=== PATIENT | female | born 1970 | race Caucasian/White ===

== ENCOUNTER 2018-03-14 12:11 | Outpatient (REF) | payer MEDICAID, SELFPAY ==
[2018-03-14 18:14] LABS: HCT 42.4 % (36.0-46.0); HGB 14.5 g/dL (12.0-15.5); Mean Corp. HGB Concentration 34.2 g/dL (32.0-36.0); Mean Corpuscular Hemoglobin 29.2 pg (27.0-33.0); Mean Corpuscular Volume 85.5 fL (80-95); Platelet Count 269 x1000/uL (130-400); RBC 4.96 m/cumm (4.00-5.20); RBC Distribution Width 13.4 % (11.7-14.6)
[2018-03-14 18:46] LABS: ALT 20 U/L (12-78); AST 15 U/L (15-37); Albumin 3.6 g/dL (3.4-5.0); Alkaline Phosphatase 96 U/L (46-116); Anion Gap 11.3 mmol/L (3-11); BUN 13 mg/dL (7-18); Bilirubin, Total 0.4 mg/dL (0.2-1.0); CO2 26.7 mmol/L (21.0-32.0); CREATININE 0.72 mg/dL (0.55-1.02); Calcium 9.7 mg/dL (8.5-10.1); Chloride 98 mmol/L (98-107); Glucose 268 mg/dL (70-100); Potassium 4.6 mmol/L (3.5-5.1); Sodium 136 mmol/L (136-145); Total Protein 7.2 g/dL (6.4-8.2); Vitamin B12 621 pg/mL (193-986)
== END 2018-03-14 12:31 ==
LOC: NCHCN 12:11
PROVIDERS: PCP Nurse Practitioner Family; Visit Provider Nurse Practitioner Family
DX: I10 Essential (primary) hypertension (principal); E11.65 Type 2 diabetes mellitus with hyperglycemia; F10.10 Alcohol abuse, uncomplicated
CPT/HCPCS: 80053; 85027; 82607

== ENCOUNTER 2018-04-07 18:16 | Outpatient (REF) | payer MEDICAID, SELFPAY | END 2018-04-07 18:36 | LOC: NCHCN 18:16 | PROVIDERS: PCP Nurse Practitioner Family; Visit Provider Nurse Practitioner Family | DX: H60.313 Diffuse otitis externa, bilateral (principal) | CPT/HCPCS: 87077; 87070; 87186 ==

== ENCOUNTER 2023-06-12 11:15 | Inpatient (IN) | payer MEDICAID, SELFPAY ==
[2023-06-12] VITALS (19 sets, daily range): BP systolic 111–168; BP diastolic 45–105; PULSE 76–101; RESP 15–24; TEMP 36–37; O2SAT 92–100; BMI 31.8
--- NOTE | 2023-06-12 11:30 | DI.CT_ITS ---
Exam(s) CT PELVIC W EXAM: CT PELVIC W CLINICAL HISTORY: R buttock abscess. TECHNIQUE: Imaging Protocol: Axial computed tomography images with coronal and sagittal reformatted images were created and reviewed. CONTRAST MATERIAL: Intravenous: Omnipaque 350 Contrast volume:structured data in ml Contrast route:I V - Oral: / no COMPARISON: No exams were available for comparison FINDINGS: Exam mildly limited by motion. Bladder:Romo catheter partially decompressing the bladder. No gross wall thickening. No stones.No e vidence of mass. Aorta: Yjwm-km-vwthrtmi atherosclerotic changes. Bowel: No obstruction or bowel wall thickening. Peritoneal cavity: No ascites, collection or mesenteric inflammatory response. Reproductive: Unremarkable. Bones: Degenerative changes at L5-S1. No bony destruction. Soft tissues: Extensive soft tissue air seen in the right buttock. There is marked skin thickening a nd edema in the subcutaneous fat. The findings extend over a roughly 20 centimeter area. There is n o involvement of the posteromedial buttock extending to the right perianal region. No abnormal gas c ollection within the pelvis. IMPRESSION: Extensive infection with large quantity of gas and edema within the inferomedial right buttock. Findings called to Dr. Noble of the emergency department. RADIATION DOSE DELIVERED: 544.43mGy.cm Total DLP DATA REPOSITORY: All CT scans at this facility are submitted to the National Radiology Data Registry (NRDR) Dose Index Registry (DIR) with the [employer] (A[employer]). RADIATION OPTIMIZATION: All CT scans at this facility use at least one of these dose optimization te chniques: automated exposure control; mA and/or kV adjustment per patient size (includes targeted exa ms where dose is matched to clinical indication); or iterative reconstruction.
--- NOTE | 2023-06-12 11:44 | W.ED.GENAD ---
Discharge Plan Disposition Patient Disposition: Admit to [facility] Condition: Serious Discharge Details Clinical Impression: Necrotizing fasciitis Attending Provider: Blaze Dooley Primary Care Provider: Unknown,Unknown ED Provider: Lily Huerta [facility] General Date/Time Provider Initiated Documentation: 06/12/23 11:19. HPI Narrative: Jennifer is a 52-year-old female with history of COPD and T2DM (currently not on any medication) who presents to the emergency department for evaluation of weakness and right buttock pain. She reports 5 days ago she noticed a spider bite on her right buttock, says it felt hot and warm. She did not look at it at that time, not quite sure how big it was when it first started but says it was painful to touch. It has been increasing in size since onset. Starting 3 days ago she has developed generalized weakness to the point where she is no longer able to get out of bed to get to the commode. She has been laying in bed for the last 3 days. She reports she has had limited p.o. intake due to lack of appetite, says she has been drinking some water and ivette daniela. She reports she has had chills/sweats, no recorded fevers. Denies URI symptoms, cough, shortness of breath, chest pain, nausea/vomiting, abdominal pain, change in bowel or bladder function. Related Data Home Medications Medication Instructions Recorded Confirmed Unknown [No Known Home Meds] 09/26/21 06/12/23 Allergies Allergy/AdvReac Type Severity Reaction Status Date / Time aspirin Allergy Intermediate lip Unverified 06/12/23 12:54 swelling Penicillins Allergy Intermediate lip Unverified 06/12/23 12:54 swelling duloxetine HCl AdvReac Severe suicidal Unverified 06/12/23 12:54 [From Cymbalta] ideations pregabalin [From Lyrica] AdvReac Severe suidial Unverified 06/12/23 12:54 ideations codeine AdvReac Mild Nausea Unverified 06/12/23 12:54 General Stated Complaint: GenMedical JESUS: 3 Review of Systems Narrative: see HPI Exam Const General: cooperative, disheveled and other (uncomfortable) Nutritional Appearance: obese Orientation: alert HENMT Mouth: other (tacky MM) Resp Effort & Inspection: normal respiratory effort and able to speak in complete sentences Auscultation: rhonchi (course lung sounds in all nicole) Cardio Rate: regular rate Rhythm: regular rhythm GI Inspection: normal to inspection and obesity Palpation: soft, not firm, no guarding, not rigid and nontender Back/Spine/Pelvis Pelvis: buttock swelling (large area of induration with warmth to R buttock along gluteal cleft) on the right Course Vital Signs Vital signs: Vital Signs Temperature 36.8 C 06/12/23 11:17 Pulse 101 H 06/12/23 11:17 Respiratory Rate 20 06/12/23 11:17 Blood Pressure 168/105 H 06/12/23 11:17 Pulse Oximetry 100 06/12/23 11:17 Temperature 36.8 C 06/12/23 11:17 Temperature Source Tympanic 06/12/23 11:17 Pulse 101 H 06/12/23 11:17 Respiratory Rate 18 06/12/23 11:35 Respiratory Effort Normal 06/12/23 11:35 Respiratory Depth Normal 06/12/23 11:35 Respiratory Pattern Normal 06/12/23 11:35 Blood Pressure 168/105 H 06/12/23 11:17 Blood Pressure Position Sitting 06/12/23 11:17 Pulse Oximetry 100 06/12/23 11:17 Oxygen Delivery Method Room Air 06/12/23 11:17 Oxygen Flow Rate 0 06/12/23 11:17 Pain Level 10 06/12/23 11:17 Lab/Test Results Lab/Test Results: 06/12/23 11:39 Blood Blood Culture - Pending 06/12/23 11:39 Blood Blood Culture - Pending Medical Decision Making Jennifer is a 52-year-old female with history of COPD and T2DM (currently not on any medication) who presents to the emergency department for evaluation of weakness and right buttock pain. She reports 5 days ago she noticed a spider bite on her right buttock, says it felt hot and warm. She did not look at it at that time, not quite sure how big it was when it first started but says it was painful to touch. It has been increasing in size since onset. Starting 3 days ago she has developed generalized weakness to the point where she is no longer able to get out of bed to get to the commode. She has been laying in bed for the last 3 days. She reports she has had limited p.o. intake due to lack of appetite, says she has been drinking some water and ivette daniela. She reports she has had chills/sweats, no recorded fevers. Denies URI symptoms, cough, shortness of breath, chest pain, nausea/vomiting, abdominal pain, change in bowel or bladder function. Physical exam remarkable for large erythematous tense area on right buttock comprising most of the buttock. No drainage. Area is warm to touch, very tender to palpation. 5 out of 5 muscle strength to lower extremities, sensation intact. Abdomen soft, nondistended, nontender to palpation. Easy work of breathing, coarse wheezes throughout. Normal heart sounds. Tacky mucus membranes. She was noted to be laying in her own stool and urine upon arrival to the ED. DDx includes but is not limited to abscess, necrotizing fasciitis, sepsis due to infection, viral illness I independently interpreted the following tests: CBC notable for leukocytosis with WBC 40.57. CMP notable for hyponatremia, NA 120. AG 15.4. Elevated BUN: creat ratio (31:1). Alk phosp elevated at 231. Lactate 2.1. UA notable for 20-50 WBCs with many bacteria, concerning for UTI. CT notable for gas and edema within the inferomedial R buttock. While in the emergency department Jennifer received IV fluids for rehydration and acetaminophen/morphine for discomfort. Vancomycin, aztreonam, and clindamycin given for empiric treatment of necrotizing fasciitis. Dr Noble also to bedside for pt evaluation. Dr Dooley, general surgeon consulted pt at bedside- pt to be taken to OR for treatment of necrotizing fasciitis with admission to ICU. Imaging Data Radiologic Study: Radiologist's impression: Exam(s) CT PELVIC W EXAM: CT PELVIC W CLINICAL HISTORY: R buttock abscess. TECHNIQUE: Imaging Protocol: Axial computed tomography images with coronal and sagittal reformatted images were created and reviewed. CONTRAST MATERIAL: Intravenous: Omnipaque 350 Contrast volume:structured data in ml Contrast route:IV - Oral: / no COMPARISON: No exams were available for comparison FINDINGS: Exam mildly limited by motion. Bladder:Romo catheter partially decompressing the bladder. No gross wall thickening. No stones.No evidence of mass. Aorta: [id number] atherosclerotic changes. Bowel: No obstruction or bowel wall thickening. Peritoneal cavity: No ascites, collection or mesenteric inflammatory response. Reproductive: Unremarkable. Bones: Degenerative changes at L5-S1. No bony destruction. Soft tissues: Extensive soft tissue air seen in the right buttock. There is marked skin thickening and edema in the subcutaneous fat. The findings extend over a roughly 20 centimeter area. There is no involvement of the posteromedial buttock extending to the right perianal region. No abnormal gas collection within the pelvis. IMPRESSION: Extensive infection with large quantity of gas and edema within the inferomedial right buttock. Findings called to Dr. Noble of the emergency department. 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 (Acute) Other noninfective acute otitis externa, bilateral (Acute) Tobacco use (Acute) Mixed hearing loss, bilateral (Acute) Medical History Chronic abscess of jaw COPD (chronic obstructive pulmonary disease) Depression Diabetes Hypertension Neuropathy Obesity Surgical History Incision & Drainage, Abscess or Hematoma left jaw-10/07 Social History Smoking/Tobacco Use Status: Current every day Tobacco Type: cigarettes Smoking risk assessment performed?: Yes Alcohol Intake: current Alcohol Intake frequency: 0-2 drinks per day Alcohol type: beer Drug use: Daily Substance use type: marijuana Housing: apartment Do you feel safe in your relationship?: Yes
[2023-06-12] MEDS: Acetaminophen 325 MG TAB 650 MG PO (11:48)
[2023-06-12 11:53] LABS: BE (Venous) -1 mmol/L (-2-3); HCO3 (Venous) 23 mmol/L (23-28); HCT 33.6 % (36.0-46.0); MCH 31.2 pg (27.0-33.0); MCHC 35.7 % (32.0-36.0); MCV 87 fL (80-95); MPV 9.8 fL (8.0-11.0); O2 Sat (Venous) 63 %; Platelet Count 449 10^3/uL (130-400); RBC 3.85 10^6/uL (3.93-5.22); RDW 13.9 % (11.7-14.6); RDW-SD 43.9 fL; TCO2 (Venous) 21 mmol/L (24-29); pCO2 (Venous) 36 mmHg (41-51); pH (Venous) 7.42 (7.31-7.41); pO2 (Venous) 33 mmHg
[2023-06-12 11:58] LABS: Lactate 2.1 mmol/L (0.6-1.4)
[2023-06-12 12:06] LABS: Absolute Monocyte Count 0.81 10^3/uL (0.1-0.8)
[2023-06-12 12:09] LABS: HCG Qual (Serum) Negative; WBC 40.57 10^3/uL (4.4-10.8)
[2023-06-12 12:12] LABS: ALT 17 U/L (14-59); AST 21 U/L (15-37); Albumin 1.9 g/dL (3.4-5.0); Alkaline Phosphatase 231 U/L (46-116); Anion Gap 15.4 mmol/L (3-11); BUN 31 mg/dL (7-18); Bilirubin, Total 0.7 mg/dL (0.2-1.0); CO2 22.6 mmol/L (21.0-32.0); Calcium 8.7 mg/dL (8.5-10.1); Chloride 82 mmol/L (98-107); Estimated GFR 67.78 (mL/min/1.73m2); Glucose 171 mg/dL (74-106); Potassium 3.9 mmol/L (3.5-5.1); Total Protein 6.9 g/dL (6.4-8.2)
[2023-06-12 12:13] LABS: Sodium 120 mmol/L (136-145)
[2023-06-12 12:15] LABS: Bilirubin Negative (Negative); Blood Trace-intact (Negative); Clarity Sl Cloudy (Clear); Glucose Negative (Negative); Ketones 15 mg/dL (Negative); Leukocyte Esterase Negative (Negative); Nitrite Negative (Negative)
[2023-06-12] MEDS: MORPHine 10 MG/ML VIAL 2 MG IVP (12:24)
--- NOTE | 2023-06-12 12:31 | W.PM.HP.N ---
Date of service: 06/12/23 Time of Service: 12:31 Assessment and Plan Assessment and plan (1) Necrotizing fasciitis: Status: Acute Assessment and plan: Clinically, the appears consistent with necrotizing fasciitis of the skin overlying the buttock. Leukocytosis and hyponatremia would also support that diagnosis in addition to severe sepsis. I explained the urgency of the situation, and the importance of incision and drainage of the wound. I also explained my concerns about how this tracks up towards the rectum. Broad-spectrum antibiotics have already been initiated, and emergent surgical debridement is the neck step. I explained to the patient this is a very severe problem, and may require multiple operations, including creation of a colostomy if the pelvic floor is involved. I think she has an understanding of what is happening, and I think she is capable of providing informed consent. Will make arrangements to move to the operating room soon as possible, and anticipate admission to the intensive care unit thereafter. History of Present Illness History of Present Illness Chief Complaint: Buttock wound Narrative: Jennifer is 52 years old. She comes to the emergency department with increasing right-sided buttock pain. She thinks it started about 4 days ago. She thinks there was a wound associated, which she describes as a spider bite. At first, was just a little bit swollen and painful, however over the past 48 to 72 hours, she has been nearly bedbound with difficulty walking, and general feeling of malaise. She has no appetite. She denies nausea or vomiting. She denies subjective fevers. She has type 2 diabetes, and she denies any medications for this. She also reports hypertension. She smokes tobacco. She is never had any abdominal surgery. Review of Systems Constitutional Constitutional: Reports difficulty sleeping, Reports fatigue, Denies fever(s), Reports poor appetite and Reports weakness Eyes Eyes: Reports system reviewed and no additional complaints, except as documented ENT Ears, Nose, Mouth, and Throat: Reports system reviewed and no additional complaints, except as documented Cardiovascular Cardiovascular: Denies chest pain and Denies dyspnea Respiratory Respiratory: Denies chest congestion, Denies cough and Denies dyspnea Gastrointestinal Gastrointestinal: Denies abdominal pain, Denies change in stool character, Denies constipation, Denies nausea and Denies vomiting Musculoskeletal Musculoskeletal: Reports abnormal gait and Reports myalgias Neurologic Neurologic: Reports abnormal gait and Reports weakness Psychiatric Psychiatric: Reports change in appetite Endocrine Endocrine: Reports fatigue Hematologic/Lymphatic Hematologic/Lymphatic: Denies easy bleeding and Denies easy bruising 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 (Acute) Other noninfective acute otitis externa, bilateral (Acute) Tobacco use (Acute) Mixed hearing loss, bilateral (Acute) Medical History Chronic abscess of jaw COPD (chronic obstructive pulmonary disease) Depression Diabetes Hypertension Neuropathy Obesity Surgical History Incision & Drainage, Abscess or Hematoma left jaw-10/07 Social History Smoking/Tobacco Use Status: Current every day Tobacco Type: cigarettes Smoking risk assessment performed?: Yes Alcohol Intake: current Alcohol Intake frequency: 0-2 drinks per day Alcohol type: beer Drug use: Daily Substance use type: marijuana Housing: apartment Do you feel safe in your relationship?: Yes Meds Allergies and Home Medications Allergies Allergy/AdvReac Type Severity Reaction Status Date / Time aspirin Allergy Intermediate lip Unverified 06/12/23 12:54 swelling Penicillins Allergy Intermediate lip Unverified 06/12/23 12:54 swelling duloxetine HCl AdvReac Severe suicidal Unverified 06/12/23 12:54 [From Cymbalta] ideations pregabalin [From Lyrica] AdvReac Severe suidial Unverified 06/12/23 12:54 ideations codeine AdvReac Mild Nausea Unverified 06/12/23 12:54 Home Medications Medication Instructions Recorded Confirmed Type Unknown [No Known Home Meds] 09/26/21 06/12/23 History Exam Const General: cooperative, ill appearing and lethargic Nutritional Appearance: overweight Orientation: alert and awake [facility] Head: normal to inspection Ears: external ears normal and hearing grossly impaired Eyes General: appearance normal, both eyes and all related structures Neck Neck: normal visual inspection, full ROM and no lymphadenopathy Resp Effort & Inspection: decreased respiratory effort Auscultation: clear to auscultation bilaterally Cardio Rate: regular rate Rhythm: regular rhythm Skin Other: The right buttock is erythematous and fluctuant. There is subcutaneous crepitus. There is 1 dark hemorrhagic appearing bullae. There is no obvious discharge. Perineum is soft and normal-appearing. Labia are normal-appearing. Results Labs 06/12/23 11:40 06/12/23 11:40 Labs: Laboratory Results - last 24 hr 06/12/23 06/12/23 11:40 12:00 VBG pH 7.42 H VBG pCO2 36 L VBG pO2 33 VBG HCO3 23 VBG Total CO2 21 L VBG O2 Saturation 63 VBG Base Excess -1 VBG Lactate 2.1 H Sodium 120 L* Potassium 3.9 Chloride 82 L Carbon Dioxide 22.6 Anion Gap 15.4 H BUN 31 H Creatinine 1.0 Est GFR (CKD-EPI 2020) 67.78 Glucose 171 H Calcium 8.7 Total Bilirubin 0.7 AST 21 ALT 17 Alkaline Phosphatase 231 H Total Protein 6.9 Albumin 1.9 L Serum HCG, Qual Negative Urine Color Yellow Urine Clarity Sl Cloudy Urine pH 5.0 Ur [address] [place] 1.010 Urine Protein 100 H Urine Ketones 15 H Urine Blood Trace-intact H Urine Nitrite Negative Urine Bilirubin Negative Urine Urobilinogen 1.0 H Ur Leukocyte Esterase Negative Urine Glucose Negative Last Vital Signs Temp 98.3 F 06/12/23 11:17 Pulse 101 H 06/12/23 11:17 Resp 18 06/12/23 11:35 BP 168/105 H 06/12/23 11:17 Pulse Ox 100 06/12/23 11:17 Time Spent Time spent with Patient: 55-74 minutes Time was spent: preparing to see the patient(eg.review tests), obtaining and/or reviewing separately otained hiistory, referring, communicating with other health care companion, indepentently interpreting results, counseling the patient and care coordination
[2023-06-12] MEDS: Omnipaque 350 MG/ML 500 ML BTL-Imaging package IJ (12:34)
[2023-06-12 12:40] LABS: WBC 20-50 HPF (0-5)
[2023-06-12 12:41] LABS: Bacteria Many HPF (Negative); Epithelial Cells Rare HPF (Negative); Other Cells Negative (Negative)
[2023-06-12 12:42] LABS: C & S Indicated? Yes; Casts Negative LPF (Negative); Crystals Negative HPF (Negative); Mucus Negative (Negative)
[2023-06-12] MEDS: Normal Saline - Diluent 50 ML VIAL IJ (12:42)
[2023-06-12 12:43] LABS: Absolute Lymphocyte Count 3.65 10^3/uL (1.2-3.4); Absolute Neutrophil Count 36.11 10^3/uL (1.2-6.7); Atypical Lymphocytes % 1; Bands % 4
[2023-06-12] MEDS: Normal Saline Flush 10 ML SYR IJ (12:43)
[2023-06-12 12:44] LABS: Procalcitonin 1.6 ng/mL
[2023-06-12 12:44] LABS: Diff Comment Manual Differential; RBC Morphology Normal
[2023-06-12] MEDS: VANCOMYCIN/WATER (PEG) 1.25 GM/250 ML BAG IVPB (12:47)
[2023-06-12] MEDS: Normal Saline 1,000 ML 500 ML IV (12:48)
[2023-06-12] MEDS: CLINDAMYCIN 900 MG/50 ML BAG 50 MG IVPB (12:48)
--- NOTE | 2023-06-12 12:50 | ED.PROG_ITS ---
Date of service: 06/12/23 Time of Service: 12:50 Medical Decision Making I was asked to evaluate the patient by advanced practitioner Lily, please refer to her HPI, physical exam, assessment and plan. Patient presents with gluteal cleft lesion on the right, concern for potential necrotizing fasciitis. She is a diabetic. Patient's vital signs are notably stable, exam demonstrates evidence of a large fluctuant area on her right gluteal cleft, no subcutaneous crepitus I can palpate, however the nature of the fluctuance is highly concerning. There is also bruising on the distal aspect. Differential is high for necrotizing fasciitis in this scenario. Isolated abscess is a less likely scenario. Will recommend starting broad-spectrum antibiotics, patient does have a notable penicillin allergy, will start with vancomycin, aztreonam, and clindamycin for antitoxin limitation. CT scan will be ordered. Laboratory workup is returned, patient has a white count of 40, and is hyponatremic, lactate is only 2.1, however with a combination of the elevated white count, notable left shift, 4 bands, and the hyponatremia differential is very concerning for active necrotizing fasciitis. Will reach out to Dr. Dooley for emergent surgical options and debridement. 12:[address] scan shows evidence of notable gas, confirming diagnosis. Dr. Dooley has evaluated the patient will bring her emergently to the OR for further drainage. I agree with the current plan of management at the time of signing. Quality:SDOH Health Related Social Needs: No Data to Display Critical Care Time Critical Care Time Critical Care Time: Yes Total Critical Care Time: 90 Attestation: Upon my evaluation, this patient had a high probability of imminent or life- threatening deterioration, which required my direct attention, intervention, and personal management. I have personally provided 90 minutes of critical care time exclusive of time spent on separately billable procedures. Time includes review of laboratory data, radiology results, discussion with consultants, and monitoring for potential decompensation. Interventions were performed as documented. Discharge Plan Disposition Patient Disposition: Admit to [facility] Condition: Serious Discharge Details Chief Complaint: GenMedical Clinical Impression: Necrotizing fasciitis Primary Care Provider: Unknown,Unknown ED Provider: Lily Huerta Home Meds and New Rx's Prescriptions: No Action No Known Home Meds
--- NOTE | 2023-06-12 13:02 | ANES.PREOP_ITS ---
General Info Date of Service Date Performed: 06/12/23 Height: 5 ft 3 in Weight: 81.647 kg Body Mass Index (BMI): 31.8 Surgical Procedure: Operation Date: 06/12/23 13:40 Proposed Procedure Side Surgeon p I&D Buttock Right Blaze Dooley MD Meds Allergies and Home Medications Allergies Allergy/AdvReac Type Severity Reaction Status Date / Time aspirin Allergy Intermediate lip Unverified 06/12/23 12:54 swelling Penicillins Allergy Intermediate lip Unverified 06/12/23 12:54 swelling duloxetine HCl AdvReac Severe suicidal Unverified 06/12/23 12:54 [From Cymbalta] ideations pregabalin [From Lyrica] AdvReac Severe suidial Unverified 06/12/23 12:54 ideations codeine AdvReac Mild Nausea Unverified 06/12/23 12:54 Home Medication Medication Instructions Recorded Unknown [No Known Home Meds] 09/26/21 Current Visit Medications: Current Medications Generic Name Dose Route Start Last Admin Trade Name Freq PRN Reason Stop Dose Admin Sodium Chloride 1,000 mls @ 500 mls/hr 06/12/23 11:39 06/12/23 12:48 Saline 1000ml Bag IV 06/12/23 13:38 500 mls/hr BOLUS ONE Administration Vancomycin/PEG/NADA/Lysine/Water 1.25 gm in 250 mls @ 166.667 mls/hr 06/12/23 12:30 06/12/23 12:47 Vancocin Injection IVPB 06/12/23 13:59 166.667 mls/hr NOW ONE Administration Iohexol 500 ml 06/12/23 12:45 06/12/23 12:34 Omnipaque 350 Mg/Ml 500 Ml Btl-Imaging Package IJ 07/12/23 23:59 100 ml DIRECTED JANNA Administration Sodium Chloride 50 ml 06/12/23 12:45 06/12/23 12:42 Normal Saline - Diluent 50 Ml Vial IJ 50 ml .FOR DI USE JANNA Administration Sodium Chloride 0 ml 06/12/23 12:43 06/12/23 12:43 Normal Saline Flush 10 Ml Syr IJ 10 ml PRN PRN Administration PFSH Active Problems Active Problems: Problem Status Onset Code Necrotizing fasciitis M72.6 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 Impacted cerumen, left ear H61.22 Chronic otitis externa of right ear H60.61 Chronic serous otitis media H65.20 Chronic dysfunction of both eustachian tubes H69.83 Chronic otitis externa of left ear H60.62 Impacted cerumen, bilateral H61.23 Chronic diffuse otitis externa of both ears H60.313 Otorrhea, right ear H92.11 Mass of left ear canal H93.8X2 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 H66.13 Other noninfective acute otitis externa, bilateral H60.593 Tobacco use Z72.0 Mixed hearing loss, bilateral H90.6 Medical History Medical History Chronic abscess of jaw COPD (chronic obstructive pulmonary disease) Depression Diabetes Hypertension Neuropathy Obesity Surgical History Surgical History Incision & Drainage, Abscess or Hematoma left jaw-10/07 Tobacco Smoking/Tobacco Use Status: Current every day Tobacco Type: cigarettes Alcohol Alcohol Intake: current Alcohol intake frequency: 0-2 drinks per day Alcohol type: beer Substance Use Substance use: Daily Substance use type: marijuana Vital Signs and Lab Results Vital Signs Most Recent Vital Signs in EMR: Most Recent Vital Signs Temp Pulse Resp BP Pulse Ox 36.8 C 95 H 20 156/45 H 99 06/12/23 12:58 06/12/23 12:58 06/12/23 12:58 06/12/23 12:57 06/12/23 12:58 Point of Care Results Point of Care Results: POC- Test(urine) Negative 06/12/23 12:24 Lab Results 06/12/23 11:40 06/12/23 11:40 Blood Type / Crossmatch: 2 No Data to Display Complete Blood Count: 2 White Blood Count 40.57 10^3/uL (4.4-10.8) H* 06/12/23 11:40 Red Blood Count 3.85 10^6/uL (3.93-5.22) L 06/12/23 11:40 Hemoglobin 12.0 g/dL (11.2-15.7) 06/12/23 11:40 Hematocrit 33.6 % (36.0-46.0) L 06/12/23 11:40 Platelet Count 449 10^3/uL (130-400) H 06/12/23 11:40 Venous Blood Lactate 2.1 mmol/L (0.6-1.4) H 06/12/23 11:40 Complete Metabolic Panel: 2 Sodium 120 mmol/L (136-145) L* 06/12/23 11:40 Potassium 3.9 mmol/L (3.5-5.1) 06/12/23 11:40 Chloride 82 mmol/L (98-107) L 06/12/23 11:40 Carbon Dioxide 22.6 mmol/L (21.0-32.0) 06/12/23 11:40 BUN 31 mg/dL (7-18) H 06/12/23 11:40 Creatinine 1.0 mg/dL (0.55-1.02) 06/12/23 11:40 Est GFR (CKD-EPI 2020) 67.78 (mL/min/1.73m2) 06/12/23 11:40 Calcium 8.7 mg/dL (8.5-10.1) 06/12/23 11:40 Albumin 1.9 g/dL (3.4-5.0) L 06/12/23 11:40 Glucose 171 mg/dL (74-106) H 06/12/23 11:40 Liver Function Panel: 2 Alanine Aminotransferase (ALT/SGPT) 17 U/L (14-59) 06/12/23 11: 40 Aspartate Amino Transf (AST/SGOT) 21 U/L (15-37) 06/12/23 11:40 Coagulation Panel: 2 No Data to Display Cardiac Panel: 2 No Data to Display Arterial Blood Gas: 2 No Data to Display Venous Blood Gas: 2 Venous Blood pH 7.42 (7.31-7.41) H 06/12/23 11:40 Venous Blood Partial Pressure O2 33 mmHg 06/12/23 11:40 Venous Blood Partial Pressure CO2 36 mmHg (41-51) L 06/12/23 11 :40 Venous Blood Oxygen Saturation 63 % 06/12/23 11:40 Venous Blood HCO3 23 mmol/L (23-28) 06/12/23 11:40 Venous Blood Base Excess -1 mmol/L (-2-3) 06/12/23 11:40 Venous Blood Total Carbon Dioxide 21 mmol/L (24-29) L 06/12/23 11:40 Pancreas Panel: 2 No Data to Display Thyroid Panel: 2 No Data to Display Infectious Disease: 2 No Data to Display Blood Cultures: 2 No Data to Display Toxicology Panel: 2 No Data to Display Panel: 2 Serum HCG, Qualitative Negative 06/12/23 11:40 Anesthesia Assessment and Plan Anesthesia History Personal History: No History of Anesthesia Complications Family History: No Family History of Anesthesia Complications Exercise Tolerance Exercise Tolerance: Metabolic Equivalents>4 Pertinent Negatives Pertinent Negatives: No Symptoms of GERD, No Major Cardiovascular Symptoms or Complaints and No History of CVA/TIA Cardiac & Pulmonary Exam Cardiac Exam: Normal S1/S2 Heart Sounds Pulmonary Exam: Clear Bilateral Breath Sounds Implantable Cardiac Device Does patient have a Pacemaker or an ICD?: No Airway Exam Known Difficult Airway: No Mallampati Class: 2 Mouth Opening: Normal (> 3cm) Thyromental Distance: Greater than 3 cm Neck Range of Motion: Full ROM Neck Circumference: Normal Teeth Condition: Removable Dentures/Plates Upper and Removable Dentures/Plates Lower ASA Classification ASA Score: ASA 3 Emergency Case?: Yes NPO Status NPO Status: NPO Clears >2 hours, Solids >8 hours Status Status: Negative HCG Anesthesia Plan Resuscitation Status: Full Code Anesthesia Technique: General Anesthesia Airway Planned: Endotracheal Tube Monitors Used: Standard Monitors, Arterial Line and Central Line
[2023-06-12] MEDS: Normal Saline 1,000 ML 30 ML IV (13:51)
[2023-06-12] MEDS: Normal Saline Flush 10 ML SYR IVP ×2 (15:57→23:55)
[2023-06-12] MEDS: HYDROmorphone 2 MG/ML SYR 1 MG IVP ×2 (15:58→19:38)
[2023-06-12] MEDS: Ketorolac 15 MG/ML VIAL IVP (15:59)
[2023-06-12] MEDS: Lactated Ringers 1,000 ML 100 ML IV (16:00)
[2023-06-12] MEDS: Enoxaparin 40 MG/0.4 ML SYR SC (16:00)
[2023-06-12 16:17] LABS: Anion Gap 14.1 mmol/L (3-11); BUN 29 mg/dL (7-18); CO2 20.9 mmol/L (21.0-32.0); CREATININE 0.8 mg/dL (0.55-1.02); Calcium 7.9 mg/dL (8.5-10.1); Chloride 88 mmol/L (98-107); Glucose 177 mg/dL (74-106); Potassium 3.8 mmol/L (3.5-5.1)
[2023-06-12 16:21] LABS: Sodium 123 mmol/L (136-145)
--- NOTE | 2023-06-12 16:34 | W.PM.OP ---
Date of service: 06/12/23 Time of Service: 15:36 Operative Note Operative Note DATE OF PROCEDURE: 06/12/23 PRE-OP DIAGNOSIS: Necrotizing fasciitis POST-OP DIAGNOSIS: same PROCEDURE: Incision, drainage, and debridement of right buttock necrotizing fasciitis SURGEON: Blaze Dooley ANESTHESIA TYPE: Local By Surgeon and General LMA/ETT Refer to Anesthesia Record ESTIMATED BLOOD LOSS: 25 PATHOLOGY: other (Gram stain and culture of right buttock necrotizing fasciitis) COMPLICATIONS: None Patient was transported to: ICU Patient's condition: critical Indications: Miah is a 52-year-old woman who comes to the hospital 4 days of increasing buttock pain. Physical exam raise a concern for necrotizing fasciitis. She had a white blood cell count of 40,000, and hyponatremia. She underwent a CT scan that demonstrated infiltration of the soft tissues of the right buttock extending towards the rectum with a significant amount of subcutaneous emphysema and inflammation. She is brought to the operating room urgently for incision and drainage of the wound. Findings: Loculated necrotizing soft tissue infection of the right buttock Procedure Description: After the induction of general endotracheal anesthesia, the patient was moved onto the operating room table, and placed in the left lateral decubitus position. Great care was taken to pad and support her appropriately. Next, the the right buttock was prepped from the right hip down to the left buttock. The prep was continued down onto the posterior portion of the thigh and the perineum. Patient was then draped. Started with a anorectal examination. There are some perianal skin tags, and 1 small portion of the soft tissue that raises some concern for condyloma. Digital rectal exam was performed. No masses were appreciated. I then changed my gloves, and turned my attention to the right buttock abscess. I tried to establish as much of field block as I could using local anesthetic with epinephrine. Next, I sharply incised the central point of fluctuance which coincided with a small hemorrhagic bullae. There was a large volume drainage of foul-smelling dishwater type purulent fluid. Specimens were obtained for Gram stain and culture. Next, using my finger, I gently palpated the wound. There were loculations extending throughout the soft tissue that were easily lysed. The skin of the buttock was undermined laterally for several centimeters. Next, using electrocautery, I excised a portion of the devitalized skin and subcutaneous soft tissues. There was thick purulent fibrinous exudate on the underlying fat and subcutaneous tissues. Using a combination of blunt dissection, as well as electrocautery, I debrided back to bleeding viable tissue. The wound tracks towards the rectum, but I do not see any obvious signs of rectal wall involvement. Once the tissue was grossly debrided, I used a combination of hydrogen peroxide and saline solution to irrigate the bed of the wound is clean as I could. Dimensions of the wound are approximately 10 cm top to bottom by 10 cm left to right by approximately 8 cm at its greatest depth, although the bottom of the wound is quite difficult to measure given irregular contour of it. Once this was complete, I packed the wound with Betadine soaked Curlex. Next, I used a Flexi-Seal rectal management device to help promote drainage of the rectal vault and to help manage stool. This was placed according to the onboarding specialist's instructions without any difficulty. The rectum was irrigated with approximately 100 mL of sterile water. ABD pads were then placed on top of the Curlex, and secured in place with tape. The patient was then rolled back to the supine position on a hospital bed for extubation. She was then transferred up to the surgical intensive care unit for ongoing treatment of severe sepsis.
[2023-06-12] MEDS: Insulin Aspart 300 UNITS/3 ML PEN SC ×2 (17:46→21:31)
--- NOTE | 2023-06-12 18:18 | NUR.NOTE ---
Nursing Note: Patient reports having left arm and left leg weakness and tingling on March 282023. She states she did not come to the hospital for evaluation when this happened. She reports her left extremities have been weak and intermittently tingly since March 282023.
[2023-06-12] MEDS: CLINDAMYCIN 600 MG/50 ML BAG 100 MG IVPB (19:37)
--- NOTE | 2023-06-12 19:37 | W.ANESPOSTOP ---
Postoperative Evaluation Date, Time and Location Date Performed: 06/12/23 Time Performed: 15:10 Patient Location: Intensive Care Unit Vital Signs Most Recent Imported Vital Signs: Most Recent Vital Signs Temp Pulse Resp BP Pulse Ox 37.0 C 86 15 111/67 98 06/12/23 15:30 06/12/23 19:02 06/12/23 19:02 06/12/23 19:02 06/12/23 19:02 Pain Score Most Recent Pain Score: Most Recent Pain Score Pain Level 4 06/12/23 16:59 Assessment Mental Status: Awake (Alert & Oriented to Patient Baseline) Airway and Respiratory Function: Patent airway with normal (patient baseline) respiratory exam Cardiovascular Function: Hemodynamically Stable Hydration Status: Adequately Hydrated Nausea & Vomiting: No Nausea or Vomiting Pain: Pain is tolerable per patient Peripheral Nerve Block: Patient did not receive a nerve block
[2023-06-12] MEDS: Polyethylene Glycol 3350 17 GM PACKET PO (19:38)
[2023-06-12] MEDS: Acetaminophen 500 MG TAB 1000 MG PO (19:38)
[2023-06-12 19:53] LABS: Anion Gap 11.1 mmol/L (3-11); BUN 34 mg/dL (7-18); CO2 20.9 mmol/L (21.0-32.0); CREATININE 1.1 mg/dL (0.55-1.02); Calcium 7.8 mg/dL (8.5-10.1); Chloride 86 mmol/L (98-107); Estimated GFR 60.46 (mL/min/1.73m2); Glucose 311 mg/dL (74-106); Potassium 4.7 mmol/L (3.5-5.1)
[2023-06-12 19:55] LABS: Sodium 118 mmol/L (136-145)
[2023-06-12] MEDS: Normal Saline 1,000 ML 100 ML IV (20:47)
[2023-06-12] MEDS: Normal Saline 500 ML IV (20:51)
[2023-06-12] MEDS: VANCOMYCIN/WATER (PEG) 1 GM/200 ML BAG IV (23:29)
[2023-06-12 23:45] LABS: Anion Gap 11.1 mmol/L (3-11); BUN 35 mg/dL (7-18); CO2 22.9 mmol/L (21.0-32.0); Calcium 7.7 mg/dL (8.5-10.1); Chloride 85 mmol/L (98-107); Estimated GFR 67.78 (mL/min/1.73m2); Glucose 280 mg/dL (74-106)
[2023-06-12 23:47] LABS: Sodium 119 mmol/L (136-145)
[2023-06-13] VITALS (60 sets, daily range): BP systolic 85–146; BP diastolic 37–92; PULSE 68–90; RESP 12–30; TEMP 36–36.7; O2SAT 90–100; BMI 34.2
[2023-06-13] MEDS: HYDROmorphone 2 MG/ML SYR 1 MG IVP ×3 (00:49→19:53)
[2023-06-13] MEDS: Ketorolac 15 MG/ML VIAL IVP ×2 (04:17→16:17)
[2023-06-13] MEDS: Acetaminophen 500 MG TAB 1000 MG PO ×2 (04:17→20:31)
[2023-06-13] MEDS: CLINDAMYCIN 600 MG/50 ML BAG 100 MG IVPB ×3 (04:19→20:34)
[2023-06-13 06:03] LABS: Abs Immature Grans 1.12 10^3/uL (0.0-0.06); HCT 27.1 % (36.0-46.0); HGB 9.6 g/dL (11.2-15.7); MCH 31.5 pg (27.0-33.0); MCHC 35.4 % (32.0-36.0); MCV 89 fL (80-95); MPV 9.7 fL (8.0-11.0); Platelet Count 339 10^3/uL (130-400); RBC 3.05 10^6/uL (3.93-5.22); RDW 14.2 % (11.7-14.6); RDW-SD 46.1 fL
[2023-06-13 06:24] LABS: Anion Gap 10.2 mmol/L (3-11); BUN 34 mg/dL (7-18); CO2 21.8 mmol/L (21.0-32.0); CREATININE 0.9 mg/dL (0.55-1.02); Calcium 7.6 mg/dL (8.5-10.1); Chloride 88 mmol/L (98-107); Estimated GFR 76.92 (mL/min/1.73m2); Glucose 223 mg/dL (74-106)
[2023-06-13 06:26] LABS: Sodium 120 mmol/L (136-145)
[2023-06-13 06:29] LABS: WBC 34.52 10^3/uL (4.4-10.8)
[2023-06-13 06:30] LABS: Absolute Lymphocyte Count 0.69 10^3/uL (1.2-3.4); Absolute Monocyte Count 1.04 10^3/uL (0.1-0.8); Absolute Neutrophil Count 32.45 10^3/uL (1.2-6.7); Myelocytes % 1
[2023-06-13 06:31] LABS: Diff Comment Manual Differential; RBC Morphology Normal
[2023-06-13] MEDS: Normal Saline 1,000 ML 100 ML IV ×2 (06:58→20:31)
--- NOTE | 2023-06-13 08:25 | INITIAL_ITS ---
Date of service: 06/13/23 Time of Service: 08:25 Care Management Initial Assmt Initial Assessment REASON FOR HOSPITALIZATION:: necrotizing fasciitis PREVIOUS FUNCTIONAL STATUS/SOCIAL/FAMILY SUPPORTS:: Jennifer lives in an apartment in [place] with her Teja. She has 3 adult children but is not in regular contact with them. 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 She uses a walker for ambulation and is independent with ADLs and self care. CURRENT FUNCTIONAL STATUS:: Earle was lying in bed when CM met with her. She was polite but initially was not overly talkative. Earle does not have a primary care physician and has not been to the doctors in many years. She informed CM that she used to see someone at [facility] but is not sure if she is still active with their practice. Earle described an episode that occurred in March that has not been evaluated. She stated that one morning she sat on the side of her bed and realized that her left arm and leg were weak. She has had difficulty with ambulation since and now uses a walker. CM asked if she had sought medical care at the time but she stated that she did not. Earle went to the OR again this afternoon for further debridement of her wound. Per her nurse in the ICU, she will be transferred to [facility] [place] [place] when a bed becomes available. ADVANCE DIRECTIVES:: none Has patient been provided with info about the portal/API?: Yes Did the patient sign up for the portal?: No CODE STATUS:: Full Code INSURANCE COVERAGE / FINANCIAL ISSUES:: Medicaid CURRENT HOME/COMMUNITY SERVICES/EQUIPMENT:: uses a walker and has hearing aides PRIMARY CARE PHYSICIAN:: none currently past patient at [facility] POTENTIAL DISCHARGE NEEDS:: follow up with PCP and plan of care PATIENT/FAMILY EDUCATION NEEDS:: Review of discharge instructions, wound care, medications, limitations, follow up plan, discuss Ask me Three. TRANSPORTATION:: to be determined by disposition PLAN:: Anticipate Jennifer will be transferred to [facility] [place] [place] for further treatment of her necrotizing fasciitis. She will transport via EMS coordinated by nursing sanding supervisor. CM will follow and continue to support discharge planning. 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 (Acute) Other noninfective acute otitis externa, bilateral (Acute) Tobacco use (Acute) Mixed hearing loss, bilateral (Acute) Medical History Chronic abscess of jaw COPD (chronic obstructive pulmonary disease) Depression Diabetes Hypertension Neuropathy Obesity Surgical History Incision & Drainage, Abscess or Hematoma left jaw-10/07 Social History Smoking/Tobacco Use Status: Current every day Tobacco Type: cigarettes Smoking risk assessment performed?: Yes Alcohol Intake: current Alcohol Intake frequency: 0-2 drinks per day Alcohol type: beer Drug use: Daily Substance use type: marijuana Housing: apartment Do you feel safe in your relationship?: Yes SDOH(Care Management) Screening Will the Patient Participate in the Screening?: Yes Do you worry about having a steady place to live?: no Problems where you live: pests such as bugs, ants or mice, mold, lead paints of pipes and lack of heat In the past 12 months, have you had to go without electric, gas, oil or water in your home?: no Have you or anyone in your house had to go without enough food to eat?: no Has lack of transportation kept you from medical appointments or from doing things needed for daily living?: yes Has anyone in your support network made you feel unsafe for any reason?: no Health Related Social Needs Health related social needs: inadequate housing(Z59.1) and transportation insecurity(Z59.82)
[2023-06-13] MEDS: VANCOMYCIN/WATER (PEG) 1 GM/200 ML BAG IV (12:50)
--- NOTE | 2023-06-13 13:09 | ANES.PREOP_ITS ---
General Info Date of Service Date Performed: 06/13/23 Height: 5 ft 3 in Weight: 87.8 kg Body Mass Index (BMI): 34.2 Surgical Procedure: Operation Date: 06/12/23 13:40 Proposed Procedure Side Surgeon p I&D Buttock Right Blaze Dooley MD Actual Procedure Side Surgeon p I&D Buttock Right Blaze Dooley MD Pre-Op Diagnosis Post-Op Diagnosis Debridement Necrotizing Fasciitis Debridement Necrotizing Fasciitis Operation Date: 06/13/23 14:10 Proposed Procedure Side Surgeon p I&D Buttock Right Blaze Dooley MD Meds Allergies and Home Medications Allergies Allergy/AdvReac Type Severity Reaction Status Date / Time aspirin Allergy Intermediate lip Unverified 06/12/23 12:54 swelling Penicillins Allergy Intermediate lip Unverified 06/12/23 12:54 swelling duloxetine HCl AdvReac Severe suicidal Unverified 06/12/23 12:54 [From Cymbalta] ideations pregabalin [From Lyrica] AdvReac Severe suidial Unverified 06/12/23 12:54 ideations codeine AdvReac Mild Nausea Unverified 06/12/23 12:54 Home Medication Medication Instructions Recorded Unknown [No Known Home Meds] 09/26/21 Current Visit Medications: Current Medications Generic Name Dose Route Start Last Admin Trade Name Freq PRN Reason Stop Dose Admin Acetaminophen 1,000 mg 06/12/23 20:00 06/13/23 12:04 Acetaminophen 500 Mg Tab PO Not Given Q8H JANNA Albuterol Sulfate 2.5 mg 06/12/23 15:36 Albuterol 2.5 Mg/3 Ml Inh Soln Vial UPD Q4H PRN PRN Dextrose 0 gm 06/12/23 15:36 Glucose Oral Gel 15 Gm/37.5 Gm Tube PO DIRECTED PRN Dextrose/Water 0 gm 06/12/23 15:36 Dextrose 50%-Water 25 Gm/50 Ml Syr IVP DIRECTED PRN Enoxaparin Sodium 40 mg 06/12/23 16:00 06/12/23 16:00 Enoxaparin 40 Mg/0.4 Ml Syr SC 40 mg Q24H JANNA Administration Hydromorphone HCl 1 mg 06/12/23 15:36 06/13/23 00:49 Hydromorphone 2 Mg/Ml Syr IVP 1 mg Q4H PRN PRN Administration Vancomycin/PEG/NADA/Lysine/Water 1 gm in 200 mls @ 200 mls/hr 06/13/23 00:00 06/13/23 00:29 Vancocin Injection IV Infused Q12H [facility] Infusion Clindamycin Phosphate/Dextrose 600 mg in 50 mls @ 100 mls/hr 06/12/23 20:00 06/13/23 12:07 Cleocin In D5w IVPB 100 mls/hr Q8H [facility] Administration Aztreonam 1,000 mg/ Sodium 100 mls @ 200 mls/hr 06/12/23 22:00 06/13/23 06:37 Chloride IVPB Infused Q8H [facility] Infusion Sodium Chloride 1,000 mls @ 100 mls/hr 06/12/23 20:30 06/13/23 06:58 Saline 1000ml Bag IV 100 mls/hr INFUSION [facility] Administration Sodium Chloride 500 mls @ 0 mls/hr 06/12/23 20:46 06/12/23 20:51 Saline 500ml Bag IV 1 mls/hr PRN PRN Administration As Directed IV Miscellaneous Supplies 1 each 06/12/23 15:36 Iv Access IV DIRECTED [facility] Insulin Aspart 0 units 06/12/23 22:00 06/13/23 09:41 Insulin Aspart 300 Units/3 Ml Pen SC Not Given Q6H [facility] Protocol Ketorolac Tromethamine 15 mg 06/12/23 15:36 06/13/23 04:17 Ketorolac 15 Mg/Ml Vial IVP 06/17/23 15:35 15 mg Q6H PRN PRN Administration Nicotine 14 mg 06/13/23 08:30 06/13/23 09:42 Nicotine 14 Mg/24 Hr Patch TD Not Given DAILY [facility] Ondansetron HCl 4 mg 06/12/23 15:36 Ondansetron 4 Mg/2 Ml Vial IVP Q4H PRN PRN Polyethylene Glycol 17 gm 06/12/23 20:00 06/13/23 09:41 Polyethylene Glycol 3350 17 Gm Packet PO Not Given BID [facility] Simethicone 80 mg 06/12/23 15:36 Simethicone 80 Mg Chew PO Q4H PRN PRN Sodium Chloride 0 ml 06/12/23 15:36 06/12/23 23:55 Normal Saline Flush 10 Ml Syr IVP 40 ml PRN PRN Administration Sodium Chloride 0 ml 06/12/23 20:00 06/13/23 09:40 Normal Saline Flush 10 Ml Syr IVP Not Given BID JANNA Sodium Chloride 0 ml 06/12/23 15:36 Normal Saline 10 Ml Vial IJ DIRECTED PRN PFSH Active Problems Active Problems: Problem Status Onset Code Necrotizing fasciitis M72.6 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 Impacted cerumen, left ear H61.22 Chronic otitis externa of right ear H60.61 Chronic serous otitis media H65.20 Chronic dysfunction of both eustachian tubes H69.83 Chronic otitis externa of left ear H60.62 Impacted cerumen, bilateral H61.23 Chronic diffuse otitis externa of both ears H60.313 Otorrhea, right ear H92.11 Mass of left ear canal H93.8X2 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 H66.13 Other noninfective acute otitis externa, bilateral H60.593 Tobacco use Z72.0 Mixed hearing loss, bilateral H90.6 Medical History Medical History Chronic abscess of jaw COPD (chronic obstructive pulmonary disease) Depression Diabetes Hypertension Neuropathy Obesity Surgical History Surgical History Incision & Drainage, Abscess or Hematoma left jaw-10/07 Tobacco Smoking/Tobacco Use Status: Current every day Tobacco Type: cigarettes Alcohol Alcohol Intake: current Alcohol intake frequency: 0-2 drinks per day Alcohol type: beer Substance Use Substance use: Daily Substance use type: marijuana Vital Signs and Lab Results Vital Signs Most Recent Vital Signs in EMR: Most Recent Vital Signs Temp Pulse Resp BP Pulse Ox 36.7 C 79 15 129/68 99 06/13/23 08:50 06/13/23 10:01 06/13/23 10:30 06/13/23 10:01 06/13/23 10:30 Point of Care Results Point of Care Results: POC- Test(urine) Negative 06/12/23 12:24 Finger Stick Blood Glucose 174 06/13/23 11:24 Lab Results 06/13/23 05:55 06/13/23 05:55 Blood Type / Crossmatch: 2 No Data to Display Complete Blood Count: 2 White Blood Count 34.52 10^3/uL (4.4-10.8) H* 06/13/23 05:55 Red Blood Count 3.05 10^6/uL (3.93-5.22) L 06/13/23 05:55 Hemoglobin 9.6 g/dL (11.2-15.7) L 06/13/23 05:55 Hematocrit 27.1 % (36.0-46.0) L 06/13/23 05:55 Platelet Count 339 10^3/uL (130-400) 06/13/23 05:55 Venous Blood Lactate 2.1 mmol/L (0.6-1.4) H 06/12/23 11:40 Complete Metabolic Panel: 2 Sodium 120 mmol/L (136-145) L* 06/13/23 05:55 Potassium 4.0 mmol/L (3.5-5.1) 06/13/23 05:55 Chloride 88 mmol/L (98-107) L 06/13/23 05:55 Carbon Dioxide 21.8 mmol/L (21.0-32.0) 06/13/23 05:55 BUN 34 mg/dL (7-18) H 06/13/23 05:55 Creatinine 0.9 mg/dL (0.55-1.02) 06/13/23 05:55 Est GFR (CKD-EPI 2020) 76.92 (mL/min/1.73m2) 06/13/23 05:55 Calcium 7.6 mg/dL (8.5-10.1) L 06/13/23 05:55 Albumin 1.9 g/dL (3.4-5.0) L 06/12/23 11:40 Glucose 223 mg/dL (74-106) H 06/13/23 05:55 Liver Function Panel: 2 Alanine Aminotransferase (ALT/SGPT) 17 U/L (14-59) 06/12/23 11: 40 Aspartate Amino Transf (AST/SGOT) 21 U/L (15-37) 06/12/23 11:40 Coagulation Panel: 2 No Data to Display Cardiac Panel: 2 No Data to Display Arterial Blood Gas: 2 No Data to Display Venous Blood Gas: 2 Venous Blood pH 7.42 (7.31-7.41) H 06/12/23 11:40 Venous Blood Partial Pressure O2 33 mmHg 04/17/24 11:40 Venous Blood Partial Pressure CO2 36 mmHg (41-51) L 06/12/23 11 :40 Venous Blood Oxygen Saturation 63 % 06/12/23 11:40 Venous Blood HCO3 23 mmol/L (23-28) 06/12/23 11:40 Venous Blood Base Excess -1 mmol/L (-2-3) 06/12/23 11:40 Venous Blood Total Carbon Dioxide 21 mmol/L (24-29) L 06/12/23 11:40 Pancreas Panel: 2 No Data to Display Thyroid Panel: 2 No Data to Display Infectious Disease: 2 No Data to Display Blood Cultures: 2 No Data to Display Toxicology Panel: 2 No Data to Display Panel: 2 Serum HCG, Qualitative Negative 06/12/23 11:40 Anesthesia Assessment and Plan Anesthesia History Personal History: No History of Anesthesia Complications Family History: No Family History of Anesthesia Complications Exercise Tolerance Exercise Tolerance: Metabolic Equivalents>4 Pertinent Negatives Pertinent Negatives: No Symptoms of GERD Cardiac & Pulmonary Exam Cardiac Exam: Normal S1/S2 Heart Sounds Pulmonary Exam: Rhonchi Present Implantable Cardiac Device Does patient have a Pacemaker or an ICD?: No Airway Exam Known Difficult Airway: No Mallampati Class: 2 Mouth Opening: Normal (> 3cm) Thyromental Distance: Greater than 3 cm Neck Range of Motion: Full ROM Neck Circumference: Normal Teeth Condition: Removable Dentures/Plates Upper and Removable Dentures/Plates Lower ASA Classification ASA Score: ASA 3 Emergency Case?: No NPO Status NPO Status: NPO Clears >2 hours, Solids >8 hours Status Status: Not Relevant due to Medical History Anesthesia Plan Resuscitation Status: Full Code Anesthesia Technique: General Anesthesia Airway Planned: Endotracheal Tube Monitors Used: Standard Monitors
--- NOTE | 2023-06-13 14:35 | W.ANESPOSTOP ---
Postoperative Evaluation Date, Time and Location Date Performed: 06/13/23 Time Performed: 14:35 Patient Location: Intensive Care Unit Vital Signs Most Recent Imported Vital Signs: Most Recent Vital Signs Temp Pulse Resp BP Pulse Ox 36.7 C 80 24 108/72 100 06/13/23 13:57 06/13/23 14:22 06/13/23 14:22 06/13/23 14:22 06/13/23 14:22 Most Recent Vital Signs Temp Pulse Resp BP Pulse Ox 37.0 C 86 15 111/67 98 06/12/23 15:30 06/12/23 19:02 06/12/23 19:02 06/12/23 19:02 06/12/23 19:02 Pain Score Most Recent Pain Score: Most Recent Pain Score Pain Level 0 06/13/23 13:57 Assessment Mental Status: Awake (Alert & Oriented to Patient Baseline) Airway and Respiratory Function: Patent airway with normal (patient baseline) respiratory exam Cardiovascular Function: Hemodynamically Stable Hydration Status: Adequately Hydrated Nausea & Vomiting: No Nausea or Vomiting Pain: Pain is tolerable per patient Peripheral Nerve Block: Patient did not receive a nerve block
[2023-06-13] MEDS: Normal Saline Flush 10 ML SYR IVP ×2 (16:16→19:55)
[2023-06-13] MEDS: Enoxaparin 40 MG/0.4 ML SYR SC (16:16)
--- NOTE | 2023-06-13 16:30 | PHA.REVIEW2 ---
Pharmacy Admission Review Admission Clinical Review Admission Pharmacy Review: Necrotizing fasciitis (Acute) aspirin Allergy (Intermediate, Unverified 06/12/23 12:54) lip swelling Penicillins Allergy (Intermediate, Unverified 06/12/23 12:54) lip swelling duloxetine HCl [From Cymbalta] Adverse Reaction (Severe, Unverified 06/12/23 12:54) suicidal ideations pregabalin [From Lyrica] Adverse Reaction (Severe, Unverified 06/12/23 12:54) suidial ideations codeine Adverse Reaction (Mild, Unverified 06/12/23 12:54) Nausea Resuscitation Status Full Code Height 5 ft 3 in Weight 87.8 kg Comments Comments/Follow Ups: Patient went to the OR today and last evening for debridement of buttocks, WBC 34.52, lytes low, H/H low 9.6/27.1 Follow Micro of wound/buttock tissue, trend WBC, Anbx de-escalation if possible, currently on triple coverage Pharmacy Admission Review Renal Dosing Renal Dosing: CrCl~76ml/min BUN 34 mg/dL (7-18) H 06/13/23 05:55 Creatinine 0.9 mg/dL (0.55-1.02) 06/13/23 05:55 Anticoagulation Anticoagulation: Hgb 9.6 g/dL (11.2-15.7) L D 06/13/23 05:55 Hct 27.1 % (36.0-46.0) L 06/13/23 05:55 Plt Count 339 10^3/uL (130-400) 06/13/23 05:55 Creatinine 0.9 mg/dL (0.55-1.02) 06/13/23 05:55 DVT Prophylaxis: Reviewed Medications: Enoxaparin Opiate Usage Evaluate Pain Scale/Pains Meds: Reviewed (Pain post-op 12/04 (Dilaudid IVP)) Scheduled Bowel Reg ordered if on Opiates?: No (Will message surgeon) Relevant Labs Relevant Labs: Sodium 120 mmol/L (136-145) L* 06/13/23 05:55 Potassium 4.0 mmol/L (3.5-5.1) 06/13/23 05:55 Chloride 88 mmol/L (98-107) L 06/13/23 05:55 IV to PO Switch IV Medications: Reviewed (Anbx, IV Dilaudid, IV Ketorolac, IV Zofran) Home Meds Home Med List reviewed: N/A (no home meds listed) Pharmacy Antibiotic Review Relevant Labs: Procal 1.6, Urine culture >100K gram negative shonna, BC pending, wound sample obtained in OR with cultures pending Pharmacy Antibiotic Activity: Reviewed, no change (negative serum HCG test: on Vanco-PEG, Aztreonam, Clinda) Comments Comments/Follow Ups: Patient went to the OR today and last evening for debridement of buttocks, WBC 34.52, lytes low, H/H low 9.6/27.1 Follow Micro of wound/buttock tissue, trend WBC, Anbx de-escalation if possible, currently on triple coverage
[2023-06-13] MEDS: Insulin Aspart 300 UNITS/3 ML PEN SC (16:58)
--- NOTE | 2023-06-13 17:09 | ROE_ITS ---
Date of service: 06/13/23 Time of Service: 15:15 Operative Note Operative Note DATE OF PROCEDURE: 06/12/23 PRE-OP DIAGNOSIS: Necrotizing soft tissue infection of the right buttock POST-OP DIAGNOSIS: same PROCEDURE: Debridement irrigation and repacking of right buttock wound SURGEON: Blaze Dooley ANESTHESIA TYPE: Local By Surgeon and General LMA/ETT Refer to Anesthesia Record ESTIMATED BLOOD LOSS: 50 PATHOLOGY: none sent COMPLICATIONS: None Patient was transported to: ICU Patient's condition: critical Implants: 1 complete role of half-strength Dakin's soaked Kerlix gauze Indications: Jennifer is a 52-year-old woman who comes to the emergency department yesterday with buttock pain. Clinical features were consistent with a necrotizing soft tissue infection. She was brought to the operating room emergently and underwent incision, drainage, and debridement of the wound. The wound was packe d with Betadine soaked gauze overnight, and she returns to the OR today for more debridement and dressing changes Findings: Extension of necrotizing soft tissue infection extending a bit laterally, and slightly inferiorly Procedure Description: Patient was brought down from the intensive care unit, moved onto the operating room table. General endotracheal anesthesia was induced. She was then rolled into the left lateral decubitus position. Previous dressings were all removed. Discharge was foul-smelling, there was obvious necrotic debris in the wound. Next, the lower back, buttocks, right hip, perineum, and posterior right thigh were all prepped. A Flexi-Seal stool management device was already in situ, as well as Romo catheter. These were prepped into, then mostly draped out of the operative field. Starting measurements of the wound were 10 cm long by 9 cm wide by 6 cm deep. The lateral edge of the skin was quite undermined, and this extended slightly inferiorly towards the back of the right thigh. There was some mild ecchymosis of the skin. Using electrocautery, I debrided the inferior lateral aspect of the skin flap back to healthy bleeding tissue. There was a significant amount of necrotic soft tissue underlying this portion of the wound similar to yesterday. Using combination of sharp dissection, as well as Bovie electrocautery, I debrided this towards the surrounding fat. There were several loculations, which I broke up with my fingers. Once the heaviest burden of debris was excised from the wound, I used a Versajet with #9 setting to debride the entirety of the wound bed. Some subcutaneous fat was debrided away from the midline portion of the wound as it extended up towards the posterior wall of the rectum. There is no exposed bone in the wound bed. Once the Versajet debridement was completed, I irrigated it with 3 L of sterile saline. A few f ocal points of bleeding were controlled with electrocautery. No specimens were obtained today. After debridement, the new wound measurements were 15 cm long by 12 cm wide by 6 cm deep. Next, I packed the wound with 1 complete Curlex gauze length. The gauze was soaked in half-strength Dakin solution in an effort to help sterilize the wound. ABDs and tape were applied. Drapes were removed, the patient was rolled back into the supine position prior to extubation and transferred back up to the intensive care unit.
--- NOTE | 2023-06-13 17:26 | DSE_ITS ---
Date of service: 06/13/23 Time of Service: 20:09 DS: Diagnosis Discharge Diagnosis (1) Necrotizing fasciitis: Status: Acute Asessment and Plan: Transfer to [facility] Discharge Plan Disposition Patient Disposition: Transfer-Acute Inpatient Care Specific Acute Inpt Facility: [facility] Condition: Critical Discharge Details Reason For Visit: Necrotizing Fasciitis Admit Date/Time: 06/12/23 15:25 Admit Provider: Blaze Dooley Attending Provider: Blaze Dooley Primary Care Provider: Unknown,Unknown Hospital Course Hospital Course: Jennifer is 52 years old. She comes to the emergency department with pain in the right buttock, and symptoms concerning for sepsis. She had a white blood cell count of 40,000, and an ecchymotic hemorrhagic wound on her right buttock concerning for necrotizing soft tissue infection. She underwent a CT scan that demonstrated extensive inflammation of the soft tissues about adjacent to the rectum. She was started on aztreonam, clindamycin and vancomycin. She was br ought emergently to the operating room for incisional debridement of the buttock wound. She underwent initial debridement of 10 x 9 x 6 cm of soft tissue of the right buttock. Gram stain demonstrated gram-positive cocci, gram-negative rods, gram-positive rods. She was admitted to the intensive care unit, and intravenous fluids were started to manage her hyponatremia. She was resuscitated over the course the night, brought back to the operating room the next day for more debridement. At the completion of the second operation, the wound measured 15 x 12 x 6 cm. In light of the complexity of this wound, and the need for multiple repeat operations, she was transferred to the [facility] for definitive treatment Home Meds and New Rx's Prescriptions: No Action No Known Home Meds Discharge Instructions Activity:: Addressed Equipment/Supplies:: No Equipment Needed Diet:: As Tolerated DS: Summary Time Spent with Patient providing and/or coordinating discharge services: Greater than 30 minutes Status at Discharge Functional status at discharge: bed bound Overall status at discharge: patient is not back to baseline Mental Status: mental status grossly normal Speech and Movement: speech and movement normal Mood: congruent mood Affect: normal affect Quality:SDOH Health Related Social Needs: Health related social needs inadequate housing, transp o insecurity Exam Const General: cooperative and comfortable Orientation: alert, awake and oriented x3 Skin Other: 15 x 12 x 6 cm wound to the right buttock status postsurgical debridement Psych Mental Status: mental status grossly normal Speech and Movement: speech and movement normal Mood: congruent mood Affect: normal affect DS: Data Vitals/I&O Vitals and I&O: Vital Signs Temperature 98.1 F 06/13/23 13:57 Temperature Source Temporal Artery Scan 06/13/23 13:57 Pulse 82 06/13/23 17:01 Pulse 83 06/13/23 17:01 Respiratory Rate 16 06/13/23 17:01 Respiratory Effort Normal 06/13/23 13:57 Respiratory Depth Normal 06/13/23 13:57 Respiratory Pattern Normal 06/13/23 13:57 Blood Pressure 99/85 L 06/13/23 17:01 Blood Pressure Mean 91 06/13/23 17:01 Blood Pressure Position Supine 06/13/23 13:57 Pulse Oximetry 96 06/13/23 17:01 Oxygen Delivery Method Venti Mask 06/13/23 13:57 Oxygen Flow Rate 6 06/13/23 13:57 Pain Level 10 06/13/23 16:18 Intake & Output 06/12/23 06/13/23 06/13/23 23:59 11:59 23:59 Intake Total 3738.333 / 3738.333 1550 / 2440 890 / 2440 Output Total 2300 / 2300 1075 / 1450 375 / 1450 Balance 1438.333 / 1438.333 475 / 990 515 / 990 Weight 190 lb 11.198 oz 193 lb 9.054 oz 193 lb 9.054 oz Intake: IV 1728.333 / 0546.834 9017 / 2100 650 / 2100 Oral 1960 / 1960 240 / 240 Injectate 50 / 50 Rectum 50 / 50 Other 100 / 100 Output: Urine 2300 / 2300 1075 / 1450 375 / 1450 Other: Urine Color Light Aysha Yellow Yellow Urine Appearance Clear Cloudy Clear Urine Odor None Comment Romo intact and draining clear yellow urine. Romo catheter. Stool Characteristics Liquid Liquid Voiding Methods Indwelling Catheter Data Completed and Pending Labs on day of discharge: Labs from last 24 hours 06/13/23 06/13/23 06/12/23 16:54 05:55 23:28 WBC 34.52 H* RBC 3.05 L Hgb 9.6 L D Hct 27.1 L MCV 89 MCH 31.5 MCHC 35.4 RDW 14.2 Plt Count 339 MPV 9.7 Immature Gran % 0.0 Neutrophils % 94.0 Lymphocytes % 2.0 Monocytes % 3.0 Eosinophils % 0.0 Basophils % 0.0 Myelocytes % 1 Nucleated RBC % 0.0 Absolute Neutrophils 32.45 H Absolute Lymphocytes 0.69 L Absolute Monocytes 1.04 H Absolute Eosinophils 0.00 Absolute Basophils 0.00 RBC Morphology Normal Sodium 120 L* 119 L* Potassium 4.0 4.0 Chloride 88 L 85 L Carbon Dioxide 21.8 22.9 Anion Gap 10.2 11.1 H BUN 34 H 35 H Creatinine 0.9 1.0 Est GFR (CKD-EPI 2020) 76.92 67.78 Glucose 223 H 280 H Calcium 7.6 L 7.7 L Patient ABO/Rh Pending Antibody Screen Pending 06/12/23 19:30 WBC RBC Hgb Hct MCV MCH MCHC RDW Plt Count MPV Immature Gran % Neutrophils % Lymphocytes % Monocytes % Eosinophils % Basophils % Myelocytes % Nucleated RBC % Absolute Neutrophils Absolute Lymphocytes Absolute Monocytes Absolute Eosinophils Absolute Basophils RBC Morphology Sodium 118 L* Potassium 4.7 Chloride 86 L Carbon Dioxide 20.9 L Anion Gap 11.1 H BUN 34 H Creatinine 1.1 H Est GFR (CKD-EPI 2020) 60.46 Glucose 311 H Calcium 7.8 L Patient ABO/Rh Antibody Screen 06/12/23 14:28 Buttock - Right Anaerobic Culture - Pending Preliminary micro results at discharge 06/12/23 12:00 Urine Culture - Preliminary Urine - Reflex from Ua Gram Negative Rodri 06/12/23 12:00 Blood Culture - Preliminary Blood NO GROWTH 24 HOURS 06/12/23 11:40 Blood Culture - Preliminary Blood NO GROWTH 24 HOURS 06/12/23 14:28 Surgical Culture - Preliminary Buttock - Right 06/12/23 14:28 Anaerobic Culture - Pending Buttock - Right [facility] All Active Problems Necrotizing fasciitis (Acute) Cholesteatoma of right ear (Acute) Impacted cerumen, left ear (Acute) Chronic otitis externa of right ear (Acute) Chronic serous otitis media (Acute) Chronic dysfunction of both eustachian tubes (Acute) Chronic otitis externa of left ear (Acute) Impacted cerumen, bilateral (Acute) Chronic diffuse otitis externa of both ears (Acute) Otorrhea, right ear (Acute) Mass of left ear canal (Acute) 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 (Acute) Other noninfective acute otitis externa, bilateral (Acute) Tobacco use (Acute) Mixed hearing loss, bilateral (Acute) Medical History Obesity Hypertension Chronic abscess of jaw COPD (chronic obstructive pulmonary disease) Neuropathy Depression Diabetes Surgical History Incision & Drainage, Abscess or Hematoma left jaw-10/07 Social History Smoking/Tobacco Use Status: Current every day Tobacco Type: cigarettes Smoking risk assessment performed?: Yes Alcohol Intake: current Alcohol Intake frequency: 0-2 drinks per day Alcohol type: beer Drug use: Daily Substance use type: marijuana Housing: apartment Do you feel safe in your relationship?: Yes Time Spent with Patient Time Spent with Patient: >85 minutes Time was spent: referring, communicating with other health wound care coordinator, indepentently interpreting results, counseling the patient and care coordination
[2023-06-13] MEDS: Normal Saline 1,000 ML 1000 ML IV (19:30)
[2023-06-13] MEDS: Ketorolac 30 MG/ML VIAL IVP (20:30)
[2023-06-13] MEDS: Protein Nutritional Supplement 16 GM 1 OUNCE PACKET PO (20:45)
[2023-06-13] MEDS: Polyethylene Glycol 3350 17 GM PACKET PO (20:45)
== END 2023-06-13 21:45 | disposition short-term general hospital (02) | DRG 464 ==
LOC: ER 13:10 → DSU 13:30 → ICU 15:27
PROVIDERS: Admitting Provider Surgery; Emergency Provider Nurse Practitioner Family; Visit Provider Surgery
PROC: 0J990ZZ Drainage of Buttock Subcutaneous Tissue and Fascia, Open Approach (ICD-10-PCS; CPT 11006; principal; 2023-06-12 13:30)
PROC: 0JB90ZZ Excision of Buttock Subcutaneous Tissue and Fascia, Open Approach (ICD-10-PCS; CPT 11006; principal; 2023-06-13 14:00)
DX: M72.6 Necrotizing fasciitis (principal); E87.1 Hypo-osmolality and hyponatremia; B96.89 Other specified bacterial agents as the cause of diseases classified elsewhere; J44.9 Chronic obstructive pulmonary disease, unspecified; E66.9 Obesity, unspecified; E11.40 Type 2 diabetes mellitus with diabetic neuropathy, unspecified; I10 Essential (primary) hypertension; F32.A Depression, unspecified; F17.210 Nicotine dependence, cigarettes, uncomplicated; H90.6 Mixed conductive and sensorineural hearing loss, bilateral; Z68.34 Body mass index [BMI] 34.0-34.9, adult; R53.1 Weakness; D72.829 Elevated white blood cell count, unspecified
CPT/HCPCS: 11006 ×2; 00123; 36415; 51702; 80048; 80053; 81025; 82805; 84145; 86850; 86900; 86901; 87040; 87077; 96365; 96368; 99291; 99292; J1650; 72193; 81003; 81015; 83605; 84703; 85025; 87070; 87075; 87086; 87186; 87205; J0457; J0737; J1100; J1170; J1815; J1885; J2001; J2270; J2371; J2405; J2704; J3010; J3372

== ENCOUNTER 2023-08-30 11:13 | Outpatient (REF) | payer MEDICAID, SELFPAY ==
[2023-08-30 14:50] LABS: HCT 32.2 % (36.0-46.0); HGB 10.3 g/dL (11.2-15.7); MCH 27.6 pg (27.0-33.0); MCV 86 fL (80-95); MPV 10.9 fL (8.0-11.0); Platelet Count 451 10^3/uL (130-400); RBC 3.73 10^6/uL (3.93-5.22); RDW 14.3 % (11.7-14.6); RDW-SD 45.3 fL
[2023-08-30 15:18] LABS: Hemoglobin A1C 6.2 % (<5.7)
[2023-08-30 15:21] LABS: ALT 18 U/L (14-59); AST 12 U/L (15-37); Albumin 3.9 g/dL (3.4-5.0); Alkaline Phosphatase 90 U/L (46-116); Anion Gap 10.7 mmol/L (3-11); BUN 21 mg/dL (7-18); Bilirubin, Total 0.21 mg/dL (0.2-1.0); CO2 25.3 mmol/L (21.0-32.0); CREATININE 0.8 mg/dL (0.55-1.02); Calcium 10.3 mg/dL (8.5-10.1); Chloride 103 mmol/L (98-107); Cholesterol 189 mg/dL (<200); Estimated GFR 88.05 (mL/min/1.73m2); Glucose 151 mg/dL (74-106); HDL Cholesterol 40 mg/dL (40-60); Potassium 4.8 mmol/L (3.5-5.1); Sodium 139 mmol/L (136-145); Total Protein 7.8 g/dL (6.4-8.2); Triglyceride 418 mg/dL (<150)
[2023-08-30 15:32] LABS: Microalb ug/mg Crea 1832.5 ug/mg Cr
[2023-08-30 15:44] LABS: LDL CHOLESTEROL 77 mg/dL (<100)
[2023-09-02 09:32] LABS: HIV-1/2 Ag & Ab Screen Negative (Negative)
[2023-09-02 09:33] LABS: Hepatitis C Ab w Rflx HCV PCR Negative (Negative)
== END 2023-08-30 11:14 | disposition home or self-care (01) ==
LOC: NCHCN 11:13
PROVIDERS: PCP Family Medicine; Visit Provider Family Medicine
DX: E11.9 Type 2 diabetes mellitus without complications (principal); I10 Essential (primary) hypertension; M72.6 Necrotizing fasciitis; Z11.4 Encounter for screening for human immunodeficiency virus [HIV]; Z11.59 Encounter for screening for other viral diseases; R79.89 Other specified abnormal findings of blood chemistry
CPT/HCPCS: 80053; 80061; 83721; 85027; 86803; 87389; 82043; 82570; 83036

== ENCOUNTER 2023-09-11 15:28 | Outpatient (REF) | payer MEDICAID, SELFPAY ==
--- OUTSIDE RECORDS SUMMARY | 2023-09-11 15:31 | XMS_ITS | Clinical Summary ---
Author Organization [facility] Address [address] [place] [address] Care Team Providers Care Injection Mold Tooling Technician Name Role Phone Unknown, Provider Primary Care Provider [phone] Allergies Active Allergy Reactions Criticality Noted Date Comments Apple Juice Hives 07/31/2023 Hives with juice only, able to eat apples Aspirin Hives 06/14/2023 Duloxetine Other (See Comments) 06/14/2023 Depression, suicidal ideation Pregabalin Nausea And Vomiting 06/14/2023 Penicillins Hives 06/14/2023 Medications Medication Sig Dispensed Refills Start Date End Date Status oxyCODONE (ROXICODONE) 10 mg immediate release tablet Take 1 Tablet by mouth every 4 hours as needed for Pain. Daily Max: 60 mg 10 Tablet 08/22/2023 Active melatonin 3 mg tablet Take 2 Tablets by mouth at bedtime. 08/22/2023 Active LORazepam (ATIVAN) 0.5 mg tablet Take 1 Tablet by mouth daily as needed for Anxiety. Daily Max: 0.5 mg 10 Tablet 08/22/2023 Active Blood-Glucose Meter,Continuous (DEXCOM G7 SIEBEL SOLUTION ARCHITECT) miscIndications: Type 2 diabetes mellitus with hyperglycemia, with long-term current use of insulin ([facility]) 1 Device by misc (non-drug; combo route) route Once for 1 dose. 1 Each 1 08/22/2023 Active Blood-Glucose Sensor (DEXCOM G7 SENSOR) deviceIndication s:Type 2 diabetes mellitus with other skin ulcer, with long-term current use of insulin (HCC-CMS) 1 Device by misc (non-drug; combo route) route every 10 days. 3 Each 1 08/22/2023 Active acetaminophen (TYLENOL) 500 mg tablet Take 2 Tablets by mouth every 6 hours as needed for Pain. 08/22/2023 Active amLODIPine (NORVASC) 10 mg tablet Take 1 Tablet by mouth daily for 30 days. . 30 Tablet 08/23/2023 Active docusate sodium (COLACE) 100 mg capsule Take 1 Capsule by mouth 2 times daily as needed for Constipation. 08/22/2023 Active furosemide (LASIX) 40 mg tablet Take 1 Tablet by mouth daily for 30 days. . 30 Tablet 08/23/2023 Active insulin glargine 100 unit/mL (3 mL) injection pen Inject 48 Units into the skin once daily. . 15 mL 08/23/2023 Active metFORMIN (GLUCOPHAGE-XR) 500 mg ER tablet Take 2 Tablets by mouth 2 times daily with breakfast and dinner. . 120 Tablet 08/22/2023 Active insulin pen needles 31G x 3/16 Brand: Meetyl Ultra Fine Mini 4 pen needles to be used per day 100 Each 08/22/2023 Active insulin aspart U-100 (NOVOLOG FLEXPEN) 100 unit/mL (3 mL) injectable pen Inject 6 units into the skin with meals, hold if NPO. Add additional units per sliding scale: insulin dosing regimen weight between 76-100 kg BG Units 66-140 0 units, 141-180 2 units, 181-210 3 units, 211-250 5 units, 251-299 7units, > 299 11units. Inject 5 units into the skin at bed if BG >250 and recheck BG at midnight. 18 mL 08/22/2023 Active sodium chloride 1,000 mg soluble tablet Take 1 Tablet by mouth 3 times daily for 30 days. 90 Tablet 08/22/2023 4 Active nlknajcq-usd-mvm n fum-folic ac 7.5 mg iron-400 mcg tablet Take 1 Tablet by mouth daily for 30 days. 30 Tablet 08/23/2023 4 Active cloNIDine (CATAPRES) 0.2 mg/[address] 1 Patch onto the skin once a week. 3 Patch 08/27/2023 Active Blood-Glucose Sensor (DEXCOM G7 SENSOR) deviceIndication s:Type 2 diabetes mellitus with other skin ulcer, with long-term current use of insulin ([facility]) 1 Device by misc (non-drug; combo route) route every 10 days. 3 Each 08/12/2023 4 Discontinued Blood-Glucose Meter,Continuous ([employer] G7 SIEBEL SOLUTION ARCHITECT) miscIndications: Type 2 diabetes mellitus with hyperglycemia, with long-term current use of insulin ([facility]) 1 Device by misc (non-drug; combo route) route Once for 1 dose. 1 Each 08/19/2023 4 Discontinued metFORMIN (GLUCOPHAGE-XR) 500 mg ER tablet Take 2 Tablets by mouth 2 times daily with breakfast and dinner. 120 Tablet 08/22/2023 4 Discontinued methocarbamoL (ROBAXIN) 500 mg tablet Take 2 Tablets by mouth 4 times daily for 7 days. 56 Tablet 08/22/2023 4 Discontinued furosemide (LASIX) 40 mg tablet Take 1 Tablet by mouth daily for 30 days. 30 Tablet 08/23/2023 4 Discontinued docusate sodium (COLACE) 100 mg capsule Take 1 Capsule by mouth 2 times daily as needed for Constipation. 30 Capsule 08/22/2023 4 Discontinued amLODIPine (NORVASC) 10 mg tablet Take 1 Tablet by mouth daily for 30 days. 30 Tablet 08/23/2023 4 Discontinued acetaminophen (TYLENOL) 500 mg tablet Take 2 Tablets by mouth every 6 hours as needed for Pain. 56 Tablet 08/22/2023 4 Discontinued sodium chloride 1,000 mg soluble tablet Take 1 Tablet by mouth 3 times daily for 30 days. 90 Tablet 08/22/2023 4 Discontinued cubymjqv-xgd-ruf n fum-folic ac 7.5 mg iron-400 mcg tablet Take 1 Tablet by mouth daily for 30 days. 30 Tablet 08/23/2023 4 Discontinued insulin glargine 100 unit/mL (3 mL) injection pen Inject 48 Units into the skin once daily. 15 mL 08/23/2023 4 Discontinued insulin aspart U-100 (NOVOLOG FLEXPEN) 100 unit/mL (3 mL) injectable pen Inject 6 Units into the skin 3 times daily with meals. 5 mL 08/22/2023 4 Discontinued insulin aspart U-100 (NOVOLOG FLEXPEN) 100 unit/mL (3 mL) injectable penIndications:S UPPLEMENTAL INSULIN Aspart SSI: Dosing regimen weight between 76-100 kg BG Units 66-140 0 141-180 2 181-210 3 211-250 5 251-299 7 > 299 11 10 mL 08/22/2023 4 Discontinued insulin aspart U-100 (NOVOLOG FLEXPEN) 100 unit/mL (3 mL) injectable pen Inject 5 Units into the skin at bedtime. if BG > 250 and recheck BG at midnight 5 mL 08/22/2023 4 Discontinued cloNIDine (CATAPRES) 0.2 mg/[address] 1 Patch onto the skin once a week. 3 Patch 08/27/2023 4 Discontinued insulin pen needles 31G x 3/16 Brand: BD Ultra Fine Mini 100 Each 08/22/2023 4 Discontinued methocarbamoL (ROBAXIN) 500 mg tablet Take 2 Tablets by mouth 4 times daily for 7 days. 56 Tablet 08/22/2023 4 Active Problems Problem Noted Date Diagnosed Date Type 2 diabetes with complication ([facility]) 06/25 Type 2 diabetes mellitus wit h peripheral neuropathy ([facility]) 07/12/2023 Respiratory insufficiency 07/04/2023 Insufficiency, respiratory, acute 06/26/2023 Electrolyte and fluid disorder 06/26/2023 Acute respiratory failure with hypoxia ([facility]) 06/26/2023 Palliative care by specialist 06/20/2023 Complete heart block ([facility]) 06/17/2023 Cardiopulmonary arrest with successful resuscitation ([facility]) 06/15/2023 Type 2 diabetes mellitus 06/15/2023 Necrotizing soft tissue infection 06/14/2023 Necrotizing fasciitis ([facility]) 06/13/2023 Encounters Date Type Department Care Team Description 08/30/2023 Lab Requisition [facility] Pathology & Laboratory Medicine [address] [address] Outr Resulting Lab, Provider 08/30/2023 Lab Requisition [facility] Pathology & Laboratory Medicine [address] [address] Outr Resulting Lab, Provider 08/26/2023 Telephone [facility] [place] [address] Bekah Christensen RN Hospital Discharge Follow Up 08/19/2023 Orders Only [facility] [address] [place] [id number] Carmen Vernon, PLASTICS FITTER Type 2 diabetes mellitus with hyperglycemia, with long-term current use of insulin ([facility]) (Primary Dx) 08/12/2023 Orders Only [facility] [address] [place] [address] Carmen Vernon, PLASTICS FITTER Type 2 diabetes mellitus with other skin ulcer, with long-term current use of insulin ([facility]) (Primary Dx) 07/31/2023 16:46 EDT - 07/31/2023 18:11 EDT Surgery [facility] OR [address] [place] [address] Violeta Bach MD Split thickness skin graft to perineum [[id number] (CPT??)] 07/31/2023 15:09 EDT Anesthesia Event [facility] OR [address] [place] [address] Rocky Jacobs MD Ng, Erina, MD 07/10/2023 10:39 EDT Anesthesia Event [facility] OR [address] [place] [address] Gigi Rodriguez MD 07/10/2023 10:36 EDT - 07/10/2023 12:31 EDT Surgery [facility] OR [address] [place] [address] Efraín Ruead MD WOUND VAC I&D PERINEUM [[id number] (CPT??)] 07/04/2023 5:56 EDT Anesthesia Event [facility] ANESTHESIA [address] [place] [address] Tulio Garrison MD 06/26/2023 21:16 EDT Anesthesia Event [facility] OR [address] [place] [address] Luisa Humphries DO Millar, Michael J, JUDGE CLERK 06/26/2023 20:30 EDT - 06/26/2023 22:25 EDT Surgery [facility] OR [address] [place], [place] [phone] Efraín Rueda MD debridement of perianal wound, wound vac placement [[id number] (CPT??)] 06/19/2023 13:09 EDT Anesthesia Event [facility] OR [address] [place], [place] [phone] Tigre Olmos MD PhD Mary Conti, DENZEL 06/19/2023 11:35 EDT - 06/19/2023 12:30 EDT Surgery [facility] OR [address] [place], [place] [phone] Ramón Youngblood MD Incision & drainage gluteal wound [[id number] (CPT??)] 06/17/2023 13:54 EDT Anesthesia Event [facility] OR [address] [place], [place] [phone] Edgar Alvarez MD Quill, Cathryn M, JUDGE CLERK 06/17/2023 13:06 EDT - 06/17/2023 14:16 EDT Surgery [facility] OR [address] [place], [place] [phone] Kyle Mars MD INCISION AND DRAINAGE, ABSCESS, ISCHIORECTAL OR PERIRECTAL [[id number] (CPT??)] 06/16/2023 8:04 EDT Anesthesia Event [facility] ANESTHESIA [address] [place] [address] Chato Serrano MD Clark, Sarah G 06/14/2023 21:21 EDT Anesthesia Event [facility] OR [address] [place], [place] [phone] Terrence Branham MD Millar, Michael J, JUDGE CLERK 06/14/2023 19:33 EDT - 06/14/2023 21:43 EDT Surgery [facility] OR [address] [place], [place] [phone] Violeta Bach MD NEGATIVE PRESSURE WOUND THERAPY WITH DISPOSIBLE EQUIPMENT [[id number] (CPT??)] 06/13/2023 23:23 EDT - 08/22/2023 11:14 EDT Hospital Encounter [facility] General Surgery Unit [address] [place] [address] Chris More MD Ciesla, David J, MD Tandoh, Margaret A, MD Necrotizing soft tissue infection (Primary Dx); Cardiopulmonary arrest with successful resuscitation ([facility]-CMS); Complete heart block (HCC-CMS); Palliative care by specialist [Z51.5]; Type 2 diabetes mellitus without complication, without long-term current use of insulin (HCC-CMS); Insufficiency, respiratory, acute [R06.89]; Electrolyte and fluid disorder [E87.8]; Acute respiratory failure with hypoxia (HCC-CMS); Respiratory insufficiency; Type 2 diabetes mellitus with hyperglycemia, unspecified whether care home insulin use ([facility]) [E11.65]; Type 2 diabetes mellitus with peripheral neuropathy ([facility]) [E11.42]; Type 2 diabetes with complication ([facility]) [E11.8]; Necrotizing fasciitis ([facility]) [M72.6]; Type 2 diabetes mellitus with hyperglycemia, with long-term current use of insulin ([facility]); Type 2 diabetes mellitus with other skin ulcer, with long-term current use of insulin ([facility]) Discharge Disposition: Home-Health Care [facility] 06/13/2023 Travel 06/12/2023 - 06/12/2023 23:59 EDT Hospital Encounter [facility] Secondary Read[place] Discharge Disposition: Home or Self Care from Last 3 Months Social History Tobacco Use Types Packs/Day Years Used Date Smoking Tobacco: Former Cigarettes 1.5 38.3 1 986 - 06/12/2023 Smokeless Tobacco: Never Tobacco Cessation:Counseling Given: Not Answered [facility] Utilities Answer Date Recorded In the past 12 months has e [employer], gas, oil, or water [employer] threatened to shut off services in your home? Yes 07/10/2023 Hunger Vital Sign Answer Date Recorded Within the past 12 months, y ou worried that your food would run out before you got the money to buy more. Sometimes true Within the past 12 months, t he food you bought just didn't last and you didn't have money to get more. Sometimes true [facility] - Transportation Answer Date Re corded In the past 12 months, has l ack of transportation kept you from medical appointments or from getting medications? No 06/25 In the past 12 months, has l ack of transportation kept you from meetings, work, or from getting things needed for daily living? No 07/10/2023 Housing Stability Vital Sign Answer Osvaldo e Recorded In the last 12 months, was t here a time when you were not able to pay the mortgage or rent on time? No 06/19/2023 In the last 12 months, how many places have you lived? 1 06/19/2023 In the last 12 months, was t here a time when you did not have a steady place to sleep or slept in a mcfp (including now)? No 06/19/2023 Housing Stability Vital Sign Answer Osvaldo e Recorded In the last 12 months, was t here a time when you were not able to pay the mortgage or rent on time? Yes 07/10/2023 In the past 12 months, how m any times have you moved where you were living? 0 07/10/2023 At any time in the past 12 [facility], were you homeless or living in a mcfp (including now)? No 07/10/2023 Interpersonal Safety Answer Date Record ed How often does anyone, komal correa family, hit, punch or physically hurt you? 07/10/2023 How often does anyone, komal correa family, insult, scream, curse or threaten to hurt you? 07/10/2023 Sex and Gender Information Value Date Recorded Sex Assigned at Not on file Gender Identity Female 06/15/2023 0:35 EDT Sexual Orientation Not on file Obstetrics History Last Filed Vital Signs Vital Sign Reading Time Taken Comments Blood Pressure 126/55 08/22/2023 0417 EDT Pulse 84 08/15/2023 1349 EDT Temperature 36.5 ??C (97.7 ??F) 08/22/2023 0417 EDT Respiratory Rate 18 08/22/2023 0417 EDT Oxygen Saturation 97% 08/22/2023 0417 EDT Inhaled Oxygen Concentration - - Weight 80.7 kg (178 lb) 08/12/2023 0737 EDT Height 160 cm (5' 2.99) 07/31/2023 1029 EDT Body Mass Index 31.54 07/31/2023 1029 EDT Plan of Treatment Health Maintenance Due Date Last Done Comments Eye Exam 1970 Foot Exam 1970 Microalbumin/Creatinine Ratio 1970 Lipid Profile Screening (Cholesterol) 1973 Hepatitis B Vaccine (1 of 3 - 19+ 3-dose series) 1989 COVID-19 Vaccine (2022- season) 2022 Hemoglobin A1C (Ha1C) 12/14/2023 06/14/2023 Lung Cancer Screening 07/02/2024 07/03/2023, 024 Hepatitis C Screen Completed 08/30/2023 Medical Devices Implanted Type Area Touring Production Manager Device Identifier Shelf Expiration Date Model / Serial / Lot Sealant 4ml Artiss Forzen Diluted Tisseel - [id number] Implanted:Qty : 1 on 07/31/2023 by Violeta Bach MD at [facility] Right: Buttocks WHITAKER/DIALYSIS DIV SARAH. 04/24/2024 [id number] / [id number] / [id number] Procedures Procedure Name Priority Date/Time Associated Diagnosis Comments HEPATITIS C AB W REFLEX TO HCV RNA BY PCR Routine 08/30/2023 10:00 EDT HIV 1/2 ANTIGEN AND ANTIBODY, 4TH GENERATION Routine 08/30/2023 10:00 EDT ECG REPORT - SCANNED 08/27/2023 9:57 EDT ECG REPORT - SCANNED 08/26/2023 11:11 EDT POCT GLUCOSE, INTERFACED Routine 08/22/2023 7:34 EDT COMPLETE BLOOD COUNT AND DIFFERENTIAL Routine 08/22/2023 5:43 EDT BASIC METABOLIC PANEL (BMP) Routine 08/22/2023 5:43 EDT POCT GLUCOSE, INTERFACED Routine 08/21/2023 20:38 EDT POCT GLUCOSE, INTERFACED Routine 08/21/2023 17:29 EDT POCT GLUCOSE, INTERFACED Routine 08/21/2023 12:01 EDT POCT GLUCOSE, INTERFACED Routine 08/21/2023 7:33 EDT POCT GLUCOSE, INTERFACED Routine 08/20/2023 20:55 EDT POCT GLUCOSE, INTERFACED Routine 08/20/2023 18:19 EDT POCT GLUCOSE, INTERFACED Routine 08/20/2023 12:06 EDT POCT GLUCOSE, INTERFACED Routine 08/20/2023 7:45 EDT POCT GLUCOSE, INTERFACED Routine 08/19/2023 21:41 EDT POCT GLUCOSE, INTERFACED Routine 08/19/2023 11:26 EDT POCT GLUCOSE, INTERFACED Routine 08/19/2023 7:35 EDT COMPLETE BLOOD COUNT AND DIFFERENTIAL Routine 08/19/2023 7:34 EDT BASIC METABOLIC PANEL (BMP) Routine 08/19/2023 7:34 EDT POCT GLUCOSE, INTERFACED Routine 08/18/2023 20:51 EDT POCT GLUCOSE, INTERFACED Routine 08/18/2023 17:35 EDT POCT GLUCOSE, INTERFACED Routine 08/18/2023 7:28 EDT POCT GLUCOSE, INTERFACED Routine 08/17/2023 21:28 EDT POCT GLUCOSE, INTERFACED Routine 08/17/2023 17:32 EDT POCT GLUCOSE, INTERFACED Routine 08/17/2023 11:35 EDT POCT GLUCOSE, INTERFACED Routine 08/17/2023 7:02 EDT POCT GLUCOSE, INTERFACED Routine 08/16/2023 21:59 EDT POCT GLUCOSE, INTERFACED Routine 08/16/2023 17:48 EDT POCT GLUCOSE, INTERFACED Routine 08/16/2023 17:08 EDT POCT GLUCOSE, INTERFACED Routine 08/16/2023 11:59 EDT POCT GLUCOSE, INTERFACED Routine 08/16/2023 8:18 EDT POCT GLUCOSE, INTERFACED Routine 08/15/2023 21:20 EDT POCT GLUCOSE, INTERFACED Routine 08/15/2023 18:06 EDT POCT GLUCOSE, INTERFACED Routine 08/15/2023 11:38 EDT POCT GLUCOSE, INTERFACED Routine 08/15/2023 8:05 EDT COMPLETE BLOOD COUNT AND DIFFERENTIAL Routine 08/15/2023 7:50 EDT BASIC METABOLIC PANEL (BMP) Routine 08/15/2023 7:50 EDT POCT GLUCOSE, INTERFACED Routine 08/14/2023 20:43 EDT POCT GLUCOSE, INTERFACED Routine 08/14/2023 17:44 EDT POCT GLUCOSE, INTERFACED Routine 08/14/2023 11:38 EDT POCT GLUCOSE, INTERFACED Routine 08/14/2023 7:43 EDT POCT GLUCOSE, INTERFACED Routine 08/13/2023 22:09 EDT POCT GLUCOSE, INTERFACED Routine 08/13/2023 17:44 EDT POCT GLUCOSE, INTERFACED Routine 08/13/2023 11:36 EDT POCT GLUCOSE, INTERFACED Routine 08/13/2023 7:17 EDT POCT GLUCOSE, INTERFACED Routine 08/12/2023 21:35 EDT POCT GLUCOSE, INTERFACED Routine 08/12/2023 17:37 EDT POCT GLUCOSE, INTERFACED Routine 08/12/2023 11:19 EDT POCT GLUCOSE, INTERFACED Routine 08/12/2023 6:51 EDT COMPLETE BLOOD COUNT AND DIFFERENTIAL Routine 08/12/2023 6:21 EDT BASIC METABOLIC PANEL (BMP) Routine 08/12/2023 6:21 EDT POCT GLUCOSE, INTERFACED Routine 08/11/2023 20:24 EDT POCT GLUCOSE, INTERFACED Routine 08/11/2023 17:15 EDT POCT GLUCOSE, INTERFACED Routine 08/11/2023 11:34 EDT POCT GLUCOSE, INTERFACED Routine 08/11/2023 8:29 EDT POCT GLUCOSE, INTERFACED Routine 08/10/2023 21:40 EDT POCT GLUCOSE, INTERFACED Routine 08/10/2023 18:22 EDT POCT GLUCOSE, INTERFACED Routine 08/10/2023 11:27 EDT POCT GLUCOSE, INTERFACED Routine 08/10/2023 8:07 EDT POCT GLUCOSE, INTERFACED Routine 08/09/2023 20:27 EDT POCT GLUCOSE, INTERFACED Routine 08/09/2023 18:00 EDT POCT GLUCOSE, INTERFACED Routine 08/09/2023 11:44 EDT POCT GLUCOSE, INTERFACED Routine 08/09/2023 8:52 EDT POCT GLUCOSE, INTERFACED Routine 08/08/2023 19:45 EDT POCT GLUCOSE, INTERFACED Routine 08/08/2023 16:48 EDT POCT GLUCOSE, INTERFACED Routine 08/08/2023 12:37 EDT ECG REPORT - SCANNED 08/08/2023 11:03 EDT POCT GLUCOSE, INTERFACED Routine 08/08/2023 7:23 EDT COMPLETE BLOOD COUNT AND DIFFERENTIAL Routine 08/08/2023 6:54 EDT BASIC METABOLIC PANEL (BMP) Routine 08/08/2023 6:54 EDT POCT GLUCOSE, INTERFACED Routine 08/07/2023 21:03 EDT POCT GLUCOSE, INTERFACED Routine 08/07/2023 18:35 EDT POCT GLUCOSE, INTERFACED Routine 08/07/2023 16:53 EDT POCT GLUCOSE, INTERFACED Routine 08/07/2023 12:55 EDT POCT GLUCOSE, INTERFACED Routine 08/07/2023 10:19 EDT POCT GLUCOSE, INTERFACED Routine 08/07/2023 9:15 EDT POCT GLUCOSE, INTERFACED Routine 08/06/2023 21:37 EDT POCT GLUCOSE, INTERFACED Routine 08/06/2023 18:13 EDT POCT GLUCOSE, INTERFACED Routine 08/06/2023 12:46 EDT POCT GLUCOSE, INTERFACED Routine 08/06/2023 7:32 EDT POCT GLUCOSE, INTERFACED Routine 08/05/2023 21:13 EDT POCT GLUCOSE, INTERFACED Routine 08/05/2023 16:52 EDT POCT GLUCOSE, INTERFACED Routine 08/05/2023 11:25 EDT POCT GLUCOSE, INTERFACED Routine 08/05/2023 7:32 EDT COMPLETE BLOOD COUNT AND DIFFERENTIAL Routine 08/05/2023 6:48 EDT BASIC METABOLIC PANEL (BMP) Routine 08/05/2023 6:48 EDT POCT GLUCOSE, INTERFACED Routine 08/04/2023 21:24 EDT POCT GLUCOSE, INTERFACED Routine 08/04/2023 18:38 EDT POCT GLUCOSE, INTERFACED Routine 08/04/2023 12:58 EDT POCT GLUCOSE, INTERFACED Routine 08/04/2023 7:51 EDT POCT GLUCOSE, INTERFACED Routine 08/03/2023 19:51 EDT POCT GLUCOSE, INTERFACED Routine 08/03/2023 18:04 EDT POCT GLUCOSE, INTERFACED Routine 08/03/2023 11:29 EDT POCT GLUCOSE, INTERFACED Routine 08/03/2023 7:39 EDT POCT GLUCOSE, INTERFACED Routine 2023 21:13 EDT POCT GLUCOSE, INTERFACED Routine 2023 18:04 EDT EKG 12-LEAD Routine 2023 16:05 EDT POCT GLUCOSE, INTERFACED Routine 2023 11:42 EDT POCT GLUCOSE, INTERFACED Routine 2023 7:52 EDT POCT GLUCOSE, INTERFACED Routine 08/01/2023 22:07 EDT POCT GLUCOSE, INTERFACED Routine 08/01/2023 17:33 EDT VAGINAL CTGC AND VAGINITIS/VAGINOSIS MOLECULAR DETECTION Routine 08/01/2023 16:31 EDT POCT GLUCOSE, INTERFACED Routine 08/01/2023 11:24 EDT POCT GLUCOSE, INTERFACED Routine 08/01/2023 7:03 EDT COMPLETE BLOOD COUNT AND DIFFERENTIAL Routine 08/01/2023 6:15 EDT BASIC METABOLIC PANEL (BMP) Routine 08/01/2023 6:15 EDT POCT GLUCOSE, INTERFACED Routine 08/01/2023 4:07 EDT POCT GLUCOSE, INTERFACED Routine 07/31/2023 21:31 EDT POCT GLUCOSE, INTERFACED Routine 07/31/2023 18:06 EDT ANESTHESIA PERIPHERAL IV PLACEMENT Routine 07/31/2023 15:42 EDT ANESTHESIA INTUBATION Routine 07/31/2023 15:12 EDT APPLICATION, GRAFT, SKIN, SPLIT-THICKNESS, 100 SQ CM OR LESS 07/31/2023 14:51 EDT Necrotizing soft tissue infection Special Needs Vers[employer]et; POCT GLUCOSE, INTERFACED Routine 07/31/2023 14:33 EDT POCT GLUCOSE, INTERFACED Routine 07/31/2023 12:30 EDT POCT GLUCOSE, INTERFACED Routine 07/31/2023 9:57 EDT POCT GLUCOSE, INTERFACED Routine 07/31/2023 8:48 EDT POCT GLUCOSE, INTERFACED Routine 07/30/2023 21:20 EDT POCT GLUCOSE, INTERFACED Routine 07/30/2023 17:01 EDT POCT GLUCOSE, INTERFACED Routine 07/30/2023 12:40 EDT POCT GLUCOSE, INTERFACED Routine 07/30/2023 8:22 EDT POCT GLUCOSE, INTERFACED Routine 07/29/2023 20:14 EDT POCT GLUCOSE, INTERFACED Routine 07/29/2023 18:13 EDT POC US VAT LINE PLACEMENT Routine 07/29/2023 15:04 EDT POCT GLUCOSE, INTERFACED Routine 07/29/2023 11:20 EDT COMPLETE BLOOD COUNT AND DIFFERENTIAL Routine 07/29/2023 7:50 EDT BASIC METABOLIC PANEL (BMP) Routine 07/29/2023 7:50 EDT POCT GLUCOSE, INTERFACED Routine 07/29/2023 7:11 EDT POCT GLUCOSE, INTERFACED Routine 07/28/2023 21:47 EDT POCT GLUCOSE, INTERFACED Routine 07/28/2023 18:03 EDT POCT GLUCOSE, INTERFACED Routine 07/28/2023 11:49 EDT POCT GLUCOSE, INTERFACED Routine 07/28/2023 7:31 EDT POCT GLUCOSE, INTERFACED Routine 07/27/2023 21:56 EDT POCT GLUCOSE, INTERFACED Routine 07/27/2023 17:51 EDT POCT GLUCOSE, INTERFACED Routine 07/27/2023 11:48 EDT POCT GLUCOSE, INTERFACED Routine 07/27/2023 8:13 EDT POCT GLUCOSE, INTERFACED Routine 07/26/2023 21:41 EDT POCT GLUCOSE, INTERFACED Routine 07/26/2023 18:08 EDT POCT GLUCOSE, INTERFACED Routine 07/26/2023 11:26 EDT POCT GLUCOSE, INTERFACED Routine 07/26/2023 7:40 EDT POCT GLUCOSE, INTERFACED Routine 07/25/2023 20:42 EDT POCT GLUCOSE, INTERFACED Routine 07/25/2023 18:15 EDT ECG REPORT - SCANNED 07/25/2023 13:55 EDT POCT GLUCOSE, INTERFACED Routine 07/25/2023 11:22 EDT COMPLETE BLOOD COUNT AND DIFFERENTIAL Routine 07/25/2023 8:59 EDT VITAMIN D (25,[place]) Routine 07/25/2023 8:5 8 EDT BASIC METABOLIC PANEL (BMP) Routine 07/25/2023 8:58 EDT POCT GLUCOSE, INTERFACED Routine 07/25/2023 6:48 EDT POCT GLUCOSE, INTERFACED Routine 07/24/2023 20:46 EDT POCT GLUCOSE, INTERFACED Routine 07/24/2023 18:09 EDT POCT GLUCOSE, INTERFACED Routine 07/24/2023 11:37 EDT POCT GLUCOSE, INTERFACED Routine 07/24/2023 7:53 EDT POCT GLUCOSE, INTERFACED Routine 07/23/2023 20:35 EDT POCT GLUCOSE, INTERFACED Routine 07/23/2023 17:01 EDT POCT GLUCOSE, INTERFACED Routine 07/23/2023 12:56 EDT POCT GLUCOSE, INTERFACED Routine 07/23/2023 9:23 EDT POCT GLUCOSE, INTERFACED Routine 07/22/2023 22:41 EDT POCT GLUCOSE, INTERFACED Routine 07/22/2023 18:09 EDT TROPONIN I Routine 07/22/2023 16:21 EDT EKG 12-LEAD STAT 07/22/2023 16:16 EDT POCT GLUCOSE, INTERFACED Routine 07/22/2023 11:26 EDT POCT GLUCOSE, INTERFACED Routine 07/22/2023 7:25 EDT PHOSPHORUS Add-On 07/22/2023 6:51 EDT MAGNESIUM Add-On 07/22/2023 6:51 EDT COMPLETE BLOOD COUNT AND DIFFERENTIAL Routine 07/22/2023 6:51 EDT BASIC METABOLIC PANEL (BMP) Routine 07/22/2023 6:51 EDT POCT GLUCOSE, INTERFACED Routine 07/21/2023 21:23 EDT POCT GLUCOSE, INTERFACED Routine 07/21/2023 17:42 EDT POCT GLUCOSE, INTERFACED Routine 07/21/2023 12:30 EDT POCT GLUCOSE, INTERFACED Routine 07/21/2023 7:52 EDT POCT GLUCOSE, INTERFACED Routine 07/20/2023 19:59 EDT POCT GLUCOSE, INTERFACED Routine 07/20/2023 18:12 EDT POCT GLUCOSE, INTERFACED Routine 07/20/2023 12:05 EDT POCT GLUCOSE, INTERFACED Routine 07/20/2023 7:13 EDT POCT GLUCOSE, INTERFACED Routine 07/19/2023 20:49 EDT POCT GLUCOSE, INTERFACED Routine 07/19/2023 17:09 EDT POCT GLUCOSE, INTERFACED Routine 07/19/2023 11:36 EDT POCT GLUCOSE, INTERFACED Routine 07/19/2023 7:30 EDT POCT GLUCOSE, INTERFACED Routine 07/18/2023 20:33 EDT POCT GLUCOSE, INTERFACED Routine 07/18/2023 18:20 EDT POCT GLUCOSE, INTERFACED Routine 07/18/2023 11:42 EDT POCT GLUCOSE, INTERFACED Routine 07/18/2023 8:36 EDT COMPLETE BLOOD COUNT AND DIFFERENTIAL Routine 07/18/2023 8:20 EDT BASIC METABOLIC PANEL (BMP) Routine 07/18/2023 8:20 EDT POCT GLUCOSE, INTERFACED Routine 07/18/2023 7:17 EDT POCT GLUCOSE, INTERFACED Routine 07/17/2023 20:24 EDT POCT GLUCOSE, INTERFACED Routine 07/17/2023 17:49 EDT POCT GLUCOSE, INTERFACED Routine 07/17/2023 11:47 EDT POCT GLUCOSE, INTERFACED Routine 07/17/2023 7:59 EDT POCT GLUCOSE, INTERFACED Routine 07/16/2023 21:31 EDT POCT GLUCOSE, INTERFACED Routine 07/16/2023 16:52 EDT POCT GLUCOSE, INTERFACED Routine 07/16/2023 11:35 EDT POCT GLUCOSE, INTERFACED Routine 07/16/2023 7:43 EDT POCT GLUCOSE, INTERFACED Routine 07/15/2023 20:31 EDT POCT GLUCOSE, INTERFACED Routine 07/15/2023 17:04 EDT POCT GLUCOSE, INTERFACED Routine 07/15/2023 11:20 EDT COMPLETE BLOOD COUNT AND DIFFERENTIAL Routine 07/15/2023 9:26 EDT BASIC METABOLIC PANEL (BMP) Routine 07/15/2023 9:26 EDT POCT GLUCOSE, INTERFACED Routine 07/15/2023 7:16 EDT POCT GLUCOSE, INTERFACED Routine 07/14/2023 20:42 EDT POCT GLUCOSE, INTERFACED Routine 07/14/2023 16:48 EDT POCT GLUCOSE, INTERFACED Routine 07/14/2023 11:59 EDT POCT GLUCOSE, INTERFACED Routine 07/14/2023 6:53 EDT POCT GLUCOSE, INTERFACED Routine 07/13/2023 20:26 EDT POCT GLUCOSE, INTERFACED Routine 07/13/2023 17:07 EDT POCT GLUCOSE, INTERFACED Routine 07/13/2023 11:23 EDT POCT GLUCOSE, INTERFACED Routine 07/13/2023 7:06 EDT POCT GLUCOSE, INTERFACED Routine 07/12/2023 21:13 EDT POCT GLUCOSE, INTERFACED Routine 07/12/2023 16:52 EDT POCT GLUCOSE, INTERFACED Routine 07/12/2023 11:18 EDT POCT GLUCOSE, INTERFACED Routine 07/12/2023 7:32 EDT POCT GLUCOSE, INTERFACED Routine 07/11/2023 21:54 EDT POCT GLUCOSE, INTERFACED Routine 07/11/2023 20:43 EDT POCT GLUCOSE, INTERFACED Routine 07/11/2023 17:54 EDT POCT GLUCOSE, INTERFACED Routine 07/11/2023 13:06 EDT POCT GLUCOSE, INTERFACED Routine 07/11/2023 7:48 EDT DIFFERENTIAL, AUTOMATED MANUAL Today 07/11/2023 6:36 EDT OSMOLALITY Routine 07/11/2023 6:36 EDT COMPLETE BLOOD COUNT AND DIFFERENTIAL Routine 07/11/2023 6:36 EDT BASIC METABOLIC PANEL (BMP) Routine 07/11/2023 6:36 EDT CREATININE, URINE RANDOM Routine 07/11/2023 4:58 EDT UREA NITROGEN, URINE RANDOM Routine 07/11/2023 4:58 EDT OSMOLALITY, URINE Routine 07/11/2023 4:5 8 EDT POCT GLUCOSE, INTERFACED Routine 07/10/2023 21:29 EDT POCT GLUCOSE, INTERFACED Routine 07/10/2023 19:30 EDT POCT GLUCOSE, INTERFACED Routine 07/10/2023 18:20 EDT POCT GLUCOSE, INTERFACED Routine 07/10/2023 14:36 EDT POCT GLUCOSE, INTERFACED Routine 07/10/2023 11:59 EDT ANESTHESIA INTUBATION Routine 07/10/2023 10:51 EDT WOUND VAC I&D PERINEUM 07/10/2023 10:30 EDT Necrotizing soft tissue infection POCT GLUCOSE, INTERFACED Routine 07/10/2023 8:32 EDT POCT GLUCOSE, INTERFACED Routine 07/09/2023 20:38 EDT POCT GLUCOSE, INTERFACED Routine 07/09/2023 17:06 EDT POCT GLUCOSE, INTERFACED Routine 07/09/2023 11:59 EDT POCT GLUCOSE, INTERFACED Routine 07/09/2023 7:44 EDT DIFFERENTIAL, AUTOMATED MANUAL Today 07/09/2023 6:37 EDT BASIC METABOLIC PANEL (BMP) Routine 07/09/2023 6:37 EDT MAGNESIUM Routine 07/09/2023 6:37 EDT PHOSPHORUS Routine 07/09/2023 6:37 EDT COMPLETE BLOOD COUNT AND DIFFERENTIAL Routine 07/09/2023 6:37 EDT SODIUM Routine 07/08/2023 23:31 EDT POCT GLUCOSE, INTERFACED Routine 07/08/2023 21:52 EDT SODIUM Routine 07/08/2023 18:49 EDT POCT GLUCOSE, INTERFACED Routine 07/08/2023 17:41 EDT POCT GLUCOSE, INTERFACED Routine 07/08/2023 13:03 EDT SODIUM Routine 07/08/2023 12:03 EDT POCT GLUCOSE, INTERFACED Routine 07/08/2023 7:32 EDT DIFFERENTIAL, AUTOMATED MANUAL Today 07/08/2023 6:20 EDT BASIC METABOLIC PANEL (BMP) Routine 07/08/2023 6:20 EDT MAGNESIUM Routine 07/08/2023 6:20 EDT PHOSPHORUS Routine 07/08/2023 6:20 EDT COMPLETE BLOOD COUNT AND DIFFERENTIAL Routine 07/08/2023 6:20 EDT SODIUM Routine 07/07/2023 23:48 EDT POCT GLUCOSE, INTERFACED Routine 07/07/2023 21:15 EDT SODIUM Routine 07/07/2023 18:01 EDT POCT GLUCOSE, INTERFACED Routine 07/07/2023 17:31 EDT SODIUM Routine 07/07/2023 12:45 EDT POCT GLUCOSE, INTERFACED Routine 07/07/2023 11:49 EDT POCT GLUCOSE, INTERFACED Routine 07/07/2023 6:54 EDT DIFFERENTIAL, AUTOMATED MANUAL Today 07/07/2023 6:45 EDT BASIC METABOLIC PANEL (BMP) Routine 07/07/2023 6:45 EDT MAGNESIUM Routine 07/07/2023 6:45 EDT PHOSPHORUS Routine 07/07/2023 6:45 EDT COMPLETE BLOOD COUNT AND DIFFERENTIAL Routine 07/07/2023 6:45 EDT SODIUM Routine 07/07/2023 0:23 EDT POCT GLUCOSE, INTERFACED Routine 07/06/2023 20:31 EDT POCT GLUCOSE, INTERFACED Routine 07/06/2023 17:48 EDT SODIUM Routine 07/06/2023 17:48 EDT SODIUM Routine 07/06/2023 12:36 EDT POCT GLUCOSE, INTERFACED Routine 07/06/2023 11:35 EDT DIFFERENTIAL, AUTOMATED MANUAL Today 07/06/2023 7:25 EDT BASIC METABOLIC PANEL (BMP) Routine 07/06/2023 7:25 EDT MAGNESIUM Routine 07/06/2023 7:25 EDT PHOSPHORUS Routine 07/06/2023 7:25 EDT COMPLETE BLOOD COUNT AND DIFFERENTIAL Routine 07/06/2023 7:25 EDT POCT GLUCOSE, INTERFACED Routine 07/06/2023 6:22 EDT SODIUM Routine 07/05/2023 23:46 EDT POCT GLUCOSE, INTERFACED Routine 07/05/2023 20:38 EDT SODIUM Routine 07/05/2023 17:53 EDT POCT GLUCOSE, INTERFACED Routine 07/05/2023 17:10 EDT POCT GLUCOSE, INTERFACED Routine 07/05/2023 13:46 EDT SODIUM Routine 07/05/2023 11:48 EDT ECG REPORT - SCANNED 07/05/2023 11:36 EDT TRANSFUSE RED BLOOD CELLS Routine 07/05/2023 10:46 EDT POCT GLUCOSE, INTERFACED Routine 07/05/2023 10:36 EDT TYPE AND SCREEN STAT 07/05/2023 9:17 EDT POCT GLUCOSE, INTERFACED Routine 07/05/2023 8:43 EDT PREPARE RED BLOOD CELLS Routine 07/05/2023 8:17 EDT COMPLETE BLOOD COUNT STAT 07/05/2023 7:44 EDT DIFFERENTIAL, AUTOMATED MANUAL Today 07/05/2023 6:25 EDT COMPLETE BLOOD COUNT AND DIFFERENTIAL Routine 07/05/2023 6:25 EDT ALBUMIN Add-On 07/05/2023 6:24 EDT BASIC METABOLIC PANEL (BMP) Routine 07/05/2023 6:24 EDT MAGNESIUM Routine 07/05/2023 6:24 EDT PHOSPHORUS Routine 07/05/2023 6:24 EDT SODIUM Routine 07/05/2023 0:29 EDT POCT GLUCOSE, INTERFACED Routine 07/04/2023 22:46 EDT POCT GLUCOSE, INTERFACED Routine 07/04/2023 21:46 EDT SODIUM Routine 07/04/2023 17:41 EDT POCT GLUCOSE, INTERFACED Routine 07/04/2023 16:58 EDT SODIUM Routine 07/04/2023 14:01 EDT ECG REPORT - SCANNED 07/04/2023 13:42 EDT POCT GLUCOSE, INTERFACED Routine 07/04/2023 12:22 EDT BACTERIAL CULTURE/SMEAR, RESPIRATORY Routine 07/04/2023 8:03 EDT POCT GLUCOSE, INTERFACED Routine 07/04/2023 7:11 EDT XR CHEST PORTABLE 1 VIEW STAT 07/04/2023 7:03 EDT BASIC METABOLIC PANEL (BMP) Routine 07/04/2023 6:30 EDT MAGNESIUM Routine 07/04/2023 6:30 EDT PHOSPHORUS Routine 07/04/2023 6:30 EDT COMPLETE BLOOD COUNT AND DIFFERENTIAL Routine 07/04/2023 6:30 EDT ANESTHESIA INTUBATION Routine 07/04/2023 5:20 EDT ANESTHESIA INTUBATION Routine 07/04/2023 5:20 EDT XR CHEST PORTABLE 1 VIEW STAT 07/04/2023 4:14 EDT XR CHEST PORTABLE 1 VIEW STAT 07/04/2023 2:25 EDT SODIUM Routine 07/03/2023 23:56 EDT POCT GLUCOSE, INTERFACED Routine 07/03/2023 21:14 EDT RESPIRATORY CARE EVALUATION ONLY Routine 07/03/2023 20:55 EDT SODIUM Routine 07/03/2023 17:44 EDT POCT GLUCOSE, INTERFACED Routine 07/03/2023 17:[address] CHEST W CONTRAST STAT 07/03/2023 1 6:47 EDT SODIUM Routine 07/03/2023 15:35 EDT AIRWAY CLEARANCE THERAPY Routine 07/03/2023 11:57 EDT AIRWAY CLEARANCE THERAPY Routine 07/03/2023 11:57 EDT POCT GLUCOSE, INTERFACED Routine 07/03/2023 11:47 EDT XR CHEST PORTABLE 1 VIEW STAT 07/03/2023 8:44 EDT POCT GLUCOSE, INTERFACED Routine 07/03/2023 8:19 EDT POCT GLUCOSE, INTERFACED Routine 07/03/2023 6:59 EDT DIFFERENTIAL, AUTOMATED MANUAL Today 07/03/2023 6:29 EDT HN LAB CBC SMEAR REVIEW Today 07/03/2023 6:29 EDT TROPONIN I STAT 07/03/2023 6:29 EDT BASIC METABOLIC PANEL (BMP) Routine 07/03/2023 6:29 EDT MAGNESIUM Routine 07/03/2023 6:29 EDT PHOSPHORUS Routine 07/03/2023 6:29 EDT COMPLETE BLOOD COUNT AND DIFFERENTIAL Routine 07/03/2023 6:29 EDT EKG 12-LEAD STAT 07/03/2023 3:57 EDT POCT GLUCOSE, INTERFACED Routine 07/03/2023 2:44 EDT NEBULIZER TX INTERMITTENT Routine 07/03/2023 0:05 EDT NEBULIZER TX INTERMITTENT Routine 07/03/2023 0:05 EDT AIRWAY CLEARANCE THERAPY Routine 07/03/2023 0:05 EDT SODIUM Routine 07/02/2023 23:40 EDT POCT GLUCOSE, INTERFACED Routine 07/02/2023 20:24 EDT SODIUM Routine 07/02/2023 17:47 EDT POCT GLUCOSE, INTERFACED Routine 07/02/2023 17:41 EDT POCT GLUCOSE, INTERFACED Routine 07/02/2023 13:12 EDT SODIUM Routine 07/02/2023 12:54 EDT ECG REPORT - SCANNED 07/02/2023 10:05 EDT POCT GLUCOSE, INTERFACED Routine 07/02/2023 7:54 EDT DIFFERENTIAL, AUTOMATED MANUAL Today 07/02/2023 7:42 EDT BASIC METABOLIC PANEL (BMP) Routine 07/02/2023 7:42 EDT MAGNESIUM Routine 07/02/2023 7:42 EDT PHOSPHORUS Routine 07/02/2023 7:42 EDT COMPLETE BLOOD COUNT AND DIFFERENTIAL Routine 07/02/2023 7:42 EDT NEBULIZER TX INTERMITTENT Routine 07/02/2023 7:32 EDT NEBULIZER TX INTERMITTENT Routine 07/02/2023 7:32 EDT NEBULIZER TX INTERMITTENT Routine 07/02/2023 7:32 EDT NEBULIZER TX INTERMITTENT Routine 07/02/2023 7:32 EDT AIRWAY CLEARANCE THERAPY Routine 07/02/2023 7:32 EDT AIRWAY CLEARANCE THERAPY Routine 07/02/2023 7:32 EDT AIRWAY CLEARANCE THERAPY Routine 07/02/2023 7:32 EDT AIRWAY CLEARANCE THERAPY Routine 07/02/2023 7:32 EDT SODIUM Routine 07/01/2023 23:44 EDT POCT GLUCOSE, INTERFACED Routine 07/01/2023 20:01 EDT SODIUM Routine 07/01/2023 18:10 EDT POCT GLUCOSE, INTERFACED Routine 07/01/2023 17:33 EDT SODIUM Routine 07/01/2023 15:10 EDT ECG REPORT - SCANNED 07/01/2023 13:46 EDT POCT GLUCOSE, INTERFACED Routine 07/01/2023 12:56 EDT XR CHEST 2 VIEWS Routine 07/01/2023 10:2 2 EDT POCT GLUCOSE, INTERFACED Routine 07/01/2023 8:33 EDT ECG REPORT - SCANNED 07/01/2023 6:53 EDT DIFFERENTIAL, AUTOMATED MANUAL Today 07/01/2023 2:29 EDT BASIC METABOLIC PANEL (BMP) Routine 07/01/2023 2:29 EDT MAGNESIUM Routine 07/01/2023 2:29 EDT PHOSPHORUS Routine 07/01/2023 2:29 EDT COMPLETE BLOOD COUNT AND DIFFERENTIAL Routine 07/01/2023 2:29 EDT SODIUM Routine 06/30/2023 23:47 EDT POCT GLUCOSE, INTERFACED Routine 06/30/2023 20:59 EDT SODIUM Routine 06/30/2023 17:51 EDT POCT GLUCOSE, INTERFACED Routine 06/30/2023 16:57 EDT XR CHEST PORTABLE 1 VIEW Routine 06/30/2023 13:33 EDT POCT GLUCOSE, INTERFACED Routine 06/30/2023 12:55 EDT SODIUM Routine 06/30/2023 12:12 EDT POCT GLUCOSE, INTERFACED Routine 06/30/2023 11:48 EDT BASIC METABOLIC PANEL (BMP) Routine 06/30/2023 8:04 EDT MAGNESIUM Routine 06/30/2023 8:04 EDT PHOSPHORUS Routine 06/30/2023 8:04 EDT COMPLETE BLOOD COUNT AND DIFFERENTIAL Routine 06/30/2023 8:04 EDT POCT GLUCOSE, INTERFACED Routine 06/30/2023 7:17 EDT SODIUM Routine 06/29/2023 23:37 EDT POCT GLUCOSE, INTERFACED Routine 06/29/2023 20:45 EDT DRY POWDERED OR METERED DOSE INHALER Routine 06/29/2023 19:36 EDT SODIUM Routine 06/29/2023 17:45 EDT POCT GLUCOSE, INTERFACED Routine 06/29/2023 17:03 EDT SODIUM Routine 06/29/2023 14:33 EDT COMPLETE BLOOD COUNT AND DIFFERENTIAL Routine 06/29/2023 14:33 EDT POCT GLUCOSE, INTERFACED Routine 06/29/2023 11:58 EDT BASIC METABOLIC PANEL (BMP) Routine 06/29/2023 9:15 EDT MAGNESIUM Routine 06/29/2023 9:15 EDT PHOSPHORUS Routine 06/29/2023 9:15 EDT POCT GLUCOSE, INTERFACED Routine 06/29/2023 8:35 EDT SODIUM Routine 06/29/2023 0:04 EDT POCT GLUCOSE, INTERFACED Routine 06/28/2023 20:46 EDT POCT GLUCOSE, INTERFACED Routine 06/28/2023 18:38 EDT SODIUM Routine 06/28/2023 18:10 EDT SODIUM Routine 06/28/2023 14:43 EDT POCT GLUCOSE, INTERFACED Routine 06/28/2023 14:13 EDT BASIC METABOLIC PANEL (BMP) Routine 06/28/2023 9:36 EDT MAGNESIUM Routine 06/28/2023 9:36 EDT PHOSPHORUS Routine 06/28/2023 9:36 EDT COMPLETE BLOOD COUNT AND DIFFERENTIAL Routine 06/28/2023 9:36 EDT POCT GLUCOSE, INTERFACED Routine 06/28/2023 7:33 EDT POCT GLUCOSE, INTERFACED Routine 06/28/2023 6:13 EDT EKG 12-LEAD STAT 06/28/2023 2:12 EDT POCT GLUCOSE, INTERFACED Routine 06/27/2023 23:46 EDT POCT GLUCOSE, INTERFACED Routine 06/27/2023 17:55 EDT ECG REPORT - SCANNED 06/27/2023 16:14 EDT POCT GLUCOSE, INTERFACED Routine 06/27/2023 12:47 EDT BASIC METABOLIC PANEL (BMP) Routine 06/27/2023 9:06 EDT MAGNESIUM Routine 06/27/2023 9:06 EDT PHOSPHORUS Routine 06/27/2023 9:06 EDT COMPLETE BLOOD COUNT AND DIFFERENTIAL Routine 06/27/2023 9:06 EDT POCT GLUCOSE, INTERFACED Routine 06/27/2023 8:16 EDT POCT GLUCOSE, INTERFACED Routine 06/27/2023 5:13 EDT POCT GLUCOSE, INTERFACED Routine 06/26/2023 23:29 EDT ANESTHESIA INTUBATION Routine 06/26/2023 21:30 EDT DEBRIDEMENT, OPEN WOUND, ADDITIONAL 20 SQ CM FOLLOWING INITIAL 20 SQ CM DEBRIDEMENT OF OPEN WOUND 06/26/2023 21:05 EDT Necrotizing soft tissue infection POCT GLUCOSE, INTERFACED Routine 06/26/2023 20:00 EDT POCT GLUCOSE, INTERFACED Routine 06/26/2023 17:31 EDT POCT GLUCOSE, INTERFACED Routine 06/26/2023 13:18 EDT TYPE AND SCREEN Routine 06/26/2023 11:46 EDT POCT GLUCOSE, INTERFACED Routine 06/26/2023 10:49 EDT MRSA PCR Routine 06/26/2023 8:08 EDT COMPLETE BLOOD COUNT AND DIFFERENTIAL Routine 06/26/2023 8:04 EDT AIRWAY CLEARANCE THERAPY Routine 06/26/2023 7:34 EDT AIRWAY CLEARANCE THERAPY Routine 06/26/2023 7:34 EDT AIRWAY CLEARANCE THERAPY Routine 06/26/2023 7:34 EDT POCT GLUCOSE, INTERFACED Routine 06/26/2023 7:29 EDT XR CHEST PORTABLE 1 VIEW STAT 06/26/2023 6:46 EDT BASIC METABOLIC PANEL (BMP) Routine 06/26/2023 6:08 EDT MAGNESIUM Routine 06/26/2023 6:08 EDT PHOSPHORUS Routine 06/26/2023 6:08 EDT COMPLETE BLOOD COUNT AND DIFFERENTIAL Routine 06/26/2023 6:08 EDT POCT BLOOD GAS, EG6 I-STAT STAT 06/26/2023 0:37 EDT EKG 12-LEAD STAT 06/25/2023 23:32 EDT EKG 12-LEAD STAT 06/25/2023 23:20 EDT POCT GLUCOSE, INTERFACED Routine 06/25/2023 23:14 EDT POCT BLOOD GAS, EG6 I-STAT Routine 06/25/2023 23:11 EDT XR CHEST PORTABLE 1 VIEW Routine 06/25/2023 22:40 EDT SLIDE REQUEST STAT 06/25/2023 22:38 EDT TROPONIN I STAT 06/25/2023 22:38 EDT BASIC METABOLIC PANEL (BMP) STAT 06/25/2023 22:38 EDT COMPLETE BLOOD COUNT STAT 06/25/2023 22:38 EDT POCT GLUCOSE, INTERFACED Routine 06/25/2023 17:07 EDT POCT GLUCOSE, INTERFACED Routine 06/25/2023 12:05 EDT BASIC METABOLIC PANEL (BMP) Routine 06/25/2023 8:33 EDT MAGNESIUM Routine 06/25/2023 8:33 EDT PHOSPHORUS Routine 06/25/2023 8:33 EDT COMPLETE BLOOD COUNT AND DIFFERENTIAL Routine 06/25/2023 8:33 EDT POCT GLUCOSE, INTERFACED Routine 06/25/2023 5:15 EDT POCT GLUCOSE, INTERFACED Routine 06/24/2023 23:25 EDT POCT GLUCOSE, INTERFACED Routine 06/24/2023 17:57 EDT POCT GLUCOSE, INTERFACED Routine 06/24/2023 12:45 EDT EKG 12-LEAD STAT 06/24/2023 5:20 EDT POCT GLUCOSE, INTERFACED Routine 06/24/2023 5:07 EDT TROPONIN I STAT 06/24/2023 5:07 EDT BASIC METABOLIC PANEL (BMP) Routine 06/24/2023 5:07 EDT MAGNESIUM Routine 06/24/2023 5:07 EDT PHOSPHORUS Routine 06/24/2023 5:07 EDT COMPLETE BLOOD COUNT AND DIFFERENTIAL Routine 06/24/2023 5:07 EDT ECG REPORT - SCANNED 06/24/2023 3:47 EDT ECG REPORT - SCANNED 06/24/2023 3:47 EDT POCT GLUCOSE, INTERFACED Routine 06/24/2023 0:15 EDT POCT GLUCOSE, INTERFACED Routine 06/23/2023 17:44 EDT POCT GLUCOSE, INTERFACED Routine 06/23/2023 11:56 EDT POCT GLUCOSE, INTERFACED Routine 06/23/2023 5:52 EDT BASIC METABOLIC PANEL (BMP) Routine 06/23/2023 5:44 EDT MAGNESIUM Routine 06/23/2023 5:44 EDT PHOSPHORUS Routine 06/23/2023 5:44 EDT COMPLETE BLOOD COUNT AND DIFFERENTIAL Routine 06/23/2023 5:44 EDT POCT GLUCOSE, INTERFACED Routine 06/22/2023 23:48 EDT POCT GLUCOSE, INTERFACED Routine 06/22/2023 17:05 EDT POCT GLUCOSE, INTERFACED Routine 06/22/2023 11:50 EDT POCT GLUCOSE, INTERFACED Routine 06/22/2023 9:12 EDT TROPONIN I Routine 06/22/2023 8:04 EDT POCT GLUCOSE, INTERFACED Routine 06/22/2023 8:03 EDT EKG 12-LEAD Routine 06/22/2023 7:49 EDT POCT GLUCOSE, INTERFACED Routine 06/22/2023 7:30 EDT BASIC METABOLIC PANEL (BMP) Routine 06/22/2023 6:04 EDT MAGNESIUM Routine 06/22/2023 6:04 EDT PHOSPHORUS Routine 06/22/2023 6:04 EDT COMPLETE BLOOD COUNT AND DIFFERENTIAL Routine 06/22/2023 6:04 EDT POCT GLUCOSE, INTERFACED Routine 06/22/2023 5:36 EDT POCT GLUCOSE, INTERFACED Routine 06/22/2023 0:20 EDT POCT GLUCOSE, INTERFACED Routine 06/21/2023 16:42 EDT POCT GLUCOSE, INTERFACED Routine 06/21/2023 11:30 EDT POCT GLUCOSE, INTERFACED Routine 06/21/2023 9:41 EDT POCT GLUCOSE, INTERFACED Routine 06/21/2023 5:09 EDT DIFFERENTIAL, AUTOMATED MANUAL Today 06/21/2023 5:07 EDT BASIC METABOLIC PANEL (BMP) Routine 06/21/2023 5:07 EDT MAGNESIUM Routine 06/21/2023 5:07 EDT PHOSPHORUS Routine 06/21/2023 5:07 EDT COMPLETE BLOOD COUNT AND DIFFERENTIAL Routine 06/21/2023 5:07 EDT POCT GLUCOSE, INTERFACED Routine 06/20/2023 23:55 EDT POCT GLUCOSE, INTERFACED Routine 06/20/2023 18:51 EDT XR CHEST PORTABLE 1 VIEW Routine 06/20/2023 15:03 EDT XR FEEDING TUBE PLACEMENT Routine 06/20/2023 14:28 EDT POCT GLUCOSE, INTERFACED Routine 06/20/2023 12:23 EDT ECG REPORT - SCANNED 06/20/2023 9:33 EDT DIFFERENTIAL, AUTOMATED MANUAL Today 06/20/2023 5:01 EDT BASIC METABOLIC PANEL (BMP) Routine 06/20/2023 5:01 EDT MAGNESIUM Routine 06/20/2023 5:01 EDT PHOSPHORUS Routine 06/20/2023 5:01 EDT COMPLETE BLOOD COUNT AND DIFFERENTIAL Routine 06/20/2023 5:01 EDT POCT GLUCOSE, INTERFACED Routine 06/20/2023 5:00 EDT POCT GLUCOSE, INTERFACED Routine 06/20/2023 2:03 EDT POCT GLUCOSE, INTERFACED Routine 06/19/2023 18:06 EDT ANESTHESIA INTUBATION Routine 06/19/2023 13:30 EDT INCISION AND DRAINAGE, ABSCESS, ISCHIORECTAL OR PERIRECTAL 06/19/2023 12:59 EDT Necrotizing soft tissue infection Special Needs Versajet will be needed; BASIC METABOLIC PANEL (BMP) Routine 06/19/2023 12:28 EDT POCT GLUCOSE, INTERFACED Routine 06/19/2023 11:51 EDT TRANSFUSION RECORD - SCANNED 06/19/2023 11:42 EDT POCT GLUCOSE, INTERFACED Routine 06/19/2023 10:12 EDT TRANSTHORACIC ECHO (TTE) COMPLETE STAT 06/19/2023 9:46 EDT EKG 12-LEAD STAT 06/19/2023 9:07 EDT POCT GLUCOSE, INTERFACED Routine 06/19/2023 8:06 EDT DIFFERENTIAL, AUTOMATED MANUAL Today 06/19/2023 5:04 EDT COMPLETE BLOOD COUNT AND DIFFERENTIAL Routine 06/19/2023 5:04 EDT BASIC METABOLIC PANEL (BMP) Routine 06/19/2023 5:03 EDT MAGNESIUM Routine 06/19/2023 5:03 EDT PHOSPHORUS Routine 06/19/2023 5:03 EDT POCT BLOOD GAS, EG6 I-STAT Routine 06/19/2023 2:58 EDT EKG 12-LEAD Routine 06/19/2023 2:03 EDT POCT GLUCOSE, INTERFACED Routine 06/19/2023 1:20 EDT POCT GLUCOSE, INTERFACED Routine 06/18/2023 17:20 EDT XR FEEDING TUBE PLACEMENT Routine 06/18/2023 15:42 EDT XR CHEST PORTABLE LINE PLACEMENT Routine 06/18/2023 15:41 EDT INSERT CENTRAL LINE Routine 06/18/2023 1 3:30 EDT Complete heart block (HCC-CMS) INSERT CENTRAL LINE Routine 06/18/2023 1 3:30 EDT Complete heart block (HCC-CMS) POCT GLUCOSE, INTERFACED Routine 06/18/2023 11:53 EDT POCT BLOOD GAS, EG6 I-STAT Routine 06/18/2023 9:[address] CHEST WO CONTRAST Routine 06/18/2023 9:07 EDT TROPONIN I Routine 06/18/2023 8:16 EDT POCT BLOOD GAS, EG6 I-STAT Routine 06/18/2023 4:39 EDT DIFFERENTIAL, AUTOMATED MANUAL Today 06/18/2023 4:32 EDT TRIGLYCERIDE Routine 06/18/2023 4:32 EDT MAGNESIUM Routine 06/18/2023 4:32 EDT PHOSPHORUS Routine 06/18/2023 4:32 EDT COMPLETE BLOOD COUNT AND DIFFERENTIAL Routine 06/18/2023 4:32 EDT BASIC METABOLIC PANEL (BMP) Routine 06/18/2023 4:32 EDT XR CHEST PORTABLE 1 VIEW Routine 06/18/2023 1:23 EDT POCT BLOOD GAS, EG6 I-STAT Routine 06/18/2023 0:39 EDT TROPONIN I Routine 06/18/2023 0:13 EDT EKG 12-LEAD STAT 06/18/2023 0:08 EDT POCT GLUCOSE, INTERFACED Routine 06/17/2023 23:46 EDT CALCIUM, IONIZED Routine 06/17/2023 23:4 3 EDT BASIC METABOLIC PANEL (BMP) Routine 06/17/2023 23:43 EDT EXTUBATION Routine 06/17/2023 20:41 EDT COMPLETE BLOOD COUNT Routine 06/17/2023 17:34 EDT BASIC METABOLIC PANEL (BMP) Routine 06/17/2023 17:34 EDT POCT GLUCOSE, INTERFACED Routine 06/17/2023 17:33 EDT INCISION AND DRAINAGE, ABSCESS, ISCHIORECTAL OR PERIRECTAL 06/17/2023 13:49 EDT Necrotizing soft tissue infection ECG REPORT - SCANNED 06/17/2023 12:52 EDT POCT GLUCOSE, INTERFACED Routine 06/17/2023 11:31 EDT BASIC METABOLIC PANEL (BMP) Routine 06/17/2023 11:31 EDT TRANSFUSE RED BLOOD CELLS Routine 06/17/2023 8:34 EDT CALCIUM, IONIZED Routine 06/17/2023 8:06 EDT PREPARE RED BLOOD CELLS Routine 06/17/2023 7:40 EDT POCT GLUCOSE, INTERFACED Routine 06/17/2023 6:09 EDT POCT BLOOD GAS, EG6 I-STAT Routine 06/17/2023 4:06 EDT TRIGLYCERIDE Add-On 06/17/2023 4:06 EDT DIFFERENTIAL, AUTOMATED MANUAL Today 06/17/2023 4:06 EDT MAGNESIUM Routine 06/17/2023 4:06 EDT PHOSPHORUS Routine 06/17/2023 4:06 EDT COMPLETE BLOOD COUNT AND DIFFERENTIAL Routine 06/17/2023 4:06 EDT BASIC METABOLIC PANEL (BMP) Routine 06/17/2023 4:06 EDT BASIC METABOLIC PANEL (BMP) Routine 06/16/2023 23:51 EDT POCT GLUCOSE, INTERFACED Routine 06/16/2023 23:50 EDT CALCIUM, IONIZED Routine 06/16/2023 21:2 6 EDT XR CHEST PORTABLE LINE PLACEMENT Routine 06/16/2023 19:30 EDT POCT GLUCOSE, INTERFACED Routine 06/16/2023 18:08 EDT PHOSPHORUS Routine 06/16/2023 18:06 EDT BASIC METABOLIC PANEL (BMP) Routine 06/16/2023 18:06 EDT BACTERIAL CULTURE, BLOOD Routine 06/16/2023 12:56 EDT BACTERIAL CULTURE, BLOOD Routine 06/16/2023 12:46 EDT POCT GLUCOSE, INTERFACED Routine 06/16/2023 11:36 EDT TROPONIN I Routine 06/16/2023 11:33 EDT BASIC METABOLIC PANEL (BMP) Routine 06/16/2023 11:33 EDT POCT BLOOD GAS, EG6 I-STAT Routine 06/16/2023 10:58 EDT POCT GLUCOSE, INTERFACED Routine 06/16/2023 10:57 EDT XR CHEST PORTABLE LINE PLACEMENT Routine 06/16/2023 10:55 EDT XR CHEST PORTABLE LINE PLACEMENT Routine 06/16/2023 8:57 EDT ANESTHESIA INTUBATION Routine 06/16/2023 8:30 EDT ANESTHESIA INTUBATION Routine 06/16/2023 8:30 EDT HOLD SST Routine 06/16/2023 8:20 EDT HOLD BLUE TOP Routine 06/16/2023 8:20 EDT LYME AB Add-On 06/16/2023 8:20 EDT POCT BLOOD GAS, EG6 I-STAT Routine 06/16/2023 8:16 EDT SLIDE REQUEST STAT 06/16/2023 8:05 EDT COMPLETE BLOOD COUNT STAT 06/16/2023 8:05 EDT PHOSPHORUS STAT 06/16/2023 8:05 EDT CALCIUM, IONIZED STAT 06/16/2023 8:05 EDT LACTIC ACID STAT 06/16/2023 8:05 EDT BASIC METABOLIC PANEL (BMP) STAT 06/16/2023 8:05 EDT TROPONIN I Routine 06/16/2023 5:51 EDT EKG 12-LEAD Routine 06/16/2023 5:50 EDT DIFFERENTIAL, AUTOMATED MANUAL Today 06/16/2023 4:57 EDT COMPLETE BLOOD COUNT AND DIFFERENTIAL Routine 06/16/2023 4:57 EDT BASIC METABOLIC PANEL (BMP) Routine 06/16/2023 4:57 EDT POCT GLUCOSE, INTERFACED Routine 06/16/2023 4:56 EDT BASIC METABOLIC PANEL (BMP) Routine 06/16/2023 0:15 EDT POCT GLUCOSE, INTERFACED Routine 06/16/2023 0:14 EDT POCT GLUCOSE, INTERFACED Routine 06/15/2023 20:23 EDT POCT BLOOD GAS, EG6 I-STAT Routine 06/15/2023 20:07 EDT POCT GLUCOSE, INTERFACED Routine 06/15/2023 18:42 EDT POCT BLOOD GAS, EG6 I-STAT Routine 06/15/2023 17:41 EDT DIFFERENTIAL, AUTOMATED MANUAL Today 06/15/2023 17:40 EDT LACTIC ACID Routine 06/15/2023 17:40 EDT COMPLETE BLOOD COUNT AND DIFFERENTIAL Routine 06/15/2023 17:40 EDT BASIC METABOLIC PANEL (BMP) Routine 06/15/2023 17:40 EDT POCT GLUCOSE, INTERFACED Routine 06/15/2023 17:39 EDT POCT GLUCOSE, INTERFACED Routine 06/15/2023 16:18 EDT POCT GLUCOSE, INTERFACED Routine 06/15/2023 14:59 EDT POCT GLUCOSE, INTERFACED Routine 06/15/2023 13:53 EDT POCT GLUCOSE, INTERFACED Routine 06/15/2023 12:58 EDT POCT GLUCOSE, INTERFACED Routine 06/15/2023 11:58 EDT CALCIUM, IONIZED STAT 06/15/2023 11:5 2 EDT BASIC METABOLIC PANEL (BMP) Routine 06/15/2023 11:49 EDT POCT GLUCOSE, INTERFACED Routine 06/15/2023 10:58 EDT XR FEEDING TUBE PLACEMENT Routine 06/15/2023 10:41 EDT POCT GLUCOSE, INTERFACED Routine 06/15/2023 9:56 EDT EXTUBATION Routine 06/15/2023 9:37 EDT EXTUBATION Routine 06/15/2023 9:17 EDT POCT GLUCOSE, INTERFACED Routine 06/15/2023 8:43 EDT POCT GLUCOSE, INTERFACED Routine 06/15/2023 7:41 EDT CALCIUM, IONIZED Routine 06/15/2023 7:21 EDT POCT GLUCOSE, INTERFACED Routine 06/15/2023 6:52 EDT POCT GLUCOSE, INTERFACED Routine 06/15/2023 5:55 EDT POCT BLOOD GAS, EG6 I-STAT Routine 06/15/2023 5:25 EDT POCT GLUCOSE, INTERFACED Routine 06/15/2023 5:10 EDT DIFFERENTIAL, AUTOMATED MANUAL Today 06/15/2023 5:10 EDT COMPLETE BLOOD COUNT AND DIFFERENTIAL STAT 06/15/2023 5:10 EDT PHOSPHORUS STAT 06/15/2023 5:10 EDT MAGNESIUM STAT 06/15/2023 5:10 EDT LACTIC ACID STAT 06/15/2023 5:10 EDT VANCOMYCIN, RANDOM Routine 06/15/2023 5: 10 EDT BASIC METABOLIC PANEL (BMP) STAT 06/15/2023 5:10 EDT POCT GLUCOSE, INTERFACED Routine 06/15/2023 4:04 EDT POCT GLUCOSE, INTERFACED Routine 06/15/2023 3:35 EDT EKG 12-LEAD Routine 06/15/2023 1:38 EDT XR CHEST PORTABLE LINE PLACEMENT STAT 06/15/2023 1:15 EDT PROTIME Routine 06/15/2023 1:10 EDT PTT Routine 06/15/2023 1:10 EDT POCT GLUCOSE, INTERFACED Routine 06/15/2023 1:07 EDT POCT BLOOD GAS, CG8 I-STAT Routine 06/15/2023 1:01 EDT DIFFERENTIAL, AUTOMATED MANUAL Today 06/15/2023 1:01 EDT LACTIC ACID Routine 06/15/2023 1:01 EDT COMPLETE BLOOD COUNT AND DIFFERENTIAL Routine 06/15/2023 1:01 EDT BASIC METABOLIC PANEL (BMP) STAT 06/15/2023 1:01 EDT TRANSFUSE RED BLOOD CELLS Routine 06/14/2023 22:57 EDT ANAEROBE CULTURE/SMEAR(INC. AEROBES), OTHER Routine 06/14/2023 22:51 EDT FUNGUS CULTURE/SMEAR Routine 06/14/2023 22:51 EDT TRANSFUSE RED BLOOD CELLS Routine 06/14/2023 22:25 EDT ANESTHESIA INTUBATION Routine 06/14/2023 22:03 EDT POCT GLUCOSE, INTERFACED Routine 06/14/2023 22:00 EDT DEBRIDEMENT, SUBCUTANEOUS TISSUE 06/14/2023 21:05 EDT Necrotizing soft tissue infection NEGATIVE PRESSURE WOUND THERAPY WITH DISPOSIBLE EQUIPMENT 06/14/2023 21:05 EDT Necrotizing soft tissue infection TRANSFUSE RED BLOOD CELLS Routine 06/14/2023 20:19 EDT TRANSFUSE RED BLOOD CELLS Routine 06/14/2023 20:13 EDT PREPARE RED BLOOD CELLS Routine 06/14/2023 19:55 EDT PREPARE RED BLOOD CELLS Routine 06/14/2023 19:55 EDT PREPARE RED BLOOD CELLS Routine 06/14/2023 19:55 EDT PREPARE RED BLOOD CELLS Routine 06/14/2023 19:55 EDT PREPARE RED BLOOD CELLS Routine 06/14/2023 18:47 EDT PREPARE RED BLOOD CELLS Routine 06/14/2023 18:47 EDT DIFFERENTIAL, AUTOMATED MANUAL Today 06/14/2023 18:42 EDT COMPLETE BLOOD COUNT AND DIFFERENTIAL Routine 06/14/2023 18:42 EDT BASIC METABOLIC PANEL (BMP) Routine 06/14/2023 17:27 EDT POCT GLUCOSE, INTERFACED Routine 06/14/2023 17:25 EDT TRANSFUSE RED BLOOD CELLS Routine 06/14/2023 16:08 EDT PREPARE RED BLOOD CELLS Routine 06/14/2023 15:17 EDT VANCOMYCIN, RANDOM Timed 06/14/2023 14 :49 EDT DIFFERENTIAL, AUTOMATED MANUAL Today 06/14/2023 13:49 EDT COMPLETE BLOOD COUNT AND DIFFERENTIAL Routine 06/14/2023 13:49 EDT BASIC METABOLIC PANEL (BMP) Routine 06/14/2023 12:52 EDT POCT GLUCOSE, INTERFACED Routine 06/14/2023 12:50 EDT TRANSFUSE RED BLOOD CELLS Routine 06/14/2023 10:47 EDT PREPARE RED BLOOD CELLS Routine 06/14/2023 10:15 EDT SLIDE REQUEST STAT 06/14/2023 9:36 EDT COMPLETE BLOOD COUNT STAT 06/14/2023 9:36 EDT POCT BLOOD GAS, CG8 I-STAT Routine 06/14/2023 6:58 EDT PATIENT RE-TYPE Routine 06/14/2023 6:35 EDT TRANSFUSE RED BLOOD CELLS STAT 06/14/2023 6:24 EDT PREPARE RED BLOOD CELLS Routine 06/14/2023 6:14 EDT TYPE AND SCREEN STAT 06/14/2023 5:51 EDT POCT GLUCOSE, INTERFACED Routine 06/14/2023 5:41 EDT PREPARE RED BLOOD CELLS Routine 06/14/2023 5:20 EDT PREPARE RED BLOOD CELLS STAT 06/14/2023 5:20 EDT DIFFERENTIAL, AUTOMATED MANUAL Today 06/14/2023 4:55 EDT BASIC METABOLIC PANEL (BMP) Routine 06/14/2023 4:55 EDT COMPLETE BLOOD COUNT AND DIFFERENTIAL STAT 06/14/2023 4:55 EDT HEMOGLOBIN A1C Routine 06/14/2023 4:55 EDT MRSA PCR Routine 06/14/2023 1:23 EDT VANCOMYCIN, RANDOM Add-On 06/14/2023 1: 22 EDT BASIC METABOLIC PANEL (BMP) STAT 06/14/2023 1:22 EDT POCT GLUCOSE, INTERFACED Routine 06/14/2023 0:[address] OUTSIDE IMAGES PELVIS Routine 06/12/2023 16:49 EDT from Last 3 Months Results * HEPATITIS C AB W REFLEX TO HCV RNA BY PCR (08/30/2023 10:00 EDT) Hep C Antibody Negative Negative 09/02/2023 9:29 EDT [facility] Blood VENOUS BLOOD / Unknown 08/30/2023 10:00 EDT 08/30/2023 21:41 EDT Provider Outr Resulting Lab CHEMISTRY & BLOOD GAS ORDERABLES [facility] [address] [place] [address] * HIV 1/2 ANTIGEN AND ANTIBODY, 4TH GENERATION (08/30/2023 10:00 EDT) HIV 1 and 2 Antibody/p24 Antigen, 4th Generation Negative Negative 09/02/2023 9:27 EDT [facility] Comment:If acute HIV-1 infec tion is suspected in a high risk patient, submit plasma specimen for HIV-1 RNA quantitation test. Blood VENOUS BLOOD / Unknown 08/30/2023 10:00 EDT 08/30/2023 21:44 EDT Narrative [facility] - 09/02/2023 9:27 EDT Fourth Generation assay performed on the Siemens Centaur XPT. Provider Outr Resulting Lab IMMUNOLOGY A ND SEROLOGY ORDERABLES Performing Organization Address City/[facility]/ZIP Co de Phone Number [facility] [address] [place] [address] * ECG REPORT - SCANNED (08/27/2023 9:57 EDT) 08/27/2023 9:57 EDT Scan 2 Counseling Psychologist PROCEDURE/MINOR VI GICAL ORDERABLES * ECG REPORT - SCANNED (08/26/2023 11:11 EDT) 08/26/2023 11:1 1 EDT Scan 2 Counseling Psychologist PROCEDURE/MINOR VI GICAL ORDERABLES * (ABNORMAL) POCT GLUCOSE, INTERFACED (08/22/2023 7:34 EDT) Only the most recent of315 resultswithin the time period is included. Glucose, POC 148(H) 70 - 100 mg/dL 08/22/2023 7:35 EDT [facility] HN LAB POC COMMENT (GLUCOSE) Test Performed by Nursing Services 08/22/2023 7:35 EDT [facility] Blood CAPILLARY BLOOD / Unknown 08/22/2023 7:34 EDT 08/22/2023 7:35 EDT Aura Howell NP POINT OF CARE TEST O RDERABLES [facility] [address] [place] [id number] * (ABNORMAL) COMPLETE BLOOD COUNT AND DIFFERENTIAL (08/22/2023 5:43 EDT) Only the most recent of44 resultswithin the time period is included. WBC 9.52 4.00 - 12.40 K/cmm 08/22/2023 6:37 EDT [facility] RBC 3.19(L) 3.86 - 5.04 M/cmm 08/22/2023 6:37 EDT [facility] Hemoglobin 8.8(L) 11.6 - 15.2 g/dL 08/22/2023 6:37 [facility] HCT 26.2(L) 34.9 - 44.4 % 08/22/2023 6:37 [facility] MCV 82 81 - 98 fL 08/22/2023 6:37 [facility] MCH 27.6 26.7 - 33.3 pg 08/22/2023 6:37 [facility] MCHC 33.6 32.1 - 35.9 g/dL 08/22/2023 6:37 [facility] RDW-CV 14.0 <14.7 % 08/22/2023 6:37 [facility] RDW-SD 41.9 <50.4 fl 08/22/2023 6:37 [facility] PLT 317 141 - 377 K/cmm 08/22/2023 6:37 [facility] MPV 10.7 9.5 - 12.7 fL 08/22/2023 6:37 [facility] % Neutrophils 68.8 % 08/22/2023 6:37 [facility] % Lymphocytes 19.1 % 08/22/2023 6:37 [facility] % Monocytes 8.2 % 08/22/2023 6:37 [facility] % Eosinophils 2.3 % 08/22/2023 6:37 [facility] % Basophils 0.4 % 08/22/2023 6:37 [facility] % Immature Grans 1.2 % 08/22/19 6:37 [facility] Absolute Neutrophils 6.55 2.20 - 8.85 K/cmm 08/22/2023 6:37 [facility] Absolute Lymphocytes 1.82 1.09 - 3.30 K/cmm 08/22/2023 6:37 [facility] Absolute Monocytes 0.78 0.10 - 0.80 K/cmm 08/22/2023 6:37 [facility] Absolute Eosinophils 0.22 0.03 - 0.61 K/cmm 08/22/2023 6:37 EDT [facility] ABS Basophils 0.04 0.01 - 0.11 K/[facility] 08/22/2023 6:37 T [facility] Absolute Immature Grans 0.11(H) 0.00 - 0.06 /[facility] 08/22/2023 6:37 EDT [facility] Type of Differential: Auto 08/22/2023 6:37 T [facility] Blood VENOUS BLOOD / Unknown Venipuncture / Unknown 08/22/2023 5:43 EDT 08/22/2023 6:29 EDT Joan Menon MD PACKAGES & DNA PROBE ORDERABLES [facility] [address] [place] [address] * (ABNORMAL) BASIC METABOLIC PANEL (BMP) (08/22/2023 5:43 EDT) Only the most recent of55 resultswithin the time period is included. Sodium 134(L) 136 - 145 mmol/L 08/22/2023 7:02 [facility] Potassium 4.4 3.5 - 5.0 mmol/L 08/22/2023 7:02 [facility] Chloride 99 96 - 110 mmol/L 08/22/2023 7:02 [facility] CO2 Total 22 22 - 32 mmol/L 08/22/2023 7:02 [facility] Anion Gap 13 5 - 14 mmol/L 08/22/2023 7:02 [facility] Glucose 164(H) 70 - 99 mg/dl 08/22/2023 7:02 [facility] Calcium 9.9 8.5 - 10.5 mg/dL 08/22/2023 7:02 [facility] BUN 30(H) 10 - 26 mg/dL 08/22/2023 7:02 [facility] Creatinine 0.74 0.52 - 1.04 mg/dL 08/22/2023 7:02 EDT [facility] eGFR 97 >60 mL/min/1.73 m2 08/22/2023 7:02 EDT [facility] Blood VENOUS BLOOD / Unknown Venipuncture / Unknown 08/22/2023 5:43 EDT 08/22/2023 6:30 EDT Joan Menon MD CHEMISTRY & BLOOD GA S ORDERABLES [facility] [address] [place] [address] * ECG REPORT - SCANNED (08/08/2023 11:03 EDT) 08/08/2023 11:0 3 EDT Scan 2 Counseling Psychologist PROCEDURE/MINOR VI GICAL ORDERABLES * EKG 12-LEAD (2023 16:05 EDT) 2023 16:0 5 EDT Narrative [facility] - 08/08/2023 10:55 EDT ? [facility] ? Test Date: ?2023 Pat Name: ? JENNIFER JAMES ? Department: ?? [facility] ? Room: ? B694 Gender: ? Female ? 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 [id number] : ?1970 ? Requested By: LYNETTE MANDEL Order Number: [id number] ? Reading : ?? ENMANUEL APPIAH MD ? Measurements Intervals ?Slovan ? Rate: ? 85 ? P: ?48 IN: ? 167 ?QRS: ?32 QRSD: ? 83 ? T: ?71 QT: ? 363 ? QTc: ?433 ? Interpretive Statements SINUS RHYTHM POSSIBLE RIGHT VENTRICULAR CONDUCTION DELAY NONSPECIFIC T-WAVE ABNORMALITY BASELINE ARTIFACT LIMITS SENSITIVITY OF INTERPRETATION Compared to ECG 07/22/2023 16:16:49 Artifact now present I reviewed the tracing and have either agreed or edited the findings in this report. Electronically Signed On 08-08-2023 10:55:55 EDT by ENMANUEL APPIAH MD. Procedure Note Enmanuel Appiah MD - 08/08/2023 [facility] Test Date: 2023 Pat Name: JENNIFER JAMES Department: Derek Rivera Room: B694 Gender: Female Multi Needle Machine Operator: [id number] : 1970 Requested By: LYNETTE MANDEL Order Number: [id number] Reading MD: ENMANUEL APPIAH MD Measurements Intervals Slovan Rate: 85 P: 48 IN: 167 QRS: 32 QRSD: 83 T: 71 QT: 363 QTc: 433 Interpretive Statements SINUS RHYTHM POSSIBLE RIGHT VENTRICULAR CONDUCTION DELAY NONSPECIFIC T-WAVE ABNORMALITY BASELINE ARTIFACT LIMITS SENSITIVITY OF INTERPRETATION Compared to ECG 07/22/2023 16:16:49 Artifact now present I reviewed the tracing and have either agreed or edited the findings inthis report. Electronically Signed On 08-08-2023 10:55:55 EDT by LEONARD MCCLENDON. Logan Doyle DO CARDIAC ECG ORDERABL ES Performing Organization Address City/State/[facility] Co de Phone Number [facility] EKG * (ABNORMAL) VAGINAL CTGC AND VAGINITIS/VAGINOSIS MOLECULAR DETECTION (08/01/2023 16:31 EDT) Ana M glabrata Negative Negative 2023 13:31 EDT [facility] Trichomonas Vaginalis Negative Negative 2023 13:31 EDT [facility] BV (Bacterial vaginosis) Negative Negative 2023 13:31 EDT [facility] Neisseria gonorrhoeae Result Negative Negative 2023 13:31 EDT [facility] Chlamydia trachomatis Result Negative Negative 2023 13:31 EDT [facility] Ana M Species Positive(A) Negative 08/02/19 13:31 EDT [facility] Swab VAGINAL STRUCTURE / Unknown Swab / Unknown 08/01/2023 16:31 EDT 08/01/2023 16:38 EDT Citlalli Norwood PA-C MICROBIOLOGY - GE NERAL ORDERABLES [facility] [address] [place] [address] * ANESTHESIA PERIPHERAL IV PLACEMENT (07/31/2023 15:42 EDT) Narrative Krystin Tan CRNA - 07/31/2023 15:42 EDT Krystin Tan CRNA ? 07/31/2023 15:43 Peripheral IV Placement Date/Time: 07/31/2023 15:42 Inserted by: Krystin Tan CRNA Placement Needle size: 18 G Laterality: left Location: wrist Local anesthetic: none Site prep: alcohol Technique: anatomical landmarks Attempts: 1 Koby Lora MD ANESTHESIA ORDERA BLES * IN AN ELECTIVE ENDOTRACHEAL AIRWAY (07/31/2023 15:12 EDT) Narrative Krystin Tan CRNA - 07/31/2023 15:12 EDT Krystin Tan CRNA ? 07/31/2023 15:34 Airway Date/Time: 07/31/2023 15:12 Urgency: elective Airway not difficult General Information and Staff Patient location during procedure: OR Resident/JUDGE CLERK: Krystin Tan CRNA Performed: resident/JUDGE CLERK/AA Performed by: Krystin Tan CRNA Authorized by: Koby Lora MD ?? Indications and Patient Condition Indications for airway management: anesthesia Sedation level: GA Preoxygenated: yes Patient position: sniffing Ventilation assessment: 1 - Easy Final Airway Details Final airway type: endotracheal airway Successful airway: ETT Cuffed: yes Successful intubation technique: video laryngoscopy Nunn Facilitating devices/methods: intubating stylet Endotracheal tube insertion site: oral Blade: Abdi Blade size: #3 ETT size (mm): 7.0 Cormack-Lehane Classification: grade IIa - partial view of glottis Placement verified by: chest auscultation and capnometry Measured from: teeth Number of attempts at approach: 1 Ventilation between attempts: none Number of other approaches attempted: 0 Koby Lora MD ANESTHESIA ORDERA BLES * POC US VAT LINE PLACEMENT (07/29/2023 15:04 EDT) Narrative 07/29/2023 15:04 EDT This is a non-reportable exam. Violeta Bach MD IMG US POC ORDERABL ES * ECG REPORT - SCANNED (07/25/2023 13:55 EDT) 07/25/2023 13:5 5 EDT Scan 2 Counseling Psychologist PROCEDURE/MINOR VI GICAL ORDERABLES * (ABNORMAL) VITAMIN D (25,OH) (07/25/2023 8:58 EDT) 25OH Vitamin D Tot 22(L) 30 - 100 ng/mL 07/25/2023 11:37 EDT [facility] Comment: Vitamin D 25,OH Interpretive Ranges: Deficiency: ??<10.0 ng/mL Insufficiency: ??10.0 - 30.0 ng/mL Sufficiency: ??30.0 - 100.0 ng/mL Toxicity: ??>100.0 ng/mL Blood VENOUS BLOOD / Unknown Venipuncture / Unknown 07/25/2023 8:58 EDT 07/25/2023 9:36 EDT Darlin Aviles MD CHEMISTRY & BLOOD GA S ORDERABLES [facility] [address] [place] [address] * TROPONIN I (07/22/2023 16:21 EDT) Only the most recent of9 resultswithin the time period is included. Troponin I (ng/mL) <0.034 <0.034 ng/mL 07/22/2023 17:12 EDT [facility] Comment:Turbid sample identi fied, interpret with caution as turbidity may affect result. Blood VENOUS BLOOD / Unknown Venipuncture / Unknown 07/22/2023 16:21 EDT 07/22/2023 16:24 EDT Narrative [facility] - 07/22/2023 17:12 EDT The results of this assay can be falsely lowered due to the consumption of Biotin. Mahendra Veras MD CHEMISTRY & BLOOD G ORDERABLES [facility] [address] [place] [address] * EKG 12-LEAD (07/22/2023 16:16 EDT) 07/22/2023 16:1 6 EDT Narrative [facility] EKG - 07/25/2023 13:47 EDT ? [facility] ? Test Date: ?2023-07-22 Pat Name: ? JENNIFER JAMES ? Department: ?? Derek 6 ? Room: ? B694 Gender: ? Female ? 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 [id number] : ?1970 ? Requested By: UNIQUE RODRIGES Order Number: [id number] ? Alicia MCCLENDON: ?? TRACE BETTY MCCLENDON ? Measurements Intervals ?Slovan ? Rate: ? 86 ? P: ?46 IN: ? 180 ?QRS: ?34 QRSD: ? 77 ? T: ?91 QT: ? 366 ? QTc: ?439 ? Interpretive Statements SINUS RHYTHM Nonspecific T wave abnormality Compared to ECG 07/03/2023 03:57:59 Ectopic beats no longer present I reviewed the tracing and have either agreed or edited the findings in this report. Electronically Signed On 07-25-2023 13:47:41 EDT by KOURTNEY FATIMA MD. Procedure Note Kourtney Fatima MD - 07/25/2023 [facility] Test Date: 2023-07-22 Pat Name: JENNIFER JAMES Department: Derek Rivera Room: [facility] Gender: Female Multi Needle Machine Operator: [id number] : 1970 Requested By: UNIQUE RODRIGES Order Number: [id number] Reading MD: KOURTNEY FATIMA MD Measurements Intervals Slovan Rate: 86 P: 46 IN: 180 QRS: 34 QRSD: 77 T: 91 QT: 366 QTc: 439 Interpretive Statements SINUS RHYTHM Nonspecific T wave abnormality Compared to ECG 07/03/2023 03:57:59 Ectopic beats no longer present I reviewed the tracing and have either agreed or edited the findings inthis report. Electronically Signed On 07-25-2023 13:47:41 EDT by KOURTNEY AL. Mahendra Veras MD CARDIAC ECG ORDERAB LES Performing Organization Address City/[facility] Co de Phone Number [facility] EKG * (ABNORMAL) PHOSPHORUS (07/22/2023 6:51 EDT) Only the most recent of27 resultswithin the time period is included. Phosphorus 6.5(H) 2.5 - 4.5 mg/dL 07/22/2023 16:32 EDT [facility] Blood VENOUS BLOOD / Unknown Venipuncture / Unknown 07/22/2023 6:51 EDT 07/22/2023 7:06 EDT Mahendra Veras MD CHEMISTRY & BLOOD G ORDERABLES Performing Organization Address [facility] Phone Number [facility] [address] [place] [phone] * MAGNESIUM (07/22/2023 6:51 EDT) Only the most recent of25 resultswithin the time period is included. Magnesium 1.7 1.7 - 2.8 mg/dL 07/22/2023 16:32 EDT [facility] Blood VENOUS BLOOD / Unknown Venipuncture / Unknown 07/22/2023 6:51 EDT 07/22/2023 7:06 EDT Mahendra Veras MD CHEMISTRY & BLOOD G ORDERABLES Performing Organization Address [facility] Co de Phone Number [facility] [address] [place] [phone] * (ABNORMAL) DIFFERENTIAL, AUTOMATED MANUAL (07/11/2023 6:36 EDT) Only the most recent of21 resultswithin the time period is included. % Neutrophils 56.5 Not Indicated % 07/11/2023 8:03 [facility] % Lymphocytes 20.0 Not Indicated % 07/11/2023 8:03 [facility] % Monocytes 15.6 Not Indicated % 07/11/2023 8:03 [facility] % Eosinophils 0.9 Not Indicated % 07/11/2023 8:03 [facility] % Basophils 0.9 Not Indicated % 07/11/2023 8:03 [facility] % Metamyelocytes 5.2 Not Indicated % 07/11/2023 8:03 [facility] % Myelocytes 0.9 Not Indicated % 07/11/2023 8:03 [facility] Basophilic Stippling Present in <2% of RBCs 07/11/2023 8:03 [facility] Absolute Neutrophils 3.93 2.20 - 8.85 K/cmm 07/11/2023 8:03 [facility] Absolute Lymphocytes 1.39 1.09 - 3.30 K/cmm 07/11/2023 8:03 [facility] Absolute Monocytes 1.09(H) 0.10 - 0.80 K/cmm 07/11/2023 8:03 [facility] Absolute Eosinophils 0.06 0.03 - 0.61 K/cmm 07/11/2023 8:03 [facility] ABS Basophils 0.06 0.01 - 0.11 K/cmm 07/11/2023 8:03 [facility] Absolute Metamyelocytes 0.36(H) <=0.00 K/cmm 07/11/2023 8:03 [facility] Absolute Myelocytes 0.06(H) <=0.00 K/cmm 07/11/2023 8:03 [facility] Type of Differential: Manual 07/11/2023 8:03 EDT [facility] Blood VENOUS BLOOD / Unknown Venipuncture / Unknown 07/11/2023 6:36 EDT 07/11/2023 7:10 EDT Joan Menon MD HEMATOLOGY & PF4 ORD ERABLES Performing Organization Address [facility] Co de Phone Number [facility] [address] [place] [address] * OSMOLALITY (07/11/2023 6:36 EDT) Osmolality, Serum 276 275 - 295 mOsm/kg 07/11/2023 8:16 EDT [facility] Blood VENOUS BLOOD / Unknown Venipuncture / Unknown 07/11/2023 6:36 EDT 07/11/2023 7:11 EDT Citlalli Buenrostro MD CHEMISTRY & BLOOD GA S ORDERABLES Performing Organization Address [facility] Co de Phone Number [facility] [address] [place] [address] * UREA NITROGEN, URINE RANDOM (07/11/2023 4:58 EDT) Urea Nitrogen, Urine 576 See Note mg/dL 07/11/2023 5:34 EDT [facility] Comment: NOTE: Reference range has not been established for urea nitrogen concentration in random urine specimens. Urine URINE / Unknown Urine Collect / Unknown 07/11/2023 4:58 EDT 07/11/2023 5:09 EDT Citlalli Buenrostro MD URINALYSIS ORDERABLE S Performing Organization Address [facility] Co de Phone Number [facility] [address] [place] [address] * CREATININE, URINE RANDOM (07/11/2023 4:58 EDT) Creatinine, Urine 58.3 See Note mg/dL 07/11/2023 5:34 EDT [facility] Comment: NOTE: Reference range has not been established for creatinine concentration in random urine specimens. Urine URINE / Unknown Urine Collect / Unknown 07/11/2023 4:58 EDT 07/11/2023 5:09 EDT Citlalli Buenrostro MD URINALYSIS ORDERABLE S Performing Organization Address [facility] Co de Phone Number [facility] [address], [place] [address] * OSMOLALITY, URINE (07/11/2023 4:58 EDT) Osmolality, Urine 336 150 - 1,150 mOsm/kg 07/11/2023 5:36 EDT [facility] Urine URINE / Unknown Urine Collect / Unknown 07/11/2023 4:58 EDT 07/11/2023 5:09 EDT Citlalli Buenrostro MD URINALYSIS ORDERABLE S Performing Organization Address [facility] Co de Phone Number [facility] [address], [place] [id number] * IN AN ELECTIVE ENDOTRACHEAL AIRWAY (07/10/2023 10:51 EDT) Narrative Jeovanny Gómez MD - 07/10/2023 10:51 EDT Jeovanny Gómez MD ? 07/10/2023 11:19 Airway Date/Time: 07/10/2023 10:51 Urgency: elective General Information and Staff Patient location during procedure: OR Anesthesiologist: Gigi Rodriguez MD Resident/JUDGE CLERK: Jeovanny Gómez MD Performed: resident/JUDGE CLERK/AA Performed by: Jeovanny Gómez MD Authorized by: Gigi Rodriguez MD ?? Indications and Patient Condition Indications for airway management: anesthesia Sedation level: GA Preoxygenated: yes Patient position: sniffing Ventilation assessment: 1 - Easy Final Airway Details Final airway type: endotracheal airway Successful airway: ETT Cuffed: yes Successful intubation technique: direct laryngoscopy Facilitating devices/methods: intubating stylet Endotracheal tube insertion site: oral Blade: Abdi Blade size: #3 ETT size (mm): 7.0 Cormack-Lehane Classification: grade IIb - view of arytenoids or posterior of glottis only Placement verified by: chest auscultation and capnometry Measured from: teeth Number of attempts at approach: 1 Additional Comments Poor extension of neck. Poor visualization of posterior glottic structures. Tube passed anteriorly without difficulty Gigi Rodriguez MD ANESTHESIA ORDERABLE S * (ABNORMAL) SODIUM (07/08/2023 23:31 EDT) Only the most recent of33 resultswithin the time period is included. Sodium 125(L) 136 - 145 mmol/L 07/09/2023 0:30 EDT [facility] Blood VENOUS BLOOD / Unknown Venipuncture / Unknown 07/08/2023 23:31 EDT 07/09/2023 0:03 EDT Tai Azar MD CHEMISTRY & BLOOD G ORDERABLES [facility] [address] [place] [address] * ECG REPORT - SCANNED (07/05/2023 11:36 EDT) 07/05/2023 11:3 6 EDT Scan 2 Counseling Psychologist PROCEDURE/MINOR VI GICAL ORDERABLES * TYPE AND SCREEN (07/05/2023 9:17 EDT) Only the most recent of3 resultswithin the time period is included. ABO O 07/05/2023 10:31 EDT [facility] Rh Factor Positive 07/05/2023 10:31 EDT [facility] Antibody Screen Negative 07/05/2023 10:31 EDT [facility] Specimen Expires: 07/08/2023 @ 23:59 07/05/2023 10:31 EDT [facility] Blood VENOUS BLOOD / Unknown Venipuncture / Unknown 07/05/2023 9:17 EDT 07/05/2023 9:32 EDT Citlalli Buenrostro MD BLOOD BANK TESTS Performing Organization Address [facility]/ZIP Co de Phone Number [facility] [address] [facility] [place] [address] * PREPARE RED BLOOD CELLS (07/05/2023 8:17 EDT) Only the most recent of13 resultswithin the time period is included. Product Code N1340M91 [facility] Donor Number [id number] U [facility] Unit ABO O [facility] Unit Rh POS [facility] Unit Status TR^Transfuse [facility] BLOOD [facility] Product Expiration Date [id number] [facility] Unit Blood Type Code 5100 [facility] Volume 330 [facility] Coding System [id number] [facility] B[facility]OD [facility] Blood 07/05/2023 8:17 EDT Citlalli Buenrostro MD BLOOD BANK ORDERABLE S Performing Organization Address [facility] Co de Phone Number [facility] [address] [facility] [place] [address] * (ABNORMAL) COMPLETE BLOOD COUNT (07/05/2023 7:44 EDT) Only the most recent of5 resultswithin the time period is included. WBC 8.56 4.00 - 12.40 K/cmm 07/05/2023 8:05 EDT [facility] RBC 2.29(L) 3.86 - 5.04 M/cmm 07/05/2023 8:05 EDT [facility] Hemoglobin 6.7(LL) 11.6 - 15.2 g/dL 07/05/2023 8:05 EDT [facility] HCT 20.1(LL) 34.9 - 44.4 % 07/05/2023 8:05 EDT [facility] MCV 88 81 - 98 fL 07/05/2023 8:05 EDT [facility] MCH 29.3 26.7 - 33.3 pg 07/05/2023 8:05 EDT [facility] MCHC 33.3 32.1 - 35.9 g/dL 07/05/2023 8:05 EDT [facility] RDW-CV 14.8(H) <14.7 % 07/05/2023 8:05 EDT [facility] RDW-SD 48.2 <50.4 fl 07/05/2023 8:05 EDT [facility] PLT 538(H) 141 - 377 K/cmm 07/05/2023 8:05 EDT [facility] MPV 9.2(L) 9.5 - 12.7 fL 07/05/2023 8:05 EDT [facility] Blood VENOUS BLOOD / Unknown Venipuncture / Unknown 07/05/2023 7:44 EDT 07/05/2023 7:49 EDT Citlalli Buenrostro MD HEMATOLOGY & PF4 ORD ERABLES [facility] [address] [place] [address] * (ABNORMAL) ALBUMIN (07/05/2023 6:24 EDT) Albumin 2.5(L) 3.4 - 4.9 g/dL 07/05/2023 10:39 EDT [facility] Blood VENOUS BLOOD / Unknown Venipuncture / Unknown 07/05/2023 6:24 EDT 07/05/2023 6:50 EDT Darlin Aviles MD CHEMISTRY & BLOOD GA S ORDERABLES Performing Organization Address City/[facility]/ZIP Co de Phone Number [facility] [address] [place] [address] * ECG REPORT - SCANNED (07/04/2023 13:42 EDT) 07/04/2023 13:4 2 EDT Scan 2 Counseling Psychologist PROCEDURE/MINOR VI GICAL ORDERABLES * (ABNORMAL) BACTERIAL CULTURE/SMEAR, RESPIRATORY (07/04/2023 8:03 EDT) Organism ID Few mixed gram positive and gram negative organisms. No Staphylococcus aureus or Pseudomonas species isolated.(A) 07/06/2023 8:16 EDT [facility] Smear Few Neutrophils Present(A) 07/06/2023 8:16 EDT [facility] Smear No bacteria seen(A) 07/06/2023 8:16 EDT [facility] Sputum LEFT LUNG STRUCTURE / Unknown 07/04/2023 8:03 EDT 07/04/2023 8:41 EDT Tulio Garrison MD MICROBIOLOGY - GENER AL ORDERABLES [facility] [address] [place] [address] * XR CHEST PORTABLE 1 VIEW (07/04/2023 7:03 EDT) Anatomical Region Laterality Modality Computed Radiogr aphy 07/04/2023 9:31 EDT Impressions 07/04/2023 9:31 EDT 1. ??Improved expansion of the left upper lobe status post intubation and bronchoscopy as per the EMR. 2. ??Slight increase in right basilar opacity presumably atelectasis and/or layering pleural fluid, both of which were seen on the CT of the chest from 07/03/2023. I have personally reviewed the images and the above interpretation and agree with the findings. [id number] Narrative 07/04/2023 9:31 EDT XR CHEST PORTABLE 1 VIEW ??07/04/2023 6:40 AM Clinical History/comments: acute respiratory failure; Comparison: Chest x-ray 07/04/2023, CT chest 07/03/2023. Technique: Single portable AP view of the chest. Findings: Lines/tubes/devices: Endotracheal tube tip terminating in the mid trachea. Lungs/pleura: Interval decrease in left hemithorax opacification with concomitant expansion of lung. Interval increase in right lower lung opacity. Cardiac and mediastinal contours: Unremarkable although portions of the left heart are silhouetted by adjacent opacity. Soft tissues and extrathoracic findings: ??Normal. Bones: Known rib fractures better seen on comparison cross-sectional imaging. Resulting Agency Comment [id number] Procedure Note Luis Nagel MD - 07/04/2023 XR CHEST PORTABLE 1 VIEW 07/04/2023 6:40 AM Clinical History/comments: acute respiratory failure; Comparison: Chest x-ray 07/04/2023, CT chest 07/03/2023. Technique: Single portable AP view of the chest. Findings: Lines/tubes/devices: Endotracheal tube tip terminating in the midtrachea. Lungs/pleura: Interval decrease in left hemithorax opacification withconcomitant expansion of lung. Interval increase in right lower lungopacity. Cardiac and mediastinal contours: Unremarkable although portions of theleft heart are silhouetted by adjacent opacity. Soft tissues and extrathoracic findings: Normal. Bones: Known rib fractures better seen on comparison cross-sectionalimaging. IMPRESSION 1. Improved expansion of the left upper lobe status post intubation andbronchoscopy as per the EMR. 2. Slight increase in right basilar opacity presumably atelectasis and/orlayering pleural fluid, both of which were seen on the CT of the chestfrom 07/03/2023. I have personally reviewed the images and the above interpretation andagree with the findings. [id number] Tulio Garrison MD IMG DIAGNOSTIC IMAGI NG ORDERABLES * IN AN EMERGENT ENDOTRACHEAL AIRWAY, IN ANESTHESIA NON-TIMED PLACEHOLDER (07/04/2023 5:20 EDT) Narrative Tulio Garrison MD - 07/04/2023 5:20 EDT Tulio Garrison MD ? 07/04/2023 ??5:59 Airway Date/Time: 07/04/2023 5:20 Urgency: emergent Airway not difficult General Information and Staff Anesthesiologist: Rocky Jacobs MD Resident/JUDGE CLERK: Tulio Garrison MD Performed: resident/JUDGE CLERK/AA Performed by: Tulio Garrison MD Authorized by: Tulio Garrison MD ?? Consent for Airway (if performed for an anesthetic, see related documentation for consents) Patient identity confirmed: verbally with patient Consent: Verbal consent obtained. Consent given by: patient Indications and Patient Condition Preoxygenated: yes Final Airway Details Final airway type: endotracheal airway Successful airway: ETT Cuffed: yes Successful intubation technique: video laryngoscopy [place] Facilitating devices/methods: intubating stylet and cricoid pressure Endotracheal tube insertion site: oral Blade: [employer] CMAC D-Blade Blade size: #3 ETT size (mm): 8.0 Cormack-Lehane Classification: view obtained with video laryngoscopy Placement verified by: chest auscultation, capnometry and palpation of cuff Measured from: lips ETT to lips (cm): 21 Number of attempts at approach: 1 Tulio Garrison MD ANESTHESIA ORDERABLE S * XR CHEST PORTABLE 1 VIEW (07/04/2023 4:14 EDT) Anatomical Region Laterality Modality Computed Radiogr aphy 07/04/2023 9:11 EDT Impressions 07/04/2023 9:11 EDT Interval increased opacification of the left lung reflecting a combination of left lower lobe pneumonia, left upper lobe atelectasis and large pleural effusion. I have personally reviewed the images and the above interpretation and agree with the findings. [id number] Narrative 07/04/2023 9:11 EDT XR CHEST PORTABLE 1 VIEW ??07/04/2023 4:10 AM Clinical History/comments: hypoxemia, shortness of breath; Comparison: Multiple chest radiographs 07/01/2023 - 07/04/2023; CT chest 07/03/2023. Technique: Single portable AP view of the chest. Findings: Lines/tubes/devices: ??None Lungs/pleura: Interval increased opacification of the left lung with suspected increase in size of moderate to large left pleural effusion. Persistent findings suspicious for interstitial disease in the right lung unchanged as compared to multiple priors. No visible pneumothorax or right pleural effusion. Cardiac and mediastinal contours: The cardiomediastinal silhouette is indistinct. Soft tissues and extrathoracic findings: Unremarkable Bones: Unremarkable aside from degenerative changes Resulting Agency Comment [id number] Procedure Note Luis Nagel MD - 07/04/2023 XR CHEST PORTABLE 1 VIEW 07/04/2023 4:10 AM Clinical History/comments: hypoxemia, shortness of breath; Comparison: Multiple chest radiographs 07/01/2023 - 07/04/2023; CT chest07/03/2023. Technique: Single portable AP view of the chest. Findings: Lines/tubes/devices: None Lungs/pleura: Interval increased opacification of the left lung withsuspected increase in size of moderate to large left pleural effusion.Persistent findings suspicious for interstitial disease in the right lungunchanged as compared to multiple priors. No visible pneumothorax or rightpleural effusion. Cardiac and mediastinal contours: The cardiomediastinal silhouette isindistinct. Soft tissues and extrathoracic findings: Unremarkable Bones: Unremarkable aside from degenerative changes IMPRESSION Interval increased opacification of the left lung reflecting a combinationof left lower lobe pneumonia, left upper lobe atelectasis and largepleural effusion. I have personally reviewed the images and the above interpretation andagree with the findings. [id number] Tulio Garrison MD IMG DIAGNOSTIC IMAGI NG ORDERABLES * XR CHEST PORTABLE 1 VIEW (07/04/2023 2:25 EDT) Anatomical Region Laterality Modality Computed Radiogr aphy 07/04/2023 9:10 EDT Impressions 07/04/2023 9:10 EDT 1. ??Suspected persistent moderate to large left pleural effusion with slight interval increased opacification of the left lung likely at least in part representing atelectasis; patient with known left lower lobe pneumonia on recent CT of the chest. 2. ??Persistent but likely improving interstitial edema within the right lung. I have personally reviewed the images and the above interpretation and agree with the findings. [id number] Narrative 07/04/2023 9:10 EDT XR CHEST PORTABLE 1 VIEW ??07/04/2023 2:20 AM Clinical History/comments: Desatting, increasing o2 requirements; Comparison: CT chest 07/03/2023; chest radiograph 07/03/2023. Technique: Single portable AP view of the chest. Findings: Lines/tubes/devices: ??None Lungs/pleura: Interval increased opacification of the left upper lung and unchanged opacification of the left lower lung. Suspected persistent left moderate to large pleural effusion. Persistent findings suspicious for interstitial disease in the right lung unchanged as compared to priors. No visible pneumothorax or right pleural effusion. Cardiac and mediastinal contours: The left cardiac silhouette is indistinct secondary to adjacent opacities. Soft tissues and extrathoracic findings: Unremarkable Bones: Calcific tendinosis in the right shoulder. Resulting Agency Comment [id number] Procedure Note Luis Nagel MD - 07/04/2023 XR CHEST PORTABLE 1 VIEW 07/04/2023 2:20 AM Clinical History/comments: Desatting, increasing o2 requirements; Comparison: CT chest 07/03/2023; chest radiograph 07/03/2023. Technique: Single portable AP view of the chest. Findings: Lines/tubes/devices: None Lungs/pleura: Interval increased opacification of the left upper lung andunchanged opacification of the left lower lung. Suspected persistent leftmoderate to large pleural effusion. Persistent findings suspicious forinterstitial disease in the right lung unchanged as compared to priors. Novisible pneumothorax or right pleural effusion. Cardiac and mediastinal contours: The left cardiac silhouette isindistinct secondary to adjacent opacities. Soft tissues and extrathoracic findings: Unremarkable Bones: Calcific tendinosis in the right shoulder. IMPRESSION 1. Suspected persistent moderate to large left pleural effusion withslight interval increased opacification of the left lung likely at leastin part representing atelectasis; patient with known left lower lobepneumonia on recent CT of the chest. 2. Persistent but likely improving interstitial edema within the rightlung. I have personally reviewed the images and the above interpretation andagree with the findings. [id number] Tiara Keller MD IMG DIAGNOSTIC IM AGING ORDERABLES * CT CHEST W CONTRAST (07/03/2023 16:47 EDT) Anatomical Region Laterality Modality Chest Computed Tomogra phy 07/03/2023 16:5 9 EDT Impressions 07/03/2023 16:59 EDT Extensive mucous plugging within the left-sided airways with a left upper lobe that is atelectatic and enhancing, with the left lower lobe consolidated and showing generalized low attenuation that is concerning for pneumonia. Mucus in dependent portions of the trachea. Mild interstitial pulmonary edema and small right pleural effusion. Circumferential left pleural effusion which could be parapneumonic Multiple bilateral rib fractures and lower sternal fracture. Mild coronary artery atherosclerotic calcification. [id number] Narrative 07/03/2023 16:[address] CHEST W CONTRAST ??07/03/2023 4:38 PM Clinical History/Comments: known R pleural effusion asses for extent of fluid; Technique: CT scan of the chest with intravenous contrast material was performed. This CT used either dose modulation and/or iterative reconstruction techniques to lower radiation dose. Comparison: Chest CT June 18, 2023; chest radiograph July 03, 2023. Findings: Lower neck: Normal. Mediastinum and imelda (non-vascular): No enlarged mediastinal or hilar lymph nodes. ??The esophagus appears normal. Cardiovascular: There is mild coronary artery atherosclerotic calcification. There is mild atherosclerotic calcification of the aortic arch and arch vessels. Lungs and airways: There is significant mucus in the dependent portions of the trachea extending into the left main bronchus and both left upper and lower lobe bronchi where the central areas are almost completely occluded due to mucous. There are some patent segmental bronchi within portions of the left upper and lower lobes of lung. The left upper lobe is completely atelectatic and enhances normally. The left lower lobe is consolidated and shows generalized low attenuation. There is some dependent atelectasis within the right lower lobe posteriorly. There is some mild interlobular septal thickening within the right lung which would suggest the presence of interstitial edema. Pleura: There is a relatively small left pleural effusion that extends superiorly into the interlobar fissure and surrounds the atelectatic left upper lobe of lung. There is a trace right pleural effusion in the right posterior costophrenic sulcus. Upper abdomen (limited to upper abdomen, not optimized for abdominal imaging): Normal. Chest wall soft tissues: There is some edema in the left lower lateral chest wall. Bones: There are multiple bilateral healing rib fractures. There is a buckle type fracture of the lower body of the sternum. Resulting Agency Comment [id number] Procedure Note Redd Washington MD - 07/03/2023 CT CHEST W CONTRAST 07/03/2023 4:38 PM Clinical History/Comments: known R pleural effusion asses for extent of fluid; Technique: CT scan of the chest with intravenous contrast material was performed. This CT used either dose modulation and/or iterative reconstructiontechniques to lower radiation dose. Comparison: Chest CT June 18, 2023; chest radiograph July 03, 2023. Findings: Lower neck: Normal. Mediastinum and imelda (non-vascular): No enlarged mediastinal or hilarlymph nodes. The esophagus appears normal. Cardiovascular: There is mild coronary artery atheroscleroticcalcification. There is mild atherosclerotic calcification of the aorticarch and arch vessels. Lungs and airways: There is significant mucus in the dependent portions ofthe trachea extending into the left main bronchus and both left upper andlower lobe bronchi where the central areas are almost completely occludeddue to mucous. There are some patent segmental bronchi within portions ofthe left upper and lower lobes of lung. The left upper lobe is completelyatelectatic and enhances normally. The left lower lobe is consolidated andshows generalized low attenuation. There is some dependent atelectasiswithin the right lower lobe posteriorly. There is some mild interlobular septal thickening within the right lungwhich would suggest the presence of interstitial edema. Pleura: There is a relatively small left pleural effusion that extendssuperiorly into the interlobar fissure and surrounds the atelectatic leftupper lobe of lung. There is a trace right pleural effusion in the rightposterior costophrenic sulcus. Upper abdomen (limited to upper abdomen, not optimized for abdominalimaging): Normal. Chest wall soft tissues: There is some edema in the left lower lateralchest wall. Bones: There are multiple bilateral healing rib fractures. There is abuckle type fracture of the lower body of the sternum. IMPRESSION Extensive mucous plugging within the left-sided airways with a left upperlobe that is atelectatic and enhancing, with the left lower lobeconsolidated and showing generalized low attenuation that is concerningfor pneumonia. Mucus in dependent portions of the trachea. Mild interstitial pulmonary edema and small right pleural effusion.Circumferential left pleural effusion which could be parapneumonic Multiple bilateral rib fractures and lower sternal fracture. Mild coronary artery atherosclerotic calcification. [id number] ORDERABLES * XR CHEST PORTABLE 1 VIEW (07/03/2023 8:44 EDT) Anatomical Region Laterality Modality Computed Radiogr aphy 07/03/2023 10:0 0 EDT Impressions 07/03/2023 10:00 EDT Increased left-sided pleural effusion. Progressive atelectasis of the left lung. No change in diffuse interstitial abnormalities in the right lung likely reflecting edema. I have personally reviewed the images and the above interpretation and agree with the findings. [id number] Narrative 07/03/2023 10:00 EDT XR CHEST PORTABLE 1 VIEW ??07/03/2023 8:37 AM Clinical History/comments: Sob; Comparison: Chest x-ray 07/01/2023, 06/30/2023, 06/26/2023, CT chest/04/2023. Technique: Single portable AP view of the chest. Findings: Lines/tubes/devices: ??None Lungs: There is progressive opacification of the left hemithorax with a probable enlarging left pleural effusion and progressive atelectasis of the lingula. The right lung shows diffuse increase in density likely reflecting interstitial disease unchanged from the prior examination. Pleura: Medium to large sized left pleural effusion. Cardiac and mediastinal contours: Unremarkable although portions are silhouetted by adjacent opacity. Soft tissues and extrathoracic findings: ??Normal. Bones: Right shoulder calcific tendinosis. Resulting Agency Comment [id number] Procedure Note Redd Washington MD - 07/03/2023 XR CHEST PORTABLE 1 VIEW 07/03/2023 8:37 AM Clinical History/comments: Sob; Comparison: Chest x-ray 07/01/2023, 06/30/2023, 06/26/2023, CT chest/. Technique: Single portable AP view of the chest. Findings: Lines/tubes/devices: None Lungs: There is progressive opacification of the left hemithorax with aprobable enlarging left pleural effusion and progressive atelectasis ofthe lingula. The right lung shows diffuse increase in density likelyreflecting interstitial disease unchanged from the prior examination. Pleura: Medium to large sized left pleural effusion. Cardiac and mediastinal contours: Unremarkable although portions aresilhouetted by adjacent opacity. Soft tissues and extrathoracic findings: Normal. Bones: Right shoulder calcific tendinosis. IMPRESSION Increased left-sided pleural effusion. Progressive atelectasis of the leftlung. No change in diffuse interstitial abnormalities in the right lunglikely reflecting edema. I have personally reviewed the images and the above interpretation andagree with the findings. [id number] Citlalli Porter MCCLENDON IMG DIAGNOSTIC IMAGI NG ORDERABLES * HN LAB CBC SMEAR REVIEW (07/03/2023 6:29 EDT) Differential Comment Slide was examined by a technologist to verify the WBC and/or platelet count. 07/03/2023 7:39 EDT [facility] Blood VENOUS BLOOD / Unknown Venipuncture / Unknown 07/03/2023 6:29 EDT 07/03/2023 6:40 EDT Tonia Hardy HEMATOLOGY & PF4 ORD ERABLES [facility] [address] [place] [address] * EKG 12-LEAD (07/03/2023 3:57 EDT) 07/03/2023 3:57 EDT Narrative [facility] EKG - 07/04/2023 13:31 EDT ? [facility] ? Test Date: ?2023-07-03 Pat Name: ? JENNIFER JAMES ? Department: ?? Derek Rivera ? Room: ? B683 Gender: ? Female ? 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 [id number] : ?1970 ? Requested By: UNIQUE RODRIGES Order Number: [id number] ? Alicia MD: ?? LAST STAHL MD ? Measurements Intervals ?[place]ovan ? Rate: ? 89 ? P: ?35 IN: ? 157 ?QRS: ?54 QRSD: ? 83 ? T: ?101 QT: ? 374 ? QTc: ?456 ? Interpretive Statements SINUS RHYTHM WITH OCCASIONAL ECTOPIC PREMATURE COMPLEXES POSSIBLE LEFT ATRIAL ENLARGEMENT Automated Interpretation. ??Provider Interpretation to follow. Compared to ECG 06/28/2023 02:12:29 No significant changes I reviewed the tracing and have either agreed or edited the findings in this report. Electronically Signed On 07-04-2023 13:31:10 EDT by LAST STAHL MD. Procedure Note Last Stahl MD PhD - 07/04/2023 [facility] Test Date: 2023-07-03 Pat Name: JENNIFER JAMES Department: [place] [address] Room: [facility] Gender: Female Multi Needle Machine Operator: [id number] : 1970 Requested By: UNIQUE RODRIGES Order Number: [id number] Reading MD: LAST IGLESIAS Measurements Intervals Slovan Rate: 89 P: 35 IN: 157 QRS: 54 QRSD: 83 T: 101 QT: 374 QTc: 456 Interpretive Statements SINUS RHYTHM WITH OCCASIONAL ECTOPIC PREMATURE COMPLEXES POSSIBLE LEFT ATRIAL ENLARGEMENT Automated Interpretation. Provider Interpretation to follow. Compared to ECG 06/28/2023 02:12:29 No significant changes I reviewed the tracing and have either agreed or edited the findings inthis report. Electronically Signed On 07-04-2023 13:31:10 EDT by NELSON MCCLENDON. Mahendra Veras MD CARDIAC ECG ORDERAB LES [facility] EKG * ECG REPORT - SCANNED (07/02/2023 10:05 EDT) 07/02/2023 10:0 5 EDT Scan 2 Counseling Psychologist PROCEDURE/MINOR VI GICAL ORDERABLES * ECG REPORT - SCANNED (07/01/2023 13:46 EDT) 07/01/2023 13:4 6 EDT Scan 2 Counseling Psychologist PROCEDURE/MINOR VI GICAL ORDERABLES * XR CHEST 2 VIEWS (07/01/2023 10:22 EDT) Anatomical Region Laterality Modality Computed Radiogr aphy 07/01/2023 11:3 1 EDT Impressions 07/01/2023 11:31 EDT Nonspecific, faint opacities throughout both lungs which could represent pulmonary edema. Nonspecific retrocardiac opacity that likely represents atelectasis and/or infectious pneumonia. Clinical correlation is required. Small left pleural effusion. I have personally reviewed the images and the above interpretation and agree with the findings. [id number] Narrative 07/01/2023 11:31 EDT XR CHEST 2 VIEWS ??07/01/2023 10:17 AM Clinical History/comments: effusion, pna; Comparison: Chest x-ray 06/30/2023, 06/26/2023, CT chest/20 04/2023. Technique: Frontal and lateral views of the chest. Findings: Lungs: Hazy opacity throughout both lungs with questionable underlying very mild interstitial thickening, as well as retrocardiac opacity obscuring the left hemidiaphragm. Very mild linear atelectasis in the left midlung. Pleura/diaphragms: Grossly unchanged left-sided pleural effusion. Cardiac and mediastinal contours: Normal. Soft tissues and extrathoracic findings: ??Normal. Bones: Normal. Resulting Agency Comment [id number] Procedure Note Tabatha Menendez MD - 07/01/2023 XR CHEST 2 VIEWS 07/01/2023 10:17 AM Clinical History/comments: effusion, pna; Comparison: Chest x-ray 06/30/2023, 06/26/2023, CT chest/20 04/2023. Technique: Frontal and lateral views of the chest. Findings: Lungs: Hazy opacity throughout both lungs with questionable underlyingvery mild interstitial thickening, as well as retrocardiac opacityobscuring the left hemidiaphragm. Very mild linear atelectasis in the leftmidlung. Pleura/diaphragms: Grossly unchanged left-sided pleural effusion. Cardiac and mediastinal contours: Normal. Soft tissues and extrathoracic findings: Normal. Bones: Normal. IMPRESSION Nonspecific, faint opacities throughout both lungs which could representpulmonary edema. Nonspecific retrocardiac opacity that likely represents atelectasis and/orinfectious pneumonia. Clinical correlation is required. Small left pleural effusion. I have personally reviewed the images and the above interpretation andagree with the findings. [id number] Tai Azar MD IMG DIAGNOSTIC IMAG ING ORDERABLES * ECG REPORT - SCANNED (07/01/2023 6:53 EDT) 07/01/2023 6:53 EDT Scan 2 Counseling Psychologist PROCEDURE/MINOR VI GICAL ORDERABLES * XR CHEST PORTABLE 1 VIEW (06/30/2023 13:33 EDT) Anatomical Region Laterality Modality Computed Radiogr aphy 06/30/2023 13:4 1 EDT Impressions 06/30/2023 13:41 EDT Left lower lobe opacification with left pleural effusion. The findings could reflect either effusion with passive atelectasis or left lower lobe pneumonia. [id number] Narrative 06/30/2023 13:41 EDT XR CHEST PORTABLE 1 VIEW ??06/30/2023 1:00 PM Clinical History/comments: increased rhonchi; Comparison: Chest radiographs June 24June 26, 2023.. Technique: Single portable AP view of the chest. Findings: Lines/tubes/devices: The NG tube seen on the prior examination has been removed. Lungs: The lungs show dense opacification of the left lower lobe of lung as seen previously. Pleura: There is a left pleural effusion present. Cardiac and mediastinal contours: Normal. Soft tissues and extrathoracic findings: ??Normal. Bones: Normal. Resulting Agency Comment [id number] Procedure Note Redd Washington MD - 06/30/2023 XR CHEST PORTABLE 1 VIEW 06/30/2023 1:00 PM Clinical History/comments: increased rhonchi; Comparison: Chest radiographs June 24June 26, 2023.. Technique: Single portable AP view of the chest. Findings: Lines/tubes/devices: The NG tube seen on the prior examination has beenremoved. Lungs: The lungs show dense opacification of the left lower lobe of lungas seen previously. Pleura: There is a left pleural effusion present. Cardiac and mediastinal contours: Normal. Soft tissues and extrathoracic findings: Normal. Bones: Normal. IMPRESSION Left lower lobe opacification with left pleural effusion. The findingscould reflect either effusion with passive atelectasis or left lower lobepneumonia. [id number] Violeta Bach MD IMG DIAGNOSTIC IMAG ING ORDERABLES * EKG 12-LEAD (06/28/2023 2:12 EDT) 06/28/2023 2:12 EDT Narrative [facility] EKG - 07/01/2023 13:38 EDT ? [facility] ? Test Date: ?2023-06-28 Pat Name: ? JENNIFER JAMES ? Department: ?? [facility] ? Room: ? B620 Gender: ? Female ? 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 [id number] : ?1970 ? Requested By: MARAH WHYTE Order Number: [id number] ? Alicia MCCLENDON: ?? CHIDI BRASHER MD ? Measurements Intervals ?Slovan ? Rate: ? 76 ? P: ?34 IN: ? 156 ?QRS: ?40 QRSD: ? 85 ? T: ?90 QT: ? 392 ? QTc: ?442 ? Interpretive Statements SINUS RHYTHM POSSIBLE RIGHT VENTRICULAR CONDUCTION DELAY I reviewed the tracing and have either agreed or edited the findings in this report. Electronically Signed On 07-01-2023 13:38:31 EDT by CHIDI BRASHER MD. Procedure Note Chidi Brasher MD - 07/01/2023 [facility] Test Date: 2023-06-28 Pat Name: JENNIFER JAMES Department: [place] [address] Room: [facility] Gender: Female Multi Needle Machine Operator: [id number] : 1970 Requested By: MARAH WHYTE Order Number: [id number] Reading MD: CHIDI BRASHER MD Measurements Intervals Slovan Rate: 76 P: 34 IN: 156 QRS: 40 QRSD: 85 T: 90 QT: 392 QTc: 442 Interpretive Statements SINUS RHYTHM POSSIBLE RIGHT VENTRICULAR CONDUCTION DELAY I reviewed the tracing and have either agreed or edited the findings inthis report. Electronically Signed On 07-01-2023 13:38:31 EDT by CHIDI JURADO MD. Nata Nolasco MD CARDIAC ECG ORDERABL ES [facility] EKG * ECG REPORT - SCANNED (06/27/2023 16:14 EDT) 06/27/2023 16:1 4 EDT Scan 2 Counseling Psychologist PROCEDURE/MINOR VI GICAL ORDERABLES * IN AN ELECTIVE ENDOTRACHEAL AIRWAY (06/26/2023 21:30 EDT) Narrative Mahendra Manning - 06/26/2023 21:30 EDT Mahendra Manning ? 06/26/2023 21:44 Airway Date/Time: 06/26/2023 21:30 Urgency: elective Airway not difficult General Information and Staff Patient location during procedure: OR Anesthesiologist: Luisa Humphries DO Resident/JUDGE CLERK: Mahendra Manning Performed: resident/JUDGE CLERK/AA Performed by: Mahendra Manning Authorized by: Luisa Humphries DO ?? Indications and Patient Condition Indications for airway management: anesthesia Sedation level: GA Preoxygenated: yes Patient position: sniffing Ventilation assessment: 2 - Oral airway inserted (2 providers 2/2 pt intubated on hospital bed) Final Airway Details Final airway type: endotracheal airway Successful airway: ETT Cuffed: yes Successful intubation technique: video laryngoscopy Nunn Facilitating devices/methods: intubating stylet Endotracheal tube insertion site: oral Blade: Abdi Blade size: #3 ETT size (mm): 7.0 Cormack-Lehane Classification: grade I - full view of glottis Placement verified by: capnometry and palpation of cuff Measured from: lips ETT to lips (cm): 19 Number of attempts at approach: 1 Luisa Humphries DO ANESTHESIA ORDERABL ES * MRSA PCR (06/26/2023 8:08 EDT) Only the most recent of2 resultswithin the time period is included. MRSA/Staph aureus Result No Staphylococcus aureus detected by PCR 06/26/2023 13:54 EDT [facility] Swab BOTH ANTERIOR NARES / Unknown Swab / Unknown 06/26/2023 8:08 EDT 06/26/2023 8:37 EDT Hira Franklin MD MICROBIOLOGY - GENER AL ORDERABLES [facility] [address] [place] [address] * XR CHEST PORTABLE 1 VIEW (06/26/2023 6:46 EDT) Anatomical Region Laterality Modality Computed Radiogr aphy 06/26/2023 8:28 EDT Impressions 06/26/2023 8:28 EDT 1. ??Persistent findings of pulmonary edema with progressive left basilar opacity felt to reflect enlarging pleural fluid and adjacent lower lobe consolidation. 2. ??Increasing hazy opacity in the right lung base may reflect additional layering pleural fluid. I have personally reviewed the images and the above interpretation and agree with the findings. [id number] Narrative 06/26/2023 8:28 EDT XR CHEST PORTABLE 1 VIEW ??06/26/2023 6:15 AM Clinical History/comments: need for BiPAP , eval for interval change; Comparison: Portable chest radiograph 06/25/2023. Technique: Single portable AP view of the chest. 40 degrees upright. Findings: Lines/tubes/devices: Transesophageal tube terminates beyond the GE junction. Lungs: The pulmonary vasculature and perihilar regions remain indistinct. There is progressive hazy opacities in the right lung base and no dense opacities within the left lower lung obscuring the diaphragm. Pleura: Left-sided pleural effusion. No visible pneumothorax. Cardiac and mediastinal contours: Unchanged with curvilinear aortic plaque. Soft tissues and extrathoracic findings: No significant finding. Bones: Calcific tendinosis of the right shoulder. Resulting Agency Comment [id number] Procedure Note Luis Nagel MD - 06/26/2023 XR CHEST PORTABLE 1 VIEW 06/26/2023 6:15 AM Clinical History/comments: need for BiPAP , eval for interval change; Comparison: Portable chest radiograph 06/25/2023. Technique: Single portable AP view of the chest. 40 degrees upright. Findings: Lines/tubes/devices: Transesophageal tube terminates beyond the GEjunction. Lungs: The pulmonary vasculature and perihilar regions remain indistinct.There is progressive hazy opacities in the right lung base and no denseopacities within the left lower lung obscuring the diaphragm. Pleura: Left-sided pleural effusion. No visible pneumothorax. Cardiac and mediastinal contours: Unchanged with curvilinear aorticplaque. Soft tissues and extrathoracic findings: No significant finding. Bones: Calcific tendinosis of the right shoulder. IMPRESSION 1. Persistent findings of pulmonary edema with progressive left basilaropacity felt to reflect enlarging pleural fluid and adjacent lower lobeconsolidation. 2. Increasing hazy opacity in the right lung base may reflect additionallayering pleural fluid. I have personally reviewed the images and the above interpretation andagree with the findings. [id number] Tonia Hardy [facility] DIAGNOSTIC IMAGI NG ORDERABLES * POCT BLOOD GAS, EG6 I-STAT (06/26/2023 0:37 EDT) Only the most recent of12 resultswithin the time period is included. pH, Arterial, i-STAT 7.43 7.35 - 7.45 06/26/2023 0:43 [facility] PCO2, Arterial, i-STAT 38 35 - 45 mmHg 06/26/2023 0:43 [facility] pO2, Arterial, i-STAT 89 80 - 105 mmHg 06/26/2023 0:43 [facility] TCO2, Arterial, i-STAT 26 22 - 26 mmol/L 06/26/2023 0:43 [facility] O2 Saturation, Arterial, i-STAT 97 95 - 98 % 06/26/2023 0:43 [facility] Base Excess(+) / Deficit(-), Arterial, i-STAT 1 -2 - 3 mmol/L 06/26/2023 0:43 [facility] Blood ARTERIAL BLOOD / Unknown 06/26/2023 0:37 EDT 06/26/2023 0:43 EDT [facility] - 06/26/2023 0:43 EDT Test Performed by Respiratory For arterial collection, the Laboratory recommends that the Modified Ashutosh test be performed to determine that collateral circulation is present from the ulnar artery in the event that thrombosis of the radial artery should occur. Performance of the Modified Ashutosh test should be documented in the patients' chart Loni Valentine MD PhD POINT OF CARE TEST ORDERABLES [facility] [address] [place] [address] * EKG 12-LEAD (06/25/2023 23:32 EDT) 06/25/2023 23:3 2 EDT Narrative [facility] EKG - 06/28/2023 17:45 EDT ? [facility] ? Test Date: ?2023-06-25 Pat Name: ? JENNIFER JAMES ? Department: ?? [facility] [address] ? Room: ? B690 Gender: ? Female ? 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 Requested By: BARBY MONTANEZ Order Number: [id number] ? Alicia MCCLENDON: ?? LAST STAHL MD ? Measurements Intervals ?Slovan ? Rate: ? 117 ?P: ?0 IN: ? 0 ?QRS: ?72 QRSD: ? 89 ? T: ?73 QT: ? 301 ? QTc: ?420 ? Interpretive Statements SUPRAVENTRICULAR TACHYCARDIA POSSIBLE RIGHT VENTRICULAR CONDUCTION DELAY ABNORMAL RHYTHM ECG Automated Interpretation. ??Provider Interpretation to follow. Compared to ECG 06/24/2023 05:20:46 Sinus rhythm no longer present Myocardial infarct finding no longer present I reviewed the tracing and have either agreed or edited the findings in this report. Electronically Signed On 06-28-2023 17:45:05 EDT by LAST STAHL MD. Procedure Note Last Stahl MD PhD - 06/28/2023 [facility] Test Date: 2023-06-25 Pat Name: JENNIFER JAMES Department: [place] [address] Room: 90 Gender: Female Multi Needle Machine Operator: : 1970 Requested By: BARBY MONTANEZ Order Number: [id number] Reading MD: LAST IGLESIAS Measurements Intervals Slovan Rate: 117 P: 0 IN: 0 QRS: 72 QRSD: 89 T: 73 QT: 301 QTc: 420 Interpretive Statements SUPRAVENTRICULAR TACHYCARDIA POSSIBLE RIGHT VENTRICULAR CONDUCTION DELAY ABNORMAL RHYTHM ECG Automated Interpretation. Provider Interpretation to follow. Compared to ECG 06/24/2023 05:20:46 Sinus rhythm no longer present Myocardial infarct finding no longer present I reviewed the tracing and have either agreed or edited the findings inthis report. Electronically Signed On 06-28-2023 17:45:05 EDT by NELSON MCCLENDON. Chrissie Rea MD CARDIAC ECG ORDERABL ES [facility] EKG * XR CHEST PORTABLE 1 VIEW (06/25/2023 22:40 EDT) Anatomical Region Laterality Modality Computed Radiogr aphy 06/26/2023 8:42 EDT Impressions 06/26/2023 8:42 EDT 1. ??Hydrostatic edema and likely bilateral effusions, definitive on the left. 2. ??Left lower lobe consolidation, presumably atelectasis. [id number] Narrative 06/26/2023 8:42 EDT XR CHEST PORTABLE 1 VIEW ??06/25/2023 10:30 PM Clinical History/comments: hypoxia; Comparison: 06/20/2023. Technique: Single portable AP view of the chest. Findings: Lines/tubes/devices: There is a feeding tube which descends within the abdomen. Lungs: The pulmonary vasculature is indistinct and there are Steffen B lines throughout the lungs. Dense consolidation within the left retrocardiac region. Pleura: Left-sided pleural effusion. Additional small lamellar effusion may be present on the right. Cardiac and mediastinal contours: Normal. Soft tissues and extrathoracic findings: ??Normal. Bones: Normal. Resulting Agency Comment [id number] Procedure Note Luis Nagel MD - 06/26/2023 XR CHEST PORTABLE 1 VIEW 06/25/2023 10:30 PM Clinical History/comments: hypoxia; Comparison: 06/20/2023. Technique: Single portable AP view of the chest. Findings: Lines/tubes/devices: There is a feeding tube which descends within theabdomen. Lungs: The pulmonary vasculature is indistinct and there are Steffen Blines throughout the lungs. Dense consolidation within the leftretrocardiac region. Pleura: Left-sided pleural effusion. Additional small lamellar effusionmay be present on the right. Cardiac and mediastinal contours: Normal. Soft tissues and extrathoracic findings: Normal. Bones: Normal. IMPRESSION 1. Hydrostatic edema and likely bilateral effusions, definitive on theleft. 2. Left lower lobe consolidation, presumably atelectasis. [id number] Chrissie Rea MD IMG DIAGNOSTIC IMAGI NG ORDERABLES * SLIDE REQUEST (06/25/2023 22:38 EDT) Only the most recent of3 resultswithin the time period is included. Note A smear is filed in the Hematology lab. 06/26/2023 0:03 EDT [facility] Blood VENOUS BLOOD / Unknown Venipuncture / Unknown 06/25/2023 22:38 EDT 06/25/2023 22:42 EDT Chrissie Rea MD HEMATOLOGY & PF4 ORD ERABLES [facility] [address] [place] [address] * EKG 12-LEAD (06/24/2023 5:20 EDT) 06/24/2023 5:20 EDT Narrative [facility] EKG - 07/02/2023 9:54 EDT ? [facility] ? Test Date: ?2023-06-24 Pat Name: ? JENNIFER JAMES ? Department: ?? [facility] 6 ? Room: ? B690 Gender: ? Female ? 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 [id number] : ?1970 ? Requested By: MARAH WHYTE Order Number: [id number] ? Reading MD: ?? LILLIAM FAN MD ? Measurements Intervals ?Slovan ? Rate: ? 94 ? P: ?38 IN: ? 161 ?QRS: ?51 QRSD: ? 84 ? T: ?78 QT: ? 347 ? QTc: ?436 ? Interpretive Statements SINUS RHYTHM POOR R WAVE PROGRESSION ABNORMAL EKG I reviewed the tracing and have either agreed or edited the findings in this report. Electronically Signed On 07-02-2023 09:54:12 EDT by LILLIAM FAN MD. Procedure Note Lilliam Fan MD - 07/02/2023 [facility] Test Date: 2023-06-24 Pat Name: JENNIFER JAMES Department: Reed Room: [facility] Gender: Female Multi Needle Machine Operator: [id number] : 1970 Requested By: MARAH WHYTE Order Number: [id number] Reading MD: LILLIAM FAN MD Measurements Intervals Slovan Rate: 94 P: 38 IN: 161 QRS: 51 QRSD: 84 T: 78 QT: 347 QTc: 436 Interpretive Statements SINUS RHYTHM POOR R WAVE PROGRESSION ABNORMAL EKG I reviewed the tracing and have either agreed or edited the findings inthis report. Electronically Signed On 07-02-2023 09:54:12 EDT by GAYATRI MCCLENDON. Nata Nolasco MD CARDIAC ECG ORDERABL ES [facility] EKG * ECG REPORT - SCANNED (06/24/2023 3:47 EDT) 06/24/2023 3:47 EDT Scan 2 Counseling Psychologist PROCEDURE/MINOR VI GICAL ORDERABLES * ECG REPORT - SCANNED (06/24/2023 3:47 EDT) 06/24/2023 3:47 EDT Scan 2 Counseling Psychologist PROCEDURE/MINOR VI GICAL ORDERABLES * EKG 12-LEAD (06/22/2023 7:49 EDT) 06/22/2023 7:49 EDT Narrative [facility] EKG - 07/05/2023 11:23 EDT ? [facility] ? Test Date: ?2023-06-22 Pat Name: ? JENNIFER JAMES ? Department: ?? [facility] 3 ? Room: ? M316 Gender: ? Female ? 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 [id number] : ?1970 ? Requested By: LORENANASILVIA TAI Order Number: [id number] ? Reading MD: ?? TRUNG OMKAR MD ? Measurements Intervals ?Slovan ? Rate: ? 91 ? P: ?46 IN: ? 161 ?QRS: ?58 QRSD: ? 84 ? T: ?92 QT: ? 364 ? QTc: ?448 ? Interpretive Statements SINUS RHYTHM POSSIBLE RIGHT VENTRICULAR CONDUCTION DELAY SEPTAL MYOCARDIAL INFARCTION , OF INDETERMINATE AGE Compared to ECG 06/19/2023 09:07:08 Sinus tachycardia no longer present Myocardial infarct finding still present I reviewed the tracing and have either agreed or edited the findings in this report. Electronically Signed On 07-05-2023 11:23:17 EDT by TRUNG CEDILLO MD. Procedure Note Trung Cedillo MD - 07/05/2023 [facility] Test Date: 2023-06-22 Pat Name: JENNIFER JAMES Department: [place] [address] [place] [facility] [place]: [place] Multi Needle Machine Operator: [id number] : 1970 Requested By: LUCIUS LUJAN Order Number: [id number] Reading MD: TRUNG CEDILLO MD Measurements Intervals Slovan Rate: 91 P: 46 IN: 161 QRS: 58 QRSD: 84 T: 92 QT: 364 QTc: 448 Interpretive Statements SINUS RHYTHM POSSIBLE RIGHT VENTRICULAR CONDUCTION DELAY SEPTAL MYOCARDIAL INFARCTION , OF INDETERMINATE AGE Compared to ECG 06/19/2023 09:07:08 Sinus tachycardia no longer present Myocardial infarct finding still present I reviewed the tracing and have either agreed or edited the findings inthis report. Electronically Signed On 07-05-2023 11:23:17 EDT by TRUNG DIMAS. Tai Azar MD CARDIAC ECG ORDERAB LES [facility] EKG * XR CHEST PORTABLE 1 VIEW (06/20/2023 15:03 EDT) Anatomical Region Laterality Modality Computed Radiogr aphy 06/20/2023 15:0 9 EDT Impressions 06/20/2023 15:09 EDT Findings of improving left lower lobe atelectasis and persistent interstitial pulmonary edema. [id number] Narrative 06/20/2023 15:09 EDT XR CHEST PORTABLE 1 VIEW ??06/20/2023 2:04 PM Clinical History/comments: persistent SOB on HFNC; Comparison: Chest radiograph 06/18/2023.. Technique: Single portable AP view of the chest. Findings: Lines/tubes/devices: NG tube is seen coursing into the second duodenum its tip not visualized. There is a right internal jugular temporary pacemaker wire its tip projecting just within the right ventricle. Lungs: There has been partial reexpansion of the atelectatic left lower lobe. There is some indistinctness of the pulmonary vasculature and diffuse increase in lung density likely reflects edema. Pleura: No visible pleural abnormalities. Cardiac and mediastinal contours: There is atherosclerotic calcification of the aortic arch. Soft tissues and extrathoracic findings: ??Normal. Bones: Normal. Procedure Note Redd Washington MD - 06/20/2023 XR CHEST PORTABLE 1 VIEW 06/20/2023 2:04 PM Clinical History/comments: persistent SOB on HFNC; Comparison: Chest radiograph 06/18/2023.. Technique: Single portable AP view of the chest. Findings: Lines/tubes/devices: NG tube is seen coursing into the second duodenum itstip not visualized. There is a right internal jugular temporary pacemakerwire its tip projecting just within the right ventricle. Lungs: There has been partial reexpansion of the atelectatic left lowerlobe. There is some indistinctness of the pulmonary vasculature anddiffuse increase in lung density likely reflects edema. Pleura: No visible pleural abnormalities. Cardiac and mediastinal contours: There is atherosclerotic calcificationof the aortic arch. Soft tissues and extrathoracic findings: Normal. Bones: Normal. IMPRESSION Findings of improving left lower lobe atelectasis and persistentinterstitial pulmonary edema. [id number] Reese Blanco MD IMG DIAGNOSTIC IMAGI NG ORDERABLES * XR FEEDING TUBE PLACEMENT (06/20/2023 14:28 EDT) Anatomical Region Laterality Modality Abdomen Computed Radiogr aphy 06/20/2023 14:3 5 EDT Impressions 06/20/2023 14:35 EDT Findings/Impression: Portable AP view centered over the lower chest upper abdomen demonstrates that the feeding tube tip projects over the 2nd-3rd portion of the duodenum. This is neither a complete view of the chest nor of the abdomen. ??If either view is needed, formal films are recommended. [id number] Narrative 06/20/2023 14:35 EDT XR FEEDING TUBE PLACEMENT ??06/20/2023 2:05 PM Signs and Symptoms/Comments: NGT placement verification; Comparison: None. Procedure Note Tulio Morales MD - 06/20/2023 XR FEEDING TUBE PLACEMENT 06/20/2023 2:05 PM Signs and Symptoms/Comments: NGT placement verification; Comparison: None. IMPRESSION Findings/Impression: Portable AP view centered over the lower chest upper abdomen demonstratesthat the feeding tube tip projects over the 2nd-3rd portion of theduodenum. This is neither a complete view of the chest nor of the abdomen. Ifeither view is needed, formal films are recommended. [id number] Reese Blanco MD IMG DIAGNOSTIC IMAGI NG ORDERABLES * ECG REPORT - SCANNED (06/20/2023 9:33 EDT) 06/20/2023 9:33 EDT Scan 2 Counseling Psychologist PROCEDURE/MINOR VI GICAL ORDERABLES * IN AN ELECTIVE ENDOTRACHEAL AIRWAY (06/19/2023 13:30 EDT) Narrative Tadeo Selas AA - 06/19/2023 13:30 EDT Tadeo Seals AA ? 06/19/2023 13:49 Airway Date/Time: 06/19/2023 13:30 Urgency: elective Airway not difficult General Information and Staff Patient location during procedure: OR Anesthesiologist: Tigre Olmos MD PhD Resident/JUDGE CLERK: Tadeo Seals AA Performed: resident/JUDGE CLERK/AA Performed by: Tadeo Seals AA Authorized by: Tigre Olmos MD PhD ?? Indications and Patient Condition Indications for airway management: anesthesia Sedation level: GA Preoxygenated: yes Patient position: sniffing Ventilation assessment: 2 - Oral airway inserted Final Airway Details Final airway type: endotracheal airway Successful airway: ETT Cuffed: yes Successful intubation technique: video laryngoscopy Nunn Facilitating devices/methods: intubating stylet and cricoid pressure Endotracheal tube insertion site: oral Blade: Abdi Blade size: #3 ETT size (mm): 7.0 Cormack-Lehane Classification: view obtained with video laryngoscopy Placement verified by: chest auscultation, capnometry and palpation of cuff Measured from: teeth ETT to teeth (cm): 21 Number of attempts at approach: 1 Tigre Olmos MD PhD ANESTHE HOLLAND ORDERABLES * TRANSFUSION RECORD - SCANNED (06/19/2023 11:42 EDT) 06/19/2023 11:4 2 EDT Scan 2 Counseling Psychologist LAB INFO SERVICE AN D SUPPORT & PHONE RESULT * TRANSTHORACIC ECHO (TTE) COMPLETE W/DOPPLER W/CF NO CONTRAST (06/19/2023 9:46 EDT) Mitral deceleration time 141 ms [facility] [place] 1.4 cm2/m2 [facility] PO INT OF CARE AV DOI 0.89 [facility] POIN T OF CARE LV Diastolic Volume 79 mL [facility] LV Systolic Volume 35 mL [facility] Mitral A-wave peak velocity 1.0 m/s [facility] Mitral E-wave peak velocity 1.0 m/s [facility] Mitral peak gradient, D 4 mmHg [facility] Aortic peak gradient, S 9 mmHg [facility] Stroke volume (SV), LVOT DP 65 ml [facility] Aortic valve VTI, S 23.8 cm [facility] Aortic valve peak velocity, S 1.5 m/s [facility] C[facility] LVOT VTI, S 20.8 cm [facility] PO INT OF CARE LVOT peak velocity, S 1.3 m/s [facility] POINT OF CARE LVOT area 3.1 cm2 [facility] POIN T OF CARE LVOT ID, S 2.0 cm [facility] POI NT OF CARE LV IVRT, DP 60 msec [facility] PO INT OF CARE AV LVOT peak gradient 7 mmHg [facility] Velocity ratio, mean, LVOT/AV 0.82 [facility] Aortic mean gradient, S 5 mmHg [facility] Aortic valve area, peak velocity 2.7 cm2 [facility] Aortic valve area VTI 2.7 cm2 [facility] LVOT mean gradient, S 4 mmHg [facility] LV ejection fraction, 1-p A4C 50 % [facility] LV ejection fraction, 1-p A2C 63 % [facility] AV dimensionless index (DI) 1.4 [facility] Aortic valve mean velocity, S 1.0 m/s [facility] Aortic valve area 2.6 cm2 [facility] Aortic root ID 2.7 cm [facility] Ascending aorta ID, a-p 2.9 cm [facility] EF 56 % [facility] LV ID, ES, PLAX 2.5 2.1 - 4.0 cm [facility] LV PW thickness, ED, PLAX 1.0 0.6 - 1.1 cm [facility] LV ID, ED, PLAX 4.4 3.5 - 6.0 cm [facility] LVIDD BY MMODE 4.4 cm [facility] LA volume/bsa, ES, BP 17.0 ml/m2 [facility] LA volume, ES, BP 32.0 ml [facility] LA volume/bsa, ES, A4C 15.0 ml/m2 [facility] LA Atrial Area A2C 11.6 cm2 [facility] LA Atrial Length A2C 4.6 cm [facility] LA volumes, ES, A4C 28.0 ml [facility] LA Atrial Area A4C 11.6 cm2 [facility] LA Atrial Length A4C 3.9 cm [facility] Pulmonic valve mean velocity, S 1 cm/s [facility] LA ID, A-P, ES 2.8 cm [facility] LV end-diastolic volume, 1-p A4C 70 ml [facility] LV end diastolic volume 1-p A2C 69 ml [facility] Stroke index (SV/bsa) LVOT DP 34.0 ml/m2 [facility] LA/aortic root ratio 1.04 [facility] LV E/e', medial 10.0 [facility] LV e', lateral 0.13 m/s [facility] LV e', medial 0.10 m/s [facility] LVOT mean velocity, S 0.8 m/s [facility] Interventricular Septum to Posterior Wall Thickness Ratio 1 [facility] IVS thickness, ED, PLAX 0.9 cm [facility] LV E/e', lateral 7.1 [facility] LV E/e', average 9 [facility] GLS 19.0 % [facility] Anatomical Region Laterality Modality Ultrasound Narrative 06/19/2023 10:42 EDT ?Left??Ventricle: The left ventricular cavity was normal in size. Left ventricular systolic function was normal with an ejection fraction of 60-65%. Left ventricular diastolic parameters were normal. ?Right??Ventricle: The right ventricular cavity was normal in size. Right ventricular systolic function was normal. Normal RV S' >9.5cm/s. ?IVC/SVC: The inferior vena cava was normal in size. Left Ventricle The left ventricular cavity was normal in size. Left ventricular systolic function was normal with an ejection fraction of 60-65%. Left ventricular diastolic parameters were normal. There was mild hypertrophy of the left ventricle. Left ventricular wall motion was normal; there were no regional wall motion abnormalities. Global longitudinal strain was normal. Global longitudinal strain was -19.0%. Right Ventricle The right ventricular cavity was normal in size. Right ventricular systolic function was normal. Normal RV S' >9.5cm/s. Right ventricular wall thickness was normal. Left Atrium The left atrium was normal in size. Right Atrium The right atrium was normal in size. IVC/SVC The inferior vena cava was normal in size. The inferior vena cava demonstrated a diameter of <=21 mm and collapses >50%; therefore, the right atrial pressure is estimated at 0-5 mmHg. Mitral Valve Mitral valve structure was normal. There was no significant mitral valve stenosis or regurgitation. Tricuspid Valve Tricuspid valve structure was normal. There was no significant tricuspid valve regurgitation. There was no tricuspid valve stenosis. Aortic Valve The aortic valve structure was trileaflet. The aortic leaflets were mildly thickened. There was no aortic valve stenosis. There was no aortic valve regurgitation. AV Peak Velocity: 1.5 m/s. AV Mean Gradient: 5 mmHg. AV Area VTI: 2.7 cm2. Pulmonic Valve The pulmonic valve was not well visualized. There was no significant pulmonic valve regurgitation. There was no pulmonic valve stenosis. Ascending Aorta The aorta was normal in size. Pericardium There was no pericardial effusion. Pulmonic Artery Unable to assess PA pressure. Study Details Study status: Routine. Transthoracic echocardiography. M-Mode, complete 2D, complete spectral Doppler, and color Doppler.The study was interpreted by [facility]. Pertinent images and digital data are archived for permanent storage and are available for subsequent review. Scanning was performed from the apical, parasternal, subcostal and suprasternal acoustic windows. Overall the study quality was adequate. The study was difficult due to patient clinical status and body habitus. Images were obtained using cardiac ultrasound machine EPIQ #21. Reese Blanco MD CARDIAC ECHO ORDERAB LES * EKG 12-LEAD (06/19/2023 9:07 EDT) 06/19/2023 9:07 EDT [facility] EKG - 06/23/2023 15:27 EDT ? [facility] ? Test Date: ?2023-06-19 Pat Name: ? JENNIFER JAMES ? Department: ?? [facility] ? Room: ? M316 Gender: ? Female ? 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 FRONT END DRUPAL DEVELOPER : ?1970 ? Requested By: ATNONY HENSLEY G Order Number: [id number] ? Reading MD: ?? ROBB BARBOSA MD ? Measurements Intervals ?Slovan ? Rate: ? 100 ?P: ?39 IN: ? 178 ?QRS: ?19 QRSD: ? 72 ? T: ?54 QT: ? 325 ? QTc: ?419 ? Interpretive Statements SINUS TACHYCARDIA LOW QRS VOLTAGE IN PRECORDIAL LEADS ANTEROSEPTAL MYOCARDIAL INFARCTION , OF INDETERMINATE AGE Compared to ECG 06/19/2023 02:03:28 Myocardial infarct finding still present I reviewed the tracing and have either agreed or edited the findings in this report. Electronically Signed On 06-23-2023 15:27:18 EDT by ROBB BARBOSA MD. Procedure Note Robb Barbosa MD - 06/23/2023 [facility] Test Date: 2023-06-19 Pat Name: JENNIFER JAMES Department: [place] [address] [place] [facility] [place] Multi Needle Machine Operator: ANAND : 1970 Requested By: ANTONY Lara Order Number: [id number] Reading MD: ROBB BARBOSA MD Measurements Intervals Slovan Rate: 100 P: 39 IN: 178 QRS: 19 QRSD: 72 T: 54 QT: 325 QTc: 419 Interpretive Statements SINUS TACHYCARDIA LOW QRS VOLTAGE IN PRECORDIAL LEADS ANTEROSEPTAL MYOCARDIAL INFARCTION , OF INDETERMINATE AGE Compared to ECG 06/19/2023 02:03:28 Myocardial infarct finding still present I reviewed the tracing and have either agreed or edited the findings inthis report. Electronically Signed On 06-23-2023 15:27:18 EDT by ROBB FIGUEREDO. Tonia Hardy CARDIAC ECG ORDERABL ES [facility] EKG * EKG 12-LEAD (06/19/2023 2:03 EDT) 06/19/2023 2:03 EDT Narrative [facility] EKG - 06/23/2023 15:24 EDT ? [facility] ? Test Date: ?2023-06-19 Pat Name: ? JENNIFER JAMES ? Department: ?? [facility] [address] ? Room: ? M316 Gender: ? Female ? 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 [id number] : ?1970 ? Requested By: DIANNA CRAFT Order Number: [id number] ? Reading MD: ?? ROBB BARBOSA MD ? Measurements Intervals ?Slovan ? Rate: ? 116 ?P: ?44 IN: ? 180 ?QRS: ?-6 QRSD: ? 69 ? T: ?22 QT: ? 292 ? QTc: ?406 ? Interpretive Statements SINUS TACHYCARDIA LOW QRS VOLTAGE IN PRECORDIAL LEADS ANTEROSEPTAL MYOCARDIAL INFARCTION , OF INDETERMINATE AGE ST DEPRESSION, CONSIDER SUBENDOCARDIAL INJURY Motional artifact limits the interpretation of the study. Compared to ECG 06/18/2023 00:08:09 ST (T wave) deviation now present Sinus rhythm no longer present Myocardial infarct finding still present I reviewed the tracing and have either agreed or edited the findings in this report. Electronically Signed On 06-23-2023 15:24:34 EDT by ROBB BARBOSA MD. Procedure Note Robb Barbosa MD - 06/23/2023 [facility] Test Date: 2023-06-19 Pat Name: JENNIFER JAMES Department: [place] [address] Room: M316 Gender: Female Multi Needle Machine Operator: [id number] : 1970 Requested By: DIANNA Noonan Number: [id number] Reading MD: ROBB BARBOSA MD Measurements Intervals Slovan Rate: 116 P: 44 IN: 180 QRS: -6 QRSD: 69 T: 22 QT: 292 QTc: 406 Interpretive Statements SINUS TACHYCARDIA LOW QRS VOLTAGE IN PRECORDIAL LEADS ANTEROSEPTAL MYOCARDIAL INFARCTION , OF INDETERMINATE AGE ST DEPRESSION, CONSIDER SUBENDOCARDIAL INJURY Motional artifact limits the interpretation of the study. Compared to ECG 06/18/2023 00:08:09 ST (T wave) deviation now present Sinus rhythm no longer present Myocardial infarct finding still present I reviewed the tracing and have either agreed or edited the findings inthis report. Electronically Signed On 06-23-2023 15:24:34 EDT by ROBB FIGUEREDO. Ángel Rosen MD CARDIAC ECG ORDERABL ES [facility] EKG * XR FEEDING TUBE PLACEMENT (06/18/2023 15:42 EDT) Anatomical Region Laterality Modality Abdomen Computed Radiogr aphy 06/18/2023 16:0 8 EDT Impressions 06/18/2023 16:08 EDT Findings/Impression: Portable AP view centered over the lower chest upper abdomen demonstrates that the feeding tube tip projects over the gastric antrum. Nonobstructive bowel gas pattern. Suspected left pleural effusion with adjacent atelectasis, as evaluated on same-day chest radiograph. This is neither a complete view of the chest nor of the abdomen. ??If either view is needed, formal films are recommended. I have personally reviewed the images and the above interpretation and agree with the findings. [id number] Narrative 06/18/2023 16:08 EDT XR FEEDING TUBE PLACEMENT ??06/18/2023 3:36 PM Signs and Symptoms/Comments: KO placed; Comparison: Feeding tube radiograph 06/15/2023, same day chest radiograph Procedure Note Tulio Morales MD - 06/18/2023 XR FEEDING TUBE PLACEMENT 06/18/2023 3:36 PM Signs and Symptoms/Comments: KO placed; Comparison: Feeding tube radiograph 06/15/2023, same day chest radiograph IMPRESSION Findings/Impression: Portable AP view centered over the lower chest upper abdomen demonstratesthat the feeding tube tip projects over the gastric antrum. Nonobstructive bowel gas pattern. Suspected left pleural effusion withadjacent atelectasis, as evaluated on same-day chest radiograph. This is neither a complete view of the chest nor of the abdomen. Ifeither view is needed, formal films are recommended. I have personally reviewed the images and the above interpretation andagree with the findings. [id number] Rui Gomez MD IMG DIAGNOSTIC IM AGING ORDERABLES * XR CHEST PORTABLE LINE PLACEMENT (06/18/2023 15:41 EDT) Anatomical Region Laterality Modality Chest Computed Radiogr aphy 06/18/2023 15:4 8 EDT Impressions 06/18/2023 15:48 EDT Right internal jugular temporary pacemaker wire lead in right ventricle. Dense left lower lobe atelectasis. Probable bilateral pleural effusions. [id number] Narrative 06/18/2023 15:48 EDT XR CHEST PORTABLE LINE PLACEMENT ??06/18/2023 3:30 PM Clinical History/comments: Right subclavian cordis replacement and Jeremi placement; Comparison: Chest radiograph June 18, 2023.. Technique: Single portable AP view of the chest. Findings: Lines/tubes: The right-sided pacemaker wire placed via the right internal jugular vein is seen with its lead in the right ventricle. A feeding tube enters the stomach its tip not visualized. Lungs: There is dense left lower lobe atelectasis. Pleura: Hazy increased density over the right hemithorax may reflect a posteriorly situated right pleural effusion in the semierect patient. A small left effusion cannot be excluded. Cardiac and mediastinal contours: Normal. Soft tissues and extrathoracic findings: No significant abnormalities. Bones: Normal. Procedure Note Redd Washington MD - 06/18/2023 XR CHEST PORTABLE LINE PLACEMENT 06/18/2023 3:30 PM Clinical History/comments: Right subclavian cordis replacement and Jeremi placement; Comparison: Chest radiograph June 18, 2023.. Technique: Single portable AP view of the chest. Findings: Lines/tubes: The right-sided pacemaker wire placed via the right internaljugular vein is seen with its lead in the right ventricle. A feeding tubeenters the stomach its tip not visualized. Lungs: There is dense left lower lobe atelectasis. Pleura: Hazy increased density over the right hemithorax may reflect aposteriorly situated right pleural effusion in the semierect patient. Asmall left effusion cannot be excluded. Cardiac and mediastinal contours: Normal. Soft tissues and extrathoracic findings: No significant abnormalities. Bones: Normal. IMPRESSION Right internal jugular temporary pacemaker wire lead in right ventricle.Dense left lower lobe atelectasis. Probable bilateral pleural effusions. [id number] Ángel Rosen MD IMG DIAGNOSTIC IMAGI NG ORDERABLES * IN [facility] NON-TUNNELED CENTRAL VENOUS CATH AGE 5 YR/>, HC - [facility] NON-TUNNELED CENTRAL VENOUS CATH AGE 5 YR/> (06/18/2023 13:30 EDT) Narrative [facility] - 06/18/2023 13:30 EDT Ángel Rosen MD ? 06/19/2023 ??3:22 Insert Central Line (Non-Tunneled) Date/Time: 06/18/2023 13:30 Performed by: Ángel Rosen MD Authorized by: Violeta Bach MD ??Consent: The procedure was performed in an emergent situation. Verbal consent not obtained. Written consent not obtained. Patient identity confirmed: arm band Time out: Immediately prior to procedure a time out was called to verify the correct patient, procedure, equipment, senior technical support analyst and site/side marked as required. Indications: Pacer wire placement. Sedation: Patient sedated: no Preparation: skin prepped with 2% chlorhexidine Skin prep agent dried: skin prep agent completely dried prior to procedure Hand hygiene: hand hygiene performed prior to central venous catheter insertion Location details: right subclavian Site selection rationale: Replacement of an existing line Patient position: flat Catheter type: Cordis Catheter size: 6 Fr Pre-procedure: landmarks identified Ultrasound guidance: no Number of attempts: 1 Successful placement: yes Post-procedure: line sutured and dressing applied Assessment: blood return through all ports, free fluid flow, placement verified by x-ray and no pneumothorax on x-ray Comments: After exchange of the cordis, a pacer wire was floated until electrical and mechanical capture was achieved. Balloon was deflated and the wire secured in place. The rate of the pacer was turned to 60, lower than the patient's intrinsic rate of 80. Violeta Bach MD PROCEDURE/MINOR VI GICAL ORDERABLES [facility] POINT OF CARE * CT CHEST WO CONTRAST (06/18/2023 9:07 EDT) Anatomical Region Laterality Modality Chest Computed Tomogra phy 06/18/2023 10:0 3 EDT Impressions 06/18/2023 10:03 EDT 1. ??Appropriate positioning of the right internal jugular approach central venous sheath containing transvenous pacing wire. 2. ??Bibasilar consolidations, left greater than right. This most likely reflects atelectasis given volume loss. Evaluation for concurrent pneumonia is limited due to lack of contrast. 3. ??Small bilateral pleural effusions, left greater than right. 4. ??Scattered groundglass opacities, predominantly along the mediastinum, may represent small contusions due to resuscitation efforts. 5. ??Acute nondisplaced sternal body fracture and multiple bilateral acute nondisplaced to minimally displaced rib fractures, also related to resuscitation efforts. 6. ??Asymmetric skin thickening and left breast edema. Correlate with physical exam. Follow-up with [facility] imaging center is recommended if these findings are not felt to be acute. I have personally reviewed the images and the above interpretation and agree with the findings. [id number] Narrative 06/18/2023 10:[address] CHEST WO CONTRAST ??06/18/2023 8:56 AM Clinical History/Comments: Hypoxia, rule out right IJ catheter migration Technique: CT scan of the chest was performed without contrast material. Thin section reconstructions were performed. This CT used either dose modulation and/or iterative reconstruction techniques to lower radiation dose. Comparison: Multiple prior chest radiographs, most recently 06/18/2023. Findings: Lower neck: No significant abnormalities. Mediastinum and imelda (non-vascular): No enlarged mediastinal or hilar lymph nodes. ??The esophagus appears normal. Cardiovascular: Appropriate positioning of the right internal jugular approach central venous sheath containing transvenous pacing wire. No visible discontinuity, terminating along the wall of the right lateral ventricle, near the apex. No pericardial disease. Normal sized cardiac chambers. Mild calcification of the coronary arteries. Calcification of the thoracic aorta and its major branches. Lungs and airways: Patent trachea and mainstem bronchi. Bibasilar consolidations with apparent volume loss, left greater than right. Bandlike scarring within the lingula and right middle lobe. Scattered groundglass opacities, predominantly along the border of the upper mediastinum within the bilateral upper lobes. Pleura: Small bilateral pleural effusions, left greater than right. Upper abdomen (limited to upper abdomen, not optimized for abdominal imaging): Atherosclerosis. Accessory spleen. Chest wall soft tissues: Asymmetric skin thickening and with ill-defined fluid density within the left breast. No focal nodules or masses. Bones: Multiple bilateral acute nondisplaced to minimally displaced rib fractures, presumably related to resuscitation efforts. Acute nondisplaced sternal body fracture. Procedure Note Luis Nagel MD - 06/18/2023 CT CHEST WO CONTRAST 06/18/2023 8:56 AM Clinical History/Comments: Hypoxia, rule out right IJ catheter migration Technique: CT scan of the chest was performed without contrast material. Thin sectionreconstructions were performed. This CT used either dose modulation and/or iterative reconstructiontechniques to lower radiation dose. Comparison: Multiple prior chest radiographs, most recently 06/18/2023. Findings: Lower neck: No significant abnormalities. Mediastinum and imelda (non-vascular): No enlarged mediastinal or hilarlymph nodes. The esophagus appears normal. Cardiovascular: Appropriate positioning of the right internal jugularapproach central venous sheath containing transvenous pacing wire. Novisible discontinuity, terminating along the wall of the right lateralventricle, near the apex. No pericardial disease. Normal sized cardiac chambers. Mild calcificationof the coronary arteries. Calcification of the thoracic aorta and itsmajor branches. Lungs and airways: Patent trachea and mainstem bronchi. Bibasilarconsolidations with apparent volume loss, left greater than right.Bandlike scarring within the lingula and right middle lobe. Scatteredgroundglass opacities, predominantly along the border of the uppermediastinum within the bilateral upper lobes. Pleura: Small bilateral pleural effusions, left greater than right. Upper abdomen (limited to upper abdomen, not optimized for abdominalimaging): Atherosclerosis. Accessory spleen. Chest wall soft tissues: Asymmetric skin thickening and with ill-definedfluid density within the left breast. No focal nodules or masses. Bones: Multiple bilateral acute nondisplaced to minimally displaced ribfractures, presumably related to resuscitation efforts. Acute nondisplacedsternal body fracture. IMPRESSION 1. Appropriate positioning of the right internal jugular approach centralvenous sheath containing transvenous pacing wire. 2. Bibasilar consolidations, left greater than right. This most likelyreflects atelectasis given volume loss. Evaluation for concurrentpneumonia is limited due to lack of contrast. 3. Small bilateral pleural effusions, left greater than right. 4. Scattered groundglass opacities, predominantly along the mediastinum,may represent small contusions due to resuscitation efforts. 5. Acute nondisplaced sternal body fracture and multiple bilateral acutenondisplaced to minimally displaced rib fractures, also related toresuscitation efforts. 6. Asymmetric skin thickening and left breast edema. Correlate withphysical exam. Follow-up with breast care imaging center is recommended ifthese findings are not felt to be acute. I have personally reviewed the images and the above interpretation andagree with the findings. [id number] Rui Gomez MD IMG CT ORDERABLES * (ABNORMAL) TRIGLYCERIDE (06/18/2023 4:32 EDT) Only the most recent of2 resultswithin the time period is included. Triglyceride 335(H) <=150 mg/dL 06/18/2023 5:08 EDT [facility] Comment:Note that therapeuti c goals will differ between patients based on cardiac risk factors and current medical therapy. Blood VENOUS BLOOD / Unknown Venipuncture / Unknown 06/18/2023 4:32 EDT 06/18/2023 4:36 EDT Chris More MD CHEMISTRY & BLO OD GAS ORDERABLES [facility] [address] [place] [address] * XR CHEST PORTABLE 1 VIEW (06/18/2023 1:23 EDT) Anatomical Region Laterality Modality Computed Radiogr aphy 06/18/2023 9:16 EDT Impressions 06/18/2023 9:16 EDT Interval extubation and removal of NG tube. Transvenous pacemaker wire tip in right ventricular apex. Interval development of left lower lobe atelectasis. Probable developing right lower lobe atelectasis. [id number] Narrative 06/18/2023 9:16 EDT XR CHEST PORTABLE 1 VIEW ??06/18/2023 1:01 AM Clinical History/comments: increased O2 req. Clear lung auscultation; Comparison: Chest radiograph June 16, 2023.. Technique: Single portable AP view of the chest. Findings: Lines/tubes/devices: The right transvenous pacemaker wire tip is in the right ventricular apex. The endotracheal tube and nasogastric tube seen previously have been removed. Lungs: There is dense left lower lobe opacification and obscuring the left diaphragm reflecting left lower lobe atelectasis. There is ill-defined opacity at the right lung base likely reflecting developing right lower lobe atelectasis. Pleura: There is no obvious pleural fluid collection identified. Cardiac and mediastinal contours: There is atherosclerotic calcification of the aortic arch. Soft tissues and extrathoracic findings: ??Normal. Bones: Normal. Procedure Note Redd Washington MD - 06/18/2023 XR CHEST PORTABLE 1 VIEW 06/18/2023 1:01 AM Clinical History/comments: increased O2 req. Clear lung auscultation; Comparison: Chest radiograph June 16, 2023.. Technique: Single portable AP view of the chest. Findings: Lines/tubes/devices: The right transvenous pacemaker wire tip is in theright ventricular apex. The endotracheal tube and nasogastric tube seenpreviously have been removed. Lungs: There is dense left lower lobe opacification and obscuring the leftdiaphragm reflecting left lower lobe atelectasis. There is ill-definedopacity at the right lung base likely reflecting developing right lowerlobe atelectasis. Pleura: There is no obvious pleural fluid collection identified. Cardiac and mediastinal contours: There is atherosclerotic calcificationof the aortic arch. Soft tissues and extrathoracic findings: Normal. Bones: Normal. IMPRESSION Interval extubation and removal of NG tube. Transvenous pacemaker wire tipin right ventricular apex. Interval development of left lower lobeatelectasis. Probable developing right lower lobe atelectasis. [id number] Loni Valentine MD PhD IMG DIAGNOSTIC IMAG ING ORDERABLES * EKG 12-LEAD (06/18/2023 0:08 EDT) 06/18/2023 0:08 EDT Narrative [facility] EKG - 06/27/2023 16:04 EDT ? [facility] ? Test Date: ?2023-06-18 Pat Name: ? JENNIFER JAMES ? Department: ?? [facility] [address] ? Room: ? M316 Gender: ? Female ? 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 [id number] : ?1970 ? Requested By: AKILA DAILEY Order Number: [id number] ? Reading MD: ?? FRIEDERIKE TY MD ? Measurements Intervals ?Slovan ? Rate: ? 86 ? P: ?45 IN: ? 185 ?QRS: ?28 QRSD: ? 83 ? T: ?31 QT: ? 352 ? QTc: ?423 ? Interpretive Statements SINUS RHYTHM LOW QRS VOLTAGE IN PRECORDIAL LEADS POSSIBLE RIGHT VENTRICULAR CONDUCTION DELAY SEPTAL MYOCARDIAL INFARCTION , PROBABLY OLD Compared to ECG 06/16/2023 05:50:59 No significant changes I reviewed the tracing and have either agreed or edited the findings in this report. Electronically Signed On 06-27-2023 16:04:42 EDT by BETO CRAWFORD MD. Procedure Note Beto Crawford MD - 06/27/2023 [facility] Test Date: 2023-06-18 Pat Name: JENNIFER JAMES Department: [place] [address] [place] [facility] [place]: [place] Multi Needle Machine Operator: [id number] : 1970 Requested By: AKILA DAILEY Order Number: [id number] Reading MD: BETO CORONA Measurements Intervals Slovan Rate: 86 P: 45 IN: 185 QRS: 28 QRSD: 83 T: 31 QT: 352 QTc: 423 Interpretive Statements SINUS RHYTHM LOW QRS VOLTAGE IN PRECORDIAL LEADS POSSIBLE RIGHT VENTRICULAR CONDUCTION DELAY SEPTAL MYOCARDIAL INFARCTION , PROBABLY OLD Compared to ECG 06/16/2023 05:50:59 No significant changes I reviewed the tracing and have either agreed or edited the findings inthis report. Electronically Signed On 06-27-2023 16:04:42 EDT by BETO CRAWFORD MD. Loni Valentine MD PhD CARDIAC ECG ORDERAB LES [facility] EKG * CALCIUM, IONIZED (06/17/2023 23:43 EDT) Only the most recent of6 resultswithin the time period is included. Calcium, Ionized 1.18 1.14 - 1.35 mmol/L 06/18/2023 0:00 EDT [facility] Blood VENOUS BLOOD / Unknown Venipuncture / Unknown 06/17/2023 23:43 EDT 06/17/2023 23:46 EDT Loni Valentine MD PhD CHEMISTRY & BLOOD G ORDERABLES [facility] [address] [place] [address] * ECG REPORT - SCANNED (06/17/2023 12:52 EDT) 06/17/2023 12:5 2 EDT Scan 2 Counseling Psychologist PROCEDURE/MINOR VI GICAL ORDERABLES * TRANSFUSE RED BLOOD CELLS (06/17/2023 10:53 EDT) Blood Loni Valentine MD PhD NURSING TREATMENT - BLOOD ADMINISTRATION * XR CHEST PORTABLE LINE PLACEMENT (06/16/2023 19:30 EDT) Anatomical Region Laterality Modality Chest Computed Radiogr aphy 06/17/2023 9:39 EDT Impressions 06/17/2023 9:39 EDT Slight retraction of pacemaker lead tip, now projecting just beyond tricuspid valve within the right ventricle. ET tube and NG tube as seen previously. Dense left lower lobe atelectasis and probable subsegmental atelectasis at the right lung base. [id number] Narrative 06/17/2023 9:39 EDT XR CHEST PORTABLE LINE PLACEMENT ??06/16/2023 7:23 PM Clinical History/comments: Pacer wire monitoring, line moved; Comparison: Chest radiographs June 16, 2023.. Technique: Single portable AP view of the chest. Findings: Lines/tubes: Endotracheal tube nasogastric tube and right internal jugular temporary pacemaker wire are seen, the pacemaker wire projecting just within the right ventricle having retracted from its prior position in the right ventricle on the prior examination. Lungs: There has been the development of dense left lower lobe airspace opacification likely reflecting atelectasis. There are likely some additional areas of subsegmental atelectasis within the medial right lower lobe. Pleura: I cannot exclude a small left pleural effusion. Cardiac and mediastinal contours: Normal. Soft tissues and extrathoracic findings: No significant abnormalities. Bones: Normal. Procedure Note Redd Washington MD - 06/17/2023 XR CHEST PORTABLE LINE PLACEMENT 06/16/2023 7:23 PM Clinical History/comments: Pacer wire monitoring, line moved; Comparison: Chest radiographs June 16, 2023.. Technique: Single portable AP view of the chest. Findings: Lines/tubes: Endotracheal tube nasogastric tube and right internal jugulartemporary pacemaker wire are seen, the pacemaker wire projecting justwithin the right ventricle having retracted from its prior position in theright ventricle on the prior examination. Lungs: There has been the development of dense left lower lobe airspaceopacification likely reflecting atelectasis. There are likely someadditional areas of subsegmental atelectasis within the medial right lowerlobe. Pleura: I cannot exclude a small left pleural effusion. Cardiac and mediastinal contours: Normal. Soft tissues and extrathoracic findings: No significant abnormalities. Bones: Normal. IMPRESSION Slight retraction of pacemaker lead tip, now projecting just beyondtricuspid valve within the right ventricle. ET tube and NG tube as seen previously. Dense left lower lobe atelectasis and probable subsegmental atelectasis atthe right lung base. [id number] Reese Blanco MD IMG DIAGNOSTIC IMAGI NG ORDERABLES * BACTERIAL CULTURE, BLOOD (06/16/2023 12:56 EDT) Only the most recent of2 resultswithin the time period is included. Organism ID No Growth at 5 days 06/21/2023 13:15 EDT [facility] Blood VENOUS BLOOD / Unknown Venipuncture / Unknown 06/16/2023 12:56 EDT 06/16/2023 13:13 EDT Reese Blanco MD MICROBIOLOGY - GENER AL ORDERABLES [facility] [address], [place] [id number] * XR CHEST PORTABLE LINE PLACEMENT (06/16/2023 10:55 EDT) Anatomical Region Laterality Modality Chest Computed Radiogr aphy 06/16/2023 11:0 0 EDT Impressions 06/16/2023 11:00 EDT Lines and tubes as described. Improving left lower lobe atelectasis. [id number] Narrative 06/16/2023 11:00 EDT XR CHEST PORTABLE LINE PLACEMENT ??06/16/2023 10:44 AM Clinical History/comments: Transvenous pacer placement; Comparison: 55 minutes prior Technique: Single portable AP view of the chest. Findings: Lines/tubes: Endotracheal tube in the midthoracic trachea. Gastroesophageal tube in the stomach. Right subclavian transvenous pacer in the right ventricle. Lungs: Interim improvement of left lower lobe atelectasis. Pleura: No visibile pleural abnormalities. Cardiac and mediastinal contours: Normal cardiac silhouette. Atherosclerotic aorta. Soft tissues and extrathoracic findings: No significant abnormalities. Bones: Osteoarthrosis. No acute findings. Procedure Note Juwan Leyva MD - 06/16/2023 XR CHEST PORTABLE LINE PLACEMENT 06/16/2023 10:44 AM Clinical History/comments: Transvenous pacer placement; Comparison: 55 minutes prior Technique: Single portable AP view of the chest. Findings: Lines/tubes: Endotracheal tube in the midthoracic trachea.Gastroesophageal tube in the stomach. Right subclavian transvenous pacerin the right ventricle. Lungs: Interim improvement of left lower lobe atelectasis. Pleura: No visibile pleural abnormalities. Cardiac and mediastinal contours: Normal cardiac silhouette.Atherosclerotic aorta. Soft tissues and extrathoracic findings: No significant abnormalities. Bones: Osteoarthrosis. No acute findings. IMPRESSION Lines and tubes as described. Improving left lower lobe atelectasis. [id number] Reese Blanco MD IMG DIAGNOSTIC IMAGI NG ORDERABLES * XR CHEST PORTABLE LINE PLACEMENT (06/16/2023 8:57 EDT) Anatomical Region Laterality Modality Chest Computed Radiogr aphy 06/16/2023 10:2 1 EDT Impressions 06/16/2023 10:21 EDT Improving left lower lobe atelectasis. Endotracheal tube in the midthoracic trachea. Apparent kink of the proximal portion of the subclavian catheter which is likely projectional. [id number] Narrative 06/16/2023 10:21 EDT XR CHEST PORTABLE LINE PLACEMENT ??06/16/2023 8:42 AM Clinical History/comments: ETT placement check; Comparison: June 15, 2023. Technique: Single portable AP view of the chest. Supine Findings: Lines/tubes: Endotracheal tube terminates in the midthoracic trachea. Gastroesophageal catheter extends below the left hemidiaphragm into the stomach. Right subclavian catheter terminates in the lower portion the superior vena cava. Apparent kink of the proximal portion of the catheter at the level of the clavicle is likely projectional. Lungs: Improved left lower lobe density, most likely improving atelectasis.. Pleura: No visibile pleural abnormalities. Cardiac and mediastinal contours: Normal. Soft tissues and extrathoracic findings: No significant abnormalities. Bones: Degenerative changes. No acute abnormality. Procedure Note Juwan Leyva MD - 06/16/2023 XR CHEST PORTABLE LINE PLACEMENT 06/16/2023 8:42 AM Clinical History/comments: ETT placement check; Comparison: June 15, 2023. Technique: Single portable AP view of the chest. Supine Findings: Lines/tubes: Endotracheal tube terminates in the midthoracic trachea.Gastroesophageal catheter extends below the left hemidiaphragm into thestomach. Right subclavian catheter terminates in the lower portion thesuperior vena cava. Apparent kink of the proximal portion of the catheterat the level of the clavicle is likely projectional. Lungs: Improved left lower lobe density, most likely improvingatelectasis.. Pleura: No visibile pleural abnormalities. Cardiac and mediastinal contours: Normal. Soft tissues and extrathoracic findings: No significant abnormalities. Bones: Degenerative changes. No acute abnormality. IMPRESSION Improving left lower lobe atelectasis. Endotracheal tube in the midthoracic trachea. Apparent kink of the proximal portion of the subclavian catheter which islikely projectional. [id number] Reese Blanco MD IMG DIAGNOSTIC IMAGI NG ORDERABLES * IN AN EMERGENT ENDOTRACHEAL AIRWAY, IN ANESTHESIA NON-TIMED PLACEHOLDER (06/16/2023 8:30 EDT) Tonia Centeno - 06/16/2023 8:30 EDT Tonia Hardy ? 06/16/2023 ??8:43 Airway Date/Time: 06/16/2023 8:30 Urgency: emergent Airway not difficult General Information and Staff Anesthesiologist: Chato Serrano MD Resident/JUDGE CLERK: Tonia Hardy Performed: resident/JUDGE CLERK/AA and anesthesiologist Performed by: Tonia Hardy Authorized by: Chato Serrano MD ?? Consent for Airway (if performed for an anesthetic, see related documentation for consents) Consent: The procedure was performed in an emergent situation. Verbal consent not obtained. Written consent not obtained. Risks and benefits: risks, benefits and alternatives were not discussed Indications and Patient Condition Indications for airway management: cardiovascular instability Sedation level: GA Preoxygenated: yes Patient position: sniffing MILS Maintained: No Ventilation assessment: 2 - Oral airway inserted Final Airway Details Final airway type: endotracheal airway Successful airway: ETT Cuffed: yes Successful intubation technique: video laryngoscopy [place] Facilitating devices/methods: intubating stylet and anterior pressure/BURP Endotracheal tube insertion site: oral Blade size: #4 ETT size (mm): 7.5 Placement verified by: chest auscultation, capnometry and palpation of cuff Number of attempts at approach: 1 Additional Comments Atraumatic [place] 4 intubation by Troy MCCLENDON (orthopedics). Size 3 blade preferable if available. Chato Serrano MD ANESTHESIA ORDERABLE S * HOLD SST (06/16/2023 8:20 EDT) Hold Hold 06/16/2023 9:31 EDT [facility] Blood VENOUS BLOOD / Unknown 06/16/2023 8:20 EDT 06/16/2023 8:20 EDT Chris More MD LAB INFO SERVIC E AND SUPPORT & PHONE RESULT [facility] [address] [place] [phone] * HOLD BLUE TOP (06/16/2023 8:20 EDT) Hold Hold 06/16/2023 9:31 EDT [facility] Blood VENOUS BLOOD / Unknown 06/16/2023 8:20 EDT 06/16/2023 8:20 EDT Chris More MD LAB INFO SERVIC E AND SUPPORT & PHONE RESULT Performing Organization Address City/[facility]/ZIP Co de Phone Number [facility] [address] [place] [phone] * LYME AB (06/16/2023 8:20 EDT) Pathologist [facility] [place] Ab Negative Negative 06/17/2023 11:26 EDT [facility] Blood VENOUS BLOOD / Unknown 06/16/2023 8:20 EDT 06/16/2023 8:20 EDT Reese Blanco MD IMMUNOLOGY AND SEROL OGY ORDERABLES Performing Organization Address [facility] Co de Phone Number [facility] [address] [place] [phone] * LACTIC ACID (06/16/2023 8:05 EDT) Only the most recent of4 resultswithin the time period is included. [facility] Lactic Acid 1.9 <=2.0 mmol/L 06/16/2023 8:39 EDT [facility] Blood VENOUS BLOOD / Unknown Venipuncture / Unknown 06/16/2023 8:05 EDT 06/16/2023 8:19 EDT Reese Blanco MD CHEMISTRY & BLOOD GA S ORDERABLES Performing Organization Address [facility]/ZIP Co de Phone Number [facility] [address] [place] [phone] * EKG 12-LEAD (06/16/2023 5:50 EDT) 06/16/2023 5:50 EDT Narrative [facility] - 06/17/2023 12:45 EDT ? [facility] ? Test Date: ?2023-06-16 Pat Name: ? JENNIFER JAMES ? Department: ?? [facility] ? Room: ? M316 Gender: ? Female ? 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 Requested By: ANTONY HENSLEY G Order Number: [id number] ? Reading MD: ?? VILMA OLIVEIRA MD ? Measurements Intervals ?Slovan ? Rate: ? 69 ? P: ?33 IN: ? 200 ?QRS: ?17 QRSD: ? 84 ? T: ?34 QT: ? 401 ? QTc: ?432 ? Interpretive Statements SINUS RHYTHM WITH OCCASIONAL SUPRAVENTRICULAR PREMATURE COMPLEXES LOW QRS VOLTAGE IN PRECORDIAL LEADS POSSIBLE RIGHT VENTRICULAR CONDUCTION DELAY SEPTAL MYOCARDIAL INFARCTION , PROBABLY OLD Compared to ECG 06/15/2023 01:38:55 Low QRS voltage now present Myocardial infarct finding still present I reviewed the tracing and have either agreed or edited the findings in this report. Electronically Signed On 06-17-2023 12:45:07 EDT by VILMA OLIVEIRA MD. Procedure Note Vilma Oliveira MD - 06/17/2023 [facility] Test Date: 2023-06-16 Pat Name: JENNIFER JAMES Department: [place] [address] [place] [facility] [place]: [place] Multi Needle Machine Operator: : 1970 Requested By: ANTOYN Lara Order Number: [id number] Reading MD: VILMA OLIVEIRA MD Measurements Intervals Slovan Rate: 69 P: 33 IN: 200 QRS: 17 QRSD: 84 T: 34 QT: 401 QTc: 432 Interpretive Statements SINUS RHYTHM WITH OCCASIONAL SUPRAVENTRICULAR PREMATURE COMPLEXES LOW QRS VOLTAGE IN PRECORDIAL LEADS POSSIBLE RIGHT VENTRICULAR CONDUCTION DELAY SEPTAL MYOCARDIAL INFARCTION , PROBABLY OLD Compared to ECG 06/15/2023 01:38:55 Low QRS voltage now present Myocardial infarct finding still present I reviewed the tracing and have either agreed or edited the findings inthis report. Electronically Signed On 06-17-2023 12:45:07 EDT by VILMA BRIONES. Tonia Hardy CARDIAC ECG ORDERABL ES [facility] EKG * XR FEEDING TUBE PLACEMENT (06/15/2023 10:41 EDT) Anatomical Region Laterality Modality Abdomen Computed Radiogr aphy 06/15/2023 10:5 1 EDT Impressions 06/15/2023 10:51 EDT Findings/Impression: Portable AP view centered over the lower chest upper abdomen demonstrates that the gastroesophageal catheter tip projects over the body of the. The visualized bowel gas pattern is normal. There is left lower lobe lung opacity concerning for pneumonia. This is neither a complete view of the chest nor of the abdomen. ??If either view is needed, formal films are recommended. [id number] Narrative 06/15/2023 10:51 EDT XR FEEDING TUBE PLACEMENT ??06/15/2023 10:36 AM Signs and Symptoms/Comments: NGT placement verification; Comparison: None. Procedure Note Juwan Leyva MD - 06/15/2023 XR FEEDING TUBE PLACEMENT 06/15/2023 10:36 AM Signs and Symptoms/Comments: NGT placement verification; Comparison: None. IMPRESSION Findings/Impression: Portable AP view centered over the lower chest upper abdomen demonstratesthat the gastroesophageal catheter tip projects over the body of the. The visualized bowel gas pattern is normal. There is left lower lobe lungopacity concerning for pneumonia. This is neither a complete view of the chest nor of the abdomen. Ifeither view is needed, formal films are recommended. [id number] Tonia Hardy [facility] DIAGNOSTIC IMAGI NG ORDERABLES * VANCOMYCIN, RANDOM (06/15/2023 5:10 EDT) Only the most recent of3 resultswithin the time period is included. Vancomycin Random 14.3 See Note ??g/mL 06/15/2023 5:43 EDT [facility] Comment: NOTE: Reference Ranges: Trough: ??10.0 - 20.0 ug/mL Peak: ??25.0 - 50.0 ug/mL Blood VENOUS BLOOD / Unknown Venipuncture / Unknown 06/15/2023 5:10 EDT 06/15/2023 5:17 EDT Chris More MD CHEMISTRY & BLO OD GAS ORDERABLES [facility] [address] [place] [phone] * EKG 12-LEAD (06/15/2023 1:38 EDT) 06/15/2023 1:38 EDT Narrative [facility] E[facility] - 06/20/2023 9:25 EDT ? [facility] ? Test Date: ?2023-06-15 Pat Name: ? JENNIFER JAMES ? Department: ?? [facility] ? Room: ? M316 Gender: ? Female ? 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 Requested By: ANTONY GONZALEZ Order Number: [id number] ? [place] MCCLENDON: ?? KYLE FAIR MD ? Measurements Intervals ?Slovan ? Rate: ? 88 ? P: ?49 IN: ? 195 ?QRS: ?30 QRSD: ? 85 ? T: ?32 QT: ? 361 ? QTc: ?437 ? Interpretive Statements SINUS RHYTHM POSSIBLE RIGHT VENTRICULAR CONDUCTION DELAY SEPTAL MYOCARDIAL INFARCTION , PROBABLY OLD No previous ECG available for comparison This is a preliminary report. ??Edited by CARA GOODE MD on 06-18-2023 19:48:59 EDT. I have reviewed the tracing and have either agreed or edited the findings in this report. I reviewed the tracing and have either agreed or edited the findings in this report. Electronically Signed On 06-20-2023 09:25:55 EDT by KYLE FAIR MD. Procedure Note Kyle Fair MD - 06/20/2023 [facility] Test Date: 2023-06-15 Pat Name: JENNIFER JAMES Department: [facility] Room: 16 Gender: Female Multi Needle Machine Operator: : 1970 Requested By: ANTONY GONZALEZ Order Number: [id number] Reading MD: KYLE FAIR MD Measurements Intervals [place]ovan Rate: 88 P: 49 IN: 195 QRS: 30 QRSD: 85 T: 32 QT: 361 QTc: 437 Interpretive Statements SINUS RHYTHM POSSIBLE RIGHT VENTRICULAR CONDUCTION DELAY SEPTAL MYOCARDIAL INFARCTION , PROBABLY OLD No previous ECG available for comparison This is a preliminary report. Edited by CARA GOODE MD on 06-18-2023 19:48:59 EDT. I have reviewed the tracing and have either agreed or edited the findingsin this report. I reviewed the tracing and have either agreed or edited the findings inthis report. Electronically Signed On 06-20-2023 09:25:55 EDT by KYLE BRISENO. Link Antony DO CARDIAC ECG ORDERABL ES [facility] EKG * XR CHEST PORTABLE LINE PLACEMENT (06/15/2023 1:15 EDT) Anatomical Region Laterality Modality Chest Computed Radiogr aphy Impressions 06/15/2023 13:05 EDT 1. Endotracheal tube tip terminates at the origin of the proximal right mainstem bronchus, recommend retracting a 3-4 centimeters. There appears to be consolidation or atelectasis of the left lower lobe. 2. Right-sided CVC appropriately positioned, tip at the superior cavoatrial junction. ?? I have personally reviewed the images and the above interpretation and agree with the findings. [id number] Narrative 06/15/2023 13:05 EDT XR CHEST PORTABLE 1 VIEW ??06/15/2023 12:59 AM Clinical History/comments: Code, Central line placed; Comparison: None. Technique: Single portable AP view of the chest. The lung apices are not fully included on the radiograph. Findings: Lines/tubes/devices: Endotracheal tube tip in the proximal right mainstem bronchus, recommend retracting a few centimeters. Partially visualized right CVC with tip terminating by the superior cavoatrial junction. Transesophageal tube traverses the diaphragm and loops with tip terminating in the fundus of the stomach. Lungs: There appears to be consolidation of the left lower lobe, likely sequela of atelectasis. Apices not completely included in [id number]. The pulmonary vasculature is unremarkable. Pleura: Suboptimally evaluated on nonupright radiograph, but no visible abnormality. Cardiac and mediastinal contours: Within normal limits for technique. Soft tissues and extrathoracic findings: No significant abnormalities. Bones: No obvious displaced rib fractures. Hira Franklin MD IMG DIAGNOSTIC IMAGI NG ORDERABLES * PTT (06/15/2023 1:10 EDT) [facility] PTT 27 26 - 37 secs 06/15/2023 1:57 EDT [facility] Blood VENOUS BLOOD / Unknown Venipuncture / Unknown 06/15/2023 1:10 EDT 06/15/2023 1:35 EDT Link Hardy DO HEMATOLOGY & PF4 ORD ERABLES Performing Organization Address City/[facility]/ZIP Co de Phone Number [facility] [address] [place] [address] * PROTIME (06/15/2023 1:10 EDT) [facility] I.N.R. 1.0 0.9 - 1.1 Ratio 06/15/2023 1:57 EDT [facility] Pro Time 11.4 9.7 - 12.8 secs 06/15/2023 1:57 EDT [facility] Blood VENOUS BLOOD / Unknown Venipuncture / Unknown 06/15/2023 1:10 EDT 06/15/2023 1:35 EDT Narrative [facility] - 06/15/2023 1:57 EDT Moderate Intensity Coumadin INR = 2.0-3.0 Adjustments in anticoagulant therapy dose should be based on the INR and NOT on the Protime. Link Hardy DO HEMATOLOGY & PF4 ORD ERABLES Performing Organization Address [facility]/ZIP Co de Phone Number [facility] [address] [place] [phone] * (ABNORMAL) POCT BLOOD GAS, CG8 I-STAT (06/15/2023 1:01 EDT) Only the most recent of2 resultswithin the time period is included. [facility] pH, Arterial, i-STAT 7.27(L) 7.35 - 7.45 06/15/2023 1:06 [facility] PCO2, Arterial, i-STAT 43 35 - 45 mmHg 06/15/2023 1:06 [facility] pO2, Arterial, i-STAT 35(L) 80 - 105 mmHg 06/15/2023 1:06 [facility] TCO2, Arterial, i-STAT 21(L) 22 - 26 mmol/L 06/15/2023 1:06 [facility] O2 Saturation, Arterial, i-STAT 58(L) 95 - 98 % 06/15/2023 1:06 [facility] Sodium, Arterial, i-STAT 128(L) 136 - 145 mmol/L 06/15/2023 1:06 [facility] Potassium, Arterial, i-STAT 4.5 3.5 - 5 mmol/L 06/15/2023 1:06 [facility] Glucose, Arterial, i-STAT 254(H) 70 - 100 mg/dL 06/15/2023 1:06 [facility] Hematocrit, Arterial, i-STAT 34(L) 35 - 44 %PCV 06/15/2023 1:06 [facility] Ionized Calcium, Arterial, i-STAT 1.24 1.12 - 1.32 mmol/L 06/15/2023 1:06 [facility] Base Excess(+) / Deficit(-), Arterial, i-STAT -7(L) -2 - 3 mmol/L 06/15/2023 1:06 [facility] Blood ARTERIAL BLOOD / Unknown 06/15/2023 1:01 EDT 06/15/2023 1:06 [facility] - 06/15/2023 1:06 EDT Test Performed by Respiratory For arterial collection, the Laboratory recommends that the Modified Ashutosh test be performed to determine that collateral circulation is present from the ulnar artery in the event that thrombosis of the radial artery should occur. Performance of the Modified Ashutosh test should be documented in the patients' chart Chris More MD POINT OF CARE T EST ORDERABLES Performing Organization Address City/[facility]/ZIP Co de Phone Number [facility] [address] [place] [address] * TRANSFUSE RED BLOOD CELLS (06/14/2023 22:57 EDT) Blood Terrence Branham MD NURSING TREATMENT - BLOOD ADMINISTRATION * (ABNORMAL) ANAEROBE CULTURE/SMEAR(INC. AEROBES), OTHER (06/14/2023 22:51 EDT) Organism ID Moderate mixed gram positive growth including anaerobes. Bacteroides fragilis group is not present. 06/19/2023 8:08 EDT [facility] Smear Moderate Neutrophils Present(A) 06/19/2023 8:08 EDT [facility] Smear Moderate Mixed gram positive and gram negative organisms(A) 06/19/2023 8:08 EDT [facility] Comment:Results reviewed by supervisory staff. Tissue SOFT TISSUE / Unknown 06/14/2023 22:51 EDT 06/14/2023 23:34 EDT Violeta Bach MD MICROBIOLOGY - GENE RAL ORDERABLES Performing Organization Address [facility] Co de Phone Number [facility] [address] [place] [address] * FUNGUS CULTURE/SMEAR (06/14/2023 22:51 EDT) Organism ID No fungi isolated 07/12/2023 11:15 EDT [facility] Fungal Smear No Fungi Seen 07/12/2023 11:15 EDT [facility] Tissue SOFT TISSUE / Unknown 06/14/2023 22:51 EDT 06/14/2023 23:34 EDT Violeta Bach MD MICROBIOLOGY - GENE RAL ORDERABLES Performing Organization Address City/[facility]/ZIP Co de Phone Number [facility] [address] [place] [address] * TRANSFUSE RED BLOOD CELLS (06/14/2023 22:35 EDT) Blood Titus Singleton MD NURSING TREATMENT - BLOOD ADMINISTRATION * IN AN ELECTIVE ENDOTRACHEAL AIRWAY (06/14/2023 22:03 EDT) Narrative Reese Franco CRNA - 06/14/2023 22:03 EDT Reese Franco CRNA ? 06/14/2023 22:03 Airway Date/Time: 06/14/2023 22:03 Urgency: elective Airway not difficult General Information and Staff Patient location during procedure: OR Performed: anesthesiologist Performed by: Reese Franco CRNA Authorized by: Terrence Branham MD ?? Indications and Patient Condition Indications for airway management: anesthesia Sedation level: GA Preoxygenated: yes Ventilation assessment: 2 - Oral airway inserted Final Airway Details Final airway type: endotracheal airway Successful airway: ETT Successful intubation technique: video laryngoscopy [place] Blade size: #4 ETT size (mm): 7.0 Cormack-Lehane Classification: grade IIa - partial view of glottis Placement verified by: palpation of cuff Measured from: gums ETT to gums (cm): 21 Number of attempts at approach: 1 Terrence Branham MD ANESTHESIA ORDERABLE S * TRANSFUSE RED BLOOD CELLS (06/14/2023 12:38 EDT) Blood Reese Norwood PA-C NURSING TREATMENT - BLOOD ADMINISTRATION * TRANSFUSE RED BLOOD CELLS (06/14/2023 8:03 EDT) Blood Titus Singleton MD NURSING TREATMENT - BLOOD ADMINISTRATION * PATIENT RE-TYPE (06/14/2023 6:35 EDT) ABO O 06/14/2023 7:18 EDT [facility] Rh Factor Positive 06/14/2023 7:18 EDT [facility] Blood VENOUS BLOOD / Unknown Venipuncture / Unknown 06/14/2023 6:35 EDT 06/14/2023 7:00 EDT Chato Boswell MD BLOOD BANK TESTS Performing Organization Address [facility] Co de Phone Number [facility] [address] [place] [address] * (ABNORMAL) HEMOGLOBIN A1C (06/14/2023 4:55 EDT) Hemoglobin A1c 8.2(H) <5.7 % 06/14/2023 11:46 EDT [facility] Comment: Glycemic Status References: Normal: ??<5.7% Pre-Diabetes: ??5.7% - 6.4% Diagnostic of Diabetes: ??> or = 6.5% (if confirmed) Est Avg Glucose 189 mg/dL 11:46 EDT [facility] Comment:The eAG represents t he A1c result expressed as average glucose in mg/dL. Blood VENOUS BLOOD / Unknown Venipuncture / Unknown 06/14/2023 4:55 EDT 06/14/2023 4:59 EDT Ángel Godinez MD CHEMISTRY & BLOOD G ORDERABLES Performing Organization Address [facility] Co de Phone Number [facility] [address], [place] [id number] * CT OUTSIDE IMAGES PELVIS (06/12/2023 16:49 EDT) Narrative 06/13/2023 16:49 EDT This is a non-reportable exam. Provider Unknown IMG OTHER IMAGING OR DERABLES from Last 3 Months Advance Directives For more information, please contact: [phone] * Full Code (Latest Code Status on File) Date Activated Date Inactivated Comments 06/22/2023 14:57 08/22/2023 13:15 Earle was able to demonstrate capacity on 06/22/2023 and verbalized that, given that her overall clinical condition is improving, at this time she would like her code status to be changed to full code. In the event that her overall clinical condition significant deteriorates, she would like her partner Teja and her niece Maricruz to be her decision makers. Question Answer Comments When the patient has NO PULSE: Full Code / CPR Who Made the Decision? Patient * Limitation of Treatment Date Activated Date Inactivated Comments 06/20/2023 14:57 06/22/2023 14:57 Per patient's ni kade Maricruz and boyfriend Teja, she would not want compressions in the event that her heart were to stop beating and she would not want to be ventilated long-term, but is ok for intubation during trips to the OR for debridement and other procedures. Question Answer Comments When the patient has NO PULSE: DNR When the patient HAS A PULSE and is in respiratory distress/failure: Trial Period Trial period of (choose one or both): intubation Who Made the Decision? Surrogate Basis for the Decision: Substituted Judgement Surrogate is: Surrogate is a n interested individual (e.g.; spouse, parent, adult relative, clergy; or other adult personally familiar with patient's goals & values who has exhibited care & concern). NOTE: [place] Statute has no priority of assignment. I confirm Surrogate is NOT: Surrogate is NOT the patient's healthcare provider; or the weekend caregiver, tumbler dyeing machine operator, employee of a residential care facility, or correctional facility where the patient resides-unless related to the patient. I confirm * Full Code Date Activated Date Inactivated Comments 06/13/2023 23:47 06/20/2023 14:57 Question Answer Comments When the patient has NO PULSE: Full Code / CPR Who Made the Decision? 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
--- OUTSIDE RECORDS SUMMARY | 2023-09-11 15:32 | XMS_ITS | Referral Summary ---
Author Organization [facility] Address [address] [place] [address] Care Team Providers Care Biodiesel Division Manager Name Role Phone Unknown, Provider Primary Care Provider Encounters Date Type Department Care Team Description 08/30/2023 Lab Requisition [facility] Pathology & Laboratory Medicine [address] [address] Outr Resulting Lab, Provider 08/30/2023 Lab Requisition [facility] Pathology & Laboratory [facility] [address] [place] [address] Outr Resulting Lab, Provider 08/26/2023 Telephone [facility] Acute Care Surgery [facility] [address] [place] [address] Bekah Christensen, [facility] Hospital Discharge Follow Up 06/13/2023 23:23 EDT - 08/22/2023 11:14 EDT Hospital Encounter [facility] General Surgery Unit [address] [place] [address] Chris More MD Ciesla, David J, MD Tandoh, Margaret A, MD Necrotizing soft tissue infection (Primary Dx); Cardiopulmonary arrest with successful resuscitation (HCC-CMS); Complete heart block (HCC-CMS); Palliative care by specialist [Z51.5]; Type 2 diabetes mellitus without complication, without long-term current use of insulin ([facility]); Insufficiency, respiratory, acute [R06.89]; Electrolyte and fluid disorder [E87.8]; Acute respiratory failure with hypoxia ([facility]); Respiratory insufficiency; Type 2 diabetes mellitus with hyperglycemia, unspecified whether shelter insulin use ([facility]) [E11.65]; Type 2 diabetes mellitus with peripheral neuropathy ([facility]) [E11.42]; Type 2 diabetes with complication ([facility]) [E11.8]; Necrotizing fasciitis ([facility]) [M72.6]; Type 2 diabetes mellitus with hyperglycemia, with long-term current use of insulin ([facility]); Type 2 diabetes mellitus with other skin ulcer, with long-term current use of insulin ([facility]) Discharge Disposition: Home-Health Care [facility] 08/19/2023 Orders Only [facility] ENDOCR[facility] [address] [place] [id number] Carmen Vernon NP Type 2 diabetes mellitus with hyperglycemia, with long-term current use of insulin ([facility]) (Primary Dx) 08/12/2023 Orders Only [facility] [address] [place] [phone] Carmen Vernon NP Type 2 diabetes mellitus with other skin ulcer, with long-term current use of insulin ([facility]) (Primary Dx) 07/31/2023 16:46 EDT - 07/31/2023 18:11 EDT Surgery [facility] OR [address] [place] [address] Violeta Bach MD Split thickness skin graft to perineum [89455 (CPT??)] 07/31/2023 15:09 EDT Anesthesia Event [facility] OR [address] [place] [phone] Rocky Jacobs MD Ng, Erina, MD 07/10/2023 10:39 EDT Anesthesia Event [facility] OR [address] [place] [address] [phone] Gigi Rodriguez MD 07/10/2023 10:36 EDT - 07/10/2023 12:31 EDT Surgery [facility] OR [address] [place] [address] [phone] Efraín Rueda MD WOUND VAC I&D PERINEUM [59718 (CPT??)] 07/04/2023 5:56 EDT Anesthesia Event [facility] ANESTHESIA [address] [place] [phone] Tulio Garrison MD 06/26/2023 20:30 EDT - 06/26/2023 22:25 EDT Surgery [facility] OR [address] [place] [address] Efraín Rueda MD debridement of perianal wound, wound vac placement [79767 (CPT??)] 06/26/2023 21:16 EDT Anesthesia Event [facility] OR [address] [place] [phone] Luisa Humphries DO Millar, Michael J, CRNA 06/19/2023 13:09 EDT Anesthesia Event [facility] OR [address] [place] [address] Tigre Olmos MD PhD Mary Conti AA 06/19/2023 11:35 EDT - 06/19/2023 12:30 EDT Surgery [facility] OR [address] [place] [address] Ramón Youngblood MD Incision & drainage gluteal wound [00556 (CPT??)] 06/17/2023 13:06 EDT - 06/17/2023 14:16 EDT Surgery [facility] OR [address] [place] [address] 18[address] Kyle Mars MD INCISION AND DRAINAGE, ABSCESS, ISCHIORECTAL OR PERIRECTAL [19109 (CPT??)] 06/17/2023 13:54 EDT Anesthesia Event [facility] OR [address] [place] [address] 287[address] Edgar Alvarez MD Quill, Cathryn M, CRNA 06/16/2023 8:04 EDT Anesthesia Event [facility] ANESTHESIA [address] [place] [address] Chato Serrano MD Clark, Sarah G 06/14/2023 21:21 EDT Anesthesia Event [facility] OR [address] [place] [address] Terrence Branham MD Millar, Michael J, CRNA 06/14/2023 19:33 EDT - 06/14/2023 21:43 EDT Surgery [facility] [place] OR [address] [place] [address] Violeta Bach MD NEGATIVE PRESSURE WOUND THERAPY WITH DISPOSIBLE EQUIPMENT [04532 (CPT??)] 06/13/2023 Travel 06/12/2023 - 06/12/2023 23:59 EDT Hospital Encounter [facility] Secondary Reads [place] Discharge Disposition: Home or Self Care from Last 3 Months Allergies Active Allergy Reactions Criticality Noted Date [...] Tablet 08/22/2023 Active Blood-Glucose Meter,Continuous (DEXCOM G7 CITY RECORDER) miscIndications: Type 2 diabetes mellitus with hyperglycemia, with long-term current use of insulin ([facility]) 1 Device by misc (non-drug; combo route) route Once for 1 dose. 1 Each 1 08/22/2023 Active Blood-Glucose Sensor (DEXCOM G7 SENSOR) deviceIndication s:Type 2 diabetes mellitus with other skin ulcer, with long-term current use of insulin ([facility]) 1 Device by misc (non-drug; combo route) route every 10 days. 3 Each 1 08/22/2023 Active acetaminophen (TYLENOL) 500 mg tablet Take 2 Tablets by mouth every 6 hours as needed for Pain. 08/22/2023 Active amLODIPine (NORVASC) 10 mg tablet Take 1 Tablet by mouth daily for 30 days. . 30 Tablet 08/23/2023 4 Active docusate sodium (COLACE) 100 mg capsule [...] insulin pen needles 31G x 3/16 Brand: Lingohub Ultra Fine Mini 4 pen needles to [...] 30 days. 90 Tablet 08/22/2023 4 Active goibfdko-chp-vma n fum-folic ac 7.5 mg iron-400 mcg tablet Take 1 Tablet by mouth daily for 30 days. 30 Tablet 08/23/2023 4 Active cloNIDine (CATAPRES) 0.2 mg/[address] 1 Patch onto the skin once a week. 3 Patch 08/27/2023 Active Blood-Glucose Sensor (DEXCOM G7 SENSOR) deviceIndication s:Type 2 diabetes mellitus with other skin ulcer, with long-term current use of insulin ([facility]) 1 Device by misc (non-drug; combo route) route every 10 days. 3 Each 08/12/2023 4 Discontinued Blood-Glucose Meter,Continuous (DEXCOM G7 CITY RECORDER) miscIndications: Type 2 diabetes mellitus with hyperglycemia, with long-term current use of insulin ([facility]) 1 Device by [facility] (non-drug; combo route) route Once for 1 [...] 30 days. 90 Tablet 08/22/2023 4 Discontinued skokgymi-mnr-xbh n fum-folic ac 7.5 mg iron-400 mcg [...] Diagnosed Date Type 2 diabetes with complication ([facility]) 06/25 Type 2 diabetes mellitus wit h peripheral neuropathy ([facility]) 07/12/2023 Respiratory insufficiency 07/04/2023 Insufficiency, respiratory, acute 06/26/2023 Electrolyte and fluid disorder 06/26/2023 Acute respiratory failure with hypoxia ([facility]) 06/26/2023 Palliative care by specialist 06/20/2023 Complete heart block ([facility]) 06/17/2023 Cardiopulmonary arrest with successful resuscitation ([facility]) 06/15/2023 Type 2 diabetes mellitus 06/15/2023 Necrotizing soft tissue infection 06/14/2023 Necrotizing fasciitis ([facility]) 06/13/2023 Social History Tobacco Use Types Packs/Day Years Used Date Smoking Tobacco: Former Cigarettes 1.5 38.3 1 986 - 06/12/2023 Smokeless Tobacco: Never Tobacco Cessation:Counseling Given: Not Answered [facility] Utilities Answer Date Recorded In the past 12 months has th e [employer], gas, oil, or water [employer] threatened to shut off services in your [...] place to sleep or slept in a mcc (including now)? No 06/19/2023 Housing Stability Vital Sign Answer Osvaldo e Recorded In the last 12 months, was t here a time when you were not able to pay the mortgage or rent on time? Yes 07/10/2023 In the past 12 months, how m any times have you moved where you were living? 0 07/10/2023 At any time in the past 12 m [facility], were you homeless or living in a mcc (including now)? No 07/10/2023 Interpersonal Safety Answer Date Record ed How often does anyone, komal correa family, hit, punch or physically hurt you? 07/10/2023 How often does anyone, yasirkiera madeline family, insult, scream, curse or threaten to hurt you? 07/10/2023 Sex and Gender Information Value Date Recorded Sex Assigned at Not on file Gender Identity Female 06/15/2023 0:35 EDT Sexual Orientation Not on file Last Filed Vital Signs Vital Sign Reading [...] Body Mass Index 31.54 07/31/2023 1029 EDT Functional Status Functional Status Response Date of Assess ment Are you deaf or do you have serious difficulty hearing? No-wears hearing aids 06/30/2023 Are you blind or do you have serious difficulty seeing, even when wearing glasses? No-wears glasses 06/30/2023 Do you have serious difficul ty walking or climbing stairs? (5 years old or older) No 06/30/2023 Do you have difficulty dress ing or bathing? (5 years old or older) No 06/30/2023 Because of a physical, menta l, or emotional condition, do you have difficulty doing errands alone such as visiting a doctor's office or shopping? (15 years old or older) No 06/30/2023 Cognitive Status Response Date of Assessm ent Because of a physical, menta l, or emotional condition, do you have serious difficulty concentrating, remembering, or making decisions? (5 years old or older) varying orientation while hospitalized 06/30/2023 Plan of Treatment Not on file Medical Devices Implanted Type Area Truck Despatcher Device Identifier Shelf Expiration Date Model / Serial / Lot Sealant 4ml Artiss Forzen Diluted Tisseel - [id number] Implanted:Qty : 1 on 07/31/2023 by Violeta Bach MD at [facility] Right: Buttocks WHITAKER/DIALYSIS DIV SARAH. 04/24/2024 [id number] / [id number] / [id number] Procedures Procedure Name Priority Date/Time Associated Diagnosis [...] C Antibody Negative Negative 09/02/2023 9:29 EDT [facility] Blood VENOUS BLOOD / Unknown 08/30/2023 10:00 EDT 08/30/2023 21:41 EDT Provider Outr Resulting Lab CHEMISTRY & BLOOD GAS ORDERABLES [facility] [address] [place] [address] * HIV 1/2 ANTIGEN AND ANTIBODY, 4TH GENERATION (08/30/2023 10:00 EDT) HIV 1 and 2 Antibody/p24 Antigen, 4th Generation Negative Negative 09/02/2023 9:27 EDT [facility] Comment:If acute HIV-1 infec tion is suspected in a high risk patient, submit plasma specimen for HIV-1 RNA quantitation test. Blood VENOUS BLOOD / Unknown 08/30/2023 10:00 EDT 08/30/2023 21:44 EDT Narrative [facility] - 09/02/2023 9:27 EDT Fourth Generation assay performed on the Siemens Centaur XPT. Provider Outr Resulting Lab IMMUNOLOGY A ND SEROLOGY ORDERABLES Performing Organization Address City/[facility] Co de Phone Number [facility] [address] [place] [address] * ECG REPORT - SCANNED (08/27/2023 9:57 EDT) 08/27/2023 9:57 EDT Scan 2 Orthopedic Rn PROCEDURE/MINOR VI GICAL ORDERABLES * ECG REPORT - SCANNED (08/26/2023 11:11 EDT) 08/26/2023 11:1 1 EDT Scan 2 Orthopedic Rn PROCEDURE/MINOR VI GICAL ORDERABLES * (ABNORMAL) POCT GLUCOSE, INTERFACED (08/22/2023 7:34 EDT) Only the most recent of315 resultswithin the time period is included. Glucose, POC 148(H) 70 - 100 mg/dL 08/22/2023 7:35 EDT [facility] HN LAB POC COMMENT (GLUCOSE) Test Performed by Nursing Services 08/22/2023 7:35 EDT [facility] Blood CAPILLARY BLOOD / Unknown 08/22/2023 7:34 EDT 08/22/2023 7:35 EDT Aura Howell NP POINT OF CARE TEST O RDERABLES Performing Organization Address City/[facility]/ZIP Co de Phone Number [facility] [address], [place] [id number] * (ABNORMAL) COMPLETE BLOOD COUNT AND DIFFERENTIAL (08/22/2023 5:43 EDT) Only the most recent of44 resultswithin the time period is included. WBC 9.52 4.00 - 12.40 K/cmm 08/22/2023 6:37 [facility] RBC 3.19(L) 3.86 - 5.04 M/cmm 08/22/2023 6:37 [facility] Hemoglobin 8.8(L) 11.6 - 15.2 g/dL 08/22/2023 6:37 [facility] HCT 26.2(L) 34.9 - 44.4 % 08/22/2023 6:37 [facility] MCV 82 81 - 98 fL 08/22/2023 6:37 [facility] MCH 27.6 26.7 - 33.3 pg 08/22/2023 6:37 [facility] MCHC 33.6 32.1 - 35.9 g/dL 08/22/2023 6:37 [facility] RDW-CV 14.0 <14.7 % 08/22/2023 6:37 [facility] RDW-SD 41.9 <50.4 fl 08/22/2023 6:37 [facility] PLT 317 141 - 377 K/cmm 08/22/2023 6:37 [facility] MPV 10.7 9.5 - 12.7 fL 08/22/2023 6:37 [facility] % Neutrophils 68.8 % 08/22/2023 6:37 [facility] % Lymphocytes 19.1 % 08/22/2023 6:37 [facility] % Monocytes 8.2 % 08/22/2023 6:37 [facility] % Eosinophils 2.3 % 08/22/2023 6:37 [facility] % Basophils 0.4 % 08/22/2023 6:37 [facility] % Immature Grans 1.2 % 08/22/19 6:37 [facility] Absolute Neutrophils 6.55 2.20 - 8.85 K/cmm 08/22/2023 6:37 [facility] Absolute Lymphocytes 1.82 1.09 - 3.30 K/cmm 08/22/2023 6:37 [facility] Absolute Monocytes 0.78 0.10 - 0.80 K/cmm 08/22/2023 6:37 [facility] Absolute Eosinophils 0.22 0.03 - 0.61 K/cmm 08/22/2023 6:37 [facility] ABS Basophils 0.04 0.01 - 0.11 K/cmm 08/22/2023 6:37 [facility] Absolute Immature Grans 0.11(H) 0.00 - 0.06 K/cmm 08/22/2023 6:37 [facility] Type of Differential: Auto 08/22/2023 6:37 [facility] Blood VENOUS BLOOD / Unknown Venipuncture / Unknown 08/22/2023 5:43 EDT 08/22/2023 6:29 EDT Joan Menon MD PACKAGES & DNA PROBE ORDERABLES [facility] [address] [place] [address] * (ABNORMAL) BASIC METABOLIC PANEL (BMP) (08/22/2023 5:43 EDT) Only the most recent of55 resultswithin the time period is included. Sodium 134(L) 136 - 145 mmol/L 08/22/2023 7:02 [facility] Potassium 4.4 3.5 - 5.0 mmol/L 08/22/2023 7:02 [facility] Chloride 99 96 - 110 mmol/L 08/22/2023 7:02 [facility] CO2 Total 22 22 - 32 mmol/L 08/22/2023 7:02 [facility] Anion Gap 13 5 - 14 mmol/L 08/22/2023 7:02 [facility] Glucose 164(H) 70 - 99 mg/dl 08/22/2023 7:02 [facility] Calcium 9.9 8.5 - 10.5 mg/dL 08/22/2023 7:02 EDT [facility] BUN 30(H) 10 - 26 mg/dL 08/22/2023 7:02 EDT [facility] Creatinine 0.74 0.52 - 1.04 mg/dL 08/22/2023 7:02 EDT [facility] eGFR 97 >60 mL/min/1.73 m2 08/22/2023 7:02 EDT [facility] Blood VENOUS BLOOD / Unknown Venipuncture / Unknown 08/22/2023 5:43 EDT 08/22/2023 6:30 EDT Joan Menon MD CHEMISTRY & BLOOD GA S ORDERABLES [facility] [address], [place] [id number] * ECG REPORT - SCANNED (08/08/2023 11:03 EDT) 08/08/2023 11:0 3 EDT Scan 2 Orthopedic Rn PROCEDURE/MINOR VI GICAL ORDERABLES * EKG 12-LEAD (2023 16:05 EDT) 2023 16:0 5 EDT Narrative [facility] - 08/08/2023 10:55 EDT ? [facility] ? Test Date: ?2023 Pat Name: ? JENNIFERSINA JAMES ? Department: ?? Reed 6 ? Room: ? B694 Gender: ? Female ? Sales And Leasing Agent: ?? [id number] : ?1970 ? Requested By: LYNETTE MANDEL Order Number: [id number] ? Reading MD: ?? ENMANUEL APPIAH MD ? Measurements Intervals ?Abell ? Rate: ? 85 ? P: ?48 OH: ? 167 ?QRS: ?32 QRSD: ? 83 [...] Note Enmanuel Appiah MD - 08/08/2023 [facility] Test Date: 2023 Pat Name: JENNIFER JAMES Department: Derek Room: [facility] Gender: Female Sales And Leasing Agent: [id number] : 1970 Requested By: LYNETTE MANDEL Order Number: [id number] Reading MD: ENMANUEL APPIAH MD Measurements Intervals Abell Rate: 85 P: 48 OH: 167 QRS: 32 QRSD: 83 T: 71 [...] Logan Doyle DO CARDIAC ECG ORDERABL ES [facility] * (ABNORMAL) VAGINAL CTGC AND VAGINITIS/VAGINOSIS MOLECULAR DETECTION (08/01/2023 16:31 EDT) Ana M glabrata Negative Negative 2023 13:31 EDT [facility] Trichomonas Vaginalis Negative Negative 2023 13:31 EDT [facility] BV (Bacterial vaginosis) Negative Negative 2023 13:31 EDT [facility] Neisseria gonorrhoeae Result Negative Negative 2023 13:31 EDT [facility] Chlamydia trachomatis Result Negative Negative 2023 13:31 EDT [facility] Ana M Species Positive(A) Negative 08/02/19 13:31 EDT [facility] Swab VAGINAL STRUCTURE / Unknown Swab / Unknown 08/01/2023 16:31 EDT 08/01/2023 16:38 EDT Citlalli Norwood PA-C MICROBIOLOGY - GE NERAL ORDERABLES [facility] [address], [place] [id number] * ANESTHESIA PERIPHERAL IV PLACEMENT (07/31/2023 15:42 EDT) Narrative Krystin Tan CRNA - 07/31/2023 15:42 EDT Krystin Tan CRNA ? 07/31/2023 15:43 Peripheral IV Placement Date/Time: 07/31/2023 15:42 Inserted by: Krystin Tan CRNA Placement Needle size: 18 G Laterality: left Location: wrist Local anesthetic: none Site prep: alcohol Technique: anatomical landmarks Attempts: 1 Koby Lora MD ANESTHESIA ORDERA BLES * OH AN ELECTIVE ENDOTRACHEAL AIRWAY (07/31/2023 15:12 EDT) Narrative Krystin Tan CRNA - 07/31/2023 15:12 EDT Krystin Tan CRNA ? 07/31/2023 15:34 Airway Date/Time: 07/31/2023 15:12 Urgency: elective Airway not difficult General Information and Staff Patient location during procedure: OR Resident/SENIOR LEAD JAVA DEVELOPER: Krystin Tan CRNA Performed: resident/SENIOR LEAD JAVA DEVELOPER/AA Performed by: Krystin Tan CRNA Authorized by: [...] EDT) 07/25/2023 13:5 5 EDT Scan 2 Orthopedic Rn PROCEDURE/MINOR VI GICAL ORDERABLES * (ABNORMAL) VITAMIN D (25,OH) (07/25/2023 8:58 EDT) 25OH Vitamin D Tot 22(L) 30 - 100 ng/mL 07/25/2023 11:37 EDT [facility] Comment: Vitamin D 25,OH Interpretive Ranges: Deficiency: ??<10.0 ng/mL Insufficiency: ??10.0 - 30.0 ng/mL Sufficiency: ??30.0 - 100.0 ng/mL Toxicity: ??>100.0 ng/mL Blood VENOUS BLOOD / Unknown Venipuncture / Unknown 07/25/2023 8:58 EDT 07/25/2023 9:36 EDT Darlin Aviles MD CHEMISTRY & BLOOD GA S ORDERABLES [facility] [address] [place] [address] * TROPONIN I (07/22/2023 16:21 EDT) Only the most recent of9 resultswithin the time period is included. Troponin I (ng/mL) <0.034 <0.034 ng/mL 07/22/2023 17:12 EDT [facility] Comment:Turbid sample identi fied, interpret with caution as turbidity may affect result. Blood VENOUS BLOOD / Unknown Venipuncture / Unknown 07/22/2023 16:21 EDT 07/22/2023 16:24 EDT Narrative [facility] - 07/22/2023 17:12 EDT The results of this assay can be falsely lowered due to the consumption of Biotin. Mahendra Veras MD CHEMISTRY & BLOOD G ORDERABLES Performing Organization Address City/State/[facility] Co de Phone Number [facility] [address] [place] [address] * EKG 12-LEAD (07/22/2023 16:16 EDT) 07/22/2023 16:1 6 EDT Narrative [facility] - 07/25/2023 13:47 EDT ? [facility] ? Test Date: ?2023-07-22 Pat Name: ? JENNIFER NALLELY ? Department: ?? Derek Rivera ? Room: ? B694 Gender: ? Female ? Sales And Leasing Agent: ?? [id number] : ?1970 ? Requested By: UNIQUE RODRIGES Order Number: [id number] ? Alicia MCCLENDON: ?? KOURTNEY FATIMA MD ? Measurements Intervals ?Abell ? Rate: ? 86 ? P: ?46 OH: ? 180 ?QRS: ?34 QRSD: ? 77 [...] Note Kourtney Fatima MD - 07/25/2023 [facility] Test Date: 2023-07-22 Pat Name: JENNIFER JAMES Department: Derek 6 Room: B694 Gender: Female Sales And Leasing Agent: [id number] : 1970 Requested By: UNIQUE RODRIGES Order Number: [id number] Reading MD: KOURTNEY FATIMA MD Measurements Intervals Abell Rate: 86 P: 46 OH: 180 QRS: 34 QRSD: 77 T: 91 QT: 366 QTc: 439 Interpretive Statements SINUS RHYTHM Nonspecific T wave abnormality Compared to ECG 07/03/2023 03:57:59 Ectopic beats no longer present I reviewed the tracing and have either agreed or edited the findings inthis report. Electronically Signed On 07-25-2023 13:47:41 EDT by KOURTNEY AL. Mahendra Veras MD CARDIAC ECG ORDERAB LES Performing Organization Address City/[facility]/ZIP Co de Phone Number [facility] * (ABNORMAL) PHOSPHORUS (07/22/2023 6:51 EDT) Only the most recent of resultswithin the time period is included. Phosphorus 6.5(H) 2.5 - 4.5 mg/dL 07/22/2023 16:32 EDT [facility] Blood VENOUS BLOOD / Unknown Venipuncture / Unknown 07/22/2023 6:51 EDT 07/22/2023 7:06 EDT Mahendra Veras MD CHEMISTRY & BLOOD G ORDERABLES Performing Organization Address City/[facility]/ZIP Co de Phone Number [facility] [address] [place] [address] * MAGNESIUM (07/22/2023 6:51 EDT) Only the most recent of25 resultswithin the time period is included. Magnesium 1.7 1.7 - 2.8 mg/dL 07/22/2023 16:32 EDT [facility] Blood VENOUS BLOOD / Unknown Venipuncture / Unknown 07/22/2023 6:51 EDT 07/22/2023 7:06 EDT Mahendra Veras MD CHEMISTRY & BLOOD G ORDERABLES [facility] [address] [place] [address] * (ABNORMAL) DIFFERENTIAL, AUTOMATED MANUAL (07/11/2023 6:36 EDT) Only the most recent of21 resultswithin the time period is included. % Neutrophils 56.5 Not Indicated % 07/11/2023 8:03 [facility] % Lymphocytes 20.0 Not Indicated % 07/11/2023 8:03 [facility] % Monocytes 15.6 Not Indicated % 07/11/2023 8:03 [facility] % Eosinophils 0.9 Not Indicated % 07/11/2023 8:03 [facility] % Basophils 0.9 Not Indicated % 07/11/2023 8:03 [facility] % Metamyelocytes 5.2 Not Indicated % 07/11/2023 8:03 [facility] % Myelocytes 0.9 Not Indicated % 07/11/2023 8:03 [facility] Basophilic Stippling Present in <2% of RBCs 07/11/2023 8:03 [facility] Absolute Neutrophils 3.93 2.20 - 8.85 K/cmm 07/11/2023 8:03 [facility] Absolute Lymphocytes 1.39 1.09 - 3.30 K/cmm 07/11/2023 8:03 [facility] Absolute Monocytes 1.09(H) 0.10 - 0.80 K/cmm 07/11/2023 8:03 [facility] Absolute Eosinophils 0.06 0.03 - 0.61 K/cmm 07/11/2023 8:03 [facility] ABS Basophils 0.06 0.01 - 0.11 K/cmm 07/11/2023 8:03 [facility] Absolute Metamyelocytes 0.36(H) <=0.00 K/cmm 07/11/2023 8:03 EDT [facility] Absolute Myelocytes 0.06(H) <=0.00 K/cmm 07/11/2023 8:03 EDT [facility] Type of Differential: Manual 07/11/2023 8:03 EDT [facility] Blood VENOUS BLOOD / Unknown Venipuncture / Unknown 07/11/2023 6:36 EDT 07/11/2023 7:10 EDT Joan Menon MD HEMATOLOGY & PF4 ORD ERABLES Performing Organization Address [facility] de Phone Number [facility] [address] [place] [address] * OSMOLALITY (07/11/2023 6:36 EDT) Osmolality, Serum 276 275 - 295 mOsm/kg 07/11/2023 8:16 EDT [facility] Blood VENOUS BLOOD / Unknown Venipuncture / Unknown 07/11/2023 6:36 EDT 07/11/2023 7:11 EDT Citlalli Buenrostro MD CHEMISTRY & BLOOD GA S ORDERABLES Performing Organization Address [facility] Phone Number [facility] [address] [place] [address] * UREA NITROGEN, URINE RANDOM (07/11/2023 4:58 EDT) Urea Nitrogen, Urine 576 See Note mg/dL 07/11/2023 5:34 EDT [facility] Comment: NOTE: Reference range has not been established for urea nitrogen concentration in random urine specimens. Urine URINE / Unknown Urine Collect / Unknown 07/11/2023 4:58 EDT 07/11/2023 5:09 EDT Citlalli Buenrostro MD URINALYSIS ORDERABLE S [facility] [address], [place] [address] * CREATININE, URINE RANDOM (07/11/2023 4:58 EDT) Creatinine, Urine 58.3 See Note mg/dL 07/11/2023 5:34 EDT [facility] Comment: NOTE: Reference range has not been established for creatinine concentration in random urine specimens. Urine URINE / Unknown Urine Collect / Unknown 07/11/2023 4:58 EDT 07/11/2023 5:09 EDT Citlalli Buenrostro MD URINALYSIS ORDERABLE S Performing Organization Address [facility] Co de Phone Number [facility] [address] [place] [address] * OSMOLALITY, URINE (07/11/2023 4:58 EDT) Osmolality, Urine 336 150 - 1,150 mOsm/kg 07/11/2023 5:36 EDT [facility] Urine URINE / Unknown Urine Collect / Unknown 07/11/2023 4:58 EDT 07/11/2023 5:09 EDT Citlalli Buenrostro MD URINALYSIS ORDERABLE S Performing Organization Address [facility] Co de Phone Number [facility] [address] [place] [id number] * OH AN ELECTIVE ENDOTRACHEAL AIRWAY (07/10/2023 10:51 EDT) Narrative Jeovanny Gómez MD - 07/10/2023 10:51 EDT Jeovanny Gómez MD ? 07/10/2023 11:19 Airway Date/Time: 07/10/2023 10:51 Urgency: elective General Information and Staff Patient location during procedure: [place] Anesthesiologist: Gigi Rodriguez MD Resident/SENIOR LEAD JAVA DEVELOPER: Jeovanny Gómez MD Performed: resident/SENIOR LEAD JAVA DEVELOPER/AA Performed by: Jeovanny Gómez MD Authorized by: [...] 136 - 145 mmol/L 07/09/2023 0:30 EDT [facility] Blood VENOUS BLOOD / Unknown Venipuncture / Unknown 07/08/2023 23:31 EDT 07/09/2023 0:03 EDT Anastasiya Azar MD CHEMISTRY & BLOOD G ORDERABLES [facility] [address] [place] [address] * ECG REPORT - SCANNED (07/05/2023 11:36 EDT) 07/05/2023 11:3 6 EDT Scan 2 Orthopedic Rn PROCEDURE/MINOR VI GICAL ORDERABLES * TYPE AND SCREEN (07/05/2023 9:17 EDT) Only the most recent of3 resultswithin the time period is included. ABO O 07/05/2023 10:31 EDT [facility] Rh Factor Positive 07/05/2023 10:31 EDT [facility] Antibody Screen Negative 07/05/2023 10:31 EDT [facility] Specimen Expires: 07/08/2023 @ 23:59 07/05/2023 10:31 EDT [facility] Blood VENOUS BLOOD / Unknown Venipuncture / Unknown 07/05/2023 9:17 EDT 07/05/2023 9:32 EDT Citlalli Buenrostro MD BLOOD BANK TESTS Performing Organization Address City/[facility]/ZIP Co de Phone Number [facility] [address] [facility] [place] [address] * PREPARE RED BLOOD CELLS (07/05/2023 8:17 EDT) Only the most recent of13 resultswithin the time period is included. Product Code F7353M81 [facility] Donor Number [id number] U [facility] Unit ABO O [facility] Unit Rh POS [facility] Unit Status TR^Transfuse [facility] Product Expiration Date [id number] [facility] Unit Blood Type Code 5100 [facility] Volume 330 [facility] Coding System [id number] [facility] Blood 07/05/2023 8:17 EDT Citlalli Buenrostro MD BLOOD BANK ORDERABLE S [facility] [address] [facility] [place] [address] * (ABNORMAL) COMPLETE BLOOD COUNT (07/05/2023 7:44 EDT) Only the most recent of5 resultswithin the time period is included. WBC 8.56 4.00 - 12.40 K/cmm 07/05/2023 8:05 EDT [facility] RBC 2.29(L) 3.86 - 5.04 M/cmm 07/05/2023 8:05 [facility] Hemoglobin 6.7(LL) 11.6 - 15.2 g/dL 07/05/2023 8:05 [facility] HCT 20.1(LL) 34.9 - 44.4 % 07/05/2023 8:05 [facility] MCV 88 81 - 98 fL 07/05/2023 8:05 [facility] MCH 29.3 26.7 - 33.3 pg 07/05/2023 8:05 [facility] MCHC 33.3 32.1 - 35.9 g/dL 07/05/2023 8:05 [facility] RDW-CV 14.8(H) <14.7 % 07/05/2023 8:05 [facility] RDW-SD 48.2 <50.4 fl 07/05/2023 8:05 [facility] PLT 538(H) 141 - 377 K/cmm 07/05/2023 8:05 [facility] MPV 9.2(L) 9.5 - 12.7 fL 07/05/2023 8:05 [facility] Blood VENOUS BLOOD / Unknown Venipuncture / Unknown 07/05/2023 7:44 EDT 07/05/2023 7:49 EDT Citlalli Buenrostro MD HEMATOLOGY & PF4 ORD ERABLES [facility] [address] [place] [address] * (ABNORMAL) ALBUMIN (07/05/2023 6:24 EDT) Albumin 2.5(L) 3.4 - 4.9 g/dL 07/05/2023 10:39 EDT [facility] Blood VENOUS BLOOD / Unknown Venipuncture / Unknown 07/05/2023 6:24 EDT 07/05/2023 6:50 EDT Darlin Aviles MD CHEMISTRY & BLOOD GA S ORDERABLES Performing Organization Address City/[facility]/ZIP Co de Phone Number [facility] [address] [place] [address] * ECG REPORT - SCANNED (07/04/2023 13:42 EDT) 07/04/2023 13:4 2 EDT Scan 2 Orthopedic Rn PROCEDURE/MINOR VI GICAL ORDERABLES * (ABNORMAL) BACTERIAL CULTURE/SMEAR, RESPIRATORY (07/04/2023 8:03 EDT) Organism ID Few mixed gram positive and gram negative organisms. No Staphylococcus aureus or Pseudomonas species isolated.(A) 07/06/2023 8:16 EDT [facility] Smear Few Neutrophils Present(A) 07/06/2023 8:16 EDT [facility] Smear No bacteria seen(A) 07/06/2023 8:16 EDT [facility] Sputum LEFT LUNG STRUCTURE / Unknown 07/04/2023 8:03 EDT 07/04/2023 8:41 EDT Tulio Garrison MD MICROBIOLOGY - GENER AL ORDERABLES Performing Organization Address [facility]/ZIP Co de Phone Number [facility] [address], [place] [id number] * XR CHEST PORTABLE 1 VIEW (07/04/2023 [...] above interpretation and agree with the findings. [id number] Narrative 07/04/2023 9:31 EDT XR CHEST PORTABLE [...] on comparison cross-sectional imaging. Resulting Agency Comment [id number] Procedure Note Luis Nagel MD - 07/04/2023 [...] the above interpretation andagree with the findings. [id number] Tulio Garrison MD IMG DIAGNOSTIC IMAGI NG ORDERABLES * OH AN EMERGENT ENDOTRACHEAL AIRWAY, OH ANESTHESIA NON-TIMED PLACEHOLDER (07/04/2023 5:20 EDT) Narrative Tulio Garrison MD - 07/04/2023 5:20 EDT Tulio Garrison MD ? 07/04/2023 ??5:59 Airway Date/Time: 07/04/2023 5:20 Urgency: emergent Airway not difficult General Information and Staff Anesthesiologist: Rocky Jacobs MD Resident/SENIOR LEAD JAVA DEVELOPER: Tulio Garrison MD Performed: resident/SENIOR LEAD JAVA DEVELOPER/AA Performed by: Tulio Garrison MD Authorized by: Tulio Garrison MD ?? Consent for Airway (if performed for an anesthetic, see related documentation for consents) Patient identity confirmed: verbally with patient Consent: Verbal consent obtained. Consent given by: patient Indications and Patient Condition Preoxygenated: yes Final Airway Details Final airway type: endotracheal airway Successful airway: ETT Cuffed: yes Successful intubation technique: video laryngoscopy Prosper Facilitating devices/methods: intubating stylet and cricoid pressure Endotracheal tube insertion site: oral Blade: Storz CMAC D-Blade Blade size: #3 ETT size [...] above interpretation and agree with the findings. [id number] Narrative 07/04/2023 9:11 EDT XR CHEST PORTABLE [...] aside from degenerative changes Resulting Agency Comment [id number] Procedure Note Luis Nagel MD - 07/04/2023 [...] the above interpretation andagree with the findings. [id number] Tulio Garrison MD IM DIAGNOSTIC IMAGI NG ORDERABLES * XR CHEST [...] above interpretation and agree with the findings. [id number] Narrative 07/04/2023 9:10 EDT XR CHEST PORTABLE [...] in the right shoulder. Resulting Agency Comment [id number] Procedure Note Luis Nagel MD - 07/04/2023 [...] the above interpretation andagree with the findings. [id number] Tiara Keller MD IMG DIAGNOSTIC IM AGING [...] sternal fracture. Mild coronary artery atherosclerotic calcification. [id number] Narrative 07/03/2023 16:[address] CHEST W [...] body of the sternum. Resulting Agency Comment [id number] Procedure Note Redd Washington MD - 07/03/2023 [...] sternal fracture. Mild coronary artery atherosclerotic calcification. [id number] Citlalli Porter MCCLENDON IMG CT ORDERABLES * XR CHEST PORTABLE 1 [...] above interpretation and agree with the findings. [id number] Narrative 07/03/2023 10:00 EDT XR CHEST PORTABLE [...] Right shoulder calcific tendinosis. Resulting Agency Comment [id number] Procedure Note Redd Washington MD - 07/03/2023 [...] the above interpretation andagree with the findings. [id number] Citlalli Buenrostro MD IMG DIAGNOSTIC IMAGI NG ORDERABLES * HN LAB CBC SMEAR REVIEW (07/03/2023 6:29 EDT) Differential Comment Slide was examined by a technologist to verify the WBC and/or platelet count. 07/03/2023 7:39 EDT [facility] Blood VENOUS BLOOD / Unknown Venipuncture / Unknown 07/03/2023 6:29 EDT 07/03/2023 6:40 EDT Tonia Hardy HEMATOLOGY & PF4 ORD ERABLES [facility] [address] [place] [address] * EKG 12-LEAD (07/03/2023 3:57 EDT) 07/03/2023 3:57 EDT Narrative [facility] - 07/04/2023 13:31 EDT ? [facility] ? Test Date: ?2023-07-03 Pat Name: ? JENNIFER JAMES ? Department: ?? Reed [address] ? Room: ? B683 Gender: ? Female ? Sales And Leasing Agent: ?? [id number] : ?1970 ? Requested By: ALISHAFRANCISCO JAVIER TALBERTTANIA Order Number: [id number] ? Reading MD: ?? LAST STAHL MD ? Measurements Intervals ?Abell ? Rate: ? 89 ? P: ?35 OH: ? 157 ?QRS: ?54 QRSD: ? 83 [...] Last Stahl MD PhD - 07/04/2023 [facility] Test Date: 2023-07-03 Pat Name: JENNIFER JAMES Department: [place] [address] Room: [facility] Gender: Female Sales And Leasing Agent: [id number] : 1970 Requested By: UNIQUE RODRIGES Order Number: [id number] Reading MD: LAST IGLESIAS Measurements Intervals Abell Rate: 89 P: 35 OH: 157 QRS: 54 QRSD: 83 T: 101 [...] Mahendra Veras MD CARDIAC ECG ORDERAB LES [facility] * ECG REPORT - SCANNED (07/02/2023 10:05 EDT) 07/02/2023 10:0 5 EDT Scan 2 Orthopedic Rn PROCEDURE/MINOR VI GICAL ORDERABLES * ECG REPORT - SCANNED (07/01/2023 13:46 EDT) 07/01/2023 13:4 6 EDT Scan 2 Orthopedic Rn PROCEDURE/MINOR VI GICAL ORDERABLES * XR CHEST [...] pna; Comparison: Chest x-ray 06/30/2023, 06/26/2023, CT chest/04/2023. Technique: Frontal and lateral views of the [...] above interpretation andagree with the findings. [id number] Anastasiya Azar MD IMG DIAGNOSTIC IMAG ING ORDERABLES * ECG REPORT - SCANNED (07/01/2023 6:53 EDT) 07/01/2023 6:53 EDT Scan 2 Orthopedic Rn PROCEDURE/MINOR VI GICAL ORDERABLES * XR CHEST PORTABLE 1 VIEW (06/30/2023 13:33 EDT) Anatomical Region Laterality Modality Computed Radiogr aphy 06/30/2023 13:4 1 EDT Impressions 06/30/2023 13:41 EDT Left lower lobe opacification with left pleural effusion. The findings could reflect either effusion with passive atelectasis or left lower lobe pneumonia. [id number] Narrative 06/30/2023 13:41 EDT XR CHEST PORTABLE [...] findings: ??Normal. Bones: Normal. Resulting Agency Comment [id number] Procedure Note Redd Washington MD - 06/30/2023 [...] with passive atelectasis or left lower lobepneumonia. [id number] Violeta Bach MD IMG DIAGNOSTIC IMAG ING ORDERABLES * EKG 12-LEAD (06/28/2023 2:12 EDT) 06/28/2023 2:12 EDT Narrative [facility] - 07/01/2023 13:38 EDT ? [facility] ? Test Date: ?2023-06-28 Pat Name: ? JENNIFER JAMES ? Department: ?? Derek Rivera ? Room: ? B620 Gender: ? Female ? Sales And Leasing Agent: ?? [id number] : ?1970 ? Requested By: MARAH WHYTE Order Number: [id number] ? Reading : ?? CHIDI BRASHER MD ? Measurements Intervals ?Abell ? Rate: ? 76 ? P: ?34 OH: ? 156 ?QRS: ?40 QRSD: ? 85 ? T: ?90 QT: ? 392 ? QTc: ?442 ? Interpretive Statements SINUS RHYTHM POSSIBLE RIGHT VENTRICULAR CONDUCTION DELAY I reviewed the tracing and have either agreed or edited the findings in this report. Electronically Signed On 07-01-2023 13:38:31 EDT by CHIDI BRASHER MD. Procedure Note Chidi Brasher MD - 07/01/2023 [facility] Test Date: 2023-06-28 Pat Name: JENNIFER JAMES Department: Derek Rivera Room: B620 Gender: Female Sales And Leasing Agent: [id number] : 1970 Requested By: MARAH WHYTE Order Number: [id number] Reading MD: CHIDI BRASHER MD Measurements Intervals Abell Rate: 76 P: 34 OH: 156 QRS: 40 QRSD: 85 T: 90 QT: 392 QTc: 442 Interpretive Statements SINUS RHYTHM POSSIBLE RIGHT VENTRICULAR CONDUCTION DELAY I reviewed the tracing and have either agreed or edited the findings inthis report. Electronically Signed On 07-01-2023 13:38:31 EDT by CHIDI JURADO MD. Nata Nolasco MD CARDIAC ECG ORDERABL ES [facility] * ECG REPORT - SCANNED (06/27/2023 16:14 EDT) 06/27/2023 16:1 4 EDT Scan 2 Orthopedic Rn PROCEDURE/MINOR VI GICAL ORDERABLES * OH AN ELECTIVE ENDOTRACHEAL AIRWAY (06/26/2023 21:30 EDT) Narrative Mahendra Manning - 06/26/2023 21:30 EDT Mahendra Manning ? 06/26/2023 21:44 Airway Date/Time: 06/26/2023 21:30 Urgency: elective Airway not difficult General Information and Staff Patient location during procedure: OR Anesthesiologist: Luisa Humphries DO Resident/SENIOR LEAD JAVA DEVELOPER: Mahendra Manning Performed: resident/SENIOR LEAD JAVA DEVELOPER/AA Performed by: Mahendra Manning Authorized by: Luisa [...] aureus detected by PCR 06/26/2023 13:54 EDT [facility] Swab BOTH ANTERIOR NARES / Unknown Swab / Unknown 06/26/2023 8:08 EDT 06/26/2023 8:37 EDT Hira Franklin MD MICROBIOLOGY - GENER AL ORDERABLES [facility] [address] [place] [address] * XR CHEST PORTABLE 1 VIEW (06/26/2023 [...] above interpretation and agree with the findings. [id number] Narrative 06/26/2023 8:28 EDT XR CHEST PORTABLE [...] of the right shoulder. Resulting Agency Comment [id number] Procedure Note Luis Nagel MD - 06/26/2023 [...] the above interpretation andagree with the findings. [id number] Tonia Hardy [facility] IMAGI NG ORDERABLES * POCT BLOOD GAS, EG6 I-STAT (06/26/2023 0:37 EDT) Only the most recent of12 resultswithin the time period is included. pH, Arterial, i-STAT 7.43 7.35 - 7.45 06/26/2023 0:43 EDT [facility] PCO2, Arterial, i-STAT 38 35 - 45 mmHg 06/26/2023 0:43 EDT [facility] pO2, Arterial, i-STAT 89 80 - 105 mmHg 06/26/2023 0:43 EDT [facility] TCO2, Arterial, i-STAT 26 22 - 26 mmol/L 06/26/2023 0:43 EDT [facility] O2 Saturation, Arterial, i-STAT 97 95 - 98 % 06/26/2023 0:43 EDT [facility] Base Excess(+) / Deficit(-), Arterial, i-STAT 1 -2 - 3 mmol/L 06/26/2023 0:43 EDT [facility] Blood ARTERIAL BLOOD / Unknown 06/26/2023 0:37 EDT 06/26/2023 0:43 EDT Narrative [facility] - 06/26/2023 0:43 EDT Test [...] MD PhD POINT OF CARE TEST ORDERABLES Performing Organization Address City/State/[facility] Co de Phone Number [facility] [address] [place] [address] * EKG 12-LEAD (06/25/2023 23:32 EDT) 06/25/2023 23:3 2 EDT Narrative [facility] - 06/28/2023 17:45 EDT ? [facility] ? Test Date: ?2023-06-25 Pat Name: ? JENNIFER JAMES ? Department: ?? Vanessa 3 ? Room: ? B690 Gender: ? Female ? Sales And Leasing Agent: ?? : ?1970 ? Requested By: BARBY MONTANEZ Order Number: [id number] ? Reading : ?? LAST STAHL MD ? Measurements Intervals ?Abell ? Rate: ? 117 ?P: ?0 OH: ? 0 ?QRS: ?72 QRSD: ? 89 [...] Last Stahl MD PhD - 06/28/2023 [facility] Test Date: 2023-06-25 Pat Name: JENNIFER JAMES Department: Vanessa Mark Room: [facility] Gender: Female Sales And Leasing Agent: : 1970 Requested By: BARBY MONTANEZ Order Number: [id number] Reading MD: LAST IGLESIAS Measurements Intervals Abell Rate: 117 P: 0 OH: 0 QRS: 72 QRSD: 89 T: 73 [...] Chrissie Rea MD CARDIAC ECG ORDERABL ES [facility] * XR CHEST PORTABLE 1 VIEW (06/25/2023 22:40 EDT) Anatomical Region Laterality Modality Computed Radiogr aphy 06/26/2023 8:42 EDT Impressions 06/26/2023 8:42 EDT 1. ??Hydrostatic edema and likely bilateral effusions, definitive on the left. 2. ??Left lower lobe consolidation, presumably atelectasis. [id number] Narrative 06/26/2023 8:42 EDT XR CHEST PORTABLE [...] findings: ??Normal. Bones: Normal. Resulting Agency Comment [id number] Procedure Note Luis Nagel MD - 06/26/2023 [...] 2. Left lower lobe consolidation, presumably atelectasis. [id number] Chrissie Rea MD IMG DIAGNOSTIC IMAGI NG ORDERABLES * SLIDE REQUEST (06/25/2023 22:38 EDT) Only the most recent of3 resultswithin the time period is included. Note A smear is filed in the Hematology lab. 06/26/2023 0:03 EDT [facility] Blood VENOUS BLOOD / Unknown Venipuncture / Unknown 06/25/2023 22:38 EDT 06/25/2023 22:42 EDT Chrissie Rea MD HEMATOLOGY & PF4 ORD ERABLES [facility] [address] [place] [address] * EKG 12-LEAD (06/24/2023 5:20 EDT) 06/24/2023 5:20 EDT Narrative [facility] - 07/02/2023 9:54 EDT ? [facility] ? Test Date: ?2023-06-24 Pat Name: ? JENNIFER JAMES ? Department: ?? Reed 6 ? Room: ? B690 Gender: ? Female ? Sales And Leasing Agent: ?? [id number] : ?1970 ? Requested By: MARAH WHYTE Order Number: [id number] ? Reading MD: ?? LILLIAM MENG MD ? Measurements Intervals ?Abell ? Rate: ? 94 ? P: ?38 OH: ? 161 ?QRS: ?51 QRSD: ? 84 ? T: ?78 QT: ? 347 ? QTc: ?436 ? Interpretive Statements SINUS RHYTHM POOR R WAVE PROGRESSION ABNORMAL EKG I reviewed the tracing and have either agreed or edited the findings in this report. Electronically Signed On 07-02-2023 09:54:12 EDT by LILLIAM FAN MD. Procedure Note Lilliam Fan MD - 07/02/2023 [facility] Test Date: 2023-06-24 Pat Name: JENNIFER JAMES Department: [place] [address] Room: [facility] Gender: Female Sales And Leasing Agent: [id number] : 1970 Requested By: MARAH WHYTE Order Number: [id number] Reading MD: LILLIAM FAN MD Measurements Intervals Abell Rate: 94 P: 38 OH: 161 QRS: 51 QRSD: 84 T: 78 QT: 347 QTc: 436 Interpretive Statements SINUS RHYTHM POOR R WAVE PROGRESSION ABNORMAL EKG I reviewed the tracing and have either agreed or edited the findings inthis report. Electronically Signed On 07-02-2023 09:54:12 EDT by GAYATRI MCCLENDON. Nata Nolasco MD CARDIAC ECG ORDERABL ES [facility] * ECG REPORT - SCANNED (06/24/2023 3:47 EDT) 06/24/2023 3:47 EDT Scan 2 Orthopedic Rn PROCEDURE/MINOR VI GICAL ORDERABLES * ECG REPORT - SCANNED (06/24/2023 3:47 EDT) 06/24/2023 3:47 EDT Scan 2 Orthopedic Rn PROCEDURE/MINOR VI GICAL ORDERABLES * EKG 12-LEAD (06/22/2023 7:49 EDT) 06/22/2023 7:49 EDT Narrative [facility] - 07/05/2023 11:23 EDT ? [facility] ? Test Date: ?2023-06-22 Pat Name: ? JENNIFER JAMES ? Department: ?? Vanessa Mark ? Room: ? M316 Gender: ? Female ? Sales And Leasing Agent: ?? [id number] : ?1970 ? Requested By: LUCIUS LUJAN Order Number: [id number] ? Reading MD: ?? TRUNG OMKAR MD ? Measurements Intervals ?Abell ? Rate: ? 91 ? P: ?46 OH: ? 161 ?QRS: ?58 QRSD: ? 84 [...] Note Trung Cedillo MD - 07/05/2023 [facility] Test Date: 2023-06-22 Pat Name: JENNIFER JAMES Department: [place] [address] Room: 16 Gender: Female Sales And Leasing Agent: [id number] : 1970 Requested By: LUCIUS LUJAN Order Number: [id number] Reading MD: TRUNG CEDILLO MD Measurements Intervals Abell Rate: 91 P: 46 OH: 161 QRS: 58 QRSD: 84 T: 92 [...] On 07-05-2023 11:23:17 EDT by TRUNG DIMAS. Anastasiya Azar MD CARDIAC ECG ORDERAB LES [facility] EKG * XR CHEST PORTABLE 1 VIEW (06/20/2023 15:03 EDT) Anatomical Region Laterality Modality Computed Radiogr aphy 06/20/2023 15:0 9 EDT Impressions 06/20/2023 15:09 EDT Findings of improving left lower lobe atelectasis and persistent interstitial pulmonary edema. [id number] Narrative 06/20/2023 15:09 EDT XR CHEST PORTABLE [...] lower lobe atelectasis and persistentinterstitial pulmonary edema. [id number] Reese RODRIGUEZ DIAGNOSTIC IMAGI NG ORDERABLES * XR FEEDING [...] view is needed, formal films are recommended. [id number] Narrative 06/20/2023 14:35 EDT XR FEEDING TUBE [...] view is needed, formal films are recommended. [id number] Reese RODRIGUEZ DIAGNOSTIC IMAGI NG ORDERABLES * ECG REPORT - SCANNED (06/20/2023 9:33 EDT) 06/20/2023 9:33 EDT Scan 2 Orthopedic Rn PROCEDURE/MINOR VI GICAL ORDERABLES * OH AN ELECTIVE ENDOTRACHEAL AIRWAY (06/19/2023 13:30 EDT) Narrative Tadeo Seals AA - 06/19/2023 13:30 EDT Tadeo Seals AA ? 06/19/2023 13:49 Airway Date/Time: 06/19/2023 13:30 Urgency: elective Airway not difficult General Information and Staff Patient location during procedure: OR Anesthesiologist: Tigre Olmos MD PhD Resident/SENIOR LEAD JAVA DEVELOPER: Tadeo Seals AA Performed: resident/SENIOR LEAD JAVA DEVELOPER/AA Performed by: Tadeo Seals AA Authorized by: [...] EDT) 06/19/2023 11:4 2 EDT Scan 2 Orthopedic Rn LAB INFO SERVICE AN D SUPPORT & [...] color Doppler.The study was interpreted by [facility]. Pertinent images and digital [...] 12-LEAD (06/19/2023 9:07 EDT) 06/19/2023 9:07 EDT Narrative [facility] EKG - 06/23/2023 15:27 EDT ? [facility] ? Test Date: ?2023-06-19 Pat Name: ? JENNIFER JAMES ? Department: ?? Mendez 3 ? Room: ? M316 Gender: ? Female ? Sales And Leasing Agent: ?? MOTOR VEHICLE ASSEMBLER : ?1970 ? Requested By: MICHAELA Lara Order Number: [id number] ? Reading MD: ?? ROBB BARBOSA MD ? Measurements Intervals ?Abell ? Rate: ? 100 ?P: ?39 OH: ? 178 ?QRS: ?19 QRSD: ? 72 [...] Note Robb Barbosa MD - 06/23/2023 [facility] Test Date: 2023-06-19 Pat Name: JENNIFER JAMES Department: [place] [address] Room: [facility] Gender: Female Sales And Leasing Agent: ANAND : 1970 Requested By: MICHAELA Lara Order Number: [id number] Reading MD: ROBB BARBOSA MD Measurements Intervals Abell Rate: 100 P: 39 OH: 178 QRS: 19 QRSD: 72 T: 54 [...] FIGUEREDO. Tonia Hardy CARDIAC ECG ORDERABL ES [facility] EKG * EKG 12-LEAD (06/19/2023 2:03 EDT) 06/19/2023 2:03 EDT Narrative [facility] EKG - 06/23/2023 15:24 EDT ? [facility] ? Test Date: ?2023-06-19 Pat Name: ? JENNIFER JAMES ? Department: ?? Mendez 3 ? Room: ? M316 Gender: ? Female ? Sales And Leasing Agent: ?? [id number] : ?1970 ? Requested By: DIANNA CRAFT Order Number: [id number] ? Reading MD: ?? ROBB BARBOSA MD ? Measurements Intervals ?Abell ? Rate: ? 116 ?P: ?44 OH: ? 180 ?QRS: ?-6 QRSD: ? 69 [...] Note Robb Barbosa MD - 06/23/2023 [facility] Test Date: 2023-06-19 Pat Name: JENNIFER JAMES Department: [place] [address] Room: [facility] Gender: Female Sales And Leasing Agent: [id number] : 1970 Requested By: DIANNA CRAFT Order Number: [id number] Reading MD: ROBB BARBOSA MD Measurements Intervals Abell Rate: 116 P: 44 OH: 180 QRS: -6 QRSD: 69 T: 22 [...] Ángel Rosen MD CARDIAC ECG ORDERABL ES [facility] EKG * XR FEEDING TUBE PLACEMENT (06/18/2023 [...] above interpretation and agree with the findings. [id number] Narrative 06/18/2023 16:08 EDT XR FEEDING TUBE [...] the above interpretation andagree with the findings. [id number] Rui Gomez MD IMG DIAGNOSTIC IM AGING ORDERABLES * XR CHEST PORTABLE LINE PLACEMENT (06/18/2023 15:41 EDT) Anatomical Region Laterality Modality Chest Computed Radiogr aphy 06/18/2023 15:4 8 EDT Impressions 06/18/2023 15:48 EDT Right internal jugular temporary pacemaker wire lead in right ventricle. Dense left lower lobe atelectasis. Probable bilateral pleural effusions. [id number] Narrative 06/18/2023 15:48 EDT XR CHEST PORTABLE [...] lower lobe atelectasis. Probable bilateral pleural effusions. [id number] Ángel Rosen MD IMG DIAGNOSTIC IMAGI NG ORDERABLES * OH INSJ NON-TUNNELED CENTRAL VENOUS CATH AGE 5 YR/>, HC - INSJ NON-TUNNELED CENTRAL VENOUS CATH AGE 5 YR/> (06/18/2023 13:30 EDT) Narrative [facility] - 06/18/2023 13:30 EDT [...] to verify the correct patient, procedure, equipment, network support technician and site/side marked as required. Indications: Pacer [...] Violeta Bach MD PROCEDURE/MINOR VI GICAL ORDERABLES [facility] * CT CHEST WO [...] edema. Correlate with physical exam. Follow-up with breast care imaging center is recommended if these findings are not felt to be acute. I have personally reviewed the images and the above interpretation and agree with the findings. [id number] Narrative 06/18/2023 10:[address] CHEST WO [...] the above interpretation andagree with the findings. [id number] Rui Gomez MD IMG CT ORDERABLES * (ABNORMAL) TRIGLYCERIDE (06/18/2023 4:32 EDT) Only the most recent of2 resultswithin the time period is included. Triglyceride 335(H) <=150 mg/dL 06/18/2023 5:08 EDT [facility] Comment:Note that therapeuti c goals will differ between patients based on cardiac risk factors and current medical therapy. Blood VENOUS BLOOD / Unknown Venipuncture / Unknown 06/18/2023 4:32 EDT 06/18/2023 4:36 EDT Chris More MD CHEMISTRY & BLO OD GAS ORDERABLES [facility] [address], [place] [id number] * XR CHEST PORTABLE 1 VIEW (06/18/2023 1:23 EDT) Anatomical Region Laterality Modality Computed Radiogr aphy 06/18/2023 9:16 EDT Impressions 06/18/2023 9:16 EDT Interval extubation and removal of NG tube. Transvenous pacemaker wire tip in right ventricular apex. Interval development of left lower lobe atelectasis. Probable developing right lower lobe atelectasis. [id number] Narrative 06/18/2023 9:16 EDT XR CHEST PORTABLE [...] lobeatelectasis. Probable developing right lower lobe atelectasis. [id number] Loni Valentine MD PhD IMG DIAGNOSTIC IMAG ING ORDERABLES * EKG 12-LEAD (06/18/2023 0:08 EDT) 06/18/2023 0:08 EDT Narrative [facility] EKG - 06/27/2023 16:04 EDT ? [facility] ? Test Date: ?2023-06-18 Pat Name: ? JENNIFER JAMES ? Department: ?? [address] ? Room: ? M316 Gender: ? Female ? Sales And Leasing Agent: ?? [id number] : ?1970 ? Requested By: AKILA ARNAR Order Number: [id number] ? Reading MD: ?? FRIEDMIKEKE TY MD ? Measurements Intervals ?Abell ? Rate: ? 86 ? P: ?45 OH: ? 185 ?QRS: ?28 QRSD: ? 83 [...] Note Beto Crawford MD - 06/27/2023 [facility] Test Date: 2023-06-18 Pat Name: JENNIFER JAMES Department: [place] [address] Room: M316 Gender: Female Sales And Leasing Agent: [id number] : 1970 Requested By: AKILA DAILEY Order Number: [id number] Reading MD: BETO CORONA Measurements Intervals Abell Rate: 86 P: 45 OH: 185 QRS: 28 QRSD: 83 T: 31 [...] Valentine MD PhD CARDIAC ECG ORDERAB LES [facility] EKG * CALCIUM, IONIZED (06/17/2023 23:43 EDT) Only the most recent of6 resultswithin the time period is included. Calcium, Ionized 1.18 1.14 - 1.35 mmol/L 06/18/2023 0:00 EDT [facility] Blood VENOUS BLOOD / Unknown Venipuncture / Unknown 06/17/2023 23:43 EDT 06/17/2023 23:46 EDT Loni Valentine MD PhD CHEMISTRY & BLOOD G ORDERABLES [facility] [address], [place] [id number] * ECG REPORT - SCANNED (06/17/2023 12:52 EDT) 06/17/2023 12:5 2 EDT Scan 2 Orthopedic Rn PROCEDURE/MINOR VI GICAL ORDERABLES * TRANSFUSE RED [...] subsegmental atelectasis at the right lung base. [id number] Narrative 06/17/2023 9:39 EDT XR CHEST PORTABLE [...] probable subsegmental atelectasis atthe right lung base. [id number] Reese Blanco MD IMG DIAGNOSTIC IMAGI NG ORDERABLES * BACTERIAL CULTURE, BLOOD (06/16/2023 12:56 EDT) Only the most recent of2 resultswithin the time period is included. Organism ID No Growth at 5 days 06/21/2023 13:15 EDT [facility] Blood VENOUS BLOOD / Unknown Venipuncture / Unknown 06/16/2023 12:56 EDT 06/16/2023 13:13 EDT Reese Blanco MD MICROBIOLOGY - [facility] ORDERABLES [facility] [address] [place] [address] * XR CHEST PORTABLE LINE PLACEMENT (06/16/2023 10:55 EDT) Anatomical Region Laterality Modality Chest Computed Radiogr aphy 06/16/2023 11:0 0 EDT Impressions 06/16/2023 11:00 EDT Lines and tubes as described. Improving left lower lobe atelectasis. [id number] Narrative 06/16/2023 11:00 EDT XR CHEST PORTABLE [...] as described. Improving left lower lobe atelectasis. [id number] Reese Blanco MD IMG DIAGNOSTIC IMAGI NG ORDERABLES * XR CHEST PORTABLE LINE PLACEMENT (06/16/2023 8:57 EDT) Anatomical Region Laterality Modality Chest Computed Radiogr aphy 06/16/2023 10:2 1 EDT Impressions 06/16/2023 10:21 EDT Improving left lower lobe atelectasis. Endotracheal tube in the midthoracic trachea. Apparent kink of the proximal portion of the subclavian catheter which is likely projectional. [id number] Narrative 06/16/2023 10:21 EDT XR CHEST PORTABLE [...] of the subclavian catheter which islikely projectional. [id number] Reese Blanco MD IMG DIAGNOSTIC IMAGI NG ORDERABLES * OH AN EMERGENT ENDOTRACHEAL AIRWAY, OH ANESTHESIA NON-TIMED PLACEHOLDER (06/16/2023 8:30 EDT) Narrative Tonia Hardy - 06/16/2023 8:30 EDT Tonia Hardy ? 06/16/2023 ??8:43 Airway Date/Time: 06/16/2023 8:30 Urgency: emergent Airway not difficult General Information and Staff Anesthesiologist: Chato Serrano MD Resident/SENIOR LEAD JAVA DEVELOPER: Tonia Hardy Performed: resident/SENIOR LEAD JAVA DEVELOPER/AA and anesthesiologist Performed by: Tonia Hardy Authorized [...] Cuffed: yes Successful intubation technique: video laryngoscopy Prosper Facilitating devices/methods: intubating stylet and anterior pressure/BURP Endotracheal tube insertion site: oral Blade size: #4 ETT size (mm): 7.5 Placement verified by: chest auscultation, capnometry and palpation of cuff Number of attempts at approach: 1 Additional Comments Atraumatic Prosper 4 intubation by Troy MCCLENDON (orthopedics). Size 3 blade preferable if available. Chato Serrano MD ANESTHESIA ORDERABLE S * HOLD SST (06/16/2023 8:20 EDT) Hold Hold 06/16/2023 9:31 EDT [facility] Blood VENOUS BLOOD / Unknown 06/16/2023 8:20 EDT 06/16/2023 8:20 EDT Chris More MD LAB INFO SERVIC E AND SUPPORT & PHONE RESULT Performing Organization Address City/[facility]/ZIP Co de Phone Number [facility] [address] [place] [address] * HOLD BLUE TOP (06/16/2023 8:20 EDT) Hold Hold 06/16/2023 9:31 EDT [facility] Blood VENOUS BLOOD / Unknown 06/16/2023 8:20 EDT 06/16/2023 8:20 EDT Chris More MD LAB INFO SERVIC E AND SUPPORT & PHONE RESULT Performing Organization Address [facility] Co de Phone Number [facility] [address] [place] [address] * LYME AB (06/16/2023 8:20 EDT) Lyme Ab Negative Negative 06/17/2023 11:26 EDT [facility] Blood VENOUS BLOOD / Unknown 06/16/2023 8:20 EDT 06/16/2023 8:20 EDT Reese Blanco MD IMMUNOLOGY AND SEROL OGY ORDERABLES Performing Organization Address [facility] Co de Phone Number [facility] [address] [place] [address] * LACTIC ACID (06/16/2023 8:05 EDT) Only the most recent of4 resultswithin the time period is included. Lactic Acid 1.9 <=2.0 mmol/L 06/16/2023 8:39 EDT [facility] Blood VENOUS BLOOD / Unknown Venipuncture / Unknown 06/16/2023 8:05 EDT 06/16/2023 8:19 EDT Reese Blanco MD CHEMISTRY & BLOOD GA S ORDERABLES [facility] [address] [place] [address] * EKG 12-LEAD (06/16/2023 5:50 EDT) 06/16/2023 5:50 EDT Narrative [facility] EKG - 06/17/2023 12:45 EDT ? [facility] ? Test Date: ?2023-06-16 Pat Name: ? JENNIFER JAMES ? Department: ?? Mendez 3 ? Room: ? M316 Gender: ? Female ? Sales And Leasing Agent: ?? : ?1970 ? Requested By: MICHAELA Lara Order Number: [id number] ? Reading MD: ?? VILMA OLIVEIRA MD ? Measurements Intervals ?Abell ? Rate: ? 69 ? P: ?33 OH: ? 200 ?QRS: ?17 QRSD: ? 84 [...] Note Vilma Oliveira MD - 06/17/2023 [facility] Test Date: 2023-06-16 Pat Name: JENNIFER JAMES Department: [place] [address] Room: 16 Gender: Female Sales And Leasing Agent: : 1970 Requested By: MICHAELA Lara Order Number: [id number] Reading MD: VILMA OLIVEIRA MD Measurements Intervals Abell Rate: 69 P: 33 OH: 200 QRS: 17 QRSD: 84 T: 34 [...] BRIONES. Tonia Hardy CARDIAC ECG ORDERABL ES [facility] EKG * XR FEEDING TUBE PLACEMENT (06/15/2023 [...] view is needed, formal films are recommended. [id number] Narrative 06/15/2023 10:51 EDT XR FEEDING TUBE [...] view is needed, formal films are recommended. [id number] Tonia Hardy IMG DIAGNOSTIC IMAGI NG ORDERABLES * VANCOMYCIN, RANDOM (06/15/2023 5:10 EDT) Only the most recent of3 resultswithin the time period is included. Vancomycin Random 14.3 See Note ??g/mL 06/15/2023 5:43 EDT [facility] Comment: NOTE: Reference Ranges: Trough: ??10.0 - 20.0 ug/mL Peak: ??25.0 - 50.0 ug/mL Blood VENOUS BLOOD / Unknown Venipuncture / Unknown 06/15/2023 5:10 EDT 06/15/2023 5:17 EDT Chris More MD CHEMISTRY & BLO OD GAS ORDERABLES [facility] [address] [place] [address] * EKG 12-LEAD (06/15/2023 1:38 EDT) 06/15/2023 1:38 EDT Narrative [facility] EKG - 06/20/2023 9:25 EDT ? [facility] ? Test Date: ?2023-06-15 Pat Name: ? JENNIFER JAMES ? Department: ?? [address] 3 ? Room: ? M316 Gender: ? Female ? Sales And Leasing Agent: ?? : ?1970 ? Requested By: MICHAELA GONZALEZ Order Number: [id number] ? Alicia MCCLENDON: ?? KYLE FAIR MD ? Measurements Intervals ?Abell ? Rate: ? 88 ? P: ?49 OH: ? 195 ?QRS: ?30 QRSD: ? 85 [...] Note Kyle Fair MD - 06/20/2023 [facility] Test Date: 2023-06-15 Pat Name: JENNIFER JAMES Department: [place] [address] Room: M316 Gender: Female Sales And Leasing Agent: : 1970 Requested By: MICHAELA GONZALEZ Order Number: [id number] Reading MD: KYLE FAIR MD Measurements Intervals Abell Rate: 88 P: 49 OH: 195 QRS: 30 QRSD: 85 T: 32 [...] 06-20-2023 09:25:55 EDT by KYLE BRISENO. Link Hardy DO CARDIAC ECG ORDERABL ES [facility] EKG * XR CHEST PORTABLE LINE PLACEMENT [...] above interpretation and agree with the findings. [id number] Narrative 06/15/2023 13:05 EDT XR CHEST PORTABLE [...] of atelectasis. Apices not completely included in [id number]. The pulmonary vasculature is unremarkable. Pleura: Suboptimally evaluated on nonupright radiograph, but no visible abnormality. Cardiac and mediastinal contours: Within normal limits for technique. Soft tissues and extrathoracic findings: No significant abnormalities. Bones: No obvious displaced rib fractures. Hira Franklin MD IMG DIAGNOSTIC IMAGI NG ORDERABLES * PTT (06/15/2023 1:10 EDT) PTT 27 26 - 37 secs 06/15/2023 1:57 EDT [facility] Blood VENOUS BLOOD / Unknown Venipuncture / Unknown 06/15/2023 1:10 EDT 06/15/2023 1:35 EDT Link Hardy DO HEMATOLOGY & PF4 ORD ERABLES Performing Organization Address [facility] de Phone Number [facility] [address] [place] [address] * PROTIME (06/15/2023 1:10 EDT) I.N.R. 1.0 0.9 - 1.1 Ratio 06/15/2023 1:57 EDT [facility] Pro Time 11.4 9.7 - 12.8 secs 06/15/2023 1:57 EDT [facility] Blood VENOUS BLOOD / Unknown Venipuncture / Unknown 06/15/2023 1:10 EDT 06/15/2023 1:35 EDT Narrative [facility] - 06/15/2023 1:57 EDT Moderate Intensity Coumadin INR = 2.0-3.0 Adjustments in anticoagulant therapy dose should be based on the INR and NOT on the Protime. Link Hardy DO HEMATOLOGY & PF4 ORD ERABLES Performing Organization Address [facility] Co de Phone Number [facility] [address] [place] [address] * (ABNORMAL) POCT BLOOD GAS, CG8 I-STAT (06/15/2023 1:01 EDT) Only the most recent of2 resultswithin the time period is included. pH, Arterial, i-STAT 7.27(L) 7.35 - 7.45 06/15/2023 1:06 [facility] PCO2, Arterial, i-STAT 43 35 - 45 mmHg 06/15/2023 1:06 [facility] pO2, Arterial, i-STAT 35(L) 80 - 105 mmHg 06/15/2023 1:06 [facility] TCO2, Arterial, i-STAT 21(L) 22 - 26 mmol/L 06/15/2023 1:06 [facility] O2 Saturation, Arterial, i-STAT 58(L) 95 - 98 % 06/15/2023 1:06 [facility] Sodium, Arterial, i-STAT 128(L) 136 - 145 mmol/L 06/15/2023 1:06 [facility] Potassium, Arterial, i-STAT 4.5 3.5 - 5 mmol/L 06/15/2023 1:06 [facility] Glucose, Arterial, i-STAT 254(H) 70 - 100 mg/dL 06/15/2023 1:06 [facility] Hematocrit, Arterial, i-STAT 34(L) 35 - 44 %PCV 06/15/2023 1:06 [facility] Ionized Calcium, Arterial, i-STAT 1.24 1.12 - 1.32 mmol/L 06/15/2023 1:06 [facility] Base Excess(+) / Deficit(-), Arterial, i-STAT -7(L) -2 - 3 mmol/L 06/15/2023 1:06 [facility] Blood ARTERIAL BLOOD / Unknown 06/15/2023 1:01 EDT 06/15/2023 1:06 [facility] - 06/15/2023 1:06 EDT [...] CARE T EST ORDERABLES Performing Organization Address City/[facility]/ZIP Co de Phone Number [facility] [address] [place] [address] * TRANSFUSE RED BLOOD CELLS (06/14/2023 22:57 EDT) Blood Terrence Branham MD NURSING TREATMENT - BLOOD ADMINISTRATION * (ABNORMAL) ANAEROBE CULTURE/SMEAR(INC. AEROBES), OTHER (06/14/2023 22:51 EDT) Organism ID Moderate mixed gram positive growth including anaerobes. Bacteroides fragilis group is not present. 06/19/2023 8:08 EDT [facility] Smear Moderate Neutrophils Present(A) 06/19/2023 8:08 EDT [facility] Smear Moderate Mixed gram positive and gram negative organisms(A) 06/19/2023 8:08 EDT [facility] Comment:Results reviewed by supervisory staff. Tissue SOFT TISSUE / Unknown 06/14/2023 22:51 EDT 06/14/2023 23:34 EDT Violeta Bach MD MICROBIOLOGY - GENE [facility] ORDERABLES Performing Organization Address City/[facility]/ZIP Co de Phone Number [facility] [address] [place] [address] * FUNGUS CULTURE/SMEAR (06/14/2023 22:51 EDT) Organism ID No fungi isolated 07/12/2023 11:15 EDT [facility] Fungal Smear No Fungi Seen 07/12/2023 11:15 EDT [facility] Tissue SOFT TISSUE / Unknown 06/14/2023 22:51 EDT 06/14/2023 23:34 EDT Violeta Bach MD MICROBIOLOGY - GENE RAL ORDERABLES [facility] [address] [place] [address] * TRANSFUSE RED BLOOD CELLS (06/14/2023 22:35 EDT) Blood Titus Singleton MD NURSING TREATMENT - BLOOD ADMINISTRATION * OH AN ELECTIVE ENDOTRACHEAL AIRWAY (06/14/2023 22:03 EDT) [...] 6:35 EDT) ABO O 06/14/2023 7:18 EDT [facility] Rh Factor Positive 06/14/2023 7:18 EDT [facility] Blood VENOUS BLOOD / Unknown Venipuncture / Unknown 06/14/2023 6:35 EDT 06/14/2023 7:00 EDT Chato Boswell MD BLOOD BANK TESTS Performing Organization Address City/[facility] Co de Phone Number [facility] [address] [place] [address] * (ABNORMAL) HEMOGLOBIN A1C (06/14/2023 4:55 EDT) Hemoglobin A1c 8.2(H) <5.7 % 06/14/2023 11:46 EDT [facility] Comment: Glycemic Status References: Normal: ??<5.7% Pre-Diabetes: ??5.7% - 6.4% Diagnostic of Diabetes: ??> or = 6.5% (if confirmed) Est Avg Glucose 189 mg/dL 11:46 EDT [facility] Comment:The eAG represents t he A1c result expressed as average glucose in mg/dL. Blood VENOUS BLOOD / Unknown Venipuncture / Unknown 06/14/2023 4:55 EDT 06/14/2023 4:59 EDT Ángel Godinez MD CHEMISTRY & BLOOD G ORDERABLES Performing Organization Address [facility] Co de Phone Number [facility] [address] [place] [address] * CT OUTSIDE IMAGES PELVIS (06/12/2023 16:49 EDT) Narrative 06/13/2023 16:49 EDT This is a non-reportable exam. Provider Unknown MD IMG OTHER IMAGING OR DERABLES from Last 3 Months Advance Directives For more information, please contact: [phone] * Full Code (Latest Code Status on [...] NOT the patient's healthcare provider; or the general assistant, general labor forklift operator, employee of a residential care facility, or correctional facility where the patient resides-unless related to the patient. I confirm * Full Code Date Activated Date Inactivated Comments 06/13/2023 23:47 06/20/2023 14:57 Question Answer Comments When the patient has NO PULSE: Full Code / CPR Who Made the Decision? Default/Not Discussed Care Teams Biodiesel Division Manager Relationship Specialty Start Date End Date Unknown, Provider, PCP - General 06/13/23
--- OUTSIDE RECORDS SUMMARY | 2023-09-11 15:32 | XMS_ITS | Encounter Summary ---
Author Organization [facility] Address [address] [place] [address] Care Team Providers Care Anime Designer Name Role Phone Unknown, Provider Primary Care Provider Encounter Details Date Type Department Care Team (Late st Contact Info) Description 08/19/2023 Orders Only [facility] [address] [place] [address] Carmen Vernon, [employer] P[employer] CARTRIDGE TESTER [address] [place] [address] Type 2 diabetes mellitus with hyperglycemia, with long-term current use of insulin ([facility]) (Primary Dx) Social History Tobacco Use Types Packs/Day Years Used Date Smoking Tobacco: Former Cigarettes 1.5 38.3 1 986 - 06/12/2023 Smokeless Tobacco: Never [facility] Utilities Answer Date Recorded In the past 12 months has [facility], gas, oil, or water [facility] threatened to shut off services in your [...] place to sleep or slept in a long-term (including now)? No 06/19/2023 Housing Stability Vital Sign Answer Osvaldo e Recorded In the last 12 months, was t here a time when you were not able to pay the mortgage or rent on time? Yes 07/10/2023 In the past 12 months, how m any times have you moved where you were living? 0 07/10/2023 At any time in the past 12 m [facility], were you homeless or living in a long-term (including now)? No 07/10/2023 Interpersonal Safety Answer [...] 0:35 EDT Sexual Orientation Not on file documented as of this encounter Functional Status Functional Status Response Date of [...] or older) varying orientation while hospitalized 06/30/2023 documented as of this encounter Ordered Prescriptions Prescription Sig Dispensed Refills Start Date End Da te Blood-Glucose Meter,Continuous (DEXCOM G7 MOTOR AND GENERATOR BRUSH MAKER) miscIndications:Type 2 diabetes mellitus with hyperglycemia, with long-term current use of insulin ([facility]) 1 Device by misc (non-drug; combo route) route Once for 1 dose. 1 Each 08/19/2023 08/22/2023 documented in this encounter Plan of Treatment Not on file documented as of this encounter Visit Diagnoses Diagnosis Type 2 diabetes mellitus with hyperglycemia, with long-term current use of insulin ([facility])- Primary documented in this encounter Care Teams Anime Designer Relationship Specialty Start Date End Date Unknown, Provider, PCP - General 06/13/23 documented as of this encounter
--- OUTSIDE RECORDS SUMMARY | 2023-09-11 15:32 | XMS_ITS | Encounter Summary ---
Author Organization [facility] Address [address] [place] [address] Care Team Providers Care Fermentologist Name Role Phone Unknown, Provider Primary Care Provider Encounter Details Date Type Department Care Team (Late st Contact Info) Description 08/12/2023 Orders Only [facility] [address] [place] [address] Carmen Vernon, ENGINEER CONDUCTOR [address] [facility] [address] [place] [address] Type 2 diabetes mellitus with other skin ulcer, with long-term current use of insulin ([facility]) (Primary Dx) Social History Tobacco Use Types Packs/Day Years Used Date Smoking Tobacco: Former Cigarettes 1.5 38.3 1 986 - 06/12/2023 Smokeless Tobacco: Never [facility] Utilities Answer Date Recorded In the past 12 months has [facility] [employer], gas, oil, or water eFans threatened to shut off services in your [...] any time in the past 12 m [facility], were you homeless or living [...] Refills Start Date End Da te Blood-Glucose Sensor (DEXCOM G7 SENSOR) deviceIndications:Type 2 diabetes mellitus with other skin ulcer, with long-term current use of insulin (HCC-CMS) 1 Device by misc (non-drug; combo route) route every 10 days. 3 Each 08/12/2023 08/22/2023 documented in this encounter Plan of Treatment Not on file documented as of this encounter Visit Diagnoses Diagnosis Type 2 diabetes mellitus with other skin ulcer, with long-term current use of insulin (HCC-CMS)- Primary documented in this encounter Care Teams Fermentologist Relationship Specialty Start Date End Date Unknown, Provider, PCP - General 06/13/23 documented as of this encounter
--- OUTSIDE RECORDS SUMMARY | 2023-09-11 15:32 | XMS_ITS | Encounter Summary ---
Author Organization [facility] Address [address] [place] [address] Care Team Providers Care Diffuser Operator Name Role Phone Unknown, Provider Primary Care Provider [phone] Reason for Visit * Reason Onset Date Comments Hospital Discharge Follow Up 08/26/2023 Encounter Details Date Type Department Care Team (Late st Contact Info) Description 08/26/2023 Telephone [facility] Acute Care Surgery - [facility] [address], [place] [address] Bekah Christensen, KIESHA Hospital Discharge Follow Up Social History Tobacco Use Types Packs/Day Years Used Date Smoking Tobacco: Former Cigarettes 1.5 38.3 1 986 - 06/12/2023 Smokeless Tobacco: Never [facility] Utilities Answer Date Recorded In the past 12 months has th e electric, gas, oil, or water company threatened to shut off services in your [...] place to sleep or slept in a fdc (including now)? No 06/19/2023 Housing Stability Vital Sign Answer Osvaldo e Recorded In the last 12 months, was t here a time when you were not able to pay the mortgage or rent on time? Yes 07/10/2023 In the past 12 months, how m any times have you moved where you were living? 0 07/10/2023 At any time in the past 12 m [facility], were you homeless or living in a fdc (including now)? No 07/10/2023 Interpersonal Safety Answer [...] hospitalized 06/30/2023 documented as of this encounter Miscellaneous Notes * Telephone Encounter - Bekah Christensen RN - 08/26/2023 1301 EDT ACS/Trauma/Burn Hospital Discharge Call Patient Name: Jennifer James , : 1970 Admission Date: 06/13/23 Date of Discharge: 08/22/23 Admission Diagnosis: Necrotizing Fasciitis Surgeon/Attending: Dr. Bach / Dr. Rueda / Dr. Youngblood / Dr. Mars Principal Procedure: debridement of right buttock necrotizing fasciitis and primary repair of rectal injury Date: 06/14/2023 Secondary Procedures: Nec fasc debridement x2 (OSH) Serial debridement, repair rectal injury (06/14) Additional debridement, washout (06/16) Additional debridement, washout, partial closure (06/18) Washout, wound vac change (06/25) Wound vac change with ACELL in OR (07/09) Split thickness skin graft (07/30) Wound and/or Incisions: Yes covered Comments: Home Health?:Yes Agency: States the nurse having a hard time keeping dressing on Restrictions: No Driving while on Narcotics It is ok to shower, wash gently and pat area dry Please no pools, lakes, tubs or hot tubs for 2 weeks Other: Recovery at Home: Fevers since home greater than 101.5?:No Pain: Yes 9, after nurse and PT relaxation and pain medication Pain Management: Yes Taking: tylenol Medication Reconciliation: Reviewed with Patient Yes Any Discrepancies?No Comments/Concerns: BM's & Voiding Issues:No Normal to loose Comments: Bowel Meds: No Comments: Issues with ADL's: No Assistive Device: No Eating & Drinking ok?: Yes Comments: drinking diet ivette daniela and boost 3 times a day Eating well, but no junk food Sleeping ok?:No didn't sleep well last night her anxiety is uziel high Her blood sugar is still high Any Other Questions or Concerns: patient states she has a follow up appointment closer to home withDr. Montes at [facility]. It's [address] house to here Hospital Discharge Follow Up Appointment: 09/02/23 @ 1030 am / pt cx via [facility] 08/26/23 Directions to Clinic given:Yes via letter documented in this encounter Plan of Treatment Not on file documented as of this encounter Visit Diagnoses Not on filedocumented in this encounter Care Teams Diffuser Operator Relationship Specialty Start Date End Date Unknown, Provider, PCP - General 06/13/23 documented as of this encounter
--- OUTSIDE RECORDS SUMMARY | 2023-09-11 15:32 | XMS_ITS | Encounter Summary ---
Author Organization [facility] Address [address] [place] [address] Care Team Providers Care Edge Cutting Machine Operator Name Role Phone Unknown, Provider Primary Care Provider [phone] Reason for Visit * Auth/Cert (Routine) Specialty Diagnoses / Procedures Referred By Jaja auguste Referred To Contact Diagnoses Necrotizing fasciitis ([facility]) necrotizing fasciitis Referral ID Status Reason Start Date Expiration Date Visits Re quested Visits Authorized [id number] 1 1 Encounter Details Date Type Department Care Team ([facility] st Contact Info) Description 07/10/2023 10:39 EDT Anesthesia Event [facility] OR [address] [place], [place] [address] Gigi Rodriguez MD [address] [facility] [place] [address] Anesthesia Record Procedure Summary Procedure Name Responsible Anesthesiologist Anesthesia Start Time Anesthesia Stop Time WOUND VAC I&D PERINEUM (Right) Gigi Rodriguez MD 07/10/23 1039 07/10/23 1155 Events Date Time Event Comment 07/10/2023 1039 An Start The patient was re-evaluated immediately before moderate or deep sedation use, before anesthesia induction, or before the anesthesia procedure. 1039 An Start Data 1048 An Induction The patient was reevaluated immediately before moderate or deep sedation use and before anesthesia induction. 1051 An Intubation 1106 Anesthesia Ready 1110 Incision 1148 An Extubation 1152 an stop data 1155 Handoff to RN I completed my handoff to the receiving nurse during which we: 1. Identified the patient 2. Identified the responsible provider 3. Reviewed the pertinent medical history 4. Discussed the surgical course 5. Reviewed intra-op anesthesia management and issues during anesthesia 6. Set expectations for post-procedure period 7. Allowed opportunity for questions and acknowledgement of understanding. 1155 An Stop Meds Name Total ePHEDrine pre-filled syringe 10 mg fentanyl citrate (PF) injection 100 mcg HYDROmorphone vial 2 mg/mL 0.4 mg ketAMINE 5 mL prefilled syringe 50 mg midazolam (versed) 1 mg/mL 2 mL vial 1 m g ondansetron (PF) (ZOFRAN) injection 4 mg phenylephrine 1 mg/10 mL pre -filled SYRINGE (Bolus or short duration infusion) 850 mcg propOFol (DIPRIVAN) injection 100 mg rocuronium 10 mg/mL vial 10 mg succinylcholine 20 mg/mL vial 140 mg lactated ringers (LR) infusion 550 mL * Agents Name Insp Sevoflurane Exp Sevoflurane O2 N2O Air * Blood No blood administrations on file. Lines, Drains, and Airways Type Details Placement Removal Wound 06/14/23 (came w/ on admission); 1000 (came w/ on admission); Buttock, Rectum 06/14/23 1000 by Danya Vang, KIESHA Urethral Catheter 06/13/23; Patient ar rived with LDA; Critically ill and the need for every 1-2 hour output measurements, Assist in healing open sacral or perineal wound healing in incontinent patient; 07/15/23; Per protocol 06/13/23 0000 by Harper Hutchinson RN 07/15/23 0000 by Paz Barth RN Wound Vac 06/26/23; 2222; In O R by MD; Right, Medial; buttock; 07/10/23; 1127 06/26/23 2222 by Chastity Rivera RN 07/10/23 1127 by Liat Denise, KIESHA Peripheral IV 07/04/23; 0501; 06/25 08/18; 20; 1.75; B Khoury Introcan; Right, Anterior, Medial, Distal; Upper Arm; basilic, 0.3cm wide, 1.1cm deep approximately; Inserted by RN, Ultrasound Guided; 1; None; 2% Chlorhexidine with IPA; 07/19/23; 1002; Painful, Patient request; No complications 07/04/23 0501 by Gardenia Quezada RN 07/19/23 1002 by Hoa Vásquez RN Rectal Tube 07/07/23; 2100; Inse rted by RN; With balloon; 08/09/23; 1744 07/07/23 2100 by Chrissie Marroquin RN 08/09/23 1744 by Tonia Draper RN Non-Surgical Airway 07/10/23; 1119 (gia oleary via procedure documentation); 07/10/23; 1148 07/10/23 1119 by Jeovanny Gómez MD 07/10/23 1148 by Jeovanny Gómez MD documented in this encounter Social History Tobacco Use Types Packs/Day Years Used Date Smoking Tobacco: Former Cigarettes 1.5 38.3 1 986 - 06/12/2023 Smokeless Tobacco: Never [facility] Utilities Answer Date Recorded In the [...] place to sleep or slept in a chcf (including now)? No 06/19/2023 Housing Stability Vital Sign Answer Osvaldo e Recorded In the last 12 months, was t here a time when you were not able to pay the mortgage or rent on time? Yes 07/10/2023 In the past 12 months, how m any times have you moved where you were living? 0 07/10/2023 At any time in the past 12 m [facility], were you homeless or living in a chcf (including now)? No 07/10/2023 Interpersonal Safety Answer [...] hospitalized 06/30/2023 documented as of this encounter OR Notes * Anesthesia Postprocedure Evaluation - Jeovanny Gómez MD - 07/10/2023 1202 EDT Patient: Jennifer James Vital signs were reviewed with the recovery nurse. Complete vitals history is available in the Epicflowsheets. Vitals Value Taken Time BP 119/69 07/10/23 1200 Temp 36.4 07/10/23 1202 Resp 23 07/10/23 1201 Pulse From Oximetry 82 BPM 07/10/23 1201 SpO2 100 % 07/10/23 1201 Heart Rate 82 BPM 07/10/23 1201 Vitals shown include unfiled device data. Last Pain Score - Numeric Pain Level (Scale 1-10): 8 Type of Anesthesia - general Anesthesia Post Evaluation Post-procedure vitals reviewed and are stable. Level of consciousness: awake Temperature status: normothermia and patient returned to pre-procedure baseline Respiratory status: airway patent and stable Cardiovascular status: stable Hydration status: adequate Nausea/Vomiting: none Pain management: adequate Post-Op Assessment: patient tolerated procedure well with no complications Patient participation: able to participate Disposition: inpatient Anesthesia Complications: No apparent anesthesia complications * Anesthesia Procedure Notes - Jeovanny Gómez MD - 07/10/2023 1116 EDT Associated Order(s): Airway Airway Date/Time: 07/10/2023 10:51 Urgency: elective General Information and Staff Patient location during procedure: OR Anesthesiologist: Gigi Rodriguez MD Resident/BLIND INSTALLER: Jeovanny Gómez MD Performed: resident/BLIND INSTALLER/AA Performed by: Jeovanny Gómez MD Authorized by: Gigi Rodriguez MD Indications and Patient Condition Indications for airway [...] glottic structures. Tube passed anteriorly without difficulty * Anesthesia Preprocedure Evaluation - Gigi Rodriguez MD - 07/10/2023 1020 EDT Anesthesia Preprocedure Evaluation 52 yo female for revision/I&D wound vac of perineum PMHx sig for HTN, T2DM, Hx respiratory failure/CP arrest, Necrotizing Faciitis; patient has Hx of Tobacco Abuse, Cannabis, EtoH Patient Medical History, including Anesthesia History reviewed. Chart and Nursing Notes reviewed, including NPO status and Medication History. Additional ROS/History Findings: Allergies Allergen Reactions Aspirin Hives Cymbalta [Duloxetine] Other (See Comments) Depression, suicidal ideation Lyrica [Pregabalin] Nausea And Vomiting Penicillins Hives Review of Systems History reviewed. No pertinent past medical history. Relevant Problems No relevant active problems Physical Exam Airway Mallampati: II TM distance: >3 FB Neck ROM: full Cardiovascular Rhythm: regular Rate: normal Dental (+) upper dentures, lower dentures Pulmonary - normal exam Breath sounds clear to auscultation Abdominal Comments: Deferred Anesthesia Plan ASA 3 Anesthesia Type - general, to include intravenous induction. Anesthesia plan and risks discussed. Informed consent obtained from patient. Specific risks discussed were myocardial infarction, nausea, vomiting and stroke. Code status discussed? No The preoperative history and physical which was performed within 30 days of this procedure, has been reviewed and the clinically appropriate elements of the physical examination have been repeated. There are no changes to the documented history and physical or, if so, such changes are documented inthis note PAT Note Notes from 06/10/23 through 07/10/23 No notes of this type exist for this encounter. documented in this encounter Plan of Treatment Not on file documented as of this encounter Procedures Procedure Name Priority Date/Time Associated Diagnosis Comments ANESTHESIA INTUBATION Routine 07/10/2023 10:51 EDT documented in this encounter Results * TX AN ELECTIVE ENDOTRACHEAL AIRWAY (07/10/2023 10:51 EDT) Narrative Jeovanny Gómez MD - 07/10/2023 10:51 EDT Jeovanny Gómez MD ? 07/10/2023 11:19 Airway Date/Time: 07/10/2023 10:51 Urgency: elective General Information and Staff Patient location during procedure: OR Anesthesiologist: Gigi Rodriguez MD Resident/BLIND INSTALLER: Jeovanny Gómez MD Performed: resident/BLIND INSTALLER/AA Performed by: Jeovanny Gómez MD Authorized by: [...] difficulty Gigi Rodriguez MD ANESTHESIA ORDERABLE S documented in this encounter Visit Diagnoses Not on filedocumented in this encounter Administered Medications Inactive Administered Medications - up to 3 most recent administrations Medication Order MAR Action Action Date Dose Rate Site ePHEDrine injection 25 mg/5 mL syringe intravenous, PRN, Starting on Sat07/10/23 at 1129, Until Sat07/10/23 at 1155, Routine, Anesthesia Intraprocedure Given 07/10/2023 11:35 EDT 5 mg Given 07/10/2023 11:29 EDT 5 mg fentaNYL citrate (PF) injection intravenous, PRN, Starting on Sat07/10/23 at 1108, Until Sat07/10/23 at 1155, Routine, Anesthesia Intraprocedure Given 07/10/2023 11:08 EDT 100 mcg HYDROmorphone (DILAUDUD) 2 mg/mL injection intravenous, PRN, Starting on Sat07/10/23 at 1125, Until Sat07/10/23 at 1155, Routine, Anesthesia Intraprocedure Given 07/10/2023 11:25 EDT 0.4 mg ketAMINE in NaCl, iso-osmotic (KETALAR) 50 mg/5 mL (10 mg/mL) IV injection intravenous, PRN, Starting on Sat07/10/23 at 1047, Until Sat07/10/23 at 1155, Routine, Anesthesia Intraprocedure Given 07/10/2023 10:47 EDT 50 mg lactated ringers (LR) infusion intravenous, FA IP EQF CONTINUOUS PRN FOR ONE STEP MEDS, Starting on Sat07/10/23 at 1048, Until Sat07/10/23 at 1159, Routine, Anesthesia Intraprocedure New Bag 07/10/2023 10:48 EDT midazolam (PF) (VERSED) injection intravenous, PRN, Starting on Sat07/10/23 at 1044, Until Sat07/10/23 at 1155, Routine, Anesthesia Intraprocedure Given 07/10/2023 10:44 EDT 1 mg ondansetron (PF) (ZOFRAN) injection intravenous, PRN, Starting on Sat07/10/23 at 1139, Until Sat07/10/23 at 1155, Routine, Anesthesia Intraprocedure Given 07/10/2023 11:39 EDT 4 mg phenylephrine HCl in 0.9% NaCl injection intravenous, PRN, Starting on Sat07/10/23 at 1102, Until Sat07/10/23 at 1155, Routine, Anesthesia Intraprocedure Given 07/10/2023 11:39 EDT 100 mcg Given 07/10/2023 11:32 EDT 100 mcg Given 07/10/2023 11:27 EDT 150 mcg propOFol (DIPRIVAN) injection intravenous, PRN, Starting on Sat07/10/23 at 1048, Until Sat07/10/23 at 1155, Routine, Anesthesia Intraprocedure Given 07/10/2023 10:48 EDT 100 mg rocuronium (ZEMURON) injection intravenous, PRN, Starting on Sat07/10/23 at 1049, Until Sat07/10/23 at 1155, Routine, Anesthesia Intraprocedure Given 07/10/2023 10:49 EDT 10 mg succinylcholine (ANECTINE) injection intravenous, PRN, Starting on Sat07/10/23 at 1049, Until Sat07/10/23 at 1155, Routine, Anesthesia Intraprocedure Given 07/10/2023 10:49 EDT 140 mg documented in this encounter Care Teams Edge Cutting Machine Operator Relationship Specialty Start Date End Date Unknown, Provider, PCP - General 06/13/23 documented as of this encounter
--- OUTSIDE RECORDS SUMMARY | 2023-09-11 15:32 | XMS_ITS | Encounter Summary ---
Author Organization [facility] Address [address] [place] [address] Care Team Providers Care Dental Chair Assembler Name Role Phone Unknown, Provider Primary Care Provider [phone] Encounter Details Date Type Department Care Team (Late st Contact Info) Description 08/30/2023 Lab Requisition [facility] Pathology & Laboratory Medicine - [facility] [address] [place] [address] Outr Resulting Lab, Provider Social History Tobacco Use Types Packs/Day Years Used Date Smoking Tobacco: Former Cigarettes 1.5 38.3 1 986 - 06/12/2023 Smokeless Tobacco: Never [facility] Utilities Answer Date Recorded In [...] place to sleep or slept in a detention (including now)? No 06/19/2023 Housing Stability Vital Sign Answer Osvaldo e Recorded In the last 12 months, was t here a time when you were not able to pay the mortgage or rent on time? Yes 07/10/2023 In the past 12 months, how m any times have you moved where you were living? 0 07/10/2023 At any time in the past [address] [facility], were you homeless or living in a detention (including now)? No 07/10/2023 Interpersonal Safety Answer [...] hospitalized 06/30/2023 documented as of this encounter Plan of Treatment Not on file documented as of this encounter Procedures Procedure Name Priority Date/Time Associated Diagnosis Comments HEPATITIS C AB W REFLEX TO HCV RNA BY PCR Routine 08/30/2023 10:00 EDT documented in this encounter Results * HEPATITIS C AB W REFLEX TO HCV RNA BY PCR (08/30/2023 10:00 EDT) Hep C Antibody Negative Negative 09/02/2023 9:29 EDT [facility] Blood VENOUS BLOOD / Unknown 08/30/2023 10:00 EDT 08/30/2023 21:41 EDT Provider Outr Resulting Lab CHEMISTRY & BLOOD GAS ORDERABLES [facility] [address] [place] [id number] documented in this encounter Visit Diagnoses Not on filedocumented in this encounter Care Teams Dental Chair Assembler Relationship Specialty Start Date End Date Unknown, Provider, PCP - General 06/13/23 documented as of this encounter
--- OUTSIDE RECORDS SUMMARY | 2023-09-11 15:32 | XMS_ITS | Encounter Summary ---
Author Organization [facility] Address [address] [place] [address] Care Team Providers Care Tool Design Draftsperson Name Role Phone Unknown, Provider Primary Care Provider [phone] Encounter Details Date Type Department Care Team (Late st Contact Info) Description 08/30/2023 Lab Requisition [facility] Pathology & Laboratory Medicine - [facility] [address] [place] [address] Outr Resulting Lab, Provider Social History Tobacco Use Types Packs/Day Years Used Date Smoking Tobacco: Former Cigarettes 1.5 38.3 1 986 - 06/12/2023 Smokeless Tobacco: Never [facility] Utilities Answer Date Recorded In the past [...] place to sleep or slept in a residential (including now)? No 06/19/2023 Housing Stability Vital Sign Answer Osvaldo e Recorded In the last 12 months, was t here a time when you were not able to pay the mortgage or rent on time? Yes 07/10/2023 In the past 12 months, how m any times have you moved where you were living? 0 07/10/2023 At any time in the past 12 m [facility], were you homeless or living in a residential (including now)? No 07/10/2023 Interpersonal Safety Answer [...] Procedure Name Priority Date/Time Associated Diagnosis Comments HIV 1/2 ANTIGEN AND ANTIBODY, 4TH GENERATION Routine 08/30/2023 10:00 EDT documented in this encounter Results * HIV 1/2 ANTIGEN AND ANTIBODY, 4TH GENERATION (08/30/2023 10:00 EDT) HIV 1 and 2 Antibody/p24 Antigen, 4th Generation Negative Negative 09/02/2023 9:27 EDT [facility] Comment:If acute HIV-1 infec tion is suspected in a high risk patient, submit plasma specimen for HIV-1 RNA quantitation test. Blood VENOUS BLOOD / Unknown 08/30/2023 10:00 EDT 08/30/2023 21:44 EDT Narrative [facility] - 09/02/2023 9:27 EDT Fourth Generation assay performed on the Siemens BinOpticsaur XPT. Provider Outr Resulting Lab IMMUNOLOGY A ND SEROLOGY ORDERABLES [facility] [address] [place] [address] documented in this encounter Visit Diagnoses Not on filedocumented in this encounter Care Teams Tool Design Draftsperson Relationship Specialty Start Date End Date Unknown, Provider, PCP - General 06/13/23 documented as of this encounter
--- OUTSIDE RECORDS SUMMARY | 2023-09-11 15:32 | XMS_ITS | Encounter Summary ---
Author Organization [facility] Address [address] [place] [address] Care Team Providers Care Pharmacy Technology Instructor Name Role Phone Unknown, Provider Primary Care Provider [phone] Reason for Visit * Auth/Cert (Routine) Specialty Diagnoses / Procedures Referred By Jaja auguste Referred To Contact Diagnoses Necrotizing fasciitis ([facility]) necrotizing fasciitis Referral ID Status Reason Start Date Expiration Date Visits Re quested Visits Authorized [id number] 1 1 Encounter Details Date Type Department Care Team ([facility] st Contact Info) Description 07/31/2023 15:09 EDT Anesthesia Event [facility] OR [address], [place] [id number] Rocky Jacobs MD [address] [phone] Ginger Costa MD [address] [phone] Anesthesia Record Procedure Summary Procedure Name Responsible Anesthesiologist Anesthesia Start Time Anesthesia Stop Time Split thickness skin graft to perineum Rocky Jacobs MD 07/31/23 1509 07/31/23 1729 Events Date Time Event Comment 07/31/2023 1509 An Start The patient was re-evaluated immediately before moderate or deep sedation use, before anesthesia induction, or before the anesthesia procedure. 1509 An Start Data 1509 An Induction The patient was reevaluated immediately before moderate or deep sedation use and before anesthesia induction. 1512 An Intubation 1517 Anesthesia Ready 1551 Incision Who 2 1616 Break I, Krystin dewey CRNA, have reviewed the pertinent information of this case with another qualified anesthesia provider assuming care of this patient for the purpose of a brief (15 or 30 minutes) break. Handoff including a summary of cooper events, allergies, intraoperative medications, and fluid status. I will be readily available by mobile/pager for any additional information needed. 1721 An Extubation 1724 an stop data 1728 Handoff to RN I completed my handoff to the receiving nurse during which we: 1. Identified the patient 2. Identified the responsible provider 3. Reviewed the pertinent medical history 4. Discussed the surgical course 5. Reviewed intra-op anesthesia management and issues during anesthesia 6. Set expectations for post-procedure period 7. Allowed opportunity for questions and acknowledgement of understanding. 1729 An Stop Meds Name Total fentanyl citrate (PF) injection 250 mcg HYDROmorphone vial 2 mg/mL 1 mg midazolam (versed) 1 mg/mL 2 mL vial 1 m g lidocaine 2% (PF) injection glass vial 1 00 mg phenylephrine 1 mg/10 mL pre -filled SYRINGE (Bolus or short duration infusion) 100 mcg propOFol (DIPRIVAN) injection 250 mg rocuronium 10 mg/mL vial 90 mg sugammadex 100 mg/mL 2 mL vial 400 mg ceFAZolin (ANCEF) syringe 2 g 2 g lactated ringers (LR) infusion 0 mL * Agents Name Insp Sevoflurane Exp Sevoflurane O2 N2O Air * Blood No blood administrations on file. Lines, Drains, and Airways Type Details Placement Removal Wound 06/14/23 (came w/ on admission); 1000 (came w/ on admission); Buttock, Rectum 06/14/23 1000 by Danya Vang RN Wound 07/31/23; 1642; Dono r Site; Posterior, Right; Leg; Skin graft donor site.; N; Full thickness 07/31/23 1642 by Ellyn Echevarria RN Wound 07/31/23; 1655; [place] t; Right, Medial; Buttock; Split thickness skin graft to perineum s/p pressure sore wound site.; Y; Full thickness 07/31/23 1655 by Ellyn Echevarria RN Rectal Tube 07/07/23; 2100; Inse rted by RN; With balloon; 08/09/23; 1744 07/07/23 2100 by Chrissie Marroquin RN 08/09/23 1744 by Tonia Draper, KIESHA Urethral Catheter 07/15/23; Inserted b y RN; 14 fr; 10 ml; Yes; 08/01/23; 1400 07/15/23 0000 by Paz Barth RN 08/01/23 1400 by Juliet Alvarez, community relations assistant Vac 07/25/23; 1115; At bedside by Provider; Right; buttock; 07/31/23; 1550 07/25/23 1115 by Tonia Draper, KIESHA 07/31/23 1550 by Ellyn Echevarria, KIESHA Peripheral IV 07/29/23; 1504; 07/26 ; 24; 0.75; B Khoury Introcan; Anterior, Right; Forearm; Inserted by RN, Ultrasound Guided; 1; None; 2% Chlorhexidine with IPA; 08/01/23; 2117; Painful; No complications, Dressing applied 07/29/23 1504 by Katelyn Aparicio RN 08/01/23 2118 by Ronnie Rodriguez, KIESHA Non-Surgical Airway 07/31/23; 1534 (crea mamta via procedure documentation); 07/31/23; 1721 07/31/23 1534 by Krystin Tan, PHYSICIAN INDUSTRIAL 07/31/23 1721 by Bertram Hodge AA Peripheral IV 07/31/23; 1542 (crea mamta via procedure documentation); 18; Left; Wrist; wrist; In OR by MD; 07/31/23; 1845; Alternate access, Leaking; No complications, Dressing applied, Catheter intact 07/31/23 1542 by Krystin Tan, PHYSICIAN INDUSTRIAL 07/31/23 1845 by Elo Vang, KIESHA documented in this encounter Social History Tobacco Use Types Packs/Day Years Used Date Smoking Tobacco: Former Cigarettes 1.5 38.3 1 986 - 06/12/2023 Smokeless Tobacco: Never [facility] Utilities Answer Date Recorded In the past 12 months has [employer], gas, oil, or water [employer] threatened to shut off services in your [...] any time in the past 12 m [facility], were you homeless or living in a [...] OR Notes * Anesthesia Postprocedure Evaluation - Bertram Hodge AA - 07/31/2023 1729 EDT Patient: Della James Vital signs were reviewed with the recovery nurse. Complete vitals history is available in the Epicflowsheets. Vitals Value Taken Time BP 135/69 07/31/23 1729 Temp 36.1 07/31/23 1729 Resp 8 07/31/23 1729 Pulse From Oximetry 89 BPM 07/31/23 1729 SpO2 98 % 07/31/23 1729 Heart Rate 90 BPM 07/31/23 1729 Vitals shown include unfiled device data. Last Pain Score - Numeric Pain Level (Scale 1-10): 8 Type of Anesthesia - general Anesthesia Post Evaluation Post-procedure vitals reviewed and are stable. Level of consciousness: alert and oriented and awake Temperature status: normothermia Respiratory status: airway patent and face mask Cardiovascular status: acceptable Hydration status: adequate Nausea/Vomiting: none Pain management: adequate Post-Op Assessment: patient tolerated procedure well with no complications Patient participation: able to participate Disposition: inpatient Anesthesia Complications: No apparent anesthesia complications * Anesthesia Procedure Notes - Krystin Tan CRNA - 07/31/2023 1542 EDT Associated Order(s): Peripheral IV Placement Peripheral IV Placement Date/Time: 07/31/2023 15:42 Inserted by: Krystin Tan CRNA Placement Needle size: 18 G Laterality: left Location: wrist Local anesthetic: none Site prep: alcohol Technique: anatomical landmarks Attempts: 1 * Anesthesia Procedure Notes - Krystin Tan CRNA - 07/31/2023 1534 EDT Associated Order(s): Airway Airway Date/Time: 07/31/2023 15:12 Urgency: elective Airway not difficult General Information and Staff Patient location during procedure: OR Resident/PHYSICIAN INDUSTRIAL: Krystin Tan CRNA Performed: resident/PHYSICIAN INDUSTRIAL/AA Performed by: Krystin Tan CRNA Authorized by: Koby Lora MD Indications and Patient Condition Indications for [...] none Number of other approaches attempted: 0 * Anesthesia Preprocedure Evaluation - Sandy Bright MD - 07/29/20232051 EDT Anesthesia Preprocedure Evaluation Procedure: Split thickness skin graft to perineum Anesthesia type: General Diagnosis: Necrotizing soft tissue infection [M79.89] Patient Medical History, including Anesthesia History reviewed. Chart and Nursing Notes reviewed, including NPO status and Medication History. Additional ROS/History Findings: 52 year old female admitted on 06/13/23 with a history of tobacco use (quit 3 months ago), type 2 diabetes mellitus (HgA1C 8), necrotizing fasciitis, cardiac arrest secondary to respiratory failure on06/15/23, and hypertension who presents for split thickness skin graft to the perineum. Relevant Problems CARDIOVASCULAR (+) Cardiopulmonary arrest with successful resuscitation ([facility]) (+) Complete heart block (H[facility]) ENDO/GI (+) Type 2 diabetes mellitus (+) Type 2 diabetes mellitus with peripheral neuropathy (HCC-CMS) (+) Type 2 diabetes with complication ([facility]) History reviewed. No pertinent surgical history. Past Anesthetics [facility] 07-10-2023 Airway Final Airway Type: endotracheal airway Mask Difficulty Assessment: 1 - Easy Final Endotracheal Airway: ETT Cuffed: Yes Cormack-Lehane Classification: grade IIb - view of arytenoids or posterior of glottis only Technique Used For Successful Placement: direct laryngoscopy Devices/Methods Used in Placement: intubating stylet Insertion Site: oral Blade Type: Abdi Blade Size: 3 ETT Size (mm): 7.0 Number of Attempts at Approach: 1 Additional Comments: Poor extension of neck. Poor visualization of posterior glottic structures. Tube passed anteriorly without difficulty [facility] 06-26-2023 Airway Difficult Airway: No Final Airway Type: endotracheal airway Mask Difficulty Assessment: 2 - Oral airway inserted (2 providers 2/2 pt intubated on hospital bed) Final Endotracheal Airway: ETT Cuffed: Yes Cormack-Lehane Classification: grade I - full view of glottis Technique Used For Successful Placement: video laryngoscopy Nunn Devices/Methods Used in Placement: intubating stylet Insertion Site: oral Blade Type: Abdi Blade Size: 3 ETT Size (mm): 7.0 Number of Attempts at Approach: 1 Review of Systems Constitutional: Negative for chills and fever. HENT: Negative for sore throat. Respiratory: Negative for cough, shortness of breath and wheezing. Cardiovascular: Negative for chest pain and palpitations. Gastrointestinal: Negative for heartburn. SOCIAL HISTORY: [] None [] Current smoking [] Vaping [] Marijuana [x] Alcohol Social History Tobacco Use Smoking Status Former Current packs/day: 0.00 Average packs/day: 1.5 packs/day for 38.3 years (57.4 ttl pk-yrs) Types: Cigarettes Start date: 1985 Quit date: 06/12/2023 Years since quittin.1 Smokeless Tobacco Never Social History Substance and Sexual Activity Drug Use Not on file Social History Substance and Sexual Activity Alcohol Use None FAMILY HISTORY: []No family history of allergic reactions to anesthesia No current facility-administered medications on file prior to encounter. No current outpatient medications on file prior to encounter. Current Facility-Administered Medications Medication Route Frequency acetaminophen (TYLENOL) tablet 1,000 mg oral Q6H albuterol inhaler 180 mcg inhalation Q4H PRN alteplase (CATHFLO ACTIVASE) injection 2 mg intercatheter PRN amLODIPine (NORVASC) tablet 10 mg oral DAILY cloNIDine (CATAPRES) 0.2 mg/24 hr patch 1 Patch transdermal WEEKLY dextrose 50 % solution 12.5 g intravenous PRN docusate sodium (COLACE) capsule 200 mg oral BID enoxaparin (LOVENOX) injection 40 mg subcutaneous DAILY furosemide (LASIX) tablet 40 mg oral DAILY glucagon injection 1 mg intramuscular PRN HYDROmorphone (PF) (DILAUDID) 0.5 mg/0.5 mL syringe insulin aspart U-100 (NOVOLOG FLEXPEN) injection 4-7 Units subcutaneous TID WC insulin aspart U-100 (NOVOLOG FLEXPEN) injection subcutaneous TID WC insulin aspart U-100 (NOVOLOG FLEXPEN) injection subcutaneous QHS insulin glargine injection pen 46 Units subcutaneous DAILY L.A. INSULIN ipratropium-albuteroL (DUONEB) 0.5 mg-3 mg(2.5 mg base)/3 mL nebulizer solution 3 mL nebulization Q4H PRN lactulose (CHRONULAC) 20 gram/30 mL solution 30 mL oral Q4H lidocaine 5 % (LIDODERM) patch 2 Patch transdermal DAILY lidocaine 5 % (LIDODERM) patch 2 Patch transdermal QHS LORazepam (ATIVAN) tablet 0.5 mg oral BID melatonin tablet 6 mg oral QHS methocarbamoL (ROBAXIN) tablet 1,000 mg oral QID pqtgrqpw-coy-bmtd fum-folic ac 7.5 mg iron-400 mcg tablet 1 Tablet oral DAILY naloxone (NARCAN) injection 0.1 mg intravenous PRN nicotine (NICODERM CQ) 21 mg/24 hr patch 1 Patch transdermal DAILY oxyCODONE (ROXICODONE) immediate release tablet 5 mg oral Q4H PRN Or oxyCODONE (ROXICODONE) immediate release tablet 10 mg oral Q4H PRN QUEtiapine (SEROQUEL) tablet 25 mg oral QHS senna (SENOKOT) tablet 2 Tablet oral QHS sodium chloride soluble tablet 1,000 mg oral TID thiamine (VITAMIN B1) tablet 100 mg oral DAILY Allergies Allergen Reactions Aspirin Hives Cymbalta [Duloxetine] Other (See Comments) Depression, suicidal ideation Lyrica [Pregabalin] Nausea And Vomiting Penicillins Hives Lab Results Component Value Date WBC 6.95 07/29/2023 HGB 8.5 (L) 07/29/2023 HCT 25.0 (L) 07/29/2023 MCV 83 07/29/2023 PLT 337 07/29/2023 Lab Results Component Value Date NA 130 (L) 07/29/2023 K 4.3 07/29/2023 CL 100 07/29/2023 CO2 17 (L) 07/29/2023 Lab Results Component Value Date BUN 20 07/29/2023 Lab Results Component Value Date CREATININE 0.45 (L) 07/29/2023 Lab Results Component Value Date INR 1.0 06/15/2023 PROTIME 11.4 06/15/2023 Lab Results Component Value Date PTT 27 06/15/2023 COVID: [x] None on file No results found for: COVIDUV Blood Type: ABO Date/Time Value Ref Range Status 07/05/2023 09:17 O Final Rh Factor Date/Time Value Ref Range Status 07/05/2023 09:17 Positive Final Antibody Screen Date/Time Value Ref Range Status 07/05/2023 09:17 Negative Final Specimen Expires: Date/Time Value Ref Range Status 07/05/2023 09:17 07/08/2023 @ 23:59 Final EKG: Test Date: 2023-07-22 Pat Name: DELLA JAMES Department: [place] [address] Room: [facility] Gender: Female 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 Electronically Signed On 07-25-2023 13:47:41 EDT by KOURTNEY HERNÁNDEZ MD. ECHO: Summary Show Result Comparison Left Ventricle: The left ventricular cavity was normal in size. Left ventricular systolic function was normal with an ejection fraction of 60-65%. Left ventricular diastolic parameters were normal. Right Ventricle: The right ventricular cavity was normal in size. Right ventricular systolic function was normal. Normal RV S' >9.5cm/s. IVC/SVC: The inferior vena cava was normal in size. Cardiac Stress: [x] None on file Left Heart Cath: [x] None on file CT CHEST W CONTRAST 07/03/2023 4:38 PM [...] No enlarged mediastinal or hilar lymph nodes. The esophagus appears normal. Cardiovascular: There [...] consolidated and showing generalized low attenuation that isconcerning for pneumonia. Mucus in dependent portions of the trachea. Mild interstitial pulmonary edema and small right pleural effusion. Circumferential left pleural effusion which could be parapneumonic Multiple bilateral rib fractures and lower sternal fracture. Mild coronary artery atherosclerotic calcification. BP (!) 155/71 Pulse 72 Temp 36.7 ??C (98 ??F) (Oral) Resp 20 Ht 160 cm (63) Wt 82.8 kg (182 lb 8.7 oz) SpO2 99% BMI 32.34 kg/m?? NPO Status: Liquids: [x] Prior to midnight Solids: [x] Prior to midnight Home Acetaminophen: Yes [] No []. If, yes: Time: Physical Exam Airway Mallampati: III TM distance: <3 FB Neck ROM: full Cardiovascular - normal exam Rhythm: regular Rate: normal Dental (+) upper dentures, lower dentures Pulmonary - normal exam Breath sounds clear to auscultation Abdominal (-) obese Anesthesia Plan ASA 3 Anesthesia Type - general, to include intravenous induction. Block for post-op pain? No Anesthesia plan and risks discussed. Informed consent obtained from patient. Specific risks discussed were nausea and vomiting. Code status discussed? No The preoperative history and physical which was performed within 30 days of this procedure, has been reviewed and the clinically appropriate elements of the physical examination have been repeated. There are no changes to the documented history and physical or, if so, such changes are documented inthis note PAT Note Notes from 06/29/23 through 07/29/23 No notes of this type exist for this encounter. documented in this encounter Plan of Treatment Not on file documented as of this encounter Procedures Procedure Name Priority Date/Time Associated Diagnosis Comments ANESTHESIA PERIPHERAL IV PLACEMENT Routine 07/31/2023 15:42 EDT ANESTHESIA INTUBATION Routine 07/31/2023 15:12 EDT documented in this encounter Results * ANESTHESIA PERIPHERAL IV PLACEMENT (07/31/2023 15:42 EDT) Narrative Krystin Tan CRNA - 07/31/2023 15:42 EDT Krystin Tan CRNA ? 07/31/2023 15:43 Peripheral IV Placement Date/Time: 07/31/2023 15:42 Inserted by: Krystin Tan CRNA Placement Needle size: 18 G Laterality: left Location: wrist Local anesthetic: none Site prep: alcohol Technique: anatomical landmarks Attempts: 1 Koby Lora MD ANESTHESIA ORDERA BLES * AR AN ELECTIVE ENDOTRACHEAL AIRWAY (07/31/2023 15:12 EDT) Narrative Krystin Tan CRNA - 07/31/2023 15:12 EDT Krystin Tan CRNA ? 07/31/2023 15:34 Airway Date/Time: 07/31/2023 15:12 Urgency: elective Airway not difficult General Information and Staff Patient location during procedure: OR Resident/PHYSICIAN INDUSTRIAL: Krystin Tan CRNA Performed: resident/PHYSICIAN INDUSTRIAL/AA Performed by: Krystin Tan CRNA Authorized by: [...] 0 Koby Lora MD ANESTHESIA ORDERA BLES documented in this encounter Visit Diagnoses Not on filedocumented in this encounter Administered Medications Inactive Administered Medications - up to 3 most recent administrations Medication Order MAR Action Action Date Dose Rate Site ceFAZolin (ANCEF) syringe 2 g 2 g, intravenous, Administer over 5 Minutes, PRE-OP ONCE, 1 dose, On Sat07/31/23 at 0715, Routine, Preprocedure Given 07/31/2023 15:13 EDT 2 g fentaNYL citrate (PF) injection intravenous, PRN, Starting on Sat07/31/23 at 1509, Until Sat07/31/23 at 1729, Routine, Anesthesia Intraprocedure Given 07/31/2023 17:13 EDT 50 mcg Given 07/31/2023 16:59 EDT 50 mcg Given 07/31/2023 16:30 EDT 50 mcg HYDROmorphone (DILAUDUD) 2 mg/mL injection intravenous, PRN, Starting on Sat07/31/23 at 1714, Until Sat07/31/23 at 1729, Routine, Anesthesia Intraprocedure Given 07/31/2023 17:22 EDT 0.6 mg Given 07/31/2023 17:14 EDT 0.4 mg lactated ringers (LR) infusion intravenous, FA IP EQF CONTINUOUS PRN FOR ONE STEP MEDS, Starting on Sat07/31/23 at 1506, Until Sat07/31/23 at 1729, Routine, Anesthesia Intraprocedure Rate Change 07/31/2023 17:26 EDT 800 mL/hr New Bag 07/31/2023 15:06 EDT 50 mL/hr lidocaine (PF) 20 mg/mL (2 %) injection intravenous, PRN, Starting on Sat07/31/23 at 1509, Until Sat07/31/23 at 1729, Routine, Anesthesia Intraprocedure Given 07/31/2023 15:09 EDT 100 mg midazolam (PF) (VERSED) injection intravenous, PRN, Starting on Sat07/31/23 at 1509, Until Sat07/31/23 at 1729, Routine, Anesthesia Intraprocedure Given 07/31/2023 15:09 EDT 1 mg phenylephrine HCl in 0.9% NaCl injection intravenous, PRN, Starting on Sat07/31/23 at 1557, Until Sat07/31/23 at 1729, Routine, Anesthesia Intraprocedure Given 07/31/2023 15:57 EDT 100 mcg propOFol (DIPRIVAN) injection intravenous, PRN, Starting on Sat07/31/23 at 1509, Until Sat07/31/23 at 1729, Routine, Anesthesia Intraprocedure Given 07/31/2023 17:12 EDT 50 mg Given 07/31/2023 17:05 EDT 50 mg Given 07/31/2023 15:09 EDT 150 mg rocuronium (ZEMURON) injection intravenous, PRN, Starting on Sat07/31/23 at 1509, Until Sat07/31/23 at 1729, Routine, Anesthesia Intraprocedure Given 07/31/2023 16:27 EDT 20 mg Given 07/31/2023 15:09 EDT 70 mg sugammadex (BRIDION) injection intravenous, PRN, Starting on Sat07/31/23 at 1722, Until Sat07/31/23 at 1729, Routine, Anesthesia Intraprocedure Given 07/31/2023 17:22 EDT 400 mg documented in this encounter Care Teams Pharmacy Technology Instructor Relationship Specialty Start Date End Date Unknown, Provider, PCP - General 06/13/23 documented as of this encounter
--- OUTSIDE RECORDS SUMMARY | 2023-09-11 15:33 | XMS_ITS | Encounter Summary ---
Author Organization [facility] Address [address] [place] [address] Care Team Providers Care Technical Operations Manager Name Role Phone Unknown, Provider Primary Care Provider [phone] Reason for Visit * Auth/Cert (Routine) Specialty Diagnoses / Procedures Referred By Jaja auguste Referred To Contact Diagnoses Necrotizing fasciitis ([facility]) necrotizing fasciitis Referral ID Status Reason Start Date Expiration Date Visits Re quested Visits Authorized [id number] 1 1 Encounter Details Date Type Department Care Team ([facility] Contact Info) Description 07/04/2023 5:56 EDT Anesthesia Event [facility] ANESTHESIA [address] [place] [address] Tulio Garrison MD [address] [place] [phone] Anesthesia Record Procedure Summary Procedure Name Responsible Anesthesiologist Anesthesia Start Time Anesthesia Stop Time INTUBATION Events No events on file. Meds * Agents No agents on file. * Blood No blood administrations on file. Lines, Drains, and Airways Type Details Placement Removal Wound 06/14/23 (came w/ on admission); 1000 (came w/ on admission); Buttock, Rectum 06/14/23 1000 by Danya Vang, elevator constructor helper 07/31/23; 1642; Dono r Site; Posterior, Right; Leg; Skin graft donor site.; N; Full thickness 07/31/23 1642 by Ellyn Echevarria RN Wound 07/31/23; 1655; Mac t; Right, Medial; Buttock; Split thickness skin graft to perineum s/p pressure sore wound site.; Y; Full thickness 07/31/23 1655 by Ellyn Echevarria RN documented in this encounter Social History Tobacco Use Types Packs/Day Years Used Date Smoking Tobacco: Former Cigarettes 1.5 38.3 1 986 - 06/12/2023 Smokeless Tobacco: Never [facility] Utilities Answer Date Recorded In the [...] place to sleep or slept in a penitentiary (including now)? No 06/19/2023 Housing Stability Vital Sign Answer Osvaldo e Recorded In the last 12 months, was t here a time when you were not able to pay the mortgage or rent on time? Yes 07/10/2023 In the past 12 months, how m any times have you moved where you were living? 0 07/10/2023 At any time in the past 12 m [facility], were you homeless or living in a penitentiary (including now)? No 07/10/2023 Interpersonal Safety Answer [...] of this encounter OR Notes * Anesthesia Procedure Notes - Tulio Garrison MD - 07/04/2023 0557 EDT Associated Order(s): Airway Airway Date/Time: 07/04/2023 5:20 Urgency: emergent Airway not difficult General Information and Staff Anesthesiologist: Rocky Jacobs MD Resident/POWER HOUSE CONTROL ROOM OPERATOR: Tulio Garrison MD Performed: resident/POWER HOUSE CONTROL ROOM OPERATOR/AA Performed by: Tulio Garrison MD Authorized by: Tulio Garrison MD Consent for Airway (if performed for an anesthetic, see related documentation for consents) Patient identity confirmed: verbally with patient Consent: Verbal consent obtained. Consent given by: patient Indications and Patient Condition Preoxygenated: yes Final Airway Details Final airway type: endotracheal airway Successful airway: ETT Cuffed: yes Successful intubation technique: video laryngoscopy [place] Facilitating devices/methods: intubating stylet and cricoid pressure Endotracheal tube insertion site: oral Blade: Storz CMAC D-Blade Blade size: #3 ETT size (mm): 8.0 Cormack-Lehane Classification: view obtained with video laryngoscopy Placement verified by: chest auscultation, capnometry and palpation of cuff Measured from: lips ETT to lips (cm): 21 Number of attempts at approach: 1 documented in this encounter Plan of Treatment Not on file documented as of this encounter Procedures Procedure Name Priority Date/Time Associated Diagnosis Comments ANESTHESIA INTUBATION Routine 07/04/2023 5:20 EDT ANESTHESIA INTUBATION Routine 07/04/2023 5:20 EDT documented in this encounter Results * MT AN EMERGENT ENDOTRACHEAL AIRWAY, MT ANESTHESIA NON-TIMED PLACEHOLDER (07/04/2023 5:20 EDT) Narrative Tulio Garrison MD - 07/04/2023 5:20 EDT Tulio Garrison MD ? 07/04/2023 ??5:59 Airway Date/Time: 07/04/2023 5:20 Urgency: emergent Airway not difficult General Information and Staff Anesthesiologist: Rocky Jacobs MD Resident/POWER HOUSE CONTROL ROOM OPERATOR: Tulio Garrison MD Performed: resident/POWER HOUSE CONTROL ROOM OPERATOR/AA Performed by: Tulio Garrison MD Authorized by: Tulio Garrison MD ?? Consent for Airway (if performed for an anesthetic, see related documentation for consents) Patient identity confirmed: verbally with patient Consent: Verbal consent obtained. Consent given by: patient Indications and Patient Condition Preoxygenated: yes Final Airway Details Final airway type: endotracheal airway Successful airway: ETT Cuffed: yes Successful intubation technique: video laryngoscopy [place] Facilitating devices/methods: intubating stylet and cricoid pressure Endotracheal tube insertion site: oral Blade: Storz CMAC D-Blade Blade size: #3 ETT size (mm): 8.0 Cormack-Lehane Classification: view obtained with video laryngoscopy Placement verified by: chest auscultation, capnometry and palpation of cuff Measured from: lips ETT to lips (cm): 21 Number of attempts at approach: 1 Tulio Garrison MD ANESTHESIA ORDERABLE S documented in this encounter Visit Diagnoses Not on filedocumented in this encounter Care Teams Technical Operations Manager Relationship Specialty Start Date End Date Unknown, ProviderMD PCP - General 06/13/23 documented as of this encounter
--- OUTSIDE RECORDS SUMMARY | 2023-09-11 15:38 | XMS_ITS | Encounter Summary ---
Author Organization [facility] Address [address] [place] [address] Care Team Providers Care Data Processing Mechanic Name Role Phone Unknown, Provider Primary Care Provider Reason for Visit * Auth/Cert (Routine) Specialty Diagnoses / Procedures Referred By Jaja auguste Referred To Contact Diagnoses Necrotizing fasciitis ([facility]) necrotizing fasciitis Referral ID Status Reason Start Date Expiration Date Visits Re quested Visits Authorized [id number] 1 1 Encounter Details Date Type Department Care Team ([facility] st Contact Info) Description 06/26/2023 21:16 EDT Anesthesia Event [facility] OR [address] [place], [place] [address] Luisa Humphries DO [address] [phone] Reese Franco, EXHIBITIONS CURATOR [address] [phone] Anesthesia Record Procedure Summary Procedure Name Responsible Anesthesiologist Anesthesia Start Time Anesthesia Stop Time debridement of perianal wound, wound vac placement Luisa Humphries DO 06/26/23211506/26/23 2306 Events Date Time Event Comment 06/26/20232115 An Start The patient was re-evaluated immediately before moderate or deep sedation use, before anesthesia induction, or before the anesthesia procedure. 2115 An Start Data 2115 An Induction The patient was reevaluated immediately before moderate or deep sedation use and before anesthesia induction. 2129 An Intubation 2142 Anesthesia Ready 2254 An Extubation 2258 an stop data 2305 Handoff to RN I completed my handoff to the receiving nurse during which we: 1. Identified the patient 2. Identified the responsible provider 3. Reviewed the pertinent medical history 4. Discussed the surgical course 5. Reviewed intra-op anesthesia management and issues during anesthesia 6. Set expectations for post-procedure period 7. Allowed opportunity for questions and acknowledgement of understanding. 2305 An Stop Meds Name Total ePHEDrine pre-filled syringe 10 mg fentanyl citrate (PF) injection 100 mcg lidocaine 2% (PF) injection glass vial 5 0 mg phenylephrine 1 mg/10 mL pre -filled SYRINGE (Bolus or short duration infusion) 400 mcg propOFol (DIPRIVAN) injection 240 mg rocuronium 10 mg/mL vial 50 mg sugammadex 100 mg/mL 2 mL vial 200 mg phenylephrine pre-made bag 20 mg/250 mL 2,140 mcg lactated ringers (LR) infusion 700 mL * Agents Name Insp Sevoflurane Exp Sevoflurane O2 N2O Air * Blood No blood administrations on file. Lines, Drains, and Airways Type Details Placement Removal Wound 06/14/23 (came w/ on admission); 1000 (came w/ on admission); Buttock, Rectum 06/14/23 1000 by Danay Vang, KIESHA Urethral Catheter 06/13/23; Patient arrived with LDA; Critically ill and the need for every 1-2 hour output measurements, Assist in healing open sacral or perineal wound healing in incontinent patient; 07/15/23; Per protocol 06/13/23 0000 by Harper Hutchinson, KIESHA 07/15/23 0000 by Paz Barth, KIESHA Rectal Tube 06/13/23; Patient arrived with LDA; With balloon; 07/04/23; (1999 Rectal tube fully inflated and out upon assessment) 06/13/23 0000 by Harper Hutchinson RN 07/04/23 0000 by Karley Patton, KIESHA NG/OG Tube 06/20/23; 1330; Inserted by RN; Nasogastric; 14 fr; Left nostril; 75 cm; Yes; 06/29/23; 1415 06/20/23 1330 by Ximena Rodriguez RN 06/29/23 1415 by Maria L Diane, scullion chief Vac 06/24/23; 0800; At bedside by Provider; Right; buttock; 06/29/23 06/24/23 0800 by Tami Hampton RN 06/29/23 0000 by Sandy Garza RN Peripheral IV 06/25/23; 2336; 07/02/23; 20; 1.25; B Khoury Introcan; Anterior, Left, Distal; Forearm; Inserted by RN, Ultrasound Guided; 1; None; 2% Chlorhexidine with IPA; 06/29/23; 0040; Removed unobserved 06/25/23 2336 by Ashia Diehl RN 06/29/23 0040 by Juliet Gomez RN Peripheral IV 06/25/23; 2336; 07/02/23; 20; 1.25; B Khoury Introcan; Anterior, Left, Proximal; Forearm; Inserted by RN, Ultrasound Guided; 1; None; 2% Chlorhexidine with IPA; 06/29/23; 0040; Removed unobserved 06/25/23 233 by Ashia Diehl RN 06/29/23 0040 by Juliet Gomez, KIESHA Non-Surgical Airway 06/26/23; 2143 (gia oleary via procedure documentation); 06/26/23; 22506/26/23 214 by Mahendra Manning 06/26/23 225 by Maehndra Manning Wound Vac 06/26/23; 222; In O R by ; Right, Medial; buttock; 07/10/23; 1127 06/26/23 222 by Chastity Rivera RN 07/10/23 112 by Liat Denise, KIESHA documented in this encounter Social History Tobacco Use Types Packs/Day Years Used Date Smoking Tobacco: Never Assessed PRAPARE - Transportation Answer Date Re corded In the past 12 months, has l ack of transportation kept you from medical appointments or from getting medications? Yes 05/27 In the past 12 months, has l ack of transportation kept you from meetings, work, or from getting things needed for daily living? Yes 06/19/2023 Housing Stability Vital Sign Answer Osvaldo [...] place to sleep or slept in a senior care (including now)? No 06/19/2023 Sex and Gender Information Value Date Recorded Sex Assigned at Not on file Gender Identity Female 06/15/2023 0:35 EDT Sexual Orientation Not on file documented as of this encounter OR Notes * Anesthesia Postprocedure Evaluation - Mahendra Manning - 06/26/2023 2306 EDT Patient: Jennifer James Vital signs were reviewed with the recovery nurse. Complete vitals history is available in the Epicflowsheets. Vitals Value Taken Time BP 139/114 06/26/23 2306 Temp 36.6 06/26/23 2306 Resp 24 06/26/23 2306 Pulse From Oximetry 87 06/26/23 2306 SpO2 96 06/26/23 2306 Heart Rate 87 06/26/23 2306 Last Pain Score - Numeric Pain Level (Scale 1-10): 7 Type of Anesthesia - general Anesthesia Post Evaluation Post-procedure vitals reviewed and are stable. Level of consciousness: awake Temperature status: normothermia and patient returned to pre-procedure baseline Respiratory status: airway patent and stable Cardiovascular status: stable Hydration status: adequate Nausea/Vomiting: none Pain management: adequate Post-Op Assessment: patient tolerated procedure well with no complications Patient participation: able to participate Disposition: outpatient/home Anesthesia Complications: No apparent anesthesia complications * Anesthesia Procedure Notes - Mahendra Manning - 06/26/2023 2144 EDT Associated Order(s): Airway Airway Date/Time: 06/26/2023 21:30 Urgency: elective Airway not difficult General Information and Staff Patient location during procedure: OR Anesthesiologist: Luisa Humphries DO Resident/EXHIBITIONS CURATOR: Mahendra Manning Performed: resident/EXHIBITIONS CURATOR/AA Performed by: Mahendra Manning Authorized by: Luisa Humphries DO Indications and Patient Condition Indications for airway [...] 19 Number of attempts at approach: 1 * Anesthesia Preprocedure Evaluation - Mahendra Manning - 06/26/20231928 EDT Images from the original note were not included. Anesthesia Preprocedure Evaluation Patient Medical History, including Anesthesia History reviewed. Chart and Nursing Notes reviewed, including NPO status and Medication History. Additional ROS/History Findings: 52 yo F w/PMHx of HTN and T2DM who presented with necrotizing fasciitis, S/p multiple debridements.Post-operative bradycardic arrest with ROSC after 2 rounds CPP (cardiology suspect 2/2 third degreeHB from manipulation of ETT). Coded a second time following extubation while she was on dexmedetomidine. Recovered normal cardiac function, EP cards signed off. Hemodynamically stable in SICU, on NC, normotensive. Previous airway: Mask ventilation w/oral airway, VL [place]ath #3, cricoid pressure - IIa view TTE 06/19/23 Left Ventricle: The left ventricular cavity was normal in size. Left ventricular systolic function was normal with an ejection fraction of 60-65%. Left ventricular diastolic parameters were normal. Right Ventricle: The right ventricular cavity was normal in size. Right ventricular systolic function was normal. Normal RV S' >9.5cm/s. IVC/SVC: The inferior vena cava was normal in size. Allergies Allergen Reactions Aspirin Hives Cymbalta [Duloxetine] Other (See Comments) Depression, suicidal ideation Lyrica [Pregabalin] Nausea And Vomiting Penicillins Hives Review of Systems Constitutional: Negative for chills. HENT: Negative for congestion, sinus pain and sore throat. Respiratory: Positive for cough. Negative for shortness of breath and wheezing. Cardiovascular: Negative for chest pain and palpitations. Gastrointestinal: Negative for heartburn, nausea and vomiting. Musculoskeletal: Negative for neck pain. Neurological: Negative for seizures. Endo/Heme/Allergies: Does not bruise/bleed easily. No past medical history on file. Relevant Problems CARDIOVASCULAR (+) Cardiopulmonary arrest with successful resuscitation (HCC-CMS) (+) Complete heart block (HCC-CMS) ENDO/GI (+) Type 2 diabetes mellitus Physical Exam Airway Mallampati: III TM distance: >3 FB Neck ROM: full Cardiovascular - normal exam Rhythm: regular Rate: normal Dental - normal exam Pulmonary (+) rhonchi, decreased breath sounds Abdominal (+) obese Anesthesia Plan ASA 4 Anesthesia Type - general, to include intravenous induction. - via epidural Anesthesia plan and risks discussed. Informed consent obtained from patient. Use of blood products discussed with patient who consented to blood products. Specific risks discussed were nausea, dental injury, vomiting, , myocardial infarction, bleeding, headache, ICU placement, post-op intubation and stroke. Code status discussed? No The preoperative history and physical which was performed within 30 days of this procedure, has been reviewed and the clinically appropriate elements of the physical examination have been repeated. There are no changes to the documented history and physical or, if so, such changes are documented inthis note PAT Note Notes from 05/27/23 through 06/26/23 No notes of this type exist for this encounter. documented in this encounter Plan of Treatment Not on file documented as of this encounter Procedures Procedure Name Priority Date/Time Associated Diagnosis Comments ANESTHESIA INTUBATION Routine 06/26/2023 21:30 EDT documented in this encounter Results * ME AN ELECTIVE ENDOTRACHEAL AIRWAY (06/26/2023 21:30 EDT) Narrative Mahendra Manning - 06/26/2023 21:30 EDT Mahendra Manning ? 06/26/2023 21:44 Airway Date/Time: 06/26/2023 21:30 Urgency: elective Airway not difficult General Information and Staff Patient location during procedure: OR Anesthesiologist: Luisa Humphries DO Resident/EXHIBITIONS CURATOR: Mahendra Manning Performed: resident/EXHIBITIONS CURATOR/AA Performed by: Mahendra Manning Authorized by: Luisa [...] 1 Luisa Humphries DO ANESTHESIA ORDERABL ES documented in this encounter Visit Diagnoses Not on filedocumented in this encounter Administered Medications Inactive Administered Medications - up to 3 most recent administrations Medication Order MAR Action Action Date Dose Rate Site ePHEDrine injection 25 mg/5 mL syringe intravenous, PRN, Starting on Sat06/26/23 at 2205, Until Sat06/26/23 at 2306, Routine, Anesthesia Intraprocedure Given 06/26/2023 22:05 EDT 10 mg fentaNYL citrate (PF) injection intravenous, PRN, Starting on Sat06/26/23 at 2126, Until Sat06/26/23 at 2306, Routine, Anesthesia Intraprocedure Given 06/26/2023 22:12 EDT 50 mcg Given 06/26/2023 21:26 EDT 50 mcg lactated ringers (LR) infusion intravenous, FA IP EQF CONTINUOUS PRN FOR ONE STEP MEDS, Starting on Sat06/26/23 at 2127, Until Sat06/26/23 at 2306, Routine, Anesthesia Intraprocedure New Bag 06/26/2023 21:27 EDT lidocaine (PF) 20 mg/mL (2 %) injection intravenous, PRN, Starting on Sat06/26/23 at 2126, Until Sat06/26/23 at 2306, Routine, Anesthesia Intraprocedure Given 06/26/2023 21:26 EDT 50 mg phenylephrine HCl in 0.9% NaCl (NEO_SYNEPHRINE) 20 mg/250 mL (80 mcg/mL) infusion solution intravenous, FA IP EQF CONTINUOUS PRN FOR ONE STEP MEDS, Starting on Sat06/26/23 at 2132, Until Sat06/26/23 at 2306, Routine, Anesthesia Intraprocedure Restarted 06/26/2023 22:42 EDT 40 mcg/min 30 mL/hr Rate Change 06/26/2023 22:23 EDT 40 mcg/min 30 mL/hr Restarted 06/26/2023 22:19 EDT 20 mcg/min 15 mL/hr phenylephrine HCl in 0.9% NaCl injection intravenous, PRN, Starting on Sat06/26/23 at 2205, Until Sat06/26/23 at 2306, Routine, Anesthesia Intraprocedure Given 06/26/2023 22:56 EDT 100 mcg Given 06/26/2023 22:42 EDT 100 mcg Given 06/26/2023 22:28 EDT 100 mcg propOFol (DIPRIVAN) injection intravenous, PRN, Starting on Sat06/26/23 at 2127, Until Sat06/26/23 at 2306, Routine, Anesthesia Intraprocedure Given 06/26/2023 22:44 EDT 20 mg Given 06/26/2023 22:36 EDT 20 mg Given 06/26/2023 22:30 EDT 60 mg rocuronium (ZEMURON) injection intravenous, PRN, Starting on Sat06/26/23 at 2127, Until Sat06/26/23 at 2306, Routine, Anesthesia Intraprocedure Given 06/26/2023 21:27 EDT 50 mg sugammadex (BRIDION) injection intravenous, PRN, Starting on Sat06/26/23 at 2233, Until Sat06/26/23 at 2306, Routine, Anesthesia Intraprocedure Given 06/26/2023 22:33 EDT 200 mg documented in this encounter Care Teams Data Processing Mechanic Relationship Specialty Start Date End Date Unknown, Provider, PCP - General 06/13/23 documented as of this encounter
--- OUTSIDE RECORDS SUMMARY | 2023-09-11 15:38 | XMS_ITS | Encounter Summary ---
Author Organization [facility] Address [address] [place] [id number] Care Team Providers Care Manager Motor Name Role Phone Unknown, Provider Primary Care Provider Reason for Visit * Auth/Cert (Routine) Specialty Diagnoses / Procedures Referred By Jaja auguste Referred To Contact Diagnoses Necrotizing fasciitis ([facility]) necrotizing fasciitis Referral ID Status Reason Start Date Expiration Date Visits Re quested Visits Authorized [id number] 1 1 Encounter Details Date Type Department Care Team (Late st Contact Info) Description 06/26/2023 20:30 EDT - 06/26/2023 22:25 EDT Surgery [facility] OR [address] [place] [id number] Efraín Rueda MD [address] [place] [address], [facility], [address] [place] [phone] debridement of perianal wound, wound vac placement [14754 (CPT??)] Surgery Details Date/Time Status Location OR Service Patient Class Case Cl ass Case Type Trauma Case? 06/26/232029 Posted [facility] [place] [facility] [place] Trauma Inpatient G - Less than 48 hours Panel 1 Procedure LRB Anes Op Region Wound Class Comments debridement of perianal wound, wound vac placement N/A General Class IV/ Dirty or Infected Surgeon Surgeon Role Service Panel Zahira Veras MD Resident - Assisting General 1 Efraín Rueda MD Primary Trauma 1 documented in this encounter Social History Tobacco Use Types Packs/Day Years Used Date Smoking Tobacco: Former Cigarettes 1.5 38.3 1 986 - 06/12/2023 Smokeless Tobacco: Never Tobacco Cessation:Counseling Given: Not Answered PRAPARE - Transportation Answer Date Re corded [...] in a residential (including now)? No 06/19/2023 Sex and Gender Information Value Date Recorded Sex Assigned at Not on file Gender Identity Female 06/15/2023 0:35 EDT Sexual Orientation Not on file documented as of this encounter Last Filed Vital Signs Vital Sign Reading Time Taken Comments Blood Pressure 139/114 06/26/20232104 EDT Pulse 82 06/14/20232012 EDT Temperature 36.6 ??C (97.9 ??F) 06/26/20232104 EDT Respiratory Rate 20 06/26/20232104 EDT Oxygen Saturation 96% 06/26/20232104 EDT Inhaled Oxygen Concentration - - Weight 86.2 kg (190 lb) 06/19/2023 0900 EDT Height 160 cm (5' 3) 06/19/2023 0900 EDT Body Mass Index 31.54 07/31/2023 1029 EDT documented in this encounter Functional Status Functional Status Response [...] hospitalized 06/30/2023 documented as of this encounter Discharge Summaries * Meaghan Ramírez PA-C - 08/22/2023 0750 EDT Surgery Discharge Summary Primary Care Provider: UNKNOWN,PROVIDER Attending Physician: Moo Monique MD Admit Date: 06/13/2023 Discharge Date: 08/22/23 Disposition: Home with home health Problems and Procedures Admitting Diagnosis: necrotizing fasciitis Principal/Final Diagnosis: same Additional Problems Managed in the Hospital Active Hospital Problems Diagnosis Date Noted *Necrotizing fasciitis ([facility]) 06/13/2023 Type 2 diabetes with complication ([facility]) 07/12/2023 Type 2 diabetes mellitus with peripheral neuropathy ([facility]) 07/12/2023 Respiratory insufficiency 07/04/2023 Insufficiency, respiratory, acute 06/26/2023 Electrolyte and fluid disorder 06/26/2023 Acute respiratory failure with hypoxia ([facility]) 06/26/2023 Palliative care by specialist 06/20/2023 Complete heart block ([facility]) 06/17/2023 Cardiopulmonary arrest with successful resuscitation ([facility]) 06/15/2023 Type 2 diabetes mellitus 06/15/2023 Necrotizing soft tissue infection 06/14/2023 Resolved Hospital Problems No resolved problems to display. Principal Procedure: debridement of right buttock necrotizing fasciitis and primary repair of rectal injury Date: 06/14/2023 Secondary Procedures: Nec fasc debridement x2 (OSH) Serial debridement, repair rectal injury (06/14) Additional debridement, washout (06/16) Additional debridement, washout, partial closure (06/18) Washout, wound vac change (06/25) Wound vac change with ACELL in OR (07/09) Split thickness skin graft (07/30) Gen: NAD, AAO Head: NCAT ENT: Moist mucous membranes Neck: Ranging cervical spine spontaneously Pulm: CTAB, no w/r/r CV: RRR Abd: NABS, NT, ND, soft Extremities: WWP, No LE Edema, No deformities; moving all extremities spontaneously Skin: No overt rashes on exposed skin Wounds/incision: C/D/I, mepilex Ag to donor graft site, 4x4 in place with tape and mesh briefs to buttock graft site Neuro: Mentating appropriately; speech is fluent; facial musculature is symmetrical Psych: Appropriate mood and affect Hospital Course Della Browning is a 53 y.o. female with a history of HTN and T2DM [facility] with right gluteal necrotizing fasciitis. On 06/13 she taken to the operating room for debridement of the NSTI and was found to have a rectal injury that was primarily repaired. She remained intubated and on pressors and was transferred to the SICU to recover. She was started on clindamycin. Her immediate postoperative course was also complicated by bradycardic arrest and complete heart block for which ROSC was achieved following two rounds of CPR. Cardiology was consulted on 06/14. They recommended weaning Precedex and transvenous pacing wires. On 06/14, she was extubated. She had a second episode of bradycardic arrest on the morning of 06/15 and ROSC wasachieved following two rounds of CPR. She was subsequently reintubated, sedated, and started on a ketamine drip. On 06/15, her clindamycin was stopped and tube feeds were started. On 06/16 and 06/18, she went back to the operating room for repeat debridements. Palliative care was consulted on 06/19. On 06/20, a wound vac was placed over the NSTI. She was successfully extubated. On 06/23, she was transferred to the floor. On 06/24, she unfortunately had an acute desaturation event and was urgently transferred to the SICUand placed on BIPAP, after which she significantly improved. She had a repeat debridement on 06/25 with wound vac placement, after which she recovered in PACU before being sent to the floor. On 06/28/23 she tolerated a bedside wound vac change. On 06/30/23 Holden was taking in enough PO that her DAVID tube was removed. On 07/01/23 she required diuresis for coarse breath sounds and desaturation with good improvement she also underwent a bedside wound vac change for which she had ACELL placement to the wound bed with a commercial sales representative from their company. On 07/02 she was readmitted to the SICU with worsening shortness of breath and hypoxemia in the context of poor airway clearance and large radiologic evidence of a likely left mainstem mucous plugging and underwent Mucous clearance with respiratory therapy guided vest treatment, followed by bronchoscopy with evacuation of left mainstem mucous plug. She ultimately was intubated for increased oxygen requirement and subsequently extubated on 07/04. Since returning to the floor Holden has undergone serial wound vac changes at the bed side, she is oxygenating well on room air. She was brought back to the OR on 07/10/2023 for further I&D of her perineum with replacement of the wound VAC and ACell treatment. Postoperatively she tolerated bedside wound VAC changes. On 07/30 she returned to the OR for a split thickness graft to her perineum. She has done well with since this time with excellent take in her graft and healthy healing of her donor site. On the day of her discharge PT felt she was well enough to return home with home health, she was afebrile, tolerating a diet, maintaining good hygiene and felt ready to DC. We will need to see her back in clinic in the next few weeks. She was given instructions and materials for wound care at home.She left prior to having her wound dressings changed at bedside. While grabbing supplies for wound care changes at bedside she left. She reported to nursing prior to leaving that her ride was in a nobles and could not wait for additional wound changes, or waiting for her medications from the pharmacy. Re-routed prescriptions to [facility] in [facility]. Allergies and Immunizations Allergies Allergen Reactions Apple Juice Hives Hives with juice only, able to eat apples Aspirin Hives Cymbalta [Duloxetine] Other (See Comments) Depression, suicidal ideation Lyrica [Pregabalin] Nausea And Vomiting Penicillins Hives There is no immunization history on file for this patient. Transition of Care Plans Condition at Discharge Good Assessment at Discharge Vital signs: Patient Vitals for the past 12 hrs: BP Resp Temp SpO2 O2 Flow Rate (L/min) O2 Device 08/22/23 0700 -- -- -- -- 0 l/min None 08/22/23 0417 126/55 18 36.5 ??C (97.7 ??F) 97 % -- -- 08/21/232039 127/75 20 36.8 ??C (98.3 ??F) -- -- None Results Pending at Discharge Test results still pending from this admission None I/O: Intake/Output Summary (Last 24 hours) at 08/22/2023 0750 Last data filed at 08/21/2023 2148 Gross per 24 hour Intake 1920 ml Output -- Net 1920 ml I&O By Type - 3 Shifts Including Current In: 960 [P.O.:960] Out: - Labs: Recent Labs 08/22/23 0543 WBC 9.52 RBC 3.19* HGB 8.8* HCT 26.2* MCV 82 MCH 27.6 MCHC 33.6 PLT 317 NEUTROABS 6.55 Recent Labs 08/22/23 0543 NA 134* K 4.4 CL 99 CO2 22 BUN 30* CREATININE 0.74 CALCIUM 9.9 No results for input(s): PROTIME, INR, PTT in the last 72 hours. No results for input(s): TBIL, ALKPHOS, AST, ALT, LIPASE, AMYLASE in the last 72 hours. No results for input(s): PHISTAT, PCOISTAT, POISTAT, POCTCO2, X8GRMMHE, POCFIO2 in the last 72 hours. No results for input(s): CK, MB, CKMBINDEX, TROPONINI in the last 72 hours. Discharge Follow Up Home with Home Health for Physical Therapy, longterm ACS follow up in clinic PCP follow up for DMT2, hypertension, and chronic medical conditions. Follow-up appointments and procedures Appointment Discharge Instructions Please follow up with your PCP as soon as you can schedule an appointment. You are being dischargedon new medications for glucose control, blood pressure, as well as pain control and they will assist you with refills. Authorizing Provider: Meaghan Ramírez PA-C Please notify your doctor for the following symptoms: Dizziness or fainting Fever greater than 100.5 or chills Increased or new pain Nausea or vomiting Pain unrelieved by medication Recurrence of symptoms that brought you to the hospital Authorizing Provider: Meaghan Ramírez PA-C Quality Discharge Instructions We are currently collecting quality data on patients having surgery. You may receive a phone call, email, and/or letter about your surgery asking you a series of follow up questions to evaluate specifics aspects of your care. Thank you for your participation. Authorizing Provider: Meaghan Raímrez PA-C Amb Consult/Follow Up Acute Care Surgery/Trauma/Burn Reason for Request: p/o STSG 07/30. Authorizing Provider: Meaghan Ramírez PA-C Amb Consult/Follow Up Primary Care Physician Outside of Network Reason for Request: hospital discharge, new insulin, metformin, hypertension medications and pain medications Authorizing Provider: Meaghan Ramírez PA-C [facility] I certify that this patient is under my care and that I, or another Medicare allowed practitioner (DO DANELLE, MADELINE) working with me, had a lwom-op-zumc encounter with this patient on this date: 08/22/2023 The discharge summary or progress note will provide further details that support the need for the home health services and the plan of care.: Yes Enter the allowed practitioner (DO DANELLE, MADELINE) who will provide oversight of this patient's home heatlh care needs and plan of care: PCP, Community health clinic Some payers require a patient to be homebound to qualify for home health services. Homebound definition: Absences from home are infrequent or for relatively short duration (such as for medical appointments). Is patient HOMEBOUND?: No This referral may be ineligible for admission to home health services as some payers/insurances require a patient to be homebound in order to qualify for home health services. I would like to continue with placing the order: Yes Skilled care requested: Nursing (includes assessment, treatment, disease management/education, wound care) Acute therapies (includes PT, PROCESS MANAGER) Nursing skilled care requested: Nursing assessment Wound care [facility] assessment needed related to this encounter: Skin Integrity Wound, Ostomy or Incontinence Assessment [facility] Referral - Wound Care: (Please include care and frequency.): Post-surgical Frequency of wound care: Weekly Number of Wound/Dressing Sites: 2 Wound/Dressing Location Site 1 (Please ensure to send the client home with 1 weeks' worth of supplies): Buttocks Cleanse Wound Site 1: Not Applicable Associated Medications Site 1 (Please make sure you also place prescription order): Not Applicable Primary Wound Dressing Site 1: Other Please Specify: Mepilex Ag Cover Wound Site 1: Gauze Adhesive Site 1: Other Please Specify: Mesh briefs Wound/Dressing Location Site 2 (Please ensure to send the client home with 1 weeks' worth of supplies): Leg Cleanse Wound Site 2: Not Applicable Associated Medications Site 2 (Please make sure you also place prescription order): Not Applicable Primary Wound Dressing Site 2: Other Cover Wound Site 2: Not Applicable Adhesive Site 2: Other Additional services available with longterm: Occupational therapy Social work Occupational Therapy ([facility]/PT referral req'd): Yes Occupational Therapy for: ADL Training Social work ([facility]/PT referral req'd): Yes Social Work Referral: Assess Neck Pinner Planning Needs Therapies skilled care requested: Physical Therapy Physical therapy is needed for: Evaluation Safety Gait/Mobility Assessment and Training Post Surgical Additional services available with PT/PROCESS MANAGER: Occupational therapy Social work Authorizing Provider: Meaghan Ramírez PA-C Dominique Erly, PA-C 12:11 08/22/23 documented in this encounter Medications at Time of Discharge Medication Sig Dispensed Refills Start Date End Date acetaminophen (TYLENOL) 500 mg tablet Take 2 Tablets by mouth every 6 hours as needed for Pain. 08/22/2023 amLODIPine (NORVASC) 10 mg tablet Take 1 Tablet by mouth daily for 30 days. . 30 Tablet 08/23/2023 09/22/2023 Blood-Glucose Meter,Continuous (DEXCOM G7 PLANT PROPAGATOR) miscIndications:Type 2 diabetes mellitus with hyperglycemia, with long-term current use of insulin ([facility]) 1 Device by misc (non-drug; combo route) route Once for 1 dose. 1 Each 1 08/22/2023 Blood-Glucose Sensor (DEXCOM G7 SENSOR) deviceIndications:Typ e 2 diabetes mellitus with other skin ulcer, with long-term current use of insulin ([facility]) 1 Device by misc (non-drug; combo route) route every 10 days. 3 Each 1 08/22/2023 cloNIDine (CATAPRES) 0.2 mg/[address] 1 Patch onto the skin once a week. 3 Patch 08/27/2023 docusate sodium (COLACE) 100 mg capsule Take 1 Capsule by mouth 2 times daily as needed for Constipation. 08/22/2023 furosemide (LASIX) 40 mg tablet Take 1 Tablet by mouth daily for 30 days. . 30 Tablet 08/23/2023 09/22/2023 insulin aspart U-100 (NOVOLOG FLEXPEN) 100 unit/mL [...] recheck BG at midnight. 18 mL 08/22/2023 insulin glargine 100 unit/mL (3 mL) injection pen Inject 48 Units into the skin once daily. . 15 mL 08/23/2023 insulin pen needles 31G x 3/16 Brand: [employer] Ultra Fine Mini 4 pen needles to be used per day 100 Each 08/22/2023 LORazepam (ATIVAN) 0.5 mg tablet Take 1 Tablet by mouth daily as needed for Anxiety. Daily Max: 0.5 mg 10 Tablet 08/22/2023 melatonin 3 mg tablet Take 2 Tablets by mouth at bedtime. 08/22/2023 metFORMIN (GLUCOPHAGE-XR) 500 mg ER tablet Take 2 Tablets by mouth 2 times daily with breakfast and dinner. . 120 Tablet 08/22/2023 vcyyeawc-nyt-bwes fum-folic ac 7.5 mg iron-400 mcg tablet Take 1 Tablet by mouth daily for 30 days. 30 Tablet 08/23/2023 09/22/2023 oxyCODONE (ROXICODONE) 10 mg immediate release tablet Take 1 Tablet by mouth every 4 hours as needed for Pain. Daily Max: 60 mg 10 Tablet 08/22/2023 sodium chloride 1,000 mg soluble tablet Take 1 Tablet by mouth 3 times daily for 30 days. 90 Tablet 08/22/2023 09/21/2023 methocarbamoL (ROBAXIN) 500 mg tablet Take 2 Tablets by mouth 4 times daily for 7 days. 56 Tablet 08/22/2023 08/29/2023 documented as of this encounter Ordered Prescriptions Prescription Sig Dispensed Refills Start Date End Da te cloNIDine (CATAPRES) 0.2 mg/[address] 1 Patch onto the skin once a week. 3 Patch 08/27/2023 aibinahr-kix-oeqo fum-folic ac 7.5 mg iron-400 mcg tablet Take 1 Tablet by mouth daily for 30 days. 30 Tablet 08/23/2023 09/22/2023 sodium chloride 1,000 mg soluble tablet Take 1 Tablet by mouth 3 times daily for 30 days. 90 Tablet 08/22/2023 09/21/2023 insulin aspart U-100 (NOVOLOG FLEXPEN) 100 unit/mL [...] recheck BG at midnight. 18 mL 08/22/2023 insulin pen needles 31G x 3/16 Brand: [employer] Ultra Fine Mini 4 pen needles to be used per day 100 Each 08/22/2023 metFORMIN (GLUCOPHAGE-XR) 500 mg ER tablet Take 2 Tablets by mouth 2 times daily with breakfast and dinner. . 120 Tablet 08/22/2023 insulin glargine 100 unit/mL (3 mL) injection pen Inject 48 Units into the skin once daily. . 15 mL 08/23/2023 furosemide (LASIX) 40 mg tablet Take 1 Tablet by mouth daily for 30 days. . 30 Tablet 08/23/2023 09/22/2023 docusate sodium (COLACE) 100 mg capsule Take 1 Capsule by mouth 2 times daily as needed for Constipation. 08/22/2023 amLODIPine (NORVASC) 10 mg tablet Take 1 Tablet by mouth daily for 30 days. . 30 Tablet 08/23/2023 09/22/2023 acetaminophen (TYLENOL) 500 mg tablet Take 2 Tablets by mouth every 6 hours as needed for Pain. 08/22/2023 Blood-Glucose Sensor (DEXCOM G7 SENSOR) deviceIndications:Type 2 diabetes mellitus with other skin ulcer, with long-term current use of insulin ([facility]) 1 Device by misc (non-drug; combo route) route every 10 days. 3 Each 1 08/22/2023 Blood-Glucose Meter,Continuous (DEXCOM G7 PLANT PROPAGATOR) miscIndications:Type 2 diabetes mellitus with hyperglycemia, with long-term current use of insulin ([facility]) 1 Device by [facility] (non-drug; combo route) route Once for 1 dose. 1 Each 1 08/22/2023 LORazepam (ATIVAN) 0.5 mg tablet Take 1 Tablet by mouth daily as needed for Anxiety. Daily Max: 0.5 mg 10 Tablet 08/22/2023 melatonin 3 mg tablet Take 2 Tablets by mouth at bedtime. 08/22/2023 oxyCODONE (ROXICODONE) 10 mg immediate release tablet Take 1 Tablet by mouth every 4 hours as needed for Pain. Daily Max: 60 mg 10 Tablet 08/22/2023 methocarbamoL (ROBAXIN) 500 mg tablet Take 2 Tablets by mouth 4 times daily for 7 days. 56 Tablet 08/22/2023 08/29/2023 insulin pen needles 31G x 3/16 Brand: BD Ultra Fine Mini 100 Each 08/22/2023 08/22/2023 cloNIDine (CATAPRES) 0.2 mg/[address] 1 Patch onto the skin once a week. 3 Patch 08/27/2023 08/22/2023 insulin aspart U-100 (NOVOLOG FLEXPEN) 100 unit/mL (3 mL) injectable pen Inject 5 Units into the skin at bedtime. if BG > 250 and recheck BG at midnight 5 mL 08/22/2023 08/22/2023 insulin aspart U-100 (NOVOLOG FLEXPEN) 100 unit/mL (3 mL) injectable penIndications:SUPPLEM ENTAL INSULIN Aspart SSI: Dosing regimen weight between 76-100 kg BG Units 66-140 0 141-180 2 181-210 3 211-250 5 251-299 7 > 299 11 10 mL 08/22/2023 08/22/2023 insulin aspart U-100 (NOVOLOG FLEXPEN) 100 unit/mL (3 mL) injectable pen Inject 6 Units into the skin 3 times daily with meals. 5 mL 08/22/2023 08/22/2023 insulin glargine 100 unit/mL (3 mL) injection pen Inject 48 Units into the skin once daily. 15 mL 08/23/2023 08/22/2023 nfsefmkq-ero-gqjk fum-folic ac 7.5 mg iron-400 mcg tablet Take 1 Tablet by mouth daily for 30 days. 30 Tablet 08/23/2023 08/22/2023 sodium chloride 1,000 mg soluble tablet Take 1 Tablet by mouth 3 times daily for 30 days. 90 Tablet 08/22/2023 08/22/2023 acetaminophen (TYLENOL) 500 mg tablet Take 2 Tablets by mouth every 6 hours as needed for Pain. 56 Tablet 08/22/2023 08/22/2023 amLODIPine (NORVASC) 10 mg tablet Take 1 Tablet by mouth daily for 30 days. 30 Tablet 08/23/2023 08/22/2023 docusate sodium (COLACE) 100 mg capsule Take 1 Capsule by mouth 2 times daily as needed for Constipation. 30 Capsule 08/22/2023 08/22/2023 furosemide (LASIX) 40 mg tablet Take 1 Tablet by mouth daily for 30 days. 30 Tablet 08/23/2023 08/22/2023 methocarbamoL (ROBAXIN) 500 mg tablet Take 2 Tablets by mouth 4 times daily for 7 days. 56 Tablet 08/22/2023 08/22/2023 metFORMIN (GLUCOPHAGE-XR) 500 mg ER tablet Take 2 Tablets by mouth 2 times daily with breakfast and dinner. 120 Tablet 08/22/2023 08/22/2023 documented in this encounter Discharge Disposition Disposition Code Departure Means Destination Comment s Home-Health Care [facility] [place] [place] Home documented in this encounter Progress Notes * Sam Seay OT - 08/22/2023 1114 EDT [facility] Acute Therapy [facility] Occupational Therapy Discontinue/Discharge Note Date: 08/23/2023 SUBJECTIVE: None OBJECTIVE: The patient has been discharged from the hospital. Please refer to the Occupational Therapy Initial Evaluation Note for details. ASSESSMENT: Unable to assess her current status as the patient was not seen for any additional therapy sessions. GOALS: All goals discontinued. PLAN: Discontinue occupational therapy. Alejo (Annette) WAYLON Seay 08/23/2023 12:46 * Nabila English NP - 08/22/2023 0921 EDT Endocrine/Diabetes Follow Up/Progress Note Admit Date: 06/13/2023 Hospital day LOS: 70 days Date of Service: 08/22/2023 Reason for Following: T2DM Inpatient glycemic management, Necrotizing Fasciitis HPI: 52 y/o F with PMH of T2 DM, HTN, Anxiety/Depression, admitted via ER with R Gluteal Necrotizing Fasciitis 06/12, complicated by Post-operative bradycardic arrest x2 early in hospital course, suspected heart block vs vagal event. Recovered normal cardiac function, EP cards signed off and has hadpersistent respiratory complications. She has undergone serial washouts/debridements and wound vac placements, had skin graft on 07/30 Subjective: Looking forward to discharge today. She has taken insulin as well as metformin in the past. After review of discharge recommendations, she feels confident she can manage her diabetes at home. Diabetes History: Onset: ~ 10-15 yr ago Control: A1C 8.2 on 06/13 Complications: Peripheral Neuropathy, infected wound Home Regimen: On no meds at home Says previously she had taken insulin Tries to watch diet SBGM and Self Care: Stopped taking FS Current Diet: Regular (added Consistent Carb) Social Information: Single, Lives in [facility], has male partner. 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 Unsure of family history maybe grandparents w DM Regular Diabetes Provider: PCP ROS: Donor site sore - right thigh No N/V No CP/SOB No fevers/chills Objective/Physical Exam: VS: BP: 126/55 Pulse: 84 Heart Rate: 79 BPM Resp: 18 Temp: 36.5 ??C (97.7 ??F) SpO2: 97 % O2 Flow Rate (L/min): 0 l/min O2 Device: None FIO2 %: 21 % Weight: Weight : 80.7 kg (178 lb) Body mass index is 31.54 kg/m??. Food Intake: DIET REGULAR Activity:bedrest Exam: Pt sitting at bedside Talkative A&O Right thigh donor site covered and Pt has EDY wrap on R Lower leg Dexcom in place Right upper arm. Explained to Pt that she is still requiring mealtime insulin. Will increase metformin to Max dose. This may lessen Aspart requirements. Once discharged, recommend addition of GLP-1 agonist, this may replace the use of mealtime insulin. It will also decrease appetite, assist w weight loss efforts, and has cardio-renal protective effects. Would not consider use of SGLT-2 Inhibitor until buttock andR thigh areas are fully healed. Data Review: Labs: Recent Labs 08/19/23 1126 08/19/23 2141 08/20/23 0745 08/20/23 1206 08/20/23 1819 08/20/23 2055 08/21/23 0733 08/21/23 1201 08/21/23 1729 08/21/23 2038 08/22/23 0734 GLUCOSEPOC 130* 85 139* 114* 145* 147* 140* 179* 80 124* 148* Lab Results Component Value Date HGBA1C 8.2 (H) 06/14/2023 Lab Results Component Value Date SERGLU 164 (H) 08/22/2023 NA 134 (L) 08/22/2023 K 4.4 08/22/2023 CL 99 08/22/2023 CO2 22 08/22/2023 BUN 30 (H) 08/22/2023 CREATININE 0.74 08/22/2023 CALCIUM 9.9 08/22/2023 Assessment 52 y/o F with 10-15 yr H/O T2 DM, manages with dietary measures, A1C is uncontrolled. Has PMH of HTN, Anxiety/Depression, admitted via ER with R Gluteal Necrotizing Fasciitis 06/12, complicated by Post-operative bradycardic arrest x2 early in hospital course, suspected heart block vs vagal event. Recovered normal cardiac function, EP cards signed off and has had persistent respiratory complications. She has undergone serial washouts/debridements and wound vac placements. Renal function WNL. Had split thickness skin graft to buttock wound on 07/30. Pt ready for discharge today. Blood sugars stable. Aspart dose lowered to 6 units this AM with meals after Metformin increased to full dose yesterday. Pt feels confident with discharge Plan after review. Plan: 1. Lantus: Lantus 48 units once daily 2. Aspart: Inject 6 units with meals Hold if NPO 3. Aspart SSI: Dosing regimen weight between 76-100 kg BG Units 66-140 0 141-180 2 181-210 3 211-250 5 251-299 7 > 299 11 4. Aspart HS: 5 units at HS if BG > 250 and recheck BG at midnight 5. FS: AC/HS/PRN, 6. Has met with outsole molder and is using a Dexcom 7 CGM. 7. Metformin ER: 1000mg BID, 8. Will continue to follow with you. Discharge Plan: Lantus 48 units subcutaneous once daily in AM. Aspart dose 6 units with each meal. She will require aspart Supplemental scale noted above. Metformin ER 500mg take (2) tabs BID. Continue Dexcom 7 CGM. Consider addition of GLP-1 Agonist once settled in at home (may lessen insulin requirements, given in lieu of mealtime aspart). Reviewed discharge reqs w Pt including adjusting insulin doses for low trending blood sugars. She will need prescriptions for Lantus, aspart pens, pen needles, Metformin ER and refills on Dexcom 7 CGM. She will go home w HH services. F/U w PCP I spent a total of 50 minutes on the date of this encounter meeting with the patient and reviewing documentation/coordinating care as described in the above note. Nabila English NP 08/22/2023 9:23 * Nedra Armendariz RN - 08/22/2023 0820 EDT CASE MANAGEMENT UPDATE RE: DISCHARGE Goal for discharge to home today following dressing change by Primary team and wound care educationwith supports at bedside. Friend Sarah and partner Lezama to provide transportation and arrive today by 1100. Referred to [facility] for [facility]/ PT/ OT/ SW services. Team to please include specific dressing orders to ASSEMBLY LOADER. Nursing to please call report to [phone]. Patient has recommended DME at home. Will provide scripts for any additional equipment needs. Nursing to please provide all recommended dressing supplies for home. Prescription medications to be sent to [facility]. Patient referred to 'Meds to Beds' program; Pharmacy to deliver/ review any prescription medications with patient at bedside prior to discharge. Nursing to please notify Pharmacy once discharge orders received in order to schedule delivery ([facility]eds to Beds [id number]). Nedra Armendariz RN CM CMSW Department (Available via MideoMe) * Nabila English NP - 08/21/2023 7508 EDT Endocrine/Diabetes Follow Up/Progress Note Admit Date: 06/13/2023 Hospital day LOS: 69 days Date of Service: 08/21/2023 Reason for Following: T2DM Inpatient glycemic management, Necrotizing Fasciitis HPI: 52 y/o F with PMH of T2 DM, HTN, Anxiety/Depression, admitted via ER with R Gluteal Necrotizing Fasciitis 06/12, complicated by Post-operative bradycardic arrest x2 early in hospital course, suspected heart block vs vagal event. Recovered normal cardiac function, EP cards signed off and has hadpersistent respiratory complications. She has undergone serial washouts/debridements and wound vac placements, had skin graft on 07/30 Subjective: Hoping for discharge to home tomorrow. Her appetite is good and is tolerating mid-dose metformin w/o problem. She was hoping to be discharged w/o mealtime insulin. Diabetes History: Onset: ~ 10-15 yr ago Control: A1C 8.2 on 06/13 Complications: Peripheral Neuropathy, infected wound Home Regimen: On no meds at home Says previously she had taken insulin Tries to watch diet SBGM and Self Care: Stopped taking FS Current Diet: Regular (added Consistent Carb) Social Information: Single, Lives in [facility], has male partner. 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 Unsure of family history maybe grandparents w DM Regular Diabetes Provider: PCP ROS: Donor site sore - right thigh No N/V No CP/SOB No fevers/chills Objective/Physical Exam: VS: BP: 118/56 Pulse: 84 Heart Rate: 79 BPM Resp: 18 Temp: 36.7 ??C (98.1 ??F) SpO2: 97 % O2 Flow Rate (L/min): 0 l/min O2 Device: None FIO2 %: 21 % Weight: Weight : 80.7 kg (178 lb) Body mass index is 31.54 kg/m??. Food Intake: DIET REGULAR Activity:bedrest Exam: Pt sitting at bedside Talkative A&O Right thigh donor site covered and Pt has EDY wrap on R Lower leg Dexcom on place Right upper arm. Explained to Pt that she is still requiring mealtime insulin. Will increase metformin to Max dose. This may lessen Aspart requirements. Once discharged, recommend addition of GLP-1 agonist, this may replace the use of mealtime insulin. It will also decrease appetite, assist w weight loss efforts, and has cardio-renal protective effects. Would not consider use of SGLT-2 Inhibitor until buttock andR thigh areas are fully healed. Data Review: Labs: Recent Labs 08/18/23 1735 08/18/23 20508/19/23 0735 08/19/23 1126 08/19/23 2141 08/20/23 0745 08/20/23 1206 08/20/23 1819 08/20/235 08/21/23 0733 08/21/23 1201 GLUCOSEPOC 97 142* 139* 130* 85 139* 114* 145* 147* 140* 179* Lab Results Component Value Date HGBA1C 8.2 (H) 06/14/2023 Lab Results Component Value Date SERGLU 141 (H) 08/19/2023 NA 136 08/19/2023 K 4.5 08/19/2023 CL 101 08/19/2023 CO2 22 08/19/2023 BUN 26 08/19/2023 CREATININE 0.56 08/19/2023 CALCIUM 9.9 08/19/2023 Assessment 52 y/o F with 10-15 yr H/O T2 DM, manages with dietary measures, A1C is uncontrolled. Has PMH of HTN, Anxiety/Depression, admitted via ER with R Gluteal Necrotizing Fasciitis 06/12, complicated by Post-operative bradycardic arrest x2 early in hospital course, suspected heart block vs vagal event. Recovered normal cardiac function, EP cards signed off and has had persistent respiratory complications. She has undergone serial washouts/debridements and wound vac placements. Renal function WNL. Had split thickness skin graft to buttock wound on 07/30. Pt doing well and possible discharge tomorrow. She is eating well and tolerating current DM regimen. She is hoping at some pint to stop using aspart. Will increase metformin, follow glycemic response, doubt will be able to D/C aspart w discharge but may be able to lessen doses. See discharge Plan below. Plan: 1. Lantus: Lantus 48 units once daily 2. Aspart: Inject 12 units if patient eats entire meal, inject 6 units if patient eats 50% of meal,Hold if NPO 3. Aspart SSI: Dosing regimen weight between 76-100 kg BG Units 66-140 0 141-180 2 181-210 3 211-250 5 251-299 7 > 299 11 4. Aspart HS: 5 units at HS if BG > 250 and recheck BG at midnight 5. FS: AC/HS/PRN 6. Has met with outsole molder and is using a Dexcom 7 CGM. 7. Metformin ER: increased today from 500mg BID to 1000mg BID, follow blood sugar response and adjust insulin as needed. 8. Will continue to follow with you. Discharge Plan: Lantus 48 units subcutaneous once daily in AM. Aspart dose TBD with each meal. She will require aspart Supplemental scale noted above. Metformin ER 500mg take (2) tabs BID. Continue Dexcom 7 CGM. Consider addition of GLP-1 Agonist once settled in at home (may lessen insulin requirements, possibly given in lieu of mealtime aspart). Nabila English NP 08/21/2023 16:35 * Grupo Hawley OT - 08/21/2023 1140 EDT The Rehabilitation Therapy Acute Therapy [facility] Occupational Therapy Encounter Note Date of Service: 08/21/2023 Session #: 6 Precautions: Avoid shearing on bottom, AAT, up for no more than 1 hour, regular diet SUBJECTIVE: Subjective Statements Patient/caregiver states: I guess I could just walk down the hill OBJECTIVE: Interventions Completed Today: OT Treatment 1 Start Time: 1030 Individual Therapy (minutes): 62 Minutes Total Minutes Treatment 1: 62 Present for the Therapy Session Comments: Nurse, PALS SPECIALIST, CM Interventions Included Procedures: Therapeutic activities Skilled Discussion: Purpose: to review d/c recommendations, DME, and to address pt's concerns about navigating entranceto her home Cooper points: DME patient has: RW (borrowed-- needs her own) Commode Shower chair Equipment patient needs: RW (needs her own) Wheelchair -- recommend follow up with home health or PCP for wheelchair to manage community-level mobility, does not require w/c for household mobility Hospital Manager Walker yaima Discussion with patient and CM re: accessibility of home As of yet, has not demonstrated ability to navigate a grassy hill (required for entry/exit to home)via w/c and/or RW and her partner Carey has not been able to come in for family training This therapist will address navigation of entry/exit to home this afternoon Patient states Carey is unable to operate cell phone to take pictures of home entrance and send to patient Patient also states she does not have a wheelchair at her disposal, but is interested in loaning one OT Treatment 2 Start Time: 1400 Individual Therapy (minutes): 61 Minutes Total Minutes Treatment 2: 61 Wheelchair Mobility: Set up: standard 20 wheelchair Assist: supervision for navigation on/off unit including management of elevator, thresholds to the outdoors, sidewalks, and cross walks -- uneven surfaces Cues: cues and education for the following: Cues to use caution when taking brakes off when on a hill due to potential to roll down the hill Education that if her partner needs to push her up/down this hill in w/c she should go backwards down the hill to avoid risk of falling forward out of the w/c (however unless she finds a loaner she currently will not have a wheelchair to do this) Recommendations: Pt benefits from wheelchair for energy conservation with community level mobility follow up with PCP or home health therapy to discuss needs for community mobility Functional Mobility: Reason for training: to assess and provide training on navigating grassy sloped hill as she will have to do to enter/exit her home Equipment: standard RW Environment: grassy sloped surface Task: Assist: Up the hill: SBA x2 Down the hill: SBA x2 Cues: min cues for safety with RW, pacing, and lifting L foot to avoid shuffling Distance: approx 20 ft (pt reports similar to her home's entrance) Recommendation: to enter exit the home have two people provide stand by assistance and utilize the RW to navigate up/down the hill. If a wheelchair becomes available and patient opts to use it, go forward up the hill and backward down the hill, again two people may be helpful to ensure safety. 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 Focus of session on assessment and training with RW technique and safety recommendations for going up/down hill as well as safety recommendations for navigating hills in w/c. Pt demonstrates good ability to navigate hill with RWand SBA x2 for safety. Pt feels this will be feasible way to manage entering her home upon d/c tomorrow. Pt states her partner and Sarah will be there to assist her with going down the hill from the car to the home. Patient demonstrates excellent progress toward goals as evidenced by performanceof functional mobility for ADL/IADL participation with MOD I. It is recommended she have delivery medications in the form of bubble packs. Her partner will manage all other IADLs in the home. Patientremains appropriate for skilled OT services via the Transitions Rehab Program (TRP) at increased shanita quency and duration to promote optimal return of function and establish safe d/c plan. D/c recommendation is home with family support, home health OT/PT/SW. Continue per POC. PLAN: Frequency: Times per week Times Per Week: 2-5 Frequency Comments: through the Transitional Rehab Team Intensity: 15-45 minutes, 30-60 minutes Duration Comments: Duration of TRP Recommended Discharge Destination: Home with caregiver support/supervision Recommended Discharge Services Therapy Specific Services: Occupational therapy, Physical therapy Specialty Medical Providers: Social work Equipment Recommended: Mobility Equipment, Dressing/Grooming/Feeding Equipment (Patient owns: shower chair with walk in shower, BSC) Dressing/Grooming/Feeding Equipment: Hospital Manager Mobility Equipment: Walker, Wheelchair (walker tray) Walker Specifics: Rolling walker - 2 wheels Wheelchair Specifics: Manual wheelchair Other Recommended Services: Physical therapy consult (PT to address entry/exit of home and need forw/c) Recommendations: Requires: bubble pack medications delivered to home, transportation services, consider meals on wheels Next Session to Include: medication mgmt, mobility related ADL, hill management GRUPO HAWLEY OT, 08/21/2023, 15:02 * Nedra Armendariz RN - 08/20/2023 2819 EDT The Department of Case Management and Social Work Case Management Progress Note Patient Name Level of Care and Accommodation Code: Patient Class: Medically Ready: Y/N Della Browning Acute Chcf Level 1 Inpatient N Primary Dx: Decisional Capacity: Y/N Primary Support/ CareGiver: Advance Directive Necrotizing fasciitis ([facility]) Y N/a Advance Directives (For Healthcare) Healthcare Directive: No, patient does not have advance directive for healthcare treatment Information Provided on Healthcare Directives: Yes Information on Healthcare Directives Requested: No Disposition Information Appropriate to transfer back: Y/N Length of Stay (in days): Estimated Date of D/C: LTC Medicaid Status: N/a 68 08/22 N Primary Care Provider: [facility]/ANDRES/SNF referred: Y/N Bed Offers: Y/N Escalated to Leadership: Y/N UNKNOWN,PROVIDER N N/a N Mobility Level: Recommended D/C Location Payor: Bedside Mobility Assessment Tool (BMAT) Bedrest or non-weight bearing orders?: No Assessment Level 1-Sit & Shake: Pass Assessment Level 2-Stretch & Point: Pass Assessment Level 3-Stand: Pass Assessment Level 4-Step: Pass Mobility level determined: Mobility Level 4 use gait belt, walker, crutches, cane, prosthetic(s) Number of caregivers reccommended: 1 Number of caregivers used: 1 Recommended Discharge Destination PT Recommended Discharge Destination: Home with caregiver support/supervision Pay[place]: [place] / Plan: [place] / Product Type: [place] GL / Barriers to Discharge N/a; per team in morning rounds 08/19 - plan to assess Skin graft site on 08/21 to determinereadiness for transition from Acute care setting with goal for home with home services. /tlvRN CM Plan Chart reviewed and updates received from Primary team this morning in rounds. Met with patient at bedside to provide check-in and to discuss pending discharge plan for home by end of week. Discussed having friend/ partner present at bedside on Tuesday 08/22 for wound care education prior to discharge. Will also require Home Health for Chcf/ PT/ OT services for home. Goal for HH Nursing x3/ week for wound care assessment and dressing changes. This CM will continue to follow. Please reach out with any additional questions/ concerns regardingeventual dispo plan for home. /tlvRN CM E-Signature Nedra Armendariz RN CM CMSW Department (Available via MideoMe) 08/20/23 16:49 * Grupo Hawley OT - 08/20/2023 1211 EDT The Rehabilitation Therapy Acute Therapy [facility] Occupational Therapy Encounter Note Date of Service: 08/20/2023 Session #: 5 Precautions: Avoid shearing on bottom, AAT, up for no more than 1 hour, regular diet SUBJECTIVE: Subjective Statements Patient/caregiver states: I can't walk into the kitchen! OBJECTIVE: Interventions Completed Today: Occupational Therapy Today At: Time: 1100 Total Treatment Time (minutes): 46 Timed Code Treatment Minutes: 46 Interventions Included Procedures: Self-care/home management, Therapeutic activities Toileting: Set up: ambulates from EOB to toilet Transfer Assist: supervised Cues: min cues for safety with rW Hygiene: max A and cues to manage posterior hygiene (unaware of incontinence of BM) Clothing management: dons brief from seated on toilet and pulls over hips with significant effort and supervision Equipment: RW Functional Mobility: Reason for training: to progress endurance and functional activity tolerance Equipment: RW Environment: from room to kitchen on unit Task: Assist: supervision to SBA for ambulation in unit to kitchen Cues: encouragement only Meal Prep/Kitchen mobility Task: retrieve drink Assist: A only to transport drink when utilizing RW (education on recommendation for walker tray) Cues: encouragement Patient Status at the End of the Therapy Session The patient was left in the: wheelchair Patient Status at the End of the Therapy Session Comments: nurse updated Patient/Family Education: Education Topics Topics: d/c planning, skin integrity, increasing OOB activity, encouraged ambulation with nursing staff Activity/Work/Community: Balanced schedule, Importance of out of bed activity Braces and Equipment: Assistive device/technique Mobility, Transfers, and Gait: Functional transfers Safety: Fall prevention Learner Learner: Patient Method: Demonstration, Verbal Team Communication Communicated with: Nurse When: Prior to therapy session, After therapy session By: [id number] communication, Other (secure chat) About: Nurse: plan for session, results of session, recommendations to faciltiate increased OOB activity ASSESSMENT: Della Browning was received for OT treatment session sitting at EOB and finishing up with nursingeducation on glucose monitor in prep for management of glucose/insulin at home. Focus of session oncontinuing to progress pt's activity tolerance and OOB activity. Pt performs toileting with supervision, gets drink from fridge with supervision. Discussed IADL management in the home. Partner can manage meals, laundry, basic house keeping. However, pt does not have good way to enter/exit the home given grassy hill to get from front door to sidewalk where transportation picks her up. This will need to be addressed prior to d/c. Patient remains appropriate for skilled OT services via the Transitions Rehab Program (TRP) at increased frequency and duration to promote optimal return of functionand establish safe d/c plan. D/c recommendation is home with home health and 24/7 assist from significant other once plan is established for safe method for patient to get out of house to utilize transportation services. Continue per POC. PLAN: Frequency: Times per week Times Per Week: 2-5 Frequency Comments: through the Transitional Rehab Team Intensity: 15-45 minutes, 30-60 minutes Duration Comments: Duration of TRP Recommended Discharge Destination: Home with caregiver support/supervision Recommended Discharge Services Therapy Specific Services: Occupational therapy, Physical therapy Specialty Medical Providers: Social work Equipment Recommended: Mobility Equipment (Patient owns: shower chair with walk in shower, BSC) Mobility Equipment: Walker Walker Specifics: Rolling walker - 2 wheels Equipment Recommended Comments: May require: wheelchair, rails from sidewalk to home entrance ramp Other Recommended Services: Physical therapy consult (PT to address entry/exit of home and need forw/c) Recommendations: Requires: bubble pack medications delivered to home, transportation services, consider meals on wheels Next Session to Include: medication mgmt, mobility related ADL GRUPO HAWLEY OT, 08/20/2023, 15:11 * Carmen Vernon NP - 08/20/2023 1146 EDT Endocrine/Diabetes Follow Up/Progress Note Admit Date: 06/13/2023 Hospital day LOS: 68 days Date of Service: 08/20/2023 Reason for Following: T2DM Inpatient glycemic management, Necrotizing Fasciitis HPI: 52 y/o F with PMH of T2 DM, HTN, Anxiety/Depression, admitted via ER with R Gluteal Necrotizing Fasciitis 06/12, complicated by Post-operative bradycardic arrest x2 early in hospital course, suspected heart block vs vagal event. Recovered normal cardiac function, EP cards signed off and has hadpersistent respiratory complications. She has undergone serial washouts/debridements and wound vac placements, had skin graft on 07/30 Subjective: Resting in bed, , moving her bowels and eating well, bumped her thigh on bedside commode when getting back from bathroom this AM and she states, 'that hurt Diabetes History: Onset: ~ 10-15 yr ago Control: A1C 8.2 on 06/13 Complications: Peripheral Neuropathy, infected wound Home Regimen: On no meds at home Says previously she had taken insulin Tries to watch diet SBGM and Self Care: Stopped taking FS Current Diet: Regular (added Consistent Carb) Social Information: Single, Lives in [facility], has male partner. 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 Unsure of family history maybe grandparents w DM Regular Diabetes Provider: PCP ROS: Donor site sore - right thigh No N/V No CP/SOB No fevers/chills Objective/Physical Exam: VS: BP: 128/64 Pulse: 84 Heart Rate: 80 BPM Resp: 18 Temp: 36.7 ??C (98 ??F) SpO2: 96 % O2 Flow Rate (L/min): 0 l/min O2 Device: None FIO2 %: 21 % Weight: Weight : 80.7 kg (178 lb) Body mass index is 31.54 kg/m??. Food Intake: DIET REGULAR Activity:bedrest Exam: Resting in bed on left side Talkative A&O dressing to right buttock, right thigh donor site Data Review: Labs: Recent Labs 08/17/23 1732 08/17/23 2128 08/18/23 0728 08/18/23 1735 08/18/23 2051 08/19/23 0735 08/19/23 1126 08/19/23 2141 08/20/23 0745 GLUCOSEPOC 115* 134* 151* 97 142* 139* 130* 85 139* Lab Results Component Value Date HGBA1C 8.2 (H) 06/14/2023 Lab Results Component Value Date SERGLU 141 (H) 08/19/2023 NA 136 08/19/2023 K 4.5 08/19/2023 CL 101 08/19/2023 CO2 22 08/19/2023 BUN 26 08/19/2023 CREATININE 0.56 08/19/2023 CALCIUM 9.9 08/19/2023 Assessment 52 y/o F with 10-15 yr H/O T2 DM, manages with dietary measures, A1C is uncontrolled. Has PMH of HTN, Anxiety/Depression, admitted via ER with R Gluteal Necrotizing Fasciitis 06/12, complicated by Post-operative bradycardic arrest x2 early in hospital course, suspected heart block vs vagal event. Recovered normal cardiac function, EP cards signed off and has had persistent respiratory complications. She has undergone serial washouts/debridements and wound vac placements. Renal function WNL. Had split thickness skin graft to buttock wound on 07/30. Blood sugar trends are stable, will continue current Lantus and aspart today. Pt looking forward tostarting CGM with CDCES later this afternoon. Will continue to monitor and make adjustments as needed. Plan: 1. Lantus: Lantus 48 units once daily 2. Aspart: Inject 12 units if patient eats entire meal, inject 6 units if patient eats 50% of meal,Hold if NPO 3. Aspart SSI: Dosing regimen weight between 76-100 kg BG Units 66-140 0 141-180 2 181-210 3 211-250 5 251-299 7 > 299 11 4. Aspart HS: 5 units at HS if BG > 250 and recheck BG at midnight 5. FS: AC/HS/PRN 6. Ordered Dexcom gate operator 08/19/2023, had sensors in room already, as I was not able to get Dexcom G7 madeline on phone for pt (perhaps because phone is a prepaid phone?) PABLITO Snyder is due in today to help pt get started with CGM 7. Consider introduction of non-insulin agents (GLP1/SGLT2) as adjunct therapy to insulin, once closer to discharge, perhaps CGM 8. Will continue to follow with you. Discharge Plan: TBD Carmen Vernon NP 08/20/2023 11:46 * Teresita Mcneal, PT - 08/20/2023 1032 EDT Rehabilitation Therapy Acute Therapies [facility] Physical Therapy Encounter Note Date of Service: 08/20/2023 Subjective/Objective Subjective Pt reports ambulating in the room without issue Objective Intervention completed today: Time: 1010 Total care time: 18 minutes. Timed code treatment minutes: n/a Vital signs have been stable with interventions and were not monitored. Therapeutic activity Supine upon arrival. Some gluteal pain but not rated Supine<>sit to L indep with rail Sit<>stand supervised from EOB Pt ambulated supervised 25'x1, 60'x1 rw steady gait; ongoing L foot drop Instructed pt up/down step x3 with BUE support to facilitate home setup mincontact ax1; cues for LEsequencing and safety Pt left EOB; no needs Patient/Family Education: Topic: Safety Stairs Transfers Learner: patient Method: verbal Barriers to Learning: none noted Outcome: verbalized understanding and returned demonstration Team Communication: NA Assessment/Plan Assessment Pt is doing well with mobility. She has a ramp entry for home and one step inside to get to the bathroom. Instructed pt with stairs today; mincontact ax1 needed. Functionally pt is ready for dc when cleared by team Will f/u next week if pt remains here PT NO LONGER NEEDS TRP Plan Continue per plan of care Recommended Discharge Destination: Home with family Recommended Discharge Services: Home health physical therapy Recommended Equipment Needs: Patient has all necessary equipment Other recommendations: No other consults recommended at this time Pager: [phone] TERESITA MCNEAL PT 08/20/2023 10:32 * Carmen Vernon PALS SPECIALIST - 08/19/2023 5743 EDT Endocrine/Diabetes Follow Up/Progress Note Admit Date: 06/13/2023 Hospital day LOS: 67 days Date of Service: 08/19/2023 Reason for Following: T2DM Inpatient glycemic management, Necrotizing Fasciitis HPI: 52 y/o F with PMH of T2 DM, HTN, Anxiety/Depression, admitted via ER with R Gluteal Necrotizing Fasciitis 06/12, complicated by Post-operative bradycardic arrest x2 early in hospital course, suspected heart block vs vagal event. Recovered normal cardiac function, EP cards signed off and has hadpersistent respiratory complications. She has undergone serial washouts/debridements and wound vac placements, had skin graft on 07/30 Subjective: Resting in bed, she had been outside in her wheelchair and has been using her walker toget to and from BR, moving her bowels and eating well Diabetes History: Onset: ~ 10-15 yr ago Control: A1C 8.2 on 06/13 Complications: Peripheral Neuropathy, infected wound Home Regimen: On no meds at home Says previously she had taken insulin Tries to watch diet SBGM and Self Care: Stopped taking FS Current Diet: Regular (added Consistent Carb) Social Information: Single, Lives in [facility], has male partner. 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 Unsure of family history maybe grandparents w DM Regular Diabetes Provider: PCP ROS: Donor site sore - right thigh No N/V No CP/SOB No fevers/chills Objective/Physical Exam: VS: BP: (!) 145/87 Pulse: 84 Heart Rate: 80 BPM Resp: 18 Temp: 36.8 ??C (98.3 ??F) SpO2: 100 % O2 Flow Rate (L/min): 0 l/min O2 Device: None FIO2 %: 21 % Weight: Weight : 80.7 kg (178 lb) Body mass index is 31.54 kg/m??. Food Intake: DIET REGULAR Activity:bedrest Exam: Resting in bed on left side Talkative A&O dressing to right buttock, right thigh donor site Data Review: Labs: Recent Labs 08/16/23 1708 08/16/23 1748 08/16/23 2159 08/17/23 0702 08/17/23 1135 08/17/23 1732 08/17/23 2128 08/18/23 0728 08/18/23 1735 08/18/23 2051 08/19/23 0735 08/19/23 1126 GLUCOSEPOC 104* 143* 177* 150* 156* 115* 134* 151* 97 142* 139* 130* Lab Results Component Value Date HGBA1C 8.2 (H) 06/14/2023 Lab Results Component Value Date SERGLU 141 (H) 08/19/2023 NA 136 08/19/2023 K 4.5 08/19/2023 CL 101 08/19/2023 CO2 22 08/19/2023 BUN 26 08/19/2023 CREATININE 0.56 08/19/2023 CALCIUM 9.9 08/19/2023 Assessment 52 y/o F with 10-15 yr H/O T2 DM, manages with dietary measures, A1C is uncontrolled. Has PMH of HTN, Anxiety/Depression, admitted via ER with R Gluteal Necrotizing Fasciitis 06/12, complicated by Post-operative bradycardic arrest x2 early in hospital course, suspected heart block vs vagal event. Recovered normal cardiac function, EP cards signed off and has had persistent respiratory complications. She has undergone serial washouts/debridements and wound vac placements. Renal function WNL. Had split thickness skin graft to buttock wound on 07/30. Blood sugar trends are stable, will continue current Lantus and aspart today. Will continue to monitor and make adjustments as needed. Plan: 1. Lantus: Lantus 48 units once daily 2. Aspart: Inject 12 units if patient eats entire meal, inject 6 units if patient eats 50% of meal,Hold if NPO 3. Aspart SSI: Dosing regimen weight between 76-100 kg BG Units 66-140 0 141-180 2 181-210 3 211-250 5 251-299 7 > 299 11 4. Aspart HS: 5 units at HS if BG > 250 and recheck BG at midnight 5. FS: AC/HS/PRN 6. Has met with diabetes education and had dexcom G7 delivered to room today, plan is to start withCDE tomorrow 7. Consider introduction of non-insulin agents (GLP1/SGLT2) as adjunct therapy to insulin, once closer to discharge, perhaps CGM 8. Will continue to follow with you. Discharge Plan: TBD Carmen Vernon NP 08/19/2023 15:47 * Grupo Hawley OT - 08/19/2023 1043 EDT The Rehabilitation Therapy Acute Therapy [facility] Occupational Therapy Encounter Note Date of Service: 08/19/2023 Session #: 4 Precautions: Avoid shearing on bottom, AAT, up for no more than 1 hour, regular diet SUBJECTIVE: Subjective Statements Patient/caregiver states: I don't like those things, theyre so bulky (pads/pull ups) OBJECTIVE: Interventions Completed Today: Occupational Therapy Today At: Time: 0830 Total Treatment Time (minutes): 56 Timed Code Treatment Minutes: 56 Interventions Included Procedures: Self-care/home management, Therapeutic activities Sanjeev Cognitive Assessment (MoCA) The Sanjeev Cognitive Assessment (MoCA)^ is a rapid screening tool for detection of mild cognitiveimpairment (MCI). It assesses 7 domains and the score range is 0-30. Version 8.1 was performed today. Domain Score Visuospatial/Executive 4/5 Naming 3/3 Memory No score Attention 3/6 Language 1/3 Abstraction 2/2 Delayed Recall 3/5 Orientation 6/6 Total Score 23 Comments:hearing impairment may have impacted memory score. A total score of <26 is considered indicative of MCI (Nassreddine, 2005). Memory Index Score (MIS) of <7 is considered abnormal (Dylon, 2005). Normative sample: (Ally et al, 2011) MoCA Score by Age and Education Level Years of Education <12 12 >12 Total by age Age group, y No. Mean(SD)Median No Mean(SD)Median No Mean(SD)Median No Mean(SD) <35 20 22.8(3.38)23 65 24.46(3.49)25 122 25.93(2.48)26 207 25.16(3.08) 30-40 37 22.84(3.18)23 106 23.99(2.93)24 264 25.81(2.64)26 408 25.07(2.95) 35-45 55 22.11(3.33)23 177 23.02(3.67)24 355 25.38(3.05)26 588 24.37(3.51) 40-50 77 21.36(3.73)22 227 22.26(3.94)23 418 25.09(3.16)26 723 23.80(3.80) 45-55 77 20.75(3.80)21 216 21.87(3.95)22 461 24.70(3.24)25 755 23.48(3.84) 50-60 62 19.94(4.34)20 172 22.25(3.46)22 424 24.34(3.38)25 659 23.37(3.78) 55-65 60 19.60(4.14)20 143 21.58(3.93)22 369 24.43(3.31)25 573 23.20(3.96) 60-70 57 19.30(3.79)19 113 20.89(4.50)21 246 24.32(3.04)25 418 22.69(4.12) 65-75 38 18.37(3.87)19 67 20.57(4.79)21 122 24.00(3.35)24 228 22.05(4.48) 70-80 14 16.07(3.17)17 23 20.35(4.91)20 42 23.60(3.47)24 79 21.32(4.78) Total by education 230 20.55(4.04)21 608 22.34(3.97)23 1306 24.81(3.20)25 2148 23.65(3 Skilled Discussion: Purpose: review MOCA and score with patient Cooper points: pt demonstrates challenges in the following areas however per above norms score WNL forage and education Attention/recall Memory Language fluency Recommendations: reviewed compensatory strategies including using lists, notebooks, calendars. Alsoreviewed med management strategies to promote accuracy including bubble packs for meds and using schedule to keep track of insulin and glucose for T2DM management. Dressing: Purpose of activity: to promote success with donning/doff of socks and shoes Gathering clothing: total A provided this date LB dressing: doffing compression stockings, donning phone counselor socks, donning darco shoes Set up: from seated EOB Assist: [place] Compression stockings: figure 4 position EOB with supervision Donning Digital Strategist socks: same as above Donning Darco shoes: min to mod cues for management of velcro to conserve energy and promote success Recommended to patient to leave velcro strap secured across toes to reduce difficulty of task, pt required one verbal cue to follow through with this instruction Equipment/tools: none Toileting: Purpose of activity: to assess performance with toileting in bathroom with standard toilet Set up: standard toilet (approx. 16) Transfer Assist: CGA with RW Cues: mod cues for safety management with RW for transfer to/from toilet and within bathroom navigating transfer to standing at sink for hand hygiene Hygiene: requires cues to attend to posterior hygiene due to patient not able to sense whether she has had BM Clothing management: n/e Equipment: RW, wall mounted grab bar on R wall Recommendations: perform during day time with nursing staff Oral Hygiene: Set up: in standing at sink Assist: supervised Cues: one verbal cues to rinse tooth brush after brushing teeth; additional cueing for positioning of RW at sink during hand hygiene/oral hygiene Equipment: RW Recommendations: reinforced recommendation to perform these tasks at sink daily with nursing staff standing by for safety. Pt agrees. Patient Status at the End of the Therapy Session The patient was left in the: bed with the: Call marroquin in reach Patient Status at the End of the Therapy Session Comments: nurse updated Patient/Family Education: Education Topics Topics: pressure relief when sitting upright (chair, recliner, w/c, etc.), d/c planning, skin integrity, increasing OOB activity with toileting in bathroom during daytime, performing oral hygiene in standing at sink for same reason Activity/Work/Community: Balanced schedule, Importance of out of bed activity Braces and Equipment: Assistive device/technique Mobility, Transfers, and Gait: Functional transfers Safety: Fall prevention Learner Learner: Patient Method: Demonstration, Verbal Team Communication Communicated with: Nurse When: Prior to therapy session, After therapy session By: [id number] communication, Other (secure chat) About: Nurse: plan for session, results of session, recommendations to faciltiate increased OOB activity ASSESSMENT: Della Browning was received for OT treatment session supine in bed and reluctantly agreeable to OT. Focus of session on performance of MOCA to review cognitive challenges as well as promoting participation in mobility-related ADL. Patient demonstrates fair progress toward goals as evidenced by improved pain control this date and gradual buy in to increasing OOB mobility-related activity during the day. Pt remains limited by pain and does demonstrate some self- limiting behaviors as well. Patient remains appropriate for skilled OT services via the Transitions Rehab Program (TRP) at increased frequency and duration to promote optimal return of function and establish safe d/c plan. D/c recomme ndation is [facility]RES at this time, however will continue to pursue home discharge given lack of bed offers. Continue per POC. PLAN: Frequency: Times per week Times Per Week: 2-5 Frequency Comments: through the Transitional Rehab Team Intensity: 15-45 minutes, 30-60 minutes Duration Comments: Duration of TRP Recommended Discharge Destination: Subacute rehabilitation Recommended Discharge Destination Comments: Given barriers to ANDRES, will pursue home d/c Recommended Discharge Services Therapy Specific Services: Occupational therapy, Physical therapy Equipment Recommended: To be determined Equipment Recommended Comments: May require: wheelchair, 2nd commode, rails from sidewalk to home entrance ramp Next Session to Include: medication mgmt, mobility-related ADL GRUPO HAWLEY OT, 08/19/2023, 14:57 * Eduardo Duval PA-C - 08/19/2023 0849 EDT Acute Care Surgery Progress Note Service Date: 08/19/2023 Admit Date: 06/13/2023 23:23 Procedure: Nec fasc debridement x2 (OSH) Serial debridement, repair rectal injury (06/14) Additional debridement, washout (06/16) Additional debridement, washout, partial closure (06/18) Washout, wound vac change (06/25) Wound vac change (07/09) Split thickness skin graft (07/30) Chief Complaint: NSTI 24 Hour Events: - None Subjective Doing well, planning to get outside today. Worked with OT today. Objective Vital Signs: Temp: [36.7 ??C (98 ??F)-37.1 ??C (98.8 ??F)] , Heart Rate: --, Pulse: --, Pulse From Oximetry: [77 BPM-100 BPM] , Resp: [18] , BP: (123-144)/(58-65) , SpO2: [95 %-98 %] Physical Exam: General Appearance: alert, cooperative, no distress Lung: clear to auscultation bilaterally, non labored breathing Heart: regular rate and rhythm Abdomen: soft, nontender, nondistended Extremities: warm and well perfused, no edema Incision(s)/Wound(s): Dressings were already changed for both graft and donor site for the day. Labs: I/O: Intake/Output Summary (Last 24 hours) at 08/19/2023 0850 Last data filed at 08/19/2023 0700 Gross per 24 hour Intake 1200 ml Output -- Net 1200 ml I&O By Type - 3 Shifts Including Current In: 720 [P.O.:720] Out: - Labs: Recent Labs 08/19/23 0734 WBC 7.82 RBC 3.45* HGB 9.6* HCT 28.6* MCV 83 MCH 27.8 MCHC 33.6 PLT 325 NEUTROABS 4.65 Recent Labs 08/19/23 0734 NA 136 K 4.5 CL 101 CO2 22 BUN 26 CREATININE 0.56 CALCIUM 9.9 No results for input(s): PROTIME, INR, PTT in the last 72 hours. No results for input(s): TBIL, ALKPHOS, AST, ALT, LIPASE, AMYLASE in the last 72 hours. No results for input(s): PHISTAT, PCOISTAT, POISTAT, POCTCO2, E6DDNOVL, POCFIO2 in the last 72 hours. No results for input(s): CK, MB, CKMBINDEX, TROPONINI in the last 72 hours. Assessment 52 y.o. female with a history of HTN and T2DM who presented as a transfer from [facility] on 06/12 with necrotizing fasciitis. S/p debridement x2 at OSH and s/p debridement at [facility] on 06/14.Post-operative bradycardic arrest x2 early in hospital course, suspected heart block vs vagal event. Recovered normal cardiac function, EP cards signed off. Had transferred to floor however on 07/02 required transfer to SICU for hypoxic respiratory failure secondary to atelectasis/mucous plugging. Intubated for bronchoscopy, now extubated and stable on nasal cannula. Doing well with respiratory therapy. Was undergoing local wound care and serial debridements, as well as pulmonary toilet. Wound site now grafted with split thickness skin graft on 07/30. Continues to recover well from skin graft. Will continue to monitor and do dressing changes MWF. Now with rectal tube and vuong removed, voiding and stooling spontaneously. Continue to work with PT in order to be conditioned enough to go home rather than [facility]RES. Whoever changes bandages tomorrow please take pictures of the graft site and the donor site otherwise would recommend dressings come down regardless to get updated pictures. Plan Multimodal pain control RLE graft dressing changes every other day and prn when soiled Wash w/ vashe. Xeroform, 12x12 gauze (fluffed) x 2 over xerform, top with 12x12 gauze and kerlix orband-net Donor site w/ BID dressing changes w/ nursing Wet-to-dry 4x4 gauze w/ sterile saline, cover w/ ABD, wrap w/ Kerlix RT for airway clearance Q4H, Greta Consistent carbohydrate diet, Endocrine following, appreciate their assistance with DM management 1. Lantus: Continue 48 units once daily 2. Aspart: 12 units if patient eats entire meal, and 6 units if patient eats 50% of meal, starting w lunch. Hold if NPO 3. Aspart SSI: Dosing regimen weight between 76-100 kg BG Units 66-140 0 141-180 2 181-210 3 211-250 5 251-299 7 > 299 11 4. Aspart HS: 5 units at HS if BG > 250 and recheck BG at midnight 5. Continue Metformin 500mg PO BID w Breakfast and Dinner consider increasing to 1000 mg BID as tolerated 6. FS: AC/HS/PRN Rectal tube removed Nystatin powder BID ordered to perianal/gluteal cleft skin Lasix 40mg PO daily Continue bedtime seroquel 25 mg at bedtime Encourage aggressive IS Labs every Saturday, Activity as tolerated, encourage physical therapy to work with her. Only precautions include no sliding/shearing forces on RLE wound and no sitting for prolonged periods of time. Okay to sit up for meals and while working with physical therapy, but minimize direct sitting pressure on graft for more than an hour at a time VTE prophylaxis: Pharmacologic Prophylaxis: Enoxaparin (Lovenox) 40 mg SQ daily Dispo: pending clinical course Eduardo Duval PA-C 08/19/2023 8:50 Pager #[phone] * Melinda Lassiter, PT - 08/19/2023 0849 EDT The Rehabilitation Therapy Acute Therapy [facility] Physical Therapy Contact Note Date of Service: 08/19/2023 Ms Browning was working with OT when PT attempted to see her at 0825. She reports her right leg remains painful but she has been out of bed to the wheelchair each day. PT will follow up in the next couple of days Melinda Lassiter PT 08/19/2023 8:49 * Adali Jackson DO - 08/17/2023 0913 EDT Endocrine/Diabetes Follow Up/Progress Note Admit Date: 06/13/2023 Hospital day LOS: 65 days Date of Service: 08/17/2023 Reason for Following: T2DM Inpatient glycemic management, Necrotizing Fasciitis HPI: 52 y/o F with PMH of T2 DM, HTN, Anxiety/Depression, admitted via ER with R Gluteal Necrotizing Fasciitis 06/12, complicated by Post-operative bradycardic arrest x2 early in hospital course, suspected heart block vs vagal event. Recovered normal cardiac function, EP cards signed off and has hadpersistent respiratory complications. She has undergone serial washouts/debridements and wound vac placements, had skin graft on 07/30 Subjective: Patient reports feeling well, and offers no new complaints. Pt reports she is comparing One Touch Verio FS test readings w POC glucose reading. Intially was reading her glucometer upside down, thinking numbers were off. Reoriented glucometer for Pt, All readings within ~ 10 points w POC glucose. Diabetes History: Onset: ~ 10-15 yr ago Control: A1C 8.2 on 06/13 Complications: Peripheral Neuropathy, infected wound Home Regimen: On no meds at home Says previously she had taken insulin and metformin. Tries to watch diet SBGM and Self Care: Stopped taking FS Current Diet: Regular (added Consistent Carb) Social Information: Single, Lives in [facility], has male partner. 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 Unsure of family history maybe grandparents w DM Regular Diabetes Provider: PCP ROS: No N/V No CP/SOB No fevers/chills Objective/Physical Exam: VS: BP: 130/68 Pulse: 84 Heart Rate: 79 BPM Resp: 20 Temp: 36.9 ??C (98.4 ??F) SpO2: 97 % O2 Flow Rate (L/min): 0 l/min O2 Device: None FIO2 %: 21 % Weight: Weight : 80.7 kg (178 lb) Body mass index is 31.54 kg/m??. Food Intake: DIET REGULAR Activity:bedrest Exam: Sitting up in bed, On RA breathing comfortable. A&O x4 Bulky dressing is now covering donor site on lateral R upper thigh. Data Review: Labs: Recent Labs 08/14/23 1744 08/14/23 2043 08/15/23 0805 08/15/23 1138 08/15/23 1806 08/15/23 2120 08/16/23 0818 08/16/23 1159 08/16/23 1708 08/16/23 1748 08/16/23 2159 08/17/23 0702 GLUCOSEPOC 143* 225* 166* 107* 153* 130* 140* 215* 104* 143* 177* 150* Lab Results Component Value Date HGBA1C 8.2 (H) 06/14/2023 Lab Results Component Value Date SERGLU 166 (H) 08/15/2023 NA 137 08/15/2023 K 4.3 08/15/2023 CL 103 08/15/2023 CO2 23 08/15/2023 BUN 24 08/15/2023 CREATININE 0.54 08/15/2023 CALCIUM 9.6 08/15/2023 Assessment 52 y/o F with 10-15 yr H/O T2 DM, manages with dietary measures, A1C is uncontrolled. Has PMH of HTN, Anxiety/Depression, admitted via ER with R Gluteal Necrotizing Fasciitis 06/12, complicated by Post-operative bradycardic arrest x2 early in hospital course, suspected heart block vs vagal event. Recovered normal cardiac function, EP cards signed off and has had persistent respiratory complications. She has undergone serial washouts/debridements and wound vac placements. Renal function WNL. Had split thickness skin graft to buttock wound on 07/30. Mid dose metformin began yesterday, tolerating w/o problem. Tried tapering aspart dosing at breakfast resulting in pre-lunch hyperglycemia. Will return to previous asprt dose. Follow blood sugar response. Blood sugar within target range in AM. No change in Lantus dose today New drainage from donor site. Unsure if this represents infection? This may affect her blood sugars. Will monitor. Pt shows interest in her DM self management and is motivated to continue working on blood sugars once discharged. Dexcom sensors have been ordered and ready in pharmacy. Maite Hua RN CDE will assist Pt with its application and use week of 08/18. Plan: 1. Lantus: Continue 48 units once daily 2. Aspart: 8 units given this AM w breakfast Return to 12 units if patient eats entire meal, and 6 units if patient eats 50% of meal, starting w lunch. Hold if NPO 3. Aspart SSI: Dosing regimen weight between 76-100 kg BG Units 66-140 0 141-180 2 181-210 3 211-250 5 251-299 7 > 299 11 4. Aspart HS: 5 units at HS if BG > 250 and recheck BG at midnight 5. Continue Metformin 500mg PO BID w Breakfast and Dinner consider increasing to 1000 mg BID as tolerated 6. FS: AC/HS/PRN 7. Will begin use of Dexcom CGM week of 08/18, education per Maite Hua RN CDE. 8. Consider introduction of the newer non-insulin agents (GLP1/SGLT2) as adjunct therapy to insulin, once closer to discharge, perhaps CGM 9. Will continue to follow with you. Discharge Plan: TBD Adali Jackson DO 08/17/2023 9:58 Please note this attending does not write any orders, rather, only provides the above recommendations. * Grupo Hawley OT - 08/16/2023 1220 EDT The Rehabilitation Therapy Acute Therapy [facility] Occupational Therapy Encounter Note Date of Service: 08/16/2023 Session #: 3 Precautions: Avoid shearing on bottom, AAT, up for no more than 1 hour, regular diet SUBJECTIVE: Subjective Statements Patient/caregiver states: so we're taking a shower? OBJECTIVE: Interventions Completed Today: Occupational Therapy Today At: Time: 1037 Total Treatment Time (minutes): 49 Timed Code Treatment Minutes: 49 Present for the Therapy Session Comments: Nurse and MD in to assess wound during and after shower Interventions Included Procedures: Self-care/home management Bathing/Showering: Gather supplies: not the focus of session Set up: from shower bench with hand held shower head and wall mounted grab bars Transfer: ambulates with RW to/from shower room with CGA, min cues for safety with RW UB bathing/drying: performs in seated with dis. Supervision for safety Assist: supervision only Cues: none LB bathing/drying: Assist: Supervision for seated LB bathing with exception of Ibis VEGA, which she required max A due to pain at skin donor site Close supervision in standing to bathe backside with one hand supporting balance on grab bar Cues: min cues for encouragement and technique with standing related bathing Equipment/tools: shower bench, grab bars, hand held shower head Functional Mobility Equipment: RW Environment: from room to bathroom (approx. 35-45 ft) Task: Assist: CGA/SBA Cues: min cues for safety with footwear (straps coming undone) as well as for technique with step up into shower room Patient Status at the End of the Therapy Session The patient was left in the: bed with the: Call marroquin in reach Patient Status at the End of the Therapy Session Comments: nurse and MD present, MD to re-dress wound Patient/Family Education: Education Topics Topics: pressure relief in w/c, d/c planning, skin integrity Activity/Work/Community: Balanced schedule, Importance of out of bed activity Braces and Equipment: Assistive device/technique Mobility, Transfers, and Gait: Functional transfers Safety: Fall prevention Learner Learner: Patient Method: Demonstration, Verbal Team Communication Communicated with: Nurse, Physician When: Prior to therapy session, After therapy session By: [id number] communication, Other (secure chat) About: Nurse: plan for session, results of session MD: plan for session, wound care management ASSESSMENT: Della Browning was received for OT treatment session in bed and agreeable to OT session. Focus ofsession on assessing performance with showering routine. Patient demonstrates good progress toward goals as evidenced by tolerance for shower, good ability to bathe self with only assist required to reach R distal lower extremity due to pain at skin donor site. Pt utilized RW for transfer to/from shower, grab bars for stabilization in standing during shower, and shower bench for majority of shower to conserve energy. Supervision provided to maintain safety. Patient remains appropriate for skilled OT services via the Transitions Rehab Program (TRP) at increased frequency and duration to promote optimal return of function and establish safe d/c plan. D/c recommendation is ANDRES due to patient being below PLOF, however given barriers to ANDRES will continue to progress in this setting with goal of d/c home with SO support. Continue per POC. PLAN: Frequency: Times per week Times Per Week: 2-5 Frequency Comments: through the Transitional Rehab Team Intensity: 15-45 minutes, 30-60 minutes Duration Comments: Duration of TRP Recommended Discharge Destination: Subacute rehabilitation Recommended Discharge Destination Comments: Given barriers to ANDRES, will pursue home d/c Recommended Discharge Services Therapy Specific Services: Occupational therapy, Physical therapy Equipment Recommended: To be determined Equipment Recommended Comments: May require: wheelchair, 2nd commode, rails from sidewalk to home entrance ramp Next Session to Include: cognitive screen, medication mgmt [facility]UPO [facility] OT, 08/16/2023, 12:22 * Nabila English NP - 08/16/2023 1215 EDT Endocrine/Diabetes Follow Up/Progress Note Admit Date: 06/13/2023 Hospital day LOS: 64 days Date of Service: 08/16/2023 Reason for Following: T2DM Inpatient glycemic management, Necrotizing Fasciitis HPI: 52 y/o F with PMH of T2 DM, HTN, Anxiety/Depression, admitted via ER with R Gluteal Necrotizing Fasciitis 06/12, complicated by Post-operative bradycardic arrest x2 early in hospital course, suspected heart block vs vagal event. Recovered normal cardiac function, EP cards signed off and has hadpersistent respiratory complications. She has undergone serial washouts/debridements and wound vac placements, had skin graft on 07/30 Subjective: Pt reports team found drainage from her donor site. She is somewhat discouraged by thisfinding. Pt reports she is comparing One Touch Verio FS test readings w POC glucose reading. Intially was reading her glucometer upside down, thinking numbers were off. Reoriented glucometer for Pt, All readings within ~ 10 points w POC glucoses. Diabetes History: Onset: ~ 10-15 yr ago Control: A1C 8.2 on 06/13 Complications: Peripheral Neuropathy, infected wound Home Regimen: On no meds at home Says previously she had taken insulin and metformin. Tries to watch diet SBGM and Self Care: Stopped taking FS Current Diet: Regular (added Consistent Carb) Social Information: Single, Lives in [facility], has male partner. 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 Unsure of family history maybe grandparents w DM Regular Diabetes Provider: PCP ROS: No N/V No CP/SOB No fevers/chills Objective/Physical Exam: VS: BP: 140/67 Pulse: 84 Heart Rate: 84 BPM Resp: 18 Temp: 36.7 ??C (98 ??F) SpO2: 98 % O2 Flow Rate (L/min): 0 l/min O2 Device: None FIO2 %: 21 % Weight: Weight : 80.7 kg (178 lb) Body mass index is 31.54 kg/m??. Food Intake: DIET REGULAR Activity:bedrest Exam: Sitting up in bed, On RA breathing comfortable. A&O x4 Bulky dressing is now covering donor site on lateral R upper thigh. Data Review: Labs: Recent Labs 08/13/23 1744 08/13/23 2209 08/14/23 0743 08/14/23 1138 08/14/23 1744 08/14/23 2043 08/15/23 0805 08/15/23 1138 08/15/23 1806 08/15/23 2120 08/16/23 0818 08/16/23 1159 GLUCOSEPOC 144* 206* 166* 155* 143* 225* 166* 107* 153* 130* 140* 215* Lab Results Component Value Date HGBA1C 8.2 (H) 06/14/2023 Lab Results Component Value Date SERGLU 166 (H) 08/15/2023 NA 137 08/15/2023 K 4.3 08/15/2023 CL 103 08/15/2023 CO2 23 08/15/2023 BUN 24 08/15/2023 CREATININE 0.54 08/15/2023 CALCIUM 9.6 08/15/2023 Assessment 52 y/o F with 10-15 yr H/O T2 DM, manages with dietary measures, A1C is uncontrolled. Has PMH of HTN, Anxiety/Depression, admitted via ER with R Gluteal Necrotizing Fasciitis 06/12, complicated by Post-operative bradycardic arrest x2 early in hospital course, suspected heart block vs vagal event. Recovered normal cardiac function, EP cards signed off and has had persistent respiratory complications. She has undergone serial washouts/debridements and wound vac placements. Renal function WNL. Had split thickness skin graft to buttock wound on 07/30. Mid dose metformin began yesterday, tolerating w/o problem. Tried tapering aspart dosing at breakfast resulting in pre-lunch hyperglycemia. Will return to previous asprt dose. Follow blood sugar response. Blood sugar within target range in AM. No change in Lantus dose today New drainage from donor site. Unsure if this represents infection? This may affect her blood sugars. Will monitor. Pt shows interest in her DM self management and is motivated to continue working on blood sugars once discharged. Dexcom sensors have been ordered and ready in pharmacy. Maite Hua, RN CDE will assist Pt with its application and use week of 08/18. Plan: 1. Lantus: Continue 48 units once daily 2. Aspart: 8 units given this AM w breakfast Return to 12 units if patient eats entire meal, and 6 units if patient eats 50% of meal, starting w lunch. Hold if NPO 3. Aspart SSI: Dosing regimen weight between 76-100 kg BG Units 66-140 0 141-180 2 181-210 3 211-250 5 251-299 7 > 299 11 4. Aspart HS: 5 units at HS if BG > 250 and recheck BG at midnight 5. Continue Metformin 500mg PO BID w Breakfast and Dinner consider increasing to 1000 mg BID as tolerated 6. FS: AC/HS/PRN 7. Will begin use of Dexcom CGM week of 08/18, education per Maite Hua, RN CDE. 8. Consider introduction of the newer non-insulin agents (GLP1/SGLT2) as adjunct therapy to insulin, once closer to discharge, perhaps CGM 9. Will continue to follow with you. Discharge Plan: TBD Nabila English NP 08/16/2023 12:16 * Logan Ojeda DO - 08/16/2023 1114 EDT Acute Care Surgery Progress Note Service Date: 08/16/2023 Admit Date: 06/13/2023 23:23 Procedure(s): Nec fasc debridement x2 (OSH) Serial debridement, repair rectal injury (06/14) Additional debridement, washout (06/16) Additional debridement, washout, partial closure (06/18) Washout, wound vac change (06/25) Wound vac change (07/09) Split thickness skin graft (07/30) Chief Complaint: NSTI 24 Hour Events: - NAEO - Shower w/ OT this morning Subjective Doing well overall. Fluctuating, often severe burning pain at donor site. No other concerns or complaints this morning. Objective Vital Signs: Temp: [36.6 ??C (97.8 ??F)-36.7 ??C (98 ??F)] Heart Rate: [84 BPM] Pulse: [84] Pulse From Oximetry: [81 BPM-85 BPM] Resp: [18] BP: (131-140)/(59-73) SpO2: [98 %] I/O: Intake/Output Summary (Last 24 hours) at 08/16/2023 1114 Last data filed at 08/15/2023 1331 Gross per 24 hour Intake 480 ml Output 200 ml Net 280 ml No intake/output data recorded. Physical Exam: Gen: awake, no acute distress Resp: unlabored on room air Abd: soft, non-distended, non-tender Wounds/Incisions: graft site w/ well-healing epithelium, superomedial aspect still open without drainage or surrounding erythema. Donor site on R thigh w/ fresh epithelium, no exudate, appropriately tender. Psych: appropriate mood and affect Labs: CBC: Recent Labs 08/15/23 0750 WBC 7.27 RBC 3.14* HGB 8.8* HCT 26.1* MCV 83 MCH 28.0 MCHC 33.7 PLT 281 NEUTROABS 4.29 BMP: Recent Labs 08/15/23 0750 NA 137 K 4.3 CL 103 CO2 23 BUN 24 CREATININE 0.54 CALCIUM 9.6 Glucose: Glucose, POC Date/Time Value Ref Range Status 08/16/2023 08:18 140 (H) 70 - 100 mg/dL Final Assessment 52 y.o. female with a history of HTN and T2DM who presented as a transfer from [facility] on 06/12 with necrotizing fasciitis. S/p debridement x2 at OSH and s/p debridement at [facility] on 06/14.Post-operative bradycardic arrest x2 early in hospital course, suspected heart block vs vagal event. Recovered normal cardiac function, EP cards signed off. Had transferred to floor however on 07/02 required transfer to SICU for hypoxic respiratory failure secondary to atelectasis/mucous plugging. Intubated for bronchoscopy, now extubated and stable on nasal cannula. Doing well with respiratory therapy. Was undergoing local wound care and serial debridements, as well as pulmonary toilet. Wound site now grafted with split thickness skin graft on 07/30. Continues to recover well from skin graft. Will continue to monitor and do dressing changes MWF. Now with rectal tube and vuong removed, voiding and stooling spontaneously. Plan Multimodal pain control RLE graft dressing changes every other day and prn when soiled Wash w/ vashe. Xeroform, 12x12 gauze (fluffed) x 2 over xerform, top with 12x12 gauze and kerlix orband-net Donor site w/ BID dressing changes w/ nursing Wet-to-dry 4x4 gauze w/ sterile saline, cover w/ ABD, wrap w/ Kerlix RT for airway clearance Q4H, Greta Consistent carbohydrate diet, Endocrine following, appreciate their assistance with DM management Rectal tube removed Nystatin powder BID ordered to perianal/gluteal cleft skin Ensure to cycle balloon daily as per nursing/floor protocol Lasix 40mg PO daily Continue bedtime seroquel 25 mg at bedtime Encourage aggressive IS Labs every Saturday, Activity as tolerated, encourage physical therapy to work with her. Only precautions include no sliding/shearing forces on RLE wound and no sitting for prolonged periods of time. Okay to sit up for meals and while working with physical therapy, but minimize direct sitting pressure on graft for more than an hour at a time VTE prophylaxis: Pharmacologic Prophylaxis: Enoxaparin (Lovenox) 40 mg SQ daily Dispo: pending clinical course LOGAN OJEDA DO 08/16/2023 11:14 ACS; Pager: [phone] * Melinda Lassiter, PT - 08/15/2023 1501 EDT Rehabilitation Therapy Acute Therapies [facility] Physical Therapy Encounter Note Date of Service: 08/15/2023 Subjective/Objective Subjective I can't feel when I have to have a bowel movement or if anything is happening back there, so I have a brief on. Pain pt reports right thigh donor site is more painful and feeling tight Objective Intervention completed today: Time: 1120 Total care time: 17 minutes. Vital signs have been stable with interventions and were not monitored. Vuong and rectal tube have been removed; Therapeutic activity Supine<->sit with head of bed flat; indpendent Sit to stand from edge of bed to RW; minimal assist; required multiple attempts Ambulation; ambulated 200 feet with 2 standing rest breaks. Left foot drop during swing phase, pt keeping both feet within walker; No signs of LE buckling; loss of balance or shortness of breath noted. Pt requested to remain up in w/c to eat lunch; stand to sit; supervision; Patient/Family Education: Topic: Activity pacing/Energy conservation Assistive device/technique Balance Bed mobility Discharge planning Gait Home program Positioning Role of therapy Safety Transfers Learner: patient Method: verbal and demonstration Barriers to Learning: none noted Outcome: verbalized understanding and returned demonstration Team Communication: Pt status discussed with Nursing Assessment/Plan Assessment Ms Browning demonstrates steady progress with improved activity tolerance. Given her rate of progress from a functional mobility perspective, anticipate she will be able to return to home setting with family assist. She will require follow up for LE bracing for left foot drop. She needs to be able to negotiate steps for home entry Plan Continue per plan of care Recommended Discharge Destination: Home with family Recommended Discharge Services: Home health physical therapy Recommended Equipment Needs: Patient has all necessary equipment Other recommendations: No other consults recommended at this time Primary Therapist: Pager: [phone] Melinda Lassiter PT 08/15/2023 15:01 * Isabell Nolasco MD - 08/15/2023 1231 EDT Acute Care Surgery Progress Note Service Date: 08/15/2023 Admit Date: 06/13/2023 23:23 Procedure(s): Nec fasc debridement x2 (OSH) Serial debridement, repair rectal injury (06/14) Additional debridement, washout (06/16) Additional debridement, washout, partial closure (06/18) Washout, wound vac change (06/25) Wound vac change (07/09) Split thickness skin graft (07/30) Chief Complaint: NSTI 24 Hour Events: - NAEO Subjective Sleeping, did not wake. No acute events per nursing. Doing well. Objective Vital Signs: Temp: [36.6 ??C (97.8 ??F)-36.9 ??C (98.4 ??F)] Heart Rate: [88 BPM-94 BPM] Pulse: [78] Pulse From Oximetry: [8 BPM-88 BPM] Resp: [18] BP: (126-155)/(61-71) SpO2: [98 %-99 %] I/O: Intake/Output Summary (Last 24 hours) at 08/15/2023 1231 Last data filed at 08/15/2023 0815 Gross per 24 hour Intake 1940 ml Output 4250 ml Net -2310 ml I&O By Type - 3 Shifts Including Current In: 1460 [P.O.:1460] Out: 3025 [Urine:3025] Physical Exam: Gen: asleep, laying in bed Resp: unlabored on room air Abd: soft, non-distended, non-tender : dressing over donor site and Tegaderm over graft site, no strikethrough Psych: appropriate mood and affect Labs: CBC: Recent Labs 08/15/23 0750 WBC 7.27 RBC 3.14* HGB 8.8* HCT 26.1* MCV 83 MCH 28.0 MCHC 33.7 PLT 281 NEUTROABS 4.29 BMP: Recent Labs 08/15/23 0750 NA 137 K 4.3 CL 103 CO2 23 BUN 24 CREATININE 0.54 CALCIUM 9.6 Glucose: Glucose, POC Date/Time Value Ref Range Status 08/15/2023 11:38 107 (H) 70 - 100 mg/dL Final Assessment 52 y.o. female with a history of HTN and T2DM who presented as a transfer from [facility] on 06/12 with necrotizing fasciitis. S/p debridement x2 at OSH and s/p debridement at [facility] on 06/14.Post-operative bradycardic arrest x2 early in hospital course, suspected heart block vs vagal event. Recovered normal cardiac function, EP cards signed off. Had transferred to floor however on 07/02 required transfer to SICU for hypoxic respiratory failure secondary to atelectasis/mucous plugging. Intubated for bronchoscopy, now extubated and stable on nasal cannula. Doing well with respiratory therapy. Was undergoing local wound care and serial debridements, as well as pulmonary toilet. Wound site now grafted with split thickness skin graft on 07/30. Continues to recover well from skin graft. Will continue to monitor and do dressing changes MWF. Now with rectal tube and vuong removed, voiding and stooling spontaneously. Plan Multimodal pain control RLE graft dressing with Xeroform and 12x12 gauze, change MWF Maintain donor site dressing RT for airway clearance Q4H, DuoNebs Consistent carbohydrate diet, Endocrine following, appreciate their assistance with DM management Rectal tube removed Nystatin powder BID ordered to perianal/gluteal cleft skin Ensure to cycle balloon daily as per nursing/floor protocol Lasix 40mg PO daily Continue bedtime seroquel 25 mg at bedtime Encourage aggressive IS Labs every Saturday, Activity as tolerated, encourage physical therapy to work with her. Only precautions include no sliding/shearing forces on RLE wound and no sitting for prolonged periods of time. Okay to sit up for meals and while working with physical therapy, but minimize direct sitting pressure on graft for more than an hour at a time VTE prophylaxis: Pharmacologic Prophylaxis: Enoxaparin (Lovenox) 40 mg SQ daily Dispo: pending clinical course ISABELL NOLASCO MD 08/15/2023 12:31 Pager: [phone] * Nabila English NP - 08/15/2023 7259 EDT Endocrine/Diabetes Follow Up/Progress Note Admit Date: 06/13/2023 Hospital day LOS: 63 days Date of Service: 08/15/2023 Reason for Following: T2DM Inpatient glycemic management, Necrotizing Fasciitis HPI: 52 y/o F with PMH of T2 DM, HTN, Anxiety/Depression, admitted via ER with R Gluteal Necrotizing Fasciitis 06/12, complicated by Post-operative bradycardic arrest x2 early in hospital course, suspected heart block vs vagal event. Recovered normal cardiac function, EP cards signed off and has hadpersistent respiratory complications. She has undergone serial washouts/debridements and wound vac placements, had skin graft on 07/30 Subjective: Donor and graft sites still uncomfortable. Is glad she is now able to walk in the [place]ueroa.Appetite is good. Says she took Metformin in the past w/o side effects. Pt reports she is comparing One Touch Verio FS test readings w POC glucose reading. Intially was reading her glucometer upside down, thinking numbers were off. Reoriented glucometer for Pt, All readings within ~ 10 points w POC glucoses. Diabetes History: Onset: ~ 10-15 yr ago Control: A1C 8.2 on 06/13 Complications: Peripheral Neuropathy, infected wound Home Regimen: On no meds at home Says previously she had taken insulin and metformin. Tries to watch diet SBGM and Self Care: Stopped taking FS Current Diet: Regular (added Consistent Carb) Social Information: Single, Lives in [facility], has male partner. 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 Unsure of family history maybe grandparents w DM Regular Diabetes Provider: PCP ROS: No N/V No CP/SOB No fevers/chills Objective/Physical Exam: VS: BP: 126/61 Pulse: 78 Heart Rate: 88 BPM Resp: 18 Temp: 36.6 ??C (97.8 ??F) SpO2: 99 % O2 Flow Rate (L/min): 0 l/min O2 Device: None FIO2 %: 21 % Weight: Weight : 80.7 kg (178 lb) Body mass index is 31.54 kg/m??. Food Intake: DIET REGULAR Activity:bedrest Exam: Sitting up in bed, On RA breathing comfortable. A&O x4 Graft and donor sites are clean, intact, w/o induration. Spoke w Pt about restarting Metformin as adjunct therapy w Insulin. She agreed w plan. Data Review: Labs: Recent Labs 08/12/23 1119 08/12/23 1737 08/12/23 2135 08/13/23 0717 08/13/23 1136 08/13/23 1744 08/13/23 2209 08/14/23 0743 08/14/23 1138 08/14/23 1744 08/14/23 2043 08/15/23 0805 GLUCOSEPOC 141* 149* 153* 191* 132* 144* 206* 166* 155* 143* 225* 166* Lab Results Component Value Date HGBA1C 8.2 (H) 06/14/2023 Lab Results Component Value Date SERGLU 166 (H) 08/15/2023 NA 137 08/15/2023 K 4.3 08/15/2023 CL 103 08/15/2023 CO2 23 08/15/2023 BUN 24 08/15/2023 CREATININE 0.54 08/15/2023 CALCIUM 9.6 08/15/2023 Assessment 52 y/o F with 10-15 yr H/O T2 DM, manages with dietary measures, A1C is uncontrolled. Has PMH of HTN, Anxiety/Depression, admitted via ER with R Gluteal Necrotizing Fasciitis 06/12, complicated by Post-operative bradycardic arrest x2 early in hospital course, suspected heart block vs vagal event. Recovered normal cardiac function, EP cards signed off and has had persistent respiratory complications. She has undergone serial washouts/debridements and wound vac placements. Renal function WNL. Had split thickness skin graft to buttock wound on 07/30. Blood sugars remain mildly elevated, will increase Lantus slightly, keep aspart at current doses and start mid-dose Metformin. Follow blood sugar response. Pt shows interest in her DM self managementand is motivated to continue working on blood sugars once discharged. Dexcom sensors have been ordered and ready in pharmacy. Maite Hua RN CDE will assist Pt with its application and use week of 08/18. Plan: 1. Lantus: Slight Increase from 46 to 48 units once daily 2. Aspart: Continue 12 units if patient eats entire meal, and 6 units if patient eats 50% of meal, Hold if NPO 3. Aspart SSI: Dosing regimen weight between 76-100 kg BG Units 66-140 0 141-180 2 181-210 3 211-250 5 251-299 7 > 299 11 4. Aspart HS: 5 units at HS if BG > 250 and recheck BG at midnight 5. Begin Metformin 500mg PO BID w Breakfast and Dinner first dose this AM 6. FS: AC/HS/PRN 7. Will begin use of Dexcom CGM week of 08/18, education per Maite Hua RN CDE. 8. Consider introduction of the newer non-insulin agents (GLP1/SGLT2) as adjunct therapy to insulin, once closer to discharge, perhaps CGM 9. Will continue to follow with you. Discharge Plan: TBD Nabila English NP 08/15/2023 11:07 * Nabila English NP - 08/14/2023 1601 EDT Endocrine/Diabetes Follow Up/Progress Note Admit Date: 06/13/2023 Hospital day LOS: 62 days Date of Service: 08/14/2023 Reason for Following: T2DM Inpatient glycemic management, Necrotizing Fasciitis HPI: 52 y/o F with PMH of T2 DM, HTN, Anxiety/Depression, admitted via ER with R Gluteal Necrotizing Fasciitis 06/12, complicated by Post-operative bradycardic arrest x2 early in hospital course, suspected heart block vs vagal event. Recovered normal cardiac function, EP cards signed off and has hadpersistent respiratory complications. She has undergone serial washouts/debridements and wound vac placements, had skin graft on 07/30 Subjective: Feeling better as able to sit up in chair, walk w PT. Appetite is good. Says Graft donor site is uncomfortable. Diabetes History: Onset: ~ 10-15 yr ago Control: A1C 8.2 on 06/13 Complications: Peripheral Neuropathy, infected wound Home Regimen: On no meds at home Says previously she had taken insulin Tries to watch diet SBGM and Self Care: Stopped taking FS Current Diet: Regular (added Consistent Carb) Social Information: Single, Lives in [facility], has male partner. 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 Unsure of family history maybe grandparents w DM Regular Diabetes Provider: PCP ROS: No N/V No CP/SOB No fevers/chills Objective/Physical Exam: VS: BP: (!) 155/71 Pulse: 83 Heart Rate: 94 BPM Resp: 18 Temp: 36.8 ??C (98.3 ??F) SpO2: 98 % O2 Flow Rate (L/min): 0 l/min O2 Device: None FIO2 %: 21 % Weight: Weight : 80.7 kg (178 lb) Body mass index is 31.54 kg/m??. Food Intake: DIET REGULAR Activity:bedrest Exam: Sitting up in chair, eating an early lunch. On RA breathing comfortable. A&O Data Review: Labs: Recent Labs 08/11/23 1715 08/11/23202308/12/23 0651 08/12/23 1119 08/12/23 1737 08/12/23 2135 08/13/23 0717 08/13/23 1136 08/13/23 1744 08/13/23 2209 08/14/23 0743 08/14/23 1138 GLUCOSEPOC 119* 189* 168* 141* 149* 153* 191* 132* 144* 206* 166* 155* Lab Results Component Value Date HGBA1C 8.2 (H) 06/14/2023 Lab Results Component Value Date SERGLU 164 (H) 08/12/2023 NA 137 08/12/2023 K 3.8 08/12/2023 CL 105 08/12/2023 CO2 21 (L) 08/12/2023 BUN 17 08/12/2023 CREATININE 0.40 (L) 08/12/2023 CALCIUM 9.5 08/12/2023 Assessment 52 y/o F with 10-15 yr H/O T2 DM, manages with dietary measures, A1C is uncontrolled. Has PMH of HTN, Anxiety/Depression, admitted via ER with R Gluteal Necrotizing Fasciitis 06/12, complicated by Post-operative bradycardic arrest x2 early in hospital course, suspected heart block vs vagal event. Recovered normal cardiac function, EP cards signed off and has had persistent respiratory complications. She has undergone serial washouts/debridements and wound vac placements. Renal function WNL. Had split thickness skin graft to buttock wound on 07/30. Blood sugar 166 fasting this AM. Has episodic rise in blood sugar after eating. Will make slight increases Lantus and aspart today. Will continue to monitor and make adjustments as needed. Dexcom G-7 order has been placed. Plan: 1. Lantus: Increase Lantus from 44 to 46 units once daily 2. Aspart: Slight increase from 11 to 12 units if patient eats entire meal, inject 6 units if patient eats 50% of meal, Hold if NPO 3. Aspart SSI: Dosing regimen weight between 76-100 kg BG Units 66-140 0 141-180 2 181-210 3 211-250 5 251-299 7 > 299 11 4. Aspart HS: 5 units at HS if BG > 250 and recheck BG at midnight 5. FS: AC/HS/PRN 6. Pt will benefit from Diabetes education as likely will need to discharge on insulin will send for Dexcom G7 to help with ease of FS and help with glycemic management 7. Consider introduction of non-insulin agents (GLP1/SGLT2) as adjunct therapy to insulin, once closer to discharge, perhaps CGM 8. Will continue to follow with you. Discharge Plan: TBD Nabila English NP 08/14/2023 16:01 * Grupo Hawley OT - 08/14/2023 1142 EDT [facility] Acute Therapy [facility] Occupational Therapy Encounter Note Date of Service: 08/14/2023 Session #: 2 Precautions: Avoid shearing on bottom, AAT, up for no more than 1 hour, regular diet SUBJECTIVE: Subjective Statements Patient/caregiver states: I wanna be able to walk up the hill OBJECTIVE: Interventions Completed Today: Occupational Therapy Today At: Time: 0945 Total Treatment Time (minutes): 50 Timed Code Treatment Minutes: 50 Present for the Therapy Session Comments: Nurse in to provide education on insulin injection Vital Signs Position/Activity: sitting EOB Blood Pressure (mmHg): 150/67 Heart Rate (bpm): 88 Oxygen Saturation (SpO2): 100% on RA Interventions Included Procedures: Self-care/home management, Therapeutic activities Skilled Discussion: Purpose: review TRP, goals of therapy with this program to facilitate d/c planning, progressing functional independence Cooper points: Review of home set up Review of DME Review of PLOF Review of available level of assist at home Review of medical history Education on skin integrity/pressure relief Recommendations: Relieve pressure every 30-60 if up in wheelchair Recommended pt stand or go for walk with nursing staff Dressing: Purpose of activity: to assess LB dressing LB dressing: don socks and darco shoes Set up: from seated EOB Assist: Picks up shoes/socks from floor with use of commode to stabilize for reach to floor-- discussed reachers Dons shoes/socks with figure four position MOD I Cues: none Equipment/tools: none Toileting: Purpose of activity: to assess toileting Set up: from EOB stand pivot to bSC Transfer Assist: Supervised Cues: cues for thoroughness with ching anal hygiene, pt states unable to feel rectum Hygiene: see cueing above Clothing management: pt not wearing pants/underwear Equipment: BSC Recommendations: discussed hygiene challenges and recommendation for thoroughness Functional Mobility: Equipment: RW Environment: from commode around bed to wheelchair (approx. 10-12 feet) Task: Assist: CGA/supervision Cues: none required, checks that w/c is locked-- good safety awareness Wheelchair Mobility: Set up: standard 20 wheelchaIR Assist: MoD I With brakes, leg rests swing in and manage height, appropriate sit<>stand to/from w/c Cues: none Patient Status at the End of the Therapy Session The patient was left in the: wheelchair with the: Call marroquin in reach Patient/Family Education: Education Topics Topics: pressure relief in w/c, d/c planning, IADL management, skin integrity Activity/Work/Community: Balanced schedule, Importance of out of bed activity Braces and Equipment: Assistive device/technique Mobility, Transfers, and Gait: Functional transfers Safety: Fall prevention Learner Learner: Patient Method: Demonstration, Verbal Team Communication Communicated with: Nurse, Primary physical therapist When: Prior to therapy session, After therapy session By: Nacc-de-zqca communication, Other (secure chat) About: Nurse: results of session, POC PT: timing of session ASSESSMENT: Della Browning was received for OT treatment session semi fowlers in bed and agreeable to OT. Focus of session on review of recent medical events, home set up, and d/c plan. Moved on to assess basic toilet tranfer from bed<>bsc and functional mobility with RW in room from bed> wheelchair. Education with patient on role of Transitional Rehab Program to progress her function in this setting with goal of d/c home if feasible. Pt agreeable and motivated. Pt has assist from [facility] for IADL management including groceries via public transportation. However, pt will likely require transportation to/from appointments, delivery medications and may require additional DME/equipment including wheelchair, 2nd commode, and likely need for accommodations for entrance to home (states there is an incline when leaving the house from the bottom of the ramp up to the sidewalk that she is concerned about managing with a wheelchair). Patient is appropriate for skilled OT services via the Transitions Rehab Program (TRP) at increased frequency and duration to promote optimal return of function and est ablish safe d/c plan. D/c recommendation is [facility]RES, however given barriers thus far anticipate patientwill be able to d/c home with home health and assist from [facility], however further rehabilitation in this setting is required. Continue per POC. PLAN: Frequency: Times per week Times Per Week: 2-5 Frequency Comments: through the Transitional Rehab Team Intensity: 15-45 minutes, 30-60 minutes Duration Comments: Duration of TRP Recommended Discharge Destination: Subacute rehabilitation Recommended Discharge Destination Comments: Given barriers to ANDRES, will pursue home d/c (see assessment) Recommended Discharge Services Therapy Specific Services: Occupational therapy, Physical therapy Equipment Recommended: To be determined Equipment Recommended Comments: May require: wheelchair, 2nd commode, rails from sidewalk to home entrance ramp Next Session to Include: shower assessment?, cognitive screen, medication mgmt GRUPO HAWLEY OT, 08/14/2023, 14:40 * Alix Blakely RN - 08/13/2023 1604 EDT Case Management progress note Chart reviewed: PT note 08/12 Given her level of progress and 17/09 home support, discussed potentialdc directly home when able. Await OT input The Department of Case Management and Social Work Case Management Progress Note Patient Name Level of Care and Accommodation Code: Patient Class: Medically Ready: Y/N Della Browning Acute Chcf Level 1 Inpatient n Primary Dx: Decisional Capacity: Y/N Primary Support/ CareGiver: Advance Directive Necrotizing fasciitis ([facility]) y N Advance Directives (For Healthcare) Healthcare Directive: No, patient does not have advance directive for healthcare treatment Information Provided on Healthcare Directives: Yes Information on Healthcare Directives Requested: No Disposition Information Appropriate to transfer back: Y/N Length of Stay (in days): Estimated Date of D/C: LTC Medicaid Status: N 61 08/27 N Primary Care Provider: AR/ANDRES/SNF referred: Y/N Bed Offers: Y/N Escalated to Leadership: Y/N UNKNOWN,PROVIDER N N N Mobility Level: Recommended D/C Location Payor: Bedside Mobility Assessment Tool (BMAT) Bedrest or non-weight bearing orders?: No Assessment Level 1-Sit & Shake: Pass Assessment Level 2-Stretch & Point: Pass Assessment Level 3-Stand: Fail Assessment Level 4-Step: Fail Mobility level determined: Mobility Level 3 use non-powered or powered standing and raising aid Number of caregivers reccommended: 1 Recommended Discharge Destination PT Recommended Discharge Destination: Subacute rehabilitation Pay[place] / Plan[place] /Product Type[place] / Barriers to Discharge N/a; remains medically acute for continued IP admission at [facility] Admit Date: 06/13/2023 23:23 Procedure(s): ?? Nec fasc debridement x2 (OSH) ?? Serial debridement, repair rectal injury (06/14) ?? Additional debridement, washout (06/16) ?? Additional debridement, washout, partial closure (06/18) ?? Washout, wound vac change (06/25) ?? Wound vac change (07/09) ?? Split thickness skin graft (07/30) Plan Level of Care: Acute/ IP Admission Point of Origin: [facility] Appropriate for Transfer Return vs Alternative Facility: N/a (reviewed with team 07/07, 07/10, week of 07/14, week of 07/22, week of 08/04). Discharge plan/ Estimated date: TBD Insurance/ LTC Medicaid Status: Medicaid Support Network: anya Lezama ([phone]); Henrietta Hensley ([phone]) (CM note 08/12) PT note 08/12 Given her level of progress and 17/09 home support, discussed potential dc directly home when able. Await OT input (CM Note 08/08:) Chart reviewed and updates received from Primary team in morning rounds. STSG site intact. Plan for removal of rectal tube/ address bowel meds. Team agrees that patient may be ready to list for Rehab setting early next week and will assess overall status for d/c readiness on Saturday. (CM Note 08/06:) One week out today from STSG (07/30) Continues with every other day dressing orders with xeroform/ gauze. (Orders for donor site dressing to remain intact x7days) Rectal tube remains in place and will be assessed for removal as appropriate by Attending. Current status and plan of care discussed with Primary team this morning in rounds. Do not anticipate readiness to list for [facility] facilities per therapy recommendations until next week (week of 08/11). (CM Note 08/04:) Provided check-in with patient today following dressing change by Provider. Brought patient hearing aid batteries to bedside. Remains medically acute for continued hospitalization due to recent STSG and current wound care regimen. Plan to list for Sub Acute Rehab setting once appropriate to transition to alternative level of care. Daily updates received from team. PER ATTENDING today: Xeroform and 12x12 gauze placed to graft, held in place with a #8 band net pant. Plan for dressing change every other day and when soiled. Will leave donor site dressing in place for 7 days. Once STSG is more sturdy, will remove rectal tube and vuong. 1 mg total of IV dilaudid given for dressing change and she tolerated it well. (Moo Monique MD) (CM Note 07/29:) Chart reviewed and current status discussed with Primary team this morning in rounds. Next wound vac change scheduled for 07/31. Acell has been applied weekly to wound bed with vac changes; goal for skin graft - date pending. Current LDA's: Indwelling catheter, Rectal Tube, Wound Vac Current Infusions: N/a Recommended for eventual transfer to a Sub Acute Rehab setting. This CM will list for facilities once closer to medical readiness for transfer/ week+ following skin graft. (Patient's residence is in [facility] with partner [place]). (CM Note 07/25:) Remains medically acute for continued inpatient care at [facility]. Last wound vac change with Acell application to wound bed yesterday 07/24. Next wound vac change scheduled for 07/31 Plan to list for Sub Acute Rehab once closer to medical readiness for transfer. (CM Note 07/22:) Chart reviewed and updates received from Primary team in morning rounds. Patient with necrotizing fasciitis with Wound vac application. Last change 07/16 with next change planned for tomorrow 07/23. Receiving Acell application to wound bed. Remains medically acute for ongoing wound management at [facility]. (CM Note 07/16:) Patient with Wound Vac change this morning (please refer to KATY Duval progress note). Replaced WV; using acellular matrix overlying wound bed with vendor following on site. May require another week of WV prior to further determination of treatment care plan. Per ongoing discussions with Primary team, patient is Not a candidate for transfer return to [facility] due to acuity of wound care requiring current services of ACS. Otherwise, CM is continuing to follow and will provide additional updates regarding any status changes as appropriate. (CM Note 07/14:) Chart reviewed and updates received this morning from Primary team in rounds. Plan for Wound Vac change this Sunday 07/16 with possible STSG dependent on assessment of wound bed. Patient asleep at time of CM visit. Discussed care with Nursing. Acute therapies following and currently recommending for short-term Sub Acute Rehab stay. Will listonce closer to medical readiness with more clear plan of care in place. Not currently getting up out of bed. WV, rectal tube, indwelling vuong cath intact. This CM will continue to follow and assist with coordination of disposition plan dependent on clinical course/ care team recommendations. Please reach out with any additional questions/ concerns, or acute changes in care plan in order toprovide patient with adequate supports. (CM Note 07/10:) Plan continues for WV reassessment on Friday 07/14 with possible skin graft pending following vac removal. Worked with PT today at bedside with eventual recommendations for a short-term Sub Acute Rehab stay. This CM will list for rehab facilities once closer to medical readiness for a transition to the next appropriate level of care. Will reassess clinical status Saturday following Wound Vac change. Please reach out with any additional questions/ concerns, or acute changes in care plan in order toprovide patient with adequate supports. E-Signature 08/13/23 16:06 * Carmen Vernon NP - 08/13/2023 1116 EDT Endocrine/Diabetes Follow Up/Progress Note Admit Date: 06/13/2023 Hospital day LOS: 61 days Date of Service: 08/13/2023 Reason for Following: T2DM Inpatient glycemic management, Necrotizing Fasciitis HPI: 52 y/o F with PMH of T2 DM, HTN, Anxiety/Depression, admitted via ER with R Gluteal Necrotizing Fasciitis 06/12, complicated by Post-operative bradycardic arrest x2 early in hospital course, suspected heart block vs vagal event. Recovered normal cardiac function, EP cards signed off and has hadpersistent respiratory complications. She has undergone serial washouts/debridements and wound vac placements, had skin graft on 07/30 Subjective: Sitting on edge of bed, has finished breakfast, states she is still struggling to move her bowels, states donor site is the most uncomfortable part at this point. Using rolling walking and ambulating on unit hoping to go outside in her wheelchair today. Has been doing some FS with nursing assistance, we discussed also starting to do some of the injections as well, she states this makes here nervous as she broke a needle off once. Diabetes History: Onset: ~ 10-15 yr ago Control: A1C 8.2 on 06/13 Complications: Peripheral Neuropathy, infected wound Home Regimen: On no meds at home Says previously she had taken insulin Tries to watch diet SBGM and Self Care: Stopped taking FS Current Diet: Regular (added Consistent Carb) Social Information: Single, Lives in [facility], has male partner. 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 Unsure of family history maybe grandparents w DM Regular Diabetes Provider: PCP ROS: Donor site sore - right thigh No N/V No CP/SOB No fevers/chills Objective/Physical Exam: VS: BP: 113/60 Pulse: 74 Heart Rate: 76 BPM Resp: 20 Temp: 36.7 ??C (98.1 ??F) SpO2: 98 % O2 Flow Rate (L/min): 0 l/min O2 Device: None FIO2 %: 21 % Weight: Weight : 80.7 kg (178 lb) Body mass index is 31.54 kg/m??. Food Intake: DIET REGULAR Activity:bedrest Exam: Resting in bed on left side Talkative A&O dressing to right buttock, right thigh donor site Data Review: Labs: Recent Labs 08/10/23 1127 08/10/23 1822 08/10/23 2140 08/11/23 0829 08/11/23 1134 08/11/23 1715 08/11/23 2024 08/12/23 0651 08/12/23 1119 08/12/23 1737 08/12/23 2135 08/13/23 0717 GLUCOSEPOC 123* 157* 141* 174* 194* 119* 189* 168* 141* 149* 153* 191* Lab Results Component Value Date HGBA1C 8.2 (H) 06/14/2023 Lab Results Component Value Date SERGLU 164 (H) 08/12/2023 NA 137 08/12/2023 K 3.8 08/12/2023 CL 105 08/12/2023 CO2 21 (L) 08/12/2023 BUN 17 08/12/2023 CREATININE 0.40 (L) 08/12/2023 CALCIUM 9.5 08/12/2023 Assessment 52 y/o F with 10-15 yr H/O T2 DM, manages with dietary measures, A1C is uncontrolled. Has PMH of HTN, Anxiety/Depression, admitted via ER with R Gluteal Necrotizing Fasciitis 06/12, complicated by Post-operative bradycardic arrest x2 early in hospital course, suspected heart block vs vagal event. Recovered normal cardiac function, EP cards signed off and has had persistent respiratory complications. She has undergone serial washouts/debridements and wound vac placements. Renal function WNL. Had split thickness skin graft to buttock wound on 07/30. Blood sugar 191 fasting this AM, BG trends stable yesterday but a bit elevated fasting today, target 140-180. Will make slight increase to Lantus today and continue current aspart today. Will continue to monitor and make adjustments as needed. Plan: 1. Lantus: increase to Lantus 44 units once daily 2. Aspart: Inject 11 units if patient eats entire meal, inject 6 units if patient eats 50% of meal,Hold if NPO 3. Aspart SSI: Dosing regimen weight between 76-100 kg BG Units 66-140 0 141-180 2 181-210 3 211-250 5 251-299 7 > 299 11 4. Aspart HS: 5 units at HS if BG > 250 and recheck BG at midnight 5. FS: AC/HS/PRN 6. Has met with diabetes education and ordered Dexcom G7 through [facility] pharmacy, if covered, can start inpatient so CDE can help with getting started, spoke with nursing to encourage pt to administer her insulin injections 7. Consider introduction of non-insulin agents (GLP1/SGLT2) as adjunct therapy to insulin, once closer to discharge, perhaps CGM 8. Will continue to follow with you. Discharge Plan: TBD Carmen Vernon NP 08/13/2023 11:17 * Teresita Mcneal, PT - 08/13/2023 0909 EDT Rehabilitation Therapy Acute Therapies [facility] Physical Therapy Encounter Note Date of Service: 08/13/2023 Subjective/Objective Subjective Pt reports she has been ambulating on unit Objective Intervention completed today: Time: 0920 Total care time: 32 minutes. Timed code treatment minutes: n/a Vital signs have been stable with interventions and were not monitored. Therapeutic activity Supine>sit to L with rail mod indep Pt indep with donning B shoes for ambulation Sit<>stand EOB mincontact ax1 to close supervision Pt ambulated 90'x2 rw mincontact ax1 to close supervision. Cues for foot placement in walker and todecrease LLE step length due to complaints of weakness and risk for buckling. Pt demonstrated no LOB. Pt was able to maintain balance with rw with obstacle negotiation and turning Stand<>sit wc close supervision Stand>sit EOB close supervision Spent time discussing mobility and dc plans Pt left EOB; call marroquin in reach. Spoke with RN after session Patient/Family Education: Topic: Assistive device/technique Discharge planning Equipment use Role of therapy Safety Transfers Learner: patient Method: verbal Barriers to Learning: none noted Outcome: needs practice and verbalized understanding Team Communication: RN pre/post PT. Secure chat with MYRNA Chavarria re; pt status . Secure chat with JOZEF re; dc Assessment/Plan Assessment Pt is doing better with mobility; able to ambulate on unit with rw and minimal support. Discussed focusing on shorter distance, more frequent ambulatory activities. Given her level of progress and 17/09 home support, discussed potential dc directly home when able. Pt became very tearful/happy about the possibility of dc home instead of rehab. Await OT input Plan Continue per plan of care Recommended Discharge Destination: See assessment above Recommended Discharge Services: Home health physical therapy Recommended Equipment Needs: Patient has all necessary equipment Other recommendations: OT f/u Pager: [phone] TERESITA MCNEAL PT 08/13/2023 9:58 * Carmen Vernon NP - 08/12/2023 1532 EDT Endocrine/Diabetes Follow Up/Progress Note Admit Date: 06/13/2023 Hospital day LOS: 60 days Date of Service: 08/12/2023 Reason for Following: T2DM Inpatient glycemic management, Necrotizing Fasciitis HPI: 52 y/o F with PMH of T2 DM, HTN, Anxiety/Depression, admitted via ER with R Gluteal Necrotizing Fasciitis 06/12, complicated by Post-operative bradycardic arrest x2 early in hospital course, suspected heart block vs vagal event. Recovered normal cardiac function, EP cards signed off and has hadpersistent respiratory complications. She has undergone serial washouts/debridements and wound vac placements, had skin graft on 07/30 Subjective: pt states she feels well this AM. Has been working with PT, feels she is making progress, states he has not had BM since rectal tube removed, thi makes her nervous. She reports good appetite Diabetes History: Onset: ~ 10-15 yr ago Control: A1C 8.2 on 06/13 Complications: Peripheral Neuropathy, infected wound Home Regimen: On no meds at home Says previously she had taken insulin Tries to watch diet SBGM and Self Care: Stopped taking FS Current Diet: Regular (added Consistent Carb) Social Information: Single, Lives in [facility], has male partner. 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 Unsure of family history maybe grandparents w DM Regular Diabetes Provider: PCP ROS: No N/V No CP/SOB No fevers/chills Objective/Physical Exam: VS: BP: (!) 144/68 Pulse: 89 Heart Rate: 78 BPM Resp: 18 Temp: 36.6 ??C (97.9 ??F) SpO2: 100 % O2 Flow Rate (L/min): 0 l/min O2 Device: None FIO2 %: 21 % Weight: Weight : 80.7 kg (178 lb) Body mass index is 31.54 kg/m??. Food Intake: DIET REGULAR Activity:bedrest Exam: Resting in bed on left side Talkative A&O dressing to right buttock, right thigh donor site Data Review: Labs: Recent Labs 08/09/23 1800 08/09/23 2027 08/10/23 0807 08/10/23 1127 08/10/23 1822 08/10/23 2140 08/11/23 0829 08/11/23 1134 08/11/23 1715 08/11/23 2024 08/12/23 0651 08/12/23 1119 GLUCOSEPOC 115* 135* 152* 123* 157* 141* 174* 194* 119* 189* 168* 141* Lab Results Component Value Date HGBA1C 8.2 (H) 06/14/2023 Lab Results Component Value Date SERGLU 164 (H) 08/12/2023 NA 137 08/12/2023 K 3.8 08/12/2023 CL 105 08/12/2023 CO2 21 (L) 08/12/2023 BUN 17 08/12/2023 CREATININE 0.40 (L) 08/12/2023 CALCIUM 9.5 08/12/2023 Assessment 52 y/o F with 10-15 yr H/O T2 DM, manages with dietary measures, A1C is uncontrolled. Has PMH of HTN, Anxiety/Depression, admitted via ER with R Gluteal Necrotizing Fasciitis 06/12, complicated by Post-operative bradycardic arrest x2 early in hospital course, suspected heart block vs vagal event. Recovered normal cardiac function, EP cards signed off and has had persistent respiratory complications. She has undergone serial washouts/debridements and wound vac placements. Renal function WNL. Had split thickness skin graft to buttock wound on 07/30, dressing change today Blood sugar 168 fasting this AM, BG trends stable, target 140-180. Will make slight increase to Lantus today and continue current aspart today. Will continue to monitor and make adjustments as needed. Plan: 1. Lantus: continue Lantus 40 units once daily 2. Aspart: Inject 11 units if patient eats entire meal, inject 6 units if patient eats 50% of meal,Hold if NPO 3. Aspart SSI: Dosing regimen weight between 76-100 kg BG Units 66-140 0 141-180 2 181-210 3 211-250 5 251-299 7 > 299 11 4. Aspart HS: 5 units at HS if BG > 250 and recheck BG at midnight 5. FS: AC/HS/PRN 6. Pt will benefit from Diabetes education as likely will need to discharge on insulin will send for Dexcom G7 to help with ease of FS and help with glycemic management 7. Consider introduction of non-insulin agents (GLP1/SGLT2) as adjunct therapy to insulin, once closer to discharge, perhaps CGM 8. Will continue to follow with you. Discharge Plan: TBD Carmen Vernon NP 08/12/2023 13:26 * Isabell Nolasco MD - 08/12/2023 1200 EDT Images from the original note were not included. Acute Care Surgery Progress Note Service Date: 08/12/2023 Admit Date: 06/13/2023 23:23 Procedure(s): Nec fasc debridement x2 (OSH) Serial debridement, repair rectal injury (06/14) Additional debridement, washout (06/16) Additional debridement, washout, partial closure (06/18) Washout, wound vac change (06/25) Wound vac change (07/09) Split thickness skin graft (07/30) Chief Complaint: NSTI 24 Hour Events: - NAEO Subjective Denies any new changes or complaints overnight, pain well controlled, and is doing well. Objective Vital Signs: Temp: [36.2 ??C (97.1 ??F)-36.9 ??C (98.4 ??F)] Heart Rate: [78 BPM-88 BPM] Pulse: -- Pulse From Oximetry: [78 BPM-88 BPM] Resp: [18] BP: (133-170)/(61-81) SpO2: [97 %-100 %] I/O: Intake/Output Summary (Last 24 hours) at 08/12/2023 1200 Last data filed at 08/12/2023 1000 Gross per 24 hour Intake 2140 ml Output 2200 ml Net -60 ml I&O By Type - 3 Shifts Including Current In: 1200 [P.O.:1200] Out: 1800 [Urine:1800] Physical Exam: Gen: awake, alert, cooperative Resp: unlabored on room air Abd: soft, non-distended, non-tender : dressings taken down over donor site and graft site, images below, redressed Psych: appropriate mood and affect Labs: CBC: Recent Labs 08/12/23 0621 WBC 7.96 RBC 3.16* HGB 8.7* HCT 26.0* MCV 82 MCH 27.5 MCHC 33.5 PLT 289 NEUTROABS 4.75 BMP: Recent Labs 08/12/23 0621 NA 137 K 3.8 CL 105 CO2 21* BUN 17 CREATININE 0.40* CALCIUM 9.5 Glucose: Glucose, POC Date/Time Value Ref Range Status 08/12/2023 11:19 141 (H) 70 - 100 mg/dL Final Assessment 52 y.o. female with a history of HTN and T2DM who presented as a transfer from [facility] on 06/12 with necrotizing fasciitis. S/p debridement x2 at OSH and s/p debridement at [facility] on 06/14.Post-operative bradycardic arrest x2 early in hospital course, suspected heart block vs vagal event. Recovered normal cardiac function, EP cards signed off. Had transferred to floor however on 07/02 required transfer to SICU for hypoxic respiratory failure secondary to atelectasis/mucous plugging. Intubated for bronchoscopy, now extubated and stable on nasal cannula. Doing well with respiratory therapy. Was undergoing local wound care and serial debridements, as well as pulmonary toilet. Wound site now grafted with split thickness skin graft on 07/30. Continues to recover well from skin graft. Will continue to monitor and do dressing changes MWF. Plan Multimodal pain control RLE graft dressing with Xeroform and 12x12 gauze, change MWF Donor site dressing replaced RT for airway clearance Q4H, GarrisonoNebs Consistent carbohydrate diet, Endocrine following, appreciate their assistance with DM management Rectal tube removed Nystatin powder BID ordered to perianal/gluteal cleft skin Ensure to cycle balloon daily as per nursing/floor protocol Lasix 40mg PO daily Continue bedtime seroquel 25 mg at bedtime Encourage aggressive IS Labs every Saturday, Activity as tolerated, encourage physical therapy to work with her. Only precautions include no sliding/shearing forces on RLE wound and no sitting for prolonged periods of time. Okay to sit up for meals and while working with physical therapy, but minimize direct sitting pressure on graft for more than an hour at a time VTE prophylaxis: Pharmacologic Prophylaxis: Enoxaparin (Lovenox) 40 mg SQ daily Dispo: pending clinical course ISABELL NOLASCO MD 08/12/2023 12:00 Pager: [phone] Associated attestation - Efraín Rueda MD - 08/12/2023 9146 EDT Attending attestation statement: I saw and examined the patient and agree with the findings and plans as documented. Doing well today, continue PT. Awaiting rehab. Take down donor site dressings today, possibly redress with either xeroform or tegaderm absorb pending wound appearnce. Darien Rueda MD Acute Care Surgery Pager #[phone] * Melinda Lassiter, PT - 08/09/2023 3358 EDT Rehabilitation Therapy Acute Therapies [facility] Physical Therapy Encounter Note Date of Service: 08/09/2023 Subjective/Objective Subjective I can walk with the Nurses? I think I need to go to the bathroom (vuong catheter removed earlier) Objective Intervention completed today: Time: 1445 Total care time: 30 minutes. Vital signs have been stable with interventions and were not monitored. Therapeutic Activity Bed Mobility Supine to sit towards patient's left side with supervision assist with reliance on bed rails and head Sit to stand/Stand to sit from edge of bed to RW with minimal contact assist and verbal cues for hand placement and sequencing Transfer bed to commode With minimal contact assist using RW and cues for sequencing Able to perform hygiene post urination Ambulation With rolling walker assistive device and minimal contact assist for 15 feet Pt demonstrates left foot drop during swing with excessive knee extension during stance. Step to gait pattern. No shortness of breath, loss of balance or dizziness noted Wheelchair mobility; dependent for legrest management Pt self propelled with bilateral UE 200 feet around Nursing unit with supervision to occasional minimal assist. Pt requested to remain up in w/c for 30 minutes; instructed on pressure relieving techniques. Call marroquin and tray table in reach Patient/Family Education: Topic: Activity pacing/Energy conservation Assistive device/technique Balance Bed mobility Breathing exercises Discharge planning Gait Positioning Role of therapy Safety Transfers Learner: patient Method: verbal and demonstration Barriers to Learning: none noted Outcome: needs practice and verbalized understanding Team Communication: notified Nursing of successful void, pt status and goals for weekend. Assessment/Plan Assessment Ms Browning has demonstrated remarkable progress with increased functional mobility this week, progressing to short distance ambulation with RW. She is motivated to continue to increase activity. She remains below her baseline level of function and still requires subacute rehab. Anticipate she needs LE bracing Plan Continue per plan of care Recommended Discharge Destination: Sub-acute rehabilitation Recommended Discharge Services: Physical therapy at rehabilitation facility Recommended Equipment Needs: To be determined by next care provider Other recommendations: No other consults recommended at this time Primary Therapist: Pager: [phone] Melinda Lassiter PT 08/09/2023 16:12 * Nedra Armendariz, RN - 08/09/2023 9910 EDT The Department of Case Management and Social Work Case Management Progress Note Patient Name Level of Care and Accommodation Code: Patient Class: Medically Ready: Y/N Della Browning Acute General Inpatient N Primary Dx: Decisional Capacity: Y/N Primary Support/ CareGiver: Advance Directive Necrotizing fasciitis ([facility]) Y N Advance Directives (For Healthcare) Healthcare Directive: No, patient does not have advance directive for healthcare treatment Information Provided on Healthcare Directives: Yes Information on Healthcare Directives Requested: No Disposition Information Appropriate to transfer back: Y/N Length of Stay (in days): Estimated Date of D/C: LTC Medicaid Status: N 57 08/13 N Primary Care Provider: AR/ANDRES/SNF referred: Y/N Bed Offers: Y/N Escalated to Leadership: Y/N UNKNOWN,PROVIDER N N N Mobility Level: Recommended D/C Location Payor: Bedside Mobility Assessment Tool (BMAT) Bedrest or non-weight bearing orders?: No Assessment Level 1-Sit & Shake: Pass Assessment Level 2-Stretch & Point: Pass Assessment Level 3-Stand: Fail Assessment Level 4-Step: Fail Mobility level determined: Mobility Level 2 use lift (ceiling or portable), sliding aid/sheet, air-assisted sliding aid Number of caregivers reccommended: 2 Recommended Discharge Destination PT Recommended Discharge Destination: Subacute rehabilitation Pay[place] / Plan[place] /Product Type[place] GL / Barriers to Discharge N/a; remains medically acute for continued IP admission at [facility] Nec fasc debridement x2 (OSH) Serial debridement, repair rectal injury (06/14) Additional debridement, washout (06/16) Additional debridement, washout, partial closure (06/18) Wound vac application (06/21) Wound debridement with WV replacement in OR (07/09) STSG (07/30) Plan Level of Care: Acute/ IP Admission Point of Origin: [facility] Appropriate for Transfer Return vs Alternative Facility: N/a (reviewed with team 07/07, 07/10, week of 07/14, week of 07/22, week of 08/04). Discharge plan/ Estimated date: TBD Insurance/ LTC Medicaid Status: Medicaid Support Network: sig other Carey ([phone]); Henrietta Hensley ([phone]) (CM Note 08/08:) Chart reviewed and updates received from Primary team in morning rounds. STSG site intact. Plan for removal of rectal tube/ address bowel meds. Team agrees that patient may be ready to list for Rehab setting early next week and will assess overall status for d/c readiness on Saturday. (CM Note 08/06:) One week out today from STS (07/30) Continues with every other day dressing orders with xeroform/ gauze. (Orders for donor site dressing to remain intact x7days) Rectal tube remains in place and will be assessed for removal as appropriate by Attending. Current status and plan of care discussed with Primary team this morning in rounds. Do not anticipate readiness to list for [facility] facilities per therapy recommendations until next week (week of 08/11). (CM Note 08/04:) Provided check-in with patient today following dressing change by Provider. Brought patient hearing aid batteries to bedside. Remains medically acute for continued hospitalization due to recent STSG and current wound care regimen. Plan to list for Sub Acute Rehab setting once appropriate to transition to alternative level of care. Daily updates received from team. PER ATTENDING today: Xeroform and 12x12 gauze placed to graft, held in place with a #8 band net pant. Plan for dressing change every other day and when soiled. Will leave donor site dressing in place for 7 days. Once STSG is more sturdy, will remove rectal tube and vuong. 1 mg total of IV dilaudid given for dressing change and she tolerated it well. (Moo Monique MD) (CM Note 07/29:) Chart reviewed and current status discussed with Primary team this morning in rounds. Next wound vac change scheduled for 07/31. Acell has been applied weekly to wound bed with vac changes; goal for skin graft - date pending. Current LDA's: Indwelling catheter, Rectal Tube, Wound Vac Current Infusions: N/a Recommended for eventual transfer to a Sub Acute Rehab setting. This CM will list for facilities once closer to medical readiness for transfer/ week+ following skin graft. (Patient's residence is in [facility] with partner [place]). (CM Note 07/25:) Remains medically acute for continued inpatient care at [facility]. Last wound vac change with Acell application to wound bed yesterday 07/24. Next wound vac change scheduled for 07/31 Plan to list for Sub Acute Rehab once closer to medical readiness for transfer. (CM Note 07/22:) Chart reviewed and updates received from Primary team in morning rounds. Patient with necrotizing fasciitis with Wound vac application. Last change 07/16 with next change planned for tomorrow 07/23. Receiving Acell application to wound bed. Remains medically acute for ongoing wound management at [facility]. (CM Note 07/16:) Patient with Wound Vac change this morning (please refer to KATY Duval progress note). Replaced WV; using acellular matrix overlying wound bed with vendor following on site. May require another week of WV prior to further determination of treatment care plan. Per ongoing discussions with Primary team, patient is Not a candidate for transfer return to sending hospital due to acuity of wound care requiring current services of ACS. Otherwise, CM is continuing to follow and will provide additional updates regarding any status changes as appropriate. (CM Note 07/14:) Chart reviewed and updates received this morning from Primary team in rounds. Plan for Wound Vac change this Sunday 07/16 with possible STSG dependent on assessment of wound bed. Patient asleep at time of CM visit. Discussed care with Nursing. Acute therapies following and currently recommending for short-term Sub Acute Rehab stay. Will listonce closer to medical readiness with more clear plan of care in place. Not currently getting up out of bed. WV, rectal tube, indwelling vuong cath intact. This CM will continue to follow and assist with coordination of disposition plan dependent on clinical course/ care team recommendations. Please reach out with any additional questions/ concerns, or acute changes in care plan in order toprovide patient with adequate supports. (CM Note 07/10:) Plan continues for WV reassessment on Friday 07/14 with possible skin graft pending following vac removal. Worked with PT today at bedside with eventual recommendations for a short-term Sub Acute Rehab stay. This CM will list for rehab facilities once closer to medical readiness for a transition to the next appropriate level of care. Will reassess clinical status Saturday following Wound Vac change. Please reach out with any additional questions/ concerns, or acute changes in care plan in order toprovide patient with adequate supports. E-Signature Nedra Armendariz RN CM [facility] Department (Available via MideoMe) * Nabila English NP - 08/09/2023 1219 EDT Endocrine/Diabetes Follow Up/Progress Note Admit Date: 06/13/2023 Hospital day LOS: 57 days Date of Service: 08/09/2023 Reason for Following: T2DM Inpatient glycemic management, Necrotizing Fasciitis HPI: 52 y/o F with PMH of T2 DM, HTN, Anxiety/Depression, admitted via ER with R Gluteal Necrotizing Fasciitis 06/12, complicated by Post-operative bradycardic arrest x2 early in hospital course, suspected heart block vs vagal event. Recovered normal cardiac function, EP cards signed off and has hadpersistent respiratory complications. She has undergone serial washouts/debridements and wound vac placements. Now S/P split thickness wound graft 07/30. Subjective: Appetite is good. Says she is waiting for placement in [facility]. Diabetes History: Onset: ~ 10-15 yr ago Control: A1C 8.2 on 06/13 Complications: Peripheral Neuropathy, infected wound Home Regimen: On no meds at home Says previously she had taken insulin Tries to watch diet SBGM and Self Care: Stopped taking FS Current Diet: Regular (added Consistent Carb) Social Information: Single, Lives in [facility], has male partner. 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 Unsure of family history maybe grandparents w DM Regular Diabetes Provider: PCP ROS: No N/V No CP/SOB No fevers/chills Objective/Physical Exam: VS: BP: (!) 167/93 Pulse: 88 Heart Rate: 78 BPM Resp: 17 Temp: 36.7 ??C (98 ??F) SpO2: 99 % O2 Flow Rate (L/min): 0 l/min O2 Device: None FIO2 %: 21 % Weight: Weight : 76.6 kg (168 lb 14.4 oz) Body mass index is 29.93 kg/m??. Food Intake: DIET REGULAR Activity:bedrest Exam: Pt lying on L side, awake, watching TV Rectal tube and vuong in place (clear yellow urine) dressing to right buttock, right thigh donor site (Changed M,W,F) Data Review: Labs: Recent Labs 08/07/23 0915 08/07/23 1019 08/07/23 1255 08/07/23 1653 08/07/23 1835 08/07/23 2103 08/08/23 0723 08/08/23 1237 08/08/23 1648 08/08/23 1945 08/09/23 0852 08/09/23 1144 GLUCOSEPOC 167* 189* 136* 168* 171* 164* 158* 167* 182* 180* 193* 152* Lab Results Component Value Date HGBA1C 8.2 (H) 06/14/2023 Lab Results Component Value Date SERGLU 168 (H) 08/08/2023 NA 140 08/08/2023 K 3.8 08/08/2023 CL 108 08/08/2023 CO2 20 (L) 08/08/2023 BUN 12 08/08/2023 CREATININE 0.38 (L) 08/08/2023 CALCIUM 10.1 08/08/2023 Assessment 52 y/o F with 10-15 yr H/O T2 DM, manages with dietary measures, A1C is uncontrolled. Has PMH of HTN, Anxiety/Depression, admitted via ER with R Gluteal Necrotizing Fasciitis 06/12, complicated by Post-operative bradycardic arrest x2 early in hospital course, suspected heart block vs vagal event. Recovered normal cardiac function, EP cards signed off and has had persistent respiratory complications. She has undergone serial washouts/debridements and wound vac placements. Renal function WNL. Had split thickness skin graft to buttock wound on 07/30, dressing change today Appetite good. Blood sugar is trending up some, will adjust both Lantus and aspart. She is now on list for discharge to [facility]. Pt was not on DM medications and did not own a glucometer [employer]INE INST[employer]ER. Unsure if seen by RN, CDE will ordera consult for assessment and review of Pt's discharge DM needs. Plan: 1. Lantus: Increase to 38 units once daily 2. Aspart: Increase to 11 units if patient eats entire meal, and 6 units if patient eats 50% of meal, Hold if NPO 3. Aspart SSI: Dosing regimen weight between 76-100 kg BG Units 66-140 0 141-180 2 181-210 3 211-250 5 251-299 7 > 299 11 4. Aspart HS: 5 units at HS if BG > 250 and recheck BG at midnight 5. FS: AC/HS/PRN 6. Pt will benefit from Diabetes education as likely will need to discharge on insulin (Have ordered) 7. Consider introduction of non-insulin agents (GLP1) as adjunct therapy to insulin, post discharge, perhaps CGM. Would avoid SGLT-2 with open groin wound unless she will have buttermaker continuous churn vuong catheter w discharge 8. Will continue to follow with you. Discharge Plan: TBD Nabila English NP 08/09/2023 12:19 * Paulette Hoover - 08/09/2023 1038 EDT Images from the original note were not included. Acute Care Surgery Progress Note Service Date: 08/09/2023 Admit Date: 06/13/2023 23:23 Procedure(s): Nec fasc debridement x2 (OSH) Serial debridement, repair rectal injury (06/14) Additional debridement, washout (06/16) Additional debridement, washout, partial closure (06/18) Washout, wound vac change (06/25) Wound vac change (07/09) Split thickness skin graft (07/30) Chief Complaint: NSTI 24 Hour Events: -no acute changes overnight -PT recommend [facility] Subjective Holden denies significnat changes overnight, pain controlled, and is doing well. Objective Vital Signs: Temp: [36.7 ??C (98 ??F)-37.2 ??C (98.9 ??F)] Heart Rate: [78 BPM-94 BPM] Pulse: -- Pulse From Oximetry: [78 BPM-97 BPM] Resp: [16-20] BP: (135-167)/(60-93) SpO2: [98 %-99 %] I/O: Intake/Output Summary (Last 24 hours) at 08/09/2023 1038 Last data filed at 08/09/2023 0600 Gross per 24 hour Intake 2100 ml Output 3650 ml Net -1550 ml I&O By Type - 3 Shifts Including Current In: 855 [P.O.:720; Other:135] Out: 2650 [Urine:2250; Drains:400] Physical Exam: Gen: awake, alert, cooperative Resp: unlabored on room air Abd: soft, non-distended, non-tender : dressings over right buttock and right thigh with a little stool on the dressing near the rectal tube, vuong in place, rectal tube in place Psych: appropriate mood and affect Labs: CBC: Recent Labs 08/08/23 0654 WBC 8.24 RBC 3.37* HGB 9.4* HCT 27.7* MCV 82 MCH 27.9 MCHC 33.9 PLT 314 NEUTROABS 4.95 BMP: Recent Labs 08/08/23 0654 NA 140 K 3.8 CL 108 CO2 20* BUN 12 CREATININE 0.38* CALCIUM 10.1 Glucose: Glucose, POC Date/Time Value Ref Range Status 08/09/2023 08:52 193 (H) 70 - 100 mg/dL Final Assessment 52 y.o. female with a history of HTN and T2DM who presented as a transfer from [facility] on 06/12 with necrotizing fasciitis. S/p debridement x2 at OSH and s/p debridement at [facility] on 06/14.Post-operative bradycardic arrest x2 early in hospital course, suspected heart block vs vagal event. Recovered normal cardiac function, EP cards signed off. Had transferred to floor however on 07/02 required transfer to SICU for hypoxic respiratory failure secondary to atelectasis/mucous plugging. Intubated for bronchoscopy, now extubated and stable on nasal cannula. Doing well with respiratory therapy. Was undergoing local wound care and serial debridements, as well as pulmonary toilet. Wound site now grafted with split thickness skin graft on 07/30. Continues to recover well from skin graft. Will continue to monitor and do dressing changes MWF. Plan Multimodal pain control RLE graft dressing with Xeroform and 12x12 gauze, change MWF Leave donor site dressing for 7 days until 08/11 RT for airway clearance Q4H, DuoNebs Consistent carbohydrate diet, Endocrine following, appreciate their assistance with DM management Rectal tube for wound hygiene Nystatin powder BID ordered to perianal/gluteal cleft skin Ensure to cycle balloon daily as per nursing/floor protocol Lasix 40mg PO daily Continue bedtime seroquel 25 mg at bedtime Encourage aggressive IS Labs every Saturday, Activity as tolerated, encourage physical therapy to work with her. Only precautions include no sliding/shearing forces on RLE wound and no sitting for prolonged periods of time. Okay to sit up for meals and while working with physical therapy, but minimize direct sitting pressure on graft for more than an hour at a time VTE prophylaxis: Pharmacologic Prophylaxis: Enoxaparin (Lovenox) 40 mg SQ daily Dispo: pending clinical course ROSA ISELA CAMPBELL MD 08/09/2023 10:38 Pager: [phone] Attestation: I performed or was present during the cooper or critical portions of the visit and participated in the management of the patient on 08/09/2023. I agree with the findings and plan of care documented in the resident's/fellow's note. Discussion with team on when apporpriate to remove rectal tube and vuong - stools very watery and frequent now, may need to back down on bowel meds prior to removal of rectal tube. Paulette Hoover MD 08/09/2023 15:24 * Melinda Lassiter PT - 08/08/2023 1531 EDT Rehabilitation Therapy Acute Therapies [facility] Physical Therapy Encounter Note Date of Service: 08/08/2023 Subjective/Objective Subjective I worry my left knee will buckle! Objective Intervention completed today: Time: 1345 Total care time: 38 minutes. Vital signs have been stable with interventions and were not monitored. Therapeutic activity Pt able to ashley bilateral socks and surgical shoes while supine in bed; required minimal assist to tighten straps. PT provided loaner rw and adjusted to pt height. Supine<->sit with supervision towards left side of bed. Sitting balance; independendent at edge of bed with no need for foot stool support; Sitting therapeutic exercise Performed x 10 knee extension each leg; Sit to stand from bed to RW; minimal contact assist. Side step towards left 4 feet at edge of bed; minimal contact assist; able to fully clear right foot from floor; left foot with foot drop; some toe drag. Forward walk 2 feet and backward 2 feet x 3. Seated rest break in between each walk. Pt expressing anxiety about attempt of walking longer distance. PT discussed goal for using rolling walker for transfers and not using leander steady; pt amenable. Discussed role for subacute rehab; left LE brace to help with ankle stability and walking. Patient/Family Education: Topic: Activity pacing/Energy conservation Assistive device/technique Balance Bed mobility Breathing exercises Discharge planning Exercise Gait Positioning Role of therapy Safety Transfers Learner: patient Method: verbal and demonstration Barriers to Learning: none noted Outcome: needs practice and verbalized understanding Team Communication: PT discussed pt status with Nursing earlier in day. Epic chat to Nurse regarding using Rw for transfers Assessment/Plan Assessment Ms Browning demonstrates good progress with use of Rolling walker for steps/transfer and multiple standing trials and was able to take some steps. Anticipate she is ready to progress ambulation if have w/c follow. She is motivated to increase activity. She remains below her baseline level of function and still needs subacute rehab. She will require LE bracing for left foot drop Plan Continue per plan of care; progress ambulation distance Recommended Discharge Destination: Sub-acute rehabilitation Recommended Discharge Services: Physical therapy at rehabilitation facility Recommended Equipment Needs: To be determined by next care provider Other recommendations: No other consults recommended at this time Primary Therapist: Pager: [phone] Melinda Lassiter PT 08/08/2023 15:31 * Ayden Ackerman RD - 08/08/2023 1133 EDT Images from the original note were not included. Nutrition Assessment Note: Reassessment BACKGROUND DATA Della Browning is a 53 y.o. female admitted for Necrotizing fasciitis ([facility]) S/p debridement x2 at OSH and s/p debridement at [facility] on 06/14. Post- operative bradycardic arrest x2 early in hospital course, suspected heart block vs vagal event. Recovered normal cardiac function. 07/02 required transfer to SICU for hypoxic respiratory failure secondary to atelectasis/mucous plugging. Intubated for bronchoscopy, now extubated and stable on nasal cannula. Doing well with respiratory therapy. Undergoing local wound care and serial debridements, as well as pulmonary toilet. PMH: HTN, T2DM. -Tiff Aviles MD 07/23/23 Recent Clinical Events: S/p skin graft 07/30 with ongoing dressing changes MWF Subjective: Pt reports eating continues to go well and is drinking the Boost glucose control w/ every meal. Shehad no follow up nutrition questions or concerns today. Averaging 75-100% meals TID. Current Nutrition Orders: Regular - consistent carbohydrate Menu assist Boost Glucose Control TID Objective Nutrition Focused Physical Exam Subcutaneous Fat Assessment Orbital Region: Well-nourished (06/14/23 1520) Cheek Region: Well-nourished (06/14/23 1520) Upper Arm Region: Well-nourished (06/14/23 1520) Midaxillary Line: Not assessed (06/14/23 1520) Muscle Mass Assessment Congregation Region: Well-nourished (06/14/23 1520) Clavicle Region: Well-nourished (06/14/23 1520) Shoulder/Acromion/Clavicle Region: Well-nourished (06/14/23 1520) Scapula Region: Not assessed (06/14/23 1520) Hand Region: Not assessed (06/14/23 1520) Thigh/Patellar Region: Not assessed (06/14/23 1520) Calf Region: Not assessed (06/14/23 1520) NFPE Assessment Summary of Fat Wasting: No significant evidence of wasting (06/14/23 1520) Summary of Muscle Wasting: No significant evidence of wasting (06/14/23 1520) Physical Findings: Net IO Since Admission: -77,672.28 mL [08/08/23 1133] Digestive Systems: Last BM 07/22 Dentition: Teeth: Missing teeth per flowsheets Edema: trace RLE/LLE Skin: dry, edematous Allergies on file: Apple juice, Aspirin, Cymbalta [duloxetine], Lyrica [pregabalin], and Penicillins Anthropometrics: Height: 160 cm (62.99) BMI: Body mass index is 29.93 kg/m??. Weight Change: wt down about 10 kg since admission (11%) x2 months which is clinically significant.Pt is net negative I/Os. Weights Filed This Admission 06/14/23 0000 06/19/23 0900 06/30/23 0605 07/11/23 1728 Weight: 86.2 kg (190 lb) 86.2 kg (190 lb) 92.2 kg (203 lb 4.2 oz) 82.6 kg (182 lb 1.6 oz) 07/15/23 1240 07/17/23 0600 07/31/23 1029 Weight: 86.2 kg (190 lb 0.6 oz) 82.8 kg (182 lb 8.7 oz) 76.6 kg (168 lb 14.4 oz) Wt Readings from Last 6 Encounters: 07/31/23 76.6 kg (168 lb 14.4 oz) Pertinent Medications: Current Facility-Administered Medications Medication Route Frequency acetaminophen (TYLENOL) tablet 1,000 mg oral Q6H albuterol inhaler 180 mcg inhalation Q4H PRN alteplase (CATHFLO ACTIVASE) injection 2 mg intercatheter PRN amLODIPine (NORVASC) tablet 10 mg oral DAILY cholecalciferol (Vitamin D3) tablet 2,000 Units oral DAILY cloNIDine (CATAPRES) 0.2 mg/24 hr patch 1 Patch transdermal WEEKLY dextrose 50 % solution 12.5 g intravenous PRN docusate sodium (COLACE) capsule 200 mg oral BID enoxaparin (LOVENOX) injection 40 mg subcutaneous DAILY furosemide (LASIX) tablet 40 mg oral DAILY glucagon injection 1 mg intramuscular PRN insulin aspart U-100 (NOVOLOG FLEXPEN) injection 5-9 Units subcutaneous TID WC insulin aspart U-100 (NOVOLOG FLEXPEN) injection subcutaneous TID WC insulin aspart U-100 (NOVOLOG FLEXPEN) injection subcutaneous QHS insulin glargine injection pen 32 Units subcutaneous DAILY L.A. INSULIN ipratropium-albuteroL (DUONEB) 0.5 mg-3 mg(2.5 mg base)/3 mL nebulizer solution 3 mL nebulization Q4H PRN lactulose (CHRONULAC) 20 gram/30 mL solution 45 mL oral Q4H lidocaine 5 % (LIDODERM) patch 2 Patch transdermal DAILY LORazepam (ATIVAN) tablet 0.5 mg oral DAILY And LORazepam (ATIVAN) tablet 0.5 mg oral Daily PRN magnesium hydroxide (MILK OF MAGNESIA) 400 mg/5 mL suspension 30 mL oral DAILY melatonin tablet 6 mg oral QHS methocarbamoL (ROBAXIN) tablet 1,000 mg oral QID qqaufdyp-fqy-cbdu fum-folic ac 7.5 mg iron-400 mcg tablet [...] senna (SENOKOT) tablet 2 Tablet oral QHS Sodium chloride - hypochlorus acid 0.033% solution (aka Vashe) (VASHE) 0.033 % external solution topical DAILY sodium chloride soluble tablet 1,000 mg oral TID Pertinent Labs: Lab Results Component Value Date WBC 8.24 08/08/2023 RBC 3.37 (L) 08/08/2023 HGB 9.4 (L) 08/08/2023 HCT 27.7 (L) 08/08/2023 MCV 82 08/08/2023 MCH 27.9 08/08/2023 PLT 314 08/08/2023 NA 140 08/08/2023 K 3.8 08/08/2023 CL 108 08/08/2023 CO2 20 (L) 08/08/2023 BUN 12 08/08/2023 CREATININE 0.38 (L) 08/08/2023 CALCIUM 10.1 08/08/2023 MG 1.7 07/22/2023 PHOS 6.5 (H) 07/22/2023 VITD 22 (L) 07/25/2023 Lab Results Component Value Date/Time HGBA1C 8.2 (H) 06/14/2023 04:55 GLUCOSEPOC 158 (H) 08/08/2023 07:23 GLUCOSEPOC 164 (H) 08/07/2023 21:03 GLUCOSEPOC 171 (H) 08/07/2023 18:35 GLUCOSEPOC 168 (H) 08/07/2023 16:53 GLUCOSEPOC 136 (H) 08/07/2023 12:55 Lab Results Component Value Date/Time TRIG 335 (H) 06/18/2023 04:32 Estimated Nutrition Needs: MSJ x1.3 for wound healing (using 82.6 kg) = 1830 kcals/day 2.0 g/kg protein (using 52.4 kg IBW) = 99-105 g protein/day Estimated Nutrition Intake: 100% meals TID + Boost GC TID ASSESSMENT: Pt continues to eat well from 3 meals and 3 boost glucose control supplements daily. Her weight trend is showing a -10 kg wt loss x2 months since admission. Weight loss attributed to acute illness and frequent NPO OR. Also some loss of muscle mass d/t immobility. Of note, she is alsonet negative for I/Os. Continue to trend wt w/ goal of wt stability. Receiving appropriate Vitamin D3 2000 IU daily recent low levels. BGs remain in 150-170s, similar to last RD visit. Nutrition Risk Level: Moderate (2) MEDICAL NUTRITION THERAPY - UPDATED PLAN Continue consistent carb diet order w/ glucose control supplements Weekly weight checks Monitor wt trends, BMs, labs, I/Os, and skin AYDEN ACKERMAN RD, CD, CNSC (Call PAS or use [employer] ([employer]) to page RD covering this unit) * Nabila English NP - 08/08/2023 1032 EDT Endocrine/Diabetes Follow Up/Progress Note Admit Date: 06/13/2023 Hospital day LOS: 56 days Date of Service: 08/08/2023 Reason for Following: T2DM Inpatient glycemic management, Necrotizing Fasciitis HPI: 52 y/o F with PMH of T2 DM, HTN, Anxiety/Depression, admitted via ER with R Gluteal Necrotizing Fasciitis 06/12, complicated by Post-operative bradycardic arrest x2 early in hospital course, suspected heart block vs vagal event. Recovered normal cardiac function, EP cards signed off and has hadpersistent respiratory complications. She has undergone serial washouts/debridements and wound vac placements, nearing evaluation for skin graft viability per surgical note. Subjective: Pt asleep, did not disturb Diabetes History: Onset: ~ 10-15 yr ago Control: A1C 8.2 on 06/13 Complications: Peripheral Neuropathy, infected wound Home Regimen: On no meds at home Says previously she had taken insulin Tries to watch diet SBGM and Self Care: Stopped taking FS Current Diet: Regular (added Consistent Carb) Social Information: Single, Lives in [facility], has male partner. 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 Unsure of family history maybe grandparents w DM Regular Diabetes Provider: PCP ROS: No N/V No CP/SOB No fevers/chills Objective/Physical Exam: VS: BP: 133/59 Pulse: 88 Heart Rate: 75 BPM Resp: 18 Temp: 36.6 ??C (97.8 ??F) SpO2: 100 % O2 Flow Rate (L/min): 0 l/min O2 Device: None FIO2 %: 21 % Weight: Weight : 76.6 kg (168 lb 14.4 oz) Body mass index is 29.93 kg/m??. Food Intake: DIET REGULAR Activity:bedrest Exam: Pt lying on L side, asleep Rectal tube and vuong in place dressing to right buttock, right thigh donor site (Changed M,W,F) Data Review: Labs: Recent Labs 08/05/23 2113 08/06/23 0732 08/06/23 1246 08/06/23 1813 08/06/23 2137 08/07/23 0915 08/07/23 1019 08/07/23 1255 08/07/23 1653 08/07/23 1835 08/07/23 2103 08/08/23 0723 GLUCOSEPOC 190* 186* 162* 159* 154* 167* 189* 136* 168* 171* 164* 158* Lab Results Component Value Date HGBA1C 8.2 (H) 06/14/2023 Lab Results Component Value Date SERGLU 168 (H) 08/08/2023 NA 140 08/08/2023 K 3.8 08/08/2023 CL 108 08/08/2023 CO2 20 (L) 08/08/2023 BUN 12 08/08/2023 CREATININE 0.38 (L) 08/08/2023 CALCIUM 10.1 08/08/2023 Assessment 52 y/o F with 10-15 yr H/O T2 DM, manages with dietary measures, A1C is uncontrolled. Has PMH of HTN, Anxiety/Depression, admitted via ER with R Gluteal Necrotizing Fasciitis 06/12, complicated by Post-operative bradycardic arrest x2 early in hospital course, suspected heart block vs vagal event. Recovered normal cardiac function, EP cards signed off and has had persistent respiratory complications. She has undergone serial washouts/debridements and wound vac placements. Renal function WNL. Had split thickness skin graft to buttock wound on 07/30, dressing change today Blood sugar mildly elevated overnight. No significant post meal hyperglycemia. Will increase Lantusby a small amount continue aspart at present doses. Plan: 1. Lantus: Slight increase to 32 units once daily 2. Aspart: Inject 9 units if patient eats entire meal, inject 5 units if patient eats 50% of meal, Hold if NPO 3. Aspart SSI: Dosing regimen weight between 76-100 kg BG Units 66-140 0 141-180 2 181-210 3 211-250 5 251-299 7 > 299 11 4. Aspart HS: 5 units at HS if BG > 250 and recheck BG at midnight 5. FS: AC/HS/PRN 6. Pt will benefit from Diabetes education as likely will need to discharge on insulin 7. Consider introduction of non-insulin agents (GLP1) as adjunct therapy to insulin, once closer todischarge, perhaps CGM. Would avoid SGLT-2 with open groin wound unless she will have buttermaker continuous churn vuong catheter w discharge 8. Will continue to follow with you. Discharge Plan: TBD Nabila English NP 08/08/2023 10:33 * Esla Beckford OT - 08/08/2023 1023 EDT The Rehabilitation Therapy Acute [facility] - Occupational Therapy Encounter Note Date of Service: 08/08/[address] Monique's note dated 2023: Activity as tolerated, encourage physical therapy to work with her. Only precautions include no sliding/shearing forces on RLE wound and no sitting for prolonged periods of time. Okay to sit up for meals and while working with physical therapy, but minimize direct sitting pressure on graft for more than an hour at a time Subjective/Objective Subjective I can't get my shoes on Objective Time: 946 Total care time: 35 minutes. Timed code treatment minutes:n/a Date: 07/31/2023 Location: [facility] OR Name: Della Browning, : 1970, Diagnosis Pre-Op Diagnosis Codes: * Necrotizing soft tissue infection [M79.89] Post-op Diagnosis * Necrotizing soft tissue infection [M79.89] Procedures * Split thickness skin graft to perineum Surgeons * Moo Monique MD - Primary * Isabell Nolasco MD - Resident - Assisting Interventions included: Self-Care/Home Management: LB dressing: -Pt donned b/l phone counselor socks with mod I using figure 4 technique from bed level. Pt donned darco shoesfrom figure 4 sitting at EOB and managed fastening of all straps independently Functional Mobility: Rolling: mod I with use of bed rail to roll R <> L for nursing placement of band-net and tiesto secure STSG dressing in prep for OOB -Supine>sit: mod I to sit R EOB, cues for leaning to un weight at graft site to limit shearing friction -Sit>stand: Min contact A x 2 to stand with handhold at EOB. Min contact A for weight shifting to L and R, but some difficulty with marching feet in place. Min contact A x 1 to stand from leander mayers. Marching place form leander mayers with Min contact A -Stand>sit: Min contact A to sit in wheelchair. Waffle cushion provide for added padding for STSG and pt/RN education re: minimizing time OOB for integrity of graft site. -Encouraged OOB > w/c for all meals -Discussed with pt the benefit of trying to maintain a more routine schedule during admission in effort to promote increased consistency with daily activities in prep for d/c. Pt was left in w/c with RN wheeling pt around unit at conclusion of session Vital signs: Vital signs were monitored and were stable throughout occupational therapy session. Patient/Family Education: See above Team Communication: RN throughout session Assessment/Plan Assessment Patient was agreeable to therapy services and tolerated session well. Pt continues to demonstrate progress with activity tolerance and participation in ADLs and functional mobility. Pt remains well below her baseline and will requiring ongoing therapy. Continue to recommend ANDRES to address functional deficits in order to maximize strength, safety and participation with self-care and functional mobility. Plan Continue per plan of care Recommended Discharge Destination: Sub-acute Rehabilitation Recommended Discharge Services: Occupational therapy at rehabilitation facility Recommended Discharge Equipment: To be determined by next care provider Pager: [phone] Elsa Beckford OT, 08/08/2023, 10:23 * Rosa Isela Campbell MD - 08/08/2023 0647 EDT Acute Care Surgery Progress Note Service Date: 08/08/2023 Admit Date: 06/13/2023 23:23 Procedure(s): Nec fasc debridement x2 (OSH) Serial debridement, repair rectal injury (06/14) Additional debridement, washout (06/16) Additional debridement, washout, partial closure (06/18) Washout, wound vac change (06/25) Wound vac change (07/09) Split thickness skin graft (07/30) Chief Complaint: NSTI 24 Hour Events: -no acute changes overnight Subjective Holden states that her vaginal itchiness has improved since the medication. States some soaking on thedressing and was changed by nursing overnight. States some weakness in the left upper and lower extremity wishes to work with therapy. Objective Vital Signs: Temp: [36.6 ??C (97.8 ??F)-36.9 ??C (98.5 ??F)] Heart Rate: [75 BPM] Pulse: -- Pulse From Oximetry: [77 BPM-94 BPM] Resp: [16-18] BP: (144-158)/(63-68) SpO2: [95 %-100 %] I/O: Intake/Output Summary (Last 24 hours) at 08/08/2023 0647 Last data filed at 08/08/2023 0600 Gross per 24 hour Intake 2910 ml Output 3125 ml Net -215 ml I&O By Type - 3 Shifts Including Current In: 2910 [P.O.:2640; Other:270] Out: 3125 [Urine:2125; Drains:1000] Physical Exam: Gen: awake, alert, cooperative Resp: unlabored on room air Abd: soft, non-distended, non-tender : dressings over right buttock and right thigh with a little stool on the dressing near the rectal tube, vuong in place, rectal tube in place Psych: appropriate mood and affect Labs: CBC: Recent Labs 08/05/23 0648 WBC 8.42 RBC 3.38* HGB 9.4* HCT 28.4* MCV 84 MCH 27.8 MCHC 33.1 PLT 327 NEUTROABS 5.17 BMP: Recent Labs 08/05/23 0648 NA 137 K 3.9 CL 105 CO2 21* BUN 13 CREATININE 0.43* CALCIUM 10.1 Glucose: Glucose, POC Date/Time Value Ref Range Status 08/07/2023 21:03 164 (H) 70 - 100 mg/dL Final Assessment 52 y.o. female with a history of HTN and T2DM who presented as a transfer from [facility] on 06/12 with necrotizing fasciitis. S/p debridement x2 at OSH and s/p debridement at [facility] on 06/14.Post-operative bradycardic arrest x2 early in hospital course, suspected heart block vs vagal event. Recovered normal cardiac function, EP cards signed off. Had transferred to floor however on 07/02 required transfer to SICU for hypoxic respiratory failure secondary to atelectasis/mucous plugging. Intubated for bronchoscopy, now extubated and stable on nasal cannula. Doing well with respiratory therapy. Was undergoing local wound care and serial debridements, as well as pulmonary toilet. Wound site now grafted with split thickness skin graft on 07/30. Continues to recover well from skin graft. Will continue to monitor and do dressing changes MWF. Plan Multimodal pain control RLE graft dressing with Xeroform and 12x12 gauze, change MWF Leave donor site dressing for 7 days until 08/11 RT for airway clearance Q4H, DuoNebs Consistent carbohydrate diet, Endocrine following, appreciate their assistance with DM management Rectal tube for wound hygiene Nystatin powder BID ordered to perianal/gluteal cleft skin Ensure to cycle balloon daily as per nursing/floor protocol Lasix 40mg PO daily Continue bedtime seroquel 25 mg at bedtime Encourage aggressive IS Labs every Saturday, Activity as tolerated, encourage physical therapy to work with her. Only precautions include no sliding/shearing forces on RLE wound and no sitting for prolonged periods of time. Okay to sit up for meals and while working with physical therapy, but minimize direct sitting pressure on graft for more than an hour at a time VTE prophylaxis: Pharmacologic Prophylaxis: Enoxaparin (Lovenox) 40 mg SQ daily Dispo: pending clinical course ROSA ISELA CAMPBELL MD 08/08/2023 6:47 Pager: [phone] * Nabila English NP - 08/07/2023 1420 EDT Endocrine/Diabetes Follow Up/Progress Note Admit Date: 06/13/2023 Hospital day LOS: 55 days Date of Service: 08/07/2023 Reason for Following: T2DM Inpatient glycemic management, Necrotizing Fasciitis HPI: 52 y/o F with PMH of T2 DM, HTN, Anxiety/Depression, admitted via ER with R Gluteal Necrotizing Fasciitis 06/12, complicated by Post-operative bradycardic arrest x2 early in hospital course, suspected heart block vs vagal event. Recovered normal cardiac function, EP cards signed off and has hadpersistent respiratory complications. She has undergone serial washouts/debridements and wound vac placements, nearing evaluation for skin graft viability per surgical note. Subjective: Says feels pretty good today. Appetite good, plans to eat all her breakfast. Diabetes History: Onset: ~ 10-15 yr ago Control: A1C 8.2 on 06/13 Complications: Peripheral Neuropathy, infected wound Home Regimen: On no meds at home Says previously she had taken insulin Tries to watch diet SBGM and Self Care: Stopped taking FS Current Diet: Regular (added Consistent Carb) Social Information: Single, Lives in [facility], has male partner. 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 Unsure of family history maybe grandparents w DM Regular Diabetes Provider: PCP ROS: No N/V No CP/SOB No fevers/chills Objective/Physical Exam: VS: BP: (!) 145/67 Pulse: 88 Heart Rate: 75 BPM Resp: 18 Temp: 36.7 ??C (98.1 ??F) SpO2: 95 % O2 Flow Rate (L/min): 0 l/min O2 Device: None FIO2 %: 21 % Weight: Weight : 76.6 kg (168 lb 14.4 oz) Body mass index is 29.93 kg/m??. Food Intake: DIET REGULAR Activity:bedrest Exam: Sitting up in bed. Eating breakfast A&O x4 Rectal tube and vuong in place dressing to right buttock, right thigh donor site (Shawanda changed by surgical team this AM) Data Review: Labs: Recent Labs 08/04/234 08/05/23 0732 08/05/23 1125 08/05/23 1652 08/05/23 2113 08/06/23 0732 08/06/23 1246 08/06/23 1813 08/06/23 2137 08/07/23 0915 08/07/23 1019 08/07/23 1255 GLUCOSEPOC 180* 169* 140* 192* 190* 186* 162* 159* 154* 167* 189* 136* Lab Results Component Value Date HGBA1C 8.2 (H) 06/14/2023 Lab Results Component Value Date SERGLU 157 (H) 08/05/2023 NA 137 08/05/2023 K 3.9 08/05/2023 CL 105 08/05/2023 CO2 21 (L) 08/05/2023 BUN 13 08/05/2023 CREATININE 0.43 (L) 08/05/2023 CALCIUM 10.1 08/05/2023 Assessment 52 y/o F with 10-15 yr H/O T2 DM, manages with dietary measures, A1C is uncontrolled. Has PMH of HTN, Anxiety/Depression, admitted via ER with R Gluteal Necrotizing Fasciitis 06/12, complicated by Post-operative bradycardic arrest x2 early in hospital course, suspected heart block vs vagal event. Recovered normal cardiac function, EP cards signed off and has had persistent respiratory complications. She has undergone serial washouts/debridements and wound vac placements. Renal function WNL. Had split thickness skin graft to buttock wound on 6/5, dressing change today Blood sugar mildly elevated overnight. No significant post meal hyperglycemia. Will increase Lantusby ~ 10% continue aspart at present doses. Plan: 1. Lantus: Slight increase to 33 units once daily 2. Aspart: Inject 9 units if patient eats entire meal, inject 5 units if patient eats 50% of meal, Hold if NPO 3. Aspart SSI: Dosing regimen weight between 76-100 kg BG Units 66-140 0 141-180 2 181-210 3 211-250 5 251-299 7 > 299 11 4. Aspart HS: 5 units at HS if BG > 250 and recheck BG at midnight 5. FS: AC/HS/PRN 6. Pt will benefit from Diabetes education as likely will need to discharge on insulin 7. Consider introduction of non-insulin agents (GLP1) as adjunct therapy to insulin, once closer todischarge, perhaps CGM. Would avoid SGLT-2 with open groin wound unless she will have mcc vuong catheter w discharge 8. Will continue to follow with you. Discharge Plan: TBD Nabila English NP 08/07/2023 14:20 * Nedra Armendariz RN - 08/07/2023 1319 EDT The Department of Case Management and Social Work Case Management Progress Note Patient Name Level of Care and Accommodation Code: Patient Class: Medically Ready: Y/N Della Browning Acute General Inpatient N Primary Dx: Decisional Capacity: Y/N Primary Support/ CareGiver: Advance Directive Necrotizing fasciitis ([facility]) Y N Advance Directives (For Healthcare) Healthcare Directive: No, patient does not have advance directive for healthcare treatment Information Provided on Healthcare Directives: Yes Information on Healthcare Directives Requested: No Disposition Information Appropriate to transfer back: Y/N Length of Stay (in days): Estimated Date of D/C: LTC Medicaid Status: N 55 08/13 N Primary Care Provider: AR/ANDRES/SNF referred: Y/N Bed Offers: Y/N Escalated to Leadership: Y/N UNKNOWN,PROVIDER N N N Mobility Level: Recommended D/C Location Payor: Bedside Mobility Assessment Tool (BMAT) Bedrest or non-weight bearing orders?: No Assessment Level 1-Sit & Shake: Pass Assessment Level 2-Stretch & Point: Pass Assessment Level 3-Stand: Fail Assessment Level 4-Step: Fail Mobility level determined: Mobility Level 2 use lift (ceiling or portable), sliding aid/sheet, air-assisted sliding aid Number of caregivers reccommended: 2 Recommended Discharge Destination PT Recommended Discharge Destination: Subacute rehabilitation Pay[place] / Plan[place] /Product Type[place] GL / Barriers to Discharge N/a; remains medically acute for continued IP admission at [facility] Nec fasc debridement x2 (OSH) Serial debridement, repair rectal injury (06/14) Additional debridement, washout (06/16) Additional debridement, washout, partial closure (06/18) Wound vac application (06/21) Wound debridement with [place] replacement in OR (07/09) STSG (07/30) Plan Level of Care: Acute/ IP Admission Point of Origin: [facility] Appropriate for Transfer Return vs Alternative Facility: N/a (reviewed with team 07/07, 07/10, week of 07/14, week of 07/22, week of 08/04). Discharge plan/ Estimated date: TBD Insurance/ LTC Medicaid Status: Medicaid Support Network: anya Lezama ([phone]); Henrietta Hensley ([phone]) (CM Note 08/06:) One week out today from STSG (07/30) Continues with every other day dressing orders with xeroform/ gauze. (Orders for donor site dressing to remain intact x7days) Rectal tube remains in place and will be assessed for removal as appropriate by Attending. Current status and plan of care discussed with Primary team this morning in rounds. Do not anticipate readiness to list for [facility] facilities per therapy recommendations until next week (week of 08/11). (CM Note 08/04:) Provided check-in with patient today following dressing change by Provider. Brought patient hearing aid batteries to bedside. Remains medically acute for continued hospitalization due to recent STSG and current wound care regimen. Plan to list for Sub Acute Rehab setting once appropriate to transition to alternative level of care. Daily updates received from team. PER ATTENDING today: Xeroform and 12x12 gauze placed to graft, held in place with a #8 band net pant. Plan for dressing change every other day and when soiled. Will leave donor site dressing in place for 7 days. Once STSG is more sturdy, will remove rectal tube and vuong. 1 mg total of IV dilaudid given for dressing change and she tolerated it well. (Moo Monique MD) (CM Note 07/29:) Chart reviewed and current status discussed with Primary team this morning in rounds. Next wound vac change scheduled for 07/31. Acell has been applied weekly to wound bed with vac changes; goal for skin graft - date pending. Current LDA's: Indwelling catheter, Rectal Tube, Wound Vac Current Infusions: N/a Recommended for eventual transfer to a Sub Acute Rehab setting. This CM will list for facilities once closer to medical readiness for transfer/ week+ following skin graft. (Patient's residence is in [facility] with partner [place]). (CM Note 07/25:) Remains medically acute for continued inpatient care at [facility]. Last wound vac change with Acell application to wound bed yesterday 07/24. Next wound vac change scheduled for 07/31 Plan to list for Sub Acute Rehab once closer to medical readiness for transfer. (CM Note 07/22:) Chart reviewed and updates received from Primary team in morning rounds. Patient with necrotizing fasciitis with Wound vac application. Last change 07/16 with next change planned for tomorrow 07/23. Receiving Acell application to wound bed. Remains medically acute for ongoing wound management at [facility]. (CM Note 07/16:) Patient with Wound Vac change this morning (please refer to KATY Duval progress note). Replaced WV; using acellular matrix overlying wound bed with vendor following on site. May require another week of WV prior to further determination of treatment care plan. Per ongoing discussions with Primary team, patient is Not a candidate for transfer return to [facility] due to acuity of wound care requiring current services of ACS. Otherwise, CM is continuing to follow and will provide additional updates regarding any status changes as appropriate. (CM Note 07/14:) Chart reviewed and updates received this morning from Primary team in rounds. Plan for Wound Vac change this Sunday 07/16 with possible STSG dependent on assessment of wound bed. Patient asleep at time of CM visit. Discussed care with Nursing. Acute therapies following and currently recommending for short-term Sub Acute Rehab stay. Will listonce closer to medical readiness with more clear plan of care in place. Not currently getting up out of bed. WV, rectal tube, indwelling vuong cath intact. This CM will continue to follow and assist with coordination of disposition plan dependent on clinical course/ care team recommendations. Please reach out with any additional questions/ concerns, or acute changes in care plan in order toprovide patient with adequate supports. (CM Note 07/10:) Plan continues for WV reassessment on Friday 07/14 with possible skin graft pending following vac removal. Worked with PT today at bedside with eventual recommendations for a short-term Sub Acute Rehab stay. This CM will list for rehab facilities once closer to medical readiness for a transition to the next appropriate level of care. Will reassess clinical status Saturday following Wound Vac change. Please reach out with any additional questions/ concerns, or acute changes in care plan in order toprovide patient with adequate supports. E-Signature Nedra Armendariz RN CM CMSW Department (Available via Mideo[employer]) * Rosa Isela Campbell MD - 08/07/2023 0822 EDT Acute Care Surgery Progress Note Service Date: 08/07/2023 Admit Date: 06/13/2023 23:23 Procedure(s): Nec fasc debridement x2 (OSH) Serial debridement, repair rectal injury (06/14) Additional debridement, washout (06/16) Additional debridement, washout, partial closure (06/18) Washout, wound vac change (06/25) Wound vac change (07/09) Split thickness skin graft (07/30) Chief Complaint: NSTI 24 Hour Events: -Dressings taken down this morning, with no new concerns -1x fluconazole for vaginal itching with known cx positive for franny -no acute changes overnight Subjective Holden states that her vaginal itchiness has improved, otherwise, no new changes, no cp, sob. Pain controlled Objective Vital Signs: Temp: [36.7 ??C (98 ??F)-37.1 ??C (98.8 ??F)] Heart Rate: [73 BPM-88 BPM] Pulse: [88] Pulse From Oximetry: [73 BPM-86 BPM] Resp: [18] BP: (122-145)/(56-67) SpO2: [97 %-100 %] I/O: Intake/Output Summary (Last 24 hours) at 08/07/2023 0822 Last data filed at 08/07/2023 0628 Gross per 24 hour Intake 2085 ml Output 4375 ml Net -2290 ml I&O By Type - 3 Shifts Including Current In: 1260 [P.O.:1080; Other:180] Out: 2875 [Urine:1200; Drains:1675] Physical Exam: Gen: awake, alert, cooperative Resp: unlabored on room air Abd: soft, non-distended, non-tender : dressings over right buttock and right thigh with a little stool on the dressing near the rectal tube, vuong in place, rectal tube in place Psych: appropriate mood and affect Labs: CBC: Recent Labs 08/05/23 0648 WBC 8.42 RBC 3.38* HGB 9.4* HCT 28.4* MCV 84 MCH 27.8 MCHC 33.1 PLT 327 NEUTROABS 5.17 BMP: Recent Labs 08/05/23 0648 NA 137 K 3.9 CL 105 CO2 21* BUN 13 CREATININE 0.43* CALCIUM 10.1 Glucose: Glucose, POC Date/Time Value Ref Range Status 08/06/2023 21:37 154 (H) 70 - 100 mg/dL Final Assessment 52 y.o. female with a history of HTN and T2DM who presented as a transfer from [facility] on 06/12 with necrotizing fasciitis. S/p debridement x2 at OSH and s/p debridement at [facility] on 06/14.Post-operative bradycardic arrest x2 early in hospital course, suspected heart block vs vagal event. Recovered normal cardiac function, EP cards signed off. Had transferred to floor however on 07/02 required transfer to SICU for hypoxic respiratory failure secondary to atelectasis/mucous plugging. Intubated for bronchoscopy, now extubated and stable on nasal cannula. Doing well with respiratory therapy. Was undergoing local wound care and serial debridements, as well as pulmonary toilet. Wound site now grafted with split thickness skin graft on 07/30. Continues to recover well from skin graft. Will continue to monitor and do dressing changes MWF. Plan Multimodal pain control RLE graft dressing with Xeroform and 12x12 gauze, change MWF Leave donor site dressing for 7 days until 08/11 RT for airway clearance Q4H, Greta Consistent carbohydrate diet, Endocrine following, appreciate their assistance with DM management Rectal tube for wound hygiene Nystatin powder BID ordered to perianal/gluteal cleft skin Ensure to cycle balloon daily as per nursing/floor protocol Lasix 40mg PO daily Continue bedtime seroquel 25 mg at bedtime Will consider continuing fluconazole depending on patient response to medication and presentation of symptoms. Encourage aggressive IS Labs every Saturday, Activity as tolerated, encourage physical therapy to work with her. Only precautions include no sliding/shearing forces on RLE wound and no sitting for prolonged periods of time. Okay to sit up for meals and while working with physical therapy, but minimize direct sitting pressure on graft for more than an hour at a time VTE prophylaxis: Pharmacologic Prophylaxis: Enoxaparin (Lovenox) 40 mg SQ daily Dispo: pending clinical course ROSA ISELA CAMPBELL MD 08/07/2023 8:22 Pager: [phone] * Carmen Vernon NP - 08/06/2023 1987 EDT Endocrine/Diabetes Follow Up/Progress Note Admit Date: 06/13/2023 Hospital day LOS: 54 days Date of Service: 08/06/2023 Reason for Following: T2DM Inpatient glycemic management, Necrotizing Fasciitis HPI: 52 y/o F with PMH of T2 DM, HTN, Anxiety/Depression, admitted via ER with R Gluteal Necrotizing Fasciitis 06/12, complicated by Post-operative bradycardic arrest x2 early in hospital course, suspected heart block vs vagal event. Recovered normal cardiac function, EP cards signed off and has hadpersistent respiratory complications. She has undergone serial washouts/debridements and wound vac placements, nearing evaluation for skin graft viability per surgical note. Subjective: pt states she feels well this AM. Just worked with PT, stood up at edge of bed, she states she does not like sitting in chair but would rather recline in bed. Diabetes History: Onset: ~ 10-15 yr ago Control: A1C 8.2 on 06/13 Complications: Peripheral Neuropathy, infected wound Home Regimen: On no meds at home Says previously she had taken insulin Tries to watch diet SBGM and Self Care: Stopped taking FS Current Diet: Regular (added Consistent Carb) Social Information: Single, Lives in [facility], has male partner. 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 Unsure of family history maybe grandparents w DM Regular Diabetes Provider: PCP ROS: No N/V No CP/SOB No fevers/chills Objective/Physical Exam: VS: BP: 122/60 Pulse: 82 Heart Rate: 78 BPM Resp: 18 Temp: 36.8 ??C (98.2 ??F) SpO2: 98 % O2 Flow Rate (L/min): 0 l/min O2 Device: None FIO2 %: 21 % Weight: Weight : 76.6 kg (168 lb 14.4 oz) Body mass index is 29.93 kg/m??. Food Intake: DIET REGULAR Activity:bedrest Exam: Resting in bed on left side Talkative A&O Rectal tube and vuong, dressing to right buttock, right thigh donor site Data Review: Labs: Recent Labs 08/03/23 1804 08/03/23 1951 08/04/23 0751 08/04/23 1258 08/04/23 1838 08/04/23 2124 08/05/23 0732 08/05/23 1125 08/05/23 1652 08/05/23 2113 08/06/23 0732 08/06/23 1246 GLUCOSEPOC 173* 159* 194* 121* 165* 180* 169* 140* 192* 190* 186* 162* Lab Results Component Value Date HGBA1C 8.2 (H) 06/14/2023 Lab Results Component Value Date SERGLU 157 (H) 08/05/2023 NA 137 08/05/2023 K 3.9 08/05/2023 CL 105 08/05/2023 CO2 21 (L) 08/05/2023 BUN 13 08/05/2023 CREATININE 0.43 (L) 08/05/2023 CALCIUM 10.1 08/05/2023 Assessment 52 y/o F with 10-15 yr H/O T2 DM, manages with dietary measures, A1C is uncontrolled. Has PMH of HTN, Anxiety/Depression, admitted via ER with R Gluteal Necrotizing Fasciitis 06/12, complicated by Post-operative bradycardic arrest x2 early in hospital course, suspected heart block vs vagal event. Recovered normal cardiac function, EP cards signed off and has had persistent respiratory complications. She has undergone serial washouts/debridements and wound vac placements. Renal function WNL. Had split thickness skin graft to buttock wound on 07/30, dressing change today Blood sugar 186 fasting this AM, BG trends stable, target 140-180. Will continue current Lantus andaspart today. Will continue to monitor and make adjustments as needed. Plan: 1. Lantus: continue Lantus 30 units once daily 2. Aspart: Inject 9 units if patient eats entire meal, inject 5 units if patient eats 50% of meal, Hold if NPO 3. Aspart SSI: Dosing regimen weight between 76-100 kg BG Units 66-140 0 141-180 2 181-210 3 211-250 5 251-299 7 > 299 11 4. Aspart HS: 5 units at HS if BG > 250 and recheck BG at midnight 5. FS: AC/HS/PRN 6. Pt will benefit from Diabetes education as likely will need to discharge on insulin 7. Consider introduction of non-insulin agents (GLP1/SGLT2) as adjunct therapy to insulin, once closer to discharge, perhaps CGM 8. Will continue to follow with you. Discharge Plan: TBD Carmen Vernon NP 08/06/2023 13:43 * Teresita Mcneal, PT - 08/06/2023 1238 EDT Rehabilitation Therapy Acute Therapies [facility] Physical Therapy Progress Note Date of Service: 08/06/2023 Precautions: activity as tolerated, no sliding, No sitting on graft for more than 4 hours at a timeand avoid shearing Subjective/Objective Subjective Pt reports improved pain today. Motivated to mobilize Objective Intervention Completed Today: Time: 1025 Total treatment time: 25 minutes. Timed code treatment minutes: 25 Vital signs have been stable with interventions and were not monitored. Therapeutic activity Supine upon arrival. Pt reports improved pain today; not rated. Worse with mobility, better at rest PT donned socks/shoes Supine>sit to L with rail and mincontact ax1. Pt aware of avoiding shearing motions with mobility Pt can maintain seated balance indep with UE support Discussed use of Leander Steady to promote BLE WB and mobility Sit<>stand from EOB mincontact ax2 with leander steady. Performed 3x. Pt able to maintain staticstance with BUE use on Leander Steady 30-60 seconds. Mild buckling of L knee. Pt reports baseline L side weakness. Sit>supine from L with supervision. Pt able to scoot up in bed in slight L side lying position with BUE use. L l'nard applied Call marroquin in reach Pt left with member of the team who arrived Patient/Family Education: Topic: Discharge planning Equipment use Positioning Precautions/protocol Role of therapy Safety Transfers Learner: patient Method: verbal Barriers to Learning: none noted Outcome: requires assist, needs practice, and verbalized understanding Team Communication: RN pre/post PT In this reporting period 06/27 to 08/05 the patient has been seen by a physical therapist. Please refer to the physical therapy encounter notes for specifics on the patient's functional status and treatment sessions. Relevant objective findings: AROUSAL, ATTENTION, AND COGNITION: A+0x3 INTEGUMENTARY/ANTHROPOMETRIC CHARACTERISTICS: Rectal tube, vuong intact. R anterior thigh STSG donor site and R gluteal graft site not formally assessed. Refer to RN/MD notes for specific details MUSCLE PERFORMANCE: BLE 3/5 or greater except L ankle 2-/5 SENSATION, REFLEXES, AND NERVE INTEGRITY: Wnl BLE except baseline diminished distal LLE BALANCE, MOBILITY, AND GAIT: Please refer above to Interventions Completed Today SELF-CARE, HOME MANAGEMENT, WORK, AND LEISURE: Please refer above to Interventions Completed Today Assessment/Plan Assessment Physical Therapy Diagnosis:Physical Therapy Diagnosis: This patient presents with a Physical Therapy diagnosis of :Impaired aerobic capacity, Impaired gait, Impaired mobility, Impaired self care, Pain, Lower extremity dysfunction, and Upper extremity dysfunction impacted by impairments of: activity tolerance, balance, endurance, fear/anxiety, integumentary, pain, sensation, sitting tolerance, and standing tolerance Physical Therapy Prognosis: Physical therapy is medically necessary to: address these body structure/function impairments, activity limitations, and participation restrictions, establish and progress mobility/exercise and provide recommendations for staff and safe discharge planning, facilitate return to prior level of function, improve safety and independence, provide education in a home exercise program to address impairments in body function and structures and promote increased activity and participation, and provide family/caregiver education to assist the patient Pt has been followed by PT services during prolonged hospitalization. Pain has limited some of her ability to participate with therapy in addition to multiple surgeries/procedures including STSG 07/30.Today pt was able to stand with 2 assist and use of Leander Steady. She appears motivated and eager toregain her strength and overall indep. Given her functional deficits she will require ANDRES when stabl e to address deficits and maximize her functional performance. Recommend progressive OOB mobility via leander steady use with staff daily as pt tolerates while maintaining seated restriction duration Short-Term Goals: 1-2 weeks Rolling minimal assist of one MET Supine to sit moderate assist of one MET Tolerate standing with bilateral UE support with moderate assist of one MET Bed to chair transfer;via leander steady;dc Tolerate sitting out of bed for 30 minutes;dc Long-Term Goals: 3-4 weeks; dc unless noted below Ms Browning will be able to; perform bed mobility independently demonstrating appropriate sequencing/motor planning. perform bed to chair transfers with modified independence while demonstrating appropriate hand placement with assistive device use. ambulate with modified independence feet with the least restrictive assistive device with step through gait and heel contact, with most upright posture. recall and demonstrate precautions without cues. perform stairs with supervision assist with appropriate home set up and proper sequencing. DC goal as it's not appropriate; pt has ramp entry be aware of the recommendations provided and demonstrate an appropriate technique/understanding of the recommendations. MET perform therapeutic exercises 10 times active with good technique with written copy of exercises.MET NEW GOALS OF 08/05 TO BE MET X 6 WEEKS Pt will perform bed mobility mod indep with features Pt will transfer mincontact ax1 all surfaces with appropriate DME Pt will ambulate >20' rw mincontact ax1 Pt will be consistent in verbalizing/demonstrating precautions with mobility Pt will be indep with BLE exercise program Plan Physical therapy to be provided by physical therapist and/or physical therapist executive marketing assistant when medically appropriate Frequency: daily for 1-3x/week Intensity: 15-30 minutes per session Duration: During hospitalization Interventions: Therapeutic exercises and Therapeutic activities Patient/Family Education: Discharge planning, Equipment, Family training, Recommendations, Role of physical therapy/rehabilitation, Safety Further Data: NA Recommended Discharge Destination: Sub-acute rehabilitation Recommended Discharge Services: Physical therapy at rehabilitation facility Recommended Equipment Needs: To be determined by next care provider Other recommendations: No other consults recommended at this time Pager: [phone] TERESITA MCNEAL PT 08/06/2023 12:38 * Isabell Nolasco MD - 08/06/2023 1150 EDT Acute Care Surgery Progress Note Service Date: 08/06/2023 Admit Date: 06/13/2023 23:23 Procedure(s): Nec fasc debridement x2 (OSH) Serial debridement, repair rectal injury (06/14) Additional debridement, washout (06/16) Additional debridement, washout, partial closure (06/18) Washout, wound vac change (06/25) Wound vac change (07/09) Split thickness skin graft (07/30) Chief Complaint: NSTI 24 Hour Events: Dressings taken down yesterday NAEO Subjective Doing so so this morning. Pain well controlled. No complaints. Eating well. Objective Vital Signs: Temp: [36.6 ??C (97.8 ??F)-37.2 ??C (99 ??F)] Heart Rate: [73 BPM-82 BPM] Pulse: [82] Pulse From Oximetry: [73 BPM-78 BPM] Resp: [16-18] BP: (122-140)/(56-63) SpO2: [98 %-99 %] I/O: Intake/Output Summary (Last 24 hours) at 08/06/2023 1150 Last data filed at 08/06/2023 1100 Gross per 24 hour Intake 2285 ml Output 4400 ml Net -2115 ml I&O By Type - 3 Shifts Including Current In: 1140 [P.O.:960; Other:180] Out: 3125 [Urine:1525; Drains:1600] Physical Exam: Gen: awake, alert, cooperative Resp: unlabored on room air Abd: soft, non-distended, non-tender : dressings over right buttock and right thigh with a little stool on the dressing near the rectal tube, vuong in place, rectal tube in place Psych: appropriate mood and affect Labs: CBC: Recent Labs 08/05/23 0648 WBC 8.42 RBC 3.38* HGB 9.4* HCT 28.4* MCV 84 MCH 27.8 MCHC 33.1 PLT 327 NEUTROABS 5.17 BMP: Recent Labs 08/05/23 0648 NA 137 K 3.9 CL 105 CO2 21* BUN 13 CREATININE 0.43* CALCIUM 10.1 Glucose: Glucose, POC Date/Time Value Ref Range Status 08/06/2023 07:32 186 (H) 70 - 100 mg/dL Final Assessment 52 y.o. female with a history of HTN and T2DM who presented as a transfer from [facility] on 06/12 with necrotizing fasciitis. S/p debridement x2 at OSH and s/p debridement at [facility] on 06/14.Post-operative bradycardic arrest x2 early in hospital course, suspected heart block vs vagal event. Recovered normal cardiac function, EP cards signed off. Had transferred to floor however on 07/02 required transfer to SICU for hypoxic respiratory failure secondary to atelectasis/mucous plugging. Intubated for bronchoscopy, now extubated and stable on nasal cannula. Doing well with respiratory therapy. Was undergoing local wound care and serial debridements, as well as pulmonary toilet. Wound site now grafted with split thickness skin graft on 07/30. Continues to recover well from skin graft. Plan for dressing change tomorrow. Plan Multimodal pain control RLE graft dressing with Xeroform and 12x12 gauze, change MWF Leave donor site dressing for 7 days until 08/11 RT for airway clearance Q4H, Greta Consistent carbohydrate diet, Endocrine following, appreciate their assistance with DM management Rectal tube for wound hygiene Nystatin powder BID ordered to perianal/gluteal cleft skin Ensure to cycle balloon daily as per nursing/floor protocol Lasix 40mg PO daily Continue bedtime seroquel 25 mg qhs Encourage aggressive IS Labs every Saturday, Activity as tolerated, encourage physical therapy to work with her. Only precautions include no sliding/shearing forces on RLE wound and no sitting for prolonged periods of time. Okay to sit up for meals and while working with physical therapy, but minimize direct sitting pressure on graft for more than an hour at a time VTE prophylaxis: Pharmacologic Prophylaxis: Enoxaparin (Lovenox) 40 mg SQ daily Dispo: pending clinical course ISABELL NOLASCO MD 08/06/2023 11:50 Pager: [phone] Associated attestation - Ramón Peraza MD - 08/06/2023 1611 EDT I saw and examined this patient with the residents and agree with the above note as it relates to the observations that were made and the treatment plan that was proposed. My specific comments follow: NSTI. Multiple D&I. Now S/P STSG Decent take of skin but with some maceration secondary to proximity to urinary and anal openings. Continue current wound care * Nedra Armendariz RN - 08/05/2023 1634 EDT The Department of Case Management and Social Work Case Management Progress Note Patient Name Level of Care and Accommodation Code: Patient Class: Medically Ready: Y/N Della Browning Acute General Inpatient N Primary Dx: Decisional Capacity: Y/N Primary Support/ CareGiver: Advance Directive Necrotizing fasciitis ([facility]) Y N Advance Directives (For Healthcare) Healthcare Directive: No, patient does not have advance directive for healthcare treatment Information Provided on Healthcare Directives: Yes Information on Healthcare Directives Requested: No Disposition Information Appropriate to transfer back: Y/N Length of Stay (in days): Estimated Date of D/C: LTC Medicaid Status: N 53 08/08 N Primary Care Provider: AR/ANDRES/SNF referred: Y/N Bed Offers: Y/N Escalated to Leadership: Y/N UNKNOWN,PROVIDER N N N Mobility Level: Recommended D/C Location Payor: Bedside Mobility Assessment Tool (BMAT) Bedrest or non-weight bearing orders?: No Assessment Level 1-Sit & Shake: Pass Assessment Level 2-Stretch & Point: Pass Assessment Level 3-Stand: Fail Assessment Level 4-Step: Fail Mobility level determined: Mobility Level 2 use lift (ceiling or portable), sliding aid/sheet, air-assisted sliding aid Number of caregivers reccommended: 2 Recommended Discharge Destination PT Recommended Discharge Destination: Subacute rehabilitation Pay[place] / Plan[place] /Product Type[place] GL / Barriers to Discharge N/a; remains medically acute for continued IP admission at [facility] Nec fasc debridement x2 (OSH) Serial debridement, repair rectal injury (06/14) Additional debridement, washout (06/16) Additional debridement, washout, partial closure (06/18) Wound vac application (06/21) Wound debridement with WV replacement in OR (07/09) STSG (07/30) Plan Level of Care: Acute/ IP Admission Point of Origin: [facility] Appropriate for Transfer Return vs Alternative Facility: N/a (reviewed with team 07/07, 07/10, week of 07/14, week of 07/22, week of 08/04). Discharge plan/ Estimated date: TBD Insurance/ LTC Medicaid Status: Medicaid Support Network: sig germain Lezama ([phone]); Henrietta Hensley ([phone]) (CM Note 08/04:) Provided check-in with patient today following dressing change by Provider. Brought patient hearing aid batteries to bedside. Remains medically acute for continued hospitalization due to recent STSG and current wound care regimen. Plan to list for Sub Acute Rehab setting once appropriate to transition to alternative level of care. Daily updates received from team. PER ATTENDING today: Xeroform and 12x12 gauze placed to graft, held in place with a #8 band net pant. Plan for dressing change every other day and when soiled. Will leave donor site dressing in place for 7 days. Once STSG is more sturdy, will remove rectal tube and vuong. 1 mg total of IV dilaudid given for dressing change and she tolerated it well. (Moo Monique MD) (CM Note 07/29:) Chart reviewed and current status discussed with Primary team this morning in rounds. Next wound vac change scheduled for 07/31. Acell has been applied weekly to wound bed with vac changes; goal for skin graft - date pending. Current LDA's: Indwelling catheter, Rectal Tube, Wound Vac Current Infusions: N/a Recommended for eventual transfer to a Sub Acute Rehab setting. This CM will list for facilities once closer to medical readiness for transfer/ week+ following skin graft. (Patient's residence is in [facility] with partner [place]). (CM Note 07/25:) Remains medically acute for continued inpatient care at [facility]. Last wound vac change with Acell application to wound bed yesterday 07/24. Next wound vac change scheduled for 07/31 Plan to list for Sub Acute Rehab once closer to medical readiness for transfer. (CM Note 07/22:) Chart reviewed and updates received from Primary team in morning rounds. Patient with necrotizing fasciitis with Wound vac application. Last change 07/16 with next change planned for tomorrow 07/23. Receiving Acell application to wound bed. Remains medically acute for ongoing wound management at [facility]. (CM Note 07/16:) Patient with Wound Vac change this morning (please refer to KATY Duval progress note). Replaced WV; using acellular matrix overlying wound bed with vendor following on site. May require another week of WV prior to further determination of treatment care plan. Per ongoing discussions with Primary team, patient is Not a candidate for transfer return to [facility] due to acuity of wound care requiring current services of ACS. Otherwise, CM is continuing to follow and will provide additional updates regarding any status changes as appropriate. (CM Note 07/14:) Chart reviewed and updates received this morning from Primary team in rounds. Plan for Wound Vac change this Sunday 07/16 with possible STSG dependent on assessment of wound bed. Patient asleep at time of CM visit. Discussed care with Nursing. Acute therapies following and currently recommending for short-term Sub Acute Rehab stay. Will listonce closer to medical readiness with more clear plan of care in place. Not currently getting up out of bed. WV, rectal tube, indwelling vuong cath intact. This CM will continue to follow and assist with coordination of disposition plan dependent on clinical course/ care team recommendations. Please reach out with any additional questions/ concerns, or acute changes in care plan in order toprovide patient with adequate supports. (CM Note 07/10:) Plan continues for WV reassessment on Friday 07/14 with possible skin graft pending following vac removal. Worked with PT today at bedside with eventual recommendations for a short-term Sub Acute Rehab stay. This CM will list for rehab facilities once closer to medical readiness for a transition to the next appropriate level of care. Will reassess clinical status Saturday following Wound Vac change. Please reach out with any additional questions/ concerns, or acute changes in care plan in order toprovide patient with adequate supports. E-Signature Nedra Armendariz RN CM [facility] Department (Available via [employer]ideo[employer]) * Isabell Nolasco MD - 08/05/2023 1423 EDT Images from the original note were not included. Acute Care Surgery Progress Note Service Date: 08/05/2023 Admit Date: 06/13/2023 23:23 Procedure(s): Nec fasc debridement x2 (OSH) Serial debridement, repair rectal injury (06/14) Additional debridement, washout (06/16) Additional debridement, washout, partial closure (06/18) Washout, wound vac change (06/25) Wound vac change (07/09) Split thickness skin graft (07/30) Chief Complaint: NSTI 24 Hour Events: No acute events overnight Subjective Doing well this morning. Pain well controlled on current regimen. No complaints. Eating well. Objective Vital Signs: Temp: [36.6 ??C (97.9 ??F)-37.2 ??C (99 ??F)] Heart Rate: [73 BPM-87 BPM] Pulse: [82-84] Pulse From Oximetry: [73 BPM-87 BPM] Resp: [16-18] BP: (111-156)/(56-71) SpO2: [92 %-100 %] I/O: Intake/Output Summary (Last 24 hours) at 08/05/2023 1423 Last data filed at 08/05/2023 1406 Gross per 24 hour Intake 1755 ml Output 4575 ml Net -2820 ml I&O By Type - 3 Shifts Including Current In: 1755 [P.O.:1440; Other:315] Out: 4575 [Urine:1875; Drains:2700] Physical Exam: Gen: awake, alert, cooperative Resp: unlabored on room air Abd: soft, non-distended, non-tender : dressings over right buttock and right thigh taken down with picture below, vuong in place, rectal tube in place Psych: appropriate mood and affect Labs: CBC: Recent Labs 08/05/23 0648 WBC 8.42 RBC 3.38* HGB 9.4* HCT 28.4* MCV 84 MCH 27.8 MCHC 33.1 PLT 327 NEUTROABS 5.17 BMP: Recent Labs 08/05/23 0648 NA 137 K 3.9 CL 105 CO2 21* BUN 13 CREATININE 0.43* CALCIUM 10.1 Glucose: Glucose, POC Date/Time Value Ref Range Status 08/05/2023 11:25 140 (H) 70 - 100 mg/dL Final Assessment 52 y.o. female with a history of HTN and T2DM who presented as a transfer from [facility] on 06/12 with necrotizing fasciitis. S/p debridement x2 at OSH and s/p debridement at [facility] on 06/14.Post-operative bradycardic arrest x2 early in hospital course, suspected heart block vs vagal event. Recovered normal cardiac function, EP cards signed off. Had transferred to floor however on 07/02 required transfer to SICU for hypoxic respiratory failure secondary to atelectasis/mucous plugging. Intubated for bronchoscopy, now extubated and stable on nasal cannula. Doing well with respiratory therapy. Was undergoing local wound care and serial debridements, as well as pulmonary toilet. Wound site now grafted with split thickness skin graft on 07/30. Overall, continues to recover well from skin graft. Dressings taken down today and replaced with new Xeroform and gauze. Plan Multimodal pain control RLE graft dressing with Xeroform and 12x12 gauze, change MWF Leave donor site dressing for 7 days until 08/11 RT for airway clearance Q4H, Greta Consistent carbohydrate diet, Endocrine following, appreciate their assistance with DM management Rectal tube for wound hygiene Nystatin powder BID ordered to perianal/gluteal cleft skin Ensure to cycle balloon daily as per nursing/floor protocol Lasix 40mg PO daily Continue bedtime seroquel 25 mg qhs Encourage aggressive IS Labs every Saturday, Activity as tolerated, encourage physical therapy to work with her. Only precautions include no sliding/shearing forces on RLE wound and no sitting for prolonged periods of time. Okay to sit up for meals and while working with physical therapy, but minimize direct sitting pressure on graft for more than an hour at a time VTE prophylaxis: Pharmacologic Prophylaxis: Enoxaparin (Lovenox) 40 mg SQ daily Dispo: pending clinical course ISABELL NOLASCO MD 08/05/2023 14:23 Pager: [phone] * Carmen Vernon PALS SPECIALIST - 08/05/2023 9100 EDT Endocrine/Diabetes Follow Up/Progress Note Admit Date: 06/13/2023 Hospital day LOS: 53 days Date of Service: 08/05/2023 Reason for Following: T2DM Inpatient glycemic management, Necrotizing Fasciitis HPI: 52 y/o F with PMH of T2 DM, HTN, Anxiety/Depression, admitted via ER with R Gluteal Necrotizing Fasciitis 06/12, complicated by Post-operative bradycardic arrest x2 early in hospital course, suspected heart block vs vagal event. Recovered normal cardiac function, EP cards signed off and has hadpersistent respiratory complications. She has undergone serial washouts/debridements and wound vac placements, nearing evaluation for skin graft viability per surgical note. Subjective: pt states she feels well this AM, has just had dressing change, no pain presently, eating well, no new complaints Diabetes History: Onset: ~ 10-15 yr ago Control: A1C 8.2 on 06/13 Complications: Peripheral Neuropathy, infected wound Home Regimen: On no meds at home Says previously she had taken insulin Tries to watch diet SBGM and Self Care: Stopped taking FS Current Diet: Regular (added Consistent Carb) Social Information: Single, Lives in [facility], has male partner. 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 Unsure of family history maybe grandparents w DM Regular Diabetes Provider: PCP ROS: No N/V No CP/SOB No fevers/chills Objective/Physical Exam: VS: BP: 120/56 Pulse: 84 Heart Rate: 84 BPM Resp: 18 Temp: 36.6 ??C (97.9 ??F) SpO2: 92 % O2 Flow Rate (L/min): 0 l/min O2 Device: None FIO2 %: 21 % Weight: Weight : 76.6 kg (168 lb 14.4 oz) Body mass index is 29.93 kg/m??. Food Intake: DIET REGULAR Activity:bedrest Exam: Resting in bed on left side Talkative A&O Rectal tube and vuong, dressing to right buttock Data Review: Labs: Recent Labs 08/02/23 1804 08/02/23 2113 08/03/23 0739 08/03/23 1129 08/03/23 1804 08/03/23 1951 08/04/23 0751 08/04/23 1258 08/04/23 1838 08/04/23 2124 08/05/23 0732 08/05/23 1125 GLUCOSEPOC 187* 168* 157* 126* 173* 159* 194* 121* 165* 180* 169* 140* Lab Results Component Value Date HGBA1C 8.2 (H) 06/14/2023 Lab Results Component Value Date SERGLU 157 (H) 08/05/2023 NA 137 08/05/2023 K 3.9 08/05/2023 CL 105 08/05/2023 CO2 21 (L) 08/05/2023 BUN 13 08/05/2023 CREATININE 0.43 (L) 08/05/2023 CALCIUM 10.1 08/05/2023 Assessment 52 y/o F with 10-15 yr H/O T2 DM, manages with dietary measures, A1C is uncontrolled. Has PMH of HTN, Anxiety/Depression, admitted via ER with R Gluteal Necrotizing Fasciitis 06/12, complicated by Post-operative bradycardic arrest x2 early in hospital course, suspected heart block vs vagal event. Recovered normal cardiac function, EP cards signed off and has had persistent respiratory complications. She has undergone serial washouts/debridements and wound vac placements. Renal function WNL. Had split thickness skin graft to buttock wound on 07/30, dressing change today Blood sugar 169 fasting this AM, BG trends stable, target 140-180. Will continue current Lantus andaspart today. Will continue to monitor and make adjustments as needed. Plan: 1. Lantus: continue Lantus 30 units once daily 2. Aspart: Inject 9 units if patient eats entire meal, inject 5 units if patient eats 50% of meal, Hold if NPO 3. Aspart SSI: Dosing regimen weight between 76-100 kg BG Units 66-140 0 141-180 2 181-210 3 211-250 5 251-299 7 > 299 11 4. Aspart HS: 5 units at HS if BG > 250 and recheck BG at midnight 5. FS: AC/HS/PRN 6. Pt will benefit from Diabetes education as likely will need to discharge on insulin 7. Consider introduction of non-insulin agents (GLP1/SGLT2) as adjunct therapy to insulin, once closer to discharge, perhaps CGM 8. Will continue to follow with you. Discharge Plan: TBD Carmen Vernon NP 08/05/2023 12:40 * Elsa Beckford OT - 08/05/2023 1051 EDT [facility] Acute Therapy [facility] Occupational Therapy Contact Note Date of Service: 08/05/2023 Attempted to see patient for OT treatment at ~1000, patient was busy with team for dressing change.Will follow-up as able. Elsa Beckford OT, 08/05/2023, 10:51 * Moo Monique MD - 08/05/2023 1035 EDT Images from the original note were not included. ACS ATTENDING NOTE Chief complaint: NSTI of right buttock Full dressing change done at bedside: absorbent tegaderm to right thigh donor site changed. No ongoing bleeding. 18x18 gauze placed over tegaderm and wrapped with edy wrap. Bolster removed from gluteal wound: saturated with urine and stool. Graft is macerated, looks okay. Xeroform and 12x12 gauze placed to graft, held in place with a #8 band net pant. Plan for dressing change every other day and when soiled. Will leave donor site dressing in place for 7 days. Once STSG is more sturdy, will remove rectal tube and vuong. 1 mg total of IV dilaudid given for dressing change and she tolerated it well. Moo Monique MD * Moo Monique MD - 08/04/2023 1206 EDT Acute Care Surgery Progress Note Service Date: 08/04/2023 Admit Date: 06/13/2023 23:23 Procedure(s): Nec fasc debridement x2 (OSH) Serial debridement, repair rectal injury (06/14) Additional debridement, washout (06/16) Additional debridement, washout, partial closure (06/18) Washout, wound vac change (06/25) Wound vac change (07/09) Split thickness skin graft (07/30) Chief Complaint: NSTI 24 Hour Events: No acute events overnight Subjective Doing well this morning. Sleeping, did not wake. Per nursing, no concerns overnight. Rectal tube with minimal stool staining onto dressing. Objective Vital Signs: Temp: [36.7 ??C (98.1 ??F)-37.2 ??C (98.9 ??F)] Heart Rate: [80 BPM-85 BPM] Pulse: -- Pulse From Oximetry: [74 BPM-85 BPM] Resp: [16-18] BP: (118-145)/(55-64) SpO2: [97 %-99 %] I/O: Intake/Output Summary (Last 24 hours) at 08/04/2023 1206 Last data filed at 08/04/2023 1032 Gross per 24 hour Intake 2920 ml Output 3350 ml Net -430 ml I&O By Type - 3 Shifts Including Current In: 2310 [P.O.:2220; Other:90] Out: 2500 [Urine:1700; Drains:800] Physical Exam: Gen: asleep during exam Resp: unlabored on room air Abd: soft, non-distended, non-tender : dressings over right buttock and right thigh with no strikethrough, rectal tube in place, Foleyin place Psych: appropriate mood and affect Labs: CBC: No results for input(s): WBC, RBC, HGB, HCT, MCV, MCH, MCHC, PLT, NEUTROABS, SEDRATE in the last 72 hours. BMP: No results for input(s): NA, K, CL, CO2, BUN, CREATININE, CALCIUM, CALCCA, CAION,MG, PHOS, LABALBU in the last 72 hours. Glucose: Glucose, POC Date/Time Value Ref Range Status 08/04/2023 07:51 194 (H) 70 - 100 mg/dL Final Assessment 52 y.o. female with a history of HTN and T2DM who presented as a transfer from [facility] on 06/12 with necrotizing fasciitis. S/p debridement x2 at OSH and s/p debridement at [facility] on 06/14.Post-operative bradycardic arrest x2 early in hospital course, suspected heart block vs vagal event. Recovered normal cardiac function, EP cards signed off. Had transferred to floor however on 07/02 required transfer to SICU for hypoxic respiratory failure secondary to atelectasis/mucous plugging. Intubated for bronchoscopy, now extubated and stable on nasal cannula. Doing well with respiratory therapy. Was undergoing local wound care and serial debridements, as well as pulmonary toilet. Wound site now grafted with split thickness skin graft on 07/30. Overall, continues to recover well from skin graft. Plan Multimodal pain control Maintain RLE dressings until 08/04 RT for airway clearance Q4H, Greta Consistent carbohydrate diet, Endocrine following, appreciate their assistance with DM management Rectal tube for wound hygiene Nystatin powder BID ordered to perianal/gluteal cleft skin Ensure to cycle balloon daily as per nursing/floor protocol Lasix 40mg PO daily Continue bedtime seroquel 25 mg qhs Encourage aggressive IS Labs every Saturday, Activity as tolerated, encourage physical therapy to work with her. Only precautions include no sliding/shearing forces on RLE wound and no sitting for prolonged periods of time. Okay to sit up for meals and while working with physical therapy, but minimize direct sitting pressure on graft for more than an hour at a time VTE prophylaxis: Pharmacologic Prophylaxis: Enoxaparin (Lovenox) 40 mg SQ daily Dispo: pending clinical course ISABELL NOLASCO MD 08/04/2023 12:06 Pager: [phone] Attestation: I performed or was present during the cooper or critical portions of the visit and participated in the management of the patient on 08/04/2023. I agree with the findings and plan of care documented in the resident's/fellow's note.No new complaints, states she's sore. Plan for dressing change tomorrow or Saturday. Moo Monique MD 08/04/2023 23:00 * Paulette Hoover - 08/03/2023 1216 EDT Acute Care Surgery Progress Note Service Date: 08/03/2023 Admit Date: 06/13/2023 23:23 Procedure(s): Nec fasc debridement x2 (OSH) Serial debridement, repair rectal injury (06/14) Additional debridement, washout (06/16) Additional debridement, washout, partial closure (06/18) Washout, wound vac change (06/25) Wound vac change (07/09) Split thickness skin graft (07/30) Chief Complaint: NSTI 24 Hour Events: No acute events Chest pain overnight, no ischemic changes on EKG Adjust the timing of medications including lidocaine patches, lorazepam Subjective States she is feeling well this morning. Pain is under okay control. Persistent pain in the left side of her chest, but relieved to hear that she is not having an acute heart event. Vuong and rectal tube working appropriately. No new or worsening concerns at this time. Objective Vital Signs: Temp: [36.6 ??C (97.8 ??F)-37 ??C (98.6 ??F)] Heart Rate: [79 BPM-83 BPM] Pulse: -- Pulse From Oximetry: [68 BPM-84 BPM] Resp: [16-22] BP: (102-151)/(50-83) SpO2: [97 %-100 %] I/O: Intake/Output Summary (Last 24 hours) at 08/03/2023 1216 Last data filed at 08/03/2023 1129 Gross per 24 hour Intake 2630 ml Output 3550 ml Net -920 ml I&O By Type - 3 Shifts Including Current In: 2150 [P.O.:1970; Other:180] Out: 3175 [Urine:1525; Drains:1650] Physical Exam: Gen: alert, awake, cooperative Resp: unlabored on room air Abd: soft, non-distended, non-tender : dressings over right buttock and right thigh with no strikethrough, rectal tube in place, Foleyin place Psych: appropriate mood and affect Labs: CBC: Recent Labs 08/01/23 0615 WBC 9.42 RBC 3.04* HGB 8.6* HCT 26.1* MCV 86 MCH 28.3 MCHC 33.0 PLT 355 NEUTROABS 6.23 BMP: Recent Labs 08/01/23 0615 NA 136 K 4.6 CL 101 CO2 21* BUN 18 CREATININE 0.54 CALCIUM 9.7 Glucose: Glucose, POC Date/Time Value Ref Range Status 08/03/2023 11:29 126 (H) 70 - 100 mg/dL Final Assessment 52 y.o. female with a history of HTN and T2DM who presented as a transfer from [facility] on 06/12 with necrotizing fasciitis. S/p debridement x2 at OSH and s/p debridement at [facility] on 06/14.Post-operative bradycardic arrest x2 early in hospital course, suspected heart block vs vagal event. Recovered normal cardiac function, EP cards signed off. Had transferred to floor however on 07/02 required transfer to SICU for hypoxic respiratory failure secondary to atelectasis/mucous plugging. Intubated for bronchoscopy, now extubated and stable on nasal cannula. Doing well with respiratory therapy. Was undergoing local wound care and serial debridements, as well as pulmonary toilet. Wound site now grafted with split thickness skin graft on 07/30. Overall, recovering well from skin graft. Plan Multimodal pain control Maintain RLE dressings until 08/04 RT for airway clearance Q4H, DuoNebs Consistent carbohydrate diet, Endocrine following, appreciate their assistance with DM management Rectal tube for wound hygiene Nystatin powder BID ordered to perianal/gluteal cleft skin Ensure to cycle balloon daily as per nursing/floor protocol Lasix 40mg PO daily Continue bedtime seroquel 25 mg qhs Encourage aggressive IS Labs every Saturday, Activity as tolerated, encourage physical therapy to work with her. Only precautions include no sliding/shearing forces on RLE wound and no sitting for prolonged periods of time. Okay to sit up for meals and while working with physical therapy, but minimize direct sitting pressure on graft for more than an hour at a time VTE prophylaxis: Pharmacologic Prophylaxis: Enoxaparin (Lovenox) 40 mg SQ daily Dispo: pending clinical course LOGAN OJEDA DO 08/03/2023 12:16 Pager: [phone] Attestation: I performed or was present during the cooper or critical portions of the visit and participated in the management of the patient on 08/03/2023. I agree with the findings and plan of care documented in the resident's/fellow's note. Paulette Hoover MD 08/03/2023 14:52 * Moo Monique MD - 2023 1519 EDT Acute Care Surgery Progress Note Service Date: 2023 Admit Date: 06/13/2023 23:23 Procedure(s): Nec fasc debridement x2 (OSH) Serial debridement, repair rectal injury (06/14) Additional debridement, washout (06/16) Additional debridement, washout, partial closure (06/18) Washout, wound vac change (06/25) Wound vac change (07/09) Split thickness skin graft (07/30) Chief Complaint: NSTI 24 Hour Events: Dressing saturated with urine Vaginal swab obtained for urethral discharge Vuong replaced Subjective Feeling okay this morning. Overnight, her rectal tube was compressed and leaking but now functioning appropriately. Tolerating diet. Pain under okay control. States she is being mindful of her skin graft site and working with physical therapy. Objective Vital Signs: Temp: [36.4 ??C (97.5 ??F)-37.1 ??C (98.8 ??F)] Heart Rate: [85 BPM] Pulse: [69] Pulse From Oximetry: [66 BPM-85 BPM] Resp: [17-18] BP: (110-142)/(53-65) SpO2: [97 %-99 %] I/O: Intake/Output Summary (Last 24 hours) at 2023 151 Last data filed at 2023 1345 Gross per 24 hour Intake 3030 ml Output 4625 ml Net -1595 ml I&O By Type - 3 Shifts Including Current In: 1830 [P.O.:1800; Other:30] Out: 3775 [Urine:1775; Drains:1999] Physical Exam: Gen: alert, awake, cooperative Resp: unlabored on room air Abd: soft, non-distended, non-tender : dressings over right buttock and right thigh with no strikethrough, rectal tube in place Psych: appropriate mood and affect Labs: CBC: Recent Labs 08/01/23 0615 WBC 9.42 RBC 3.04* HGB 8.6* HCT 26.1* MCV 86 MCH 28.3 MCHC 33.0 PLT 355 NEUTROABS 6.23 BMP: Recent Labs 08/01/23 0615 NA 136 K 4.6 CL 101 CO2 21* BUN 18 CREATININE 0.54 CALCIUM 9.7 Glucose: Glucose, POC Date/Time Value Ref Range Status 2023 11:42 171 (H) 70 - 100 mg/dL Final Assessment 52 y.o. female with a history of HTN and T2DM who presented as a transfer from [facility] on 06/12 with necrotizing fasciitis. S/p debridement x2 at OSH and s/p debridement at [facility] on 06/14.Post-operative bradycardic arrest x2 early in hospital course, suspected heart block vs vagal event. Recovered normal cardiac function, EP cards signed off. Had transferred to floor however on 07/02 required transfer to SICU for hypoxic respiratory failure secondary to atelectasis/mucous plugging. Intubated for bronchoscopy, now extubated and stable on nasal cannula. Doing well with respiratory therapy. Was undergoing local wound care and serial debridements, as well as pulmonary toilet. Wound site now grafted with split thickness skin graft on 07/30. Overall, recovering well from skin graft. Plan Multimodal pain control Maintain RLE dressings until 08/04 RT for airway clearance Q4H, Greta Consistent carbohydrate diet, Endocrine following, appreciate their assistance with DM management Rectal tube for wound hygiene Nystatin powder BID ordered to perianal/gluteal cleft skin Ensure to cycle balloon daily as per nursing/floor protocol Lasix 40mg PO daily Continue bedtime seroquel 25 mg qhs Encourage aggressive IS Labs every Saturday, Activity as tolerated, encourage physical therapy to work with her. Only precautions include no sliding/shearing forces on RLE wound and no sitting for prolonged periods of time. Okay to sit up for meals and while working with physical therapy, but minimize direct sitting pressure on graft for more than an hour at a time VTE prophylaxis: Pharmacologic Prophylaxis: Enoxaparin (Lovenox) 40 mg SQ daily Dispo: pending clinical course LOGAN OJEDA DO 2023 15:19 Pager: [phone] Attestation: I performed or was present during the cooper or critical portions of the visit and participated in the management of the patient on 2023. I agree with the findings and plan of care documented in the resident's/fellow's note. Moo Monique MD 2023 17:11 * Melinda Lassiter, PT - 2023 1421 EDT [facility] Acute Therapy [facility] Physical Therapy Contact Note Date of Service: 2023 Ms Browning was sleeping soundly at 0930 when PT attempted to see her. Per discussion with Nursing, ptrectal tube not functioning. Clarification from Dr Logan Ojeda post STSG activity as tolerated, no sliding, No sitting on graft for more than 4 hours at a time and avoid shearing Anticipate pt is ready from a strength and mobility perspective to try Leander Karthikdy for bed to chair transfer. PT will follow up next week. Encourage pt to sit edge of bed for meals with feet supported on foot stool Melinda Lassiter PT 2023 14:21 * Nabila English NP - 2023 1357 EDT Endocrine/Diabetes Follow Up/Progress Note Admit Date: 06/13/2023 Hospital day LOS: 50 days Date of Service: 2023 Reason for Following: T2DM Inpatient glycemic management, Necrotizing Fasciitis HPI: 52 y/o F with PMH of T2 DM, HTN, Anxiety/Depression, admitted via ER with R Gluteal Necrotizing Fasciitis 06/12, complicated by Post-operative bradycardic arrest x2 early in hospital course, suspected heart block vs vagal event. Recovered normal cardiac function, EP cards signed off and has hadpersistent respiratory complications. She has undergone serial washouts/debridements and wound vac placements. Now S/P split thickness wound graft on 07/30. Subjective: Still sore but more comfortable today (post op day #2). Ate all her breakfast. Diabetes History: Onset: ~ 10-15 yr ago Control: A1C 8.2 on 06/13 Complications: Peripheral Neuropathy, infected wound Home Regimen: On no meds at home Says previously she had taken insulin Tries to watch diet SBGM and Self Care: Stopped taking FS Current Diet: Regular (added Consistent Carb) NPO 07/30 Social Information: Single, Lives in [facility], has male partner. 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 Unsure of family history maybe grandparents w DM Regular Diabetes Provider: PCP ROS: No N/V No CP/SOB No fevers/chills Objective/Physical Exam: VS: BP: 139/62 Pulse: 69 Heart Rate: 85 BPM Resp: 18 Temp: 36.9 ??C (98.4 ??F) SpO2: 98 % O2 Flow Rate (L/min): 0 l/min O2 Device: None FIO2 %: 30 % Weight: Weight : 76.6 kg (168 lb 14.4 oz) Body mass index is 29.93 kg/m??. Food Intake: DIET REGULAR (added Consistent Carbohydrate) Activity:bedrest Exam: Resting in bed on Left side A&O Has Vuong cath w miquel urine, Rectal tube. Netting over R buttock and R thigh, keeping dressing in place, is clean, dry Has padded splint on L leg. Data Review: Labs: Recent Labs 07/31/23 0957 07/31/23 1230 07/31/23 1433 07/31/23 1806 07/31/23 2131 08/01/23 0407 08/01/23 0703 08/01/23 1124 08/01/23 1733 08/01/23 2207 08/02/23 0752 08/02/23 1142 GLUCOSEPOC 176* 178* 125* 144* 178* 153* 137* 169* 194* 178* 176* 171* Lab Results Component Value Date HGBA1C 8.2 (H) 06/14/2023 Lab Results Component Value Date SERGLU 132 (H) 08/01/2023 NA 136 08/01/2023 K 4.6 08/01/2023 CL 101 08/01/2023 CO2 21 (L) 08/01/2023 BUN 18 08/01/2023 CREATININE 0.54 08/01/2023 CALCIUM 9.7 08/01/2023 Assessment 52 y/o F with 10-15 yr H/O T2 DM, manages with dietary measures, A1C is uncontrolled. Has PMH of HTN, Anxiety/Depression, admitted via ER with R Gluteal Necrotizing Fasciitis 06/12, complicated by Post-operative bradycardic arrest x2 early in hospital course, suspected heart block vs vagal event. Recovered normal cardiac function, EP cards signed off and has had persistent respiratory complications. She has undergone serial washouts/debridements and wound vac placements. S/P Split Thickness Skin Graft to Perineum 07/30. Renal function WNL. Now S/P skin grafting of R perineal area on 07/30. Feeling better today, appetite is picking up. Blood sugars mildly elevated. Will adjust insulin a bit. Plan: 1. Lantus: Increase from 25 to 28 units subcutaneous daily in AM (First dose this AM) 2. Aspart: Increase from 7 to 9 units if patient eats entire meal, and 4 to 5 units if patient eats50% of meal, Hold if NPO 3. Aspart SSI: for weight 76-100 kg w meals 4. Aspart: 5 units at HS if BG > 250 and recheck BG at midnight 5. FS: AC/HS/PRN 6. Pt will benefit from Diabetes education as likely will need to discharge on insulin (Seen by Maite Hua RN, CDE 07/14 amd 07/21). Also being followed regularly by RD 7. Will continue to follow with you. Discharge Plan: TBD. Consider introduction of non-insulin agents (GLP-1) as adjunct therapy to insulin, once closer to discharge. Less inclined to begin SGLT-2 unless Gluteal wound completely healed.Consider CGM Nabila English NP 2023 13:58 * Isabell Nolasco MD - 08/01/2023 2468 EDT Acute Care Surgery Progress Note Service Date: 08/01/2023 Admit Date: 06/13/2023 23:23 Procedure(s): Nec fasc debridement x2 (OSH) Serial debridement, repair rectal injury (06/14) Additional debridement, washout (06/16) Additional debridement, washout, partial closure (06/18) Washout, wound vac change (06/25) Wound vac change (07/09) Split thickness skin graft (07/30) Chief Complaint: NSTI 24 Hour Events: OR for split thickness skin graft Subjective Feeling alright this morning. Endorsing pain over her right buttock and thigh that wears off because of how spaced out her opiate dosing is. No drainage from her rectal tube onto her dressing. Objective Vital Signs: Temp: [36.1 ??C (97 ??F)-37.1 ??C (98.8 ??F)] Heart Rate: [73 BPM-96 BPM] Pulse: [79-89] Pulse From Oximetry: [73 BPM-95 BPM] Resp: [12-22] BP: (105-188)/(53-81) SpO2: [97 %-100 %] I/O: Intake/Output Summary (Last 24 hours) at 08/01/2023 1648 Last data filed at 08/01/2023 1600 Gross per 24 hour Intake 1418 ml Output 2125 ml Net -707 ml I&O By Type - 3 Shifts Including Current In: 1178 [P.O.:1078; Other:100] Out: 1375 [Urine:625; Drains:750] Physical Exam: Gen: alert, awake, cooperative Resp: unlabored on room air Abd: soft, non-distended, non-tender : dressings over right buttock and right thigh with no strikethrough, rectal tube in place Psych: appropriate mood and affect Labs: CBC: Recent Labs 08/01/23 0615 WBC 9.42 RBC 3.04* HGB 8.6* HCT 26.1* MCV 86 MCH 28.3 MCHC 33.0 PLT 355 NEUTROABS 6.23 BMP: Recent Labs 08/01/23 0615 NA 136 K 4.6 CL 101 CO2 21* BUN 18 CREATININE 0.54 CALCIUM 9.7 Glucose: Glucose, POC Date/Time Value Ref Range Status 08/01/2023 11:24 169 (H) 70 - 100 mg/dL Final Assessment 52 y.o. female with a history of HTN and T2DM who presented as a transfer from [facility] on 06/12 with necrotizing fasciitis. S/p debridement x2 at OSH and s/p debridement at [facility] on 06/14.Post-operative bradycardic arrest x2 early in hospital course, suspected heart block vs vagal event. Recovered normal cardiac function, EP cards signed off. Had transferred to floor however on 07/02 required transfer to SICU for hypoxic respiratory failure secondary to atelectasis/mucous plugging. Intubated for bronchoscopy, now extubated and stable on nasal cannula. Doing well with respiratory therapy. Was undergoing local wound care and serial debridements, as well as pulmonary toilet. Wound site now grafted with split thickness skin graft on 07/30. Progressing appropriately. Plan to keep dressing until 08/04. Plan Multimodal pain control - increased frequency of oxycodone to q3h Maintain RLE dressings until 08/04 RT for airway clearance Q4H, Greta Consistent carbohydrate diet, Endocrine following, appreciate their assistance with DM management Rectal tube for wound hygiene Nystatin powder BID ordered to perianal/gluteal cleft skin Ensure to cycle balloon daily as per nursing/floor protocol Lasix 40mg PO daily Continue bedtime seroquel 25 mg qhs Encourage aggressive IS Labs every Saturday, VTE prophylaxis: Pharmacologic Prophylaxis: Enoxaparin (Lovenox) 40 mg SQ daily Dispo: pending clinical course ISABELL NOLASCO MD 08/01/2023 16:48 Pager: [phone] * Ashleigh Stout, RD - 08/01/2023 1177 EDT Images from the original note were not included. Nutrition Assessment Note: Reassessment Admission date: 06/13/2023 23:23 BACKGROUND DATA Della Browning is a 52 y.o. female admitted for Necrotizing fasciitis ([facility]) S/p debridement x2 at OSH and s/p debridement at [facility] on 06/14. Post- operative bradycardic arrest x2 early in hospital course, suspected heart block vs vagal event. Recovered normal cardiac function. 07/02 required transfer to SICU for hypoxic respiratory failure secondary to atelectasis/mucous plugging. Intubated for bronchoscopy, now extubated and stable on nasal cannula. Doing well with respiratory therapy. Undergoing local wound care and serial debridements, as well as pulmonary toilet. PMH: HTN, T2DM. -Tiff Aviles MD 07/23/23 Subjective: Pt reports eating is going well and is ordering protein foods for healing. States she has meat loafordered for lunch and is drinking the Boost glucose control w/ every meal. She had no follow up nutrition questions or concerns today. Averaging 75-100% meals TID. Current Nutrition Orders: Regular - consistent carbohydrate Menu assist Boost Glucose Control TID Objective Nutrition Focused Physical Exam Subcutaneous Fat Assessment Orbital Region: Well-nourished (06/14/23 1520) Cheek Region: Well-nourished (06/14/23 1520) Upper Arm Region: Well-nourished (06/14/23 1520) Midaxillary Line: Not assessed (06/14/23 1520) Muscle Mass Assessment Congregation Region: Well-nourished (06/14/23 1520) Clavicle Region: Well-nourished (06/14/23 1520) Shoulder/Acromion/Clavicle Region: Well-nourished (06/14/23 1520) Scapula Region: Not assessed (06/14/23 1520) Hand Region: Not assessed (06/14/23 1520) Thigh/Patellar Region: Not assessed (06/14/23 1520) Calf Region: Not assessed (06/14/23 1520) NFPE Assessment Summary of Fat Wasting: No significant evidence of wasting (06/14/23 1520) Summary of Muscle Wasting: No significant evidence of wasting (06/14/23 1520) Physical Findings: Net IO Since Admission: -68,387.28 mL [08/01/23 1250] Digestive Systems: Last BM: 07/30 Dentition: Teeth: Missing teeth per flowsheets Edema: trace RLE/LLE Skin: dry, edematous Allergies on file: Apple juice, Aspirin, Cymbalta [duloxetine], Lyrica [pregabalin], and Penicillins Anthropometrics: Height: 160 cm (62.99) BMI: Body mass index is 29.93 kg/m??. Weight Change: wt down about 4 kg since admission (4.6%) over 1x month, not clinically significant Weights Filed This Admission 06/14/23 0000 06/19/23 0900 06/30/23 0605 07/11/23 1728 Weight: 86.2 kg (190 lb) 86.2 kg (190 lb) 92.2 kg (203 lb 4.2 oz) 82.6 kg (182 lb 1.6 oz) 07/15/23 1240 07/17/23 0600 07/31/23 1029 Weight: 86.2 kg (190 lb 0.6 oz) 82.8 kg (182 lb 8.7 oz) 76.6 kg (168 lb 14.4 oz) Wt Readings from Last 6 Encounters: 07/31/23 76.6 kg (168 lb 14.4 oz) 22 lbs weight loss this admission, this is 11.5% loss over past 49 days, Pertinent Medications: Current Facility-Administered Medications Medication Route Frequency acetaminophen (TYLENOL) solution unit dose cup 995 mg oral Q6H albuterol inhaler 180 mcg inhalation Q4H PRN alteplase (CATHFLO ACTIVASE) injection 2 mg intercatheter PRN amLODIPine (NORVASC) tablet 10 mg oral DAILY cloNIDine (CATAPRES) 0.2 mg/24 hr patch 1 Patch transdermal WEEKLY dextrose 5 %-0.45 % sodium chloride infusion intravenous CONTINUOUS dextrose 50 % solution 12.5 g intravenous PRN docusate sodium (COLACE) capsule 200 mg oral BID enoxaparin (LOVENOX) injection 40 mg subcutaneous DAILY furosemide (LASIX) tablet 40 mg oral DAILY glucagon injection 1 mg intramuscular PRN insulin aspart U-100 (NOVOLOG FLEXPEN) injection 4-7 Units subcutaneous TID WC insulin aspart U-100 (NOVOLOG FLEXPEN) injection subcutaneous TID WC insulin aspart U-100 (NOVOLOG FLEXPEN) injection subcutaneous QHS insulin glargine injection pen 25 Units subcutaneous DAILY L.A. INSULIN ipratropium-albuteroL (DUONEB) 0.5 mg-3 mg(2.5 mg base)/3 mL nebulizer solution 3 mL nebulization Q4H PRN lactulose (CHRONULAC) 20 gram/30 mL solution 45 mL oral Q4H lidocaine 5 % (LIDODERM) patch 2 Patch transdermal QHS LORazepam (ATIVAN) tablet 0.5 mg oral BID magnesium hydroxide (MILK OF MAGNESIA) 400 mg/5 mL suspension 30 mL oral DAILY melatonin tablet 6 mg oral QHS methocarbamoL (ROBAXIN) tablet 1,000 mg oral QID gopvfuvy-vlq-rprp fum-folic ac 7.5 mg iron-400 mcg tablet 1 Tablet oral DAILY naloxone (NARCAN) injection 0.1 mg intravenous PRN nicotine (NICODERM CQ) 21 mg/24 hr patch 1 Patch transdermal DAILY oxyCODONE (ROXICODONE) immediate release tablet 5 mg oral Q3H PRN Or oxyCODONE (ROXICODONE) immediate release tablet 10 mg oral Q3H PRN QUEtiapine (SEROQUEL) tablet 25 mg oral QHS senna (SENOKOT) tablet 2 Tablet oral QHS sodium chloride soluble tablet 1,000 mg oral TID thiamine (VITAMIN B1) tablet 100 mg oral DAILY Pertinent Labs: Lab Results Component Value Date WBC 9.42 08/01/2023 RBC 3.04 (L) 08/01/2023 HGB 8.6 (L) 08/01/2023 HCT 26.1 (L) 08/01/2023 MCV 86 08/01/2023 MCH 28.3 08/01/2023 PLT 355 08/01/2023 NA 136 08/01/2023 K 4.6 08/01/2023 CL 101 08/01/2023 CO2 21 (L) 08/01/2023 BUN 18 08/01/2023 CREATININE 0.54 08/01/2023 CALCIUM 9.7 08/01/2023 MG 1.7 07/22/2023 PHOS 6.5 (H) 07/22/2023 VITD 22 (L) 07/25/2023 Lab Results Component Value Date/Time HGBA1C 8.2 (H) 06/14/2023 04:55 GLUCOSEPOC 169 (H) 08/01/2023 11:24 GLUCOSEPOC 137 (H) 08/01/2023 07:03 GLUCOSEPOC 153 (H) 08/01/2023 04:07 GLUCOSEPOC 178 (H) 07/31/2023 21:31 GLUCOSEPOC 144 (H) 07/31/2023 18:06 Lab Results Component Value Date/Time TRIG 335 (H) 06/18/2023 04:32 Estimated Nutrition Needs: MSJ x1.3 for wound healing (using 76.6 kg) = 1752 kcals/day 1.3-1.5 g/kg protein (using 76.6 kg IBW) =100-114 g protein/day Estimated Nutrition Intake: 100% meals TID + Boost GC TID ASSESSMENT: Pt is eating well from 3 meals and 3 boost glucose control supplements daily. She did not have any follow up questions today regarding consistent carb diet. Knows to have good protein intake for wound healing. Pt. with clinically significant weight loss of 11% this admission, weight loss attributed to acute illness and frequent NPO OR. Also some loss of muscle mass d/t immobility. Continue to trend weight with goal of stable weight. at this time. Continue MVM to assure vitamin needs are met consistently. Suggest supplemental vitamin D to address low vitamin D level. OK to d/c B1, likely now replete following > 30 days supplementation. Blood glucose mostly trends in 150-170s, similar to last RD visit. Nutrition Risk Level: Moderate (2) MEDICAL NUTRITION THERAPY - UPDATED PLAN Discontinue thiamin supplement Order p.o. supplement: 2000 International Units vitamin D daily Weekly weight Continue consistent carb diet order w/ glucose control supplements Monitor wt trends, BMs, labs, I/Os, and skin Ashleigh Stout RD, CD, CNSC (Call PAS or use [employer] 1 Web [email or web address]) to page RD covering this unit) * Nabila English NP - 08/01/2023 1048 EDT Endocrine/Diabetes Follow Up/Progress Note Admit Date: 06/13/2023 Hospital day LOS: 49 days Date of Service: 08/01/2023 Reason for Following: T2DM Inpatient glycemic management, Necrotizing Fasciitis HPI: 52 y/o F with PMH of T2 DM, HTN, Anxiety/Depression, admitted via ER with R Gluteal Necrotizing Fasciitis 06/12, complicated by Post-operative bradycardic arrest x2 early in hospital course, suspected heart block vs vagal event. Recovered normal cardiac function, EP cards signed off and has hadpersistent respiratory complications. She has undergone serial washouts/debridements and wound vac placements. Now S/P split thickness wound graft on 07/30. Subjective: Uncomfortable post op day #1, getting repositioned. Ate all her breakfast. Diabetes History: Onset: ~ 10-15 yr ago Control: A1C 8.2 on 06/13 Complications: Peripheral Neuropathy, infected wound Home Regimen: On no meds at home Says previously she had taken insulin Tries to watch diet SBGM and Self Care: Stopped taking FS Current Diet: Regular (added Consistent Carb) NPO 07/30 Social Information: Single, Lives in [facility], has male partner. 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 Unsure of family history maybe grandparents w DM Regular Diabetes Provider: PCP ROS: No N/V No CP/SOB No fevers/chills Objective/Physical Exam: VS: BP: 117/60 Pulse: 79 Heart Rate: 76 BPM Resp: 16 Temp: 36.9 ??C (98.4 ??F) SpO2: 99 % O2 Flow Rate (L/min): 1 l/min O2 Device: Nasal cannula FIO2 %: 30 % Weight: Weight : 76.6 kg (168 lb 14.4 oz) Body mass index is 29.93 kg/m??. Food Intake: DIET REGULAR (added Consistent Carbohydrate) Activity:bedrest Exam: Resting in bed on Left side A&O Has Vuong cath w miquel urine, Rectal tube, and Wound vac to right buttock Netting over R buttock and R thigh, keeping dressing in place. Dressing, clean, dry Data Review: Labs: Recent Labs 07/30/23 0822 07/30/23 1240 07/30/23 1701 07/30/23 2120 07/31/23 0848 07/31/23 0957 07/31/23 1230 07/31/23 1433 07/31/23 1806 07/31/23 2131 08/01/23 0407 08/01/23 0703 GLUCOSEPOC 177* 183* 176* 187* 151* 176* 178* 125* 144* 178* 153* 137* Lab Results Component Value Date HGBA1C 8.2 (H) 06/14/2023 Lab Results Component Value Date SERGLU 132 (H) 08/01/2023 NA 136 08/01/2023 K 4.6 08/01/2023 CL 101 08/01/2023 CO2 21 (L) 08/01/2023 BUN 18 08/01/2023 CREATININE 0.54 08/01/2023 CALCIUM 9.7 08/01/2023 Assessment 52 y/o F with 10-15 yr H/O T2 DM, manages with dietary measures, A1C is uncontrolled. Has PMH of HTN, Anxiety/Depression, admitted via ER with R Gluteal Necrotizing Fasciitis 06/12, complicated by Post-operative bradycardic arrest x2 early in hospital course, suspected heart block vs vagal event. Recovered normal cardiac function, EP cards signed off and has had persistent respiratory complications. She has undergone serial washouts/debridements and wound vac placements. S/P Split Thickness Skin Graft to Perineum 07/30. Renal function WNL. Now S/P skin grafting of R perineal area on 07/30. She had little to eat last evening. Mealtime Aspart orders are in place. Ate a good breakfast today. Lantus is currently at 25 units daily (half of typical 50 units daily). Blood sugars stable this AM, will continue 25 units of Lantus today titrate back up as indicated by blood sugars. Plan: 1. Lantus: 25 units subcutaneous daily in AM 2. Aspart: 7 units if patient eats entire meal, and 4 units if patient eats 50% of meal, Hold if NPO 3. Aspart SSI: for weight 76-100 kg w meals 4. Aspart: 5 units at HS if BG > 250 and recheck BG at midnight 5. FS: AC/HS/PRN 6. Pt will benefit from Diabetes education as likely will need to discharge on insulin 7. Will continue to follow with you. Discharge Plan: TBD. Consider introduction of non-insulin agents (GLP-1) as adjunct therapy to insulin, once closer to discharge. Less inclined to begin SGLT-2 unless Gluteal wound completely healed.Consider CGM Nabila English NP 08/01/2023 10:48 * Savanah Skinner MD - 07/31/[id number] EDT POST-OP CHECK PROCEDURE: Split thickness skin graft to perineum SUBJECTIVE: Doing well post-op. Feeling sore over operative sites but well controlled with medications. Had some coffee/juice and tolerated w/o n/v though PO intake otherwise minimal. Denies chest pain/SOB. In good spirits otherwise. All questions answered. OBJECTIVE: VS: Blood pressure (!) 150/68, pulse 89, temperature 36.6 ??C (97.9 ??F), temperature source Oral, resp. rate 16, height 160 cm (62.99), weight 76.6 kg (168 lb 14.4 oz), SpO2 99%. Gen: NAD, AOx3 Pulm: CTAB CV: RRR Abd: Soft, non-tender, non-distended Ext: WWP Incision/Dressing: graft site dressing c/d/I and wrapped in band-netting. Donor site wrapped in acebandage c/d/I. ASSESSMENT/PLAN: 52 y.o. female POD#0 s/p above procedure. Recovering appropriately. - dressings to remain in place until 08/04 - multimodal pain control as ordered - Regular diet - continue mIVF until taking adequate PO intake - DVT ppx: lovenox 40mg daily SAVANAH SKINNER MD 07/31/23 22:03 [facility] Service Pager #[phone] * Quique Berger RN - [id number] EDT FOUR EYES SKIN ASSESSMENT Four Eyes skin assessment was performed on admission to the unit by Quique Berger RN and Elaine Turner RN. . Patient has the following devices at the time of this assessment: Peripheral IV, Vuong, and Rectal tube. Device related pressure injury present? No Areas of concern: Fill in detail for areas of concern [] Occiput [] Nose [] Ear [] Lip [] Scapula [] Spinous process [] Shoulder [] Elbow [] Iliac crest [] Sacrum/coccyx [] Ischial tuberosity [] Trochanter [] Knee [] Malleolus [] Heel [] Toe [x] Other: Donor bandage right thigh, skin graft on right buttock Last Jerson Score: 17 Instructions: Add LDA for any identified wounds Add [place] image for any suspected PI or non surgical wounds Order wound consult if suspected PI identified If Jerson is < or = to 16, initiate Pressure Injury Prevention Bundle ([id number]). 07/31/2023 20:19 * Elsa Beckford OT - 07/31/2023 1450 EDT [facility] Acute [facility] Occupational Therapy Contact Note Date of Service: 07/31/2023 Patient is in the OR for STSG. OT will follow-up as appropriate. Elsa Beckford OT, 07/31/2023, 14:50 * Nabila English NP - 07/31/2023 1255 EDT Endocrine/Diabetes Follow Up/Progress Note Admit Date: 06/13/2023 Hospital day LOS: 48 days Date of Service: 07/31/2023 Reason for Following: T2DM Inpatient glycemic management, Necrotizing Fasciitis HPI: 52 y/o F with PMH of T2 DM, HTN, Anxiety/Depression, admitted via ER with R Gluteal Necrotizing Fasciitis 06/12, complicated by Post-operative bradycardic arrest x2 early in hospital course, suspected heart block vs vagal event. Recovered normal cardiac function, EP cards signed off and has hadpersistent respiratory complications. She has undergone serial washouts/debridements and wound vac placements, Subjective: Her nurse reports Pt is scheduled for surgery in early afternoon. Pt sleeping and awakes when spoken to Diabetes History: Onset: ~ 10-15 yr ago Control: A1C 8.2 on 06/13 Complications: Peripheral Neuropathy, infected wound Home Regimen: On no meds at home Says previously she had taken insulin Tries to watch diet SBGM and Self Care: Stopped taking FS Current Diet: Regular (added Consistent Carb) NPO 07/30 Social Information: Single, Lives in [facility], has male partner. 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 Unsure of family history maybe grandparents w DM Regular Diabetes Provider: PCP ROS: No N/V No CP/SOB No fevers/chills Objective/Physical Exam: VS: BP: (!) 149/75 (RN Notifed) Pulse: 80 Heart Rate: 79 BPM Resp: 18 Temp: 36.7 ??C (98 ??F) SpO2: 100 % O2 Flow Rate (L/min): 0 l/min O2 Device: None FIO2 %: 30 % Weight: Weight : 76.6 kg (168 lb 14.4 oz) Body mass index is 29.93 kg/m??. Food Intake: DIET NPO AFTER MIDNIGHT Activity:bedrest Exam: Resting in bed on left side A&O Has Vuong cath w miquel urine, Rectal tube, and Wound vac to right buttock Data Review: Labs: Recent Labs 07/28/23 2147 07/29/23 0711 07/29/23 1120 07/29/23 1813 07/29/23 2014 07/30/23 0822 07/30/23 1240 07/30/23 1701 07/30/23 2120 07/31/23 0848 07/31/23 0957 07/31/23 1230 GLUCOSEPOC 159* 184* 173* 188* 166* 177* 183* 176* 187* 151* 176* 178* Lab Results Component Value Date HGBA1C 8.2 (H) 06/14/2023 Lab Results Component Value Date SERGLU 218 (H) 07/29/2023 NA 130 (L) 07/29/2023 K 4.3 07/29/2023 CL 100 07/29/2023 CO2 17 (L) 07/29/2023 BUN 20 07/29/2023 CREATININE 0.45 (L) 07/29/2023 CALCIUM 9.5 07/29/2023 Assessment 52 y/o F with 10-15 yr H/O T2 DM, manages with dietary measures, A1C is uncontrolled. Has PMH of HTN, Anxiety/Depression, admitted via ER with R Gluteal Necrotizing Fasciitis 06/12, complicated by Post-operative bradycardic arrest x2 early in hospital course, suspected heart block vs vagal event. Recovered normal cardiac function, EP cards signed off and has had persistent respiratory complications. She has undergone serial washouts/debridements and wound vac placements. Renal function WNL. Pt NPO today, Plan is to go for Gluteal skin graft this afternoon. Will lower Lantus by 50% anticipating being NPO for large majority of the day. Aspart SSI changed to Q 6hr while NPO Plan: 1. Lantus: Today, lowered to 25 units (NPO) and return to 50 units subcutaneous tomorrow. 2. Aspart: Once eating, restart 7 units if patient eats entire meal, and 4 units if patient eats 50% of meal, Hold if NPO 3. Aspart SSI: Dosing regimen weight between 76-100 kg Every 6 hr while NPO BG Units 66-140 0 141-180 2 181-210 3 211-250 5 251-299 7 > 299 11 4. Once eating, restart Aspart: 5 units at HS if BG > 250 and recheck BG at midnight 5. FS: Q 6hr return to AC/HS/PRN once eating 6. Pt will benefit from Diabetes education as likely will need to discharge on insulin 7. Will continue to follow with you. Discharge Plan: TBD. Consider introduction of non-insulin agents (GLP-1) as adjunct therapy to insulin, once closer to discharge. Less inclined to begin SGLT-2 unless Gluteal wound completely healed.Consider CGM Nabila English NP 07/31/2023 12:55 * Melinda Lassiter, PT - 07/31/2023 0810 EDT [facility] Acute Therapy [facility] Physical Therapy Contact Note Date of Service: 07/31/2023 PT has been following pt; Per chart, she is scheduled for STSG surgery today. PT will follow up post op. Anticipate she will need subacute rehab when medically ready for discharge Melinda Lassiter PT 07/31/2023 8:10 * Moo Mnoique MD - 07/31/2023 0651 EDT Acute Care Surgery Progress Note Service Date: 07/31/2023 Admit Date: 06/13/2023 23:23 Procedure(s): Nec fasc debridement x2 (OSH) Serial debridement, repair rectal injury (06/14) Additional debridement, washout (06/16) Additional debridement, washout, partial closure (06/18) Washout, wound vac change (06/25) Wound vac change (07/09) Chief Complaint: NSTI 24 Hour Events: -No acute events Subjective Feeling okay today. No issues with wound VAC overnight. Pain under good control. Feels like she has to poop and is getting backed up. Objective Vital Signs: Temp: [36.6 ??C (97.9 ??F)-36.8 ??C (98.2 ??F)] Heart Rate: [75 BPM-86 BPM] Pulse: [80] Pulse From Oximetry: [72 BPM-86 BPM] Resp: [16-20] BP: (120-148)/(60-70) SpO2: [98 %-100 %] I/O: Intake/Output Summary (Last 24 hours) at 07/31/2023 0651 Last data filed at 07/31/2023 0616 Gross per 24 hour Intake 1200 ml Output 3650 ml Net -2450 ml I&O By Type - 3 Shifts Including Current In: 1200 [P.O.:1160; Other:40] Out: 3650 [Urine:3300; Drains:350] Physical Exam: Gen: resting, NAD Resp: unlabored on room air Abd: soft, non-distended, non-tender : Wound vac in position holding suction, serosanguinous output, rectal tube in place Psych: appropriate mood and affect Labs: CBC: Recent Labs 07/29/23 0750 WBC 6.95 RBC 3.02* HGB 8.5* HCT 25.0* MCV 83 MCH 28.1 MCHC 34.0 PLT 337 NEUTROABS 3.76 BMP: Recent Labs 07/29/23 0750 NA 130* K 4.3 CL 100 CO2 17* BUN 20 CREATININE 0.45* CALCIUM 9.5 Glucose: Glucose, POC Date/Time Value Ref Range Status 07/30/2023 21:20 187 (H) 70 - 100 mg/dL Final Assessment 52 y.o. female with a history of HTN and T2DM who presented as a transfer from [facility] on 06/12 with necrotizing fasciitis. S/p debridement x2 at OSH and s/p debridement at [facility] on 06/14.Post-operative bradycardic arrest x2 early in hospital course, suspected heart block vs vagal event. Recovered normal cardiac function, EP cards signed off. Had transferred to floor however on 07/02 required transfer to SICU for hypoxic respiratory failure secondary to atelectasis/mucous plugging. Intubated for bronchoscopy, now extubated and stable on nasal cannula. Doing well with respiratory therapy. Undergoing local wound care and serial debridements, as well as pulmonary toilet. Wound site now appropriate for grafting. Plan for OR today Plan OR today for skin graft Booked and consented N.p.o. Multimodal pain control - Scheduled Tylenol and ativan RT for airway clearance Q4H, DuoNebs Consistent carbohydrate diet, Endocrine following, appreciate their assistance with DM management No abx for skin infection due to adequate source control Rectal tube for wound hygiene Nystatin powder BID ordered to perianal/gluteal cleft skin Ensure to cycle balloon daily as per nursing/floor protocol Lasix 40mg PO daily Continue bedtime seroquel 25 mg qhs Encourage aggressive I-S Labs every Saturday, VTE prophylaxis: Pharmacologic Prophylaxis: Enoxaparin (Lovenox) 40 mg SQ daily Dispo: pending clinical course DANA MINER MD 07/31/2023 6:51 Pager: [phone] Attestation: I performed or was present during the cooper or critical portions of the visit and participated in the management of the patient on 07/31/2023. I agree with the findings and plan of care documented in the resident's/fellow's note.Plan for OR today for STSG when OR available. Moo Monique MD 07/31/2023 22:02 * Moo Monique MD - 07/30/2023 3608 EDT Acute Care Surgery Progress Note Service Date: 07/30/2023 Admit Date: 06/13/2023 23:23 Procedure(s): Nec fasc debridement x2 (OSH) Serial debridement, repair rectal injury (06/14) Additional debridement, washout (06/16) Additional debridement, washout, partial closure (06/18) Washout, wound vac change (06/25) Wound vac change (07/09) Chief Complaint: NSTI 24 Hour Events: -No acute events Subjective States he is feeling fine this morning. Has been n.p.o. since midnight in anticipation of potentialgraft surgery today. No issues with wound VAC overnight. Pain under good control. No new or worsening concerns overall. Objective Vital Signs: Temp: [36.6 ??C (97.9 ??F)-36.9 ??C (98.4 ??F)] Heart Rate: [78 BPM-82 BPM] Pulse: [80] Pulse From Oximetry: [74 BPM-83 BPM] Resp: [18-20] BP: (120-155)/(57-120) SpO2: [96 %-99 %] I/O: Intake/Output Summary (Last 24 hours) at 07/30/2023 1228 Last data filed at 07/30/2023 1100 Gross per 24 hour Intake 1480 ml Output 3700 ml Net -2220 ml I&O By Type - 3 Shifts Including Current In: 1480 [P.O.:1440; Other:40] Out: 3700 [Urine:3300; Drains:400] Physical Exam: Gen: resting, NAD Resp: unlabored on room air : Wound vac in position holding suction, serosanguinous output, rectal tube in place Psych: appropriate mood and affect Labs: CBC: Recent Labs 07/29/23 0750 WBC 6.95 RBC 3.02* HGB 8.5* HCT 25.0* MCV 83 MCH 28.1 MCHC 34.0 PLT 337 NEUTROABS 3.76 BMP: Recent Labs 07/29/23 0750 NA 130* K 4.3 CL 100 CO2 17* BUN 20 CREATININE 0.45* CALCIUM 9.5 Glucose: Glucose, POC Date/Time Value Ref Range Status 07/30/2023 08:22 177 (H) 70 - 100 mg/dL Final Assessment 52 y.o. female with a history of HTN and T2DM who presented as a transfer from [facility] on 06/12 with necrotizing fasciitis. S/p debridement x2 at OSH and s/p debridement at [facility] on 06/14.Post-operative bradycardic arrest x2 early in hospital course, suspected heart block vs vagal event. Recovered normal cardiac function, EP cards signed off. Had transferred to floor however on 07/02 required transfer to SICU for hypoxic respiratory failure secondary to atelectasis/mucous plugging. Intubated for bronchoscopy, now extubated and stable on nasal cannula. Doing well with respiratory therapy. Undergoing local wound care and serial debridements, as well as pulmonary toilet. Wound site now appropriate for grafting. Was initially scheduled for today, but bumped due to OR availability. Plan Add-on the OR tomorrow for skin graft Booked and consented N.p.o. midnight Multimodal pain control - Scheduled Tylenol and ativan RT for airway clearance Q4H, DuoNebs Consistent carbohydrate diet, Endocrine following, appreciate their assistance with DM management No abx for skin infection due to adequate source control Rectal tube for wound hygiene Nystatin powder BID ordered to perianal/gluteal cleft skin Ensure to cycle balloon daily as per nursing/floor protocol Lasix 40mg PO daily Continue bedtime seroquel 25 mg qhs Encourage aggressive I-S Labs every Saturday, VTE prophylaxis: Pharmacologic Prophylaxis: Enoxaparin (Lovenox) 40 mg SQ daily Dispo: pending clinical course LOGAN OJEDA DO, PGY1 07/30/2023 12:28 Attestation: I performed or was present during the cooper or critical portions of the visit and participated in the management of the patient on 07/30/2023. I agree with the findings and plan of care documented in the resident's/fellow's note. Moo Monique MD 07/30/2023 16:23 * Carmen Vernon NP - 07/30/2023 1101 EDT Endocrine/Diabetes Follow Up/Progress Note Admit Date: 06/13/2023 Hospital day LOS: 47 days Date of Service: 07/30/2023 Reason for Following: T2DM Inpatient glycemic management, Necrotizing Fasciitis HPI: 52 y/o F with PMH of T2 DM, HTN, Anxiety/Depression, admitted via ER with R Gluteal Necrotizing Fasciitis 06/12, complicated by Post-operative bradycardic arrest x2 early in hospital course, suspected heart block vs vagal event. Recovered normal cardiac function, EP cards signed off and has hadpersistent respiratory complications. She has undergone serial washouts/debridements and wound vac placements, nearing evaluation for skin graft viability per surgical note. Subjective: originally was NPO for surgery today but got bumped no plan in place yet for when skin graft surgery will happen. Laying in bed, has eaten breakfast. Diabetes History: Onset: ~ 10-15 yr ago Control: A1C 8.2 on 06/13 Complications: Peripheral Neuropathy, infected wound Home Regimen: On no meds at home Says previously she had taken insulin Tries to watch diet SBGM and Self Care: Stopped taking FS Current Diet: Regular (added Consistent Carb) Social Information: Single, Lives in [facility], has male partner. 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 Unsure of family history maybe grandparents w DM Regular Diabetes Provider: PCP ROS: No N/V No CP/SOB No fevers/chills Objective/Physical Exam: VS: BP: 128/66 Pulse: 80 Heart Rate: 82 BPM Resp: 20 Temp: 36.6 ??C (97.9 ??F) SpO2: 99 % O2 Flow Rate (L/min): 0 l/min O2 Device: None FIO2 %: 30 % Weight: Weight : 82.8 kg (182 lb 8.7 oz) Body mass index is 32.34 kg/m??. Food Intake: DIET REGULAR Activity:bedrest Exam: Resting in bed on left side Talkative A&O Rectal tube and wound vac to right buttock in place Data Review: Labs: Recent Labs 07/27/23 1148 07/27/23 1751 07/27/23 2156 07/28/23 0731 07/28/23 1149 07/28/23 1803 07/28/23 2147 07/29/23 0711 07/29/23 1120 07/29/23 1813 07/29/23201307/30/23 0822 GLUCOSEPOC 118* 165* 149* 127* 129* 139* 159* 184* 173* 188* 166* 177* Lab Results Component Value Date HGBA1C 8.2 (H) 06/14/2023 Lab Results Component Value Date SERGLU 218 (H) 07/29/2023 NA 130 (L) 07/29/2023 K 4.3 07/29/2023 CL 100 07/29/2023 CO2 17 (L) 07/29/2023 BUN 20 07/29/2023 CREATININE 0.45 (L) 07/29/2023 CALCIUM 9.5 07/29/2023 Assessment 52 y/o F with 10-15 yr H/O T2 DM, manages with dietary measures, A1C is uncontrolled. Has PMH of HTN, Anxiety/Depression, admitted via ER with R Gluteal Necrotizing Fasciitis 06/12, complicated by Post-operative bradycardic arrest x2 early in hospital course, suspected heart block vs vagal event. Recovered normal cardiac function, EP cards signed off and has had persistent respiratory complications. She has undergone serial washouts/debridements and wound vac placements. Renal function WNL. Anticipating skin graft surgery in near future, not yet scheduled (bumped today) Blood sugar 177 fasting this AM. BG trending a bit on high side (170s-180s) will increase her Lantus just a bit, and continue aspart today. Will continue to monitor and make adjustments as needed. Plan: 1. Lantus: increase Lantus 50 units once daily 2. Aspart: Inject 7 units if patient eats entire meal, inject 4 units if patient eats 50% of meal, Hold if NPO 3. Aspart SSI: Dosing regimen weight between 76-100 kg BG Units 66-140 0 141-180 2 181-210 3 211-250 5 251-299 7 > 299 11 4. Aspart HS: 5 units at HS if BG > 250 and recheck BG at midnight 5. FS: AC/HS/PRN 6. Pt will benefit from Diabetes education as likely will need to discharge on insulin 7. Consider introduction of non-insulin agents (GLP1/SGLT2) as adjunct therapy to insulin, once closer to discharge, perhaps CGM 8. Will continue to follow with you. Discharge Plan: TBD Carmen Vernon NP 07/30/2023 11:03 * Nedra Armendariz RN - 07/30/2023 1057 EDT The Department of Case Management and Social Work Case Management Progress Note Patient Name Level of Care and Accommodation Code: Patient Class: Medically Ready: Y/N Della Browning Acute General Inpatient N Primary Dx: Decisional Capacity: Y/N Primary Support/ CareGiver: Advance Directive Necrotizing fasciitis ([facility]) Y N Advance Directives (For Healthcare) Healthcare Directive: No, patient does not have advance directive for healthcare treatment Information Provided on Healthcare Directives: Yes Information on Healthcare Directives Requested: No Disposition Information Appropriate to transfer back: Y/N Length of Stay (in days): Estimated Date of D/C: LTC Medicaid Status: N 47 08/08 N Primary Care Provider: AR/ANDRES/SNF referred: Y/N Bed Offers: Y/N Escalated to Leadership: Y/N UNKNOWN,PROVIDER N N N Mobility Level: Recommended D/C Location Payor: Bedside Mobility Assessment Tool (BMAT) Bedrest or non-weight bearing orders?: No Assessment Level 1-Sit & Shake: Pass Assessment Level 2-Stretch & Point: Pass Assessment Level 3-Stand: Fail Assessment Level 4-Step: Fail Mobility level determined: Mobility Level 2 use lift (ceiling or portable), sliding aid/sheet, air-assisted sliding aid Number of caregivers reccommended: 2 Recommended Discharge Destination PT Recommended Discharge Destination: Subacute rehabilitation Pay[place] / Plan[place] /Product Type: [place] GL / Barriers to Discharge N/a; remains medically acute for continued IP admission at [facility] Nec fasc debridement x2 (OSH) Serial debridement, repair rectal injury (06/14) Additional debridement, washout (06/16) Additional debridement, washout, partial closure (06/18) Wound vac application (06/21) Wound debridement with WV replacement in OR (07/09) Plan Level of Care: Acute/ IP Admission Point of Origin: [facility] Appropriate for Transfer Return vs Alternative Facility: N/a (reviewed with team 07/07, 07/10, week of 07/14, week of 07/22). Discharge plan/ Estimated date: TBD Insurance/ LTC Medicaid Status: Medicaid Support Network: sig other [facility] ([phone]); Henrietta Hensley ([phone]) (CM Note 07/29:) Chart reviewed and current status discussed with Primary team this morning in rounds. Next wound vac change scheduled for 07/31. Acell has been applied weekly to wound bed with vac changes; goal for skin graft - date pending. Current LDA's: Indwelling catheter, Rectal Tube, Wound Vac Current Infusions: N/a Recommended for eventual transfer to a Sub Acute Rehab setting. This CM will list for facilities once closer to medical readiness for transfer/ week+ following skin graft. (Patient's residence is in [facility] with partner [place]). (CM Note 07/25:) Remains medically acute for continued inpatient care at [facility]. Last wound vac change with Acell application to wound bed yesterday 07/24. Next wound vac change scheduled for 07/31 Plan to list for Sub Acute Rehab once closer to medical readiness for transfer. (CM Note 07/22:) Chart reviewed and updates received from Primary team in morning rounds. Patient with necrotizing fasciitis with Wound vac application. Last change 07/16 with next change planned for tomorrow 07/23. Receiving Acell application to wound bed. Remains medically acute for ongoing wound management at [facility]. (CM Note 07/16:) Patient with Wound Vac change this morning (please refer to KATY Duval progress note). Replaced WV; using acellular matrix overlying wound bed with vendor following on site. May require another week of WV prior to further determination of treatment care plan. Per ongoing discussions with Primary team, patient is Not a candidate for transfer return to [facility] due to acuity of wound care requiring current services of ACS. Otherwise, CM is continuing to follow and will provide additional updates regarding any status changes as appropriate. (CM Note 07/14:) Chart reviewed and updates received this morning from Primary team in rounds. Plan for Wound Vac change this Sunday 07/16 with possible STSG dependent on assessment of wound bed. Patient asleep at time of CM visit. Discussed care with Nursing. Acute therapies following and currently recommending for short-term Sub Acute Rehab stay. Will listonce closer to medical readiness with more clear plan of care in place. Not currently getting up out of bed. WV, rectal tube, indwelling vuong cath intact. This CM will continue to follow and assist with coordination of disposition plan dependent on clinical course/ care team recommendations. Please reach out with any additional questions/ concerns, or acute changes in care plan in order toprovide patient with adequate supports. (CM Note 07/10:) Plan continues for WV reassessment on Friday 07/14 with possible skin graft pending following vac removal. Worked with PT today at bedside with eventual recommendations for a short-term Sub Acute Rehab stay. This CM will list for rehab facilities once closer to medical readiness for a transition to the next appropriate level of care. Will reassess clinical status Saturday following Wound Vac change. Please reach out with any additional questions/ concerns, or acute changes in care plan in order toprovide patient with adequate supports. E-Signature Nedra Armendariz RN CM CMSW Department (Available via [employer]) * Carmen Vernon NP - 07/29/2023 1121 EDT Endocrine/Diabetes Follow Up/Progress Note Admit Date: 06/13/2023 Hospital day LOS: 46 days Date of Service: 07/29/2023 Reason for Following: T2DM Inpatient glycemic management, Necrotizing Fasciitis HPI: 52 y/o F with PMH of T2 DM, HTN, Anxiety/Depression, admitted via ER with R Gluteal Necrotizing Fasciitis 06/12, complicated by Post-operative bradycardic arrest x2 early in hospital course, suspected heart block vs vagal event. Recovered normal cardiac function, EP cards signed off and has hadpersistent respiratory complications. She has undergone serial washouts/debridements and wound vac placements, nearing evaluation for skin graft viability per surgical note. Subjective: laying in bed, has eaten breakfast, states pain in all over, nothing acute, comfortable enough Diabetes History: Onset: ~ 10-15 yr ago Control: A1C 8.2 on 06/13 Complications: Peripheral Neuropathy, infected wound Home Regimen: On no meds at home Says previously she had taken insulin Tries to watch diet SBGM and Self Care: Stopped taking FS Current Diet: Regular (added Consistent Carb) Social Information: Single, Lives in [facility], has male partner. 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 Unsure of family history maybe grandparents w DM Regular Diabetes Provider: PCP ROS: No N/V No CP/SOB No fevers/chills Objective/Physical Exam: VS: BP: 126/63 Pulse: 72 Heart Rate: 75 BPM Resp: 20 Temp: 36.7 ??C (98 ??F) SpO2: 100 % O2 Flow Rate (L/min): 0 l/min O2 Device: None FIO2 %: 30 % Weight: Weight : 82.8 kg (182 lb 8.7 oz) Body mass index is 32.34 kg/m??. Food Intake: DIET REGULAR Activity:bedrest Exam: Resting in bed on left side Talkative A&O Rectal tube and wound vac to right buttock in place Data Review: Labs: Recent Labs 07/26/23 1126 07/26/23 1808 07/26/23 2141 07/27/23 0813 07/27/23 1148 07/27/23 1751 07/27/23 2156 07/28/23 0731 07/28/23 1149 07/28/23 1803 07/28/23 2147 07/29/23 0711 GLUCOSEPOC 131* 177* 173* 133* 118* 165* 149* 127* 129* 139* 159* 184* Lab Results Component Value Date HGBA1C 8.2 (H) 06/14/2023 Lab Results Component Value Date SERGLU 218 (H) 07/29/2023 NA 130 (L) 07/29/2023 K 4.3 07/29/2023 CL 100 07/29/2023 CO2 17 (L) 07/29/2023 BUN 20 07/29/2023 CREATININE 0.45 (L) 07/29/2023 CALCIUM 9.5 07/29/2023 Assessment 52 y/o F with 10-15 yr H/O T2 DM, manages with dietary measures, A1C is uncontrolled. Has PMH of HTN, Anxiety/Depression, admitted via ER with R Gluteal Necrotizing Fasciitis 06/12, complicated by Post-operative bradycardic arrest x2 early in hospital course, suspected heart block vs vagal event. Recovered normal cardiac function, EP cards signed off and has had persistent respiratory complications. She has undergone serial washouts/debridements and wound vac placements. Renal function WNL Blood sugar 184 fasting this AM. Will continue her Lantus, and aspart today, BG trends fairly stable, Will continue to monitor and make adjustments as needed. Plan: 1. Lantus: Lantus 46 units once daily 2. Aspart: Inject 7 units if patient eats entire meal, inject 4 units if patient eats 50% of meal, Hold if NPO 3. Aspart SSI: Dosing regimen weight between 76-100 kg BG Units 66-140 0 141-180 2 181-210 3 211-250 5 251-299 7 > 299 11 4. Aspart HS: 5 units at HS if BG > 250 and recheck BG at midnight 5. FS: AC/HS/PRN 6. Pt will benefit from Diabetes education as likely will need to discharge on insulin 7. Consider introduction of non-insulin agents (GLP1/SGLT2) as adjunct therapy to insulin, once closer to discharge, perhaps CGM 8. Will continue to follow with you. Discharge Plan: TBD Carmen Vernon NP 07/29/2023 11:21 * Moo Monique MD - 07/29/2023 0911 EDT Acute Care Surgery Progress Note Service Date: 07/29/2023 Admit Date: 06/13/2023 23:23 Procedure(s): Nec fasc debridement x2 (OSH) Serial debridement, repair rectal injury (06/14) Additional debridement, washout (06/16) Additional debridement, washout, partial closure (06/18) Washout, wound vac change (06/25) Wound vac change (07/09) Chief Complaint: NSTI 24 Hour Events: -No acute events -Wound vac leak around midnight, resolved with adhesive sheet reinforcement Subjective Feeling fine this morning. States she slept well. Pain under okay control, but states that she hurts everywhere. Tolerating p.o. fine. Overall no new or worsening concerns. Specifically, no nausea/vomiting/fever/chills/chest pain/shortness of breath. Objective Vital Signs: Temp: [36.6 ??C (97.8 ??F)-36.9 ??C (98.4 ??F)] Heart Rate: [79 BPM-85 BPM] Pulse: [72-85] Pulse From Oximetry: [76 BPM-85 BPM] Resp: [18-20] BP: (103-145)/(50-73) SpO2: [95 %-100 %] I/O: Intake/Output Summary (Last 24 hours) at 07/29/2023 0911 Last data filed at 07/29/2023 0906 Gross per 24 hour Intake 2170 ml Output 4185 ml Net -2015 ml I&O By Type - 3 Shifts Including Current In: 1690 [P.O.:1690] Out: 2835 [Urine:2225; Drains:610] Physical Exam: Gen: resting, NAD Resp: unlabored on room air : Wound vac in position holding suction, serosanguinous output Psych: appropriate mood and affect Labs: CBC: Recent Labs 07/29/23 0750 WBC 6.95 RBC 3.02* HGB 8.5* HCT 25.0* MCV 83 MCH 28.1 MCHC 34.0 PLT 337 NEUTROABS 3.76 BMP: Recent Labs 07/29/23 0750 NA 130* K 4.3 CL 100 CO2 17* BUN 20 CREATININE 0.45* CALCIUM 9.5 Glucose: Glucose, POC Date/Time Value Ref Range Status 07/29/2023 07:11 184 (H) 70 - 100 mg/dL Final Assessment 52 y.o. female with a history of HTN and T2DM who presented as a transfer from [facility] on 06/12 with necrotizing fasciitis. S/p debridement x2 at OSH and s/p debridement at [facility] on 06/14.Post-operative bradycardic arrest x2 early in hospital course, suspected heart block vs vagal event. Recovered normal cardiac function, EP cards signed off. Had transferred to floor however on 07/02 required transfer to SICU for hypoxic respiratory failure secondary to atelectasis/mucous plugging. Intubated for bronchoscopy, now extubated and stable on nasal cannula. Doing well with respiratory therapy. Undergoing local wound care and serial debridements, as well as pulmonary toilet. Continue serial wound vac changes, next on 07/31. Will evaluate wound at that time for skin graft viability. Plan Nest wound vac change 07/31 Evaluate for graft suitability Multimodal pain control - Scheduled Tylenol and ativan RT for airway clearance Q4H, Greta Consistent carbohydrate diet, Endocrine following, appreciate their assistance with DM management No abx for skin infection due to adequate source control Rectal tube for wound hygiene Nystatin powder BID ordered to perianal/gluteal cleft skin Ensure to cycle balloon daily as per nursing/floor protocol Lasix 40mg PO daily Continue bedtime seroquel 25 mg qhs Encourage aggressive I-S Labs every Saturday, VTE prophylaxis: Pharmacologic Prophylaxis: Enoxaparin (Lovenox) 40 mg SQ daily Dispo: pending clinical course LGOAN OJEDA DO, PGY1 07/29/2023 9:11 [facility] Pager #[phone] Attestation: I performed or was present during the cooper or critical portions of the visit and participated in the management of the patient on 07/29/2023. I agree with the findings and plan of care documented in the resident's/fellow's note.Stool in vac drainage. Plan to change vac today. STSG this week. Moo Monique MD 07/29/2023 16:46 * Carmen Vernon NP - 07/28/2023 1041 EDT Endocrine/Diabetes Follow Up/Progress Note Admit Date: 06/13/2023 Hospital day LOS: 45 days Date of Service: 07/28/2023 Reason for Following: T2DM Inpatient glycemic management, Necrotizing Fasciitis HPI: 52 y/o F with PMH of T2 DM, HTN, Anxiety/Depression, admitted via ER with R Gluteal Necrotizing Fasciitis 06/12, complicated by Post-operative bradycardic arrest x2 early in hospital course, suspected heart block vs vagal event. Recovered normal cardiac function, EP cards signed off and has hadpersistent respiratory complications. She has undergone serial washouts/debridements and wound vac placements, nearing evaluation for skin graft viability per surgical note. Subjective: pt sleeping soundly, did not awaken Diabetes History: Onset: ~ 10-15 yr ago Control: A1C 8.2 on 06/13 Complications: Peripheral Neuropathy, infected wound Home Regimen: On no meds at home Says previously she had taken insulin Tries to watch diet SBGM and Self Care: Stopped taking FS Current Regimen: Lantus 30 units subcutaneous daily. Aspart SSI for weight 76- 100 Kg Current Diet: Regular (added Consistent Carb) Social Information: Single, Lives in [facility], has male partner. 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 Unsure of family history maybe grandparents w DM Regular Diabetes Provider: PCP ROS: N/A Objective/Physical Exam: VS: BP: 113/57 Pulse: 78 Heart Rate: 78 BPM Resp: 18 Temp: 36.4 ??C (97.6 ??F) SpO2: 90 % O2 Flow Rate (L/min): 0 l/min O2 Device: None FIO2 %: 30 % Weight: Weight : 82.8 kg (182 lb 8.7 oz) Body mass index is 32.34 kg/m??. Food Intake: DIET REGULAR Activity:bedrest Exam: Sleeping soundly Data Review: Labs: Recent Labs 07/25/23 1122 07/25/23 1815 07/25/23 2042 07/26/23 0740 07/26/23 1126 07/26/23 1808 07/26/23 2141 07/27/23 0813 07/27/23 1148 07/27/23 1751 07/27/23 2156 07/28/23 0731 GLUCOSEPOC 144* 142* 159* 146* 131* 177* 173* 133* 118* 165* 149* 127* Lab Results Component Value Date HGBA1C 8.2 (H) 06/14/2023 Lab Results Component Value Date SERGLU 119 (H) 07/25/2023 NA 135 (L) 07/25/2023 K 3.9 07/25/2023 CL 102 07/25/2023 CO2 21 (L) 07/25/2023 BUN 18 07/25/2023 CREATININE 0.49 (L) 07/25/2023 CALCIUM 9.3 07/25/2023 Assessment 52 y/o F with 10-15 yr H/O T2 DM, manages with dietary measures, A1C is uncontrolled. Has PMH of HTN, Anxiety/Depression, admitted via ER with R Gluteal Necrotizing Fasciitis 06/12, complicated by Post-operative bradycardic arrest x2 early in hospital course, suspected heart block vs vagal event. Recovered normal cardiac function, EP cards signed off and has had persistent respiratory complications. She has undergone serial washouts/debridements and wound vac placements. Renal function WNL Blood sugar 127 fasting this AM. Will continue her Lantus, and aspart today, BG trends stable Will continue to monitor and make adjustments as needed. Plan: 1. Lantus: Lantus 46 units once daily 2. Aspart: Inject 7 units if patient eats entire meal, inject 4 units if patient eats 50% of meal, Hold if NPO 3. Aspart SSI: Dosing regimen weight between 76-100 kg BG Units 66-140 0 141-180 2 181-210 3 211-250 5 251-299 7 > 299 11 4. Aspart HS: 5 units at HS if BG > 250 and recheck BG at midnight 5. FS: AC/HS/PRN 6. Pt will benefit from Diabetes education as likely will need to discharge on insulin 7. Consider introduction of non-insulin agents (GLP1/SGLT2) as adjunct therapy to insulin, once closer to discharge, perhaps CGM 8. Will continue to follow with you. Discharge Plan: TBD Carmen Vernon NP 07/28/2023 10:41 * Marques Kenny MD - 07/28/2023 0704 EDT Acute Care Surgery Progress Note Service Date: 07/28/2023 Admit Date: 06/13/2023 23:23 Procedure(s): Nec fasc debridement x2 (OSH) Serial debridement, repair rectal injury (06/14) Additional debridement, washout (06/16) Additional debridement, washout, partial closure (06/18) Washout, wound vac change (06/25) Wound vac change (07/09) Chief Complaint: NSTI 24 Hour Events: -GAEL Subjective Reports feeling better this morning, she appreciates her pain medications and daily Ativan being scheduled. She reports that she has been tolerating regular diet, and engaging well with her I-S. She reports no nausea/vomiting/fever/chills/chest pain/shortness of breath. Objective Vital Signs: Temp: [36.3 ??C (97.4 ??F)-36.8 ??C (98.3 ??F)] Heart Rate: [74 BPM-79 BPM] Pulse: [75-79] Pulse From Oximetry: [73 BPM-79 BPM] Resp: [18-19] BP: (115-135)/(59-72) SpO2: [97 %-100 %] I/O: Intake/Output Summary (Last 24 hours) at 07/28/2023 0704 Last data filed at 07/28/2023 0508 Gross per 24 hour Intake 2100 ml Output 4175 ml Net -2075 ml I&O By Type - 3 Shifts Including Current In: 1800 [P.O.:1800] Out: 3525 [Urine:3175; Drains:350] Physical Exam: Gen: resting, NAD Resp: unlabored on room air : Wound vac in position holding suction, serosanguinous output Psych: appropriate mood and affect Labs: CBC: Recent Labs 07/25/23 0859 WBC 6.96 RBC 3.10* HGB 8.9* HCT 26.5* MCV 86 MCH 28.7 MCHC 33.6 PLT 374 NEUTROABS 3.80 BMP: Recent Labs 07/25/23 0858 NA 135* K 3.9 CL 102 CO2 21* BUN 18 CREATININE 0.49* CALCIUM 9.3 Glucose: Glucose, POC Date/Time Value Ref Range Status 07/27/2023 21:56 149 (H) 70 - 100 mg/dL Final Assessment 52 y.o. female with a history of HTN and T2DM who presented as a transfer from [facility] on 06/12 with necrotizing fasciitis. S/p debridement x2 at OSH and s/p debridement at [facility] on 06/14.Post-operative bradycardic arrest x2 early in hospital course, suspected heart block vs vagal event. Recovered normal cardiac function, EP cards signed off. Had transferred to floor however on 07/02 required transfer to SICU for hypoxic respiratory failure secondary to atelectasis/mucous plugging. Intubated for bronchoscopy, now extubated and stable on nasal cannula. Doing well with respiratory therapy. Undergoing local wound care and serial debridements, as well as pulmonary toilet. Continue serial wound vac changes, next one next week. Nearing evaluation for skin graft viability. Plan Nest wound vac change 07/31 Multimodal pain control - Scheduled Tylenol and ativan RT for airway clearance Q4H, DuoNebs Consistent carbohydrate diet, appreciate Endocrine recs No abx for skin infection due to adequate source control Rectal tube for wound hygiene Nystatin powder BID ordered to perianal/gluteal cleft skin Ensure to cycle balloon daily as per nursing/floor protocol Lasix 40mg PO daily Continue bedtime seroquel 25 mg qhs Encourage aggressive I-S Labs every Saturday, VTE prophylaxis: Pharmacologic Prophylaxis: Enoxaparin (Lovenox) 40 mg SQ daily Dispo: pending clinical course MARQUES KENNY MD, PGY1 07/28/2023 7:04 [facility] Pager #[phone] Associated attestation - Hira Franklin MD - 07/28/2023 1642 EDT I examined the patient with the resident/MADELINE I agree with the above findings and plan. Additional comments: Recovering appropriately. Continued wound care pending closure * Moo Monique MD - 07/27/2023 0737 EDT Acute Care Surgery Progress Note Service Date: 07/27/2023 Admit Date: 06/13/2023 23:23 Procedure(s): Nec fasc debridement x2 (OSH) Serial debridement, repair rectal injury (06/14) Additional debridement, washout (06/16) Additional debridement, washout, partial closure (06/18) Washout, wound vac change (06/25) Wound vac change (07/09) Chief Complaint: NSTI 24 Hour Events: -NAEON Subjective Wishes for some of her pain meds to be scheduled so she doesn't forget to take them/fall behind. Otherwise no acute complaints no concerns. Objective Vital Signs: Temp: [36.2 ??C (97.1 ??F)-36.9 ??C (98.4 ??F)] Heart Rate: [80 BPM-85 BPM] Pulse: [80-86] Pulse From Oximetry: [73 BPM-87 BPM] Resp: [16-18] BP: (126-144)/(62-82) SpO2: [94 %-100 %] I/O: Intake/Output Summary (Last 24 hours) at 07/27/2023 0737 Last data filed at 07/27/2023 0603 Gross per 24 hour Intake 3040 ml Output 3350 ml Net -310 ml I&O By Type - 3 Shifts Including Current In: 1600 [P.O.:1600] Out: 2775 [Urine:2625; Drains:150] Physical Exam: Gen: resting, NAD Resp: unlabored on room air : Wound vac in position holding suction, serosanguinous output Psych: appropriate mood and affect Labs: CBC: Recent Labs 07/25/23 0859 WBC 6.96 RBC 3.10* HGB 8.9* HCT 26.5* MCV 86 MCH 28.7 MCHC 33.6 PLT 374 NEUTROABS 3.80 BMP: Recent Labs 07/25/23 0858 NA 135* K 3.9 CL 102 CO2 21* BUN 18 CREATININE 0.49* CALCIUM 9.3 Glucose: Glucose, POC Date/Time Value Ref Range Status 07/26/2023 21:41 173 (H) 70 - 100 mg/dL Final Assessment 52 y.o. female with a history of HTN and T2DM who presented as a transfer from [facility] on 06/12 with necrotizing fasciitis. S/p debridement x2 at OSH and s/p debridement at [facility] on 06/14.Post-operative bradycardic arrest x2 early in hospital course, suspected heart block vs vagal event. Recovered normal cardiac function, EP cards signed off. Had transferred to floor however on 07/02 required transfer to SICU for hypoxic respiratory failure secondary to atelectasis/mucous plugging. Intubated for bronchoscopy, now extubated and stable on nasal cannula. Doing well with respiratory therapy. Undergoing local wound care and serial debridements, as well as pulmonary toilet. Continue serial wound vac changes, next one next week. Plan Nest wound vac change 07/31 Multimodal pain control - Scheduled Tylenol and ativan RT for airway clearance Q4H, DuoNebs Consistent carbohydrate diet, appreciate Endocrine recs No abx for skin infection due to adequate source control Rectal tube for wound hygiene Nystatin powder BID ordered to perianal/gluteal cleft skin Ensure to cycle balloon daily as per nursing/floor protocol Lasix 40mg PO daily Continue bedtime seroquel 25 mg qhs Encourage aggressive I-S Labs every Saturday, VTE prophylaxis: Pharmacologic Prophylaxis: Enoxaparin (Lovenox) 40 mg SQ daily Dispo: pending clinical course MARQUES KENNY MD, PGY1 07/27/2023 7:37 ACS Pager #[phone] Attestation: I performed or was present during the cooper or critical portions of the visit and participated in the management of the patient on 07/27/2023. I agree with the findings and plan of care documented in the resident's/fellow's note. Moo Monique MD 07/27/2023 22:36 * Nedra Armendariz RN - 07/26/2023 1223 EDT The Department of Case Management and Social Work Case Management Progress Note Patient Name Level of Care and Accommodation Code: Patient Class: Medically Ready: Y/N Della Browning Acute General Inpatient N Primary Dx: Decisional Capacity: Y/N Primary Support/ CareGiver: Advance Directive Necrotizing fasciitis ([facility]) Y N Advance Directives (For Healthcare) Healthcare Directive: No, patient does not have advance directive for healthcare treatment Information Provided on Healthcare Directives: Yes Information on Healthcare Directives Requested: No Disposition Information Appropriate to transfer back: Y/N Length of Stay (in days): Estimated Date of D/C: LTC Medicaid Status: N 43 End of next week (wk of 07/21) N Primary Care Provider: AR/ANDRES/SNF referred: Y/N Bed Offers: Y/N Escalated to Leadership: Y/N UNKNOWN,PROVIDER N N N Mobility Level: Recommended D/C Location Payor: Bedside Mobility Assessment Tool (BMAT) Bedrest or non-weight bearing orders?: No Assessment Level 1-Sit & Shake: Pass Assessment Level 2-Stretch & Point: Pass Assessment Level 3-Stand: Fail Assessment Level 4-Step: Fail Mobility level determined: Mobility Level 2 use lift (ceiling or portable), sliding aid/sheet, air-assisted sliding aid Number of caregivers reccommended: 2 Recommended Discharge Destination PT Recommended Discharge Destination: Subacute rehabilitation Pay[place] / Plan[place] /Product Type: [place] GL / Barriers to Discharge N/a; remains medically acute for continued IP admission at [facility] Nec fasc debridement x2 (OSH) Serial debridement, repair rectal injury (06/14) Additional debridement, washout (06/16) Additional debridement, washout, partial closure (06/18) Wound vac application (06/21) Wound debridement with WV replacement in [place] (07/09) Plan Level of Care: Acute/ IP Admission Point of Origin: [facility] Appropriate for Transfer Return vs Alternative Facility: N/a (reviewed with team 07/07, 07/10, week of 07/14, week of 07/22). Discharge plan/ Estimated date: TBD Insurance/ LTC Medicaid Status: Medicaid Support Network: anya Lezama ([phone]); Henrietta Hensley ([phone]) (CM Note 07/25:) Remains medically acute for continued inpatient care at [facility]. Last wound vac change with Acell application to wound bed yesterday 07/24. Next wound vac change scheduled for 07/31 Plan to list for Sub Acute Rehab once closer to medical readiness for transfer. (CM Note 07/22:) Chart reviewed and updates received from Primary team in morning rounds. Patient with necrotizing fasciitis with Wound vac application. Last change 07/16 with next change planned for tomorrow 07/23. Receiving Acell application to wound bed. Remains medically acute for ongoing wound management at [facility]. (CM Note 07/16:) Patient with Wound Vac change this morning (please refer to KATY Duval progress note). Replaced WV; using acellular matrix overlying wound bed with vendor following on site. May require another week of WV prior to further determination of treatment care plan. Per ongoing discussions with Primary team, patient is Not a candidate for transfer return to sending hospital due to acuity of wound care requiring current services of ACS. Otherwise, CM is continuing to follow and will provide additional updates regarding any status changes as appropriate. (CM Note 07/14:) Chart reviewed and updates received this morning from Primary team in rounds. Plan for Wound Vac change this Sunday 07/16 with possible STSG dependent on assessment of wound bed. Patient asleep at time of CM visit. Discussed care with Nursing. Acute therapies following and currently recommending for short-term Sub Acute Rehab stay. Will listonce closer to medical readiness with more clear plan of care in place. Not currently getting up out of bed. WV, rectal tube, indwelling vuong cath intact. This CM will continue to follow and assist with coordination of disposition plan dependent on clinical course/ care team recommendations. Please reach out with any additional questions/ concerns, or acute changes in care plan in order toprovide patient with adequate supports. (CM Note 07/10:) Plan continues for WV reassessment on Friday 07/14 with possible skin graft pending following vac removal. Worked with PT today at bedside with eventual recommendations for a short-term Sub Acute Rehab stay. This CM will list for rehab facilities once closer to medical readiness for a transition to the next appropriate level of care. Will reassess clinical status Saturday following Wound Vac change. Please reach out with any additional questions/ concerns, or acute changes in care plan in order toprovide patient with adequate supports. E-Signature Nedra Armendariz RN CM CMSW Department (Available via MideoMe) * Brittani Rinaldi, - 07/26/2023 1203 EDT Endocrine/Diabetes Follow Up/Progress Note Admit Date: 06/13/2023 Hospital day LOS: 43 days Date of Service: 07/26/2023 Reason for Following: T2DM Inpatient glycemic management, Necrotizing Fasciitis HPI: 52 y/o F with PMH of T2 DM, HTN, Anxiety/Depression, admitted via ER with R Gluteal Necrotizing Fasciitis 06/12, complicated by Post-operative bradycardic arrest x2 early in hospital course, suspected heart block vs vagal event. Recovered normal cardiac function, EP cards signed off and has hadpersistent respiratory complications. She has undergone serial washouts/debridements and wound vac placements. Subjective: Reports her appetite is consistently good. No new complaints. Diabetes History: Onset: ~ 10-15 yr ago Control: A1C 8.2 on 06/13 Complications: Peripheral Neuropathy, infected wound Home Regimen: On no meds at home Says previously she had taken insulin Tries to watch diet SBGM and Self Care: Stopped taking FS Current Diet: Regular (added Consistent Carb) Social Information: Single, Lives in [facility], has male partner. 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 Unsure of family history maybe grandparents w DM Regular Diabetes Provider: PCP ROS: She has some pain, remainder of ROS is unremarkable. Objective/Physical Exam: VS: BP: 128/82 Pulse: 86 Heart Rate: 85 BPM Resp: 16 Temp: 36.2 ??C (97.1 ??F) SpO2: 94 % O2 Flow Rate (L/min): 0 l/min O2 Device: None FIO2 %: 30 % Weight: Weight : 82.8 kg (182 lb 8.7 oz) Body mass index is 32.34 kg/m??. Food Intake: DIET REGULAR Consistent Carb added Activity:bedrest Exam: Alert, NAD. On RA, breathing unlabored. Data Review: Labs: Recent Labs 07/23/23 1701 07/23/23 2035 07/24/23 0753 07/24/23 1137 07/24/23 1809 07/24/23 2046 07/25/23 0648 07/25/23 1122 07/25/23 1815 07/25/23 2042 07/26/23 0740 07/26/23 1126 GLUCOSEPOC 211* 164* 173* 150* 133* 142* 131* 144* 142* 159* 146* 131* Lab Results Component Value Date HGBA1C 8.2 (H) 06/14/2023 Lab Results Component Value Date SERGLU 119 (H) 07/25/2023 NA 135 (L) 07/25/2023 K 3.9 07/25/2023 CL 102 07/25/2023 CO2 21 (L) 07/25/2023 BUN 18 07/25/2023 CREATININE 0.49 (L) 07/25/2023 CALCIUM 9.3 07/25/2023 Assessment 52 y/o F with 10-15 yr H/O T2 DM, manages with dietary measures, A1C is uncontrolled. Has PMH of HTN, Anxiety/Depression, admitted via ER with R Gluteal Necrotizing Fasciitis 06/12, complicated by Post-operative bradycardic arrest x2 early in hospital course, suspected heart block vs vagal event. Recovered normal cardiac function, EP cards signed off and has had persistent respiratory complications. She has undergone serial washouts/debridements and wound vac placements. Renal function WNL Appetite is good. Blood sugars stable. Will continue insulin at current dosing. Plan: 1. Lantus: Continue 46 units once daily 2. Aspart: 7 units if patient eats entire meal, and 4 units if patient eats 50% of meal, Hold if NPO 3. Aspart SSI: Dosing regimen weight between 76-100 kg 4. Aspart HS: 5 units at HS if BG > 250 and recheck BG at midnight 5. FS: AC/HS/PRN 6. Pt will benefit from Diabetes education as likely will need to discharge on insulin 7. Consider introduction of non-insulin agents (GLP1/SGLT2) as adjunct therapy to insulin, once closer to discharge. Also consider use of CGM Will continue to follow with you. Discharge Plan: TBD Brittani Rinaldi DO 07/26/2023 12:03 * Elsa Beckford OT - 07/26/2023 1032 EDT [facility] Acute Therapies [facility] Occupational Therapy Initial Evaluation Note Date of Service: 07/26/2023 Reason for Referral: Evaluate and Treat Precautions: Activity as tolerated Up ad bharath SUBJECTIVE: It feels good to sit here. Maybe I can sit here again when I get my lunch Pain: Pt endorsed pain in buttocks, not numerically rated OBJECTIVE: Patient Profile: Della Browning is a Right hand dominant 52 y.o. female admitted on 06/13/2023 secondary to Necrotizing fasciitis ([facility]) [M72.6] The patient lives at [address] [place] [id number] History of Present Illness/Injury: Summary assessment on 06/28/[address] Chato Beckwith 52 y.o. female with a history of HTN and T2DM who presented as a transfer from [facility] on 06/12 with necrotizing fasciitis. S/p debridement x2 at OSH and s/p debridement at [facility] on 06/14. Post-operative bradycardic arrest x2, suspected heart block vs vagal event. Recovered normal cardiac function, EP cards signed off. Has been undergoing local wound care and serial debridements, as well as pulmonary toilet. Plan for PT eval for dispo planning while continuing local wound care. Vac change today, continued nasal cannula requirements, will consider diuresis as well. Living Environment/Home Set-up: Patient lives with SO in a single level Apartment. Bedroom is On main level. Bathroom is On main level with a Tub/shower combo. Caregiver Support: 24-hour assist Equipment Available: Commode, Grab bars in shower/tub, Shower chair, and Rolling walker Prior Level of Function: Activities of daily living: primarily housebound. 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 Work/Leisure: Disabled Medical/Surgical History: CURRENT: The patient has Necrotizing fasciitis (HCC-CMS); Necrotizing soft tissue infection; Cardiopulmonary arrest with successful resuscitation ([facility]); Type 2 diabetes mellitus; Complete heart block ([facility]); Palliative care by specialist; Insufficiency, respiratory, acute; Electrolyte and fluid disorder; Acute respiratory failure with hypoxia ([facility]); Respiratory insufficiency; Type 2 diabetes with complication ([facility]); and Type 2 diabetes mellitus with peripheral neuropathy ([facility]) on their problem list. PAST: The patient has no past medical history on file. SURGICAL: The patient has no past surgical history on file. Medications: Medications reviewed. Body Functions and Performance Skills: Cardiovascular/Respiratory Systems Function: Vital Signs: Patient vital signs stable and not symptomatic during assessment/treatment Mental Functions: Arousal:Alert Orientation:Oriented x 4 Memory:No problems noted Judgement/insight:No problems noted Processing Speed:No problems noted Attention:No problems noted Following instructions: No problems noted Able to follow multi step instructions Behavioral characteristics: Pleasant and cooperative Sensory Functions: Hearing:Intact to conversational tones Touch:pt endorsed tingling in digits (4/5th greatest) of L hand since stroke earlier this year Vision:Current complaints:No problems noted No problems reported Neuro musculoskeletal and Movement Related Functions: Range of Motion: Within normal limits Strength Within normal limits Control of Voluntary Movement: some clumsiness noted in L hand. States she often drops items d/t difficulty with sensation Skin and Related Structure Functions: Drain Duration Rectal Tube With balloon 21 days Urethral Catheter 14 fr 14 days Wound Vac Right buttock 4 days Wound Duration Wound 06/14/23 Buttock;Rectum 45 days Wound 07/10/23 Pressure Injury Right;Medial Buttock 19 days Areas of Occupation and Performance Skills: Basic Activities of Daily Living: Feeding: Pt reported she has been feeding herself meals independently using dominant R UE, drops items on L but states it is getting better. Grooming: Anticipate independent after set-up A provided to retrieve necessary items and performingtasks in seated position. Upper Body Dressing: independent after set-up A provided to retrieve necessary items and performingtasks in seated position. Lower Body Dressing:mod assist to don darco shoes Functional Mobility: Supine<>sit: supervision, assist only to manage drains to/from sitting at L E#OB Sitting balance: Independent Instrumental Activities of Daily Living: Not evaluated Informed Consent: The patient consented to occupational therapy evaluation. The patient agrees to and understands theoccupational therapy treatment plan and goals Interventions completed today: Occupational therapy today at 0955. Total treatment time: 30 minutes. Timed code treatment minutes: 0 Intervention included: No interventions today Patient/Family Education: Topic: Benefits of activity Compensatory strategies Role of OT D/C planning Learner: patient Method: verbal Barriers to Learning: none noted Outcome: verbalized understanding Team Communication: Notified:Nurse By:Face to face communication When:Prior to therapy About:Readiness for therapy Patient status at end of therapy session: The patient was left in:Bed With the: Call marroquin in reach ASSESSMENT: Patient was appropriate for skilled Occupational Therapy evaluation due to admission for necrotizing fasciitis. Occupational Therapy impairments: Strength, Activity tolerance, Balance, and Pain These impairments impact the following areas of occupation: Self care, Functional mobility, and Home management tasks. Occupational Therapy is medically necessary to: address functional impairments, activity limitations, and participation restrictions and improve safety and independence. Current status compared to baseline level of function: Below prior level of function. Anticipated rate of progress: Slow and steady. Progress may be affected by the following: strengths: capacity for carryover of new learning, family/social support, home environment, motivation, and previous level of function barriers: acute medical issues, co-morbidities, endurance, and fall risk. Discharge recommendations: Sub acute rehab. See plan below for applicable equipment and follow up service recommendations. GOALS: Short Term Goals: N/A Neck Pinner Goals: 2-4 weeks Pt will be modified independent with functional transfers across varying surfaces in prep for ADLs Pt will be independent with bed mobility in preparation for ADLs Pt will complete toileting tasks with modified independence Pt will perform LB self-care/dressing tasks with modified independence Pt will be independent with grooming task in stance at sink PLAN: Intervention: Occupational therapy will be provided by occupational therapist when medically appropriate. Frequency: daily for 1-3 times per week as determined by patient's medical stability, tolerance to activityand progression of functional activities. Intensity: 15-60 minutes per session, Duration: During hos pitalization, Interventions may include:Self care/home management, Therapeutic exercises, and Therapeutic activities Further Data: Continued evaluation Patient/Family Education: Adaptive ADL's, Adaptive equipment, Discharge planning, Precautions, Roleof OT, and Safety Recommended Discharge Destination: Sub-acute Rehabilitation Recommended Discharge Services: Occupational therapy at rehabilitation facility Recommended Discharge Equipment: To be determined by next care provider Pager: [phone] Elsa Beckford OT, 07/26/2023, 10:32 * Leesa Buenrostro MD - 07/26/2023 0904 EDT Acute Care Surgery Progress Note Service Date: 07/26/2023 Admit Date: 06/13/2023 23:23 Procedure(s): Nec fasc debridement x2 (OSH) Serial debridement, repair rectal injury (06/14) Additional debridement, washout (06/16) Additional debridement, washout, partial closure (06/18) Washout, wound vac change (06/25) Wound vac change (07/09) Chief Complaint: NSTI 24 Hour Events: -NAEON Subjective No acute concerns this morning, wound vac change went well yesterday. Holden tolerated it well. Objective Vital Signs: Temp: [36.2 ??C (97.1 ??F)-37.4 ??C (99.3 ??F)] Heart Rate: [74 BPM-88 BPM] Pulse: [75-86] Pulse From Oximetry: [76 BPM-87 BPM] Resp: [12-18] BP: (109-144)/(54-82) SpO2: [94 %-100 %] I/O: Intake/Output Summary (Last 24 hours) at 07/26/2023 0904 Last data filed at 07/26/2023 0900 Gross per 24 hour Intake 3760 ml Output 3405 ml Net 355 ml I&O By Type - 3 Shifts Including Current In: 3120 [P.O.:3120] Out: 2275 [Urine:2225; Drains:50] Physical Exam: Gen: resting, NAD Resp: unlabored on room air : Wound vac in position holding suction, serosanguinous output Psych: appropriate mood and affect Labs: CBC: Recent Labs 07/25/23 0859 WBC 6.96 RBC 3.10* HGB 8.9* HCT 26.5* MCV 86 MCH 28.7 MCHC 33.6 PLT 374 NEUTROABS 3.80 BMP: Recent Labs 07/25/23 0858 NA 135* K 3.9 CL 102 CO2 21* BUN 18 CREATININE 0.49* CALCIUM 9.3 Glucose: Glucose, POC Date/Time Value Ref Range Status 07/26/2023 07:40 146 (H) 70 - 100 mg/dL Final Assessment 52 y.o. female with a history of HTN and T2DM who presented as a transfer from [facility] on 06/12 with necrotizing fasciitis. S/p debridement x2 at OSH and s/p debridement at [facility] on 06/14.Post-operative bradycardic arrest x2 early in hospital course, suspected heart block vs vagal event. Recovered normal cardiac function, EP cards signed off. Had transferred to floor however on 07/02 required transfer to SICU for hypoxic respiratory failure secondary to atelectasis/mucous plugging. Intubated for bronchoscopy, now extubated and stable on nasal cannula. Doing well with respiratory therapy. Undergoing local wound care and serial debridements, as well as pulmonary toilet. Plan Nest wound vac change 07/31 Multimodal pain control RT for airway clearance Q4H, DuoNebs Consistent carbohydrate diet, appreciate Endocrine recs No abx for skin infection due to adequate source control Rectal tube for wound hygiene Nystatin powder BID ordered to perianal/gluteal cleft skin Ensure to cycle balloon daily as per nursing/floor protocol Lasix 40mg PO daily Continue bedtime seroquel 25 mg qhs Encourage aggressive I-S Labs every Saturday, VTE prophylaxis: Pharmacologic Prophylaxis: Enoxaparin (Lovenox) 40 mg SQ daily Dispo: pending clinical course LEESA BUENROSTRO MD, PGY1 07/26/2023 9:04 ACS Pager #[phone] Associated attestation - Kyle Mars MD - 07/28/2023 1057 EDT Attending Note I examined/discussed this pt with the residents on 07/26/23 and agree with the above note Wound vacc and a cell placed yesterday , wound looking good, plan change next Sat/ Kyle Mars MD [id number] * Tiff Aviles MD - 07/25/2023 1633 EDT Acute Care Surgery Progress Note Service Date: 07/25/2023 Admit Date: 06/13/2023 23:23 Procedure(s): Nec fasc debridement x2 (OSH) Serial debridement, repair rectal injury (06/14) Additional debridement, washout (06/16) Additional debridement, washout, partial closure (06/18) Washout, wound vac change (06/25) Wound vac change (07/09) Chief Complaint: NSTI 24 Hour Events: -NAEON Subjective No acute concerns this AM, denies uncontrolled pain, wound vac holding suction Objective Vital Signs: Temp: [36.4 ??C (97.6 ??F)-36.8 ??C (98.3 ??F)] Heart Rate: [74 BPM-87 BPM] Pulse: -- Pulse From Oximetry: [82 BPM-87 BPM] Resp: [16-18] BP: (109-143)/(54-71) SpO2: [99 %-100 %] I/O: Intake/Output Summary (Last 24 hours) at 07/25/2023 1633 Last data filed at 07/25/2023 1512 Gross per 24 hour Intake 1880 ml Output 4525 ml Net -2645 ml I&O By Type - 3 Shifts Including Current In: 1880 [P.O.:1800; Other:80] Out: 2925 [Urine:2000; Drains:925] Physical Exam: Gen: resting, NAD Resp: unlabored on room air : Wound vac in position holding suction, serosanguinous output Psych: appropriate mood and affect Labs: CBC: Recent Labs 07/25/23 0859 WBC 6.96 RBC 3.10* HGB 8.9* HCT 26.5* MCV 86 MCH 28.7 MCHC 33.6 PLT 374 NEUTROABS 3.80 BMP: Recent Labs 07/25/23 0858 NA 135* K 3.9 CL 102 CO2 21* BUN 18 CREATININE 0.49* CALCIUM 9.3 Glucose: Glucose, POC Date/Time Value Ref Range Status 07/25/2023 11:22 144 (H) 70 - 100 mg/dL Final Assessment 52 y.o. female with a history of HTN and T2DM who presented as a transfer from [facility] on 06/12 with necrotizing fasciitis. S/p debridement x2 at OSH and s/p debridement at [facility] on 06/14.Post-operative bradycardic arrest x2 early in hospital course, suspected heart block vs vagal event. Recovered normal cardiac function, EP cards signed off. Had transferred to floor however on 07/02 required transfer to SICU for hypoxic respiratory failure secondary to atelectasis/mucous plugging. Intubated for bronchoscopy, now extubated and stable on nasal cannula. Doing well with respiratory therapy. Undergoing local wound care and serial debridements, as well as pulmonary toilet. Plan Principal Problem: Necrotizing fasciitis (HCC-CMS) Wound vac change today Multimodal pain control RT for airway clearance Q4H, DuoNebs Consistent carbohydrate diet, appreciate Endocrine recs No abx for skin infection due to adequate source control Rectal tube for wound hygiene Nystatin powder BID ordered to perianal/gluteal cleft skin Ensure to cycle balloon daily as per nursing/floor protocol Lasix 40mg PO daily Continue bedtime seroquel 25 mg qhs Encourage aggressive I-S Labs every Saturday, Completed course of Flagyl for BV VTE prophylaxis: Pharmacologic Prophylaxis: Enoxaparin (Lovenox) 40 mg SQ daily Dispo: pending clinical course TIFF AVILES MD, PGY1 07/25/2023 16:33 ACS Pager #[phone] Associated attestation - Kyle Mars MD - 07/25/2023 8632 EDT Attending note I examined/discussed this pt with the residents on 07/25/23 and agree with the above note Wound vacc and acell admin today, wound looks improved Kyle Mars MD [id number] * Good Gloria, RN - 07/25/2023 3499 EDT GAVIN Note Name:Della Browning SHIFT UPDATE Data: Arrived to unit to assess patient for IV access. Patient was noted by previous staff to be a difficult stick. Action: Patient assessed, found to have various accessible veins on their right forearm. Veins assessed through US were compressible and appropriate for PIV placement. Response: No PIV was placed at this time, as patient has no scheduled IV medication orders. PrimaryRN notified and was agreeable to not accessing at this time. * Melinda Lassiter, PT - 07/25/2023 1419 EDT [facility] Therapy [facility] Physical Therapy Contact Note Date of Service: 07/25/2023 PT attempted x 2 to see Ms Browning today; she was sleeping soundly both times. Per chart she had wound vac changed this afternoon, so PT did not attempt to wake her. Anticipate she is ready to attempt leander talib transfer bed to chair with 2 assist. PT will follow up early next week. Melinda Lassiter PT 07/25/2023 14:19 * Elsa Beckford, OT - 07/25/2023 1401 EDT [facility] Occupational Therapy Contact Note Date of Service: 07/25/2023 OT referral received and chart reviewed. Pt was unavailable d/t having bedside wound vac change. Will follow-up as able for OT initial evaluation. Elsa Beckford OT, 07/25/2023, 14:01 * Nabila English NP - 07/25/2023 1100 EDT Endocrine/Diabetes Follow Up/Progress Note Admit Date: 06/13/2023 Hospital day LOS: 42 days Date of Service: 07/25/2023 Reason for Following: T2DM Inpatient glycemic management, Necrotizing Fasciitis HPI: 52 y/o F with PMH of T2 DM, HTN, Anxiety/Depression, admitted via ER with R Gluteal Necrotizing Fasciitis 06/12, complicated by Post-operative bradycardic arrest x2 early in hospital course, suspected heart block vs vagal event. Recovered normal cardiac function, EP cards signed off and has hadpersistent respiratory complications. She has undergone serial washouts/debridements and wound vac placements. Subjective: Reports her appetite is consistently good. Eats majority or all the food served on her tray. Says they plan to perform bedside debridement later this AM. Diabetes History: Onset: ~ 10-15 yr ago Control: A1C 8.2 on 06/13 Complications: Peripheral Neuropathy, infected wound Home Regimen: On no meds at home Says previously she had taken insulin Tries to watch diet SBGM and Self Care: Stopped taking FS Current Diet: Regular (added Consistent Carb) Social Information: Single, Lives in [facility], has male partner. 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 Unsure of family history maybe grandparents w DM Regular Diabetes Provider: PCP ROS: Pain from wound right buttock Objective/Physical Exam: VS: BP: 109/54 Pulse: 100 Heart Rate: 82 BPM Resp: 16 Temp: 36.8 ??C (98.3 ??F) SpO2: 100 % O2 Flow Rate (L/min): 0 l/min O2 Device: None FIO2 %: 30 % Weight: Weight : 82.8 kg (182 lb 8.7 oz) Body mass index is 32.34 kg/m??. Food Intake: DIET REGULAR Consistent Carb added Activity:bedrest Exam: A/O x4 On RA Breathing unlabored. There is no pedal edema Wound vac, Vuong (Miquel Urine), and Rectal tube in place Data Review: Labs: Recent Labs 07/22/23 1126 07/22/23 1809 07/22/23 2241 07/23/23 0923 07/23/23 1256 07/23/23 1701 07/23/23 2035 07/24/23 0753 07/24/23 1137 07/24/23 1809 07/24/23 2046 07/25/23 0648 GLUCOSEPOC 128* 139* 179* 134* 150* 211* 164* 173* 150* 133* 142* 131* Lab Results Component Value Date HGBA1C 8.2 (H) 06/14/2023 Lab Results Component Value Date SERGLU 119 (H) 07/25/2023 NA 135 (L) 07/25/2023 K 3.9 07/25/2023 CL 102 07/25/2023 CO2 21 (L) 07/25/2023 BUN 18 07/25/2023 CREATININE 0.49 (L) 07/25/2023 CALCIUM 9.3 07/25/2023 Assessment 52 y/o F with 10-15 yr H/O T2 DM, manages with dietary measures, A1C is uncontrolled. Has PMH of HTN, Anxiety/Depression, admitted via ER with R Gluteal Necrotizing Fasciitis 06/12, complicated by Post-operative bradycardic arrest x2 early in hospital course, suspected heart block vs vagal event. Recovered normal cardiac function, EP cards signed off and has had persistent respiratory complications. She has undergone serial washouts/debridements and wound vac placements. Renal function WNL Appetite is good. Wound debridement/wound vac change now done at bedside. Blood sugar stable overnight, quite flat post meal. Will continue basal insulin at current dosing, lower aspart slightly. Plan: 1. Lantus: Continue 46 units once daily 2. Aspart: Lower slightly, Give 7 units if patient eats entire meal, and 4 units if patient eats 50% of meal, Hold if NPO 3. Aspart SSI: Dosing regimen weight between 76-100 kg 4. Aspart HS: 5 units at HS if BG > 250 and recheck BG at midnight 5. FS: AC/HS/PRN 6. Pt will benefit from Diabetes education as likely will need to discharge on insulin 7. Consider introduction of non-insulin agents (GLP1/SGLT2) as adjunct therapy to insulin, once closer to discharge. Also consider use of CGM 8. Will continue to follow with you. Discharge Plan: TBD Nabila English NP 07/25/2023 11:00 * Ayden Ackerman RD - 07/24/2023 1304 EDT Images from the original note were not included. Nutrition Assessment Note: Reassessment BACKGROUND DATA Della Browning is a 52 y.o. female admitted for Necrotizing fasciitis ([facility]) S/p debridement x2 at OSH and s/p debridement at [facility] on 06/14. Post- operative bradycardic arrest x2 early in hospital course, suspected heart block vs vagal event. Recovered normal cardiac function. 07/02 required transfer to SICU for hypoxic respiratory failure secondary to atelectasis/mucous plugging. Intubated for bronchoscopy, now extubated and stable on nasal cannula. Doing well with respiratory therapy. Undergoing local wound care and serial debridements, as well as pulmonary toilet. PMH: HTN, T2DM. -Tiff Aviles MD 07/23/23 Recent Clinical Events: Wound vac change 07/23 Subjective: Pt reports eating is going well and is ordering protein foods for healing. States she has meat loafordered for lunch and is drinking the Boost glucose control w/ every meal. She had no follow up nutrition questions or concerns today. Averaging 75-100% meals TID. Current Nutrition Orders: Regular - consistent carbohydrate Menu assist Boost Glucose Control TID Objective Nutrition Focused Physical Exam Subcutaneous Fat Assessment Orbital Region: Well-nourished (06/14/23 1520) Cheek Region: Well-nourished (06/14/23 1520) Upper Arm Region: Well-nourished (06/14/23 1520) Midaxillary Line: Not assessed (06/14/23 1520) Muscle Mass Assessment Congregation Region: Well-nourished (06/14/23 1520) Clavicle Region: Well-nourished (06/14/23 1520) Shoulder/Acromion/Clavicle Region: Well-nourished (06/14/23 1520) Scapula Region: Not assessed (06/14/23 1520) Hand Region: Not assessed (06/14/23 1520) Thigh/Patellar Region: Not assessed (06/14/23 1520) Calf Region: Not assessed (06/14/23 1520) NFPE Assessment Summary of Fat Wasting: No significant evidence of wasting (06/14/23 1520) Summary of Muscle Wasting: No significant evidence of wasting (06/14/23 152) Physical Findings: Net IO Since Admission: -53,705.28 mL [07/24/23 1304] Digestive Systems: Last BM 07/22 Dentition: Teeth: Missing teeth per flowsheets Edema: trace RLE/LLE Skin: dry, edematous Allergies on file: Aspirin, Cymbalta [duloxetine], Lyrica [pregabalin], and Penicillins Anthropometrics: Height: 160 cm (63) BMI: Body mass index is 32.34 kg/m??. Weight Change: wt down about 4 kg since admission (4.6%) over 1x month, not clinically significant Weights Filed This Admission 06/14/23 0000 06/19/23 0900 06/30/23 0605 07/11/23 1728 Weight: 86.2 kg (190 lb) 86.2 kg (190 lb) 92.2 kg (203 lb 4.2 oz) 82.6 kg (182 lb 1.6 oz) 07/15/23 1240 07/17/23 0600 Weight: 86.2 kg (190 lb 0.6 oz) 82.8 kg (182 lb 8.7 oz) Wt Readings from Last 6 Encounters: 07/17/23 82.8 kg (182 lb 8.7 oz) Pertinent Medications: Current Facility-Administered Medications Medication Route Frequency acetaminophen (TYLENOL) tablet 1,000 mg oral Q6H PRN albuterol inhaler 180 mcg inhalation Q4H PRN alteplase (CATHFLO ACTIVASE) injection 2 mg intercatheter PRN amLODIPine (NORVASC) tablet 10 mg oral DAILY ascorbic acid (vitamin C) (VITAMIN C) tablet 250 mg oral DAILY cloNIDine (CATAPRES) 0.2 mg/24 hr patch 1 Patch transdermal WEEKLY dextrose 50 % solution 12.5 g intravenous PRN docusate sodium (COLACE) capsule 200 mg oral BID enoxaparin (LOVENOX) injection 40 mg subcutaneous DAILY furosemide (LASIX) tablet 40 mg oral DAILY glucagon injection 1 mg intramuscular PRN insulin aspart U-100 (NOVOLOG FLEXPEN) injection 4-8 Units subcutaneous TID WC insulin aspart U-100 [...] LORazepam (ATIVAN) tablet 0.5 mg oral BID PRN melatonin tablet 6 mg oral QHS methocarbamoL (ROBAXIN) tablet 1,000 mg oral QID lzkkaeua-seq-mfjv fum-folic ac 7.5 mg iron-400 mcg tablet 1 Tablet oral DAILY naloxone (NARCAN) injection 0.1 mg intravenous PRN nicotine (NICODERM CQ) 21 mg/24 hr patch 1 Patch transdermal DAILY oxyCODONE (ROXICODONE) immediate release tablet 5 mg oral Q4H PRN Or oxyCODONE (ROXICODONE) immediate release tablet 10 mg oral Q4H PRN papain-alpha amylase-cellulase (CLOG ZAPPER) 2-5 mL feeding tube PRN QUEtiapine (SEROQUEL) tablet 25 mg oral QHS senna (SENOKOT) tablet 2 Tablet oral QHS sodium chloride soluble tablet 1,000 mg oral TID thiamine (VITAMIN B1) tablet 100 mg oral DAILY Pertinent Labs: Lab Results Component Value Date WBC 7.68 07/22/2023 RBC 3.11 (L) 07/22/2023 HGB 8.9 (L) 07/22/2023 HCT 26.7 (L) 07/22/2023 MCV 86 07/22/2023 MCH 28.6 07/22/2023 PLT 390 (H) 07/22/2023 NA 135 (L) 07/22/2023 K 4.6 07/22/2023 CL 102 07/22/2023 CO2 23 07/22/2023 BUN 15 07/22/2023 CREATININE 0.42 (L) 07/22/2023 CALCIUM 9.4 07/22/2023 MG 1.7 07/22/2023 PHOS 6.5 (H) 07/22/2023 Lab Results Component Value Date/Time HGBA1C 8.2 (H) 06/14/2023 04:55 GLUCOSEPOC 150 (H) 07/24/2023 11:37 GLUCOSEPOC 173 (H) 07/24/2023 07:53 GLUCOSEPOC 164 (H) 07/23/2023 20:35 GLUCOSEPOC 211 (H) 07/23/2023 17:01 GLUCOSEPOC 150 (H) 07/23/2023 12:56 Lab Results Component Value Date/Time TRIG 335 (H) 06/18/2023 04:32 Estimated Nutrition Needs: MSJ x1.3 for wound healing (using 82.6 kg) = 1830 kcals/day 2.0 g/kg protein (using 52.4 kg IBW) = 99-105 g protein/day Estimated Nutrition Intake: 100% meals TID + Boost GC TID ASSESSMENT: Pt is eating well from 3 meals and 3 boost glucose control supplements daily. She did not have any follow up questions today regarding consistent carb diet. Knows to have good protein intake for wound healing. Wt is holding out closer to 82.8 kg though will need updated wts to trend. Currently not clinicallysignificant at this time. Receiving Vitamin C 250 mg (start 07/05) and oral thiamine 100 mg (start 06/26). No longer needing Vitamin C as pt received for at least 10 days and eating adequately. Vitamin D lab is ordered for next set of lab draws. Blood glucose mostly trends in 150-170s, similar to last RD visit. Nutrition Risk Level: Moderate (2) MEDICAL NUTRITION THERAPY - UPDATED PLAN Discontinue Vitamin C supplement Awaiting Vitamin D lab results to assess supplementation need Continue consistent carb diet order w/ glucose control supplements Monitor wt trends, BMs, labs, I/Os, and skin AYDEN ACKERMAN RD, CD, CNSC (Call PAS or use [employer] ([email or web address]) to page RD covering this unit) * Nabila English NP - 07/24/2023 1240 EDT Endocrine/Diabetes Follow Up/Progress Note Admit Date: 06/13/2023 Hospital day LOS: 41 days Date of Service: 07/24/2023 Reason for Following: T2DM Inpatient glycemic management, Necrotizing Fasciitis HPI: 52 y/o F with PMH of T2 DM, HTN, Anxiety/Depression, admitted via ER with R Gluteal Necrotizing Fasciitis 06/12, complicated by Post-operative bradycardic arrest x2 early in hospital course, suspected heart block vs vagal event. Recovered normal cardiac function, EP cards signed off and has hadpersistent respiratory complications. She has undergone serial washouts/debridements and wound vac placements. Subjective: Pt sitting up in Bed, ordering breakfast Diabetes History: Onset: ~ 10-15 yr ago Control: A1C 8.2 on 06/13 Complications: Peripheral Neuropathy, infected wound Home Regimen: On no meds at home Says previously she had taken insulin Tries to watch diet SBGM and Self Care: Stopped taking FS Current Diet: Regular (added Consistent Carb) Social Information: Single, Lives in [facility], has male partner. 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 Unsure of family history maybe grandparents w DM Regular Diabetes Provider: PCP ROS: Pain from wound right buttock Objective/Physical Exam: VS: BP: (!) 143/70 Pulse: 100 Heart Rate: 102 BPM Resp: 18 Temp: 36.7 ??C (98 ??F) SpO2: 100 % O2 Flow Rate (L/min): 0 l/min O2 Device: None FIO2 %: 30 % Weight: Weight : 82.8 kg (182 lb 8.7 oz) Body mass index is 32.34 kg/m??. Food Intake: DIET REGULAR Activity:bedrest Exam: A/O x4 On RA Breathing unlabored. There is no pedal edema Wound vac, Vuong, and Rectal tube in place Data Review: Labs: Recent Labs 07/21/23 1742 07/21/23 2123 07/22/23 0725 07/22/23 1126 07/22/23 1809 07/22/23 2241 07/23/23 0923 07/23/23 1256 07/23/23 1701 07/23/23 203407/24/23 0753 07/24/23 1137 GLUCOSEPOC 102* 125* 147* 128* 139* 179* 134* 150* 211* 164* 173* 150* Lab Results Component Value Date HGBA1C 8.2 (H) 06/14/2023 Lab Results Component Value Date SERGLU 140 (H) 07/22/2023 NA 135 (L) 07/22/2023 K 4.6 07/22/2023 CL 102 07/22/2023 CO2 23 07/22/2023 BUN 15 07/22/2023 CREATININE 0.42 (L) 07/22/2023 CALCIUM 9.4 07/22/2023 Assessment 52 y/o F with 10-15 yr H/O T2 DM, manages with dietary measures, A1C is uncontrolled. Has PMH of HTN, Anxiety/Depression, admitted via ER with R Gluteal Necrotizing Fasciitis 06/12, complicated by Post-operative bradycardic arrest x2 early in hospital course, suspected heart block vs vagal event. Recovered normal cardiac function, EP cards signed off and has had persistent respiratory complications. She has undergone serial washouts/debridements and wound vac placements. Renal function WNL AM FS mildly elevated. Will increase Lantus slightly, continue current doses of aspart, and follow blood sugars. Plan: 1. Lantus: Increase to 46 units once daily 2. Aspart: Give 8 units if patient eats entire meal, and 4 units if patient eats 50% of meal, Hold if NPO 3. Aspart SSI: Dosing regimen weight between 76-100 kg BG Units 66-140 0 141-180 2 181-210 3 211-250 5 251-299 7 > 299 11 4. Aspart HS: 5 units at HS if BG > 250 and recheck BG at midnight 5. FS: AC/HS/PRN 6. Pt will benefit from Diabetes education as likely will need to discharge on insulin 7. Consider introduction of non-insulin agents (GLP1/SGLT2) as adjunct therapy to insulin, once closer to discharge, perhaps CGM 8. Will continue to follow with you. Discharge Plan: TBD Nabila English NP 07/24/2023 12:40 * Tiff Aviles MD - 07/24/2023 1101 EDT Acute Care Surgery Progress Note Service Date: 07/24/2023 Admit Date: 06/13/2023 23:23 Procedure(s): Nec fasc debridement x2 (OSH) Serial debridement, repair rectal injury (06/14) Additional debridement, washout (06/16) Additional debridement, washout, partial closure (06/18) Washout, wound vac change (06/25) Wound vac change (07/09) Chief Complaint: NSTI 24 Hour Events: -NAEON Subjective No acute concerns this AM, denies uncontrolled pain, wound vac holding suction Objective Vital Signs: Temp: [36.3 ??C (97.3 ??F)-36.8 ??C (98.3 ??F)] Heart Rate: [89 BPM-102 BPM] Pulse: [80-100] Pulse From Oximetry: [75 BPM-93 BPM] Resp: [16-18] BP: (135-166)/(65-80) SpO2: [95 %-100 %] I/O: Intake/Output Summary (Last 24 hours) at 07/24/2023 1101 Last data filed at 07/24/2023 1030 Gross per 24 hour Intake 2650 ml Output 3670 ml Net -1020 ml I&O By Type - 3 Shifts Including Current In: 1690 [P.O.:1690] Out: 3170 [Urine:2555; Drains:615] Physical Exam: Gen: resting, NAD Resp: unlabored on room air : Wound vac in position holding suction, serosanguinous output Psych: appropriate mood and affect Labs: CBC: Recent Labs 07/22/23 0651 WBC 7.68 RBC 3.11* HGB 8.9* HCT 26.7* MCV 86 MCH 28.6 MCHC 33.3 PLT 390* NEUTROABS 4.47 BMP: Recent Labs 07/22/23 0651 NA 135* K 4.6 CL 102 CO2 23 BUN 15 CREATININE 0.42* CALCIUM 9.4 MG 1.7 PHOS 6.5* Glucose: Glucose, POC Date/Time Value Ref Range Status 07/24/2023 07:53 173 (H) 70 - 100 mg/dL Final Assessment 52 y.o. female with a history of HTN and T2DM who presented as a transfer from [facility] on 06/12 with necrotizing fasciitis. S/p debridement x2 at OSH and s/p debridement at [facility] on 06/14.Post-operative bradycardic arrest x2 early in hospital course, suspected heart block vs vagal event. Recovered normal cardiac function, EP cards signed off. Had transferred to floor however on 07/02 required transfer to SICU for hypoxic respiratory failure secondary to atelectasis/mucous plugging. Intubated for bronchoscopy, now extubated and stable on nasal cannula. Doing well with respiratory therapy. Undergoing local wound care and serial debridements, as well as pulmonary toilet. Plan Principal Problem: Necrotizing fasciitis (HCC-CMS) Wound vac change today vs tomorrow pending acell availability Multimodal pain control RT for airway clearance Q4H, DuoNebs Consistent carbohydrate diet, appreciate Endocrine recs No abx for skin infection due to adequate source control Rectal tube for wound hygiene Nystatin powder BID ordered to perianal/gluteal cleft skin Ensure to cycle balloon daily as per nursing/floor protocol Lasix 40mg PO daily Continue bedtime seroquel 25 mg qhs Encourage aggressive I-S Labs every Saturday, Completed course of Flagyl for BV VTE prophylaxis: Pharmacologic Prophylaxis: Enoxaparin (Lovenox) 40 mg SQ daily Dispo: pending clinical course TIFF AVILES MD, PGY1 07/24/2023 11:01 ACS Pager #[phone] Associated attestation - Kyle Mars MD - 07/24/2023 1335 EDT Attending Note I examined/discussed this pt with the residents on 07/24/23 and agree with the above note Wound vacc change when acell arrives Kyle Mars MD [id number] * Nedra Armendariz RN - 07/23/2023 8849 EDT The Department of Case Management and Social Work Case Management Progress Note Patient Name Level of Care and Accommodation Code: Patient Class: Medically Ready: Y/N Della Browning Acute General Inpatient N Primary Dx: Decisional Capacity: Y/N Primary Support/ CareGiver: Advance Directive Necrotizing fasciitis ([facility]) Y N Advance Directives (For Healthcare) Healthcare Directive: No, patient does not have advance directive for healthcare treatment Information Provided on Healthcare Directives: Yes Information on Healthcare Directives Requested: No Disposition Information Appropriate to transfer back: Y/N Length of Stay (in days): Estimated Date of D/C: LTC Medicaid Status: N 40 End of next week (wk of 07/21) N Primary Care Provider: AR/ANDRES/SNF referred: Y/N Bed Offers: Y/N Escalated to Leadership: Y/N UNKNOWN,PROVIDER N N N Mobility Level: Recommended D/C Location Payor: Bedside Mobility Assessment Tool (BMAT) Bedrest or non-weight bearing orders?: No Assessment Level 1-Sit & Shake: Pass Assessment Level 2-Stretch & Point: Pass Assessment Level 3-Stand: Fail Assessment Level 4-Step: Fail Mobility level determined: Mobility Level 2 use lift (ceiling or portable), sliding aid/sheet, air-assisted sliding aid Number of caregivers reccommended: 2 Recommended Discharge Destination PT Recommended Discharge Destination: Subacute rehabilitation Pay[place] / Plan[place] /Product Type[place] GL / Barriers to Discharge N/a; remains medically acute for continued IP admission at [facility] Nec fasc debridement x2 (OSH) Serial debridement, repair rectal injury (06/14) Additional debridement, washout (06/16) Additional debridement, washout, partial closure (06/18) Wound vac application (06/21) Wound debridement with WV replacement in OR (07/09) Plan Level of Care: Acute/ IP Admission Point of Origin: [facility] Appropriate for Transfer Return vs Alternative Facility: N/a (reviewed with team 07/07, 07/10, week of 07/14, week of 07/22). Discharge plan/ Estimated date: TBD Insurance/ LTC Medicaid Status: Medicaid Support Network: anya Lezama ([phone]); Henrietta Hensley ([phone]) (CM Note 07/22:) Chart reviewed and updates received from Primary team in morning rounds. Patient with necrotizing fasciitis with Wound vac application. Last change 07/16 with next change planned for tomorrow 07/23. Receiving Acell application to wound bed. Remains medically acute for ongoing wound management at [facility]. (CM Note 07/16:) Patient with Wound Vac change this morning (please refer to KATY Duval progress note). Replaced WV; using acellular matrix overlying wound bed with vendor following on site. May require another week of WV prior to further determination of treatment care plan. Per ongoing discussions with Primary team, patient is Not a candidate for transfer return to sending hospital due to acuity of wound care requiring current services of ACS. Otherwise, CM is continuing to follow and will provide additional updates regarding any status changes as appropriate. (CM Note 07/14:) Chart reviewed and updates received this morning from Primary team in rounds. Plan for Wound Vac change this Sunday 07/16 with possible STSG dependent on assessment of wound bed. Patient asleep at time of CM visit. Discussed care with Nursing. Acute therapies following and currently recommending for short-term Sub Acute Rehab stay. Will listonce closer to medical readiness with more clear plan of care in place. Not currently getting up out of bed. WV, rectal tube, indwelling vuong cath intact. This CM will continue to follow and assist with coordination of disposition plan dependent on clinical course/ care team recommendations. Please reach out with any additional questions/ concerns, or acute changes in care plan in order toprovide patient with adequate supports. (CM Note 07/10:) Plan continues for WV reassessment on Friday 07/14 with possible skin graft pending following vac removal. Worked with PT today at bedside with eventual recommendations for a short-term Sub Acute Rehab stay. This CM will list for rehab facilities once closer to medical readiness for a transition to the next appropriate level of care. Will reassess clinical status Saturday following Wound Vac change. Please reach out with any additional questions/ concerns, or acute changes in care plan in order toprovide patient with adequate supports. E-Signature Nedra Armendariz RN CM [facility] Department (Available via MideoMe) * Melinda Lassiter, PT - 07/23/2023 1207 EDT Rehabilitation Therapy Acute Therapies [facility] Physical Therapy Encounter Note Date of Service: 07/23/2023 Subjective/Objective Subjective Let's try to sit up and I will finish my breakfast then Objective Intervention completed today: Time: 0930 Total treatment time: 1000 minutes. Timed code treatment minutes: 30 Vital signs were monitored and were stable throughout physical therapy session. Therapeutic exercises: bilateral lower extremity therapeutic exercises seated at edge of bed with feet support on stool The patient was instructed in and performed exercises below. Cued for paced breathing Sitting 10 active on right; active assist on left repititions Hip flexion Knee extension Patient was provided with verbal cues throughout session to reinforce proper sequencing, positioning and techniques to minimize compensatory movement patterns and maximize outcome performance. Therapeutic activity PT assisted pt to ashley socks and bilateral darco surgical shoes. Air bed placed on firm setting prior to mobilization. Supine ->sit towards left side; Close supervision to minimal assist; PT assisted with tube and line management; pt did not require physical assist. Head of bed elevated for supine to sit; . Sitting balance; feet placed on footstool for support (not able to reach floor with feet with shortstature) Supervision; with no need for reliance on UE propping support on bed rail/mattress SCOOTING Cued for positioning; feet pulled back underneath with good support on stool; forward trunk lean, cued for UE positioning -scoot side to side; pt able to scoot pelvis towards right side and left with minimal to assist to close supervision -scoot pelvis back on bed; minimal assist Pt amenable to remain seated at edge of bed; tray table placed in front with breakfast meal. Pt instructed to call for Nursing assist when finished breakfast for assist to lay back in bed; Call marroquin in reach Discussed progress with mobility; trial of leander mayers for sit to stand later this week Patient/Family Education: Topic: Activity pacing/Energy conservation Balance Bed mobility Breathing exercises Discharge planning Equipment use Exercise Positioning Precautions/protocol Role of therapy Safety Transfers Learner: patient Method: verbal and demonstration Barriers to Learning: none noted Outcome: needs practice and verbalized understanding Team Communication: Pt status discussed with Nursing prior to and at conclusion of session. Pt goals to sit at edge of bed with feet on stool for eating meals. Assessment/Plan Assessment Jacob Wilcox demonstrates improved activity tolerance and sitting balance. She was able to remain seated at edge of bed to eat breakfast at conclusion of PT session. She will require ongoing interdisciplinary therapies and is on the waiting list for Transition Rehab program in this setting.Anticipate will still need subacute rehab when medically ready for discharge from Acute setting. She would benefit from Occupational Therapy Consult at this time for self care and to help with left UE weakness/decreased motor control from likely stroke in March 2023 (pt did not seek medical support) Plan Continue per plan of care Recommended Discharge Destination: Sub-acute rehabilitation Recommended Discharge Services: Physical therapy at rehabilitation facility Recommended Equipment Needs: To be determined by next care provider Other recommendations: Occupational Therapy Primary Therapist: Pager: [phone] Melinda Lassiter PT 07/23/2023 12:07 * Carmen Vernon PALS SPECIALIST - 07/23/2023 1100 EDT Endocrine/Diabetes Follow Up/Progress Note Admit Date: 06/13/2023 Hospital day LOS: 40 days Date of Service: 07/23/2023 Reason for Following: T2DM Inpatient glycemic management, Necrotizing Fasciitis HPI: 52 y/o F with PMH of T2 DM, HTN, Anxiety/Depression, admitted via ER with R Gluteal Necrotizing Fasciitis 06/12, complicated by Post-operative bradycardic arrest x2 early in hospital course, suspected heart block vs vagal event. Recovered normal cardiac function, EP cards signed off and has hadpersistent respiratory complications. She has undergone serial washouts/debridements and wound vac placements. Subjective: pt sitting up on edge of bed, PT has just helped pt to this position, progress she says. She is eating breakfast, feels good this AM, Much better than yesterday Diabetes History: Onset: ~ 10-15 yr ago Control: A1C 8.2 on 06/13 Complications: Peripheral Neuropathy, infected wound Home Regimen: On no meds at home Says previously she had taken insulin Tries to watch diet SBGM and Self Care: Stopped taking FS Current Regimen: Lantus 30 units subcutaneous daily. Aspart SSI for weight 76- 100 Kg Current Diet: Regular (added Consistent Carb) Social Information: Single, Lives in [facility], has male partner. 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 Unsure of family history maybe grandparents w DM Regular Diabetes Provider: PCP ROS: Pain from wound right buttock Objective/Physical Exam: VS: BP: (!) 146/67 Pulse: 79 Heart Rate: 85 BPM Resp: 16 Temp: 36.6 ??C (97.9 ??F) SpO2: 97 % O2 Flow Rate (L/min): 0 l/min O2 Device: None FIO2 %: 30 % Weight: Weight : 82.8 kg (182 lb 8.7 oz) Body mass index is 32.34 kg/m??. Food Intake: DIET REGULAR Activity:bedrest Exam: Sleeping soundly Data Review: Labs: Recent Labs 07/20/23 1205 07/20/23 1812 07/20/23 1959 07/21/23 0752 07/21/23 1230 07/21/23 1742 07/21/23 2123 07/22/23 0725 07/22/23 1126 07/22/23 1809 07/22/23 2241 07/23/23 0923 GLUCOSEPOC 152* 171* 214* 248* 119* 102* 125* 147* 128* 139* 179* 134* Lab Results Component Value Date HGBA1C 8.2 (H) 06/14/2023 Lab Results Component Value Date SERGLU 140 (H) 07/22/2023 NA 135 (L) 07/22/2023 K 4.6 07/22/2023 CL 102 07/22/2023 CO2 23 07/22/2023 BUN 15 07/22/2023 CREATININE 0.42 (L) 07/22/2023 CALCIUM 9.4 07/22/2023 Assessment 52 y/o F with 10-15 yr H/O T2 DM, manages with dietary measures, A1C is uncontrolled. Has PMH of HTN, Anxiety/Depression, admitted via ER with R Gluteal Necrotizing Fasciitis 06/12, complicated by Post-operative bradycardic arrest x2 early in hospital course, suspected heart block vs vagal event. Recovered normal cardiac function, EP cards signed off and has had persistent respiratory complications. She has undergone serial washouts/debridements and wound vac placements. Renal function WNL Blood sugar 120 fasting this AM. Will continue her Lantus, and aspart today, BG trends stable Will continue to monitor and make adjustments as needed. Plan: 1. Lantus: Lantus 44 units once daily 2. Aspart: Inject 8 units if patient eats entire meal, inject 4 units if patient eats 50% of meal, Hold if NPO 3. Aspart SSI: Dosing regimen weight between 76-100 kg BG Units 66-140 0 141-180 2 181-210 3 211-250 5 251-299 7 > 299 11 4. Aspart HS: 5 units at HS if BG > 250 and recheck BG at midnight 5. FS: AC/HS/PRN 6. Pt will benefit from Diabetes education as likely will need to discharge on insulin 7. Consider introduction of non-insulin agents (GLP1/SGLT2) as adjunct therapy to insulin, once closer to discharge, perhaps CGM 8. Will continue to follow with you. Discharge Plan: TBD Carmen Vernon NP 07/23/2023 11:00 * Tiff Aviles MD - 07/23/2023 1013 EDT Acute Care Surgery Progress Note Service Date: 07/23/2023 Admit Date: 06/13/2023 23:23 Procedure(s): Nec fasc debridement x2 (OSH) Serial debridement, repair rectal injury (06/14) Additional debridement, washout (06/16) Additional debridement, washout, partial closure (06/18) Washout, wound vac change (06/25) Wound vac change (07/09) Chief Complaint: NSTI 24 Hour Events: -NAEON Subjective No acute concerns this AM, denies uncontrolled pain, wound vac holding suction Objective Vital Signs: Temp: [36.6 ??C (97.9 ??F)-37.2 ??C (99 ??F)] Heart Rate: [85 BPM] Pulse: [79-86] Pulse From Oximetry: [78 BPM-87 BPM] Resp: [16-18] BP: (102-148)/(57-75) SpO2: [97 %-100 %] I/O: Intake/Output Summary (Last 24 hours) at 07/23/2023 1013 Last data filed at 07/23/2023 0917 Gross per 24 hour Intake 1750 ml Output 4135 ml Net -2385 ml I&O By Type - 3 Shifts Including Current In: 820 [P.O.:720; Other:100] Out: 3385 [Urine:2575; Drains:810] Physical Exam: Gen: resting, NAD Resp: unlabored on room air : Wound vac in position holding suction, serosanguinous output Psych: appropriate mood and affect Labs: CBC: Recent Labs 07/22/23 0651 WBC 7.68 RBC 3.11* HGB 8.9* HCT 26.7* MCV 86 MCH 28.6 MCHC 33.3 PLT 390* NEUTROABS 4.47 BMP: Recent Labs 07/22/23 0651 NA 135* K 4.6 CL 102 CO2 23 BUN 15 CREATININE 0.42* CALCIUM 9.4 MG 1.7 PHOS 6.5* Glucose: Glucose, POC Date/Time Value Ref Range Status 07/23/2023 09:23 134 (H) 70 - 100 mg/dL Final Assessment 52 y.o. female with a history of HTN and T2DM who presented as a transfer from [facility] on 06/12 with necrotizing fasciitis. S/p debridement x2 at OSH and s/p debridement at [facility] on 06/14.Post-operative bradycardic arrest x2 early in hospital course, suspected heart block vs vagal event. Recovered normal cardiac function, EP cards signed off. Had transferred to floor however on 07/02 required transfer to SICU for hypoxic respiratory failure secondary to atelectasis/mucous plugging. Intubated for bronchoscopy, now extubated and stable on nasal cannula. Doing well with respiratory therapy. Undergoing local wound care and serial debridements, as well as pulmonary toilet. Plan Principal Problem: Necrotizing fasciitis (HCC-CMS) Wound vac change Saturday07/24/23 Multimodal pain control RT for airway clearance Q4H, DuoNebs Consistent carbohydrate diet, appreciate Endocrine recs No abx for skin infection due to adequate source control Rectal tube for wound hygiene Nystatin powder BID ordered to perianal/gluteal cleft skin Ensure to cycle balloon daily as per nursing/floor protocol Lasix 40mg PO daily Continue bedtime seroquel 25 mg qhs Encourage aggressive I-S Labs every Saturday, Completed course of Flagyl for BV VTE prophylaxis: Pharmacologic Prophylaxis: Enoxaparin (Lovenox) 40 mg SQ daily Dispo: pending clinical course TIFF AVILES MD, PGY1 07/23/2023 10:13 ACS Pager #[phone] Associated attestation - Kyle Mars MD - 07/23/2023 8931 EDT Attending Note I examined/discussed this pt with the residents on 07/23/23 and agree with the above note Wound vacc in place, change tomorrow with more acell application Kyle Mars MD [id number] * Brittani Rinaldi, DO - 07/22/2023 1148 EDT Endocrine/Diabetes Follow Up/Progress Note Admit Date: 06/13/2023 Hospital day LOS: 39 days Date of Service: 07/22/2023 Reason for Following: T2DM Inpatient glycemic management, Necrotizing Fasciitis HPI: 52 y/o F with PMH of T2 DM, HTN, Anxiety/Depression, admitted via ER with R Gluteal Necrotizing Fasciitis 06/12, complicated by Post-operative bradycardic arrest x2 early in hospital course, suspected heart block vs vagal event. Recovered normal cardiac function, EP cards signed off and has hadpersistent respiratory complications. She has undergone serial washouts/debridements and wound vac placements. Subjective: Patient just woke up, no new complaints. Taking sips of liquids this morning. Diabetes History: Onset: ~ 10-15 yr ago Control: A1C 8.2 on 06/13 Complications: Peripheral Neuropathy, infected wound Home Regimen: On no meds at home Says previously she had taken insulin Tries to watch diet SBGM and Self Care: Stopped taking FS Current Regimen: Lantus 30 units subcutaneous daily. Aspart SSI for weight 76- 100 Kg Current Diet: Regular (added Consistent Carb) Social Information: Single, Lives in [facility], has male partner. 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 Unsure of family history maybe grandparents w DM Regular Diabetes Provider: PCP ROS: Feels tired, remainder of ROS is unremarkable. Objective/Physical Exam: VS: BP: (!) 154/60 Pulse: 86 Heart Rate: 80 BPM Resp: 16 Temp: 36.8 ??C (98.2 ??F) SpO2: 100 % O2 Flow Rate (L/min): 0 l/min O2 Device: None FIO2 %: 30 % Weight: Weight : 82.8 kg (182 lb 8.7 oz) Body mass index is 32.34 kg/m??. Food Intake: DIET REGULAR Activity:bedrest Exam: Lying in bed, NAD, breathing comfortably. Data Review: Labs: Recent Labs 07/19/23 1709 07/19/23 2049 07/20/23 0713 07/20/23 1205 07/20/23 1812 07/20/23 1959 07/21/23 0752 07/21/23 1230 07/21/23 1742 07/21/23 2123 07/22/23 0725 07/22/23 1126 GLUCOSEPOC 145* 183* 141* 152* 171* 214* 248* 119* 102* 125* 147* 128* Lab Results Component Value Date HGBA1C 8.2 (H) 06/14/2023 Lab Results Component Value Date SERGLU 140 (H) 07/22/2023 NA 135 (L) 07/22/2023 K 4.6 07/22/2023 CL 102 07/22/2023 CO2 23 07/22/2023 BUN 15 07/22/2023 CREATININE 0.42 (L) 07/22/2023 CALCIUM 9.4 07/22/2023 Assessment 52 y/o F with 10-15 yr H/O T2 DM, manages with dietary measures, A1C is uncontrolled. Has PMH of HTN, Anxiety/Depression, admitted via ER with R Gluteal Necrotizing Fasciitis 06/12, complicated by Post-operative bradycardic arrest x2 early in hospital course, suspected heart block vs vagal event. Recovered normal cardiac function, EP cards signed off and has had persistent respiratory complications. She has undergone serial washouts/debridements and wound vac placements. Renal function WNL Blood sugar\s overall running well. Lantus dose was increased yesterday. Plan: 1. Lantus: 44 units once daily 2. Aspart: Inject 8 units if patient eats entire meal, inject 4 units if patient eats 50% of meal, Hold if NPO 3. Aspart SSI: Dosing regimen weight between 76-100 kg BG Units 66-140 0 141-180 2 181-210 3 211-250 5 251-299 7 > 299 11 4. Aspart HS: 5 units at HS if BG > 250 and recheck BG at midnight 5. FS: AC/HS/PRN 6. Pt will benefit from Diabetes education as likely will need to discharge on insulin 7. Consider introduction of non-insulin agents (GLP1/SGLT2) as adjunct therapy to insulin, once closer to discharge 8. Will continue to follow with you. Discharge Plan: TBD Brittani Rinaldi DO 07/22/2023 11:46 * Zahira Veras MD - 07/22/2023 1000 EDT Acute Care Surgery Progress Note Service Date: 07/22/2023 Admit Date: 06/13/2023 23:23 Procedure(s): Nec fasc debridement x2 (OSH) Serial debridement, repair rectal injury (06/14) Additional debridement, washout (06/16) Additional debridement, washout, partial closure (06/18) Washout, wound vac change (06/25) Wound vac change (07/09) Chief Complaint: NSTI 24 Hour Events: -NAEON Subjective No acute concerns this AM, denies uncontrolled pain, denies issues with wound vac overnight, overwhelmed by hospital stay Objective Vital Signs: Temp: [36.6 ??C (97.8 ??F)-36.8 ??C (98.3 ??F)] Heart Rate: [80 BPM] Pulse: [85] Pulse From Oximetry: [75 BPM-80 BPM] Resp: [16-20] BP: (102-160)/(57-76) SpO2: [94 %-100 %] I/O: Intake/Output Summary (Last 24 hours) at 07/22/2023 1504 Last data filed at 07/22/2023 1236 Gross per 24 hour Intake 2040 ml Output 5180 ml Net -3140 ml I&O By Type - 3 Shifts Including Current In: 2039 [P.O.:2039] Out: 3515 [Urine:3425; Drains:90] Physical Exam: Gen: resting, NAD Resp: unlabored on room air : Wound vac in position holding suction, serosanguinous output Psych: appropriate mood and affect Labs: CBC: Recent Labs 07/22/23 0651 WBC 7.68 RBC 3.11* HGB 8.9* HCT 26.7* MCV 86 MCH 28.6 MCHC 33.3 PLT 390* NEUTROABS 4.47 BMP: Recent Labs 07/22/23 0651 NA 135* K 4.6 CL 102 CO2 23 BUN 15 CREATININE 0.42* CALCIUM 9.4 Glucose: Glucose, POC Date/Time Value Ref Range Status 07/22/2023 11:26 128 (H) 70 - 100 mg/dL Final Assessment 52 y.o. female with a history of HTN and T2DM who presented as a transfer from [facility] on 06/12 with necrotizing fasciitis. S/p debridement x2 at OSH and s/p debridement at [facility] on 06/14.Post-operative bradycardic arrest x2 early in hospital course, suspected heart block vs vagal event. Recovered normal cardiac function, EP cards signed off. Had transferred to floor however on 07/02 required transfer to SICU for hypoxic respiratory failure secondary to atelectasis/mucous plugging. Intubated for bronchoscopy, now extubated and stable on nasal cannula. Doing well with respiratory therapy. Undergoing local wound care and serial debridements, as well as pulmonary toilet. Plan Principal Problem: Necrotizing fasciitis (HCC-CMS) Wound vac change Saturday07/23/23 Multimodal pain control RT for airway clearance Q4H, DuoNebs Consistent carbohydrate diet, appreciate Endocrine recs No abx for skin infection due to adequate source control Rectal tube for wound hygiene Nystatin powder BID ordered to perianal/gluteal cleft skin Ensure to cycle balloon daily as per nursing/floor protocol Lasix 40mg PO daily Continue bedtime seroquel 25 mg qhs Encourage aggressive I-S Labs every Saturday, Completed course of Flagyl for BV VTE prophylaxis: Pharmacologic Prophylaxis: Enoxaparin (Lovenox) 40 mg SQ daily Dispo: pending clinical course ZAHIRA VERAS MD, PGY1 07/22/2023 15:04 [facility] Pager #[phone] * Carmen Vernon, PALS SPECIALIST - 07/21/2023 1332 EDT Endocrine/Diabetes Follow Up/Progress Note Admit Date: 06/13/2023 Hospital day LOS: 38 days Date of Service: 07/21/2023 Reason for Following: T2DM Inpatient glycemic management, Necrotizing Fasciitis HPI: 52 y/o F with PMH of T2 DM, HTN, Anxiety/Depression, admitted via ER with R Gluteal Necrotizing Fasciitis 06/12, complicated by Post-operative bradycardic arrest x2 early in hospital course, suspected heart block vs vagal event. Recovered normal cardiac function, EP cards signed off and has hadpersistent respiratory complications. She has undergone serial washouts/debridements and wound vac placements. Subjective: pt is sleeping soundly Diabetes History: Onset: ~ 10-15 yr ago Control: A1C 8.2 on 06/13 Complications: Peripheral Neuropathy, infected wound Home Regimen: On no meds at home Says previously she had taken insulin Tries to watch diet SBGM and Self Care: Stopped taking FS Current Regimen: Lantus 30 units subcutaneous daily. Aspart SSI for weight 76- 100 Kg Current Diet: Regular (added Consistent Carb) Social Information: Single, Lives in [facility], has male partner. 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 Unsure of family history maybe grandparents w DM Regular Diabetes Provider: PCP ROS: Pain from wound right buttock Objective/Physical Exam: VS: BP: 129/61 Pulse: 86 Heart Rate: 76 BPM Resp: 18 Temp: 36.6 ??C (97.9 ??F) SpO2: 95 % O2 Flow Rate (L/min): 0 l/min O2 Device: None FIO2 %: 30 % Weight: Weight : 82.8 kg (182 lb 8.7 oz) Body mass index is 32.34 kg/m??. Food Intake: DIET REGULAR Activity:bedrest Exam: Sleeping soundly Data Review: Labs: Recent Labs 07/18/23 1820 07/18/23 2033 07/19/23 0730 07/19/23 1136 07/19/23 1709 07/19/23 2049 07/20/23 0713 07/20/23 1205 07/20/23 1812 07/20/23 1959 07/21/23 0752 07/21/23 1230 GLUCOSEPOC 161* 217* 171* 145* 145* 183* 141* 152* 171* 214* 248* 119* Lab Results Component Value Date HGBA1C 8.2 (H) 06/14/2023 Lab Results Component Value Date SERGLU 180 (H) 07/18/2023 NA 132 (L) 07/18/2023 K 4.2 07/18/2023 CL 99 07/18/2023 CO2 22 07/18/2023 BUN 14 07/18/2023 CREATININE 0.41 (L) 07/18/2023 CALCIUM 8.8 07/18/2023 Assessment 52 y/o F with 10-15 yr H/O T2 DM, manages with dietary measures, A1C is uncontrolled. Has PMH of HTN, Anxiety/Depression, admitted via ER with R Gluteal Necrotizing Fasciitis 06/12, complicated by Post-operative bradycardic arrest x2 early in hospital course, suspected heart block vs vagal event. Recovered normal cardiac function, EP cards signed off and has had persistent respiratory complications. She has undergone serial washouts/debridements and wound vac placements. Renal function WNL Blood sugar was elevated this AM to 248, will increase her Lantus, and upward trend through day yesterday, originally increased her aspart, but will resume lower aspart dosing for supper given lower prelunch trend today. Will continue to monitor and make adjustments as needed. Plan: 1. Lantus: Increase Lantus 44 units once daily 2. Aspart: Inject 8 units if patient eats entire meal, inject 4 units if patient eats 50% of meal, Hold if NPO 3. Aspart SSI: Dosing regimen weight between 76-100 kg BG Units 66-140 0 141-180 2 181-210 3 211-250 5 251-299 7 > 299 11 4. Aspart HS: 5 units at HS if BG > 250 and recheck BG at midnight 5. FS: AC/HS/PRN 6. Pt will benefit from Diabetes education as likely will need to discharge on insulin 7. Consider introduction of non-insulin agents (GLP1/SGLT2) as adjunct therapy to insulin, once closer to discharge 8. Will continue to follow with you. Discharge Plan: TBD Carmen Vernon NP 07/21/2023 13:32 * Tiff Aviles MD - 07/21/2023 0743 EDT Acute Care Surgery Progress Note Service Date: 07/21/2023 Admit Date: 06/13/2023 23:23 Procedure(s): Nec fasc debridement x2 (OSH) Serial debridement, repair rectal injury (06/14) Additional debridement, washout (06/16) Additional debridement, washout, partial closure (06/18) Washout, wound vac change (06/25) Wound vac change (07/09) Chief Complaint: NSTI 24 Hour Events: -NAEON -Endocrine adjusted regimen Subjective No acute concerns this AM, eating breakfast, no shortness of breath Objective Vital Signs: Temp: [36.3 ??C (97.4 ??F)-37.1 ??C (98.7 ??F)] Heart Rate: [75 BPM-80 BPM] Pulse: -- Pulse From Oximetry: [80 BPM-84 BPM] Resp: [16-18] BP: (112-145)/(58-76) SpO2: [94 %-98 %] I/O: Intake/Output Summary (Last 24 hours) at 07/21/2023 0743 Last data filed at 07/21/2023 0710 Gross per 24 hour Intake 2080 ml Output 3600 ml Net -1520 ml I&O By Type - 3 Shifts Including Current In: 920 [P.O.:920] Out: 1940 [Urine:1200; Drains:440; Stool:300] Physical Exam: Gen: resting, NAD Resp: unlabored on room air : Wound vac in position holding suction, serosanguinous output Psych: appropriate mood and affect Labs: CBC: Recent Labs 07/18/23 0820 WBC 7.06 RBC 3.01* HGB 8.6* HCT 25.8* MCV 86 MCH 28.6 MCHC 33.3 PLT 342 NEUTROABS 4.24 BMP: Recent Labs 07/18/23 0820 NA 132* K 4.2 CL 99 CO2 22 BUN 14 CREATININE 0.41* CALCIUM 8.8 Glucose: Glucose, POC Date/Time Value Ref Range Status 07/20/2023 19:59 214 (H) 70 - 100 mg/dL Final Assessment 52 y.o. female with a history of HTN and T2DM who presented as a transfer from [facility] on 06/12 with necrotizing fasciitis. S/p debridement x2 at OSH and s/p debridement at [facility] on 06/14.Post-operative bradycardic arrest x2 early in hospital course, suspected heart block vs vagal event. Recovered normal cardiac function, EP cards signed off. Had transferred to floor however on 07/02 required transfer to SICU for hypoxic respiratory failure secondary to atelectasis/mucous plugging. Intubated for bronchoscopy, now extubated and stable on nasal cannula. Doing well with respiratory therapy. Undergoing local wound care and serial debridements, as well as pulmonary toilet. Plan Principal Problem: Necrotizing fasciitis (HCC-CMS) Wound vac change Saturday07/23/23 Multimodal pain control RT for airway clearance Q4H, DuoNebs Consistent carbohydrate diet, appreciate Endocrine recs No abx for skin infection due to adequate source control Rectal tube for wound hygiene Nystatin powder BID ordered to perianal/gluteal cleft skin Ensure to cycle balloon daily as per nursing/floor protocol Lasix 40mg PO daily Continue bedtime seroquel 25 mg qhs Encourage aggressive I-S Labs every Saturday, Completed course of Flagyl for BV VTE prophylaxis: Pharmacologic Prophylaxis: Enoxaparin (Lovenox) 40 mg SQ daily Dispo: pending clinical course TIFF AVILES MD, PGY1 07/21/2023 7:43 [facility] Pager #[phone] Associated attestation - Kyle Mars MD - 07/21/20232027 EDT Attending note I examined/discussed this pt with the residents on 07/21/23 and agree with the above note Wound vacc in place, plan for change later this week Kyle Mars MD [id number] * Joan Menon MD - 07/20/2023 0968 EDT Acute Care Surgery Progress Note Service Date: 07/20/2023 Admit Date: 06/13/2023 23:23 Procedure(s): Nec fasc debridement x2 (OSH) Serial debridement, repair rectal injury (06/14) Additional debridement, washout (06/16) Additional debridement, washout, partial closure (06/18) Washout, wound vac change (06/25) Wound vac change (07/09) Chief Complaint: NSTI 24 Hour Events: -NAEON -Endocrine adjusted regimen Subjective Patient reports feeling well today, no issues breathing Objective Vital Signs: Temp: [36 ??C (96.8 ??F)-36.9 ??C (98.5 ??F)] Heart Rate: [84 BPM] Pulse: -- Pulse From Oximetry: [72 BPM-80 BPM] Resp: [18-20] BP: (112-138)/(58-71) SpO2: [97 %-100 %] I/O: Intake/Output Summary (Last 24 hours) at 07/20/2023 0958 Last data filed at 07/20/2023 0808 Gross per 24 hour Intake 1920 ml Output 2225 ml Net -305 ml I&O By Type - 3 Shifts Including Current In: 1440 [P.O.:1440] Out: 2225 [Urine:2125; Drains:100] Physical Exam: Gen: resting, NAD Resp: unlabored on room air : Wound vac in position holding suction, serosanguinous output Psych: appropriate mood and affect Labs: CBC: Recent Labs 07/18/23 0820 WBC 7.06 RBC 3.01* HGB 8.6* HCT 25.8* MCV 86 MCH 28.6 MCHC 33.3 PLT 342 NEUTROABS 4.24 BMP: Recent Labs 07/18/23 0820 NA 132* K 4.2 CL 99 CO2 22 BUN 14 CREATININE 0.41* CALCIUM 8.8 Glucose: Glucose, POC Date/Time Value Ref Range Status 07/20/2023 07:13 141 (H) 70 - 100 mg/dL Final Assessment 52 y.o. female with a history of HTN and T2DM who presented as a transfer from [facility] on 06/12 with necrotizing fasciitis. S/p debridement x2 at OSH and s/p debridement at [facility] on 06/14.Post-operative bradycardic arrest x2 early in hospital course, suspected heart block vs vagal event. Recovered normal cardiac function, EP cards signed off. Had transferred to floor however on 07/02 required transfer to SICU for hypoxic respiratory failure secondary to atelectasis/mucous plugging. Intubated for bronchoscopy, now extubated and stable on nasal cannula. Doing well with respiratory therapy. Undergoing local wound care and serial debridements, as well as pulmonary toilet. Plan Principal Problem: Necrotizing fasciitis (HCC-CMS) Wound vac change Saturday07/23/23 Multimodal pain control RT for airway clearance Q4H, DuoNebs Consistent carbohydrate diet, appreciate Endocrine recs No abx for skin infection due to adequate source control Rectal tube for wound hygiene Nystatin powder BID ordered to perianal/gluteal cleft skin Ensure to cycle balloon daily as per nursing/floor protocol Lasix 40mg PO daily Continue bedtime seroquel 25 mg qhs Encourage aggressive I-S Labs every Saturday, Completed course of Flagyl for BV VTE prophylaxis: Pharmacologic Prophylaxis: Enoxaparin (Lovenox) 40 mg SQ daily Dispo: pending clinical course ZAHIRA VERAS MD, PGY1 07/20/2023 9:58 ACS Pager #[phone] Attestation statement: I performed or was present during the cooper or critical portions of the visit and participated in the management of the patient. I agree with the findings and plan of care documented in the resident's/fellow's note. Joan Menon MD Acute Care Surgery Pager #[phone] 07/20/23 * Nabila English NP - 07/19/2023 1304 EDT Endocrine/Diabetes Follow Up/Progress Note Admit Date: 06/13/2023 Hospital day LOS: 36 days Date of Service: 07/19/2023 Reason for Following: T2DM Inpatient glycemic management, Necrotizing Fasciitis Recent Events: 52 y/o F with PMH of T2 DM, HTN, Anxiety/Depression, admitted via ER with R Gluteal Necrotizing Fasciitis 06/12, complicated by Post-operative bradycardic arrest x2 early in hospital course, suspected heart block vs vagal event. Recovered normal cardiac function, EP cards signed off and has had persistent respiratory complications. She has undergone serial washouts/debridements and wound vac placements. Subjective: Sitting up in bed. Awake, says she ate all her breakfast this AM Diabetes History: Onset: ~ 10-15 yr ago Control: A1C 8.2 on 06/13 Complications: Peripheral Neuropathy, infected wound Home Regimen: On no meds at home Says previously she had taken insulin Tries to watch diet SBGM and Self Care: Stopped taking FS Current Diet: Regular (added Consistent Carb) Social Information: Single, Lives in [facility], has male partner. 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 Unsure of family history maybe grandparents w DM Regular Diabetes Provider: PCP ROS: Pain from wound right buttock Objective/Physical Exam: VS: BP: 115/61 Pulse: 86 Heart Rate: 82 BPM Resp: 18 Temp: 36.8 ??C (98.3 ??F) SpO2: 100 % O2 Flow Rate (L/min): 0 l/min O2 Device: None FIO2 %: 30 % Weight: Weight : 82.8 kg (182 lb 8.7 oz) Body mass index is 32.34 kg/m??. Food Intake: DIET REGULAR Activity:bedrest Exam: Awake and more alert today. On RA breathing unlabored Has Vuong cath w good urine output, rectal tube, and wound vac in place Has had problems w leakage from wound vac. Data Review: Labs: Recent Labs 07/16/23 2131 07/17/23 0759 07/17/23 1147 07/17/23 1749 07/17/23 2024 07/18/23 0717 07/18/23 0836 07/18/23 1142 07/18/23 1820 07/18/23 2033 07/19/23 0730 07/19/23 1136 GLUCOSEPOC 201* 163* 207* 114* 244* 153* 195* 166* 161* 217* 171* 145* Lab Results Component Value Date HGBA1C 8.2 (H) 06/14/2023 Lab Results Component Value Date SERGLU 180 (H) 07/18/2023 NA 132 (L) 07/18/2023 K 4.2 07/18/2023 CL 99 07/18/2023 CO2 22 07/18/2023 BUN 14 07/18/2023 CREATININE 0.41 (L) 07/18/2023 CALCIUM 8.8 07/18/2023 Assessment 52 y/o F with 10-15 yr H/O T2 DM, manages with dietary measures, A1C is uncontrolled. Has PMH of HTN, Anxiety/Depression, admitted via ER with R Gluteal Necrotizing Fasciitis 06/12, complicated by Post-operative bradycardic arrest x2 early in hospital course, suspected heart block vs vagal event. Recovered normal cardiac function, EP cards signed off and has had persistent respiratory complications. She has undergone serial washouts/debridements and wound vac placements. Renal function WNL Pt more alert today. Answering questions. Blood sugar elevated, will increase lantus. Plan will be to go to rehab when medically ready. Plan: 1. Lantus: Increase to 40 once daily today 2. Aspart: 8 units if patient eats entire meal, and 4 units if patient eats 50% of meal, Hold if NPO 3. Aspart SSI: for 76-100 Kg 4. Give 5 units at HS if BG > 250 and recheck BG at midnight 5. FS: AC/HS/PRN 6. Pt will benefit from Diabetes education as likely will need to discharge on insulin (Has had both RN CDE and RD for DM Education) 7. Consider introduction of non-insulin agents (GLP1/SGLT2) as adjunct therapy to insulin, once closer to discharge 8. Will continue to follow with you. Discharge Plan: TBD Nabila English NP 07/19/2023 13:04 * Melinda Lassiter, PT - 07/19/2023 1227 EDT Rehabilitation Therapy Acute Therapies [facility] Physical Therapy Encounter Note Date of Service: 07/19/2023 Subjective/Objective Subjective I don't know what happened to my left foot and hand, but I haven't been able to move them well since last March. I was walking with a walker before I came to the hospital. Objective Intervention completed today: Time: 1008 Total treatment time: 52 minutes. Timed code treatment minutes: 52 Vital signs were monitored and were stable throughout physical therapy session. Therapeutic activity PT assisted pt to ashley socks and bilateral darco surgical shoes. Air bed placed on firm setting prior to mobilization. Supine <->sit towards left side; Close supervision to minimal assist; PT assisted with tube and line management; pt did not require physical assist. Head of bed elevated for supine to sit; bed flat for sit to supine. Sitting balance; feet placed on footstool for support (not able to reach floor with feet with shortstature) Supervision; initial heavy reliance on UE propping support on bed rail/mattress Pt progressed to static sitting with hands resting in lap Dynamic reach; pt reached outside base of support with additional forward and side trunk lean x 5 reps each UE; no loss of balance noted SCOOTING Cued for positioning; feet pulled back underneath with good support on stool; forward trunk lean, cued for UE positioning -scoot side to side; pt able to scoot pelvis towards right side and left with minimal to moderate assist; PT providing some lift to minimize any shear impact -scoot pelvis back on bed; minimal assist LE therapeutic exercise Right LE x 5 reps knee extension, hip flexion, ankle pumps; STRENGTH; ~3/5 not able to tolerate resistance Left LE x 5 reps knee extension, hip flexion, ankle pumps; STRENGTH; knee extension 2+/5, ankle df 1/5, pf at least 3/5, hip flexion less than 2/5 PT assisted pt to ashley left Lnard splint and reviewed rationale for use. PT notified pt that she has been placed on the waiting list for [facility] for increased frequency of therapy; notified of long waiting list. Pt laying on left side at conclusion of session; call marroquin and tray table in reach; Discussed goal for sitting at edge of bed with feet on stool for some meals. Patient/Family Education: Topic: Activity pacing/Energy conservation Balance Bed mobility Breathing exercises Exercise Positioning Role of therapy Safety Transfers Learner: patient Method: verbal and demonstration Barriers to Learning: none noted Outcome: needs practice and verbalized understanding Team Communication: Pt status discussed with Nursing at conclusion of session; Discussed pt not yet strong enough for standing; concern with sling placement and impact on rectal tube and wound vac placement with mechanical lift devices. Assessment/Plan Assessment Ms Browning demonstrates improved sitting balance and bed mobility. She continues to demonstrate weakness in left UE and LE and reports this has been since March but denies knowing why. Clinical presentation appears she may have experienced a stroke impacting motor control on left extremities. She is not strong enough to attempt standing; need clarification from team if able to use slings for mechanical lift given placement of wound vac, but she would benefit from being out of bed to chair. She will require ongoing interdisciplinary therapies and is on the waiting list for Transition Rehab program in this setting.Anticipate will still need subacute rehab when medically ready for discharge from Acute setting. Plan Continue per plan of care Recommended Discharge Destination: Sub-acute rehabilitation Recommended Discharge Services: Physical therapy at rehabilitation facility Recommended Equipment Needs: To be determined by next care provider Other recommendations: No other consults recommended at this time Primary Therapist: Pager: [phone] Melinda Lassiter, PT 07/19/2023 12:27 * Zahira Veras MD - 07/19/2023 1129 EDT Acute Care Surgery Progress Note Service Date: 07/19/2023 Admit Date: 06/13/2023 23:23 Procedure(s): Nec fasc debridement x2 (OSH) Serial debridement, repair rectal injury (06/14) Additional debridement, washout (06/16) Additional debridement, washout, partial closure (06/18) Washout, wound vac change (06/25) Wound vac change (07/09) Chief Complaint: NSTI 24 Hour Events: -NAEON -Wound vac reinforced 07/17 Subjective Patient reports feeling well today, no issues breathing Objective Vital Signs: Temp: [36 ??C (96.8 ??F)-36.8 ??C (98.3 ??F)] Heart Rate: [82 BPM-86 BPM] Pulse: -- Pulse From Oximetry: [74 BPM-84 BPM] Resp: [18-22] BP: (115-150)/(54-75) SpO2: [99 %-100 %] I/O: Intake/Output Summary (Last 24 hours) at 07/19/2023 1129 Last data filed at 07/19/2023 0955 Gross per 24 hour Intake 1560 ml Output 4425 ml Net -2865 ml I&O By Type - 3 Shifts Including Current In: 1560 [P.O.:1560] Out: 3550 [Urine:2975; Drains:575] Physical Exam: Gen: resting, NAD Resp: unlabored on room air : Wound vac in position holding suction, serosanguinous output Psych: appropriate mood and affect Labs: CBC: Recent Labs 07/18/23 0820 WBC 7.06 RBC 3.01* HGB 8.6* HCT 25.8* MCV 86 MCH 28.6 MCHC 33.3 PLT 342 NEUTROABS 4.24 BMP: Recent Labs 07/18/23 0820 NA 132* K 4.2 CL 99 CO2 22 BUN 14 CREATININE 0.41* CALCIUM 8.8 Glucose: Glucose, POC Date/Time Value Ref Range Status 07/19/2023 07:30 171 (H) 70 - 100 mg/dL Final Assessment 52 y.o. female with a history of HTN and T2DM who presented as a transfer from [facility] on 06/12 with necrotizing fasciitis. S/p debridement x2 at OSH and s/p debridement at [facility] on 06/14.Post-operative bradycardic arrest x2 early in hospital course, suspected heart block vs vagal event. Recovered normal cardiac function, EP cards signed off. Had transferred to floor however on 07/02 required transfer to SICU for hypoxic respiratory failure secondary to atelectasis/mucous plugging. Intubated for bronchoscopy, now extubated and stable on nasal cannula. Doing well with respiratory therapy. Undergoing local wound care and serial debridements, as well as pulmonary toilet. Plan Principal Problem: Necrotizing fasciitis (HCC-CMS) Wound vac change Saturday07/23/23 Multimodal pain control RT for airway clearance Q4H, DuoNebs Consistent carbohydrate diet, appreciate Endocrine recs No abx for skin infection due to adequate source control Rectal tube for wound hygiene Nystatin powder BID ordered to perianal/gluteal cleft skin Ensure to cycle balloon daily as per nursing/floor protocol Lasix 40mg PO daily Continue bedtime seroquel 25 mg qhs Encourage aggressive I-S Labs every Saturday, Completed course of Flagyl for BV VTE prophylaxis: Pharmacologic Prophylaxis: Enoxaparin (Lovenox) 40 mg SQ daily Dispo: pending clinical course ZAHIRA VERAS MD, PGY1 07/19/2023 11:29 ACS Pager #[phone] Associated attestation - Ramón Peraza MD - 07/22/2023 1608 EDT I saw and examined this patient with the residents and agree with the above note as it relates to the observations that were made and the treatment plan that was proposed. My specific comments follow: Satisfactory wound progress with VAC. Continue current care * Zahira Veras MD - 07/18/2023 1357 EDT Acute Care Surgery Progress Note Service Date: 07/18/2023 Admit Date: 06/13/2023 23:23 Procedure(s): Nec fasc debridement x2 (OSH) Serial debridement, repair rectal injury (06/14) Additional debridement, washout (06/16) Additional debridement, washout, partial closure (06/18) Washout, wound vac change (06/25) Wound vac change (07/09) Chief Complaint: NSTI 24 Hour Events: -NAEON -Wound vac change yesterday 07/16 -Issues overnight and during morning with leaking Subjective Feeling demoralized about how vac keeps leaking, denies fevers chills Objective Vital Signs: Temp: [36 ??C (96.8 ??F)-37 ??C (98.6 ??F)] Heart Rate: [85 BPM-89 BPM] Pulse: -- Pulse From Oximetry: [77 BPM-89 BPM] Resp: [16-18] BP: (116-139)/(56-70) SpO2: [98 %-100 %] I/O: Intake/Output Summary (Last 24 hours) at 07/18/2023 1357 Last data filed at 07/18/2023 1046 Gross per 24 hour Intake 2160 ml Output 2500 ml Net -340 ml I&O By Type - 3 Shifts Including Current In: 2160 [P.O.:216] Out: 2500 [Urine:2024; Drains:475] Physical Exam: Gen: resting, NAD Resp: unlabored on room air : Wound vac in position but not holding suction, sero sanguinous drainage at inferior lateral aspect lifting drape partially, reinforcement draping encircling rectal tube tenting up posing avenue for further leak Psych: appropriate mood and affect Incision/Dressing: to be changed today Labs: CBC: Recent Labs 07/18/23 0820 WBC 7.06 RBC 3.01* HGB 8.6* HCT 25.8* MCV 86 MCH 28.6 MCHC 33.3 PLT 342 NEUTROABS 4.24 BMP: Recent Labs 07/18/23 0820 NA 132* K 4.2 CL 99 CO2 22 BUN 14 CREATININE 0.41* CALCIUM 8.8 Glucose: Glucose, POC Date/Time Value Ref Range Status 07/18/2023 11:42 166 (H) 70 - 100 mg/dL Final Assessment 52 y.o. female with a history of HTN and T2DM who presented as a transfer from [facility] on 06/12 with necrotizing fasciitis. S/p debridement x2 at OSH and s/p debridement at [facility] on 06/14.Post-operative bradycardic arrest x2 early in hospital course, suspected heart block vs vagal event. Recovered normal cardiac function, EP cards signed off. Had transferred to floor however on 07/02 required transfer to SICU for hypoxic respiratory failure secondary to atelectasis/mucous plugging. Intubated for bronchoscopy, now extubated and stable on nasal cannula. Doing well with respiratory therapy. Undergoing local wound care and serial debridements, as well as pulmonary toilet. Reinforced vac with grayson's ring at rectum, and added additional lilypad at lateral aspect of black sponge creating aY system for improved suction. Plan Principal Problem: Necrotizing fasciitis (HCC-CMS) Wound vac change Sunday 07/16 Multimodal pain control RT for airway clearance Q4H, DuoNebs Consistent carbohydrate diet, appreciate Endocrine recs No abx for skin infection due to adequate source control Rectal tube for wound hygiene Nystatin powder BID ordered to perianal/gluteal cleft skin Ensure to cycle balloon daily as per nursing/floor protocol Lasix 40mg PO daily Continue bedtime seroquel 25 mg qhs Encourage aggressive I-S Labs every Saturday, Completed course of Flagyl for BV VTE prophylaxis: Pharmacologic Prophylaxis: Enoxaparin (Lovenox) 40 mg SQ daily Dispo: pending clinical course ZAHIRA VERAS MD, PGY1 07/18/2023 13:57 [facility] Pager #[phone] Associated attestation - Ramón Peraza MD - 07/19/2023 1154 EDT I saw and examined this patient with the residents and agree with the above note as it relates to the observations that were made and the treatment plan that was proposed. My specific comments follow: Satisfactory progress of wound with VAC therapy - continue * Nabila English NP - 07/18/2023 1245 EDT Endocrine/Diabetes Follow Up/Progress Note Admit Date: 06/13/2023 Hospital day LOS: 35 days Date of Service: 07/18/2023 Reason for Following: T2DM Inpatient glycemic management, Necrotizing Fasciitis Recent Events: 52 y/o F with PMH of T2 DM, HTN, Anxiety/Depression, admitted via ER with R Gluteal Necrotizing Fasciitis 06/12, complicated by Post-operative bradycardic arrest x2 early in hospital course, suspected heart block vs vagal event. Recovered normal cardiac function, EP cards signed off and has had persistent respiratory complications. She has undergone serial washouts/debridements and wound vac placements. Subjective: Pt asleep did not wake when Provider in room. Diabetes History: Onset: ~ 10-15 yr ago Control: A1C 8.2 on 06/13 Complications: Peripheral Neuropathy, infected wound Home Regimen: On no meds at home Says previously she had taken insulin Tries to watch diet SBGM and Self Care: Stopped taking FS Current Diet: Regular (added Consistent Carb) Social Information: Single, Lives in [facility], has male partner. 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 Unsure of family history maybe grandparents w DM Regular Diabetes Provider: PCP ROS: Pain from wound right buttock Objective/Physical Exam: VS: BP: 116/56 Pulse: 86 Heart Rate: 85 BPM Resp: 18 Temp: 36.3 ??C (97.3 ??F) SpO2: 100 % O2 Flow Rate (L/min): 0 l/min O2 Device: None FIO2 %: 30 % Weight: Weight : 82.8 kg (182 lb 8.7 oz) Body mass index is 32.34 kg/m??. Food Intake: DIET REGULAR Activity:bedrest Exam: Asleep and lying on Left side. On RA breathing unlabored Has Vuong cath w good urine output, rectal tube, and wound vac in place Data Review: Labs: Recent Labs 07/15/23 2031 07/16/23 0743 07/16/23 1135 07/16/23 1652 07/16/23 2131 07/17/23 0759 07/17/23 1147 07/17/23 1749 07/17/23 2024 07/18/23 0717 07/18/23 0836 07/18/23 1142 GLUCOSEPOC 194* 145* 158* 174* 201* 163* 207* 114* 244* 153* 195* 166* Lab Results Component Value Date HGBA1C 8.2 (H) 06/14/2023 Lab Results Component Value Date SERGLU 180 (H) 07/18/2023 NA 132 (L) 07/18/2023 K 4.2 07/18/2023 CL 99 07/18/2023 CO2 22 07/18/2023 BUN 14 07/18/2023 CREATININE 0.41 (L) 07/18/2023 CALCIUM 8.8 07/18/2023 Assessment 52 y/o F with 10-15 yr H/O T2 DM, manages with dietary measures, A1C is uncontrolled. Has PMH of HTN, Anxiety/Depression, admitted via ER with R Gluteal Necrotizing Fasciitis 06/12, complicated by Post-operative bradycardic arrest x2 early in hospital course, suspected heart block vs vagal event. Recovered normal cardiac function, EP cards signed off and has had persistent respiratory complications. She has undergone serial washouts/debridements and wound vac placements. Renal function WNL HS FS 244, Possibly related to Pt eating pattern. Fasting blood sugar continues to be mildly elevated. Will adjust insulin doses and follow glycemic response Plan: 1. Lantus: Increase to 38 once daily today 2. Aspart: 8 units if patient eats entire meal, and 4 units if patient eats 50% of meal, Hold if NPO 3. Aspart SSI: for 76-100 Kg 4. Give 5 units at HS if BG > 250 and recheck BG at midnight 5. FS: AC/HS/PRN 6. Pt will benefit from Diabetes education as likely will need to discharge on insulin (Has had both RN CDE and RD for DM Education) 7. Consider introduction of non-insulin agents (GLP1/SGLT2) as adjunct therapy to insulin, once closer to discharge 8. Will continue to follow with you. Discharge Plan: TBD Nabila English NP 07/18/2023 12:45 * Nabila English NP - 07/17/2023 1424 EDT Endocrine/Diabetes Follow Up/Progress Note Admit Date: 06/13/2023 Hospital day LOS: 34 days Date of Service: 07/17/2023 Reason for Following: T2DM Inpatient glycemic management, Necrotizing Fasciitis HPI: 52 y/o F with PMH of T2 DM, HTN, Anxiety/Depression, admitted via ER with R Gluteal Necrotizing Fasciitis 06/12, complicated by Post-operative bradycardic arrest x2 early in hospital course, suspected heart block vs vagal event. Recovered normal cardiac function, EP cards signed off and has hadpersistent respiratory complications. She has undergone serial washouts/debridements and wound vac placements. Subjective: Says they gave her pain medication this AM to change the wound vac. Says she ate all ofher breakfast Diabetes History: Onset: ~ 10-15 yr ago Control: A1C 8.2 on 06/13 Complications: Peripheral Neuropathy, infected wound Home Regimen: On no meds at home Says previously she had taken insulin Tries to watch diet SBGM and Self Care: Stopped taking FS Current Regimen: Lantus 30 units subcutaneous daily. Aspart SSI for weight 76- 100 Kg Current Diet: Regular (added Consistent Carb) Social Information: Single, Lives in [facility], has male partner. 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 Unsure of family history maybe grandparents w DM Regular Diabetes Provider: PCP ROS: Pain from wound right buttock Objective/Physical Exam: VS: BP: 139/67 Pulse: 86 Heart Rate: 89 BPM Resp: 16 Temp: 36.9 ??C (98.5 ??F) SpO2: 100 % O2 Flow Rate (L/min): 0 l/min O2 Device: None FIO2 %: 30 % Weight: Weight : 82.8 kg (182 lb 8.7 oz) Body mass index is 32.34 kg/m??. Food Intake: DIET REGULAR Activity:bedrest Exam: Lying on Left side Drowsy but A/O On RA breathing unlabored Has Vuong cath w good urine output, rectal tube, and wound vac in place Data Review: Labs: Recent Labs 07/14/23 1648 07/14/23 2042 07/15/23 0716 07/15/23 1120 07/15/23 1704 07/15/23 2031 07/16/23 0743 07/16/23 1135 07/16/23 1652 07/16/23 2131 07/17/23 0759 07/17/23 1147 GLUCOSEPOC 172* 164* 150* 174* 188* 194* 145* 158* 174* 201* 163* 207* Lab Results Component Value Date HGBA1C 8.2 (H) 06/14/2023 Lab Results Component Value Date SERGLU 240 (H) 07/15/2023 NA 131 (L) 07/15/2023 K 4.1 07/15/2023 CL 96 07/15/2023 CO2 23 07/15/2023 BUN 14 07/15/2023 CREATININE 0.40 (L) 07/15/2023 CALCIUM 8.5 07/15/2023 Assessment 52 y/o F with 10-15 yr H/O T2 DM, manages with dietary measures, A1C is uncontrolled. Has PMH of HTN, Anxiety/Depression, admitted via ER with R Gluteal Necrotizing Fasciitis 06/12, complicated by Post-operative bradycardic arrest x2 early in hospital course, suspected heart block vs vagal event. Recovered normal cardiac function, EP cards signed off and has had persistent respiratory complications. She has undergone serial washouts/debridements and wound vac placements. Renal function WNL Fasting blood sugar mildly elevated and blood sugar went up prior to lunch. Will increase mealtime aspart starting at lunch and Lantus to be increased tomorrow. Plan: 1. Lantus: Lantus 35 units given today. Increase to 38 once daily tomorrow 2. Aspart: Increase from 6 to 8 units if patient eats entire meal, and from 3 to 4 units if patienteats 50% of meal, Hold if NPO 3. Aspart SSI: for 76-100 Kg 4. 5 units at HS if BG > 250 and recheck BG at midnight 5. FS: AC/HS/PRN 6. Pt will benefit from Diabetes education as likely will need to discharge on insulin (Has had both RN CDE and RD for DM Education) 7. Consider introduction of non-insulin agents (GLP1/SGLT2) as adjunct therapy to insulin, once closer to discharge 8. Will continue to follow with you. Discharge Plan: TBD Nabila English NP 07/17/2023 14:24 * Nedra Armendariz RN - 07/17/2023 1234 EDT The Department of Case Management and Social Work Case Management Progress Note Patient Name Level of Care and Accommodation Code: Patient Class: Medically Ready: Y/N Della Browning Acute General Inpatient N Primary Dx: Decisional Capacity: Y/N Primary Support/ CareGiver: Advance Directive Necrotizing fasciitis ([facility]-CMS) Y N Advance Directives (For Healthcare) Healthcare Directive: No, patient does not have advance directive for healthcare treatment Information Provided on Healthcare Directives: Yes Information on Healthcare Directives Requested: No Disposition Information Appropriate to transfer back: Y/N Length of Stay (in days): Estimated Date of D/C: LTC Medicaid Status: N 34 End of next week (wk of 07/21) N Primary Care Provider: AR/ANDRES/SNF referred: Y/N Bed Offers: Y/N Escalated to Leadership: Y/N UNKNOWN,PROVIDER N N N Mobility Level: Recommended D/C Location Payor: Bedside Mobility Assessment Tool (BMAT) Bedrest or non-weight bearing orders?: No Assessment Level 1-Sit & Shake: Pass Assessment Level 2-Stretch & Point: Pass Assessment Level 3-Stand: Fail Assessment Level 4-Step: Fail Mobility level determined: Mobility Level 2 use lift (ceiling or portable), sliding aid/sheet, air-assisted sliding aid Number of caregivers reccommended: 2 Recommended Discharge Destination PT Recommended Discharge Destination: Subacute rehabilitation Payor: [place] / Plan[place] /Product Type: [place] / Barriers to Discharge N/a; remains medically acute for continued IP admission at [facility] Nec fasc debridement x2 (OSH) Serial debridement, repair rectal injury (06/14) Additional debridement, washout (06/16) Additional debridement, washout, partial closure (06/18) Wound vac application (06/21) Wound debridement with WV replacement in OR (07/09) Plan Level of Care: Acute/ IP Admission Point of Origin: [facility] Appropriate for Transfer Return vs Alternative Facility: N/a (reviewed with team 07/07, 07/10, week of 07/14) Discharge plan/ Estimated date: TBD Insurance/ LTC Medicaid Status: Medicaid Support Network: anya Lezama ([phone]); Henrietta Hensley ([phone]) (CM Note 07/16:) Patient with Wound Vac change this morning (please refer to KATY Duval progress note). Replaced WV; using acellular matrix overlying wound bed with vendor following on site. May require another week of WV prior to further determination of treatment care plan. Per ongoing discussions with Primary team, patient is Not a candidate for transfer return to sending hospital due to acuity of wound care requiring current services of ACS. Otherwise, CM is continuing to follow and will provide additional updates regarding any status changes as appropriate. (CM Note 07/14:) Chart reviewed and updates received this morning from Primary team in rounds. Plan for Wound Vac change this Sunday 07/16 with possible STSG dependent on assessment of wound bed. Patient asleep at time of CM visit. Discussed care with Nursing. Acute therapies following and currently recommending for short-term Sub Acute Rehab stay. Will listonce closer to medical readiness with more clear plan of care in place. Not currently getting up out of bed. WV, rectal tube, indwelling vuong cath intact. This CM will continue to follow and assist with coordination of disposition plan dependent on clinical course/ care team recommendations. Please reach out with any additional questions/ concerns, or acute changes in care plan in order toprovide patient with adequate supports. (CM Note 07/10:) Plan continues for WV reassessment on Friday 07/14 with possible skin graft pending following vac removal. Worked with PT today at bedside with eventual recommendations for a short-term Sub Acute Rehab stay. This CM will list for rehab facilities once closer to medical readiness for a transition to the next appropriate level of care. Will reassess clinical status Saturday following Wound Vac change. Please reach out with any additional questions/ concerns, or acute changes in care plan in order toprovide patient with adequate supports. E-Signature Nedra Armendariz RN CM [facility] (Available via MideoMe) * Melinda Lassiter, PT - 07/17/2023 1151 EDT The Rehabilitation Therapy Acute Therapy [facility] Physical Therapy Contact Note Date of Service: 07/17/2023 PT met with Ms Browning at 11:30. She reports having wound dressing change this morning and requests PT return later this week as she is in too much pain to mobilize at this time. PT will follow up in the next 1-2 days Melinda Lassiter PT 07/17/2023 11:51 * Zahira Veras MD - 07/17/2023 1117 EDT Acute Care Surgery Progress Note Service Date: 07/17/2023 Admit Date: 06/13/2023 23:23 Procedure(s): Nec fasc debridement x2 (OSH) Serial debridement, repair rectal injury (06/14) Additional debridement, washout (06/16) Additional debridement, washout, partial closure (06/18) Washout, wound vac change (06/25) Wound vac change (07/09) Chief Complaint: NSTI 24 Hour Events: NAEON Issues overnight and during morning with leaking/stool soiling wound vac, unclear how long off suction Subjective Resting comfortably Objective Vital Signs: Temp: [36.6 ??C (97.9 ??F)-37.1 ??C (98.8 ??F)] Heart Rate: [78 BPM-91 BPM] Pulse: -- Pulse From Oximetry: [78 BPM-91 BPM] Resp: [17-18] BP: (126-146)/(70-78) SpO2: [98 %-100 %] I/O: Intake/Output Summary (Last 24 hours) at 07/17/2023 1117 Last data filed at 07/17/2023 1038 Gross per 24 hour Intake 920 ml Output 4225 ml Net -3305 ml I&O By Type - 3 Shifts Including Current In: 920 [P.O.:920] Out: 4225 [Urine:3200; Drains:1025] Physical Exam: Gen: resting, NAD Resp: unlabored on room air Psych: appropriate mood and affect Incision/Dressing: to be changed today Labs: CBC: Recent Labs 07/15/23 0926 WBC 8.00 RBC 2.91* HGB 8.3* HCT 25.1* MCV 86 MCH 28.5 MCHC 33.1 PLT 387* NEUTROABS 5.42 BMP: Recent Labs 07/15/23 0926 NA 131* K 4.1 CL 96 CO2 23 BUN 14 CREATININE 0.40* CALCIUM 8.5 Glucose: Glucose, POC Date/Time Value Ref Range Status 07/17/2023 07:59 163 (H) 70 - 100 mg/dL Final Assessment 52 y.o. female with a history of HTN and T2DM who presented as a transfer from [facility] on 06/12 with necrotizing fasciitis. S/p debridement x2 at OSH and s/p debridement at [facility] on 06/14.Post-operative bradycardic arrest x2 early in hospital course, suspected heart block vs vagal event. Recovered normal cardiac function, EP cards signed off. Had transferred to floor however on 07/02 required transfer to SICU for hypoxic respiratory failure secondary to atelectasis/mucous plugging. Intubated for bronchoscopy, now extubated and stable on nasal cannula. Doing well with respiratory therapy. Undergoing local wound care and serial debridements, as well as pulmonary toilet. Wound vac change today Plan Principal Problem: Necrotizing fasciitis ([facility]) Wound vac change Sunday 07/16 Multimodal pain control RT for airway clearance Q4H, DuoNebs Consistent carbohydrate diet, appreciate Endocrine recs No abx for skin infection due to adequate source control Rectal tube for wound hygiene Nystatin powder BID ordered to perianal/gluteal cleft skin Ensure to cycle balloon daily as per nursing/floor protocol Lasix 40mg PO daily Continue bedtime seroquel 25 mg qhs Encourage aggressive I-S Labs every Saturday, Completed course of Flagyl for BV VTE prophylaxis: Pharmacologic Prophylaxis: Enoxaparin (Lovenox) 40 mg SQ daily Dispo: pending clinical course ZAHIRA VERAS MD, PGY1 07/17/2023 11:17 [facility] Pager #[phone] Associated attestation - Ramón Peraza MD - 07/19/2023 1152 EDT I saw and examined this patient with the residents and agree with the above note as it relates to the observations that were made and the treatment plan that was proposed. My specific comments follow: Satisfactory progress of wound with VAC therapy - continue * Carmen Vernon NP - 07/16/2023 1045 EDT Endocrine/Diabetes Follow Up/Progress Note Admit Date: 06/13/2023 Hospital day LOS: 33 days Date of Service: 07/16/2023 Reason for Following: T2DM Inpatient glycemic management, Necrotizing Fasciitis HPI: 52 y/o F with PMH of T2 DM, HTN, Anxiety/Depression, admitted via ER with R Gluteal Necrotizing Fasciitis 06/12, complicated by Post-operative bradycardic arrest x2 early in hospital course, suspected heart block vs vagal event. Recovered normal cardiac function, EP cards signed off and has hadpersistent respiratory complications. She has undergone serial washouts/debridements and wound vac placements. Subjective: pt awake, talkative laying on left side in bed, states her pain is better now than it was overnight. She has eaten breakfast, appetite is good. Diabetes History: Onset: ~ 10-15 yr ago Control: A1C 8.2 on 06/13 Complications: Peripheral Neuropathy, infected wound Home Regimen: On no meds at home Says previously she had taken insulin Tries to watch diet SBGM and Self Care: Stopped taking FS Current Regimen: Lantus 30 units subcutaneous daily. Aspart SSI for weight 76- 100 Kg Current Diet: Regular (added Consistent Carb) Social Information: Single, Lives in [facility], has male partner. 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 Unsure of family history maybe grandparents w DM Regular Diabetes Provider: PCP ROS: Pain from wound right buttock Objective/Physical Exam: VS: BP: 136/62 Pulse: 86 Heart Rate: 75 BPM Resp: 20 Temp: 36.8 ??C (98.3 ??F) SpO2: 99 % O2 Flow Rate (L/min): 0 l/min O2 Device: None FIO2 %: 30 % Weight: Weight : 86.2 kg (190 lb 0.6 oz) Body mass index is 33.66 kg/m??. Food Intake: DIET REGULAR Activity:bedrest Exam: A&O, talkative Breathing comfortably on RA Data Review: Labs: Recent Labs 07/13/23 1123 07/13/23 1707 07/13/23202507/14/23 0653 07/14/23 1159 07/14/23 1648 07/14/23204107/15/23 0716 07/15/23 1120 07/15/23 1704 07/15/23203007/16/23 0743 GLUCOSEPOC 184* 257* 251* 179* 187* 172* 164* 150* 174* 188* 194* 145* Lab Results Component Value Date HGBA1C 8.2 (H) 06/14/2023 Lab Results Component Value Date SERGLU 240 (H) 07/15/2023 NA 131 (L) 07/15/2023 K 4.1 07/15/2023 CL 96 07/15/2023 CO2 23 07/15/2023 BUN 14 07/15/2023 CREATININE 0.40 (L) 07/15/2023 CALCIUM 8.5 07/15/2023 Assessment 52 y/o F with 10-15 yr H/O T2 DM, manages with dietary measures, A1C is uncontrolled. Has PMH of HTN, Anxiety/Depression, admitted via ER with R Gluteal Necrotizing Fasciitis 06/12, complicated by Post-operative bradycardic arrest x2 early in hospital course, suspected heart block vs vagal event. Recovered normal cardiac function, EP cards signed off and has had persistent respiratory complications. She has undergone serial washouts/debridements and wound vac placements. Renal function WNL Fasting BG was 145, nicely at target. Blood sugars quite stable on current regimen of Lantus and Aspart scale. Will continue to monitor and make adjustments as needed. Plan: 1. Lantus: Continue Lantus 35 units once daily 2. Aspart: Inject 6 units if patient eats entire meal, inject 3 units if patient eats 50% of meal, Hold if NPO 3. Aspart SSI: Dosing regimen weight between 50-75 kg OR sensitive to insulin BG Units 66-140 0 141-180 1 181-210 2 211-250 4 251-299 6 > 299 9 4. 5 units at HS if BG > 250 and recheck BG at midnight 5. FS: AC/HS/PRN 6. Pt will benefit from Diabetes education as likely will need to discharge on insulin 7. Consider introduction of non-insulin agents (GLP1/SGLT2) as adjunct therapy to insulin, once closer to discharge 8. Will continue to follow with you. Discharge Plan: TBD Carmen Vernon NP 07/16/2023 10:45 * Zahira Veras MD - 07/16/2023 0556 EDT Acute Care Surgery Progress Note Service Date: 07/16/2023 Admit Date: 06/13/2023 23:23 Procedure(s): Nec fasc debridement x2 (OSH) Serial debridement, repair rectal injury (06/14) Additional debridement, washout (06/16) Additional debridement, washout, partial closure (06/18) Washout, wound vac change (06/25) Wound vac change (07/09) Chief Complaint: NSTI 24 Hour Events: GAEL HustonV cleaned, reinforced Subjective Pain well controlled, wasn't aware of any vac leak issues though she is hard of hearing, no acute complaints. Denies nausea/vomiting Objective Vital Signs: Temp: [36.2 ??C (97.2 ??F)-37.1 ??C (98.8 ??F)] Heart Rate: [72 BPM-83 BPM] Pulse: [81-86] Pulse From Oximetry: [72 BPM-86 BPM] Resp: [18-20] BP: (132-161)/(60-84) SpO2: [99 %-100 %] I/O: Intake/Output Summary (Last 24 hours) at 07/16/2023 0581 Last data filed at 07/16/2023 0516 Gross per 24 hour Intake 2130 ml Output 3800 ml Net -1670 ml I&O By Type - 3 Shifts Including Current In: 0 [P.O.:2130] Out: 3800 [Urine:2700; Drains:1100] Physical Exam: Gen: resting, NAD Resp: unlabored on room air Psych: appropriate mood and affect Incision/Dressing: to be changed today Labs: CBC: Recent Labs 07/15/23 0926 WBC 8.00 RBC 2.91* HGB 8.3* HCT 25.1* MCV 86 MCH 28.5 MCHC 33.1 PLT 387* NEUTROABS 5.42 BMP: Recent Labs 07/15/23 0926 NA 131* K 4.1 CL 96 CO2 23 BUN 14 CREATININE 0.40* CALCIUM 8.5 Glucose: Glucose, POC Date/Time Value Ref Range Status 07/15/2023 20:31 194 (H) 70 - 100 mg/dL Final Assessment 52 y.o. female with a history of HTN and T2DM who presented as a transfer from [facility] on 06/12 with necrotizing fasciitis. S/p debridement x2 at OSH and s/p debridement at [facility] on 06/14.Post-operative bradycardic arrest x2 early in hospital course, suspected heart block vs vagal event. Recovered normal cardiac function, EP cards signed off. Had transferred to floor however on 07/02 required transfer to SICU for hypoxic respiratory failure secondary to atelectasis/mucous plugging. Intubated for bronchoscopy, now extubated and stable on nasal cannula. Doing well with respiratory therapy. Undergoing local wound care and serial debridements, as well as pulmonary toilet. Wound vac leaking, regimen to cleanse and reinforce as needed today with planned vac change tomorrow 07/16. Plan Principal Problem: Necrotizing fasciitis (HCC-CMS) Wound vac change Sunday 07/16 Multimodal pain control RT for airway clearance Q4H, DuoNebs Consistent carbohydrate diet, appreciate Endocrine recs No abx for skin infection due to adequate source control Rectal tube for wound hygiene Nystatin powder BID ordered to perianal/gluteal cleft skin Lasix 40mg PO daily Continue bedtime seroquel 25 mg qhs Encourage aggressive I-S Labs every Saturday, Completed course of Flagyl for BV VTE prophylaxis: Pharmacologic Prophylaxis: Enoxaparin (Lovenox) 40 mg SQ daily Dispo: pending clinical course ZAHIRA VERAS MD, PGY1 07/16/2023 5:56 [facility] Pager #[phone] * Nedra Armendariz, RN - 07/15/2023 1503 EDT The Department of Case Management and Social Work Case Management Progress Note Patient Name Level of Care and Accommodation Code: Patient Class: Medically Ready: Y/N Della Kalyn Browning Acute General Inpatient N Primary Dx: Decisional Capacity: Y/N Primary Support/ CareGiver: Advance Directive Necrotizing fasciitis (HCC-CMS) Y N Advance Directives (For Healthcare) Healthcare Directive: No, patient does not have advance directive for healthcare treatment Information Provided on Healthcare Directives: Yes Information on Healthcare Directives Requested: No Disposition Information Appropriate to transfer back: Y/N Length of Stay (in days): Estimated Date of D/C: LTC Medicaid Status: N 32 End of next week (wk of 07/21) N Primary Care Provider: AR/ANDRES/SNF referred: Y/N Bed Offers: Y/N Escalated to Leadership: Y/N UNKNOWN,PROVIDER N N N Mobility Level: Recommended D/C Location Payor: Bedside Mobility Assessment Tool (BMAT) Bedrest or non-weight bearing orders?: No Assessment Level 1-Sit & Shake: Pass Assessment Level 2-Stretch & Point: Pass Assessment Level 3-Stand: Fail Assessment Level 4-Step: Fail Mobility level determined: Mobility Level 2 use lift (ceiling or portable), sliding aid/sheet, air-assisted sliding aid Number of caregivers reccommended: 2 Recommended Discharge Destination PT Recommended Discharge Destination: Subacute rehabilitation Pay[place] / Plan[place] /Product Type: [place] / Barriers to Discharge N/a; remains medically acute for continued IP admission at [facility] Nec fasc debridement x2 (OSH) Serial debridement, repair rectal injury (06/14) Additional debridement, washout (06/16) Additional debridement, washout, partial closure (06/18) Wound vac application (06/21) Wound debridement with WV replacement in OR (07/09) Plan Level of Care: Acute/ IP Admission Point of Origin: [facility] [place] Appropriate for Transfer Return vs Alternative Facility: N/a (reviewed with team 07/07, 07/10) Discharge plan/ Estimated date: TBD Insurance/ LTC Medicaid Status: Medicaid Support Network: anya Lezama ([phone]); Henrietta Hensley ([phone]) (CM Note 07/14:) Chart reviewed and updates received this morning from Primary team in rounds. Plan for Wound Vac change this Sunday 07/16 with possible STSG dependent on assessment of wound bed. Patient asleep at time of CM visit. Discussed care with Nursing. Acute therapies following and currently recommending for short-term Sub Acute Rehab stay. Will listonce closer to medical readiness with more clear plan of care in place. Not currently getting up out of bed. WV, rectal tube, indwelling vuong cath intact. This CM will continue to follow and assist with coordination of disposition plan dependent on clinical course/ care team recommendations. Please reach out with any additional questions/ concerns, or acute changes in care plan in order toprovide patient with adequate supports. (CM Note 07/10:) Plan continues for WV reassessment on Friday 07/14 with possible skin graft pending following vac removal. Worked with PT today at bedside with eventual recommendations for a short-term Sub Acute Rehab stay. This CM will list for rehab facilities once closer to medical readiness for a transition to the next appropriate level of care. Will reassess clinical status Saturday following Wound Vac change. Please reach out with any additional questions/ concerns, or acute changes in care plan in order toprovide patient with adequate supports. E-Signature Nedra Armendariz RN CM [facility] Department (Available via MideoMe) 07/15/23 14:20 * Carmen Vernon NP - 07/15/2023 1415 EDT Endocrine/Diabetes Follow Up/Progress Note Admit Date: 06/13/2023 Hospital day LOS: 32 days Date of Service: 07/15/2023 Reason for Following: T2DM Inpatient glycemic management, Necrotizing Fasciitis HPI: 52 y/o F with PMH of T2 DM, HTN, Anxiety/Depression, admitted via ER with R Gluteal Necrotizing Fasciitis 4/18, complicated by Post-operative bradycardic arrest x2 early in hospital course, suspected heart block vs vagal event. Recovered normal cardiac function, EP cards signed off and has hadpersistent respiratory complications. She has undergone serial washouts/debridements and wound vac placements. Subjective: pt is sleeping soundly, did not awaken Diabetes History: Onset: ~ 10-15 yr ago Control: A1C 8.2 on 06/13 Complications: Peripheral Neuropathy, infected wound Home Regimen: On no meds at home Says previously she had taken insulin Tries to watch diet SBGM and Self Care: Stopped taking FS Current Regimen: Lantus 30 units subcutaneous daily. Aspart SSI for weight 76- 100 Kg Current Diet: Regular (added Consistent Carb) Social Information: Single, Lives in [facility], has male partner. 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 Unsure of family history maybe grandparents w DM Regular Diabetes Provider: PCP ROS: N/A pt sleeping Objective/Physical Exam: VS: BP: 135/60 Pulse: 86 Heart Rate: 81 BPM Resp: 18 Temp: 36.2 ??C (97.2 ??F) SpO2: 99 % O2 Flow Rate (L/min): 0 l/min O2 Device: None FIO2 %: 30 % Weight: Weight : 86.2 kg (190 lb 0.6 oz) Body mass index is 33.66 kg/m??. Food Intake: DIET REGULAR Activity:bedrest Exam: sleeping soundly Breathing comfortably on RA Data Review: Labs: Recent Labs 07/12/23 1652 07/12/23 2113 07/13/23 0706 07/13/23 1123 07/13/23 1707 07/13/23 2026 07/14/23 0653 07/14/23 1159 07/14/23 1648 07/14/23 2042 07/15/23 0716 07/15/23 1120 GLUCOSEPOC 221* 209* 151* 184* 257* 251* 179* 187* 172* 164* 150* 174* Lab Results Component Value Date HGBA1C 8.2 (H) 06/14/2023 Lab Results Component Value Date SERGLU 240 (H) 07/15/2023 NA 131 (L) 07/15/2023 K 4.1 07/15/2023 CL 96 07/15/2023 CO2 23 07/15/2023 BUN 14 07/15/2023 CREATININE 0.40 (L) 07/15/2023 CALCIUM 8.5 07/15/2023 Assessment 52 y/o F with 10-15 yr H/O T2 DM, manages with dietary measures, A1C is uncontrolled. Has PMH of HTN, Anxiety/Depression, admitted via ER with R Gluteal Necrotizing Fasciitis 06/12, complicated by Post-operative bradycardic arrest x2 early in hospital course, suspected heart block vs vagal event. Recovered normal cardiac function, EP cards signed off and has had persistent respiratory complications. She has undergone serial washouts/debridements and wound vac placements. Renal function WNL Blood sugars quite stable on current regimen of Lantus and Aspart scale. Will continue to monitor and make adjustments as needed. Plan: 1. Lantus: Continue Lantus 35 units once daily 2. Aspart: Inject 6 units if patient eats entire meal, inject 3 units if patient eats 50% of meal, Hold if NPO 3. Aspart SSI: Dosing regimen weight between 50-75 kg OR sensitive to insulin BG Units 66-140 0 141-180 1 181-210 2 211-250 4 251-299 6 > 299 9 4. 5 units at HS if BG > 250 and recheck BG at midnight 5. FS: AC/HS/PRN 6. Pt will benefit from Diabetes education as likely will need to discharge on insulin 7. Consider introduction of non-insulin agents (GLP1/SGLT2) as adjunct therapy to insulin, once closer to discharge 8. Will continue to follow with you. Discharge Plan: TBD Carmen Vernon NP 07/15/2023 14:15 * Zahira Veras MD - 07/15/2023 0645 EDT Acute Care Surgery Progress Note Service Date: 07/15/2023 Admit Date: 06/13/2023 23:23 Procedure(s): Nec fasc debridement x2 (OSH) Serial debridement, repair rectal injury (06/14) Additional debridement, washout (06/16) Additional debridement, washout, partial closure (06/18) Washout, wound vac change (06/25) Wound vac change (07/09) Chief Complaint: NSTI 24 Hour Events: NAEON Subjective Patient was resting comfortably, no acute complaints, pain well controlled. Objective Vital Signs: Temp: [36.8 ??C (98.2 ??F)-37.2 ??C (99 ??F)] Heart Rate: -- Pulse: [81] Pulse From Oximetry: [74 BPM-93 BPM] Resp: [16-20] BP: (129-160)/(61-74) SpO2: [97 %-100 %] I/O: Intake/Output Summary (Last 24 hours) at 07/15/2023 1056 Last data filed at 07/15/2023 1045 Gross per 24 hour Intake 2280 ml Output 4650 ml Net -2370 ml I&O By Type - 3 Shifts Including Current In: 1800 [P.O.:1800] Out: 4100 [Urine:4000; Drains:100] Physical Exam: Gen: resting, NAD Resp: unlabored on room air Psych: appropriate mood and affect Incision/Dressing: to be changed today Labs: CBC: Recent Labs 07/15/23 0926 WBC 8.00 RBC 2.91* HGB 8.3* HCT 25.1* MCV 86 MCH 28.5 MCHC 33.1 PLT 387* NEUTROABS 5.42 BMP: Recent Labs 07/15/23 0926 NA 131* K 4.1 CL 96 CO2 23 BUN 14 CREATININE 0.40* CALCIUM 8.5 Glucose: Glucose, POC Date/Time Value Ref Range Status 07/15/2023 07:16 150 (H) 70 - 100 mg/dL Final Assessment 52 y.o. female with a history of HTN and T2DM who presented as a transfer from [facility] on 06/12 with necrotizing fasciitis. S/p debridement x2 at OSH and s/p debridement at [facility] on 06/14.Post-operative bradycardic arrest x2 early in hospital course, suspected heart block vs vagal event. Recovered normal cardiac function, EP cards signed off. Had transferred to floor however on 07/02 required transfer to SICU for hypoxic respiratory failure secondary to atelectasis/mucous plugging. Intubated for bronchoscopy, now extubated and stable on nasal cannula. Doing well with respiratory therapy. Undergoing local wound care and serial debridements, as well as pulmonary toilet. Wound vac holdingwall suction. Plan Principal Problem: Necrotizing fasciitis (HCC-CMS) Wound vac change Sunday 07/16 Multimodal pain control RT for airway clearance Q4H, DuoNebs Consistent carbohydrate diet No abx for skin infection due to adequate source control Rectal tube for wound hygiene Nystatin powder BID ordered to perianal/gluteal cleft skin Lasix 40mg PO daily Continue bedtime seroquel 25 mg qhs Encourage aggressive I-S Labs every Saturday, Completed course of Flagyl for BV VTE prophylaxis: Pharmacologic Prophylaxis: Enoxaparin (Lovenox) 40 mg SQ daily Dispo: pending clinical course Elsa Ann, MS4 07/15/2023 10:56 [facility] Pager #[phone] Attestation statement: I was present with the medical student for the history, exam, and medical decision making documented. I have personally performed my own physical exam and medical decision making. I have verified and agree with (or, as indicated, have edited) the medical student's documentation. ZAHIRA VERAS MD 07/15/2023 13:09 Associated attestation - Ramón Peraza MD - 07/15/2023 1336 EDT I saw and examined this patient with the residents and agree with the above note as it relates to the observations that were made and the treatment plan that was proposed. My specific comments follow: Satisfactory progress. Next VAC change on 07/16 * Brewster, May, RT - 07/14/2023 1554 EDT Respiratory Consult/Progress Note Indications for Respiratory therapy: COPD Data Vitals: Heart Rate: 81 BPM, Resp: 16, SpO2: 98 % FIO2/O2 Device: O2 Flow Rate (L/min): 0 l/min, , O2 Device: None, FIO2 %: 30 % RT Orders: PRN VPEP and duo Protocol Scoring: Bronchodilator/Inhalation Therapy Frequency Bronchodilator - Clinical Indications: No clinical indications Breath Sounds: Clear Response: No change / no treatment Pulse: <100 Resp Rate: 18-25 SOB: With exertion Total Score: 2 Comment:: PT request QID Frequency Based On Total Score: 0-4 = PRN 5-7 = QID 8-10 = Q4H 11-12 = Q2H Airway Clearance Therapy Frequency Airway Clearance - Clinical Indications: Productive cough Breath Sounds: Rhonchi / crackles Sputum: Small (tsp) / None Consistency: Thin / thick Cough Effort: Strong/ productive Color: Clear / white Total Score: 3 Comment: Independent wit vpep Frequency Based On Total Score: 0-3 = PRN 4-6 = QID and PRN 7-9 = Q4H and PRN 10-11 = Q2H and PRN Hyperinflation Therapy Frequency Hyperinflation - Clinical Indications: No clinical indications Breath Sounds: Other Surgery: Yes X-Ray / Atelectasis: No O2 Requirements: 0-2 L above baseline Mobility Status: Mobile / at baseline Total: 4 Comment: IS at bedside Frequency Based On Total Score: 0-3 = PRN 4-6 = QID and PRN 7-9 = Q4H and PRN 10-12 = Q2H and PRN Action/Events Respiratory events; PT changed to PRN per protocol Response/Results Weaning and Toleration of treatments; PRN RT KRYSTIN 07/14/23 * Tiff Aviles MD - 07/14/2023 0740 EDT Surgery Progress Note Service Date: 07/14/2023 Admit Date: 06/13/2023 23:23 Procedure: Nec fasc debridement x2 (OSH) Serial debridement, repair rectal injury (06/14) Additional debridement, washout (06/16) Additional debridement, washout, partial closure (06/18) Washout, wound vac change (06/25) Wound vac change 07/09 Chief Complaint: NSTI 24 Hour Events: - NAEO Subjective Feeling well this morning, pain well controlled overnight Objective Vital Signs Temp: [36.6 ??C (97.8 ??F)-37.2 ??C (99 ??F)] , Heart Rate: [79 BPM-82 BPM] , Pulse: [75] , Pulse From Oximetry: [73 BPM-86 BPM] , Resp: [16-22] , BP: (129-150)/(59-72) , SpO2: [100 %] Physical Exam General Appearance: awake, NAD Neuro: alert, following commands, no focal motor deficits Lung: bilateral breath sounds, coarse, on 0.5L NC breathing comfortably Heart: regular rate and rhythm Abdomen: soft, nontender, nondistended Extremities: Warm and well perfused Wound: R gluteal wound wound vac holding suction; rectal tube in place; wound vac output cloudy zhu/brown Labs: CBC: No results for input(s): WBC, RBC, HGB, HCT, MCV, MCH, MCHC, PLT, NEUTROABS, SEDRATE in the last 72 hours. BMP: No results for input(s): NA, K, CL, CO2, BUN, CREATININE, CALCIUM, CALCCA, CAION,MG, PHOS, LABALBU in the last 72 hours. Micro: 06/13 OR cultures: mixed GP and GN organisms, no speciation available 06/15 blood cx: NGTD Imaging: No new imaging Assessment 52 y.o. female with a history of HTN and T2DM who presented as a transfer from [facility] on 06/12 with necrotizing fasciitis. S/p debridement x2 at OSH and s/p debridement at [facility] on 06/14.Post-operative bradycardic arrest x2 early in hospital course, suspected heart block vs vagal event. Recovered normal cardiac function, EP cards signed off. Had transferred to floor however on 07/02 required transfer to SICU for hypoxic respiratory failure secondary to atelectasis/mucous plugging. Intubated for bronchoscopy, now extubated and stable on nasal cannula. Doing well with respiratory therapy. Undergoing local wound care and serial debridements, as well as pulmonary toilet. Wound vac holdingwall suction. Plan Multimodal pain control Continue Flagyl for a total 7 day course for BV RT for airway clearance Q4H, DuoNebs Consistent carbohydrate diet No abx for skin infection due to adequate source control Rectal tube for wound hygiene Nystatin powder BID ordered to perianal/gluteal cleft skin Lasix 40mg PO daily Continue bedtime seroquel 25 mg qhs Next wound vac change 07/14 Encourage aggressive I-S DVT ppx: lovenox 40 mg qhs Dispo: PT eval, pending wound evolution TIFF FAUVER, MD PGY1 [facility] #[id number] Associated attestation - Kyle Mars MD - 07/14/2023 2301 EDT Attending Note I examined and discussed this pt with the residents on 07/14/23 and agree with the above note Wound vacc in place, plan for change early next week Kyle Mars MD [id number] * Justin Tovar, RT - 07/13/2023 1648 EDT Respiratory Consult/Progress Note Indications for Respiratory therapy: COPD, Airway Clearance Data Vitals: Heart Rate: 81 BPM, Resp: 20, SpO2: 100 % FIO2/O2 Device: O2 Flow Rate (L/min): 1 l/min, , O2 Device: Nasal cannula, FIO2 %: 30 % RT Orders: QID Duoneb QID Airway Clearnace Protocol Scoring: Bronchodilator/Inhalation Therapy Frequency Bronchodilator - Clinical Indications: No clinical indications Breath Sounds: Any abnormal BS decreased Response: Mild response, increase subjective per CODE MACHINE OPERATOR Pulse: <100 Resp Rate: 18-25 SOB: With exertion Total Score: 4 Comment:: PRN Frequency Based On Total Score: 0-4 = PRN 5-7 = QID 8-10 = Q4H 11-12 = Q2H Airway Clearance Therapy Frequency Airway Clearance - Clinical Indications: Productive cough Breath Sounds: Rhonchi / crackles Sputum: Small (tsp) / None Consistency: Thin / thick Cough Effort: Strong/ productive Color: Clear / white Total Score: 3 Comment: QID VPEP Frequency Based On Total Score: 0-3 = PRN 4-6 = QID and PRN 7-9 = Q4H and PRN 10-11 = Q2H and PRN Hyperinflation Therapy Frequency Hyperinflation - Clinical Indications: No clinical indications Breath Sounds: Other Surgery: Yes X-Ray / Atelectasis: No O2 Requirements: 0-2 L above baseline Mobility Status: Mobile / at baseline Total: 4 Comment: IS at bedside Frequency Based On Total Score: 0-3 = PRN 4-6 = QID and PRN 7-9 = Q4H and PRN 10-12 = Q2H and PRN Action/Events Respiratory events; Changed bronchodilator from PRN to QID. Pt has asked for PRN neb often in recent past. She states they make her breathing feel better. Coughed up small amount of creamy pale secretions. Response/Results Weaning and Toleration of treatments; RT AMEYA 07/13/23 * Leesa Buenrostro MD - 07/13/2023 1236 EDT Surgery Progress Note Service Date: 07/13/2023 Admit Date: 06/13/2023 23:23 Procedure: Nec fasc debridement x2 (OSH) Serial debridement, repair rectal injury (06/14) Additional debridement, washout (06/16) Additional debridement, washout, partial closure (06/18) Washout, wound vac change (06/25) Wound vac change 07/09 Chief Complaint: NSTI 24 Hour Events: - NAEO Subjective Feeling okay this morning, although she feels her pain regimen is not enough. Otherwise comfortableand just finished a breathing treatment. Objective Vital Signs Temp: [36.6 ??C (97.8 ??F)-37.4 ??C (99.4 ??F)] , Heart Rate: [79 BPM-92 BPM] , Pulse: [82-89] , Pulse From Oximetry: [73 BPM-92 BPM] , Resp: [16-22] , BP: (129-162)/(59-80) , SpO2: [98 %-100 %] Physical Exam General Appearance: awake, NAD Neuro: alert, following commands, no focal motor deficits Lung: bilateral breath sounds, coarse, on 0.5L NC breathing comfortably Heart: regular rate and rhythm Abdomen: soft, nontender, nondistended Extremities: Warm and well perfused Wound: R gluteal wound wound vac holding suction; rectal tube in place; wound vac output cloudy zhu/brown Labs: CBC: Recent Labs 07/11/23 0636 WBC 6.96 RBC 2.61* HGB 7.4* HCT 22.6* MCV 87 MCH 28.4 MCHC 32.7 PLT 364 NEUTROABS 3.93 BMP: Recent Labs 07/11/23 0636 NA 130* K 4.5 CL 98 CO2 23 BUN 17 CREATININE 0.49* CALCIUM 8.2* Micro: 06/13 OR cultures: mixed GP and GN organisms, no speciation available 06/15 blood cx: NGTD Imaging: No new imaging Assessment 52 y.o. female with a history of HTN and T2DM who presented as a transfer from [facility] on 06/12 with necrotizing fasciitis. S/p debridement x2 at OSH and s/p debridement at [facility] on 06/14.Post-operative bradycardic arrest x2 early in hospital course, suspected heart block vs vagal event. Recovered normal cardiac function, EP cards signed off. Had transferred to floor however on 07/02 required transfer to SICU for hypoxic respiratory failure secondary to atelectasis/mucous plugging. Intubated for bronchoscopy, now extubated and stable on nasal cannula. Doing well with respiratory therapy. Undergoing local wound care and serial debridements, as well as pulmonary toilet. Wound vac holdingwall suction. Plan Multimodal pain control Continue Flagyl for a total 7 day course for BV RT for airway clearance Q4H, DuoNebs Consistent carbohydrate diet No abx for skin infection due to adequate source control Rectal tube for wound hygiene Nystatin powder BID ordered to perianal/gluteal cleft skin Lasix 40mg PO daily Continue bedtime seroquel 25 mg qhs Next wound vac change 07/14 Encourage aggressive I-S DVT ppx: lovenox 40 mg qhs Dispo: PT eval, pending wound evolution LEESA MD PORTER PGY1 [facility] #[id number] Associated attestation - Ramón Peraza MD - 07/13/2023 1301 EDT I saw and examined this patient with the residents and agree with the above note as it relates to the observations that were made and the treatment plan that was proposed. My specific comments follow: Satisfactory progress. Continue VAC therapy * Almita Hayes, RT - 07/12/2023 9731 EDT Respiratory Consult/Progress Note Indications for Respiratory therapy: PRN neb/airway clearance Data Vitals: Heart Rate: 78 BPM, Resp: 18, SpO2: 98 % FIO2/O2 Device: O2 Flow Rate (L/min): 1 l/min, O2 Device: Nasal cannula, RT Orders: Qid airway clearance PRN duoneb PRN albuterol MDI Protocol Scoring: Bronchodilator/Inhalation Therapy Frequency Bronchodilator - Clinical Indications: No clinical indications Breath Sounds: Any abnormal BS decreased Response: Mild response, increase subjective per CODE MACHINE OPERATOR Pulse: <100 Resp Rate: 18-25 SOB: With exertion Total Score: 4 Comment:: PRN Frequency Based On Total Score: 0-4 = PRN 5-7 = QID 8-10 = Q4H 11-12 = Q2H Airway Clearance Therapy Frequency Airway Clearance - Clinical Indications: Productive cough Breath Sounds: Rhonchi / crackles Sputum: Small (tsp) / None Consistency: Thin / thick Cough Effort: Strong/ productive Color: Yellow / green Total Score: 5 Comment: QID Frequency Based On Total Score: 0-3 = PRN 4-6 = QID and PRN 7-9 = Q4H and PRN 10-11 = Q2H and PRN Hyperinflation Therapy Frequency Hyperinflation - Clinical Indications: No clinical indications Breath Sounds: Other Surgery: Yes X-Ray / Atelectasis: No O2 Requirements: 0-2 L above baseline Mobility Status: In chair Total: 6 Comment: QID Frequency Based On Total Score: 0-3 = PRN 4-6 = QID and PRN 7-9 = Q4H and PRN 10-12 = Q2H and PRN Action/Events Patient requested PRN neb this morning. Discussed with RT getting a second neb around 11:30 noon. Patient feels relief with nebs. Continues to score for PRN. 10 breaths of vpep done with a strong, productive cough. Patient is getting IS to 750. Response/Results Continue QID treatments for airway clearance. PRN neb as scheduled. ALMITA HAYES, RT 07/12/23 * Nedra Armendariz RN - 07/11/2023 1640 EDT CASE MANAGEMENT UPDATE: Level of Care: Acute/ IP Admission Point of Origin: [facility] [place] Appropriate for Transfer Return vs Alternative Facility: N/a (reviewed with team 07/07, 07/10) Discharge plan/ Estimated date: TBD Insurance/ LTC Medicaid Status: Medicaid Barriers to d/c: N/a; medically complex Support Network: anya Lezama ([phone]); Henrietta Hensley ([phone]) Additional Needs/ Next Steps: Nec fasc debridement x2 (OSH) Serial debridement, repair rectal injury (06/14) Additional debridement, washout (06/16) Additional debridement, washout, partial closure (06/18) Wound vac application (06/21) Wound debridement with WV replacement in OR (07/09) (CM Note 07/10:) Plan continues for WV reassessment on Friday 07/14 with possible skin graft pending following vac removal. Worked with PT today at bedside with eventual recommendations for a short-term Sub Acute Rehab stay. This CM will list for rehab facilities once closer to medical readiness for a transition to the next appropriate level of care. Will reassess clinical status Saturday following Wound Vac change. Please reach out with any additional questions/ concerns, or acute changes in care plan in order toprovide patient with adequate supports. (CM Note 07/07:) Provided check-in with patient at bedside this morning following chart review and updates from team. Wound vac changed this with granulation tissue present following week application of vac/ acell product. Plan to re-evaluation wound site Friday 07/14 with skin graft dependent on progress. Please continue repositioning q2 and an increase of mobility daily as tolerated. CM will continue to follow. Available to provide supports/ coordination of care as appropriate. (CM Note 07/02:) Chart reviewed and received updates from Primary team this morning in rounds. Provided check-in with patient at bedside. Patient remains tachypneic and on Venti mask. RT following. Requires close monitoring. Had WV changed on 06/25. On 06/30 acell matrix applied to wound site with vac replaced with plan to remain intact x7 days (will reassess 07/07 to remove vac). STSG pending. This CM will continue to follow and assist with coordination of disposition plan dependent on clinical course/ care team recommendations. Please reach out with any additional questions/ concerns, or acute changes in care plan in order toprovide patient with adequate supports. Nedra Armendariz RN CM [facility] Department (Available via Epic Chat) * Melinda Lassiter, PT - 07/11/2023 1402 EDT Rehabilitation Therapy Acute Therapies [facility] Physical Therapy Encounter Note Date of Service: 07/11/2023 Subjective/Objective Subjective I'm willing to try Do you have any shoes that would work for traction? I don't trust these socks. Objective Intervention completed today: Time: 1201 Total treatment time: 30 minutes. Timed code treatment minutes: 30 Vital signs were monitored and were stable throughout physical therapy session. Pt using 1 liter nasal cannula Oxygen; SPO2 97-98% PT obtained bilateral flat Darco surgical shoes size small and assisted pt to ashley. Pt with rectal tube in place, right buttock wound vac dressing with suction to wall mount, vuong catheter Therapeutic activity Rolling towards left side; cues for reaching for bedrail with right UE; supervision to minimal assist. Once laying on side; able to bring bilateral legs off edge of bed with minimal assist. Able to bring trunk to upright sitting posture with minimal assist to very close supervision; head of bed fully elevated; Provided foot stool for pt to have support under both feet due to short stature; Sitting balance; able to sit with minimal assist to stand by supervision at edge of bed with no UE propping on bed; LE There ex; Knee extension; performed x 3 reps with right LE (3-/5 strength), assist needed for LLE; With feet on footstool; performed left side scoot to sit closer to head of bed with moderate assist; able to lift pelvis slightly off bed surface; no able to clear pelvis off bed surface; required 5 attempts to scoot 6 inches. Sit to sidelye towards left; able to lower trunk to left elbow with close supervision; moderate assist to bring legs on to bed surface; Discussed goal to progress to being able to sit at edge of bed for eating meals. Patient/Family Education: Topic: Activity pacing/Energy conservation Balance Bed mobility Exercise Positioning Precautions/protocol Role of therapy Safety Transfers Learner: patient Method: verbal and demonstration Barriers to Learning: none noted Outcome: needs practice and verbalized understanding Team Communication: Pt status discussed with Nursing prior to and at conclusion of session; Not able to use mechanical lift to lift pt off bed surface as did not have correct sling for lift device. ROOFING FOREMAN assisted throughout bed mobility and sitting; assisted pt with washing back and repositioning. Assessment/Plan Assessment Mr Browning demonstrates improved sitting balance. She actively participates with PT. She remains extremely deconditioned. She apparently was using a w/c as primary means of locomotion prior to hospitalization. Anticipate she may need mechanical lift for transfers initially. Would benefit from being in a ceiling lift room. She will require subacute rehab when medically ready. She would greatly benefit from OT consult. Plan Continue per plan of care Recommended Discharge Destination: Sub-acute rehabilitation Recommended Discharge Services: Physical therapy at rehabilitation facility Recommended Equipment Needs: To be determined by next care provider Other recommendations: Occupational Therapy consult Primary Therapist: Pager: [phone] Melinda Lassiter PT 07/11/2023 14:02 * Ashleigh Stout RD - 07/11/2023 1157 EDT Nutrition Assessment Note: Reassessment Admission date: 06/13/2023 23:23 BACKGROUND DATA Per ACS note today: Procedure: Nec fasc debridement x2 (OSH) Serial debridement, repair rectal injury (06/14) Additional debridement, washout (06/16) Additional debridement, washout, partial closure (06/18) Washout, wound vac change (06/25) Chief Complaint: NSTI 24 Hour Events: -Weaned down to 0.5L NC -Wound vac leak yesterday PM, reinforced, held suction - NAEO Subjective: Per RN ate 75% of breakfast Pt. States she is eating OK, appetite is a bit lower than usual Still taking boost Current Nutrition Orders: Diet: Regular- Boost Glucose Control TID Delegate Diet ordering to RD Nutrition Focused Physical Exam Subcutaneous Fat Assessment Orbital Region: Well-nourished (06/14/23 1520) Cheek Region: Well-nourished (06/14/23 1520) Upper Arm Region: Well-nourished (06/14/23 1520) Midaxillary Line: Not assessed (06/14/23 1520) Muscle Mass Assessment Congregation Region: Well-nourished (06/14/23 1520) Clavicle Region: Well-nourished (06/14/23 1520) Shoulder/Acromion/Clavicle Region: Well-nourished (06/14/23 1520) Scapula Region: Not assessed (06/14/23 1520) Hand Region: Not assessed (06/14/23 1520) Thigh/Patellar Region: Not assessed (06/14/23 1520) Calf Region: Not assessed (06/14/23 1520) NFPE Assessment Summary of Fat Wasting: No significant evidence of wasting (06/14/23 1520) Summary of Muscle Wasting: No significant evidence of wasting (06/14/23 1520) Physical Findings: Digestive Systems: Last BM : formed BM on 07/07 Dentition: Teeth: Missing teeth per flowsheets Edema: trace Skin: excoriation, lacerations/incisions WV to buttock wound Allergies on file: Aspirin, Cymbalta [duloxetine], Lyrica [pregabalin], and Penicillins Anthropometrics: Height: 160 cm (63) Weights Filed This Admission 06/14/23 0000 06/19/23 0900 06/30/23 0605 Weight: 86.2 kg (190 lb) 86.2 kg (190 lb) 92.2 kg (203 lb 4.2 oz) Body mass index is 36.01 kg/m??. Weight Change: 13 lb gain this admission Pertinent Medications: Current Facility-Administered Medications Medication Route Frequency albuterol inhaler 180 mcg inhalation Q4H PRN alteplase (CATHFLO ACTIVASE) injection 2 mg intercatheter PRN amLODIPine (NORVASC) tablet 10 mg oral DAILY ascorbic acid (vitamin C) (VITAMIN C) tablet 250 mg oral DAILY cloNIDine (CATAPRES) 0.2 mg/24 hr patch 1 Patch transdermal WEEKLY dextrose 50 % solution 12.5 g intravenous PRN docusate sodium (COLACE) capsule 200 mg oral BID enoxaparin (LOVENOX) injection 40 mg subcutaneous DAILY furosemide (LASIX) tablet 40 mg oral DAILY glucagon injection 1 mg intramuscular PRN HYDROmorphone (DILAUDID) tablet 2-4 mg oral Q3H PRN insulin aspart U-100 (NOVOLOG FLEXPEN) injection subcutaneous QID AC & HS insulin glargine injection pen 30 Units subcutaneous DAILY L.A. INSULIN ipratropium-albuteroL (DUONEB) 0.5 mg-3 mg(2.5 mg base)/3 mL nebulizer solution 3 mL nebulization Q4H PRN lactulose (CHRONULAC) 20 gram/30 mL solution 30 mL oral Q4H lidocaine 5 % (LIDODERM) patch 2 Patch transdermal DAILY LORazepam (ATIVAN) tablet 0.5 mg oral BID PRN melatonin tablet 6 mg oral QHS methocarbamoL (ROBAXIN) tablet 750 mg oral QID metroNIDAZOLE (FLAGYL) tablet 500 mg oral Q8H opesdldn-xsr-holw fum-folic ac 7.5 mg iron-400 mcg tablet 1 Tablet oral DAILY naloxone (NARCAN) injection 0.1 mg intravenous PRN nicotine (NICODERM CQ) 21 mg/24 hr patch 1 Patch transdermal DAILY papain-alpha amylase-cellulase (CLOG ZAPPER) 2-5 mL feeding tube PRN QUEtiapine (SEROQUEL) tablet 25 mg oral QHS senna (SENOKOT) tablet 2 Tablet oral QHS sodium chloride soluble tablet 2,000 mg oral TID thiamine (VITAMIN B1) tablet 100 mg oral DAILY Pertinent Labs: Lab Results Component Value Date/Time NA 130 (L) 07/11/2023 06:36 K 4.5 07/11/2023 06:36 CO2 23 07/11/2023 06:36 CL 98 07/11/2023 06:36 BUN 17 07/11/2023 06:36 CREATININE 0.49 (L) 07/11/2023 06:36 GLUCOSEPOC 156 (H) 07/11/2023 13:06 CALCIUM 8.2 (L) 07/11/2023 06:36 PHOS 4.2 07/09/2023 06:37 MG 1.9 07/09/2023 06:37 Lab Results Component Value Date/Time HGBA1C 8.2 (H) 06/14/2023 04:55 GLUCOSEPOC 156 (H) 07/11/2023 13:06 GLUCOSEPOC 140 (H) 07/11/2023 07:48 GLUCOSEPOC 305 (H) 07/10/2023 21:29 GLUCOSEPOC 176 (H) 07/10/2023 19:30 GLUCOSEPOC 216 (H) 07/10/2023 18:20 Estimated Nutrition Needs: MSJ x1.3 for wound healing (using 86.2 kg) = >1880 kcals/day 1.5 g/kg protein (using 65.9 kg adj wgt) - 2.0 g/kg protein (using 52.4 kg IBW) = 99-105 g protein/day Estimated Nutrition Intake: This am ate 75% breakfast and Boost, ASSESSMENT: Pt. Tolerates diet as ordered. Pt. Able to eat well at breakfast today, she is drinking boost glucose control ~ 2 times per day when not NPO. She states she is drinking 2-3 Boost GC/day which provides 570 mary/ 48 gm protein. Nutrition to monitor intake and help with meal and supplement selection asneeded. Continue vitamins as ordered Nutrition Risk Level: Moderate (2) MEDICAL NUTRITION THERAPY - UPDATED PLAN Diet as ordered Nutrition to monitor intake and help with meal and supplement selection as needed Trend BG as ordered Ongoing monitor and follow up Ashleigh Stout RD, CD (Call PAS or use [employer] ([employer]) to page RD covering this unit) * Reza Bowers, RT - 07/11/2023 0939 EDT Respiratory Consult/Progress Note Indications for Respiratory therapy: History of COPD Data Vitals: Heart Rate: 80 BPM, Resp: 18, SpO2: 100 % FIO2/O2 Device: O2 Flow Rate (L/min): 1 l/min, , O2 Device: Nasal cannula, FIO2 %: 30 % RT Orders: Qid ACT with Vpep PRN Duoneb Protocol Scoring: Bronchodilator/Inhalation Therapy Frequency Bronchodilator - Clinical Indications: No clinical indications Breath Sounds: Any abnormal BS decreased Response: No change / no treatment Pulse: <100 Resp Rate: 18-25 SOB: With exertion Total Score: 3 Comment:: PRN Frequency Based On Total Score: 0-4 = PRN 5-7 = QID 8-10 = Q4H 11-12 = Q2H Airway Clearance Therapy Frequency Airway Clearance - Clinical Indications: Productive cough Breath Sounds: Rhonchi / crackles Sputum: Small (tsp) / None Consistency: Thin / thick Cough Effort: Strong/ productive Color: Clear / white Total Score: 3 Comment: continue QID Frequency Based On Total Score: 0-3 = PRN 4-6 = QID and PRN 7-9 = Q4H and PRN 10-11 = Q2H and PRN Hyperinflation Therapy Frequency Hyperinflation - Clinical Indications: No clinical indications Breath Sounds: Other Surgery: Yes X-Ray / Atelectasis: No O2 Requirements: O2 at baseline Mobility Status: Mobile / at baseline Total: 3 Comment: QID Frequency Based On Total Score: 0-3 = PRN 4-6 = QID and PRN 7-9 = Q4H and PRN 10-12 = Q2H and PRN Action/Events 0830- ACT with Vpep completed. Patient requested Duoneb. Good cough which was productive for small amount of thin clear/ white sputum. 1245- ACT with Vpep completed. Good cough productive patient swallow. 1615- Duoneb given per patient request. Vpep completed Response/Results Encourage patient to us Vpep. Wean O2 as able. REZA BOWERS, 07/11/23 * Joan Menon MD - 07/10/2023 0846 EDT Surgery Progress Note Service Date: 07/10/2023 Admit Date: 06/13/2023 23:23 Procedure: Nec fasc debridement x2 (OSH) Serial debridement, repair rectal injury (06/14) Additional debridement, washout (06/16) Additional debridement, washout, partial closure (06/18) Washout, wound vac change (06/25) Chief Complaint: NSTI 24 Hour Events: -Weaned down to 0.5L NC -Wound vac leak yesterday PM, reinforced, held suction - JUAN CARLOS Subjective Seen lying down in bed this morning, reports that his pain is still present, particularly at the middle of her back. She states that she is tolerating her diet okay, complains of some shortness of breath. She has had no nausea/vomiting/fever/chills. Objective Vital Signs Temp: [36.8 ??C (98.2 ??F)-37.8 ??C (100.1 ??F)] , Heart Rate: [85 BPM-89 BPM] , Pulse: [86-90] , Pulse From Oximetry: [80 BPM-89 BPM] , Resp: [18-20] , BP: (114-141)/(59-64) , SpO2: [92 %-96 %] Physical Exam General Appearance: awake, NAD Neuro: alert, following commands, no focal motor deficits Lung: bilateral breath sounds, coarse, on 0.5L NC breathing comfortably Heart: regular rate and rhythm Abdomen: soft, nontender, nondistended Extremities: Warm and well perfused Wound: R gluteal wound wound vac holding suction; rectal tube in place; wound vac output cloudy zhu/brown Labs: CBC: Recent Labs 07/08/23 0620 07/09/23 0637 WBC 9.16 9.62 RBC 2.81* 2.69* HGB 8.2* 7.6* HCT 24.1* 22.8* MCV 86 85 MCH 29.2 28.3 MCHC 34.0 33.3 PLT 447* 401* NEUTROABS 6.53 6.95 BMP: Recent Labs 07/08/23 0620 07/08/23 1203 07/08/23 1849 07/08/23 2331 07/09/23 0637 NA 126* < > 125* 125* 125* K 4.1 -- -- -- 4.3 CL 93* -- -- -- 92* CO2 23 -- -- -- 24 BUN 16 -- -- -- 19 CREATININE 0.47* -- -- -- 0.47* CALCIUM 8.5 -- -- -- 8.3* MG 1.8 -- -- -- 1.9 PHOS 4.5 -- -- -- 4.2 < > = values in this interval not displayed. Micro: 06/13 OR cultures: mixed GP and GN organisms, no speciation available 06/15 blood cx: NGTD Imaging: No new imaging Assessment 52 y.o. female with a history of HTN and T2DM who presented as a transfer from [facility] on 06/12 with necrotizing fasciitis. S/p debridement x2 at OSH and s/p debridement at [facility] on 06/14.Post-operative bradycardic arrest x2 early in hospital course, suspected heart block vs vagal event. Recovered normal cardiac function, EP cards signed off. Had transferred to floor however on 5/8 required transfer to SICU for hypoxic respiratory failure secondary to atelectasis/mucous plugging. Intubated for bronchoscopy, now extubated and stable on nasal cannula. Doing well with respiratory therapy. Undergoing local wound care and serial debridements, as well as pulmonary toilet. Only pulling about 300 cc on I-S. Concern for wound VAC leak/contamination with stool; the etiology of this contamination is leakage around the rectal tube versus stool output through rectal fistula. Plan Takeback to the OR today for partial wound VAC takedown, washout, replacement of perianal sutures Multimodal pain control Continue Flagyl RT for airway clearance Q4H, DuoNebs Consistent carbohydrate diet No abx for skin infection due to adequate source control Rectal tube for wound hygiene Nystatin powder BID ordered to perianal/gluteal cleft skin Lasix 40mg PO daily Continue bedtime seroquel 25 mg qhs Next wound vac change 07/14 Encourage aggressive I-S DVT ppx: lovenox 40 mg qhs Dispo: PT eval, pending wound evolution MARQUES KENNY MD PGY1 ACS #[id number] Attestation statement: I performed or was present during the cooper or critical portions of the visit and participated in the management of the patient. I agree with the findings and plan of care documented in the resident's/fellow's note. VAC taken down, unclear where stool in it came from. Will take back to OR for washout, removal of silk sutures, replace vac. Will go to wall suction afterwards. Joan Menon MD Acute Care Surgery Pager #[phone] 07/10/23 * Rivka Diehl PT - 07/09/2023 1135 EDT [facility] Acute Therapy [facility] Physical Therapy Contact Note Date of Service: 07/09/2023 Pt back on B6, after transfer to unit 07/02 to SICU for hypoxic respiratory failure secondary to atelectasis/mucous plugging. Intubated for bronchoscopy, now extubated and stable on nasal cannula. Doing well with respiratory therapy. No mobility restrictions per team, PT will advance pt mobility as tolerated. Rivka Diehl PT 07/09/2023 1212 * Joan Menon MD - 07/09/2023 1035 EDT Surgery Progress Note Service Date: 07/09/2023 Admit Date: 06/13/2023 23:23 Procedure: Nec fasc debridement x2 (OSH) Serial debridement, repair rectal injury (06/14) Additional debridement, washout (06/16) Additional debridement, washout, partial closure (06/18) Washout, wound vac change (06/25) Chief Complaint: NSTI 24 Hour Events: -Weaned down to 2L NC -NAEO Subjective Reports feeling okay this morning but sore, particularly at her wound vac site. She is maintaining a positive affect despite her lengthy hospitalization and course. She is looking forward to hopefully getting a skin graft so that she might be more comfortable. Objective Vital Signs Temp: [37 ??C (98.6 ??F)-37.8 ??C (100 ??F)] , Heart Rate: [77 BPM-91 BPM] , Pulse: [75] , Pulse From Oximetry: [78 BPM-91 BPM] , Resp: [18-22] , BP: (105-119)/(52-92) , SpO2: [95 %-100 %] Physical Exam General Appearance: awake, NAD Neuro: alert, following commands, no focal motor deficits Lung: bilateral breath sounds, coarse, on 2L NC breathing comfortably Heart: regular rate and rhythm Abdomen: soft, nontender, nondistended Extremities: Warm and well perfused Wound: R gluteal wound wound vac holding suction; rectal tube in place; wound vac output cloudy zhu/brown Labs: CBC: Recent Labs 07/07/23 0645 07/08/23 0620 07/09/23 0637 WBC 10.22 9.16 9.62 RBC 2.80* 2.81* 2.69* HGB 8.2* 8.2* 7.6* HCT 23.8* 24.1* 22.8* MCV 85 86 85 MCH 29.3 29.2 28.3 MCHC 34.5 34.0 33.3 PLT 493* 447* 401* NEUTROABS 7.46 6.53 6.95 BMP: Recent Labs 07/07/23 0645 07/07/23 1245 07/08/23 0620 07/08/23 1203 07/08/23 1849 07/08/23 2331 07/09/23 0637 NA 128* < > 126* < > 125* 125* 125* K 4.0 -- 4.1 -- -- -- 4.3 CL 95* -- 93* -- -- -- 92* CO2 25 -- 23 -- -- -- 24 BUN 15 -- 16 -- -- -- 19 CREATININE 0.46* -- 0.47* -- -- -- 0.47* CALCIUM 8.5 -- 8.5 -- -- -- 8.3* MG 1.7 -- 1.8 -- -- -- 1.9 PHOS 4.6* -- 4.5 -- -- -- 4.2 < > = values in this interval not displayed. Micro: 06/13 OR cultures: mixed GP and GN organisms, no speciation available 06/15 blood cx: NGTD Imaging: No new imaging Assessment 52 y.o. female with a history of HTN and T2DM who presented as a transfer from [facility] on 06/12 with necrotizing fasciitis. S/p debridement x2 at OSH and s/p debridement at [facility] on 06/14.Post-operative bradycardic arrest x2 early in hospital course, suspected heart block vs vagal event. Recovered normal cardiac function, EP cards signed off. Had transferred to floor however on 07/02 required transfer to SICU for hypoxic respiratory failure secondary to atelectasis/mucous plugging. Intubated for bronchoscopy, now extubated and stable on nasal cannula. Doing well with respiratory therapy. Undergoing local wound care and serial debridements, as well as pulmonary toilet. Only pulling about 300 cc on I-S. Plan Multimodal pain control Start flagyl PO for possible BV RT for airway clearance Q4H, DuoNebs Consistent carbohydrate diet No abx for skin infection due to adequate source control Rectal tube for wound hygiene Nystatin powder BID ordered to perianal/gluteal cleft skin Lasix 40mg PO daily Continue bedtime seroquel 25 mg qhs Next wound vac change 07/14, Encourage aggressive I-S DVT ppx: lovenox 40 mg qhs Dispo: PT eval, pending wound evolution MARQUES KENNY MD PGY1 [facility] #[id number] Attestation statement: I performed or was present during the cooper or critical portions of the visit and participated in the management of the patient. I agree with the findings and plan of care documented in the resident's/fellow's note. Joan Menon MD Acute Care Surgery Pager #[phone] 07/09/23 * Su Peña, RT - 07/09/2023 0415 EDT Respiratory Consult/Progress Note Indications for Respiratory therapy: COPD, Airway Clearance Data Vitals: Heart Rate: 77 BPM, Resp: 20, SpO2: 96 % FIO2/O2 Device: O2 Flow Rate (L/min): 1 l/min, , O2 Device: Nasal cannula, RT Orders: Q4 Duoneb- per request QID Airway Clearance PRN Albuterol MDI Action/Events Respiratory events; Pt tolerated nebulizer well. Coarse crackles on expiration with overal good aeration. Was able to cough secretions out well without cough assist at this time. RT ESTELA 07/09/23 * Nedra Armendariz, KIESHA - 07/08/2023 1413 EDT CASE MANAGEMENT UPDATE: Level of Care: Acute/ IP Admission Point of Origin: [facility] Appropriate for Transfer Return vs Alternative Facility: N/a (reviewed with team 07/07) Discharge plan/ Estimated date: TBD Insurance/ LTC Medicaid Status: Medicaid Barriers to d/c: N/a; medically complex Support Network: anya Lezama ([phone]); Henrietta Hensley ([phone]) Additional Needs/ Next Steps: Nec fasc debridement x2 (OSH) Serial debridement, repair rectal injury (06/14) Additional debridement, washout (06/16) Additional debridement, washout, partial closure (06/18) Wound vac application (06/21) (CM Note 07/07:) Provided check-in with patient at bedside this morning following chart review and updates from team. Wound vac changed this with granulation tissue present following week application of vac/ acell product. Plan to re-evaluation wound site Friday 07/14 with skin graft dependent on progress. Please continue repositioning q2 and an increase of mobility daily as tolerated. CM will continue to follow. Available to provide supports/ coordination of care as appropriate. (CM Note 07/02:) Chart reviewed and received updates from Primary team this morning in rounds. Provided check-in with patient at bedside. Patient remains tachypneic and on Venti mask. RT following. Requires close monitoring. Had [place] changed on 06/25. On 06/30 acell matrix applied to wound site with vac replaced with plan to remain intact x7 days (will reassess 07/07 to remove vac). STSG pending. This CM will continue to follow and assist with coordination of disposition plan dependent on clinical course/ care team recommendations. Please reach out with any additional questions/ concerns, or acute changes in care plan in order toprovide patient with adequate supports. Nedra Armendariz RN CM CMSW Department (Available via [employer]) * Jona Porras RT - 07/08/2023 1401 EDT Respiratory Progress Note Indications for Respiratory therapy: COPD, Airway Clearance Data Vitals: Heart Rate: 91 BPM, Resp: 22, SpO2: 98 % FIO2/O2 Device: O2 Flow Rate (L/min): 2 l/min, , O2 Device: Nasal cannula, FIO2 %: 30 % RT Orders: QID Airway Clearance Q4 Duoneb- per request QID Airway Clearance Action/Events Cough assist , inspiration only with mouthpiece , good initiated coughs , raising thick secretions , and nebulizer given with improvement , decreased but raised secretions. RT REJI 07/08/23 * Paulette Hoover - 07/08/2023 0973 EDT Images from the original note were not included. Surgery Progress Note Service Date: 07/08/2023 Admit Date: 06/13/2023 23:23 Procedure: Nec fasc debridement x2 (OSH) Serial debridement, repair rectal injury (06/14) Additional debridement, washout (06/16) Additional debridement, washout, partial closure (06/18) Washout, wound vac change (06/25) Chief Complaint: NSTI 24 Hour Events: -Weaned down to 3 L nasal cannula satting well -No acute events overnight Subjective Reports that she did not sleep well, this has been an ongoing issue for her. States that she is sore, primarily due to her positioning in bed required by her perennial/gluteal wound. Reported she is tolerating her diet, has no nausea/vomiting/chest pain/shortness of breath Objective Vital Signs Temp: [36.8 ??C (98.2 ??F)-37.4 ??C (99.3 ??F)] , Heart Rate: [86 BPM-90 BPM] , Pulse: --, Pulse From Oximetry: [79 BPM-91 BPM] , Resp: [18-24] , BP: (123-137)/(59-71) , SpO2: [93 %-99 %] Physical Exam General Appearance: awake, NAD Neuro: alert, following commands, no focal motor deficits Lung: bilateral breath sounds, coarse, on 3L NC breathing comfortably Heart: regular rate and rhythm Abdomen: soft, nontender, nondistended Extremities: Warm and well perfused Wound: R gluteal wound wound vac holding suction; rectal tube in place; wound vac output cloudy zhu/brown Labs: CBC: Recent Labs 07/06/23 0725 07/07/23 0645 07/08/23 0620 WBC 11.94 10.22 9.16 RBC 3.11* 2.80* 2.81* HGB 9.2* 8.2* 8.2* HCT 26.3* 23.8* 24.1* MCV 85 85 86 MCH 29.6 29.3 29.2 MCHC 35.0 34.5 34.0 PLT 587* 493* 447* NEUTROABS 8.91* 7.46 6.53 BMP: Recent Labs 07/06/23 0725 07/06/23 1236 07/07/23 0645 07/07/23 1245 07/07/23 1801 07/07/23 2348 07/08/23 0620 NA 129* < > 128* < > 127* 126* 126* K 3.7 -- 4.0 -- -- -- 4.1 CL 94* -- 95* -- -- -- 93* CO2 24 -- 25 -- -- -- 23 BUN 12 -- 15 -- -- -- 16 CREATININE 0.44* -- 0.46* -- -- -- 0.47* CALCIUM 8.5 -- 8.5 -- -- -- 8.5 MG 1.9 -- 1.7 -- -- -- 1.8 PHOS 4.2 -- 4.6* -- -- -- 4.5 < > = values in this interval not displayed. Micro: 06/13 OR cultures: mixed GP and GN organisms, no speciation available 06/15 blood cx: NGTD Imaging: No new imaging Assessment 52 y.o. female with a history of HTN and T2DM who presented as a transfer from [facility] on 06/12 with necrotizing fasciitis. S/p debridement x2 at OSH and s/p debridement at [facility] on 06/14.Post-operative bradycardic arrest x2 early in hospital course, suspected heart block vs vagal event. Recovered normal cardiac function, EP cards signed off. Had transferred to floor however on 07/02 required transfer to SICU for hypoxic respiratory failure secondary to atelectasis/mucous plugging. Intubated for bronchoscopy, now extubated and stable on nasal cannula. Doing well with respiratory therapy. Undergoing local wound care and serial debridements, as well as pulmonary toilet. Only pulling about 300 cc on I-S. Plan Multimodal pain control RT for airway clearance Q4H, DuoNebs Consistent carbohydrate diet No abx due to adequate source control Rectal tube for wound hygiene Nystatin powder BID ordered to perianal/gluteal cleft skin Lasix 40mg PO daily Continue bedtime seroquel 25 mg qhs Wound VAC changed today, evaluate for ACell placement Encourage aggressive I-S DVT ppx: lovenox 40 mg qhs Dispo: PT eval, pending wound evolution MARQUES KENNY MD PGY1 [facility] #[id number] Attestation: I performed or was present during the cooper or critical portions of the visit and participated in the management of the patient on 07/08/2023. I agree with the findings and plan of care documented in the resident's/fellow's note. 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 Vac reapplied With acell powder at base of wound, sheet of acell, covered with xeroform and surgilube and back wound vac sponge applied Good seal. Will keep dressing on for one more week, will change on Saturday Once fistula closed - then ready for STSG. Paulette Hoover MD 07/08/2023 9:38 * Su Peña RT - 07/08/2023 0411 EDT Respiratory Consult/Progress Note Indications for Respiratory therapy: COPD, Airway Clearance Data Vitals: Heart Rate: 86 BPM, Resp: 24, SpO2: 99 % FIO2/O2 Device: O2 Flow Rate (L/min): 3 l/min, , O2 Device: Nasal cannula, RT Orders: Q4 Duoneb- per request QID Airway Clearance PRN Albuterol MDI Action/Events Respiratory events; Pt tolerated nebulizer well. Coarse crackles on expiration with overal good aeration throughout RT ESTELA 07/08/23 * Marques Kenny MD - 07/07/2023 1533 EDT Surgery Progress Note Service Date: 07/07/2023 Admit Date: 06/13/2023 23:23 Procedure: Nec fasc debridement x2 (OSH) Serial debridement, repair rectal injury (06/14) Additional debridement, washout (06/16) Additional debridement, washout, partial closure (06/18) Washout, wound vac change (06/25) Chief Complaint: NSTI 24 Hour Events: -Back on 4 L nasal cannula -No acute events overnight Subjective Reports feeling quite uncomfortable this morning, sleeping a little bit but not much. No nausea/fevers/vomiting/chills, has a more positive affect and is conversational. Objective Vital Signs Temp: [36.6 ??C (97.9 ??F)-37.3 ??C (99.1 ??F)] , Heart Rate: [90 BPM-97 BPM] , Pulse: [88] , PulseFrom Oximetry: [83 BPM-95 BPM] , Resp: [16-22] , BP: (116-152)/(63-73) , SpO2: [91 %-100 %] Physical Exam General Appearance: awake, NAD Neuro: alert, following commands, no focal motor deficits Lung: bilateral breath sounds, coarse, on 4L NC breathing comfortably Heart: regular rate and rhythm Abdomen: soft, nontender, nondistended Extremities: Warm and well perfused Wound: R gluteal wound wound vac holding suction; rectal tube in place; wound vac output cloudy zhu/brown Labs: CBC: Recent Labs 07/05/23 0625 07/05/23 0744 07/06/23 0725 07/07/23 0645 WBC 8.81 8.56 11.94 10.22 RBC 2.26* 2.29* 3.11* 2.80* HGB 6.6* 6.7* 9.2* 8.2* HCT 19.6* 20.1* 26.3* 23.8* MCV 87 88 85 85 MCH 29.2 29.3 29.6 29.3 MCHC 33.7 33.3 35.0 34.5 PLT 548* 538* 587* 493* NEUTROABS 5.90 -- 8.91* 7.46 BMP: Recent Labs 07/05/23 0624 07/05/23 1148 07/06/23 0725 07/06/23 1236 07/07/23 0023 07/07/23 0645 07/07/23 1245 NA 130* < > 129* < > 126* 128* 129* K 4.0 -- 3.7 -- -- 4.0 -- CL 96 -- 94* -- -- 95* -- CO2 27 -- 24 -- -- 25 -- BUN 12 -- 12 -- -- 15 -- CREATININE 0.51* -- 0.44* -- -- 0.46* -- CALCIUM 8.1* -- 8.5 -- -- 8.5 -- MG 2.0 -- 1.9 -- -- 1.7 -- PHOS 5.1* -- 4.2 -- -- 4.6* -- LABALBU 2.5* -- -- -- -- -- -- < > = values in this interval not displayed. Micro: 06/13 OR cultures: mixed GP and GN organisms, no speciation available 06/15 blood cx: NGTD Imaging: No new imaging Assessment 52 y.o. female with a history of HTN and T2DM who presented as a transfer from [facility] on 06/12 with necrotizing fasciitis. S/p debridement x2 at OSH and s/p debridement at [facility] on 06/14.Post-operative bradycardic arrest x2 early in hospital course, suspected heart block vs vagal event. Recovered normal cardiac function, EP cards signed off. Had transferred to floor however on 07/02 required transfer to SICU for hypoxic respiratory failure secondary to atelectasis/mucous plugging. Intubated for bronchoscopy, now extubated and stable on nasal cannula. Doing well with respiratory therapy. Undergoing local wound care and serial debridements, as well as pulmonary toilet. Only pulling about 300 cc on I-S. Plan Multimodal pain control RT for airway clearance Q4H, DuoNebs Consistent carbohydrate diet No abx due to adequate source control Rectal tube for wound hygiene Nystatin powder BID ordered to perianal/gluteal cleft skin Lasix 40mg PO daily Continue bedtime seroquel 25 mg qhs Next wound VAC change tomorrow 07/07 Encourage aggressive I-S DVT ppx: lovenox 40 mg qhs Dispo: PT eval, pending wound evolution MARQUES KENNY MD PGY1 [facility] #[id number] * Justin Tovar, RT - 07/06/2023 1158 EDT Respiratory Consult/Progress Note Indications for Respiratory therapy: COPD, Airway Clearance Data Vitals: Heart Rate: 90 BPM, Resp: 20, SpO2: 95 % FIO2/O2 Device: O2 Flow Rate (L/min): 4 l/min, , O2 Device: Nasal cannula, FIO2 %: 30 % RT Orders: Q4 Duoneb QID Airway Clearance PRN Albuterol MDI Protocol Scoring: Bronchodilator/Inhalation Therapy Frequency Bronchodilator - Clinical Indications: LIP order Breath Sounds: Any abnormal BS decreased Response: No change / no treatment Pulse: <100 Resp Rate: <18 SOB: With exertion Total Score: 2 Comment:: Q4 Duoneb Frequency Based On Total Score: 0-4 = PRN 5-7 = QID 8-10 = Q4H 11-12 = Q2H Airway Clearance Therapy Frequency Airway Clearance - Clinical Indications: Productive cough Breath Sounds: Rhonchi / crackles Sputum: Small (tsp) / None Consistency: None Cough Effort: Strong/ non-productive Color: None Total Score: 1 Comment: (pt showed thick yellow secretions coughed up eariler) Frequency Based On Total Score: 0-3 = PRN 4-6 = QID and PRN 7-9 = Q4H and PRN 10-11 = Q2H and PRN Hyperinflation Therapy Frequency Hyperinflation - Clinical Indications: Atelectasis on CXR Breath Sounds: Other Surgery: No X-Ray / Atelectasis: Yes O2 Requirements: > 4 L above baseline Mobility Status: Mobile / at baseline Total: 6 Comment: QID Frequency Based On Total Score: 0-3 = PRN 4-6 = QID and PRN 7-9 = Q4H and PRN 10-12 = Q2H and PRN Action/Events Respiratory events; Pt is coughing up thick yellow/clear secretions. Currently on 4L NC with SPO2 in mid 90s. O2 flow was 4.5L,now 4L. Will try to titrate next tx this afternoon. Pt states she does not use home O2. Response/Results Weaning and Toleration of treatments; RT AMEYA 07/06/23 * Paulette Hoover - 07/06/2023 0707 EDT Surgery Progress Note Service Date: 07/06/2023 Admit Date: 06/13/2023 23:23 Procedure: Nec fasc debridement x2 (OSH) Serial debridement, repair rectal injury (06/14) Additional debridement, washout (06/16) Additional debridement, washout, partial closure (06/18) Washout, wound vac change (06/25) Chief Complaint: NSTI 24 Hour Events: Wound VAC changed 07/04 Rectal tube reinserted 1 unit RBCs for acute anemia hemoglobin 6.7, followed by Lasix 40 mg IV, net negative 2 L/24h Subjective Doing better this morning, in good spirits. Is working really hard with her respiratory therapy. Pain is well-controlled. Denies nausea or vomiting. Objective Vital Signs Temp: [36.2 ??C (97.1 ??F)-37.1 ??C (98.8 ??F)] , Heart Rate: [67 BPM-94 BPM] , Pulse: [76-90] , Pulse From Oximetry: [67 BPM-97 BPM] , Resp: [15-25] , BP: (121-150)/(60-84) , SpO2: [90 %-96 %] Physical Exam General Appearance: awake, NAD Neuro: alert, following commands, no focal motor deficits Lung: bilateral breath sounds, coarse, on 4L NC breathing comfortably Heart: regular rate and rhythm Abdomen: soft, nontender, nondistended Extremities: Warm and well perfused Wound: R gluteal wound wound vac holding suction; rectal tube in place; wound vac output cloudy zhu/brown Labs: CBC: Recent Labs 07/04/23 0630 07/05/23 0625 07/05/23 0744 WBC 15.69* 8.81 8.56 RBC 2.63* 2.26* 2.29* HGB 7.6* 6.6* 6.7* HCT 23.0* 19.6* 20.1* MCV 88 87 88 MCH 28.9 29.2 29.3 MCHC 33.0 33.7 33.3 PLT 679* 548* 538* NEUTROABS 12.52* 5.90 -- BMP: Recent Labs 07/04/23 0630 07/04/23 1401 07/05/23 0624 07/05/23 1148 07/05/23 1753 07/05/23 2346 NA 130* < > 130* 129* 129* 129* K 4.8 -- 4.0 -- -- -- CL 95* -- 96 -- -- -- CO2 25 -- 27 -- -- -- BUN 13 -- 12 -- -- -- CREATININE 0.47* -- 0.51* -- -- -- CALCIUM 8.4* -- 8.1* -- -- -- MG 2.0 -- 2.0 -- -- -- PHOS 4.8* -- 5.1* -- -- -- LABALBU -- -- 2.5* -- -- -- < > = values in this interval not displayed. Micro: 06/13 OR cultures: mixed GP and GN organisms, no speciation available 06/15 blood cx: NGTD Imaging: No new imaging Assessment 52 y.o. female with a history of HTN and T2DM who presented as a transfer from [facility] on 06/12 with necrotizing fasciitis. S/p debridement x2 at OSH and s/p debridement at [facility] on 06/14.Post-operative bradycardic arrest x2 early in hospital course, suspected heart block vs vagal event. Recovered normal cardiac function, EP cards signed off. Had transferred to floor however on 07/02 required transfer to SICU for hypoxic respiratory failure secondary to atelectasis/mucous plugging. Intubated for bronchoscopy, now extubated and stable on nasal cannula. Doing well with respiratory therapy. Undergoing local wound care and serial debridements, as well as pulmonary toilet. Plan Multimodal pain control RT for airway clearance Q4H, DuoNebs Consistent carbohydrate diet No abx due to adequate source control Rectal tube for wound hygiene Nystatin powder BID ordered to perianal/gluteal cleft skin Lasix 40mg PO daily Continue bedtime seroquel 25 mg qhs Next wound vac change 07/07 DVT ppx: lovenox 40 mg qhs Dispo: PT eval, pending wound evolution LEESA BUENROSTRO MD PGY1 [facility] #[id number] Attestation: I performed or was present during the cooper or critical portions of the visit and participated in the management of the patient on 07/06/2023. I agree with the findings and plan of care documented in the resident's/fellow's note. Vac change saturday Paulette Hoover MD 07/06/2023 11:08 * Roger Starks, RT - [id number]/05/[id number] EDT Respiratory Consult/Progress Note Indications for Respiratory therapy: History of mucus plugging/ HX smoking Data Vitals: Heart Rate: 84 BPM, Resp: 20, SpO2: 92 % FIO2/O2 Device: O2 Flow Rate (L/min): 5 l/min, O2 Device: Nasal cannula RT Orders: Q4 Duoneb QID VPEP/or Cough Assist Protocol Scoring: Bronchodilator/Inhalation Therapy Frequency Bronchodilator - Clinical Indications: LIP order Breath Sounds: Faint wheezing, decreased throughout Response: Mild response, increase subjective per CODE MACHINE OPERATOR Pulse: <100 Resp Rate: 18-25 SOB: With exertion Total Score: 5 Comment:: Q4 Duoneb Frequency Based On Total Score: 0-4 = PRN 5-7 = QID 8-10 = Q4H 11-12 = Q2H Airway Clearance Therapy Frequency Airway Clearance - Clinical Indications: Productive cough Breath Sounds: Rhonchi / crackles Sputum: Moderate (tbs) Consistency: Thin / thick Cough Effort: Weak/ productive Color: Clear / white Total Score: 5 Comment: QID VPEP (pt refused cough assist (she does not like mask)) Frequency Based On Total Score: 0-3 = PRN 4-6 = QID and PRN 7-9 = Q4H and PRN 10-11 = Q2H and PRN Hyperinflation Therapy Frequency Hyperinflation - Clinical Indications: Atelectasis on CXR Breath Sounds: Other Surgery: No X-Ray / Atelectasis: Yes O2 Requirements: > 4 L above baseline Mobility Status: Mobile / at baseline Total: 6 Comment: QID IS Frequency Based On Total Score: 0-3 = PRN 4-6 = QID and PRN 7-9 = Q4H and PRN 10-12 = Q2H and PRN Action/Events Respiratory events; Patient has hx of mucus plugging; she has weak ineffective cough that is improved with VPEP. No COPD Dx; however, pt only seeks emergency care. BBS coarse and wheezy; improvement with nebulizer. IS 300ml - 500ml with encouragement. Patient does not like the mask on Cough Assist so pt declined, pt was getting cough assist with mouth piece in ICU, will get equipment for next treatment. Pt did VPEP well. Response/Results Recommend Q4 treatment with RT until cough strength improves. ROGER STARKS, RT 07/05/23 * Ashleigh Stout RD - 07/05/2023 1511 EDT Nutrition Assessment Note: Reassessment Admission date: 06/13/2023 23:[address] Azar's note today: Procedure: Nec fasc debridement x2 (OSH) Serial debridement, repair rectal injury (06/14) Additional debridement, washout (06/16) Additional debridement, washout, partial closure (06/18) Washout, wound vac change (06/25) Chief Complaint: NSTI 24 Hour Events: Extubated, weaned to nasal cannula SICU signed off Rectal tube came out despite balloon inflation Subjective: Transferring out of unit Per RN ate all of breakfast Pt. States she is saving boost plus for between meals, notes appetite isn't great but is eating anyway Current Nutrition Orders: Diet: Consistent Carbohydrate Diet, Mech Soft-- Boost Glucose Control TID Delegate Diet ordering to RD Nutrition Focused Physical Exam Subcutaneous Fat Assessment Orbital Region: Well-nourished (06/14/23 1520) Cheek Region: Well-nourished (06/14/23 1520) Upper Arm Region: Well-nourished (06/14/23 1520) Midaxillary Line: Not assessed (06/14/23 1520) Muscle Mass Assessment Congregation Region: Well-nourished (06/14/23 1520) Clavicle Region: Well-nourished (06/14/23 1520) Shoulder/Acromion/Clavicle Region: Well-nourished (06/14/23 1520) Scapula Region: Not assessed (06/14/23 1520) Hand Region: Not assessed (06/14/23 1520) Thigh/Patellar Region: Not assessed (06/14/23 1520) Calf Region: Not assessed (06/14/23 1520) NFPE Assessment Summary of Fat Wasting: No significant evidence of wasting (06/14/23 1520) Summary of Muscle Wasting: No significant evidence of wasting (06/14/23 1520) Physical Findings: Digestive Systems: Last BM : formed BM on 07/04 Dentition: Teeth: Missing teeth per flowsheets Edema: trace Skin: excoriation, lacerations/incisions [place] to buttock wound Allergies on file: Aspirin, Cymbalta [duloxetine], Lyrica [pregabalin], and Penicillins Anthropometrics: Height: 160 cm (63) Weights Filed This Admission 06/14/23 0000 06/19/23 0900 06/30/23 0605 Weight: 86.2 kg (190 lb) 86.2 kg (190 lb) 92.2 kg (203 lb 4.2 oz) Body mass index is 36.01 kg/m??. Weight Change: 13 lb gain this admission Pertinent Medications: Current Facility-Administered Medications Medication Route Frequency albuterol inhaler 180 mcg inhalation Q4H PRN alteplase (CATHFLO ACTIVASE) injection 2 mg intercatheter PRN amLODIPine (NORVASC) tablet 10 mg oral DAILY cloNIDine (CATAPRES) 0.3 mg/24 hr patch 1 Patch transdermal WEEKLY dextrose 50 % solution 12.5 g intravenous PRN enoxaparin (LOVENOX) injection 40 mg subcutaneous DAILY furosemide (LASIX) tablet 40 mg oral DAILY glucagon injection 1 mg intramuscular PRN hydrALAZINE (APRESOLINE) 10 mg in sodium chloride (NS) 0.9 % 50 mL IVPB intravenous Q4H PRN HYDROmorphone (DILAUDID) tablet 2-4 mg oral Q3H PRN HYDROmorphone (PF) (DILAUDID) 0.5 mg/0.5 mL syringe 0.25-0.5 mg intravenous Q2H PRN insulin aspart U-100 (NOVOLOG FLEXPEN) injection subcutaneous QID AC & HS insulin glargine injection pen 22 Units subcutaneous DAILY L.A. INSULIN ipratropium-albuteroL (DUONEB) 0.5 mg-3 mg(2.5 mg base)/3 mL nebulizer solution 3 mL nebulization Q4H lidocaine 5 % (LIDODERM) patch 2 Patch transdermal DAILY LORazepam (ATIVAN) tablet 0.5 mg oral BID methocarbamoL (ROBAXIN) tablet 750 mg oral QID [id number] fum-folic ac 7.5 mg iron-400 mcg tablet 1 Tablet oral DAILY naloxone (NARCAN) injection 0.1 mg intravenous PRN nicotine (NICODERM CQ) 21 mg/24 hr patch 1 Patch transdermal DAILY nystatin (MYCOSTATIN) powder topical BID papain-alpha amylase-cellulase (CLOG ZAPPER) 2-5 mL feeding tube PRN QUEtiapine (SEROQUEL) tablet 25 mg oral QHS thiamine (VITAMIN B1) tablet 100 mg oral DAILY zinc sulfate (ZINCATE) capsule 220 mg oral DAILY Pertinent Labs: Lab Results Component Value Date/Time NA 129 (L) 07/05/2023 11:48 K 4.0 07/05/2023 06:24 CO2 27 07/05/2023 06:24 CL 96 07/05/2023 06:24 BUN 12 07/05/2023 06:24 CREATININE 0.51 (L) 07/05/2023 06:24 GLUCOSEPOC 152 (H) 07/05/2023 13:46 CALCIUM 8.1 (L) 07/05/2023 06:24 PHOS 5.1 (H) 07/05/2023 06:24 MG 2.0 07/05/2023 06:24 Lab Results Component Value Date/Time HGBA1C 8.2 (H) 06/14/2023 04:55 GLUCOSEPOC 152 (H) 07/05/2023 13:46 GLUCOSEPOC 212 (H) 07/05/2023 10:36 GLUCOSEPOC 128 (H) 07/05/2023 08:43 GLUCOSEPOC 218 (H) 07/04/2023 22:46 GLUCOSEPOC 264 (H) 07/04/2023 21:46 Estimated Nutrition Needs: MSJ x1.3 for wound healing (using 86.2 kg) = >1880 kcals/day 1.5 g/kg protein (using 65.9 kg adj wgt) - 2.0 g/kg protein (using 52.4 kg IBW) = 99-105 g protein/day Estimated Nutrition Intake: This am ate 100% breakfast and Boost, ASSESSMENT: Pt. Tolerates diet as ordered. Pt. Able to eat well at breakfast today, she is drinking boost glucose control ~ 2 times per day when not NPO. She states she is drinking 2-3 Boost GC/day which provides 570 mary/ 48 gm protein. Nutrition to monitor intake and help with meal and supplement selection asneeded. Suggest supplemental vitamin C d/t size of wound. Pt. Is ordered for supplemental zinc,OK to d/c Nutrition Risk Level: High (1) MEDICAL NUTRITION THERAPY - UPDATED PLAN Diet as ordered Nutrition to monitor intake and help with meal and supplement selection as needed Please order: p.o. supplement: 250 mg vitamin C daily D/c zinc Trend BG as ordered Ongoing monitor and follow up Ashleigh Stout RD, CD (Call PAS or use Figure 1 Web ([employer]) to page RD covering this unit) * Shelly Yancey, RT - 07/05/2023 1018 EDT Respiratory Consult/Progress Note Indications for Respiratory therapy: History of mucous plugging, smoking history Data Vitals: Heart Rate: 87 BPM, Resp: 19, SpO2: 95 % FIO2/O2 Device: O2 Flow Rate (L/min): 4 l/min, , O2 Device: Nasal cannula, FIO2 %: 30 % RT Orders: Duo Q4--inhalers with poor technique at this time QID Cough assit/vpep Protocol Scoring: Bronchodilator/Inhalation Therapy Frequency Bronchodilator - Clinical Indications: LIP order Breath Sounds: Faint wheezing, decreased throughout Response: Mild response, increase subjective per CODE MACHINE OPERATOR Pulse: <100 Resp Rate: 18-25 SOB: With exertion Total Score: 5 Comment:: qid Frequency Based On Total Score: 0-4 = PRN 5-7 = QID 8-10 = Q4H 11-12 = Q2H Airway Clearance Therapy Frequency Airway Clearance - Clinical Indications: History of mucous production Breath Sounds: Rhonchi / crackles Sputum: Moderate (tbs) Consistency: Thin / thick Cough Effort: Weak/ productive Color: Clear / white Total Score: 5 Comment: QID Cough Assist/VPEP Frequency Based On Total Score: 0-3 = PRN 4-6 = QID and PRN 7-9 = Q4H and PRN 10-11 = Q2H and PRN Hyperinflation Therapy Frequency Hyperinflation - Clinical Indications: Atelectasis on CXR Breath Sounds: Diminished / crackles Surgery: No X-Ray / Atelectasis: Yes O2 Requirements: 2-4 L above baseline Mobility Status: In bed Total: 9 Comment: q4 ca/vpep Frequency Based On Total Score: 0-3 = PRN 4-6 = QID and PRN 7-9 = Q4H and PRN 10-12 = Q2H and PRN Action/Events Patient admitted to ICU for mucous plugging; she has weak a ineffective cough that is improve with cough assist. No COPD Dx ; however, pt only seeks emergency care. BBS coarse and wheezey; improvement with nebulizer. IS 300ml. MDI is not recommended at this time due to ineffective inhalation. Response/Results Recommend Q4 treatment with RT until cough strength improves. RT MITZI 07/05/23 * Moo Monique MD - 07/05/2023 0859 EDT Surgery Progress Note Service Date: 07/05/2023 Admit Date: 06/13/2023 23:23 Procedure: Nec fasc debridement x2 (OSH) Serial debridement, repair rectal injury (06/14) Additional debridement, washout (06/16) Additional debridement, washout, partial closure (06/18) Washout, wound vac change (06/25) Chief Complaint: NSTI 24 Hour Events: Extubated, weaned to nasal cannula SICU signed off Rectal tube came out despite balloon inflation Subjective Doing well. Breathing feels better. No chest pain or SOB. Pain is well controlled. Denies abdominalpain. Objective Vital Signs Temp: [36.2 ??C (97.1 ??F)-37.4 ??C (99.4 ??F)] , Heart Rate: [71 BPM-103 BPM] , Pulse: --, Pulse From Oximetry: [75 BPM-104 BPM] , Resp: [12-37] , BP: (111-159)/(52-81) , SpO2: [90 %-98 %] Physical Exam General Appearance: awake, NAD Neuro: alert, following commands, no focal motor deficits Lung: CTAB Heart: regular rate and rhythm Abdomen: soft, nontender, nondistended Extremities: Warm and well perfused Wound: R gluteal wound wound vac holding suction; of note ostomy pouch over anus with formed stool;wound vac output cloudy zhu/brown Labs: CBC: Recent Labs 07/03/23 0629 07/04/23 0630 07/05/23 0625 07/05/23 0744 WBC 9.16 15.69* 8.81 8.56 RBC 2.40* 2.63* 2.26* 2.29* HGB 7.1* 7.6* 6.6* 6.7* HCT 21.2* 23.0* 19.6* 20.1* MCV 88 88 87 88 MCH 29.6 28.9 29.2 29.3 MCHC 33.5 33.0 33.7 33.3 PLT 548* 679* 548* 538* NEUTROABS 6.67 12.52* 5.90 -- BMP: Recent Labs 07/03/23 0629 07/03/23 1535 07/04/23 0630 07/04/23 1401 07/04/23 1741 07/05/23 0029 07/05/23 0624 NA 130* < > 130* < > 130* 131* 130* K 3.3* -- 4.8 -- -- -- 4.0 CL 95* -- 95* -- -- -- 96 CO2 27 -- 25 -- -- -- 27 BUN 12 -- 13 -- -- -- 12 CREATININE 0.47* -- 0.47* -- -- -- 0.51* CALCIUM 8.0* -- 8.4* -- -- -- 8.1* MG 1.9 -- 2.0 -- -- -- 2.0 PHOS 4.0 -- 4.8* -- -- -- 5.1* < > = values in this interval not displayed. Micro: 06/13 OR cultures: mixed GP and GN organisms, no speciation available 06/15 blood cx: NGTD Imaging: (Please refer to the chart for the full radiology reports including all of the findings and impressions.) XR CHEST PORTABLE 1 VIEW Result Date: 07/04/2023 1. Improved expansion of the left upper lobe status post intubation and bronchoscopy as per the EMR. 2. Slight increase in right basilar opacity presumably atelectasis and/or layering pleural fluid, both of which were seen on the CT of the chest from 07/03/2023. Assessment 52 y.o. female with a history of HTN and T2DM who presented as a transfer from [facility] on 06/12 with necrotizing fasciitis. S/p debridement x2 at OSH and s/p debridement at [facility] on 06/14.Post-operative bradycardic arrest x2 early in hospital course, suspected heart block vs vagal event. Recovered normal cardiac function, EP cards signed off. Had transferred to floor however on 07/02 required transfer to SICU for hypoxic respiratory failure secondary to atelectasis/mucous plugging. Intubated for bronchoscopy, now extubated and stable on nasal cannula. Undergoing local wound care and serial debridements, as well as pulmonary toilet. Plan Multimodal pain control RT for airway clearance Q4H Consistent carbohydrate diet No abx due to adequate source control Rectal tube for wound hygiene Fell out overnight, will discuss laxatives + rectal tube versus providing fiber supplementation instead. Holding all bowel regimen for now. Nystatin powder BID ordered to perianal/gluteal cleft skin Lasix 40mg PO daily. 1 u prbcs for anemia + followed by lasix IV x 1 today Continue bedtime seroquel 25 mg qhs Next wound vac change 07/07 Will discuss transfer to floor on attending rounds DVT ppx: lovenox 40 mg qhs Dispo: PT eval, pending wound evolution TAI AZAR MD PGY3 ACS #[id number] Attestation: I performed or was present during the cooper or critical portions of the visit and participated in the management of the patient on 07/05/2023. I agree with the findings and plan of care documented in the resident's/fellow's note.Remains off vent, rectal tube came out last yelena per report. Will evaluate wound and vac and likely replace rectal tube. Aggressive pulm toilet with cough assistat least QID. Moo Monique MD 07/05/2023 16:36 * Roger Starks, RT - 07/05/2023 0351 EDT Respiratory Progress Note Indications for Respiratory therapy: Airway Clearance Data Vitals: Heart Rate: 78 BPM, Resp: 25, SpO2: 95 % FIO2/O2 Device: O2 Flow Rate (L/min): 4 l/min, O2 Device: Nasal cannula RT Orders: Q4 Suction Eval QID Cough Assist and/or VPEP PRN Vest PRN Duoneb Action/Events Respiratory events; Per SICU team, aggressive pulmonary toilet status post bronch. Found on 4L NC. 1944: Patient did duoneb tx, vest therapy and cough assist - tolerated well. Cough assist set at +30/-5 via mouthpiece to help pt take deep breaths/cough. Pt uses [place] independently during therapy with frequent weak and productive cough for thin/ thick white sputum. Patient refused vest therapy at 0050 and 0420, pt states she likes the cough assist better - switched to PRN. Will do VPEP and cough assist for now. Response/Results VPEP and incentive spirometer at bedside, try and encourage patient to use independently. As of nowpt needs encouragement. Protocol Scoring: Bronchodilator/Inhalation Therapy Frequency Bronchodilator - Clinical Indications: LIP order Breath Sounds: Any abnormal BS decreased Response: No change / no treatment Pulse: >100 Resp Rate: 18-25 SOB: With exertion Total Score: 4 Comment:: PRN Frequency Based On Total Score: 0-4 = PRN 5-7 = QID 8-10 = Q4H 11-12 = Q2H Airway Clearance Therapy Frequency Airway Clearance - Clinical Indications: Productive cough Breath Sounds: Rhonchi / crackles Sputum: Moderate (tbs) Consistency: Thin / thick Cough Effort: Weak/ productive Color: Clear / white Total Score: 5 Comment: QID Cough Assist/VPEP Frequency Based On Total Score: 0-3 = PRN 4-6 = QID and PRN 7-9 = Q4H and PRN 10-11 = Q2H and PRN Hyperinflation Therapy Frequency Hyperinflation - Clinical Indications: Atelectasis on CXR Breath Sounds: Diminished / crackles Surgery: No X-Ray / Atelectasis: Yes O2 Requirements: 2-4 L above baseline Mobility Status: Mobile / at baseline Total: 6 Comment: IS at bedside Frequency Based On Total Score: 0-3 = PRN 4-6 = QID and PRN 7-9 = Q4H and PRN 10-12 = Q2H and PRN ROGER STARKS, RT 07/05/23 * Reza Bowers, RT - 07/04/2023 1227 EDT Respiratory Consult/Progress Note Indications for Respiratory therapy: Weak productive cough Data Vitals: Heart Rate: 103 BPM, Resp: 21, SpO2: 90 % FIO2/O2 Device: O2 sat goal > 88% O2 Flow Rate (L/min): 4 l/min, , O2 Device: Nasal cannula, FIO2 %: 30 % RT Orders: Q4 Vest Q4 cough assist PRN Duoneb Protocol Scoring: Bronchodilator/Inhalation Therapy Frequency Bronchodilator - Clinical Indications: LIP order Breath Sounds: Any abnormal BS decreased Response: No change / no treatment Pulse: <100 Resp Rate: 18-25 SOB: With exertion Total Score: 3 Comment:: QID Frequency Based On Total Score: 0-4 = PRN 5-7 = QID 8-10 = Q4H 11-12 = Q2H Airway Clearance Therapy Frequency Airway Clearance - Clinical Indications: History of mucous production Breath Sounds: Rhonchi / crackles Sputum: Moderate (tbs) Consistency: Thick Cough Effort: Weak/ productive Color: Clear / white Total Score: 6 Comment: q2 ordered -- as patient can tolerate Frequency Based On Total Score: 0-3 = PRN 4-6 = QID and PRN 7-9 = Q4H and PRN 10-11 = Q2H and PRN Hyperinflation Therapy Frequency Hyperinflation - Clinical Indications: Prevent atelectasis Breath Sounds: Diminished / crackles Surgery: No X-Ray / Atelectasis: Yes O2 Requirements: 2-4 L above baseline Mobility Status: Mobile / at baseline Total: 6 Comment: q2 VPep Frequency Based On Total Score: 0-3 = PRN 4-6 = QID and PRN 7-9 = Q4H and PRN 10-12 = Q2H and PRN Action/Events 0730- Vent check completed. Duoneb and Vest therapy completed. Patient suctioned for a small amountof white sputum. Peep weaned to 10 cm. 0830- Vent weaned to 5/5 PSV. Tolerating well 0900- Patient extubated to HFNC 40 lpm/ 30% 1145- Vest therapy completed. Followed with cough assist +25/-5. Patient tolerated multiple breaths. Spontaneous productive cough for a small amount of mucopurlent white sputum. Patient transitioned to nasal cannula @ 4 lpm. 1600- Vest followed with cough assist. Cough assist settings +30/ -5 tolerated well. Frequent coughfor thin/ thick white sputum. Response/Results Encourage patient to use Vpep and cough. RT JAIDEN 07/04/23 * Reza Bowers RT - 07/04/2023 0858 EDT Respiratory Extubation Note Pre-procedure - The extubation order and correct patient verified. The procedure was coordinated with the RN. Procedure - The patient's oral pharynx and ETT were suctioned for Secretion Amount: Moderate Secretion Color: White and Secretion Consistency: Thick. A cuff leak was present. The patient was extubated and placed on O2 Flow Rate (L/min): 40 l/min O2 Device: High flow nasal cannula. No stridor was noted and the patient was able to produce voice. Comments Vent D/C Time: 857 Ventilator days: 1 days Removed by: RT ETT LDA discontinued: Yes [REMOVED] Non-Surgical Airway (Removed) Number of days: 1 [REMOVED] Non-Surgical Airway ETT - cuffed 7.5 (Removed) Number of days: 1 [REMOVED] Non-Surgical Airway (Removed) Number of days: 0 [REMOVED] Non-Surgical Airway (Removed) Number of days: 0 [REMOVED] Non-Surgical Airway ETT - cuffed 8 (Removed) Number of days: 0 RT JAIDEN 07/04/23 * Moo Monique MD - 07/04/2023 0645 EDT Surgery Progress Note Service Date: 07/04/2023 Admit Date: 06/13/2023 23:23 Procedure: Nec fasc debridement x2 (OSH) Serial debridement, repair rectal injury (06/14) Additional debridement, washout (06/16) Additional debridement, washout, partial closure (06/18) Washout, wound vac change (06/25) Chief Complaint: NSTI 24 Hour Events: Increased oxygen requirement overnight CT chest with left sided mucous plugging Transferred to SICU for BIPAP Intubated & bronchoscopy performed Subjective Intubated, sedated Objective Vital Signs Temp: [36.7 ??C (98 ??F)-37.7 ??C (99.8 ??F)] , Heart Rate: [79 BPM-113 BPM] , Pulse: [92] , Pulse From Oximetry: [79 BPM-109 BPM] , Resp: [12-41] , BP: (85-170)/(47-113) , SpO2: [84 %-100 %] Physical Exam General Appearance: Intubated, sedated Neuro: Intubated, sedated Lung: CTAB Heart: regular rate and rhythm Abdomen: soft, nontender, rectal tube in place Extremities: Warm and well perfused Wound: R gluteal wound wound vac holding suction Labs: CBC: Recent Labs 07/02/23 0742 07/03/23 0629 07/04/23 0630 WBC 10.00 9.16 15.69* RBC 2.57* 2.40* 2.63* HGB 7.4* 7.1* 7.6* HCT 21.5* 21.2* 23.0* MCV 84 88 88 MCH 28.8 29.6 28.9 MCHC 34.4 33.5 33.0 PLT 568* 548* 679* NEUTROABS 7.72 6.67 12.52* BMP: Recent Labs 07/02/23 0742 07/02/23 1254 07/03/23 0629 07/03/23 1535 07/03/23 2356 07/04/23 0630 07/04/23 1401 NA 128* < > 130* < > 129* 130* 128* K 4.0 -- 3.3* -- -- 4.8 -- CL 93* -- 95* -- -- 95* -- CO2 27 -- 27 -- -- 25 -- BUN 12 -- 12 -- -- 13 -- CREATININE 0.47* -- 0.47* -- -- 0.47* -- CALCIUM 8.3* -- 8.0* -- -- 8.4* -- MG 1.8 -- 1.9 -- -- 2.0 -- PHOS 4.4 -- 4.0 -- -- 4.8* -- < > = values in this interval not displayed. Micro: 06/13 OR cultures: mixed GP and GN organisms, no speciation available 06/15 blood cx: NGTD Imaging: (Please refer to the chart for the full radiology reports including all of the findings and impressions.) pending Assessment 52 y.o. female with a history of HTN and T2DM who presented as a transfer from [facility] on 06/12 with necrotizing fasciitis. S/p debridement x2 at OSH and s/p debridement at [facility] on 06/14.Post-operative bradycardic arrest x2 early in hospital course, suspected heart block vs vagal event. Recovered normal cardiac function, EP cards signed off. More recent hospital course complicated by hypoxic respiratory failure secondary to atelectasis/mucous plugging. Undergoing local wound care and serial debridements, as well as pulmonary toilet. Plan Multimodal pain control Consistent carbohydrate diet No abx due to adequate source control Rectal tube for wound hygiene Twice daily MiraLAX Nystatin powder BID ordered to perianal/gluteal cleft skin Airway expansion therapy Lasix 40mg PO daily. Lasix 40mg IV x 1 today Continue bedtime seroquel 25 mg qhs Next wound vac change 07/07 DVT ppx: lovenox 40 mg qhs Dispo: PT tomás Miner MD PGY-5 Pager: #[phone] 07/04/2023 16:48 Attestation: I performed or was present during the cooper or critical portions of the visit and participated in the management of the patient on 07/04/2023. I agree with the findings and plan of care documented in the resident's/fellow's note.Just extubated when I saw her. Looking for her hearing aids. Nurse reports wound vac is leaking. Cxr this am shows improved aeration of the left lung but still with LLL atelectasis. Continue aggressive pulm toilet. Will troubleshoot vac, plan to change on Saturday. Okay for diet. Moo Monique MD 07/04/2023 16:57 * Zaiar High RN - 07/04/2023 0627 EDT Pt intubated at 0515 and bronchoscopy done at bedside, pt intubated with propofol and rocuronium and bronch was done successfully. Pt currently VCAC with 80% and peep of 12. Plan is to re-evaluate with repeat chest x ray this AM and possibly extubate later this AM. * Lilli Garrison MD - 07/04/2023 0619 EDT SICU Bronchoscopy Procedure Note 52 y.o. female with acute respiratory failure due to presumed mucous plugging of the left mainstem bronchus. Intubated for procedure with 70mg propofol, 100mg rocuronium, phenylephrine infusion. Following successful Endotracheal tube placement, a 5mm bronchoscope was advanced. Marialuisa was identified, right upper lobe take off was identified. Right upper, right truncus intermedius, and lower were identified and suctioned. There was low mucous burden on the right side. The left sided superior, lingular, and inferior bronchi were explored and suctioned with good evacuation of thick white secretion. White secretions from the lung were captured and sent for culture. Patient remained stable throughout the procedure, on low dose phenylephrine infusion. The patient will remain intubated for another hour on 12 PEEP to help with reinflation of the lung. Pending re-recruitment of the lung, plan wake up and extubate pending patient condition. Lilli Garrison Product Support Specialist PGY3 07/04/2023 6:28 * Ban Guerrero RT - 07/04/2023 0559 EDT Respiratory Progress Note Indications for Respiratory therapy: ICU Patient, Mechanically ventilated Data Vitals: Heart Rate: 85 BPM, Resp: 19, SpO2: 100 % FIO2/O2 Device: Vent RT Orders: Mechanical Ventilation, Action/Events Respiratory events; Intubated at 5:30 a.m. for bronchoscopy. Higher peep in order to help inflate left lower lobes. Plan is to repeat chest xray at 7:30, assess need for additional bronch, SBT and extubate damien. Tube placement and position confirmed by bronchoscopy. Extubate to high flow. Response/Results Weaning and Toleration of treatments; Tolerated intubation and mechanical ventilation well. RT MEJIA 07/04/23 * Gardenia Brewster RN - 07/04/2023 0504 EDT Pt will need central line access if further IV access needed as peripheral venous access options have been exhausted with ultrasound assessment of bilateral arms, only place viable for new PIV at this time was R basilic, all other veins upon assessment are either too small diameter or non-compressible. 20G 1.75 u/s IV placed to R basilic for increased IV needs d/t pt currently being prepped for intubation. * Rocky Jacobs MD - 07/04/2023 0438 EDT SICU Attending Brief Note Attending Attestation: I was asked by Hira Franklin MD to consult on this critically ill patient. My involvement was required to monitor and direct the critical care that has been provided for the aforementioned life-threatening insults. I have seen and examined the patient with the resident on 07/04/2023 and I agree with their assessment and plan. Principal Problem: Necrotizing fasciitis (HCC-CMS) Active Problems: Necrotizing soft tissue infection Cardiopulmonary arrest with successful resuscitation ([facility]-CMS) Type 2 diabetes mellitus Complete heart block (HCC-CMS) Palliative care by specialist Insufficiency, respiratory, acute Electrolyte and fluid disorder Acute respiratory failure with hypoxia (HCC-CMS) 52 yo in Hx for approx 3 weeks for nec fasc s/p multiple washouts. Worsening hypoxia on the floor and found to have left sided mucus plug on CT with essentially complete left lung collapse requiring HFNC and BIPAP. On going attempts for air clearance with little success. D/w patient for trial of vest treatment, then likely move toward elective intubation and therapeutic bronch. I spent greater than 35 minutes rendering critical care to this patient, exclusive of procedures. Rocky Jacobs MD 07/04/2023 4:38 * Ban Guerrero, RT - 07/04/2023 0401 EDT Respiratory Progress Note Indications for Respiratory therapy: ICU Patient Data Vitals: Heart Rate: 102 BPM, Resp: 28, SpO2: 94 % FIO2/O2 Device: O2 Flow Rate (L/min): 60 l/min, , O2 Device: High flow nasal cannula, FIO2 %: 100 % RT Orders: BiPap, HFNC, Vest, VPEP Action/Events Respiratory events; To unit at 7:15, placed on BiPap. Did well for first few hours, slept, tolerating BiPap well. DuoNeb through [employer] on Bipap. Approx 1 a.m. began to have more frequent desaturations, of longer duration. Attempted flutter valve therapy, however patient unable to tolerate being off BiPap for longer than 5-6 minutes without desaturations into low 80's. Placed on HFNC at 2:10 a.m. with maximum settings (60 LPM/100%) and used flutter valve then -- able to expectorate small amounts of white/clear, thick/thin secretions. Discussion with physicians regarding plan. Vest therapy initiated at 3:30 a.m., and patient tolerated well -- able to tolerate 1.5-2 minute bursts, coughing and producing small amounts and self suctioning. Immediately after treatment, patient looking brighter, O2 saturations improved to 98% and seeming to hold, breath sounds indicate better aeration. Response/Results Weaning and Toleration of treatments; See detailed notes. RT MEJIA 07/04/23 * Zaira High RN - 07/04/2023 0305 EDT Pt began desatting early this AM and having increased work of breathing, tachycardia, and anxiety on the bipap. ACS service paged and came to bedside to evaluate patient - 0.5mg of ativan, 40mg of lasix ordered and given, chest x ray also done. SICU service consulted. Pt taken off bipap and on 100%/ 55L on [place]. Encouraging aggressive pulmonary toilet with patient and educated on use of flutter device. Continuing to monitor patient respiratory status. * Zaira High RN - 07/03/2023 2239 EDT FOUR EYES SKIN ASSESSMENT Four Eyes skin assessment was performed on admission to the unit by Zaira High RN and [place] POP . Patient has the following devices at the time of this assessment: BP cuff, Peripheral IV, Vuong, and Rectal tube. Device related pressure injury present? No Areas of concern: Fill in detail for areas of concern [] Occiput [] Nose [] Ear [] Lip [] Scapula [] Spinous process [] Shoulder [] Elbow [] Iliac crest [x] Sacrum/coccyx Pt has sacral necrotizing fasciitis covered by wound vac. [] Ischial tuberosity [] Trochanter [] Knee [] Malleolus [] Heel [] Toe [] Other: Last Jerson Score: 15 Instructions: Add LDA for any identified wounds Add [place] image for any suspected PI or non surgical wounds Order wound consult if suspected PI identified If Jerson is < or = to 16, initiate Pressure Injury Prevention Bundle ([id number]). 07/03/2023 22:39 * Michelle Schaefer RN - 07/03/2023 1753 EDT Rapid Response Team Nursing Note (SBAR) Team Times: Call Type: RN Only Call Time: 1606 Call Date: 07/03/23 Call Originator: Nurse SAY Callback Time: 1606 SAY Arrival at Bedside: 1612 Team Completion Time: 1700 SAY Completion Time: 171 Code Status: Full Initial Vitals: BP Source: Mechanical Cuff BP: (!) 153/72 BP MAP: 96 mm Hg BP Cuff Location: Left arm Heart Rate: 79 BPM Pulse: 92 Resp: (!) 36 SpO2: 92 % Temp: 36.9 ??C (98.4 ??F) Temp src: Axillary Neurological Assessment:on arrival pt is in hospital bed, is awake, alert, moving all extremities, ill appearing , Cardiovascular Assessment:skin is pale, warm , dry , not on telemetry + pulses Respiratory Assessment:increased O2 demand throughout the shift, Rt aware, given Duoneb no improvement, Lasix + diuresis approx 1 liter per primary RN , poor cough effort, IS and [place] encouraged, O2 Device: Venturi mask O2 Flow Rate (L/min): 12 l/min Breath Sounds Bilateral: Diminished Breath Sounds Left: Coarse crackles Breath Sounds Right: Diminished GI/ Assessment:Vuong to BSD , + clear yellow urine, Rectal tube dark brown stool wound vac to R gluteal , ( nev fasc s/p debridement x 2 OSH, x 1 [facility]) Patient Status: Disposition: (assist with transfer to CT , plan to transfer to SICU determined after CT read) Testing: CT Scan Team Members: SAY (Name): Michelle Schaefer RN Respiratory (Name): Alayna RT/Sonja RN Patient Support (Name): Eloisa Martinez RN (Name): Erica RN Other Members (Name): Jairo RN Call debriefed with: Nurse;Charge Nurse;Doctor Additional Detail:RN only call to inform SAY team of need for chest CT due to increased work of breathing and increased O2 demand CXR earlier today showed opacification Left lung , mucous plugging vspul edema, trialed pt on NRB flat in bed did tolerate that and assisted with transport to CT on NRB, O2 sat 93-98%, return to B683 , return to 50% ventimask, handoff to Jairo Retail Pharmacist RN [id number] update plan is to transfer to SICU , CT read extensive mucous plugging , extensive circumferential left pleural effusion , atelectasis , pneumonia , to likely need BIPAP * Tai Azar MD - 07/03/2023 1715 EDT ACS Brief Update Note Notified by nursing re: desaturations and requiring ventimask today. Duonebs given without improvement. Has been receiving IV diuresis, and PO lasix daily. Net neg 2.7 liters yesterday. History of smoking and has been having increased mucus production, wet cough. CXR with opacification of L lung, CT chest ordered. Pt required nonrebreather for transport to CT scan, which revealed total collapse of left lung. Concern for severe mucus plug, plan for RT consult for BIPAP. Plan to transfer to SICU for BIPAP requirement in attempt to re-expand left lung. Tai Azar MD Surgery PGY-3 #[id number] 07/03/2023 17:20 * Nedra Armendariz RN - 07/03/2023 1530 EDT CASE MANAGEMENT UPDATE: Level of Care: Acute/ IP Admission Point of Origin: [facility] Appropriate for Transfer Return vs Alternative Facility: N/a per team Discharge plan/ Estimated date: TBD Insurance/ LTC Medicaid Status: Medicaid Barriers to d/c: N/a; medically complex Support Network: anya Lezama ([phone]); Henrietta Ayden ([phone]) Additional Needs/ Next Steps: Nec fasc debridement x2 (OSH) Serial debridement, repair rectal injury (06/14) Additional debridement, washout (06/16) Additional debridement, washout, partial closure (06/18) Wound vac application (06/21) Chart reviewed and received updates from Primary team this morning in rounds. Provided check-in with patient at bedside. Patient remains tachypneic and on Venti mask. RT following. Requires close monitoring. Had [place] changed on 06/25. On 06/30 acell matrix applied to wound site with vac replaced with plan to remain intact x7 days (will reassess 07/07 to remove vac). STSG pending. This CM will continue to follow and assist with coordination of disposition plan dependent on clinical course/ care team recommendations. Please reach out with any additional questions/ concerns, or acute changes in care plan in order toprovide patient with adequate supports. Nedra Armendariz RN CM CMSW Department (Available via [employer]) * Sandy Chang RN - 07/03/2023 1517 EDT Data: Assumed care @0700. Wound vac to necrotizing fascitis wound, rectal and vuong in for healing,coarse crackles in both lungs, switched from nasal canula to venti mask at shift change this morning. Action: Chest x-ray done at bedside, medicated per MAR, encouraged turns and IS and coughing. Had to put venti mask to highest setting and pt going between high 80's and low 90's at this setting. Went down for chest CT. Response: Pt being transferred to SICU for closer monitoring of respiratory status. SANDY CHANG RN 07/03/2023 15:15 * Moo Monique MD - 07/03/2023 0859 EDT Surgery Progress Note Service Date: 07/03/2023 Admit Date: 06/13/2023 23:23 Procedure: Nec fasc debridement x2 (OSH) Serial debridement, repair rectal injury (06/14) Additional debridement, washout (06/16) Additional debridement, washout, partial closure (06/18) Washout, wound vac change (06/25) Chief Complaint: NSTI 24 Hour Events: Met net negative fluid goal yesterday Received Lasix 40 x 2 Marinol ordered, not in stock Increased bowel regimen Increase in O2 requirement O/N, 8L venti-mask this morning Subjective States she slept all right overnight, that her pain is improved, however she has been short of breath and has had some chills overnight. She reports no nausea/vomiting/fever/chest pain. Objective Vital Signs Temp: [37 ??C (98.6 ??F)-37.9 ??C (100.2 ??F)] , Heart Rate: [87 BPM-96 BPM] , Pulse: [85-95] , Pulse From Oximetry: [90 BPM-96 BPM] , Resp: [18-48] , BP: (125-149)/(50-72) , SpO2: [90 %-98 %] Physical Exam General Appearance: Mild distress, alert, Ventimask in place Neuro: alert, oriented, moving all four limbs symmetrically Lun L Ventimask, productive cough Heart: regular rate and rhythm Abdomen: soft, nontender, rectal tube in place Extremities: Warm and well perfused Wound: R gluteal wound wound vac holding suction Labs: CBC: Recent Labs 07/01/2322807/02/23 0742 07/03/23 0629 WBC 11.22 10.00 9.16 RBC 2.50* 2.57* 2.40* HGB 7.4* 7.4* 7.1* HCT 21.7* 21.5* 21.2* MCV 87 84 88 MCH 29.6 28.8 29.6 MCHC 34.1 34.4 33.5 PLT 565* 568* 548* NEUTROABS 7.90 7.72 6.67 BMP: Recent Labs 07/01/2322807/01/23 1510 07/02/23 0742 07/02/23 1254 07/02/23 1747 07/02/23 2340 07/03/23 0629 NA 130* < > 128* < > 127* 128* 130* K 4.0 -- 4.0 -- -- -- 3.3* CL 97 -- 93* -- -- -- 95* CO2 24 -- 27 -- -- -- 27 BUN 13 -- 12 -- -- -- 12 CREATININE 0.66 -- 0.47* -- -- -- 0.47* CALCIUM 8.4* -- 8.3* -- -- -- 8.0* MG 1.7 -- 1.8 -- -- -- 1.9 PHOS 4.5 -- 4.4 -- -- -- 4.0 < > = values in this interval not displayed. Micro: 06/13 OR cultures: mixed GP and GN organisms, no speciation available 06/15 blood cx: NGTD Imaging: (Please refer to the chart for the full radiology reports including all of the findings and impressions.) pending Assessment 52 y.o. female with a history of HTN and T2DM who presented as a transfer from [facility] on 06/12 with necrotizing fasciitis. S/p debridement x2 at OSH and s/p debridement at [facility] on 06/14.Post-operative bradycardic arrest x2, suspected heart block vs vagal event. Recovered normal cardiac function, EP cards signed off. Has been undergoing local wound care and serial debridements, as well as pulmonary toilet. Plan for PT tomás for dispo planning while continuing local wound care. Next vac change on Saturday. Pain improved, tolerating wound VAC changes. Increasing O2 requirement overnight and into the morning, now on 6 L Ventimask. Chest x-ray orderedshowed opacification of the left lung, concern for mucous plugging versus pulmonary edema. Respiratory therapy evaluation and treatment ordered, will follow-up therapies. Plan Multimodal pain control Consistent carbohydrate diet No abx due to adequate source control Rectal tube for wound hygiene Twice daily MiraLAX Marinol BID with meals Nystatin powder BID ordered to perianal/gluteal cleft skin Continue gentle diuresis daily Continue bedtime seroquel 25 mg qhs Wound vac change 07/07 (MW) Respiratory therapy evaluation for increasing O2 requirement, likely mucous plugging on chest x-ray, encourage I-S and pulmonary toilet DVT ppx: lovenox 40 mg qhs Dispo: PT toáms KENNY MD 07/03/2023 8:59 PGY1 ACS #[id number] Attestation: I performed or was present during the cooper or critical portions of the visit and participated in the management of the patient on 07/03/2023. I agree with the findings and plan of care documented in the resident's/fellow's note.Working a little harder to breathe this am. Cxr shows mostly white out of left lung. RT consulted for aggressive airway clearance. States she's doing okay. Woundvac in place and holding. Encourage po intake. Moo Monique MD 07/03/2023 15:20 * Damaso Dhillon, RT - 07/03/2023 0831 EDT Respiratory Consult/Progress Note Indications for Respiratory therapy: airway clearance Data Vitals: Heart Rate: 92 BPM, Resp: 28, SpO2: 93 % FIO2/O2 Device: O2 Flow Rate (L/min): 8 l/min, , O2 Device: Venturi mask, FIO2 %: 40 % RT Orders: qid duoneb Qid vpep Protocol Scoring: Bronchodilator/Inhalation Therapy Frequency Bronchodilator - Clinical Indications: LIP order Breath Sounds: Any abnormal BS decreased Response: No change / no treatment Pulse: <100 Resp Rate: 26-32 SOB: At rest Total Score: 5 Comment:: QID Frequency Based On Total Score: 0-4 = PRN 5-7 = QID 8-10 = Q4H 11-12 = Q2H Airway Clearance Therapy Frequency Airway Clearance - Clinical Indications: History of mucous production Breath Sounds: Rhonchi / crackles Sputum: Small (tsp) / None Consistency: None Cough Effort: Strong/ non-productive Color: None Total Score: 1 Comment: PRN - Independent Frequency Based On Total Score: 0-3 = PRN 4-6 = QID and PRN 7-9 = Q4H and PRN 10-11 = Q2H and PRN Hyperinflation Therapy Frequency Hyperinflation - Clinical Indications: Prevent atelectasis Breath Sounds: Diminished / crackles Surgery: Yes X-Ray / Atelectasis: No O2 Requirements: > 4 L above baseline Mobility Status: Mobile / at baseline Total: 7 Comment: QID Frequency Based On Total Score: 0-3 = PRN 4-6 = QID and PRN 7-9 = Q4H and PRN 10-12 = Q2H and PRN Action/Events Respiratory events; 0815: pt groggy when RT came in for treatment. Breath sounds coarse. Pt sounds more wet than yesterday. Now with increase oxygen requirements and increase in RR and work of breathing. Pt on 40% VM with spo2 93%. RN messaged team about possibly needing additional lasix. Pt may need a repeat CXR. Nebgiven, no change. Pt too sleepy to participate in vpep but did have a good loose cough when asked. 1158: pt more alert this afternoon. Cxr shows significant pleural effusion with atelectasis and some edema. Mucus plugging does not seem to be the issue. More concerned with pulmonary edema/effusion and the atelectasis. Working with pt on ezpap and vpep for hyperinflation and airway clearance. Pt received more lasix. Scheduled q4. Pt does become dyspneic with treatment but had great effort. Strong congested cough. Pt may end up needing hfnc or bipap if not showing much improvement DAMASO DHILLON, RT 07/03/23 * Sonja Ricketts, RT - 07/03/2023 0556 EDT Respiratory Consult/Progress Note Indications for Respiratory therapy: SOB, Hypoxia Data Vitals: Heart Rate: 95 BPM, Resp: (!) 32, SpO2: 94 % FIO2/O2 Device: O2 Flow Rate (L/min): (S) 8 l/min, , O2 Device: Venturi mask, FIO2 %: (S) 40 % RT Orders: QID Duoneb QID Ezpap/Vpep PRN Albuterol Protocol Scoring: Bronchodilator/Inhalation Therapy Frequency Bronchodilator - Clinical Indications: LIP order Breath Sounds: Any abnormal BS decreased Response: Mild response, increase subjective per CODE MACHINE OPERATOR Pulse: <100 Resp Rate: 26-32 SOB: With exertion Total Score: 5 Comment:: QID Frequency Based On Total Score: 0-4 = PRN 5-7 = QID 8-10 = Q4H 11-12 = Q2H Airway Clearance Therapy Frequency Airway Clearance - Clinical Indications: Productive cough Breath Sounds: Rhonchi / crackles Sputum: Small (tsp) / None Consistency: Thin / thick Cough Effort: Strong/ productive Color: Clear / white Total Score: 3 Comment: PRN - Independent Frequency Based On Total Score: 0-3 = PRN 4-6 = QID and PRN 7-9 = Q4H and PRN 10-11 = Q2H and PRN Hyperinflation Therapy Frequency Hyperinflation - Clinical Indications: Prevent atelectasis Breath Sounds: Other Surgery: Yes X-Ray / Atelectasis: No O2 Requirements: > 4 L above baseline Mobility Status: Mobile / at baseline Total: 6 Comment: QID Frequency Based On Total Score: 0-3 = PRN 4-6 = QID and PRN 7-9 = Q4H and PRN 10-12 = Q2H and PRN Action/Events Respiratory events; 0452 RT called to bedside for one time duoneb treatment. Pt found on 4L NC SpO2 88%. Flow increasedto 6L with no improvement in saturations. Breath sounds diminished bilaterally. RR 48 bpm. Duoneb given, improvement in aeration noted, saturations sustaining 87-89%. Ativan given by RN post treatment. Pt mouth breathing with congested nares. Pt switched to Venti mask on 12L 50%, titrated to 8L 40%. RR down to 32 bpm MD Rito Rodriges and RN notified of changes. WCTM. SONJA RICKETTS, RT 07/03/23 * Ramón Peraza MD - 07/02/2023 1709 EDT Request for Documentation Clarification Della Browning ; VISIT [id number]; ACCT [id number] Query Response Sent: 07/02/23 11:23 EDT From: DANA MINER Query question: Please further clarify the nature of the debridement procedure performed on 06/19/2023: Provider response: Excisional Debridement Query question: Please identify instrumentation used: Provider response: Scalpel Query question: Please describe the technique used: Provider response: Cutting Query question: Please identify depth of debridement: Provider response: Down to and including subcutaneous tissue and fascia Original Query Sent: 06/20/23 11:19 EDT From: FOREIGN MIRANDA To: DANA MINER, RAMÓN PERAAZ MD Please further clarify the nature of the debridement procedure performed on 06/19/2023: * Excisional Debridement * Non-excisional Debridement * Other explanation of clinical findings Please identify instrumentation used: * Scalpel * Scissors * Curette * Laser * Ultrasonic assist * Versa jet * Other explanation of clinical findings Please describe the technique used: * Cutting * Scrubbing * Brushing * Washing/irrigating * Trimming/scraping * Enzymatic * Chemical * Other explanation of clinical findings Please identify depth of debridement: * Necrotic skin * Down to and including subcutaneous tissue and fascia * Down to and including muscle * Down to and including bone * Other explanation of clinical findings Clinical Information * Patient Summary: admitted for necrotizing fasciitis and dedrided in OR> * Please refer to OP note dated: OR Surgeon by Dana Miner at 06/19/2023 14:32 NARRATIVE: The patient was identified in the preoperative area and after having been confirmed to have gone through an informed consent process was brought to the operating room. Anesthesia ensured they had all adequate lines and monitors, antibiotics were confirmed to have been recently administered on the floor, Venodyne's were placed on the patient. She was already intubated. The patient was then placed in the prone position on the operating table then prepped and draped in the normal sterile fashion. Prior to any incisions or injections, a safety timeout was performed. The wound was closely examined and any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 Jason MS CCC-PROCESS MANAGER Subjective/Objective SUBJECTIVE: Not very re: appetite OBJECTIVE: PROCESS MANAGER returns to address oral-pharyngeal swallowing Current Precautions: none identified other than significant wound on buttocks 24o Events Relevant to PROCESS MANAGER: EN tube removed due to improved intake PMH: No past medical history on file. Vision: adequate for session Hearing: wears B hearing aids (BTE) Baseline Communication-Cognitive functioning: independent although was not employed prior to admission Current Diet: Regular Diet - Mechanical soft per recommendations Diet prior to admission: regular Current Medications: Reviewed by this provider during medical record review Current Status: Cognitive Status: Patient was alert and cooperative during evaluation. Patient presented with cognitive-linguistic impairments during evaluation. Respiratory Status: Respiratory status was judged to be WFL to support oral feeding.ongoing RT interventions for wheeziness- mitigated by jessica txs; Clinical Swallowing: Patient/Family: consented to completing the clinical bedside swallow exam. Oral Peripheral Motor Exam: Face: Face was symmetrical with adequate strength and range of motion. Lips: Adequate labial strength and range of motion. Tongue: Adequate lingual strength, range of motion and coordination. Velum: Unable to view during the evaluation. Dentition: Wears dentures on top and bottom per pt report Laryngeal Excursion: present Speech Intelligibility: Speech with functional intelligibility. No deficits noted. Vocal Quality: Patient presents with a Mild hoarse/harsh: vocal quality. Cough: Patient presents with a strong, productive cough. Positioning: Seen at bedside for evaluation. Consistencies Tested: was assessed with thin liquids . Declined to take food items today. Sipped on Boost Methods of Delivery: Patient was able to self administer all items with PROCESS MANAGER assistance using a spoon, cup and straw. Oral Phase Findings: Oral phase presents with functional containment, coordination and clearance. Pharyngeal Phase: Hyo-laryngeal excursion is present. No overt signs/ symptoms of laryngeal penetration/ aspiration were identified. Some wheezy respirations which were present throughout session Esophageal Phase: did not exhibit overt signs of esophageal difficulty Endorsing more frequent episodes of reflux Compensatory Strategies: The following compensatory swallow strategies were attempted during today's evaluation: soft, chopped diet textures Patient/Family Education/Training: Topic: Patient/Family education and training was completed today including the role of Speech-Language Pathology, results of today's exam/recommendations, anatomy and physiology of the swallowing mechanism,and questions were addressed. Learner: patient Method of Education: Verbal Barriers to Learning/Education: patient's altered ability to learn/carry over information at this time Patient: was able to verbalize understanding of information Assessment/Plan Assessment /CLINICAL IMPRESSIONS: is a 52 y.o. female admitted with Necrotizing fasciitis ([facility]) [M72.6] A clinical swallow consult was completed today by Speech Language Pathology secondary to concerns for oropharyngeal dysphagia, and risk of laryngeal penetration/aspiration. currently presents with swallowing which is grossly functional. Not wearing dentures which impacts consumption of solid food textures. Compensatory strategies appear effective in mitigating signs and symptoms of dysphagia. Swallow function is judged to be stable and will follow clinical course. Anticipate patient will tolerate current recommendations. No further PROCESS MANAGER. PLANS/RECOMMENDATIONS: Food and Liquid Textures: Continue Mechanical Soft diet textures to ease chewing/swallowing effort in setting of not wearing dentures, compromised respiratory status and positioning constraints due to wound on buttocks Defer to MD and RD to determine nutritional parameters Medication Administration: Whole in a bite of pureed food Feeding/Eating Strategies: Please assist with tray set up and upright positioning for PO PROCESS MANAGER to follow up : No Anticipated PROCESS MANAGER needs at discharge from Acute Medical Setting: see below Recommended Discharge Setting based on current status: anticipate likely need for intensive rehab at discharge. May benefit from formal Communication- Cognitive evaluation if demonstrating residual impairments as she strengthens medically. Taniya Jason MS CCC-PROCESS MANAGER 06/30/2023 14:18 Speech-Language Pathologist Acute Rehabilitation Therapy (PROCESS MANAGER/OT/PT) Secure Chat preferred #[phone] (Saturday- from [phone]) Float PROCESS MANAGER Pager #[phone] (Daily from [phone]) * Moo Monique MD - 06/30/2023 0949 EDT Surgery Progress Note Service Date: 06/30/2023 Admit Date: 06/13/2023 23:23 Procedure: Nec fasc debridement x2 (OSH) Serial debridement, repair rectal injury (06/14) Additional debridement, washout (06/16) Additional debridement, washout, partial closure (06/18) Washout, wound vac change (06/25) Chief Complaint: NSTI 24 Hour Events: DAVID tube removed Subjective Reports fevers, chills. Pain controlled with medication. Wondering when she will get back to her hospital room. 1:1 sitter at bedside. Objective Vital Signs Temp: [36.5 ??C (97.7 ??F)-36.9 ??C (98.5 ??F)] , Heart Rate: [85 BPM-93 BPM] , Pulse: [87-94] , Pulse From Oximetry: [83 BPM-93 BPM] , Resp: [18-24] , BP: (108-138)/(48-65) , SpO2: [95 %-100 %] Physical Exam General Appearance: calm, in no acute distress Neuro: alert, oriented, moving all four limbs symmetrically Lung: unlabored on room air Heart: regular rate and rhythm Abdomen: soft, nontender, rectal tube in place Extremities: Warm and well perfused, mild edema Wound: R gluteal wound wound vac holding suction with intermittent air leak Labs: CBC: Recent Labs 06/28/23 0936 06/29/23 1433 06/30/23 0804 WBC 10.32 9.81 9.18 RBC 2.42* 2.63* 2.41* HGB 7.3* 7.7* 7.0* HCT 21.4* 23.2* 20.7* MCV 88 88 86 MCH 30.2 29.3 29.0 MCHC 34.1 33.2 33.8 PLT 465* 488* 529* NEUTROABS 8.04 7.38 6.61 BMP: Recent Labs 06/28/23 0936 06/28/23 1443 06/29/23 0915 06/29/23 1433 06/29/23 1745 06/29/23 2337 06/30/23 0804 NA 127* < > 131* < > 130* 130* 130* K 4.5 -- 4.0 -- -- -- 4.1 CL 96 -- 100 -- -- -- 99 CO2 24 -- 24 -- -- -- 22 BUN 12 -- 10 -- -- -- 9* CREATININE 0.52 -- 0.43* -- -- -- 0.41* CALCIUM 7.8* -- 8.1* -- -- -- 8.3* MG 1.8 -- 1.9 -- -- -- 1.9 PHOS 4.0 -- 4.1 -- -- -- 4.0 < > = values in this interval not displayed. Micro: 06/13 OR cultures: mixed GP and GN organisms, no speciation available 06/15 blood cx: NGTD Imaging: (Please refer to the chart for the full radiology reports including all of the findings and impressions.) XR CHEST PORTABLE 1 VIEW Result Date: 06/26/2023 1. No significant change in persistent bilateral ill-defined opacities and indistinct pulmonary vasculature, consistent with pulmonary edema. 2. The left costophrenic angles are more obscured, may bedue to patient position but could represent a new small left pleural effusion. Assessment 52 y.o. female with a history of HTN and T2DM who presented as a transfer from [facility] on 06/12 with necrotizing fasciitis. S/p debridement x2 at OSH and s/p debridement at [facility] on 06/14.Post-operative bradycardic arrest x2, suspected heart block vs vagal event. Recovered normal cardiac function, EP cards signed off. Has been undergoing local wound care and serial debridements, as well as pulmonary toilet. Plan for PT tomás for dispo planning while continuing local wound care. Next vac change on Saturday. More combative overnight has 1:1 sitter now. Plan Multimodal pain control Consistent carbohydrate diet No abx due to adequate source control Rectal tube for wound hygiene Nystatin powder BID ordered to perianal/gluteal cleft skin Continue gentle diuresis daily Lasix 20 IV every day DVT ppx: lovenox 40 mg qhs Dispo: PT eval ZAHIRA VERAS MD 06/30/2023 9:50 PGY1 Attestation: I performed or was present during the cooper or critical portions of the visit and participated in the management of the patient on 06/30/2023. I agree with the findings and plan of care documented in the resident's/fellow's note.Feels okay today, vac in place to gluteal wound. Encourage pointake. Vac change on Saturday. Moo Monique MD 06/30/2023 21:02 * Fabian May, RT - 06/30/2023 1158 EDT Respiratory Consult/Progress Note Indications for Respiratory therapy: Wheezing, SOB Data Vitals: Heart Rate: 85 BPM, Resp: 20, SpO2: 100 % FIO2/O2 Device: O2 Flow Rate (L/min): 2 l/min, , O2 Device: Nasal cannula, FIO2 %: 40 % RT Orders: Duoneb QID Vpep QID Albuterol MDI prn Protocol Scoring: Bronchodilator/Inhalation Therapy Frequency Bronchodilator - Clinical Indications: History of bronchospasm Breath Sounds: Faint wheezing, decreased throughout Response: Mild response, increase subjective per CODE MACHINE OPERATOR Pulse: <100 Resp Rate: 18-25 SOB: At rest Total Score: 6 Comment:: qid Frequency Based On Total Score: 0-4 = PRN 5-7 = QID 8-10 = Q4H 11-12 = Q2H Airway Clearance Therapy Frequency Airway Clearance - Clinical Indications: Productive cough Breath Sounds: Rhonchi / crackles Sputum: Small (tsp) / None Consistency: None Cough Effort: Strong/ productive Color: Clear / white Total Score: 2 Comment: vpep use independent. Frequency Based On Total Score: 0-3 = PRN 4-6 = QID and PRN 7-9 = Q4H and PRN 10-11 = Q2H and PRN Hyperinflation Therapy Frequency Hyperinflation - Clinical Indications: Prevent atelectasis Breath Sounds: Other Surgery: Yes X-Ray / Atelectasis: No O2 Requirements: 0-2 L above baseline Mobility Status: Mobile / at baseline Total: 4 Comment: prn Frequency Based On Total Score: 0-3 = PRN 4-6 = QID and PRN 7-9 = Q4H and PRN 10-12 = Q2H and PRN Action/Events Respiratory events; Pt care assumed at 2300; RN notified RT of patient increased WOB at 2300. Patient given 2x nebs overnight with + wheezing at 0400, patient states improvement in WOB. NC weaned to 2lpm at this time. Patient uses vpep independent at bedside pre and post neb. Pt maintained QID per scoring protocol. FABIAN MAY, RT 06/30/23 * Mell Martinez, RT - 06/29/2023 1225 EDT Respiratory Consult/Progress Note Indications for Respiratory therapy: LIP order for Duonebs Data Vitals: Heart Rate: 80 BPM, Resp: 18, SpO2: 96 % FIO2/O2 Device: O2 Flow Rate (L/min): 4 l/min, , O2 Device: Nasal cannula, RT Orders: Q4 Duoneb - changed to QID @ 0845 Protocol Scoring: Bronchodilator/Inhalation Therapy Frequency Bronchodilator - Clinical Indications: LIP order Breath Sounds: Any abnormal BS decreased Response: Mild response, increase subjective per CODE MACHINE OPERATOR Pulse: <100 Resp Rate: 18-25 SOB: With exertion Total Score: 4 Comment:: change to QID Frequency Based On Total Score: 0-4 = PRN 5-7 = QID 8-10 = Q4H 11-12 = Q2H Airway Clearance Therapy Frequency Airway Clearance - Clinical Indications: Productive cough Breath Sounds: Rhonchi / crackles Sputum: Small (tsp) / None Consistency: None Cough Effort: Strong/ productive Color: None Total Score: 2 Comment: VPEP @ bedside. clears with coughing Frequency Based On Total Score: 0-3 = PRN 4-6 = QID and PRN 7-9 = Q4H and PRN 10-11 = Q2H and PRN Hyperinflation Therapy Frequency Hyperinflation - Clinical Indications: No clinical indications Breath Sounds: Other Surgery: Yes X-Ray / Atelectasis: No O2 Requirements: 0-2 L above baseline Mobility Status: Mobile / at baseline Total: 4 Comment: IS @ bedside Frequency Based On Total Score: 0-3 = PRN 4-6 = QID and PRN 7-9 = Q4H and PRN 10-12 = Q2H and PRN Action/Events 0845: In to see patient for her respiratory treatment. Breath sounds- diminished with some rhonchi noted. Duoneb administered. Patient coughs- swallows secretions. Breath sounds increase in aeration post treatment, rhonchi improves. Changed to QID per bronchodilator scoring. She continues on a 4L NC, she states she uses oxygen at home but it is unclear how much. 1225: Duoneb administered. Breath sounds- increase in aeration post treatment, continues to have some rhonchi that clears with coughing. Weaned NC to 3L. No distress noted. Plan Wean oxygen as tolerated. AERON BLONDIN, RT 06/29/23 * Chato Patel MD - 06/29/2023 0849 EDT Surgery Progress Note Service Date: 06/29/2023 Admit Date: 06/13/2023 23:23 Procedure: Nec fasc debridement x2 (OSH) Serial debridement, repair rectal injury (06/14) Additional debridement, washout (06/16) Additional debridement, washout, partial closure (06/18) Washout, wound vac change (06/25) Chief Complaint: NSTI 24 Hour Events: Removed vac and rectal tube overnight Subjective Sleeping this am. 1:1 sitter at bedside. Reports that she was less agitated once the sitter got there. Objective Vital Signs Temp: [36.8 ??C (98.2 ??F)-37.3 ??C (99.2 ??F)] , Heart Rate: [80 BPM-99 BPM] , Pulse: [80-88] , Pulse From Oximetry: [82 BPM-100 BPM] , Resp: [15-24] , BP: (113-151)/(58-100) , SpO2: [92 %-100 %] Physical Exam General Appearance: calm, in no distress Neuro: alert, oriented, moving all four limbs symmetrically Lung: unlabored on room air Heart: regular rate and rhythm Abdomen: soft, nontender, rectal tube in place Extremities: Warm and well perfused, mild edema Wound: R gluteal wound wound vac holding suction, erythema surrounding perianal region, nystatin powder applied Labs: CBC: Recent Labs 06/27/23 0906 06/28/23 0936 WBC 8.97 10.32 RBC 2.55* 2.42* HGB 7.6* 7.3* HCT 22.7* 21.4* MCV 89 88 MCH 29.8 30.2 MCHC 33.5 34.1 PLT 378* 465* NEUTROABS 6.84 8.04 BMP: Recent Labs 06/27/23 0906 06/28/23 0936 06/28/23 1443 06/28/23 1810 06/29/23 0004 NA 134* 127* 127* 127* 129* K 4.1 4.5 -- -- -- CL 100 96 -- -- -- CO2 23 24 -- -- -- BUN 14 12 -- -- -- CREATININE 0.53 0.52 -- -- -- CALCIUM 7.7* 7.8* -- -- -- MG 1.9 1.8 -- -- -- PHOS 3.7 4.0 -- -- -- Micro: 06/13 OR cultures: mixed GP and GN organisms, no speciation available 06/15 blood cx: NGTD Imaging: (Please refer to the chart for the full radiology reports including all of the findings and impressions.) XR CHEST PORTABLE 1 VIEW Result Date: 06/26/2023 1. No significant change in persistent bilateral ill-defined opacities and indistinct pulmonary vasculature, consistent with pulmonary edema. 2. The left costophrenic angles are more obscured, may bedue to patient position but could represent a new small left pleural effusion. Assessment 52 y.o. female with a history of HTN and T2DM who presented as a transfer from [facility] on 06/12 with necrotizing fasciitis. S/p debridement x2 at OSH and s/p debridement at [facility] on 06/14.Post-operative bradycardic arrest x2, suspected heart block vs vagal event. Recovered normal cardiac function, EP cards signed off. Has been undergoing local wound care and serial debridements, as well as pulmonary toilet. Plan for PT eval for dispo planning while continuing local wound care. Next vac change on Saturday. More combative overnight has 1:1 sitter now. Consider adding seroquel. Plan Multimodal pain control Continue cc, mechanical soft diet. Bowel regimen, has DAVID tube, keep for now No abx due to adequate source control Rectal tube for wound hygiene Nystatin powder BID ordered to perianal/gluteal cleft skin Continue gentle diuresis daily Lasix 20 IV every day DVT ppx: lovenox 40 mg qhs Dispo: PT eval CHATO PATEL MD 06/29/2023 8:49 PGY2 ACS pager #[phone] Associated attestation - Jorge Ba MD - 06/29/2023 1042 EDT Attestation: I performed or was present during the cooper or critical portions of the visit and participated in the management of the patient on 06/29/2023. I agree with the findings and plan of care documented in the resident's/MADELINE's note. - Ok to remove DAVID tube - Regular diet Jorge Ba MD Acute Care Surgery Pager: [phone] * Fabian May, RT - 06/29/2023 3887 EDT Respiratory Consult/Progress Note Indications for Respiratory therapy: PRN neb Data Vitals: Heart Rate: 82 BPM, Resp: 18, SpO2: 99 % FIO2/O2 Device: O2 Flow Rate (L/min): 4 l/min, O2 Device: Nasal cannula, RT Orders: Duoneb q4 per pt request Protocol Scoring: Bronchodilator/Inhalation Therapy Frequency Bronchodilator - Clinical Indications: No clinical indications Breath Sounds: Faint wheezing, decreased throughout Response: Mild response, increase subjective per CODE MACHINE OPERATOR Pulse: <100 Resp Rate: 18-25 SOB: With exertion Total Score: 5 Comment:: patient is requesting Q4 Frequency Based On Total Score: 0-4 = PRN 5-7 = QID 8-10 = Q4H 11-12 = Q2H Airway Clearance Therapy Frequency Airway Clearance - Clinical Indications: Rhonchi Breath Sounds: Rhonchi / crackles Sputum: Small (tsp) / None Consistency: None Cough Effort: Weak/ productive Color: None Total Score: 3 Comment: vPEP at bedside Frequency Based On Total Score: 0-3 = PRN 4-6 = QID and PRN 7-9 = Q4H and PRN 10-11 = Q2H and PRN Hyperinflation Therapy Frequency Hyperinflation - Clinical Indications: Prevent atelectasis Breath Sounds: Diminished / crackles Surgery: Yes X-Ray / Atelectasis: No O2 Requirements: 0-2 L above baseline Mobility Status: Mobile / at baseline Total: 5 Comment: Incentive spirometry at bedside Frequency Based On Total Score: 0-3 = PRN 4-6 = QID and PRN 7-9 = Q4H and PRN 10-12 = Q2H and PRN Action/Events Patient maintained on q4 nebs per request at this time. Will continue as ordered, encourage transition to prn. RT ADALGISA 06/29/23 * Ashleigh Stout, RD - 06/28/2023 1410 EDT Nutrition Assessment Note: Reassessment Admission date: 06/13/2023 23:23 BACKGROUND DATA 24 Hour Events: Recovering on the floor NAEO Lasix 20 IV every day Subjective: Pt thinks she is eating well and she is drinking 2 Boost/day. RN confirms she ate a good breakfast today MD would like to keep feeding tube in for two more days to see if pt. Can maintain current good intake. Current Nutrition Orders: Diet: Consistent Carbohydrate Diet, Mech Soft-- Boost Glucose Control TID TF off 06/23 Delegate Diet ordering to RD Nutrition Focused Physical Exam Subcutaneous Fat Assessment Orbital Region: Well-nourished (06/14/23 1520) Cheek Region: Well-nourished (06/14/23 1520) Upper Arm Region: Well-nourished (06/14/23 1520) Midaxillary Line: Not assessed (06/14/23 1520) Muscle Mass Assessment Congregation Region: Well-nourished (06/14/23 1520) Clavicle Region: Well-nourished (06/14/23 1520) Shoulder/Acromion/Clavicle Region: Well-nourished (06/14/23 1520) Scapula Region: Not assessed (06/14/23 1520) Hand Region: Not assessed (06/14/23 1520) Thigh/Patellar Region: Not assessed (06/14/23 1520) Calf Region: Not assessed (06/14/23 1520) NFPE Assessment Summary of Fat Wasting: No significant evidence of wasting (06/14/23 1520) Summary of Muscle Wasting: No significant evidence of wasting (06/14/23 1520) Physical Findings: Digestive Systems: Last BM : Rectal tube for wound hygiene Dentition: Teeth: Missing teeth per flowsheets Edema: non pitting to BLE Skin: excoriation, lacerations/incisions MV to buttock wound Allergies on file: Aspirin, Cymbalta [duloxetine], Lyrica [pregabalin], and Penicillins Anthropometrics: Height: 160 cm (63) Weights Filed This Admission 06/14/23 0000 06/19/23 0900 Weight: 86.2 kg (190 lb) 86.2 kg (190 lb) Body mass index is 33.66 kg/m??. Weight Change: stable Pertinent Medications: Current Facility-Administered Medications Medication Route Frequency alteplase (CATHFLO ACTIVASE) injection 2 mg intercatheter PRN amLODIPine (NORVASC) tablet 10 mg oral DAILY cloNIDine (CATAPRES) 0.3 mg/24 hr patch 1 Patch transdermal WEEKLY dextrose 50 % solution 12.5 g intravenous PRN enoxaparin (LOVENOX) injection 40 mg subcutaneous DAILY furosemide (LASIX) injection 20 mg intravenous DAILY glucagon injection 1 mg intramuscular PRN hydrALAZINE (APRESOLINE) injection 10 mg intravenous Q4H PRN HYDROmorphone (DILAUDID) tablet 2-4 mg oral Q3H PRN HYDROmorphone (PF) (DILAUDID) 0.5 mg/0.5 mL syringe 0.25-0.5 mg intravenous Q2H PRN insulin aspart U-100 (NOVOLOG FLEXPEN) injection subcutaneous QID AC & HS insulin glargine injection pen 22 Units subcutaneous DAILY L.A. INSULIN ipratropium-albuteroL (DUONEB) 0.5 mg-3 mg(2.5 mg base)/3 mL nebulizer solution 3 mL nebulization Q4H lidocaine 5 % (LIDODERM) patch 2 Patch transdermal DAILY LORazepam (ATIVAN) tablet 1 mg oral Q4H PRN methocarbamoL (ROBAXIN) tablet 750 mg oral QID Multivitamins with minerals + ferrous gluconate (CENTRUM) oral solution 15 mL oral DAILY naloxone (NARCAN) injection 0.1 mg intravenous PRN nystatin (MYCOSTATIN) powder topical BID papain-alpha amylase-cellulase (CLOG ZAPPER) 2-5 mL feeding tube PRN thiamine (VITAMIN B1) tablet 100 mg oral DAILY zinc sulfate (ZINCATE) capsule 220 mg oral DAILY Pertinent Labs: Lab Results Component Value Date/Time NA 127 (L) 06/28/2023 09:36 K 4.5 06/28/2023 09:36 CO2 24 06/28/2023 09:36 CL 96 06/28/2023 09:36 BUN 12 06/28/2023 09:36 CREATININE 0.52 06/28/2023 09:36 GLUCOSEPOC 124 (H) 06/28/2023 07:33 CALCIUM 7.8 (L) 06/28/2023 09:36 PHOS 4.0 06/28/2023 09:36 MG 1.8 06/28/2023 09:36 Lab Results Component Value Date/Time HGBA1C 8.2 (H) 06/14/2023 04:55 GLUCOSEPOC 124 (H) 06/28/2023 07:33 GLUCOSEPOC 117 (H) 06/28/2023 06:13 GLUCOSEPOC 133 (H) 06/27/2023 23:46 GLUCOSEPOC 185 (H) 06/27/2023 17:55 GLUCOSEPOC 155 (H) 06/27/2023 12:47 Estimated Nutrition Needs: MSJ x1.3 for wound healing (using 86.2 kg) = >1880 kcals/day 1.5 g/kg protein (using 65.9 kg adj wgt) - 2.0 g/kg protein (using 52.4 kg IBW) = 99-105 g protein/day Estimated Nutrition Intake: This am ate 100% breakfast and Boost, TF off 06/23 Calorie count result on 06/27/23: 69 gram protein and 1526 calories in 2 meals and 2 supplements recorded ASSESSMENT: Today was the most she has eaten per I/O. She states she is drinking 2-3 Boost GC/day which provides 570 mary/ 48 gm protein. Calorie count from 06/26 demonstrates pt. Is able to consume 70% protein and80% calorie needs. Met with pt. And reviewed appropriate menu selections, offered and encouraged intake of high protein foods and provided high protein menu insert. Nutrition to monitor intake and help with meal and supplement selection as needed. Suggest supplemental vitamin C d/t size of wound. Pt. Is ordered for supplemental zinc, has missed a few doses, continue as ordered. Nutrition Risk Level: High (1) MEDICAL NUTRITION THERAPY - UPDATED PLAN Diet as ordered Nutrition to monitor intake and help with meal and supplement selection as needed D/c feeding tube in the next day or so Please order: p.o. supplement: 250 mg vitamin C daily Trend BG as ordered Ongoing monitor and follow up Ashleigh Stout RD, CD (Call PAS or use Figure 1 Web ([email or web address]) to page RD covering this unit) * Brittani Heredia - 06/28/2023 1255 EDT Palliative care SW unable to reach Holden's partner Carey for a check in. Will follow next week and if Carey is at bedside will conduct visit and provide psychosocial supportduring stay, otherwise will follow with calls to family LEIDY Epperson, HOME HEALTH AIDE Palliative Care Advertising Supervisor Epic Chat Only * Melinda Lassiter, PT - 06/28/2023 1229 EDT [facility] Acute Therapies [facility] Physical Therapy Initial Evaluation Note Date of Service: 06/28/2023 Reason for Referral: Evaluate and treat Precautions: Activity as tolerated, SUBJECTIVE: Reports her left foot drop and left hand numbness (along ulnar nerve distribution) started last March; did not clarify Pain: Location: right gluteal region Intensity: not numerically rated Frequency: constant with intermittent spikes Quality: deep ache, sharp Aggravating factors: ROM, mobility Alleviating factors: Rest, medications, positioning OBJECTIVE: PatientProfile: Patient is a 52 y.o. female admitted on 06/13/2023 secondary to Necrotizing fasciitis ([facility]) [M72.6] The patient lives at [address] [place] [id number] Summary assessment on 06/28/[address] Chato Beckwith 52 y.o. female with a history of HTN and T2DM who presented as a transfer from [facility] on 06/12 with necrotizing fasciitis. S/p debridement x2 at OSH and s/p debridement at [facility] on 06/14. Post-operative bradycardic arrest x2, suspected heart block vs vagal event. Recovered normal cardiac function, EP cards signed off. Has been undergoing local wound care and serial debridements, as well as pulmonary toilet. Plan for PT eval for dispo planning while continuing local wound care. Vac change today, continued nasal cannula requirements, will consider diuresis as well. Imaging XR CHEST PORTABLE 1 VIEW Result Date: 06/26/2023 1. No significant change in persistent bilateral ill-defined opacities and indistinct pulmonary vasculature, consistent with pulmonary edema. 2. The left costophrenic angles are more obscured, may bedue to patient position but could represent a new small left pleural effusion. Procedures 06/14/2023 Diagnosis Pre-Op Diagnosis Codes: * Necrotizing soft tissue infection [M79.89] Post-op Diagnosis * Necrotizing soft tissue infection [M79.89] Procedures Debridement of right buttock necrotizing fasciitis, primary repair of rectal injury 06/17/2023 Procedures * INCISION AND DRAINAGE, ABSCESS, ISCHIORECTAL OR PERIRECTAL 06/19/2023 Procedures * Incision & drainage gluteal wound 06/26/2023 Procedures * debridement of perianal wound, wound vac placement Home environment Lives:with family Caregiver Support: 24-hour assist Equipment Available: Rolling walker, Commode, Shower chair, and Grab bars Home Environment: apartment Home Layout: Ramp entry. Prior Level of Function: Need to clarify; per Case Management Pt primarily housebound; needs assistwith ADLs/IADLs Services prior to admission: need to clarify Work/Leisure: Disabled Medical/Surgical History: Current: Patient Active Problem List Diagnosis Necrotizing fasciitis ([facility]) Necrotizing soft tissue infection Cardiopulmonary arrest with successful resuscitation ([facility]) Type 2 diabetes mellitus Complete heart block ([facility]) Palliative care by specialist Insufficiency, respiratory, acute Electrolyte and fluid disorder Acute respiratory failure with hypoxia ([facility]) Past: No past medical history on file. No past surgical history on file. Medications: Medications reviewed Arousal, Attention, and Cognition: Orientation: Alert Oriented to person, place, Follows cues for exercises Vague historian Cardiopulmonary: Vital Signs: Patient vital signs stable and patient not symptomatic during bedside examination/treatment. Integumentary/Anthropometric Characteristics: Palpation/Observation: Skin significant right gluteal wound; wound vac PIV Catheter Duration Peripheral IV 06/25/23 2336 Anterior;Left;Distal Forearm 2 days Peripheral IV 06/25/23 2336 Anterior;Left;Proximal Forearm 2 days Drain Duration Rectal Tube 15 days Urethral Catheter 15 days Wound Vac Right buttock 4 days Wound Vac Right;Medial buttock 1 day Wound Duration Wound 06/14/23 Buttock;Rectum 14 days NG/OG Tube Duration NG/OG Tube Nasogastric 14 fr Left nostril 7 days Range of Motion and Joint Integrity: Active Range of Motion: Within normal limits Upper Quarter: Left Upper Extremity: Right Upper Extremity: Cervical Spine: Lower Quarter: Left Lower Extremity: Right Lower Extremity: Lumbar Spine: n/e Muscle Performance: Strength: Manual muscle test completed in: supine with head of bed up 30 degrees Upper Quarter: at least >3/5 Left Upper Extremity: Right Upper Extremity: Cervical Spine: n/e Lower Quarter: Left Lower Extremity: grossly 3/5 except left ankle dorsiflexion 2-/5; can only df to neutral Right Lower Extremity: grossly at least 3/5 LumbarSpine: n/e Sensation, Reflexes, and Nerve Integrity: Light Touch Sensation: Upper Quarter:Intact C2-T1 except left lateral hand (ring and pinky fingers) Lower Quarter: Intact for lower extremities except left LE diminished knee to foot Neuromotor Function/Development: Balance, Mobility, and Gait: Balance: Not evaluated due to evaluation limited to bedside examination. See assessment. Mobility: Not evaluated due to evaluation limited to bedside examination. See assessment. Gait: Not evaluated due to evaluation limited to bedside examination. See assessment. Self-Care, Home Management, Work, and Leisure: Not assessed Outcomes: Not assessed Informed Consent: The patient consented to the physical therapy evaluation. The patient agrees to and understands the physical therapy treatment plan and goals. Interventions Completed Today: Physical Therapy today at: 0930 Total treatment time: 25 minutes. Timed code treatment minutes: 10 Intervention included: Therapeutic exercises: bilateral lower extremity therapeutic exercises The patient was instructed in and performed exercises below. Supine: 10 active repetitions Ankle pumps Quadricep sets Gluteal sets External rotation/internal rotation Supine: 10 AA repetitions, assist with all on technique and to increase ROM Hip flexion/knee flexion Hip abduction Straight leg raise x 2 Patient was provided with verbal cues throughout session to reinforce proper sequencing, positioning and techniques to minimize compensatory movement patterns and maximize outcome performance. PT discussed with Nursing and obtained L'nard splint for positioning left foot due to presences of foot drop; Patient educated rationale for use; and agreed; PT placed L'nard on left foot Discussed goals; -pt to perform AROM exercises 3 times daily -next week will progress PT for mobilization Patient/Family Education: Topic: Activity pacing/Energy conservation Bed mobility Breathing exercises Discharge planning Exercise Positioning Role of therapy Safety Learner: patient Method: verbal and demonstration Barriers to Learning: anxiety, some episodes of confusion during hospitalization Outcome: needs practice Team Communication: Patient status discussed with RN prior to and after evaluation/treatment. ASSESSMENT: Physical Therapy Diagnosis:Physical Therapy Diagnosis: This patient presents with a Physical Therapy diagnosis of :Impaired aerobic capacity, Impaired gait, Impaired mobility, Impaired self care, Pain, Lower extremity dysfunction, and Upper extremity dysfunction impacted by impairments of: activity tolerance, balance, endurance, fear/anxiety, integumentary, pain, sensation, sitting tolerance, and standing tolerance Physical Therapy Prognosis: Physical therapy is medically necessary to: address these body structure/function impairments, activity limitations, and participation restrictions, establish and progress mobility/exercise and provide recommendations for staff and safe discharge planning, facilitate return to prior level of function, improve safety and independence, provide education in a home exercise program to address impairments in body function and structures and promote increased activity and participation, and provide family/caregiver education to assist the patient Current status compared to baseline level of function: below prior level of function Need clarification of patient's baseline level of function as she presents vague history; Per case Management pt required assist with ADLs and IADLs prior to this hospitalization, but need clarification. She has a left LE foot drop and reports numbness and poor hand function along left ulnar nerve distribution. Pt reports since March but did not elaborate. Anticipated rate of progress: Slow Progress may be affected by the following: strengths: age and family/social support barriers: acute medical issues, anxiety, co-morbidities, endurance, level of weakness/debility, medical prognosis, pain, and participation level Discharge recommendations: Evaluation limited to bedside exercise program as pt declined attempt tomobilize and is planning on additional surgery today. Anticipate prolonged medical course and she is deconditioned. Anticipate she will likely require ANDRES when medically ready. She would benefit from Occupational Therapy evaluation to further assess left hand function, self care and cognition. Short-Term Goals: 1-2 weeks Rolling minimal assist of one Supine to sit moderate assist of one Tolerate standing with bilateral UE support with moderate assist of one Bed to chair transfer;via leander steady Tolerate sitting out of bed for 30 minutes Long-Term Goals: 3-4 weeks Ms Browning will be able to; perform bed mobility independently demonstrating appropriate sequencing/motor planning. perform bed to chair transfers with modified independence while demonstrating appropriate hand placement with assistive device use. ambulate with modified independence feet with the least restrictive assistive device with step through gait and heel contact, with most upright posture. recall and demonstrate precautions without cues. perform stairs with supervision assist with appropriate home set up and proper sequencing. be aware of the recommendations provided and demonstrate an appropriate technique/understanding of the recommendations. perform therapeutic exercises 10 times active with good technique with written copy of exercises. PLAN: Treatment/Intervention: Physical therapy will be provided by physical therapist and/or physical therapist executive marketing assistant when medically appropriate. Frequency: Frequency: daily for 1-3 times per week as determined by patient's medical stability, tolerance to activity and proression of functional activities Intensity: 15-60 minutes per session Duration: During hospitalization Interventions may include:Therapeutic exercises, Therapeutic activities and Gait training Patient/family education: Discharge planning, Equipment, Family training as appropriate, Precautions, Recommendations, Role of physical therapy/rehabilitation, Safety Further Data: mobility progression Recommended Discharge Destination: Sub-acute rehabilitation Recommended Discharge Services: Physical therapy at rehabilitation facility Recommended Equipment Needs: To be determined by next care provider Other recommendations: Occupational Therapy consult Pager: [phone] Melinda Lassiter, PT 06/28/2023 12:32 * Almita Hayes, RT - 06/28/2023 0944 EDT Respiratory Consult/Progress Note Indications for Respiratory therapy: PRN neb Data Vitals: Heart Rate: 82 BPM, Resp: 16, SpO2: 100 % FIO2/O2 Device: O2 Flow Rate (L/min): 4 l/min, O2 Device: Nasal cannula, RT Orders: PRN duoneb PRN BIPAP Protocol Scoring: Bronchodilator/Inhalation Therapy Frequency Bronchodilator - Clinical Indications: No clinical indications Breath Sounds: Any abnormal BS decreased Response: No change / no treatment Pulse: <100 Resp Rate: 18-25 SOB: With exertion Total Score: 3 Comment:: patient is requesting Q4 Frequency Based On Total Score: 0-4 = PRN 5-7 = QID 8-10 = Q4H 11-12 = Q2H Airway Clearance Therapy Frequency Airway Clearance - Clinical Indications: Rhonchi Breath Sounds: Rhonchi / crackles Sputum: Small (tsp) / None Consistency: Thin Cough Effort: Strong/ productive Color: Clear / white Total Score: 2 Comment: at bedside Frequency Based On Total Score: 0-3 = PRN 4-6 = QID and PRN 7-9 = Q4H and PRN 10-11 = Q2H and PRN Hyperinflation Therapy Frequency Hyperinflation - Clinical Indications: Prevent atelectasis Breath Sounds: Other Surgery: Yes X-Ray / Atelectasis: No O2 Requirements: 0-2 L above baseline Mobility Status: In chair Total: 6 Comment: IS and vpep at bedside Frequency Based On Total Score: 0-3 = PRN 4-6 = QID and PRN 7-9 = Q4H and PRN 10-12 = Q2H and PRN Action/Events Patient has been consistently requesting nebs about Q4 hours. Will schedule nebs Q4 at this time. Response/Results Change nebs to Q4 as requested. ALMITA HAYES, RT 06/28/23 * Moo Monique MD - 06/28/2023 0827 EDT Surgery Progress Note Service Date: 06/28/2023 Admit Date: 06/13/2023 23:23 Procedure: Nec fasc debridement x2 (OSH) Serial debridement, repair rectal injury (06/14) Additional debridement, washout (06/16) Additional debridement, washout, partial closure (06/18) Washout, wound vac change (06/25) Chief Complaint: NSTI 24 Hour Events: Recovering on the floor NAEO Subjective A bit distant this morning. Reports some SOB but denies any uncontrolled pain. No fevers, chills, lightheadedness. Objective Vital Signs Temp: [36.7 ??C (98.1 ??F)-37.1 ??C (98.7 ??F)] , Heart Rate: [84 BPM-89 BPM] , Pulse: --, Pulse From Oximetry: [76 BPM-92 BPM] , Resp: [16-20] , BP: (94-147)/(55-78) , SpO2: [97 %-100 %] Physical Exam General Appearance: calm, in no distress Neuro: alert, oriented, moving all four limbs symmetrically Lung: unlabored on room air Heart: regular rate and rhythm Abdomen: soft, nontender, rectal tube in place Extremities: Warm and well perfused, mild edema Wound: R gluteal wound wound vac holding suction, erythema surrounding perianal region, nystatin powder applied Labs: CBC: Recent Labs 06/26/23 0608 06/26/23 0804 06/27/23 0906 WBC 10.84 9.99 8.97 RBC 2.41* 2.58* 2.55* HGB 7.3* 7.4* 7.6* HCT 21.4* 22.8* 22.7* MCV 89 88 89 MCH 30.3 28.7 29.8 MCHC 34.1 32.5 33.5 PLT 349 336 378* NEUTROABS 8.63 8.19 6.84 BMP: Recent Labs 06/25/23 0833 06/25/23 2238 06/26/23 0608 06/27/23 0906 NA 132* 132* 131* 134* K 4.5 5.0 4.3 4.1 CL 99 98 99 100 CO2 24 22 23 23 BUN 17 19 19 14 CREATININE 0.40* 0.45* 0.48* 0.53 CALCIUM 8.0* 8.5 7.6* 7.7* MG 1.9 -- 2.0 1.9 PHOS 5.4* -- 5.1* 3.7 Micro: 06/13 OR cultures: mixed GP and GN organisms, no speciation available 06/15 blood cx: NGTD Imaging: (Please refer to the chart for the full radiology reports including all of the findings and impressions.) XR CHEST PORTABLE 1 VIEW Result Date: 06/26/2023 1. No significant change in persistent bilateral ill-defined opacities and indistinct pulmonary vasculature, consistent with pulmonary edema. 2. The left costophrenic angles are more obscured, may bedue to patient position but could represent a new small left pleural effusion. Assessment 52 y.o. female with a history of HTN and T2DM who presented as a transfer from [facility] on 06/12 with necrotizing fasciitis. S/p debridement x2 at OSH and s/p debridement at [facility] on 06/14.Post-operative bradycardic arrest x2, suspected heart block vs vagal event. Recovered normal cardiac function, EP cards signed off. Has been undergoing local wound care and serial debridements, as well as pulmonary toilet. Plan for PT eval for dispo planning while continuing local wound care. Vac change today, continued nasal cannula requirements, will consider diuresis as well. Plan Multimodal pain control Continue cc, mechanical soft diet. Bowel regimen, has DAVID tube, keep for now No abx due to adequate source control Rectal tube for wound hygiene Nystatin powder BID ordered to perianal/gluteal cleft skin Continue gentle diuresis daily Lasix 20 IV every day DVT ppx: lovenox 40 mg qhs Dispo: PT tomás PATEL MD 06/28/2023 8:27 PGY2 [facility] pager #[phone] Attestation: I performed or was present during the cooper or critical portions of the visit and participated in the management of the patient on 06/28/2023. I agree with the findings and plan of care documented in the resident's/fellow's note.Feels okay today. States she ordered banana bread and the kitchen sent scrambled eggs. Plan for vac change today. Took in good po yest. If she continues to take good po, will plan to d/c david tube on Saturday. Encourage ambulation. Continue diuresis daily. Moo Monique MD 06/28/2023 22:38 * Melinda Lassiter, PT - 06/27/2023 1009 EDT [facility] Acute Therapy [facility] Physical Therapy Contact Note Date of Service: 06/27/2023 PT met with Ms Browning at 0984 and reviewed role of PT in her care and importance of increasing mobility as able to minimize impact of deconditioning. She declined attempt of mobilizing with PT today, becoming tearful; PT explained will use RW for increased support and coordinate with Nursing for premedication for pain management. She requested to not attempt today. Anticipate she may require subacute rehab due to wound care and medical course to date as she has not been able to mobilize much. PT will follow up in the next few days for PT evaluation. Melinda Lassiter, PT 06/27/2023 10:09 * Robb Ojeda, RT - 06/27/2023 0855 EDT Patient given VPEP and will use independently * Aura Morris, RN - 06/27/2023 0813 EDT Received pt from PACU. O2 at 4 LNC. Feeding tube to Lt nare in place. Vuong catheter, wound vac, rectal tube in place. Turned and reposition. Using Auralis bed. Pain managed with dilaudid. All needs met. Call light in reach * Tai Azar MD - 06/27/2023 0722 EDT Surgery Progress Note Service Date: 06/27/2023 Admit Date: 06/13/2023 23:23 Procedure: Nec fasc debridement x2 (OSH) Serial debridement, repair rectal injury (06/14) Additional debridement, washout (06/16) Additional debridement, washout, partial closure (06/18) Washout, wound vac change (06/25) Chief Complaint: NSTI 24 Hour Events: To OR for washout with versajet, replacement of wound vac NAEO Subjective Doing okay this morning, says she always has pain but that the pain meds help. Having moisture ather bottom, going to try the nystatin powder today. Objective Vital Signs Temp: [36.5 ??C (97.7 ??F)-36.8 ??C (98.3 ??F)] , Heart Rate: [74 BPM-91 BPM] , Pulse: --, Pulse From Oximetry: [73 BPM-91 BPM] , Resp: [13-30] , BP: (109-145)/(51-114) , SpO2: [90 %-99 %] Physical Exam General Appearance: calm, in no distress Neuro: alert, oriented, moving all four limbs symmetrically Lung: unlabored on room air Heart: regular rate and rhythm Abdomen: soft, nontender, rectal tube in place Extremities: Warm and well perfused, mild edema Wound: R gluteal wound wound vac holding suction, erythema surrounding perianal region, nystatin powder applied Labs: CBC: Recent Labs 06/25/23 0833 06/25/23223706/26/23 0608 06/26/23 0804 WBC 10.99 20.32* 10.84 9.99 RBC 2.74* 3.43* 2.41* 2.58* HGB 8.2* 10.4* 7.3* 7.4* HCT 24.2* 30.8* 21.4* 22.8* MCV 88 90 89 88 MCH 29.9 30.3 30.3 28.7 MCHC 33.9 33.8 34.1 32.5 PLT 389* 592* 349 336 NEUTROABS 9.06* -- 8.63 8.19 BMP: Recent Labs 06/25/23 0833 06/25/23223706/26/23 0608 NA 132* 132* 131* K 4.5 5.0 4.3 CL 99 98 99 CO2 24 22 23 BUN 17 19 19 CREATININE 0.40* 0.45* 0.48* CALCIUM 8.0* 8.5 7.6* MG 1.9 -- 2.0 PHOS 5.4* -- 5.1* Micro: 06/13 OR cultures: mixed GP and GN organisms, no speciation available 06/15 blood cx: NGTD Imaging: (Please refer to the chart for the full radiology reports including all of the findings and impressions.) XR CHEST PORTABLE 1 VIEW Result Date: 06/26/2023 1. No significant change in persistent bilateral ill-defined opacities and indistinct pulmonary vasculature, consistent with pulmonary edema. 2. The left costophrenic angles are more obscured, may bedue to patient position but could represent a new small left pleural effusion. Assessment 52 y.o. female with a history of HTN and T2DM who presented as a transfer from [facility] on 06/12 with necrotizing fasciitis. S/p debridement x2 at OSH and s/p debridement at [facility] on 06/14.Post-operative bradycardic arrest with ROSC after 2 rounds CPP (cardiology suspect 2/2 third degreeHB from manipulation of ETT). Coded a second time following extubation while she was on dexmedetomid ine. Recovered normal cardiac function, EP cards signed off. Has been undergoing local wound care and serial debridements, as well as pulmonary toilet. Plan for PT eval for dispo planning while continuing local wound care. Plan Multimodal pain control Continue cc, mechanical soft diet. Bowel regimen. Appreciate PROCESS MANAGER. No abx due to adequate source control Rectal tube for wound hygiene Nystatin powder BID ordered to perianal/gluteal cleft skin Continue gentle diuresis daily DVT ppx: lovenox 40 mg qhs Dispo: PT eval TAI AZAR MD 06/27/2023 7:22 PGY3 ACS pager #[phone] Associated attestation - Hira Franklin MD - 06/27/2023 1206 EDT I examined the patient with the resident/MADELINE I agree with the above findings and plan. Additional comments: Continuing wound care. Negative pressure dressing. Planning for closure once wound stable. * Aura Morris, KIESHA - 06/27/2023 0315 EDT FOUR EYES SKIN ASSESSMENT Four Eyes skin assessment was performed on admission to the unit by Aura Cain RN and Paolo Patient has the following devices at the time of this assessment: NGT, Peripheral IV, O2 sat probe,Vuong, Rectal tube, SCD sleeves, and wound Vac to buttocks Device related pressure injury present? No All skin intact verified by: Aura Cain RN. Last Jerson Score: 13 06/27/2023 3:16 * Brittani Heredia - 06/26/2023 1305 EDT Palliative Care Social Work Follow Up Visit Date: 06/26/23 Time: 13:05 Patient: Della Browning Primary Care Provider: UNKNOWN,PROVIDER Team Members Present at Encounter: myself-Palliative Care SW Reason for consult: Psychosocial support Purpose/goal for today's follow up visit: check in with Della Summary of visit: I met Della at her bedside, she was awake and alert however has periods of confusion. She shared that she is in the hospital and goes to the OR today but also that she wanted me to get her a drink of water, a vape pen and cough drops. She seemed confused when I asked her about her partner Carey, she could not quite engage or tell me if he had visited or where he was. I will fol low up with him when he next comes to the bedside or place a call if he is not here in the next couple of days to see how to continue to support him. Della will be going to the OR for further wound care/debridement. We anticipate an ongoing long hospital stay, will benefit from psychosocial support from palliative care team and I will follow chelo in with her and her family Recommendation and/or follow up plan: Plan to follow for psychosocial support Interventions: explore patient/family understanding of medical condition/hospital stay Trina Heredia, NITRILES LAB TECHNICIAN, HOME HEALTH AIDE Palliative Care Advertising Supervisor Epic Chat Only * Damaso Dhillon, RT - 06/26/2023 1211 EDT Respiratory Consult/Progress Note Indications for Respiratory therapy: airway clearance Data Vitals: Heart Rate: 83 BPM, Resp: 22, SpO2: 98 % FIO2/O2 Device: O2 Flow Rate (L/min): (S) 2 l/min, , O2 Device: Nasal cannula, RT Orders: q4 vpep Prn duoneb Protocol Scoring: Bronchodilator/Inhalation Therapy Frequency Bronchodilator - Clinical Indications: No clinical indications Breath Sounds: Any abnormal BS decreased Response: No change / no treatment Pulse: <100 Resp Rate: 18-25 SOB: None Total Score: 2 Comment:: prn Frequency Based On Total Score: 0-4 = PRN 5-7 = QID 8-10 = Q4H 11-12 = Q2H Airway Clearance Therapy Frequency Airway Clearance - Clinical Indications: Productive cough Breath Sounds: Rhonchi / crackles Sputum: Moderate (tbs) Consistency: Thin / thick Cough Effort: Strong/ productive Color: Clear / white Total Score: 4 Comment: continue q4 at this time Frequency Based On Total Score: 0-3 = PRN 4-6 = QID and PRN 7-9 = Q4H and PRN 10-11 = Q2H and PRN Hyperinflation Therapy Frequency Hyperinflation - Clinical Indications: Prevent atelectasis Breath Sounds: Other Surgery: Yes X-Ray / Atelectasis: No O2 Requirements: 2-4 L above baseline Mobility Status: In chair Total: 7 Comment: q4 Frequency Based On Total Score: 0-3 = PRN 4-6 = QID and PRN 7-9 = Q4H and PRN 10-12 = Q2H and PRN Action/Events Respiratory events; Pt has been slightly confused at times with a 1:1 sitter. Pt cooperative with treatments. Breath sounds mostly coarse. No indication for nebs at this time. Scores prn per protocol. Changed duonebs toprn. Pt does well with vpep and has a productive cough with encouragement for small to moderate secretions. [place] in color. Plan is for pt to go to OR for a wash out sometime today and possibly out tothe floors after. Will continue to follow for airway clearance. Decreased oxygen from 3L to 2L. 1553: decreased oxygen to 1L. Pt has been getting diuresed daily. Pt still waiting to go to OR but has transfer orders to the floors in the meantime. DAMASO DHILLON, 06/26/23 * Tai Azar MD - 06/26/2023 0759 EDT Surgery Progress Note Service Date: 06/26/2023 Admit Date: 06/13/2023 23:23 Procedure: Nec fasc debridement x2 (OSH) Serial debridement, repair rectal injury (06/14) Additional debridement, washout (06/16) Additional debridement, washout, partial closure (06/18) Chief Complaint: NSTI 24 Hour Events: Transferred back to SICU for respiratory decline, hypoxia presumed to be due to mucus plugging, weaned from BIPAP down to nasal cannula CXR with evidence of pulmonary edema, pleural effusions Subjective Feeling okay this morning. Says her breathing feels fine. No other complaints. Pain well controlled. Objective Vital Signs Temp: [36.7 ??C (98 ??F)-37.4 ??C (99.3 ??F)] , Heart Rate: [75 BPM-125 BPM] , Pulse: --, Pulse From Oximetry: [69 BPM-124 BPM] , Resp: [16-39] , BP: (100-215)/(61-127) , SpO2: [82 %-100 %] Physical Exam General Appearance: calm, in no distress Neuro: alert, oriented, moving all four limbs symmetrically Lung: coarse breath sounds grossly Heart: regular rate and rhythm Abdomen: soft, nontender, rectal tube in place Extremities: Warm and well perfused, mild edema Wound: R gluteal wound wound vac holding suction Labs: CBC: Recent Labs 06/24/23 0507 06/25/23 0833 06/25/23223706/26/23 0608 WBC 14.87* 10.99 20.32* 10.84 RBC 3.08* 2.74* 3.43* 2.41* HGB 9.2* 8.2* 10.4* 7.3* HCT 26.6* 24.2* 30.8* 21.4* MCV 86 88 90 89 MCH 29.9 29.9 30.3 30.3 MCHC 34.6 33.9 33.8 34.1 PLT 411* 389* 592* 349 NEUTROABS 12.96* 9.06* -- 8.63 BMP: Recent Labs 06/24/23 0507 06/25/23 0833 06/25/23223706/26/23 0608 NA 130* 132* 132* 131* K 4.7 4.5 5.0 4.3 CL 97 99 98 99 CO2 27 24 22 23 BUN 17 17 19 19 CREATININE 0.39* 0.40* 0.45* 0.48* CALCIUM 8.4* 8.0* 8.5 7.6* MG 1.9 1.9 -- 2.0 PHOS 4.8* 5.4* -- 5.1* Micro: 06/13 OR cultures: mixed GP and GN organisms, no speciation available 06/15 blood cx: NGTD Imaging: (Please refer to the chart for the full radiology reports including all of the findings and impressions.) XR CHEST PORTABLE 1 VIEW Result Date: 06/26/2023 1. No significant change in persistent bilateral ill-defined opacities and indistinct pulmonary vasculature, consistent with pulmonary edema. 2. The left costophrenic angles are more obscured, may bedue to patient position but could represent a new small left pleural effusion. Assessment 52 y.o. female with a history of HTN and T2DM who presented as a transfer from [facility] on 06/12 with necrotizing fasciitis. S/p debridement x2 at OSH and s/p debridement at [facility] on 06/14.Post-operative bradycardic arrest with ROSC after 2 rounds CPP (cardiology suspect 2/2 third degreeHB from manipulation of ETT). Coded a second time following extubation while she was on dexmedetomid ine. Recovered normal cardiac function, EP cards signed off. Has been undergoing local wound care and serial debridements, as well as pulmonary toilet. To OR today for wound debridement. Plan Multimodal pain control NPO for OR today for additional debridement Otherwise anticipate continue cc diet. Bowel regimen. Need to assess 24h period of PO intake with diet and then consider d/c DAVID No abx due to adequate source control Rectal tube for wound hygiene Restart gentle diuresis today DVT ppx: lovenox 40 mg qhs Dispo: keep in SICU for respiratory care, anticipate transfer to floor tomorrow TAI AZAR MD 06/26/2023 7:59 PGY3 ACS pager #[phone] Associated attestation - Hira Franklin MD - 06/26/2023 1310 EDT I examined the patient with the resident/MADELINE I agree with the above findings and plan. Additional comments: Planning excisional debridement. and major dressing change today. * Karley Patton RN - 06/26/2023 7718 EDT FOUR EYES SKIN ASSESSMENT Four Eyes skin assessment was performed on admission to the unit by Karley Patton RN and Geni Sandoval RN. Patient has the following devices at the time of this assessment: NGT, BIPAP/CPAP mask , BP cuff, Peripheral IV, O2 sat probe, Vuong, and Rectal tube. Device related pressure injury present? No Areas of concern: Fill in detail for areas of concern [] Occiput [] Nose [] Ear [] Lip [] Scapula [] Spinous process [] Shoulder [] Elbow [] Iliac crest [x] Sacrum/coccyx Red Excoriated [] Ischial tuberosity [] Trochanter [] Knee [] Malleolus [] Heel [] Toe [] Other: Last Jerson Score: 15 Instructions: Add LDA for any identified wounds Add [place] image for any suspected PI or non surgical wounds Order wound consult if suspected PI identified If Jerson is < or = to 16, initiate Pressure Injury Prevention Bundle ([id number]). 06/26/2023 6:53 * Jona Ocampo, RT - 06/26/2023 0614 EDT Respiratory Consult/Progress Note Indications for Respiratory therapy: Airway Clearance Data Vitals: Heart Rate: 78 BPM, Resp: 24, SpO2: 95 % FIO2/O2 Device: O2 Flow Rate (L/min): 15 l/min, , O2 Device: BIPAP, FIO2 %: 30 % RT Orders: Bipap Cont Q4 DuoNeb Q4 AWC Q4 IS Protocol Scoring: Bronchodilator/Inhalation Therapy Frequency Bronchodilator - Clinical Indications: No clinical indications Breath Sounds: Any abnormal BS decreased Response: No change / no treatment Pulse: <100 Resp Rate: 18-25 SOB: With exertion Total Score: 3 Comment:: Q4 patient request Frequency Based On Total Score: 0-4 = PRN 5-7 = QID 8-10 = Q4H 11-12 = Q2H Airway Clearance Therapy Frequency Airway Clearance - Clinical Indications: History of mucous production Breath Sounds: Clear / diminished Sputum: Small (tsp) / None Consistency: None Cough Effort: Strong/ non-productive Color: None Total Score: 0 Comment: cont Q4 with duoneb Frequency Based On Total Score: 0-3 = PRN 4-6 = QID and PRN 7-9 = Q4H and PRN 10-11 = Q2H and PRN Hyperinflation Therapy Frequency Hyperinflation - Clinical Indications: Prevent atelectasis Breath Sounds: Other Surgery: Yes X-Ray / Atelectasis: No O2 Requirements: O2 at baseline Mobility Status: Mobile / at baseline Total: 3 Comment: Q4 Frequency Based On Total Score: 0-3 = PRN 4-6 = QID and PRN 7-9 = Q4H and PRN 10-12 = Q2H and PRN Action/Events Respiratory events; Pt was Rapid response from earlier in shift arrived in ICU on 100% NRB with saturations in the 70'splaced on Bipap 14/8 100%. Fio2 weaned tonight, several ABGs drawn most recent 7.43/38/89//1 Will attempt trials off bipap this AM. RT BRAYDON 06/26/23 * Ángel Bustamante MD - 06/26/2023 0048 EDT SICU Daily Progress Note Admit Date: 06/13/2023 Primary team: MAIRA CC: Hypoxic respiratory failure Procedures: Nec fasc debridement x2 (OSH) Serial debridement, repair rectal injury (06/14) Additional debridement, washout (06/16) Additional debridement, washout, partial closure (06/18) 24hr Events: Admitted to the SICU Lasix 40 mg IV w/ great response pCO2 normalized w/ BiPAP 1:1 sitter to prevent puling on mask and picking at lines, mitts ordered Subjective: Overall reports doing well. Endorses some mild pain in her buttocks. States that her breathing feels alright. Objective: Temp: [36.5 ??C (97.7 ??F)-37.4 ??C (99.3 ??F)] , Heart Rate: [74 BPM-125 BPM] , Resp: [16-39] , BP: (100-215)/(58-127) , SpO2: [82 %-100 %] I/O: Current Shift: 06/25 699 - 06/25 1459 In: - Out: 250 [Urine:250] 24 hours: 06/24 0600 - 06/25 0659 In: 360 Out: 2425 [Urine:2125; Drains:300] Tubes: Vuong, rectal tube, WV connected to wall suction via NGT Lines: PIV(s) x1 Infusions/Rates: N/A Physical Exam: Gen: no acute distress, Resp: Coarse breath sound b/l, equal entry b/l. RR ~20 with normal WOB CV: S1 and S2, No M/R/G, RRR Abd: soft, nontender : Foely w/ cyu Ext: Warm, palpable peripheral pulses, +leg edema Neuro: Moving all extremities, opens eyes to voice, makes eye contact and follows command Wound: No surrounding erythema, dressing CDI Micro: no new micro New Imaging (w/in 24h): XR CHEST PORTABLE 1 VIEW Result Date: 06/26/2023 1. Hydrostatic edema and likely bilateral effusions, definitive on the left. 2. Left lower lobe consolidation, presumably atelectasis. [id number] XR CHEST PORTABLE 1 VIEW Result Date: 06/26/2023 1. Persistent findings of pulmonary edema with progressive left basilar opacity felt to reflect enlarging pleural fluid and adjacent lower lobe consolidation. 2. Increasing hazy opacity in the right lung base may reflect additional layering pleural fluid. I have personally reviewed the images and the above interpretation and agree with the findings. [id number] Labs: CBC: Recent Labs 06/25/23 0833 06/25/23223706/26/23 0608 06/26/23 0804 WBC 10.99 20.32* 10.84 9.99 RBC 2.74* 3.43* 2.41* 2.58* HGB 8.2* 10.4* 7.3* 7.4* HCT 24.2* 30.8* 21.4* 22.8* MCV 88 90 89 88 MCH 29.9 30.3 30.3 28.7 MCHC 33.9 33.8 34.1 32.5 PLT 389* 592* 349 336 NEUTROABS 9.06* -- 8.63 8.19 BMP: Recent Labs 06/24/23 0507 06/25/23 0833 06/25/23223706/26/23 0608 NA 130* 132* 132* 131* K 4.7 4.5 5.0 4.3 CL 97 99 98 99 CO2 27 24 22 23 BUN 17 17 19 19 CREATININE 0.39* 0.40* 0.45* 0.48* CALCIUM 8.4* 8.0* 8.5 7.6* MG 1.9 1.9 -- 2.0 PHOS 4.8* 5.4* -- 5.1* Coags: No results for input(s): PROTIME, INR, PTT in the last 72 hours.LFT: No results for input(s): TBIL, ALKPHOS, AST, ALT, LIPASE, AMYLASE in the last 72 hours.ABG: No results for input(s): PHISTAT, PCOISTAT, POISTAT, POCTCO2, [id number], POCFIO2 in the last 72 hours.Cardiac Markers: Recent Labs 06/24/23 0507 06/25/23 2238 TROPONINI 0.161* 0.080* Lactic: No results for input(s): LACTICACID in the last 72 hours. Assessment: 52 y.o. female with a history of HTN and T2DM who presented as a transfer from [facility] on 06/12 with necrotizing fasciitis. S/p debridement x2 at OSH and s/p debridement at [facility] on 06/14.Early post-operative course c/b bradycardic arrest with ROSC after 2 rounds CPP (cardiology suspect2/2 third degree HB from manipulation of ETT). Coded a second time following extubation while she was on dexmedetomidine. She had been doing well on the floor, satting well on RA today. Had an acute desatting event this evening, satting in the 70s on 15 L Venturi mask. Was transferred to the SICU urgently, placed on BiPAP with saturation coming up to 98%, high respiratory rates to 35-45. CXR showed pulm edema and ABG signs of resp acidosis. She improved w/ IV Lasix and BiPAP overnight, ABG cleared, and has been on nasal canula for the past couple hours. At this time, she has no ICU level needs and the primary teamaccepts responsibility for her care. Please reach out if our services are needed again. Plan: Neuro: Pain: IV APAP, Dilaudid PRN, Robaxin, Lidocaine patches CV: Cardiac monitoring via cuff Continue amlodipine 10 mg, clonidipine 0.3 mg patch, Hydralazine 10 mg PRNfor SBP>180 Troponins still down trending, discontinuing trending Pulm: Aggressive IS and pulmonary toilet On BIPAP overnight, ABG resp acidosis resolved, on nasal canula morning of 06/25 Consider CTPA if SOB/hypoxia returns FEN/GI: Back down to NPO, hold Tfs for wound vac change/debridements Hold mIVF given clinical hypervolumia Resuming PO multivitamins that were held while NPO Continue IV Thiamine Holding bowel regimen for now Check lytes daily Renal: Trend BUN/Cr, watch UOP Keep Vuong Heme: Check CBCs qdaily Lovenox 40 mg qhs for chemoppx ID: Trend WBC and fever curve Endo: POC glucose checks q6h Insulin 22 U daily + SSI Will consider transitioning to insulin gtt if persistently hyperglycemic May need to reduce insulin glargine this AM if pt will remain NPO MSK: AAT Engage PT when able Skin: Pressure ulcer prevention per SICU bundle including monitoring for device- related injuries (which include ETT, OGT, Vuong, A-line board) Wound care per ACS, has a WV in place over R gluteal area, plan for debridement on 06/25 Tubes/Lines: Place another PIV May need A-line placement for hemodynamic monitoring and ABG draws as she is a very hard stick Ppx: SCDs Lovenox for chemoppx Code status: FULL (discussed w/ pt on 06/21) Daily ICU Checklist Prophylaxis: DVT Prophylaxis: SCDs;Enoxaparin GI Prophylaxis: Not indicated Skin Integrity Risk Factors: Yes Pressure Ulcer / Breakdown Present?: No Wound Care Consult Indicated?: No Air Mattress Indicated?: Yes CAM-ICU: Positive Ventilation/Sedation: Is there anticipated need of a chest x-ray the next morning of ICU stay?: No Procalcitonin: Currently Following Procalcitonin: No Early Mobility: Activity Order: Activity as tolerated Does The Patient Meet Physiological Criteria For PT Referral: Yes Is The Patient Awake And Able To Participate In Therapy: PT already involved Fluids/Nutrition: Daily Fluid Goal: -1000 Tube Feedings: No Last Bowel Movement: 06/26/23 Lines: Vascular Access Assessment: Peripheral access adequate Urinary (Vuong) Catheter Assessment: Vuong catheter indicated Communication: Updates: Family updated today Interdisciplinary Items: Patient Eligible For Transfer: No Off Unit Testing / OR: OR Daily Goals: normotension, OR ÁNGEL BUSTAMANTE MD 06/26/2023 09:08 SICU Housestaff #[phone] (Service Pager) Associated attestation - Edgar Thomas MD - 06/26/2023 1008 EDT Attending Attestation: I was asked by Hira Franklin MD to consult on this critically ill patient. This patient would beat risk for worsening clinical condition and/or without involvement of a critical care physician. I have seen and examined the patient with the resident/fellow on 06/26/2023. I agree with their assessment and plan, with additional comments listed below. Admitted overnight in acute respiratory failure with hypoxia from flash pulmonary edema. Now s/p diuresis with much improved breathing and O2 saturations. Conintue diuresis today. NPO to return to ORtoday for wound debridement and wound vac. Can likely go to PACU and floor postoperatively. I spent a total of 30 minutes rendering critical care to this patient, exclusive of procedures. Edgar Thomas MD 0:07 * Emma Marcum RT - 06/26/2023 0031 EDT Respiratory Rapid Response Call Note The patient's respiratory status has been evaluated during this Rapid Response call. Lung sounds are presently coarse/rhonchi, Heart Rate: 104 BPM, Resp: (!) 32,, O2 requirements pt on NRB at the start of Rapid Response call (previously on RA) with SPO2 sustaining in the mid 80's. Respiratory therapy intervention: patient transferred to ICU on NRB with Rapid Team for BIPAP initiation.. An ABG wasobtained following transfer to SICU - Room 311. Comments: ICU ABG @ 2311 7.33/53/107/30/+2/98% - on BIPAP 16/, rate 18, 70% FIO2. FIO2 weaned to 55% post gas. RT MARIA ALEJANDRA 06/26/23 * Miquel Jaime RN - 06/25/2023 2314 EDT Rapid Response Team Nursing Note (SBAR) Team Times: Call Type: FUNDS DEVELOPMENT DIRECTOR Call Time: 2224 Call Date: 06/25/23 Call Originator: Nurse SAY Arrival at Bedside: 2226 SAY Completion Time: 2244 Code Status: Full Initial Vitals: BP: (!) 202/97 BP MAP: 121 mm Hg BP Cuff Location: Right arm Heart Rate: (!) 124 BPM Resp: 29 SpO2: 97 % Temp: 36.7 ??C (98.1 ??F) Temp src: Axillary Neurological Assessment: Pupils: Pupils equal, round, reactive Altered Mental Status: Yes Cardiovascular Assessment: Respiratory Assessment: O2 Device: BIPAP O2 Flow Rate (L/min): 15 l/min Breath Sounds Bilateral: Coarse crackles GI/ Assessment: Abdomen Inspection: Rotund Urinary Status: Draining;Vuong Patient Status: Disposition: Transferred Transferred to: SICU Testing: X-Ray Team Members: SAY (Name): amber lafleur Hospitalist (Name): miguel ANC (Name): loy Respiratory (Name): emma Patient Support (Name): eloisa Martinez MD (Name): abdirashid Martinez RN (Name): víctor Call debriefed with: Nurse;Doctor;Charge Nurse;ANC Additional Detail: FUNDS DEVELOPMENT DIRECTOR called for acute oxygen desaturation. Arrive to patient sitting in bed, tachypneic on NRB 15L, O2 sat 83%. Hypertensive 200s/100s, HR 110s. Unable to recover O2 >85% on 100% O2, increasingly drowsy throughout call. Labs drawn, ABG attempted, CXR completed, transferred to SICU for respiratorysupport. * Mary Pendleton RN - 06/25/2023 2230 EDT Pt transferred to SICU after RN noted pt to be in respiratory distress, pt's sat 70% on RA, tachypneic, anxious, restless, trying to climb oob, stating she can't breathe, 6L NC applied while awaitingmask, venti mask applied then non rebreather, sat only improved to 78%, discharge rn aware, rapid response was called, report given to SICU receiving RN * Sabas Lancaster MD - 06/25/2023 2223 EDT Rapid Response Team - Physician Note Rapid Response Team called to the bedside at 2220 on 06/25/2023 for acute hypoxic respiratory failure. Subjective: Sudden onset hypoxia, now in 80s on NRB, endorsing dyspnea. Nursing reports breathing issues throughout admission but has been on RA until now. Did not have a junky cough earlier per floor staff. Admitted for gluteal necrotizing fasciitis s/p debridement x2 at OSH and at [facility] 06/14. Ccb cardiac arrest x2 likely secondary to ETT manipulation, has minimally displaced rib fractures on imaging. Bp 200s/100s, normotensive otherwise today. No hx of HF, LVEF normal 06/19/23 without RMWA. DVT ppx lovenox uninterrupted for at last the past 10d. No hx of COPD. Objective: BP 133/82 (BP Cuff Location: Right arm, BP Patient Position: Lying left side) Pulse 82 Temp 36.7 ??C (98.1 ??F) (Axillary) Resp 20 Ht 160 cm (63) Wt 86.2 kg (190 lb) SpO2 95% BMI 33.66 kg/m?? General: in distress, tachypneic, anxious, restless HEENT: EOMi Cardiovascular: tachycardic Resp: junky coug, course breathing bilaterally, increased WOB Neuro: restless, moving all extremities spontaneously - does not verbally answer any questions or indicate responses in any meaningful way Data Reviewed: Reviewed hospital course. Reviewed labs from today and/or hospital course which are notable for: hgb 8.2 but CBC/BMP otherwise unremarkable Reviewed imaging from today and/or hospital course which are notable for: LVEF normal 06/19/23 without RMWA Assessment: Della Browning is 52 y.o. female with history notable for HTN and T2DM who was initially admitted with necrotizing fasciitis and hospital course notable for debridement x3 and post-op cardiac arrest likely 2/2 ETT manipulation who developed sudden onset acute hypoxic respiratory failure prompting initiation of the Rapid Response Team. Upon arrival, Della Browning was found to be satting poorly on max NRB settings. Overall impression at this time is acute hypoxic respiratory failure, ddx includes flash pulmonary edema iso HTN, PE, mucus plugging, aspiration. Plan: VBG/ABG CXR possibly more pronounced interstitial markings. Hypertensive for most of the rapid but had one read immediately prior to transfer the was 110s/80s so nitro was deferred CBC, BMP, trop, NTproBNP EKG sinus tach, grossly unchanged from prior, no significant Karthik/d CT PE Reviewed and confirmed Code Status is full Disposition: pt remained persisently hypoxic on max floor settings, trasnferred to SICU. Primary team present the entire rapid and continued care once in the SICU Family was not updated. Chrissie Rea MD 06/25/2023 22:24 Internal Medicine, PGY-1 Attending Attestation: I have interviewed and examined the patient. I have personally reviewed the medication list. I have independently reviewed the lab results avail, CXR I have discussed the case with the resident and agree with the findings and plan of care above. Acute hypoxic resp failure, encephalopathic. Labile BP. Ddx also includes hypercarbia. Awaiting VBG. Transferred to the SICU as above. Date of service: 06/25/2023 Sabas Lancaster MD * Hill Conn, RT - 06/25/20232021 EDT Respiratory Consult/Progress Note Indications for Respiratory therapy: Airway Clearance Data Vitals: Heart Rate: 96 BPM, Resp: 20, SpO2: 93 % FIO2/O2 Device: O2 Flow Rate (L/min): 0 l/min, , O2 Device: None, FIO2 %: 21 % RT Orders: Q4 DuoNeb Q4 AWC Q4 IS Protocol Scoring: Bronchodilator/Inhalation Therapy Frequency Bronchodilator - Clinical Indications: No clinical indications Breath Sounds: Any abnormal BS decreased Response: No change / no treatment Pulse: <100 Resp Rate: 18-25 SOB: With exertion Total Score: 3 Comment:: Q4 patient request Frequency Based On Total Score: 0-4 = PRN 5-7 = QID 8-10 = Q4H 11-12 = Q2H Airway Clearance Therapy Frequency Airway Clearance - Clinical Indications: History of mucous production Breath Sounds: Clear / diminished Sputum: Small (tsp) / None Consistency: None Cough Effort: Strong/ non-productive Color: None Total Score: 0 Comment: cont Q4 with duoneb Frequency Based On Total Score: 0-3 = PRN 4-6 = QID and PRN 7-9 = Q4H and PRN 10-11 = Q2H and PRN Hyperinflation Therapy Frequency Hyperinflation - Clinical Indications: Prevent atelectasis Breath Sounds: Other Surgery: Yes X-Ray / Atelectasis: No O2 Requirements: O2 at baseline Mobility Status: Mobile / at baseline Total: 3 Comment: Q4 Frequency Based On Total Score: 0-3 = PRN 4-6 = QID and PRN 7-9 = Q4H and PRN 10-12 = Q2H and PRN Action/Events Respiratory events; Pt given DuoNeb with no adverse reactions. Breath sounds are diminished bilaterally. Assisted pt with VPEP and IS (750ml). Vitals remain stable. Plan of care ongoing. RT NIC 06/25/23 * So Anne RD - 06/25/2023 1208 EDT Nutrition Assessment Note: Reassessment BACKGROUND DATA Subjective: Pt thinks she is eating well and she is drinking 3 Boost/day. RN confirms she ate a good breakfast today and that TF is off Current Nutrition Orders: Diet: Consistent Carbohydrate Diet, Mech Soft-- Boost Glucose Control TID TF off 06/23 Delegate Diet ordering to RD Nutrition Focused Physical Exam Subcutaneous Fat Assessment Orbital Region: Well-nourished (06/14/23 1520) Cheek Region: Well-nourished (06/14/23 1520) Upper Arm Region: Well-nourished (06/14/23 1520) Midaxillary Line: Not assessed (06/14/23 1520) Muscle Mass Assessment Congregation Region: Well-nourished (06/14/23 1520) Clavicle Region: Well-nourished (06/14/23 1520) Shoulder/Acromion/Clavicle Region: Well-nourished (06/14/23 1520) Scapula Region: Not assessed (06/14/23 152) Hand Region: Not assessed (06/14/23 152) Thigh/Patellar Region: Not assessed (06/14/23 152) Calf Region: Not assessed (06/14/231519) NFPE Assessment Summary of Fat Wasting: No significant evidence of wasting (06/14/231519) Summary of Muscle Wasting: No significant evidence of wasting (06/14/231519) Physical Findings: Digestive Systems: Last BM RT 150 cc out so far today Dentition: Teeth: Missing teeth per flowsheets Edema: +1 generalized, BUE, +2BLE Skin: excoriation, lacerations/incisions Allergies on file: Aspirin, Cymbalta [duloxetine], Lyrica [pregabalin], and Penicillins Anthropometrics: Height: 160 cm (63) Weights Filed This Admission 06/14/23 0000 06/19/23 0900 Weight: 86.2 kg (190 lb) 86.2 kg (190 lb) Body mass index is 33.66 kg/m??. Weight Change: stable Pertinent Medications: Current Facility-Administered Medications Medication Route Frequency acetaminophen (TYLENOL) tablet 1,000 mg oral Q6H alteplase (CATHFLO ACTIVASE) injection 2 mg intercatheter PRN amLODIPine (NORVASC) tablet 10 mg oral DAILY ascorbic acid (vitamin C) (VITAMIN C) tablet 500 mg oral BID cholecalciferol (VITAMIN D3) oral drops 1,000 Units per ng tube DAILY cloNIDine (CATAPRES) 0.3 mg/24 hr patch 1 Patch transdermal WEEKLY dextrose 50 % solution 12.5 g intravenous PRN enoxaparin (LOVENOX) injection 40 mg subcutaneous DAILY Free Water (bolus dose) 60 mL per g tube Q4H glucagon injection 1 mg intramuscular PRN hydrALAZINE (APRESOLINE) injection 10 mg intravenous Q4H PRN HYDROmorphone (DILAUDID) tablet 2-4 mg oral Q3H PRN HYDROmorphone (PF) (DILAUDID) 0.5 mg/0.5 mL syringe 0.25-0.5 mg intravenous Q2H PRN insulin aspart U-100 (NOVOLOG FLEXPEN) injection subcutaneous Q6H insulin glargine injection pen 22 Units subcutaneous DAILY L.A. INSULIN ipratropium-albuteroL (DUONEB) 0.5 mg-3 mg(2.5 mg base)/3 mL nebulizer solution 3 mL nebulization Q4H lidocaine 5 % (LIDODERM) patch 2 Patch transdermal DAILY LORazepam (ATIVAN) tablet 1 mg oral Q4H PRN methocarbamoL (ROBAXIN) tablet 750 mg oral QID Multivitamins with minerals + ferrous gluconate (CENTRUM) oral solution 15 mL feeding tube DAILY naloxone (NARCAN) injection 0.1 mg intravenous PRN papain-alpha amylase-cellulase (CLOG ZAPPER) 2-5 mL feeding tube PRN polyethylene glycol 3350 (MIRALAX) packet 17 g per ng tube DAILY senna (SENOKOT) tablet 2 Tablet oral QHS Sodium chloride - hypochlorus acid 0.033% solution (aka Vashe) (VASHE) 0.033 % external solution topical BID sodium hypochlorite (DAKINS) 0.25 % external solution topical BID thiamine (VITAMIN B-1) 500 mg in sodium chloride (NS) 0.9 % 50 mL IVPB intravenous DAILY Followed by [START ON 06/27/2023] thiamine (VITAMIN B1) tablet 100 mg oral DAILY zinc sulfate (ZINCATE) capsule 220 mg oral DAILY Pertinent Labs: Lab Results Component Value Date/Time NA 132 (L) 06/25/2023 08:33 K 4.5 06/25/2023 08:33 CO2 24 06/25/2023 08:33 CL 99 06/25/2023 08:33 BUN 17 06/25/2023 08:33 CREATININE 0.40 (L) 06/25/2023 08:33 GLUCOSEPOC 187 (H) 06/25/2023 12:05 CALCIUM 8.0 (L) 06/25/2023 08:33 PHOS 5.4 (H) 06/25/2023 08:33 MG 1.9 06/25/2023 08:33 Lab Results Component Value Date/Time HGBA1C 8.2 (H) 06/14/2023 04:55 GLUCOSEPOC 187 (H) 06/25/2023 12:05 GLUCOSEPOC 161 (H) 06/25/2023 05:15 GLUCOSEPOC 128 (H) 06/24/2023 23:25 GLUCOSEPOC 257 (H) 06/24/2023 17:57 GLUCOSEPOC 235 (H) 06/24/2023 12:45 A1C 8.2 BS to 257 Estimated Nutrition Needs: MSJ x1.3 for wound healing (using 86.2 kg) = >1880 kcals/day 1.5 g/kg protein (using 65.9 kg adj wgt) - 2.0 g/kg protein (using 52.4 kg IBW) = 99-105 g protein/day Estimated Nutrition Intake: This am ate 100% breakfast and Boost, was refusing meals prior to that per I/O TF off 06/23 ASSESSMENT: Today was the most she has eaten per I/O. She states she is drinking 3 Boost GC/day which provides 570 mary/ 48 gm protein. Will check mary ct off TF Would decrease vit C to once/day and continue MVMzinc for now If unable to meet needs po, may need to restart TF Nutrition Risk Level: High (1) MEDICAL NUTRITION THERAPY - UPDATED PLAN Start mary ct am Decrease vit C to once/day So Anne RD, CD (Call PAS or use [employer]) to page RD covering this unit) * Elizabteh Soriano - 06/25/2023 1151 EDT Inpatient Palliative Care Initial Spiritual Assessment Re: Della Browning : 1970, AGE: 52 y.o. ROOM: [place] [address] BACKGROUND Palliative Care was consulted to assist with clarifying goals of care. 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 ASSESSMENT Beliefs & Values No scientology affiliation Connections At first, Della stated that she has no family. Later she stated she lives with Kilbourne but did not disclose their relationship. It is well documented this is her significant other and that Della does have other family members. Recommend reading Palliative Care director social service's notes for psychosocial assessment. Coping Della is unsure what helps her through difficult times. Meaning Making Della was unsure what is most important to her now. She stated she has been hospitalized since March. INTERVENTIONS Active and empathetic listening, validation of feelings, exploration of support systems CARE PLAN Palliative Care will continue to follow. Seo Strategist will attempt to connect with patient's spouse to offer spiritual and emotional support. RECOMMENDATIONS Request Spiritual Care support should patient/family show signs of spiritual/emotional distress. TIME STAMP: 15 minutes Elizabeth Soriano [facility]faith Seo Strategist, Palliative Care * Reza Bowers, RT - 06/25/2023 1047 EDT Respiratory Consult/Progress Note Indications for Respiratory therapy: Airway clearance Data Vitals: Heart Rate: 90 BPM, Resp: 22, SpO2: 95 % FIO2/O2 Device: O2 Flow Rate (L/min): 0 l/min, , O2 Device: None, FIO2 %: 21 % RT Orders: Q4 Duoneb Q4 ACT with Vpep Protocol Scoring: Bronchodilator/Inhalation Therapy Frequency Bronchodilator - Clinical Indications: No clinical indications Breath Sounds: Any abnormal BS decreased Response: No change / no treatment Pulse: <100 Resp Rate: 18-25 SOB: With exertion Total Score: 3 Comment:: cont q4 per pt request Frequency Based On Total Score: 0-4 = PRN 5-7 = QID 8-10 = Q4H 11-12 = Q2H Airway Clearance Therapy Frequency Airway Clearance - Clinical Indications: Productive cough Breath Sounds: Clear / diminished Sputum: Small (tsp) / None Consistency: None Cough Effort: Weak/ productive Color: None Total Score: 2 Comment: cont Q4 with duoneb Frequency Based On Total Score: 0-3 = PRN 4-6 = QID and PRN 7-9 = Q4H and PRN 10-11 = Q2H and PRN Hyperinflation Therapy Frequency Hyperinflation - Clinical Indications: Prevent atelectasis Breath Sounds: Other Surgery: Yes X-Ray / Atelectasis: No O2 Requirements: O2 at baseline Mobility Status: Mobile / at baseline Total: 3 Comment: Cont Q4 with duoneb Frequency Based On Total Score: 0-3 = PRN 4-6 = QID and PRN 7-9 = Q4H and PRN 10-12 = Q2H and PRN Action/Events 0820- Duoneb given followed with Vpep. Good effort by patient weak npc. 1200- Patient up to chair. Duoneb given. Vpep x 10. Npc 1630-Duoneb given. ACT completed Response/Results Encourage cough and independany use of Vpep. RT JAIDEN 06/25/23 * Ángel Godinez MD - 06/25/2023 0908 EDT Surgery Progress Note Service Date: 06/25/2023 Admit Date: 06/13/2023 23:23 Procedure: Nec fasc debridement x2 (OSH) Serial debridement, repair rectal injury (06/14) Additional debridement, washout (06/16) Additional debridement, washout, partial closure (06/18) Chief Complaint: NSTI 24 Hour Events: NAEO Vac change Subjective Feeling ok this AM, says she just ordered breakfast. No nausea, vomiting. Objective Vital Signs Temp: [36.1 ??C (96.9 ??F)-37.3 ??C (99.1 ??F)] , Heart Rate: [90 BPM-102 BPM] , Pulse: --, Pulse From Oximetry: [85 BPM-92 BPM] , Resp: [18-28] , BP: (96-142)/(62-72) , SpO2: [93 %-98 %] Physical Exam General Appearance: calm, in no distress Neuro: alert, oriented, moving all four limbs symmetrically Lung: coarse breath sounds grossly Heart: regular rate and rhythm Abdomen: soft, nontender, rectal tube in place Extremities: Warm and well perfused, mild edema Wound: R gluteal wound dressing clean/dry/intact. Wound vac holding suction Labs: CBC: Recent Labs 06/23/23 0544 06/24/23 0507 06/25/23 0833 WBC 16.19* 14.87* 10.99 RBC 3.11* 3.08* 2.74* HGB 9.3* 9.2* 8.2* HCT 27.7* 26.6* 24.2* MCV 89 86 88 MCH 29.9 29.9 29.9 MCHC 33.6 34.6 33.9 PLT 484* 411* 389* NEUTROABS 14.29* 12.96* 9.06* BMP: Recent Labs 06/23/23 0544 06/24/23 0507 NA 132* 130* K 4.8 4.7 CL 98 97 CO2 25 27 BUN 17 17 CREATININE 0.36* 0.39* CALCIUM 8.5 8.4* MG 1.6* 1.9 PHOS 3.6 4.8* Micro: 06/13 OR cultures: mixed GP and GN organisms, no speciation available 06/15 blood cx: NGTD Imaging: (Please refer to the chart for the full radiology reports including all of the findings and impressions.) XR CHEST PORTABLE LINE PLACEMENT Result Date: 06/17/2023 Slight retraction of pacemaker lead tip, now projecting just beyond tricuspid valve within the right ventricle. ET tube and NG tube as seen previously. Dense left lower lobe atelectasis and probable subsegmental atelectasis at the right lung base. Assessment 52 y.o. female with a history of HTN and T2DM who presented as a transfer from [facility] on 06/12 with necrotizing fasciitis. S/p debridement x2 at OSH and s/p debridement at [facility] on 06/14.Post-operative bradycardic arrest with ROSC after 2 rounds CPP (cardiology suspect 2/2 third degreeHB from manipulation of ETT). Coded a second time following extubation while she was on dexmedetomid ine. EC cards, NTD. Wound vac changed yesterday, appears to need further debridement. Plan Multimodal pain control Continue cc diet. Bowel regimen. Continue tube feeds and FW boluses. No abx due to adequate source control Anticipate OR tomorrow Rectal tube for wound hygiene DVT ppx: lovenox 40 mg qhs Dispo: on floor ÁNGEL GODINEZ MD 06/25/2023 9:09 PGY3 ACS pager #[phone] Associated attestation - Hira Franklin MD - 06/25/2023 1502 EDT I examined the patient with the resident/MADELINE I agree with the above findings and plan. Additional comments: Local wound care, glucose control. Needs debridement tomorrow. * Su Peña RT - 06/25/2023 0600 EDT Respiratory Consult/Progress Note Indications for Respiratory therapy:increased RR Data Vitals: Heart Rate: 92 BPM, Resp: 26, SpO2: 95 % FIO2/O2 Device: O2 Flow Rate (L/min): 0 l/min, , O2 Device: None, FIO2 %: 21 % RT Orders: Q4 Duo Q4 airway clearance Q4 IS Protocol Scoring: Bronchodilator/Inhalation Therapy Frequency Bronchodilator - Clinical Indications: No clinical indications Breath Sounds: Any abnormal BS decreased Response: No change / no treatment Pulse: <100 Resp Rate: 18-25 SOB: With exertion Total Score: 3 Comment:: cont q4 per pt request Frequency Based On Total Score: 0-4 = PRN 5-7 = QID 8-10 = Q4H 11-12 = Q2H Airway Clearance Therapy Frequency Airway Clearance - Clinical Indications: Productive cough Breath Sounds: Rhonchi / crackles Sputum: Moderate (tbs) Consistency: Thin / thick Cough Effort: Weak/ productive Color: Clear / white Total Score: 5 Comment: cont Q4 with duoneb Frequency Based On Total Score: 0-3 = PRN 4-6 = QID and PRN 7-9 = Q4H and PRN 10-11 = Q2H and PRN Hyperinflation Therapy Frequency Hyperinflation - Clinical Indications: Prevent atelectasis Breath Sounds: Diminished / crackles Surgery: Yes X-Ray / Atelectasis: No O2 Requirements: O2 at baseline Mobility Status: In bed Total: 7 Comment: Cont Q4 with duoneb Frequency Based On Total Score: 0-3 = PRN 4-6 = QID and PRN 7-9 = Q4H and PRN 10-12 = Q2H and PRN Action/Events Pt did well with VPEP tonight. Coarse crackles throughout. Does poor with IS pulling 500ml RT ESTELA 06/25/23 * Paulette Hoover - 06/24/2023 1450 EDT Request for Documentation Clarification Della Browning Kalyn ; VISIT [id number]; ACCT [id number] Final Query Response Sent: 06/24/23 14:50 EDT From: PAULETTE HOOVER MD Query question: Based on the clinical information, please specify all that apply. Provider response: Septic shock Preliminary Query Response Sent: 06/22/23 15:46 EDT From: ÁNGEL BUSTAMANTE MD Query question: Based on the clinical information, please specify all that apply. Original Query Sent: 06/18/23 10:02 EDT From: FOREIGN MIRANDA To: ÁNGEL BUSTAMANTE MD, PAULETTE HOOVER MD Based on the clinical information, please specify all that apply. * Hemorrhagic shock * Cardiogenic shock * Distributive shock * Hypovolemic shock * Septic shock * Shock, Other stated reason (NEC) (please specify) * No evidence of shock * Other explanation of clinical findings Clinical Information * Patient Summary: Patient admitted with nectrotizing fascititis tight buttocks. Also noted is complete heart block and PEA arrest. Patietn use of Leveophed. If known please provide diagnostic terminology to represent the patients need for pressor support. * Drugs/Treatment: * Intravenous fluids: electrolyte-A (PLASMALYTE-A) bolus 500 mL 500.0 mL null - 06/15/23 2:14 pm sodium chloride 0.9 % BOLUS 500 mL 500.0 mL null - 06/14/23 3:30 am * Transfusions: OR Surgeon by Ayden Alexander at 06/15/2023 19:43 She was anemic on arrival and had ongoing bleeding from her surgical site requiring transfusion. Progress Notes by Tai Azar at 06/17/2023 09:56 transfuse 1 u prbcs; * Vasopressors: norepinephrine (LEVOPHED) 8 mg in NS 250 mL infusion 2.0 mcg/min intravenous - 06/16/23 8:20 am norepinephrine (LEVOPHED) in NS 32 mcg/mL 250 mL 8 mg/250 mL (32 mcg/mL) infusio 4.0 mcg/min null -06/15/23 1:20 am * Signs/Symptoms: * Hypotension: hypotension - MAP 59 06/14/2023 05:00 MAP 62 06/14/2023 03:00 MAP 66 06/14/2023 12:30 MAP 64 06/14/2023 15:00 MAP 66 06/14/2023 20:00 * Other: Progress Notes by Tai Azar at 06/17/2023 09:56 Post-operative bradycardic arrest with ROSC after 2 rounds CPP (cardiology suspect 2/2 third degree HB from manipulation of ETT). Coded a second time following extubation while she was on dexmedetomidine * Taniya Jason, MS CCC-PROCESS MANAGER - 06/24/2023 1411 EDT Speech-Language Pathology Clinical Swallow Evaluation Name: Della Browning [address]: [address] [place] [id number] (home) Date of : 1970 Primary Physician: UNKNOWN,PROVIDER Referring Physician: John Dooley MD PROCESS MANAGER Diagnosis: Dysphagia, unspecified difficulty: Medical Diagnosis: Necrotizing fasciitis ([facility]) [M72.6] Date of Onset: 06/13/2023 Date of Referral: 06/23/23 Date of Service: 06/24/2023 Total Treatment Time: 20 min Name of Provider: Taniya Jason, MS CCC-PROCESS MANAGER Subjective/Objective SUBJECTIVE: I got 'em on top and bottom; dentures I'm gearing up to tackle more of my tuna sandwich OBJECTIVE: PROCESS MANAGER was consulted to assess oral-pharyngeal swallowing Current Precautions: none identified History: Per provider notes with information relevant to PROCESS MANAGER evaluation, Ms Della Browning is a 52 y.o. female with a history of HTN and T2DM who presented as a transfer from [facility] on 06/12 with necrotizing fasciitis. S/p debridement x2 at OSH and s/p debridement at [facility] on 06/14. Post-operative bradycardic arrest with ROSC after 2 rounds CPP (cardiology suspect 2/2 third degree HB from manipulation of ETT). Coded a second time following extubation while she was on dexmedetomidine. EC cards, NTD. Recovering on the floor. NAEO, planning for vac change today. WC improving. Getting tube feeds. SLPevaluation today 24o Events Relevant to PROCESS MANAGER: per MD, concerns expressed by SICU RN regarding swallowing yesterday PMH: No past medical history on file. Vision: adequate for session Hearing: wears B hearing aids (BTE) Baseline Communication-Cognitive functioning: independent although was not employed prior to admission Current Diet: Regular Diet cons carb although has not had access to much PO due to concerns with swallowing, has EN tube in L nares Diet prior to admission: regular Current Medications: Reviewed by this provider during medical record review Current Status: Cognitive Status: Patient was alert and cooperative during evaluation. Patient presented with cognitive-linguistic impairments during evaluation. Respiratory Status: Respiratory status was judged to be WFL to support oral feeding. Clinical Swallow Evaluation: Patient/Family: consented to completing the clinical bedside swallow exam. Oral Peripheral Motor Exam: Face: Face was symmetrical with adequate strength and range of motion. Lips: Adequate labial strength and range of motion. Tongue: Adequate lingual strength, range of motion and coordination. Velum: Unable to view during the evaluation. Dentition: Wears dentures on top and bottom. Laryngeal Excursion: present Speech Intelligibility: Speech with functional intelligibility. No deficits noted. Vocal Quality: Patient presents with a Mild hoarse/harsh: vocal quality. Cough: Patient presents with a strong, productive cough. Positioning: Seen at bedside for evaluation. Consistencies Tested: was assessed with thin liquids and solid foods. Steven salad, tuna salad sandwich, Boost- Glucose Control Methods of Delivery: Patient was able to self administer all items with PROCESS MANAGER assistance using a spoon, cup and straw. Oral Phase Findings: Oral phase presents with functional containment, coordination and clearance. Prolonged mastication; pausing during oral prep and transit, to catch her breath Pharyngeal Phase: Hyo-laryngeal excursion is present. No overt signs/ symptoms of laryngeal penetration/ aspiration were identified. Audible congestion which pt mobilized during the session and unclear if it was related to swallowing Esophageal Phase: did not exhibit overt signs of esophageal difficulty Endorsing more frequent episodes of reflux Compensatory Strategies: The following compensatory swallow strategies were attempted during today's evaluation: soft, chopped diet textures Patient/Family Education/Training: Topic: Patient/Family education and training was completed today including the role of Speech-Language Pathology, results of today's exam/recommendations, anatomy and physiology of the swallowing mechanism,and questions were addressed. Learner: patient Method of Education: Verbal Barriers to Learning/Education: patient's altered ability to learn/carry over information at this time Patient: was able to verbalize understanding of information Shared rx's with MD Assessment/Plan Assessment /CLINICAL IMPRESSIONS: is a 52 y.o. female admitted with Necrotizing fasciitis ([facility]) [M72.6] A clinical swallow evaluation was completed today by Speech Language Pathology secondary to concerns for oropharyngeal dysphagia, and risk of laryngeal penetration/aspiration. currently presents with swallowing which is grossly functional, although with altered breathing/swallowing coordination due to debility and recovering respiratory compromise. There is some concern for airway invasion at this time. Compensatory strategies appear effective inmitigating signs and symptoms of dysphagia. Prognosis for improvement in swallow function is judgedto be and will follow clinical course. Anticipate patient will tolerate current recommendations. PROCESS MANAGER to follow. GOALS: Patient will swallow bites of food consistencies without signs of aspiration during all PROCESS MANAGER sessions Patient will swallow sips of liquids without signs of aspiration during all PROCESS MANAGER sessions. Patient will demonstrate understanding of rationale for food and/or liquid consistency modifications and strategies to promote safe swallowing. PLANS/RECOMMENDATIONS: Food and Liquid Textures: Downgrade from Regular to Mechanical Soft diet textures to ease chewing/swallowing effort in setting of Defer to MD and RD to determine nutritional parameters Medication Administration: Whole in a bite of pureed food Feeding/Eating Strategies: Please assist with tray set up and upright positioning for PO PROCESS MANAGER to follow up : Yes, will follow up under a consult model of care. May benefit from formal Communication-Cognitive evaluation if demonstrating residual impairments as she strengthens medically. Next PROCESS MANAGER session: Confirm tolerance of diet and advance as appropriate Anticipated PROCESS MANAGER needs at discharge from Acute Medical Setting: To be determined Recommended Discharge Setting based on current status: anticipate likely need for intensive rehab at discharge. Taniya Jason MS CCC-PROCESS MANAGER 06/24/2023 14:11 Speech-Language Pathologist Acute Rehabilitation Therapy (PROCESS MANAGER/OT/PT) Secure Chat preferred #[phone] (Saturday- from [phone]) Float PROCESS MANAGER Pager #[phone] (Daily from [phone]) * Reza Bowers, RT - 06/24/2023 1242 EDT Respiratory Consult/Progress Note Indications for Respiratory therapy: Airway clearance Data Vitals: Heart Rate: 90 BPM, Resp: 20, SpO2: 95 % FIO2/O2 Device: O2 Flow Rate (L/min): 0 l/min, , O2 Device: None, FIO2 %: 21 % RT Orders: Q4 Duoneb Q4 ACT with Vpep Protocol Scoring: Bronchodilator/Inhalation Therapy Frequency Bronchodilator - Clinical Indications: LIP order Breath Sounds: Any abnormal BS decreased Response: No change / no treatment Pulse: <100 Resp Rate: 18-25 SOB: With exertion Total Score: 3 Comment:: Q4 Frequency Based On Total Score: 0-4 = PRN 5-7 = QID 8-10 = Q4H 11-12 = Q2H Airway Clearance Therapy Frequency Airway Clearance - Clinical Indications: History of mucous production Breath Sounds: Clear / diminished Sputum: Small (tsp) / None Consistency: None Cough Effort: Strong/ non-productive Color: None Total Score: 0 Comment: qid Frequency Based On Total Score: 0-3 = PRN 4-6 = QID and PRN 7-9 = Q4H and PRN 10-11 = Q2H and PRN Hyperinflation Therapy Frequency Hyperinflation - Clinical Indications: Decreased breath sounds with increased FiO2 Breath Sounds: Other Surgery: Yes X-Ray / Atelectasis: Yes O2 Requirements: O2 at baseline Mobility Status: Mobile / at baseline Total: 5 Comment: (q4) Frequency Based On Total Score: 0-3 = PRN 4-6 = QID and PRN 7-9 = Q4H and PRN 10-12 = Q2H and PRN Action/Events 0800- Duoneb given followed with Vpep. Good effort by patient weak npc. 1220- Duoneb given. Vpep completed. npc Response/Results Encourage patient to improve cough technique. REZA BOWERS, RT 06/24/23 * Monica Sagastume, DPT - 06/24/2023 1141 EDT [facility] Acute Therapy [facility] Physical Therapy Contact Note Date of Service: 06/24/2023 PT checked in on pt status today. Per chart review and conversation with RN, pt with increased workof breathing today and RN is closely monitoring pts medical status, so not appropriate for PT today. She indicated nursing would attempt lifting pt to recliner in next day or so if medically stable. PT will plan to follow up later this week as appropriate. Monica Sagastume DPT 06/24/2023 11:41 * Nedra Armendariz RN - 06/24/2023 1101 EDT CASE MANAGEMENT UPDATE: Level of Care: Acute/ IP Admission Point of Origin: [facility] Appropriate for Transfer Return vs Alternative Facility: N/a per team Discharge plan/ Estimated date: TBD Insurance/ LTC Medicaid Status: Medicaid Barriers to d/c: N/a; medically complex Support Network: anya Lezama ([phone]); Henrietta Ayden ([phone]) Additional Needs/ Next Steps: Nec fasc debridement x2 (OSH) Serial debridement, repair rectal injury (06/14) Additional debridement, washout (06/16) Additional debridement, washout, partial closure (06/18) (CM Note 06/23:) Patient transferred from ICU to gen surgery unit. Remains acute for continued IP hospitalization. LDAs: David/ ngt, urinary catheter, rectal tube, PIV, W[place] (change M/W/F) Infusions: TF (Promote @ 106ml/ hr) Pending PROCESS MANAGER evaluation today. Care Team: ACS (primary team), Cardiology, Palliative Care, PT, PROCESS MANAGER, This CM will continue to follow and assist with coordination of disposition plan dependent on clinical course/ care team recommendations. Please reach out with any additional questions/ concerns, or acute changes in care plan in order toprovide patient with adequate supports. Nedra Armendariz RN CM CMSW Department (Available via MideoMe) * Chato Patel MD - 06/24/2023 0809 EDT Surgery Progress Note Service Date: 06/24/2023 Admit Date: 06/13/2023 23:23 Procedure: Nec fasc debridement x2 (OSH) Serial debridement, repair rectal injury (06/14) Additional debridement, washout (06/16) Additional debridement, washout, partial closure (06/18) Chief Complaint: NSTI 24 Hour Events: NAEO Tx to floor Subjective Delirious this am. Mostly unintelligible. Alert and did say thank you when I turned her TV on. Objective Vital Signs Temp: [36.6 ??C (97.9 ??F)-36.9 ??C (98.4 ??F)] , Heart Rate: [84 BPM-102 BPM] , Pulse: --, Pulse From Oximetry: [87 BPM-102 BPM] , Resp: [16-29] , BP: (114-158)/(62-112) , SpO2: [93 %-100 %] Physical Exam General Appearance: calm, in no distress Neuro: alert, oriented, moving all four limbs symmetrically Lung: loud rhonchi bilaterally Heart: regular rate and rhythm Abdomen: soft, nontender, rectal tube in place Extremities: Warm and well perfused, mild edema Wound: R gluteal wound dressing clean/dry/intact. Wound vac holding suction Labs: CBC: Recent Labs 06/22/23 0604 06/23/23 0544 06/24/23 0507 WBC 14.26* 16.19* 14.87* RBC 3.14* 3.11* 3.08* HGB 9.1* 9.3* 9.2* HCT 28.1* 27.7* 26.6* MCV 90 89 86 MCH 29.0 29.9 29.9 MCHC 32.4 33.6 34.6 PLT 483* 484* 411* NEUTROABS 11.94* 14.29* 12.96* BMP: Recent Labs 06/22/23 0604 06/23/23 0544 06/24/23 0507 NA 136 132* 130* K 4.8 4.8 4.7 CL 102 98 97 CO2 25 25 27 BUN 15 17 17 CREATININE 0.38* 0.36* 0.39* CALCIUM 8.5 8.5 8.4* MG 1.8 1.6* 1.9 PHOS 2.8 3.6 4.8* Micro: 06/13 OR cultures: mixed GP and GN organisms, no speciation available 06/15 blood cx: NGTD Imaging: (Please refer to the chart for the full radiology reports including all of the findings and impressions.) XR CHEST PORTABLE LINE PLACEMENT Result Date: 06/17/2023 Slight retraction of pacemaker lead tip, now projecting just beyond tricuspid valve within the right ventricle. ET tube and NG tube as seen previously. Dense left lower lobe atelectasis and probable subsegmental atelectasis at the right lung base. Assessment 52 y.o. female with a history of HTN and T2DM who presented as a transfer from [facility] on 06/12 with necrotizing fasciitis. S/p debridement x2 at OSH and s/p debridement at [facility] on 06/14.Post-operative bradycardic arrest with ROSC after 2 rounds CPP (cardiology suspect 2/2 third degreeHB from manipulation of ETT). Coded a second time following extubation while she was on dexmedetomid ine. EC cards, NTD. Recovering on the floor. NAEO, planning for vac change today. WC improving. Getting tube feeds. SLPevaluation today. Plan Multimodal pain control Continue cc diet. Bowel regimen. Continue tube feeds and FW boluses. No abx due to adequate source control--F/U WBC tomorrow Wound vac change today (MWF) Rectal tube for wound hygiene DVT ppx: lovenox 40 mg qhs Dispo: on floor CHATO PATEL MD 06/24/2023 8:52 PGY3 ACS pager #[phone] Associated attestation - Hira Franklin MD - 06/24/2023 1442 EDT I examined the patient with the resident/MADELINE I agree with the above findings and plan. Additional comments: Recovering appropriately. Managing medical co morbidities and providing major wound care. * Christy Porras, RT - 06/23/2023 0366 EDT Respiratory Consult/Progress Note Indications for Respiratory therapy: LIP order Data Vitals: Heart Rate: 102 BPM, Resp: 22, SpO2: 95 % FIO2/O2 Device: O2 Flow Rate (L/min): 0 l/min, , O2 Device: None, FIO2 %: 21 % RT Orders: Q4 Duo Q4 airway clearance Protocol Scoring: Bronchodilator/Inhalation Therapy Frequency Bronchodilator - Clinical Indications: LIP order Breath Sounds: Any abnormal BS decreased Response: Mild response, increase subjective per CODE MACHINE OPERATOR Pulse: >100 Resp Rate: 26-32 SOB: At rest Total Score: 7 Comment:: Q4 Frequency Based On Total Score: 0-4 = PRN 5-7 = QID 8-10 = Q4H 11-12 = Q2H Airway Clearance Therapy Frequency Airway Clearance - Clinical Indications: Productive cough Breath Sounds: Rhonchi / crackles Sputum: Small (tsp) / None Consistency: None Cough Effort: Weak/ productive Color: None Total Score: 3 Comment: qid Frequency Based On Total Score: 0-3 = PRN 4-6 = QID and PRN 7-9 = Q4H and PRN 10-11 = Q2H and PRN Hyperinflation Therapy Frequency Hyperinflation - Clinical Indications: Atelectasis on CXR Breath Sounds: Diminished / crackles Surgery: Yes X-Ray / Atelectasis: Yes O2 Requirements: O2 at baseline Mobility Status: In chair Total: 8 Comment: Q4 Frequency Based On Total Score: 0-3 = PRN 4-6 = QID and PRN 7-9 = Q4H and PRN 10-12 = Q2H and PRN Action/Events Respiratory events; Pt brought to floor from ICU, pt with increased anxiety and increased WOB and RR. Neb given with noimprovement, pt in pain and anxious, unable to do VPEP. Spoke with resident to ask about meds for anxiety. Pt to stay Q4 due to pt requesting them, pt does not score per protocol. RT ALEISHA 06/23/23 * Taniya Jason MS CCC-PROCESS MANAGER - 06/23/2023 1705 EDT Speech-Language Pathology Contact Note PROCESS MANAGER consult received for: Clinical Bedside Swallow Evaluation. Will follow up to provide interventions as appropriate. Taniya Jason MS CCC-PROCESS MANAGER 06/23/2023 17:06 Speech-Language Pathologist Acute Rehabilitation Therapy (PROCESS MANAGER/OT/PT) Secure Chat preferred Float PROCESS MANAGER Pager #[phone] (Daily from [phone]) * Reza Poon, RT - 06/23/2023 1312 EDT Respiratory Consult/Progress Note Indications for Respiratory therapy: Airway clearance Data Vitals: Heart Rate: 92 BPM, Resp: 22, SpO2: 97 % FIO2/O2 Device: O2 Flow Rate (L/min): 0 l/min, , O2 Device: None, FIO2 %: 21 % RT Orders: Q4 Airway clearance PRN duoneb Protocol Scoring: Bronchodilator/Inhalation Therapy Frequency Bronchodilator - Clinical Indications: (smoking history) Breath Sounds: Any abnormal BS decreased Response: Mild response, increase subjective per CODE MACHINE OPERATOR Pulse: <100 Resp Rate: 18-25 SOB: With exertion Total Score: 4 Comment:: prn Frequency Based On Total Score: 0-4 = PRN 5-7 = QID 8-10 = Q4H 11-12 = Q2H Airway Clearance Therapy Frequency Airway Clearance - Clinical Indications: Productive cough Breath Sounds: Rhonchi / crackles Sputum: Small (tsp) / None Consistency: Thin / thick Cough Effort: Weak/ productive Color: Clear / white Total Score: 4 Comment: qid Frequency Based On Total Score: 0-3 = PRN 4-6 = QID and PRN 7-9 = Q4H and PRN 10-11 = Q2H and PRN Hyperinflation Therapy Frequency Hyperinflation - Clinical Indications: Atelectasis on CXR Breath Sounds: Diminished / crackles Surgery: Yes X-Ray / Atelectasis: Yes O2 Requirements: O2 at baseline Mobility Status: In chair Total: 8 Comment: Q4 Frequency Based On Total Score: 0-3 = PRN 4-6 = QID and PRN 7-9 = Q4H and PRN 10-12 = Q2H and PRN Action/Events Respiratory events; 0835 treatment done. Pt still needs some encouragement. No neb at this time. 0935 duoneb given 1235 treatment given. Pt is asking for duonebs so I have left them QID. Pt has moderate effort withVPEP. She will need help. Response/Results Weaning and Toleration of treatments; Wean as tolerated. RT MAGGIE 06/23/23 * Tai Azar MD - 06/23/2023 1017 EDT Surgery Progress Note Service Date: 06/23/2023 Admit Date: 06/13/2023 23:23 Procedure: Nec fasc debridement x2 (OSH) Serial debridement, repair rectal injury (06/14) Additional debridement, washout (06/16) Additional debridement, washout, partial closure (06/18) Chief Complaint: NSTI 24 Hour Events: NAEO Subjective Feeling okay this morning. Pain is tolerable with wound vac to suction with current pain med regimen, painful with turns. Denies any issues. Objective Vital Signs Temp: [36.4 ??C (97.5 ??F)-36.9 ??C (98.5 ??F)] , Heart Rate: [88 BPM-105 BPM] , Pulse: --, Pulse From Oximetry: [88 BPM-103 BPM] , Resp: [14-34] , BP: (131-178)/(63-120) , SpO2: [94 %-100 %] Physical Exam General Appearance: calm, in no distress Neuro: alert, oriented, moving all four limbs symmetrically Lung: loud rhonchi bilaterally Heart: regular rate and rhythm Abdomen: soft, nontender, rectal tube in place Extremities: Warm and well perfused, mild edema Wound: R gluteal wound dressing clean/dry/intact. Wound vac holding suction Labs: CBC: Recent Labs 06/21/23 0507 06/22/23 0604 06/23/23 0544 WBC 15.50* 14.26* 16.19* RBC 3.08* 3.14* 3.11* HGB 9.4* 9.1* 9.3* HCT 27.7* 28.1* 27.7* MCV 90 90 89 MCH 30.5 29.0 29.9 MCHC 33.9 32.4 33.6 PLT 475* 483* 484* NEUTROABS 12.91* 11.94* 14.29* BMP: Recent Labs 06/21/23 0507 06/22/23 0604 06/23/23 0544 NA 139 136 132* K 5.2* 4.8 4.8 CL 106 102 98 CO2 24 25 25 BUN 20 15 17 CREATININE 0.32* 0.38* 0.36* CALCIUM 8.4* 8.5 8.5 MG 2.1 1.8 1.6* PHOS 2.5 2.8 3.6 Micro: 06/13 OR cultures: mixed GP and GN organisms, no speciation available 06/15 blood cx: NGTD Imaging: (Please refer to the chart for the full radiology reports including all of the findings and impressions.) XR CHEST PORTABLE LINE PLACEMENT Result Date: 06/17/2023 Slight retraction of pacemaker lead tip, now projecting just beyond tricuspid valve within the right ventricle. ET tube and NG tube as seen previously. Dense left lower lobe atelectasis and probable subsegmental atelectasis at the right lung base. Assessment 52 y.o. female with a history of HTN and T2DM who presented as a transfer from [facility] on 06/12 with necrotizing fasciitis. S/p debridement x2 at OSH and s/p debridement at [facility] on 06/14.Post-operative bradycardic arrest with ROSC after 2 rounds CPP (cardiology suspect 2/2 third degreeHB from manipulation of ETT). Coded a second time following extubation while she was on dexmedetomid ine. Has transvenous pacing wires in place now. Ongoing serial debridements with hope for partial closure and wound vac placement 06/21--next change Mon. Plan Multimodal pain control Continue cc diet. Bowel regimen. Will have nursing bedside swallow eval +/- PROCESS MANAGER assessment Continue tube feeds and FW boluses. No abx due to adequate source control--F/U WBC tomorrow Wound vac change tomorrow (MWF) Rectal tube for wound hygiene Transfer to floor today DVT ppx: lovenox 40 mg qhs Dispo: transfer to floor TAI AZAR MD 06/23/2023 10:17 PGY3 ACS pager #[phone] * Abebe Stewart RN - 06/23/2023 0512 EDT Images from the original note were not included. Data: Pt on low continuous suction to wound on R gluteal region. Scant pink tinge output in suctiontubing, ACS aware. Action: Frequent turns and shifting weight. Pain medication given when indicated Response: Pt resting comfortable after receiving mediation. VSS, Alert and responsive with some confusion at times. ABEBE STEWART RN 06/23/2023 5:12 * Shelly Yancey, RT - 06/23/2023 0427 EDT Respiratory Progress Note Indications for Respiratory therapy: Respiratory Distress Data Vitals: Heart Rate: 95 BPM, Resp: 22, SpO2: 97 % FIO2/O2 Device: O2 Flow Rate (L/min): 0 l/min, , O2 Device: None, FIO2 %: 21 % RT Orders: Q4 Duo Q4 Airway clearance: EZ PAP/VPEP Action/Events Patient remains on room air throughout shift. Treatments done as ordered. Response/Results Continue to monitor and assess SHELLY YANCEY, 06/23/23 * Antonio Vasquez, RT - 06/22/2023 1750 EDT Respiratory Progress Note Indications for Respiratory therapy: Respiratory Distress Data Vitals: Heart Rate: 95 BPM, Resp: 26, SpO2: 97 % FIO2/O2 Device: O2 Flow Rate (L/min): 0 l/min, , O2 Device: None, FIO2 %: 21 % RT Orders: Q4 Duoneb Q4 Airway clearance: EZ-PAP Q4 Airway clearance: Cough Assist / VPEP Action/Events Respiratory events; 09:25: BS diminished. Duoneb given via SVN, EZ-PAP x 20, VPEP x 15. RA saturations 98%. Patient tolerated well. 12:55: BS diminished, Duoneb given via SVN. VPEP x20, refused EZ-PAP 17:50: BS diminished, Duoneb given via SVN. VPEP x20, and IS to 600ml. Response/Results Weaning and Toleration of treatments; Continue with orders RT MAYI 06/22/23 * Ángel Bustamante MD - 06/22/2023 1431 EDT Brief SICU progress note and GOC update 06/22/2023 Brief SICU Update: By the afternoon of 06/22/2023 the patient had been maintained on room air for roughly 6 hours with no increased work of breathing and no subjective shortness of breath. Her last high flow nasal cannula need was during the day on 06/20. She has been off pressors and does not currently have any drips.At this time, she no longer has any ICU level needs and is safe for transfer off of the SICU service. The ACS team was contacted and agreed to take the patient back under their own care. At this timethe SICU will be signing off. Please immediately reach out to the SICU team if the patient developsany ICU level care needs. Thank you for letting us participate in the care of this patient. Goals of care: CODE STATUS: FULL CODE A brief goals of care conversation was held with the patient around 1400 on 06/22/2023. The patient was alert and oriented to self, month and year, that she was in a hospital, but initially stated that she was in [place] where she normally receives care but did indicate understanding when was informed that she is now in [facility]. Holden was able to verbalize that she is here in the hospital for management of a large wound from a skin infection on her buttock, and that roughly a weekago her heart stopped twice and required CPR and other interventions to maintain her life. At this time, patient was deemed to have capacity so a brief CODE STATUS conversation was held. At this time, Holden is willing to receive chest compressions if her heart were to stop beating and intubation if her respiratory status was to decline so severely that she needed airway protection. In the event that her overall condition deteriorated significantly, she verbalized that she would like her partner Carey and her niece Leander to make decisions for her and approved of their initial decision to make her DNR/DNI based on her condition at that time. When Holden was informed that her wound would likely take several months of intensive rehab, likely inside of a intensive rehab facility/usp, Holden verbalized that she would be okay with this kind of care for a duration of several months to a year. Her partner, Carey, was present during this conversation and he appreciated this insight. He agrees at this time that, in the event that her overall status worsens significantly, he will help guide her decision making. Randi niece, Leander, was contacted over the phone and informed of the plan to transfer Holden out of the ICU. Leander was also informed of this goals of care conversation and she agrees that, now that Holden is able to speak for herself, it is reasonable to change her CODE STATUS to full code. Leander verbalized understanding that there are certain causes of possible deterioration and that Chrissy suffer which will not be reversed by CPR, and if Holden deteriorates in 1 of those ways, that the c onversation surrounding CODE STATUS will be reinitiated. Leander and Carey are both amenable to ongoinggoals of care conversations with palliative care. Ángel Bustamante MD 06/22/23 14:39 Emergency Medicine Resident, PGY1 SICU House Staff #[phone] (Service Pager) * Tai Azar MD - 06/22/2023 1250 EDT Surgery Progress Note Service Date: 06/22/2023 Admit Date: 06/13/2023 23:23 Procedure: Nec fasc debridement x2 (OSH) Serial debridement, repair rectal injury (06/14) Additional debridement, washout (06/16) Additional debridement, washout, partial closure (06/18) Chief Complaint: NSTI 24 Hour Events: NAEO Subjective Doing well this morning. Had some chest pressure that bothered her most of the night. No nausea or vomiting. Objective Vital Signs Temp: [36.5 ??C (97.7 ??F)-37.1 ??C (98.7 ??F)] , Heart Rate: [85 BPM-100 BPM] , Pulse: --, Pulse From Oximetry: [85 BPM-100 BPM] , Resp: [15-26] , BP: (132-179)/(72-99) , SpO2: [97 %-100 %] Physical Exam General Appearance: calm, in no distress Neuro: alert, oriented, moving all four limbs symmetrically Lung: loud rhonchi bilaterally Heart: regular rate and rhythm Abdomen: soft, nontender, rectal tube in place Extremities: Warm and well perfused, mild edema Wound: R gluteal wound dressing clean/dry/intact. Dressing change deferred this morning Labs: CBC: Recent Labs 06/20/23 0501 06/21/23 0507 06/22/23 0604 WBC 19.47* 15.50* 14.26* RBC 3.23* 3.08* 3.14* HGB 9.5* 9.4* 9.1* HCT 28.8* 27.7* 28.1* MCV 89 90 90 MCH 29.4 30.5 29.0 MCHC 33.0 33.9 32.4 PLT 455* 475* 483* NEUTROABS 17.43* 12.91* 11.94* BMP: Recent Labs 06/20/23 0501 06/21/23 0507 06/22/23 0604 NA 139 139 136 K 5.3* 5.2* 4.8 CL 108 106 102 CO2 23 24 25 BUN 27* 20 15 CREATININE 0.54 0.32* 0.38* CALCIUM 8.2* 8.4* 8.5 MG 2.1 2.1 1.8 PHOS 3.5 2.5 2.8 Micro: 06/13 OR cultures: mixed GP and GN organisms, no speciation available 06/15 blood cx: NGTD Imaging: (Please refer to the chart for the full radiology reports including all of the findings and impressions.) XR CHEST PORTABLE LINE PLACEMENT Result Date: 06/17/2023 Slight retraction of pacemaker lead tip, now projecting just beyond tricuspid valve within the right ventricle. ET tube and NG tube as seen previously. Dense left lower lobe atelectasis and probable subsegmental atelectasis at the right lung base. Assessment 52 y.o. female with a history of HTN and T2DM who presented as a transfer from [facility] on 06/12 with necrotizing fasciitis. S/p debridement x2 at OSH and s/p debridement at [facility] on 06/14.Post-operative bradycardic arrest with ROSC after 2 rounds CPP (cardiology suspect 2/2 third degreeHB from manipulation of ETT). Coded a second time following extubation while she was on dexmedetomid ine. Has transvenous pacing wires in place now. Ongoing serial debridements with hope for partial closure and wound vac placement today. Plan -Appreciate SICU care -Wound vac placement by ACS today, anticipate to wall suction to maintain seal TAI AZAR MD 06/22/2023 12:50 PGY3 ACS pager #[phone] Associated attestation - Efraín Rueda MD - 06/22/2023 6693 EDT Attending attestation statement: I saw and examined the patient and agree with the findings and plans as documented. Doing well, will attempt wound vac placement today. Appreciate SICU management. Darien Rueda MD Acute Care Surgery Pager #[phone] * Moo Monique MD - 06/22/2023 0704 EDT SICU Daily Progress Note Admit Date: 06/13/2023 Primary team: ACS CC: NSTI Right Gluteal region Procedures: Soft tissue Debridement RLE gluteal region at OSH Debridement of right buttock, primary repair of rectal injury, 06/13 RTOR for further debridement 06/16 24hr Events: Weaned off HFNC to NC, down to 3 L Started on Lantus 10 U then subsequently started on insulin gtt at 2U/hr TFs to 70 cc/hr Subjective: Overall, patient reports continued improvement. She continues to endorse pain in her buttocks and mild pain in her chest, as well as diffusely throughout her abdomen. Denies nausea or vomiting and reports eating is going well. Objective: Temp: [36.5 ??C (97.7 ??F)-37.1 ??C (98.7 ??F)] , Heart Rate: [83 BPM-100 BPM] , Resp: [15-26] , BP: (132-179)/(58-99) , SpO2: [93 %-100 %] I/O: Current Shift: 06/21 0700 - 06/21 1459 In: 147.6 [I.V.:7.6] Out: 110 [Urine:110] 24 hours: 06/20 0700 - 06/21 0659 In: 2248.7 [P.O.:300] Out: 2695 [Urine:2695] Tubes:VUONG, rectal tube Lines: Right Subclavian CVC Infusions/Rates: insulin Physical Exam: Gen: Awake, opens eyes spontaneously, no acute distress HEENT: Some mild nystagmus Resp: normal respiratory effort on room air CV: normal sinus on telemetry, normal S1 S2 Abd: Protuberant, non distended, minimal tenderness to palpation throughout her abdomen : Vuong in place draining clear yellow urine Ext: WWP Neuro: Opens eyes spontaneously, hard of hearing, alert. Oriented to self, year, states it is June, and that she is in the [facility] but states that she is in the [facility]. 4/5 strength in the LUE, 5/5 strength in the RUE. 5/5 strength in the RLE. 4/5 strength in the LLE. Skin/Wound: Large right-sided buttock wound that extends into the gluteal crease. No surrounding erythema or purulent drainage. Dressing CDI Micro: Moderate gram positive and gram negative organisms from surgical cultures TTE 06/19/23 Left Ventricle The left ventricular cavity was [...] The right atrium was normal in size. Aortic Valve The aortic valve structure was trileaflet. The aortic leaflets were mildly thickened. There was no aortic valve stenosis. There was no aortic valve regurgitation. AV Peak Velocity: 1.5 m/s. AV Mean Gradient: 5 mmHg. AV Area VTI: 2.7 cm2. Mitral Valve Mitral valve structure was normal. There was no significant mitral valve stenosis or regurgitation. Tricuspid Valve Tricuspid valve structure was normal. There was no significant tricuspid valve regurgitation. There was no tricuspid valve stenosis. Pulmonic Valve The pulmonic valve was not well visualized. There was no significant pulmonic valve regurgitation. There was no pulmonic valve stenosis. Pulmonic Artery Unable to assess PA pressure. Ascending Aorta The aorta was normal in size. Pericardium There was no pericardial effusion. IVC/SVC The inferior vena cava was normal in size. The inferior vena cava demonstrated a diameter of <=21 mm and collapses >50%; therefore, the right atrial pressure is estimated at 0-5 mmHg. New Imaging (w/in 24h): XR CHEST PORTABLE 1 VIEW Result Date: 06/20/2023 Findings of improving left lower lobe atelectasis and persistent interstitial pulmonary edema. [id number] XR FEEDING TUBE PLACEMENT Result Date: 06/20/2023 Findings/Impression: Portable AP view centered over the lower chest upper abdomen demonstrates thatthe feeding tube tip projects over the 2nd-3rd portion of the duodenum. This is neither a complete view of the chest nor of the abdomen. If either view is needed, formal films are recommended. [id number] XR FEEDING TUBE PLACEMENT Result Date: 06/18/2023 Findings/Impression: Portable AP view centered over the lower chest upper abdomen demonstrates thatthe feeding tube tip projects over the gastric antrum. Nonobstructive bowel gas pattern. Suspected left pleural effusion with adjacent atelectasis, as evaluated on same-day chest radiograph. This is neither a complete view of the chest nor of the abdomen. If either view is needed, formal films are recommended. I have personally reviewed the images and the above interpretation and agree with the findings. [id number] XR CHEST PORTABLE LINE PLACEMENT Result Date: 06/18/2023 Right internal jugular temporary pacemaker wire lead in right ventricle. Dense left lower lobe atelectasis. Probable bilateral pleural effusions. [id number] CT CHEST WO CONTRAST Result Date: 06/18/2023 1. Appropriate positioning of the right internal jugular approach central venous sheath containing transvenous pacing wire. 2. Bibasilar consolidations, left greater than right. This most likely reflects atelectasis given volume loss. Evaluation for concurrent pneumonia is limited due to lack of contrast. 3. Small bilateral pleural effusions, left greater than right. 4. Scattered groundglass opacities, predominantly along the mediastinum, may represent small contusions due to resuscitation efforts. 5. Acute nondisplaced sternal body fracture and multiple bilateral acute nondisplaced to minimally displaced rib fractures, also related to resuscitation efforts. 6. Asymmetric skin thickening and left breast edema. Correlate with physical exam. Follow-up with breast care imaging center is recommended if these findings are not felt to be acute. I have personally reviewed the images and the above interpretation and agree with the findings. [id number] XR CHEST PORTABLE 1 VIEW Result Date: 06/18/2023 Interval extubation and removal of NG tube. Transvenous pacemaker wire tip in right ventricular apex. Interval development of left lower lobe atelectasis. Probable developing right lower lobe atelectasis. [id number] XR CHEST PORTABLE LINE PLACEMENT Result Date: 06/17/2023 Slight retraction of pacemaker lead tip, now projecting just beyond tricuspid valve within the right ventricle. ET tube and NG tube as seen previously. Dense left lower lobe atelectasis and probable subsegmental atelectasis at the right lung base. [id number] XR CHEST PORTABLE LINE PLACEMENT Result Date: 06/16/2023 Lines and tubes as described. Improving left lower lobe atelectasis. [id number] XR CHEST PORTABLE LINE PLACEMENT Result Date: 06/16/2023 Improving left lower lobe atelectasis. Endotracheal tube in the midthoracic trachea. Apparent kink of the proximal portion of the subclavian catheter which is likely projectional. [id number] XR CHEST PORTABLE 1 VIEW Result Date: 06/15/2023 1. Endotracheal tube tip terminates at the origin of the proximal right mainstem bronchus, recommend retracting a 3-4 centimeters. There appears to be consolidation or atelectasis of the left lower lobe. 2. Right-sided CVC appropriately positioned, tip at the superior cavoatrial junction. I have per sonally reviewed the images and the above interpretation and agree with the findings. [id number] XR FEEDING TUBE PLACEMENT Result Date: 06/15/2023 Findings/Impression: Portable AP view centered over the lower chest upper abdomen demonstrates thatthe gastroesophageal catheter tip projects over the body of the. The visualized bowel gas pattern is normal. There is left lower lobe lung opacity concerning for pneumonia. This is neither a completeview of the chest nor of the abdomen. If either view is needed, formal films are recommended. [id number] Labs: CBC: Recent Labs 06/20/23 0501 06/21/23 0507 06/22/23 0604 WBC 19.47* 15.50* 14.26* RBC 3.23* 3.08* 3.14* HGB 9.5* 9.4* 9.1* HCT 28.8* 27.7* 28.1* MCV 89 90 90 MCH 29.4 30.5 29.0 MCHC 33.0 33.9 32.4 PLT 455* 475* 483* NEUTROABS 17.43* 12.91* 11.94* BMP: Recent Labs 06/20/23 0501 06/21/23 0507 06/22/23 0604 NA 139 139 136 K 5.3* 5.2* 4.8 CL 108 106 102 CO2 23 24 25 BUN 27* 20 15 CREATININE 0.54 0.32* 0.38* CALCIUM 8.2* 8.4* 8.5 MG 2.1 2.1 1.8 PHOS 3.5 2.5 2.8 Cardiac Markers: Recent Labs 06/22/23 0804 TROPONINI 0.348* Assessment: Della Browning is a 52 y.o. Female with HTN, Diet controlled T2DM here as transfer from [facility] after debridement x3 admitted for NSTI of right gluteal region. SICU team consulted for mechanical ventilation. Patient with likely bradycardic arrest 06/13 with ROSC after 2 rounds of CPR and 1mg epi, noted transient high degree AV block prior to bradycardic arrest. Second cardiac arrest secondary to complete heart block on 06/15 with transvenous pacing initiated at that time. Weaning HFNC tonasal cannula but intermittently using CPAP for work of breathing. Plan: Neuro: Concern arose on 06/19 for possible Wernicke's Encephalopathy based on persistent horizontal nystagmus (some nystagmus was seen on 06/16 but this was shortly after the patient's ketamine was discontinued Pain: Multimodal pain control with Acetaminophen 1000 mg Q6H, PO dilaudid 2-4mg Q3H, robaxin 750 QID Anxiety/agitation: Ativan 1mg Q4H Possible Wernicke's encephalopathy: Thiamine regimen: 500 mg IV TID for 2 days starting 06/19 followed by 500 mg IV QD for 5 days starting 06/21 followed by 100 mg PO QD starting 06/26 until symptom resolution, then intermittent replacement as indicated CV: Complete heart block s/p 2 arrests during this admission with ROSC both times No pacing needed since 06/16 TTE 06/18 normal Appreciate EP cardiology consult Cordis to be removed on 06/21 Cardiac monitoring via cuff Goal SBP >90 and MAP 65 Keep right subclavian central line Amlodipine 10mg daily Hydralazine 5mg prn for SBP over 180 Clonidine patch added 06/19, increased to 0.3 Pulm: Aggressive IS and pulmonary toilet Continue VPEP/clearance Wean nasal cannula as able FEN/GI: David replaced after it was dislodged by the patient Resumed diet after David replaced Check lytes q24h and replenish PRN Initiated thiamine and folate repletion Given significant mental status improvement, resumed consistent carb diet in addition to tube feeds Renal: Trend BUN/Cr, watch UOP Keep Vuong. Heme: Check CBCs daily Lovenox DVT ppx ID: [facility] cultures with 1/4 bottles growing gram positive cocci in anaerobic bottle likely contaminant Trend WBC and fever curve Abx Meropenem for 2 weeks (06/13 - 06/19), DC Blood cultures 06/15 NGTD Endo: POC glucose checks q6 On SSI aspart, persistently high BG 16 Lantus insulin gtt at 2U/hr started on 06/20, discontinued MSK: Engage PT when able, fine to get up to chair Skin: Pressure ulcer prevention per SICU bundle including monitoring for device- related injuries (which include ETT, OGT, Vuong, A-line board) Wound care per primary team (ACS) Right buttock wound, plan for wound vac placement today Tubes/Lines: Plan to remove cordis 06/21 Ppx: SCDs Lovenox chemoppx Code status: Full Code GOC: A lengthy GOC conversation occurred on 06/19, please see notes at that time by Ángel Bustamante MD and Vicente Longoria NP. Plan to repeat as patient clears Daily ICU Checklist Prophylaxis: DVT Prophylaxis: Enoxaparin GI Prophylaxis: Yes Skin Integrity Risk Factors: Yes Pressure Ulcer / Breakdown Present?: No Wound Care Consult Indicated?: No Air Mattress Indicated?: Yes CAM-ICU: Negative Ventilation/Sedation: Goal RASS: 0 Is there anticipated need of a chest x-ray the next morning of ICU stay?: No Procalcitonin: Currently Following Procalcitonin: No Early Mobility: Activity Order: Activity as tolerated Does The Patient Meet Physiological Criteria For PT Referral: Yes Is The Patient Awake And Able To Participate In Therapy: PT already involved Fluids/Nutrition: Daily Fluid Goal: Even Tube Feedings: Yes Last Bowel Movement: 06/22/23 Lines: Vascular Access Assessment: Central access indicated Urinary (Vuong) Catheter Assessment: Vuong catheter indicated Communication: Updates: Family updated today Interdisciplinary Items: Patient Eligible For Transfer: Yes Daily Goals: aggressive IS, pain control, consider PICC Ángel Bustamante MD 06/22/23 10:00 Emergency Medicine Resident, PGY1 SICU House Staff #[phone] (Service Pager) Attestation: I performed or was present during the cooper or critical portions of the visit and participated in the management of the patient on 06/22/2023. I agree with the findings and plan of care documented in the resident's/fellow's note.Looks much better today, eating breakfast, on RACarey at bedside. Will d/c insulin gtt, increase lantus dose, increase clonidine dose, d/c the cordis. Will transfer care to primary service, ACS. Moo Monique MD 06/22/2023 11:56 * Shelly Yancey, RT - 06/22/2023 0453 EDT Respiratory Progress Note Indications for Respiratory therapy: Respiratory Distress Data Vitals: Heart Rate: 93 BPM, Resp: 21, SpO2: 98 % FIO2/O2 Device: O2 Flow Rate (L/min): 3 l/min, , O2 Device: Nasal cannula, FIO2 %: 40 % RT Orders: HFNC PRN Q4 Duo Q4 Airway clearance: EZ PAP Q4 Airway clearance: cough assist/vpep Action/Events Q4 Duo started overnight for SOB Q4 airway clearance x2 done during shift. FIO2 leaned from 5L to 3L NC Response/Results Continue to monitor and assess RT MITZI 06/22/23 * Antonio Vasquez RT - 06/21/2023 1544 EDT Respiratory Progress Note Indications for Respiratory therapy: Respiratory Distress Data Vitals: Heart Rate: 86 BPM, Resp: 19, SpO2: 97 % FIO2/O2 Device: O2 Flow Rate (L/min): 5 l/min, , O2 Device: (S) Nasal cannula, FIO2 %: 40 % RT Orders: HFNC PRN Q4 ACT: VPEP / EZ-PAP Cough Assist: 3 x 3 CPAP PRN Action/Events Respiratory events; 09:55: 5L NC, saturations 96%, BS fine crackles. EZ-PAP x 30, Cough Assist 3x3 with fair effort. 12:45: 5L NC, saturations 98%. Cough Assist 3 x 3, refused EZ-PAP. Loose cough, swallowed. 15:43: 5L NC, patient sleeping, saturations 97%. Response/Results Weaning and Toleration of treatments; Continue with orders RT MAYI 06/21/23 * Brittani Heredia - 06/21/2023 1442 EDT Palliative Care Social Work Initial Assessment Date: 06/21/23 Time: 14:42 Patient: Della Browning Primary Care Provider: UNKNOWN,PROVIDER Team Members Present at Encounter: myself-Palliative Care SW Reason for consult: Psychosocial support Details gathered from: Carey (patient's significant other). Holden was asleep and minimally interactiveduring my visit. Advanced Care Planning Documents: None Health Care Agent (HCA) Name and Number: none Alternate HCA Name and Number: none Details for Advance Directive: none Details for COLST: none Additional details: DNR, trial intubation ok for OR Social History Origin/Family System: Carey shared that he does not know much about Holden's parents or siblings. He knows that she has some siblings that are alive but they are not in each other's life. Learning or developmental disabilities: Unclear, will need to assess further Community/Support System: Holden's support system is Carey & her niece Leander. Carey shared that Della has two adult children who are estranged from her. Work/Interests: Carey shared that Della enjoys being out in nature, she enjoys fishing but has not been able to do that in the past couple of years. Sources of Strength/Meaning: Finds meaning in being to spend time with her loved ones and doing things outdoors which she has not been able to do in quite some time. Spiritual/Catholic Considerations (FICA assessment): see stock cutter's notes Living Arrangements/Care Needs: Della lives in an apartment with her significant other Carey. Whitney requires assistance with ADL's and IADL's for quite some time and Carey has purchased equipment for home and made arrangements and changes to the apartment to assist her with her mobility care. Emotional state (including assessment of distress, anxiety and depression): no noted distress in Della. Carey shared that he was doing ok, he is hopeful in her recovery and he recognizes it will take some time but that he feels she is more awake today and hopes this is a good sign. He wants to remain hopeful so he can get through this difficult time. Previous experiences of loss, , grief: unknown for Della. As per Carey, he took care of his mother and father during their end of life and feels equipped with some knowledge in how to provide caregiving at home. Risk of prolonged grief disorder: Not clear, unknown Additional risk assessment: Risk of, history, or current substance use disorder: None Risk or history of attempted suicide or self harm: None Current or previous trauma and/or evidence of post-traumatic stress disorder (PTSD): Additional assessment needed Pre-existing psychological/psychiatric diagnosis: Needs further assessment unknown Additional social factors that could impact care and care planning: Della will require ongoing care for ADL's and IADL's as she recovers. Carey shared that he feels equipped to care for her at homebut worries and feels guilty that the state of the home perhaps will impede her healing. He was nottoo open to share what he meant by this but I will continue to explore this with him. Regardless, Della will need skilled care moving forward if her family opts for a full restorative path. Medical Understanding and Future Planning Understanding of illness: At this time Della is not interactive, her primary team shared that she is more awake and alert today but still quite confused. Carey shares that he has some understandingof her medical condition but is choosing to remain hopeful for her recovery. Patient Values/Preferences/Goals: Della values being home with her loved ones, she would not like to be in a hospital or usp. A restorative path forward would require some time in a facility which is not aligned with her goals. We will continue to explore this with Della and her family, we are hoping Della will be able to participate in some of these conversations pending clinical progress. Needs/barriers to achieve stated goals: Della's recovery is likely to require longterm care in a facility which is not aligned with her goals to remain at home. We will continue to explore this with her and her family. Recommendations and Follow up Plan Palliative care team to follow Trina Heredia, NITRILES LAB TECHNICIAN, HOME HEALTH AIDE Palliative Care Advertising Supervisor Epic Chat Only' * Tai Azar MD - 06/21/2023 1201 EDT Images from the original note were not included. Surgery Progress Note Service Date: 06/21/2023 Admit Date: 06/13/2023 23:23 Procedure: Nec fasc debridement x2 (OSH) Serial debridement, repair rectal injury (06/14) Additional debridement, washout (06/16) Additional debridement, washout, partial closure (06/18) Chief Complaint: NSTI 24 Hour Events: NAEO Subjective More alert this morning. Denies pain. No nausea or vomiting. On high flow, not very conversant. Objective Vital Signs Temp: [36.1 ??C (97 ??F)-36.5 ??C (97.7 ??F)] , Heart Rate: [75 BPM-95 BPM] , Pulse: --, Pulse FromOximetry: [75 BPM-95 BPM] , Resp: [12-32] , BP: (107-174)/(58-100) , SpO2: [90 %-99 %] Physical Exam General Appearance: calm, in no distress Neuro: alert, disoriented, moving all four limbs symmetrically Lung: loud rhonchi bilaterally Heart: regular rate and rhythm Abdomen: soft, nontender, rectal tube in place Extremities: Warm and well perfused, mild edema Wound: R gluteal wound dressing clean/dry/intact. Dressing change performed, wound as pictured below Labs: CBC: Recent Labs 06/19/23 0504 06/20/23 0501 06/21/23 0507 WBC 25.80* 19.47* 15.50* RBC 3.49* 3.23* 3.08* HGB 10.5* 9.5* 9.4* HCT 31.0* 28.8* 27.7* MCV 89 89 90 MCH 30.1 29.4 30.5 MCHC 33.9 33.0 33.9 PLT 521* 455* 475* NEUTROABS 22.47* 17.43* 12.91* BMP: Recent Labs 06/19/23 0503 06/19/23 1228 06/20/23 0501 06/21/23 0507 NA 136 137 139 139 K 5.6* 4.9 5.3* 5.2* CL 107 107 108 106 CO2 20* 18* 23 24 BUN 31* 27* 27* 20 CREATININE 0.52 0.45* 0.54 0.32* CALCIUM 8.4* 8.3* 8.2* 8.4* MG 2.1 -- 2.1 2.1 PHOS 4.8* -- 3.5 2.5 Micro: 06/13 OR cultures: mixed GP and GN organisms, no speciation available 06/15 blood cx: pending Imaging: (Please refer to the chart for the full radiology reports including all of the findings and impressions.) XR CHEST PORTABLE LINE PLACEMENT Result Date: 06/17/2023 Slight retraction of pacemaker lead tip, now projecting just beyond tricuspid valve within the right ventricle. ET tube and NG tube as seen previously. Dense left lower lobe atelectasis and probable subsegmental atelectasis at the right lung base. Assessment 52 y.o. female with a history of HTN and T2DM who presented as a transfer from [facility] on 06/12 with necrotizing fasciitis. S/p debridement x2 at OSH and s/p debridement at [facility] on 06/14.Post-operative bradycardic arrest with ROSC after 2 rounds CPP (cardiology suspect 2/2 third degreeHB from manipulation of ETT). Coded a second time following extubation while she was on dexmedetomid ine. Has transvenous pacing wires in place now. Ongoing serial debridements with hope for partial closure and wound vac placement today Plan -Appreciate SICU care -Wound vac placement by ACS today, anticipate to wall suction to maintain seal TAI AZAR MD 06/21/2023 12:01 PGY3 ACS pager #[phone] Associated attestation - Efraín Rueda MD - 06/21/2023 1520 EDT Attending attestation statement: I saw and examined the patient and agree with the findings and plans as documented. Dressing changed without need for repeat I&D at present. Will attempt W[place] placement today. WBC downtrending to 15k. Darien Rueda MD Acute Care Surgery Pager #[phone] * Dayan Ulloa RD - 06/21/2023 0905 EDT Nutrition Assessment Note: Reassessment BACKGROUND DATA Subjective: Pt sleeping at time of visit. Per RN she ate 1/2 banana for breakfast and declined lunch. Plan is to order soup and sandwich for dinner. She is tolerating TF. Mentation improving but not at baseline yet. Current Nutrition Orders: Diet: Consistent Carbohydrate Diet -- Boost Glucose Control TID TF Rx: Promote at 50 mL/hr continuous - Provides 1200 calories, 75 g protein, 1006 mL free water daily - EFW: 60 mL Q4H Delegate Diet ordering to RD Nutrition Focused Physical Exam Subcutaneous Fat Assessment Orbital Region: Well-nourished (06/14/23 1520) Cheek Region: Well-nourished (06/14/23 1520) Upper Arm Region: Well-nourished (06/14/23 1520) Midaxillary Line: Not assessed (06/14/23 1520) Muscle Mass Assessment Congregation Region: Well-nourished (06/14/23 1520) Clavicle Region: Well-nourished (06/14/23 1520) Shoulder/Acromion/Clavicle Region: Well-nourished (06/14/23 1520) Scapula Region: Not assessed (06/14/23 1520) Hand Region: Not assessed (06/14/23 1520) Thigh/Patellar Region: Not assessed (06/14/23 1520) Calf Region: Not assessed (06/14/23 152) NFPE Assessment Summary of Fat Wasting: No significant evidence of wasting (06/14/23 152) Summary of Muscle Wasting: No significant evidence of wasting (06/14/231519) Physical Findings: Pulmonary: HFNC Digestive Systems: Last BM 06/19 Dentition: Teeth: Dentures upper, Dentures lower per flowsheets Edema: +1 generalized, BUE, BLE Skin: excoriation, lacerations/incisions Allergies on file: Aspirin, Cymbalta [duloxetine], Lyrica [pregabalin], and Penicillins Anthropometrics: Height: 160 cm (63) Weights Filed This Admission 06/14/23 0000 06/19/23 0900 Weight: 86.2 kg (190 lb) 86.2 kg (190 lb) Body mass index is 33.66 kg/m??. Weight Change: stable Pertinent Medications: Current Facility-Administered Medications Medication Route Frequency acetaminophen (TYLENOL) tablet 1,000 mg oral Q6H alteplase (CATHFLO ACTIVASE) injection 2 mg intercatheter PRN amLODIPine (NORVASC) tablet 10 mg oral DAILY ascorbic acid (vitamin C) (VITAMIN C) tablet 500 mg oral BID atropine 0.1 mg/mL syringe atropine 0.1 mg/mL syringe cholecalciferol (VITAMIN D3) oral drops 1,000 Units per ng tube DAILY cloNIDine (CATAPRES) 0.1 mg/24 hr patch 1 Patch transdermal WEEKLY dextrose 50 % solution 12.5 g intravenous PRN enoxaparin (LOVENOX) injection 40 mg subcutaneous DAILY folic acid 1 mg in sodium chloride (NS) 0.9 % 50 mL IVPB intravenous DAILY Free Water (bolus dose) 60 mL per g tube Q4H glucagon injection 1 mg intramuscular PRN hydrALAZINE (APRESOLINE) injection 10 mg intravenous Q4H PRN HYDROmorphone (DILAUDID) tablet 2-4 mg oral Q3H PRN HYDROmorphone (PF) (DILAUDID) 0.5 mg/0.5 mL syringe 0.25-0.5 mg intravenous Q2H PRN insulin aspart U-100 (NOVOLOG FLEXPEN) injection 0-20 Units subcutaneous Q6H insulin glargine injection pen 10 Units subcutaneous DAILY L.A. INSULIN lidocaine 5 % (LIDODERM) patch 2 Patch transdermal DAILY LORazepam (ATIVAN) tablet 1 mg oral Q4H PRN methocarbamoL (ROBAXIN) tablet 750 mg oral QID Multivitamins with minerals + ferrous gluconate (CENTRUM) oral solution 15 mL feeding tube DAILY naloxone (NARCAN) injection 0.1 mg intravenous PRN papain-alpha amylase-cellulase (CLOG ZAPPER) 2-5 mL feeding tube PRN polyethylene glycol 3350 (MIRALAX) packet 17 g per ng tube DAILY promote per g tube CONTINUOUS senna (SENOKOT) tablet 2 Tablet oral QHS Sodium chloride - hypochlorus acid 0.033% solution (aka Vashe) (VASHE) 0.033 % external solution topical BID sodium hypochlorite (DAKINS) 0.25 % external solution topical BID thiamine (VITAMIN B-1) 500 mg in sodium chloride (NS) 0.9 % 50 mL IVPB intravenous Q8H Followed by [START ON 06/22/2023] thiamine (VITAMIN B-1) 500 mg in sodium chloride (NS) 0.9 % 50 mL IVPB intravenous DAILY Followed by [START ON 06/27/2023] thiamine (VITAMIN B1) tablet 100 mg oral DAILY zinc sulfate (ZINCATE) capsule 220 mg oral DAILY Pertinent Labs: Lab Results Component Value Date/Time NA 139 06/21/2023 05:07 K 5.2 (H) 06/21/2023 05:07 CO2 24 06/21/2023 05:07 CL 106 06/21/2023 05:07 BUN 20 06/21/2023 05:07 CREATININE 0.32 (L) 06/21/2023 05:07 GLUCOSEPOC 163 (H) 06/21/2023 05:09 CALCIUM 8.4 (L) 06/21/2023 05:07 PHOS 2.5 06/21/2023 05:07 MG 2.1 06/21/2023 05:07 Lab Results Component Value Date/Time HGBA1C 8.2 (H) 06/14/2023 04:55 GLUCOSEPOC 163 (H) 06/21/2023 05:09 GLUCOSEPOC 198 (H) 06/20/2023 23:55 GLUCOSEPOC 214 (H) 06/20/2023 18:51 GLUCOSEPOC 185 (H) 06/20/2023 12:23 GLUCOSEPOC 208 (H) 06/20/2023 05:00 Estimated Nutrition Needs: MSJ x1.0-1.2 (using 86.2 kg) = 2742-1677 kcals/day 1.5 g/kg protein (using 65.9 kg adj wgt) - 2.0 g/kg protein (using 52.4 kg IBW) = 99-105 g protein/day Estimated Nutrition Intake: No recent meal documentation TF restarted this morning, rates ranging from 0-60 mL/hr 06/18- ASSESSMENT: Pt on diet but not eating much - hopeful this will improve as mentation improves. She self removed NGT yesterday morning, but it was replaced later in the afternoon. TF currently running at 50mL/hr with goal of 70 mL/hr. Tolerating without issue per RN. Continue to advance feeds until goal rate reached. Recs provided below if wanting to switch to nocturnal TF. Overnight feeds will help stimulate appetite during the day and allow for increased PO intake. Nutrition Risk Level: High (1) MEDICAL NUTRITION THERAPY - UPDATED PLAN Oral Nutrition: - Consistent Carbohydrate Diet - Boost Glucose Control with meals Enteral Nutrition - Continuous - Continue to advance to goal (70 mL/hr) - Goal TF provides 1680 calories, 105 g protein, 218 g carbohydrate, and 1394 mL water daily Enteral Nutrition - Nocturnal - Option to switch to nocturnal TF to allow for PO intake during the day - Promote at 106 mL/hr x16 hours overnight - Goal TF would provide 1696 calories, 106 g protein, 220 g carbohydrate, and 1423 mL water daily DAYAN ULLOA RD, CD (Call PAS or use [employer] ([employer]) to page RD covering this unit) * Moo Monique MD - 06/21/2023 0621 EDT SICU Daily Progress Note Admit Date: 06/13/2023 Primary team: MAIRA CC: NSTI Right Gluteal region Procedures: Soft tissue Debridement RLE gluteal region at OSH Debridement of right buttock, primary repair of rectal injury, 06/13 RTOR for further debridement 06/16 24hr Events: Palliative - DNR/DNI but continue tx path and ok for intubation in the OR Thiamine for concern for wernicke's Clonidine started Nicole stopped DAVID replaced - Tube feeds restarted and held at midnight for possible OR Amlodipine increased to 10 mg Pacer wires removed - labetalol stopped and hydral added Subjective: Patient reports that overall she is doing ok. She endorses some pain in her right buttock and mild pain in her chest. She states that she is unsure why she is here, but at one point told a resident that it was for my wound. Denies SOB. Objective: Temp: [36.1 ??C (97 ??F)-36.7 ??C (98 ??F)] , Heart Rate: [75 BPM-96 BPM] , Resp: [12-32] , BP: (107-186)/(58-100) , SpO2: [90 %-98 %] I/O: Current Shift: No intake/output data recorded. 24 hours: 06/19 0700 - 06/20 0659 In: 993 [P.O.:120] Out: 2510 [Urine:2510] Tubes:VUONG, rectal tube Lines: Right Subclavian CVC with pacing wire Infusions/Rates: --- Physical Exam: Gen: Awake, opens eyes spontaneously, no acute distress HEENT: No nystagmus Resp: borderline tachypneic with normal respiratory effort on high flow nasal cannula CV: normal sinus on telemetry Abd: Protuberant, non tender, non distended : Vuong in place draining clear yellow urine Ext: WWP Neuro: Opens eyes spontaneously, hard of hearing, alert. Oriented to self, month/year, and that sheis in [place] but [place] 4/5 strength in the LUE, 5/5 strength in the RUE. 5/5 strength in the RLE. 4/5 strength in the LLE. Skin/Wound: Large right-sided buttock wound that extends into the gluteal crease. No surrounding erythema or purulent drainage. Dressing CDI Micro: Moderate gram positive and gram negative organisms from surgical cultures TTE 06/19/23 Left Ventricle The left ventricular cavity was [...] The right atrium was normal in size. Aortic Valve The aortic valve structure was trileaflet. The aortic leaflets were mildly thickened. There was no aortic valve stenosis. There was no aortic valve regurgitation. AV Peak Velocity: 1.5 m/s. AV Mean Gradient: 5 mmHg. AV Area VTI: 2.7 cm2. Mitral Valve Mitral valve structure was normal. There was no significant mitral valve stenosis or regurgitation. Tricuspid Valve Tricuspid valve structure was normal. There was no significant tricuspid valve regurgitation. There was no tricuspid valve stenosis. Pulmonic Valve The pulmonic valve was not well visualized. There was no significant pulmonic valve regurgitation. There was no pulmonic valve stenosis. Pulmonic Artery Unable to assess PA pressure. Ascending Aorta The aorta was normal in size. Pericardium There was no pericardial effusion. IVC/SVC The inferior vena cava was normal in size. The inferior vena cava demonstrated a diameter of <=21 mm and collapses >50%; therefore, the right atrial pressure is estimated at 0-5 mmHg. New Imaging (w/in 24h): XR CHEST PORTABLE 1 VIEW Result Date: 06/20/2023 Findings of improving left lower lobe atelectasis and persistent interstitial pulmonary edema. [id number] XR FEEDING TUBE PLACEMENT Result Date: 06/20/2023 Findings/Impression: Portable AP view centered over the lower chest upper abdomen demonstrates thatthe feeding tube tip projects over the 2nd-3rd portion of the duodenum. This is neither a complete view of the chest nor of the abdomen. If either view is needed, formal films are recommended. [id number] XR FEEDING TUBE PLACEMENT Result Date: 06/18/2023 Findings/Impression: Portable AP view centered over the lower chest upper abdomen demonstrates thatthe feeding tube tip projects over the gastric antrum. Nonobstructive bowel gas pattern. Suspected left pleural effusion with adjacent atelectasis, as evaluated on same-day chest radiograph. This is neither a complete view of the chest nor of the abdomen. If either view is needed, formal films are recommended. I have personally reviewed the images and the above interpretation and agree with the findings. [id number] XR CHEST PORTABLE LINE PLACEMENT Result Date: 06/18/2023 Right internal jugular temporary pacemaker wire lead in right ventricle. Dense left lower lobe atelectasis. Probable bilateral pleural effusions. [id number] CT CHEST WO CONTRAST Result Date: 06/18/2023 1. Appropriate positioning of the right internal jugular approach central venous sheath containing transvenous pacing wire. 2. Bibasilar consolidations, left greater than right. This most likely reflects atelectasis given volume loss. Evaluation for concurrent pneumonia is limited due to lack of contrast. 3. Small bilateral pleural effusions, left greater than right. 4. Scattered groundglass opacities, predominantly along the mediastinum, may represent small contusions due to resuscitation efforts. 5. Acute nondisplaced sternal body fracture and multiple bilateral acute nondisplaced to minimally displaced rib fractures, also related to resuscitation efforts. 6. Asymmetric skin thickening and left breast edema. Correlate with physical exam. Follow-up with breast care imaging center is recommended if these findings are not felt to be acute. I have personally reviewed the images and the above interpretation and agree with the findings. [id number] XR CHEST PORTABLE 1 VIEW Result Date: 06/18/2023 Interval extubation and removal of NG tube. Transvenous pacemaker wire tip in right ventricular apex. Interval development of left lower lobe atelectasis. Probable developing right lower lobe atelectasis. [id number] XR CHEST PORTABLE LINE PLACEMENT Result Date: 06/17/2023 Slight retraction of pacemaker lead tip, now projecting just beyond tricuspid valve within the right ventricle. ET tube and NG tube as seen previously. Dense left lower lobe atelectasis and probable subsegmental atelectasis at the right lung base. [id number] XR CHEST PORTABLE LINE PLACEMENT Result Date: 06/16/2023 Lines and tubes as described. Improving left lower lobe atelectasis. [id number] XR CHEST PORTABLE LINE PLACEMENT Result Date: 06/16/2023 Improving left lower lobe atelectasis. Endotracheal tube in the midthoracic trachea. Apparent kink of the proximal portion of the subclavian catheter which is likely projectional. [id number] XR CHEST PORTABLE 1 VIEW Result Date: 06/15/2023 1. Endotracheal tube tip terminates at the origin of the proximal right mainstem bronchus, recommend retracting a 3-4 centimeters. There appears to be consolidation or atelectasis of the left lower lobe. 2. Right-sided CVC appropriately positioned, tip at the superior cavoatrial junction. I have per sonally reviewed the images and the above interpretation and agree with the findings. [id number] XR FEEDING TUBE PLACEMENT Result Date: 06/15/2023 Findings/Impression: Portable AP view centered over the lower chest upper abdomen demonstrates thatthe gastroesophageal catheter tip projects over the body of the. The visualized bowel gas pattern is normal. There is left lower lobe lung opacity concerning for pneumonia. This is neither a completeview of the chest nor of the abdomen. If either view is needed, formal films are recommended. [id number] Labs: CBC: Recent Labs 06/19/23 0504 06/20/23 0501 06/21/23 0507 WBC 25.80* 19.47* 15.50* RBC 3.49* 3.23* 3.08* HGB 10.5* 9.5* 9.4* HCT 31.0* 28.8* 27.7* MCV 89 89 90 MCH 30.1 29.4 30.5 MCHC 33.9 33.0 33.9 PLT 521* 455* 475* NEUTROABS 22.47* 17.43* 12.91* BMP: Recent Labs 06/19/23 0503 06/19/23 1228 06/20/23 0501 06/21/23 0507 NA 136 137 139 139 K 5.6* 4.9 5.3* 5.2* CL 107 107 108 106 CO2 20* 18* 23 24 BUN 31* 27* 27* 20 CREATININE 0.52 0.45* 0.54 0.32* CALCIUM 8.4* 8.3* 8.2* 8.4* MG 2.1 -- 2.1 2.1 PHOS 4.8* -- 3.5 2.5 Cardiac Markers: No results for input(s): CK, MB, CKMBINDEX, TROPONINI in the last 72 hours. Assessment: Della Browning is a 52 y.o. Female with HTN, Diet controlled T2DM here as transfer from [facility] after debridement x3 admitted for NSTI of right gluteal region. SICU team consulted for mechanical ventilation. Patient with likely bradycardic arrest 06/13 with ROSC after 2 rounds of CPR and 1mg epi, noted transient high degree AV block prior to bradycardic arrest. Second cardiac arrest secondary to complete heart block on 06/15 with transvenous pacing initiated at that time. Weaning HFNC tonasal cannula but intermittently using CPAP for work of breathing. Plan: Neuro: Concern arose on 06/19 for possible Wernicke's Encephalopathy based on persistent horizontal nystagmus (some nystagmus was seen on 06/16 but this was shortly after the patient's ketamine was discontinued Pain: Multimodal pain control with Acetaminophen 1000 mg Q6H, PO dilaudid 2-4mg Q3H, robaxin 750 QID Anxiety/agitation: Ativan 1mg Q4H Possible Wernicke's encephalopathy: Thiamine regimen: 500 mg IV TID for 2 days starting 06/19 followed by 500 mg IV QD for 5 days starting 06/21 followed by 100 mg PO QD starting 06/26 until symptom resolution, then intermittent replacement as indicated CV: Complete heart block s/p 2 arrests during this admission with ROSC both times No pacing needed since 06/16 TTE 06/18 normal Pacing wires removed now that Appreciate EP cardiology consult Cardiac monitoring via cuff Goal SBP >90 and MAP 65 Keep right subclavian central line with pacing wire Amlodipine 10mg daily Hydralazine 5mg prn for SBP over 180 Clonidine patch added 06/19 Pulm: Aggressive IS and pulmonary toilet Continue VPEP/clearance Continue nasal cannula as able, HFNC when needed for increased WOB FEN/GI: Potassium 5.3 this morning, hyperkalemia interventions provided on 06/18 but holding on 06/19 David replaced after it was dislodged by the patient Resumed diet after David replaced Check lytes q24h and replenish PRN Initiated thiamine and folate repletion Given significant mental status improvement, resumed consistent carb diet in addition to tube feeds Renal: Trend BUN/Cr, watch UOP Keep Vuong. Heme: Check CBCs daily Lovenox DVT ppx ID: [facility] cultures with 1/4 bottles growing gram positive cocci in anaerobic bottle likely contaminant Trend WBC and fever curve Abx Meropenem for 2 weeks (06/13 - 06/19), DC Blood cultures 06/15 NGTD Endo: POC glucose checks q6 Off Insulin gtt, on SSI aspart, persistently high BG Adding 10 Lantus MSK: Engage PT when able, fine to get up to chair Skin: Pressure ulcer prevention per SICU bundle including monitoring for device- related injuries (which include ETT, OGT, Vuong, A-line board) Wound care per primary team (ACS) Right buttock wound, plan for wound vac placement today Tubes/Lines: Plan to keep current lines Ppx: SCDs Lovenox chemoppx Code status: Full Code GOC: A lengthy GOC conversation occurred on 06/19, please see notes at that time by Ángel Bustamante MD and Vicente Longoria NP. Daily ICU Checklist Prophylaxis: DVT Prophylaxis: Enoxaparin;SCDs GI Prophylaxis: Not indicated Skin Integrity Risk Factors: Yes Pressure Ulcer / Breakdown Present?: No Wound Care Consult Indicated?: No Air Mattress Indicated?: Yes CAM-ICU: Positive Ventilation/Sedation: Goal RASS: 0 Daily Awakening Performed: Not indicated Is there anticipated need of a chest x-ray the next morning of ICU stay?: No Procalcitonin: Currently Following Procalcitonin: No Early Mobility: Activity Order: Activity as tolerated Does The Patient Meet Physiological Criteria For PT Referral: Yes Is The Patient Awake And Able To Participate In Therapy: PT already involved Fluids/Nutrition: Daily Fluid Goal: Even Tube Feedings: Yes Last Bowel Movement: 06/21/23 Lines: Vascular Access Assessment: Central access indicated Urinary (Vuong) Catheter Assessment: Vuong catheter indicated Communication: Updates: Family updated today Interdisciplinary Items: Patient Eligible For Transfer: No Daily Goals: Plan for wound vac, pain control, PT/OT Ángel Bustamante MD 06/21/23 8:53 Emergency Medicine Resident, PGY1 SICU House Staff #[phone] (Service Pager) Attestation: I performed or was present during the cooper or critical portions of the visit and participated in the management of the patient on 06/21/2023. I agree with the findings and plan of care documented in the resident's/fellow's note.Remains off vent, on 35% FiO2 high flow NC this am, more alert and awake, conversant today. BP is better controlled, pacing wire is out. Will increase TF's to goal, wean off high flow, abx's off for now. DELIO Lezama, at bedside, updated on pt's condition and planfor today. Critical care time: 15 mins Moo Monique MD 06/21/2023 14:50 * KeyannaZoe qureshiena - 06/21/2023 0424 EDT Respiratory Progress Note Indications for Respiratory therapy: WOB, respiratory distress Data Vitals: Heart Rate: 91 BPM, Resp: (!) 32, SpO2: 93 % FIO2/O2 Device: O2 Flow Rate (L/min): 30 l/min, , O2 Device: High flow nasal cannula, FIO2 %: 35 % RT Orders: HFNC Continuous Q4 AWC vpep or cough assist CPAP PRN Action/Events Patient remained on HFNC overnight with low settings. Ezpap with mask completed Q4 overnight. Patient has a weak and coarse cough. Attempted cough assist and vpep with her but she was unable to coordinate breaths with vpep or produce cough with CA. She is intermittently confused and pulling on cannula. WIll continue to monitor and assess for sxn/AWC. MARY CHO 06/21/23 * Antonai Rodriguez RN - 06/20/2023 1439 EDT Cortrack Feeding Tube Placement Procedure Note Title of Procedure: Cortrack Feeding Tube Placement Date Performed: 06/20/2023 Time Performed: 1330 Performed by: Mary Rodriguez RN Indications and/or Provisional Diagnosis: Condition: The condition of the patient was Serious Consent: The patient/surrogate has consented after being informed of the risks, benefits and alternatives Ordered By: SICU Time Out: A time-out was completed prior to procedure verifying correct patient, procedure, site, positioning, and special equipment if applicable. Type of Anesthesia or Sedation: Phenylephrine-lidocaine 0.25%-3% topical solution Procedure Technique/Description: Performed tube placement using the Cortrak EAS system2 X-Ray Confirmation: Yes Final Tube Position: duodenum Exposed Catheter Length (cm): 75 Complications: None ANTONIA RODRIGUEZ RN 06/20/2023 14:40 * Ángel Bustamante MD - 06/20/2023 1428 EDT GOALS OF CARE DISCUSSION 06/20/2023 Residents: Ángel Bustamante MD and Eloisa Brito MD Palliative Care: Vicente Longoria NP Is/It Project Manager: John Vallejo Nurse: Red Norton RN Significant other: Carey Gonzalezlizett Niece: Leander Meeting: A goals of care discussion occurred on 06/20/2023 between the above team members and Holden's significant other, Carey, and her niece, Leander. Unfortunately, at the time of the meeting, Holden did not have capacity to participate in the meeting as she was still only intermittently oriented to self and year, but not location, and not able to provide comprehensive answers or a read back of information. Of note, over the past 2 days Holden has had brief periods of increased interactiveness and has stated to the medical team and Carey and Leander that she is done with all of this and expressed that she would like to . Unfortunately, during the same time period, she has also had episodes of increased interactiveness in which she told the team that she did actually want all of the care that is possible. Atthis time, we suspect that Holden's waxing and waning mental status is a combination of sequela of hersevere disease process, potentially Warnicke's encephalopathy/withdrawal from alcohol, and the strong pain medicine and anxiolysis she has required to keep her comfortable. CODE STATUS: DNR/DNI EXCEPT FOR INTUBATIONS IN THE OPERATING ROOM. An extensive conversation with Leander and Carey about the 2 episodes of brief cardiac arrest that Holden suffered, and the subsequent rib fractures and sternal fracture that she sustained during the chest compressions. They expressed concern that if she were to suffer another cardiac arrest and require chest compressions, she would likely be in a worse state than her current state. We agree that this is a likely possibility, and that any future cardiac arrests and/or CPR will likely prolong her overall recovery course. They believe her current state is potentially not compatible with her previouslystated wishes, and feel confident that she would not want to be in an even more debilitated state. Leander and Carey feel strongly that if her heart were to stop beating she would not want chest compressions and if her respiratory status was to diminish to the point where she needed intubation for airway protection, that she would not want intubation. However, they think she would be amenable to intubation during her trips to the operating room for procedural sedation. In the event that she is unable to be extubated after returning from surgery, Leander and Carey would like to be reengaged to discussthe further possible outcomes from there. HOLDEN'S PREVIOUSLY STATED WISHES: AVOID CUSTODIAL JAIL CARE. 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 Roughly 2 months ago Holden awoke with significant left-sided weakness in h er left arm and left leg that was so profound that she could barely ambulate around her house. Edenilson Lezama state that they tried hard to make Holden go to the hospital for evaluation because they wereall concerned that she was having a stroke. Even though Holden thought she was having a stroke, she was adamant that she did not want to seek medical attention because she knew that there was a possibility she would have to go to a usp for recovery from a stroke. Over the past couple months since this occurred, Carey has had to install ramps, handles, get her a walker, and even install a shower chair around his house because her deficits are so severe, but again, Holden did not want to seek medical care for fear of being transition to a usp. On the night that Holden finally came to the hospital for her necrotizing fasciitis, Leander and Carey had spent several days trying to talk her into going to the hospital and called EMS even though she had previously told not to. They expressed that they were very surprised when they learned that she had also called EMS herself. OVERALL GOALS: CONTINUE CURRENT TREATMENT PLAN AND REVISIT WITH PALLIATIVE CARE HER COURSE PROGRESSES. Overall, Carey states that Holden would likely not want any of the extensive treatment that she is getting, especially because she will potentially be spending significant amounts of time in a usp, but states I do not want to give up on her. Because Holden is not able to speak for self, and there are still several possibilities to explain her altered mental status, they would like to proceed with her treatment as currently planned, other than the previously stated DNR/limited intubation status as described above. We are all hopeful that Holden will become more lucid as she progresses and be able to assist us with her goals of care decision making personally. Lezama and Leander expressed gratitude for this conversation and would like to have more of these conversations as her clinical course progresses. Ángel Bustamante MD 06/20/23 18:45 Emergency Medicine Resident, PGY1 SICU House Staff #[phone] (Service Pager) * Jona Porras RT - 06/20/2023 1235 EDT Respiratory Progress Note Indications for Respiratory therapy: WOB, respiratory distress Data Vitals: Heart Rate: 84 BPM, Resp: 20, SpO2: 92 % FIO2/O2 Device: O2 Flow Rate (L/min): 35 l/min, , O2 Device: BIPAP, FIO2 %: 35 % RT Orders: CPAP PRN Q4 AWC vpep or cough assist Action/Events 1230: Patient on High flow, and presenting with more WOB, and belly breaths, convinced patient for trial on Bipap to catch up WOB and can switch back to High flow when needs too. 1330: Off Bipap back to High flow for insertion if feeding tube. RT REJI 06/20/23 * Venice Damon DPT - 06/20/2023 1136 EDT [facility] Acute [facility] Physical Therapy Contact Note Date of Service: 06/20/2023 Chart reviewed. Spoke with nursing staff. Pt with ongoing delirium, unable to follow commands and in restraints. Her 02 needs have increased and she was placed back on HFNC. RN noted that pt was not appropriate for therapy at this time, PT will defer at this time. Plan to consult palliative for further GOC. Plan to follow up later this week vs. Early next pending medical improvement and GOC. Venice Damon DPT 06/20/2023 11:36 * John Vallejo - 06/20/2023 1047 EDT Case Management Progress Note Level of Care: Acute Point of origin: [facility] Appropriate to transfer back or to an alternative facility: NA Discharge plan/estimated date: TBD pending clinical course LTC Medicaid Status: NA Barriers to d/c: Complex care needs requiring ICU LOC Support Network: DELIO Lezama and henrietta Alcantara. Estranged from some family members. Next Steps: CM conferred with SICU Resident regarding appropriateness of an Palliative Care referral. Primary team agrees with this plan and will make the formal referral following rounds today. CM plans to check in with Carey and Leander at bedside when they are both present at bedside. Hotel room wasoffered to [place] yesterday but was declined due to not having reliable transport to and from the hotel. Cm will offer additional supports as needed and appropriate. Update. CM met Lezama outside the SICU and checked in again on support needs for meals and or a hotelroom. Both offers were declined. CM will continue to offer supports. CMSW John Vallejo [employer] ADVIS[employer] SERVICE LIBRARIAN * Tai Azar MD - 06/20/2023 0937 EDT Images from the original note were not included. Surgery Progress Note Service Date: 06/20/2023 Admit Date: 06/13/2023 23:23 Procedure: Nec fasc debridement x2 (OSH) Serial debridement, repair rectal injury (06/14) Additional debridement, washout (06/16) Additional debridement, washout, partial closure (06/18) Chief Complaint: NSTI 24 Hour Events: Back on HFNC Pulled out her DAVID Subjective Unable to converse this morning. Appears frustrated, confused. Speaking occasionally to direct questions. Hearing aid in place. Objective Vital Signs Temp: [36.4 ??C (97.5 ??F)-36.9 ??C (98.4 ??F)] , Heart Rate: [67 BPM-102 BPM] , Pulse: --, Pulse From Oximetry: [57 BPM-105 BPM] , Resp: [14-32] , BP: (96-195)/(49-117) , SpO2: [92 %-100 %] Physical Exam General Appearance: calm, in no distress Neuro: alert, disoriented, moving all four limbs symmetrically Lung: loud rhonchi bilaterally Heart: regular rate and rhythm Abdomen: soft, nontender, rectal tube in place Extremities: Warm and well perfused, mild edema Wound: R gluteal wound dressing clean/dry/intact. Dressing change performed, wound as pictured below Labs: CBC: Recent Labs 06/18/23 0432 06/19/23 0504 06/20/23 0501 WBC 25.26* 25.80* 19.47* RBC 3.33* 3.49* 3.23* HGB 10.0* 10.5* 9.5* HCT 29.0* 31.0* 28.8* MCV 87 89 89 MCH 30.0 30.1 29.4 MCHC 34.5 33.9 33.0 PLT 432* 521* 455* NEUTROABS 21.52* 22.47* 17.43* BMP: Recent Labs 06/17/23 2343 06/18/23 0432 06/19/23 0503 06/19/23 1228 06/20/23 0501 NA 134* 134* 136 137 139 K 4.9 5.1* 5.6* 4.9 5.3* CL 109 109 107 107 108 CO2 16* 18* 20* 18* 23 BUN 37* 35* 31* 27* 27* CREATININE 0.61 0.63 0.52 0.45* 0.54 CALCIUM 8.4* 8.5 8.4* 8.3* 8.2* CAION 1.18 -- -- -- -- MG -- 1.9 2.1 -- 2.1 PHOS -- 6.1* 4.8* -- 3.5 Micro: 06/13 OR cultures: mixed GP and GN organisms, no speciation available 06/15 blood cx: pending Imaging: (Please refer to the chart for the full radiology reports including all of the findings and impressions.) XR CHEST PORTABLE LINE PLACEMENT Result Date: 06/17/2023 Slight retraction of pacemaker lead tip, now projecting just beyond tricuspid valve within the right ventricle. ET tube and NG tube as seen previously. Dense left lower lobe atelectasis and probable subsegmental atelectasis at the right lung base. Assessment 52 y.o. female with a history of HTN and T2DM who presented as a transfer from [facility] on 06/12 with necrotizing fasciitis. S/p debridement x2 at OSH and s/p debridement at [facility] on 06/14.Post-operative bradycardic arrest with ROSC after 2 rounds CPP (cardiology suspect 2/2 third degreeHB from manipulation of ETT). Coded a second time following extubation while she was on dexmedetomid ine. Has transvenous pacing wires in place now. Ongoing serial debridements with hope for partial closure and wound vac placement later this week. Plan -Appreciate SICU care -Consider replacing DAVID and bridle in order to address adequate nutrition for wound healing -Will discuss d/c IV meropenem due to adequate operative source control -Likely plan for OR tomorrow, please make NPO after midnight -Otherwise BID vashe wet to dry kerlix dressing changes TAI AZAR MD 06/20/2023 9:37 PGY3 ACS pager #[phone] Associated attestation - Efraín Rueda MD - 06/20/2023 1630 EDT Attending attestation statement: I saw and examined the patient and agree with the findings and plans as documented. Appreciate ongoing SICU care. Niece will be available today, recommend palliative care consultationto discuss goals of care. Darien Rueda MD Acute Care Surgery Pager #[phone] * Moo Monique MD - 06/20/2023 2486 EDT SICU Daily Progress Note Admit Date: 06/13/2023 Primary team: ACS CC: NSTI Right Gluteal region Procedures: Soft tissue Debridement RLE gluteal region at OSH Debridement of right buttock, primary repair of rectal injury, 06/13 RTOR for further debridement 06/16 24hr Events: OR for debridement, healthy appearing without new areas of infection, inferior aspect loosely closed Started amlodipine for continued hypertension Per partner, drinks 6 tall boys daily. Trial of CPAP for increased WOB which she tolerated well, then back on HFNC overnight, no significant hypoxic events Able to contact niece who noted that she has always avoided medical care including an instance in which she had a possible stroke and refused to go to the hospital Subjective: Continues to indicate pain in her buttocks from the wound and pain in her chest but otherwise unable to participate in conversation. Objective: Temp: [36.4 ??C (97.5 ??F)-36.9 ??C (98.4 ??F)] , Heart Rate: [67 BPM-102 BPM] , Resp: [14-32] , BP: (96-195)/(49-117) , SpO2: [92 %-100 %] I/O: Current Shift: 06/19 07 - 06/19 1459 In: 117.5 Out: 725 [Urine:725] 24 hours: 06/18 07 - 06/19 0659 In: 2482 [I.V.:713] Out: 1945 [Urine:1745; Drains:200] Tubes:VUONG, rectal tube Lines: Right Subclavian CVC with pacing wire Infusions/Rates: --- Physical Exam: Gen: asleep, comfortable HEENT: Persistent horizontal nystagmus Resp: borderline tachypneic with normal respiratory effort on nasal cannula CV: normal sinus on telemetry Abd: Protuberant, non tender, non distended : Vuong in place draining clear yellow urine Ext: WWP Neuro: Awakens to voice, very hard of hearing Skin/Wound: Large right-sided buttock wound that extends into the gluteal crease. No surrounding erythema or purulent drainage. Dressing CDI Micro: Moderate gram positive and gram negative organisms from surgical cultures TTE 06/19/23 Left Ventricle The left ventricular cavity was [...] The right atrium was normal in size. Aortic Valve The aortic valve structure was trileaflet. The aortic leaflets were mildly thickened. There was no aortic valve stenosis. There was no aortic valve regurgitation. AV Peak Velocity: 1.5 m/s. AV Mean Gradient: 5 mmHg. AV Area VTI: 2.7 cm2. Mitral Valve Mitral valve structure was normal. There was no significant mitral valve stenosis or regurgitation. Tricuspid Valve Tricuspid valve structure was normal. There was no significant tricuspid valve regurgitation. There was no tricuspid valve stenosis. Pulmonic Valve The pulmonic valve was not well visualized. There was no significant pulmonic valve regurgitation. There was no pulmonic valve stenosis. Pulmonic Artery Unable to assess PA pressure. Ascending Aorta The aorta was normal in size. Pericardium There was no pericardial effusion. IVC/SVC The inferior vena cava was normal in size. The inferior vena cava demonstrated a diameter of <=21 mm and collapses >50%; therefore, the right atrial pressure is estimated at 0-5 mmHg. New Imaging (w/in 24h): XR FEEDING TUBE PLACEMENT Result Date: 06/18/2023 Findings/Impression: Portable AP view centered over the lower chest upper abdomen demonstrates thatthe feeding tube tip projects over the gastric antrum. Nonobstructive bowel gas pattern. Suspected left pleural effusion with adjacent atelectasis, as evaluated on same-day chest radiograph. This is neither a complete view of the chest nor of the abdomen. If either view is needed, formal films are recommended. I have personally reviewed the images and the above interpretation and agree with the findings. [id number] XR CHEST PORTABLE LINE PLACEMENT Result Date: 06/18/2023 Right internal jugular temporary pacemaker wire lead in right ventricle. Dense left lower lobe atelectasis. Probable bilateral pleural effusions. [id number] CT CHEST WO CONTRAST Result Date: 06/18/2023 1. Appropriate positioning of the right internal jugular approach central venous sheath containing transvenous pacing wire. 2. Bibasilar consolidations, left greater than right. This most likely reflects atelectasis given volume loss. Evaluation for concurrent pneumonia is limited due to lack of contrast. 3. Small bilateral pleural effusions, left greater than right. 4. Scattered groundglass opacities, predominantly along the mediastinum, may represent small contusions due to resuscitation efforts. 5. Acute nondisplaced sternal body fracture and multiple bilateral acute nondisplaced to minimally displaced rib fractures, also related to resuscitation efforts. 6. Asymmetric skin thickening and left breast edema. Correlate with physical exam. Follow-up with [facility] center is recommended if these findings are not felt to be acute. I have personally reviewed the images and the above interpretation and agree with the findings. [id number] XR CHEST PORTABLE 1 VIEW Result Date: 06/18/2023 Interval extubation and removal of NG tube. Transvenous pacemaker wire tip in right ventricular apex. Interval development of left lower lobe atelectasis. Probable developing right lower lobe atelectasis. [id number] XR CHEST PORTABLE LINE PLACEMENT Result Date: 06/17/2023 Slight retraction of pacemaker lead tip, now projecting just beyond tricuspid valve within the right ventricle. ET tube and NG tube as seen previously. Dense left lower lobe atelectasis and probable subsegmental atelectasis at the right lung base. [id number] XR CHEST PORTABLE LINE PLACEMENT Result Date: 06/16/2023 Lines and tubes as described. Improving left lower lobe atelectasis. [id number] XR CHEST PORTABLE LINE PLACEMENT Result Date: 06/16/2023 Improving left lower lobe atelectasis. Endotracheal tube in the midthoracic trachea. Apparent kink of the proximal portion of the subclavian catheter which is likely projectional. [id number] XR CHEST PORTABLE 1 VIEW Result Date: 06/15/2023 1. Endotracheal tube tip terminates at the origin of the proximal right mainstem bronchus, recommend retracting a 3-4 centimeters. There appears to be consolidation or atelectasis of the left lower lobe. 2. Right-sided CVC appropriately positioned, tip at the superior cavoatrial junction. I have per sonally reviewed the images and the above interpretation and agree with the findings. [id number] XR FEEDING TUBE PLACEMENT Result Date: 06/15/2023 Findings/Impression: Portable AP view centered over the lower chest upper abdomen demonstrates thatthe gastroesophageal catheter tip projects over the body of the. The visualized bowel gas pattern is normal. There is left lower lobe lung opacity concerning for pneumonia. This is neither a completeview of the chest nor of the abdomen. If either view is needed, formal films are recommended. [id number] Labs: CBC: Recent Labs 06/18/23 0432 06/19/23 0504 06/20/23 0501 WBC 25.26* 25.80* 19.47* RBC 3.33* 3.49* 3.23* HGB 10.0* 10.5* 9.5* HCT 29.0* 31.0* 28.8* MCV 87 89 89 MCH 30.0 30.1 29.4 MCHC 34.5 33.9 33.0 PLT 432* 521* 455* NEUTROABS 21.52* 22.47* 17.43* BMP: Recent Labs 06/17/23 2343 06/18/23 0432 06/19/23 0503 06/19/23 1228 06/20/23 0501 NA 134* 134* 136 137 139 K 4.9 5.1* 5.6* 4.9 5.3* CL 109 109 107 107 108 CO2 16* 18* 20* 18* 23 BUN 37* 35* 31* 27* 27* CREATININE 0.61 0.63 0.52 0.45* 0.54 CALCIUM 8.4* 8.5 8.4* 8.3* 8.2* CAION 1.18 -- -- -- -- MG -- 1.9 2.1 -- 2.1 PHOS -- 6.1* 4.8* -- 3.5 Cardiac Markers: Recent Labs 06/18/23 0013 06/18/23 0816 TROPONINI 0.700* 0.643* Assessment: Della Browning is a 52 y.o. Female with HTN, Diet controlled T2DM here as transfer from [facility] after debridement x3 admitted for NSTI of right gluteal region. SICU team consulted for mechanical ventilation. Patient with likely bradycardic arrest 06/13 with ROSC after 2 rounds of CPR and 1mg epi, noted transient high degree AV block prior to bradycardic arrest. Second cardiac arrest secondary to complete heart block on 06/15 with transvenous pacing initiated at that time. Weaning HFNC tonasal cannula but intermittently using CPAP for work of breathing. Plan: Neuro: Concern arose on 06/19 for possible Wernicke's Encephalopathy based on persistent horizontal nystagmus (some nystagmus was seen on 06/16 but this was shortly after the patient's ketamine was discontinued Pain: Multimodal pain control with Acetaminophen 1000 mg Q6H, PO dilaudid 2-4mg Q3H, robaxin 750 QID Anxiety/agitation: Ativan 1mg Q4H Possible Wernicke's encephalopathy: Thiamine regimen: 500 mg IV TID for 2 days starting 06/19 followed by 500 mg IV QD for 5 days starting 06/21 followed by 100 mg PO QD starting 06/26 until symptom resolution, then intermittent replacement as indicated CV: Complete heart block s/p 2 arrests during this admission with ROSC both times No pacing needed since 06/16 TTE 06/18 normal Transvenous pacer backup VVI, now at 40, withdrawn to atria currently due to significant ectopy, ifneeded for pacing advance 2-3 cm or until capture Appreciate EP cardiology consult Cardiac monitoring via cuff Goal SBP >90 and MAP 65 Keep right subclavian central line with pacing wire Amlodipine 10mg daily, has been hypertensive Hydralazine 5mg prn for SBP over 180 ineffectibev Clonidine patch added Pulm: Aggressive IS and pulmonary toilet Continue VPEP/clearance Continue nasal cannula as able, HFNC when needed for increased WOB Rpt CXR ordered on 06/19 FEN/GI: Potassium 5.2 this morning, hyperkalemia interventions provided on 06/18 but holding on 06/19 David replaced after it was dislodged by the patient Resumed diet after David replaced IV PPI BID Protonix Check lytes q24h and replenish PRN Initiated thiamine and folate repletion Renal: Trend BUN/Cr, watch UOP Keep Vuong. Heme: Check CBCs daily Lovenox DVT ppx ID: [facility] cultures with 1/4 bottles growing gram positive cocci in anaerobic bottle likely contaminant Trend WBC and fever curve Abx Meropenem for 2 weeks (06/13 - 06/19), DC Blood cultures 06/15 NGTD Endo: POC glucose checks q6 Off Insulin gtt, on SSI aspart, persistently high BG MSK: Engage PT when able, fine to get up to chair Skin: Pressure ulcer prevention per SICU bundle including monitoring for device- related injuries (which include ETT, OGT, Vuong, A-line board) Wound care per primary team (ACS) Right buttock wound Tubes/Lines: Plan to keep current lines Ppx: SCDs Lovenox chemoppx Code status: Full Code GOC: Patient stating she is feeling done with everything going on although has been delirious with few periods of lucency. Plan on consulting palliative care given expected long course. Though the patient does not currently have capacity to guide her own treatment, a GOC conversation is planned to occur with palliative care on 06/19 once her niece Leander arrives as well as her boyfriend Carey. Daily ICU Checklist Prophylaxis: DVT Prophylaxis: Enoxaparin;SCDs GI Prophylaxis: Yes Skin Integrity Risk Factors: Yes Pressure Ulcer / Breakdown Present?: Yes Wound Care Consult Indicated?: No Air Mattress Indicated?: Yes CAM-ICU: Positive Ventilation/Sedation: Goal RASS: 1 Awakening Exception: Seizures/Alcohol withdrawl Is there anticipated need of a chest x-ray the next morning of ICU stay?: No Procalcitonin: Currently Following Procalcitonin: No Early Mobility: Activity Order: Activity as tolerated Does The Patient Meet Physiological Criteria For PT Referral: Yes Is The Patient Awake And Able To Participate In Therapy: PT already involved Fluids/Nutrition: Daily Fluid Goal: Even Tube Feedings: Yes Last Bowel Movement: 06/20/23 Lines: Vascular Access Assessment: Central access indicated Urinary (Vuong) Catheter Assessment: Vuong catheter indicated Communication: Updates: Family updated today;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 I agree with the findings and plan of care documented in the resident's/fellow's note. OR yest for more debridement, wound with minimal necrosis per report. TTE yest was normal. On high flow this am, confused, working a little hard to breathe. Nofurther episodes of bradycardia, will d/c pacing wires, leave cordis in place. Pulled out david tube this am, will replace, continue TF's. Will d/c meropenem and monitor off abx's. Thiamine/folate added given alcohol use hx. SO, Carey, at bedside, questions answered. Palliative consulted and plan for family meeting today when nieceAyden arrives. I participated in the direct delivery of medical care for this patient, whose critical illness impairs one or more vital organ systems such that there is a high probability of imminent or life-threatening deterioration in the patient's condition. Total time spent I spend in the delivery of criticalcare excluding procedures for the date of service was: 30 mins Moo Monique MD 06/20/2023 15:29 * Alan Rosenthal, RT - 06/20/2023 0407 EDT Images from the original note were not included. Respiratory Consult/Progress Note Data Vitals: Heart Rate: 86 BPM, Resp: 22, SpO2: 97 % FIO2/O2 Device: O2 Flow Rate (L/min): 50 l/min, , O2 Device: High flow nasal cannula, FIO2 %: 50 % RT Orders: Start Ordered 06/20/23 0500 High Flow Nasal Cannula [[id number]] RT Continuous Discontinue References: Adult Specialty O2 Devices Adult Respiratory Care Consult 06/20/23 0212 Resp Care Orders Start Ordered 06/20/23 0400 Airway Clearance Therapy [[id number]] EVERY 4 HOURS Discontinue Reschedule Comments: Or cough assist 06/20/23 0140 06/20/23 0400 Airway Clearance Therapy [[id number]] EVERY 4 HOURS Discontinue Reschedule 06/20/23 0204 Unscheduled Non-invasive Ventilation [[id number]] PRN Discontinue 06/19/23 1635 Unscheduled Airway Clearance Therapy [[id number]] PRN Discontinue Protocol Scoring: Bronchodilator/Inhalation Therapy Frequency Bronchodilator - Clinical Indications: No clinical indications Breath Sounds: Any abnormal BS decreased Response: No change / no treatment Pulse: <100 Resp Rate: 18-25 SOB: With exertion Total Score: 3 Frequency Based On Total Score: 0-4 = PRN 5-7 = QID 8-10 = Q4H 11-12 = Q2H Airway Clearance Therapy Frequency Airway Clearance - Clinical Indications: Productive cough Breath Sounds: Rhonchi / crackles Sputum: Small (tsp) / None Consistency: Thin / thick Cough Effort: Weak/ productive Color: Yellow / green Total Score: 6 Comment: QID with Q4 PRN Frequency Based On Total Score: 0-3 = PRN 4-6 = QID and PRN 7-9 = Q4H and PRN 10-11 = Q2H and PRN Hyperinflation Therapy Frequency Hyperinflation - Clinical Indications: Atelectasis on CXR Breath Sounds: Diminished / crackles Surgery: Yes X-Ray / Atelectasis: Yes O2 Requirements: 2-4 L above baseline Mobility Status: In bed Total: 11 Comment: HFNC Frequency Based On Total Score: 0-3 = PRN 4-6 = QID and PRN 7-9 = Q4H and PRN 10-12 = Q2H and PRN Action/Events Respiratory events; 2037: Coarse crackles with diminished bilateral aeration throughout lung nicole, currently maintaining oxygen saturations within goal range on 4L NC. EZ-PAP ordered and administered to aid hyperinflation. Overall good tolerance with coaching and utilizing mask vs mouth piece. Administered VPEP withcoaching throughout airway clearance therapy. 0127: Audibly coarse crackles with scattered rhonchi. Administered airway clearance therapy as ordered. 0208: Given trending tachypnea with shallow respirations, patient transitioned to HFNC 50L/55% to aid in compensation. Improved aeration post. 0355: Patient asleep with mild respirations, continues on HFNC 50L/50% - airway clearance therapy held at this time to promote rest. Response/Results Weaning and Toleration of treatments; Continued titration of respiratory support as indicated. ALAN ROSENTHAL, RT 06/20/23 * John Vallejo - 06/19/2023 1551 EDT CM Note TC with patients niece Leander who is on her way back to [place] from [place] and is planning on being on site tomorrow to assist with care coordination. Leander appreciated the CM and RN updates she has been receiving from the team. Leander reports that she wanted us to know that the she/they believe that Della had some from of stroke event about 1 month ago and that she refused treatment at the time because she was afraid of going to a usp. JOZEF has made the MD team aware of this development. JOZEF will meet with Leander and carey tomorrow when they are here on site. CMSW John Vallejo READERS' ADVISORY SERVICE LIBRARIAN * Deepthi Mujica, RT - 06/19/2023 1531 EDT Respiratory Consult/Progress Note Indications for Respiratory therapy: WOB, respiratory distress Data Vitals: Heart Rate: 67 BPM, Resp: 19, SpO2: 93 % FIO2/O2 Device: O2 Flow Rate (L/min): 6 l/min, , O2 Device: CPAP, FIO2 %: 35 % RT Orders: CPAP PRN Q4 AWC vpep or cough assist Protocol Scoring: Bronchodilator/Inhalation Therapy Frequency Bronchodilator - Clinical Indications: No clinical indications Breath Sounds: Any abnormal BS decreased Response: No change / no treatment Pulse: <100 Resp Rate: 18-25 SOB: With exertion Total Score: 3 Frequency Based On Total Score: 0-4 = PRN 5-7 = QID 8-10 = Q4H 11-12 = Q2H Airway Clearance Therapy Frequency Airway Clearance - Clinical Indications: History of mucous production Breath Sounds: Rhonchi / crackles Sputum: Small (tsp) / None Consistency: None Cough Effort: Weak/ productive Color: None Total Score: 3 Comment: prn Frequency Based On Total Score: 0-3 = PRN 4-6 = QID and PRN 7-9 = Q4H and PRN 10-11 = Q2H and PRN Hyperinflation Therapy Frequency Hyperinflation - Clinical Indications: Atelectasis on CXR Breath Sounds: Diminished / crackles Surgery: Yes X-Ray / Atelectasis: Yes O2 Requirements: 2-4 L above baseline Mobility Status: In bed Total: 11 Comment: bipap Frequency Based On Total Score: 0-3 = PRN 4-6 = QID and PRN 7-9 = Q4H and PRN 10-12 = Q2H and PRN Action/Events Respiratory events; Patient sleeping this morning. BBS diminished, coarse. Patient woken for vpep treatment. Unable to participate at this time. 1300 To OR for debridement 1455 Patient returned from OR on simple mask. Patient transitioned to nasal cannula. WOB apparent, patient diminished and coarse. She also sounds like she is obstructing. Tried cough assist to clear secretions with patient but unable to tolerate. Patient placed on cpap 10 cm h20 35% to try to re-expand lower lobes. Patient tolerating cpap well, breathing is non-labored and comfortable appearing. RR teens-20. Highly recommend following Q4 for AWC as patient has high risk of deteriorating from respiratory standpoint RT MYKE 06/19/23 * Fani Paul - 06/19/2023 1400 EDT [facility] Spiritual Care Note Re: Della Browning : 1970, AGE: 52 y.o. ROOM: OR/[facility] OR Spirituality: None BACKGROUND Request for stock cutter support from nurse ASSESSMENT Holden is critically ill in the sicu with necrotizing fasciitis and other co morbidities She struggles with taking care of her health She does not have any community support at home where she lives with her Carey. She is hard of hearing and would only say she I want to go home. INTERVENTIONS Supportive presence, prayer and family support CARE PLAN Continued stock cutter support RECOMMENDATIONS None TIME STAMP: 15 minutes Thank you for the opportunity to provide for this patient's/family's spiritual needs. FANI PAUL [facility] Seo Strategist/Internet Researcher * John Vallejo - 06/19/2023 1210 EDT Initial Case Management/Social Work Assessment and Discharge Plan/Readmission Risk Assessment REASON FOR ADMISSION: Necrotizing fasciitis (HCC-CMS) Patient understands reason for admission: PATIENT INFO VERIFIED: PCP not verified Type of housing (single family, condo, apartment, nursing home, single room occupancy, [facility] funded hotel room, group residential) - apartment Who does the patient live with? Does the patient have access to their own bedroom/bathroom/kitchen - or is it shared with others? shared Name of housing complex (ex [facility], [facility], etc)- n/a Housing Authority/Managing Organization - n/a Community Care Providers (case reviewer, [facility] nurse, etc) name and contact information- n/a Discharge Delay Risk Assessment 1. Disease/Medical Condition: Diseases or conditions that result in ADL decline or continuous medical treatment 2. Hospitalization: Unplanned admission 4. Activities of daily living: Nursing or support will be required at discharge, Insufficient self care 5. Nursing status at home: Home visit doctor or nursing is required Major Barrier day total 1-6: 5 Risk for Delayed Discharge: At Risk For Delayed Discharge 7. Economic situation: Worried about living expenses, Worried about paying medical expenses Major Barrier day total 7-8: 2 Risk for Delayed Discharge: At Risk For Delayed Discharge Does the patient meet criteria to be escalated?: No LIVING ARRANGEMENTS AND ACCESSIBILITY ISSUES: Living Arrangements: Apartment, Spouse / significant other Levels: 1 Stairs to enter: 0 Handicap access: (S) Ramp, Grab bars, Railings into home (railings throught the home. shower chair,commode, grab bars in the bathroom and ramp.) Bathroom located on bedroom level?: Yes What in home social supports are available to the patient? Spouse / significant other, Family member(s), Children, Friends / neighbors Is 24/7 care available? No ADVANCED DIRECTIVES, POA &/or COLST IN PLACE: Healthcare Directive: No, patient does not have advance directive for healthcare treatment Information Provided on Healthcare Directives: Yes Information on Healthcare Directives Requested: No DIRECTIVES FOR FINANCES: Directive For Finances: No TRANSPORTATION: Transportation: Family Does the patient need discharge transport arranged?: Yes Has discharge transport been arranged?: No (CM will address transport closer to time of DC>) Patient expects to be discharged to: TBD pending clinnical course. CULTURAL, TENRIISM and/or LANGUAGE factors affecting health care/discharge planning: Spiritual/Cultural Requests: None Language/Literacy Needs Do you need us to provide any communication aids or devices?: No Insurance Information: Medical Insurance: Yes Type of insurance: Medicaid Medicaid Type: Community Referred to patient financial services: No Nutrition: DISCHARGE RISK ASSESSMENT: Lives at home with limited or no community support;Requires assistance with ADLs/IADLs;End stage condition;Decreased adherence to treatment plan;Polypharmacy, > 7 medications;Requires assistance with medication management;Issues with health literacy Total # selected above: Score > or equal to 5: This patient is HIGH RISK for re-hospitalization Tentative plan to address the risk of re-hospitalization for those at HIGH MODERATE RISK: (S) Bringrisk factors to attention of team to be addressed;Refer to skilled home care services;Refer to SNF;Increased community/outpatient support (plan TBD pending clinnicalcourse but likley ANDRES>) RAPT TOOL: Age: 50-65 Gender: Female Ambulation distance: Housebound most of the time Gait device: Crutch/Walker Community Services: Home health, MOW, SASH-none of one time a week Will you live with someone who will care for you?: Yes RAPT Tool Score: 7 Patient expects to be discharged to: TBD pending clinnical course. SBIRT: Unable to assess-SASQ: (S) Other (Comment) (patientiwth kjnown ETOH Hx but unable to partisipate inacreening at this time.) Intervention in place/initiated?: (S) Other (Comment) (CM will asses support needs for SUDO/ETOH UDneeds prior to DC when able to partisipate in the screening.) FUNCTIONAL STATUS: Activities patient requires assistance: Food preparation/shopping, In/Out of Bed, Mobility, Taking Medications, Toileting Assistive Devices: Cane, Walker, Wheelchair Walker type: Front wheel COMMUNITY RESOURCES/SUPPORTS: Primary Care Provider: UNKNOWN,PROVIDER PCP Verified: Specialists: None Type of Home Health Services: None DME Provider: Pharmacy: No Pharmacies Listed Home Health: Other: POST HOSPITAL TRANSITION PLAN: The patient is a 52 year old female who resides in a 1 level apartment that is ramped and equipped with multiple pieces of DME including shower seat, commode, grab bars, ramp, wheel chair and walker. Their family friend Jona assists with transportation as needed. There are currently no community supports or HH services in place at this time. CM will follow for ongoing care needs and eventual DC planning. Hotel assist offered to [facility] but was declined. JOHN VALLEJO 06/19/2023 12:10 * Ashleigh Stout, RD - 06/19/2023 1129 EDT Nutrition Assessment Note: Reassessment Admit Date: 06/13/2023 23:23 BACKGROUND DATA Clinical Course Since Last RD Visit: Per 's note today: Primary team: ACS CC: NSTI Right Gluteal region Procedures: Soft tissue Debridement RLE gluteal region at OSH Debridement of right buttock, primary repair of rectal injury, 06/13 RTOR for further debridement 06/16 24hr Events: DAVID tube placed Old removed, new right subclavian line placed, pacer wire replaced More alert overnight Pacing wires causing ectopy, retracted- currently atrial- if need for pacing will need to advance Subjective: Per critical care team, pt. NPO for OR, plan to resume tube feeding post op Family/friend has arrived Current Nutrition Orders: NPO Tube feeding order:off Enteral Free Water: none Protein supplements: 30 ml pro source BID:120 calories and 30 gram protein~ ordered but not administered d/t NPO Order writing privileges delegated to RD: Yes Nutrition Focused Physical Exam Subcutaneous Fat Assessment Orbital Region: Well-nourished (06/14/23 1520) Cheek Region: Well-nourished (06/14/23 1520) Upper Arm Region: Well-nourished (06/14/23 1520) Midaxillary Line: Not assessed (06/14/23 1520) Muscle Mass Assessment Congregation Region: Well-nourished (06/14/23 1520) Clavicle Region: Well-nourished (06/14/23 1520) Shoulder/Acromion/Clavicle Region: Well-nourished (06/14/23 1520) Scapula Region: Not assessed (06/14/23 1520) Hand Region: Not assessed (06/14/23 1520) Thigh/Patellar Region: Not assessed (06/14/23 1520) Calf Region: Not assessed (06/14/23 1520) NFPE Assessment Summary of Fat Wasting: No significant evidence of wasting (06/14/23 1520) Summary of Muscle Wasting: No significant evidence of wasting (06/14/23 1520) Physical Findings: Pulmonary:Weaning HFNC to nasal cannula Neuro: very hard of hearing Digestive Systems: Last BM : RT 125 ml Abdomen: Protuberant, non tender, non distended Dentition: Teeth: Missing teeth, Dentures upper, Dentures lower per flowsheets Edema: +1 all extremities. Skin: R gluteal wound dressing clean/dry/intact.large right-sided buttock wound that extends into the gluteal crease Allergies on file: Aspirin, Cymbalta [duloxetine], Lyrica [pregabalin], and Penicillins Anthropometrics: Height: 160 cm (63) IBW: 52.4 kg Adjust weight @ 50%: 69.3 kg Wt Readings from Last 6 Encounters: 06/19/23 86.2 kg (190 lb) Weights Filed This Admission 06/14/23 0000 06/19/23 0900 Weight: 86.2 kg (190 lb) 86.2 kg (190 lb) Weight Change: no known change. Pertinent Medications: Current Facility-Administered Medications Medication Route Frequency acetaminophen (TYLENOL) tablet 1,000 mg oral Q6H alteplase (CATHFLO ACTIVASE) injection 2 mg intercatheter PRN amino acids-protein hydrolysate (PRO SOURCE NOCARB) packet 30 mL feeding tube BID amLODIPine (NORVASC) tablet 5 mg oral DAILY ascorbic acid (vitamin C) (VITAMIN C) tablet 500 mg oral BID atropine 0.1 mg/mL syringe dextrose 50 % solution 12.5 g intravenous PRN enoxaparin (LOVENOX) injection 40 mg subcutaneous DAILY glucagon injection 1 mg intramuscular PRN hydrALAZINE (APRESOLINE) injection 5 mg intravenous Q6H PRN HYDROmorphone (DILAUDID) tablet 2-4 mg oral Q3H PRN HYDROmorphone (PF) (DILAUDID) 0.5 mg/0.5 mL syringe 0.25-0.5 mg intravenous Q2H PRN insulin aspart U-100 (NOVOLOG FLEXPEN) injection 0-20 Units subcutaneous Q6H lidocaine 5 % (LIDODERM) patch 2 Patch transdermal DAILY LORazepam (ATIVAN) tablet 1 mg oral Q4H PRN meropenem (MERREM) 1 g in sodium chloride (NS DDDS) 0.9% 50 ml IVPB intravenous Q8H methocarbamoL (ROBAXIN) tablet 750 mg oral QID Multivitamins with minerals + ferrous gluconate (CENTRUM) oral solution 15 mL feeding tube DAILY naloxone (NARCAN) injection 0.1 mg intravenous PRN pantoprazole (PROTONIX) injection 40 mg intravenous BID papain-alpha amylase-cellulase (CLOG ZAPPER) 2-5 mL feeding tube PRN peptamen intense VHP per ng tube CONTINUOUS polyethylene glycol 3350 (MIRALAX) packet 17 g per ng tube DAILY senna (SENOKOT) tablet 2 Tablet oral QHS Sodium chloride - hypochlorus acid 0.033% solution (aka Vashe) (VASHE) 0.033 % external solution topical BID sodium chloride 0.9 % 120 mL per g tube Q4H sodium hypochlorite (DAKINS) 0.25 % external solution topical BID zinc sulfate (ZINCATE) capsule 220 mg oral DAILY Pertinent Labs: Relevant Labs: Lab Results Component Value Date WBC 25.80 (H) 06/19/2023 RBC 3.49 (L) 06/19/2023 HGB 10.5 (L) 06/19/2023 HCT 31.0 (L) 06/19/2023 MCV 89 06/19/2023 MCH 30.1 06/19/2023 PLT 521 (H) 06/19/2023 NA 136 06/19/2023 K 5.6 (H) 06/19/2023 CL 107 06/19/2023 CO2 20 (L) 06/19/2023 BUN 31 (H) 06/19/2023 CREATININE 0.52 06/19/2023 CALCIUM 8.4 (L) 06/19/2023 MG 2.1 06/19/2023 PHOS 4.8 (H) 06/19/2023 Lab Results Component Value Date/Time HGBA1C 8.2 (H) 06/14/2023 04:55 GLUCOSEPOC 112 (H) 06/19/2023 10:12 GLUCOSEPOC 159 (H) 06/19/2023 08:06 GLUCOSEPOC 150 (H) 06/19/2023 01:20 GLUCOSEPOC 145 (H) 06/18/2023 17:20 GLUCOSEPOC 127 (H) 06/18/2023 11:53 No results found for: CRP, LABALBU, PALBS, [id number] Estimated Nutrition Needs: Using 86.2 kg MSJ x 1.2 = 1733 kcals/day 20 kcal/k 2.0 g/kg protein (using IBW of 52.4 kg) = 105 g protein/day 1.5 gram per kg of adjusted weight: 103 gram protein per day. Estimated Nutrition Intake: 620 ml p.o. yesterday ASSESSMENT: Pt. Has extubated, NGT remains in place, currently NPO for OR. Plans for tube feeding post op. Note elevated K today, pt. Is s/p treatment for elevated K with plans to repeat potassium level later today. Avoid use of enteral feeding with supplemental arginine (Impact peptide 1.5 and perative) in the setting of recent [place] and elevated potassium. Goal tube feeding: Promote @ 70 ml/h continuous provides: 1680 calories and 104 gram protein per day, this meets 100% energy and protein needs with out need for pro source. If able to eat consider 16 hour tube feeding to enable daytime appetite:: Promote at 106 ml/h x 16 hours, off 8 hours on days. Continue vitamin C and zinc as ordered. Supplement vitamin D in this pt. At risk for deficiency d/tobesity. Pt. With RT and receiving medications to keep stool loose to easily transit RT. Phosphorus is elevated but down trending. No role for phosphorus binder at this time. Hyponatremia noted, team considering changing free water to NS. Trend electrolyte. Nutrition Risk Level: High (1) MEDICAL NUTRITION THERAPY - UPDATED PLAN Diet advance to: CCD with boost glucose control as supplement Goal tube feeding: Promote @ 70 ml/h continuous and d/c pro source Enteral free water: 60 ml every 4 hours to maintain tube patency Increase enteral free water as needed to meet needs for hydration If overnight feeds : Promote @ 106 ml/h x 16 hours, off 8 hours on days Continue vitamin C and zinc as ordered Order enteral supplement: 1000 International Units vitamin D daily Monitor daily: Include electrolyte, calcium, magnesium and phosphorus with daily labs BG as ordered Weigh on Monda Nutrition to advise/suggest changes to tube feeding plan as needed based on tube feeding tolerance,labs and changes in medical condition. Ashleigh tSout RD, CD (Call PAS or use [employer] ([employer]) to page RD covering this unit) * Moo Monique MD - 06/19/2023 1031 EDT SICU Daily Progress Note Admit Date: 06/13/2023 Primary team: MAIRA CC: NSTI Right Gluteal region Procedures: Soft tissue Debridement RLE gluteal region at OSH Debridement of right buttock, primary repair of rectal injury, 06/13 RTOR for further debridement 06/16 24hr Events: DAVID tube placed Old removed, new right subclavian line placed, pacer wire replaced More alert overnight Pacing wires causing ectopy, retracted- currently atrial- if need for pacing will need to advance Subjective: Sleeping comfortably this morning. Per nursing, no acute discomfort this morning. Objective: Temp: [36.5 ??C (97.7 ??F)-36.8 ??C (98.2 ??F)] , Heart Rate: [75 BPM-116 BPM] , Resp: [14-37] , BP: (107-223)/(53-151) , SpO2: [92 %-100 %] I/O: Current Shift: 06/18 0700 - 06/18 1459 In: 180 Out: 95 [Urine:95] 24 hours: 06/17 0600 - 06/18 0659 In: 899.8 [P.O.:620] Out: 2059 [Urine:1935; Drains:125] Tubes:VUONG, rectal tube Lines: Right Subclavian CVC with pacing wire Infusions/Rates: --- Physical Exam: Gen: asleep, comfortable Resp: somewhat tachypneic with moderate respiratory effort on nasal cannula CV: normal sinus on telemetry Abd: Protuberant, non tender, non distended : Vuong in place draining clear yellow urine Ext: WWP Neuro: Awakens to voice, symmetric, very hard of hearing Skin/Wound: Large right-sided buttock wound that extends into the gluteal crease. No surrounding erythema or purulent drainage. Dressing CDI Micro: Moderate gram positive and gram negative organisms from surgical cultures TTE 06/19/23 Left Ventricle The left ventricular cavity was [...] The right atrium was normal in size. Aortic Valve The aortic valve structure was trileaflet. The aortic leaflets were mildly thickened. There was no aortic valve stenosis. There was no aortic valve regurgitation. AV Peak Velocity: 1.5 m/s. AV Mean Gradient: 5 mmHg. AV Area VTI: 2.7 cm2. Mitral Valve Mitral valve structure was normal. There was no significant mitral valve stenosis or regurgitation. Tricuspid Valve Tricuspid valve structure was normal. There was no significant tricuspid valve regurgitation. There was no tricuspid valve stenosis. Pulmonic Valve The pulmonic valve was not well visualized. There was no significant pulmonic valve regurgitation. There was no pulmonic valve stenosis. Pulmonic Artery Unable to assess PA pressure. Ascending Aorta The aorta was normal in size. Pericardium There was no pericardial effusion. IVC/SVC The inferior vena cava was normal in size. The inferior vena cava demonstrated a diameter of <=21 mm and collapses >50%; therefore, the right atrial pressure is estimated at 0-5 mmHg. New Imaging (w/in 24h): XR FEEDING TUBE PLACEMENT Result Date: 06/18/2023 Findings/Impression: Portable AP view centered over the lower chest upper abdomen demonstrates thatthe feeding tube tip projects over the gastric antrum. Nonobstructive bowel gas pattern. Suspected left pleural effusion with adjacent atelectasis, as evaluated on same-day chest radiograph. This is neither a complete view of the chest nor of the abdomen. If either view is needed, formal films are recommended. I have personally reviewed the images and the above interpretation and agree with the findings. [id number] XR CHEST PORTABLE LINE PLACEMENT Result Date: 06/18/2023 Right internal jugular temporary pacemaker wire lead in right ventricle. Dense left lower lobe atelectasis. Probable bilateral pleural effusions. [id number] CT CHEST WO CONTRAST Result Date: 06/18/2023 1. Appropriate positioning of the right internal jugular approach central venous sheath containing transvenous pacing wire. 2. Bibasilar consolidations, left greater than right. This most likely reflects atelectasis given volume loss. Evaluation for concurrent pneumonia is limited due to lack of contrast. 3. Small bilateral pleural effusions, left greater than right. 4. Scattered groundglass opacities, predominantly along the mediastinum, may represent small contusions due to resuscitation efforts. 5. Acute nondisplaced sternal body fracture and multiple bilateral acute nondisplaced to minimally displaced rib fractures, also related to resuscitation efforts. 6. Asymmetric skin thickening and left breast edema. Correlate with physical exam. Follow-up with [facility] center is recommended if these findings are not felt to be acute. I have personally reviewed the images and the above interpretation and agree with the findings. [id number] XR CHEST PORTABLE 1 VIEW Result Date: 06/18/2023 Interval extubation and removal of NG tube. Transvenous pacemaker wire tip in right ventricular apex. Interval development of left lower lobe atelectasis. Probable developing right lower lobe atelectasis. [id number] XR CHEST PORTABLE LINE PLACEMENT Result Date: 06/17/2023 Slight retraction of pacemaker lead tip, now projecting just beyond tricuspid valve within the right ventricle. ET tube and NG tube as seen previously. Dense left lower lobe atelectasis and probable subsegmental atelectasis at the right lung base. [id number] XR CHEST PORTABLE LINE PLACEMENT Result Date: 06/16/2023 Lines and tubes as described. Improving left lower lobe atelectasis. [id number] XR CHEST PORTABLE LINE PLACEMENT Result Date: 06/16/2023 Improving left lower lobe atelectasis. Endotracheal tube in the midthoracic trachea. Apparent kink of the proximal portion of the subclavian catheter which is likely projectional. [id number] XR CHEST PORTABLE 1 VIEW Result Date: 06/15/2023 1. Endotracheal tube tip terminates at the origin of the proximal right mainstem bronchus, recommend retracting a 3-4 centimeters. There appears to be consolidation or atelectasis of the left lower lobe. 2. Right-sided CVC appropriately positioned, tip at the superior cavoatrial junction. I have per sonally reviewed the images and the above interpretation and agree with the findings. [id number] XR FEEDING TUBE PLACEMENT Result Date: 06/15/2023 Findings/Impression: Portable AP view centered over the lower chest upper abdomen demonstrates thatthe gastroesophageal catheter tip projects over the body of the. The visualized bowel gas pattern is normal. There is left lower lobe lung opacity concerning for pneumonia. This is neither a completeview of the chest nor of the abdomen. If either view is needed, formal films are recommended. [id number] Labs: CBC: Recent Labs 06/17/23 0406 06/17/23 1734 06/18/23 0432 06/19/23 0504 WBC 20.05* 20.00* 25.26* 25.80* RBC 2.47* 2.89* 3.33* 3.49* HGB 7.5* 8.5* 10.0* 10.5* HCT 21.1* 25.1* 29.0* 31.0* MCV 85 87 87 89 MCH 30.4 29.4 30.0 30.1 MCHC 35.5 33.9 34.5 33.9 PLT 349 332 432* 521* NEUTROABS 15.48* -- 21.52* 22.47* BMP: Recent Labs 06/16/23 2126 06/16/23 2351 06/17/23 0406 06/17/23 0806 06/17/23 1131 06/17/23 2343 06/18/23 0432 06/19/23 0503 NA -- < > 129* -- < > 134* 134* 136 K -- < > 4.6 -- < > 4.9 5.1* 5.6* CL -- < > 105 -- < > 109 109 107 CO2 -- < > 18* -- < > 16* 18* 20* BUN -- < > 41* -- < > 37* 35* 31* CREATININE -- < > 0.85 -- < > 0.61 0.63 0.52 CALCIUM -- < > 8.7 -- < > 8.4* 8.5 8.4* CAION 1.13* -- -- 1.19 -- 1.18 -- -- MG -- -- 1.9 -- -- -- 1.9 2.1 PHOS -- -- 6.4* -- -- -- 6.1* 4.8* < > = values in this interval not displayed. Cardiac Markers: Recent Labs 06/16/23 1133 06/18/23 0013 06/18/23 0816 TROPONINI 1.370* 0.700* 0.643* Assessment: Della Browning is a 52 y.o. Female with HTN, Diet controlled T2DM here as transfer from [facility] after debridement x2 admitted for NSTI of right gluteal region. SICU team consulted for mechanical ventilation. Patient with likely bradycardic arrest 06/13 with ROSC after 2 rounds of CPR and 1mg epi, noted transient high degree AV block prior to bradycardic arrest. Second cardiac arrest secondary to complete heart block on 06/15 with transvenous pacing initiated at that time. Weaning HFNC tonasal cannula, stable at this time with plan for return to OR today. Plan: Neuro: Pain: Multimodal pain control with Acetaminophen 1000 mg Q6H, PO dilaudid 2-4mg Q3H, robaxin 750 QID Anxiety/agitation: Ativan 1mg Q4H Ketamine for pain discontinued on 06/16 due to delirium CV: Complete heart block s/p 2 arrests during this admission with ROSC both times No pacing need overnight TTE 06/18 normal Transvenous pacer backup VVI, now at 40, withdrawn to atria currently due to significant ectopy Appreciate EP cardiology consult Cardiac monitoring via cuff Goal SBP >90 and MAP 65 Keep right subclavian central line with pacing wire Start amlodipine 5mg daily, has been hypertensive Hydralazine 5mg prn for SBP over 180 Pulm: Aggressive IS and pulmonary toilet Continue VPEP/clearance On nasal cannula, continue as able FEN/GI: Potassium 5.6 this morning s/p hyperkalemia treatment with noon recheck NPO today for OR Resume tube feeds following Resume diet following OR IV PPI BID Protonix Check lytes q24h and replenish PRN Renal: Trend BUN/Cr, watch UOP Keep Vuong. Heme: Check CBCs daily Lovenox DVT ppx ID: [facility] cultures with 1/4 bottles growing gram positive cocci in anaerobic bottle likely contaminant Trend WBC and fever curve Abx Meropenem for 2 weeks (06/13 - 06/26) Blood cultures 06/15 NGTD Endo: POC glucose checks q6 Off Insulin gtt, on SSI aspart MSK: Engage PT when able Skin: Pressure ulcer prevention per SICU bundle including monitoring for device- related injuries (which include ETT, OGT, Vuong, A-line board) Wound care per primary team (ACS) Right buttock wound Tubes/Lines: Plan to keep current lines Ppx: SCDs Lovenox chemoppx Code status: Full Code GOC: Patient stating she is feeling done with everything going on although has been delirious with few periods of lucency. Considering consulting palliative care given expected long course if she mentally clears. Daily ICU Checklist Prophylaxis: DVT Prophylaxis: SCDs;Enoxaparin GI Prophylaxis: Yes Skin Integrity Risk Factors: Yes Pressure Ulcer / Breakdown Present?: Yes Wound Care Consult Indicated?: Already consulted Air Mattress Indicated?: Yes CAM-ICU: Positive Ventilation/Sedation: Weaning Assessment: Other (Coment) Goal RASS: 0 Daily Awakening Performed: Not indicated Is there anticipated need of a chest x-ray the next morning of ICU stay?: No Procalcitonin: Currently Following Procalcitonin: No Early Mobility: Activity Order: Activity as tolerated Does The Patient Meet Physiological Criteria For PT Referral: Yes Is The Patient Awake And Able To Participate In Therapy: Yes - Order PT Fluids/Nutrition: Daily Fluid Goal: Even Tube Feedings: Yes Last Bowel Movement: 06/18/23 Lines: Vascular Access Assessment: Central access indicated Urinary (Vuong) Catheter Assessment: Vuong catheter indicated Communication: Updates: 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 I agree with the findings and plan of care documented in the resident's/fellow's note. New pacing wires floated yest because of cordis leaking, nobradycardia O/N. TTE being done this am. Hypertensive, will add amlodipine for BP control. Hyperkalemia with potassium 5.6 this am, treated and will re check. Plan for return to OR today for further debridement. Will ask Palliative to see once she's more alert. Per report, henrietta on way to hospital today. Critical care time: 25 mins Moo Monique MD 06/19/2023 14:29 * John Vallejo - 06/19/2023 0933 EDT CM Note JOZEF received request for assistance contacting family member for consenting info. JOZEF attempted calling the patients henrietta Alcantara and got no answer. From chart review she is en rout to the hospital from [place] and does not have contact info for the patients Dtr. Jozef called Lezama the patients SO who was already on his way in from [facility] via ride from a friend. There is concern he is intoxicated and has a long Hx of ETOH UD. Carey is unable to navigate his cell phone to retrieve the contact info for Renetta the patients Dtr. Unclear if the the patient and Renetta are in regular contact. JOZEF hopes to assist Lezama when here in retrieving Renetta's phone number. CMSW John Vallejo [employer] SERVICE [employer]RARIAN * Tai Azar MD - 06/19/2023 0649 EDT Surgery Progress Note Service Date: 06/19/2023 Admit Date: 06/13/2023 23:23 Procedure: Nec fasc debridement x2 (OSH) Serial debridement, repair rectal injury (06/14) Additional debridement, washout (06/16) Chief Complaint: NSTI 24 Hour Events: NAEO Subjective Doing okay, a bit tearful this morning when I mentioned we talked with her niece, Ayden, to give her an update. Asked about breathing and pain but does not reply. Objective Vital Signs Temp: [36.5 ??C (97.7 ??F)-36.8 ??C (98.2 ??F)] , Heart Rate: [68 BPM-116 BPM] , Pulse: --, Pulse From Oximetry: [67 BPM-116 BPM] , Resp: [14-37] , BP: (103-206)/(54-151) , SpO2: [92 %-100 %] Physical Exam General Appearance: calm, in no distress Lung: loud rhonchi bilaterally Heart: regular rate and rhythm Abdomen: soft, nontender, rectal tube in place Extremities: Warm and well perfused, mild edema Wound: R gluteal wound dressing clean/dry/intact. Dressing change deferred in favor of minimizing patient discomfort given plan for OR today Labs: CBC: Recent Labs 06/17/23 0406 06/17/23 1734 06/18/23 0432 06/19/23 0504 WBC 20.05* 20.00* 25.26* 25.80* RBC 2.47* 2.89* 3.33* 3.49* HGB 7.5* 8.5* 10.0* 10.5* HCT 21.1* 25.1* 29.0* 31.0* MCV 85 87 87 89 MCH 30.4 29.4 30.0 30.1 MCHC 35.5 33.9 34.5 33.9 PLT 349 332 432* 521* NEUTROABS 15.48* -- 21.52* 22.47* BMP: Recent Labs 06/16/23 2126 06/16/23 2351 06/17/23 0406 06/17/23 0806 06/17/23 1131 06/17/23 2343 06/18/23 0432 06/19/23 0503 NA -- < > 129* -- < > 134* 134* 136 K -- < > 4.6 -- < > 4.9 5.1* 5.6* CL -- < > 105 -- < > 109 109 107 CO2 -- < > 18* -- < > 16* 18* 20* BUN -- < > 41* -- < > 37* 35* 31* CREATININE -- < > 0.85 -- < > 0.61 0.63 0.52 CALCIUM -- < > 8.7 -- < > 8.4* 8.5 8.4* CAION 1.13* -- -- 1.19 -- 1.18 -- -- MG -- -- 1.9 -- -- -- 1.9 2.1 PHOS -- -- 6.4* -- -- -- 6.1* 4.8* < > = values in this interval not displayed. Micro: 06/13 OR cultures: mixed GP and GN organisms 06/15 blood cx: pending Imaging: (Please refer to the chart for the full radiology reports including all of the findings and impressions.) XR CHEST PORTABLE LINE PLACEMENT Result Date: 06/17/2023 Slight retraction of pacemaker lead tip, now projecting just beyond tricuspid valve within the right ventricle. ET tube and NG tube as seen previously. Dense left lower lobe atelectasis and probable subsegmental atelectasis at the right lung base. Assessment 52 y.o. female with a history of HTN and T2DM who presented as a transfer from [facility] on 06/12 with necrotizing fasciitis. S/p debridement x2 at OSH and s/p debridement at [facility] on 06/14.Post-operative bradycardic arrest with ROSC after 2 rounds CPP (cardiology suspect 2/2 third degreeHB from manipulation of ETT). Coded a second time following extubation while she was on dexmedetomid ine. Has transvenous pacing wires in place now. Ongoing serial debridements with hope for partial closure and wound vac placement today or this week. Plan -Appreciate SICU care -Continue IV meropenem, follow-up OR culture speciations -Plan for OR today for additional debridement and washout -Otherwise BID vashe wet to dry kerlix dressing changes TAI AZAR MD 06/19/2023 6:49 PGY3 ACS pager #[phone] * Claus Gillespie RN - 06/19/2023 9726 EDT Pt. Henrietta Leander, called in from [place] via telephone number [phone]. Leander stated that she has not been updated on Holden's care since 06/11 or 06/12. She affirmed that she has not been able to reach Lezama, patient's significant other, and finally was able to this morning, prompting her call into this unit. Leander is upset to learn of Holden's current status and inability to connect with Lezama previously. She confirmed that Holden is very unhealthy at home and hasn't taken care of herself in years. She also stated that Lezama is a terrible alcoholic and that we would only be able to reach him in a coherant state early in the morning. Leander states that Della has a child or children that she is estranged with;the name Renetta was mentioned as daughter. Leander does not have their contact, but affirms that Carey does. Leander stated thatflaco would be available for the team to call and that she would be traveling here over the next 24 hours. Coincidentally, Carey called into unit and surely appeared intoxicated. He affirmed that he was updated 2 days ago, after her heart stopped again., per his statement. He also affirmed that Holden has adaughter named Renetta and that he doesn't know how to operate cell phone to get that contact. Thisnurse updated Carey on Holden's status and requested him to seek help in getting Brandy's number and toplease call back. * Emma Marcum, RT - 06/19/2023 0323 EDT Respiratory Consult/Progress Note Indications for Respiratory therapy: post extubation WOB Data Vitals: Heart Rate: 105 BPM, Resp: (!) 31, SpO2: 100 % FIO2/O2 Device: O2 Flow Rate (L/min): 15 l/min, , O2 Device: Non-rebreather mask, FIO2 %: 100 % RT Orders: HFNC PRN Q4 AWC vpep or cough assist Protocol Scoring: Bronchodilator/Inhalation Therapy Frequency Bronchodilator - Clinical Indications: No clinical indications Breath Sounds: Any abnormal BS decreased Response: No change / no treatment Pulse: <100 Resp Rate: 18-25 SOB: With exertion Total Score: 3 Frequency Based On Total Score: 0-4 = PRN 5-7 = QID 8-10 = Q4H 11-12 = Q2H Airway Clearance Therapy Frequency Airway Clearance - Clinical Indications: Productive cough Breath Sounds: Rhonchi / crackles Sputum: Small (tsp) / None Consistency: None Cough Effort: Weak/ productive Color: None Total Score: 3 Comment: prn Frequency Based On Total Score: 0-3 = PRN 4-6 = QID and PRN 7-9 = Q4H and PRN 10-11 = Q2H and PRN Hyperinflation Therapy Frequency Hyperinflation - Clinical Indications: Atelectasis on CXR Breath Sounds: Diminished / crackles Surgery: Yes X-Ray / Atelectasis: Yes O2 Requirements: 0-2 L above baseline Mobility Status: In bed Total: 10 Comment: VPEP Frequency Based On Total Score: 0-3 = PRN 4-6 = QID and PRN 7-9 = Q4H and PRN 10-12 = Q2H and PRN Action/Events Respiratory events; 1530 - Patient weaned off HFNC to 3L NC. 1900 - Assumed care of patient on 3L. Patient sleeping comfortably earlier in shift and VPEP treatment deferred. RR while asleep is in the high teens. 2125 - Patient awake now and tolerated VPEP treatment well. 3 sets of 8 breaths performed. Patient breathing pattern labored and shallow RR slightly tachypneic. BBS diminished with crackles. Non-productive cough. 0000 - Did not wake patient sleeping again and appears comfortable. 0145 - Patient awake with RR in the 30's with desat into the 80's. NRB placed by RN. 0258 - ABG 7.26/46/162/22/-6/99% on NRB 0340 - Patient settled and returned to 3L NC 0520 - On 4L NC - VPEP treatment of 2 sets of 5 breaths. Poor effort and strength. BBS coarse. RT MARIA ALEJANDRA 06/19/23 * Venice Damon DPT - 06/18/2023 1341 EDT [facility] Acute Therapy [facility] Physical Therapy Contact Note Date of Service: 06/18/2023 Spoke with RN this AM. Plan was to promote rest at this time as Team was planning to place tube feed shortly. Recommended follow up this PM. On follow up pt plan to have central line placed by physicians. PT deferred at this time. Plan for OR tomorrow. PT to follow up s/p. Venice Damon DPT 06/18/2023 13:41 * Tai Azar MD - 06/18/2023 1026 EDT Images from the original note were not included. Surgery Progress Note Service Date: 06/18/2023 Admit Date: 06/13/2023 23:23 Procedure: Nec fasc debridement x2 (OSH) Serial debridement, repair rectal injury (06/14) Additional debridement, washout (06/16) Chief Complaint: NSTI 24 Hour Events: Return to OR for additional debridement and washout Subjective On high flow, not very conversant but opens eyes and nods to questions. Objective Vital Signs Temp: [36.2 ??C (97.1 ??F)-36.9 ??C (98.5 ??F)] , Heart Rate: [62 BPM-101 BPM] , Pulse: --, Pulse From Oximetry: [65 BPM-101 BPM] , Resp: [12-37] , BP: (103-199)/(54-141) , SpO2: [89 %-100 %] +HFNC Physical Exam General Appearance: calm, in no distress Lung: clear breath sounds, shallow breathing Heart: regular rate and rhythm Abdomen: soft, nontender, rectal tube in place Extremities: Warm and well perfused, mild edema Wound: R gluteal wound dressing clean/dry/intact. Dressing changed this morning, wound as pictured below. Labs: CBC: Recent Labs 06/16/23 0457 06/16/23 0805 06/17/23 0406 06/17/23 1734 06/18/23 0432 WBC 28.97* < > 20.05* 20.00* 25.26* RBC 2.86* < > 2.47* 2.89* 3.33* HGB 8.8* < > 7.5* 8.5* 10.0* HCT 24.4* < > 21.1* 25.1* 29.0* MCV 85 < > 85 87 87 MCH 30.8 < > 30.4 29.4 30.0 MCHC 36.1* < > 35.5 33.9 34.5 PLT 323 < > 349 332 432* NEUTROABS 27.43* -- 15.48* -- 21.52* < > = values in this interval not displayed. BMP: Recent Labs 06/16/23 1806 06/16/23 2126 06/16/23 2351 06/17/23 0406 06/17/23 0806 06/17/23 1131 06/17/23 1734 06/17/23 2343 06/18/23 0432 NA 129* -- < > 129* -- < > 131* 134* 134* K 4.8 -- < > 4.6 -- < > 4.6 4.9 5.1* CL 105 -- < > 105 -- < > 109 109 109 CO2 17* -- < > 18* -- < > 17* 16* 18* BUN 41* -- < > 41* -- < > 40* 37* 35* CREATININE 0.97 -- < > 0.85 -- < > 0.61 0.61 0.63 CALCIUM 8.1* -- < > 8.7 -- < > 8.0* 8.4* 8.5 CAION -- 1.13* -- -- 1.19 -- -- 1.18 -- MG -- -- -- 1.9 -- -- -- -- 1.9 PHOS 7.5* -- -- 6.4* -- -- -- -- 6.1* < > = values in this interval not displayed. Micro: 06/13 OR cultures: mixed GP and GN organisms 06/15 blood cx: pending Imaging: (Please refer to the chart for the full radiology reports including all of the findings and impressions.) XR CHEST PORTABLE LINE PLACEMENT Result Date: 06/17/2023 Slight retraction of pacemaker lead tip, now projecting just beyond tricuspid valve within the right ventricle. ET tube and NG tube as seen previously. Dense left lower lobe atelectasis and probable subsegmental atelectasis at the right lung base. Assessment 52 y.o. female with a history of HTN and T2DM who presented as a transfer from [facility] on 06/12 with necrotizing fasciitis. S/p debridement x2 at OSH and s/p debridement at [facility] on 06/14.Post-operative bradycardic arrest with ROSC after 2 rounds CPP (cardiology suspect 2/2 third degreeHB from manipulation of ETT). Coded a second time following extubation while she was on dexmedetomid ine. Has transvenous pacing wires in place. Plan -Appreciate SICU care -Continue IV meropenem, follow-up OR culture speciations -Plan for OR tomorrow for additional debridement and washout -Otherwise BID vashe wet to dry kerlix dressing changes TAI AZAR MD 06/18/2023 10:26 ACS pager #[phone] Associated attestation - Efraín Rueda MD - 06/18/2023 1406 EDT Attending attestation statement: I saw and examined the patient and agree with the findings and plans as documented. OR yesterday with additional skin debridement and a perirectal collection washout. RTOR Tomorrow for dressing change, may be able to start to primarily close portions of wound. Darien Rueda MD Acute Care Surgery Pager #[phone] * Erniebg Deepthi, RT - 06/18/2023 0820 EDT Respiratory Consult/Progress Note Indications for Respiratory therapy: post extubation WOB Data Vitals: Heart Rate: 81 BPM, Resp: 30, SpO2: 96 % FIO2/O2 Device: O2 Flow Rate (L/min): 40 l/min, , O2 Device: High flow nasal cannula, FIO2 %: 35 % RT Orders: HFNC PRN Q4 AWC vpep or cough assist Protocol Scoring: Bronchodilator/Inhalation Therapy Frequency Bronchodilator - Clinical Indications: No clinical indications Breath Sounds: Any abnormal BS decreased Response: No change / no treatment Pulse: <100 Resp Rate: 26-32 SOB: At rest Total Score: 5 Frequency Based On Total Score: 0-4 = PRN 5-7 = QID 8-10 = Q4H 11-12 = Q2H Airway Clearance Therapy Frequency Airway Clearance - Clinical Indications: No clinical indications Breath Sounds: Rhonchi / crackles Sputum: Small (tsp) / None Consistency: None Cough Effort: Strong/ non-productive Color: None Total Score: 1 Comment: prn Frequency Based On Total Score: 0-3 = PRN 4-6 = QID and PRN 7-9 = Q4H and PRN 10-11 = Q2H and PRN Hyperinflation Therapy Frequency Hyperinflation - Clinical Indications: No clinical indications Breath Sounds: Diminished / crackles Surgery: No X-Ray / Atelectasis: Yes O2 Requirements: 2-4 L above baseline Mobility Status: In bed Total: 9 Comment: HFNC Frequency Based On Total Score: 0-3 = PRN 4-6 = QID and PRN 7-9 = Q4H and PRN 10-12 = Q2H and PRN Action/Events Respiratory events; Patient appears SOB, more so when awake. Patient in pain and also has atelectasis on CXR. Plan to get xray and CT this morning. BBS diminished, coarse. Patient weaned to 30%/30L this afternoon. Briefly increased to 50% and 50L during procedure while laying flat and then weaned back down afterwards. Patient transitioned to 3L NC this evening and tolerating well. WOB only if exerting but settles afterward. Cough assist tolerating but vpep seems to work better for patient. Cough is weak-fair, non-productive but loose. Highly recommend following Q4 for AWC as patient has high risk of deteriorating from respiratory standpoint RT MYKE 06/18/23 * Moo Monique MD - 06/18/2023 0653 EDT SICU Daily Progress Note Admit Date: 06/13/2023 Primary team: ACS CC: NSTI Right Gluteal region Procedures: Soft tissue Debridement RLE gluteal region at OSH Debridement of right buttock, primary repair of rectal injury, 06/13 RTOR for further debridement 06/16 24hr Events: Lactate normalized RTOR for further debridement Cx from OR on 06/13 growing mixed norbert 1U PRBCs given pre-op (prophylactic) Extubated to HFNC Acute chest pain at MN, EKG unremarkable. Got IV Dilaudid 0.5 mg x2, SL nitro x3. Tnn 0.7. ABG ok. Ativan 1 mg PO administered for anxiety Subclavian line drawing air and difficult to push against,CT chest ordered , showed adequate position of the wire. Subjective: She denied pain. Otherwise had recently been medicated with Ativan and dilaudid for a wound dressing change and was too sedated to adequately participate in conversation Objective: Temp: [36.2 ??C (97.1 ??F)-36.8 ??C (98.2 ??F)] , Heart Rate: [62 BPM-101 BPM] , Resp: [12-37] , BP: (103-199)/(54-141) , SpO2: [89 %-100 %] I/O: Current Shift: 06/17 0700 - 06/17 1459 In: 50 Out: 380 [Urine:255; Drains:125] 24 hours: 06/16 0700 - 06/17 0659 In: 1525.3 [I.V.:654.1] Out: 3025 [Urine:2060; Drains:950] Tubes:VUONG, rectal tube Lines: Left Subclavian CVC Infusions/Rates: epi 3 Vent: Mode: SPN-CPAP Rate: 12 bmp Vt 410 mL PS:5 cmH2O PEEP 5 cmH2O FiO2: 35 % Physical Exam: Gen: Awake, no acute distress Resp: breath sounds b/l. CV: S1, S2 without audible murmur, Abd: Protuberant, non tender, non distended : Vuong in place draining clear yellow urine Ext: WWP Neuro: Awakens to voice, symmetric, very hard of hearing Skin/Wound: Large right-sided buttock wound that extends into the gluteal crease. No surrounding erythema or purulent drainage. Dressing CDI Micro: Moderate gram positive and gram negative organisms from surgical cultures New Imaging (w/in 24h): CT CHEST WO CONTRAST Result Date: 06/18/2023 1. Appropriate positioning of the right internal jugular approach central venous sheath containing transvenous pacing wire. 2. Bibasilar consolidations, left greater than right. This most likely reflects atelectasis given volume loss. Evaluation for concurrent pneumonia is limited due to lack of contrast. 3. Small bilateral pleural effusions, left greater than right. 4. Scattered groundglass opacities, predominantly along the mediastinum, may represent small contusions due to resuscitation efforts. 5. Acute nondisplaced sternal body fracture and multiple bilateral acute nondisplaced to minimally displaced rib fractures, also related to resuscitation efforts. 6. Asymmetric skin thickening and left breast edema. Correlate with physical exam. Follow-up with breast care imaging center is recommended if these findings are not felt to be acute. I have personally reviewed the images and the above interpretation and agree with the findings. [id number] XR CHEST PORTABLE 1 VIEW Result Date: 06/18/2023 Interval extubation and removal of NG tube. Transvenous pacemaker wire tip in right ventricular apex. Interval development of left lower lobe atelectasis. Probable developing right lower lobe atelectasis. [id number] XR CHEST PORTABLE LINE PLACEMENT Result Date: 06/17/2023 Slight retraction of pacemaker lead tip, now projecting just beyond tricuspid valve within the right ventricle. ET tube and NG tube as seen previously. Dense left lower lobe atelectasis and probable subsegmental atelectasis at the right lung base. [id number] XR CHEST PORTABLE LINE PLACEMENT Result Date: 06/16/2023 Lines and tubes as described. Improving left lower lobe atelectasis. [id number] XR CHEST PORTABLE LINE PLACEMENT Result Date: 06/16/2023 Improving left lower lobe atelectasis. Endotracheal tube in the midthoracic trachea. Apparent kink of the proximal portion of the subclavian catheter which is likely projectional. [id number] XR CHEST PORTABLE 1 VIEW Result Date: 06/15/2023 1. Endotracheal tube tip terminates at the origin of the proximal right mainstem bronchus, recommend retracting a 3-4 centimeters. There appears to be consolidation or atelectasis of the left lower lobe. 2. Right-sided CVC appropriately positioned, tip at the superior cavoatrial junction. I have per sonally reviewed the images and the above interpretation and agree with the findings. [id number] XR FEEDING TUBE PLACEMENT Result Date: 06/15/2023 Findings/Impression: Portable AP view centered over the lower chest upper abdomen demonstrates thatthe gastroesophageal catheter tip projects over the body of the. The visualized bowel gas pattern is normal. There is left lower lobe lung opacity concerning for pneumonia. This is neither a completeview of the chest nor of the abdomen. If either view is needed, formal films are recommended. [id number] Labs: CBC: Recent Labs 06/16/23 0457 06/16/23 0805 06/17/23 0406 06/17/23 1734 06/18/23 0432 WBC 28.97* < > 20.05* 20.00* 25.26* RBC 2.86* < > 2.47* 2.89* 3.33* HGB 8.8* < > 7.5* 8.5* 10.0* HCT 24.4* < > 21.1* 25.1* 29.0* MCV 85 < > 85 87 87 MCH 30.8 < > 30.4 29.4 30.0 MCHC 36.1* < > 35.5 33.9 34.5 PLT 323 < > 349 332 432* NEUTROABS 27.43* -- 15.48* -- 21.52* < > = values in this interval not displayed. BMP: Recent Labs 06/16/23 1806 06/16/23 2126 06/16/23 2351 06/17/23 0406 06/17/23 0806 06/17/23 1131 06/17/23 1734 06/17/23 2343 06/18/23 0432 NA 129* -- < > 129* -- < > 131* 134* 134* K 4.8 -- < > 4.6 -- < > 4.6 4.9 5.1* CL 105 -- < > 105 -- < > 109 109 109 CO2 17* -- < > 18* -- < > 17* 16* 18* BUN 41* -- < > 41* -- < > 40* 37* 35* CREATININE 0.97 -- < > 0.85 -- < > 0.61 0.61 0.63 CALCIUM 8.1* -- < > 8.7 -- < > 8.0* 8.4* 8.5 CAION -- 1.13* -- -- 1.19 -- -- 1.18 -- MG -- -- -- 1.9 -- -- -- -- 1.9 PHOS 7.5* -- -- 6.4* -- -- -- -- 6.1* < > = values in this interval not displayed. Coags: No results for input(s): PROTIME, INR, PTT in the last 72 hours. LFT: No results for input(s): TBIL, ALKPHOS, AST, ALT, LIPASE, AMYLASE in the last 72 hours. ABG: No results for input(s): PHISTAT, PCOISTAT, POISTAT, POCTCO2, C1XRNBVI, POCFIO2 in the last 72 hours. Cardiac Markers: Recent Labs 06/16/23 1133 06/18/23 0013 06/18/23 0816 TROPONINI 1.370* 0.700* 0.643* Lactic: Recent Labs 06/15/23 1740 06/16/23 0805 LACTICACID 0.7 1.9 Assessment: Della Browning is a 52 y.o. Female with HTN, Diet controlled T2DM here as transfer from [facility] after debridement x2 admitted for NSTI of right gluteal region. SICU team consulted for mechanical ventilation. Patient with likely bradycardic arrest with ROSC after 2 rounds of CPR and 1mg epi, noted transient high degree AV block prior to bradycardic arrest- etiology possibly secondary to recent manipulation of ET tube/high vagal tone. Also received 0.5mg atropine prior to arrest and 2g CaCl, 2 amps bicarb during arrest. Episode of bradycardic cardiac arrest this morning, received around 20 chest compressions with ROSC, was placed on transcutaneous pacer, underwent RSI. Tele noteable for third degree AV katt. Transvenous pacer wire placed with good capture, set to backup rate of 60.RTOR 06/16, now extubated to HFNC on 35%/40L. Plan: Neuro: Significant agitation after extubation, given 2mg ativan with significant relief. Per partner, wokeup ~20 days before admission with left sided weakness but she did not seek medical care for fear of being removed from her home. Pain: Multimodal pain control with Acetaminophen 1000 mg Q6H, PO dilaudid 2-4mg Q3H, robaxin 750 QID Anxiety/agitation: Ativan 1mg Q4H Ketamine for pain discontinued on 06/16 due to possibility of delirium CV: Perry arrest 06/15 AM, transcutaneously paced initially Transvenous pacer backup VVI, now at 40, 37cm depth Cardiac monitoring via cuff Goal SBP >90 and MAP 65 Norepi if needed Cards ongoing conversation about pacer Subclavian line drawing air and difficult to push against,CT chest ordered , showed adequate position. Plan is to place a new IJ line with pacer wire Ordering TTE as one has not been performed yet this admission Pulm: Extubated after OR to HFNC. Currently on 35%/40L Aggressive IS and pulmonary toilet CT showed no evidence of pneumo, did show continuation of bilateral pleural effusions L>R. It also found sternal and multiple nondisplaced and minimally displaced rib fractures and a small mediastinal contusions likely from CPR. FEN/GI: Diet: NPO, will place DAVID as patient is too encephalopathic to safely PO IV PPI BID Protonix Check lytes q24h and replenish PRN, Checking Ical and giving empiric calcium with PRBCs Renal: Trend BUN/Cr, watch UOP Keep Vuong. Heme: Check CBCs, HgB 7.4 from 9. Prepare 2 units PRBCs and transfuse 1 preoperatively Lovenox DVT ppx ID: [id number]: source control with debridements in OR. [facility] cultures with 1/4 bottles growing gram positive cocci in anaerobic bottle Trend WBC and fever curve, WBC trend variable, overall downtrended compared to presentation Abx Meropenem Blood cultures drawn for possible pacemaker placement this week Endo: POC glucose checks q6 Off Insulin gtt, on SSI aspart MSK: Engage PT when able Skin: Pressure ulcer prevention per SICU bundle including monitoring for device- related injuries (which include ETT, OGT, Vuong, A-line board) Wound care per primary team (ACS) Right buttock wound, no other skin concerns from nursing at this time Tubes/Lines: Plan to keep current lines Ppx: SCDs Lovenox chemoppx Code status: Full Code GOC: Patient stating she is feeling done with everything going on. Considering consulting palliative care given expected long course. Daily ICU Checklist Prophylaxis: DVT Prophylaxis: Enoxaparin;SCDs GI Prophylaxis: Not indicated Skin Integrity Risk Factors: Yes Pressure Ulcer / Breakdown Present?: No CAM-ICU: Positive Ventilation/Sedation: Goal RASS: 0 Is there anticipated need of a chest x-ray the next morning of ICU stay?: No Procalcitonin: Currently Following Procalcitonin: No Early Mobility: Activity Order: Activity as tolerated Does The Patient Meet Physiological Criteria For PT Referral: Yes Is The Patient Awake And Able To Participate In Therapy: Yes - Order PT Fluids/Nutrition: Daily Fluid Goal: Even Tube Feedings: (Once David placed) Last Bowel Movement: 06/18/23 Lines: Vascular Access Assessment: Central access indicated Urinary (Vuong) Catheter Assessment: Vuong catheter indicated Communication: Interdisciplinary Items: Patient Eligible For Transfer: No Daily Goals: David, replace central line and wires, maintain on HFNC, lido for sternum Ángel Bustamante MD 06/18/23 10:53 Emergency Medicine Resident, PGY1 SICU House Staff #[phone] (Service Pager) Attestation: I performed or was present during the cooper or critical portions of the visit and participated in the management of the patient on 06/18/2023. I agree with the findings and plan of care documented in the resident's/fellow's note.Extubated to high flow NC last yelena, remains off vent, ketamine gtt stopped, ativan given for anxiety. C/o chest pain last yelena, workup for cardiac source unrevealing. Awake, confused, slow to answer. Transvenous pacing wires in place, nurse reports aspirating air from side port. Will replace cordis and wires. Will place david for enteral feeding. TTE to evaluate heart function. Will give some lasix for diuresis. I participated in the direct delivery of medical care for this patient, whose critical illness impairs one or more vital organ systems such that there is a high probability of imminent or life-threatening deterioration in the patient's condition. Total time spent I spend in the delivery of criticalcare excluding procedures for the date of service was: 45 mins. Moo Monique MD 06/18/2023 14:31 * Emma Marcum, RT - 06/18/2023 0239 EDT Respiratory Consult/Progress Note Indications for Respiratory therapy: WOB post extubation Data Vitals: Heart Rate: 81 BPM, Resp: 26, SpO2: 100 % FIO2/O2 Device: O2 Flow Rate (L/min): 40 l/min, , O2 Device: High flow nasal cannula, FIO2 %: (S) 50 % RT Orders: HFNC - continuous Q4 Eval Protocol Scoring: Bronchodilator/Inhalation Therapy Frequency Bronchodilator - Clinical Indications: No clinical indications Breath Sounds: Any abnormal BS decreased Response: No change / no treatment Pulse: <100 Resp Rate: <18 SOB: None Total Score: 1 Frequency Based On Total Score: 0-4 = PRN 5-7 = QID 8-10 = Q4H 11-12 = Q2H Airway Clearance Therapy Frequency Airway Clearance - Clinical Indications: Productive cough Breath Sounds: Clear / diminished Sputum: Small (tsp) / None Consistency: None Cough Effort: Strong/ productive Color: None Total Score: 1 Comment: prn Frequency Based On Total Score: 0-3 = PRN 4-6 = QID and PRN 7-9 = Q4H and PRN 10-11 = Q2H and PRN Hyperinflation Therapy Frequency Hyperinflation - Clinical Indications: No clinical indications Breath Sounds: Other Surgery: No X-Ray / Atelectasis: No O2 Requirements: O2 at baseline Mobility Status: Mobile / at baseline Total: 1 Comment: prn Frequency Based On Total Score: 0-3 = PRN 4-6 = QID and PRN 7-9 = Q4H and PRN 10-12 = Q2H and PRN Action/Events Respiratory events; 2299 - Assumed care of patient on HFNC 40L/35%. Patient extubated @ 2029 this evening to HFNC. 0039 - 7.32/39/80/21/-6/95% ABG drawn Per MD Valentine following concerns for respiratory failure. Patient c/o 12/04 of chest pain, tachypneic and shallow breathing. Remains on HFNC post gas. 0439 - VBG (in lab results as ABG). 7.28/44/38/22/-6/66% on HFNC 40L/35%. Remains on HFNC post VBG. Response/Results Weaning and Toleration of treatments; RT MARIA ALEJANDRA 06/18/23 * Zahira Butt RT - 06/17/20232044 EDT Respiratory Extubation Note Pre-procedure - The extubation order and correct patient verified. The procedure was coordinated with the RN. Procedure - The patient's oral pharynx and ETT were suctioned for Secretion Amount: Moderate Secretion Color: White, Clear and Secretion Consistency: Thin, Thick. A cuff leak was present. The patientwas extubated and placed on O2 Flow Rate (L/min): 40 l/min O2 Device: High flow nasal cannula. No stridor was noted and the patient was able to produce voice. Comments MD team and RN at bedside Vent D/C Time: 2034 Ventilator days: 2 days Removed by: RT ETT LDA discontinued: Yes [REMOVED] Non-Surgical Airway (Removed) Number of days: 1 [REMOVED] Non-Surgical Airway ETT - cuffed 7.5 (Removed) Number of days: 1 RT KALIN 06/17/23 * Ashleigh Stout, RD - 06/17/2023 1103 EDT Nutrition Assessment Note: Reassessment Admit Date: 06/13/2023 23:23 BACKGROUND DATA Clinical Course Since Last RD Visit: Per 's note today: 52 y.o. female with a history of HTN and T2DM who presented as a transfer from [facility] on 06/12 with necrotizing fasciitis. S/p debridement x2 at OSH and s/p debridement at [facility] on 06/14.Post-operative bradycardic arrest with ROSC after 2 rounds CPP (cardiology suspect 2/2 third degreeHB from manipulation of ETT). Coded a second time following extubation while she was on dexmedetomid ine. Has transvenous pacing wires in place. Procedure: Nec fasc debridement x2 (OSH) Nec fasc debridement, repair rectal injury (06/14) Chief Complaint: NSTI 24 Hour Events: Clinda and vancomycin d/c'd Coded again, on dexmedetomidine; reintubated and pacing wires placed Started on ketamine gtt Remains intubated and sedated Subjective: Pt. Intubated/sedated Current Nutrition Orders: NPO Tube feeding order: promote at 12 ml/h continuous Provides: 288 calories, and 18 gram protein Enteral Free Water: 60 ml every one hour Protein supplements: 60 ml pro source TID:360 calories and 90 gram protein Sedation includes: propofol @ 15.5- 31 ml/h ml/h this is: 607 calories per day Nutrition Focused Physical Exam Subcutaneous Fat Assessment Orbital Region: Well-nourished (06/14/23 1520) Cheek Region: Well-nourished (06/14/23 1520) Upper Arm Region: Well-nourished (06/14/23 1520) Midaxillary Line: Not assessed (06/14/23 1520) Muscle Mass Assessment Congregation Region: Well-nourished (06/14/23 1520) Clavicle Region: Well-nourished (06/14/23 1520) Shoulder/Acromion/Clavicle Region: Well-nourished (06/14/23 1520) Scapula Region: Not assessed (06/14/23 1520) Hand Region: Not assessed (06/14/23 1520) Thigh/Patellar Region: Not assessed (06/14/23 1520) Calf Region: Not assessed (06/14/23 152) NFPE Assessment Summary of Fat Wasting: No significant evidence of wasting (06/14/23 1520) Summary of Muscle Wasting: No significant evidence of wasting (06/14/23 1520) Physical Findings: Pulmonary: intubated, sedated Digestive Systems: Last BM 06/16 Dentition: Teeth: Missing teeth, Dentures upper, Dentures lower per flowsheets Edema: +1 all extremities. Skin: R gluteal wound dressing clean/dry/intact. Deferred dressing change this morning (plan for ORto) Allergies on file: Aspirin, Cymbalta [duloxetine], Lyrica [pregabalin], and Penicillins Temp: [36.6 ??C (97.8 ??F)-36.9 ??C (98.5 ??F)] Glen: 6.5 L/min Anthropometrics: Height: 160 cm (63) Wt Readings from Last 6 Encounters: 06/14/23 86.2 kg (190 lb) Weight Change: no known change. Pertinent Medications: Current Facility-Administered Medications Medication Route Frequency acetaminophen (OFIRMEV) IV solution 1,000 mg intravenous Now acetaminophen (TYLENOL) solution unit dose cup 995 mg oral Q6H alteplase (CATHFLO ACTIVASE) injection 2 mg intercatheter PRN amino acids-protein hydrolysate (PRO SOURCE NOCARB) packet 60 mL per ng tube TID enoxaparin (LOVENOX) injection 40 mg subcutaneous DAILY Free Water (bolus dose) 60 mL per g tube Q1H glucagon injection 1 mg intramuscular PRN HYDROmorphone (PF) (DILAUDID) 0.5 mg/0.5 mL syringe 0.25-0.5 mg intravenous Q2H PRN insulin aspart U-100 (NOVOLOG FLEXPEN) injection 0-20 Units subcutaneous Q6H ketAMINE (KETALAR) 250 mg in NaCl 0.9% 25 mL syringe intravenous CONTINUOUS ketAMINE in NaCl, iso-osmotic (KETALAR) 50 mg/5 mL (10 mg/mL) IV injection lidocaine 5 % (LIDODERM) patch 2 Patch transdermal DAILY meropenem (MERREM) 1 g in sodium chloride (NS DDDS) 0.9% 50 ml IVPB intravenous Q8H methocarbamoL (ROBAXIN) tablet 750 mg oral QID Multivitamins with minerals + ferrous gluconate (CENTRUM) oral solution 15 mL feeding tube DAILY naloxone (NARCAN) injection 0.1 mg intravenous PRN OLANZapine (ZYPREXA) tablet 10 mg oral AT BEDTIME PRN oxyCODONE (ROXICODONE) immediate release tablet 5-10 mg oral Q4H PRN pantoprazole (PROTONIX) injection 40 mg intravenous BID papain-alpha amylase-cellulase (CLOG ZAPPER) 2-5 mL feeding tube PRN polyethylene glycol 3350 (MIRALAX) packet 17 g per ng tube DAILY promote per g tube CONTINUOUS propOFol (DIPRIVAN) 1000 mg in 100 mL infusion intravenous CONTINUOUS senna (SENOKOT) tablet 2 Tablet oral QHS sodium hypochlorite (DAKINS) 0.25 % external solution topical BID Pertinent Labs: Relevant Labs: Lab Results Component Value Date WBC 20.05 (H) 06/17/2023 RBC 2.47 (L) 06/17/2023 HGB 7.5 (L) 06/17/2023 HCT 21.1 (L) 06/17/2023 MCV 85 06/17/2023 MCH 30.4 06/17/2023 PLT 349 06/17/2023 NA 129 (L) 06/17/2023 K 4.6 06/17/2023 CL 105 06/17/2023 CO2 18 (L) 06/17/2023 BUN 41 (H) 06/17/2023 CREATININE 0.85 06/17/2023 CALCIUM 8.7 06/17/2023 MG 1.9 06/17/2023 PHOS 6.4 (H) 06/17/2023 Lab Results Component Value Date/Time HGBA1C 8.2 (H) 06/14/2023 04:55 GLUCOSEPOC 150 (H) 06/17/2023 06:09 GLUCOSEPOC 139 (H) 06/16/2023 23:50 GLUCOSEPOC 109 (H) 06/16/2023 18:08 GLUCOSEPOC 200 (H) 06/16/2023 11:36 GLUCOSEPOC 199 (H) 06/16/2023 10:57 No results found for: CRP, LABALBU, PALBS, HIZH96FAT Estimated Nutrition Needs: Using 86.2 kg PSU 2003b (98 degrees F and MVE average of 6.5) vs MSJ x 1.0 = 1496 vs 1441 kcals/day 2.0 g/kg protein (using IBW of 52.4 kg) = 105 g protein/day Estimated Nutrition Intake: 89 ml promote yesterday ASSESSMENT: Pt. Is intubated, receiving propofol for sedation providing Peptamen intense VHP @ 35 ml/h with 60 ml pro source per day to provide: 960 calories and 105 gram protein. This combined with propofol meets calorie and protein needs. Provide supplemental vitamin Greenhouse Assistant meet needs for healing. Pt. Also in need of supplemental zinc d/t size of wound. Avoid use of tylenol solution which will yield Sorbitol-based osmotic diarrhea. Phosphorus is elevated but down trending. No role for phosphorus binder at this time. Hyponatremia noted, team considering changing free water to NS. Trend electrolyte. Nutrition Risk Level: High (1) MEDICAL NUTRITION THERAPY - UPDATED PLAN RD has order writing privileges and will modify the following orders: Peptamen intense VHP @ 35 ml/lh continuous 30 ml pro source BID Recommendations requiring MD orders: Adjust enteral free water as needed Please order enteral supplements: 500 mg vitamin C BID 220 mg ZnSo4 daily x 7 days Include magnesium and phosphorus with daily labs Avoid use of tylenol tablets, use tylenol tablets instead Nutrition to advise/suggest changes to tube feeding plan as needed based on tube feeding tolerance,labs and changes in medical condition. Ashleigh Stout RD, CD (Call PAS or use [employer] ([email or web address]) to page RD covering this unit) * Tai Azar MD - 06/17/2023 0940 EDT Surgery Progress Note Service Date: 06/17/2023 Admit Date: 06/13/2023 23:23 Procedure: Nec fasc debridement x2 (OSH) Nec fasc debridement, repair rectal injury (06/14) Chief Complaint: NSTI 24 Hour Events: Clinda and vancomycin d/c'd Coded again, on dexmedetomidine; reintubated and pacing wires placed Started on ketamine gtt Remains intubated and sedated Subjective Intubated, sedated Objective Vital Signs Temp: [36.6 ??C (97.8 ??F)-36.9 ??C (98.4 ??F)] , Heart Rate: [70 BPM-107 BPM] , Pulse: --, Pulse From Oximetry: [70 BPM-107 BPM] , Resp: [11-] , BP: (97-162)/(49-99) , SpO2: [92 %-100 %] VCAC Gtts: ketamine, propofol LDAs: transvenous pacing wires, CVC, ETT, Vuong Physical Exam General Appearance: intubated, sedated Lung: mechanical breath sounds Heart: regular rate and rhythm Abdomen: soft, nontender, rectal tube in place Extremities: Warm and well perfused, mild edema Wound: R gluteal wound dressing clean/dry/intact. Deferred dressing change this morning (plan for OR today) Labs: CBC: Recent Labs 06/15/23 1740 06/16/23 0457 06/16/23 0805 06/17/23 0406 WBC 36.70* 28.97* 35.99* 20.05* RBC 3.25* 2.86* 3.11* 2.47* HGB 10.0* 8.8* 9.4* 7.5* HCT 27.5* 24.4* 27.4* 21.1* MCV 85 85 88 85 MCH 30.8 30.8 30.2 30.4 MCHC 36.4* 36.1* 34.3 35.5 PLT 352 323 370 349 NEUTROABS 28.41* 27.43* -- 15.48* BMP: Recent Labs 06/15/23 0510 06/15/23 0721 06/16/23 0805 06/16/23 1133 06/16/23 1806 06/16/23 2126 06/16/23 2351 06/17/23 0406 06/17/23 0806 NA 125* < > 129* < > 129* -- 128* 129* -- K 4.3 < > 5.3* < > 4.8 -- 4.7 4.6 -- CL 102 < > 103 < > 105 -- 105 105 -- CO2 16* < > 17* < > 17* -- 17* 18* -- BUN 38* < > 39* < > 41* -- 41* 41* -- CREATININE 0.97 < > 1.17* < > 0.97 -- 0.87 0.85 -- CALCIUM 7.5* < > 9.0 < > 8.1* -- 9.0 8.7 -- CAION -- < > 1.24 -- -- 1.13* -- -- 1.19 MG 1.9 -- -- -- -- -- -- 1.9 -- PHOS 6.0* -- 8.0* -- 7.5* -- -- 6.4* -- < > = values in this interval not displayed. Micro: 06/13 OR cultures: mixed GP and GN organisms 06/15 blood cx: pending Imaging: (Please refer to the chart for the full radiology reports including all of the findings and impressions.) XR CHEST PORTABLE LINE PLACEMENT Result Date: 06/17/2023 Slight retraction of pacemaker lead tip, now projecting just beyond tricuspid valve within the right ventricle. ET tube and NG tube as seen previously. Dense left lower lobe atelectasis and probable subsegmental atelectasis at the right lung base. Assessment 52 y.o. female with a history of HTN and T2DM who presented as a transfer from [facility] on 06/12 with necrotizing fasciitis. S/p debridement x2 at OSH and s/p debridement at [facility] on 06/14.Post-operative bradycardic arrest with ROSC after 2 rounds CPP (cardiology suspect 2/2 third degreeHB from manipulation of ETT). Coded a second time following extubation while she was on dexmedetomid ine. Has transvenous pacing wires in place. Plan -Appreciate SICU care -Continue IV meropenem, follow-up OR culture speciations -Plan for OR today for washout/debridement - please transfuse 1 u prbcs; 2 u prbcs to hold for OR -Otherwise BID vashe wet to dry kerlix dressing changes TAI AZAR MD 06/17/2023 9:40 ACS pager #[phone] * Deepthi Mujica RT - 06/17/2023 0838 EDT Respiratory Progress Note Indications for Respiratory therapy: intubated for airway protection Data Vitals: Heart Rate: 72 BPM, Resp: 17, SpO2: 100 % FIO2/O2 Device: O2 Flow Rate (L/min): 3 l/min, , O2 Device: Intubated, FIO2 %: 45 % RT Orders: AC 410X12+8 Action/Events Respiratory events; Patient assessed this morning. BBS clear/diminished. Suctioned ETT for small clear/white secretions. No weaning at this time d/t patient returning to OR today. No ETT associated wounds. Response/Results Weaning and Toleration of treatments; Assess for weaning when patient returns from OR RT MYKE 06/17/23 * Moo Monique MD - 06/17/2023 0703 EDT SICU Daily Progress Note Admit Date: 06/13/2023 Primary team: ACS CC: NSTI Right Gluteal region Procedures: Soft tissue Debridement RLE gluteal region at OSH Debridement of right buttock, primary repair of rectal injury, 06/13 24hr Events: Clinda stopped per ACS Bradycardic arrest-> 20 compressions with ROSC, found to have third degree AV block -> transcutaneously paced -> RSI -> new subclavian placed -> transitioned to transvenous pacing Tube feeds started Trop normalized Free water flush changed to NaCl flush 60 cc q1h Ketamine drip started for pain 1/4 blood cultures from [facility] growing gram postive cocci in anaerobic bottle on the , nogrowth yet on plate over 2 days Subjective: Intubated and sedated, opens eyes to voice Objective: Temp: [36.6 ??C (97.8 ??F)-36.9 ??C (98.5 ??F)] , Heart Rate: [70 BPM-91 BPM] , Resp: [11-23] , BP:(97-162)/(49-99) , SpO2: [92 %-100 %] I/O: Current Shift: 06/16 0700 - 06/16 1459 In: 580.9 [I.V.:92.9] Out: 1335 [Urine:385; Drains:950] 24 hours: 06/15 07 - 06/16 0659 In: 1982.6 [I.V.:659.6] Out: 2800 [Urine:2160; Drains:440] Tubes:VUONG, rectal tube Lines: Left Subclavian CVC Infusions/Rates: epi 3 Vent: Mode: VC-AC Rate: 12 bmp Vt 410 mL PS:5 cmH2O PEEP 8 cmH2O FiO2: 40 % Physical Exam: Gen: intubated and sedated Resp: breath sounds b/l. CV: S1, S1 without audible murmur, Abd: Protuberant, non tender, non distended : Vuong in place draining clear yellow urine Ext: WWP Neuro: intubated and sedated, opened eyes to voice, does not follow commands, intermittently withdraws to pain. Skin/Wound: Proximal right lower extremity wound without surrounding crepitus. Dressing CDI Micro: Moderate gram positive and gram negative organisms from surgical cultures New Imaging (w/in 24h): XR CHEST PORTABLE LINE PLACEMENT Result Date: 06/17/2023 Slight retraction of pacemaker lead tip, now projecting just beyond tricuspid valve within the right ventricle. ET tube and NG tube as seen previously. Dense left lower lobe atelectasis and probable subsegmental atelectasis at the right lung base. [id number] XR CHEST PORTABLE LINE PLACEMENT Result Date: 06/16/2023 Lines and tubes as described. Improving left lower lobe atelectasis. [id number] XR CHEST PORTABLE LINE PLACEMENT Result Date: 06/16/2023 Improving left lower lobe atelectasis. Endotracheal tube in the midthoracic trachea. Apparent kink of the proximal portion of the subclavian catheter which is likely projectional. [id number] XR CHEST PORTABLE 1 VIEW Result Date: 06/15/2023 1. Endotracheal tube tip terminates at the origin of the proximal right mainstem bronchus, recommend retracting a 3-4 centimeters. There appears to be consolidation or atelectasis of the left lower lobe. 2. Right-sided CVC appropriately positioned, tip at the superior cavoatrial junction. I have per sonally reviewed the images and the above interpretation and agree with the findings. [id number] XR FEEDING TUBE PLACEMENT Result Date: 06/15/2023 Findings/Impression: Portable AP view centered over the lower chest upper abdomen demonstrates thatthe gastroesophageal catheter tip projects over the body of the. The visualized bowel gas pattern is normal. There is left lower lobe lung opacity concerning for pneumonia. This is neither a completeview of the chest nor of the abdomen. If either view is needed, formal films are recommended. [id number] Labs: CBC: Recent Labs 06/15/23 1740 06/16/23 0457 06/16/23 0805 06/17/23 0406 WBC 36.70* 28.97* 35.99* 20.05* RBC 3.25* 2.86* 3.11* 2.47* HGB 10.0* 8.8* 9.4* 7.5* HCT 27.5* 24.4* 27.4* 21.1* MCV 85 85 88 85 MCH 30.8 30.8 30.2 30.4 MCHC 36.4* 36.1* 34.3 35.5 PLT 352 323 370 349 NEUTROABS 28.41* 27.43* -- 15.48* BMP: Recent Labs 06/15/23 0510 06/15/23 0721 06/16/23 0805 06/16/23 1133 06/16/23 1806 06/16/23 2126 06/16/23 2351 06/17/23 0406 06/17/23 0806 NA 125* < > 129* < > 129* -- 128* 129* -- K 4.3 < > 5.3* < > 4.8 -- 4.7 4.6 -- CL 102 < > 103 < > 105 -- 105 105 -- CO2 16* < > 17* < > 17* -- 17* 18* -- BUN 38* < > 39* < > 41* -- 41* 41* -- CREATININE 0.97 < > 1.17* < > 0.97 -- 0.87 0.85 -- CALCIUM 7.5* < > 9.0 < > 8.1* -- 9.0 8.7 -- CAION -- < > 1.24 -- -- 1.13* -- -- 1.19 MG 1.9 -- -- -- -- -- -- 1.9 -- PHOS 6.0* -- 8.0* -- 7.5* -- -- 6.4* -- < > = values in this interval not displayed. Coags: Recent Labs 06/15/23 0110 PROTIME 11.4 INR 1.0 PTT 27 LFT: No results for input(s): TBIL, ALKPHOS, AST, ALT, LIPASE, AMYLASE in the last 72 hours. ABG: No results for input(s): PHISTAT, PCOISTAT, POISTAT, POCTCO2, G0NVVZHU, POCFIO2 in the last 72 hours. Cardiac Markers: Recent Labs 06/16/23 0551 06/16/23 1133 TROPONINI 2.000* 1.370* Lactic: Recent Labs 06/15/23 0510 06/15/23 1740 06/16/23 0805 LACTICACID 0.9 0.7 1.9 Assessment: Della Browning is a 52 y.o. Female with HTN, Diet controlled T2DM here as transfer from [facility] after debridement x2 admitted for NSTI of right gluteal region. SICU team consulted for mechanical ventilation. Patient with likely bradycardic arrest with ROSC after 2 rounds of CPR and 1mg epi, noted transient high degree AV block prior to bradycardic arrest- etiology possibly secondary to recent manipulation of ET tube/high vagal tone. Also received 0.5mg atropine prior to arrest and 2g CaCl, 2 amps bicarb during arrest. Episode of bradycardic cardiac arrest this morning, received around 20 chest compressions with ROSC, was placed on transcutaneous pacer, underwent RSI. Tele noteable for third degree AV katt. Transvenous pacer wire placed with good capture, set to backup rate of 60.Plans for RTOR 06/16. Plan: Neuro: Pain: Multimodal pain control with Acetaminophen, oxycodone, robaxin Anxiety/agitation: Atarax Wean precedex as able Zyprexa prn Per partner, woke up ~20 days before admission with left sided weakness but she did not seek medical care for fear of being removed from her home Ketamine for pain CV: perry arrest 06/15 AM, transcutaneously paced initially Transvenous pacer backup VVI at 60 Cardiac monitoring via cuff Goal SBP >90 and MAP 65 Norepi if needed Cards ongoing conversation about pacer Pulm: Aggressive IS and pulmonary toilet Mechanical ventilation, 410 cc, 45%, RR 12, PEEP 8,will aim to use minimal vent settings and promote respiration, staying on VCAC until after OR FEN/GI: Diet: NPO IV PPI BID Protonix Tube feeds started 06/15 Check lytes q12h and replenish PRN, Na high 120s, Free water changed to saline 60cc/hr Checking Ical and giving empiric calcium with PRBCs Renal: Trend BUN/Cr, watch UOP Keep Vuong. Heme: Check CBCs, HgB 7.4 from 9. Prepare 2 units PRBCs and transfuse 1 preoperatively Lovenox DVT ppx ID: Trend WBC and fever curve, WBC downtrending 20 from 35 Abx Meropenem Blood cultures drawn for for possible pacemaker placement this week [employer] cultures with 1/4 bottles growing gram positive cocci in anaerobic bottle Endo: POC glucose checks q6 Off Insulin gtt, on SSI aspart MSK: Engage PT when able Skin: Pressure ulcer prevention per SICU bundle including monitoring for device- related injuries (which include ETT, OGT, Vuong, A-line board) Wound care per primary team (ACS) Right buttock wound, no other skin concerns from nursing at this time Tubes/Lines: Plan to keep current lines Ppx: SCDs Lovenox chemoppx IV Protonix BID Code status: Full Code Daily ICU Checklist Prophylaxis: DVT Prophylaxis: Enoxaparin;SCDs GI Prophylaxis: Yes Skin Integrity Risk Factors: Yes Pressure Ulcer / Breakdown Present?: No (NSTI) CAM-ICU: Unable to assess Ventilation/Sedation: Goal RASS: -2 Daily Awakening Performed: Contraindicated Is there anticipated need of a chest x-ray the next morning of ICU stay?: No Procalcitonin: Currently Following Procalcitonin: No Early Mobility: Activity Order: Activity as tolerated Does The Patient Meet Physiological Criteria For PT Referral: No Early Mobilization Exceptions: Lack of secure airway Is The Patient Awake And Able To Participate In Therapy: No - Will reassess in 8 hours Fluids/Nutrition: Daily Fluid Goal: Even Tube Feedings: No Last Bowel Movement: 06/17/23 Lines: Vascular Access Assessment: Central access indicated Urinary (Vuong) Catheter Assessment: Vuong catheter indicated Communication: Interdisciplinary Items: Patient Eligible For Transfer: No Off Unit Testing / OR: OR Daily Goals: OR today, monitor HR. Ángel Bustamante MD 06/17/23 11:25 Emergency Medicine Resident, PGY1 SICU House Staff #[phone] (Service Pager) Attestation: I performed or was present during the cooper or critical portions of the visit and participated in the management of the patient on 06/17/2023. I agree with the findings and plan of care documented in the resident's/fellow's note. Another episode of complete heart block yest leading to bradycardic arrest. Intubated and transvenous pacing wires placed. Currently intubated, sedated, opens eyes to voice, not currently paced. Ketamine gtt started for pain control yest, increased BM's with rectal tube in place but given lactulose yest. Acute blood loss anemia, getting 1 unit PRBC's this am. Plan for return to OR later today for further debridement. I participated in the direct delivery of medical care for this patient, whose critical illness impairs one or more vital organ systems such that there is a high probability of imminent or life-threatening deterioration in the patient's condition. Total time spent I spend in the delivery of criticalcare excluding procedures for the date of service was: 35 mins Moo Monique MD 06/17/2023 13:00 * Jona Ocampo, RT - 06/17/2023 0425 EDT Respiratory Progress Note Indications for Respiratory therapy: vent Data Vitals: Heart Rate: 73 BPM, Resp: 12, SpO2: 100 % FIO2/O2 Device: O2 Flow Rate (L/min): 3 l/min, , O2 Device: Intubated, 40% RT Orders: VC-410 x 12 +8 Action/Events Respiratory events; Pt remained intubated on vent settings above as ordered, no acute resp events tonight BBS clear to coarse suctioning small/mod white clear secretions. AM VBG done results 7.3040 -6 Wean held this AM plan for pt to OR today. Response/Results Weaning and Toleration of treatments; Will continue to follow RT BRAYDON 06/17/23 * Danya Tinoco, RN - 06/16/2023 2530 EDT Data: Pt admitted 06/12 after debridement x2 for NSTI of right gluteal region. S/p debridement &rectal injury repair (06/13). PEA arrest on 06/14. At start of shift pt A&Ox2-3 (intermittent confusion on place/situation), BALTAZAR, follows commands, & PERRL. Very restless/anxious. SR w/ 1st degree HB on tele. Bipap on. Vuong in place. Rectal tube in place. Precedex at 0.3. SBP goal >90. MAP goal >65. Action: 0801 Perry arrest, 1/2 round compressions, returned. 0802 Perry arrest, 1/2 round compressions, returned. Pacing pads placed & paced to 80 bpm. 0808 Epi started at 4, dex turned off. 0818 Epi turned down to 3. 0820 Levo started at 2. ~0830 Pt intubated- see MD note. 0835 Prop started. 0840 Levo turned off. ~1030 Placement of right subclavian central line w/ transvenous pacer wire by MD at bedside. 1050 Epi turned off. Scheduled meds given per APR. PRN dilaudid & oxycodone given for agitation. Q2h turns as tolerated. Q6h BMP labs. Q6h glucose checks. Wound dressing change done at bedside by MD. Tube feeds started. Response: Transvenous pacer wires VVI at 60- intermittently pacing. VC-AC vent mode- see RT note. Titrating prop as tolerated. Plan to return to OR tomorrow for wound debridement. Blood cultures drawn for possible pacemaker placement this week. Prop at 60. DANYA TINOCO RN 06/16/2023 17:35 * Chato Patel MD - 06/16/2023 0947 EDT Surgery Progress Note Service Date: 06/16/2023 Admit Date: 06/13/2023 23:23 Procedure: Nec fasc debridement x2 (OSH) Nec fasc debridement, repair rectal injury (06/14) Chief Complaint: left perineal nec fasc 24 Hour Events: OR for above Post-op bradycardic arrest, appeared to be in complete heartblock, cards evaluated, presumed vagal arrest Extubated to HFNC Precedex for agitation Bradycardia and subsequent arrest this am Subjective Was on bipap and sedated this am when I evaluated her, subsequently intubated Objective Vital Signs Temp: [36.5 ??C (97.7 ??F)-36.9 ??C (98.4 ??F)] , Heart Rate: [0 BPM-109 BPM] , Pulse: --, Pulse From Oximetry: [53 BPM-113 BPM] , Resp: [0-52] , BP: (69-167)/(33-112) , SpO2: [64 %-100 %] Physical Exam General Appearance: alert, cooperative, no distress Lung: non labored breathing Heart: regular rate and rhythm Abdomen: soft, nontender, rectal tube in place Extremities: Warm and well perfused, mild edema Wound: R gluteal wound dressing clean/dry/intact. Deferred dressing change this morning (plan for change with attending later today) Assessment 52 y.o. female with a history of HTN and T2DM who presented as a transfer from [facility] on 06/12 with necrotizing fasciitis. S/p debridement x2 at OSH and s/p debridement at [facility] on 06/14.Post-operative bradycardic arrest with ROSC after 2 rounds CPP (cardiology suspect 2/2 third degreeHB from manipulation of ETT). Plan -Appreciate SICU care -Continue Vanc/Clinda/Meropenem -potential debridement today (if stable) otherwise, plan for tomorrow -will perform dressing change CHATO PATEL MD 06/16/2023 9:47 * Teresita Alegre RT - 06/16/2023 0901 EDT Respiratory Endotracheal Intubation or LMA placement This procedure occurred Date: 06/16/23 Time: 0835 Indication for advanced airway placement respiratory failure. The patient was pre-oxygenated via BIPAP 15/10 100% . Intubation procedure performed by Bella. Airway type and size eduardo yi 7.5 cuffed. Airway placed with blade type and size mac 3 glidescope under direct visualization of the vocal cords in one attempt. Post procedure lung sounds were noted bilaterally and without air sounds in the abdomen. Either colormetric or EtCO2 monitor were used to confirm placement. Airway taped at 23 teeth. RT LORELEI 06/16/23 * Reza Brito MD - 06/16/2023 0845 EDT SICU Daily Progress Note Admit Date: 06/13/2023 Primary team: MAIRA CC: NSTI Right Gluteal region Procedures: Soft tissue Debridement RLE gluteal region at OSH Debridement of right buttock, primary repair of rectal injury, 06/13 24hr Events: Extubated to HFNC Precedex for agitation Small norepi requirement intermittently, slightly hypotensive especially with positioning 500cc bolus, not fluid responsive mIVF dc'd Started BiPAP for slight respiratory acidosis and increased work of breathing, both improved NGT removed Vancomycin discontinued, MRSA neg Prn zyprexa added for agitation [place] removed Central chest pain in morning, EKG and trop obtained Subjective: Intubated and sedated. Objective: Temp: [36.5 ??C (97.7 ??F)-36.9 ??C (98.4 ??F)] , Heart Rate: [0 BPM-109 BPM] , Resp: [0-52] , BP: (69-167)/(33-112) , SpO2: [64 %-100 %] I/O: Current Shift: 06/15 699 - 06/15 1459 In: 112.2 [I.V.:62.2] Out: 400 [Urine:300] 24 hours: 06/14 07 - 06/15 0659 In: 2209.1 [I.V.:909.1] Out: 1434 [Urine:1049; Drains:225] Tubes:VUONG, rectal tube Lines: Left Subclavian CVC Infusions/Rates: epi 3 Vent: Mode: VC-AC Rate: (S) 12 bmp Vt 410 mL PS:5 cmH2O PEEP 8 cmH2O FiO2: 40 % Physical Exam: Gen: intubated and sedated Resp: breath sounds b/l. CV: S1, S1 without audible murmur, Abd: Protuberant, non tender, non distended : Vuong in place draining clear yellow urine Ext: WWP Neuro: intubated and sedated Skin/Wound: Proximal right lower extremity wound without surrounding crepitus. Dressing CDI Micro: Moderate gram positive and gram negative organisms from surgical cultures New Imaging (w/in 24h): XR CHEST PORTABLE LINE PLACEMENT Result Date: 06/16/2023 Lines and tubes as described. Improving left lower lobe atelectasis. [id number] XR CHEST PORTABLE LINE PLACEMENT Result Date: 06/16/2023 Improving left lower lobe atelectasis. Endotracheal tube in the midthoracic trachea. Apparent kink of the proximal portion of the subclavian catheter which is likely projectional. [id number] XR CHEST PORTABLE 1 VIEW Result Date: 06/15/2023 1. Endotracheal tube tip terminates at the origin of the proximal right mainstem bronchus, recommend retracting a 3-4 centimeters. There appears to be consolidation or atelectasis of the left lower lobe. 2. Right-sided CVC appropriately positioned, tip at the superior cavoatrial junction. I have per sonally reviewed the images and the above interpretation and agree with the findings. [id number] XR FEEDING TUBE PLACEMENT Result Date: 06/15/2023 Findings/Impression: Portable AP view centered over the lower chest upper abdomen demonstrates thatthe gastroesophageal catheter tip projects over the body of the. The visualized bowel gas pattern is normal. There is left lower lobe lung opacity concerning for pneumonia. This is neither a completeview of the chest nor of the abdomen. If either view is needed, formal films are recommended. [id number] Labs: CBC: Recent Labs 06/15/23 0510 06/15/23 1740 06/16/23 0457 06/16/23 0805 WBC 38.40* 36.70* 28.97* 35.99* RBC 3.24* 3.25* 2.86* 3.11* HGB 9.9* 10.0* 8.8* 9.4* HCT 27.0* 27.5* 24.4* 27.4* MCV 83 85 85 88 MCH 30.6 30.8 30.8 30.2 MCHC 36.7* 36.4* 36.1* 34.3 PLT 329 352 323 370 NEUTROABS 35.40* 28.41* 27.43* -- BMP: Recent Labs 06/15/23 0510 06/15/23 0721 06/15/23 1149 06/15/23 1152 06/15/23 1740 06/16/23 0015 06/16/23 0457 06/16/23 0805 NA 125* -- < > -- < > 130* 129* 129* K 4.3 -- < > -- < > 4.7 4.9 5.3* CL 102 -- < > -- < > 103 103 103 CO2 16* -- < > -- < > 16* 16* 17* BUN 38* -- < > -- < > 37* 38* 39* CREATININE 0.97 -- < > -- < > 1.09* 1.05* 1.17* CALCIUM 7.5* -- < > -- < > 8.5 8.3* 9.0 CAION -- 1.05* -- 1.22 -- -- -- 1.24 MG 1.9 -- -- -- -- -- -- -- PHOS 6.0* -- -- -- -- -- -- 8.0* < > = values in this interval not displayed. Coags: Recent Labs 06/15/23 0110 PROTIME 11.4 INR 1.0 PTT 27 LFT: No results for input(s): TBIL, ALKPHOS, AST, ALT, LIPASE, AMYLASE in the last 72 hours. ABG: No results for input(s): PHISTAT, PCOISTAT, POISTAT, POCTCO2, Z2OTWAOB, POCFIO2 in the last 72 hours. Cardiac Markers: Recent Labs 06/16/23 0551 TROPONINI 2.000* Lactic: Recent Labs 06/15/23 0510 06/15/23 1740 06/16/23 0805 LACTICACID 0.9 0.7 1.9 Assessment: Della Browning is a 52 y.o. Female with HTN, Diet controlled T2DM, and NSTI of right gluteal region, here as transfer from [facility] after debridement x2 admitted for NSTI. SICU team consultedfor mechanical ventilation. Patient with likely bradycardic arrest with ROSC after 2 rounds of CPR and 1mg epi, noted transient high degree AV block prior to bradycardic arrest- etiology possibly secondary to recent manipulation of ET tube/high vagal tone. Also received 0.5mg atropine prior to arrest and 2g CaCl, 2 amps bicarb during arrest. Now extubated and tolerating BiPAP/HFNC. Episode of bradycardic cardiac arrest this morning, received around 20 chest compressions with ROSC, was placed ontranscutaneous pacer, underwent RSI. Tele noteable for third degree AV katt. Transvenous pacer wireplaced with good capture, set to backup rate of 60. Plans for RTOR tomorrow 06/16. Plan: Neuro: Pain: Multimodal pain control with Acetaminophen, oxycodone, robaxin Anxiety/agitation: Atarax Wean precedex as able Zyprexa prn Per partner, woke up ~20 days before admission with left sided weakness but she did not seek medical care for fear of being removed from her home CV: perry arrest this AM, transcutaneously paced Transvenous pacer VVI at 60 Cardiac monitoring via cuff Goal SBP >90 and MAP 65 Epi for chronotropy, will wean as able Norepi if needed Pulm: Aggressive IS and pulmonary toilet Mechanical ventilation, will aim to use minimal vent settings and promote respiration FEN/GI: Diet: NPO IV PPI BID Protonix Check lytes q6h and replenish PRN Renal: Trend BUN/Cr, watch UOP Keep Vuong. Heme: Check CBCs Lovenox DVT ppx ID: Trend WBC and fever curve Abx Meropenem, Clynda [phone] Discontinued vanc, not MRSA positive Blood cultures for possible pacemaker placement this week Endo: POC glucose checks q1 and Insulin gtt MSK: Engage PT when able Skin: Pressure ulcer prevention per SICU bundle including monitoring for device- related injuries (which include ETT, OGT, Vuong, A-line board) Wound care per primary team (ACS) Right buttock wound, no other skin concerns from nursing at this time Tubes/Lines: Plan to keep current lines Ppx: SCDs Lovenox chemoppx IV Protonix BID Code status: Full Code Daily ICU Checklist Prophylaxis: DVT Prophylaxis: Enoxaparin;SCDs GI Prophylaxis: Yes Skin Integrity Risk Factors: Yes Pressure Ulcer / Breakdown Present?: No CAM-ICU: Unable to assess Ventilation/Sedation: Weaning Assessment: (not attempted) Goal RASS: -2 Daily Awakening Performed: Contraindicated Awakening Exception: Severe agitation Is there anticipated need of a chest x-ray the next morning of ICU stay?: No Procalcitonin: Currently Following Procalcitonin: No Early Mobility: Does The Patient Meet Physiological Criteria For PT Referral: No Early Mobilization Exceptions: Lack of secure airway Is The Patient Awake And Able To Participate In Therapy: No - Will reassess in 8 hours Fluids/Nutrition: Daily Fluid Goal: Even Tube Feedings: No Last Bowel Movement: 06/15/23 Lines: Vascular Access Assessment: Central access indicated Urinary (Vuong) Catheter Assessment: Vuong catheter indicated Communication: Updates: Family updated today Interdisciplinary Items: Patient Eligible For Transfer: No Daily Goals: control arrythmia REZA BRITO MD 06/16/2023 11:16 SICU Housestaff #[phone] (Service Pager) Associated attestation - Chato Serrano MD - 06/16/2023 1150 EDT A Multi-disciplinary Critical Care Team consult has been requested by Paulette Hoover, * baljeete prevention, diagnosis, and treatment of organ dysfunction or failure. The patient was seen and examined. This includes review of the history, physical, flow sheets, laboratory and radiographic data, medication administration record, and other current clinical data. I have reviewed the plan with the house staff, nursing team, respiratory therapy, primary service, patie nt and/or family members. This is a 52 y.o. female with HTN, Diet controlled T2DM, and NSTI of right gluteal region, now POD#2 s/p debridement of the R gluteal region. Course complicated by PEA arrest and 2 rounds of CPR iso electrolyte derangement and vagal episode per EP. 24 hr events: Extubated to HFNC, BiPAP ORN. Vanc discontinued per ID. Zyprexa and low dose pdex for agitation. Acute 3rd degree HB this AM with loss of ventricular escape rhythm, received ~10-20 chest compressionswhile in 3rd degree block w/ intermittent ventricular escape. Transcutaneous pacing initiated w/ good capture and clear ROSC. Patient in pain and resp distress w/ transcutaneous pacing so re-intubated. New R subclavian PSI plaed and transvenous pacing wire placed w/ good capture, VVI backup at 60 BPM. Procedure(s): NEGATIVE PRESSURE WOUND THERAPY WITH DISPOSIBLE EQUIPMENT (N/A) DEBRIDEMENT, SUBCUTANEOUS TISSUE (N/A) Principal Problem: Necrotizing fasciitis ([facility]) Active Problems: Necrotizing soft tissue infection Cardiopulmonary arrest with successful resuscitation ([facility]) Type 2 diabetes mellitus I have seen and examined the patient with the residents on the ICU team on 06/16/2023. I agree with documented findings and have discussed plan of care. Below is documentation of my specific assessment/plan for this patient. Plan: Neuro: Multimodal analgesia, propofol sedation Resp: Intubated for resp distress/chest pain while transcutaneously pacing. Will wean vent as able,SBT today, VAP precautions. CV: Recurrent 3rd degree HB necessitating transvenous pacing. Wire through R subclavian PSI, @ 37cmw/ consistent capture, VVI 60 backup. EP following, currently leading diagnosis is vagal episodes, deferring PPM for now. Pads on chest. Briefly on epi 3 for chronotropy, now off after pacing wire inplace. NE PRN for MAP >65. GI: NPO,OGT, bowel reg. Renal: Monitor UOP and fluid status, replete electrolyte abnormalities. Endo: Insulin for glycemic control. Heme: Anemia, does not meet transfusion trigger. ID: Plan for repeat OR w/ ACS for NSTI, likely tomorrow given 3rd degree HB. C/w meropenem, clind Proph: SCDs, SQH, PPI Patient's status requires frequent assessment and interventions and is unstable with conditions that pose a significant threat to life or risk of prolonged impairment. There are vital organ systems involved with risk of life-threatening deterioration. I have spent 58 minutes discontinuously at the bedside providing critical care. These services include but are not limited to: conversation with family members, consultants, case management, and the nursing staff. This time is exclusive of procedures. Chato Serrano MD Attending, Anesthesiology and Critical Care Medicine 06/16/2023 11:41 * Omi Thomas, RN - 06/16/2023 0828 EDT Images from the original note were not included. Code Blue called. * Teresita Mcneal, PT - 06/16/2023 0618 EDT [facility] Acute Therapy [facility] Physical [facility] Contact Note Date of Service: 06/16/2023 PT consult received. Pt admitted with necrotizing fasciitis with plan for OR today Will f/u early this week TERESITA MCNEAL, PT 06/16/2023 6:18 * Alan Rosenthal, RT - 06/16/2023 0556 EDT Images from the original note were not included. Respiratory Progress Note Data Vitals: Heart Rate: 61 BPM, Resp: 20, SpO2: 100 % FIO2/O2 Device: O2 Device: BIPAP, FiO2%: 40% RT Orders: Continuous RT Orders Ordered Non-invasive Ventilation [[id number]] RT Continuous Discontinue References: Noninvasive Mechanical Ventilation (NIV) Adult Respiratory Care Consult Question Answer Comment Type: BiPAP Inspiratory Pressure 12 Expiratory Pressure 8 06/15/23 1806 Resp Care Orders Ordered Respiratory Care Evaluation Only [[id number]] EVERY 4 HOURS Discontinue Reschedule 06/15/23 0924 High Flow Nasal Cannula [[id number]] PRN Discontinue Action/Events Respiratory events; 2007: ABG obtained on BIPAP 12/8 30% (7.27/40/70/19/91%/-8). Titration of FiO2 to 40% Overall good tolerance of above BIPAP settings overnight. Brief trial on NC per patient request forbreak from BIPAP. Given trending tachypnea while on NC, patient placed back on BIPAP with good tolerance. Response/Results Weaning and Toleration of treatments; Continued titration of respiratory support as indicated. RT CONSTANCE 06/16/23 * Abigail Heredia - 06/15/2023 1607 EDT SOCIAL WORK CASE MANAGEMENT NOTE: Reached out by LOCK MASTER Adali to assist finding pt's family contact as there was no family memberlisted in face sheet. SHADE JACOBS reached out to [facility] and inquired if they had demographics information they could share. Carey Victor at [phone] (partner) information provided. Added to face sheet and updated LOCK MASTER. Johana Heredia [facility] [employer] Weekend CM * Teresita Alegre RT - 06/15/2023 0923 EDT Respiratory Extubation Note Pre-procedure - The extubation order and correct patient verified. The procedure was coordinated with the RN. Procedure - The patient's oral pharynx and ETT were suctioned for Secretion Amount: Small SecretionColor: White, Yellow and Secretion Consistency: Thick, Thin. A cuff leak was present. The patient was extubated and placed on O2 Flow Rate (L/min): 35 l/min O2 Device: High flow nasal cannula. No stridor was noted and the patient was able to produce voice. Vent D/C Time: 909 Ventilator days: 1 days Removed by: RT ETT LDA discontinued: Yes [REMOVED] Non-Surgical Airway (Removed) Number of days: 1 Patient remained sleepy and slightly agitated with work of breathing throughout the afternoon, splinting and shallow with pain. HFNC weaned at 1600 to nasal cannula. 1741 ABG 7.22/50/70/22. MD Jennings notified. Placed on BIPAP 12/8 x 16 +40% Plan for return to OR tomorrow. RT LORELEI 06/15/23 * Dana Miner MD - 06/15/2023 0908 EDT Surgery Progress Note Service Date: 06/15/2023 Admit Date: 06/13/2023 23:23 Procedure: Nec fasc debridement x2 (OSH) Nec fasc debridement, repair rectal injury (06/14) Chief Complaint: left perineal nec fasc 24 Hour Events: OR for above Post-operative cardiopulmonary arrest, ROSC after 2 rounds CPR Subjective Intubated, sedated Objective Vital Signs Temp: [36.4 ??C (97.5 ??F)-37.3 ??C (99.1 ??F)] , Heart Rate: [31 BPM-132 BPM] , Pulse: [82] , Pulse From Oximetry: [35 BPM-114 BPM] , Resp: [0-106] , BP: (75-191)/(45-139) , SpO2: [83 %-100 %] Physical Exam General Appearance: alert, cooperative, no distress Lung: non labored breathing Heart: regular rate and rhythm Abdomen: soft, nontender, rectal tube in place Extremities: Warm and well perfused, mild edema Wound: R gluteal wound dressing clean/dry/intact. Deferred dressing change this morning (plan for change with attending later today) Assessment 52 y.o. female with a history of HTN and T2DM who presented as a transfer from [facility] on 06/12 with necrotizing fasciitis. S/p debridement x2 at OSH and s/p debridement at [facility] on 06/14.Post-operative bradycardic arrest with ROSC after 2 rounds CPP (cardiology suspect 2/2 third degreeHB from manipulation of ETT). Plan Appreciate SICU care Continue Vanc/Clinda/Meropenem. ACS will call [facility] today to obtain OR cultures in order tonarrow abx OR for second look/re-debridement 06/15. Booked & serial consent done Agree with cardiology consultation for cardiopulmonary arrest DANA MINER MD 06/15/2023 9:08 Associated attestation - Jorge Ba MD - 06/15/2023 1417 EDT Images from the original note were not included. Attestation: I performed or was present during the cooper or critical portions of the visit and participated in the management of the patient on 06/15/2023. I agree with the findings and plan of care documented in the resident's/MADELINE's note. - Stable this morning - Wound evaluated at bedside; not indication for immediate return to OR as the patient is stable and had debridement overnight with Dr. Monique. - Booked for return to OR tomorrow and possible wound vac placement Jorge Ba MD Acute Care Surgery Pager: [phone] * Carlos Jennings DO - 06/15/2023 3219 EDT SICU Daily Progress Note Admit Date: 06/13/2023 Primary team: ACS CC: NSTI Right Gluteal region Procedures: Soft tissue Debridement RLE gluteal region 24hr Events: Return from OR for above, intubated, with plans to return for second look 06/14 4 units of PRBC in OR Pt with bradycardia to the 20's and lost pulses. Atropine 0.5 given prior to arrival to the room. Lost pulses. 2 rounds of CPR. 1mg of epi, 2g CaCl, 2 amps bicarb. ROSC. Cardiology consult Hypertonic d/c due to rapidly correcting Na Subjective: Intubated and sedated. Follows commands when awakened Objective: Temp: [36.4 ??C (97.5 ??F)-37.3 ??C (99.1 ??F)] , Heart Rate: [31 BPM-132 BPM] , Resp: [0-106] , BP: (75-191)/(45-139) , SpO2: [83 %-100 %] I/O: Current Shift: 06/14 0700 - 06/14 1459 In: 151.3 [I.V.:151.3] Out: - 24 hours: 06/13 0700 - 06/14 0659 In: 6514.8 [P.O.:725; I.V.:3729.8] Out: 1790 [Urine:1460; Drains:140] Tubes: ETT, VUONG, rectal tube Lines: Left Subclavian CVC, Left radial A line, Infusions/Rates: prop at 30, off pressors Vent: Mode: SPN-CPAP Rate: 14 bmp Vt 410 mL PS:5 cmH2O PEEP 8 cmH2O FiO2: 40 % Physical Exam: Gen: Intubated and comfortably sedated Resp: Mechanical breath sounds b/l. CV: S1, S1 without audible murmur, Abd: Protuberant, non tender, non distended : Vuong in place draining clear yellow urine Ext: WWP Neuro: Following commands when off sedation, difficulty moving RLE. Skin/Wound: Right lower extremity wound without surrounding crepitus. Dressing CDI Micro: Moderate gram positive and gram negative organisms from surgical cultures New Imaging (w/in 24h): XR CHEST PORTABLE 1 VIEW Result Date: 06/15/2023 1. Endotracheal tube tip terminates in the proximal right mainstem bronchus, recommend retracting afew centimeters. There appears to be consolidation of the left lower lobe 2. Right-sided CVC appropriately positioned, tip at the superior cavoatrial junction. Labs: CBC: Recent Labs 06/14/23 1842 06/15/23 0101 06/15/23 0510 WBC 31.96* 49.85* 38.40* RBC 2.28* 3.64* 3.24* HGB 7.1* 11.1* 9.9* HCT 19.8* 30.6* 27.0* MCV 87 84 83 MCH 31.1 30.5 30.6 MCHC 35.9 36.3* 36.7* PLT 354 388* 329 NEUTROABS 29.75* 37.84* 35.40* BMP: Recent Labs 06/14/23 1727 06/15/23 0101 06/15/23 0510 06/15/23 0721 NA 121* 126* 125* -- K 4.2 4.5 4.3 -- CL 98 99 102 -- CO2 16* 20* 16* -- BUN 41* 38* 38* -- CREATININE 0.98 0.93 0.97 -- CALCIUM 6.8* 7.9* 7.5* -- CAION -- -- -- 1.05* MG -- -- 1.9 -- PHOS -- -- 6.0* -- Coags: Recent Labs 06/15/23 0110 PROTIME 11.4 INR 1.0 PTT 27 LFT: No results for input(s): TBIL, ALKPHOS, AST, ALT, LIPASE, AMYLASE in the last 72 hours. ABG: No results for input(s): PHISTAT, PCOISTAT, POISTAT, POCTCO2, B6PISSZC, POCFIO2 in the last 72 hours. Cardiac Markers: No results for input(s): CK, MB, CKMBINDEX, TROPONINI in the last 72 hours. Lactic: Recent Labs 06/15/23 0101 06/15/23 0510 LACTICACID 2.0 0.9 Assessment: Della Browning is a 52 y.o. Female with HTN, Diet controlled T2DM, and NSTI of right gluteal region, here as transfer from [facility] after debridement x2 admitted for NSTI. SICU team consultedfor Mechanical ventilation. Patient with bradycardic arrest with ROSC after 2 rounds of CPR and 1mgepi. Also received 0.5mg atropine prior to arrest and 2g CaCl, 2 amps bicarb during arrest. Cardiology was consulted and believes the third degree heart block was precipitated by manipulation of the ETT with high vagal tone. Post arrest labs largely unremarkable. Additional 2g CaCl given Plan for probable return to OR tomorrow for second look and dressing change. Monitor lytes and aggressively replenish Plan: Neuro: Pain: Multimodal pain control with Acetaminophen and oxycodone Sedation: Propofol, wean for SBT CV: Cardiac monitoring via cuff and a line Goal SBP >90 and MAP 65 Crystaloids for fluid Pulm: SBT with plan to extubate Remain intubated with plan to RTOR tomorrow Aggressive IS and pulmonary toilet once extubated FEN/GI: Diet: NPO IV PPI BID Protonix Place NG tube-- to LCWS Check lytes q6h and replenish PRN Renal: Trend BUN/Cr, watch UOP Keep Vuong. Heme: Check CBCs q8 Heparin DVT ppx ID: Trend WBC and fever curve Abx Meropenem, Clynda, Vanc Endo: POC glucose checks q1 and Insulin gtt MSK: Monitor RLE function Engage PT when able Skin: Pressure ulcer prevention per SICU bundle including monitoring for device- related injuries (which include ETT, OGT, Vuong, A-line board) Wound care per primary team (ACS) Right buttock wound, no other skin concerns from nursing at this time Tubes/Lines: Plan to keep current lines Ppx: SCDs Heparin chemoppx IV Protonix BID Code status: Full Code Daily ICU Checklist Prophylaxis: DVT Prophylaxis: Heparin, Unfractionated GI Prophylaxis: Yes Skin Integrity Risk Factors: Yes Pressure Ulcer / Breakdown Present?: No CAM-ICU: Negative Ventilation/Sedation: Goal RASS: 0 Daily Awakening Performed: Yes Is there anticipated need of a chest x-ray the next morning of ICU stay?: No Procalcitonin: Currently Following Procalcitonin: No Early Mobility: Activity Order: Activity as tolerated Does The Patient Meet Physiological Criteria For PT Referral: Yes Is The Patient Awake And Able To Participate In Therapy: Yes - Order PT Fluids/Nutrition: Daily Fluid Goal: Even Tube Feedings: No Last Bowel Movement: 06/14/23 Lines: Vascular Access Assessment: Central access indicated Urinary (Vuong) Catheter Assessment: Vuong catheter indicated Communication: Interdisciplinary Items: Patient Eligible For Transfer: No Daily Goals: extubate, observe wound, electolyte replentishment CARLOS JENNINGS DO 06/15/2023 08:51 SICU Housestaff #[phone] (Service Pager) Associated attestation - Chato Serrano MD - 06/15/2023 1020 EDT A Multi-disciplinary Critical Care Team consult has been requested by Paulette Hoover, * forthe prevention, diagnosis, and treatment of organ dysfunction or failure. The patient was seen and examined. This includes review of the history, physical, flow sheets, laboratory and radiographic data, medication administration record, and other current clinical data. I have reviewed the plan with the house staff, nursing team, respiratory therapy, primary service, patie nt and/or family members. This is a 52 y.o. female with HTN, Diet controlled T2DM, and NSTI of right gluteal region, now POD 1 s/p debridement of the R gluteal region. Course complicated by PEA arrest and 2 rounds of CPR iso electrolyte derangements. 24 hr events: Return from OR for R gluteal debridement, intubated, 4 units of PRBC in OR. In ICU w/ bradycardia to the 20's and lost pulses, received 2 rounds of CPR. 1mg of epi, 2g CaCl, 2 amps bicarb. ROSC. Hypertonic d/c'd due to rapidly correcting Na. Extubated this AM to HFNC Procedure(s): NEGATIVE PRESSURE WOUND THERAPY WITH DISPOSIBLE EQUIPMENT (N/A) DEBRIDEMENT, SUBCUTANEOUS TISSUE (N/A) Principal Problem: Necrotizing fasciitis ([facility]) Active Problems: Necrotizing soft tissue infection Cardiopulmonary arrest with successful resuscitation ([facility]) Type 2 diabetes mellitus I have seen and examined the patient with the residents on the ICU team on 06/15/2023. I agree with documented findings and have discussed plan of care. Below is documentation of my specific assessment/plan for this patient. Plan: Neuro: Multimodal analgesia, consideral rib/chest pain this AM. Pdex for agitation Resp: Hypoxemia, supplemental oxygen as needed for sats > 92%, will wean HFNC as splinting improves. Pulm toilet with IS, mobilization. CV: PEA arrest most likely 2/2 profound electrolyte derrangements w/ significant hypoCa after many units of pRBCs, cardiology consulted. Aggressive lyte repletion, pads on. MAP>65, currently HD stable. GI: NPO, NGT to LCWS, NS MIVF for hydration, bowel reg. Renal: Monitor UOP and fluid status, replete electrolyte abnormalities. Endo: Insulin for glycemic control. Heme: Anemia, does not meet transfusion trigger. ID: Plan for OR again tomorrow for NSTI, c/w meropenem, clinda, vanc Proph: SCDs, SQH, PPI BID Patient's status requires frequent assessment and interventions and is unstable with conditions that pose a significant threat to life or risk of prolonged impairment. There are vital organ systems involved with risk of life-threatening deterioration. I have spent 48 minutes discontinuously at the bedside providing critical care. These services include but are not limited to: conversation with family members, consultants, case management, and the nursing staff. This time is exclusive of procedures. Chato Serrano MD Attending, Anesthesiology and Critical Care Medicine 06/15/2023 10:13 * Sagar Rivas, [facility] - 06/15/2023 0552 EDT Pharmacy Note: Vancomycin Monitoring Della Browning is a 52 y.o. y/o female receiving vancomycin intermittently for the treatment of necrotizing fasciitis. Other antibiotics include: clindamycin and meropenem Vancomycin random level drawn on 06/14 @ 0510 = 14.3 mcg/ml Assessment and Plan: 1) Scr and UOP appears stable, switching from vancomycin dose per level to a maintenance dose of 1500mg q24h (predicted AUC 541, trough 14.1). 2) Pharmacy will continue to follow and will reevaluate vancomycin concentration prior to the 4th dose of this new regimen 3) Continue to monitor renal function, CBC, In/Out, Tm. Sagar Rivas PharmD Secure chat * Alan Rosenthal, RT - 06/15/2023 0343 EDT Respiratory Progress Note Data Vitals: Heart Rate: 83 BPM, Resp:20, SpO2: 100 % FIO2/O2 Device: O2 Device: Intubated, FIO2 %: 70 % RT Orders: Continuous RT Orders (From admission, onward) Ordered Mechanical Ventilation-Invasive [[id number]] RT Continuous Discontinue References: ARDS/ALI Protocol Post Op Protocol Weaning Protocol ETCO2 Protocol Question Answer Comment Mode: Assist Control Control Type: Volume Control VT (mL) 410 Set Rate (f/min) 14 Peep (cm H2O) 12 Autoflow: Yes Protocols: Weaning ETCO2 Protocol: Yes Action/Events Respiratory events; 2355: Patient arrives from OR intubated with 7.0 ETT noted to be secured 24cm. Placed on VC-AC 410 x 14 +5 40%. Overall good tolerance of ventilator settings, PIP maintaining in low 20s. Coarse bilateral aeration, clears with airway clearance. Patient intermittently agitated turning head from side to side - Titration of propofol (see MAR) toaid ventilator tolerance. Plan to re-secure ETT 0028: Finished re-securing ETT - transitioned from OR to cloth tape. ETT maintained at 24cm. 0032: Patient noted to be bradycardic with loss of pulse. CPR initiated, X2 rounds (see MAR for medication administration). ETCO2 monitored throughout duration of code, ranging from 24-42 mmHg. 0055: Titration of PEEP to 12 cmH2O to maintain oxygen saturations within goal range. 0101: VBG obtained on VC-AC 410 x 14 +12 100% (7.27/43/-7). 0149: ETT withdrawn from 24cm to 22cm with good tolerance. Titration of FiO2 to 60% overnight, maintaining oxygen saturations within goal range. 0525: ABG obtained on VC-AC 410 x 14 +12 60% (7.36/31/185/18/100%/-7 ETCO2 30 mmHg). Patient continuously breathing over set back-up RR. FiO2 transitioned to 50%, PEEP to 10 cmH2O. ALAN ROSENTHAL, RT 06/15/23 * Moo Monique MD - 06/15/2023 0110 EDT ACS ATTENDING NOTE Chief complaint: NSTI of right gluteal region Called to pt's bedside because of cardiopulmonary arrest. On my arrival, chest compressions in progress, 1 amp epi already given. 2 amps calcium and sodium bicarb given. On pulse check, there was a pulse and pt moving head back and forth. HR 120's, levophed and Reinaldo gtts running. Right subclavian TLC placed. Labs sent. Will place arterial line for closer monitoring. Replete electrolytes as needed. Critical care time: 35 mins Moo Monique MD * Gardenia Redmond [facility] - 06/14/2023 1615 EDT Pharmacy Note: Vancomycin Monitoring Della Browning is a 52 y.o. y/o female receiving vancomycin intermittently for the treatment of necrotizing fasciitis. Other antibiotics include: clindamycin and meropenem 24 hour vitals and labs: Tmax: In/Out: 4.7L/3.8L (over 18 HOURS) BUN/SCr: 41/0.99 WBC: 34.07 Vancomycin random level drawn on 06/13 @ 14:49 is 1250 mcg/mL. Assessment and Plan: 1) The range for redosing vancomycin is 10-20 mcg/mL, which is consistent with the documented indication and/or the most recent provider recommendation. 2) The current vancomycin concentration is within this range 3) Per Pharmacy and Therapeutics Committee will redose with vancomycin 1250 mg x1 4) Pharmacy will continue to follow and will reevaluate vancomycin concentration on 06/14 at 0500. 5) Continue to monitor renal function, CBC, In/Out, Tm. GARDENIA REDMOND [facility] Secure chat * Ashleigh Stout, RD - 06/14/2023 1514 EDT Nutrition Assessment Note: Initial Visit Reason for Visit: Identified at risk due to skin integrity Admit Date: 06/13/2023 23:[address] Patel's note today: 52 y.o. female with a history of HTN and T2DM who presented as a transfer from [facility] on 06/13/23 in [facility] with necrotizing fasciitis. S/p debridement x2 at OSH. In ICU. Low hemoglobin this am, improved but still low after 1U and recheck. Will plan for an additional unit. Wound bed looks great, plan for VAC placement today. Okay for diet. Will continue IV abxtoday. Will place PICC for secure access today. On 3% drip for hyponatremia (improving). Procedure: Nec fasc debridement x2 (OSH) Chief Complaint: left perineal nec fasc 24 Hour Events: Tx from OSH Soaked several dressings overnight with blood H and H: 5.1 and 13.8 this am Received 1U uncrossmatched blood No active bleeding on dressing change Social History 1 pk/day smoker x 30+ years Occasional beer, no alcohol in 3+ weeks [employer] Marijuana +, no IVDU Subjective: Pt. Awake, alert, lying on side in bed, eating breakfast, c/o fatigue States weight has been stable up until admission, when well avoids sweets to avoid high BG, otherwise follows no special diet.no food allergies, avoids apple juice as it gives her a headache, OK withother apple products including apples, applesauce Willing to try boost glucose control Takes no vitamins at home Is OK with menu selections Receptive to review of CCD and high protein menu insert Current Nutrition Orders: CCD, now NPO for WV NS @ 125 ml/h 3% NaCl @ 20 ml/h Physical Findings: Overall appearance: awake, is pale Digestive Systems: Last BM RT in place Dentition: Teeth: Missing teeth, Dentures upper, Dentures lower per flowsheets Edema: none documented Skin: Elbow : blanchable redness on Left elbow Iliac crest : blanchable pinkness on Left hip Sacrum/coccyx: large open wound Allergies on file: Aspirin, Cymbalta [duloxetine], Lyrica [pregabalin], and Penicillins Nutrition Focused Physical Exam Subcutaneous Fat Assessment Orbital Region: Well-nourished (06/14/23 1520) Cheek Region: Well-nourished (06/14/23 1520) Upper Arm Region: Well-nourished (06/14/23 1520) Midaxillary Line: Not assessed (06/14/23 1520) Muscle Mass Assessment Congregation Region: Well-nourished (06/14/23 1520) Clavicle Region: Well-nourished (06/14/23 1520) Shoulder/Acromion/Clavicle Region: Well-nourished (06/14/23 1520) Scapula Region: Not assessed (06/14/23 1520) Hand Region: Not assessed (06/14/23 1520) Thigh/Patellar Region: Not assessed (06/14/23 1520) Calf Region: Not assessed (06/14/23 1520) NFPE Assessment Summary of Fat Wasting: No significant evidence of wasting (06/14/23 1520) Summary of Muscle Wasting: No significant evidence of wasting (06/14/23 1520) Anthropometrics: Height: 160 cm (63) IBW: 52.4 kg Adjusted weight: 69.3 kg Wt Readings from Last 6 Encounters: 06/14/23 86.2 kg (190 lb) BMI: Body mass index is 33.66 kg/m??. Weight Change: no known, pt. denies Pertinent Medications: Current Facility-Administered Medications Medication Route Frequency acetaminophen (OFIRMEV) IV solution 1,000 mg intravenous Now Followed by [START ON 06/15/2023] acetaminophen (OFIRMEV) IV solution 1,000 mg intravenous Now Followed by [START ON 06/15/2023] acetaminophen (OFIRMEV) IV solution 1,000 mg intravenous Now alteplase (CATHFLO ACTIVASE) injection 2 mg intercatheter PRN clindamycin in dextrose 5 % (CLEOCIN) IVPB 900 mg intravenous Q8H dextrose 50 % solution 12.5 g intravenous PRN glucagon injection 1 mg intramuscular PRN HYDROmorphone (PF) (DILAUDID) 0.5 mg/0.5 mL syringe 0.25-0.5 mg intravenous Q2H PRN hydrOXYzine (ATARAX) tablet 12.5 mg oral TID PRN insulin aspart U-100 (NOVOLOG FLEXPEN) injection subcutaneous Q6H lidocaine (PF) 10 mg/mL (1 %) injection 2 mg intradermal PRN lidocaine (PF) 10 mg/mL (1 %) injection 5 mg intradermal PRN meropenem (MERREM) 1 g in sodium chloride (NS DDDS) 0.9% 50 ml IVPB intravenous Q8H naloxone (NARCAN) injection 0.1 mg intravenous PRN sodium chloride 0.9 % (NS) infusion intravenous CONTINUOUS sodium chloride 3 % infusion intravenous CONTINUOUS Pertinent Labs: Relevant Labs: Lab Results Component Value Date WBC 34.07 (H) 06/14/2023 RBC 1.98 (L) 06/14/2023 HGB 6.4 (LL) 06/14/2023 HCT 17.6 (LL) 06/14/2023 MCV 89 06/14/2023 MCH 32.3 06/14/2023 PLT 334 06/14/2023 NA 119 (LL) 06/14/2023 K 4.4 06/14/2023 CL 97 06/14/2023 CO2 15 (L) 06/14/2023 BUN 41 (H) 06/14/2023 CREATININE 0.99 06/14/2023 CALCIUM 6.7 (L) 06/14/2023 Lab Results Component Value Date/Time HGBA1C 8.2 (H) 06/14/2023 04:55 GLUCOSEPOC 263 (H) 06/14/2023 12:50 GLUCOSEPOC 194 (H) 06/14/2023 05:41 GLUCOSEPOC 269 (H) 06/14/2023 00:58 No results found for: CRP, LABALBU, PALBS, QSBA19ZBC No results found for: ZINC, COPPER, SELENIUM, THIAMINE, FOLATE, NIILBWHO19, METMMETHY, VITEALPH, RETINOL, VITD Estimated Nutrition Needs: 25 kcal/kg (using 69.3 kg) = 1800 kcals/day 1.5 g/kg protein (using 69.3 kg) = 104 g protein/day Estimated Nutrition Intake: 100% breakfast today ASSESSMENT: RD Malnutrition Assessment No evidence of malnutrition at this time. Elevated A1c indicates poor glycemic control prior to admission. 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 Pt. NPO for WV change. Was able to eat well at breakfast today. Briefly discussed role of nutrition in healing and recovery with pt.,she appeared to understand theneed to eat well to support healing. Pt. Receptive to review of diet order and explanation of CCD. She appeared to understand need to include protein dense foods at all meals and was provided high protein menu insert. Pt. Willing to take boost glucose control as source protein to aid in healing. Suggest p.o. vitamin C to correct deficiency commonly seen in smoking. Suggest MVM to assure vitamin needs are met consistently give also vitamin D which may be low d/t obesity and illness. Suggest rendmagnesium and phosphorus to assure wnl for anabolism, she is at risk for low phosphorus as BG improve. Trend weight with goal of stable weight. Trend BG and monitor need to modify diet to aid in glycemic control. Currently receiving IV NS and 3% d/t low sodium, trend electrolytes and supplement as needed. Nutrition Risk Level: High (1) MEDICAL NUTRITION THERAPY PLAN: Advance diet as tolerated to CCD with boost glucose control all trays Has CCD and high protein menu insert Encourage high protein at all meals Nutrition to monitor intake and help with meal and supplement selection as needed Please order p.o. supplements: 500 mg vitamin C daily 1000 International Units vitamin D daily MVM daily Include magnesium and phosphorus with labs BG as ordered Weigh pt. On Saturday Nutrition to follow and monitor Ashleigh Stout RD, CD (Call PAS or use [employer] ([employer]) to page RD covering this unit) * Thong Traylor RN - 06/14/2023 1304 EDT Vascular Access Progress Note Diagnosis: Active Hospital Problems Diagnosis *Necrotizing fasciitis (HCC-CMS) Necrotizing soft tissue infection Reason for PICC line: Access Recommendations: Triple PICC/Central Line/Pacer history (Review documents, ask patient): none in chart Labs: No results found for: PROTIME, INR Lab Results Component Value Date WBC 32.49 (H) 06/14/2023 Lab Results Component Value Date PLT 352 06/14/2023 Lab Results Component Value Date CALCGFR 59 (L) 06/14/2023 Blood Cultures (negative at 48, 72 hour for yeast?) none drawn Contraindications to PICC Insertion (presence of any requires comment): Hx of thrombus-look for Doppler studies? No Unavailable arm (stroke, injury, surgical site, lymphedema, or fistula)? No Renal compromise needs attending or Nephrology order-Order needed? No Devices in the SVC? No Crutches or Walker? No IVC Filter or Pacer? No Temp >38.5 in 24hrs? No Existing lines? Yes, 3 PIV Patient education completed? Yes, will complete at bedside THONG TRAYLOR RN * Teresita Alegre RT - 06/14/2023 1205 EDT Respiratory Consult/Progress Note Indications for Respiratory therapy: Initial Consult Data Vitals: Heart Rate: 89 BPM, Resp: 15, SpO2: 100 % FIO2/O2 Device: O2 Device: None, RT Orders: Q12 Eval Protocol Scoring: Bronchodilator/Inhalation Therapy Frequency Bronchodilator - Clinical Indications: No clinical indications Breath Sounds: Any abnormal BS decreased Response: No change / no treatment Pulse: <100 Resp Rate: <18 SOB: None Total Score: 1 Frequency Based On Total Score: 0-4 = PRN 5-7 = QID 8-10 = Q4H 11-12 = Q2H Airway Clearance Therapy Frequency Airway Clearance - Clinical Indications: Productive cough Breath Sounds: Rhonchi / crackles Sputum: Small (tsp) / None Consistency: None Cough Effort: Strong/ productive Color: None Total Score: 2 Comment: prn Frequency Based On Total Score: 0-3 = PRN 4-6 = QID and PRN 7-9 = Q4H and PRN 10-11 = Q2H and PRN Hyperinflation Therapy Frequency Hyperinflation - Clinical Indications: No clinical indications Breath Sounds: Other Surgery: No X-Ray / Atelectasis: No O2 Requirements: O2 at baseline Mobility Status: Mobile / at baseline Total: 1 Comment: prn Frequency Based On Total Score: 0-3 = PRN 4-6 = QID and PRN 7-9 = Q4H and PRN 10-12 = Q2H and PRN Action/Events Respiratory events; No respiratory disease, no JENNA or home O2 use. BBS good aeration with some rhonchi, patient has strong cough and cleared independently, on room air. Current ppd smoker for past 30 years. No respiratory therapy indicated at this time. RT LORELEI 06/14/23 * Chato Patel MD - 06/14/2023 1134 EDT Surgery Progress Note Service Date: 06/14/2023 Admit Date: 06/13/2023 23:23 Procedure: Nec fasc debridement x2 (OSH) Chief Complaint: left perineal nec fasc 24 Hour Events: Tx from OSH Soaked several dressings overnight with blood H and H: 5.1 and 13.8 this am Received 1U uncrossmatched blood No active bleeding on dressing change Subjective/Objective Subjective Denies any dizziness or lightheadedness. No nausea, vomiting, fevers, chills. Some pain at her Objective Vital Signs Temp: [35.6 ??C (96.1 ??F)-36.5 ??C (97.7 ??F)] , Heart Rate: [76 BPM-88 BPM] , Pulse: [83] , PulseFrom Oximetry: [77 BPM-124 BPM] , Resp: [12-23] , BP: (88-120)/(49-70) , SpO2: [92 %-100 %] Physical Exam General Appearance: alert, cooperative, no distress Lung: non labored breathing Heart: regular rate and rhythm Abdomen: soft, nontender, rectal tube in place Extremities: Warm and well perfused, mild edema Skin: right gluteal debridement with healthy appearing subcutaneous tissue pictured below Assessment/Plan Assessment 52 y.o. female with a history of HTN and T2DM who presented as a transfer from [facility] on 06/13/23 in [facility] with necrotizing fasciitis. S/p debridement x2 at OSH. In ICU. Low hemoglobin this am, improved but still low after 1U and recheck. Will plan for an additional unit. Wound bed looks great, plan for VAC placement today. Okay for diet. Will continue IV abxtoday. Will place PICC for secure access today. On 3% drip for hyponatremia (improving). Plan -WV placement today -reg diet -f/u post transfusion H and H -cont IV abx -tx out of unit later today CHATO PATEL MD 06/14/2023 11:34 Associated attestation - Jorge Ba MD - 06/14/2023 1520 EDT Attestation: I performed or was present during the cooper or critical portions of the visit and participated in the management of the patient on 06/14/2023. I agree with the findings and plan of care documented in the resident's/MADELINE's note. - Ongoing bleeding from wound bed requiring blood transfusion - Booked for OR to obtain hemostasis and possible wound vac placement Jorge Ba MD Acute Care Surgery Pager: [phone] * Le Gomez RN - 06/14/2023 0158 EDT IV Access Data: Pt with bilateral AC PIVs. New transfer from OSH. Action: Ultrasound was used to assess veins in left arm. Veins below AC are small and would not be able to sustain a PIV. Left basilic vein used to place 20g 2.5 PIV (see charting). Cephalic vein was torturous and unable to be used. Response: Recommend a PICC for continued IV needs due to small veins and multiple antibiotics. LE GOMEZ RN 06/14/2023 1:58 * Timmy Murcia RPH - 06/14/2023 0145 EDT Pharmacy Note: Vancomycin Initial Regimen Della Browning is a 52 y.o. female ordered to receive vancomycin 1750 mg IV q12h for the treatment of necrotizing fasciitis. They last received vancomycin 1000 mg at the OSH on 06/12 @ 1350 prior totransfer. Other antibiotics include: meropenem, clindamycin. 24 hour vitals and labs: Temp (24hrs), Av ??C (96.8 ??F), Min:35.6 ??C (96.1 ??F), Max:36.4 ??C (97.5 ??F) Recent Labs 06/14/23 0122 06/14/23 0455 CREATININE 1.03 1.13* BUN 42* 41* Vancomycin random concentration = 14.1 on 06/13 @ 0122 Assessment and Plan: 1) Vancomycin random concentration = 14.1 on admission which is within range for re-dosing (< 20mcg/ml) 1). Initial regimen ordered will likely produce a supratherapeutic trough concentration based on patients age, weight, renal function, comorbidities, and indication. 2). Vancomycin goal AUC is 400-600 with a minimum trough goal of 10 mcg/ml. 3). Ordered regimen adjusted to vancomycin 1250 mg IV x 1 followed by intermittent dosing by levelsd/t unstable renal function 4). Pharmacy will order a vancomycin concentration on 06/13 at 1500 to assess need for re-dosing at that time 5). Please continue to monitor renal function, WBC trend, fever curve, and culture results. Timmy Murcia, RadhaD Pharmacist (Nights) - Emergency Medicine/Critical Care Secure Chat [phone] documented in this encounter H&P Notes * Paulette Hoover - 06/13/2023 1734 EDT Images from the original note were not included. Acute Care Surgery - Admission H&P Date: 06/13/23 CC: Necrotizing fasciitis HPI Della Browning is a 52 y.o. female with a history of HTN and T2DM [facility] with necrot[facility] fasciitis. She states her pain initiall started about 1.5 weeks ago and felt like a burning sensation, similar to when she was bit by a spider many years ago. She initially tried to manage the pain at home but went to the ED as the pain and weakness progressed. She uinderwent two debridements at the OSH and was then transferred to [facility] for definitive management. She currently rates her pain at a 9/10. She states her PMH is significant for HTN and DM2, but that she takes no medications. She states she controls her diabetes with diet. She presently denies any nausea, vomiting, CP/SOB. Past Medical History HTN DM2 Past Surgical History Extraction of glass from dental abscess Tubal ligation Tympanostomy tubes Allergies Penicillin Lyrica Aspirin Cymbalta Outpatient Medications None Social History 1 pk/day smoker x 30+ years Occasional beer, no alcohol in 3+ weeks [employer] Marijuana +, no IVDU Family History No known family history Review of Systems A 10 point review of systems was conducted and was negative except for pertinent positives noted inthe HPI. Physical Exam General: Alert, cooperative, no distress Heart: Regular rate and rhythm, normal S1 and S2 heart sounds with no murmurs, rubs, or gallops Lungs: Coarse bilaterally with expiratory wheezes, L > R Abdomen: Soft, nontender, nondistended, no palpable masses Extremities: Warm and well perfused, mild b/l edema, obvious deformity of the right gluteal region pictured below Labs Complete blood count, basic metabolic panel, and hemoglobin %A1c ordered Imaging No results found. Assessment Patient is a 52 y.o. female with a history of T2DM and HTN who presents to [facility] as a transfer for management of a right gluteal necrotizing soft tissue infection Plan Gluteal wound dressing replaced at the bedside this evening with saline-soaked kerlix packing covered with 4x4 gauze and ABD pads, anticipate next dressing change in the AM Operative debridement timing to be discussed in the AM IV antibiotics with Meropenem 1g q8 Clindamycin 900 mg q8 Vancomycin 20 mg/kg q12h NPO mIVF Multimodal pain control Insulin sliding scale CBC, BMP now & daily Ángel Godinez MD Surgery PGY-1, #[id number] 06/13/23, 17:34 Attestation: I performed or was present during the cooper or critical portions of the visit and participated in the management of the patient on 06/14/2023. I agree with the findings and plan of care documented in the resident's/fellow's note. Pt with NSTI s/p debridement at OSH x2 Not on pressors, not intubated Transferred due to frequency of wound care Wound was debrided earlier today No need for additional debridement tonight Continue with local wound care Will de-escalate ABX Possible return to OR in next 24 hrs Paulette Hoover MD 06/14/2023 0:50 documented in this encounter Procedure Notes * Katelyn Cheng RN - 07/29/2023 1505 EDT Ultrasound dynamic guidance was used for peripheral line insertion. Name of semiconductor wafers saw operator: Katelyn Cheng RN LDAINFO BLOCK Peripheral IV 07/29/23 1504 Anterior;Right Forearm (Active) 07/29/23 1504 Forearm Dressing Change Due: 08/05/23 Size (Gauge): 24 Catheter Length (Inches): 0.75 Catheter Brand: B Khoury Introcan Orientation: Anterior;Right Site: Inserted by: Inserted by RN;Ultrasound Guided Insertion attempts: 1 Local Anesthetic: None Skin Antisepsis: 2% Chlorhexidine with IPA Removal Reason : Post Removal Assessment/Care: Size (Gauge): Catheter Length: IV Change Due: Orientation: Criteria to continue met? (chart all reasons) Other (must comment reason) 07/29/23 1504 Date Dressing Changed 07/29/23 07/29/23 1504 Dressing date clearly marked on PIV site? Yes 07/29/23 1504 Site Assessment Clean/Dry/Intact 07/29/23 1504 Line Status Blood returned;Capped;Flushed 07/29/23 1504 Dressing Type Securing Device;Transparent 07/29/23 1504 Dressing Status/Care Clean/Dry/Intact;Site Cleaned;Changed/New 07/29/23 1504 Patient response: tolerated well Patient education: at bedside KATELYN CHENG RN 07/29/2023 * Reza Norwood PA-C - 07/25/2023 1302 EDT Images from the original note were not included. WOUND VAC CHANGE DATE OF SERVICE: 07/25/2023 PRE-OP DIAGNOSIS: OPEN WOUND, right gluteal POST-OP DIAGNOSIS: SAME PROCEDURE: CHANGE WOUND VAC SYSTEM WITH NEW SPONGE SYSTEM Performed by: Reza Nowrood PA-C ASSISTANTS: Leesa Norwood PA-C WOUND SIZE: 10 cm (width) x 22 cm (length) x 2.5 cm max depth (near sacrum) Description of Wound: Debridement required: None Wound vac change was performed at the bedside. Sedation was not indicated. The previously placed wound vac system was removed without difficulty exposing the wound The wound was cleansed to clean tissue. Bleeding was controlled with pressure as required. Integra MicroMatrix was utilized in paste form to cover the posterior/sacral region of the wound. The wound bed was then covered in entirety with 1 sheet of Integra Cytal. This was then covered with 1 layer of xeroform and then lubricating jelly. The wound was picture framed circumferentially with clear, adherent drape to protect the skin edges. One piece of clean granufoam sponge was cut to fit the wound. The sponge was placed in the wound and secured to the skin with the adherent, plastic dressing. This wound vac dressing was then bridged out to the right hip to prevent pressure injury fromtrac-pad and tubing. A small circular defect was cut in the plastic and the suction tubing system was applied. The system was connected tot he [employer] on the wound vac console and the vacuum was set at -125 mmHg. The seal on the dressing was intact. Plan: - Maintain current vac in place x 7 days, if wound vac leaks it can be re-enforced. - Next wound vac change on , 07/31 Reza Norwood PA-C * Eduardo Duval PA-C - 07/17/2023 1034 EDT Images from the original note were not included. WOUND VAC CHANGE DATE OF SERVICE: 07/17/2023 PRE-OP DIAGNOSIS: OPEN WOUND, POST-OP DIAGNOSIS: SAME PROCEDURE: CHANGE WOUND VAC SYSTEM WITH NEW SPONGE SYSTEM Performed by: Eduardo Duval PA-C ASSISTANTS: Dr. Hoover WOUND SIZE: 11cm (width) x 22 cm (length)x 3cm max depth (near sacrum) Wound vac change was performed at the bedside. Sedation was not indicated however received .5mg Dilaudid . The previously placed wound vac system was removed without difficulty exposing the wound Debridement required: None The wound was cleansed to clean tissue. ACELL paste to sacral area and ACELL sheet to remainder wound bed. Bleeding was controlled with pressure as required. Two pieces of clean sponge was cut to fitthe wound. The sponge was placed in the wound and secured to the skin with the adherent, plastic dressing. A small circular defect was cut in the plastic and the suction tubing system was applied. The system was connected tot he [employer] [place]ister on the wound vac console and the vacuum was set at 125 mmHg.The seal on the dressing was intact. Total Time with patient 60 mins * Gardenia Brewster RN - 07/04/2023 0504 EDT Ultrasound dynamic guidance was used for peripheral line insertion. Name of semiconductor wafers saw operator: Gardenia Brewster RN LDAINFO BLOCK Peripheral IV 07/04/23 050 Right;Anterior;Medial;Distal Upper Arm (Active) 07/04/23 050 Upper Arm Dressing Change Due: 07/11/23 Size (Gauge): 20 Catheter Length (Inches): 1.75 Catheter Brand: B Khoury Introcan Orientation: Right;Anterior;Medial;Distal Site: basilic, 0.3cm wide, 1.1cm deep approximately Inserted by: Inserted by RN;Ultrasound Guided Insertion attempts: 1 Local Anesthetic: None Skin Antisepsis: 2% Chlorhexidine with IPA Removal Reason : Post Removal Assessment/Care: Size (Gauge): Catheter Length: IV Change Due: Orientation: Criteria to continue met? (chart all reasons) Telemetry class I;Other (must comment reason) 07/04/23 050 Date Dressing Changed 07/04/23 07/04/23501 Dressing date clearly marked on PIV site? Yes 07/04/23 050 Site Assessment Clean/Dry/Intact 07/04/23501 Line Status Blood returned;Flushed;Capped 07/04/23 050 Dressing Status/Care Site Cleaned;Changed/New;Clean/Dry/Intact 07/04/23501 Dressing Type Transparent 07/04/23501 Patient response: tolerated well Patient education: at the bedside GARDENIA BREWSTER RN 07/04/2023 * Eduardo Duval PA-C - 07/01/2023 1434 EDT Images from the original note were not included. WOUND VAC CHANGE with ACELL PLACEMENT DATE OF SERVICE: 07/01/2023 PRE-OP DIAGNOSIS: OPEN WOUND, POST-OP DIAGNOSIS: SAME PROCEDURE: CHANGE WOUND VAC SYSTEM WITH NEW SPONGE SYSTEM and ACELL PLACEMENT Performed by: Eduardo Duval PA-C ASSISTANTS: Eloisa Norwood PA-C, Leesa Norwood PA-C WOUND SIZE: 27 cm x 7 cm x 3cm Wound vac change was performed at the bedside. Sedation was not indicated. The previously placed wound vac system was removed without difficulty exposing the wound Debridement required: Minimal sharp debridement over the area of the sacrum. Stitch that hold one of the skin edges was cut alleviating tension. Remainder of sutures are still in place. The wound was cleansed to clean tissue. Bleeding was controlled with pressure as required. 2 vials of ACELL dust were mixed with saline and placed over the exposed sacrum area (3x5cm) and the remainder was placed in the 3.5cm open tract. 2 sheets of ACELL were placed over wound. Please see below. A new, clean sponge was cut to fit the wound. The sponge was placed in the wound and secured to theskin with the adherent, plastic dressing, a bridge was formed so the geni pad could be displaced from areas of contact. A small circular defect was cut in the plastic and the suction tubing system was applied. The system was connected tot he cannister on the wound vac console and the vacuum was set at 125 mmHg. The seal on the dressing was intact. PLAN: Leave wound vac and ACELL in place for 7 days. If wound vac leaks attempt to reinforce it. Will look at wound Next Saturday, July 07 to see if it is ready for STSG or another dosing of ACELL. * Reza Norwood PA-C - 06/28/2023 1627 EDT Images from the original note were not included. ACS Procedure Note Bedside Wound Vac Change Date of Service: 06/28/23 Pre-procedure diagnosis: Open right gluteal surgical wound Post-procedure diagnosis: Same Procedure: Change wound vac with new Granufoam sponge system Performed by: Reza Norwood PA-C Assistants: Tara Castanon RN Wound Measurements: 26 cm x 7.5 cm x 3 cm; Area in central portion of wound with open tract that isroughly 5 cm in depth and 2.5 cm in diameter Description of wound: Debridement required: Sharp excisional debridement of small area of necrotic skin edge at the posterior/inferior edge and the anterior inferior edge Wound vac change was performed at the bedside. Sedation was not indicated. The previously placed wound vac system was removed without difficulty exposing the wound. The woundwas cleansed to clean tissue. Bleeding was controlled with pressure as required. A new, clean sponge was cut to fit the wound. The sponge (4 pieces in total) was placed in the wound and secured to the skin with the adherent, plastic dressing. A small circular defect was cut in the plastic and the suction tubing system was applied. The system was connected to the cannister on the wound vac consolewith settings as below. The seal on the dressing was intact with minimal air leak. Wound Vac Settings: Vacuum set to -125 mmHg low continuous suction. Next change on Saturday, 06/30 by the ACS team Reza Norwood PA-C * Tai Azar MD - 06/24/2023 1558 EDT Images from the original note were not included. Bedside Procedure Note Title of Procedure: Wound vac placement (21 cm x 8 cm x 3 cm) Date Performed: 06/24/2023 Time Performed: 1500 Performed by: Tai Azar MD PGY3, Shoaib Godinez MD PGY1 Indications and/or Provisional Diagnosis: NSTI debridement Condition: The condition of the patient was good. Consent: The patient/surrogate has consented after being informed of the risks, benefits and alternatives. Medications: Fentanyl 50 mcg x2 Estimated Blood Loss: Unless otherwise noted, there was no blood loss, specimens removed, cultures obtained, or drains retained. The estimated blood loss was none. Procedure: Wound as pictured below with fibrinous exudate throughout wound bed and significant necrotic debrisbut otherwise healthy and well perfused. No purulence. Sharp debridement was attempted at the bedside but aborted due to significant bleeding. Wound measures (21 cm x 8 cm x 3 cm). Large black granufoam sponge cut to size. Using a scissors a tunnel was made through the length of the sponge through which an 18Fr NG tube was threaded. An additional piece of black sponge was placed into small tunnel of the wound. The blue sump port of the NGtube was tied off. Plastic dressings were applied and ostomy paste applied to perianal corner of the wound to achieve a seal. Mepilex border applied to skin underlying the NG tube to track it anteriorly in effort to prevent pressure injury. NG main port attached to LCWS and successful suction seal achieved. Post Procedure Diagnosis and Findings: same Complications: None Keep NG to LCWS. Page ACS #[id number] for any bloody or feculent output from the drain. TAI AZAR MD 06/24/2023 15:58 * Tai Azar MD - 06/22/2023 1523 EDT Images from the original note were not included. Bedside Procedure Note Title of Procedure: Wound vac placement (21 cm x 8 cm x 3 cm) Date Performed: 06/22/2023 Time Performed: 1500 Performed by: TAI AZAR MD Indications and/or Provisional Diagnosis: NSTI debridement Condition: The condition of the patient was good. Consent: The patient/surrogate has consented after being informed of the risks, benefits and alternatives. Medications: Fentanyl 50 mcg x2 Estimated Blood Loss: Unless otherwise noted, there was no blood loss, specimens removed, cultures obtained, or drains retained. The estimated blood loss was none. Procedure: Wound as pictured below with fibrinous exudate throughout wound bed but otherwise healthy and well perfused. Wound measures (21 cm x 8 cm x 3 cm). Large black granufoam sponge cut to size. Using a blunt scissors a tunnel was made through the length of the sponge through which an 18Fr NG tube was threaded. An additional piece of black sponge was placed into small tunnel of the wound. The blue sumpport of the NG tube was tied off. Plastic dressings were applied and ostomy paste applied to perianal corner of the wound to achieve a seal. Mepilex border applied to skin underlying the NG tube to track it anteriorly in effort to prevent pressure injury. NG main port attached to LCWS and successful suction seal achieved. Post Procedure Diagnosis and Findings: same Complications: None Keep NG to LCWS. Page ACS #8843 for any bloody or feculent output from the drain. TAI AZAR MD 06/22/2023 15:24 * Ángel Bustamante MD - 06/18/2023 1400 EDTAssociated Order(s): Insert Central Line (Non-Tunneled) Post-Procedure Diagnose(s): Complete heart block (HCC-CMS) Bedside Procedure Note Insert Central Line (Non-Tunneled) Date/Time: 06/18/2023 13:30 Performed by: Ángel Bustamante MD Authorized by: Moo Monique MD Consent: The procedure was performed in an emergent situation. Verbal consent not obtained. Written consent not obtained. Patient identity confirmed: arm band Time out: Immediately prior to procedure a time out was called to verify the correct patient, procedure, equipment, business support assistant and site/side marked as required. Indications: Pacer [...] than the patient's intrinsic rate of 80. Ángel Bustamante MD 06/19/23 3:20 Emergency Medicine Resident, PGY1 SICU House Staff #[phone] (Service Pager) * Isabela Victor RN - 06/18/2023 1223 EDT Cortrack Feeding Tube Placement Procedure Note Title of Procedure: Cortrack Feeding Tube Placement Date Performed: 06/18/2023 Time Performed: 1200 Performed by: Isabela Victor RN Indications and/or Provisional Diagnosis: Condition: The condition of the patient was Serious Consent: The patient/surrogate has consented after being informed of the risks, benefits and alternatives Ordered By: Shoaib Bustamante Time Out: A time-out was completed prior to procedure verifying correct patient, procedure, site, positioning, and special equipment if applicable. Type of Anesthesia or Sedation: Phenylephrine-lidocaine 0.25%-3% topical solution Procedure Technique/Description: Performed tube placement using the Cortrak EAS system2 X-Ray Confirmation: Yes Final Tube Position: Small bowel Exposed Catheter Length (cm): 95 Complications: None ISABELA VICTOR RN 06/18/2023 12:24 * Willie Tavarez RN - 06/17/2023 0826 EDT Ultrasound dynamic guidance was used for peripheral line insertion. Name of semiconductor wafers saw operator: Willie Tavarez RN LDAINFO BLOCK Peripheral IV 06/17/23 0825 Anterior;Left Forearm (Active) 06/17/23824 Forearm Dressing Change Due: 06/24/23 Size (Gauge): 22 Catheter Length (Inches): 1.25 Catheter Brand: B Khoury Introcan Orientation: Anterior;Left Site: Inserted by: Inserted by RN;Ultrasound Guided Insertion attempts: 1 Local Anesthetic: None Skin Antisepsis: 2% Chlorhexidine with IPA Removal Reason : Post Removal Assessment/Care: Size (Gauge): Catheter Length: IV Change Due: Orientation: Criteria to continue met? (chart all reasons) Continuous IV fluids;Other (must comment reason) 06/17/23825 Date Dressing Changed 06/17/23 06/17/23825 Dressing date clearly marked on PIV site? Yes 06/17/23825 Site Assessment Clean/Dry/Intact 06/17/23825 Line Status Blood returned;Flushed 06/17/23825 Dressing Status/Care Changed/New;Site Cleaned 06/17/23825 Dressing Type Transparent 06/17/23825 Patient response: Appropriate for condition Patient education: Unable due to patient condition Additional study information (vein depth, vein size, compressibility, patency, in-plane vs. [id number], surrounding structures and post procedure available on the images, accessed via the imaging tab.) WILLIE TAVAREZ RN 06/17/2023 * Reza Brito MD - 06/16/2023 1047 EDT PROCEDURE NOTE: Central Line and transvenous pacer wire placement Procedure: Removal of right IJ and placement of Right Subclavian Central Line with transvenous pacer wire Indication: pressor requirements, bradycardia with third degree AV block setter gypsum(s): Dana Miner MD Description: Patient was prepped/draped in sterile fashion. Transvenous pacer insertion was attempted using RIJ CVC that was already in place, unfortunately the guide wire as unable to pass through due to a kink in the line. Previous RIJ was removed and pressure held for hemostasis. Lidocaine injected 1 cm below the right clavicle, along mid-clavicular line. 14 gauge syringe with minimal negativepressure used to locate subclavian vein, requiring one stick . Using Seldinger technique a guide wire inserted into subclavian vein and a small 0.5cm incision was made to extend size of syringe puncture site. Catheter inserted over guidewire 2cm subcutaneously to cannulate. PSI cordis was inserted,properly flushed, was fully advanced along wire and guide wire removed. Transcutaneous pacer wire was then inserted to 36-37 cm until ventricular capture ws achieved on the monitor. Catheter was thensutured to skin with 3 ties. Incision area cleaned and dressed. Pacer set to 80 VVI as backup. CXR to confirm placement pending, confirmation needed before line to be used. Complications: none EBL: 5 cc Dispo: Patient sedated/intubated in SICU. Incision is clean, dry, intact, dressed. Reza Brito MD PGY-1 Orthopedic Surgery Resident SICU Pager #[phone] 06/16/2023 10:55 Associated attestation - Chato Serrano MD - 06/16/2023 1141 EDT I have seen and evaluated this patient and I agree with the findings and plan of care documented inthe resident's note. I was present for the entire procedure. Chato Serrano MD 11:40 06/16/2023 * Reza Brito MD - 06/16/2023 0894 EDT Intubation Name: Della Browning :: Age: 52 y.o. :: , :: Location: ICU Emergency airway management for patient Della Browning. The indication for this procedure was airway compromise and bradycardic arrest. The patients haemodynamic status was unstable. A brief history and review of labs was performed. Last known vitals: Blood pressure 134/73, pulse 82, temperature 36.7 ??C (98 ??F), resp. rate 18, height 160 cm (63), weight 86.2 kg (190 lb), SpO2 95 %. The patient was preoxygenated, denitrogenated and standard ASA monitors were applied. The patient'sposition was optimized and suction was available. Manual Inline Stabilization Performed: No Rapid Sequence Intubation: Yes Cricoid Pressure: No Premedication: 2 mg midazolam, 100 mcg fentanyl, and 50 mg ketamine Paralytic: vecuronium, dose: 50 mg Laryngoscopy performed using: Francois 4 video assisted laryngoscope blade. and 7.5mm cuffed endotracheal tube. Андрей/Lehane Grade: Iia partial view of glottis ETT Size: 7.5 mm Reproducible ETCO2: Yes Breath Sounds: clear to auscultation, no wheezes, rales, or rhonchi Tube taped at: 24 cm at the lip Attempts: 1 Complications: none Procedure performed by: Resident Haemodynamic status post procedure: stable Attending Performed: No Attending Present: Yes, Name: Chato Serrano MD Attending Attestation via Cosign: Yes Reza Brito MD PGY-1 Orthopedic Surgery Resident SICU Pager [phone] 06/16/2023 8:45AM Associated attestation - Chato Serrano MD - 06/18/2023 0707 EDT I have seen and evaluated this patient and I agree with the findings and plan of care documented inthe resident's note. I was present for the entire procedure. Chato Serrano MD 7:06 06/18/2023 * Arlin Hoang MD - 06/15/2023 0145 EDT Title of Procedure: Arterial Line Placement Date Performed: 06/15/2023 Time Performed: 1:45 Performed by: ARLIN HOANG MD Attending: MOO MONIQUE MD Indication: Invasive hemodynamic monitoring and frequent arterial sampling. Fluids Given: See I&O Unless otherwise noted, there was no blood loss, specimens removed, cultures obtained, or drains retained. Procedure Technique/Description of Procedure: The patient was prepped and draped in the usual sterile fashion. An arterial line was introduced percutaneously and via the Seldinger technique into the left radial artery after 1 attempt. The line was secured with suture and covered with a dressing. Good blood return without significant extremity blanching was noted. Good arterial wave form was noted. Blood loss was minimal. Complications: None ARLIN HOANG MD 06/15/2023 1:47 PGY2, Epic Chat * Ayden Alexander MD - 06/15/2023 0143 EDT Central Catheter Insertion First Catheter This Session Physician Documentation Pre-Procedure: Procedure To Be Performed: New central line placement Indication: New indication Line Priority: Emergent Consent Obtained: Emergency -Consent not obtained The patient and/or family have been provided education/training to minimize the risk of central line-associated bloodstream infections. Central Line Type: Central Catheter Type: Non-Tunneled Non-Tunneled Catheter: Standard Central Line Details: Line Location: Right;Subclavian Final Tip Location: Right;Superior Vena Cava Line Lumens (#): Triple Central Line Size: 7 Fr Line Coating: Non-antimicrobial coated Line External Length: Hub Line Securement Device: Sutured Catheter Secured At (cm):: 16 Responsible Service / IR Details: Responsible Service: Critical Care Central Line Materials and Methods: Number of Attempts: 1 Number of Sites Attempted: 1 Number of Kits Used: 1 Central Line Operators: Number Of Operators: 2 [employer] Customer Service Manager's Name: Moo Monique [employer] Customer Service Manager's Title: Attending Geological Specialist's Name: Ayden Alexander Geological Specialist's Title: Resident Unless otherwise noted, there were no complications, no blood loss and no cultures obtained. AYDEN ALEXANDER MD 06/15/2023 1:43 * Thong Traylor RN - 06/14/2023 1442 EDT Ultrasound dynamic guidance was used for peripheral line insertion. Name of semiconductor wafers saw operator: Thong Traylor LDAINFO BLOCK Peripheral IV 06/14/23 1441 Anterior;Right Forearm (Active) 06/14/23 1441 Forearm Dressing Change Due: 06/21/23 Size (Gauge): 20 Catheter Length (Inches): 1.75 Catheter Brand: B Khoury Introcan Orientation: Anterior;Right Site: Inserted by: Inserted by RN;Ultrasound Guided Insertion attempts: 1 Local Anesthetic: None Skin Antisepsis: 2% Chlorhexidine with IPA Removal Reason : Post Removal Assessment/Care: Size (Gauge): Catheter Length: IV Change Due: Orientation: Criteria to continue met? (chart all reasons) Continuous IV fluids 06/14/23 1441 Date Dressing Changed 06/14/23 06/14/23 144 Site Assessment Clean/Dry/Intact 06/14/23 1441 Line Status Blood returned;Flushed 06/14/23 1441 Dressing Status/Care Changed/New;Site Cleaned 06/14/23 1441 Dressing Type Transparent 06/14/23 144 Patient response: tolerated well Patient education: completed at bedside Additional study information (vein depth, vein size, compressibility, patency, in-plane vs. [id number], surrounding structures and post procedure available on the images, accessed via the imaging tab.) THONG TRAYLOR RN 06/14/2023 * Le Gomez RN - 06/14/2023 0158 EDT Ultrasound dynamic guidance was used for peripheral line insertion. Name of semiconductor wafers saw operator: Le Goemz RN LDAINFO BLOCK Peripheral IV 06/14/23156 Anterior;Left Upper Arm (Active) 06/14/23156 Upper Arm Dressing Change Due: 06/21/23 Size (Gauge): 20 Catheter Length (Inches): 2.5 Catheter Brand: B Khoury Introcan Orientation: Anterior;Left Site: Inserted by: Inserted by RN;Ultrasound Guided Insertion attempts: 1 Local Anesthetic: None Skin Antisepsis: 2% Chlorhexidine with IPA Removal Reason : Post Removal Assessment/Care: Size (Gauge): Catheter Length: IV Change Due: Orientation: Criteria to continue met? (chart all reasons) Continuous IV fluids;Antibiotics administered IV 06/14/23156 Date Dressing Changed 06/14/23 06/14/23156 Dressing date clearly marked on PIV site? Yes 06/14/23156 Site Assessment Clean/Dry/Intact 06/14/23156 Line Status Blood returned;Flushed 06/14/23156 Dressing Status/Care Changed/New;Site Cleaned 06/14/23156 Dressing Type Transparent 06/14/23156 Patient response: Pt tolerated well. Patient education: Pt understands the need for US. LE GOMEZ RN 06/14/2023 documented in this encounter Consult Notes * Maite Hua RN - 08/12/2023 1144 EDTAssociated Order(s): CONSULT DIABETES EDUCATION Diabetes Nurse Clinician Consult Note: current A1C=8.2 Type of DM: T2 SMBG: does not check Medications: none DM Provider: PCP DM Hx: ~10-15 years Assessment/Education: consult received for DM education. Met with Della at bedside. This clinician had seen her last month on 07/14. At that time she was unable to participate in diabetes education. Today she is feeling much better however her endurance for learning resulted in a shortened education session. She has hesitation towards taking insulin. She took it years ago and tells me I got the needle stuck in my stomach and that is the last time I took it. Discussed the importance of optimal glycemic control for wound healing and current need for insulin. She indicates understanding and is willing to take insulin at home and check BG. Her fingers are very sore and she is overwhelmed with the need for multiple injections and FS per day. She would like a continuous glucose monitor. Dexcom ordered by Endocrinology. Today education was provided on insulin pen administration, long acting and rapid acting insulin usage, safety with taking two different types of insulin and insulin profiles. Demonstration and return demonstration using training pen, injector pad and home needle with 2 caps. Instructed on home glucometer use and encouraged practice with nursing. Discussed reading diabetes survival skills packet and moved packet and meter closer to her bedside for easier access. Recommendations: Della will likely benefit from more frequent shorter duration education delivery. Nursing please do ongoing frequent reinforcement of diabetes education including BG monitoring, target BG ranges, insulin administration and diabetes survival skills. Will follow up again closer to discharge to assess for gaps in knowledge and support with Dexcom initiation. Supplies: Supplies needed for d/c: one touch verio test strips and one touch delica 33g gauge lancets for 4 checks per day(no need to provide the meter itself, this was already given to the patient),32 gauge wilmar insulin pen needles, when prescribing insulin pens, please account for 2 units of waste when priming the needle for each injection. Emergency glucagon (Gvoke or Baqsimi preferred). Glucose tabs for hypoglycemic rescue medication. Maite Hua RN [facility] Diabetes Nurse Clinician Contact via secure chat or page (Micheline Hua) Use of the ONETOUCH Verio Reflect Blood Glucose Monitoring System WASH your hands with soap and water and dry well. Contaminants on the skin may affect the results Prepare the testing supplies: The meter, a test strip, a lancet, the Delica lancing device and a tissue to wipe the first drop of blood off from your finger Prepare the Delica lancing device by rotating the cap - then pulling it straight off, and insertinga new lancet until it clicks in place for each test. Twist the lancet cover one full turn until it separates from the lancet Replace the lancing device cap by snapping it on Adjust the depth setting on the base of the lancing device Cock the lancing device by pulling the slider back until it clicks Prepare the meter by inserting a new test strip, silver prongs first, gold side up - to turn the meter ON Puncture either side of your finger by holding the lancing device firmly against your finger, pressthe round green release button, and remove the lancing device from your finger. Gently squeeze your finger tip until a round drop of blood forms, and wipe that first drop off, andtest the second drop by touching it to the dark channel on the side of the strip, wicking it up completely. The channel turns red, and the meter will count down from 5 to1. It is recommended to remove the lancet over plastic receptacle by sliding the slider forward towards the round green release button, until it drops out View the result, and write it down in a logbook if desired. Your meter stores 750 test results. Refer to the Rigging Engineer's Booklet for acquiring control solution from your pharmacy see page 68, 74, 76 for more details. A new feature of this meter provides the ColorSure Dynamic Range Indicator and Blood Sugar [place] Messages along with other feature you can explore in your automatic print developer's manual. Insulin Pen Injection six step method for patients 1. Clean stopper with alcohol attach the needle remove 2 caps. 2. Clear the air by priming the pen with 2 units check the window (return to zero.). 3. Dial desired dose cleanse your skin with alcohol prep pad. 4. Inject, push, count to ten. 5. Check the window that it returned to zero to ensure you received all your dose. 6. Remove the pen needle with larger plastic cap and dispose safely in sharps container.( If you are using 2 different insulins make sure you are injecting at least 2 inches apart on your body. Also important to tra pens using a rubber band to avoid mixing them up. Injection location sites Abdomen Upper and outer arm Front and sides of thighs Buttocks Keep your unopened pens in the refrigerator they are good until expiration on box. After open can be left out room temperature for up to 28 days. Avoid very hot or very cold temperatures. Can try keeping your supplies in a pouch such as pencil case to keep it all together and place on your placemat while setting the table for meals. This will be your reminder to check your BG and take your insulin just prior to your meal. * Ashleigh Stout, LORENA - 07/15/2023 1204 EDTAssociated Order(s): CONSULT NUTRITION Nutrition Assessment Note: Reassessment Admission date: 06/13/2023 23:[address] Ann's note today: Procedure: Nec fasc debridement x2 (OSH) Serial debridement, repair rectal injury (06/14) Additional debridement, washout (06/16) Additional debridement, washout, partial closure (06/18) Washout, wound vac change (06/25) Wound vac change (07/09) Chief Complaint: NSTI 24 Hour Events: No new events Subjective: Holden eating lunch, appetite is good, able to drink ~ 3 boost glucose control daily When well follows no special diet. Likes reading the carbohydrate content of each food on menu ticket Has CCD menu insert Receptive to review DM education using plate method. She is unsure if she lost weight Note she cannot ambulate Current Nutrition Orders: Diet: Consistent Carbohydrate Diet, Mech Soft-- Boost Glucose Control TID Delegate Diet ordering to RD Nutrition Focused Physical Exam Subcutaneous Fat Assessment Orbital Region: Well-nourished (06/14/23 1520) Cheek Region: Well-nourished (06/14/23 1520) Upper Arm Region: Well-nourished (06/14/23 1520) Midaxillary Line: Not assessed (06/14/23 1520) Muscle Mass Assessment Congregation Region: Well-nourished (06/14/23 1520) Clavicle Region: Well-nourished (06/14/23 1520) Shoulder/Acromion/Clavicle Region: Well-nourished (06/14/23 1520) Scapula Region: Not assessed (06/14/23 1520) Hand Region: Not assessed (06/14/23 1520) Thigh/Patellar Region: Not assessed (06/14/23 1520) Calf Region: Not assessed (06/14/23 1520) NFPE Assessment Summary of Fat Wasting: No significant evidence of wasting (06/14/23 1520) Summary of Muscle Wasting: No significant evidence of wasting (06/14/23 1520) Physical Findings: Digestive Systems: Last BM : formed BM on 07/04 Dentition: Teeth: Missing teeth per flowsheets Edema: trace Skin: excoriation, lacerations/incisions WV to buttock wound Allergies on file: Aspirin, Cymbalta [duloxetine], Lyrica [pregabalin], and Penicillins Anthropometrics: Height: 160 cm (63) Weights Filed This Admission 06/14/23 0000 06/19/23 0900 06/30/23 0605 07/11/23 1728 Weight: 86.2 kg (190 lb) 86.2 kg (190 lb) 92.2 kg (203 lb 4.2 oz) 82.6 kg (182 lb 1.6 oz) Body mass index is 32.26 kg/m??. Weight Change: 8 lbs loss this admission, this is a 4.2% loss Pertinent Medications: Current Facility-Administered Medications Medication Route Frequency acetaminophen (TYLENOL) tablet 1,000 mg oral Q6H PRN albuterol inhaler 180 mcg inhalation Q4H PRN alteplase (CATHFLO ACTIVASE) injection 2 mg intercatheter PRN amLODIPine (NORVASC) tablet 10 mg oral DAILY ascorbic acid (vitamin C) (VITAMIN C) tablet 250 mg oral DAILY cloNIDine (CATAPRES) 0.2 mg/24 hr patch 1 Patch transdermal WEEKLY dextrose 50 % solution 12.5 g intravenous PRN docusate sodium (COLACE) capsule 200 mg oral BID enoxaparin (LOVENOX) injection 40 mg subcutaneous DAILY furosemide (LASIX) tablet 40 mg oral DAILY glucagon injection 1 mg intramuscular PRN HYDROmorphone (DILAUDID) tablet 2-4 mg oral Q3H PRN insulin aspart U-100 (NOVOLOG FLEXPEN) injection 3-6 Units subcutaneous TID WC insulin aspart U-100 (NOVOLOG FLEXPEN) injection subcutaneous TID WC insulin aspart U-100 (NOVOLOG FLEXPEN) injection subcutaneous QHS insulin glargine injection pen 35 Units subcutaneous DAILY L.A. INSULIN ipratropium-albuteroL (DUONEB) 0.5 mg-3 mg(2.5 mg base)/3 mL nebulizer solution 3 mL nebulization Q4H PRN lactulose (CHRONULAC) 20 gram/30 mL solution 30 mL oral Q4H lidocaine 5 % (LIDODERM) patch 1 Patch transdermal Q24H lidocaine 5 % (LIDODERM) patch 2 Patch transdermal DAILY LORazepam (ATIVAN) tablet 0.5 mg oral BID PRN melatonin tablet 6 mg oral QHS methocarbamoL (ROBAXIN) tablet 1,000 mg oral QID metroNIDAZOLE (FLAGYL) tablet 500 mg oral Q8H cxdvucqs-yir-mula fum-folic ac 7.5 mg iron-400 mcg tablet 1 Tablet oral DAILY naloxone (NARCAN) injection 0.1 mg intravenous PRN nicotine (NICODERM CQ) 21 mg/24 hr patch 1 Patch transdermal DAILY papain-alpha amylase-cellulase (CLOG ZAPPER) 2-5 mL feeding tube PRN QUEtiapine (SEROQUEL) tablet 25 mg oral QHS senna (SENOKOT) tablet 2 Tablet oral QHS sodium chloride soluble tablet 1,000 mg oral TID thiamine (VITAMIN B1) tablet 100 mg oral DAILY Pertinent Labs: Relevant Labs: Lab Results Component Value Date WBC 8.00 07/15/2023 RBC 2.91 (L) 07/15/2023 HGB 8.3 (L) 07/15/2023 HCT 25.1 (L) 07/15/2023 MCV 86 07/15/2023 MCH 28.5 07/15/2023 PLT 387 (H) 07/15/2023 NA 131 (L) 07/15/2023 K 4.1 07/15/2023 CL 96 07/15/2023 CO2 23 07/15/2023 BUN 14 07/15/2023 CREATININE 0.40 (L) 07/15/2023 CALCIUM 8.5 07/15/2023 Lab Results Component Value Date/Time HGBA1C 8.2 (H) 06/14/2023 04:55 GLUCOSEPOC 174 (H) 07/15/2023 11:20 GLUCOSEPOC 150 (H) 07/15/2023 07:16 GLUCOSEPOC 164 (H) 07/14/2023 20:42 GLUCOSEPOC 172 (H) 07/14/2023 16:48 GLUCOSEPOC 187 (H) 07/14/2023 11:59 Estimated Nutrition Needs: MSJ x1.3 for wound healing (using 82.6 kg) = 1830 kcals/day 2.0 g/kg protein (using 52.4 kg IBW) = 99-105 g protein/day Estimated Nutrition Intake: This am ate 100% breakfast and Boost, ASSESSMENT: Pt. Tolerates diet as ordered. Pt. Able to eat well at lunch today, she is drinking boost glucose control ~ 2 times per day. She states she is drinking 2-3 Boost GC/day which provides 570 mary/ 48 gm protein. Nutrition to monitor intake and help with meal and supplement selection as needed. Pt. Appears to eat adequately to meet energy and protein needs. Check vitamin D level to aid in determining appropriate vitamin D supplementation. Provided nutrition diabetes education. Reviewed/explained CCD and gave CCD menu insert. Provided and reviewed Diabetes education information with focus on plate method. Pt. Appeared to understand andwas receptive to information stating she would review print information. Pt. Has suffered weight loss of 4.2% over the past month/this hospital stay, BMI is c/w obesity. Some weight loss may be r/t loss of muscle mass d/t immobility. Trend weight. Nutrition Risk Level: High (1) MEDICAL NUTRITION THERAPY - UPDATED PLAN Diet as ordered Nutrition to monitor intake and help with meal and supplement selection as needed Check vitamin D level with next set of labs. Trend BG as ordered Patient Education Topic: plate method for DM Method: Handout and Verbal Taught to: Patient Barriers: None Outcomes: needs practice Ongoing monitor and follow up Ashleigh Stout RD, CD (Call PAS or use [employer] ([employer]) to page RD covering this unit) * Maite Hua RN - 07/15/2023 1158 EDTAssociated Order(s): CONSULT DIABETES EDUCATION Diabetes Nurse Clinician Consult Note: current A1C=8.2 Type of DM: T2 SMBG: does not check Medications: no medications DM Provider: PCP DM Hx: ~10-15 years Assessment/Education: consult received for diabetes education. Met with Della at bedside. She has been in the hospital for 32 days and she reports it is overwhelming, she doesn't remember how longshe's been here or parts of it. We discussed her diabetes and BG management today and how this relates to proper healing and risk for infection. She is tearful today and feels overwhelmed. She is in agreement to consider insulin at discharge if it is recommended. The conversation today was very high level. Left a diabetes survival skills packet and a one touch verio flex glucometer for home use. Diabetes education not appropriate at this time. Recommendations: Please consult closer to discharge when diabetes regimen is determined and patienthas d/c plan and is ready to accept education. Maite Hua RN [facility] Diabetes Nurse Clinician Contact via secure chat or page (Micheline Hua) * Nabila English NP - 07/12/2023 1523 EDTAssociated Order(s): CONSULT ENDOCRINOLOGY Endocrine Inpatient Consult Note Admit Date: 06/13/2023 Date of Service: 07/12/2023 Requesting Physician: Onur Azar and [facility] Completing Consult: Endocrinology Reason for Consult: T2DM Inpatient glycemic management, Necrotizing Fasciitis HPI: 52 y/o F with PMH of T2 DM, HTN, Anxiety/Depression, admitted via ER with R Gluteal Necrotizing Fasciitis 06/12, complicated by Post-operative bradycardic arrest x2 early in hospital course, suspected heart block vs vagal event. Recovered normal cardiac function, EP cards signed off and has hadpersistent respiratory complications. She has undergone serial washouts/debridements and wound vac placements. Diabetes History: Onset: ~ 10-15 yr ago Control: A1C 8.2 on 06/13 Complications: Peripheral Neuropathy, infected wound Home Regimen: On no meds at home Says previously she had taken insulin Tries to watch diet SBGM and Self Care: Stopped taking FS Current Regimen: Lantus 30 units subcutaneous daily. Aspart SSI for weight 76- 100 Kg Current Diet: Regular (added Consistent Carb) Social Information: Single, Lives in [facility], has male partner. 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 Unsure of family history maybe grandparents w DM Regular Diabetes Provider: PCP PMH PSH History reviewed. No pertinent past medical history. History reviewed. No pertinent surgical history. Social History Family History Social History Tobacco Use Smoking status: Former Current packs/day: 0.00 Average packs/day: 1.5 packs/day for 38.3 years (57.4 ttl pk-yrs) Types: Cigarettes Start date: 1985 Quit date: 06/12/2023 Years since quittin.0 Smokeless tobacco: Never Substance Use Topics Alcohol use: Not on file History reviewed. No pertinent family history. Medications Current Facility-Administered Medications Medication Route Frequency albuterol inhaler 180 mcg inhalation Q4H PRN alteplase (CATHFLO ACTIVASE) injection 2 mg intercatheter PRN amLODIPine (NORVASC) tablet 10 mg oral DAILY ascorbic acid (vitamin C) (VITAMIN C) tablet 250 mg oral DAILY cloNIDine (CATAPRES) 0.2 mg/24 hr patch 1 Patch transdermal WEEKLY dextrose 50 % solution 12.5 g intravenous PRN docusate sodium (COLACE) capsule 200 mg oral BID enoxaparin (LOVENOX) injection 40 mg subcutaneous DAILY furosemide (LASIX) tablet 40 mg oral DAILY glucagon injection 1 mg intramuscular PRN HYDROmorphone (DILAUDID) tablet 2-4 mg oral Q3H PRN insulin aspart U-100 (NOVOLOG FLEXPEN) injection 3-6 Units subcutaneous TID WC insulin aspart U-100 (NOVOLOG FLEXPEN) injection subcutaneous TID WC insulin aspart U-100 (NOVOLOG FLEXPEN) injection subcutaneous QHS insulin glargine injection pen 30 Units subcutaneous DAILY L.A. INSULIN ipratropium-albuteroL (DUONEB) 0.5 mg-3 mg(2.5 mg base)/3 mL nebulizer solution 3 mL nebulization Q4H PRN lactulose (CHRONULAC) 20 gram/30 mL solution 30 mL oral Q4H [START ON 07/13/2023] lidocaine 5 % (LIDODERM) patch 1 Patch transdermal Q24H lidocaine 5 % (LIDODERM) patch 2 Patch transdermal DAILY LORazepam (ATIVAN) tablet 0.5 mg oral BID PRN melatonin tablet 6 mg oral QHS methocarbamoL (ROBAXIN) tablet 750 mg oral QID metroNIDAZOLE (FLAGYL) tablet 500 mg oral Q8H axftgegp-gvg-hdyd fum-folic ac 7.5 mg iron-400 mcg tablet 1 Tablet oral DAILY naloxone (NARCAN) injection 0.1 mg intravenous PRN nicotine (NICODERM CQ) 21 mg/24 hr patch 1 Patch transdermal DAILY papain-alpha amylase-cellulase (CLOG ZAPPER) 2-5 mL feeding tube PRN QUEtiapine (SEROQUEL) tablet 25 mg oral QHS senna (SENOKOT) tablet 2 Tablet oral QHS sodium chloride soluble tablet 1,000 mg oral TID thiamine (VITAMIN B1) tablet 100 mg oral DAILY Allergies Allergies Allergen Reactions Aspirin Hives Cymbalta [Duloxetine] Other (See Comments) Depression, suicidal ideation Lyrica [Pregabalin] Nausea And Vomiting Penicillins Hives Review of Systems: A ten point review of systems was performed. Pertinent positives are listed below, all others are negative: Wound pain, fatigue Objective/Physical Exam: VS: BP: 131/73 Pulse: 82 Heart Rate: 78 BPM Resp: 18 Temp: 37.4 ??C (99.4 ??F) SpO2: 100 % O2 Flow Rate (L/min): 1 l/min O2 Device: Nasal cannula FIO2 %: 30 % Exam: Eyes: EOMs intact, non icteric ENT: Face, symmetric, mucous membranes moist. Neck/Thyroid: no masses normal thyroid gland Respiratory: Lungs w scattered coarse rhonchi, wheeze clears w cough Cardiovascular: Auscultation Heart: S1S2 RRR Extremities: Extremities Edema/Varicosities: No edema Gastrointestinal:: Examination Abdomen: Soft with normal bowel sounds Musculoskeletal: Inspection/Palpation Digits/Nails: onchomycosis Examination Upper/Lower Extremities: no abnormalities Skin: Inspection: Wound Vac attached to buttocks Neurologic: Sensation/Vibratory Perception: decreased 10 gram monofilamant exam distally Psychiatric: Judgement/Insight: Mood affect appropriate to situation Mental Status (Orientation): oriented X 4 Data Review: I have independently visualized the Labs: Recent Labs 07/10/23 1436 07/10/23 1820 07/10/23 1930 07/10/23 2129 07/11/23 0748 07/11/23 1306 07/11/23 1754 07/11/23 2043 07/11/23 2154 07/12/23 0732 07/12/23 1118 07/12/23 1652 GLUCOSEPOC 207* 216* 176* 305* 140* 156* 169* 282* 250* 153* 241* 221* Lab Results Component Value Date HGBA1C 8.2 (H) 06/14/2023 Lab Results Component Value Date WBC 6.96 07/11/2023 RBC 2.61 (L) 07/11/2023 HGB 7.4 (L) 07/11/2023 HCT 22.6 (L) 07/11/2023 MCV 87 07/11/2023 MCH 28.4 07/11/2023 MCHC 32.7 07/11/2023 PLT 364 07/11/2023 NEUTROABS 3.93 07/11/2023 Lab Results Component Value Date SERGLU 143 (H) 07/11/2023 NA 130 (L) 07/11/2023 K 4.5 07/11/2023 CL 98 07/11/2023 CO2 23 07/11/2023 BUN 17 07/11/2023 CREATININE 0.49 (L) 07/11/2023 CALCIUM 8.2 (L) 07/11/2023 CALCGFR 113 07/11/2023 LABALBU 2.5 (L) 07/05/2023 Other Studies: N/A Assessment: 52 y/o F with 10-15 yr H/O T2 DM, manages with dietary measures, A1C is uncontrolled. Has PMH of HTN, Anxiety/Depression, admitted via ER with R Gluteal Necrotizing Fasciitis 06/12, complicated by Post-operative bradycardic arrest x2 early in hospital course, suspected heart block vs vagal event. Recovered normal cardiac function, EP cards signed off and has had persistent respiratory complications. She has undergone serial washouts/debridements and wound vac placements. Renal function WNL Blood sugars remain variable with current regimen of Lantus and Aspart scale. Recommend adding Mealtime insulin to lower post meal hyperglycemia along with increase in basal insulin Recommendations: Lantus: Increase to 35 units. First dose tomorrow Aspart: Begin 6 units if eats full meal and 3 units if eats 50% of meal Hold for NPO Aspart SSI for weight 76-100 kg and add 5 units at HS PRN for FS >250 FS AC/HS/PRN She will benefit from RN CDE DM education (Has been followed by RD) Consider introduction of non-insulin agents ad adjunct therapy to insulin, once closer to discharge Will follow w you Thank you for the allowing me to consult on this interesting patient. Nabila English NP 07/12/2023 15:24 * Lilli Garrison MD - 07/04/2023 0257 EDT SICU Admit Note Admit Date: 06/13/2023 Primary team: Acute Care Surgery CC: shortness of breath Procedures: Nec fasc debridement x2 (OSH) Serial debridement, repair rectal injury (06/14) Additional debridement, washout (06/16) Additional debridement, washout, partial closure (06/18) Washout, wound vac change (06/25) HPI: Della Browning is a 52 y.o. female with history significant for HTN and Dm2, who presented originally to [facility] as a transfer from OSH on 06/13/23 with concern for necrotizing fasciitis. Hospital course significant for multiple OR trips for nec fasc debridement and washouts, post-operative bradycardic arrest in the context of vagal stimulation vs heart block. Currently deconditioned with worsening hypoxemia in the context of suspected left sided mucous plug. Admitted to SICU on Bipap vs HFNC, undergoing airway clearance treatments. No past medical history on file. No past surgical history on file. Allergies Allergen Reactions Aspirin Hives Cymbalta [Duloxetine] Other (See Comments) Depression, suicidal ideation Lyrica [Pregabalin] Nausea And Vomiting Penicillins Hives No family history on file. Social History Tobacco Use Smoking status: Former Current packs/day: 0.00 Average packs/day: 1.5 packs/day for 38.3 years (57.4 ttl pk-yrs) Types: Cigarettes Start date: 1985 Quit date: 06/12/2023 Years since quittin.0 Smokeless tobacco: Never Subjective: Describes feeling restless and having difficulty breathing. Not describing much pain in her chest, however she is having difficulty getting the mucous in her chest up. Objective: Vital Signs: BP: (108-170)/(47-113) Heart Rate: [79 BPM-113 BPM] Temp: [36.6 ??C (97.9 ??F)-37.4 ??C (99.3 ??F)] Resp: [20-48] SpO2: [84 %-98 %] I/O: Current Shift: 07/02 2299 - 07/03 0659 In: - Out: 775 [Urine:775] 24 hrs: 07/01 2299 - 07/02 2259 In: 1590 [P.O.:1340] Out: 3920 [Urine:3750; Drains:170] Tubes: Lines: PIV(s) x2 Infusions/Rates: none Physical Exam: Gen: moderate distress, sitting upright in bed Resp: right sided coarse crackles on auscultation, trace lung sounds on auscultation on left CV: NSR on telemetry Abd: soft, nontender, nondistended : vuong in place Ext: 2+ radial pulses Neuro: alert, oriented x3 Skin/Wound: wounds on bottom Micro: Blood culture 06/16/23 - no growth Imaging: Chest CT w contrast 07/03/23 Extensive mucous plugging within the left-sided airways [...] sternal fracture. Mild coronary artery atherosclerotic calcification. CXR 07/04/23 Preliminary - Suspected persistent moderate to large left pleural effusion with slight interval increased opacification of the left lung likely at least in part representing atelectasis; however, superimposed pneumonia should be considered in the appropriate clinical setting. Labs: CBC: Recent Labs 07/02/23 0742 07/03/23 0629 WBC 10.00 9.16 RBC 2.57* 2.40* HGB 7.4* 7.1* HCT 21.5* 21.2* MCV 84 88 MCH 28.8 29.6 MCHC 34.4 33.5 PLT 568* 548* NEUTROABS 7.72 6.67 BMP: Recent Labs 07/02/23 0742 07/02/23 1254 07/03/23 0629 07/03/23 1535 07/03/23 1744 07/03/23 2356 NA 128* < > 130* 130* 130* 129* K 4.0 -- 3.3* -- -- -- CL 93* -- 95* -- -- -- CO2 27 -- 27 -- -- -- BUN 12 -- 12 -- -- -- CREATININE 0.47* -- 0.47* -- -- -- CALCIUM 8.3* -- 8.0* -- -- -- MG 1.8 -- 1.9 -- -- -- PHOS 4.4 -- 4.0 -- -- -- < > = values in this interval not displayed. ABG: No results for input(s): PHISTAT, PCOISTAT, POISTAT, POCTCO2, A4NKHXTO, POCFIO2 in the last 72 hours.Coags: No results for input(s): PROTIME, INR, PTT in the last 72 hours. Assessment: Della Browning is a 52 y.o. female with history s/f HTN and DM2 admitted for necrotizing fasciitis now s/p multiple debridements. Readmitted 07/03/23 to SICU with worsening shortness of breath and hypoxemia in the context of poor airway clearance and large radiologic evidence of likely left mainstem mucous plugging. Mucous clearance with respiratory therapy guided vest treatment, followed by bronchoscopy with evacuation of left mainstem mucous plug. Plan: Neuro: Pain: q6h acetaminophen, PO 2mg hydromorphone q4h prn Sedation: propofol infusion, titrate to RASS -1 CV: Cardiac monitoring via noninvasive blood pressure cuff Goal SBP>90 and MAP>65 Phenylephrine as needed to help maintain goal BP Pulm: Goal SpO2 > 92%, titrate supplemental O2 as needed Maintain PEEP >10 as tolerated while intubated for lung recruitment and reinflation Vest therapy with respiratory therapy for mucous clearance Intubated with bronchoscopy for mucous evacuation Aggressive Incentive spirometry, optimize patient positioning FEN/GI: Diet: NPO while intubated IV PPI while intubated Hold mIVF due to goal of diuresis Bowel regimen twice daily miralax Daily BMP replete PRN Renal: Trend BUN/Cr, watch UOP Keep Vuong. Heme: Check CBCs daily 40mg lovenox daily for chemoppx ID: Trend WBC and fever curve Follow up results Endo: POC glucose checks with q6 and sliding scale insulin while NPO MSK: PT consultation Skin: Pressure ulcer prevention per SICU bundle including monitoring for device- related injuries (which include ETT, OGT, Vuong, A-line board) Wound care per primary team Primary care team to manage bandage changes Tubes/Lines: ETT, 2x PIV Possible extubation pending results of repeat CXR Ppx: SCDs chemo chemoppx Code status: Full code LILLI GARRISON MD 07/04/2023 2:58 SICU Housestaff [phone] (Service Pager) Associated attestation - Rocky Jacobs MD - 07/04/2023 2241 EDT See note from 5/8 am * Ashlie Valentine MD PhD - 06/25/2023 2312 EDT SICU Admit Note Admit Date: 06/13/2023 Primary team: ACS CC: Hypoxic respiratory failure Procedures: Nec fasc debridement x2 (OSH) Serial debridement, repair rectal injury (06/14) Additional debridement, washout (06/16) Additional debridement, washout, partial closure (06/18) HPI: 52 y.o. female with a history of HTN and T2DM who presented as a transfer from [facility] on 06/12 with necrotizing fasciitis. S/p debridement x2 at OSH and s/p debridement at [facility] on 06/14.Early post-operative course c/b bradycardic arrest with ROSC after 2 rounds CPP (cardiology suspect2/2 third degree HB from manipulation of ETT). Coded a second time following extubation while she was on dexmedetomidine. She had been doing well on the floor, satting well on RA today. Had an acute desatting event this evening, satting in the 70s on 15 L Venturi mask. Was transferred to the SICU urgently, placed on BiPAP with saturation coming up to 98%, high respiratory rates to 35-45. No past medical history on file. No past surgical history on file. Allergies Allergen Reactions Aspirin Hives Cymbalta [Duloxetine] Other (See Comments) Depression, suicidal ideation Lyrica [Pregabalin] Nausea And Vomiting Penicillins Hives No family history on file. Subjective: Opens eyes to voice and makes eye contact, unable to answer questions. Objective: Vital Signs: BP: (100-215)/(61-127) Heart Rate: [89 BPM-125 BPM] Temp: [36.7 ??C (98 ??F)-37 ??C (98.6 ??F)] Resp: [20-39] SpO2: [82 %-98 %] I/O: Current Shift: No intake/output data recorded. 24 hrs: 06/23 2300 - 06/24 2259 In: 440 Out: 2350 [Urine:2350] OR totals: Tubes: Vuong, rectal tube, WV connected to wall suction via NGT Lines: PIV(s) x1 Infusions/Rates: N/A Physical Exam: Gen: Acute distress, RR 35-45 w/ use of accessory muscles Resp: Coarse breathingb/l, equal entry b/l CV: S1 and S2, No M/R/G,RRR Abd: soft, nontender : Foely w/ cyu Ext: Warm, palpable peripheral pulses, +leg edema Neuro: Moving all extremities, opens eyes to voice, makes eye contact and follows command Imaging: CXR: Pulm edema, mild b/l pleural effusion Labs: CBC: Recent Labs 06/23/23 0544 06/24/23 0507 06/25/23 0833 WBC 16.19* 14.87* 10.99 RBC 3.11* 3.08* 2.74* HGB 9.3* 9.2* 8.2* HCT 27.7* 26.6* 24.2* MCV 89 86 88 MCH 29.9 29.9 29.9 MCHC 33.6 34.6 33.9 PLT 484* 411* 389* NEUTROABS 14.29* 12.96* 9.06* BMP: Recent Labs 06/23/23 0544 06/24/23 0507 06/25/23 0833 06/25/23 2238 NA 132* 130* 132* 132* K 4.8 4.7 4.5 5.0 CL 98 97 99 98 CO2 25 27 24 22 BUN 17 17 17 19 CREATININE 0.36* 0.39* 0.40* 0.45* CALCIUM 8.5 8.4* 8.0* 8.5 MG 1.6* 1.9 1.9 -- PHOS 3.6 4.8* 5.4* -- ABG: No results for input(s): PHISTAT, PCOISTAT, POISTAT, POCTCO2, J5GRMHVO, POCFIO2 in the last 72 hours.Coags: No results for input(s): PROTIME, INR, PTT in the last 72 hours. Assessment: 52 y.o. female with a history of HTN and T2DM who presented as a transfer from [facility] on 06/12 with necrotizing fasciitis. S/p debridement x2 at OSH and s/p debridement at [facility] on 06/14.Early post-operative course c/b bradycardic arrest with ROSC after 2 rounds CPP (cardiology suspect2/2 third degree HB from manipulation of ETT). Coded a second time following extubation while she was on dexmedetomidine. She had been doing well on the floor, satting well on RA today. Had an acute desatting event this evening, satting in the 70s on 15 L Venturi mask. Was transferred to the SICU urgently, placed on BiPAP with saturation coming up to 98%, high respiratory rates to 35-45. ABG shows respiratory acidosis(pH 7.33, pCO2 53, pO2 107, TCO2 30). Will continue BiPAP, diurese, repeat ABG in 40 min. Plan: Neuro: Pain: IV APAP, Dilaudid PRN, Robaxin, Lidocaine patches CV: Cardiac monitoring via cuff Continue amlodipine 10 mg, clonidipine 0.3 mg patch, Hydralazine 10 mg PRNfor SBP>180 Pulm: Aggressive IS and pulmonary toilet Continue BiPAP, repeat ABG at 1159 PM Consider intubation if desatting event, if still severely tachypneic following repeat ABG CT PE imaging once safe for transportation FEN/GI: Back down to NPO, hold TFs Hold mIVF given clinical hypervolumia Will d/c multivitamins while acutely ill and NPO Holding bowel regimen for now Check lytes daily Renal: Trend BUN/Cr, watch UOP Keep Vuong Heme: Check CBCs qdaily Lovenox 40 mg qhs for chemoppx ID: Trend WBC and fever curve Endo: POC glucose checks q6h Insulin 22 U daily + SSI Will consider transitioning to insulin gtt if persistently hyperglycemic May need to reduce insulin glargine this AM if pt will remain NPO MSK: AAT Engage PT when able Skin: Pressure ulcer prevention per SICU bundle including monitoring for device- related injuries (which include ETT, OGT, Vuong, A-line board) Wound care per ACS, has a WV in place over R gluteal area Tubes/Lines: Place another PIV May need intubation May need A-line placement for hemodynamic monitoring and ABG draws as she is a very hard stick Ppx: SCDs Lovenox for chemoppx IV Protonix while intubated Code status: FULL (discussed w/ pt on 06/21) ASHLIE VALENTINE MD PhD 06/25/2023 23:22 SICU Housestaff [phone] (Service Pager) Associated attestation - Kyle Mars MD - 06/26/2023 0037 EDT Attending Note I examined and discussed this pt with the residents on and agree with the above note Total time spent 31 min Critical Care Dx: Fluid electrolyte abn, acute resp insufficiency, pulmonary edema Pt with resp distress on floor, BIPAP in SICU, pulmonary edema on CXR, diuresis, correct lytes, will need PE CT when stabilizes, aggressive pulm toilet Kyle Mars MD [phone] * Lazaro Longoria NP - 06/20/2023 2885 EDT Inpatient Palliative Care Consultation Date of Service: 06/20/2023 Referring Service: Surgical ICU Site of Visit: Intensive Care Unit Reason for Referral: Goals of care Della Browning is a 52-year-old woman with a history of alcohol use disorder, hypertension, and type 2 diabetes who presented to [facility] on 06/12 as a transfer from [facility] in [place] after being treated there for necrotizing fasciitis (she underwent 2 debridements there prior to transfer). Since her admission here she has undergone a third debridement on 06/14, and suffered a post-operative bradycardic arrest with ROSC after 2 rounds CPP (cardiology suspects this is 2/2third-degree heart block from manipulation of ETT), and then coded a second time following extubation while on dexmedetomidine. She now has transvenous pacing wires in place and is undergoing furtherdebridements with hope for partial closure and wound VAC placement. Assessment #Goals of care Holden was unable to participate in conversation today, but her significant other Carey and her niece Ayden met with the team and agreed that changing her CODE STATUS to DNR/DNI would be most consistent with her values We also discussed whether the current restorative treatment plan is also in alignment with Holden's wishes, given statements she has made both here in the ICU and also (per family) throughout her life; it was ultimately decided to continue on the current path with frequent checks-ins with family to reassess and reevaluate Present for Visit: Holden's significant other Carey, her niece Leander, Dr Bustamante, Dr Brito, John Vallejo CM, fl Narrative: We shared with Carey and Leander our worry that, in addition to Holden making statements to theteam here that she did not want to be treated, she has also conspicuously avoided contact with the healthcare system in the past (most notably in the context of her stroke-like event a few months ago, where she did not want to go to the hospital for fear that she would ultimately be placed in a usp). In light of the fact that Holden's current path will certainly require her to be in a usp for some period of time (and very likely for the rest of her life), we talked to Carey and Leander about whether Holden would want any of the treatment she was currently receiving. When asked what Holden would say if she could be here listening to us talk about her situation and herlikely future, Carey felt that she would say that she would not want any of this, and would want to be home. At the same time, however, Carey stated that he cannot give up on her, and believes that shehas the willpower and strength required to recover from this. It is worth noting that Holden's niece Leander was an invaluable support to Lezama throughout the conversation today, and I would recommend that she be included in any future [facility] conversations. Burdensome Symptoms Pain: Unable to assess Dyspnea: Unable to assess Emotional Distress: Unable to assess Spiritual/Existential Distress: Unable to assess Palliative Performance Scale (current) 20,Total bed bound, unable to do any work, total care, minimal sips, fully conscious or drowsy possible confusion Survival Prognosis: Would you be suprised if the patient within the next year: No Assuming all diseases are allowed to run their course without disease-modifying treatment attempts,would you expect that the patient would live for more than two weeks?: No Assuming all diseases are allowed to run their course without disease-modifying treatment attempts,would you expect that the patient would live for more than six months?: No Serious Illness Conversation Goals Identified: Be physically comfortable;Be at home Fears and Worries: Receiving unwanted treatments;Loss of control Current limitations of treatment: No identified preferences for limitations to disease-focused treatments Health Care Proxy Documented?: No Distress from uncertainty about the future course of illness: Unable to assess TIME STAMP: Total time spent 80 minutes in direct floor time; >50% of time was spent in counseling or coordination of care Lazaro Longoria NP 06/20/2023 14:25 * Brooke Rinaldi RD - 06/16/2023 1433 EDTAssociated Order(s): CONSULT NUTRITION Brief Nutrition Note 52 y.o. female with a history of HTN and T2DM who presented as a transfer from [facility] on 06/12 with necrotizing fasciitis. S/p debridement x2 at OSH and s/p debridement at [facility] on 06/14.Post-operative bradycardic arrest with ROSC after 2 rounds CPP (cardiology suspect 2/2 third degreeHB from manipulation of ETT). - Chato Patel MD 4.21 Nutrition consult received for initiation of enteral nutrition. Propofol currently infusing at an average of 30 mL/hr providing ~ 792 calories/day. Recommend initiation of enteral nutrition as outlined below. Phos is elevated, please include Phos and Mag with daily labs and monitor trends. Estimated Nutrition Needs: Using 86.2 kg PSU 2003b (98 degrees F and MVE average of 6.5) vs MSJ x 1.0 = 1496 vs 1441 kcals/day 2.0 g/kg protein (using IBW of 52.4 kg) = 105 g protein/day Enteral Nutrition - Continuous - Promote at 12 mL/hr + Prosource 60 mL TID - Water flush per medical team - Goal TF would provide 648 calories, 113 g protein, and 242 mL water daily (1440 calories with propofol infusing at an average of 30 mL/hr) Pertinent Labs: Lab Results Component Value Date/Time NA 128 (L) 06/16/2023 11:33 K 4.7 06/16/2023 11:33 CO2 14 (L) 06/16/2023 11:33 CL 103 06/16/2023 11:33 BUN 39 (H) 06/16/2023 11:33 CREATININE 1.11 (H) 06/16/2023 11:33 GLUCOSEPOC 200 (H) 06/16/2023 11:36 CALCIUM 8.5 06/16/2023 11:33 PHOS 8.0 (H) 06/16/2023 08:05 MG 1.9 06/15/2023 05:10 Lab Results Component Value Date/Time HGBA1C 8.2 (H) 06/14/2023 04:55 GLUCOSEPOC 200 (H) 06/16/2023 11:36 GLUCOSEPOC 199 (H) 06/16/2023 10:57 GLUCOSEPOC 160 (H) 06/16/2023 04:56 GLUCOSEPOC 164 (H) 06/16/2023 00:14 GLUCOSEPOC 155 (H) 06/15/2023 20:23 No results found for: ALT, AST, ALKPHOS, TBIL, TRIG Nutrition Risk Level: High (1) BROOKE RINALDI RD, CD (Call PAS or use Figure 1 Web [email or web address] to page RD covering this unit) * Cullen Sam MD - 06/16/2023 0845 EDT Images from the original note were not included. EP CONSULTATION NOTE Date of Consult: 06/16/2023 Date of Admission: 06/13/2023 Reason For Admission: NecFas Referring MD: Paulette Hoover, * Reason for Consultation: Bradycardic arrest Assessment/Recommendations: 52yoF admitted for surgical management of necrotizing fasciitis with a course complicated by 2x episodes of CHB, the first brief and occurring during ETT manipulation, the second while on dexmedetomidine but more sustained and leading to a bradycardic arrest. Due to the recurrence, permanent pacingsupport may be indicated, however this cannot be performed on weekends and should not be performed until a systemic infectious process is ruled out. Recommendations: -Agree with transvenous pacing wire placement -As she currently has an adequate intrinsic rate, please change backup pacing rate to 40-50. This can be increased if CHB occurs again -We will continue to follow to determine need for/timing of PPM placement. -Please repeat blood cultures here as documentation from yesterday indicates at least one blood culture from the OSH is positive and we would need to be certain she is not bacteremic prior to considering permanent device implantation Case dicussed with Dr. Beckham Thank you for involving us in the care of this patient. Please call with any questions. Cullen Sam MD Cardiovascular Disease Fellow Interval events Extubated Recurrent CHB/bradycardic arrest Re-intubated H PS No past medical history on file. No past surgical history on file. Social History Family History Social History Tobacco Use Smoking status: Not on file Smokeless tobacco: Not on file Substance Use Topics Alcohol use: Not on file No family history on file. Medications No medications prior to admission. Allergies Allergies Allergen Reactions Aspirin Hives Cymbalta [Duloxetine] Other (See Comments) Depression, suicidal ideation Lyrica [Pregabalin] Nausea And Vomiting Penicillins Hives Review of Systems: Unable to be performed Physical Exam: VS: Patient Vitals for the past 8 hrs: BP Heart Rate Resp SpO2 FIO2 % 06/16/23 0801 -- (!) 0 BPM 20 -- -- 06/16/23 0645 91/63 68 BPM 14 100 % -- 04/21/24 0630 95/63 69 BPM 12 100 % -- 06/16/23 0615 125/71 74 BPM 18 100 % -- 06/16/23 0600 115/60 71 BPM 21 100 % -- 06/16/23 0523 91/57 61 BPM 20 100 % -- 06/16/23 0501 (!) 87/55 65 BPM 16 99 % -- 06/16/23 0400 93/61 64 BPM 12 100 % -- 06/16/23 0346 -- 80 BPM 20 100 % 30 % 06/16/23 0300 (!) 112/97 79 BPM 14 100 % -- 06/16/23 0200 101/51 63 BPM 13 100 % -- 06/16/23 0115 116/77 66 BPM 19 100 % -- 06/16/23 0104 111/64 65 BPM 13 100 % -- 06/16/23 0100 (!) 89/73 63 BPM 9 100 % -- Weight: Weight : 86.2 kg (190 lb) BMI: Body mass index is 33.66 kg/m??. GEN: Intubated, sedated Resp: intubated CV: Normal rate, regular rhythm. Normal S1/S2. No murmurs Abd: Soft, non-distended Ext: Warm and well-perfused distally Data: Data reviewed, pertinent findings include: 0033- sinus rhythm converts to 1st deg avb, then to Mobitz 1 (Wenkebach) 0036 Progression to CHB Hoahaoism of NSR- on 3mcg/min norepinephrine Associated attestation - Saran Beckham MD - 06/16/20232033 EDT I saw and examined the patient with the resident/fellow/nurse practioner. I agree with the findingsand plan of care documented in the resident's/fellow's note. Likely vagally mediated--can have transient CHB with these episodes. TVP is reasonable, and will reassess need for PPM during hospital course. * Chloe Vazquez MD - 06/15/2023 1328 EDT Images from the original note were not included. EP CONSULTATION NOTE Date of Consult: 06/15/2023 Date of Admission: 06/13/2023 Reason For Admission: NecFas Referring MD: Paulette Hoover, * Reason for Consultation: Bradycardic arrest Assessment/Recommendations: Overall, in a patient 52yoa with no prior cardiac history, it is likely that her transient CHB was mediated by a vagal response to ETT adjustments. Other possible causes include medications, but no obvious offending agents are in her MAR and lyme disease, which is possible as she had some reports of a bite wound that precipitated her nec fas. Most likely, this was a vagal response mediated by ETT repositioning. The gradual onset of progressive AVB and the return to normal AV conduction suggest a transient high vagal tone. -Consider decreasing PEEP (currently 12) as able (if oxygenating well) to reduce intrathoracic pressure- at the primary team's discretion -Check screening TTE, not an urgent study -Check Lyme Ab -Hold all AVN blockade -Continue telemetry monitoring -Atropine/Pads at bedside in case of recurrence -Plan for 30-day monitor on discharge vs. ILR -If recurrent, then further workup for infectious/compressive etiology as well as consideration of PPM should take place Case to be discussed with Dr. Santo, seen in am by Drs. Vazquez and Chapincito. Thank you for involving us in the care of this patient. Please call with any questions. Foreign Pastor MD Mortgage Sales Manager HPI: 52yoF with PMH HTN, DM, who presented as a transfer on 06/13/23 for treatment of necrotizing fasciitis. Per chart review, patient had reported roughly 1/5 weeks of worsening pain in R gluteal area. When the pain became intolerable, she presented to [facility] where two attempts at debridement were made, but ultimately it was felt patient required transfer to [facility] for definitive treatment. She has been managed in SICU with Clinda/Merrem/Vanc. Tonight at ~0030 patient suffered a bradycardic arrest in the midst of ETT adjustments per SICU team. Per Dr. Blue's note, chest compressions in progress, 1 amp epi already given. 2 amps calcium and sodium bicarb given. At the time of consult, patient has returned to NSR @ 90bpm and is intubatedand requiring vasopressor support on 3mcg/min Levophed. EP is consulted for bradycardia, complete heart block in the setting of ETT adjustments. PMH PSH No past medical history on file. No past surgical history on file. Social History Family History Social History Tobacco Use Smoking status: Not on file Smokeless tobacco: Not on file Substance Use Topics Alcohol use: Not on file No family history on file. Medications No medications prior to admission. Allergies Allergies Allergen Reactions Aspirin Hives Cymbalta [Duloxetine] Other (See Comments) Depression, suicidal ideation Lyrica [Pregabalin] Nausea And Vomiting Penicillins Hives Review of Systems: A 13 point review of systems was completed. Pertinent findings listed above in HPI. Physical Exam: VS: Patient Vitals for the past 8 hrs: BP Pulse Heart Rate Resp Temp SpO2 O2 Device 06/15/23134 130/69 -- 89 BPM 10 37.1 ??C (98.7 ??F) 100 % -- 06/15/23 0130 135/65 -- 89 BPM 12 -- 100 % -- 06/15/238 136/66 -- 90 BPM 13 -- 100 % -- 06/15/236 137/66 -- 90 BPM (!) 2 -- 100 % -- 06/15/234 140/66 -- 91 BPM 17 -- 100 % -- 06/15/23 012 138/67 -- 92 BPM 16 -- 100 % -- 06/15/23 0120 134/67 -- 92 BPM (!) 0 -- 99 % -- 06/15/23 0118 129/66 -- 94 BPM 9 -- -- -- 06/15/23 0116 122/65 -- 94 BPM 10 -- -- -- 06/15/23 0114 114/65 -- 94 BPM 13 -- -- -- 06/15/23 0112 123/66 -- 95 BPM 21 -- 96 % -- 06/15/23 0110 93/74 -- 97 BPM 25 -- 93 % -- 06/15/23107 113/88 -- 98 BPM 19 -- 93 % -- 06/15/23104 (!) 149/139 -- 94 BPM 19 -- 94 % -- 06/15/23101 105/62 -- 93 BPM 22 -- 93 % -- 06/15/23 0101 -- -- 93 BPM 20 -- 92 % -- 06/15/23 0100 113/57 -- 93 BPM 23 -- 92 % -- 06/15/23 0054 (!) 147/73 -- 103 BPM 25 -- (!) 87 % -- 06/15/23 0052 (!) 173/124 -- (!) 112 BPM 23 -- (!) 83 % -- 06/15/23 0050 (!) 191/98 -- (!) 114 BPM 21 -- -- -- 06/15/23 0036 (!) 75/45 -- (!) 132 BPM (!) 106 -- (!) 84 % -- 06/15/23 0033 -- -- 57 BPM 19 -- 99 % -- 06/15/23 0032 -- -- (!) 39 BPM 15 -- -- -- 06/15/23 0031 -- -- 76 BPM 15 -- 100 % -- 06/15/23 0030 94/54 -- 75 BPM 16 -- 100 % -- 06/15/23 0020 -- -- 77 BPM 16 -- 100 % -- 06/15/23 0015 (!) 143/117 -- 81 BPM 18 -- 100 % -- 06/15/23 0010 -- -- 91 BPM 21 -- -- -- 06/15/23 0006 (!) 153/67 -- 92 BPM 20 -- 100 % -- 06/15/23 0005 (!) 153/67 -- 88 BPM 16 -- 99 % -- 06/15/23 0000 (!) 178/83 -- 89 BPM 20 -- 100 % -- 06/14/23 2354 134/64 -- -- -- 36.6 ??C (97.9 ??F) 100 % Intubated 06/14/23 2100 123/74 -- 83 BPM 16 -- 97 % -- 06/14/232018 93/45 -- 83 BPM 18 -- 95 % -- 06/14/232012 -- 82 83 BPM 20 36.7 ??C (98.1 ??F) -- -- 06/14/231999 102/51 -- 83 BPM 25 36.7 ??C (98.1 ??F) 100 % None 06/14/23 1900 97/68 -- 84 BPM 20 -- 96 % -- 06/14/23 1800 113/65 -- 86 BPM 20 -- 98 % -- Weight: Weight : 86.2 kg (190 lb) BMI: Body mass index is 33.66 kg/m??. GEN: Intubated, sedated Resp: intubated CV: Normal rate, regular rhythm. Normal S1/S2. No murmurs Abd: Soft, non-distended Ext: Warm and well-perfused distally Data: Data reviewed, pertinent findings include: 0033- sinus rhythm converts to 1st deg avb, then to Mobitz 1 (Wenkebach) 0036 Progression to CHB Hoahaoism of NSR- on 3mcg/min norepinephrine ADDENDUM: Patient seen on rounds this AM with Dr. Beckham. Since her last evaluation she has been extubated to HFNC. Review of her telemetry shows no further episodes of high grade AVB. Some Sinus bradycardiato high 50s seen possibly due to ongoing precedex. As mentioned above- the events overnight were likely vagal mediated due to ETT repositioning which can frequently be a vagal stimulus. No further work up needed at this time. - CTM on telemetry, if she has recurrent events not associated with known vagal triggers please reengage our team - wean precedex as allowablye EP will sign off. Please reconsult as necessary. Associated attestation - Saran Beckham MD - 06/15/20231941 EDT I saw and examined the patient with the resident/fellow/nurse practioner. I agree with the findingsand plan of care documented in the resident's/fellow's note. * Carlos Jennings DO - 06/15/2023 0002 EDT SICU Admit Note Admit Date: 06/13/2023 Primary team: ACS CC: NSTI LLE Procedures: Debridement HPI: Della Browning is a 52 y.o. female with history s/f HTN, T2DM (diet controlled) admitted forNSTI of the right gluteal region as a transfer from [facility]. Stated on presentation that she had symptoms starting about a week and a half ago with a burning sensation that was similar to a previous spider bite. She stated that due to progressive pain and weakness she made the decision to present to the ED. She is s/p debridement x2 as the outside hospital. She is now POD#0 s/p debridement at [facility]. She arrives to SICU intubated, sedate and on propofol and Neophedrine gtts. She received atotal of 4 units PRBC and 1L of crystalloid intraoperatively. No past medical history on file. No past surgical history on file. Allergies Allergen Reactions Aspirin Hives Cymbalta [Duloxetine] Other (See Comments) Depression, suicidal ideation Lyrica [Pregabalin] Nausea And Vomiting Penicillins Hives No family history on file. Subjective: Intubated and sedated. Objective: Vital Signs: BP: (75-191)/(45-139) Heart Rate: [31 BPM-132 BPM] Temp: [35.6 ??C (96.1 ??F)-37.3??C (99.1 ??F)] Resp: [0-106] SpO2: [83 %-100 %] I/O: Current Shift: 06/13 2300 - 06/14 0659 In: 1678 [I.V.:1239] Out: 460 [Urine:460] 24 hrs: 06/12 2299 - 06/13 2259 In: 6032.5 [P.O.:725; I.V.:2766.5] Out: 1353 [Urine:1113; Drains:240] OR totals: EBL: 300 mL IVF: 1000 mL UOP: 75 mL Tubes: ETT, OG, Vuong Lines: PIV x2 Infusions/Rates: Propofol 20, Reinaldo 40 Vent: Mode: VC-AC Rate: 14 bmp Vt 410 mL PS: PEEP (S) 10 cmH2O FiO2: (S) 50 % Physical Exam: Gen: Intubated and comfortably sedated Resp: Mechanical breath sounds b/l. CV: S1, S1 without audible murmur, Abd: Protuberant, non tender, non distended : Vuong in place draining clear yellow urine Ext: WWP Neuro: Following commands when off sedation, difficulty moving RLE. Skin/Wound: Right lower extremity wound without surrounding crepitus. Dressing CDI Micro: Surgical cultures pending Imaging: XR CHEST PORTABLE 1 VIEW Result Date: 06/15/2023 1. Endotracheal tube tip terminates in the proximal right mainstem bronchus, recommend retracting afew centimeters. There appears to be consolidation of the left lower lobe 2. Right-sided CVC appropriately positioned, tip at the superior cavoatrial junction. Labs: CBC: Recent Labs 06/14/23 1349 06/14/23 1842 06/15/23 0101 06/15/23 0510 WBC 34.07* 31.96* 49.85* 38.40* RBC 1.98* 2.28* 3.64* 3.24* HGB 6.4* 7.1* 11.1* 9.9* HCT 17.6* 19.8* 30.6* 27.0* MCV 89 87 84 83 MCH 32.3 31.1 30.5 30.6 MCHC 36.4* 35.9 36.3* 36.7* PLT 334 354 388* 329 NEUTROABS 31.96* 29.75* 37.84* -- BMP: Recent Labs 06/14/23 1727 06/15/23 0101 06/15/23 0510 NA 121* 126* 125* K 4.2 4.5 4.3 CL 98 99 102 CO2 16* 20* 16* BUN 41* 38* 38* CREATININE 0.98 0.93 0.97 CALCIUM 6.8* 7.9* 7.5* MG -- -- 1.9 PHOS -- -- 6.0* ABG: No results for input(s): PHISTAT, PCOISTAT, POISTAT, POCTCO2, [id number], POCFIO2 in the last 72 hours.Coags: Recent Labs 06/15/23 0110 PROTIME 11.4 INR 1.0 PTT 27 Assessment: Della Browning is a 52 y.o. female with history s/f HTN, T2DM admitted for NSTI of the right Gluteal region now POD 0 soft tissue debridement Critical care problems include mechanical ventilation. Plan: Neuro: Pain: Multimodal pain control with Acetaminophen and Dilauded Sedation: Propofol, titrate to RASS -1 Monitor motor function or RLE CV: Cardiac monitoring via cuff Goal SBP >90 and MAP 65 Wean Reinaldo as tolerated Pulm: Remain intubated for now Aggressive IS and pulmonary toilet once extubated FEN/GI: Diet: NPO while intubated, consider TF/TPN if remains intubated >48hrs IV PPI while intubated Bowel regime Check lytes daily and replenish PRN Renal: Trend BUN/Cr, watch UOP Keep Vuong. Heme: Check CBCs q8 hold chemoppx for expected operation ID: Trend WBC and fever curve Abx Meropenem, Clynda, Vanc Endo: POC glucose checks q6 and SSI insulin regimen MSK: Monitor RLE function Engage PT when able Skin: Pressure ulcer prevention per SICU bundle including monitoring for device- related injuries (which include ETT, OGT, Vuong, A-line board) Wound care per primary team (ACS) Right buttock wound, no other skin concerns from nursing at this time Tubes/Lines: Plan to keep current lines and tubes Will place A line if unable to wean pressors Ppx: SCDs Hold chemoppx IV Protonix while intubated Code status: Full Code CARLOS DO YI 06/15/2023 5:52 SICU Housestaff [phone] (Service Pager) documented in this encounter OR Notes * OR Surgeon - Moo Monique MD - 07/31/2023 1646 EDT OPERATIVE REPORT SERVICE DATE: 07/31/2023 PREOPERATIVE DIAGNOSIS: Necrotizing soft tissue infection of right buttock and perineum. POSTOPERATIVE DIAGNOSIS: Necrotizing soft tissue infection of right buttock and perineum. PROCEDURE: Debridement of buttock wound and placement of split-thickness skin graft with right thigh as donor site, 162 cm2 grafted. SURGEON: Moo Monique MD PRINTING PRESSMAN: Isabell Nolasco MD ANESTHESIA: General endotracheal anesthesia. ESTIMATED BLOOD LOSS: 75 mL INTRAVENOUS FLUIDS: 800 mL URINE OUTPUT: 600 mL FINDINGS: Beefy red granulation tissue to the wound that bled easily. INDICATIONS: The patient is a 52-year-old female that has been admitted for several weeks with a necrotizing soft tissue infection of her right gluteal region. She has undergone multiple debridementsand currently has a wound VAC in place that we have been using MicroMatrix and Cytal skin applications on. The wound was at the point where it was ready for split-thickness skin graft. We talked to her about the risks and benefits of proceeding and she agreed to proceed. NARRATIVE: The patient was taken to the operating room. She was intubated on her hospital bed and placed in the prone position on the operating room table. We made sure to relieve all pressure areas.We started off by prepping and draping her right buttock and right thigh circumferentially. Once this was done after the WHO 1 and WHO 2 were completed, we started off by using the Versajet to debride the wound. This was fairly straightforward and the wound bled easily. Hemostasis was controlled with epinephrine-soaked pads. Once we had the wound debrided, we turned our attention to the posteriorright thigh where 2 strips of skin were harvested using the [employer] dermatome to a 0.1 inch thickness. The skin were meshed in a 1:1 fashion and placed on the back table. Epinephrine-soaked pads were placed to the donor site. We then returned back to our wound bed and made sure we had adequately debrided and hemostatic wound bed. Once I was satisfied with the debridement and hemostasis, the skin was placed with the dermal side down, we used Artiss tissue glue down to the bed and then placed the skin 1:1 we had plenty of skin in place. Once the skin was placed, we placed a layer of Conformant and then a layer of 4 x 4 and then a bolster dressing made of 12 x 12 gauze was placed and tied into place using 2-0 silk sutures. We then placed a bulky dressing over the bolster for the donor site. Once we had adequate hemostasis, I placed an absorbent Tegaderm and then an 18 x 18 gauze and were wrapped and a 6-inch Edy wrap. The patient was then placed supine on her bed. She was awakened, extubated, and transported to the recovery room in stable condition. Unless otherwise noted, there were no complications, no blood loss, no cultures obtained, no specimens removed, and no drains retained. Moo Monique MD / RA/EC Confirmation: [id number] Dictation ID: [id number] cc: * OR Surgeon - Zahira Veras MD - 07/10/2023 0289 EDT WOUND VAC I&D PERINEUM (R) Operative Note Date: 07/10/2023 Location: [facility] OR Name: Della Browning, : 1970, Diagnosis Pre-Op Diagnosis Codes: * Necrotizing soft tissue infection [M79.89] Post-op Diagnosis * Necrotizing soft tissue infection [M79.89] Procedures * WOUND VAC I&D PERINEUM Surgeons * Efraín Rueda MD - Primary * Zahira Veras MD - Resident - Assisting Procedure Summary Anesthesia: General ASA: III Estimated Blood Loss: No Blood Loss Documented Total IV Fluids: see anesthesia log LDAs: Peripheral IV 07/04/23 0501 Right;Anterior;Medial;Distal Upper Arm (Active) Rectal Tube With balloon (Active) Urethral Catheter (Active) Wound 06/14/23 Buttock;Rectum (Active) Wound 07/10/23 Pressure Injury Right;Medial Buttock (Active) [REMOVED] Non-Surgical Airway (Removed) Staff: Retail Pharmacist: Liat Denise RN Scrub Person: Ryan Hampton Patient Wholesale Representative: Adrian Dumont Indications: Della Browning is an 52 y.o. female who is having surgery for wound vac therapy change Procedure Details: The patient was seen in the preoperative area. The risks, benefits, complications, treatment options, non-operative alternatives, expected recovery and outcomes were discussed with the patient. The possibilities of reaction to medication, pulmonary aspiration, injury to surrounding structures, bleeding, recurrent infection, the need for additional procedures, failure to diagnose a condition, and creating a complication requiring transfusion or operation were discussed with the patient. The patient concurred with the proposed plan, giving informed consent. The site of surgery was properly noted/marked if necessary per policy. The patient has been actively warmed in preoperative area. Findings: Removed 3 silk sutures near previous rectal repair, area was gently probed and no obviousdefect was identified, sacral area of wound debridement, hemostasis with electrocautery, wound gently irrigated with saline, xeroform applied over wound base, wound vac replaced with tunneled NGT tube hooked up to wall suction Narrative: Patient was placed in left lateral decubitus position, the left gluteal wound was cleansed, and draped, a time out was performed in the standard fashion. The wound bed was examined and there was no obvious fecal contamination with clean acellular matrix overlying the majority of the wound bed. The wound was then gently irrigated with liters of warmed saline. The sacral aspect of the wound was debrided lightly with curette to pinpoint bleeding, hemostasis was achieved with electrocautery. The previous area of rectal closure was inspected and three silk sutures were cut and removed. The area was probed gently with scissors and there was no obvious opening into the rectum so no further reinforcement was indicated. A large sheet of xeroform was placed over the wound bed and a black sponge wasfit to the wound. Wound measured (Depth Tunneled 4cm, max depth 3cm, width 11cm, length 22cm). A nasogastric tube was tunneled into the black sponge and placed to wall suction. There was an initial leak at the medial aspect of the wound so further reinforcement drapes were placed with good effect. Wound vac held suction on LCWS without further issue. Patient was extubated and transported to PACU in stable condition. Complications: None; patient tolerated the procedure well. Disposition: PACU - hemodynamically stable. Condition: stable Specimens:None Implants: Wound vac, xeroform ZAHIRA VERAS MD 07/16/2023 6:19 Surgery PGY1 * OR Surgeon - Zahira Veras MD - 06/26/2023 2330 EDT Images from the original note were not included. debridement of perianal wound, wound vac placement Operative Note Date: 06/26/2023 Location: [facility] OR Name: Della Browning, : 1970, Diagnosis Pre-Op Diagnosis Codes: * Necrotizing soft tissue infection [M79.89] Post-op Diagnosis * Necrotizing soft tissue infection [M79.89] Procedures * debridement of perianal wound, wound vac placement Surgeons * Efraín Rueda MD - Primary * Zahira Veras MD - Resident - Assisting Procedure Summary Anesthesia: General ASA: IV Estimated Blood Loss: No Blood Loss Documented Total IV Fluids: see anesthesia OPERATIVE REPORT SERVICE DATE: 06/19/23 PREOPERATIVE DIAGNOSIS: Necrotizing fasciitis POSTOPERATIVE DIAGNOSIS: Necrotizing fasciitis PROCEDURE: Debridement right buttock SURGEON: Jaren Rueda MD ASSISTANTS: Ramy Veras MD ANESTHESIA: General endotracheal intubation INDICATIONS: Della Browning is a 52 y.o. female with hypertension and diabetes who presented to an outside hospital with 10 days of right buttock pain and weakness. There she was found to have a necrotizing soft tissue infection for which she underwent serial debridement. She was transferred to [facility] for further care and was initially anemic on arrival with ongoing bleeding from her surgical siterequiring transfusion. She was last taken to the OR at [facility] on 06/18 for serial debridement where largely healthy tissue, no new pockets and was packed with Dakins. FINDINGS: Scant fibrinopurulent tissue throughout wound. Overall quite healthy appearing, granulation tissue in medial wound. No new pockets of infection found. Wound debrided with versa jet. Hemostasis with electrocautery. Remainder of wound fit with three pieces of wound vac foam, 6cm tunneled component, distal edge and main sponge. NG tube lumen tunneled into main wound vac sponge, placed to suction. Post-debridement picture below. Measurements: Depth Tunneled 6cm, max depth 3.5cm, width 12cm, distal width 10, proximal gluteal width 11cm, length 22cm ZAHIRA VERAS MD 06/27/2023 0:31 Surgery PGY1 * OR Surgeon - Dana Miner MD - 06/19/2023 1430 EDT Images from the original note were not included. OPERATIVE REPORT SERVICE DATE: 06/19/23 PREOPERATIVE DIAGNOSIS: Necrotizing fasciitis POSTOPERATIVE DIAGNOSIS: Necrotizing fasciitis PROCEDURE: Incision and debridement right buttock SURGEON: Ramón Peraza MD ASSISTANTS: Dana Miner MD; Isabell Nolasco MD ANESTHESIA: General endotracheal intubation INDICATIONS: Della Browning is a 52 y.o. female with hypertension and diabetes who presented to an outside hospital with 10 days of right buttock pain and weakness. There she was found to have a necrotizing soft tissue infection for which she underwent serial debridement. She was transferred to [facility] for further care and was initially anemic on arrival with ongoing bleeding from her surgical siterequiring transfusion. She was taken to the OR at [facility] on 06/14 for hemostasis and was found to have multiple undrained pockets of purulent fluid requiring extensive additional debridement. During thiscase there was an iatrogenic full thickness rectal injury which was repaired primarily. She was subsequently managed with antibiotics and local wound care on the floor and was planned for OR takebacktoday for re-debridement. She was counseled on the risk and benefits of proceeding to the OR and after undergoing an informed consent process agreed to proceed to the operating room. FINDINGS: Scant fibrinopurulent tissue throughout wound. Overall quite healthy appearing. No new pockets of infection found. Wound debrided and pulse lavaged. Inferior aspect closed loosely with 2-0 nylon vertical mattress sutures x 3. Remainder of wound re-packed with Dakins soaked kerlix. Post-debridement picture below. NARRATIVE: The patient was identified in the preoperative area and after having been confirmed to have gone through an informed consent process was brought to the operating room. Anesthesia ensured they had alladequate lines and monitors, antibiotics were confirmed to have been recently administered on the floor, Venodyne's were placed on the patient. She was already intubated. The patient was then placed in the prone position on the operating table then prepped and draped in the normal sterile fashion. Prior to any incisions or injections, a safety timeout was performed. The wound was closely examined and any areas of devitalized tissue were debrided using a combination of blunt, sharp, and electrocautery dissection. The pulse lavage was used to irrigate the wound with 3L normal saline. Hemostasis was achieved. The inferior aspect of the wound was closed loosely with three 2-0 nylon vertical mattress sutures. The remainder of the wound was packed with 3 Dakins soaked kerlix and dressed with ABDs and metapore tape. FLUID: 600 mL ESTIMATED BLOOD LOSS: 10mL URINE OUTPUT: 50 mL. SPONGE AND COUNTS: Correct at the end of procedure. DRAINS/PACKS: Kerlix x 2 in right gluteal wound DISPOSITION: To SICU in stable condition SPECIMEN: None Unless otherwise noted, there were no complications, no blood loss, no cultures obtained, no specimens removed, and no drains retained. Dr. Peraza was present and scrubbed for the entire procedure. DANA MINER MD 14:30 06/19/23 Associated attestation - Ramón Peraza MD - 07/16/2023 1120 EDT I was present for the cooper elements of the procedure. Please note the VAC was >50 square cm. The area of wound debridement was 50 square cm * OR Surgeon - Kyle Mars MD - 06/17/2023 1452 EDT Images from the original note were not included. OPERATIVE REPORT SERVICE DATE: 06/17/23 PREOPERATIVE DIAGNOSIS: Necrotizing fasciitis POSTOPERATIVE DIAGNOSIS: Necrotizing fasciitis, total wound ~ 20 x 25 cm^2 PROCEDURE: Incision and debridement right buttock , excisional debridement down to muscle and fascia SURGEON: Kyle Mars MD ASSISTANTS: Dana Miner MD ANESTHESIA: General endotracheal intubation INDICATIONS: Della Browning is a 52 y.o. female with hypertension and diabetes who presented to an outside hospital with 10 days of right buttock pain and weakness. There she was found to have a necrotizing soft tissue infection for which she underwent serial debridement. She was transferred to [facility] for further care and was initially anemic on arrival with ongoing bleeding from her surgical siterequiring transfusion. She was taken to the OR at [facility] on 06/14 for hemostasis and was found to have multiple undrained pockets of purulent fluid requiring extensive additional debridement. During thiscase there was an iatrogenic full thickness rectal injury which was repaired primarily. She was subsequently managed with antibiotics and local wound care on the floor and was planned for OR takebacktoday for re-debridement. She was counseled on the risk and benefits of proceeding to the OR and after undergoing an informed consent process agreed to proceed to the operating room. FINDINGS: Scattered necrotic tissue throughout wound bed including in ischiorectal fossa tunnel (5cm in depth). Rectal repair intact. Post-debridement picture with ruler in ischiorectal fossa tunnel below: NARRATIVE: The patient was identified in the preoperative area and after having been confirmed to have gone through an informed consent process was brought to the operating room. Anesthesia ensured they had alladequate lines and monitors, antibiotics were confirmed to have been recently administered on the floor, Venodyne's were placed on the patient. She was already intubated. The patient was then placed in the prone position on the operating table then prepped and draped in the normal sterile fashion. Prior to any incisions or injections, a safety timeout was performed. A picture of the wound pre-debridement was uploaded to the patient's chart. The wound was closely examined and any areas of devitalized tissue were debrided using a combination of blunt, sharp, and electrocautery dissection. The pulse lavage was used to irrigate the wound with 3L normal saline. Thewound was packed with 3 Dakins soaked kerlix and dressed with ABDs and metapore tape. FLUID: 200 mL ESTIMATED BLOOD LOSS: 15mL URINE OUTPUT: 50 mL. SPONGE AND COUNTS: Correct at the end of procedure. DRAINS/PACKS: Kerlix x 3 in right gluteal wound DISPOSITION: To SICU in stable condition, intubated SPECIMEN: None Unless otherwise noted, there were no complications, no blood loss, no cultures obtained, no specimens removed, and no drains retained. Dr. Mars was present and scrubbed for the entire procedure. DANA MINER MD 14:52 06/17/23 Attending Note I was present and scrubbed for all critical portions of the case noted above on 06/17/23 and agree with the above note Kyle Mars MD [id number] * OR Surgeon - Moo Monique MD - 06/14/2023 9631 EDT OPERATIVE REPORT SERVICE DATE: 06/14/23 PREOPERATIVE DIAGNOSIS: necrotizing soft tissue infection POSTOPERATIVE DIAGNOSIS: necrotizing fasciitis PROCEDURE: Excisional debridement of right buttock necrotizing fasciitis, primary repair of rectal injury SURGEON: Moo Monique MD ASSISTANTS: AYDEN ALEXANDER MD PGY-4 ANESTHESIA: General endotracheal intubatio. INDICATIONS: Della Browning is a 52 y.o. female with medical history significant for hypertensionand type 2 diabetes who presented to an outside hospital with about 10 days of right buttock pain and weakness. There she was found to have a necrotizing soft tissue infection and she underwent debridement there twice. She was subsequently transferred to [facility] for further management. She was anemicon arrival and had ongoing bleeding from her surgical site requiring transfusion. Given this plan was made to return to the OR for hemostasis and possible wound vac placement. She was counseled on the risk and benefits of proceeding to the OR and after undergoing an informed consent process agreed to proceed to the operating room. FINDINGS: Necrotizing fasciitis with multiple undrained pockets of purulent fluid requiring extensive additional debridement. Iatrogenic full-thickness injury to the distal rectum repaired primarily and buttressed with perirectal fascia. Final wound dimensions measuring [id number] cm. NARRATIVE: The patient was identified in the preoperative area and after going through an informed consent process was brought to the operating room and placed on the table in the supine position. Anesthesia ensured they had all adequate lines and monitors, antibiotics were administered, SCDs were placed on the patient, and the patient underwent general endotracheal anesthesia without complication. The patient was then positioned in the prone position with careful padding of her extremities. The patient was then prepped and draped in the normal sterile fashion. Prior to any incisions or injections, a safety timeout was performed. Old clots were removed from the wound bed. Moving systematically from one quadrant of the wound to the next, we debrided devitalized fat sharply using Gutierrez scissors. Once we incised this devitalized fat there were several areas throughout the base of the wound where we found foul-smelling tissue with necrotic fascia and pockets of purulent fluid. This was debrided extensively requiring extension of the borders of the wound. Skin, subcutaneous tissue, fascia, and periosteum overlying the fascia required debridement. We sent some of this tissue for culture. We did inadvertently make an enterotomy in the distal rectum approximately 2-3 cm from the anus during debridement. This enterotomy measured 3 mm and was repaired primarily using [id number] 3-0 silk suture. The surrounding perirectal fascia was closed over our repair using interrupted 3-0 silk suture to buttress the repair. The final dimensions of the wound measured 20 cm x 15 cm x 9 cm. We then irrigated the wound copiously with warm saline and ensured hemostasis carefully. There was a small arteriole with pulsatile bleeding in the inferomedial portion of the wound which seemed to be responsible for the majority of her ongoing bleeding from the wound bed. This was ligated with a 2-0 silk suture ligature. Electrocautery was used to ensure hemostasis throughout the remainder of the wound bed. Once hemostasis was achieved, we packed the wound with two 0.25% Dakin's-soaked Kerlix. These were tied together. We then covered with packing with 12 x 12 and 18 x 18 gauze and Medipore tape. The patient was returned to the supine position on her hospital bed and was transferred to the SICU intubated and sedated on low-dose phenylephrine. FLUID: 1000 mL, 2 units pRBCs ESTIMATED BLOOD LOSS: 300 mL URINE OUTPUT: 75 mL. SPONGE AND COUNTS: Correct at the end of procedure. DRAINS/PACKS: two Dakin's-soaked Kerlix in the wound bed DISPOSITION: to SICU intubated and sedated on low-dose phenylephrine SPECIMEN: right buttock tissue sent for culture Unless otherwise noted, there were no complications, no blood loss, no cultures obtained, no specimens removed, and no drains retained. Dr. Monique was present and scrubbed for the entire procedure. AYDEN ALEXANDER MD 19:42 06/15/23 documented in this encounter Miscellaneous Notes * Plan of Care - Stan Leigh RN - 08/22/2023 4333 EDT Problem: Daily Care Plan Goals Goal: Care Plan Documentation Flowsheets (Taken 08/21/2023 191) Area of Focus: Sleep Goal This Shift: rest Note: Data: HD#70. Pt admitted with nec fas s/p multiple I&D's and skin graft. Dressings to graft anddonor site CDI. Pt reports pain 8-9/10. Independently walking to BR with walker. Action: Meds given per APR. PRN oxycodone given for pain. Vitals monitored. Hourly checked. Response: Pt slept well this shift with no complaints. Call marroquin within reach. * Plan of Care - Parisa Bowman RN - 08/21/2023 1630 EDT Problem: Daily Care Plan Goals Goal: Care Plan Documentation Flowsheets (Taken 08/21/2023 0700) Area of Focus: Pain/ Comfort Goal This Shift: Pt will report adequate pain control Note: Data: Pt A&O x 3. Going around in the hallway in the wheel chair independently. Pain reports 7-8/10. Action: Meds are administered per MAR. Walks to the bathroom to void. Hourly rounds and checks continue. Response: Pt worked with OT. Pt also working with dietetic nurse for more insulin education for discharge. PARISA BOWMAN RN 08/21/2023 16:30 * Diabetes Education - Maite Hua RN - 08/21/2023 1359 EDT Diabetes Nurse Clinician Education Note: Assessment/Education: f/u with [facility] today to check on Dexcom status. She calibrated this morning with Endocrinology PALS SPECIALIST and that was helpful. Reviewed insulin regimen and Metformin as well as insulin pen process using training pen and home needle with 2 caps. Her process is adequate. She has all written education materials and one touch verio flex glucometer. She tells me she is discharging tomorrow. Recommendations: Reminder that POCT FS need to continue when patients are using CGM devices inpatient. Supplies: Supplies needed for d/c: one touch verio test strips and one touch delica 33g gauge lancets for 4 checks per day(no need to provide the meter itself, this was already given to the patient),32 gauge wilmar insulin pen needles, when prescribing insulin pens, please account for 2 units of waste when priming the needle for each injection. Emergency glucagon (Gvoke or Baqsimi preferred). Glucose tabs for hypoglycemic rescue medication. She is asking for alcohol prep pads to be ordered through pharmacy as well. Maite Hua RN [facility] Diabetes Nurse Clinician Contact via secure chat or page (Micheline Hua) Insulin Pen Injection six step method for patients 1. Clean stopper with alcohol attach the needle remove 2 caps. 2. Clear the air by priming the pen with 2 units check the window (return to zero.). 3. Dial desired dose cleanse your skin with alcohol prep pad. 4. Inject, push, count to ten. 5. Check the window that it returned to zero to ensure you received all your dose. 6. Remove the pen needle with larger plastic cap and dispose safely in sharps container.( If you are using 2 different insulins make sure you are injecting at least 2 inches apart on your body. Also important to tra pens using a rubber band to avoid mixing them up. Injection location sites Abdomen Upper and outer arm Front and sides of thighs Buttocks Keep your unopened pens in the refrigerator they are good until expiration on box. After open can be left out room temperature for up to 28 days. Avoid very hot or very cold temperatures. Can try keeping your supplies in a pouch such as pencil case to keep it all together and place on your placemat while setting the table for meals. This will be your reminder to check your BG and take your insulin just prior to your meal. * Plan of Care - Nedra Armendariz RN - 08/21/2023 1129 EDT 08/21/23 1128 Home Health Referral Information Referral Status Called [place] - Patient Choice of Home Health Agency [facility], , Remind provider to place Home Health Consult order? Yes ([facility]/ PT/ OT/ SW) Nedra Armendariz RN CM [facility] Department (Available via MideoMe) * Plan of Care - Stan Leigh RN - 08/21/2023 0572 EDT Problem: Daily Care Plan Goals Goal: Care Plan Documentation Flowsheets (Taken 08/20/2023 2300) Area of Focus: Pain/ Comfort Goal This Shift: adequate pain control Note: Data: HD#69. Pt admitted with nec fas s/p multiple I&D's and skin graft. Receiving wound care treatment to donor and graft site. Dressings CDI. Pt reports pain 8-9/10. Independently walking to BRwith walker. Action: Meds given per MAR. PRN oxycodone given for pain. Vitals monitored. Hourly checked. Response: Pt slept well this shift with no complaints. Call marroquin within reach. * Plan of Care - Siri Vásquez RN - 08/20/2023 1703 EDT Problem: Daily Care Plan Goals Goal: Care Plan Documentation Flowsheets (Taken 08/20/2023 0911) Area of Focus: Mobility Goal This Shift: Pt will get OOB to chair Data: Assumed care at 0700. HD #68 for necrotizing faciitis to the right glute, graft site to rightthigh. A&O x4, regular diet, independently ambulates OOB to bathroom with FWW. ACHS FS. Reporting severe pain from right donor thigh. Action: BID dressing changes to thigh and gluteal wound completed by SINDY. Updated clinical photos in chart. Medications administered per APR, hourly rounding completed for safety. Encouraged ambulation. Response: Tolerated dressing change well. Resting comfortably in bed, call marroquin in reach. Able to make needs known. SIRI VÁSQUEZ RN 08/20/2023 17:03 * Diabetes Education - Maite Hua RN - 08/20/2023 1100 EDT Diabetes Nurse Clinician Education Note: Assessment/Education: Dexcom reciever and 1 month supply of sensors (3) filled and Holden is ready to get this started today. Provided standby support while she went through prompts on gate operator to obtain Dexcom CGM education and initiate new sensor. She had difficulty using her left hand to push the insertion button and refers to this hand as her bum hand and has baseline weakness there and has better strength and control in her right hand. I assisted her with the insertion today. She reports she will be able to do this herself in her other arm (left arm) and reports she can find support for help with insertion when she needs to switch to her right arm again. During this session we addressed the following topics:: Reviewed indication and use of a Dexcom G7 Reviewed use of gate operator and completed gate operator set-up Reviewed site preparation Reviewed sensor insertion Reviewed securing the sensor Reviewed sensor storage, expiration and sensor change after 10 days Discussed removing sensor if irritation or pain Reviewed warm up period after inserting a new sensor Reviewed alarms Discussed waterproof and limitations Discussed impact aircraft travel, Xray, CT, MRI on CGM and sensor Do not wear your CGM during MRI or diathermy (cautery) anything with high heat electrical such as surgery. During CT will need to be covered with a lead apron. If one is not available, take G7 off. Trust your body if your number doesn't match how you feel check a fingerstick before treating. WHEN IN DOUBT GET YOUR METER OUT! When you have a number and an arrow you can use to make treatment decisions. No number no arrow no treatment decision based on G7 check a fingerstick. Arrows Urgent low means will be approaching 55 in 20 minutes or less. Presets are 250 high 70 low Target range 70-180 Recommend inserting in upper back of arms. Outcomes: Dexcom G7 successful set up Dexcom G7 sensor inserted in arm Dexcom G7 sensor session initiated Dexcom G7 sensor in the 20 minute warm up period at the end of this visit Recommendations: Reminder that POCT FS need to continue when patients are using CGM devices inpatient. Supplies: Supplies needed for d/c: one touch verio test strips and one touch delica 33g gauge lancets for 4 checks per day(no need to provide the meter itself, this was already given to the patient),32 gauge wilmar insulin pen needles, when prescribing insulin pens, please account for 2 units of waste when priming the needle for each injection. Emergency glucagon (Gvoke or Baqsimi preferred). Glucose tabs for hypoglycemic rescue medication. Maite Hua RN [facility] Diabetes Nurse Clinician Contact via secure chat or page (Micheline Hua) * Plan of Care - Stan Leigh RN - 08/20/2023 8337 EDT Problem: Daily Care Plan Goals Goal: Care Plan Documentation Flowsheets (Taken 08/19/2023 1900) Area of Focus: Sleep Goal This Shift: rest Note: Data: HD#68. Pt admitted with nec fas s/p multiple I&D's and skin graft. Receiving wound care treatment to donor and graft site. Pt reports pain 8-9/10. Independently using commode and walking toBR. Action: Meds given per MAR. Dressings changed. Vitals monitored. Hourly checked. Response: Pt slept well this shift with no complaints. Call marroquin within reach. STAN LEIGH RN 08/20/2023 5:22 * Diabetes Education - Maite Hua RN - 08/19/2023 1150 EDT Diabetes Nurse Clinician Education Note: Meds to beds to deliver Dexcom sensors to patients bedsidetoday and [facility] to support Della with application tomorrow. Reminder: CGM will be for patient personal use only and while in hospital, POCT FS are still required. Maite Hua, RN [facility] Diabetes Nurse Clinician Contact via secure chat or page (Micheline Hua) * Plan of Care - Nathalie Hall RN - 08/19/2023 1047 EDT Problem: Daily Care Plan Goals Goal: Care Plan Documentation Flowsheets (Taken 08/19/2023 0700) Area of Focus: Pain/ Comfort Goal This Shift: Pt will report tolerable pain level this shift Data: HD #67 for right gluteal wound with necrosis, now s/p multiple I&D's, and graft, dressingon gluteal wound to be changed every other day, dressing on right thigh donor site with dressing BID change, AOX4, on RA, regular diet, CG OOB stand pivot to commode/chair, ACHS FS, pt states pain is7/10 at start of shift. Action: Gave meds per MAR, gave prn pain meds, encouraged ambulation to bathroom rather than commode, changed dressing to donor site and bottom, hourly safety checks completed. Response: Pt tolerated dressing change fairly well, pt ambulating with FWW to bathroom with standbyassist, pt got OOB to wheelchair for a bit during lunch time, OT came and worked with pt and encouraged not using commode during the day, pt resting comfortably in bed with no complaints at this time. NATHALIE HALL RN 08/19/2023 10:48 * Plan of Care - Stan Leigh RN - 08/19/2023 0403 EDT Problem: Daily Care Plan Goals Goal: Care Plan Documentation Flowsheets (Taken 08/18/2023 1914) Area of Focus: Pain/ Comfort Goal This Shift: adequate pain control Note: Data: HD#67. Pt reports pain 8-9/10. Dressing to buttock intact. CG assist to commode. Voiding adequately. Action: Meds given per MaR. PRN Oxycodone give. Dressing to donor site changed per order. Hourly cheeked. Response: Pt sleeping in between care. Able to make needs known. STAN LEIGH RN 08/19/2023 4:01 * Plan of Care - Nathalie Hall RN - 08/18/2023 1246 EDT Problem: Daily Care Plan Goals Goal: Care Plan Documentation Flowsheets (Taken 08/18/2023 0700) Area of Focus: Pain/ Comfort Goal This Shift: Pt will report tolerable pain level this shift Data: HD #66 for right gluteal wound with necrosis, now s/p multiple I&D's, and graft, dressingon gluteal wound to be changed every other day, dressing on right thigh donor site with dressing BID change, AOX4, on RA, regular diet, 1x assist OOB stand pivot to commode/chair, ACHS FS, pt states pain is 8/10 at start of shift. Action: Gave meds per MAR, gave PRN pain meds, encouraged off loading pressure to bottom, changed thigh dressing, hourly safety checks completed. Response: Pt tolerating meals, pt got OOB to wheelchair and wheeled around unit independently, pt resting comfortably in bed with no complaints at this time. NATHALIE HALL RN 08/18/2023 12:46 * Plan of Care - Mey Vazquez RN - 08/17/2023 2213 EDT Data: HD 65 necrotizing facsiitis. Pain 8/10 Action: Medicated with Oxycodone Dsg changed to right posterior thigh Response: Pain decreased to 7/10. MEY VAZQUEZ RN 08/17/2023 22:13 * Plan of Care - Nathalie Hall RN - 08/17/2023 1102 EDT Problem: Daily Care Plan Goals Goal: Care Plan Documentation Flowsheets (Taken 08/17/2023 0702) Area of Focus: Pain/ Comfort Goal This Shift: Pt will report adequate pain control this shift Data: HD #65 for right gluteal wound with necrosis, now s/p multiple I&D's, and graft, dressingon gluteal wound to be changed every other day, dressing on right thigh donor site with dressing BID change, AOX4, on RA, regular diet, 1x assist OOB stand pivot to commode/chair, ACHS FS, pt states pain is 8/10 at start of shift. Action: Gave meds per MAR, gave PRN pain meds, encouraged off loading pressure to bottom, hourly safety checks completed. Response: Pt tolerating meals, pt got OOB to wheelchair and wheeled around unit independently, pt restong comfortably in bed with no complaints at this time. NATHALIE HALL RN 08/17/2023 11:02 * Plan of Care - Ghassan Crawford RN - 08/17/2023 0117 EDT Data: Pt is HD#65. Pt is A&Ox3, Respirations even on RA. Pt c/o 7/10 pain to right leg. Action: Dressing change/wound care on sacrum and right leg done per orders. Medications administered per MAR. Encouraged activity as tolerated. Assisted pt OOB PRN w/ x1 assist to commode and back tobed. Care clustered to promote rest. Encouraged IS. Response: Pt tolerated ambulation fairly. Respirations even on RA. Call marroquin within reach, bed in low position. Pt. Refused Right leg dressing change during night due to pain. Problem: Daily Care Plan Goals Goal: Care Plan Documentation Outcome: Ongoing GHASSAN 08/17/2023 1:24 * Plan of Care - Elaine Turner RN - 08/16/2023 1546 EDT Data: Assumed care of patient at 0700. Patient was able to shower with OT. Patient had one episode of emesis. Also, endorses three days of intermittent feelings of vertigo when she lays down. [facility] residents made aware while on floor. Patient continues to do well managing fingersticks and insulin administration under nursing supervision. Action: Medicated per MAR. Response: Patient is currently resting comfortably in bed with call light within reach. ELAINE TURNER RN 08/16/2023 15:46 * Plan of Care - Ghassan Crawford RN - 08/16/2023 0353 EDT Data: Pt is HD#64. Pt is A&Ox3, Respirations even on RA.. Pt c/o 9/10 pain to right leg. Action: Dressing change/wound care on sacrum done per orders. Medications administered per MAR. Encouraged activity as tolerated. Assisted pt OOB PRN w/ x1 assist to commode and back to bed. Care clustered to promote rest. Encouraged IS. Response: Pt tolerated ambulation fairly. Respirations even on RA. Call marroquin within reach, bed in low position. Problem: Daily Care Plan Goals Goal: Care Plan Documentation Outcome: Ongoing GHASSAN 08/16/2023 3:56 * Plan of Care - Elaine Turner RN - 08/15/2023 1750 EDT Data: Assumed care of patient at 0700. Patient worked with PT and tolerated well. Doing well checking blood sugars and administering insulin with nursing supervision. During shift donor site started having rojas drainage, increased drainage and increased pain. [facility] team was made aware. They came to bedside and changed dressing. Action: Medicated per APR. Response: Patient resting in bed with call light within reach. ELAINE TURNER RN 08/15/2023 17:50 * Plan of Care - Costa Myrick RN - 08/15/2023 0056 EDT Problem: Daily Care Plan Goals Goal: Care Plan Documentation Outcome: Ongoing Flowsheets (Taken 08/15/2023 0056) Area of Focus: Pain/ Comfort Data: Patient with increasing RLE pain after spending extended time at wheelchair for day shift. Action: PRN analgesics given. Response: Patient verbalized relief. COSTA MYRICK RN 08/15/2023 0:56 * Plan of Care - Costa Myrick RN - 08/14/2023 0604 EDT Problem: Daily Care Plan Goals Goal: Care Plan Documentation Outcome: Ongoing Flowsheets (Taken 08/14/2023 0604) Area of Focus: GI//Elimination Goal This Shift: ROBF Data: ROBF. 4 soft formed Bms this shift. Action: R glute dressings changed x1. Response: Patient now endorsing incontinence with no sensation of BM. Wound sites clean. COSTA MYRICK RN 08/14/2023 6:04 * Plan of Care - Suresh Little RN - 08/13/2023 1423 EDT Problem: Daily Care Plan Goals Goal: Care Plan Documentation Outcome: Ongoing Flowsheets (Taken 08/13/2023 0810) Area of Focus: GI//Elimination Data: Pt HD#61. Necrotizing fasciitis to right buttock. Rectal tube removed 08/09 without ROBF. Action: Hourly rounding performed. Medications administered per APR. Ambulation encouraged. Diabetic teaching reinforced. Response: Pt resting comfortably. Denies needs at this time. SURESH LITTLE RN 08/13/2023 14:23 * Diabetes Education - Maite Hua RN - 08/13/2023 1329 EDT Diabetes Nurse Clinician Education Note: current A1C=8.2 Type of DM: T2 Assessment/Education: attempted to meet briefly with Holden today regarding Dexcom G7. Sensors are ready in pharmacy. Will arrange for delivery early next week and this [facility] will support her to get this started prior to d/c. Recommendations: Ongoing nursing education and documentation of response. Maite Hua RN [facility] Diabetes Nurse Clinician Contact via secure chat or page (Micheline Hua) * Plan of Care - Jorge A Max - 08/13/2023 1102 EDT Data: : 53 y/o female admitted 06/12 w/ nec facs, serial debridements/ washouts, POD # 13 from splitthickness skin graft on R gluteal area. NO BM since discontinue of rectal tube 08/09.Reg diet, ACHS finger sticks. Aox4, VSS, 1 assist to commode. Generalized weakness LLE PMH of stroke. Action: pt OOB to commode, wheeled themselves around unit, sat at bedside for partial independent bed bath. Graft site cleansed and redressed, IV dressing replaced, Meds given per EMAR Response: pt responded well to bed bath, dressing change, and independent wheelchair use. No BM. Jorge A Max 08/13/2023 11:02 * Plan of Care - Costa Myrick RN - 08/13/2023 0440 EDT Problem: High Fall Risk: Goal: Patient will Remain Free of Falls due to Altered Mobility Outcome: Ongoing Data: Patient with mobility deficits from recent stroke. Awaiting ROBF. Action: 1PA transfers between bedside commode and bed. Response: Patient tolerating well. No gas or BM this shift. COSTA MYRICK RN 08/13/2023 4:41 * Plan of Care - Jorge A Max - 08/12/2023 1318 EDT Data: 53 y/o female admitted 06/12 w/ nec facs, serial debridements/ washouts, POD # 12 from split thickness skin graft on R gluteal area. NO BM since discontinue of rectal tube 08/09.Reg diet, ACHS finger sticks. Aox4, VSS, independent to commode. Action: Pt OOB to wheelchair, spent time outside/ wheeled around unit independently. Response: pt tolerated ambulation and wheeling around unit well. Still waiting for BM. Jorge A Max 08/12/2023 13:18 * Plan of Care - Paolo Sanchez RN - 08/12/2023 0430 EDT Problem: Daily Care Plan Goals Goal: Care Plan Documentation Outcome: Ongoing Flowsheets (Taken 08/11/2023 1920) Area of Focus: Sleep Goal This Shift: Pt will sleep inbetween care Note: AOx3, VSS on RA. Voiding in bedside commode. No BM since rectal tube removal, passing gas, abdomen distended and firm. CG OOB to commode/WC. Rectal dressing changed overnight due to soiling. Ptsleeping inbetween care. No acute issues overnight * Plan of Care - Alyce Allison RN - 08/11/2023 1633 EDT Problem: Daily Care Plan Goals Goal: Care Plan Documentation Flowsheets (Taken 08/11/2023 0913) Area of Focus: Pain/ Comfort Goal This Shift: pain will be controlled and hygiene provided this shift Data: Pt HD #59 for necrotizing fascitis and now s/p mutiple wound debridements, POD#11 from skin graft from R thigh to buttocks. AOx3, no vuong or rectal tube, continent, voiding clear yellow urine independently in commode, no BM since rectal tube removal on 08/08. Reg diet, ACHS finger sticks, CG OOB to commode, rectal dressing changes every other day and as needed per orders. Action: Medications administered per MAR including prn colace and suppository, assisted pt with ambulation around room and to wheelchair to go outside with staff, hygiene and meals provided, blood sugar and pain controlled. Response: Pt tolerated short walk around room, able to change positions independently, endorsing minimal pain throughout shift, elevated (9/10) in evening and controlled with one dose of prn oxy, also endorsing abd distention, requesting suppository (provider notified, orders received, given), bowel sounds active, no BM, passing flatus, VSS, denies pain, will continue to monitor. ALYCE ALLISON RN 08/11/2023 16:33 * Plan of Care - Taniya Benitez RN - 08/11/2023 0700 EDT Data: Pt with extended hospitalization r/t multiple wound debridements for necrotizing fascitis andnow s/p skin graft from R thigh to buttocks. Pt is A&Ox4, vitals stable on RA. Pt continues to report moderate to severe pain in right buttock/thigh. Pt is voiding in BSC, 1PA OOB. No bowel movement overnight. Dressing to R buttock is C/D/I. Dressing intact to right thigh donor site, edy wrap adjusted over site. Action: PRN oxycodone and scheduled pain medications given for pain overnight. Pt assisted to BSC PRN, turns self well in bed. Response: Pt resting well after pain medication admin. No additional needs reported at this time, no acute changes this shift. Problem: Daily Care Plan Goals Goal: Care Plan Documentation Outcome: Ongoing Flowsheets (Taken 08/11/2023 0214) Area of Focus: Sleep Goal This Shift: Pt will be able to sleep Problem: High Fall Risk: Goal: Patient will Remain Free of Falls due to Altered Mobility Outcome: Ongoing Problem: High Fall Risk: Goal: Patient Will Remain Free from Fall-Related Injury Outcome: Ongoing Problem: Sensory: Goal: Ability to compensate for vision loss will be supported Outcome: Ongoing Problem: SKIN INTEGRITY Goal: Skin integrity will improve or be maintained Outcome: Ongoing Problem: Pressure Ulcer Prevention Goal: Absence Of Pressure Ulcer Outcome: Ongoing Problem: High Fall Risk: Goal: Patient will Remain Free of Falls due to Med. Side Effects Outcome: Ongoing Problem: High Fall Risk: Goal: Patient will Remain Free of Falls due to Altered Elimination Outcome: Ongoing Problem: Safety: Description: Module scope: For the purpose of this module, the definition for restraint comes from the Medicare and Medicaid Programs; Hospital Conditions of Participation. A restraint is any manual,physical, or mechanical device, material, or equip ... Goal: Complications related to restraint use will be avoided or minimized Outcome: Ongoing Problem: HEMODYNAMIC STATUS Goal: Patient Has Stable VS & Fluid Balance Outcome: Ongoing Problem: High Fall Risk: Goal: Patient will Remain Free of Falls due to Dizziness/Vertigo Outcome: Ongoing Problem: High Fall Risk: Goal: Patient will Remain Free of Falls due to Confusion Outcome: Ongoing Problem: OXYGENATION/REPIRATORY FUNCTION Goal: Patient will achieve/maintain baseline respiratory rate/effort Description: Respiratory rate and effort will be within normal limits for the patient Outcome: Ongoing Problem: NUTRITION Description: Patient unable to self-regulate blood glucose level Goal: Blood Glucose Control Description: Maintain plasma glucose levels within expected range. Outcome: Ongoing Problem: RISK FOR INFECTION Goal: Signs & Symptoms Of Infections Are Decreased Or Avoided Outcome: Ongoing Problem: GLYCEMIA IMBALANCE Goal: Clinical Indication Of Glycemia Balance Is Achieved Outcome: Ongoing Goal: Patient's Continuum Of Care Needs Are Met Outcome: Ongoing * Plan of Care - Alyce Allison RN - 08/10/2023 1726 EDT Problem: Daily Care Plan Goals Goal: Care Plan Documentation Flowsheets (Taken 08/10/2023 0689) Area of Focus: GI//Elimination Goal This Shift: pt will have BM Data: Pt HD #58 for necrotizing fascitis and now s/p mutiple wound debridements, POD#10 from skin graft from R thigh to buttocks. AOx3, no vuong or rectal tube, continent, voiding clear yellow urine independently in commode, no BM since rectal tube removal. Reg diet, ACHS finger sticks, CG OOB to commode, rectal dressing changes BID and as needed per orders Action: Medications administered per MAR, dressing loose and changed with xeroform, fluffed gauze, abd, medipore tape per orders. Pt assisted with ambulation around room, hygiene provided. Response: Pt tolerated short walk around room, able to change positions independently, endorsing minimal pain but some abd distention, bowel sounds active, VSS, no acute distress, will continue to monitor. ALYCE ALLISON RN 08/10/2023 17:26 * Plan of Care - Taniay Benitez RN - 08/10/2023 0700 EDT Assumed care from [id number]: Data: Pt with extended hospitalization r/t multiple wound debridements for necrotizing fascitis andnow s/p skin graft from R thigh to buttocks. Pt is A&Ox4, endorsing moderate, at times severe pain in right buttock/right thigh. Pt is now without Vuong and Rectal tube. Pt is continent, voiding in BSC clear yellow urine. No BM overnight. Action: PRN oxycodone and scheduled pain medications given for pain. Pt assisted with 1PA OOB to BSC, able to stand and pivot with minimal assistance. Turns self well in bed from supine to left side.Dressing to buttock changed per order several times overnight due to saturation with pee when on commode. Response: Pt able to rest comfortably in bed overnight, calls appropriately for assistance to bathroom. No acute changes overnight. Problem: Daily Care Plan Goals Goal: Care Plan Documentation Outcome: Ongoing Flowsheets (Taken 08/09/2023 2100) Area of Focus: Sleep Goal This Shift: Pt will be able to rest Problem: High Fall Risk: Goal: Patient will Remain Free of Falls due to Altered Mobility Outcome: Ongoing Problem: High Fall Risk: Goal: Patient Will Remain Free from Fall-Related Injury Outcome: Ongoing Problem: Sensory: Goal: Ability to compensate for vision loss will be supported Outcome: Ongoing Problem: SKIN INTEGRITY Goal: Skin integrity will improve or be maintained Outcome: Ongoing Problem: Pressure Ulcer Prevention Goal: Absence Of Pressure Ulcer Outcome: Ongoing Problem: High Fall Risk: Goal: Patient will Remain Free of Falls due to Med. Side Effects Outcome: Ongoing Problem: High Fall Risk: Goal: Patient will Remain Free of Falls due to Altered Elimination Outcome: Ongoing Problem: Safety: Description: Module scope: For the purpose of this module, the definition for restraint comes from the Medicare and Medicaid Programs; Hospital Conditions of Participation. A restraint is any manual,physical, or mechanical device, material, or equip ... Goal: Complications related to restraint use will be avoided or minimized Outcome: Ongoing Problem: HEMODYNAMIC STATUS Goal: Patient Has Stable VS & Fluid Balance Outcome: Ongoing Problem: High Fall Risk: Goal: Patient will Remain Free of Falls due to Dizziness/Vertigo Outcome: Ongoing Problem: High Fall Risk: Goal: Patient will Remain Free of Falls due to Confusion Outcome: Ongoing Problem: OXYGENATION/REPIRATORY FUNCTION Goal: Patient will achieve/maintain baseline respiratory rate/effort Description: Respiratory rate and effort will be within normal limits for the patient Outcome: Ongoing Problem: NUTRITION Description: Patient unable to self-regulate blood glucose level Goal: Blood Glucose Control Description: Maintain plasma glucose levels within expected range. Outcome: Ongoing Problem: RISK FOR INFECTION Goal: Signs & Symptoms Of Infections Are Decreased Or Avoided Outcome: Ongoing Problem: GLYCEMIA IMBALANCE Goal: Clinical Indication Of Glycemia Balance Is Achieved Outcome: Ongoing Goal: Patient's Continuum Of Care Needs Are Met Outcome: Ongoing * Plan of Care - Ayden Draper RN - 08/09/2023 9608 EDT Problem: Daily Care Plan Goals Goal: Care Plan Documentation Flowsheets (Taken 08/09/2023 0704) Area of Focus: Pain/ Comfort Goal This Shift: Adequate pain control Note: Data: Pt with extended hospitalization r/t multiple wound debridements for necrotizing fascitis andnow s/p skin graft from R thigh to buttocks. Pt reports pain is 7-8/10 in buttocks with increases after mobilizing today. Regular diet, tolerating well. Vuong and rectal tube in place for wound healing. Action: Administered all scheduled meds (see APR). PRN oxycodone for pain. Assisted pt with repositioning frequently to prevent any skin breakdown. Dressing changed this morning for some saturating s/t rectal tube leaking. Flushed tube to ensure patency. Assisted pt OOB to wheelchair for 1 hour andback to bed as tolerated. Vuong catheter DC and pt met DTV. Response: Pt is resting in bed comfortably at this time. Denies any needs currently. Reports pain is well managed with current regimen. Will continue to monitor and assess. AYDEN DRAPER RN 08/09/2023 17:26 * Plan of Care - Gini Armas RN - 08/09/2023 0154 EDT Problem: Daily Care Plan Goals Goal: Care Plan Documentation Outcome: Ongoing Flowsheets (Taken 08/09/2023 015) Area of Focus: Pain/ Comfort Goal This Shift: adequate pain control Problem: High Fall Risk: Goal: Patient will Remain Free of Falls due to Altered Mobility Outcome: Ongoing Problem: SKIN INTEGRITY Goal: Skin integrity will improve or be maintained Outcome: Ongoing Data: A&Ox4, VSS on RA. Reports pain to right leg/buttocks and back. Regular diet, FSACHS. Rectal tube in place, bowel reg continued. Vuong in place, CYU. R thigh dressing remains in place, CDI. R buttock dsg remains CDI, orders for dressing changes every other day or PRN, changed this shift d/t rectal tube leakage. Action: Medicated per APR. Q4 rectal tube flushes. Pt turning independently frequently throughout night. Response: Pain well controlled. Resting comfortably between care. Call marroquin within reach. GINI ARMAS RN 08/09/2023 1:55 * Plan of Care - Ayden Draper RN - 08/08/2023 1736 EDT Problem: Daily Care Plan Goals Goal: Care Plan Documentation Flowsheets (Taken 08/08/2023 0718) Area of Focus: Pain/ Comfort Goal This Shift: Adequate pain control Note: Data: Pt with extended hospitalization r/t multiple wound debridements for necrotizing fascitis andnow s/p skin graft from R thigh to buttocks. Pt reports pain is 7-8/10 in buttocks with increases after mobilizing today. Regular diet, tolerating well. Vuong and rectal tube in place for wound healing. Action: Administered all scheduled meds (see MAR). PRN oxycodone for pain. Assisted pt with repositioning frequently to prevent any skin breakdown. Dressing changed this morning for some saturating s/t rectal tube leaking. Flushed tube to ensure patency. Assisted pt OOB to wheelchair for 1 hour andback to bed as tolerated. Response: Pt is resting in bed comfortably at this time. Denies any needs currently. Reports pain is well managed with current regimen. Will continue to monitor and assess. AYDEN DRAPER RN 08/08/2023 17:31 * Plan of Care - Gini Armas RN - 08/08/2023 0121 EDT Problem: Daily Care Plan Goals Goal: Care Plan Documentation Outcome: Ongoing Flowsheets (Taken 08/08/2023 0121) Area of Focus: Pain/ Comfort Goal This Shift: adequate pain control Problem: High Fall Risk: Goal: Patient will Remain Free of Falls due to Altered Mobility Outcome: Ongoing Problem: SKIN INTEGRITY Goal: Skin integrity will improve or be maintained Outcome: Ongoing Data: A&Ox4, VSS on RA. Reports pain to right leg/buttocks and back. Regular diet, FSACHS. Rectal tube in place, bowel reg continued. Vunog in place, CYU. R thigh dressing remains in place, CDI. R buttock dsg remains CDI, orders for dressing changes every other day or PRN, changed this shift d/t rectal tube leakage. Action: Medicated per MAR. Q4 rectal tube flushes. Pt turning independently frequently throughout night. Response: Pain well controlled. Resting comfortably between care. Call marroquin within reach. GINI ARMAS RN 08/08/2023 1:21 * Plan of Care - Lamin Robles RN - 08/07/2023 1725 EDT Data: A&Ox4. Pt reporting 8/10 pain. Dressing with some soiling from stool this afternoon. Rectal tube and vuong draining. Action: Soiled dressing removed and replaced. Vashe ordered for dressing changes. Response: Pain managed with prns. Call marroquin within reach. Patient is ringing appropriately. LAMIN ROBLES RN 08/07/2023 17:26 * Plan of Care - David Flynn RN - 08/07/2023 0347 EDT Problem: Daily Care Plan Goals Goal: Care Plan Documentation Outcome: Met This Shift Flowsheets (Taken 08/06/2023 2300) Area of Focus: Pain/ Comfort Goal This Shift: Patient will have adequate pain relief. Data: Assumed care at 1900. Patient alert and oriented, on RA, regular diet. Hospital day #55 for nec fasc, most recent operation on 07/30 for split thickness skin graft. Rating pain 8-9/10. Vuong and rectal tube in place. Action: Meds given according to MAR (see PRNs). Patient repositioned self throughout the night. Clustered care to promote rest. Rectal tube irrigated Q4H. Dressing changed around 0100 d/t leaking from rectal tube (dressing changes are now nurse driven). Response: Patient resting in bed with call light in reach. Hourly rounding continues, able to make needs known. DAVID FLYNN RN 08/07/2023 03:49 * Plan of Care - Yandy Traylor RN - 08/06/2023 1452 EDT Problem: Daily Care Plan Goals Goal: Care Plan Documentation Flowsheets (Taken 08/06/2023 1445) Area of Focus: Mobility Goal This Shift: sit at EOB Note: Data: Assumed care 0700. Pt reporting 8/10 pain. Dressing with some soiling from stool. Rectal tubeand vuong draining. Vaginal discharge noted, pt c/o itching. Action: Stood with PT twice using sera-steady. Sat at EOB for lunch. Soiled dressing removed and replaced. Medicated for pain per apr. Response: Tolerating movement well. Pain managed with prns. YANDY TRAYLOR RN 08/06/2023 14:45 * Plan of Care - Reza Rodriguez - 08/06/2023 1325 EDT Problem: Daily Care Plan Goals Goal: Care Plan Documentation Outcome: Met This Shift Flowsheets (Taken 08/06/2023 0758) Area of Focus: Pain/ Comfort Goal This Shift: PT will have adequate pain relief Data: Assumed care of patient at 0700. PT hospitalized via necrotizing fascitis which required a skin graft on R Glute, dressing clean and intact. No precautions, Diet Regular, Allergies: Apple Juice, Aspirin, Cymbalta, Lyrica (Pregabalin), Penicillins. Action: Meds given per APR, Q4 vitals, BG taken before meals Response: PT resting in bed, call marroquin is with in reach. Able to make needs known Reza Jennifer 08/06/2023 13:25 * Plan of Care - David Flynn RN - 08/05/2023 4853 EDT Problem: Daily Care Plan Goals Goal: Care Plan Documentation Outcome: Met This Shift Flowsheets (Taken 08/05/2023 2300) Area of Focus: Pain/ Comfort Goal This Shift: Patient will have adequate pain relief. Data: Assumed care at 1900. Patient alert and oriented, on RA, regular diet. Hospital day #54 for nec fasc, most recent operation on 07/30 for split thickness skin graft. Unable to assess d/t dressing in place. Rating pain 8-9/10. Vuong and rectal tube in place. Action: Meds given according to MAR (see PRNs). Patient repositioned self throughout the night. Clustered care to promote rest. Rectal tube irrigated Q4H. Response: Patient resting in bed with call light in reach. Hourly rounding continues, able to make needs known. DAVID FLYNN RN 08/06/2023 03:53 * Plan of Care - Reza Rodriguez - 08/05/2023 1346 EDT Problem: Daily Care Plan Goals Goal: Care Plan Documentation Outcome: Met This Shift Flowsheets (Taken 08/05/2023 1141) Area of Focus: (Dressing Change) Pain/ Comfort Goal This Shift: PT will report adequate pain control during dressing change Data: Assumed care of PT at 0700. PT AOX3, PT reported pain 8.5/10. Precautions none, Diet regular,Allergies: Apple Juice, Aspirin, Cymbalta, Lyrica (Pregabalin), Penicillins. Admitted for R GlutealNecrotizing Fasciitis, recently undergone skin graft surgery on R Glute. Action: Medications given per MAR, Q4 vitals taken, Dressing change for R Glute, BG taken before meals Response: PT is sleeping in bed, call marroquin with in reach. Reza Rodriguez 08/05/2023 13:54 * Plan of Care - Tara Castanon RN - 08/05/2023 1345 EDT Problem: Daily Care Plan Goals Goal: Care Plan Documentation Outcome: Met This Shift Flowsheets (Taken 08/05/2023 1141 by Reza Rodriguez) Area of Focus: (Dressing Change) Pain/ Comfort Goal This Shift: PT will report pain during dressing change Data: Assumed care at 0700. HD #53 w/ necrotizing fasciitis, s/p skin graft on 07/31/2023. Rectal tube in place, q4 irrigation. Vuong in place and draining. Dry dressing in place over skin graft and donor site, old drainage noted. Pain 8/10. Action: Medication administered as ordered (see MAR). Rectal tube irrigated q4h. Repositioning encouraged. Provider at bedside for skin graft dressing change. Q1h safety checks completed. Response: Pt repositioned self regularly throughout shift. Reported pain improved with PRN pain medication administration. Currently resting in bed with call light in reach. TARA CASTANON RN 08/05/2023 13:45 * Plan of Care - David Flynn RN - 08/05/2023 0407 EDT Problem: Daily Care Plan Goals Goal: Care Plan Documentation Outcome: Ongoing Flowsheets (Taken 08/04/2023 2300) Area of Focus: Pain/ Comfort Goal This Shift: Patient will have adequate pain relief. Data: Assumed care at 1900. Patient alert and oriented, on RA, regular diet. Hospital day #53 for nec fasc, most recent operation on 07/30 for split thickness skin graft. Unable to assess d/t dressing in place. Rating pain 8-9/10. Vuong and rectal tube in place. Action: Meds given according to MAR (see PRNs). Patient repositioned self throughout the night. Clustered care to promote rest. Rectal tube irrigated Q4H. Response: Patient resting in bed with call light in reach. Hourly rounding continues, able to make needs known. Plan is for MD to change dressing in AM. DAVID FLYNN RN 08/05/2023 4:07 * Plan of Care - Tara Castanon RN - 08/04/2023 1110 EDT Problem: Daily Care Plan Goals Goal: Care Plan Documentation Outcome: Ongoing Flowsheets (Taken 08/04/2023 0720) Area of Focus: Pain/ Comfort Goal This Shift: Pt will report adequate pain control this shift Data: Assumed care at 0700. HD #52 w/ necrotizing fasciitis, s/p skin graft on 07/31/2023. Rectal tube in place, q4 irrigation. Vuong in place and draining. Dry dressing in place over skin graft and donor site, old drainage noted. Pain 8/10. Action: Medication administered at ordered (see MAR). Rectal tube irrigated q4h. Repositioning encouraged. Q1h safety checks completed. Response: Pt repositioned self regularly throughout shift. Reported pain improved slightly with PRNpain medication administration. Currently resting in bed with call light in reach. TARA CASTANON RN 08/04/2023 11:10 * Plan of Care - Tara Castanon RN - 08/03/2023 1128 EDT Problem: Daily Care Plan Goals Goal: Care Plan Documentation Outcome: Met This Shift Flowsheets (Taken 08/03/2023 0728) Area of Focus: Skin Integrity Goal This Shift: Q2 repositioning Data: Assumed care at 0700. HD #51 w/ necrotizing fasciitis, s/p skin graft on 07/31/2023. Rectal tube in place, q4 irrigation. Vuong in place and draining. Dry dressing in place over skin graft and donor site, old drainage noted. Pain 8/10. Action: Medication administered at ordered (see MAR). Rectal tube irrigated q4h. Repositioning encouraged. Q1h safety checks completed. Response: Pt repositioned self regularly throughout shift. Reported pain improved slightly with PRNpain medication administration. Currently resting in bed with call light in reach. TARA CASTANON RN 08/03/2023 11:28 * Plan of Care - Mini Porter RN - 08/03/2023 0701 EDT Data: Assumed care @ 1900. Necrotizing fasciitis. Rectal tube in place. Vuong cath patient and draining well. Skin graft site/donor site dressing, scant amount of strikethrough drainage. CC diet, AC/HS FSBG. Rating pain 8-10/10. Action: Administered medications per eMAR. PRN PO Oxycodone administered for pain, was effective. Clustered care to promote rest. Response: Pt in bed at this time, bed in lowest position. Safety maintained. Call marroquin in reach. MINI PORTER RN 08/03/2023 7:01 * Plan of Care - Le Gonsalez RN - 2023 1451 EDT Problem: Daily Care Plan Goals Goal: Care Plan Documentation Flowsheets (Taken 2023 0700) Area of Focus: Pain/ Comfort Goal This Shift: Adequate pain control this shift Data: 52 yo female, HD 50 for nec fasc. Skin graft 07/30 w dressing to remain in place until 08/04. ORdressing in place. Vuong draining cloudy yellow urine, rectal stool w liquid output. RA, regular diet, AAT- no sitting for >1hr on graft site per provider. Dressing saturated w urine from overnight a stool from leaking rectal tube incident. Action: Medicated per APR. PRN oxy Q3 for pain control. Rectal tube leaking this morning- no leaking since 929. Dressing is soiled- what could be changed was, provider aware. Pt no OOB this shift, not wanting to sit at EOB d/t pain. Response: VSS, pt resting on L side most of the day. Repositioned self as needed. Reports adequate pain control w oxy, but it doesn't last for more than 3-4hours. Call marroquin within reach, pt able to make needs known. LE GONSALEZ RN 2023 14:52 * Plan of Care - Mini Porter RN - 2023 0532 EDT Data: Assumed care @ 1900. Necrotizing fasciitis. Rectal tube in place. Premafit on. Skin graft site/donor site dressing C/D/I. CC diet, AC/HS FSBG. Rating pain 8-10/10. Action: Administered medications per eMAR. PRN PO Oxycodone administered for pain, was effective. Clustered care to promote rest. Skin graft site dressing noted to be saturated r/t premafit placement. MD notified/aware/assessed dressing at bedside. Vuong cath re-inserted per MD orders. Vuong cath patent and draining well. Pt tolerated placement. Response: Pt in bed at this time, bed in lowest position. Safety maintained. Call marroquin in reach. MINI PORTER RN 2023 5:59 * Plan of Care - Le Gonsalez RN - 08/01/2023 1729 EDT Problem: Daily Care Plan Goals Goal: Care Plan Documentation Flowsheets (Taken 08/01/2023 0700) Area of Focus: Pain/ Comfort Goal This Shift: Adequate pain control this shift Data: 52 yo female, HD 49 for nec fasc. Pt rating pain 4-10/10 this shift. Dressing CDI to skin graft site and donor site. Pt c carb diet, RA, not OOB, vuong draining, rectal tube in place. Action: Medicated per APR. Pt vuong clogged early afternoon w 1000cc bladder scan. Pt reported urgeto void- vuong removed dt blockage and straight cath around 1400. Pure wick in place DTV 200- notify team if pt does not meet dtv and vuong will be reinserted. During this time rectal tube also became dislodged. Rectal tube replaced by MADELINE at bedside and dressing reinforced. Response: VSS, pt resting semifowlers in bed. Pt reports controlled pain this evening and is feeling much better w empty bladder. Call marroquin within reach, pt able to make needs know. LE GONSALEZ RN 08/01/2023 17:29 * Plan of Care - Scott Andrade RN - 08/01/2023 0741 EDT Data: Patient is a 52 year old female that is HD#49. POD#1 for Split thickness skin graft to perineum . Action: Assumed care for this patient at 2300. Flexi-seal in place. Vuong catheter. ACHS blood sugar checks. Consistent carb diet. A/Ox3. Gave pain medications per the APR. Donor site on right thigh.Dressing clean, dry, and intact.Right thigh/buttocks areas wrapped. Response: Patient resting comfortably in bed with personal items and call light within reach. SCOTT ANDRADE RN 08/01/2023 7:41 Problem: Daily Care Plan Goals Goal: Care Plan Documentation 08/01/2023 0741 by Scott Andrade RN Outcome: Ongoing 08/01/2023 0559 by Scott Andrade RN Outcome: Ongoing 08/01/2023 0558 by Scott Andrade RN Outcome: Met This Shift Problem: High Fall Risk: Goal: Patient will Remain Free of Falls due to Altered Mobility 08/01/2023 07 by Scott Andrade RN Outcome: Ongoing 08/01/2023 0559 by Scott Andrade RN Outcome: Ongoing 08/01/2023 0558 by Scott Andrade RN Outcome: Met This Shift Problem: High Fall Risk: Goal: Patient Will Remain Free from Fall-Related Injury 08/01/2023 0741 by Scott Andrade RN Outcome: Ongoing 08/01/2023 0559 by Scott Andrade RN Outcome: Ongoing 08/01/2023 0558 by Scott Andrade RN Outcome: Met This Shift Problem: Sensory: Goal: Ability to compensate for vision loss will be supported 08/01/2023 0741 by Scott Andrade RN Outcome: Ongoing 08/01/2023 0559 by Scott Andrade RN Outcome: Ongoing 08/01/2023 0558 by Scott Andrade RN Outcome: Met This Shift Problem: SKIN INTEGRITY Goal: Skin integrity will improve or be maintained 08/01/2023 0741 by Scott Andrade RN Outcome: Ongoing 08/01/2023 0559 by Scott Andrade RN Outcome: Ongoing 08/01/2023 0558 by Scott Andrade RN Outcome: Met This Shift Problem: Pressure Ulcer Prevention Goal: Absence Of Pressure Ulcer 08/01/2023 0741 by Scott Andrade RN Outcome: Ongoing 08/01/2023 0559 by Scott Andrade RN Outcome: Ongoing 08/01/2023 0558 by Scott Andrade RN Outcome: Met This Shift Problem: High Fall Risk: Goal: Patient will Remain Free of Falls due to Med. Side Effects 08/01/2023740 by Scott Andrade RN Outcome: Ongoing 08/01/2023 0559 by Scott Andrade RN Outcome: Ongoing 08/01/2023 05 by Scott Andrade RN Outcome: Met This Shift Problem: High Fall Risk: Goal: Patient will Remain Free of Falls due to Altered Elimination 08/01/2023740 by Scott Andrade RN Outcome: Ongoing 08/01/202359 by Scott Andrade RN Outcome: Ongoing 08/01/2023557 by Scott Andrade RN Outcome: Met This Shift Problem: Safety: Description: Module scope: For the purpose of this module, the definition for restraint comes from the Medicare and Medicaid Programs; Hospital Conditions of Participation. A restraint is any manual,physical, or mechanical device, material, or equip ... Goal: Complications related to restraint use will be avoided or minimized 08/01/2023740 by Scott Andrade RN Outcome: Ongoing 08/01/202359 by Scott Andrade RN Outcome: Ongoing 08/01/2023557 by Scott Andrade RN Outcome: Met This Shift Problem: HEMODYNAMIC STATUS Goal: Patient Has Stable VS & Fluid Balance 08/01/2023740 by Scott Andrade RN Outcome: Ongoing 08/01/2023 0559 by Scott Andrade RN Outcome: Ongoing 08/01/2023 05 by Scott Andrade RN Outcome: Met This Shift Problem: High Fall Risk: Goal: Patient will Remain Free of Falls due to Dizziness/Vertigo 08/01/2023740 by Scott Andrade RN Outcome: Ongoing 08/01/202359 by Scott Andrade RN Outcome: Ongoing 08/01/2023557 by Scott Andrade RN Outcome: Met This Shift Problem: High Fall Risk: Goal: Patient will Remain Free of Falls due to Confusion 08/01/2023740 by Scott Andrade RN Outcome: Ongoing 08/01/2023 0559 by Scott Andrade RN Outcome: Ongoing 08/01/2023 0558 by Scott Andrade RN Outcome: Met This Shift Problem: OXYGENATION/REPIRATORY FUNCTION Goal: Patient will achieve/maintain baseline respiratory rate/effort Description: Respiratory rate and effort will be within normal limits for the patient 08/01/2023 0741 by Scott Andrade RN Outcome: Ongoing 08/01/2023 0559 by Scott Andrade RN Outcome: Ongoing 08/01/2023 0558 by Scott Andrade RN Outcome: Met This Shift Problem: NUTRITION Description: Patient unable to self-regulate blood glucose level Goal: Blood Glucose Control Description: Maintain plasma glucose levels within expected range. 08/01/2023 07 by Scott Andrade RN Outcome: Ongoing 08/01/2023 0559 by Scott Andrade RN Outcome: Ongoing 08/01/2023 0558 by Scott Andrade RN Outcome: Met This Shift Problem: RISK FOR INFECTION Goal: Signs & Symptoms Of Infections Are Decreased Or Avoided 08/01/2023 0741 by Scott Andrade RN Outcome: Ongoing 08/01/2023 0559 by Scott Andrade RN Outcome: Ongoing 08/01/2023 0558 by Scott Andrade RN Outcome: Met This Shift Problem: GLYCEMIA IMBALANCE Goal: Clinical Indication Of Glycemia Balance Is Achieved 08/01/2023 0741 by Scott Andrade RN Outcome: Ongoing 08/01/2023 0559 by Scott Andrade RN Outcome: Ongoing 08/01/2023 0558 by Scott Andrade RN Outcome: Met This Shift Goal: Patient's Continuum Of Care Needs Are Met 08/01/2023 0741 by Scott Andrade RN Outcome: Ongoing 08/01/2023 0559 by Scott Andrade RN Outcome: Ongoing 08/01/2023 0558 by Scott Andrade RN Outcome: Met This Shift * Plan of Care - Elaine Turner RN - 07/31/2023 1753 EDT Data: Assumed care of patient at 0700. NPO in anticipation of skin graft surgery. IVF administered.Q6 finger sticks performed with coverage provided as appropriate. Action: Medicated per APR. Response: Pt left floor for surgery at approximately 1400. Currently in PACU. ELAINE TURNER RN 07/31/2023 17:55 * Brief Op Note - Isabell Nolasco MD - 07/31/2023 1605 EDT Date: 07/31/2023 Location: [facility] OR Name: Della Browning, : 1970, Diagnosis Pre-Op Diagnosis Codes: * Necrotizing soft tissue infection [M79.89] Post-op Diagnosis * Necrotizing soft tissue infection [M79.89] Procedures * Split thickness skin graft to perineum Surgeons * Moo Monique MD - Primary * Isabell Nolasco MD - Resident - Assisting Procedure Summary Anesthesia: General ASA: III Estimated Blood Loss: 75 mL Total IV Fluids: 800 mL LDAs: Peripheral IV 07/29/23 1504 Anterior;Right Forearm (Active) Peripheral IV 07/31/23 1542 Left Wrist (Active) Rectal Tube With balloon (Active) Urethral Catheter 14 fr (Active) Wound 06/14/23 Buttock;Rectum (Active) Wound 07/31/23 Pressure Injury Right;Medial Buttock Full thickness (Active) Wound 07/31/23 Donor Site Posterior;Right Leg Full thickness (Active) [REMOVED] CVC Single Lumen 06/16/23 (Removed) [REMOVED] CVC Triple Lumen 06/15/23 Do Not Power Inject (Removed) [REMOVED] Peripheral IV 06/13/23 Anterior;Left;Proximal Antecubital (Removed) [REMOVED] Peripheral IV 06/13/23 Right Antecubital (Removed) [REMOVED] Peripheral IV 06/14/23 0157 Anterior;Left Upper Arm (Removed) [REMOVED] Peripheral IV 06/14/23 1441 Anterior;Right Forearm (Removed) [REMOVED] Peripheral IV 06/17/23 0825 Anterior;Left Forearm (Removed) [REMOVED] Peripheral IV 06/24/23 0416 Anterior;Right Forearm (Removed) [REMOVED] Peripheral IV 06/25/23 2336 Anterior;Left;Distal Forearm (Removed) [REMOVED] Peripheral IV 06/25/23 2336 Anterior;Left;Proximal Forearm (Removed) [REMOVED] Peripheral IV 06/29/23 0040 Posterior;Right Forearm (Removed) [REMOVED] Peripheral IV 06/29/23 0525 Anterior;Right Forearm (Removed) [REMOVED] Peripheral IV 07/03/23 1553 Anterior;Left;Proximal Upper Arm (Removed) [REMOVED] Peripheral IV 07/04/23 0501 Right;Anterior;Medial;Distal Upper Arm (Removed) [REMOVED] Closed/Suction Drain Right;Posterior Buttock (Removed) [REMOVED] Wound Vac Right buttock (Removed) [REMOVED] Wound Vac Right;Medial buttock (Removed) [REMOVED] Wound Vac Right buttock (Removed) [REMOVED] Rectal Tube With balloon (Removed) [REMOVED] Urethral Catheter (Removed) [REMOVED] Non-Surgical Airway (Removed) [REMOVED] Non-Surgical Airway ETT - cuffed 7.5 (Removed) [REMOVED] Non-Surgical Airway (Removed) [REMOVED] Non-Surgical Airway (Removed) [REMOVED] Non-Surgical Airway ETT - cuffed 8 (Removed) [REMOVED] Non-Surgical Airway (Removed) [REMOVED] Non-Surgical Airway (Removed) [REMOVED] Arterial Catheter 06/15/23 Radial Anterior;Left (Removed) [REMOVED] Wound 06/19/23 Left Elbow (Removed) [REMOVED] NG/OG Tube Orogastric Center mouth (Removed) [REMOVED] NG/OG Tube Nasogastric 16 fr Left nostril (Removed) [REMOVED] NG/OG Tube Orogastric 14 fr Center mouth (Removed) [REMOVED] NG/OG Tube Nasoduodenal 12 fr Left nostril (Removed) [REMOVED] NG/OG Tube Nasogastric 14 fr Left nostril (Removed) Implants Type Name Action Serial No. SEALANT 4ML ARTISS FORZEN DILUTED TISSEEL - [id number] Implanted [id number] Staff: Retail Pharmacist: Ellyn Echevarria RN Relief Retail Pharmacist: Odalys Morrison RN Relief Scrub: Jasmyne Hilario RN; Elaine Mcintyre Scrub Person: Paolo Penn Patient Wholesale Representative: Alicia Guajardo Indications: Della Browning is an 52 y.o. female who is having surgery for NSTI to right buttock. Findings: Nylon adjacent to wound removed, Versajet to right buttock wound bed, two split thicknessskin grafts from donor site of lateral posterior right thigh, skin grafts meshed 1 to 1 and placed over right buttock wound with Artiss, excess graft replaced onto donor site Complications: None; patient tolerated the procedure well. Disposition: PACU - hemodynamically stable. Condition: stable Specimens Collected: No specimens collected during this procedure. Plan: - dressing to stay in place until Saturday, 08/04 Isabell Nolasco MD General Surgery 07/31/23 * Plan of Care - Melly Kumar RN - 07/31/2023 0522 EDT Problem: Daily Care Plan Goals Goal: Care Plan Documentation Flowsheets Taken 07/30/2023 2300 Goal This Shift: promote rest Taken 07/30/2023 2137 Area of Focus: Pain/ Comfort Problem: High Fall Risk: Goal: Patient will Remain Free of Falls due to Altered Mobility Outcome: Met This Shift Problem: Safety: Description: Module scope: For the purpose of this module, the definition for restraint comes from the Medicare and Medicaid Programs; Hospital Conditions of Participation. A restraint is any manual,physical, or mechanical device, material, or equip ... Goal: Complications related to restraint use will be avoided or minimized Outcome: Met This Shift No acute events overnight. WV in place to suction at 125 psi, see flowsheet for total output. Rectal tube and vuong in place. NPO after midnight for possible surgery today. * Plan of Care - Elaine Turner RN - 07/30/2023 1835 EDT Data: Assumed care of patient at 0700. Rectal tube, Vuong and wound vac in place. Patient's skin graft surgery was rescheduled. Patient to be NPO at midnight tonight in anticipation of surgery tomorrow. Blood glucose monitored and coverage provided as appropriate. Action: Medicated per APR. Response: Patient is resting comfortably in bed. Call light within reach. ELAINE TURNER RN 07/30/2023 18:36 * Plan of Care - Jorge A Max - 07/30/2023 1339 EDT Data: 52 y/0 female admitted w/ necrotizing fasciitis. Vuong/ rectal tube in place, WV on R glutealarea set 125 mmhg. NPO overnight due to grafting procedure, but procedure postponed. Finger sticks prior to meals and bedtime. Pain 8-10 Action: tracked I/O, managed catheter, rectal tube, WV, pt sat at bedside for lunch Response: pts pain remain 8-10, did not respond well to sitting, remains in bed Jorge A Max 07/30/2023 13:39 * Plan of Care - Elaine Turner RN - 07/29/2023 1827 EDT Data: Assumed care of patient at 0700. Rectal tube, Vuong and wound vac in place. Pt had an episodeof stool which didn't go through rectal tube. When pt was cleaned up it was noted that there was some stool under the wound vac dressing. ACS was made aware. Wound vac changed. Blood glucose monitored and coverage provided as appropriate. I's and O's monitored and recorded. Pt will be NPO at midnight in anticipation of skin graft surgery tomorrow. Action: Medicated per APR. Response: Pt is resting comfortably in bed with call light within reach. ELAINE TURNER RN 07/29/2023 18:27 * Plan of Care - Cami Contreras RN - 07/28/2023 1135 EDT Nursing Pain Note D: At 0710 patient c/o 7/10. Pain located in the Buttocks.. A: Patient receiving scheduled and PRN medications. See MAR. Provided the following non-pharmacologic interventions: repositioning and rest. R: Patient now reports that pain is tolerable but she can feel like she can tell when the pain medsare wearing off. Will continue to monitor and adjust interventions as necessary. CAMI CONTRERAS RN 07/28/2023 11:36 * Plan of Care - Opal Rehman RN - 07/27/2023 1812 EDT Data: Reports seven to eight out of ten pain. Rectal tube in place with minimal leaking. Vuong patent, draining cloudy yellow. Vuong care per protocol. Wound vac draining moderate amount serosanguinous. Action: Pain regimen followed. Patient requesting PRN Oxycodone every four hours as ordered. Response: Patient reports pain better controlled with modified pain regimen. OPAL REHMAN RN 07/27/2023 18:12 * Plan of Care - Opal Rehman RN - 07/26/2023 1534 EDT Data: Patient alert, oriented x 4. Vuong patent, draining clear, yellow. Rectal tube in place, draining moderate amount loose brown. Wound vac in place at 125psi. No leak noted to dressing. Draining moderate amount serosanguinous. Action: Medicated, as ordered, for reported nine out of ten buttocks, head, chest, and leg pain. Response: Good bed mobility. Good PO intake. Compliant with care. OPAL REHMAN RN 07/26/2023 15:34 * Plan of Care - Paolo Sanchez RN - 07/25/2023 0343 EDT Pt AX3. VSS on RA. PRN oxy/tylenol for pain control. Vuong, rectal tube, wound vac, all draining appropriately. Pt sleeping in between care. No acute issues overnight Problem: Daily Care Plan Goals Goal: Care Plan Documentation Outcome: Ongoing Flowsheets (Taken 07/24/2023 1915) Area of Focus: Pain/ Comfort Goal This Shift: Pt will have adequate pain control * Plan of Care - Jairo High RN - 07/24/2023 1754 EDT Problem: Daily Care Plan Goals Goal: Care Plan Documentation Flowsheets (Taken 07/24/2023 1753) Area of Focus: Other Goal This Shift: maintain seal to wound vac Data: Pt HD#41 for necrotizing fasciitis s/p debridement. WV in place to right gluteal area, suction set to -125mmHg. Rectal tube and vuong in place and draining. Action: Provider notified of leaking at WV site and change in color of output. WV patched and provider at bedside to access. Response: Seal maintained, plan to change WV tomorrow. JAIRO HIGH RN 07/24/2023 17:54 * Plan of Care - Mini Porter RN - 07/24/2023 0617 EDT Data: Assumed care @ 1900. CC diet, AC/HS FSBG. Vuong cath, patent and draining well. Rectal tube. Buttock Drain to WV, dressing intact. Pt repositions independently in bed. Rating pain 8-10/10. Action: Administered medications per eMAR. PRN PO Oxycodone & Tyl administered for pain, was effective. Clustered care to promote rest. Response: Pt in bed at this time, bed in lowest position. Safety maintained. Call marroquin in reach. MINI PORTER RN 07/24/2023 6:17 * Plan of Care - Paolo Sanchez RN - 07/23/2023 0359 EDT Pt AX3. VSS on RA. Pain managed per APR. WV to suction. Vuong in place. Rectal tube in place. Sleeping inbetween care, no acute issues overnight Problem: Daily Care Plan Goals Goal: Care Plan Documentation 07/23/2023 035 by Paolo Sanchez RN Outcome: Ongoing Flowsheets (Taken 07/22/2023 1922) Area of Focus: Pain/ Comfort Goal This Shift: Pt will report adequate pain control 07/23/2023 035 by Paolo Sanchez RN Outcome: Ongoing * Plan of Care - Tara Castanon RN - 07/22/2023 1106 EDT Problem: Daily Care Plan Goals Goal: Care Plan Documentation 07/22/2023 1105 by Tara Castanon RN Outcome: Ongoing Flowsheets (Taken 07/22/2023 0725) Area of Focus: Pain/ Comfort Goal This Shift: Adequate pain control this shift Data: Assumed care at 0700. Pt A&Ox3. HD #39 for necrotizing fasciitis of the right buttock. Wound vac to right buttock intact, serosanguinous output. Vuong in place and draining. Rectal tube in place and draining. Pt reports 10/10 pain. Pt reports anxiety and is teary eyed in the morning. Pt report new onset chest pain in the afternoon. Action: Medication administered as ordered (see MAR). PRN ativan administered. Wound vac dressing reinforced. Provider notified of chest pain. Q1h safety checks completed. Response: Pt reports pain level tolerable throughout shift, with administration of PRN medication. Reports ongoing anxiety, not relieved PRN medication. Pt currently resting in bed with call light inreach. TARA CASTANON RN 07/22/2023 10:46 * Diabetes Education - Maite Hua RN - 07/22/2023 1020 EDT Diabetes Nurse Clinician Education Note: current A1C=8.2 Type of DM: T2 SMBG: does not check Medications: no medications DM Provider: PCP DM Hx: ~10-15 years Assessment/Education: Della remains hospitalized and appropriate for acute care given wound careneeds. Diabetes education supplies provided on 07/14 education visit and at this time, she was not mentally able to participate or absorb education. D/C destination plan is [facility] once medically ready. Diabetes nurse clinician will see patient as able closer to discharge and will be critical for [facility] nursing staff to reinforce education as receiving this information closer to discharge home will be most successful. Recommendations: Nursing please provide insulin and diabetes survival skills education as she is able to receive this. Written education materials at bedside as well a one touch verio flex glucometer. Supplies needed for discharge: one touch verio test strips and one touch delica lancets. She has the glucometer itself and just needs the supplies. Maite Hua RN [facility] Diabetes Nurse Clinician Contact via secure chat or page (Micheline Hua) * Plan of Care - Tara Castanon RN - 07/21/2023 1156 EDT Problem: Daily Care Plan Goals Goal: Care Plan Documentation Outcome: Ongoing Flowsheets (Taken 07/21/2023 0739) Area of Focus: Pain/ Comfort Goal This Shift: Pt reports adequate pain control this shift Data: Assumed care at 0700. Pt A&Ox3. HD #38 for necrotizing fasciitis of the right buttock. Wound vac to right buttock intact, serosanguinous output. Vuong in place and draining. Rectal tube in place and draining. Pt reports 8/10 pain. Action: Medication administered as ordered (see MAR). Repositioning encouraged. Rectal tube irrigated. Wound vac dressing reinforced. Q1h safety checks completed. Response: Pt reports pain level tolerable throughout shift, with administration of PRN medication. Pain 7/10 at end of shift. Pt currently resting in bed with call light in reach. TARA CASTANON RN 07/21/2023 11:57 * Plan of Care - Tara Castanon RN - 07/20/2023 1032 EDT Problem: Daily Care Plan Goals Goal: Care Plan Documentation Outcome: Met This Shift Flowsheets (Taken 07/20/2023 0710) Area of Focus: Skin Integrity Goal This Shift: Q2 turns Data: Assumed care at 0700. Pt A&Ox3. HD #37 for necrotizing fasciatus of the right buttock. Wound vac to right buttock intact, serosanguinous output. Vuong in place and draining. Rectal tube in place and draining. Pt reports 9/10 pain,. Action: Medication administered as ordered (see MAR). Repositioning encouraged. Wound vac dressing reinforced. Q1h safety checks completed. Response: Pt repositioned q2 hours. Pt reports pain level mildly improved with prn medication. Pain8/10 at end of shift. Pt currently resting in bed with call light in reach. TARA CASTANON RN 07/20/2023 10:32 * Plan of Care - Siri Vásquez RN - 07/19/2023 1802 EDT Problem: Daily Care Plan Goals Goal: Care Plan Documentation Flowsheets (Taken 07/19/2023 0702) Area of Focus: Pain/ Comfort Goal This Shift: Pt will report tolerable pain level throughout shift Data: Assumed care at 0700. HOD #36 for necrotizing fasciitis to buttock. Pt A&Ox4, RA, consistent carb diet, ACHS FS. Rectal tube in place, vuong draining adequate urine. Reporting severe pain. Wound vac to buttock to promote healing, no leaking noted. Action: Medications administered per MAR, hourly rounding completed for safety. Catheter care completed. PT at bedside to work with pt. Gareth hernandez to LLE for foot drop per PT. Response: Pt resting comfortably in bed. VSS, call marroquin within reach. Able to make needs known. SIRI VÁSQUEZ RN 07/19/2023 18:02 * Plan of Care - Siri Vásquez RN - 07/18/2023 1810 EDT Problem: Daily Care Plan Goals Goal: Care Plan Documentation Flowsheets (Taken 07/18/2023 0714) Area of Focus: Pain/ Comfort Goal This Shift: Pt will report tolerable pain level Data: Assumed care at 0700. HOD #35 for necrotizing fasciitis to buttock. Pt A&Ox4, RA, regulardiet, ACHS FS. Rectal tube in place, vuong draining adequate urine. Reporting severe pain. Wound vac to buttock to promote healing. Action: Medications administered per MAR, hourly rounding completed for safety. Wound vac leaking, MADELINE at bedside to reinforce dressing. Bed bath and catheter care completed for hygiene. Response: Pt resting comfortably in bed. VSS, call marroquin within reach. Able to make needs known. SIRI VÁSQUEZ RN 07/18/2023 18:10 * Plan of Care - David Flynn RN - 07/17/2023 0655 EDT Problem: Daily Care Plan Goals Goal: Care Plan Documentation Outcome: Met This Shift Flowsheets (Taken 07/17/2023 0000) Area of Focus: Pain/ Comfort Goal This Shift: Patient will have adequate pain relief. Data: Assumed care at 1900. Patient alert and oriented, on RA. Hospital day #34 for necrotizing fascitis. Rectal tube and vuong in place. NGT to buttock to drain wound. Action: Meds given according to MAR. Dressing did not have a good seal d/t tegaderm peeling off butreinforced with MD at bedside. Very little drainage (most likely d/t poor seal). PRN ativan given at 2300 and again at 0630. Response: Patient resting in bed with call light in reach. Able to make needs known. Plan is for dressing change today by . DAVID FLYNN RN 07/17/2023 6:56 * Plan of Care - Paz Barth RN - 07/15/2023 1112 EDT Problem: Daily Care Plan Goals Goal: Care Plan Documentation Outcome: Ongoing Flowsheets (Taken 07/15/2023 0916) Area of Focus: Pain/ Comfort Goal This Shift: pt will have adequate pain control Data: Assumed care of pt at 0700. Pt A&Ox4, on RA with intermittent 1 L NC, rectal tube in place-, vuong draining, ACHS FS, regular diet. Action: Medicated per MAR. PRN ativan given for anxiety per pt request. Removed vuong and placed new 14 fr vuong. Assisted pt with maintaining rectal tube and WV area clean. WV with small leak, team aware. Pt met with outsole molder this morning. Response: Pt resting comfortably in bed. VSS, call marroquin within reach. Rectal tube clean at this time. WV continues to have small leak. PAZ BARTH RN 07/15/2023 11:12 * Plan of Care - Tao Estrada RN - 07/15/2023 0137 EDT Data: Assumed care at 1900. A&Ox3, RA, Vuong and rectal tube in place, wound vac to high end range of LCWS. Action: Medicated per APR, hourly rounding, monitored wound vac and rectal rube patency, provided emotional support. Response: Pt currently resting in bed with call bed in reach. TAO ESTRADA RN 07/15/2023 1:37 * Plan of Care - Ashely Mejia RN - 07/14/2023 1851 EDT Problem: Daily Care Plan Goals Goal: Care Plan Documentation Outcome: Met This Shift Flowsheets (Taken 07/13/2023 1923 by Paolo Sanchez, KIESHA) Area of Focus: Pain/ Comfort Goal This Shift: Pt will report adequate pain control Note: Data: A&Ox4, anxious at times. Complains of ear fullness, ENT to see patient this week. Rectal tube in place. Vuong in place. Wound vac to wall suction. Rectal and right buttock pain. Patient repositioning self in bed. Action: PRN pain and anxiety meds. Frequent rectal tube checks to ensure clean site to avoid contamination of wound, milked tube as needed. Vuong care completed. Response: patient pain better controlled. Anxiety well controlled. Tolerating bed mobility, changesposition frequently and turns self for tube checks. ASHELY MEJIA RN 07/14/2023 18:47 * Plan of Care - Paolo Sanchez RN - 07/14/2023 0454 EDT Pt ax3. Complaints of pain managed per APR. VSS on 1L NC. Vuong in place with good output. Rectal tube in place with good output. Tunneled NGT to wound to LWS. Turning while awake. Slept throughout the night with no acute issues. * Plan of Care - Paz Barth RN - 07/13/2023 1758 EDT Problem: Daily Care Plan Goals Goal: Care Plan Documentation Outcome: Ongoing Flowsheets (Taken 07/12/2023 191 by Paolo Sanchez RN) Area of Focus: Pain/ Comfort Goal This Shift: Pt will report adequate pain control Data: Assumed care of pt at 0700. Pt on 1 L NC, rectal tube in place, vuong in place, wound vac to LCWS, regular diet, ACHS FS, Q2 turns. Action: Medicated per APR. Assisted and encouraged pt Q2 turns. Pt requested prn nebulizer treatments. PRN ativan given this morning for mild anxiety. Rectal tube leaked multiple times during shift, assisted getting pt cleaned up. Applied an extra piece of Tegaderm to WV area to get a better seal. Response: Pt resting in bed, VSS, call marroquin within reach. WV continues to have a good seal. PAZ BARTH RN 07/13/2023 17:58 * Plan of Care - Paolo Sanchez RN - 07/13/2023 0209 EDT Pt ax3. Complaints of pain managed per APR. VSS on 1L NC.PRN nebs for wheezing. Vuong in place withgood output. Rectal tube in place with good output. Tunneled NGT wound vac dressing intact. Tolerating diet. Turning while awake. Slept throughout the night with no acute issues. * Plan of Care - Lamin Robles RN - 07/12/2023 1401 EDT Data: A&Ox4. Wound drain hooked up to LCWS, with very minimal output. Rectal tube. Vuong. Action: Stool was a little thick this morning but emptied from rectal tube after flushing. Continuing with PO flagyl. Patient has been having trouble with her hearing aids today. Asked Leesa BURNS to assess them and possibly consult ENT. Patient reporting muscular chest pain, applied lidocaine patchand she stated it helped. Response: Pain controlled with PO dilaudid. Patient rings appropriately. Call marroquin within reach. [id number]. LAMIN ROBLES RN 07/12/2023 14:01 * Plan of Care - Lamin Robles RN - 07/11/2023 1740 EDT Data: A&Ox4. Wound drain hooked up to LCWS, with very minimal output. Rectal tube. Vuong. Action: Stool was a little thick this morning but emptied from rectal tube after flushing. Continuing with PO flagyl. Patient attempted to get up today with PT. She was able to sit at the edge of thebed. This afternoon she was lifted out of bed for the bed scale to be reset. Accurate weight documented now. Patient has been having trouble with her hearing aids today. Gave her new batteries but she wants to send them out to get fixed. Response: Pain controlled with PO dilaudid. Patient rings appropriately. Call marroquin within reach. [id number]. LAMIN ROBLES RN 07/11/2023 17:41 * Plan of Care - Chrissie Mcqueen RN - 07/10/2023 1819 EDT Data: Assumed care of patient at 0700. Patient lying in bed with eyes closed. A/Ox3, 0.5L O2 via nasal cannula. Approx. 15 minutes into this shift wound vac started alarming suction was lost. Unable to restore suction, team notified. Action: Assessment completed, medications administered per APR. Patient assisted with repositioning, hourly rounding completed. Patient left the unit for several hours during this shift for wound clean out and re-dressing. Returned to the unit without wound vac, zeroform dressing with NGT set to low continuous wall suction instead. Regular diet resumed, encouraged to ring with needs. Response: Patient lying in bed watching television. Reports pain 8/10, but more comfortable than this morning. Call marroquin within reach, able to make needs known. CHRISSIE MCQUEEN RN 07/10/2023 15:50 Problem: Daily Care Plan Goals Goal: Care Plan Documentation Outcome: Ongoing Flowsheets (Taken 07/10/2023 0700) Area of Focus: Pain/ Comfort Goal This Shift: Patient will have pain at a tolerable level today * Brief Op Note - Zahira Veras MD - 07/10/2023 1201 EDT Date: 07/10/2023 Location: [facility] OR Name: Della Browning, : 1970, Diagnosis Pre-Op Diagnosis Codes: * Necrotizing soft tissue infection [M79.89] Post-op Diagnosis * Necrotizing soft tissue infection [M79.89] Procedures * WOUND VAC I&D PERINEUM Surgeons * Efraín Rueda MD - Primary * Zahira Veras MD - Resident - Assisting Procedure Summary Anesthesia: General ASA: III Estimated Blood Loss: No Blood Loss Documented Total IV Fluids: see anesthesia log LDAs: Peripheral IV 07/04/23 0501 Right;Anterior;Medial;Distal Upper Arm (Active) Rectal Tube With balloon (Active) Urethral Catheter (Active) Wound 06/14/23 Buttock;Rectum (Active) Wound 07/10/23 Pressure Injury Right;Medial Buttock (Active) [REMOVED] Non-Surgical Airway (Removed) Staff: Retail Pharmacist: Liat Denise RN Scrub Person: Ryan Hampton Patient Wholesale Representative: Adrian Dumont Indications: Della Browning is an 52 y.o. female who is having surgery for * No pre-op diagnosis entered * Findings: Removed 3 silk sutures near previous rectal repair, area was gently probed and no obviousdefect was identified, sacral area of wound debridement, hemostasis with electrocautery, wound gently irrigated with saline, xeroform applied over wound base, wound vac replaced with tunneled NGT tube hooked up to wall suction Plan: Wound vac to wall suction Complications: None; patient tolerated the procedure well. Disposition: PACU - hemodynamically stable. Condition: stable Specimens Collected: No specimens collected during this procedure. ZAHIRA VERAS MD 07/10/2023 16:58 * Plan of Care - Chrissie Mcqueen RN - 07/09/2023 1036 EDT Data: Assumed care of patient at 0700. Patient lying in bed with eyes closed. Patient reports pain 9/10 and no nausea. A/Ox3, 1L O2 via nasal cannula, wound vac, vuong and rectal tube in place. Action: Assessment completed, medications administered per MAR including PRN pain medications. Patient rang call marroquin twice this shift with leaking rectal tube - ching care/vuong care/full linen change completed. Patient assisted with q2 repositioning, hourly rounding completed. Wound vac alarming at approx. 1600, team notified and came to the bedside. Encouraged to ring with needs. Response: Patient lying in bed watching television. Continues to report pain of 9/10. Skin integrity maintained. Call marroquin within reach, able to make needs known. CHRISSIE MCQUEEN RN 07/09/2023 10:36 Problem: Daily Care Plan Goals Goal: Care Plan Documentation Outcome: Ongoing Flowsheets (Taken 07/09/2023 0700) Area of Focus: Skin Integrity Goal This Shift: Q2 checks/turns will be completed to maintain skin integrity * Plan of Care - Chrissie Mcqueen RN - 07/08/2023 1241 EDT Data: Assumed care of patient at 0700. Patient lying in bed with eyes closed. Patient reports 9/10 pain, no nausea. A/Ox3, 4L O2 via nasal cannula, rectal tube and vuong in place. Consistent carb diet with 2L fluid restriction. Action: Assessment completed, medication administered per MAR. Complete ching/vuong care/linen change completed twice this shift due to leakage around rectal tube. O2 reduced to 2L, satting in the mid-90s. Hourly rounding and q2 repositioning completed as ordered. Encouraged to ring with needs. Response: Patient lying in bed watching television. Skin integrity maintained. Reports pain of 6/10, no nausea. Call marroquin within reach, able to make needs known. CHRISSIE MCQUEEN RN 07/08/2023 12:41 Problem: Daily Care Plan Goals Goal: Care Plan Documentation Outcome: Ongoing Flowsheets (Taken 07/08/2023 0857) Area of Focus: Skin Integrity Goal This Shift: Q2 turns will be completed to maintain skin integrity * Plan of Care - Salazar Quarles RN - 07/07/2023 1252 EDT Data: 52 year old alert and oriented x3 female hospital stay day # 24 from necrotizing fasciitis tobuttock and s/p debridement. Wound vac draining milky, rojas drainage, vuong draining appropriately, rectal tube in place, NC4L, PIV right forearm and upper arm, CCD diet, bed rest. Action: Administered scheduled medications per MAR, Q2hr repositioning, managed vuong, wound vac and rectal tube, encouraged IS, pt independently uses acepella, Pt eats 100% of meals, spontaneously coughing up yellow sputum, reports chronic pain 8/10 all the time Response: Tolerates IS reaching 500 x2, reports chronic pain 8/10 all the time, able to let needs be known SALAZAR QUARLES RN 07/07/2023 12:52 * Plan of Care - Salazar Quarles RN - 07/06/2023 1319 EDT Data: 52 year old alert and oriented x3 female hospital stay day # 23 from necrotizing fasciitis tobuttock and s/p debridement. Wound vac draining milky, rojas drainage, vuong draining appropriately, rectal tube in place, NC4L, PIV right forearm and upper arm, CCD diet, bed rest. Action: Administered scheduled medications/PRN per MAR, maintained IV patency, Q2hr repositioning, maintain O2 at 4L, encouraging IS, Independently using acapella. Hourly rounding for safety, bed in lowest position. Response: Reports having chronic pain that is always around 7-9, coughing up thick yellow/green sputum, call light with in reach able to let needs be known SALAZAR QUARLES RN 07/06/2023 13:19 * Plan of Care - Antonia Rodriguez RN - 07/05/2023 0716 EDT Images from the original note were not included. Problem: Daily Care Plan Goals Goal: Care Plan Documentation Flowsheets (Taken 07/05/2023 0700) Area of Focus: Respiratory Goal This Shift: maintain stable resp status Data: Admitted to hospital 06/12 for nec fac, s/p multiple debridements and vac placement, c/b bradyarrest x2. Transfer back to [facility] from [place] [id number] 07/02 for increasing o2 requirements. Patient transitioned to bipap, and then intubated for bronch. Patient then extubated to highflow then transitioned Kristina, tolerating well. Neuro intact, NSR, bp wdl. Vuong in place with appropriate output, responding well to scheduled lasix. Wound vac to surgical site with milky, rojas, brown, green output. Rectal bagin place, incontinent of soft stool, concern of stool spilling into wv. H&H critical this morning. Action: 1 unit prbc given. Maintained o2 at 4, attempted to titrate as appropriate. Independently using acapella, needs encouragement with IS (up to ...250...). Cough assist and vest therapy with RT.Q2 reposition. Response: Maintained 4 liters nc. Transfer to [facility]. ANTONIA RODRIGUEZ RN 07/05/2023 7:17 * Plan of Care - Karley Patton RN - 07/05/2023 0059 EDT Images from the original note were not included. D: 19:30- Report received, alarms parameters reviewed and set, assumed patient care. Patient s/p Nec Fasc with multiple debridements/washout and with wound vac in place. Tx to SICU 5/8d/t increase oxygen requirements. Bipap, intubated and bronch. Now extubated and on 4 L NC. A: See epic care flow sheets and MAR, PLAN- Continue to monitor, hemodynamics, neurological, cardiovascular, respiratory and GI/ status. Monitor and treat for pain and anxiety. Provide education and support for patient and family. ~2000 Upon assessment pt flexi-seal out and fully inflated. ~PRN Dilaudid given for pain with good effect. R: Will continue to monitor and notify MD of any changes. * Plan of Care - Isai Hernandez MD - 07/04/2023 1320 EDT SICU Sign Off Note Patient weaned off of pressors early this morning and transitioned from HFNC to NC. Currently satting 96% on 4L NC. Patient signed out to ACS resident. Plan - SICU to sign off at this time - Please reach out with further questions or concerns Neuro: Robaxin 750mg QID, PO 2-4mg dilaudid q4h prn, IV 0.25-0.5mg dilaudid q2h prn CV: Cardiac monitoring via noninvasive blood pressure cuff Goal SBP>90 and MAP>65 Given recent discontinuation of pressors, would recommend holding ENGINE INSTALLER antihypertensives and restarting when deemed appropriate Pulm: Goal SpO2 > 92%, titrate supplemental O2 as needed Vest therapy with respiratory therapy for mucous clearance Aggressive Incentive spirometry, optimize patient positioning Duonebs QID, albuterol q4h prn FEN/GI: Diet: Consistent Carb Hold mIVF due to goal of diuresis Bowel regimen miralax BID, colace BID Daily BMP replete PRN Heme: Check CBCs daily 40mg lovenox daily for chemoppx Endo: a1c 8.2 Insulin ordered ISAI HERNANDEZ MD PGY-1 07/04/2023 13:32 * Plan of Care - Antonia Rodriguez RN - 07/04/2023 1025 EDT Images from the original note were not included. Problem: Daily Care Plan Goals Goal: Care Plan Documentation Flowsheets (Taken 07/03/20231999 by Zaira High, KIESHA) Area of Focus: Respiratory Goal This Shift: Pt will maintain O2 sat at goal or above 92 Data: Admitted to hospital 06/12 for nec fac, s/p multiple debridements and vac placement, c/b bradyarrest x2. Transfer [place] [facility] [place] [id number] 07/02 @ 1900 for increasing o2 requirements. Patient transitioned to bipap, and then intubated for bronch. Sputum sample sent. Patient now extubated to highflow then transitioned to RA, tolerating well. Neuro intact, NSR, bp wdl. Vuong and rectal tube in place with appropriate output. Wound vac to surgical site with milky rojas output as document. Action: Extubated at 0850 to high flow, fio2 and flow weaned. Woundvac seal changed by acs, plan for full vac change on Saturday. Q2 repositions. Resumed regular diet. Response: Continues to tolerate 4 liters nasal cannula. ANTONIA RODRIGUEZ RN 07/04/2023 10:25 * Plan of Care - Stan Leigh RN - 07/03/2023 0638 EDT Problem: Daily Care Plan Goals Goal: Care Plan Documentation Flowsheets (Taken 07/02/20232199) Area of Focus: Safety Goal This Shift: pt will not pull on lines and d/c sitter Note: Data: Pt alert and oriented to self and place. 1:1 sitter. Pt calm and not pulling on lines per sitter this shift. Action: Meds given per APR. Sitter discontinued. Hourly checked. Response: Pt safe and lines intact. Pt with an episode of CP, SOB, tachypnea, de-sat to mid 80's and anxiety this am. EKG was done. Neb treatment was done by RT. And Pt currently on 8L/venti mask. STAN LEIGH RN 07/03/2023 6:32 * Plan of Care - Salazar Quarles RN - 07/02/2023 1127 EDT Data: Alert and oriented x3 with intermittent confusion/delirium, POD #19 Necrotizing fasciitis to buttock. Wound vac, rectal tube, vuong in place. IV to right AC. Lungs course crackles in bilateral lungs, BS active x4, CCD diet, blood sugar monitoring, sitter at bedside for impulsiveness Action: Administered scheduled/PRN medications per APR, Q2hr reposition, monitor BS, hourly rounding for safety, monitor I&O's, bed bath and hair wash done, monitored out put of vuong, wound vac,rectal tube. Reinforced wound vac, pt had coughing spell and coughed up thick green mucous, Q2hr repositioning, bed in lowest position, call light with in reach Response: pt tolerated rolling side to side ok, increased pain with turning to the right and sitting upright, Ate 100% of meals, reports moderate pain controlled with scheduled and PRN jhonatan QUARLES RN 07/02/2023 11:27 * Plan of Care - Robert Champion RN - 07/02/2023 0550 EDT Data: Patient HD#19 for necrotizing fascitis with most recent procedure PPD#1 for WV change and ACELL placement. Patient with WV, rectal tube, and vuong catheter in place. 1:1 sitter at bedside for delerium and pulling at tubes/lines. Assumed care of patient at 1900. Action: Patient calmly resting and watching TV on evening shift. No attempts to get OOB or pull at lines, although disoriented to day/time/location and was concerned about her magnesium levels which are all WNL. LS still coarse crackles throughout, patient with spontaneous strong cough currently on2 L O2 via NC satting well. Frequent offers to reposition patient met with some resistance as she stated she was finally comfortable. She is moving all her extremities independently and wiggling back in forth in the bed so some small changes are happening without nursing assistance. Patient continously rates pain at 8/10. Prn pain medication given when needed and ativan given x1 for restlessness and anxiety. Response: Care clustered to promote and repositioning encouraged through the shift. Patient able torest for small stretches overnight but not consecutive hours. ROBERT CHAMPION RN 07/01/2023 22:20 * Plan of Care - Sagar Diane RN - 06/29/2023 1841 EDT Problem: Daily Care Plan Goals Goal: Care Plan Documentation Flowsheets (Taken 06/29/20231839) Area of Focus: Pain/ Comfort Data: HD #16 pt on 5 lpm of humidified O2. Pts feeding tube dc'd. Vuong draining/patent. Wound vac to suction draining serosanguineous. Pt with 1:1 sit at bedside. Action: Pt medicated per APR. Prn dilaudid and ativan given. Pt received RT 3x. Pt eating 100% of all meals. No BM today. Nystatin powder applied to inner thighs Response: Pt reports pain in buttock at wound vac site and continues to endorses all over general pain. Pt repositioned q2 hours. Call marroquin within reach, 1:1 sit at bedside. SAGAR DIANE RN 06/29/2023 18:41 * Plan of Care - Oliva Fernández RN - 06/29/2023 0355 EDT Problem: Daily Care Plan Goals Goal: Care Plan Documentation Outcome: Ongoing Data: Patient alert but with intermittent confusion. Patient pulled iv out couple of times. Also pulled the rectal tube and wound vac out. Action: sitter at bedside now. Safety maintained. Hourly rounds done Response: will continue to monitor. OLIVA FERNÁNDEZ RN 06/29/2023 3:56 * Plan of Care - Tara Castanon RN - 06/28/2023 1853 EDT Problem: Daily Care Plan Goals Goal: Care Plan Documentation Outcome: Ongoing Flowsheets (Taken 06/28/2023851 by Kaity Smith) Area of Focus: Skin Integrity Goal This Shift: Maintain skin integrity Data: Assumed care at 0700. Pt alert, oriented x3. HD #15 w/ necrotizing fasciitis wound to buttocks. Rectal tube in place, Vuong in place and draining. NG tube to left nare, no feeds ordered. Q2 turns. Wound vac to LC wall suction w/ sanguinous output. 10/10 pain. Action: Medication administered as ordered (see MAR). Repositioning encouraged. PO nutrition intakeencouraged. PRN Ativan given for anxiety. Provider at bedside for wound vac dressing change. Q1h safety checks completed. Response: Pt continued to report pain throughout shift, improved w/ PRN pain medication. Toleratingpo nutrition. Currently resting in bed with call light in reach. TARA CASTANON RN 06/28/2023 18:53 * Plan of Care - Kaity Smith - 06/28/2023 1610 EDT Problem: Daily Care Plan Goals Goal: Care Plan Documentation Flowsheets (Taken 06/28/2023 08) Area of Focus: Skin Integrity Goal This Shift: Maintain skin integrity Note: Data: pt admitted for necrotizing fasciitis in the sacral area. Wound vac on. Pt complains of10/10 pain, and prefer not to mobilize d/t pain. Pt is often positioned to the left. Action: pt educated on need to mobilize and repositioned to the right side. Heels floated. Repositioning offered q 2h. Response: patient tolerated repositioning moderately well. Pt still reports pain 10/10, but states being comfortable. Other attempts to repositioned were refused. Kaity Smith 06/28/2023 16:07 * Plan of Care - Tara Castanon RN - 06/27/2023 1444 EDT Problem: Daily Care Plan Goals Goal: Care Plan Documentation Outcome: Ongoing Flowsheets (Taken 06/27/2023 3857) Area of Focus: Pain/ Comfort Goal This Shift: Adequate pain control this shift Data: Assumed care at 0700. Pt Drowsy, oriented x3. HD #14 w/ necrotizing fasciitis wound to buttocks. Last debridement last night. Rectal tube in place, Vuong in place and draining. NG tube to left nare, no feeds ordered. Q2 turns. Wound vac to LC wall suction w/ sanguinous output. 10/10 pain. Action: Medication administered as ordered (see MAR). Repositioning encouraged. PO nutrition intakeencouraged. PRN Ativan given for anxiety. Q1h safety checks completed. Response: Pt continued to report pain throughout shift, improved w/ PRN pain medication. Tolerated breakfast and dinner PO. Currently resting in bed with call light in reach. TARA CASTANON RN 06/27/2023 14:44 * Plan of Care - Shryeas Hampton RN - 06/26/2023 1533 EDT Data: Nec fasc debridement x2 (OSH) Serial debridement, repair rectal injury (06/14) Additional debridement, washout (06/16) Additional debridement, washout, partial closure (06/18) Last wound vac change 06/23, plan for OR debridement today. Pt admitted to ICU overnight w/ respiratory distress, has been off bipap since around 0600, on 3LNC. No respiratory distress noted. Pt alert, oriented to self and year, BALTAZAR to command. +delirium, reoriented and redirected as needed, 1:1 sitter for pt safety. Pt restless and pulls at lines. NSR, BP stable. NPO for debridement. Wound vac to LCWS per orders w/ rojas, milky pink output. Rectal tube andfoley in place for wound healing. Action: Delirium precautions, reoriented as needed. Pain management w/ IV tylenol, robaxin, lidocaine patches. Pt endorses pain to R gluteal wound and chest w/ coughing. 20 mg IVP lasix x1 w/ good response. CBC resent this AM to confirm H/H drop. Type and screen sent per orders. Confirmed 22 unit lantus dose w/ pt being NPO. Okay to give per provider. Aggressive pulmonary toileting, pt w/ weak but productive cough. Groin and vulva very excoriated, fungal looking. Team aware, nystatin ordered. Response: Respiratory exam stable on 2LNC. Transfer to floor when bed available. Plan for OR debridement tonight. Sugars downtrending, oncoming RN aware. Pt more oriented at 1600. SHREYAS HAMPTON RN 06/26/2023 15:33 * Brief Op Note - Zahira Veras MD - 06/26/2023 1120 EDT Date: 06/26/2023 Location: [facility] OR Name: Della Browning, : 1970, Diagnosis Pre-Op Diagnosis Codes: * Necrotizing soft tissue infection [M79.89] Post-op Diagnosis * Necrotizing soft tissue infection [M79.89] Procedures * debridement of perianal wound, wound vac placement Surgeons * Efraín Rueda MD - Primary * Zahira Veras MD - Resident - Assisting Procedure Summary Anesthesia: General ASA: IV Estimated Blood Loss: No Blood Loss Documented Total IV Fluids: see anesthesia log LDAs: Peripheral IV 06/25/23 2336 Anterior;Left;Distal Forearm (Active) Peripheral IV 06/25/23 2336 Anterior;Left;Proximal Forearm (Active) Wound Vac Right buttock (Active) Wound Vac Right;Medial buttock (Active) Rectal Tube (Active) Urethral Catheter (Active) Wound 06/14/23 Buttock;Rectum (Active) NG/OG Tube Nasogastric 14 fr Left nostril (Active) [REMOVED] CVC Single Lumen 06/16/23 (Removed) [REMOVED] CVC Triple Lumen 06/15/23 Do Not Power Inject (Removed) [REMOVED] Peripheral IV 06/13/23 Anterior;Left;Proximal Antecubital (Removed) [REMOVED] Peripheral IV 06/13/23 Right Antecubital (Removed) [REMOVED] Peripheral IV 06/14/23 0157 Anterior;Left Upper Arm (Removed) [REMOVED] Peripheral IV 06/14/23 1441 Anterior;Right Forearm (Removed) [REMOVED] Peripheral IV 06/17/23 0825 Anterior;Left Forearm (Removed) [REMOVED] Peripheral IV 06/24/23 0416 Anterior;Right Forearm (Removed) [REMOVED] Non-Surgical Airway (Removed) [REMOVED] Non-Surgical Airway ETT - cuffed 7.5 (Removed) [REMOVED] Non-Surgical Airway (Removed) [REMOVED] Non-Surgical Airway (Removed) [REMOVED] Arterial Catheter 06/15/23 Radial Anterior;Left (Removed) [REMOVED] Wound 06/19/23 Left Elbow (Removed) [REMOVED] NG/OG Tube Orogastric Center mouth (Removed) [REMOVED] NG/OG Tube Nasogastric 16 fr Left nostril (Removed) [REMOVED] NG/OG Tube Orogastric 14 fr Center mouth (Removed) [REMOVED] NG/OG Tube Nasoduodenal 12 fr Left nostril (Removed) Staff: Retail Pharmacist: Brooke Rivera RN Scrub Person: Perry Flores RN Patient Wholesale Representative: Red Morrell Indications: Della Browning is an 52 y.o. female who is having surgery for * No pre-op diagnosis entered * Findings: right perineal debridement, wound vac placement, vac with NGT lumen into sponge, to wall suction at all times Complications: None; patient tolerated the procedure well. Disposition: PACU - hemodynamically stable. Condition: stable Specimens Collected: No specimens collected during this procedure. ZAHIRA VERAS MD 06/27/2023 0:03 Surgery PGY1 * Plan of Care - Karley Patton RN - 06/26/2023 0205 EDT Images from the original note were not included. D: 2229- Report received from Derek Rivera RN ~2245 Patient s/p rapid response on Derek 6 d/t respiratory distress. Patient transferred to SICU on NRB mask with oxygen saturations in the 80's and RR in the 40's. Upon arrival RT at bedside and ptplace on Bipap with improvement. ABG, EKG, and Lab's obtained per order. 40 mg Iv Lasix administered per order. A: See epic care flow sheets and MAR, PLAN- Continue to monitor, hemodynamics, neurological, cardiovascular, respiratory and GI/ status. Monitor and treat for pain and anxiety. Provide education and support for patient and family. R: Will continue to monitor and notify MD of any changes. * Plan of Care - Ashely Mejia RN - 06/25/2023 1807 EDT Problem: Daily Care Plan Goals Goal: Care Plan Documentation Outcome: Ongoing Flowsheets Taken 06/25/2023 05 by Ofelia Salinas RN Goal This Shift: Pain will be well controled Taken 06/23/20231999 by Davey Washington RN Area of Focus: Pain/ Comfort Problem: High Fall Risk: Goal: Patient will Remain Free of Falls due to Altered Mobility Outcome: Ongoing Problem: SKIN INTEGRITY Goal: Skin integrity will improve or be maintained Outcome: Ongoing GAVIN: -A&O to self. Hallucinations throughout the day, such as seeing bugs. -Anxious and attempting to get OOB without assistance stating she needs to go to the bathroom. PRN ativan, pt responded well - C/o chest/rib pain. PRN dilaudid, pain well controlled. -Vuong catheter and rectal tube in place. Patient complained of rectal pressure, flushed rectal tube and pt stated relief. -NG remains in place, however eating regular diet and good PO intake. -OOB to chair via sarasteady, tolerated fairly: dizziness, SOB, R buttocks pain. -Buttocks wound with wound vac to LCWS. Milky pink drainage. ASHELY MEJIA RN 06/25/2023 18:07 * Plan of Care - Ofelia Salinas RN - 06/25/2023 0552 EDT Problem: Daily Care Plan Goals Goal: Care Plan Documentation Note: Data: Patient is alert but confused, needs reorientation frequently needs reoriented. On continuousspO2 monitoring. NG with in place. Wound vac on buttocks connected to suction. Vuong and rectal tube in place. Action: Administered meds per APR. Pt repositioned PRN. Response: Will continue to monitor OFELIA SALINAS RN 06/25/2023 5:32 * Plan of Care - Ashely Mejia RN - 06/24/2023 1839 EDT Data: A&Ox2-3, needs reoriented. Dyspnea at rest, use of accessory muscles. Maintains spO2 94-97% on RA. Complains of rib pain. Hoarse whisper. Regular, carb consistent diet- ate some lunch. NG with TF. Vuong and rectal tube in place. Wound vac to LCWS on buttocks, change complete by MD. Action: PRN dilaudid and ativan for pain and anxiety. Repositioned frequently. Response: Remains dyspneic at times, improves with pain and anxiety control. Tolerated diet well. ASHELY MEJIA RN 06/24/2023 18:39 * Plan of Care - Davey Washingotn RN - 06/24/2023 0609 EDT Problem: SKIN INTEGRITY Goal: Skin integrity will improve or be maintained Outcome: Ongoing Problem: Pressure Ulcer Prevention Goal: Absence Of Pressure Ulcer Outcome: Ongoing Problem: High Fall Risk: Goal: Patient will Remain Free of Falls due to Confusion Outcome: Ongoing Data: Patient AAOx2 disoriented to situation and time. VSS on room air and c/o wound pain and chestpain. Placed on 2L for increased WOB and accessory muscle use. Provider notified about chest pain. Labs and EKG ordered. Action: Medications administered per mar including PRN pain and anxiety med. Response: Patient calmed down, WOB decreased and pt trying to rest. DAVEY WASHINGTON RN 06/24/2023 6:10 * Plan of Care - Nathalie Hall RN - 06/23/2023 1540 EDT FOUR EYES SKIN ASSESSMENT Four Eyes skin assessment was performed on admission to the unit by Nathalie Hall RN and Jovita Mendoza. Patient has the following devices at the time of this assessment: NGT, BP cuff, Peripheral IV, O2 sat probe, Vuong, and Rectal tube. Device related pressure injury present? No Areas of concern: Fill in detail for areas of concern [] Occiput [] Nose [] Ear [] Lip [] Scapula [] Spinous process [] Shoulder [x] Elbow [] Iliac crest [x] Sacrum/coccyx [] Ischial tuberosity [] Trochanter [] Knee [] Malleolus [] Heel [] Toe [] Other: Left arm has some bruising, left elbow with 4x4 mepilex and old bruise- blanchable, multiple small lacerations, perineum very excoriated. Last Jerson Score: 14 Instructions: Add LDA for any identified wounds Add [place] image for any suspected PI or non surgical wounds Order wound consult if suspected PI identified If Jerson is < or = to 16, initiate Pressure Injury Prevention Bundle ([id number]). 06/23/2023 15:40 * Plan of Care - Lucille Covarrubias RN - 06/22/2023 0630 EDT Problem: Daily Care Plan Goals Goal: Care Plan Documentation Outcome: Ongoing Flowsheets Taken 06/22/2023 0400 by Lucille Covarrubias RN Area of Focus: Pain/ Comfort Taken 06/22/2023 0400 by Cong Timmons RN Goal This Shift: Cluster care/Facilitate Rest Data: Pt is post op with the focus being pain control Action: pt has been given several medications for pain control as well as anxiety for greater respiratory response Response: medications have had mild success LUCILLE COVARRUBIAS RN 06/22/2023 6:30 * Plan of Care - Cullen Sam MD - 06/21/2023 1055 EDT Brief EP cardiology note Chart reviewed. TVP removed by primary team overnight. No further episodes of CHB this week. It is our hope that these episodes were vagally mediated and will resolve as her clinical conditionstabilizes. While pacing support will treat the bradycardia associated with the vagal episodes, it would not address the vagally mediated vasodilation. Additionally, permanent pacemaker implantation is currently contraindicated due to her active infection and frequent requisite prone positioning during her debridements. EP cardiology will sign off. Please feel free to reengage us if she has recurrent episodes of CHB. Cullen Sam MD Cardiovascular Disease Fellow * Plan of Care - Doris Fatima RN - 06/21/2023 0600 EDT Problem: Daily Care Plan Goals Goal: Care Plan Documentation Outcome: Ongoing Problem: High Fall Risk: Goal: Patient Will Remain Free from Fall-Related Injury Outcome: Ongoing Problem: SKIN INTEGRITY Goal: Skin integrity will improve or be maintained Outcome: Ongoing Data: Patient admitted for NSTI Right Gluteal region s/p multiple debridement and wash out (See chart review for complicated hospital course) Action: Prn dilaudid given for pain. Prn ativan given for agitation (see MAR). Right Buttock dressing changes done by surgical team. Transvenous pacer wires removed by SICU team without any complications. Response: Patient resting comfortably this morning. DORIS FATIMA RN 06/21/2023 06:00 * Plan of Care - Reza Brito MD - 06/20/2023 2257 EDT Pacing wire removed per discussion earlier today. Tip intact. No perceived complications. Reza Brito MD Pager #[phone] 06/20/2023 22:58 * Plan of Care - Tomas Alarcon, KIESHA - 06/20/2023 1838 EDT Assumed nursing care of patient at 0700. Patient resting in bed on HFNC, resting quietly, in no apparent pain or acute respiratory distress. Patient assessed. PLAN to monitor hemodynamics, labs, I&O within parameters. Assess for pain and manage for comfort. Reposition as tolerated to enhance recovery and preserve skin integrity. Keep patient and family updated. Notify HO of changes. Annettekade Alcantara to be bedside today, to discuss plan of care 0800- DELIO Lezama at bedside 0900- Discussion w/ Shoaib Bustamante SICU RES, pt in wernickes, will start thiamine, pt confused need for restraints, IV lorazepam 1100- SICU rounds- Increase amlodipine dose, discuss pts goals with family, replace David 1300-David replaced 1400- pt becoming more alert and oriented, following commands more regularly restraints dc 1500- meds po with pudding, swallows with out coughing 1600- Promote restarted 1700- resting comfortably * Plan of Care - Red Norton RN - 06/20/2023 0908 EDT Assumed nursing care of patient at 0700 with nurse restaurant management internship Tomas. Patient lying semi-fowlers in bed, resting quietly, in no apparent pain or acute respiratory distress. Patient assessed. PLAN to monitor hemodynamics, labs, I&O within parameters. Assess for pain and manage for comfort. Reposition as tolerated to enhance recovery and preserve skin integrity. Keep patient and loved ones updated. Notify HO of changes. 0845- Lezama at bedside, updated by nursing. Patient anxious, wants to poop and to leave. Difficult to redirect either thought process, reassuring safety in room, and presence of flexiseal. 1000- SICU rounds, led by Dr Monique. 1230- Family meeting with this nurse, life enrichment manager John, SICU Dr Bustamante, henrietta Alcantara and Carey. 1300- Palliative PALS SPECIALIST Vicente joins family meeting. 1430- Family at bedside. Patient more awake, interactive. Orders soup and custard and tea through encouragement of niece. Takes sips of water without coughing/choking. Patient with noticeable increased work of breathing since switch to HFNC. Patient RR 20s, some accessory muscle use in torso noted. 1630- Afternoon SICU rounds, led by Dr Monique. * Plan of Care - Claus Gillespie RN - 06/20/2023 0245 EDT Images from the original note were not included. Telemetry: 06/20/23 @ 00:00 - VT 02:42 - 06/20/23 06:45 - Pt. Self-removed DAVID tube prior to dressing change; refusing replacement at this time. Problem: Daily Care Plan Goals Goal: Care Plan Documentation Outcome: Ongoing Problem: High Fall Risk: Goal: Patient will Remain Free of Falls due to Altered Mobility Outcome: Ongoing Problem: High Fall Risk: Goal: Patient Will Remain Free from Fall-Related Injury Outcome: Ongoing Problem: Sensory: Goal: Ability to compensate for vision loss will be supported Outcome: Ongoing Problem: SKIN INTEGRITY Goal: Skin integrity will improve or be maintained Outcome: Ongoing Problem: Pressure Ulcer Prevention Goal: Absence Of Pressure Ulcer Outcome: Ongoing Problem: High Fall Risk: Goal: Patient will Remain Free of Falls due to Med. Side Effects Outcome: Ongoing Problem: High Fall Risk: Goal: Patient will Remain Free of Falls due to Altered Elimination Outcome: Ongoing Problem: Safety: Description: Module scope: For the purpose of this module, the definition for restraint comes from the Medicare and Medicaid Programs; Hospital Conditions of Participation. A restraint is any manual,physical, or mechanical device, material, or equip ... Goal: Complications related to restraint use will be avoided or minimized Outcome: Ongoing Problem: HEMODYNAMIC STATUS Goal: Patient Has Stable VS & Fluid Balance Outcome: Ongoing Problem: High Fall Risk: Goal: Patient will Remain Free of Falls due to Dizziness/Vertigo Outcome: Ongoing Problem: High Fall Risk: Goal: Patient will Remain Free of Falls due to Confusion Outcome: Ongoing * Brief Op Note - Dana Miner MD - 06/19/2023 1428 EDT Date: 06/13/2023 - 06/19/2023 Location: [facility] OR Name: Della Browning, : 1970, Diagnosis Pre-Op Diagnosis Codes: * Necrotizing soft tissue infection [M79.89] Post-op Diagnosis * Necrotizing soft tissue infection [M79.89] Procedures * Incision & drainage gluteal wound Surgeons * Ramón Peraza MD - Primary * Dana Miner MD - Resident - Assisting Procedure Summary Anesthesia: General ASA: ASA status not filed in the log. Estimated Blood Loss: 10 mL Total IV Fluids: 600 mL LDAs: CVC Single Lumen 06/16/23 (Active) Peripheral IV 06/14/23 0157 Anterior;Left Upper Arm (Active) Peripheral IV 06/17/23 0825 Anterior;Left Forearm (Active) Rectal Tube (Active) Urethral Catheter (Active) Non-Surgical Airway (Active) Wound 06/14/23 Buttock;Rectum (Active) NG/OG Tube Nasoduodenal 12 fr Left nostril (Active) [REMOVED] CVC Triple Lumen 06/15/23 Do Not Power Inject (Removed) [REMOVED] Peripheral IV 06/13/23 Anterior;Left;Proximal Antecubital (Removed) [REMOVED] Peripheral IV 06/13/23 Right Antecubital (Removed) [REMOVED] Peripheral IV 06/14/23 1441 Anterior;Right Forearm (Removed) [REMOVED] Non-Surgical Airway (Removed) [REMOVED] Non-Surgical Airway ETT - cuffed 7.5 (Removed) [REMOVED] Arterial Catheter 06/15/23 Radial Anterior;Left (Removed) [REMOVED] NG/OG Tube Orogastric Center mouth (Removed) [REMOVED] NG/OG Tube Nasogastric 16 fr Left nostril (Removed) [REMOVED] NG/OG Tube Orogastric 14 fr Center mouth (Removed) Staff: Retail Pharmacist: Tania Galindo RN Relief Retail Pharmacist: Jessi Cardozo RN Scrub Person: Liat Denise RN Patient Wholesale Representative: Carter Barth; Ayden Samaniego Indications: Della Browning is an 52 y.o. female who is having surgery for * No pre-op diagnosis entered * Findings: Scant fibrinopurulent tissue throughout wound. Overall quite healthy appearing. No new pockets of infection found. Wound debrided and pulse lavaged. Inferior aspect closed loosely with 2-0 nylon vertical mattress sutures x 3. Remainder of wound re-packed with Dakins soaked kerlix. Complications: None; patient tolerated the procedure well. Disposition: PACU - hemodynamically stable. Condition: stable Specimens Collected: No specimens collected during this procedure. Attending Attestation: I was present and scrubbed for the entire procedure Ramón Peraza MD * Plan of Care - Tomas Alarcon RN - 06/19/2023 1008 EDT Assumed nursing care of patient at 0700. Patient resting in bed turned to the left, resting quietly, in no apparent pain or acute respiratory distress. Patient assessed. PLAN to monitor hemodynamics,labs, I&O within parameters. Assess for pain and manage for comfort. Reposition as tolerated toenhance recovery and preserve skin integrity. Keep patient and family updated. Notify HO of changes. 0900- EKG 0910 -TTE 0930-SICU Rounds-Add amlodipine and q6 bg, pt deemed unable to consent at this time 1000- pts fiance haigler whom the patient lives with and pts nursing home friend also at bedside 1300- Pt to OR 1500-Pt returned, pt placed on bipap and given labetalol for HTN 1530- Pts niece updated-CM discussed plan and will be present tomorrow 1530-Pt on cpap, work of breathing improved 1800-Tube feeding resumed * Plan of Care - Red Norton, KIESHA - 06/19/2023 0757 EDT Assumed nursing care of patient at 0700 with nurse restaurant management internship Tomas. Patient lying left lateral recumbent in bed, resting quietly, right side hearing aid in place, in no apparent pain or acute respiratorydistress. Patient assessed. PLAN to monitor hemodynamics, labs, I&O within parameters. Assess for pain and manage for comfort. Reposition as tolerated to enhance recovery and preserve skin integrity. Keep patient and loved ones updated. Notify HO of changes. 0910-Bedside TTE begins, following EKG. 0930- SICU rounds, led by Dr Monique, presented by Dr Jennings. 1105- Lezama, and family friend/little brother to her Jona, at bedside. Csae management and SICU advised. 1200- Anesthesia in to get consent from patient and loved ones in room. 1250- Father Keegan in to see patient and family. 1300- Patient to OR in care of anesthesia team. 1455- Safely returns from OR, report shared by anesthesia and ACS. * Plan of Care - Claus Gillespie RN - 06/17/2023 205 EDT Images from the original note were not included. Telemetry: 06/17/23 20:00 - 06/18/23 00:00 - Problem: Daily Care Plan Goals Goal: Care Plan Documentation Outcome: Ongoing Problem: High Fall Risk: Goal: Patient will Remain Free of Falls due to Altered Mobility Outcome: Ongoing Problem: High Fall Risk: Goal: Patient Will Remain Free from Fall-Related Injury Outcome: Ongoing Problem: Sensory: Goal: Ability to compensate for vision loss will be supported Outcome: Ongoing Problem: SKIN INTEGRITY Goal: Skin integrity will improve or be maintained Outcome: Ongoing Problem: Pressure Ulcer Prevention Goal: Absence Of Pressure Ulcer Outcome: Ongoing Problem: High Fall Risk: Goal: Patient will Remain Free of Falls due to Med. Side Effects Outcome: Ongoing Problem: High Fall Risk: Goal: Patient will Remain Free of Falls due to Altered Elimination Outcome: Ongoing Problem: Safety: Description: Module scope: For the purpose of this module, the definition for restraint comes from the Medicare and Medicaid Programs; Hospital Conditions of Participation. A restraint is any manual,physical, or mechanical device, material, or equip ... Goal: Complications related to restraint use will be avoided or minimized Outcome: Ongoing Problem: HEMODYNAMIC STATUS Goal: Patient Has Stable VS & Fluid Balance Outcome: Ongoing Problem: High Fall Risk: Goal: Patient will Remain Free of Falls due to Dizziness/Vertigo Outcome: Ongoing Problem: High Fall Risk: Goal: Patient will Remain Free of Falls due to Confusion Outcome: Ongoing * Plan of Care - Sonya Chauhan RN - 06/17/2023 1628 EDT Problem: Daily Care Plan Goals Goal: Care Plan Documentation Outcome: Ongoing Problem: High Fall Risk: Goal: Patient will Remain Free of Falls due to Altered Mobility Outcome: Ongoing Data: 52 y/o female admitted for necrotizing fascitis, most recently POD 0 from I and D of wound. Intubated, sedated on propofol and ketamine. OG with tube feeds infusing. Rectal tube in place. Foleyin place. 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 Action: Medicated per APR (refer to APR). Turned and repositioned. TF type changed per APR. Hair washed. Taken to OR for I and D. Propofol kept at 30/hr per MD d/t high triglycerides. Response: Large amounts of stool out in rectal tube. Adequate amounts of urine made. Patient is intermittently awake on prop and ketamine. Quiet environment maintained d/t delirium. Tolerated OR well. SONYA CHAUHAN RN 06/17/2023 16:28 * Brief Op Note - Dana Miner MD - 06/17/2023 1441 EDT Date: 06/13/2023 - 06/17/2023 Location: [facility] OR Name: Della Browning, : 1970, Diagnosis Pre-Op Diagnosis Codes: * Necrotizing soft tissue infection [M79.89] Post-op Diagnosis * Necrotizing soft tissue infection [M79.89] Procedures * INCISION AND DRAINAGE, ABSCESS, ISCHIORECTAL OR PERIRECTAL Surgeons * Kyle Mars MD - Primary * Dana Miner MD - Resident - Assisting Procedure Summary Anesthesia: General ASA: ASA status not filed in the log. Estimated Blood Loss: 15 mL Total IV Fluids: 200 mL LDAs: CVC Single Lumen 06/16/23 (Active) Peripheral IV 06/14/23 0157 Anterior;Left Upper Arm (Active) Peripheral IV 06/17/23 0825 Anterior;Left Forearm (Active) Rectal Tube (Active) Urethral Catheter (Active) Wound 06/14/23 Buttock;Rectum (Active) NG/OG Tube Orogastric 14 fr Center mouth (Active) [REMOVED] CVC Triple Lumen 06/15/23 Do Not Power Inject (Removed) [REMOVED] Peripheral IV 06/13/23 Anterior;Left;Proximal Antecubital (Removed) [REMOVED] Peripheral IV 06/13/23 Right Antecubital (Removed) [REMOVED] Peripheral IV 06/14/23 1441 Anterior;Right Forearm (Removed) [REMOVED] Non-Surgical Airway (Removed) [REMOVED] Non-Surgical Airway ETT - cuffed 7.5 (Removed) [REMOVED] Arterial Catheter 06/15/23 Radial Anterior;Left (Removed) [REMOVED] NG/OG Tube Orogastric Center mouth (Removed) [REMOVED] NG/OG Tube Nasogastric 16 fr Left nostril (Removed) Staff: Retail Pharmacist: Chrissie Olivarez RN Relief Retail Pharmacist: Bethany Puente RN Scrub Person: Brayden Moralez Jr., RN; Paolo Penn Patient Wholesale Representative: Adrian Dumont Indications: eDlla Browning is an 52 y.o. female who is having surgery for * No pre-op diagnosis entered * Findings: Scattered necrotic tissue throughout wound bed including in ischiorectal fossa tunnel. Rectal repair intact. Complications: None; patient tolerated the procedure well. Disposition: PACU - hemodynamically stable. Condition: stable Specimens Collected: No specimens collected during this procedure. Attending Attestation: I was present and scrubbed for the entire procedure Kyle Mars MD * Plan of Care - Claus Gillespie RN - 06/16/2023 0334 EDT Images from the original note were not included. Telemetry: 06/16/23 @ 00:00 - Problem: Daily Care Plan Goals Goal: Care Plan Documentation Outcome: Ongoing Problem: High Fall Risk: Goal: Patient will Remain Free of Falls due to Altered Mobility Outcome: Ongoing Problem: High Fall Risk: Goal: Patient Will Remain Free from Fall-Related Injury Outcome: Ongoing Problem: Sensory: Goal: Ability to compensate for vision loss will be supported Outcome: Ongoing Problem: SKIN INTEGRITY Goal: Skin integrity will improve or be maintained Outcome: Ongoing Problem: Pressure Ulcer Prevention Goal: Absence Of Pressure Ulcer Outcome: Ongoing Problem: High Fall Risk: Goal: Patient will Remain Free of Falls due to Med. Side Effects Outcome: Ongoing Problem: High Fall Risk: Goal: Patient will Remain Free of Falls due to Altered Elimination Outcome: Ongoing Problem: Safety: Description: Module scope: For the purpose of this module, the definition for restraint comes from the Medicare and Medicaid Programs; Hospital Conditions of Participation. A restraint is any manual,physical, or mechanical device, material, or equip ... Goal: Complications related to restraint use will be avoided or minimized Outcome: Ongoing Problem: HEMODYNAMIC STATUS Goal: Patient Has Stable VS & Fluid Balance Outcome: Ongoing * Plan of Care - Lisbeth Sheridan RN - 06/15/2023 1830 EDT Problem: High Fall Risk: Goal: Patient will Remain Free of Falls due to Altered Mobility Outcome: Ongoing Problem: Sensory: Goal: Ability to compensate for vision loss will be supported Outcome: Ongoing Problem: SKIN INTEGRITY Goal: Skin integrity will improve or be maintained Outcome: Ongoing Problem: Pressure Ulcer Prevention Goal: Absence Of Pressure Ulcer Outcome: Ongoing Problem: Safety: Description: Module scope: For the purpose of this module, the definition for restraint comes from the Medicare and Medicaid Programs; Hospital Conditions of Participation. A restraint is any manual,physical, or mechanical device, material, or equip ... Goal: Complications related to restraint use will be avoided or minimized Outcome: Ongoing Problem: HEMODYNAMIC STATUS Goal: Patient Has Stable VS & Fluid Balance Outcome: Ongoing Data: Patient extubated to HFNC Action: Transitioned HFNC to traditional NC. Patient pursed lip breathing. ABG obtained Response: Respiratory acidoses, BIPAP placed. Continue to reassess. LISBETH SHERIDAN RN 06/15/2023 18:32 * Plan of Care - Isabell Nolasco MD - 06/15/2023 1050 EDT Brief ACS Update Note [facility] contacted regarding OR cultures. From 06/11, buttock tissue culture with gram positiveflora (mixed). Urine culture with gram negative rods. Blood cultures with gram positive cocci in one set. None of the above have speciated. Our 06/13 tissue culture currently with mixed gram positive and gram negatives. Will continue with broad spectrum antibiotics for now. Isabell Nolasco MD General Surgery 06/15/23 * Plan of Care - Claus Gillespie RN - 06/15/2023 0436 EDT Images from the original note were not included. Pt. Returned from OR at 23:54 on 06/14/23; on reinaldo and maintenance fluids; ventilated but on minimal settings. Staff awaiting CXR, post OG placement and nursing and RT at bedside re-taping insecure ETT. After this, pt. Went bradycardic, propofol stopped, atropine given @ 0.5 mg, responsive to drug, but ongoing decrease in HR and PEA discovered at bedside and code called. ROSC achieved at ~00:40 after 2x rounds compressions and 1 mg epinephrine. 2g CaCl; 2 amp bicarb given @ 00:41. XR completed and affirmed incorrect ETT placement; ETT repositioned at bedside. Pt. Localizing to painful stimulus immediately. Given sedation for CVC and arterial line placement (see eMAR). PT. Tolerated procedures well. Remains critical, ongoing. Restarted sedation and utilizing levophed for MAP < 65. Staff unable to find information on family. TELEMETRY: 06/15/23 @ 00:00 - HB to PEA arrest progression 06/15/23 @ 00:32- 1st degree HB to 2nd degree type II 06/15/23 @ 00:33 - 06/15/23 @ 00:34 - 06/15/23 @ 00:35 - 06/15/23 @ 00:40 - post 2nd round CPR 06/15/23 @ 04:00 - Problem: Daily Care Plan Goals Goal: Care Plan Documentation Outcome: Ongoing Problem: High Fall Risk: Goal: Patient will Remain Free of Falls due to Altered Mobility Outcome: Ongoing Problem: High Fall Risk: Goal: Patient Will Remain Free from Fall-Related Injury Outcome: Ongoing Problem: Sensory: Goal: Ability to compensate for vision loss will be supported Outcome: Ongoing Problem: SKIN INTEGRITY Goal: Skin integrity will improve or be maintained Outcome: Ongoing Problem: Pressure Ulcer Prevention Goal: Absence Of Pressure Ulcer Outcome: Ongoing Problem: High Fall Risk: Goal: Patient will Remain Free of Falls due to Med. Side Effects Outcome: Ongoing Problem: High Fall Risk: Goal: Patient will Remain Free of Falls due to Altered Elimination Outcome: Ongoing Problem: Safety: Description: Module scope: For the purpose of this module, the definition for restraint comes from the Medicare and Medicaid Programs; Hospital Conditions of Participation. A restraint is any manual,physical, or mechanical device, material, or equip ... Goal: Complications related to restraint use will be avoided or minimized Outcome: Ongoing * Brief Op Note - Ayden Alexander MD - 06/14/2023 2341 EDT Date: 06/13/2023 - 06/14/2023 Location: [facility] OR Name: Della Kalyn Browning : 1970, Diagnosis Pre-Op Diagnosis Codes: * Necrotizing soft tissue infection [M79.89] Post-op Diagnosis * Necrotizing soft tissue infection [M79.89] Procedures Debridement of right buttock necrotizing fasciitis, primary repair of rectal injury Surgeons * Moo Monique MD - Primary Ayden Alexander MD PGY-4 Procedure Summary Anesthesia: General ASA: III Estimated Blood Loss: 300 mL Total IV Fluids: 1000 mL, 2 units pRBCs UOP: 75 mL LDAs: Peripheral IV 06/14/23 0157 Anterior;Left Upper Arm (Active) Peripheral IV 06/14/23 1441 Anterior;Right Forearm (Active) Rectal Tube (Active) Urethral Catheter (Active) Non-Surgical Airway (Active) [REMOVED] Peripheral IV 06/13/23 Anterior;Left;Proximal Antecubital (Removed) [REMOVED] Peripheral IV 06/13/23 Right Antecubital (Removed) Staff: Retail Pharmacist: Perry Flores RN Scrub Person: Willie Haney Indications: Della Browning is an 52 y.o. female who is having surgery for necrotizing fasciitis. Findings: dressing removed and significant amount of old clot evacuated. Debridement of devitalizedfat revealed necrotic fascia and multiple pockets of undrained purulent fluid. Wound debrided to fascia and sacral periosteum. Inadvertent rectal injury repaired primarily with 3-0 silk suture and buttressed with perirectal fascia. Small arteriole actively bleeding, ligated with 2-0 silk ligature. Final dimensions 20 x 15 x 9 cm. Wound packed with 2 Dakin's- soaked Kerlix and covered with 12x12 and 18x18 gauze. Complications: rectal injury, repaired primarily Disposition: ICU - intubated and critically ill. Condition: unstable Specimens Collected: Order Name Source Comment Collection Info Order Time FUNGUS CULTURE/SMEAR Soft Tissue Collected By: Moo Monique MD 06/14/2023 22:51 Results Release to Patient (Note: Choosing Manual Release will only block results from tests performed at [facility] and does not apply for Miscellaneous Test Order) Immediate ANAEROBE CULTURE/SMEAR(INC. AEROBES), OTHER Soft Tissue Collected By: Moo Monique MD 06/14/2023 22:51 Is the specimen associated with a prosthetic joint? (If yes, the lab will hold the culture for 10 days) No Results Release to Patient (Note: Choosing Manual Release will only block results from tests performed at [facility] and does not apply for Miscellaneous Test Order) Immediate PREPARE RED BLOOD CELLS 06/14/2023 18:47 Number of RBC units to keep ahead: 0 Attending Attestation: Dr. Monique was present and scrubbed for the entire procedure. AYDEN ALEXANDER MD 06/15/2023 1:47 General Surgery, PGY-4 #[id number] * Plan of Care - Harper Sandoval RN - 06/14/2023 0249 EDT Data: Pt arrived 0000 from [facility] for wound care needs d/t Necrotizing fasciitis. Neuro intact, VSS MIVF infusing Action: wound repacked by provider on arrival and in AM. Critical Na+ of 119, MIVF switched to NS from plasma-lyte. 500cc bolus d/t low uop, soft BP. 3% NS infusion started for hyponatremia. Prns given for pain. Multiple IV Abx, PICC recommended by IV team. Critical H&H, CBC resent, type and screen sent, 1 unit prbc unmatched infused. Repositioning self in bed. Clustered care to promote rest. Response: NPO for possible OR in next 24 hrs FOUR EYES SKIN ASSESSMENT Four Eyes skin assessment was performed on admission to the unit by Harper Sandoval RN and ThereseH. POP. Patient has the following devices at the time of this assessment: BP cuff, Peripheral IV, O2 sat probe, Vuong, Rectal tube, and SCD sleeves. Device related pressure injury present? No Areas of concern: Fill in detail for areas of concern [] Occiput [] Nose [] Ear [] Lip [] Scapula [] Spinous process [] Shoulder [x] Elbow : blanchable redness on Left elbow [x] Iliac crest : blanchable pinkness on Left hip [x] Sacrum/coccyx: large open wound [] Ischial tuberosity [] Trochanter [] Knee [] Malleolus [] Heel [] Toe [] Other: Last Jerson Score: 15 Instructions: Add LDA for any identified wounds Add [place] image for any suspected PI or non surgical wounds Order wound consult if suspected PI identified If Jerson is < or = to 16, initiate Pressure Injury Prevention Bundle ([id number]). 06/14/2023 2:50 HARPER SANDOVAL RN 06/14/2023 2:49 documented in this encounter Plan of Treatment Pending Results Name Type Priority Associated Diagnoses Date /Time TRANSFUSE RED BLOOD CELLS Transfuse Routine 06/14/2023 16:08 EDT TRANSFUSE RED BLOOD CELLS Transfuse Routine 06/14/2023 16:08 EDT TRANSFUSE RED BLOOD CELLS Transfuse Routine 06/14/2023 20:13 EDT TRANSFUSE RED BLOOD CELLS Transfuse Routine 06/14/2023 20:19 EDT PREPARE RED BLOOD CELLS Blood Bank Routine 0 06/17/2023 7:42 EDT TRANSFUSE RED BLOOD CELLS Transfuse Routine 07/05/2023 10:47 EDT TRANSFUSE RED BLOOD CELLS Transfuse Routine 07/05/2023 10:46 EDT Scheduled Orders Name Type Priority Associated Diagnoses Orde r Schedule PREPARE RED BLOOD CELLS Blood Bank Routine One Time for 1 Occurrences starting 06/17/2023 until 06/17/2023 Scheduled Referrals Name Type Priority Associated Diagnoses Order Schedule PROVIDER FOLLOW-UP INSTRUCTIONS Outpatient Referral Routine Ordered: 08/22/2023 AMB CONS/FOLLOW UP HOME HEALTH SERVICES Outpatient Referral Routine/Next Available Necrotizing soft tissue infection Type 2 diabetes mellitus without complication, without long-term current use of insulin (HCC-CMS) Expected: 08/29/2023 (Approximate), Expires: 08/21/2024 AMB CONS/FOLLOW UP ACUTE CARE SURGERY/TRAUMA/BURN Outpatient Referral Routine/Next Available Necrotizing soft tissue infection Expected: 08/29/2023 (Approximate), Expires: 08/21/2024 PROVIDER FOLLOW-UP INSTRUCTIONS Outpatient Referral Routine Ordered: 08/22/2023 PROVIDER FOLLOW-UP INSTRUCTIONS Outpatient Referral Routine Ordered: 08/22/2023 AMB CONS/FOLLOW UP PRIMARY CARE PHYSICIAN - EXTERNAL Outpatient Referral Routine/Next Available Necrotizing soft tissue infection Complete heart block (HCC-CMS) Type 2 diabetes mellitus without complication, without long-term current use of insulin (HCC-CMS) Expected: 08/29/2023 (Approximate), Expires: 08/21/2024 documented as of this encounter Procedures Procedure Name Priority Date/Time Associated Diagnosis Comments ECG REPORT - SCANNED 08/27/2023 9:57 EDT [...] POCT GLUCOSE, INTERFACED Routine 07/31/2023 18:06 EDT POCT GLUCOSE, INTERFACED Routine 07/31/2023 14:33 EDT [...] POCT GLUCOSE, INTERFACED Routine 07/22/2023 7:25 EDT COMPLETE BLOOD COUNT AND DIFFERENTIAL Routine 07/22/2023 6:51 EDT PHOSPHORUS Add-On 07/22/2023 6:51 EDT MAGNESIUM Add-On 07/22/2023 6:51 EDT BASIC METABOLIC PANEL (BMP) [...] DIFFERENTIAL, AUTOMATED MANUAL Today 07/11/2023 6:36 EDT COMPLETE BLOOD COUNT AND DIFFERENTIAL Routine 07/11/2023 6:36 EDT OSMOLALITY Routine 07/11/2023 6:36 EDT BASIC METABOLIC PANEL (BMP) Routine 07/11/2023 6:36 EDT UREA NITROGEN, URINE RANDOM Routine 07/11/2023 4:58 EDT CREATININE, URINE RANDOM Routine 07/11/2023 4:58 EDT OSMOLALITY, URINE Routine 07/11/2023 4:5 8 EDT POCT GLUCOSE, INTERFACED Routine 07/10/2023 21:29 EDT POCT GLUCOSE, INTERFACED Routine 07/10/2023 19:30 EDT POCT GLUCOSE, INTERFACED Routine 07/10/2023 18:20 EDT POCT GLUCOSE, INTERFACED Routine 07/10/2023 14:36 EDT POCT GLUCOSE, INTERFACED Routine 07/10/2023 11:59 EDT POCT GLUCOSE, INTERFACED Routine 07/10/2023 8:32 EDT POCT GLUCOSE, INTERFACED Routine 07/09/2023 20:38 EDT POCT GLUCOSE, INTERFACED Routine 07/09/2023 17:06 EDT POCT GLUCOSE, INTERFACED Routine 07/09/2023 11:59 EDT POCT GLUCOSE, INTERFACED Routine 07/09/2023 7:44 EDT DIFFERENTIAL, AUTOMATED MANUAL Today 07/09/2023 6:37 EDT COMPLETE BLOOD COUNT AND DIFFERENTIAL Routine 07/09/2023 6:37 EDT PHOSPHORUS Routine 07/09/2023 6:37 EDT MAGNESIUM Routine 07/09/2023 6:37 EDT BASIC METABOLIC PANEL (BMP) Routine 07/09/2023 6:37 EDT SODIUM Routine 07/08/2023 23:31 EDT POCT GLUCOSE, INTERFACED Routine 07/08/2023 21:52 EDT SODIUM Routine 07/08/2023 18:49 EDT POCT GLUCOSE, INTERFACED Routine 07/08/2023 17:41 EDT POCT GLUCOSE, INTERFACED Routine 07/08/2023 13:03 EDT SODIUM Routine 07/08/2023 12:03 EDT POCT GLUCOSE, INTERFACED Routine 07/08/2023 7:32 EDT DIFFERENTIAL, AUTOMATED MANUAL Today 07/08/2023 6:20 EDT COMPLETE BLOOD COUNT AND DIFFERENTIAL Routine 07/08/2023 6:20 EDT PHOSPHORUS Routine 07/08/2023 6:20 EDT MAGNESIUM Routine 07/08/2023 6:20 EDT BASIC METABOLIC PANEL (BMP) Routine 07/08/2023 6:20 EDT SODIUM Routine 07/07/2023 23:48 EDT POCT GLUCOSE, INTERFACED Routine 07/07/2023 21:15 EDT SODIUM Routine 07/07/2023 18:01 EDT POCT GLUCOSE, INTERFACED Routine 07/07/2023 17:31 EDT SODIUM Routine 07/07/2023 12:45 EDT POCT GLUCOSE, INTERFACED Routine 07/07/2023 11:49 EDT POCT GLUCOSE, INTERFACED Routine 07/07/2023 6:54 EDT DIFFERENTIAL, AUTOMATED MANUAL Today 07/07/2023 6:45 EDT COMPLETE BLOOD COUNT AND DIFFERENTIAL Routine 07/07/2023 6:45 EDT PHOSPHORUS Routine 07/07/2023 6:45 EDT MAGNESIUM Routine 07/07/2023 6:45 EDT BASIC METABOLIC PANEL (BMP) Routine 07/07/2023 6:45 EDT SODIUM Routine 07/07/2023 0:23 EDT POCT GLUCOSE, INTERFACED Routine 07/06/2023 20:31 EDT POCT GLUCOSE, INTERFACED Routine 07/06/2023 17:48 EDT SODIUM Routine 07/06/2023 17:48 EDT SODIUM Routine 07/06/2023 12:36 EDT POCT GLUCOSE, INTERFACED Routine 07/06/2023 11:35 EDT DIFFERENTIAL, AUTOMATED MANUAL Today 07/06/2023 7:25 EDT COMPLETE BLOOD COUNT AND DIFFERENTIAL Routine 07/06/2023 7:25 EDT PHOSPHORUS Routine 07/06/2023 7:25 EDT MAGNESIUM Routine 07/06/2023 7:25 EDT BASIC METABOLIC PANEL (BMP) Routine 07/06/2023 7:25 EDT POCT GLUCOSE, INTERFACED [...] COUNT AND DIFFERENTIAL Routine 07/05/2023 6:25 EDT PHOSPHORUS Routine 07/05/2023 6:24 EDT MAGNESIUM Routine 07/05/2023 6:24 EDT ALBUMIN Add-On 07/05/2023 6:24 EDT BASIC METABOLIC PANEL (BMP) Routine 07/05/2023 6:24 EDT SODIUM Routine 07/05/2023 [...] PORTABLE 1 VIEW STAT 07/04/2023 7:03 EDT COMPLETE BLOOD COUNT AND DIFFERENTIAL Routine 07/04/2023 6:30 EDT PHOSPHORUS Routine 07/04/2023 6:30 EDT MAGNESIUM Routine 07/04/2023 6:30 EDT BASIC METABOLIC PANEL (BMP) Routine 07/04/2023 6:30 EDT XR CHEST PORTABLE 1 VIEW STAT [...] POCT GLUCOSE, INTERFACED Routine 07/03/2023 6:59 EDT HN LAB CBC SMEAR REVIEW Today 07/03/2023 6:29 EDT DIFFERENTIAL, AUTOMATED MANUAL Today 07/03/2023 6:29 EDT TROPONIN I STAT 07/03/2023 6:29 EDT COMPLETE BLOOD COUNT AND DIFFERENTIAL Routine 07/03/2023 6:29 EDT PHOSPHORUS Routine 07/03/2023 6:29 EDT MAGNESIUM Routine 07/03/2023 6:29 EDT BASIC METABOLIC PANEL (BMP) Routine 07/03/2023 6:29 EDT EKG 12-LEAD STAT 07/03/2023 3:57 EDT POCT GLUCOSE, INTERFACED Routine 07/03/2023 2:44 EDT AIRWAY CLEARANCE THERAPY Routine 07/03/2023 0:05 EDT NEBULIZER TX INTERMITTENT Routine 07/03/2023 0:05 EDT NEBULIZER TX INTERMITTENT Routine 07/03/2023 0:05 EDT SODIUM Routine 07/02/2023 23:40 EDT POCT GLUCOSE, INTERFACED Routine 07/02/2023 20:24 EDT SODIUM Routine 07/02/2023 17:47 EDT POCT GLUCOSE, INTERFACED Routine 07/02/2023 17:41 EDT POCT GLUCOSE, INTERFACED Routine 07/02/2023 13:12 EDT SODIUM Routine 07/02/2023 12:54 EDT ECG REPORT - SCANNED 07/02/2023 10:05 EDT POCT GLUCOSE, INTERFACED Routine 07/02/2023 7:54 EDT DIFFERENTIAL, AUTOMATED MANUAL Today 07/02/2023 7:42 EDT COMPLETE BLOOD COUNT AND DIFFERENTIAL Routine 07/02/2023 7:42 EDT PHOSPHORUS Routine 07/02/2023 7:42 EDT MAGNESIUM Routine 07/02/2023 7:42 EDT BASIC METABOLIC PANEL (BMP) Routine 07/02/2023 7:42 EDT AIRWAY CLEARANCE THERAPY Routine 07/02/2023 7:32 EDT AIRWAY CLEARANCE THERAPY Routine 07/02/2023 7:32 EDT AIRWAY CLEARANCE THERAPY Routine 07/02/2023 7:32 EDT AIRWAY CLEARANCE THERAPY Routine 07/02/2023 7:32 EDT NEBULIZER TX INTERMITTENT Routine 07/02/2023 7:32 EDT NEBULIZER TX INTERMITTENT Routine 07/02/2023 7:32 EDT NEBULIZER TX INTERMITTENT Routine 07/02/2023 7:32 EDT NEBULIZER TX INTERMITTENT Routine 07/02/2023 7:32 EDT SODIUM Routine 07/01/2023 [...] DIFFERENTIAL, AUTOMATED MANUAL Today 07/01/2023 2:29 EDT COMPLETE BLOOD COUNT AND DIFFERENTIAL Routine 07/01/2023 2:29 EDT PHOSPHORUS Routine 07/01/2023 2:29 EDT MAGNESIUM Routine 07/01/2023 2:29 EDT BASIC METABOLIC PANEL (BMP) Routine 07/01/2023 2:29 EDT SODIUM Routine 06/30/2023 23:47 EDT POCT GLUCOSE, INTERFACED Routine 06/30/2023 20:59 EDT SODIUM Routine 06/30/2023 17:51 EDT POCT GLUCOSE, INTERFACED Routine 06/30/2023 16:57 EDT XR CHEST PORTABLE 1 VIEW Routine 06/30/2023 13:33 EDT POCT GLUCOSE, INTERFACED Routine 06/30/2023 12:55 EDT SODIUM Routine 06/30/2023 12:12 EDT POCT GLUCOSE, INTERFACED Routine 06/30/2023 11:48 EDT COMPLETE BLOOD COUNT AND DIFFERENTIAL Routine 06/30/2023 8:04 EDT PHOSPHORUS Routine 06/30/2023 8:04 EDT MAGNESIUM Routine 06/30/2023 8:04 EDT BASIC METABOLIC PANEL (BMP) Routine 06/30/2023 8:04 EDT POCT GLUCOSE, INTERFACED Routine 06/30/2023 7:17 EDT SODIUM Routine 06/29/2023 23:37 EDT POCT GLUCOSE, INTERFACED Routine 06/29/2023 20:45 EDT DRY POWDERED OR METERED DOSE INHALER Routine 06/29/2023 19:36 EDT SODIUM Routine 06/29/2023 17:45 EDT POCT GLUCOSE, INTERFACED Routine 06/29/2023 17:03 EDT COMPLETE BLOOD COUNT AND DIFFERENTIAL Routine 06/29/2023 14:33 EDT SODIUM Routine 06/29/2023 14:33 EDT POCT GLUCOSE, INTERFACED Routine 06/29/2023 11:58 EDT PHOSPHORUS Routine 06/29/2023 9:15 EDT MAGNESIUM Routine 06/29/2023 9:15 EDT BASIC METABOLIC PANEL (BMP) Routine 06/29/2023 9:15 EDT POCT GLUCOSE, INTERFACED Routine 06/29/2023 8:35 EDT SODIUM Routine 06/29/2023 0:04 EDT POCT GLUCOSE, INTERFACED Routine 06/28/2023 20:46 EDT POCT GLUCOSE, INTERFACED Routine 06/28/2023 18:38 EDT SODIUM Routine 06/28/2023 18:10 EDT SODIUM Routine 06/28/2023 14:43 EDT POCT GLUCOSE, INTERFACED Routine 06/28/2023 14:13 EDT COMPLETE BLOOD COUNT AND DIFFERENTIAL Routine 06/28/2023 9:36 EDT PHOSPHORUS Routine 06/28/2023 9:36 EDT MAGNESIUM Routine 06/28/2023 9:36 EDT BASIC METABOLIC PANEL (BMP) Routine 06/28/2023 9:36 EDT POCT GLUCOSE, INTERFACED Routine 06/28/2023 7:33 EDT POCT GLUCOSE, INTERFACED Routine 06/28/2023 6:13 EDT EKG 12-LEAD STAT 06/28/2023 2:12 EDT POCT GLUCOSE, INTERFACED Routine 06/27/2023 23:46 EDT POCT GLUCOSE, INTERFACED Routine 06/27/2023 17:55 EDT ECG REPORT - SCANNED 06/27/2023 16:14 EDT POCT GLUCOSE, INTERFACED Routine 06/27/2023 12:47 EDT COMPLETE BLOOD COUNT AND DIFFERENTIAL Routine 06/27/2023 9:06 EDT PHOSPHORUS Routine 06/27/2023 9:06 EDT MAGNESIUM Routine 06/27/2023 9:06 EDT BASIC METABOLIC PANEL (BMP) Routine 06/27/2023 9:06 EDT POCT GLUCOSE, INTERFACED Routine 06/27/2023 8:16 EDT POCT GLUCOSE, INTERFACED Routine 06/27/2023 5:13 EDT POCT GLUCOSE, INTERFACED Routine 06/26/2023 23:29 EDT DEBRIDEMENT, OPEN WOUND, ADDITIONAL 20 SQ [...] PORTABLE 1 VIEW STAT 06/26/2023 6:46 EDT COMPLETE BLOOD COUNT AND DIFFERENTIAL Routine 06/26/2023 6:08 EDT PHOSPHORUS Routine 06/26/2023 6:08 EDT MAGNESIUM Routine 06/26/2023 6:08 EDT BASIC METABOLIC PANEL (BMP) Routine 06/26/2023 6:08 EDT POCT BLOOD GAS, EG6 I-STAT STAT 06/26/2023 0:37 EDT EKG 12-LEAD STAT 06/25/2023 23:32 EDT EKG 12-LEAD STAT 06/25/2023 23:20 EDT POCT GLUCOSE, INTERFACED Routine 06/25/2023 23:14 EDT POCT BLOOD GAS, EG6 I-STAT Routine 06/25/2023 23:11 EDT XR CHEST PORTABLE 1 VIEW Routine 06/25/2023 22:40 EDT SLIDE REQUEST STAT 06/25/2023 22:38 EDT TROPONIN I STAT 06/25/2023 22:38 EDT COMPLETE BLOOD COUNT STAT 06/25/2023 22:38 EDT BASIC METABOLIC PANEL (BMP) STAT 06/25/2023 22:38 EDT POCT GLUCOSE, INTERFACED Routine 06/25/2023 17:07 EDT POCT GLUCOSE, INTERFACED Routine 06/25/2023 12:05 EDT COMPLETE BLOOD COUNT AND DIFFERENTIAL Routine 06/25/2023 8:33 EDT PHOSPHORUS Routine 06/25/2023 8:33 EDT MAGNESIUM Routine 06/25/2023 8:33 EDT BASIC METABOLIC PANEL (BMP) Routine 06/25/2023 8:33 EDT POCT GLUCOSE, INTERFACED Routine 06/25/2023 5:15 EDT POCT GLUCOSE, INTERFACED Routine 06/24/2023 23:25 EDT POCT GLUCOSE, INTERFACED Routine 06/24/2023 17:57 EDT POCT GLUCOSE, INTERFACED Routine 06/24/2023 12:45 EDT EKG 12-LEAD STAT 06/24/2023 5:20 EDT TROPONIN I STAT 06/24/2023 5:07 EDT COMPLETE BLOOD COUNT AND DIFFERENTIAL Routine 06/24/2023 5:07 EDT POCT GLUCOSE, INTERFACED Routine 06/24/2023 5:07 EDT PHOSPHORUS Routine 06/24/2023 5:07 EDT MAGNESIUM Routine 06/24/2023 5:07 EDT BASIC METABOLIC PANEL (BMP) Routine 06/24/2023 5:07 EDT ECG REPORT - SCANNED 06/24/2023 3:47 EDT ECG REPORT - SCANNED 06/24/2023 3:47 EDT POCT GLUCOSE, INTERFACED Routine 06/24/2023 0:15 EDT POCT GLUCOSE, INTERFACED Routine 06/23/2023 17:44 EDT POCT GLUCOSE, INTERFACED Routine 06/23/2023 11:56 EDT POCT GLUCOSE, INTERFACED Routine 06/23/2023 5:52 EDT COMPLETE BLOOD COUNT AND DIFFERENTIAL Routine 06/23/2023 5:44 EDT PHOSPHORUS Routine 06/23/2023 5:44 EDT MAGNESIUM Routine 06/23/2023 5:44 EDT BASIC METABOLIC PANEL (BMP) Routine 06/23/2023 5:44 EDT POCT GLUCOSE, INTERFACED Routine 06/22/2023 23:48 EDT POCT GLUCOSE, INTERFACED Routine 06/22/2023 17:05 EDT POCT GLUCOSE, INTERFACED Routine 06/22/2023 11:50 EDT POCT GLUCOSE, INTERFACED Routine 06/22/2023 9:12 EDT TROPONIN I Routine 06/22/2023 8:04 EDT POCT GLUCOSE, INTERFACED Routine 06/22/2023 8:03 EDT EKG 12-LEAD Routine 06/22/2023 7:49 EDT POCT GLUCOSE, INTERFACED Routine 06/22/2023 7:30 EDT COMPLETE BLOOD COUNT AND DIFFERENTIAL Routine 06/22/2023 6:04 EDT PHOSPHORUS Routine 06/22/2023 6:04 EDT MAGNESIUM Routine 06/22/2023 6:04 EDT BASIC METABOLIC PANEL (BMP) Routine 06/22/2023 6:04 EDT POCT GLUCOSE, INTERFACED Routine 06/22/2023 5:36 EDT POCT GLUCOSE, INTERFACED Routine 06/22/2023 0:20 EDT POCT GLUCOSE, INTERFACED Routine 06/21/2023 16:42 EDT POCT GLUCOSE, INTERFACED Routine 06/21/2023 11:30 EDT POCT GLUCOSE, INTERFACED Routine 06/21/2023 9:41 EDT POCT GLUCOSE, INTERFACED Routine 06/21/2023 5:09 EDT DIFFERENTIAL, AUTOMATED MANUAL Today 06/21/2023 5:07 EDT COMPLETE BLOOD COUNT AND DIFFERENTIAL Routine 06/21/2023 5:07 EDT PHOSPHORUS Routine 06/21/2023 5:07 EDT MAGNESIUM Routine 06/21/2023 5:07 EDT BASIC METABOLIC PANEL (BMP) Routine 06/21/2023 5:07 EDT POCT GLUCOSE, INTERFACED Routine 06/20/2023 23:55 EDT POCT GLUCOSE, INTERFACED Routine 06/20/2023 18:51 EDT XR CHEST PORTABLE 1 VIEW Routine 06/20/2023 15:03 EDT XR FEEDING TUBE PLACEMENT Routine 06/20/2023 14:28 EDT POCT GLUCOSE, INTERFACED Routine 06/20/2023 12:23 EDT ECG REPORT - SCANNED 06/20/2023 9:33 EDT DIFFERENTIAL, AUTOMATED MANUAL Today 06/20/2023 5:01 EDT COMPLETE BLOOD COUNT AND DIFFERENTIAL Routine 06/20/2023 5:01 EDT PHOSPHORUS Routine 06/20/2023 5:01 EDT MAGNESIUM Routine 06/20/2023 5:01 EDT BASIC METABOLIC PANEL (BMP) Routine 06/20/2023 5:01 EDT POCT GLUCOSE, INTERFACED Routine 06/20/2023 5:00 EDT POCT GLUCOSE, INTERFACED Routine 06/20/2023 2:03 EDT POCT GLUCOSE, INTERFACED Routine 06/19/2023 18:06 EDT BASIC METABOLIC PANEL (BMP) Routine 06/19/2023 12:28 [...] COUNT AND DIFFERENTIAL Routine 06/19/2023 5:04 EDT PHOSPHORUS Routine 06/19/2023 5:03 EDT MAGNESIUM Routine 06/19/2023 5:03 EDT BASIC METABOLIC PANEL (BMP) Routine 06/19/2023 5:03 EDT POCT BLOOD GAS, [...] DIFFERENTIAL, AUTOMATED MANUAL Today 06/18/2023 4:32 EDT COMPLETE BLOOD COUNT AND DIFFERENTIAL Routine 06/18/2023 4:32 EDT TRIGLYCERIDE Routine 06/18/2023 4:32 EDT PHOSPHORUS Routine 06/18/2023 4:32 EDT MAGNESIUM Routine 06/18/2023 4:32 EDT BASIC METABOLIC PANEL [...] POCT GLUCOSE, INTERFACED Routine 06/17/2023 17:33 EDT ECG REPORT - SCANNED 06/17/2023 12:52 EDT POCT GLUCOSE, INTERFACED Routine 06/17/2023 11:31 EDT BASIC METABOLIC PANEL (BMP) Routine 06/17/2023 11:31 EDT TRANSFUSE RED BLOOD CELLS Routine 06/17/2023 8:34 EDT CALCIUM, IONIZED Routine 06/17/2023 8:06 EDT PREPARE RED BLOOD CELLS Routine 06/17/2023 7:40 EDT POCT GLUCOSE, INTERFACED Routine 06/17/2023 6:09 EDT DIFFERENTIAL, AUTOMATED MANUAL Today 06/17/2023 4:06 EDT COMPLETE BLOOD COUNT AND DIFFERENTIAL Routine 06/17/2023 4:06 EDT POCT BLOOD GAS, EG6 I-STAT Routine 06/17/2023 4:06 EDT TRIGLYCERIDE Add-On 06/17/2023 4:06 EDT PHOSPHORUS Routine 06/17/2023 4:06 EDT MAGNESIUM Routine 06/17/2023 4:06 EDT BASIC METABOLIC PANEL [...] PORTABLE LINE PLACEMENT Routine 06/16/2023 8:57 EDT HOLD SST Routine 06/16/2023 8:20 EDT HOLD BLUE TOP Routine 06/16/2023 8:20 EDT LYME AB Add-On 06/16/2023 8:20 EDT POCT BLOOD GAS, EG6 I-STAT Routine 06/16/2023 8:16 EDT CALCIUM, IONIZED STAT 06/16/2023 8:05 EDT SLIDE REQUEST STAT 06/16/2023 8:05 EDT LACTIC ACID STAT 06/16/2023 8:05 EDT COMPLETE BLOOD COUNT STAT 06/16/2023 8:05 EDT PHOSPHORUS STAT 06/16/2023 8:05 EDT BASIC METABOLIC PANEL [...] GAS, EG6 I-STAT Routine 06/15/2023 5:25 EDT DIFFERENTIAL, AUTOMATED MANUAL Today 06/15/2023 5:10 EDT LACTIC ACID STAT 06/15/2023 5:10 EDT COMPLETE BLOOD COUNT AND DIFFERENTIAL STAT 06/15/2023 5:10 EDT POCT GLUCOSE, INTERFACED Routine 06/15/2023 5:10 EDT PHOSPHORUS STAT 06/15/2023 5:10 EDT MAGNESIUM STAT 06/15/2023 5:10 EDT VANCOMYCIN, RANDOM Routine 06/15/2023 5: 10 EDT BASIC METABOLIC PANEL (BMP) STAT 06/15/2023 5:10 EDT POCT GLUCOSE, INTERFACED Routine 06/15/2023 4:04 EDT POCT GLUCOSE, INTERFACED Routine 06/15/2023 3:35 EDT EKG 12-LEAD Routine 06/15/2023 1:38 EDT XR CHEST PORTABLE LINE PLACEMENT STAT 06/15/2023 1:15 EDT PTT Routine 06/15/2023 1:10 EDT PROTIME Routine 06/15/2023 1:10 EDT POCT GLUCOSE, INTERFACED Routine 06/15/2023 1:07 EDT DIFFERENTIAL, AUTOMATED MANUAL Today 06/15/2023 1:01 EDT LACTIC ACID Routine 06/15/2023 1:01 EDT POCT BLOOD GAS, CG8 I-STAT Routine 06/15/2023 1:01 EDT COMPLETE BLOOD COUNT AND DIFFERENTIAL Routine 06/15/2023 1:01 EDT BASIC METABOLIC PANEL (BMP) STAT 06/15/2023 1:01 EDT TRANSFUSE RED BLOOD CELLS Routine 06/14/2023 22:57 EDT ANAEROBE CULTURE/SMEAR(INC. AEROBES), OTHER Routine 06/14/2023 22:51 EDT FUNGUS CULTURE/SMEAR Routine 06/14/2023 22:51 EDT TRANSFUSE RED BLOOD CELLS Routine 06/14/2023 22:25 EDT POCT GLUCOSE, INTERFACED Routine 06/14/2023 22:00 EDT TRANSFUSE RED BLOOD CELLS Routine 06/14/2023 20:19 [...] DIFFERENTIAL, AUTOMATED MANUAL Today 06/14/2023 4:55 EDT COMPLETE BLOOD COUNT AND DIFFERENTIAL STAT 06/14/2023 4:55 EDT HEMOGLOBIN A1C Routine 06/14/2023 4:55 EDT BASIC METABOLIC PANEL (BMP) Routine 06/14/2023 4:55 EDT MRSA PCR Routine 06/14/2023 1:23 EDT VANCOMYCIN, RANDOM Add-On 06/14/2023 1: 22 EDT BASIC METABOLIC PANEL (BMP) STAT 06/14/2023 1:22 EDT POCT GLUCOSE, INTERFACED Routine 06/14/2023 0:58 EDT documented in this encounter Results * ECG REPORT - SCANNED (08/27/2023 9:57 EDT) 08/27/2023 9:57 EDT Scan 2 Nursing Coordinator PROCEDURE/MINOR VI GICAL ORDERABLES * ECG REPORT - SCANNED (08/26/2023 11:11 EDT) 08/26/2023 11:1 1 EDT Scan 2 Nursing Coordinator PROCEDURE/MINOR VI GICAL ORDERABLES * (ABNORMAL) POCT GLUCOSE, INTERFACED (08/22/2023 7:34 EDT) Glucose, POC 148(H) 70 - 100 mg/dL 08/22/2023 7:35 EDT [facility] HN LAB POC COMMENT (GLUCOSE) Test Performed by Nursing Services 08/22/2023 7:35 EDT [facility] Blood CAPILLARY BLOOD / Unknown 08/22/2023 7:34 EDT 08/22/2023 7:35 EDT Aura Howell NP POINT OF CARE TEST O RDERABLES [facility] [address], [place] [phone] * (ABNORMAL) COMPLETE BLOOD COUNT AND DIFFERENTIAL (08/22/2023 5:43 EDT) WBC 9.52 4.00 - 12.40 K/cmm 08/22/2023 6:37 T [facility] RBC 3.19(L) 3.86 - 5.04 M/cmm 08/22/2023 6:37 [facility] Hemoglobin 8.8(L) 11.6 - 15.2 g/dL 08/22/2023 6:37 [facility] HCT 26.2(L) 34.9 - 44.4 % 08/22/2023 6:37 [facility] MCV 82 81 - 98 fL 08/22/2023 6:37 [facility] MCH 27.6 26.7 - 33.3 pg 08/22/2023 6:37 [facility] MCHC 33.6 32.1 - 35.9 g/dL 08/22/2023 6:37 [facility] RDW-CV 14.0 <14.7 % 08/22/2023 6:37 [facility] RDW-SD 41.9 <50.4 fl 08/22/2023 6:37 [facility] PLT 317 141 - 377 K/cmm 08/22/2023 6:37 [facility] MPV 10.7 9.5 - 12.7 fL 08/22/2023 6:37 [facility] % Neutrophils 68.8 % 08/22/2023 6:37 [facility] % Lymphocytes 19.1 % 08/22/2023 6:37 [facility] % Monocytes 8.2 % 08/22/2023 6:37 [facility] % Eosinophils 2.3 % 08/22/2023 6:37 [facility] % Basophils 0.4 % 08/22/2023 6:37 [facility] % Immature Grans 1.2 % 08/22/19 6:37 [facility] Absolute Neutrophils 6.55 2.20 - 8.85 K/cmm 08/22/2023 6:37 [facility] Absolute Lymphocytes 1.82 1.09 - 3.30 K/cmm 08/22/2023 6:37 [facility] Absolute Monocytes 0.78 0.10 - 0.80 K/cmm 08/22/2023 6:37 [facility] Absolute Eosinophils 0.22 0.03 - 0.61 K/cmm 08/22/2023 6:37 [facility] ABS Basophils 0.04 0.01 - 0.11 K/cmm 08/22/2023 6:37 [facility] Absolute Immature Grans 0.11(H) 0.00 - 0.06 K/cmm 08/22/2023 6:37 [facility] Type of Differential: Auto 08/22/2023 6:37 [facility] Blood VENOUS BLOOD / Unknown Venipuncture / Unknown 08/22/2023 5:43 EDT 08/22/2023 6:29 EDT Joan Menon MD PACKAGES & DNA PROBE ORDERABLES [facility] [address] [place] [address] * (ABNORMAL) BASIC METABOLIC PANEL (BMP) (08/22/2023 5:43 EDT) Sodium 134(L) 136 - 145 mmol/L 08/22/2023 7:02 [facility] Potassium 4.4 3.5 - 5.0 mmol/L 08/22/2023 7:02 [facility] Chloride 99 96 - 110 mmol/L 08/22/2023 7:02 [facility] CO2 Total 22 22 - 32 mmol/L 08/22/2023 7:02 [facility] Anion Gap 13 5 - 14 mmol/L 08/22/2023 7:02 [facility] Glucose 164(H) 70 - 99 mg/dl 08/22/2023 7:02 [facility] Calcium 9.9 8.5 - 10.5 mg/dL 08/22/2023 7:02 [facility] BUN 30(H) 10 - 26 mg/dL 08/22/2023 7:02 [facility] Creatinine 0.74 0.52 - 1.04 mg/dL 08/22/2023 7:02 [facility] eGFR 97 >60 mL/min/1.73 m2 08/22/2023 7:02 [facility] Blood VENOUS BLOOD / Unknown Venipuncture / Unknown 08/22/2023 5:43 EDT 08/22/2023 6:30 EDT Joan Menon MD CHEMISTRY & BLOOD GA S ORDERABLES [facility] [address] [place] [address] * (ABNORMAL) POCT GLUCOSE, INTERFACED (08/21/2023 20:38 EDT) Glucose, POC 124(H) 70 - 100 mg/dL 08/21/2023 20:39 EDT [facility] HN LAB POC COMMENT (GLUCOSE) Test Performed by Nursing Services 08/21/2023 20:39 EDT [facility] Blood CAPILLARY BLOOD / Unknown 08/21/2023 20:38 EDT 08/21/2023 20:39 EDT Ayla Lynda PALS SPECIALIST POINT OF CARE TEST O RDERABLES [facility] [address], [place] [phone] * POCT GLUCOSE, INTERFACED (08/21/2023 17:29 EDT) Glucose, POC 80 70 - 100 mg/dL 08/21/2023 17:31 EDT [facility] HN LAB POC COMMENT (GLUCOSE) Test Performed by Nursing Services 08/21/2023 17:31 EDT [facility] Blood CAPILLARY BLOOD / Unknown 08/21/2023 17:29 EDT 08/21/2023 17:31 EDT Aura Howell PALS SPECIALIST POINT OF CARE TEST O RDERABLES Performing Organization Address [facility]/ZIP Co de Phone Number [facility] [address], [place] [phone] * (ABNORMAL) POCT GLUCOSE, INTERFACED (08/21/2023 12:01 EDT) Glucose, POC 179(H) 70 - 100 mg/dL 08/21/2023 12:02 EDT [facility] HN LAB POC COMMENT (GLUCOSE) Test Performed by Nursing Services 08/21/2023 12:02 EDT [facility] Blood CAPILLARY BLOOD / Unknown 08/21/2023 12:01 EDT 08/21/2023 12:02 EDT Aura Howell PALS SPECIALIST POINT OF CARE TEST O RDERABLES [facility] [address], [place] [phone] * (ABNORMAL) POCT GLUCOSE, INTERFACED (08/21/2023 7:33 EDT) Glucose, POC 140(H) 70 - 100 mg/dL 08/21/2023 7:35 EDT [facility] HN LAB POC COMMENT (GLUCOSE) Test Performed by Nursing Services 08/21/2023 7:35 EDT [facility] Blood CAPILLARY BLOOD / Unknown 08/21/2023 7:33 EDT 08/21/2023 7:34 EDT Aura Altman Lynda PALS SPECIALIST POINT OF CARE TEST O RDERABLES Performing Organization Address [facility]/ZIP Co de Phone Number [facility] [address] [place] [address] * (ABNORMAL) POCT GLUCOSE, INTERFACED (08/20/2023 20:55 EDT) Glucose, POC 147(H) 70 - 100 mg/dL 08/20/2023 20:56 EDT [facility] HN LAB POC COMMENT (GLUCOSE) Test Performed by Nursing Services 08/20/2023 20:56 EDT [facility] Blood CAPILLARY BLOOD / Unknown 08/20/2023 20:55 EDT 08/20/2023 20:56 EDT Aura Howell PALS SPECIALIST POINT OF CARE TEST O RDERABLES Performing Organization Address [facility] Co de Phone Number [facility] [address] [place] [address] * (ABNORMAL) POCT GLUCOSE, INTERFACED (08/20/2023 18:19 EDT) Glucose, POC 145(H) 70 - 100 mg/dL 08/20/2023 18:20 EDT [facility] HN LAB POC COMMENT (GLUCOSE) Test Performed by Nursing Services 08/20/2023 18:20 EDT [facility] Blood CAPILLARY BLOOD / Unknown 08/20/2023 18:19 EDT 08/20/2023 18:20 EDT Aura Howell PALS SPECIALIST POINT OF CARE TEST O RDERABLES Performing Organization Address [facility]/ZIP Co de Phone Number [facility] [address] [place] [address] * (ABNORMAL) POCT GLUCOSE, INTERFACED (08/20/2023 12:06 EDT) Glucose, POC 114(H) 70 - 100 mg/dL 08/20/2023 12:07 EDT [facility] HN LAB POC COMMENT (GLUCOSE) Test Performed by Nursing Services 08/20/2023 12:07 EDT [facility] Blood CAPILLARY BLOOD / Unknown 08/20/2023 12:06 EDT 08/20/2023 12:07 EDT Aura Howell PALS SPECIALIST POINT OF CARE TEST O RDERABLES Performing Organization Address [facility] Co de Phone Number [facility] [address] [place] [address] * (ABNORMAL) POCT GLUCOSE, INTERFACED (08/20/2023 7:45 EDT) Glucose, POC 139(H) 70 - 100 mg/dL 08/20/2023 7:47 EDT [facility] HN LAB POC COMMENT (GLUCOSE) Test Performed by Nursing Services 08/20/2023 7:47 EDT [facility] Blood CAPILLARY BLOOD / Unknown 08/20/2023 7:45 EDT 08/20/2023 7:47 EDT Aura Howell PALS SPECIALIST POINT OF CARE TEST O RDERABLES Performing Organization Address City/[facility]/ZIP Co de Phone Number [facility] [address] [place] [id number] * POCT GLUCOSE, INTERFACED (08/19/2023 21:41 EDT) Glucose, POC 85 70 - 100 mg/dL 08/19/2023 21:55 EDT [facility] HN LAB POC COMMENT (GLUCOSE) Test Performed by Nursing Services 08/19/2023 21:55 EDT [facility] Blood CAPILLARY BLOOD / Unknown 08/19/2023 21:41 EDT 08/19/2023 21:55 EDT Aura Howell PALS SPECIALIST POINT OF CARE TEST O RDERABLES Performing Organization Address [facility] Co de Phone Number [facility] [address], [place] [id number] * (ABNORMAL) POCT GLUCOSE, INTERFACED (08/19/2023 11:26 EDT) Glucose, POC 130(H) 70 - 100 mg/dL 08/19/2023 11:28 EDT [facility] HN LAB POC COMMENT (GLUCOSE) Test Performed by Nursing Services 08/19/2023 11:28 EDT [facility] Blood CAPILLARY BLOOD / Unknown 08/19/2023 11:26 EDT 08/19/2023 11:28 EDT Aura Howell PALS SPECIALIST POINT OF CARE TEST O RDERABLES Performing Organization Address [facility] de Phone Number [facility] [address] [place] [address] * (ABNORMAL) POCT GLUCOSE, INTERFACED (08/19/2023 7:35 EDT) Glucose, POC 139(H) 70 - 100 mg/dL 08/19/2023 7:39 EDT [facility] HN LAB POC COMMENT (GLUCOSE) Test Performed by Nursing Services 08/19/2023 7:39 EDT [facility] Blood CAPILLARY BLOOD / Unknown 08/19/2023 7:35 EDT 08/19/2023 7:39 EDT Aura Howell PALS SPECIALIST POINT OF CARE TEST O RDERABLES Performing Organization Address [facility]/[place] [facility] Co de Phone Number [facility] [address] [place] [address] * (ABNORMAL) COMPLETE BLOOD COUNT AND DIFFERENTIAL (08/19/2023 7:34 EDT) WBC 7.82 4.00 - 12.40 K/cmm 08/19/2023 8:01 [facility] RBC 3.45(L) 3.86 - 5.04 M/cmm 08/19/2023 8:01 [facility] Hemoglobin 9.6(L) 11.6 - 15.2 g/dL 08/19/2023 8:01 [facility] HCT 28.6(L) 34.9 - 44.4 % 08/19/2023 8:01 [facility] MCV 83 81 - 98 fL 08/19/2023 8:01 [facility] MCH 27.8 26.7 - 33.3 pg 08/19/2023 8:01 [facility] MCHC 33.6 32.1 - 35.9 g/dL 08/19/2023 8:01 [facility] RDW-CV 14.0 <14.7 % 08/19/2023 8:01 [facility] RDW-SD 42.2 <50.4 fl 08/19/2023 8:01 [facility] PLT 325 141 - 377 K/cmm 08/19/2023 8:01 [facility] MPV 10.7 9.5 - 12.7 fL 08/19/2023 8:01 [facility] % Neutrophils 59.5 % 08/19/2023 8:01 [facility] % Lymphocytes 28.4 % 08/19/2023 8:01 [facility] % Monocytes 7.5 % 08/19/2023 8:01 [facility] % Eosinophils 3.2 % 08/19/2023 8:01 [facility] % Basophils 0.5 % 08/19/2023 8:01 [facility] % Immature Grans 0.9 % 08/19/19 8:01 [facility] Absolute Neutrophils 4.65 2.20 - 8.85 K/cmm 08/19/2023 8:01 [facility] Absolute Lymphocytes 2.22 1.09 - 3.30 K/cmm 08/19/2023 8:01 [facility] Absolute Monocytes 0.59 0.10 - 0.80 K/cmm 08/19/2023 8:01 [facility] Absolute Eosinophils 0.25 0.03 - 0.61 K/cmm 08/19/2023 8:01 [facility] ABS Basophils 0.04 0.01 - 0.11 K/cm 08/19/2023 8:01 [facility] Absolute Immature Grans 0.07(H) 0.00 - 0.06 K/cm 08/19/2023 8:01 [facility] Type of Differential: Auto 08/19/2023 8:01 [facility] Blood VENOUS BLOOD / Unknown Venipuncture / Unknown 08/19/2023 7:34 EDT 08/19/2023 7:49 EDT Joan Menon MD PACKAGES & DNA PROBE ORDERABLES [facility] [address] [place] [address] * (ABNORMAL) BASIC METABOLIC PANEL (BMP) (08/19/2023 7:34 EDT) Sodium 136 136 - 145 mmol/L 08/19/2023 8:23 [facility] Potassium 4.5 3.5 - 5.0 mmol/L 08/19/2023 8:23 [facility] Chloride 101 96 - 110 mmol/L 08/19/2023 8:23 [facility] CO2 Total 22 22 - 32 mmol/L 08/19/2023 8:23 [facility] Anion Gap 13 5 - 14 mmol/L 08/19/2023 8:23 [facility] Glucose 141(H) 70 - 99 mg/dl 08/19/2023 8:23 [facility] Calcium 9.9 8.5 - 10.5 mg/dL 08/19/2023 8:23 EDT [facility] BUN 26 10 - 26 mg/dL 08/19/2023 8:23 EDT [facility] Creatinine 0.56 0.52 - 1.04 mg/dL 08/19/2023 8:23 EDT [facility] eGFR 109 >60 mL/min/1.73 m2 08/19/2023 8:23 EDT [facility] Blood VENOUS BLOOD / Unknown Venipuncture / Unknown 08/19/2023 7:34 EDT 08/19/2023 7:55 EDT Joan Menon MD CHEMISTRY & BLOOD GA S ORDERABLES Performing Organization Address [facility] Co de Phone Number [facility] [address] [place] [address] * (ABNORMAL) POCT GLUCOSE, INTERFACED (08/18/2023 20:51 EDT) Glucose, POC 142(H) 70 - 100 mg/dL 08/18/2023 20:53 EDT [facility] HN LAB POC COMMENT (GLUCOSE) Test Performed by Nursing Services 08/18/2023 20:53 EDT [facility] Blood CAPILLARY BLOOD / Unknown 08/18/2023 20:51 EDT 08/18/2023 20:53 EDT Aura Howell NP POINT OF CARE TEST O RDERABLES Performing Organization Address [facility] Co de Phone Number [facility] [address] [place] [address] * POCT GLUCOSE, INTERFACED (08/18/2023 17:35 EDT) Glucose, POC 97 70 - 100 mg/dL 08/18/2023 17:36 EDT [facility] HN LAB POC COMMENT (GLUCOSE) Test Performed by Nursing Services 08/18/2023 17:36 EDT [facility] Blood CAPILLARY BLOOD / Unknown 08/18/2023 17:35 EDT 08/18/2023 17:36 EDT Ayla Lynda PALS SPECIALIST POINT OF CARE TEST O RDERABLES Performing Organization Address [facility] Co de Phone Number [facility] [address] [place] [address] * (ABNORMAL) POCT GLUCOSE, INTERFACED (08/18/2023 7:28 EDT) Glucose, POC 151(H) 70 - 100 mg/dL 08/18/2023 7:29 EDT [facility] HN LAB POC COMMENT (GLUCOSE) Test Performed by Nursing Services 08/18/2023 7:29 EDT [facility] Blood CAPILLARY BLOOD / Unknown 08/18/2023 7:28 EDT 08/18/2023 7:29 EDT Aura Howell PALS SPECIALIST POINT OF CARE TEST O RDERAMICHAEL Performing Organization Address [facility] de Phone Number [facility] [address] [place] [address] * (ABNORMAL) POCT GLUCOSE, INTERFACED (08/17/2023 21:28 EDT) Glucose, POC 134(H) 70 - 100 mg/dL 08/17/2023 21:29 EDT [facility] HN LAB POC COMMENT (GLUCOSE) Test Performed by Nursing Services 08/17/2023 21:29 EDT [facility] Blood CAPILLARY BLOOD / Unknown 08/17/2023 21:28 EDT 08/17/2023 21:29 EDT Ayla Lynda PALS SPECIALIST POINT OF CARE TEST O RDERABLES Performing Organization Address [facility] Co de Phone Number [facility] [address] [place] [address] * (ABNORMAL) POCT GLUCOSE, INTERFACED (08/17/2023 17:32 EDT) Glucose, POC 115(H) 70 - 100 mg/dL 08/17/2023 17:34 EDT [facility] HN LAB POC COMMENT (GLUCOSE) Test Performed by Nursing Services 08/17/2023 17:34 EDT [facility] Blood CAPILLARY BLOOD / Unknown 08/17/2023 17:32 EDT 08/17/2023 17:34 EDT Aura Howell PALS SPECIALIST POINT OF CARE TEST O RDERABLES Performing Organization Address [facility]/ZIP Co de Phone Number [facility] [address] [place] [address] * (ABNORMAL) POCT GLUCOSE, INTERFACED (08/17/2023 11:35 EDT) Glucose, POC 156(H) 70 - 100 mg/dL 08/17/2023 11:36 EDT [facility] HN LAB POC COMMENT (GLUCOSE) Test Performed by Nursing Services 08/17/2023 11:36 EDT [facility] Blood CAPILLARY BLOOD / Unknown 08/17/2023 11:35 EDT 08/17/2023 11:36 EDT Aura Howell PALS SPECIALIST POINT OF CARE TEST O RDERAMICHAEL Performing Organization Address [facility] Co de Phone Number [facility] [address] [place] [address] * (ABNORMAL) POCT GLUCOSE, INTERFACED (08/17/2023 7:02 EDT) Glucose, POC 150(H) 70 - 100 mg/dL 08/17/2023 7:03 EDT [facility] HN LAB POC COMMENT (GLUCOSE) Test Performed by Nursing Services 08/17/2023 7:03 EDT [facility] Blood CAPILLARY BLOOD / Unknown 08/17/2023 7:02 EDT 08/17/2023 7:03 EDT Aura Howell PALS SPECIALIST POINT OF CARE TEST O RDERABLES Performing Organization Address [facility]/ZIP Co de Phone Number [facility] [address], [place] [phone] * (ABNORMAL) POCT GLUCOSE, INTERFACED (08/16/2023 21:59 EDT) Glucose, POC 177(H) 70 - 100 mg/dL 08/16/2023 22:00 EDT [facility] HN LAB POC COMMENT (GLUCOSE) Test Performed by Nursing Services 08/16/2023 22:00 EDT [facility] Blood CAPILLARY BLOOD / Unknown 08/16/2023 21:59 EDT 08/16/2023 22:00 EDT Aura Howell NP POINT OF CARE TEST O RDERABLES Performing Organization Address [facility] Co de Phone Number [facility] [address], [place] [phone] * (ABNORMAL) POCT GLUCOSE, INTERFACED (08/16/2023 17:48 EDT) Glucose, POC 143(H) 70 - 100 mg/dL 08/16/2023 17:49 EDT [facility] HN LAB POC COMMENT (GLUCOSE) Test Performed by Nursing Services 08/16/2023 17:49 EDT [facility] Blood CAPILLARY BLOOD / Unknown 08/16/2023 17:48 EDT 08/16/2023 17:49 EDT Moo Monique MD POINT OF CARE TEST ORDERABLES Performing Organization Address [facility]/ZIP Co de Phone Number [facility] [address], [place] [phone] * (ABNORMAL) POCT GLUCOSE, INTERFACED (08/16/2023 17:08 EDT) Glucose, POC 104(H) 70 - 100 mg/dL 08/16/2023 17:13 EDT [facility] HN LAB POC COMMENT (GLUCOSE) Test Performed by Nursing Services 08/16/2023 17:13 EDT [facility] Blood CAPILLARY BLOOD / Unknown 08/16/2023 17:08 EDT 08/16/2023 17:13 EDT Aura Howell PALS SPECIALIST POINT OF CARE TEST O RDERABLES Performing Organization Address City/[facility]/ZIP Co de Phone Number [facility] [address], [place] [phone] * (ABNORMAL) POCT GLUCOSE, INTERFACED (08/16/2023 11:59 EDT) Glucose, POC 215(H) 70 - 100 mg/dL 08/16/2023 12:00 EDT [facility] HN LAB POC COMMENT (GLUCOSE) Test Performed by Nursing Services 08/16/2023 12:00 EDT [facility] Blood CAPILLARY BLOOD / Unknown 08/16/2023 11:59 EDT 08/16/2023 12:00 EDT Aura Howell PALS SPECIALIST POINT OF CARE TEST O RDERABLES Performing Organization Address [facility] Co de Phone Number [facility] [address] [place] [address] * (ABNORMAL) POCT GLUCOSE, INTERFACED (08/16/2023 8:18 EDT) Glucose, POC 140(H) 70 - 100 mg/dL 08/16/2023 8:19 EDT [facility] HN LAB POC COMMENT (GLUCOSE) Test Performed by Nursing Services 08/16/2023 8:19 EDT [facility] Blood CAPILLARY BLOOD / Unknown 08/16/2023 8:18 EDT 08/16/2023 8:19 EDT Aura Howell PALS SPECIALIST POINT OF CARE TEST O RDERABLES Performing Organization Address City/[facility]/ZIP Co de Phone Number [facility] [address] [place] [address] * (ABNORMAL) POCT GLUCOSE, INTERFACED (08/15/2023 21:20 EDT) Glucose, POC 130(H) 70 - 100 mg/dL 08/15/2023 21:21 EDT [facility] HN LAB POC COMMENT (GLUCOSE) Test Performed by Nursing Services 08/15/2023 21:21 EDT [facility] Blood CAPILLARY BLOOD / Unknown 08/15/2023 21:20 EDT 08/15/2023 21:21 EDT Aura Howell PALS SPECIALIST POINT OF CARE TEST O RDERABLES Performing Organization Address [facility] Co de Phone Number [facility] [address], [place] [phone] * (ABNORMAL) POCT GLUCOSE, INTERFACED (08/15/2023 18:06 EDT) Glucose, POC 153(H) 70 - 100 mg/dL 08/15/2023 18:08 EDT [facility] HN LAB POC COMMENT (GLUCOSE) Test Performed by Nursing Services 08/15/2023 18:08 EDT [facility] Blood CAPILLARY BLOOD / Unknown 08/15/2023 18:06 EDT 08/15/2023 18:08 EDT Aura Howell PALS SPECIALIST POINT OF CARE TEST O RDERABLES Performing Organization Address [facility]/ZIP Co de Phone Number [facility] [address], [place] [address] * (ABNORMAL) POCT GLUCOSE, INTERFACED (08/15/2023 11:38 EDT) Glucose, POC 107(H) 70 - 100 mg/dL 08/15/2023 11:39 EDT [facility] HN LAB POC COMMENT (GLUCOSE) Test Performed by Nursing Services 08/15/2023 11:39 EDT [facility] Blood CAPILLARY BLOOD / Unknown 08/15/2023 11:38 EDT 08/15/2023 11:38 EDT Aura Howell PALS SPECIALIST POINT OF CARE TEST O NANCY Performing Organization Address [facility] de Phone Number [facility] [address] [place] [address] * (ABNORMAL) POCT GLUCOSE, INTERFACED (08/15/2023 8:05 EDT) Glucose, POC 166(H) 70 - 100 mg/dL 08/15/2023 8:06 EDT [facility] HN LAB POC COMMENT (GLUCOSE) Test Performed by Nursing Services 08/15/2023 8:06 EDT [facility] Blood CAPILLARY BLOOD / Unknown 08/15/2023 8:05 EDT 08/15/2023 8:06 EDT Aura Howell PALS SPECIALIST POINT OF CARE TEST O NANCY Performing Organization Address [facility] de Phone Number [facility] [address], [place] [phone] * (ABNORMAL) COMPLETE BLOOD COUNT AND DIFFERENTIAL (08/15/2023 7:50 EDT) [facility] WBC 7.27 4.00 - 12.40 K/cmm 08/15/2023 8:10 T [facility] RBC 3.14(L) 3.86 - 5.04 M/cmm 08/15/2023 8:10 [facility] Hemoglobin 8.8(L) 11.6 - 15.2 g/dL 08/15/2023 8:10 T [facility] HCT 26.1(L) 34.9 - 44.4 % 08/15/2023 8:10 [facility] MCV 83 81 - 98 fL 08/15/2023 8:10 [facility] MCH 28.0 26.7 - 33.3 pg 08/15/2023 8:10 [facility] MCHC 33.7 32.1 - 35.9 g/dL 08/15/2023 8:10 [facility] RDW-CV 14.3 <14.7 % 08/15/2023 8:10 [facility] RDW-SD 43.1 <50.4 fl 08/15/2023 8:10 [facility] PLT 281 141 - 377 K/cmm 08/15/2023 8:10 [facility] MPV 10.4 9.5 - 12.7 fL 08/15/2023 8:10 [facility] % Neutrophils 59.0 % 08/15/2023 8:10 [facility] % Lymphocytes 26.5 % 08/15/2023 8:10 [facility] % Monocytes 9.2 % 08/15/2023 8:10 [facility] % Eosinophils 3.7 % 08/15/2023 8:10 [facility] % Basophils 0.6 % 08/15/2023 8:10 [facility] % Immature Grans 1.0 % 08/15/19 8:10 [facility] Absolute Neutrophils 4.29 2.20 - 8.85 K/cmm 08/15/2023 8:10 [facility] Absolute Lymphocytes 1.93 1.09 - 3.30 K/cmm 08/15/2023 8:10 [facility] Absolute Monocytes 0.67 0.10 - 0.80 K/cmm 08/15/2023 8:10 [facility] Absolute Eosinophils 0.27 0.03 - 0.61 K/cmm 08/15/2023 8:10 [facility] ABS Basophils 0.04 0.01 - 0.11 K/cmm 08/15/2023 8:10 [facility] Absolute Immature Grans 0.07(H) 0.00 - 0.06 K/cmm 08/15/2023 8:10 [facility] Type of Differential: Auto 08/15/2023 8:10 [facility] Blood VENOUS BLOOD / Unknown Venipuncture / Unknown 08/15/2023 7:50 EDT 08/15/2023 8:02 EDT Joan Menon MD PACKAGES & DNA PROBE ORDERABLES Performing Organization Address [facility]/ZIP Co de Phone Number [facility] [address] [place] [address] * (ABNORMAL) BASIC METABOLIC PANEL (BMP) (08/15/2023 7:50 EDT) Sodium 137 136 - 145 mmol/L 08/15/2023 8:33 EDT [facility] Potassium 4.3 3.5 - 5.0 mmol/L 08/15/2023 8:33 EDT [facility] Chloride 103 96 - 110 mmol/L 08/15/2023 8:33 EDT [facility] CO2 Total 23 22 - 32 mmol/L 08/15/2023 8:33 EDT [facility] Anion Gap 11 5 - 14 mmol/L 08/15/2023 8:33 EDT [facility] Glucose 166(H) 70 - 99 mg/dl 08/15/2023 8:33 EDT [facility] Calcium 9.6 8.5 - 10.5 mg/dL 08/15/2023 8:33 EDT [facility] BUN 24 10 - 26 mg/dL 08/15/2023 8:33 [facility] Creatinine 0.54 0.52 - 1.04 mg/dL 08/15/2023 8:33 T [facility] eGFR 110 >60 mL/min/1.73 m2 08/15/2023 8:33 T [facility] Blood VENOUS BLOOD / Unknown Venipuncture / Unknown 08/15/2023 7:50 EDT 08/15/2023 7:59 EDT Joan Menon MD CHEMISTRY & BLOOD GA S ORDERABLES [facility] [address], [place] [phone] * (ABNORMAL) POCT GLUCOSE, INTERFACED (08/14/2023 20:43 EDT) Glucose, POC 225(H) 70 - 100 mg/dL 08/14/2023 20:44 EDT [facility] HN LAB POC COMMENT (GLUCOSE) Test Performed by Nursing Services 08/14/2023 20:44 EDT [facility] Blood CAPILLARY BLOOD / Unknown 08/14/2023 20:43 EDT 08/14/2023 20:44 EDT Aura Howell PALS SPECIALIST POINT OF CARE TEST O RDERAMICHAEL Performing Organization Address [facility]/ZIP Co de Phone Number [facility] [address], [place] [phone] * (ABNORMAL) POCT GLUCOSE, INTERFACED (08/14/2023 17:44 EDT) Glucose, POC 143(H) 70 - 100 mg/dL 08/14/2023 17:45 EDT [facility] HN LAB POC COMMENT (GLUCOSE) Test Performed by Nursing Services 08/14/2023 17:45 EDT [facility] Blood CAPILLARY BLOOD / Unknown 08/14/2023 17:44 EDT 08/14/2023 17:44 EDT Aura Howell PALS SPECIALIST POINT OF CARE TEST O NANCY [facility] [address], [place] [phone] * (ABNORMAL) POCT GLUCOSE, INTERFACED (08/14/2023 11:38 EDT) Glucose, POC 155(H) 70 - 100 mg/dL 08/14/2023 11:39 EDT [facility] HN LAB POC COMMENT (GLUCOSE) Test Performed by Nursing Services 08/14/2023 11:39 EDT [facility] Blood CAPILLARY BLOOD / Unknown 08/14/2023 11:38 EDT 08/14/2023 11:39 EDT Narrative Authorizing Provider Result Ambreen Aura Altman Lynda PALS SPECIALIST POINT OF CARE TEST O RDERABLES Performing Organization Address City/[facility]/ZIP Co de Phone Number [facility] [address] [place] [address] * (ABNORMAL) POCT GLUCOSE, INTERFACED (08/14/2023 7:43 EDT) Glucose, POC 166(H) 70 - 100 mg/dL 08/14/2023 7:45 EDT [facility] HN LAB POC COMMENT (GLUCOSE) Test Performed by Nursing Services 08/14/2023 7:45 EDT [facility] Blood CAPILLARY BLOOD / Unknown 08/14/2023 7:43 EDT 08/14/2023 7:45 EDT Aura Howell PALS SPECIALIST POINT OF CARE TEST O RDERABLES Performing Organization Address [facility] Co de Phone Number [facility] [address] [place] [address] * (ABNORMAL) POCT GLUCOSE, INTERFACED (08/13/2023 22:09 EDT) Glucose, POC 206(H) 70 - 100 mg/dL 08/13/2023 22:10 EDT [facility] HN LAB POC COMMENT (GLUCOSE) Test Performed by Nursing Services 08/13/2023 22:10 EDT [facility] Blood CAPILLARY BLOOD / Unknown 08/13/2023 22:09 EDT 08/13/2023 22:10 EDT Ayla Lynda PALS SPECIALIST POINT OF CARE TEST O RDERABLES Performing Organization Address [facility] Co de Phone Number [facility] [address] [place] [address] * (ABNORMAL) POCT GLUCOSE, INTERFACED (08/13/2023 17:44 EDT) Glucose, POC 144(H) 70 - 100 mg/dL 08/13/2023 17:45 EDT [facility] HN LAB POC COMMENT (GLUCOSE) Test Performed by Nursing Services 08/13/2023 17:45 EDT [facility] Blood CAPILLARY BLOOD / Unknown 08/13/2023 17:44 EDT 08/13/2023 17:45 EDT Aura Altman Lynda PALS SPECIALIST POINT OF CARE TEST O RDERABLES Performing Organization Address City/[facility]/ZIP Co de Phone Number [facility] [address] [place] [address] * (ABNORMAL) POCT GLUCOSE, INTERFACED (08/13/2023 11:36 EDT) Glucose, POC 132(H) 70 - 100 mg/dL 08/13/2023 11:40 EDT [facility] HN LAB POC COMMENT (GLUCOSE) Test Performed by Nursing Services 08/13/2023 11:40 EDT [facility] Blood CAPILLARY BLOOD / Unknown 08/13/2023 11:36 EDT 08/13/2023 11:40 EDT Aura Howell PALS SPECIALIST POINT OF CARE TEST O RDERABLES Performing Organization Address [facility] Hospital/ZIP Co de Phone Number [facility] [address], [place] [phone] * (ABNORMAL) POCT GLUCOSE, INTERFACED (08/13/2023 7:17 EDT) Glucose, POC 191(H) 70 - 100 mg/dL 08/13/2023 7:18 EDT [facility] HN LAB POC COMMENT (GLUCOSE) Test Performed by Nursing Services 08/13/2023 7:18 EDT [facility] Blood CAPILLARY BLOOD / Unknown 08/13/2023 7:17 EDT 08/13/2023 7:18 EDT Aura Howell PALS SPECIALIST POINT OF CARE TEST O RDERABLES Performing Organization Address [facility]/ZIP Co de Phone Number [facility] [address] [place] [address] * (ABNORMAL) POCT GLUCOSE, INTERFACED (08/12/2023 21:35 EDT) Glucose, POC 153(H) 70 - 100 mg/dL 08/12/2023 21:36 EDT [facility] HN LAB POC COMMENT (GLUCOSE) Test Performed by Nursing Services 08/12/2023 21:36 EDT [facility] Blood CAPILLARY BLOOD / Unknown 08/12/2023 21:35 EDT 08/12/2023 21:36 EDT Aura Howell PALS SPECIALIST POINT OF CARE TEST O RDERABLES Performing Organization Address [facility] Co de Phone Number [facility] [address] [place] [address] * (ABNORMAL) POCT GLUCOSE, INTERFACED (08/12/2023 17:37 EDT) Glucose, POC 149(H) 70 - 100 mg/dL 08/12/2023 17:39 EDT [facility] HN LAB POC COMMENT (GLUCOSE) Test Performed by Nursing Services 08/12/2023 17:39 EDT [facility] Blood CAPILLARY BLOOD / Unknown 08/12/2023 17:37 EDT 08/12/2023 17:39 EDT Aura Howell PALS SPECIALIST POINT OF CARE TEST O RDERABLES Performing Organization Address [facility] Co de Phone Number [facility] [address] [place] [address] * (ABNORMAL) POCT GLUCOSE, INTERFACED (08/12/2023 11:19 EDT) Glucose, POC 141(H) 70 - 100 mg/dL 08/12/2023 11:20 EDT [facility] HN LAB POC COMMENT (GLUCOSE) Test Performed by Nursing Services 08/12/2023 11:20 EDT [facility] Blood CAPILLARY BLOOD / Unknown 08/12/2023 11:19 EDT 08/12/2023 11:20 EDT Aura Howell PALS SPECIALIST POINT OF CARE TEST O RDERAMICHAEL Performing Organization Address [facility] Co de Phone Number [facility] [address], [place] [phone] * (ABNORMAL) POCT GLUCOSE, INTERFACED (08/12/2023 6:51 EDT) Glucose, POC 168(H) 70 - 100 mg/dL 08/12/2023 6:52 EDT [facility] HN LAB POC COMMENT (GLUCOSE) Test Performed by Nursing Services 08/12/2023 6:52 EDT [facility] Blood CAPILLARY BLOOD / Unknown 08/12/2023 6:51 EDT 08/12/2023 6:52 EDT Aura Howell PALS SPECIALIST POINT OF CARE TEST O LORENAERAMICHAEL Performing Organization Address [facility] de Phone Number [facility] [address], [place] [phone] * (ABNORMAL) COMPLETE BLOOD COUNT AND DIFFERENTIAL (08/12/2023 6:21 EDT) WBC 7.96 4.00 - 12.40 K/cmm 08/12/2023 6:42 EDT [facility] RBC 3.16(L) 3.86 - 5.04 M/cmm 08/12/2023 6:42 EDT [facility] Hemoglobin 8.7(L) 11.6 - 15.2 g/dL 08/12/2023 6:42 EDT [facility] HCT 26.0(L) 34.9 - 44.4 % 08/12/2023 6:42 EDT [facility] MCV 82 81 - 98 fL 08/12/2023 6:42 [facility] MCH 27.5 26.7 - 33.3 pg 08/12/2023 6:42 [facility] MCHC 33.5 32.1 - 35.9 g/dL 08/12/2023 6:42 [facility] RDW-CV 13.9 <14.7 % 08/12/2023 6:42 [facility] RDW-SD 41.5 <50.4 fl 08/12/2023 6:42 [facility] PLT 289 141 - 377 K/cmm 08/12/2023 6:42 [facility] MPV 10.4 9.5 - 12.7 fL 08/12/2023 6:42 [facility] % Neutrophils 59.6 % 08/12/2023 6:42 [facility] % Lymphocytes 26.3 % 08/12/2023 6:42 [facility] % Monocytes 8.4 % 08/12/2023 6:42 [facility] % Eosinophils 3.9 % 08/12/2023 6:42 [facility] % Basophils 0.8 % 08/12/2023 6:42 [facility] % Immature Grans 1.0 % 08/12/19 6:42 [facility] Absolute Neutrophils 4.75 2.20 - 8.85 K/cmm 08/12/2023 6:42 [facility] Absolute Lymphocytes 2.09 1.09 - 3.30 K/cmm 08/12/2023 6:42 [facility] Absolute Monocytes 0.67 0.10 - 0.80 K/cmm 08/12/2023 6:42 [facility] Absolute Eosinophils 0.31 0.03 - 0.61 K/cmm 08/12/2023 6:42 [facility] ABS Basophils 0.06 0.01 - 0.11 K/cmm 08/12/2023 6:42 [facility] Absolute Immature Grans 0.08(H) 0.00 - 0.06 K/cmm 08/12/2023 6:42 EDT [facility] Type of Differential: Auto 08/12/2023 6:42 EDT [facility] Blood VENOUS BLOOD / Unknown Venipuncture / Unknown 08/12/2023 6:21 EDT 08/12/2023 6:25 EDT Joan Menon MD PACKAGES & DNA PROBE ORDERABLES [facility] [address] [place] [address] * (ABNORMAL) BASIC METABOLIC PANEL (BMP) (08/12/2023 6:21 EDT) Sodium 137 136 - 145 mmol/L 08/12/2023 7:00 [facility] Potassium 3.8 3.5 - 5.0 mmol/L 08/12/2023 7:00 [facility] Chloride 105 96 - 110 mmol/L 08/12/2023 7:00 [facility] CO2 Total 21(L) 22 - 32 mmol/L 08/12/2023 7:00 [facility] Anion Gap 11 5 - 14 mmol/L 08/12/2023 7:00 [facility] Glucose 164(H) 70 - 99 mg/dl 08/12/2023 7:00 [facility] Calcium 9.5 8.5 - 10.5 mg/dL 08/12/2023 7:00 [facility] BUN 17 10 - 26 mg/dL 08/12/2023 7:00 [facility] Creatinine 0.40(L) 0.52 - 1.04 mg/dL 08/12/2023 7:00 [facility] eGFR 118 >60 mL/min/1.73 m2 08/12/2023 7:00 T [facility] Blood VENOUS BLOOD / Unknown Venipuncture / Unknown 08/12/2023 6:21 EDT 08/12/2023 6:25 EDT Joan Menon MD CHEMISTRY & BLOOD GA S ORDERABLES Performing Organization Address [facility] Co de Phone Number [facility] [address], [place] [phone] * (ABNORMAL) POCT GLUCOSE, INTERFACED (08/11/2023 20:24 EDT) Glucose, POC 189(H) 70 - 100 mg/dL 08/11/2023 20:26 EDT [facility] HN LAB POC COMMENT (GLUCOSE) Test Performed by Nursing Services 08/11/2023 20:26 EDT [facility] Blood CAPILLARY BLOOD / Unknown 08/11/2023 20:24 EDT 08/11/2023 20:26 EDT Aura Howell NP POINT OF CARE TEST O RDERAMICHAEL Performing Organization Address [facility] Co de Phone Number [facility] [address] [place] [address] * (ABNORMAL) POCT GLUCOSE, INTERFACED (08/11/2023 17:15 EDT) Glucose, POC 119(H) 70 - 100 mg/dL 08/11/2023 17:17 EDT [facility] HN LAB POC COMMENT (GLUCOSE) Test Performed by Nursing Services 08/11/2023 17:17 EDT [facility] Blood CAPILLARY BLOOD / Unknown 08/11/2023 17:15 EDT 08/11/2023 17:17 EDT Aura Howell NP POINT OF CARE TEST O RDERAMICHAEL Performing Organization Address [facility] Co de Phone Number [facility] [address] [place] [address] * (ABNORMAL) POCT GLUCOSE, INTERFACED (08/11/2023 11:34 EDT) Glucose, POC 194(H) 70 - 100 mg/dL 08/11/2023 11:35 EDT [facility] HN LAB POC COMMENT (GLUCOSE) Test Performed by Nursing Services 08/11/2023 11:35 EDT [facility] Blood CAPILLARY BLOOD / Unknown 08/11/2023 11:34 EDT 08/11/2023 11:35 EDT Aura Howell PALS SPECIALIST POINT OF CARE TEST O RDERABLES Performing Organization Address [facility] Co de Phone Number [facility] [address] [place] [address] * (ABNORMAL) POCT GLUCOSE, INTERFACED (08/11/2023 8:29 EDT) Glucose, POC 174(H) 70 - 100 mg/dL 08/11/2023 8:30 EDT [facility] HN LAB POC COMMENT (GLUCOSE) Test Performed by Nursing Services 08/11/2023 8:30 EDT [facility] Blood CAPILLARY BLOOD / Unknown 08/11/2023 8:29 EDT 08/11/2023 8:30 EDT Aura Howell PALS SPECIALIST POINT OF CARE TEST O RDERABLES Performing Organization Address [facility] Co de Phone Number [facility] [address] [place] [address] * (ABNORMAL) POCT GLUCOSE, INTERFACED (08/10/2023 21:40 EDT) Glucose, POC 141(H) 70 - 100 mg/dL 08/10/2023 21:41 EDT [facility] HN LAB POC COMMENT (GLUCOSE) Test Performed by Nursing Services 08/10/2023 21:41 EDT [facility] Blood CAPILLARY BLOOD / Unknown 08/10/2023 21:40 EDT 08/10/2023 21:41 EDT Aura Howell PALS SPECIALIST POINT OF CARE TEST O RDERABLES Performing Organization Address City/[facility]/ZIP Co de Phone Number [facility] [address], [place] [phone] * (ABNORMAL) POCT GLUCOSE, INTERFACED (08/10/2023 18:22 EDT) Glucose, POC 157(H) 70 - 100 mg/dL 08/10/2023 18:23 EDT [facility] HN LAB POC COMMENT (GLUCOSE) Test Performed by Nursing Services 08/10/2023 18:23 EDT [facility] Blood CAPILLARY BLOOD / Unknown 08/10/2023 18:22 EDT 08/10/2023 18:23 EDT Aura Howell PALS SPECIALIST POINT OF CARE TEST O RDERABLES Performing Organization Address [facility] Co de Phone Number [facility] [address], [place] [phone] * (ABNORMAL) POCT GLUCOSE, INTERFACED (08/10/2023 11:27 EDT) Glucose, POC 123(H) 70 - 100 mg/dL 08/10/2023 11:29 EDT [facility] HN LAB POC COMMENT (GLUCOSE) Test Performed by Nursing Services 08/10/2023 11:29 EDT [facility] Blood CAPILLARY BLOOD / Unknown 08/10/2023 11:27 EDT 08/10/2023 11:29 EDT Aura Howell PALS SPECIALIST POINT OF CARE TEST O RDERABLES Performing Organization Address City/[facility]/ZIP Co de Phone Number [facility] [address], [place] [phone] * (ABNORMAL) POCT GLUCOSE, INTERFACED (08/10/2023 8:07 EDT) Glucose, POC 152(H) 70 - 100 mg/dL 08/10/2023 8:10 EDT [facility] HN LAB POC COMMENT (GLUCOSE) Test Performed by Nursing Services 08/10/2023 8:10 EDT [facility] Blood CAPILLARY BLOOD / Unknown 08/10/2023 8:07 EDT 08/10/2023 8:10 EDT Aura Howell PALS SPECIALIST POINT OF CARE TEST O RDERABLES Performing Organization Address City/[facility]/ZIP Co de Phone Number [facility] [address], [place] [phone] * (ABNORMAL) POCT GLUCOSE, INTERFACED (08/09/2023 20:27 EDT) Glucose, POC 135(H) 70 - 100 mg/dL 08/09/2023 20:29 EDT [facility] HN LAB POC COMMENT (GLUCOSE) Test Performed by Nursing Services 08/09/2023 20:29 EDT [facility] Blood CAPILLARY BLOOD / Unknown 08/09/2023 20:27 EDT 08/09/2023 20:29 EDT Aura Howell PALS SPECIALIST POINT OF CARE TEST O RDERABLES Performing Organization Address [facility] Co de Phone Number [facility] [address], [place] [phone] * (ABNORMAL) POCT GLUCOSE, INTERFACED (08/09/2023 18:00 EDT) Glucose, POC 115(H) 70 - 100 mg/dL 08/09/2023 18:01 EDT [facility] HN LAB POC COMMENT (GLUCOSE) Test Performed by Nursing Services 08/09/2023 18:01 EDT [facility] Blood CAPILLARY BLOOD / Unknown 08/09/2023 18:00 EDT 08/09/2023 18:01 EDT Aura Howell PALS SPECIALIST POINT OF CARE TEST O RDERABLES Performing Organization Address City/[facility]/ZIP Co de Phone Number [facility] [address], [place] [phone] * (ABNORMAL) POCT GLUCOSE, INTERFACED (08/09/2023 11:44 EDT) Glucose, POC 152(H) 70 - 100 mg/dL 08/09/2023 11:45 EDT [facility] HN LAB POC COMMENT (GLUCOSE) Test Performed by Nursing Services 08/09/2023 11:45 EDT [facility] Blood CAPILLARY BLOOD / Unknown 08/09/2023 11:44 EDT 08/09/2023 11:45 EDT Aura Howell PALS SPECIALIST POINT OF CARE TEST O RDERABLES Performing Organization Address [facility] Co de Phone Number [facility] [address], [place] [phone] * (ABNORMAL) POCT GLUCOSE, INTERFACED (08/09/2023 8:52 EDT) Glucose, POC 193(H) 70 - 100 mg/dL 08/09/2023 8:53 EDT [facility] HN LAB POC COMMENT (GLUCOSE) Test Performed by Nursing Services 08/09/2023 8:53 EDT [facility] Blood CAPILLARY BLOOD / Unknown 08/09/2023 8:52 EDT 08/09/2023 8:53 EDT Aura Howell PALS SPECIALIST POINT OF CARE TEST O RDERABLES Performing Organization Address [facility] Co de Phone Number [facility] [address], [place] [phone] * (ABNORMAL) POCT GLUCOSE, INTERFACED (08/08/2023 19:45 EDT) Glucose, POC 180(H) 70 - 100 mg/dL 08/08/2023 19:46 EDT [facility] HN LAB POC COMMENT (GLUCOSE) Test Performed by Nursing Services 08/08/2023 19:46 EDT [facility] Blood CAPILLARY BLOOD / Unknown 08/08/2023 19:45 EDT 08/08/2023 19:46 EDT Aura Howell PALS SPECIALIST POINT OF CARE TEST O RDERABLES Performing Organization Address [facility] Co de Phone Number [facility] [address], [place] [phone] * (ABNORMAL) POCT GLUCOSE, INTERFACED (08/08/2023 16:48 EDT) Glucose, POC 182(H) 70 - 100 mg/dL 08/08/2023 16:49 EDT [facility] HN LAB POC COMMENT (GLUCOSE) Test Performed by Nursing Services 08/08/2023 16:49 EDT [facility] Blood CAPILLARY BLOOD / Unknown 08/08/2023 16:48 EDT 08/08/2023 16:49 EDT Aura Howell PALS SPECIALIST POINT OF CARE TEST O LORENAERAMICHAEL Performing Organization Address [facility] de Phone Number [facility] [address], [place] [phone] * (ABNORMAL) POCT GLUCOSE, INTERFACED (08/08/2023 12:37 EDT) Glucose, POC 167(H) 70 - 100 mg/dL 08/08/2023 12:38 EDT [facility] HN LAB POC COMMENT (GLUCOSE) Test Performed by Nursing Services 08/08/2023 12:38 EDT [facility] Blood CAPILLARY BLOOD / Unknown 08/08/2023 12:37 EDT 08/08/2023 12:38 EDT Aura Howell PALS SPECIALIST POINT OF CARE TEST O RDERABLES Performing Organization Address [facility] Co de Phone Number [facility] [address], [place] [phone] * ECG REPORT - SCANNED (08/08/2023 11:03 EDT) 08/08/2023 11:0 3 EDT Scan 2 Nursing Coordinator PROCEDURE/MINOR VI GICAL ORDERABLES * (ABNORMAL) POCT GLUCOSE, INTERFACED (08/08/2023 7:23 EDT) Glucose, POC 158(H) 70 - 100 mg/dL 08/08/2023 7:24 EDT [facility] HN LAB POC COMMENT (GLUCOSE) Test Performed by Nursing Services 08/08/2023 7:24 EDT [facility] Blood CAPILLARY BLOOD / Unknown 08/08/2023 7:23 EDT 08/08/2023 7:24 EDT Aura Howell NP POINT OF CARE TEST O RDERABLES [facility] [address] [place] [phone] * (ABNORMAL) COMPLETE BLOOD COUNT AND DIFFERENTIAL (08/08/2023 6:54 EDT) [facility] WBC 8.24 4.00 - 12.40 K/cmm 08/08/2023 7:11 [facility] RBC 3.37(L) 3.86 - 5.04 M/cmm 08/08/2023 7:11 [facility] Hemoglobin 9.4(L) 11.6 - 15.2 g/dL 08/08/2023 7:11 [facility] HCT 27.7(L) 34.9 - 44.4 % 08/08/2023 7:11 [facility] MCV 82 81 - 98 fL 08/08/2023 7:11 [facility] MCH 27.9 26.7 - 33.3 pg 08/08/2023 7:11 [facility] MCHC 33.9 32.1 - 35.9 g/dL 08/08/2023 7:11 [facility] RDW-CV 13.6 <14.7 % 08/08/2023 7:11 [facility] RDW-SD 41.0 <50.4 fl 08/08/2023 7:11 [facility] PLT 314 141 - 377 K/cmm 08/08/2023 7:11 [facility] MPV 9.9 9.5 - 12.7 fL 08/08/2023 7:11 [facility] % Neutrophils 60.1 % 08/08/2023 7:11 [facility] % Lymphocytes 27.4 % 08/08/2023 7:11 [facility] % Monocytes 7.0 % 08/08/2023 7:11 [facility] % Eosinophils 3.4 % 08/08/2023 7:11 [facility] % Basophils 0.6 % 08/08/2023 7:11 [facility] % Immature Grans 1.5 % 08/08/19 7:11 [facility] Absolute Neutrophils 4.95 2.20 - 8.85 K/cmm 08/08/2023 7:11 [facility] Absolute Lymphocytes 2.26 1.09 - 3.30 K/cmm 08/08/2023 7:11 [facility] Absolute Monocytes 0.58 0.10 - 0.80 K/cmm 08/08/2023 7:11 [facility] Absolute Eosinophils 0.28 0.03 - 0.61 K/cmm 08/08/2023 7:11 [facility] ABS Basophils 0.05 0.01 - 0.11 K/cmm 08/08/2023 7:11 [facility] Absolute Immature Grans 0.12(H) 0.00 - 0.06 K/cmm 08/08/2023 7:11 [facility] Type of Differential: Auto 08/08/2023 7:11 [facility] Blood VENOUS BLOOD / Unknown Venipuncture / Unknown 08/08/2023 6:54 EDT 08/08/2023 7:00 EDT Joan Menon MD PACKAGES & DNA PROBE ORDERABLES Performing Organization Address City/[facility]/ZIP Co de Phone Number [facility] [address] [place] [address] * (ABNORMAL) BASIC METABOLIC PANEL (BMP) (08/08/2023 6:54 EDT) Sodium 140 136 - 145 mmol/L 08/08/2023 7:41 EDT [facility] Potassium 3.8 3.5 - 5.0 mmol/L 08/08/2023 7:41 EDT [facility] Chloride 108 96 - 110 mmol/L 08/08/2023 7:41 T [facility] CO2 Total 20(L) 22 - 32 mmol/L 08/08/2023 7:41 T [facility] Anion Gap 12 5 - 14 mmol/L 08/08/2023 7:41 [facility] Glucose 168(H) 70 - 99 mg/dl 08/08/2023 7:41 [facility] Calcium 10.1 8.5 - 10.5 mg/dL 08/08/2023 7:41 [facility] BUN 12 10 - 26 mg/dL 08/08/2023 7:41 [facility] Creatinine 0.38(L) 0.52 - 1.04 mg/dL 08/08/2023 7:41 [facility] eGFR 120 >60 mL/min/1.73 m2 08/08/2023 7:41 [facility] Blood VENOUS BLOOD / Unknown Venipuncture / Unknown 08/08/2023 6:54 EDT 08/08/2023 7:05 EDT Joan Menon MD CHEMISTRY & BLOOD GA S ORDERABLES [facility] [address] [place] [address] * (ABNORMAL) POCT GLUCOSE, INTERFACED (08/07/2023 21:03 EDT) Glucose, POC 164(H) 70 - 100 mg/dL 08/07/2023 21:04 EDT [facility] HN LAB POC COMMENT (GLUCOSE) Test Performed by Nursing Services 08/07/2023 21:04 EDT [facility] Blood CAPILLARY BLOOD / Unknown 08/07/2023 21:03 EDT 08/07/2023 21:04 EDT Moo Monique MD POINT OF CARE TEST ORDERABLES Performing Organization Address [facility]/ZIP Co de Phone Number [facility] [address] [place] [address] * (ABNORMAL) POCT GLUCOSE, INTERFACED (08/07/2023 18:35 EDT) Glucose, POC 171(H) 70 - 100 mg/dL 08/07/2023 18:36 EDT [facility] HN LAB POC COMMENT (GLUCOSE) Test Performed by Nursing Services 08/07/2023 18:36 EDT [facility] Blood CAPILLARY BLOOD / Unknown 08/07/2023 18:35 EDT 08/07/2023 18:36 EDT Aura Howell NP POINT OF CARE TEST O RDERABLES Performing Organization Address [facility]/ZIP Co de Phone Number [facility] [address] [place] [phone] * (ABNORMAL) POCT GLUCOSE, INTERFACED (08/07/2023 16:53 EDT) Glucose, POC 168(H) 70 - 100 mg/dL 08/07/2023 16:55 EDT [facility] HN LAB POC COMMENT (GLUCOSE) Test Performed by Nursing Services 08/07/2023 16:55 EDT [facility] Blood CAPILLARY BLOOD / Unknown 08/07/2023 16:53 EDT 08/07/2023 16:55 EDT Aura Howell PALS SPECIALIST POINT OF CARE TEST O RDERABLES Performing Organization Address City/[facility]/ZIP Co de Phone Number [facility] [address] [place] [address] * (ABNORMAL) POCT GLUCOSE, INTERFACED (08/07/2023 12:55 EDT) Glucose, POC 136(H) 70 - 100 mg/dL 08/07/2023 12:56 EDT [facility] HN LAB POC COMMENT (GLUCOSE) Test Performed by Nursing Services 08/07/2023 12:56 EDT [facility] Blood CAPILLARY BLOOD / Unknown 08/07/2023 12:55 EDT 08/07/2023 12:56 EDT Moo Monique MD POINT OF CARE TEST ORDERABLES Performing Organization Address [facility] Co de Phone Number [facility] [address] [place] [address] * (ABNORMAL) POCT GLUCOSE, INTERFACED (08/07/2023 10:19 EDT) Glucose, POC 189(H) 70 - 100 mg/dL 08/07/2023 10:20 EDT [facility] HN LAB POC COMMENT (GLUCOSE) Test Performed by Nursing Services 08/07/2023 10:20 EDT [facility] Blood CAPILLARY BLOOD / Unknown 08/07/2023 10:19 EDT 08/07/2023 10:20 EDT Aura Howell NP POINT OF CARE TEST O RDERABLES Performing Organization Address City/[facility] Co de Phone Number [facility] [address], [place] [phone] * (ABNORMAL) POCT GLUCOSE, INTERFACED (08/07/2023 9:15 EDT) Glucose, POC 167(H) 70 - 100 mg/dL 08/07/2023 9:16 EDT [facility] HN LAB POC COMMENT (GLUCOSE) Test Performed by Nursing Services 08/07/2023 9:16 EDT [facility] Blood CAPILLARY BLOOD / Unknown 08/07/2023 9:15 EDT 08/07/2023 9:16 EDT Aura Howell PALS SPECIALIST POINT OF CARE TEST O RDERABLES Performing Organization Address [facility] Co de Phone Number [facility] [address] [place] [address] * (ABNORMAL) POCT GLUCOSE, INTERFACED (08/06/2023 21:37 EDT) Glucose, POC 154(H) 70 - 100 mg/dL 08/06/2023 21:46 EDT [facility] HN LAB POC COMMENT (GLUCOSE) Test Performed by Nursing Services 08/06/2023 21:46 EDT [facility] Blood CAPILLARY BLOOD / Unknown 08/06/2023 21:37 EDT 08/06/2023 21:46 EDT Aura Howell PALS SPECIALIST POINT OF CARE TEST O RDERAMICHAEL Performing Organization Address [facility] Co de Phone Number [facility] [address], [place] [address] * (ABNORMAL) POCT GLUCOSE, INTERFACED (08/06/2023 18:13 EDT) Glucose, POC 159(H) 70 - 100 mg/dL 08/06/2023 18:15 EDT [facility] HN LAB POC COMMENT (GLUCOSE) Test Performed by Nursing Services 08/06/2023 18:15 EDT [facility] Blood CAPILLARY BLOOD / Unknown 08/06/2023 18:13 EDT 08/06/2023 18:15 EDT Aura Howell PALS SPECIALIST POINT OF CARE TEST O RDERABLES Performing Organization Address [facility]/ZIP Co de Phone Number [facility] [address], [place] [address] * (ABNORMAL) POCT GLUCOSE, INTERFACED (08/06/2023 12:46 EDT) Glucose, POC 162(H) 70 - 100 mg/dL 08/06/2023 12:48 EDT [facility] HN LAB POC COMMENT (GLUCOSE) Test Performed by Nursing Services 08/06/2023 12:48 EDT [facility] Blood CAPILLARY BLOOD / Unknown 08/06/2023 12:46 EDT 08/06/2023 12:48 EDT Aura Howell PALS SPECIALIST POINT OF CARE TEST O LORENAERAMICHAEL Performing Organization Address [facility] Co de Phone Number [facility] [address], [place] [phone] * (ABNORMAL) POCT GLUCOSE, INTERFACED (08/06/2023 7:32 EDT) Glucose, POC 186(H) 70 - 100 mg/dL 08/06/2023 7:33 EDT [facility] HN LAB POC COMMENT (GLUCOSE) Test Performed by Nursing Services 08/06/2023 7:33 EDT [facility] Blood CAPILLARY BLOOD / Unknown 08/06/2023 7:32 EDT 08/06/2023 7:33 EDT Aura Howell NP POINT OF CARE TEST O NANCY Performing Organization Address City/[facility]/ZIP Co de Phone Number [facility] [address], [place] [phone] * (ABNORMAL) POCT GLUCOSE, INTERFACED (08/05/2023 21:13 EDT) Glucose, POC 190(H) 70 - 100 mg/dL 08/05/2023 21:15 EDT [facility] HN LAB POC COMMENT (GLUCOSE) Test Performed by Nursing Services 08/05/2023 21:15 EDT [facility] Blood CAPILLARY BLOOD / Unknown 08/05/2023 21:13 EDT 08/05/2023 21:15 EDT Aura Howell PALS SPECIALIST POINT OF CARE TEST O RDERABLES Performing Organization Address City/[facility]/ZIP Co de Phone Number [facility] [address] [place] [address] * (ABNORMAL) POCT GLUCOSE, INTERFACED (08/05/2023 16:52 EDT) Glucose, POC 192(H) 70 - 100 mg/dL 08/05/2023 16:53 EDT [facility] HN LAB POC COMMENT (GLUCOSE) Test Performed by Nursing Services 08/05/2023 16:53 EDT [facility] Blood CAPILLARY BLOOD / Unknown 08/05/2023 16:52 EDT 08/05/2023 16:53 EDT Aura Howell PALS SPECIALIST POINT OF CARE TEST O RDERABLES Performing Organization Address [facility] Co de Phone Number [facility] [address] [place] [address] * (ABNORMAL) POCT GLUCOSE, INTERFACED (08/05/2023 11:25 EDT) Glucose, POC 140(H) 70 - 100 mg/dL 08/05/2023 11:27 EDT [facility] HN LAB POC COMMENT (GLUCOSE) Test Performed by Nursing Services 08/05/2023 11:27 EDT [facility] Blood CAPILLARY BLOOD / Unknown 08/05/2023 11:25 EDT 08/05/2023 11:27 EDT Aura Howell PALS SPECIALIST POINT OF CARE TEST O RDERABLES Performing Organization Address [facility]/ZIP Co de Phone Number [facility] [address] [place] [address] * (ABNORMAL) POCT GLUCOSE, INTERFACED (08/05/2023 7:32 EDT) Glucose, POC 169(H) 70 - 100 mg/dL 08/05/2023 7:33 EDT [facility] HN LAB POC COMMENT (GLUCOSE) Test Performed by Nursing Services 08/05/2023 7:33 T [facility] Blood CAPILLARY BLOOD / Unknown 08/05/2023 7:32 EDT 08/05/2023 7:33 EDT Aura Howell NP POINT OF CARE TEST O RDERABLES [facility] [address] [place] [address] * (ABNORMAL) COMPLETE BLOOD COUNT AND DIFFERENTIAL (08/05/2023 6:48 EDT) [facility] WBC 8.42 4.00 - 12.40 K/cmm 08/05/2023 7:21 [facility] RBC 3.38(L) 3.86 - 5.04 M/cmm 08/05/2023 7:21 [facility] Hemoglobin 9.4(L) 11.6 - 15.2 g/dL 08/05/2023 7:21 [facility] HCT 28.4(L) 34.9 - 44.4 % 08/05/2023 7:21 [facility] MCV 84 81 - 98 fL 08/05/2023 7:21 [facility] MCH 27.8 26.7 - 33.3 pg 08/05/2023 7:21 [facility] MCHC 33.1 32.1 - 35.9 g/dL 08/05/2023 7:21 [facility] RDW-CV 13.5 <14.7 % 08/05/2023 7:21 [facility] RDW-SD 41.9 <50.4 fl 08/05/2023 7:21 [facility] PLT 327 141 - 377 K/cmm 08/05/2023 7:21 [facility] MPV 10.0 9.5 - 12.7 fL 08/05/2023 7:21 [facility] % Neutrophils 61.5 % 08/05/2023 7:21 [facility] % Lymphocytes 25.5 % 08/05/2023 7:21 [facility] % Monocytes 7.7 % 08/05/2023 7:21 [facility] % Eosinophils 3.3 % 08/05/2023 7:21 [facility] % Basophils 0.6 % 08/05/2023 7:21 [facility] % Immature Grans 1.4 % 08/05/19 7:21 [facility] Absolute Neutrophils 5.17 2.20 - 8.85 K/cmm 08/05/2023 7:21 [facility] Absolute Lymphocytes 2.15 1.09 - 3.30 K/cmm 08/05/2023 7:21 [facility] Absolute Monocytes 0.65 0.10 - 0.80 K/cmm 08/05/2023 7:21 [facility] Absolute Eosinophils 0.28 0.03 - 0.61 K/cmm 08/05/2023 7:21 [facility] ABS Basophils 0.05 0.01 - 0.11 K/cmm 08/05/2023 7:21 [facility] Absolute Immature Grans 0.12(H) 0.00 - 0.06 K/cmm 08/05/2023 7:21 [facility] Type of Differential: Auto 08/05/2023 7:21 [facility] Blood VENOUS BLOOD / Unknown Venipuncture / Unknown 08/05/2023 6:48 EDT 08/05/2023 7:07 EDT Joan Menon MD PACKAGES & DNA PROBE ORDERABLES [facility] [address], [place] [phone] * (ABNORMAL) BASIC METABOLIC PANEL (BMP) (08/05/2023 6:48 EDT) Sodium 137 136 - 145 mmol/L 08/05/2023 7:39 [facility] Potassium 3.9 3.5 - 5.0 mmol/L 08/05/2023 7:39 [facility] Chloride 105 96 - 110 mmol/L 08/05/2023 7:39 [facility] CO2 Total 21(L) 22 - 32 mmol/L 08/05/2023 7:39 [facility] Anion Gap 11 5 - 14 mmol/L 08/05/2023 7:39 [facility] Glucose 157(H) 70 - 99 mg/dl 08/05/2023 7:39 [facility] Calcium 10.1 8.5 - 10.5 mg/dL 08/05/2023 7:39 [facility] BUN 13 10 - 26 mg/dL 08/05/2023 7:39 [facility] Creatinine 0.43(L) 0.52 - 1.04 mg/dL 08/05/2023 7:39 [facility] eGFR 116 >60 mL/min/1.73 m2 08/05/2023 7:39 [facility] Blood VENOUS BLOOD / Unknown Venipuncture / Unknown 08/05/2023 6:48 EDT 08/05/2023 7:12 EDT Joan Menon MD CHEMISTRY & BLOOD GA S ORDERABLES [facility] [address], [place] [phone] * (ABNORMAL) POCT GLUCOSE, INTERFACED (08/04/2023 21:24 EDT) Glucose, POC 180(H) 70 - 100 mg/dL 08/04/2023 21:25 EDT [facility] HN LAB POC COMMENT (GLUCOSE) Test Performed by Nursing Services 08/04/2023 21:25 EDT [facility] Blood CAPILLARY BLOOD / Unknown 08/04/2023 21:24 EDT 08/04/2023 21:25 EDT Aura Howell PALS SPECIALIST POINT OF CARE TEST O RDERABLES Performing Organization Address City/[facility]/ZIP Co de Phone Number [facility] [address], [place] [phone] * (ABNORMAL) POCT GLUCOSE, INTERFACED (08/04/2023 18:38 EDT) Glucose, POC 165(H) 70 - 100 mg/dL 08/04/2023 18:40 EDT [facility] HN LAB POC COMMENT (GLUCOSE) Test Performed by Nursing Services 08/04/2023 18:40 EDT [facility] Blood CAPILLARY BLOOD / Unknown 08/04/2023 18:38 EDT 08/04/2023 18:40 EDT Aura Howell PALS SPECIALIST POINT OF CARE TEST O RDERABLES Performing Organization Address [facility] Co de Phone Number [facility] [address] [place] [address] * (ABNORMAL) POCT GLUCOSE, INTERFACED (08/04/2023 12:58 EDT) Glucose, POC 121(H) 70 - 100 mg/dL 08/04/2023 12:59 EDT [facility] HN LAB POC COMMENT (GLUCOSE) Test Performed by Nursing Services 08/04/2023 12:59 EDT [facility] Blood CAPILLARY BLOOD / Unknown 08/04/2023 12:58 EDT 08/04/2023 12:59 EDT Aura Howell PALS SPECIALIST POINT OF CARE TEST O RDERABLES Performing Organization Address City/[facility]/ZIP Co de Phone Number [facility] [address], [place] [phone] * (ABNORMAL) POCT GLUCOSE, INTERFACED (08/04/2023 7:51 EDT) Glucose, POC 194(H) 70 - 100 mg/dL 08/04/2023 7:53 EDT [facility] HN LAB POC COMMENT (GLUCOSE) Test Performed by Nursing Services 08/04/2023 7:53 EDT [facility] Blood CAPILLARY BLOOD / Unknown 08/04/2023 7:51 EDT 08/04/2023 7:52 EDT Aura Howell PALS SPECIALIST POINT OF CARE TEST O RDERAMICHAEL Performing Organization Address [facility] Co de Phone Number [facility] [address], [place] [phone] * (ABNORMAL) POCT GLUCOSE, INTERFACED (08/03/2023 19:51 EDT) Glucose, POC 159(H) 70 - 100 mg/dL 08/03/2023 19:53 EDT [facility] HN LAB POC COMMENT (GLUCOSE) Test Performed by Nursing Services 08/03/2023 19:53 EDT [facility] Blood CAPILLARY BLOOD / Unknown 08/03/2023 19:51 EDT 08/03/2023 19:53 EDT Aura Howell PALS SPECIALIST POINT OF CARE TEST O RDERAMICHAEL Performing Organization Address [facility]/ZIP Co de Phone Number [facility] [address], [place] [phone] * (ABNORMAL) POCT GLUCOSE, INTERFACED (08/03/2023 18:04 EDT) Glucose, POC 173(H) 70 - 100 mg/dL 08/03/2023 18:05 EDT [facility] HN LAB POC COMMENT (GLUCOSE) Test Performed by Nursing Services 08/03/2023 18:05 EDT [facility] Blood CAPILLARY BLOOD / Unknown 08/03/2023 18:04 EDT 08/03/2023 18:05 EDT Aura Altman Lynda PALS SPECIALIST POINT OF CARE TEST O RDERABLES Performing Organization Address City/[facility]/ZIP Co de Phone Number [facility] [address], [place] [phone] * (ABNORMAL) POCT GLUCOSE, INTERFACED (08/03/2023 11:29 EDT) Glucose, POC 126(H) 70 - 100 mg/dL 08/03/2023 11:30 EDT [facility] HN LAB POC COMMENT (GLUCOSE) Test Performed by Nursing Services 08/03/2023 11:30 EDT [facility] Blood CAPILLARY BLOOD / Unknown 08/03/2023 11:29 EDT 08/03/2023 11:30 EDT Ayla Lynda PALS SPECIALIST POINT OF CARE TEST O LORENAERAMICHAEL Performing Organization Address [facility] Co de Phone Number [facility] [address] [place] [address] * (ABNORMAL) POCT GLUCOSE, INTERFACED (08/03/2023 7:39 EDT) Glucose, POC 157(H) 70 - 100 mg/dL 08/03/2023 7:40 EDT [facility] HN LAB POC COMMENT (GLUCOSE) Test Performed by Nursing Services 08/03/2023 7:40 EDT [facility] Blood CAPILLARY BLOOD / Unknown 08/03/2023 7:39 EDT 08/03/2023 7:40 EDT Aura Howell PALS SPECIALIST POINT OF CARE TEST O RDERABLES Performing Organization Address [facility] Co de Phone Number [facility] [address], [place] [phone] * (ABNORMAL) POCT GLUCOSE, INTERFACED (2023 21:13 EDT) Glucose, POC 168(H) 70 - 100 mg/dL 2023 21:14 EDT [facility] HN LAB POC COMMENT (GLUCOSE) Test Performed by Nursing Services 2023 21:14 EDT [facility] Blood CAPILLARY BLOOD / Unknown 2023 21:13 EDT 2023 21:14 EDT YalaAnupama Howell PALS SPECIALIST POINT OF CARE TEST O RDERABLES Performing Organization Address [facility] Co de Phone Number [facility] [address] [place] [address] * (ABNORMAL) POCT GLUCOSE, INTERFACED (2023 18:04 EDT) Glucose, POC 187(H) 70 - 100 mg/dL 2023 18:06 EDT [facility] HN LAB POC COMMENT (GLUCOSE) Test Performed by Nursing Services 2023 18:06 EDT [facility] Blood CAPILLARY BLOOD / Unknown 2023 18:04 EDT 2023 18:05 EDT Aura Howell PALS SPECIALIST POINT OF CARE TEST O RDERABLES Performing Organization Address [facility] de Phone Number [facility] [address] [place] [address] * EKG 12-LEAD (2023 16:05 EDT) 2023 16:0 5 EDT Narrative [facility] EKG - 08/08/2023 10:55 EDT ? The ? Test Date: ?2023 Pat Name: ? DELLA BROWNING ? Department: ?? [facility] ? Room: ? B694 Gender: ? Female ? 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 [id number] : ?1970 ? Requested By: LYNETTE MANDEL Order Number: [id number] ? Reading MD: ?? SANTOS GOULD MD ? Measurements Intervals ?[place] ? Rate: ? 85 ? P: ?48 IA: ? 167 ?QRS: ?32 QRSD: ? 83 [...] Electronically Signed On 08-08-2023 10:55:55 EDT by SANTOS GOULD MD. Procedure Note Santos Gould MD - 08/08/2023 The Test Date: 2023 Pat Name: DELLA BROWNING Department: Derek Room: [facility] Gender: Female President Practicing Urologist: [id number] : 1970 Requested By: LYNETTE MANDEL Order Number: [id number] Reading MD: SANTOS GOULD MD Measurements Intervals [place] Rate: 85 P: 48 IA: 167 QRS: 32 QRSD: 83 T: 71 QT: 363 QTc: 433 Interpretive Statements SINUS RHYTHM POSSIBLE RIGHT VENTRICULAR CONDUCTION DELAY NONSPECIFIC T-WAVE ABNORMALITY BASELINE ARTIFACT LIMITS SENSITIVITY OF INTERPRETATION Compared to ECG 07/22/2023 16:16:49 Artifact now present I reviewed the tracing and have either agreed or edited the findings inthis report. Electronically Signed On 08-08-2023 10:55:55 EDT by LEONARD MCCLENDON. Logan Ojeda DO CARDIAC ECG ORDERABL ES [facility] EKG * (ABNORMAL) POCT GLUCOSE, INTERFACED (2023 11:42 EDT) Glucose, POC 171(H) 70 - 100 mg/dL 2023 11:43 EDT [facility] HN LAB POC COMMENT (GLUCOSE) Test Performed by Nursing Services 2023 11:43 EDT [facility] Blood CAPILLARY BLOOD / Unknown 2023 11:42 EDT 2023 11:43 EDT Aura Howell PALS SPECIALIST POINT OF CARE TEST O RDERABLES Performing Organization Address [facility] Co de Phone Number [facility] [address], [place] [phone] * (ABNORMAL) POCT GLUCOSE, INTERFACED (2023 7:52 EDT) Glucose, POC 176(H) 70 - 100 mg/dL 2023 7:52 EDT [facility] HN LAB POC COMMENT (GLUCOSE) Test Performed by Nursing Services 2023 7:52 EDT [facility] Blood CAPILLARY BLOOD / Unknown 2023 7:52 EDT 2023 7:52 EDT Aura Howell PALS SPECIALIST POINT OF CARE TEST O RDERABLES Performing Organization Address [facility] de Phone Number [facility] [address], [place] [phone] * (ABNORMAL) POCT GLUCOSE, INTERFACED (08/01/2023 22:07 EDT) Glucose, POC 178(H) 70 - 100 mg/dL 08/01/2023 22:08 EDT [facility] HN LAB POC COMMENT (GLUCOSE) Test Performed by Nursing Services 08/01/2023 22:08 EDT [facility] Blood CAPILLARY BLOOD / Unknown 08/01/2023 22:07 EDT 08/01/2023 22:08 EDT Aura Howell PALS SPECIALIST POINT OF CARE TEST O RDERABLES Performing Organization Address [facility] Co de Phone Number [facility] [address], [place] [phone] * (ABNORMAL) POCT GLUCOSE, INTERFACED (08/01/2023 17:33 EDT) Glucose, POC 194(H) 70 - 100 mg/dL 08/01/2023 17:35 EDT [facility] HN LAB POC COMMENT (GLUCOSE) Test Performed by Nursing Services 08/01/2023 17:35 EDT [facility] Blood CAPILLARY BLOOD / Unknown 08/01/2023 17:33 EDT 08/01/2023 17:35 EDT Aura Howell NP POINT OF CARE TEST O RDERABLES Performing Organization Address [facility] Co de Phone Number [facility] [address] [place] [address] * (ABNORMAL) VAGINAL CTGC AND VAGINITIS/VAGINOSIS MOLECULAR DETECTION (08/01/2023 16:31 EDT) Franny glabrata Negative Negative 2023 13:31 EDT [facility] Trichomonas Vaginalis Negative Negative 2023 13:31 EDT [facility] BV (Bacterial vaginosis) Negative Negative 2023 13:31 EDT [facility] Neisseria gonorrhoeae Result Negative Negative 2023 13:31 EDT [facility] Chlamydia trachomatis Result Negative Negative 2023 13:31 EDT [facility] Franny Species Positive(A) Negative 08/02/19 13:31 EDT [facility] [facility] Swab VAGINAL STRUCTURE / Unknown Swab / Unknown 08/01/2023 16:31 EDT 08/01/2023 16:38 EDT Leesa Norwood PA-C MICROBIOLOGY - GE NERAL ORDERABLES Performing Organization Address [facility] Co de Phone Number [facility] [address] [place] [address] * (ABNORMAL) POCT GLUCOSE, INTERFACED (08/01/2023 11:24 EDT) Glucose, POC 169(H) 70 - 100 mg/dL 08/01/2023 11:25 EDT [facility] HN LAB POC COMMENT (GLUCOSE) Test Performed by Nursing Services 08/01/2023 11:25 EDT [facility] Blood CAPILLARY BLOOD / Unknown 08/01/2023 11:24 EDT 08/01/2023 11:25 EDT Logan Kayesler DO POINT OF CARE TEST O RDERABLES Performing Organization Address [facility] Co de Phone Number [facility] [address] [place] [address] * (ABNORMAL) POCT GLUCOSE, INTERFACED (08/01/2023 7:03 EDT) Glucose, POC 137(H) 70 - 100 mg/dL 08/01/2023 7:04 EDT [facility] HN LAB POC COMMENT (GLUCOSE) Test Performed by Nursing Services 08/01/2023 7:04 EDT [facility] Blood CAPILLARY BLOOD / Unknown 08/01/2023 7:03 EDT 08/01/2023 7:04 EDT Logan Mirelesler DO POINT OF CARE TEST O RDERABLES Performing Organization Address [facility] de Phone Number [facility] [address] [place] [address] * (ABNORMAL) COMPLETE BLOOD COUNT AND DIFFERENTIAL (08/01/2023 6:15 EDT) WBC 9.42 4.00 - 12.40 K/cmm 08/01/2023 6:53 EDT [facility] RBC 3.04(L) 3.86 - 5.04 M/cmm 08/01/2023 6:53 EDT [facility] Hemoglobin 8.6(L) 11.6 - 15.2 g/dL 08/01/2023 6:53 EDT [facility] HCT 26.1(L) 34.9 - 44.4 % 08/01/2023 6:53 EDT [facility] MCV 86 81 - 98 fL 08/01/2023 6:53 [facility] MCH 28.3 26.7 - 33.3 pg 08/01/2023 6:53 [facility] MCHC 33.0 32.1 - 35.9 g/dL 08/01/2023 6:53 [facility] RDW-CV 13.8 <14.7 % 08/01/2023 6:53 [facility] RDW-SD 43.4 <50.4 fl 08/01/2023 6:53 [facility] PLT 355 141 - 377 K/cmm 08/01/2023 6:53 [facility] MPV 9.8 9.5 - 12.7 fL 08/01/2023 6:53 [facility] % Neutrophils 66.2 % 08/01/2023 6:53 [facility] % Lymphocytes 23.2 % 08/01/2023 6:53 [facility] % Monocytes 6.5 % 08/01/2023 6:53 [facility] % Eosinophils 2.3 % 08/01/2023 6:53 [facility] % Basophils 0.4 % 08/01/2023 6:53 [facility] % Immature Grans 1.4 % 08/01/19 6:53 [facility] Absolute Neutrophils 6.23 2.20 - 8.85 K/cmm 08/01/2023 6:53 [facility] Absolute Lymphocytes 2.19 1.09 - 3.30 K/cmm 08/01/2023 6:53 [facility] Absolute Monocytes 0.61 0.10 - 0.80 K/cmm 08/01/2023 6:53 [facility] Absolute Eosinophils 0.22 0.03 - 0.61 K/cmm 08/01/2023 6:53 [facility] ABS Basophils 0.04 0.01 - 0.11 K/cmm 08/01/2023 6:53 [facility] Absolute Immature Grans 0.13(H) 0.00 - 0.06 K/cmm 08/01/2023 6:53 EDT [facility] Type of Differential: Auto 08/01/2023 6:53 [facility] Blood VENOUS BLOOD / Unknown Venipuncture / Unknown 08/01/2023 6:15 EDT 08/01/2023 6:35 EDT Joan Menon MD PACKAGES & DNA PROBE ORDERABLES [facility] [address] [place] [address] * (ABNORMAL) BASIC METABOLIC PANEL (BMP) (08/01/2023 6:15 EDT) Sodium 136 136 - 145 mmol/L 08/01/2023 7:10 [facility] Potassium 4.6 3.5 - 5.0 mmol/L 08/01/2023 7:10 [facility] Chloride 101 96 - 110 mmol/L 08/01/2023 7:10 [facility] CO2 Total 21(L) 22 - 32 mmol/L 08/01/2023 7:10 [facility] Anion Gap 14 5 - 14 mmol/L 08/01/2023 7:10 [facility] Glucose 132(H) 70 - 99 mg/dl 08/01/2023 7:10 [facility] Calcium 9.7 8.5 - 10.5 mg/dL 08/01/2023 7:10 [facility] BUN 18 10 - 26 mg/dL 08/01/2023 7:10 [facility] Creatinine 0.54 0.52 - 1.04 mg/dL 08/01/2023 7:10 [facility] eGFR 111 >60 mL/min/1.73 m2 08/01/2023 7:10 [facility] Blood VENOUS BLOOD / Unknown Venipuncture / Unknown 08/01/2023 6:15 EDT 08/01/2023 6:39 EDT Joan Menon MD CHEMISTRY & BLOOD GA S ORDERABLES Performing Organization Address [facility]/ZIP Co de Phone Number [facility] [address] [place] [address] * (ABNORMAL) POCT GLUCOSE, INTERFACED (08/01/2023 4:07 EDT) Glucose, POC 153(H) 70 - 100 mg/dL 08/01/2023 4:09 EDT [facility] HN LAB POC COMMENT (GLUCOSE) Test Performed by Nursing Services 08/01/2023 4:09 EDT [facility] Blood CAPILLARY BLOOD / Unknown 08/01/2023 4:07 EDT 08/01/2023 4:09 EDT Logan Ojeda DO POINT OF CARE TEST O RDERABLES Performing Organization Address [facility] Co de Phone Number [facility] [address] [place] [address] * (ABNORMAL) POCT GLUCOSE, INTERFACED (07/31/2023 21:31 EDT) Glucose, POC 178(H) 70 - 100 mg/dL 07/31/2023 21:31 EDT [facility] HN LAB POC COMMENT (GLUCOSE) Test Performed by Nursing Services 07/31/2023 21:31 EDT [facility] Blood CAPILLARY BLOOD / Unknown 07/31/2023 21:31 EDT 07/31/2023 21:31 EDT Moo Monique MD POINT OF CARE TEST ORDERABLES Performing Organization Address [facility] Co de Phone Number [facility] [address] [place] [address] * (ABNORMAL) POCT GLUCOSE, INTERFACED (07/31/2023 18:06 EDT) Glucose, POC 144(H) 70 - 100 mg/dL 07/31/2023 18:08 EDT [facility] HN LAB POC COMMENT (GLUCOSE) Test Performed by Nursing Services 07/31/2023 18:08 EDT [facility] Blood CAPILLARY BLOOD / Unknown 07/31/2023 18:06 EDT 07/31/2023 18:08 EDT Moo Monique MD POINT OF CARE TEST ORDERABLES Performing Organization Address [facility] Co de Phone Number [facility] [address] [place] [address] * (ABNORMAL) POCT GLUCOSE, INTERFACED (07/31/2023 14:33 EDT) Glucose, POC 125(H) 70 - 100 mg/dL 07/31/2023 14:34 EDT [facility] HN LAB POC COMMENT (GLUCOSE) Test Performed by Nursing Services 07/31/2023 14:34 EDT [facility] Blood CAPILLARY BLOOD / Unknown 07/31/2023 14:33 EDT 07/31/2023 14:34 EDT Logan Ojeda DO POINT OF CARE TEST O RDERABLES Performing Organization Address [facility] Co de Phone Number [facility] [address] [place] [address] * (ABNORMAL) POCT GLUCOSE, INTERFACED (07/31/2023 12:30 EDT) Glucose, POC 178(H) 70 - 100 mg/dL 07/31/2023 12:32 EDT [facility] HN LAB POC COMMENT (GLUCOSE) Test Performed by Nursing Services 07/31/2023 12:32 EDT [facility] Blood CAPILLARY BLOOD / Unknown 07/31/2023 12:30 EDT 07/31/2023 12:32 EDT Logan Ojeda DO POINT OF CARE TEST O RDERABLES [facility] [address] [place] [address] * (ABNORMAL) POCT GLUCOSE, INTERFACED (07/31/2023 9:57 EDT) Glucose, POC 176(H) 70 - 100 mg/dL 07/31/2023 9:58 EDT [facility] HN LAB POC COMMENT (GLUCOSE) Test Performed by Nursing Services 07/31/2023 9:58 EDT [facility] Blood CAPILLARY BLOOD / Unknown 07/31/2023 9:57 EDT 07/31/2023 9:58 EDT Moo Monique MD POINT OF CARE TEST ORDERABLES Performing Organization Address City/[facility]/ZIP Co de Phone Number [facility] [address] [place] [address] * (ABNORMAL) POCT GLUCOSE, INTERFACED (07/31/2023 8:48 EDT) Glucose, POC 151(H) 70 - 100 mg/dL 07/31/2023 8:49 EDT [facility] HN LAB POC COMMENT (GLUCOSE) Test Performed by Nursing Services 07/31/2023 8:49 EDT [facility] Blood CAPILLARY BLOOD / Unknown 07/31/2023 8:48 EDT 07/31/2023 8:49 EDT Moo Monique MD POINT OF CARE TEST ORDERABLES [facility] [address] [place] [address] * (ABNORMAL) POCT GLUCOSE, INTERFACED (07/30/2023 21:20 EDT) Glucose, POC 187(H) 70 - 100 mg/dL 07/30/2023 21:25 EDT [facility] HN LAB POC COMMENT (GLUCOSE) Test Performed by Nursing Services 07/30/2023 21:25 EDT [facility] Blood CAPILLARY BLOOD / Unknown 07/30/2023 21:20 EDT 07/30/2023 21:25 EDT Nabila English NP POINT OF CARE TEST ORDERABLES [facility] [address], [place] [phone] * (ABNORMAL) POCT GLUCOSE, INTERFACED (07/30/2023 17:01 EDT) Glucose, POC 176(H) 70 - 100 mg/dL 07/30/2023 17:02 EDT [facility] HN LAB POC COMMENT (GLUCOSE) Test Performed by Nursing Services 07/30/2023 17:02 EDT [facility] Blood CAPILLARY BLOOD / Unknown 07/30/2023 17:01 EDT 07/30/2023 17:02 EDT Nabila English NP POINT OF CARE TEST ORDERABLES Performing Organization Address City/[facility]/ZIP Co de Phone Number [facility] [address], [place] [phone] * (ABNORMAL) POCT GLUCOSE, INTERFACED (07/30/2023 12:40 EDT) Glucose, POC 183(H) 70 - 100 mg/dL 07/30/2023 12:41 EDT [facility] HN LAB POC COMMENT (GLUCOSE) Test Performed by Nursing Services 07/30/2023 12:41 EDT [facility] Blood CAPILLARY BLOOD / Unknown 07/30/2023 12:40 EDT 07/30/2023 12:41 EDT Tai Azar MD POINT OF CARE TEST ORDERABLES [facility] [address] [place] [phone] * (ABNORMAL) POCT GLUCOSE, INTERFACED (07/30/2023 8:22 EDT) Glucose, POC 177(H) 70 - 100 mg/dL 07/30/2023 8:24 EDT [facility] HN LAB POC COMMENT (GLUCOSE) Test Performed by Nursing Services 07/30/2023 8:24 EDT [facility] Blood CAPILLARY BLOOD / Unknown 07/30/2023 8:22 EDT 07/30/2023 8:24 EDT Tai Azar MD POINT OF CARE TEST ORDERABLES Performing Organization Address City/[facility]/ZIP Co de Phone Number [facility] [address] [place] [phone] * (ABNORMAL) POCT GLUCOSE, INTERFACED (07/29/2023 20:14 EDT) Glucose, POC 166(H) 70 - 100 mg/dL 07/29/2023 20:15 EDT [facility] HN LAB POC COMMENT (GLUCOSE) Test Performed by Nursing Services 07/29/2023 20:15 EDT [facility] Blood CAPILLARY BLOOD / Unknown 07/29/2023 20:14 EDT 07/29/2023 20:15 EDT Tai Azar MD POINT OF CARE TEST ORDERABLES [facility] [address] [place] [phone] * (ABNORMAL) POCT GLUCOSE, INTERFACED (07/29/2023 18:13 EDT) Glucose, POC 188(H) 70 - 100 mg/dL 07/29/2023 18:16 EDT [facility] HN LAB POC COMMENT (GLUCOSE) Test Performed by Nursing Services 07/29/2023 18:16 EDT [facility] Blood CAPILLARY BLOOD / Unknown 07/29/2023 18:13 EDT 07/29/2023 18:16 EDT Nabila English NP POINT OF CARE TEST ORDERABLES [facility] [address] [place] [address] * POC US VAT LINE PLACEMENT (07/29/2023 15:04 EDT) Narrative 07/29/2023 15:04 EDT This is a non-reportable exam. Moo Monique MD IMG US POC ORDERABL ES * (ABNORMAL) POCT GLUCOSE, INTERFACED (07/29/2023 11:20 EDT) Glucose, POC 173(H) 70 - 100 mg/dL 07/29/2023 11:22 EDT [facility] HN LAB POC COMMENT (GLUCOSE) Test Performed by Nursing Services 07/29/2023 11:22 EDT [facility] Blood CAPILLARY BLOOD / Unknown 07/29/2023 11:20 EDT 07/29/2023 11:22 EDT Tai Azar MD POINT OF CARE TEST ORDERABLES Performing Organization Address City/[facility]/ZIP Co de Phone Number [facility] [address], [place] [phone] * (ABNORMAL) COMPLETE BLOOD COUNT AND DIFFERENTIAL (07/29/2023 7:50 EDT) WBC 6.95 4.00 - 12.40 K/cmm 07/29/2023 8:20 EDT [facility] RBC 3.02(L) 3.86 - 5.04 M/cmm 07/29/2023 8:20 EDT [facility] Hemoglobin 8.5(L) 11.6 - 15.2 g/dL 07/29/2023 8:20 [facility] HCT 25.0(L) 34.9 - 44.4 % 07/29/2023 8:20 [facility] MCV 83 81 - 98 fL 07/29/2023 8:20 [facility] MCH 28.1 26.7 - 33.3 pg 07/29/2023 8:20 [facility] MCHC 34.0 32.1 - 35.9 g/dL 07/29/2023 8:20 [facility] RDW-CV 13.8 <14.7 % 07/29/2023 8:20 [facility] RDW-SD 41.6 <50.4 fl 07/29/2023 8:20 [facility] PLT 337 141 - 377 K/cmm 07/29/2023 8:20 [facility] MPV 9.9 9.5 - 12.7 fL 07/29/2023 8:20 [facility] % Neutrophils 54.0 % 07/29/2023 8:20 [facility] % Lymphocytes 32.7 % 07/29/2023 8:20 [facility] % Monocytes 8.2 % 07/29/2023 8:20 [facility] % Eosinophils 2.6 % 07/29/2023 8:20 [facility] % Basophils 0.9 % 07/29/2023 8:20 [facility] % Immature Grans 1.6 % 07/29/19 8:20 [facility] Absolute Neutrophils 3.76 2.20 - 8.85 K/cmm 07/29/2023 8:20 [facility] Absolute Lymphocytes 2.27 1.09 - 3.30 K/cmm 07/29/2023 8:20 [facility] Absolute Monocytes 0.57 0.10 - 0.80 K/cmm 07/29/2023 8:20 [facility] Absolute Eosinophils 0.18 0.03 - 0.61 K/cmm 07/29/2023 8:20 [facility] ABS Basophils 0.06 0.01 - 0.11 K/cm 07/29/2023 8:20 [facility] Absolute Immature Grans 0.11(H) 0.00 - 0.06 /[facility] 07/29/2023 8:20 [facility] Type of Differential: Auto 07/29/2023 8:20 [facility] Blood VENOUS BLOOD / Unknown Venipuncture / Unknown 07/29/2023 7:50 EDT 07/29/2023 8:01 EDT Joan Menon MD PACKAGES & DNA PROBE ORDERABLES [facility] [address] [place] [address] * (ABNORMAL) BASIC METABOLIC PANEL (BMP) (07/29/2023 7:50 EDT) Sodium 130(L) 136 - 145 mmol/L 07/29/2023 8:36 [facility] Potassium 4.3 3.5 - 5.0 mmol/L 07/29/2023 8:36 [facility] Chloride 100 96 - 110 mmol/L 07/29/2023 8:36 [facility] CO2 Total 17(L) 22 - 32 mmol/L 07/29/2023 8:36 [facility] Anion Gap 13 5 - 14 mmol/L 07/29/2023 8:36 [facility] Glucose 218(H) 70 - 99 mg/dl 07/29/2023 8:36 [facility] Calcium 9.5 8.5 - 10.5 mg/dL 07/29/2023 8:36 [facility] BUN 20 10 - 26 mg/dL 07/29/2023 8:36 [facility] Creatinine 0.45(L) 0.52 - 1.04 mg/dL 07/29/2023 8:36 [facility] eGFR 116 >60 mL/min/1.73 m2 07/29/2023 8:36 EDT [facility] Blood VENOUS BLOOD / Unknown Venipuncture / Unknown 07/29/2023 7:50 EDT 07/29/2023 8:02 EDT Joan Menon MD CHEMISTRY & BLOOD GA S ORDERABLES Performing Organization Address City/[facility]/ZIP Co de Phone Number [facility] [address] [place] [address] * (ABNORMAL) POCT GLUCOSE, INTERFACED (07/29/2023 7:11 EDT) Glucose, POC 184(H) 70 - 100 mg/dL 07/29/2023 7:12 EDT [facility] HN LAB POC COMMENT (GLUCOSE) Test Performed by Nursing Services 07/29/2023 7:12 EDT [facility] Blood CAPILLARY BLOOD / Unknown 07/29/2023 7:11 EDT 07/29/2023 7:12 EDT Nabila English NP POINT OF CARE TEST ORDERABLES Performing Organization Address City/[facility]/ZIP Co de Phone Number [facility] [address] [place] [address] * (ABNORMAL) POCT GLUCOSE, INTERFACED (07/28/2023 21:47 EDT) Glucose, POC 159(H) 70 - 100 mg/dL 07/28/2023 21:48 EDT [facility] HN LAB POC COMMENT (GLUCOSE) Test Performed by Nursing Services 07/28/2023 21:48 EDT [facility] Blood CAPILLARY BLOOD / Unknown 07/28/2023 21:47 EDT 07/28/2023 21:48 EDT Nabila English NP POINT OF CARE TEST ORDERABLES Performing Organization Address City/[facility]/ZIP Co de Phone Number [facility] [address] [place] [phone] * (ABNORMAL) POCT GLUCOSE, INTERFACED (07/28/2023 18:03 EDT) Glucose, POC 139(H) 70 - 100 mg/dL 07/28/2023 18:04 EDT [facility] HN LAB POC COMMENT (GLUCOSE) Test Performed by Nursing Services 07/28/2023 18:04 EDT [facility] Blood CAPILLARY BLOOD / Unknown 07/28/2023 18:03 EDT 07/28/2023 18:04 EDT Nabila English NP POINT OF CARE TEST ORDERABLES [facility] [address] [place] [address] * (ABNORMAL) POCT GLUCOSE, INTERFACED (07/28/2023 11:49 EDT) Glucose, POC 129(H) 70 - 100 mg/dL 07/28/2023 11:50 EDT [facility] HN LAB POC COMMENT (GLUCOSE) Test Performed by Nursing Services 07/28/2023 11:50 EDT [facility] Blood CAPILLARY BLOOD / Unknown 07/28/2023 11:49 EDT 07/28/2023 11:50 EDT Tai Azar MD POINT OF CARE TEST ORDERABLES [facility] [address] [place] [address] * (ABNORMAL) POCT GLUCOSE, INTERFACED (07/28/2023 7:31 EDT) Glucose, POC 127(H) 70 - 100 mg/dL 07/28/2023 7:32 EDT [facility] HN LAB POC COMMENT (GLUCOSE) Test Performed by Nursing Services 07/28/2023 7:32 EDT [facility] Blood CAPILLARY BLOOD / Unknown 07/28/2023 7:31 EDT 07/28/2023 7:32 EDT Tai Azar MD POINT OF CARE TEST ORDERABLES [facility] [address] [place] [address] * (ABNORMAL) POCT GLUCOSE, INTERFACED (07/27/2023 21:56 EDT) Glucose, POC 149(H) 70 - 100 mg/dL 07/27/2023 21:57 EDT [facility] HN LAB POC COMMENT (GLUCOSE) Test Performed by Nursing Services 07/27/2023 21:57 EDT [facility] Blood CAPILLARY BLOOD / Unknown 07/27/2023 21:56 EDT 07/27/2023 21:57 EDT Nabila English NP POINT OF CARE TEST ORDERABLES Performing Organization Address [facility]/ZIP Co de Phone Number [facility] [address] [place] [address] * (ABNORMAL) POCT GLUCOSE, INTERFACED (07/27/2023 17:51 EDT) Glucose, POC 165(H) 70 - 100 mg/dL 07/27/2023 17:53 EDT [facility] HN LAB POC COMMENT (GLUCOSE) Test Performed by Nursing Services 07/27/2023 17:53 EDT [facility] Blood CAPILLARY BLOOD / Unknown 07/27/2023 17:51 EDT 07/27/2023 17:53 EDT Nabila English NP POINT OF CARE TEST ORDERABLES Performing Organization Address [facility]/ZIP Co de Phone Number [facility] [address] [place] [address] * (ABNORMAL) POCT GLUCOSE, INTERFACED (07/27/2023 11:48 EDT) Glucose, POC 118(H) 70 - 100 mg/dL 07/27/2023 11:49 EDT [facility] HN LAB POC COMMENT (GLUCOSE) Test Performed by Nursing Services 07/27/2023 11:49 EDT [facility] Blood CAPILLARY BLOOD / Unknown 07/27/2023 11:48 EDT 07/27/2023 11:49 EDT Tai Azar MD POINT OF CARE TEST ORDERABLES [facility] [address] [place] [address] * (ABNORMAL) POCT GLUCOSE, INTERFACED (07/27/2023 8:13 EDT) Glucose, POC 133(H) 70 - 100 mg/dL 07/27/2023 8:15 EDT [facility] HN LAB POC COMMENT (GLUCOSE) Test Performed by Nursing Services 07/27/2023 8:15 EDT [facility] Blood CAPILLARY BLOOD / Unknown 07/27/2023 8:13 EDT 07/27/2023 8:14 EDT Tai Azar MD POINT OF CARE TEST ORDERABLES Performing Organization Address City/[facility]/ZIP Co de Phone Number [facility] [address] [place] [phone] * (ABNORMAL) POCT GLUCOSE, INTERFACED (07/26/2023 21:41 EDT) Glucose, POC 173(H) 70 - 100 mg/dL 07/26/2023 21:42 EDT [facility] HN LAB POC COMMENT (GLUCOSE) Test Performed by Nursing Services 07/26/2023 21:42 EDT [facility] Blood CAPILLARY BLOOD / Unknown 07/26/2023 21:41 EDT 07/26/2023 21:42 EDT Nabila English NP POINT OF CARE TEST ORDERABLES [facility] [address] [place] [address] * (ABNORMAL) POCT GLUCOSE, INTERFACED (07/26/2023 18:08 EDT) Glucose, POC 177(H) 70 - 100 mg/dL 07/26/2023 18:09 EDT [facility] HN LAB POC COMMENT (GLUCOSE) Test Performed by Nursing Services 07/26/2023 18:09 EDT [facility] Blood CAPILLARY BLOOD / Unknown 07/26/2023 18:08 EDT 07/26/2023 18:09 EDT Nabila English NP POINT OF CARE TEST ORDERABLES Performing Organization Address City/[facility]/ZIP Co de Phone Number [facility] [address] [place] [address] * (ABNORMAL) POCT GLUCOSE, INTERFACED (07/26/2023 11:26 EDT) Glucose, POC 131(H) 70 - 100 mg/dL 07/26/2023 11:27 EDT [facility] HN LAB POC COMMENT (GLUCOSE) Test Performed by Nursing Services 07/26/2023 11:27 EDT [facility] Blood CAPILLARY BLOOD / Unknown 07/26/2023 11:26 EDT 07/26/2023 11:27 EDT Tai Azar MD POINT OF CARE TEST ORDERABLES [facility] [address], [place] [phone] * (ABNORMAL) POCT GLUCOSE, INTERFACED (07/26/2023 7:40 EDT) Glucose, POC 146(H) 70 - 100 mg/dL 07/26/2023 7:42 EDT [facility] HN LAB POC COMMENT (GLUCOSE) Test Performed by Nursing Services 07/26/2023 7:42 EDT [facility] Blood CAPILLARY BLOOD / Unknown 07/26/2023 7:40 EDT 07/26/2023 7:42 EDT Tai Azar MD POINT OF CARE TEST ORDERABLES Performing Organization Address [facility] Co de Phone Number [facility] [address] [place] [address] * (ABNORMAL) POCT GLUCOSE, INTERFACED (07/25/2023 20:42 EDT) Glucose, POC 159(H) 70 - 100 mg/dL 07/25/2023 20:43 EDT [facility] HN LAB POC COMMENT (GLUCOSE) Test Performed by Nursing Services 07/25/2023 20:43 EDT [facility] Blood CAPILLARY BLOOD / Unknown 07/25/2023 20:42 EDT 07/25/2023 20:43 EDT Tai Azar MD POINT OF CARE TEST ORDERABLES Performing Organization Address [facility] de Phone Number [facility] [address] [place] [address] * (ABNORMAL) POCT GLUCOSE, INTERFACED (07/25/2023 18:15 EDT) Glucose, POC 142(H) 70 - 100 mg/dL 07/25/2023 18:16 EDT [facility] HN LAB POC COMMENT (GLUCOSE) Test Performed by Nursing Services 07/25/2023 18:16 EDT [facility] Blood CAPILLARY BLOOD / Unknown 07/25/2023 18:15 EDT 07/25/2023 18:16 EDT Nabila English NP POINT OF CARE TEST ORDERABLES Performing Organization Address City/[facility]/ZIP Co de Phone Number [facility] [address] [place] [address] * ECG REPORT - SCANNED (07/25/2023 13:55 EDT) 07/25/2023 13:5 5 EDT Scan 2 Nursing Coordinator PROCEDURE/MINOR VI GICAL ORDERABLES * (ABNORMAL) POCT GLUCOSE, INTERFACED (07/25/2023 11:22 EDT) Glucose, POC 144(H) 70 - 100 mg/dL 07/25/2023 11:24 EDT [facility] HN LAB POC COMMENT (GLUCOSE) Test Performed by Nursing Services 07/25/2023 11:24 EDT [facility] Blood CAPILLARY BLOOD / Unknown 07/25/2023 11:22 EDT 07/25/2023 11:24 EDT Tai Azar MD POINT OF CARE TEST ORDERABLES Performing Organization Address [facility]/ZIP Co de Phone Number [facility] [address] [place] [address] * (ABNORMAL) COMPLETE BLOOD COUNT AND DIFFERENTIAL (07/25/2023 8:59 EDT) WBC 6.96 4.00 - 12.40 K/cmm 07/25/2023 9:41 T [facility] RBC 3.10(L) 3.86 - 5.04 M/cmm 07/25/2023 9:41 [facility] Hemoglobin 8.9(L) 11.6 - 15.2 g/dL 07/25/2023 9:41 [facility] HCT 26.5(L) 34.9 - 44.4 % 07/25/2023 9:41 [facility] MCV 86 81 - 98 fL 07/25/2023 9:41 T [facility] MCH 28.7 26.7 - 33.3 pg 07/25/2023 9:41 [facility] MCHC 33.6 32.1 - 35.9 g/dL 07/25/2023 9:41 [facility] RDW-CV 14.3 <14.7 % 07/25/2023 9:41 [facility] RDW-SD 44.6 <50.4 fl 07/25/2023 9:41 [facility] PLT 374 141 - 377 K/cmm 07/25/2023 9:41 [facility] MPV 9.9 9.5 - 12.7 fL 07/25/2023 9:41 [facility] % Neutrophils 54.6 % 07/25/2023 9:41 [facility] % Lymphocytes 27.6 % 07/25/2023 9:41 [facility] % Monocytes 9.9 % 07/25/2023 9:41 [facility] % Eosinophils 3.2 % 07/25/2023 9:41 [facility] % Basophils 1.1 % 07/25/2023 9:41 [facility] % Immature Grans 3.6 % 07/25/19 9:41 [facility] Absolute Neutrophils 3.80 2.20 - 8.85 K/cmm 07/25/2023 9:41 [facility] Absolute Lymphocytes 1.92 1.09 - 3.30 K/cmm 07/25/2023 9:41 [facility] Absolute Monocytes 0.69 0.10 - 0.80 K/cmm 07/25/2023 9:41 [facility] Absolute Eosinophils 0.22 0.03 - 0.61 K/cmm 07/25/2023 9:41 [facility] ABS Basophils 0.08 0.01 - 0.11 K/cmm 07/25/2023 9:41 [facility] Absolute Immature Grans 0.25(H) 0.00 - 0.06 K/cmm 07/25/2023 9:41 EDT [facility] Type of Differential: Auto 07/25/2023 9:41 [facility] Blood VENOUS BLOOD / Unknown Venipuncture / Unknown 07/25/2023 8:59 EDT 07/25/2023 9:29 EDT Joan Menon MD PACKAGES & DNA PROBE ORDERABLES [facility] [address], [place] [phone] * (ABNORMAL) BASIC METABOLIC PANEL (BMP) (07/25/2023 8:58 EDT) Sodium 135(L) 136 - 145 mmol/L 07/25/2023 10:17 [facility] Potassium 3.9 3.5 - 5.0 mmol/L 07/25/2023 10:17 [facility] Chloride 102 96 - 110 mmol/L 07/25/2023 10:17 [facility] CO2 Total 21(L) 22 - 32 mmol/L 07/25/2023 10:17 [facility] Anion Gap 12 5 - 14 mmol/L 07/25/2023 10:17 [facility] Glucose 119(H) 70 - 99 mg/dl 07/25/2023 10:17 [facility] Calcium 9.3 8.5 - 10.5 mg/dL 07/25/2023 10:17 [facility] BUN 18 10 - 26 mg/dL 07/25/2023 10:17 [facility] Creatinine 0.49(L) 0.52 - 1.04 mg/dL 07/25/2023 10:17 [facility] eGFR 113 >60 mL/min/1.73 m2 07/25/2023 10:17 [facility] Blood VENOUS BLOOD / Unknown Venipuncture / Unknown 07/25/2023 8:58 EDT 07/25/2023 9:36 EDT Joan Menon MD CHEMISTRY & BLOOD GA S ORDERABLES [facility] [address] [place] [address] * (ABNORMAL) VITAMIN D (25,OH) (07/25/2023 8:58 EDT) 25OH Vitamin D Tot 22(L) 30 - 100 ng/mL 07/25/2023 11:37 EDT [facility] Comment: Vitamin D 25,OH Interpretive Ranges: Deficiency: ??<10.0 ng/mL Insufficiency: ??10.0 - 30.0 ng/mL Sufficiency: ??30.0 - 100.0 ng/mL Toxicity: ??>100.0 ng/mL Blood VENOUS BLOOD / Unknown Venipuncture / Unknown 07/25/2023 8:58 EDT 07/25/2023 9:36 EDT Tiff Aviles MD CHEMISTRY & BLOOD GA S ORDERABLES Performing Organization Address City/[facility]/ZIP Co de Phone Number [facility] [address] [place] [phone] * (ABNORMAL) POCT GLUCOSE, INTERFACED (07/25/2023 6:48 EDT) Glucose, POC 131(H) 70 - 100 mg/dL 07/25/2023 6:49 EDT [facility] HN LAB POC COMMENT (GLUCOSE) Test Performed by Nursing Services 07/25/2023 6:49 EDT [facility] Blood CAPILLARY BLOOD / Unknown 07/25/2023 6:48 EDT 07/25/2023 6:49 EDT Nabila English PALS SPECIALIST POINT OF CARE TEST ORDERABLES [facility] [address] [place] [address] * (ABNORMAL) POCT GLUCOSE, INTERFACED (07/24/2023 20:46 EDT) Glucose, POC 142(H) 70 - 100 mg/dL 07/24/2023 20:47 EDT [facility] HN LAB POC COMMENT (GLUCOSE) Test Performed by Nursing Services 07/24/2023 20:47 EDT [facility] Blood CAPILLARY BLOOD / Unknown 07/24/2023 20:46 EDT 07/24/2023 20:47 EDT Tai Azar MD POINT OF CARE TEST ORDERABLES [facility] [address], [place] [phone] * (ABNORMAL) POCT GLUCOSE, INTERFACED (07/24/2023 18:09 EDT) Glucose, POC 133(H) 70 - 100 mg/dL 07/24/2023 18:10 EDT [facility] HN LAB POC COMMENT (GLUCOSE) Test Performed by Nursing Services 07/24/2023 18:10 EDT [facility] Blood CAPILLARY BLOOD / Unknown 07/24/2023 18:09 EDT 07/24/2023 18:10 EDT Nabila English NP POINT OF CARE TEST ORDERABLES [facility] [address], [place] [address] * (ABNORMAL) POCT GLUCOSE, INTERFACED (07/24/2023 11:37 EDT) Glucose, POC 150(H) 70 - 100 mg/dL 07/24/2023 11:38 EDT [facility] HN LAB POC COMMENT (GLUCOSE) Test Performed by Nursing Services 07/24/2023 11:38 EDT [facility] Blood CAPILLARY BLOOD / Unknown 07/24/2023 11:37 EDT 07/24/2023 11:38 EDT Tai Azar MD POINT OF CARE TEST ORDERABLES Performing Organization Address City/[facility]/ZIP Co de Phone Number [facility] [address] [place] [address] * (ABNORMAL) POCT GLUCOSE, INTERFACED (07/24/2023 7:53 EDT) Glucose, POC 173(H) 70 - 100 mg/dL 07/24/2023 7:54 EDT [facility] HN LAB POC COMMENT (GLUCOSE) Test Performed by Nursing Services 07/24/2023 7:54 EDT [facility] Blood CAPILLARY BLOOD / Unknown 07/24/2023 7:53 EDT 07/24/2023 7:54 EDT Tai Azar MD POINT OF CARE TEST ORDERABLES Performing Organization Address [facility]/ZIP Co de Phone Number [facility] [address] [place] [address] * (ABNORMAL) POCT GLUCOSE, INTERFACED (07/23/2023 20:35 EDT) Glucose, POC 164(H) 70 - 100 mg/dL 07/23/2023 20:37 EDT [facility] HN LAB POC COMMENT (GLUCOSE) Test Performed by Nursing Services 07/23/2023 20:37 EDT [facility] Blood CAPILLARY BLOOD / Unknown 07/23/2023 20:35 EDT 07/23/2023 20:37 EDT Tai Azar MD POINT OF CARE TEST ORDERABLES Performing Organization Address City/[facility]/ZIP Co de Phone Number [facility] [address] [place] [address] * (ABNORMAL) POCT GLUCOSE, INTERFACED (07/23/2023 17:01 EDT) Glucose, POC 211(H) 70 - 100 mg/dL 07/23/2023 17:03 EDT [facility] HN LAB POC COMMENT (GLUCOSE) Test Performed by Nursing Services 07/23/2023 17:03 EDT [facility] Blood CAPILLARY BLOOD / Unknown 07/23/2023 17:01 EDT 07/23/2023 17:03 EDT Nabila Egnlish NP POINT OF CARE TEST ORDERABLES Performing Organization Address City/[facility]/ZIP Co de Phone Number [facility] [address] [place] [address] * (ABNORMAL) POCT GLUCOSE, INTERFACED (07/23/2023 12:56 EDT) Glucose, POC 150(H) 70 - 100 mg/dL 07/23/2023 12:58 EDT [facility] HN LAB POC COMMENT (GLUCOSE) Test Performed by Nursing Services 07/23/2023 12:58 EDT [facility] Blood CAPILLARY BLOOD / Unknown 07/23/2023 12:56 EDT 07/23/2023 12:58 EDT Tai Azar MD POINT OF CARE TEST ORDERABLES [facility] [address] [place] [phone] * (ABNORMAL) POCT GLUCOSE, INTERFACED (07/23/2023 9:23 EDT) Glucose, POC 134(H) 70 - 100 mg/dL 07/23/2023 9:24 EDT [facility] HN LAB POC COMMENT (GLUCOSE) Test Performed by Nursing Services 07/23/2023 9:24 EDT [facility] Blood CAPILLARY BLOOD / Unknown 07/23/2023 9:23 EDT 07/23/2023 9:24 EDT Tai Azar MD POINT OF CARE TEST ORDERABLES Performing Organization Address City/[facility]/ZIP Co de Phone Number [facility] [address], [place] [phone] * (ABNORMAL) POCT GLUCOSE, INTERFACED (07/22/2023 22:41 EDT) Glucose, POC 179(H) 70 - 100 mg/dL 07/22/2023 22:42 EDT [facility] HN LAB POC COMMENT (GLUCOSE) Test Performed by Nursing Services 07/22/2023 22:42 EDT [facility] Blood CAPILLARY BLOOD / Unknown 07/22/2023 22:41 EDT 07/22/2023 22:42 EDT Nabila English NP POINT OF CARE TEST ORDERABLES Performing Organization Address [facility] Co de Phone Number [facility] [address], [place] [phone] * (ABNORMAL) POCT GLUCOSE, INTERFACED (07/22/2023 18:09 EDT) Glucose, POC 139(H) 70 - 100 mg/dL 07/22/2023 18:10 EDT [facility] HN LAB POC COMMENT (GLUCOSE) Test Performed by Nursing Services 07/22/2023 18:10 EDT [facility] Blood CAPILLARY BLOOD / Unknown 07/22/2023 18:09 EDT 07/22/2023 18:10 EDT Nabila English NP POINT OF CARE TEST ORDERABLES Performing Organization Address [facility] Co de Phone Number [facility] [address], [place] [phone] * TROPONIN I (07/22/2023 16:21 EDT) Troponin I (ng/mL) <0.034 <0.034 ng/mL 07/22/2023 17:12 EDT [facility] Comment:Turbid sample identi fied, interpret with caution as turbidity may affect result. Blood VENOUS BLOOD / Unknown Venipuncture / Unknown 07/22/2023 16:21 EDT 07/22/2023 16:24 EDT Narrative [facility] - 07/22/2023 17:12 EDT The results of this assay can be falsely lowered due to the consumption of Biotin. Zahira Veras MD CHEMISTRY & BLOOD G ORDERABLES Performing Organization Address [facility]/State/ZIP Co de Phone Number [facility] [address] [place] [address] * EKG 12-LEAD (07/22/2023 16:16 EDT) 07/22/2023 16:1 6 EDT Narrative [facility] EKG - 07/25/2023 13:47 EDT ? The ? Test Date: ?2023-07-22 Pat Name: ? DELLA BROWNING ? Department: ?? [facility] ? Room: ? B694 Gender: ? Female ? 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 [id number] : ?1970 ? Requested By: RITO RODRIGES Order Number: [id number] ? Reading : ?? KOURTNEY HERNÁNDEZ MD ? Measurements Intervals ?[place] ? Rate: ? 86 ? P: ?46 IA: ? 180 ?QRS: ?34 QRSD: ? 77 ? T: ?91 QT: ? 366 ? QTc: ?439 ? Interpretive Statements SINUS RHYTHM Nonspecific T wave abnormality Compared to ECG 07/03/2023 03:57:59 Ectopic beats no longer present I reviewed the tracing and have either agreed or edited the findings in this report. Electronically Signed On 07-25-2023 13:47:41 EDT by KOURTNEY HERNÁNDEZ MD. Procedure Note Kourtney Hernández MD - 07/25/2023 The Test Date: 2023-07-22 Pat Name: DELLA BROWNING Department: Derek Rivera Room: [facility] Gender: Female President Practicing Urologist: [id number] : 1970 Requested By: RITO RODRIGES Order Number: [id number] Reading MD: KOURTNEY HERNÁNDEZ MD Measurements Intervals [place] Rate: 86 P: 46 IA: 180 QRS: 34 QRSD: 77 T: 91 QT: 366 QTc: 439 Interpretive Statements SINUS RHYTHM Nonspecific T wave abnormality Compared to ECG 07/03/2023 03:57:59 Ectopic beats no longer present I reviewed the tracing and have either agreed or edited the findings inthis report. Electronically Signed On 07-25-2023 13:47:41 EDT by KOURTNEY AL. Zahira Veras MD CARDIAC ECG ORDERAB LES [facility] EKG * (ABNORMAL) POCT GLUCOSE, INTERFACED (07/22/2023 11:26 EDT) Glucose, POC 128(H) 70 - 100 mg/dL 07/22/2023 11:27 EDT [facility] HN LAB POC COMMENT (GLUCOSE) Test Performed by Nursing Services 07/22/2023 11:27 EDT [facility] Blood CAPILLARY BLOOD / Unknown 07/22/2023 11:26 EDT 07/22/2023 11:27 EDT Tai Azar MD POINT OF CARE TEST ORDERABLES [facility] [address] [place] [phone] * (ABNORMAL) POCT GLUCOSE, INTERFACED (07/22/2023 7:25 EDT) Glucose, POC 147(H) 70 - 100 mg/dL 07/22/2023 7:26 EDT [facility] HN LAB POC COMMENT (GLUCOSE) Test Performed by Nursing Services 07/22/2023 7:26 EDT [facility] Blood CAPILLARY BLOOD / Unknown 07/22/2023 7:25 EDT 07/22/2023 7:26 EDT Tai Azar MD POINT OF CARE TEST ORDERABLES Performing Organization Address [facility] de Phone Number [facility] [address] [place] [address] * (ABNORMAL) PHOSPHORUS (07/22/2023 6:51 EDT) Phosphorus 6.5(H) 2.5 - 4.5 mg/dL 07/22/2023 16:32 EDT [facility] Blood VENOUS BLOOD / Unknown Venipuncture / Unknown 07/22/2023 6:51 EDT 07/22/2023 7:06 EDT Zahira Veras MD CHEMISTRY & BLOOD G ORDERABLES Performing Organization Address [facility] de Phone Number [facility] [address] [place] [address] * MAGNESIUM (07/22/2023 6:51 EDT) Magnesium 1.7 1.7 - 2.8 mg/dL 07/22/2023 16:32 EDT [facility] Blood VENOUS BLOOD / Unknown Venipuncture / Unknown 07/22/2023 6:51 EDT 07/22/2023 7:06 EDT Zahira Veras MD CHEMISTRY & BLOOD G ORDERABLES Performing Organization Address [facility] de Phone Number [facility] [address] [place] [address] * (ABNORMAL) COMPLETE BLOOD COUNT AND DIFFERENTIAL (07/22/2023 6:51 EDT) WBC 7.68 4.00 - 12.40 K/cmm 07/22/2023 7:28 EDT [facility] RBC 3.11(L) 3.86 - 5.04 M/cmm 07/22/2023 7:28 EDT [facility] Hemoglobin 8.9(L) 11.6 - 15.2 g/dL 07/22/2023 7:28 [facility] HCT 26.7(L) 34.9 - 44.4 % 07/22/2023 7:28 [facility] MCV 86 81 - 98 fL 07/22/2023 7:28 [facility] MCH 28.6 26.7 - 33.3 pg 07/22/2023 7:28 [facility] MCHC 33.3 32.1 - 35.9 g/dL 07/22/2023 7:28 [facility] RDW-CV 14.5 <14.7 % 07/22/2023 7:28 [facility] RDW-SD 44.4 <50.4 fl 07/22/2023 7:28 [facility] PLT 390(H) 141 - 377 K/cmm 07/22/2023 7:28 [facility] MPV 9.9 9.5 - 12.7 fL 07/22/2023 7:28 [facility] % Neutrophils 58.2 % 07/22/2023 7:28 [facility] % Lymphocytes 23.8 % 07/22/2023 7:28 [facility] % Monocytes 9.8 % 07/22/2023 7:28 [facility] % Eosinophils 2.5 % 07/22/2023 7:28 [facility] % Basophils 0.8 % 07/22/2023 7:28 [facility] % Immature Grans 4.9 % 07/22/19 7:28 [facility] Absolute Neutrophils 4.47 2.20 - 8.85 K/cmm 07/22/2023 7:28 [facility] Absolute Lymphocytes 1.83 1.09 - 3.30 K/cmm 07/22/2023 7:28 [facility] Absolute Monocytes 0.75 0.10 - 0.80 K/cmm 07/22/2023 7:28 [facility] Absolute Eosinophils 0.19 0.03 - 0.61 K/cmm 07/22/2023 7:28 T [facility] ABS Basophils 0.06 0.01 - 0.11 K/cm 07/22/2023 7:28 [facility] Absolute Immature Grans 0.38(H) 0.00 - 0.06 K/cm 07/22/2023 7:28 [facility] Type of Differential: Auto 07/22/2023 7:28 [facility] Blood VENOUS BLOOD / Unknown Venipuncture / Unknown 07/22/2023 6:51 EDT 07/22/2023 7:06 EDT Joan Menon MD PACKAGES & DNA PROBE ORDERABLES [facility] [address] [place] [address] * (ABNORMAL) BASIC METABOLIC PANEL (BMP) (07/22/2023 6:51 EDT) Sodium 135(L) 136 - 145 mmol/L 07/22/2023 7:47 [facility] Potassium 4.6 3.5 - 5.0 mmol/L 07/22/2023 7:47 [facility] Chloride 102 96 - 110 mmol/L 07/22/2023 7:47 [facility] CO2 Total 23 22 - 32 mmol/L 07/22/2023 7:47 [facility] Anion Gap 10 5 - 14 mmol/L 07/22/2023 7:47 [facility] Glucose 140(H) 70 - 99 mg/dl 07/22/2023 7:47 [facility] Calcium 9.4 8.5 - 10.5 mg/dL 07/22/2023 7:47 [facility] BUN 15 10 - 26 mg/dL 07/22/2023 7:47 [facility] Creatinine 0.42(L) 0.52 - 1.04 mg/dL 07/22/2023 7:47 EDT [facility] eGFR 118 >60 mL/min/1.73 m2 07/22/2023 7:47 EDT [facility] Blood VENOUS BLOOD / Unknown Venipuncture / Unknown 07/22/2023 6:51 EDT 07/22/2023 7:06 EDT Joan Menon MD CHEMISTRY & BLOOD GA S ORDERABLES Performing Organization Address City/[facility]/ZIP Co de Phone Number [facility] [address] [place] [address] * (ABNORMAL) POCT GLUCOSE, INTERFACED (07/21/2023 21:23 EDT) Glucose, POC 125(H) 70 - 100 mg/dL 07/21/2023 21:24 EDT [facility] HN LAB POC COMMENT (GLUCOSE) Test Performed by Nursing Services 07/21/2023 21:24 EDT [facility] Blood CAPILLARY BLOOD / Unknown 07/21/2023 21:23 EDT 07/21/2023 21:24 EDT Nabila English NP POINT OF CARE TEST ORDERABLES Performing Organization Address [facility] Co de Phone Number [facility] [address] [place] [address] * (ABNORMAL) POCT GLUCOSE, INTERFACED (07/21/2023 17:42 EDT) Glucose, POC 102(H) 70 - 100 mg/dL 07/21/2023 17:43 EDT [facility] HN LAB POC COMMENT (GLUCOSE) Test Performed by Nursing Services 07/21/2023 17:43 EDT [facility] Blood CAPILLARY BLOOD / Unknown 07/21/2023 17:42 EDT 07/21/2023 17:43 EDT Nabila English NP POINT OF CARE TEST ORDERABLES [facility] [address], [place] [id number] * (ABNORMAL) POCT GLUCOSE, INTERFACED (07/21/2023 12:30 EDT) Glucose, POC 119(H) 70 - 100 mg/dL 07/21/2023 12:32 EDT [facility] HN LAB POC COMMENT (GLUCOSE) Test Performed by Nursing Services 07/21/2023 12:32 EDT [facility] Blood CAPILLARY BLOOD / Unknown 07/21/2023 12:30 EDT 07/21/2023 12:32 EDT Tai Azar MD POINT OF CARE TEST ORDERABLES Performing Organization Address City/[facility]/ZIP Co de Phone Number [facility] [address], [place] [id number] * (ABNORMAL) POCT GLUCOSE, INTERFACED (07/21/2023 7:52 EDT) Glucose, POC 248(H) 70 - 100 mg/dL 07/21/2023 7:52 EDT [facility] HN LAB POC COMMENT (GLUCOSE) Test Performed by Nursing Services 07/21/2023 7:52 EDT [facility] Blood CAPILLARY BLOOD / Unknown 07/21/2023 7:52 EDT 07/21/2023 7:52 EDT Tai Azar MD POINT OF CARE TEST ORDERABLES [facility] [address], [place] [id number] * (ABNORMAL) POCT GLUCOSE, INTERFACED (07/20/2023 19:59 EDT) Glucose, POC 214(H) 70 - 100 mg/dL 07/20/2023 20:01 EDT [facility] HN LAB POC COMMENT (GLUCOSE) Test Performed by Nursing Services 07/20/2023 20:01 EDT [facility] Blood CAPILLARY BLOOD / Unknown 07/20/2023 19:59 EDT 07/20/2023 20:01 EDT Tai Azar MD POINT OF CARE TEST ORDERABLES [facility] [address], [place] [phone] * (ABNORMAL) POCT GLUCOSE, INTERFACED (07/20/2023 18:12 EDT) Glucose, POC 171(H) 70 - 100 mg/dL 07/20/2023 18:13 EDT [facility] HN LAB POC COMMENT (GLUCOSE) Test Performed by Nursing Services 07/20/2023 18:13 EDT [facility] Blood CAPILLARY BLOOD / Unknown 07/20/2023 18:12 EDT 07/20/2023 18:13 EDT Nabila English NP POINT OF CARE TEST ORDERABLES Performing Organization Address City/[facility]/ZIP Co de Phone Number [facility] [address], [place] [phone] * (ABNORMAL) POCT GLUCOSE, INTERFACED (07/20/2023 12:05 EDT) Glucose, POC 152(H) 70 - 100 mg/dL 07/20/2023 12:06 EDT [facility] HN LAB POC COMMENT (GLUCOSE) Test Performed by Nursing Services 07/20/2023 12:06 EDT [facility] Blood CAPILLARY BLOOD / Unknown 07/20/2023 12:05 EDT 07/20/2023 12:06 EDT Tai Azar MD POINT OF CARE TEST ORDERABLES [facility] [address] [place] [address] * (ABNORMAL) POCT GLUCOSE, INTERFACED (07/20/2023 7:13 EDT) Glucose, POC 141(H) 70 - 100 mg/dL 07/20/2023 7:14 EDT [facility] HN LAB POC COMMENT (GLUCOSE) Test Performed by Nursing Services 07/20/2023 7:14 EDT [facility] Blood CAPILLARY BLOOD / Unknown 07/20/2023 7:13 EDT 07/20/2023 7:14 EDT Nabila English NP POINT OF CARE TEST ORDERABLES Performing Organization Address City/[facility]/ZIP Co de Phone Number [facility] [address], [place] [phone] * (ABNORMAL) POCT GLUCOSE, INTERFACED (07/19/2023 20:49 EDT) Glucose, POC 183(H) 70 - 100 mg/dL 07/19/2023 20:50 EDT [facility] HN LAB POC COMMENT (GLUCOSE) Test Performed by Nursing Services 07/19/2023 20:50 EDT [facility] Blood CAPILLARY BLOOD / Unknown 07/19/2023 20:49 EDT 07/19/2023 20:50 EDT Tai Azar MD POINT OF CARE TEST ORDERABLES [facility] [address], [place] [phone] * (ABNORMAL) POCT GLUCOSE, INTERFACED (07/19/2023 17:09 EDT) Glucose, POC 145(H) 70 - 100 mg/dL 07/19/2023 17:10 EDT [facility] HN LAB POC COMMENT (GLUCOSE) Test Performed by Nursing Services 07/19/2023 17:10 EDT [facility] Blood CAPILLARY BLOOD / Unknown 07/19/2023 17:09 EDT 07/19/2023 17:10 EDT Nabila English NP POINT OF CARE TEST ORDERABLES [facility] [address], [place] [phone] * (ABNORMAL) POCT GLUCOSE, INTERFACED (07/19/2023 11:36 EDT) Glucose, POC 145(H) 70 - 100 mg/dL 07/19/2023 11:38 EDT [facility] HN LAB POC COMMENT (GLUCOSE) Test Performed by Nursing Services 07/19/2023 11:38 EDT [facility] Blood CAPILLARY BLOOD / Unknown 07/19/2023 11:36 EDT 07/19/2023 11:38 EDT Tai Azar MD POINT OF CARE TEST ORDERABLES [facility] [address] [place] [address] * (ABNORMAL) POCT GLUCOSE, INTERFACED (07/19/2023 7:30 EDT) Glucose, POC 171(H) 70 - 100 mg/dL 07/19/2023 7:31 EDT [facility] HN LAB POC COMMENT (GLUCOSE) Test Performed by Nursing Services 07/19/2023 7:31 EDT [facility] Blood CAPILLARY BLOOD / Unknown 07/19/2023 7:30 EDT 07/19/2023 7:31 EDT Tai Azar MD POINT OF CARE TEST ORDERABLES [facility] [address] [place] [address] * (ABNORMAL) POCT GLUCOSE, INTERFACED (07/18/2023 20:33 EDT) Glucose, POC 217(H) 70 - 100 mg/dL 07/18/2023 20:35 EDT [facility] HN LAB POC COMMENT (GLUCOSE) Test Performed by Nursing Services 07/18/2023 20:35 EDT [facility] Blood CAPILLARY BLOOD / Unknown 07/18/2023 20:33 EDT 07/18/2023 20:35 EDT Tai Azar MD POINT OF CARE TEST ORDERABLES Performing Organization Address City/[facility]/ZIP Co de Phone Number [facility] [address] [place] [address] * (ABNORMAL) POCT GLUCOSE, INTERFACED (07/18/2023 18:20 EDT) Glucose, POC 161(H) 70 - 100 mg/dL 07/18/2023 18:21 EDT [facility] HN LAB POC COMMENT (GLUCOSE) Test Performed by Nursing Services 07/18/2023 18:21 EDT [facility] Blood CAPILLARY BLOOD / Unknown 07/18/2023 18:20 EDT 07/18/2023 18:21 EDT Nabila English NP POINT OF CARE TEST ORDERABLES Performing Organization Address City/[facility]/ZIP Co de Phone Number [facility] [address] [place] [address] * (ABNORMAL) POCT GLUCOSE, INTERFACED (07/18/2023 11:42 EDT) Glucose, POC 166(H) 70 - 100 mg/dL 07/18/2023 11:43 EDT [facility] HN LAB POC COMMENT (GLUCOSE) Test Performed by Nursing Services 07/18/2023 11:43 EDT [facility] Blood CAPILLARY BLOOD / Unknown 07/18/2023 11:42 EDT 07/18/2023 11:43 EDT Tai Azar MD POINT OF CARE TEST ORDERABLES Performing Organization Address City/[facility]/ZIP Co de Phone Number [facility] [address] [place] [address] * (ABNORMAL) POCT GLUCOSE, INTERFACED (07/18/2023 8:36 EDT) Glucose, POC 195(H) 70 - 100 mg/dL 07/18/2023 8:37 EDT [facility] HN LAB POC COMMENT (GLUCOSE) Test Performed by Nursing Services 07/18/2023 8:37 EDT [facility] Blood CAPILLARY BLOOD / Unknown 07/18/2023 8:36 EDT 07/18/2023 8:37 EDT Nabila English NP POINT OF CARE TEST ORDERABLES Performing Organization Address City/[facility]/ZIP Co de Phone Number [facility] [address], [place] [phone] * (ABNORMAL) COMPLETE BLOOD COUNT AND DIFFERENTIAL (07/18/2023 8:20 EDT) WBC 7.06 4.00 - 12.40 K/cmm 07/18/2023 8:58 T [facility] RBC 3.01(L) 3.86 - 5.04 M/cmm 07/18/2023 8:58 [facility] Hemoglobin 8.6(L) 11.6 - 15.2 g/dL 07/18/2023 8:58 T [facility] HCT 25.8(L) 34.9 - 44.4 % 07/18/2023 8:58 [facility] MCV 86 81 - 98 fL 07/18/2023 8:58 [facility] MCH 28.6 26.7 - 33.3 pg 07/18/2023 8:58 [facility] MCHC 33.3 32.1 - 35.9 g/dL 07/18/2023 8:58 [facility] RDW-CV 14.6 <14.7 % 07/18/2023 8:58 [facility] RDW-SD 45.2 <50.4 fl 07/18/2023 8:58 [facility] PLT 342 141 - 377 K/[facility] 07/18/2023 8:58 [facility] MPV 9.7 9.5 - 12.7 fL 07/18/2023 8:58 [facility] % Neutrophils 60.1 % 07/18/2023 8:58 [facility] % Lymphocytes 24.5 % 07/18/2023 8:58 [facility] % Monocytes 8.8 % 07/18/2023 8:58 [facility] % Eosinophils 1.7 % 07/18/2023 8:58 [facility] % Basophils 0.7 % 07/18/2023 8:58 [facility] % Immature Grans 4.2 % 07/18/19 8:58 [facility] Absolute Neutrophils 4.24 2.20 - 8.85 K/cm 07/18/2023 8:58 [facility] Absolute Lymphocytes 1.73 1.09 - 3.30 K/cm 07/18/2023 8:58 [facility] Absolute Monocytes 0.62 0.10 - 0.80 K/cm 07/18/2023 8:58 [facility] Absolute Eosinophils 0.12 0.03 - 0.61 K/cm 07/18/2023 8:58 [facility] ABS Basophils 0.05 0.01 - 0.11 K/[facility] 07/18/2023 8:58 [facility] Absolute Immature Grans 0.30(H) 0.00 - 0.06 K/[facility] 07/18/2023 8:58 [facility] Type of Differential: Auto 07/18/2023 8:58 [facility] Blood VENOUS BLOOD / Unknown Venipuncture / Unknown 07/18/2023 8:20 EDT 07/18/2023 8:51 EDT Joan Menon MD PACKAGES & DNA PROBE ORDERABLES Performing Organization Address City/[facility]/ZIP Co de Phone Number [facility] [address] [place] [address] * (ABNORMAL) BASIC METABOLIC PANEL (BMP) (07/18/2023 8:20 EDT) Sodium 132(L) 136 - 145 mmol/L 07/18/2023 9:30 EDT [facility] Potassium 4.2 3.5 - 5.0 mmol/L 07/18/2023 9:30 EDT [facility] Chloride 99 96 - 110 mmol/L 07/18/2023 9:30 EDT [facility] CO2 Total 22 22 - 32 mmol/L 07/18/2023 9:30 EDT [facility] Anion Gap 11 5 - 14 mmol/L 07/18/2023 9:30 EDT [facility] Glucose 180(H) 70 - 99 mg/dl 07/18/2023 9:30 EDT [facility] Calcium 8.8 8.5 - 10.5 mg/dL 07/18/2023 9:30 EDT [facility] BUN 14 10 - 26 mg/dL 07/18/2023 9:30 EDT [facility] Creatinine 0.41(L) 0.52 - 1.04 mg/dL 07/18/2023 9:30 EDT [facility] eGFR 118 >60 mL/min/1.73 m2 07/18/2023 9:30 EDT [facility] Blood VENOUS BLOOD / Unknown Venipuncture / Unknown 07/18/2023 8:20 EDT 07/18/2023 8:51 EDT Joan Menon MD CHEMISTRY & BLOOD GA S ORDERABLES Performing Organization Address City/[facility]/ZIP Co de Phone Number [facility] [address], [place] [phone] * (ABNORMAL) POCT GLUCOSE, INTERFACED (07/18/2023 7:17 EDT) Glucose, POC 153(H) 70 - 100 mg/dL 07/18/2023 7:18 EDT [facility] HN LAB POC COMMENT (GLUCOSE) Test Performed by Nursing Services 07/18/2023 7:18 EDT [facility] Blood CAPILLARY BLOOD / Unknown 07/18/2023 7:17 EDT 07/18/2023 7:18 EDT Tai Azar MD POINT OF CARE TEST ORDERABLES Performing Organization Address City/[facility]/ZIP Co de Phone Number [facility] [address], [place] [phone] * (ABNORMAL) POCT GLUCOSE, INTERFACED (07/17/2023 20:24 EDT) Glucose, POC 244(H) 70 - 100 mg/dL 07/17/2023 20:25 EDT [facility] HN LAB POC COMMENT (GLUCOSE) Test Performed by Nursing Services 07/17/2023 20:25 EDT [facility] Blood CAPILLARY BLOOD / Unknown 07/17/2023 20:24 EDT 07/17/2023 20:25 EDT Tai Azar MD POINT OF CARE TEST ORDERABLES [facility] [address], [place] [phone] * (ABNORMAL) POCT GLUCOSE, INTERFACED (07/17/2023 17:49 EDT) Glucose, POC 114(H) 70 - 100 mg/dL 07/17/2023 17:50 EDT [facility] HN LAB POC COMMENT (GLUCOSE) Test Performed by Nursing Services 07/17/2023 17:50 EDT [facility] Blood CAPILLARY BLOOD / Unknown 07/17/2023 17:49 EDT 07/17/2023 17:50 EDT Nabila English NP POINT OF CARE TEST ORDERABLES [facility] [address] [place] [address] * (ABNORMAL) POCT GLUCOSE, INTERFACED (07/17/2023 11:47 EDT) Glucose, POC 207(H) 70 - 100 mg/dL 07/17/2023 11:49 EDT [facility] HN LAB POC COMMENT (GLUCOSE) Test Performed by Nursing Services 07/17/2023 11:49 EDT [facility] Blood CAPILLARY BLOOD / Unknown 07/17/2023 11:47 EDT 07/17/2023 11:49 EDT Tai Azar MD POINT OF CARE TEST ORDERABLES Performing Organization Address City/[facility]/ZIP Co de Phone Number [facility] [address] [place] [address] * (ABNORMAL) POCT GLUCOSE, INTERFACED (07/17/2023 7:59 EDT) Glucose, POC 163(H) 70 - 100 mg/dL 07/17/2023 8:01 EDT [facility] HN LAB POC COMMENT (GLUCOSE) Test Performed by Nursing Services 07/17/2023 8:01 EDT [facility] Blood CAPILLARY BLOOD / Unknown 07/17/2023 7:59 EDT 07/17/2023 8:01 EDT Tai Azar MD POINT OF CARE TEST ORDERABLES Performing Organization Address City/[facility]/ZIP Co de Phone Number [facility] [address] [place] [address] * (ABNORMAL) POCT GLUCOSE, INTERFACED (07/16/2023 21:31 EDT) Glucose, POC 201(H) 70 - 100 mg/dL 07/16/2023 21:38 EDT [facility] HN LAB POC COMMENT (GLUCOSE) Test Performed by Nursing Services 07/16/2023 21:38 EDT [facility] Blood CAPILLARY BLOOD / Unknown 07/16/2023 21:31 EDT 07/16/2023 21:38 EDT Nabila English NP POINT OF CARE TEST ORDERABLES Performing Organization Address City/[facility]/ZIP Co de Phone Number [facility] [address] [place] [address] * (ABNORMAL) POCT GLUCOSE, INTERFACED (07/16/2023 16:52 EDT) Glucose, POC 174(H) 70 - 100 mg/dL 07/16/2023 16:53 EDT [facility] HN LAB POC COMMENT (GLUCOSE) Test Performed by Nursing Services 07/16/2023 16:53 EDT [facility] Blood CAPILLARY BLOOD / Unknown 07/16/2023 16:52 EDT 07/16/2023 16:53 EDT Nabila English NP POINT OF CARE TEST ORDERABLES Performing Organization Address City/[facility]/ZIP Co de Phone Number [facility] [address], [place] [phone] * (ABNORMAL) POCT GLUCOSE, INTERFACED (07/16/2023 11:35 EDT) Glucose, POC 158(H) 70 - 100 mg/dL 07/16/2023 11:37 EDT [facility] HN LAB POC COMMENT (GLUCOSE) Test Performed by Nursing Services 07/16/2023 11:37 EDT [facility] Blood CAPILLARY BLOOD / Unknown 07/16/2023 11:35 EDT 07/16/2023 11:37 EDT Tai Azar MD POINT OF CARE TEST ORDERABLES [facility] [address] [place] [address] * (ABNORMAL) POCT GLUCOSE, INTERFACED (07/16/2023 7:43 EDT) Glucose, POC 145(H) 70 - 100 mg/dL 07/16/2023 7:44 EDT [facility] HN LAB POC COMMENT (GLUCOSE) Test Performed by Nursing Services 07/16/2023 7:44 EDT [facility] Blood CAPILLARY BLOOD / Unknown 07/16/2023 7:43 EDT 07/16/2023 7:44 EDT Tai Azar MD POINT OF CARE TEST ORDERABLES Performing Organization Address City/[facility]/ZIP Co de Phone Number [facility] [address], [place] [phone] * (ABNORMAL) POCT GLUCOSE, INTERFACED (07/15/2023 20:31 EDT) Glucose, POC 194(H) 70 - 100 mg/dL 07/15/2023 20:34 EDT [facility] HN LAB POC COMMENT (GLUCOSE) Test Performed by Nursing Services 07/15/2023 20:34 EDT [facility] Blood CAPILLARY BLOOD / Unknown 07/15/2023 20:31 EDT 07/15/2023 20:34 EDT Tai Azar MD POINT OF CARE TEST ORDERABLES [facility] [address], [place] [phone] * (ABNORMAL) POCT GLUCOSE, INTERFACED (07/15/2023 17:04 EDT) Glucose, POC 188(H) 70 - 100 mg/dL 07/15/2023 17:05 EDT [facility] HN LAB POC COMMENT (GLUCOSE) Test Performed by Nursing Services 07/15/2023 17:05 EDT [facility] Blood CAPILLARY BLOOD / Unknown 07/15/2023 17:04 EDT 07/15/2023 17:05 EDT Nabila English NP POINT OF CARE TEST ORDERABLES Performing Organization Address [facility] Co de Phone Number [facility] [address] [place] [address] * (ABNORMAL) POCT GLUCOSE, INTERFACED (07/15/2023 11:20 EDT) Glucose, POC 174(H) 70 - 100 mg/dL 07/15/2023 11:21 EDT [facility] HN LAB POC COMMENT (GLUCOSE) Test Performed by Nursing Services 07/15/2023 11:21 EDT [facility] Blood CAPILLARY BLOOD / Unknown 07/15/2023 11:20 EDT 07/15/2023 11:21 EDT Tai Azar MD POINT OF CARE TEST ORDERABLES Performing Organization Address [facility] Co de Phone Number [facility] [address] [place] [address] * (ABNORMAL) COMPLETE BLOOD COUNT AND DIFFERENTIAL (07/15/2023 9:26 EDT) WBC 8.00 4.00 - 12.40 K/cmm 07/15/2023 9:50 EDT [facility] RBC 2.91(L) 3.86 - 5.04 M/cmm 07/15/2023 9:50 [facility] Hemoglobin 8.3(L) 11.6 - 15.2 g/dL 07/15/2023 9:50 EDT [facility] HCT 25.1(L) 34.9 - 44.4 % 07/15/2023 9:50 [facility] MCV 86 81 - 98 fL 07/15/2023 9:50 [facility] MCH 28.5 26.7 - 33.3 pg 07/15/2023 9:50 [facility] MCHC 33.1 32.1 - 35.9 g/dL 07/15/2023 9:50 [facility] RDW-CV 14.4 <14.7 % 07/15/2023 9:50 [facility] RDW-SD 44.7 <50.4 fl 07/15/2023 9:50 [facility] PLT 387(H) 141 - 377 K/cmm 07/15/2023 9:50 [facility] MPV 9.8 9.5 - 12.7 fL 07/15/2023 9:50 [facility] % Neutrophils 67.7 % 07/15/2023 9:50 [facility] % Lymphocytes 16.1 % 07/15/2023 9:50 [facility] % Monocytes 9.5 % 07/15/2023 9:50 [facility] % Eosinophils 1.8 % 07/15/2023 9:50 [facility] % Basophils 0.8 % 07/15/2023 9:50 [facility] % Immature Grans 4.1 % 07/15/19 9:50 [facility] Absolute Neutrophils 5.42 2.20 - 8.85 K/cmm 07/15/2023 9:50 [facility] Absolute Lymphocytes 1.29 1.09 - 3.30 K/cmm 07/15/2023 9:50 [facility] Absolute Monocytes 0.76 0.10 - 0.80 K/cmm 07/15/2023 9:50 [facility] Absolute Eosinophils 0.14 0.03 - 0.61 K/cmm 07/15/2023 9:50 [facility] ABS Basophils 0.06 0.01 - 0.11 K/cmm 07/15/2023 9:50 [facility] Absolute Immature Grans 0.33(H) 0.00 - 0.06 K/cmm 07/15/2023 9:50 [facility] Type of Differential: Auto 07/15/2023 9:50 [facility] Blood VENOUS BLOOD / Unknown Venipuncture / Unknown 07/15/2023 9:26 EDT 07/15/2023 9:41 EDT Joan Menon MD PACKAGES & DNA PROBE ORDERABLES [facility] [address] [place] [address] * (ABNORMAL) BASIC METABOLIC PANEL (BMP) (07/15/2023 9:26 EDT) Sodium 131(L) 136 - 145 mmol/L 07/15/2023 10:26 [facility] Potassium 4.1 3.5 - 5.0 mmol/L 07/15/2023 10:26 [facility] Chloride 96 96 - 110 mmol/L 07/15/2023 10:26 [facility] CO2 Total 23 22 - 32 mmol/L 07/15/2023 10:26 [facility] Anion Gap 12 5 - 14 mmol/L 07/15/2023 10:26 [facility] Glucose 240(H) 70 - 99 mg/dl 07/15/2023 10:26 [facility] Calcium 8.5 8.5 - 10.5 mg/dL 07/15/2023 10:26 [facility] BUN 14 10 - 26 mg/dL 07/15/2023 10:26 [facility] Creatinine 0.40(L) 0.52 - 1.04 mg/dL 07/15/2023 10:26 [facility] eGFR 119 >60 mL/min/1.73 m2 07/15/2023 10:26 [facility] Blood VENOUS BLOOD / Unknown Venipuncture / Unknown 07/15/2023 9:26 EDT 07/15/2023 9:48 EDT Joan Menon MD CHEMISTRY & BLOOD GA S ORDERABLES [facility] [address] [place] [address] * (ABNORMAL) POCT GLUCOSE, INTERFACED (07/15/2023 7:16 EDT) Glucose, POC 150(H) 70 - 100 mg/dL 07/15/2023 7:17 EDT [facility] HN LAB POC COMMENT (GLUCOSE) Test Performed by Nursing Services 07/15/2023 7:17 EDT [facility] Blood CAPILLARY BLOOD / Unknown 07/15/2023 7:16 EDT 07/15/2023 7:17 EDT Tai Azar MD POINT OF CARE TEST ORDERABLES Performing Organization Address City/[facility]/ZIP Co de Phone Number [facility] [address] [place] [address] * (ABNORMAL) POCT GLUCOSE, INTERFACED (07/14/2023 20:42 EDT) Glucose, POC 164(H) 70 - 100 mg/dL 07/14/2023 20:43 EDT [facility] HN LAB POC COMMENT (GLUCOSE) Test Performed by Nursing Services 07/14/2023 20:43 EDT [facility] Blood CAPILLARY BLOOD / Unknown 07/14/2023 20:42 EDT 07/14/2023 20:43 EDT Tai Azar MD POINT OF CARE TEST ORDERABLES [facility] [address] [place] [address] * (ABNORMAL) POCT GLUCOSE, INTERFACED (07/14/2023 16:48 EDT) Glucose, POC 172(H) 70 - 100 mg/dL 07/14/2023 16:49 EDT [facility] HN LAB POC COMMENT (GLUCOSE) Test Performed by Nursing Services 07/14/2023 16:49 EDT [facility] Blood CAPILLARY BLOOD / Unknown 07/14/2023 16:48 EDT 07/14/2023 16:49 EDT Nabila English NP POINT OF CARE TEST ORDERABLES Performing Organization Address City/[facility]/ZIP Co de Phone Number [facility] [address] [place] [address] * (ABNORMAL) POCT GLUCOSE, INTERFACED (07/14/2023 11:59 EDT) Glucose, POC 187(H) 70 - 100 mg/dL 07/14/2023 12:00 EDT [facility] HN LAB POC COMMENT (GLUCOSE) Test Performed by Nursing Services 07/14/2023 12:00 EDT [facility] Blood CAPILLARY BLOOD / Unknown 07/14/2023 11:59 EDT 07/14/2023 12:00 EDT Tai Azar MD POINT OF CARE TEST ORDERABLES Performing Organization Address City/[facility]/ZIP Co de Phone Number [facility] [address], [place] [phone] * (ABNORMAL) POCT GLUCOSE, INTERFACED (07/14/2023 6:53 EDT) Glucose, POC 179(H) 70 - 100 mg/dL 07/14/2023 6:54 EDT [facility] HN LAB POC COMMENT (GLUCOSE) Test Performed by Nursing Services 07/14/2023 6:54 EDT [facility] Blood CAPILLARY BLOOD / Unknown 07/14/2023 6:53 EDT 07/14/2023 6:54 EDT Nabila English NP POINT OF CARE TEST ORDERABLES [facility] [address], [place] [phone] * (ABNORMAL) POCT GLUCOSE, INTERFACED (07/13/2023 20:26 EDT) Glucose, POC 251(H) 70 - 100 mg/dL 07/13/2023 20:28 EDT [facility] HN LAB POC COMMENT (GLUCOSE) Test Performed by Nursing Services 07/13/2023 20:28 EDT [facility] Blood CAPILLARY BLOOD / Unknown 07/13/2023 20:26 EDT 07/13/2023 20:28 EDT Tai Azar MD POINT OF CARE TEST ORDERABLES Performing Organization Address City/[facility]/ZIP Co de Phone Number [facility] [address] [place] [address] * (ABNORMAL) POCT GLUCOSE, INTERFACED (07/13/2023 17:07 EDT) Glucose, POC 257(H) 70 - 100 mg/dL 07/13/2023 17:08 EDT [facility] HN LAB POC COMMENT (GLUCOSE) Test Performed by Nursing Services 07/13/2023 17:08 EDT [facility] Blood CAPILLARY BLOOD / Unknown 07/13/2023 17:07 EDT 07/13/2023 17:08 EDT Nabila English NP POINT OF CARE TEST ORDERABLES [facility] [address] [place] [address] * (ABNORMAL) POCT GLUCOSE, INTERFACED (07/13/2023 11:23 EDT) Glucose, POC 184(H) 70 - 100 mg/dL 07/13/2023 11:24 EDT [facility] HN LAB POC COMMENT (GLUCOSE) Test Performed by Nursing Services 07/13/2023 11:24 EDT [facility] Blood CAPILLARY BLOOD / Unknown 07/13/2023 11:23 EDT 07/13/2023 11:24 EDT Tai Azar MD POINT OF CARE TEST ORDERABLES Performing Organization Address City/[facility]/ZIP Co de Phone Number [facility] [address], [place] [phone] * (ABNORMAL) POCT GLUCOSE, INTERFACED (07/13/2023 7:06 EDT) Glucose, POC 151(H) 70 - 100 mg/dL 07/13/2023 7:08 EDT [facility] HN LAB POC COMMENT (GLUCOSE) Test Performed by Nursing Services 07/13/2023 7:08 EDT [facility] Blood CAPILLARY BLOOD / Unknown 07/13/2023 7:06 EDT 07/13/2023 7:08 EDT Nabila English NP POINT OF CARE TEST ORDERABLES Performing Organization Address [facility] Co de Phone Number [facility] [address] [place] [address] * (ABNORMAL) POCT GLUCOSE, INTERFACED (07/12/2023 21:13 EDT) Glucose, POC 209(H) 70 - 100 mg/dL 07/12/2023 21:15 EDT [facility] HN LAB POC COMMENT (GLUCOSE) Test Performed by Nursing Services 07/12/2023 21:15 EDT [facility] Blood CAPILLARY BLOOD / Unknown 07/12/2023 21:13 EDT 07/12/2023 21:15 EDT Nabila English NP POINT OF CARE TEST ORDERABLES [facility] [address], [place] [phone] * (ABNORMAL) POCT GLUCOSE, INTERFACED (07/12/2023 16:52 EDT) Glucose, POC 221(H) 70 - 100 mg/dL 07/12/2023 16:53 EDT [facility] HN LAB POC COMMENT (GLUCOSE) Test Performed by Nursing Services 07/12/2023 16:53 EDT [facility] Blood CAPILLARY BLOOD / Unknown 07/12/2023 16:52 EDT 07/12/2023 16:53 EDT Nabila English NP POINT OF CARE TEST ORDERABLES Performing Organization Address [facility]/ZIP Co de Phone Number [facility] [address], [place] [phone] * (ABNORMAL) POCT GLUCOSE, INTERFACED (07/12/2023 11:18 EDT) Glucose, POC 241(H) 70 - 100 mg/dL 07/12/2023 11:18 EDT [facility] HN LAB POC COMMENT (GLUCOSE) Test Performed by Nursing Services 07/12/2023 11:18 EDT [facility] Blood CAPILLARY BLOOD / Unknown 07/12/2023 11:18 EDT 07/12/2023 11:18 EDT Tai Azar MD POINT OF CARE TEST ORDERABLES Performing Organization Address City/[facility]/ZIP Co de Phone Number [facility] [address], [place] [phone] * (ABNORMAL) POCT GLUCOSE, INTERFACED (07/12/2023 7:32 EDT) Glucose, POC 153(H) 70 - 100 mg/dL 07/12/2023 7:34 EDT [facility] HN LAB POC COMMENT (GLUCOSE) Test Performed by Nursing Services 07/12/2023 7:34 EDT [facility] Blood CAPILLARY BLOOD / Unknown 07/12/2023 7:32 EDT 07/12/2023 7:34 EDT Tai Azar MD POINT OF CARE TEST ORDERABLES Performing Organization Address City/[facility]/ZIP Co de Phone Number [facility] [address] [place] [address] * (ABNORMAL) POCT GLUCOSE, INTERFACED (07/11/2023 21:54 EDT) Glucose, POC 250(H) 70 - 100 mg/dL 07/11/2023 22:03 EDT [facility] HN LAB POC COMMENT (GLUCOSE) Test Performed by Nursing Services 07/11/2023 22:03 EDT [facility] Blood CAPILLARY BLOOD / Unknown 07/11/2023 21:54 EDT 07/11/2023 22:03 EDT Moo Monique MD POINT OF CARE TEST ORDERABLES Performing Organization Address [facility]/ZIP Co de Phone Number [facility] [address] [place] [address] * (ABNORMAL) POCT GLUCOSE, INTERFACED (07/11/2023 20:43 EDT) Glucose, POC 282(H) 70 - 100 mg/dL 07/11/2023 20:45 EDT [facility] HN LAB POC COMMENT (GLUCOSE) Test Performed by Nursing Services 07/11/2023 20:45 EDT [facility] Blood CAPILLARY BLOOD / Unknown 07/11/2023 20:43 EDT 07/11/2023 20:44 EDT Tai Azar MD POINT OF CARE TEST ORDERABLES Performing Organization Address City/[facility]/ZIP Co de Phone Number [facility] [address] [place] [address] * (ABNORMAL) POCT GLUCOSE, INTERFACED (07/11/2023 17:54 EDT) Glucose, POC 169(H) 70 - 100 mg/dL 07/11/2023 17:55 EDT [facility] HN LAB POC COMMENT (GLUCOSE) Test Performed by Nursing Services 07/11/2023 17:55 EDT [facility] Blood CAPILLARY BLOOD / Unknown 07/11/2023 17:54 EDT 07/11/2023 17:55 EDT Tai Azar MD POINT OF CARE TEST ORDERABLES [facility] [address] [place] [address] * (ABNORMAL) POCT GLUCOSE, INTERFACED (07/11/2023 13:06 EDT) Glucose, POC 156(H) 70 - 100 mg/dL 07/11/2023 13:08 EDT [facility] HN LAB POC COMMENT (GLUCOSE) Test Performed by Nursing Services 07/11/2023 13:08 EDT [facility] Blood CAPILLARY BLOOD / Unknown 07/11/2023 13:06 EDT 07/11/2023 13:08 EDT Tai Azar MD POINT OF CARE TEST ORDERABLES [facility] [address], [place] [phone] * (ABNORMAL) POCT GLUCOSE, INTERFACED (07/11/2023 7:48 EDT) Glucose, POC 140(H) 70 - 100 mg/dL 07/11/2023 7:49 EDT [facility] HN LAB POC COMMENT (GLUCOSE) Test Performed by Nursing Services 07/11/2023 7:49 EDT [facility] Blood CAPILLARY BLOOD / Unknown 07/11/2023 7:48 EDT 07/11/2023 7:49 EDT Tai Azar MD POINT OF CARE TEST ORDERABLES [facility] [address] [place] [address] * (ABNORMAL) DIFFERENTIAL, AUTOMATED MANUAL (07/11/2023 6:36 EDT) % Neutrophils 56.5 Not Indicated % 07/11/2023 8:03 [facility] % Lymphocytes 20.0 Not Indicated % 07/11/2023 8:03 [facility] % Monocytes 15.6 Not Indicated % 07/11/2023 8:03 [facility] % Eosinophils 0.9 Not Indicated % 07/11/2023 8:03 [facility] % Basophils 0.9 Not Indicated % 07/11/2023 8:03 [facility] % Metamyelocytes 5.2 Not Indicated % 07/11/2023 8:03 [facility] % Myelocytes 0.9 Not Indicated % 07/11/2023 8:03 [facility] Basophilic Stippling Present in <2% of RBCs 07/11/2023 8:03 [facility] Absolute Neutrophils 3.93 2.20 - 8.85 K/cmm 07/11/2023 8:03 [facility] Absolute Lymphocytes 1.39 1.09 - 3.30 K/cmm 07/11/2023 8:03 [facility] Absolute Monocytes 1.09(H) 0.10 - 0.80 K/cmm 07/11/2023 8:03 [facility] Absolute Eosinophils 0.06 0.03 - 0.61 K/cmm 07/11/2023 8:03 [facility] ABS Basophils 0.06 0.01 - 0.11 K/cmm 07/11/2023 8:03 [facility] Absolute Metamyelocytes 0.36(H) <=0.00 K/cmm 07/11/2023 8:03 [facility] Absolute Myelocytes 0.06(H) <=0.00 K/cmm 07/11/2023 8:03 [facility] Type of Differential: Manual 07/11/2023 8:03 [facility] Blood VENOUS BLOOD / Unknown Venipuncture / Unknown 07/11/2023 6:36 EDT 07/11/2023 7:10 EDT Joan Menon MD HEMATOLOGY & PF4 ORD ERABLES [facility] [address] [place] [address] * (ABNORMAL) COMPLETE BLOOD COUNT AND DIFFERENTIAL (07/11/2023 6:36 EDT) WBC 6.96 4.00 - 12.40 K/cmm 07/11/2023 7:30 [facility] RBC 2.61(L) 3.86 - 5.04 M/cmm 07/11/2023 7:30 [facility] Hemoglobin 7.4(L) 11.6 - 15.2 g/dL 07/11/2023 7:30 [facility] HCT 22.6(L) 34.9 - 44.4 % 07/11/2023 7:30 [facility] MCV 87 81 - 98 fL 07/11/2023 7:30 [facility] MCH 28.4 26.7 - 33.3 pg 07/11/2023 7:30 [facility] MCHC 32.7 32.1 - 35.9 g/dL 07/11/2023 7:30 [facility] RDW-CV 14.4 <14.7 % 07/11/2023 7:30 [facility] RDW-SD 45.9 <50.4 fl 07/11/2023 7:30 [facility] PLT 364 141 - 377 K/cmm 07/11/2023 7:30 [facility] MPV 10.0 9.5 - 12.7 fL 07/11/2023 7:30 [facility] Blood VENOUS BLOOD / Unknown Venipuncture / Unknown 07/11/2023 6:36 EDT 07/11/2023 7:10 EDT Joan Menon MD PACKAGES & DNA PROBE ORDERABLES [facility] [address] [place] [address] * (ABNORMAL) BASIC METABOLIC PANEL (BMP) (07/11/2023 6:36 EDT) Sodium 130(L) 136 - 145 mmol/L 07/11/2023 7:48 [facility] Potassium 4.5 3.5 - 5.0 mmol/L 07/11/2023 7:48 [facility] Chloride 98 96 - 110 mmol/L 07/11/2023 7:48 [facility] CO2 Total 23 22 - 32 mmol/L 07/11/2023 7:48 [facility] Anion Gap 9 5 - 14 mmol/L 07/11/2023 7:48 [facility] Glucose 143(H) 70 - 99 mg/dl 07/11/2023 7:48 [facility] Calcium 8.2(L) 8.5 - 10.5 mg/dL 07/11/2023 7:48 [facility] BUN 17 10 - 26 mg/dL 07/11/2023 7:48 [facility] Creatinine 0.49(L) 0.52 - 1.04 mg/dL 07/11/2023 7:48 [facility] eGFR 113 >60 mL/min/1.73 m2 07/11/2023 7:48 [facility] Blood VENOUS BLOOD / Unknown Venipuncture / Unknown 07/11/2023 6:36 EDT 07/11/2023 7:11 EDT Joan Menon MD CHEMISTRY & BLOOD GA S ORDERABLES Performing Organization Address [facility]/ZIP Co de Phone Number [facility] [address], [place] [phone] * OSMOLALITY (07/11/2023 6:36 EDT) Osmolality, Serum 276 275 - 295 mOsm/kg 07/11/2023 8:16 EDT [facility] Blood VENOUS BLOOD / Unknown Venipuncture / Unknown 07/11/2023 6:36 EDT 07/11/2023 7:11 EDT Leesa Buenrostro MD CHEMISTRY & BLOOD GA S ORDERABLES Performing Organization Address [facility] de Phone Number [facility] [address] [place] [address] * CREATININE, URINE RANDOM (07/11/2023 4:58 EDT) Creatinine, Urine 58.3 See Note mg/dL 07/11/2023 5:34 EDT [facility] Comment: NOTE: Reference range has not been established for creatinine concentration in random urine specimens. Urine URINE / Unknown Urine Collect / Unknown 07/11/2023 4:58 EDT 07/11/2023 5:09 EDT Leesa Buenrostro MD URINALYSIS ORDERABLE S Performing Organization Address [facility] Co de Phone Number [facility] [address] [place] [address] * UREA NITROGEN, URINE RANDOM (07/11/2023 4:58 EDT) Urea Nitrogen, Urine 576 See Note mg/dL 07/11/2023 5:34 EDT [facility] Comment: NOTE: Reference range has not been established for urea nitrogen concentration in random urine specimens. Urine URINE / Unknown Urine Collect / Unknown 07/11/2023 4:58 EDT 07/11/2023 5:09 EDT Leesa Buenrostro MD URINALYSIS ORDERABLE S Performing Organization Address City/[facility]/ZIP Co de Phone Number [facility] [address] [place] [address] * OSMOLALITY, URINE (07/11/2023 4:58 EDT) Osmolality, Urine 336 150 - 1,150 mOsm/kg 07/11/2023 5:36 EDT [facility] Urine URINE / Unknown Urine Collect / Unknown 07/11/2023 4:58 EDT 07/11/2023 5:09 EDT Leesa Buenrostro MD URINALYSIS ORDERABLE S Performing Organization Address [facility]/ZIP Co de Phone Number [facility] [address], [place] [phone] * (ABNORMAL) POCT GLUCOSE, INTERFACED (07/10/2023 21:29 EDT) Glucose, POC 305(H) 70 - 100 mg/dL 07/10/2023 21:30 EDT [facility] HN LAB POC COMMENT (GLUCOSE) Test Performed by Nursing Services 07/10/2023 21:30 EDT [facility] Blood CAPILLARY BLOOD / Unknown 07/10/2023 21:29 EDT 07/10/2023 21:30 EDT Moo Monique MD POINT OF CARE TEST ORDERABLES Performing Organization Address [facility]/ZIP Co de Phone Number [facility] [address], [place] [phone] * (ABNORMAL) POCT GLUCOSE, INTERFACED (07/10/2023 19:30 EDT) Glucose, POC 176(H) 70 - 100 mg/dL 07/10/2023 19:37 EDT [facility] HN LAB POC COMMENT (GLUCOSE) Test Performed by Nursing Services 07/10/2023 19:37 EDT [facility] Blood CAPILLARY BLOOD / Unknown 07/10/2023 19:30 EDT 07/10/2023 19:37 EDT Moo Monique MD POINT OF CARE TEST ORDERABLES Performing Organization Address City/[facility]/ZIP Co de Phone Number [facility] [address] [place] [address] * (ABNORMAL) POCT GLUCOSE, INTERFACED (07/10/2023 18:20 EDT) Glucose, POC 216(H) 70 - 100 mg/dL 07/10/2023 18:21 EDT [facility] HN LAB POC COMMENT (GLUCOSE) Test Performed by Nursing Services 07/10/2023 18:21 EDT [facility] Blood CAPILLARY BLOOD / Unknown 07/10/2023 18:20 EDT 07/10/2023 18:21 EDT Tai Azar MD POINT OF CARE TEST ORDERABLES Performing Organization Address [facility] Co de Phone Number [facility] [address] [place] [address] * (ABNORMAL) POCT GLUCOSE, INTERFACED (07/10/2023 14:36 EDT) Glucose, POC 207(H) 70 - 100 mg/dL 07/10/2023 14:38 EDT [facility] HN LAB POC COMMENT (GLUCOSE) Test Performed by Nursing Services 07/10/2023 14:38 EDT [facility] Blood CAPILLARY BLOOD / Unknown 07/10/2023 14:36 EDT 07/10/2023 14:38 EDT Tai Azar MD POINT OF CARE TEST ORDERABLES [facility] [address], [place] [id number] * (ABNORMAL) POCT GLUCOSE, INTERFACED (07/10/2023 11:59 EDT) Glucose, POC 157(H) 70 - 100 mg/dL 07/10/2023 12:01 EDT [facility] HN LAB POC COMMENT (GLUCOSE) Test Performed by Nursing Services 07/10/2023 12:01 EDT [facility] Blood CAPILLARY BLOOD / Unknown 07/10/2023 11:59 EDT 07/10/2023 12:00 EDT Tai Azar MD POINT OF CARE TEST ORDERABLES Performing Organization Address [facility] Hospital/ZIP Co de Phone Number [facility] [address], [place] [address] * (ABNORMAL) POCT GLUCOSE, INTERFACED (07/10/2023 8:32 EDT) Glucose, POC 225(H) 70 - 100 mg/dL 07/10/2023 8:33 EDT [facility] HN LAB POC COMMENT (GLUCOSE) Test Performed by Nursing Services 07/10/2023 8:33 EDT [facility] Blood CAPILLARY BLOOD / Unknown 07/10/2023 8:32 EDT 07/10/2023 8:33 EDT Tai Azar MD POINT OF CARE TEST ORDERABLES [facility] [address], [place] [address] * (ABNORMAL) POCT GLUCOSE, INTERFACED (07/09/2023 20:38 EDT) Glucose, POC 268(H) 70 - 100 mg/dL 07/09/2023 20:43 EDT [facility] HN LAB POC COMMENT (GLUCOSE) Test Performed by Nursing Services 07/09/2023 20:43 EDT [facility] Blood CAPILLARY BLOOD / Unknown 07/09/2023 20:38 EDT 07/09/2023 20:43 EDT Tai Azar MD POINT OF CARE TEST ORDERABLES [facility] [address] [place] [address] * (ABNORMAL) POCT GLUCOSE, INTERFACED (07/09/2023 17:06 EDT) Glucose, POC 189(H) 70 - 100 mg/dL 07/09/2023 17:07 EDT [facility] HN LAB POC COMMENT (GLUCOSE) Test Performed by Nursing Services 07/09/2023 17:07 EDT [facility] Blood CAPILLARY BLOOD / Unknown 07/09/2023 17:06 EDT 07/09/2023 17:07 EDT Tai Azar MD POINT OF CARE TEST ORDERABLES Performing Organization Address City/[facility]/ZIP Co de Phone Number [facility] [address] [place] [address] * (ABNORMAL) POCT GLUCOSE, INTERFACED (07/09/2023 11:59 EDT) Glucose, POC 235(H) 70 - 100 mg/dL 07/09/2023 12:00 EDT [facility] HN LAB POC COMMENT (GLUCOSE) Test Performed by Nursing Services 07/09/2023 12:00 EDT [facility] Blood CAPILLARY BLOOD / Unknown 07/09/2023 11:59 EDT 07/09/2023 12:00 EDT Tai Azar MD POINT OF CARE TEST ORDERABLES [facility] [address], [place] [id number] * (ABNORMAL) POCT GLUCOSE, INTERFACED (07/09/2023 7:44 EDT) [facility] Glucose, POC 212(H) 70 - 100 mg/dL 07/09/2023 7:45 EDT [facility] HN LAB POC COMMENT (GLUCOSE) Test Performed by Nursing Services 07/09/2023 7:45 EDT [facility] Blood CAPILLARY BLOOD / Unknown 07/09/2023 7:44 EDT 07/09/2023 7:45 EDT Tai Azar MD POINT OF CARE TEST ORDERABLES [facility] [address], [place] [id number] * (ABNORMAL) DIFFERENTIAL, AUTOMATED MANUAL (07/09/2023 6:37 EDT) [facility] % Neutrophils 72.2 Not Indicated % 07/09/2023 7:36 [facility] % Lymphocytes 15.7 Not Indicated % 07/09/2023 7:36 [facility] % Monocytes 7.8 Not Indicated % 07/09/2023 7:36 [facility] % Eosinophils 1.7 Not Indicated % 07/09/2023 7:36 [facility] % Myelocytes 2.6 Not Indicated % 07/09/2023 7:36 [facility] Absolute Neutrophils 6.95 2.20 - 8.85 K/cmm 07/09/2023 7:36 [facility] Absolute Lymphocytes 1.51 1.09 - 3.30 K/cmm 07/09/2023 7:36 [facility] Absolute Monocytes 0.75 0.10 - 0.80 K/cmm 07/09/2023 7:36 [facility] Absolute Eosinophils 0.16 0.03 - 0.61 K/cmm 07/09/2023 7:36 [facility] Absolute Myelocytes 0.25(H) <=0.00 K/cmm 07/09/2023 7:36 T [facility] Type of Differential: Manual 07/09/2023 7:36 [facility] Blood VENOUS BLOOD / Unknown Venipuncture / Unknown 07/09/2023 6:37 EDT 07/09/2023 6:49 EDT Ayden Lara Yi HEMATOLOGY & PF4 ORD ERABLES [facility] [address] [place] [address] * (ABNORMAL) BASIC METABOLIC PANEL (BMP) (07/09/2023 6:37 EDT) Sodium 125(L) 136 - 145 mmol/L 07/09/2023 8:02 [facility] Potassium 4.3 3.5 - 5.0 mmol/L 07/09/2023 8:02 [facility] Chloride 92(L) 96 - 110 mmol/L 07/09/2023 8:02 [facility] CO2 Total 24 22 - 32 mmol/L 07/09/2023 8:02 [facility] Anion Gap 9 5 - 14 mmol/L 07/09/2023 8:02 [facility] Glucose 234(H) 70 - 99 mg/dl 07/09/2023 8:02 [facility] Calcium 8.3(L) 8.5 - 10.5 mg/dL 07/09/2023 8:02 [facility] BUN 19 10 - 26 mg/dL 07/09/2023 8:02 [facility] Creatinine 0.47(L) 0.52 - 1.04 mg/dL 07/09/2023 8:02 [facility] eGFR 114 >60 mL/min/1.73 m2 07/09/2023 8:02 [facility] Blood VENOUS BLOOD / Unknown Venipuncture / Unknown 07/09/2023 6:37 EDT 07/09/2023 7:34 EDT Reza Brito MD CHEMISTRY & BLOOD GA S ORDERABLES Performing Organization Address City/[facility]/ZIP Co de Phone Number [facility] [address] [place] [address] * MAGNESIUM (07/09/2023 6:37 EDT) Magnesium 1.9 1.7 - 2.8 mg/dL 07/09/2023 8:02 EDT [facility] Blood VENOUS BLOOD / Unknown Venipuncture / Unknown 07/09/2023 6:37 EDT 07/09/2023 7:34 EDT Reza Brito MD CHEMISTRY & BLOOD GA S ORDERABLES Performing Organization Address [facility] Co de Phone Number [facility] [address] [place] [address] * PHOSPHORUS (07/09/2023 6:37 EDT) Phosphorus 4.2 2.5 - 4.5 mg/dL 07/09/2023 8:02 EDT [facility] Blood VENOUS BLOOD / Unknown Venipuncture / Unknown 07/09/2023 6:37 EDT 07/09/2023 7:34 EDT Reza Brito MD CHEMISTRY & BLOOD GA S ORDERABLES Performing Organization Address City/[facility]/ZIP Co de Phone Number [facility] [address] [place] [address] * (ABNORMAL) COMPLETE BLOOD COUNT AND DIFFERENTIAL (07/09/2023 6:37 EDT) WBC 9.62 4.00 - 12.40 K/cmm 07/09/2023 7:03 EDT [facility] RBC 2.69(L) 3.86 - 5.04 M/cmm 07/09/2023 7:03 [facility] Hemoglobin 7.6(L) 11.6 - 15.2 g/dL 07/09/2023 7:03 [facility] HCT 22.8(L) 34.9 - 44.4 % 07/09/2023 7:03 [facility] MCV 85 81 - 98 fL 07/09/2023 7:03 [facility] MCH 28.3 26.7 - 33.3 pg 07/09/2023 7:03 [facility] MCHC 33.3 32.1 - 35.9 g/dL 07/09/2023 7:03 [facility] RDW-CV 14.3 <14.7 % 07/09/2023 7:03 [facility] RDW-SD 44.3 <50.4 fl 07/09/2023 7:03 [facility] PLT 401(H) 141 - 377 K/cmm 07/09/2023 7:03 [facility] MPV 9.6 9.5 - 12.7 fL 07/09/2023 7:03 [facility] Blood VENOUS BLOOD / Unknown Venipuncture / Unknown 07/09/2023 6:37 EDT 07/09/2023 6:49 EDT Ayden Jennings PACKAGES & DNA PROBE ORDERABLES [facility] [address] [place] [address] * (ABNORMAL) SODIUM (07/08/2023 23:31 EDT) Sodium 125(L) 136 - 145 mmol/L 07/09/2023 0:30 EDT [facility] Blood VENOUS BLOOD / Unknown Venipuncture / Unknown 07/08/2023 23:31 EDT 07/09/2023 0:03 EDT Tai Azar MD CHEMISTRY & BLOOD G ORDERABLES Performing Organization Address City/[facility]/ZIP Co de Phone Number [facility] [address] [place] [address] * (ABNORMAL) POCT GLUCOSE, INTERFACED (07/08/2023 21:52 EDT) Glucose, POC 206(H) 70 - 100 mg/dL 07/08/2023 21:54 EDT [facility] HN LAB POC COMMENT (GLUCOSE) Test Performed by Nursing Services 07/08/2023 21:54 EDT [facility] Blood CAPILLARY BLOOD / Unknown 07/08/2023 21:52 EDT 07/08/2023 21:54 EDT Tai Azar MD POINT OF CARE TEST ORDERABLES Performing Organization Address [facility] Co de Phone Number [facility] [address] [place] [address] * (ABNORMAL) SODIUM (07/08/2023 18:49 EDT) Sodium 125(L) 136 - 145 mmol/L 07/08/2023 20:07 EDT [facility] Blood VENOUS BLOOD / Unknown Venipuncture / Unknown 07/08/2023 18:49 EDT 07/08/2023 19:39 EDT Tai Azar MD CHEMISTRY & BLOOD G ORDERABLES Performing Organization Address City/[facility]/ZIP Co de Phone Number [facility] [address], [place] [id number] * (ABNORMAL) POCT GLUCOSE, INTERFACED (07/08/2023 17:41 EDT) Glucose, POC 209(H) 70 - 100 mg/dL 07/08/2023 17:42 EDT [facility] HN LAB POC COMMENT (GLUCOSE) Test Performed by Nursing Services 07/08/2023 17:42 EDT [facility] Blood CAPILLARY BLOOD / Unknown 07/08/2023 17:41 EDT 07/08/2023 17:42 EDT Tai Azar MD POINT OF CARE TEST ORDERABLES Performing Organization Address City/[facility]/ZIP Co de Phone Number [facility] [address] [place] [address] * (ABNORMAL) POCT GLUCOSE, INTERFACED (07/08/2023 13:03 EDT) Glucose, POC 185(H) 70 - 100 mg/dL 07/08/2023 13:04 EDT [facility] HN LAB POC COMMENT (GLUCOSE) Test Performed by Nursing Services 07/08/2023 13:04 EDT [facility] Blood CAPILLARY BLOOD / Unknown 07/08/2023 13:03 EDT 07/08/2023 13:04 EDT Tai Azar MD POINT OF CARE TEST ORDERABLES Performing Organization Address [facility] Co de Phone Number [facility] [address] [place] [address] * (ABNORMAL) SODIUM (07/08/2023 12:03 EDT) Sodium 126(L) 136 - 145 mmol/L 07/08/2023 13:13 EDT [facility] Blood VENOUS BLOOD / Unknown Venipuncture / Unknown 07/08/2023 12:03 EDT 07/08/2023 12:31 EDT Tai Azar MD CHEMISTRY & BLOOD G ORDERABLES Performing Organization Address [facility]/ZIP Co de Phone Number [facility] [address], [place] [id number] * (ABNORMAL) POCT GLUCOSE, INTERFACED (07/08/2023 7:32 EDT) Glucose, POC 192(H) 70 - 100 mg/dL 07/08/2023 7:33 [facility] HN LAB POC COMMENT (GLUCOSE) Test Performed by Nursing Services 07/08/2023 7:33 [facility] Blood CAPILLARY BLOOD / Unknown 07/08/2023 7:32 EDT 07/08/2023 7:33 EDT Tai Azar MD POINT OF CARE TEST ORDERABLES [facility] [address], [place] [id number] * (ABNORMAL) DIFFERENTIAL, AUTOMATED MANUAL (07/08/2023 6:20 EDT) % Neutrophils 71.3 Not Indicated % 07/08/2023 7:28 [facility] % Lymphocytes 18.3 Not Indicated % 07/08/2023 7:28 [facility] % Monocytes 4.3 Not Indicated % 07/08/2023 7:28 [facility] % Eosinophils 0.9 Not Indicated % 07/08/2023 7:28 [facility] % Basophils 1.7 Not Indicated % 07/08/2023 7:28 [facility] % Metamyelocytes 2.6 Not Indicated % 07/08/2023 7:28 [facility] % Myelocytes 0.9 Not Indicated % 07/08/2023 7:28 [facility] Absolute Neutrophils 6.53 2.20 - 8.85 K/cmm 07/08/2023 7:28 [facility] Absolute Lymphocytes 1.68 1.09 - 3.30 K/cmm 07/08/2023 7:28 [facility] Absolute Monocytes 0.39 0.10 - 0.80 K/cmm 07/08/2023 7:28 [facility] Absolute Eosinophils 0.08 0.03 - 0.61 K/cmm 07/08/2023 7:28 [facility] ABS Basophils 0.16(H) 0.01 - 0.11 K/cmm 07/08/2023 7:28 [facility] Absolute Metamyelocytes 0.24(H) <=0.00 K/cmm 07/08/2023 7:28 [facility] Absolute Myelocytes 0.08(H) <=0.00 K/cmm 07/08/2023 7:28 [facility] Type of Differential: Manual 07/08/2023 7:28 [facility] Blood VENOUS BLOOD / Unknown Venipuncture / Unknown 07/08/2023 6:20 EDT 07/08/2023 6:35 EDT Ayden Jennings HEMATOLOGY & PF4 ORD ERABLES [facility] [address] [place] [address] * (ABNORMAL) BASIC METABOLIC PANEL (BMP) (07/08/2023 6:20 EDT) Sodium 126(L) 136 - 145 mmol/L 07/08/2023 7:19 [facility] Potassium 4.1 3.5 - 5.0 mmol/L 07/08/2023 7:19 [facility] Chloride 93(L) 96 - 110 mmol/L 07/08/2023 7:19 [facility] CO2 Total 23 22 - 32 mmol/L 07/08/2023 7:19 [facility] Anion Gap 10 5 - 14 mmol/L 07/08/2023 7:19 [facility] Glucose 191(H) 70 - 99 mg/dl 07/08/2023 7:19 [facility] Calcium 8.5 8.5 - 10.5 mg/dL 07/08/2023 7:19 [facility] BUN 16 10 - 26 mg/dL 07/08/2023 7:19 [facility] Creatinine 0.47(L) 0.52 - 1.04 mg/dL 07/08/2023 7:19 EDT [facility] eGFR 114 >60 mL/min/1.73 m2 07/08/2023 7:19 EDT [facility] Blood VENOUS BLOOD / Unknown Venipuncture / Unknown 07/08/2023 6:20 EDT 07/08/2023 6:37 EDT Reza Brito MD CHEMISTRY & BLOOD GA S ORDERABLES [facility] [address] [place] [address] * MAGNESIUM (07/08/2023 6:20 EDT) Magnesium 1.8 1.7 - 2.8 mg/dL 07/08/2023 7:19 EDT [facility] Blood VENOUS BLOOD / Unknown Venipuncture / Unknown 07/08/2023 6:20 EDT 07/08/2023 6:37 EDT Reza Brito MD CHEMISTRY & BLOOD GA S ORDERABLES Performing Organization Address City/[facility]/ZIP Co de Phone Number [facility] [address] [place] [address] * PHOSPHORUS (07/08/2023 6:20 EDT) Phosphorus 4.5 2.5 - 4.5 mg/dL 07/08/2023 7:19 EDT [facility] Blood VENOUS BLOOD / Unknown Venipuncture / Unknown 07/08/2023 6:20 EDT 07/08/2023 6:37 EDT Reza Brito MD CHEMISTRY & BLOOD GA S ORDERABLES Performing Organization Address City/[facility]/ZIP Co de Phone Number [facility] [address] [place] [address] * (ABNORMAL) COMPLETE BLOOD COUNT AND DIFFERENTIAL (07/08/2023 6:20 EDT) WBC 9.16 4.00 - 12.40 K/cmm 07/08/2023 6:44 EDT [facility] RBC 2.81(L) 3.86 - 5.04 M/cmm 07/08/2023 6:44 T [facility] Hemoglobin 8.2(L) 11.6 - 15.2 g/dL 07/08/2023 6:44 T [facility] HCT 24.1(L) 34.9 - 44.4 % 07/08/2023 6:44 EDT [facility] MCV 86 81 - 98 fL 07/08/2023 6:44 T [facility] MCH 29.2 26.7 - 33.3 pg 07/08/2023 6:44 T [facility] MCHC 34.0 32.1 - 35.9 g/dL 07/08/2023 6:44 [facility] RDW-CV 14.3 <14.7 % 07/08/2023 6:44 T [facility] RDW-SD 44.8 <50.4 fl 07/08/2023 6:44 [facility] PLT 447(H) 141 - 377 K/cmm 07/08/2023 6:44 [facility] MPV 9.3(L) 9.5 - 12.7 fL 07/08/2023 6:44 [facility] Blood VENOUS BLOOD / Unknown Venipuncture / Unknown 07/08/2023 6:20 EDT 07/08/2023 6:35 EDT Ayden Jennings PACKAGES & DNA PROBE ORDERABLES [facility] [address] [place] [address] * (ABNORMAL) SODIUM (07/07/2023 23:48 EDT) Sodium 126(L) 136 - 145 mmol/L 07/08/2023 0:19 EDT [facility] Blood VENOUS BLOOD / Unknown Venipuncture / Unknown 07/07/2023 23:48 EDT 07/07/2023 23:57 EDT Tai Azar MD CHEMISTRY & BLOOD G ORDERABLES Performing Organization Address City/[facility] Co de Phone Number [facility] [address] [place] [address] * (ABNORMAL) POCT GLUCOSE, INTERFACED (07/07/2023 21:15 EDT) Glucose, POC 195(H) 70 - 100 mg/dL 07/07/2023 21:17 EDT [facility] HN LAB POC COMMENT (GLUCOSE) Test Performed by Nursing Services 07/07/2023 21:17 EDT [facility] Blood CAPILLARY BLOOD / Unknown 07/07/2023 21:15 EDT 07/07/2023 21:17 EDT Tai Azar MD POINT OF CARE TEST ORDERABLES Performing Organization Address [facility] Co de Phone Number [facility] [address] [place] [address] * (ABNORMAL) SODIUM (07/07/2023 18:01 EDT) Sodium 127(L) 136 - 145 mmol/L 07/07/2023 18:22 EDT [facility] Blood VENOUS BLOOD / Unknown Venipuncture / Unknown 07/07/2023 18:01 EDT 07/07/2023 18:11 EDT Tai Azar MD CHEMISTRY & BLOOD G ORDERABLES Performing Organization Address City/[facility]/ZIP Co de Phone Number [facility] [address] [place] [address] * (ABNORMAL) POCT GLUCOSE, INTERFACED (07/07/2023 17:31 EDT) Glucose, POC 217(H) 70 - 100 mg/dL 07/07/2023 17:32 EDT [facility] HN LAB POC COMMENT (GLUCOSE) Test Performed by Nursing Services 07/07/2023 17:32 EDT [facility] Blood CAPILLARY BLOOD / Unknown 07/07/2023 17:31 EDT 07/07/2023 17:32 EDT Tai Azar MD POINT OF CARE TEST ORDERABLES [facility] [address] [place] [address] * (ABNORMAL) SODIUM (07/07/2023 12:45 EDT) [facility] Sodium 129(L) 136 - 145 mmol/L 07/07/2023 13:19 EDT [facility] Blood VENOUS BLOOD / Unknown Venipuncture / Unknown 07/07/2023 12:45 EDT 07/07/2023 12:57 EDT Tai Azar MD CHEMISTRY & BLOOD G ORDERABLES Performing Organization Address [facility]/ZIP Co de Phone Number [facility] [address] [place] [address] * (ABNORMAL) POCT GLUCOSE, INTERFACED (07/07/2023 11:49 EDT) [facility] Signature Glucose, POC 199(H) 70 - 100 mg/dL 07/07/2023 11:51 EDT [facility] HN LAB POC COMMENT (GLUCOSE) Test Performed by Nursing Services 07/07/2023 11:51 EDT [facility] Blood CAPILLARY BLOOD / Unknown 07/07/2023 11:49 EDT 07/07/2023 11:51 EDT Tai Azar MD POINT OF CARE TEST ORDERABLES [facility] [address], [place] [address] * (ABNORMAL) POCT GLUCOSE, INTERFACED (07/07/2023 6:54 EDT) [facility] Glucose, POC 194(H) 70 - 100 mg/dL 07/07/2023 6:56 EDT [facility] HN LAB POC COMMENT (GLUCOSE) Test Performed by Nursing Services 07/07/2023 6:56 EDT [facility] Blood CAPILLARY BLOOD / Unknown 07/07/2023 6:54 EDT 07/07/2023 6:56 EDT Tai Azar MD POINT OF CARE TEST ORDERABLES Performing Organization Address City/State/[facility] Co de Phone Number [facility] [address], [place] [id number] * (ABNORMAL) DIFFERENTIAL, AUTOMATED MANUAL (07/07/2023 6:45 EDT) [facility] % Neutrophils 73.0 Not Indicated % 07/07/2023 7:37 [facility] % Lymphocytes 14.8 Not Indicated % 07/07/2023 7:37 [facility] % Monocytes 3.5 Not Indicated % 07/07/2023 7:37 [facility] % Eosinophils 3.5 Not Indicated % 07/07/2023 7:37 [facility] % Basophils 0.9 Not Indicated % 07/07/2023 7:37 [facility] % Metamyelocytes 2.6 Not Indicated % 07/07/2023 7:37 [facility] % Myelocytes 1.7 Not Indicated % 07/07/2023 7:37 [facility] Absolute Neutrophils 7.46 2.20 - 8.85 K/cmm 07/07/2023 7:37 [facility] Absolute Lymphocytes 1.51 1.09 - 3.30 K/cmm 07/07/2023 7:37 [facility] Absolute Monocytes 0.36 0.10 - 0.80 K/cm 07/07/2023 7:37 [facility] Absolute Eosinophils 0.36 0.03 - 0.61 K/[facility] 07/07/2023 7:37 [facility] ABS Basophils 0.09 0.01 - 0.11 K/[facility] 07/07/2023 7:37 [facility] Absolute Metamyelocytes 0.27(H) <=0.00 K/[facility] 07/07/2023 7:37 [facility] Absolute Myelocytes 0.17(H) <=0.00 K/[facility] 07/07/2023 7:37 [facility] Type of Differential: Manual 07/07/2023 7:37 [facility] Blood VENOUS BLOOD / Unknown Venipuncture / Unknown 07/07/2023 6:45 EDT 07/07/2023 7:04 EDT Ayden Jennings HEMATOLOGY & PF4 ORD ERABLES [facility] [address] [place] [address] * (ABNORMAL) BASIC METABOLIC PANEL (BMP) (07/07/2023 6:45 EDT) Sodium 128(L) 136 - 145 mmol/L 07/07/2023 7:41 [facility] Potassium 4.0 3.5 - 5.0 mmol/L 07/07/2023 7:41 [facility] Chloride 95(L) 96 - 110 mmol/L 07/07/2023 7:41 [facility] CO2 Total 25 22 - 32 mmol/L 07/07/2023 7:41 [facility] Anion Gap 8 5 - 14 mmol/L 07/07/2023 7:41 [facility] Glucose 186(H) 70 - 99 mg/dl 07/07/2023 7:41 [facility] Calcium 8.5 8.5 - 10.5 mg/dL 07/07/2023 7:41 EDT [facility] BUN 15 10 - 26 mg/dL 07/07/2023 7:41 EDT [facility] Creatinine 0.46(L) 0.52 - 1.04 mg/dL 07/07/2023 7:41 EDT [facility] eGFR 115 >60 mL/min/1.73 m2 07/07/2023 7:41 EDT [facility] Blood VENOUS BLOOD / Unknown Venipuncture / Unknown 07/07/2023 6:45 EDT 07/07/2023 7:07 EDT Reza Brito MD CHEMISTRY & BLOOD GA S ORDERABLES Performing Organization Address City/[facility]/ZIP Co de Phone Number [facility] [address] [place] [address] * MAGNESIUM (07/07/2023 6:45 EDT) Magnesium 1.7 1.7 - 2.8 mg/dL 07/07/2023 7:41 EDT [facility] Blood VENOUS BLOOD / Unknown Venipuncture / Unknown 07/07/2023 6:45 EDT 07/07/2023 7:07 EDT Reza Brito MD CHEMISTRY & BLOOD GA S ORDERABLES Performing Organization Address City/[facility]/ZIP Co de Phone Number [facility] [address] [place] [address] * (ABNORMAL) PHOSPHORUS (07/07/2023 6:45 EDT) Phosphorus 4.6(H) 2.5 - 4.5 mg/dL 07/07/2023 7:41 EDT [facility] Blood VENOUS BLOOD / Unknown Venipuncture / Unknown 07/07/2023 6:45 EDT 07/07/2023 7:07 EDT Reza Brito MD CHEMISTRY & BLOOD GA S ORDERABLES Performing Organization Address City/[facility]/ZIP Co de Phone Number [facility] [address] [place] [address] * (ABNORMAL) COMPLETE BLOOD COUNT AND DIFFERENTIAL (07/07/2023 6:45 EDT) WBC 10.22 4.00 - 12.40 K/cmm 07/07/2023 7:15 EDT [facility] RBC 2.80(L) 3.86 - 5.04 M/cmm 07/07/2023 7:15 T [facility] Hemoglobin 8.2(L) 11.6 - 15.2 g/dL 07/07/2023 7:15 [facility] HCT 23.8(L) 34.9 - 44.4 % 07/07/2023 7:15 [facility] MCV 85 81 - 98 fL 07/07/2023 7:15 [facility] MCH 29.3 26.7 - 33.3 pg 07/07/2023 7:15 [facility] MCHC 34.5 32.1 - 35.9 g/dL 07/07/2023 7:15 [facility] RDW-CV 14.7(H) <14.7 % 07/07/2023 7:15 [facility] RDW-SD 45.6 <50.4 fl 07/07/2023 7:15 [facility] PLT 493(H) 141 - 377 K/cmm 07/07/2023 7:15 [facility] MPV 9.3(L) 9.5 - 12.7 fL 07/07/2023 7:15 [facility] Blood VENOUS BLOOD / Unknown Venipuncture / Unknown 07/07/2023 6:45 EDT 07/07/2023 7:04 EDT Ayden Jennings PACKAGES & DNA PROBE ORDERABLES Performing Organization Address City/[facility]/ZIP Co de Phone Number [facility] [address], [place] [id number] * (ABNORMAL) SODIUM (07/07/2023 0:23 EDT) Sodium 126(L) 136 - 145 mmol/L 07/07/2023 0:49 EDT [facility] Blood VENOUS BLOOD / Unknown Venipuncture / Unknown 07/07/2023 0:23 EDT 07/07/2023 0:26 EDT Tai Azar MD CHEMISTRY & BLOOD G ORDERABLES Performing Organization Address [facility]/ZIP Co de Phone Number [facility] [address], [place] [phone] * (ABNORMAL) POCT GLUCOSE, INTERFACED (07/06/2023 20:31 EDT) Glucose, POC 185(H) 70 - 100 mg/dL 07/06/2023 20:44 EDT [facility] HN LAB POC COMMENT (GLUCOSE) Test Performed by Nursing Services 07/06/2023 20:44 EDT [facility] Blood CAPILLARY BLOOD / Unknown 07/06/2023 20:31 EDT 07/06/2023 20:44 EDT Tai Azar MD POINT OF CARE TEST ORDERABLES Performing Organization Address [facility]/ZIP Co de Phone Number [facility] [address], [place] [phone] * (ABNORMAL) SODIUM (07/06/2023 17:48 EDT) Sodium 129(L) 136 - 145 mmol/L 07/06/2023 18:29 EDT [facility] Blood VENOUS BLOOD / Unknown Venipuncture / Unknown 07/06/2023 17:48 EDT 07/06/2023 18:14 EDT Tai Azar MD CHEMISTRY & BLOOD G ORDERABLES Performing Organization Address [facility]/ZIP Co de Phone Number [facility] [address] [place] [address] * (ABNORMAL) POCT GLUCOSE, INTERFACED (07/06/2023 17:48 EDT) Glucose, POC 188(H) 70 - 100 mg/dL 07/06/2023 17:49 EDT [facility] HN LAB POC COMMENT (GLUCOSE) Test Performed by Nursing Services 07/06/2023 17:49 EDT [facility] Blood CAPILLARY BLOOD / Unknown 07/06/2023 17:48 EDT 07/06/2023 17:49 EDT Tai Azar MD POINT OF CARE TEST ORDERABLES Performing Organization Address City/[facility] Co de Phone Number [facility] [address] [place] [address] * (ABNORMAL) SODIUM (07/06/2023 12:36 EDT) Sodium 129(L) 136 - 145 mmol/L 07/06/2023 13:32 EDT [facility] Blood VENOUS BLOOD / Unknown Venipuncture / Unknown 07/06/2023 12:36 EDT 07/06/2023 12:55 EDT Tai Azar MD CHEMISTRY & BLOOD G ORDERABLES Performing Organization Address City/[facility]/ZIP Co de Phone Number [facility] [address] [place] [address] * (ABNORMAL) POCT GLUCOSE, INTERFACED (07/06/2023 11:35 EDT) Glucose, POC 210(H) 70 - 100 mg/dL 07/06/2023 11:36 EDT [facility] HN LAB POC COMMENT (GLUCOSE) Test Performed by Nursing Services 07/06/2023 11:36 EDT [facility] Blood CAPILLARY BLOOD / Unknown 07/06/2023 11:35 EDT 07/06/2023 11:36 EDT Tai Azar MD POINT OF CARE TEST ORDERABLES [facility] [address], [place] [address] * (ABNORMAL) DIFFERENTIAL, AUTOMATED MANUAL (07/06/2023 7:25 EDT) % Neutrophils 74.6 Not Indicated % 07/06/2023 8:09 [facility] % Lymphocytes 13.1 Not Indicated % 07/06/2023 8:09 [facility] % Monocytes 8.8 Not Indicated % 07/06/2023 8:09 [facility] % Eosinophils 0.9 Not Indicated % 07/06/2023 8:09 [facility] % Myelocytes 2.6 Not Indicated % 07/06/2023 8:09 [facility] Stomatocytes 2+ 07/06/2023 8:09 [facility] Basophilic Stippling Present in <2% of RBCs 07/06/2023 8:09 [facility] Clumped Platelets Few platelet clumps present 07/06/2023 8:09 [facility] Absolute Neutrophils 8.91(H) 2.20 - 8.85 K/cmm 07/06/2023 8:09 [facility] Absolute Lymphocytes 1.56 1.09 - 3.30 K/cmm 07/06/2023 8:09 [facility] Absolute Monocytes 1.05(H) 0.10 - 0.80 K/cmm 07/06/2023 8:09 [facility] Absolute Eosinophils 0.11 0.03 - 0.61 K/cmm 07/06/2023 8:09 [facility] Absolute Myelocytes 0.31(H) <=0.00 K/cmm 07/06/2023 8:09 [facility] Type of Differential: Manual 07/06/2023 8:09 [facility] Blood VENOUS BLOOD / Unknown Venipuncture / Unknown 07/06/2023 7:25 EDT 07/06/2023 7:29 EDT Ayden Lara Yi HEMATOLOGY & PF4 ORD ERABLES [facility] [address] [place] [address] * (ABNORMAL) BASIC METABOLIC PANEL (BMP) (07/06/2023 7:25 EDT) Sodium 129(L) 136 - 145 mmol/L 07/06/2023 8:03 [facility] Potassium 3.7 3.5 - 5.0 mmol/L 07/06/2023 8:03 [facility] Chloride 94(L) 96 - 110 mmol/L 07/06/2023 8:03 [facility] CO2 Total 24 22 - 32 mmol/L 07/06/2023 8:03 [facility] Anion Gap 11 5 - 14 mmol/L 07/06/2023 8:03 [facility] Glucose 163(H) 70 - 99 mg/dl 07/06/2023 8:03 [facility] Calcium 8.5 8.5 - 10.5 mg/dL 07/06/2023 8:03 [facility] BUN 12 10 - 26 mg/dL 07/06/2023 8:03 [facility] Creatinine 0.44(L) 0.52 - 1.04 mg/dL 07/06/2023 8:03 [facility] eGFR 116 >60 mL/min/1.73 m2 07/06/2023 8:03 [facility] Blood VENOUS BLOOD / Unknown Venipuncture / Unknown 07/06/2023 7:25 EDT 07/06/2023 7:29 EDT Reza Brito MD CHEMISTRY & BLOOD GA S ORDERABLES Performing Organization Address City/[facility]/ZIP Co de Phone Number [facility] [address] [place] [address] * MAGNESIUM (07/06/2023 7:25 EDT) Magnesium 1.9 1.7 - 2.8 mg/dL 07/06/2023 8:03 EDT [facility] Blood VENOUS BLOOD / Unknown Venipuncture / Unknown 07/06/2023 7:25 EDT 07/06/2023 7:29 EDT Reza Brito MD CHEMISTRY & BLOOD GA S ORDERABLES Performing Organization Address [facility] Co de Phone Number [facility] [address], [place] [phone] * PHOSPHORUS (07/06/2023 7:25 EDT) Phosphorus 4.2 2.5 - 4.5 mg/dL 07/06/2023 8:03 EDT [facility] Blood VENOUS BLOOD / Unknown Venipuncture / Unknown 07/06/2023 7:25 EDT 07/06/2023 7:29 EDT Reza Brito MD CHEMISTRY & BLOOD GA S ORDERABLES Performing Organization Address [facility]/ZIP Co de Phone Number [facility] [address], [place] [phone] * (ABNORMAL) COMPLETE BLOOD COUNT AND DIFFERENTIAL (07/06/2023 7:25 EDT) WBC 11.94 4.00 - 12.40 K/cmm 07/06/2023 7:57 EDT [facility] RBC 3.11(L) 3.86 - 5.04 M/cmm 07/06/2023 7:57 EDT [facility] Hemoglobin 9.2(L) 11.6 - 15.2 g/dL 07/06/2023 7:57 EDT [facility] HCT 26.3(L) 34.9 - 44.4 % 07/06/2023 7:57 T [facility] MCV 85 81 - 98 fL 07/06/2023 7:57 T [facility] MCH 29.6 26.7 - 33.3 pg 07/06[facility]2023 [facility] MCHC 35.0 32.1 - 35.9 g/dL 07/06/2023 7:57 [facility] RDW-CV 14.8(H) <14.7 % 07/06/2023 7:57 [facility] RDW-SD 45.7 <50.4 fl 07/06/2023 7:57 [facility] PLT 587(H) 141 - 377 K/cmm 07/06/2023 7:57 [facility] MPV 9.2(L) 9.5 - 12.7 fL 07/06/2023 7:57 [facility] Blood VENOUS BLOOD / Unknown Venipuncture / Unknown 07/06/2023 7:25 EDT 07/06/2023 7:29 EDT Ayden Jennings PACKAGES & DNA PROBE ORDERABLES [facility] [address] [place] [address] * (ABNORMAL) POCT GLUCOSE, INTERFACED (07/06/2023 6:22 EDT) Glucose, POC 141(H) 70 - 100 mg/dL 07/06/2023 6:27 EDT [facility] HN LAB POC COMMENT (GLUCOSE) Test Performed by Nursing Services 07/06/2023 6:27 EDT [facility] Blood CAPILLARY BLOOD / Unknown 07/06/2023 6:22 EDT 07/06/2023 6:26 EDT Tai Azar MD POINT OF CARE TEST ORDERABLES Performing Organization Address [facility]/ZIP Co de Phone Number [facility] [address] [place] [address] * (ABNORMAL) SODIUM (07/05/2023 23:46 EDT) Sodium 129(L) 136 - 145 mmol/L 07/06/2023 0:15 EDT [facility] Blood VENOUS BLOOD / Unknown Venipuncture / Unknown 07/05/2023 23:46 EDT 07/06/2023 0:03 EDT Tai Azar MD CHEMISTRY & BLOOD G ORDERABLES Performing Organization Address [facility]/ZIP Co de Phone Number [facility] [address] [place] [address] * (ABNORMAL) POCT GLUCOSE, INTERFACED (07/05/2023 20:38 EDT) Glucose, POC 156(H) 70 - 100 mg/dL 07/05/2023 22:03 EDT [facility] HN LAB POC COMMENT (GLUCOSE) Test Performed by Nursing Services 07/05/2023 22:03 EDT [facility] Blood CAPILLARY BLOOD / Unknown 07/05/2023 20:38 EDT 07/05/2023 22:03 EDT Tai Azar MD POINT OF CARE TEST ORDERABLES Performing Organization Address City/[facility]/ZIP Co de Phone Number [facility] [address] [place] [address] * (ABNORMAL) SODIUM (07/05/2023 17:53 EDT) Sodium 129(L) 136 - 145 mmol/L 07/05/2023 18:26 EDT [facility] Blood VENOUS BLOOD / Unknown Venipuncture / Unknown 07/05/2023 17:53 EDT 07/05/2023 17:59 EDT Tai Azar MD CHEMISTRY & BLOOD G ORDERABLES [facility] [address], [place] [phone] * (ABNORMAL) POCT GLUCOSE, INTERFACED (07/05/2023 17:10 EDT) Glucose, POC 284(H) 70 - 100 mg/dL 07/05/2023 17:11 EDT [facility] HN LAB POC COMMENT (GLUCOSE) Test Performed by Nursing Services 07/05/2023 17:11 EDT [facility] Blood CAPILLARY BLOOD / Unknown 07/05/2023 17:10 EDT 07/05/2023 17:11 EDT Tai Azar MD POINT OF CARE TEST ORDERABLES Performing Organization Address City/[facility]/ZIP Co de Phone Number [facility] [address] [place] [address] * (ABNORMAL) POCT GLUCOSE, INTERFACED (07/05/2023 13:46 EDT) Glucose, POC 152(H) 70 - 100 mg/dL 07/05/2023 13:48 EDT [facility] HN LAB POC COMMENT (GLUCOSE) Test Performed by Nursing Services 07/05/2023 13:48 EDT [facility] Blood CAPILLARY BLOOD / Unknown 07/05/2023 13:46 EDT 07/05/2023 13:47 EDT Moo Monique MD POINT OF CARE TEST ORDERABLES Performing Organization Address City/[facility]/ZIP Co de Phone Number [facility] [address] [place] [address] * (ABNORMAL) SODIUM (07/05/2023 11:48 EDT) Sodium 129(L) 136 - 145 mmol/L 07/05/2023 12:41 EDT [facility] Blood VENOUS BLOOD / Unknown Venipuncture / Unknown 07/05/2023 11:48 EDT 07/05/2023 12:17 EDT Tai Azar MD CHEMISTRY & BLOOD G ORDERABLES Performing Organization Address City/[facility]/ZIP Co de Phone Number [facility] [address], [place] [phone] * ECG REPORT - SCANNED (07/05/2023 11:36 EDT) 07/05/2023 11:3 6 EDT Scan 2 Nursing Coordinator PROCEDURE/MINOR VI GICAL ORDERABLES * (ABNORMAL) POCT GLUCOSE, INTERFACED (07/05/2023 10:36 EDT) Glucose, POC 212(H) 70 - 100 mg/dL 07/05/2023 11:23 EDT [facility] HN LAB POC COMMENT (GLUCOSE) Test Performed by Nursing Services 07/05/2023 11:23 EDT [facility] Blood CAPILLARY BLOOD / Unknown 07/05/2023 10:36 EDT 07/05/2023 11:23 EDT Tai Azar MD POINT OF CARE TEST ORDERABLES Performing Organization Address City/[facility]/ZIP Co de Phone Number [facility] [address], [place] [phone] * TYPE AND SCREEN (07/05/2023 9:17 EDT) ABO O 07/05/2023 10:31 EDT [facility] Rh Factor Positive 07/05/2023 10:31 EDT [facility] Antibody Screen Negative 07/05/2023 10:31 EDT [facility] Specimen Expires: 07/08/2023 @ 23:59 07/05/2023 10:31 EDT [facility] Blood VENOUS BLOOD / Unknown Venipuncture / Unknown 07/05/2023 9:17 EDT 07/05/2023 9:32 EDT Leesa Buenrostro MD BLOOD BANK TESTS [facility] [address] [place] [address] * (ABNORMAL) POCT GLUCOSE, INTERFACED (07/05/2023 8:43 EDT) Glucose, POC 128(H) 70 - 100 mg/dL 07/05/2023 8:44 EDT [facility] HN LAB POC COMMENT (GLUCOSE) Test Performed by Nursing Services 07/05/2023 8:44 EDT [facility] Blood CAPILLARY BLOOD / Unknown 07/05/2023 8:43 EDT 07/05/2023 8:44 EDT Tai Azar MD POINT OF CARE TEST ORDERABLES Performing Organization Address City/[facility]/ZIP Co de Phone Number [facility] [address] [place] [address] * PREPARE RED BLOOD CELLS (07/05/2023 8:17 EDT) Product Code [id number] [facility] BLOOD B[facility] Donor Number [id number] U [facility] BLOOD BANK Unit ABO O [facility] BLOOD [facility]ANK Unit Rh POS [facility] B[facility] Unit Status TR^Transfuse [facility] BLOOD BANK Product Expiration Date [id number] [facility] BLO[facility] Unit Blood Type Code 5100 [facility] B[facility] Volume 330 [facility] BLOOD BANK Coding System [id number] [facility] BLO[facility] Blood 07/05/2023 8:17 EDT Leesa Buenrostro MD BLOOD BANK ORDERABLE S [facility] B[facility] [address] [facility] [place] [address] * (ABNORMAL) COMPLETE BLOOD COUNT (07/05/2023 7:44 EDT) WBC 8.56 4.00 - 12.40 K/cmm 07/05/2023 8:05 [facility] RBC 2.29(L) 3.86 - 5.04 M/cmm 07/05/2023 8:05 T [facility] Hemoglobin 6.7(LL) 11.6 - 15.2 g/dL 07/05/2023 8:05 [facility] HCT 20.1(LL) 34.9 - 44.4 % 07/05/2023 8:05 [facility] MCV 88 81 - 98 fL 07/05/2023 8:05 [facility] MCH 29.3 26.7 - 33.3 pg 07/05/2023 8:05 [facility] MCHC 33.3 32.1 - 35.9 g/dL 07/05/2023 8:05 [facility] RDW-CV 14.8(H) <14.7 % 07/05/2023 8:05 [facility] RDW-SD 48.2 <50.4 fl 07/05/2023 8:05 [facility] PLT 538(H) 141 - 377 K/cmm 07/05/2023 8:05 [facility] MPV 9.2(L) 9.5 - 12.7 fL 07/05/2023 8:05 [facility] Blood VENOUS BLOOD / Unknown Venipuncture / Unknown 07/05/2023 7:44 EDT 07/05/2023 7:49 EDT Leesa Buenrostro MD HEMATOLOGY & PF4 ORD ERABLES [facility] [address] [place] [address] * (ABNORMAL) DIFFERENTIAL, AUTOMATED MANUAL (07/05/2023 6:25 ED) % Neutrophils 67.0 Not Indicated % 07/05/2023 7:33 [facility] % Lymphocytes 15.6 Not Indicated % 07/05/2023 7:33 [facility] % Monocytes 9.6 Not Indicated % 07/05/2023 7:33 [facility] % Eosinophils 1.7 Not Indicated % 07/05/2023 7:33 [facility] % Basophils 0.9 Not Indicated % 07/05/2023 7:33 [facility] % Metamyelocytes 1.7 Not Indicated % 07/05/2023 7:33 [facility] % Myelocytes 3.5 Not Indicated % 07/05/2023 7:33 [facility] Absolute Neutrophils 5.90 2.20 - 8.85 K/cmm 07/05/2023 7:33 [facility] Absolute Lymphocytes 1.37 1.09 - 3.30 K/cmm 07/05/2023 7:33 [facility] Absolute Monocytes 0.85(H) 0.10 - 0.80 K/cmm 07/05/2023 7:33 [facility] Absolute Eosinophils 0.15 0.03 - 0.61 K/cmm 07/05/2023 7:33 [facility] ABS Basophils 0.08 0.01 - 0.11 K/cmm 07/05/2023 7:33 [facility] Absolute Metamyelocytes 0.15(H) <=0.00 K/cmm 07/05/2023 7:33 [facility] Absolute Myelocytes 0.31(H) <=0.00 K/cmm 07/05/2023 7:33 [facility] Type of Differential: Manual 07/05/2023 7:33 [facility] Blood VENOUS BLOOD / Unknown Venipuncture / Unknown 07/05/2023 6:25 EDT 07/05/2023 6:40 EDT Ayden Jennings HEMATOLOGY & PF4 ORD ERABLES [facility] [address], [place] [id number] * (ABNORMAL) COMPLETE BLOOD COUNT AND DIFFERENTIAL (07/05/2023 6:25 EDT) WBC 8.81 4.00 - 12.40 K/cmm 07/05/2023 6:52 EDT [facility] RBC 2.26(L) 3.86 - 5.04 M/cmm 07/05/2023 6:52 [facility] Hemoglobin 6.6(LL) 11.6 - 15.2 g/dL 07/05/2023 6:52 [facility] Comment:Pre-analytical varia bles cannot be excluded, suggest redraw where clinically indicated. HCT 19.6(LL) 34.9 - 44.4 % 07/05/2023 6:52 [facility] Comment:Pre-analytical varia bles cannot be excluded, suggest redraw where clinically indicated. MCV 87 81 - 98 fL 07/05/2023 6:52 [facility] MCH 29.2 26.7 - 33.3 pg 07/05/2023 6:52 [facility] MCHC 33.7 32.1 - 35.9 g/dL 07/05/2023 6:52 [facility] RDW-CV 14.8(H) <14.7 % 07/05/2023 6:52 [facility] RDW-SD 47.4 <50.4 fl 07/05/2023 6:52 [facility] PLT 548(H) 141 - 377 K/cmm 07/05/2023 6:52 [facility] MPV 9.2(L) 9.5 - 12.7 fL 07/05/2023 6:52 [facility] Blood VENOUS BLOOD / Unknown Venipuncture / Unknown 07/05/2023 6:25 EDT 07/05/2023 6:40 EDT Ayden Jennings PACKAGES & DNA PROBE ORDERABLES Performing Organization Address [facility] Co de Phone Number [facility] [address] [place] [address] * (ABNORMAL) ALBUMIN (07/05/2023 6:24 EDT) Pathologist [facility] Albumin 2.5(L) 3.4 - 4.9 g/dL 07/05/2023 10:39 EDT [facility] Blood VENOUS BLOOD / Unknown Venipuncture / Unknown 07/05/2023 6:24 EDT 07/05/2023 6:50 EDT Tiff Aviles MD CHEMISTRY & BLOOD GA S ORDERABLES Performing Organization Address [facility] de Phone Number [facility] [address] [place] [address] * (ABNORMAL) BASIC METABOLIC PANEL (BMP) (07/05/2023 6:24 EDT) Pathologist [facility] Sodium 130(L) 136 - 145 mmol/L 07/05/2023 7:27 [facility] Potassium 4.0 3.5 - 5.0 mmol/L 07/05/2023 7:27 [facility] Chloride 96 96 - 110 mmol/L 07/05/2023 7:27 [facility] CO2 Total 27 22 - 32 mmol/L 07/05/2023 7:27 [facility] Anion Gap 7 5 - 14 mmol/L 07/05/2023 7:27 [facility] Glucose 105(H) 70 - 99 mg/dl 07/05/2023 7:27 [facility] Calcium 8.1(L) 8.5 - 10.5 mg/dL 07/05/2023 7:27 [facility] BUN 12 10 - 26 mg/dL 07/05/2023 7:27 EDT [facility] Creatinine 0.51(L) 0.52 - 1.04 mg/dL 07/05/2023 7:27 EDT [facility] eGFR 112 >60 mL/min/1.73 m2 07/05/2023 7:27 EDT [facility] Blood VENOUS BLOOD / Unknown Venipuncture / Unknown 07/05/2023 6:24 EDT 07/05/2023 6:50 EDT Reza Brito MD CHEMISTRY & BLOOD GA S ORDERABLES [facility] [address] [place] [address] * MAGNESIUM (07/05/2023 6:24 EDT) Magnesium 2.0 1.7 - 2.8 mg/dL 07/05/2023 7:27 EDT [facility] Blood VENOUS BLOOD / Unknown Venipuncture / Unknown 07/05/2023 6:24 EDT 07/05/2023 6:50 EDT Reza Brito MD CHEMISTRY & BLOOD GA S ORDERABLES [facility] [address] [place] [address] * (ABNORMAL) PHOSPHORUS (07/05/2023 6:24 EDT) Phosphorus 5.1(H) 2.5 - 4.5 mg/dL 07/05/2023 7:27 EDT [facility] Blood VENOUS BLOOD / Unknown Venipuncture / Unknown 07/05/2023 6:24 EDT 07/05/2023 6:50 EDT Reza Brito MD CHEMISTRY & BLOOD GA S ORDERABLES [facility] [address], [place] [phone] * (ABNORMAL) SODIUM (07/05/2023 0:29 EDT) Sodium 131(L) 136 - 145 mmol/L 07/05/2023 1:05 EDT [facility] Blood VENOUS BLOOD / Unknown Venipuncture / Unknown 07/05/2023 0:29 EDT 07/05/2023 0:40 EDT Tai Azar MD CHEMISTRY & BLOOD G ORDERABLES Performing Organization Address [facility]/ZIP Co de Phone Number [facility] [address], [place] [id number] * (ABNORMAL) POCT GLUCOSE, INTERFACED (07/04/2023 22:46 EDT) Glucose, POC 218(H) 70 - 100 mg/dL 07/04/2023 22:47 EDT [facility] HN LAB POC COMMENT (GLUCOSE) Test Performed by Nursing Services 07/04/2023 22:47 EDT [facility] Blood CAPILLARY BLOOD / Unknown 07/04/2023 22:46 EDT 07/04/2023 22:47 EDT Moo Monique MD POINT OF CARE TEST ORDERABLES Performing Organization Address City/[facility]/ZIP Co de Phone Number [facility] [address], [place] [address] * (ABNORMAL) POCT GLUCOSE, INTERFACED (07/04/2023 21:46 EDT) Glucose, POC 264(H) 70 - 100 mg/dL 07/04/2023 22:46 EDT [facility] HN LAB POC COMMENT (GLUCOSE) Test Performed by Nursing Services 07/04/2023 22:46 EDT [facility] Blood CAPILLARY BLOOD / Unknown 07/04/2023 21:46 EDT 07/04/2023 22:46 EDT Tai Azar MD POINT OF CARE TEST ORDERABLES Performing Organization Address City/[facility]/ZIP Co de Phone Number [facility] [address] [place] [address] * (ABNORMAL) SODIUM (07/04/2023 17:41 EDT) Sodium 130(L) 136 - 145 mmol/L 07/04/2023 18:50 EDT [facility] Blood VENOUS BLOOD / Unknown Venipuncture / Unknown 07/04/2023 17:41 EDT 07/04/2023 17:51 EDT Tai Azar MD CHEMISTRY & BLOOD G ORDERABLES Performing Organization Address [facility]/ZIP Co de Phone Number [facility] [address] [place] [address] * (ABNORMAL) POCT GLUCOSE, INTERFACED (07/04/2023 16:58 EDT) Glucose, POC 135(H) 70 - 100 mg/dL 07/04/2023 21:44 EDT [facility] HN LAB POC COMMENT (GLUCOSE) Test Performed by Nursing Services 07/04/2023 21:44 EDT [facility] Blood CAPILLARY BLOOD / Unknown 07/04/2023 16:58 EDT 07/04/2023 21:44 EDT Tai Azar MD POINT OF CARE TEST ORDERABLES [facility] [address] [place] [address] * (ABNORMAL) SODIUM (07/04/2023 14:01 EDT) Sodium 128(L) 136 - 145 mmol/L 07/04/2023 14:56 EDT [facility] Blood VENOUS BLOOD / Unknown Venipuncture / Unknown 07/04/2023 14:01 EDT 07/04/2023 14:17 EDT Tai Azar MD CHEMISTRY & BLOOD G ORDERABLES Performing Organization Address City/[facility]/ZIP Co de Phone Number [facility] [address], [place] [phone] * ECG REPORT - SCANNED (07/04/2023 13:42 EDT) 07/04/2023 13:4 2 EDT Scan 2 Nursing Coordinator PROCEDURE/MINOR VI GICAL ORDERABLES * (ABNORMAL) POCT GLUCOSE, INTERFACED (07/04/2023 12:22 EDT) Glucose, POC 200(H) 70 - 100 mg/dL 07/04/2023 16:59 EDT [facility] HN LAB POC COMMENT (GLUCOSE) Test Performed by Nursing Services 07/04/2023 16:59 EDT [facility] Blood CAPILLARY BLOOD / Unknown 07/04/2023 12:22 EDT 07/04/2023 16:58 EDT Tai Azar MD POINT OF CARE TEST ORDERABLES Performing Organization Address [facility] Co de Phone Number [facility] [address], [place] [phone] * (ABNORMAL) BACTERIAL CULTURE/SMEAR, RESPIRATORY (07/04/2023 8:03 EDT) Organism ID Few mixed gram positive and gram negative organisms. No Staphylococcus aureus or Pseudomonas species isolated.(A) 07/06/2023 8:16 EDT [facility] Smear Few Neutrophils Present(A) 07/06/2023 8:16 EDT [facility] Smear No bacteria seen(A) 07/06/2023 8:16 EDT [facility] Sputum LEFT LUNG STRUCTURE / Unknown 07/04/2023 8:03 EDT 07/04/2023 8:41 EDT Lilli Garrison MD MICROBIOLOGY - GENER AL ORDERABLES Performing Organization Address City/[facility]/ZIP Co de Phone Number [facility] [address] [place] [address] * (ABNORMAL) POCT GLUCOSE, INTERFACED (07/04/2023 7:11 EDT) Glucose, POC 189(H) 70 - 100 mg/dL 07/04/2023 7:12 EDT [facility] HN LAB POC COMMENT (GLUCOSE) Test Performed by Nursing Services 07/04/2023 7:12 EDT [facility] Blood CAPILLARY BLOOD / Unknown 07/04/2023 7:11 EDT 07/04/2023 7:12 EDT Tai Azar MD POINT OF CARE TEST ORDERABLES Performing Organization Address City/[facility] Co de Phone Number [facility] [address] [place] [address] * XR CHEST PORTABLE 1 VIEW (07/04/2023 [...] above interpretation and agree with the findings. [id number] Narrative 07/04/2023 9:31 EDT XR CHEST PORTABLE [...] on comparison cross-sectional imaging. Resulting Agency Comment [id number] Procedure Note Thong Nagel MD - 07/04/2023 XR CHEST PORTABLE [...] the above interpretation andagree with the findings. [id number] Lilli Garrison MD IMG DIAGNOSTIC IMAGI NG ORDERABLES * (ABNORMAL) BASIC METABOLIC PANEL (BMP) (07/04/2023 6:30 EDT) Sodium 130(L) 136 - 145 mmol/L 07/04/2023 7:19 EDT [facility] Potassium 4.8 3.5 - 5.0 mmol/L 07/04/2023 7:19 EDT [facility] Chloride 95(L) 96 - 110 mmol/L 07/04/2023 7:19 [facility] CO2 Total 25 22 - 32 mmol/L 07/04/2023 7:19 [facility] Anion Gap 10 5 - 14 mmol/L 07/04/2023 7:19 [facility] Glucose 188(H) 70 - 99 mg/dl 07/04/2023 7:19 [facility] Calcium 8.4(L) 8.5 - 10.5 mg/dL 07/04/2023 7:19 [facility] BUN 13 10 - 26 mg/dL 07/04/2023 7:19 [facility] Creatinine 0.47(L) 0.52 - 1.04 mg/dL 07/04/2023 7:19 [facility] eGFR 114 >60 mL/min/1.73 m2 07/04/2023 7:19 [facility] Blood VENOUS BLOOD / Unknown Venipuncture / Unknown 07/04/2023 6:30 EDT 07/04/2023 6:43 EDT Reza Brito MD CHEMISTRY & BLOOD GA S ORDERABLES [facility] [address] [place] [address] * MAGNESIUM (07/04/2023 6:30 EDT) Magnesium 2.0 1.7 - 2.8 mg/dL 07/04/2023 7:19 EDT [facility] Blood VENOUS BLOOD / Unknown Venipuncture / Unknown 07/04/2023 6:30 EDT 07/04/2023 6:43 EDT Reza Brito MD CHEMISTRY & BLOOD GA S ORDERABLES [facility] [address] [place] [address] * (ABNORMAL) PHOSPHORUS (07/04/2023 6:30 EDT) Phosphorus 4.8(H) 2.5 - 4.5 mg/dL 07/04/2023 7:19 [facility] Blood VENOUS BLOOD / Unknown Venipuncture / Unknown 07/04/2023 6:30 EDT 07/04/2023 6:43 EDT Reza Brito MD CHEMISTRY & BLOOD GA S ORDERABLES [facility] [address] [place] [address] * (ABNORMAL) COMPLETE BLOOD COUNT AND DIFFERENTIAL (07/04/2023 6:30 EDT) Pathologist [facility] WBC 15.69(H) 4.00 - 12.40 K/cmm 07/04/2023 6:50 [facility] RBC 2.63(L) 3.86 - 5.04 M/cmm 07/04/2023 6:50 [facility] Hemoglobin 7.6(L) 11.6 - 15.2 g/dL 07/04/2023 6:50 [facility] HCT 23.0(L) 34.9 - 44.4 % 07/04/2023 6:50 [facility] MCV 88 81 - 98 fL 07/04/2023 6:50 [facility] MCH 28.9 26.7 - 33.3 pg 07/04/2023 6:50 [facility] MCHC 33.0 32.1 - 35.9 g/dL 07/04/2023 6:50 [facility] RDW-CV 15.1(H) <14.7 % 07/04/2023 6:50 [facility] RDW-SD 48.4 <50.4 fl 07/04/2023 6:50 [facility] PLT 679(H) 141 - 377 K/cmm 07/04/2023 6:50 [facility] MPV 9.2(L) 9.5 - 12.7 fL 07/04/2023 6:50 [facility] % Neutrophils 79.7 % 07/04/2023 6:50 [facility] % Lymphocytes 6.3 % 07/04/2023 6:50 [facility] % Monocytes 7.5 % 07/04/2023 6:50 [facility] % Eosinophils 0.9 % 07/04/2023 6:50 [facility] % Basophils 0.6 % 07/04/2023 6:50 [facility] % Immature Grans 5.0 % 07/04/19 24 6:50 [facility] Absolute Neutrophils 12.52(H) 2.20 - 8.85 K/cmm 07/04/2023 6:50 [facility] Absolute Lymphocytes 0.99(L) 1.09 - 3.30 K/cmm 07/04/2023 6:50 [facility] Absolute Monocytes 1.17(H) 0.10 - 0.80 K/cmm 07/04/2023 6:50 [facility] Absolute Eosinophils 0.14 0.03 - 0.61 K/cmm 07/04/2023 6:50 [facility] ABS Basophils 0.09 0.01 - 0.11 K/cmm 07/04/2023 6:50 [facility] Absolute Immature Grans 0.78(H) 0.00 - 0.06 K/cmm 07/04/2023 6:50 [facility] Type of Differential: Auto 07/04/2023 6:50 [facility] Blood VENOUS BLOOD / Unknown Venipuncture / Unknown 07/04/2023 6:30 EDT 07/04/2023 6:42 EDT Ayden Jennings PACKAGES & DNA PROBE ORDERABLES [facility] [address], [place] [phone] * XR CHEST PORTABLE 1 VIEW (07/04/2023 4:14 EDT) Anatomical Region Laterality Modality Computed Radiogr aphy 07/04/2023 9:11 EDT Impressions 07/04/2023 9:11 EDT Interval increased opacification of the left lung reflecting a combination of left lower lobe pneumonia, left upper lobe atelectasis and large pleural effusion. I have personally reviewed the images and the above interpretation and agree with the findings. [id number] Narrative 07/04/2023 9:11 EDT XR CHEST PORTABLE [...] aside from degenerative changes Resulting Agency Comment [id number] Procedure Note Thong Nagel MD - 07/04/2023 XR CHEST PORTABLE [...] the above interpretation andagree with the findings. [id number] Lilli Garrison MD IMG DIAGNOSTIC IMAGI NG ORDERABLES [...] above interpretation and agree with the findings. [id number] Narrative 07/04/2023 9:10 EDT XR CHEST PORTABLE [...] in the right shoulder. Resulting Agency Comment [id number] Procedure Note Thong Nagel MD - 07/04/2023 XR CHEST PORTABLE [...] the above interpretation andagree with the findings. [id number] Tiara Keller MD IMG DIAGNOSTIC IM AGING ORDERABLES * (ABNORMAL) SODIUM (07/03/2023 23:56 EDT) Sodium 129(L) 136 - 145 mmol/L 07/04/2023 0:24 EDT [facility] Blood VENOUS BLOOD / Unknown Venipuncture / Unknown 07/03/2023 23:56 EDT 07/04/2023 0:00 EDT Tai Azar MD CHEMISTRY & BLOOD G ORDERABLES [facility] [address] [place] [address] * (ABNORMAL) POCT GLUCOSE, INTERFACED (07/03/2023 21:14 EDT) Glucose, POC 173(H) 70 - 100 mg/dL 07/03/2023 21:15 EDT [facility] HN LAB POC COMMENT (GLUCOSE) Test Performed by Nursing Services 07/03/2023 21:15 EDT [facility] Blood CAPILLARY BLOOD / Unknown 07/03/2023 21:14 EDT 07/03/2023 21:15 EDT Tai Azar MD POINT OF CARE TEST ORDERABLES Performing Organization Address City/[facility]/ZIP Co de Phone Number [facility] [address] [place] [address] * (ABNORMAL) SODIUM (07/03/2023 17:44 EDT) Sodium 130(L) 136 - 145 mmol/L 07/03/2023 18:25 EDT [facility] Blood VENOUS BLOOD / Unknown Venipuncture / Unknown 07/03/2023 17:44 EDT 07/03/2023 17:52 EDT Tai Azar MD CHEMISTRY & BLOOD G ORDERABLES Performing Organization Address [facility] Co de Phone Number [facility] [address] [place] [address] * (ABNORMAL) POCT GLUCOSE, INTERFACED (07/03/2023 17:18 EDT) Glucose, POC 194(H) 70 - 100 mg/dL 07/03/2023 17:23 EDT [facility] HN LAB POC COMMENT (GLUCOSE) Test Performed by Nursing Services 07/03/2023 17:23 EDT [facility] Blood CAPILLARY BLOOD / Unknown 07/03/2023 17:18 EDT 07/03/2023 17:23 EDT Tai Azar MD POINT OF CARE TEST ORDERABLES Performing Organization Address City/[facility]/ZIP Co de Phone Number [facility] [address] [place] [address] * CT CHEST W CONTRAST (07/03/2023 16:47 [...] sternal fracture. Mild coronary artery atherosclerotic calcification. [id number] Narrative 07/03/2023 16:[address] CHEST W [...] body of the sternum. Resulting Agency Comment [id number] Procedure Note Redd Washington MD - 07/03/2023 [...] sternal fracture. Mild coronary artery atherosclerotic calcification. [id number] Leesa Buenrostro MD IMJane CT ORDERABLES * (ABNORMAL) SODIUM (07/03/2023 15:35 EDT) Sodium 130(L) 136 - 145 mmol/L 07/03/2023 16:36 EDT [facility] Blood VENOUS BLOOD / Unknown Venipuncture / Unknown 07/03/2023 15:35 EDT 07/03/2023 15:42 EDT Tai Azar MD CHEMISTRY & BLOOD G ORDERABLES Performing Organization Address [facility] Co de Phone Number [facility] [address], [place] [phone] * (ABNORMAL) POCT GLUCOSE, INTERFACED (07/03/2023 11:47 EDT) Glucose, POC 265(H) 70 - 100 mg/dL 07/03/2023 11:49 EDT [facility] HN LAB POC COMMENT (GLUCOSE) Test Performed by Nursing Services 07/03/2023 11:49 EDT [facility] Blood CAPILLARY BLOOD / Unknown 07/03/2023 11:47 EDT 07/03/2023 11:48 EDT Tai Azar MD POINT OF CARE TEST ORDERABLES Performing Organization Address [facility] de Phone Number [facility] [address], [place] [address] * XR CHEST PORTABLE 1 VIEW (07/03/2023 8:44 EDT) Anatomical Region Laterality Modality Computed Radiogr aphy 07/03/2023 10:0 0 EDT Impressions 07/03/2023 10:00 EDT Increased left-sided pleural effusion. Progressive atelectasis of the left lung. No change in diffuse interstitial abnormalities in the right lung likely reflecting edema. I have personally reviewed the images and the above interpretation and agree with the findings. [id number] Narrative 07/03/2023 10:00 EDT XR CHEST PORTABLE [...] Right shoulder calcific tendinosis. Resulting Agency Comment [id number] Procedure Note Redd Washington MD - 07/03/2023 [...] the above interpretation andagree with the findings. [id number] Leesa Porter [facility] DIAGNOSTIC IMAGI NG ORDERABLES * (ABNORMAL) POCT GLUCOSE, INTERFACED (07/03/2023 8:19 EDT) Glucose, POC 169(H) 70 - 100 mg/dL 07/03/2023 8:21 EDT [facility] HN LAB POC COMMENT (GLUCOSE) Test Performed by Nursing Services 07/03/2023 8:21 EDT [facility] Blood CAPILLARY BLOOD / Unknown 07/03/2023 8:19 EDT 07/03/2023 8:21 EDT Hira Franklin MD POINT OF CARE TEST O RDERABLES Performing Organization Address [facility] Co de Phone Number [facility] [address] [place] [address] * (ABNORMAL) POCT GLUCOSE, INTERFACED (07/03/2023 6:59 EDT) Glucose, POC 163(H) 70 - 100 mg/dL 07/03/2023 7:00 EDT [facility] HN LAB POC COMMENT (GLUCOSE) Test Performed by Nursing Services 07/03/2023 7:00 EDT [facility] Blood CAPILLARY BLOOD / Unknown 07/03/2023 6:59 EDT 07/03/2023 7:00 EDT Tai Azar MD POINT OF CARE TEST ORDERABLES Performing Organization Address [facility] de Phone Number [facility] [address] [place] [address] * (ABNORMAL) DIFFERENTIAL, AUTOMATED MANUAL (07/03/2023 6:29 EDT) % Neutrophils 72.8 Not Indicated % 07/03/2023 7:58 EDT [facility] % Lymphocytes 8.8 Not Indicated % 07/03/2023 7:58 EDT [facility] % Monocytes 9.6 Not Indicated % 07/03/2023 7:58 EDT [facility] % Eosinophils 1.7 Not Indicated % 07/03/2023 7:58 EDT [facility] % Basophils 1.8 Not Indicated % 07/03/2023 7:58 [facility] % Myelocytes 5.3 Not Indicated % 07/03/2023 7:58 [facility] Absolute Neutrophils 6.67 2.20 - 8.85 K/cmm 07/03/2023 7:58 [facility] Absolute Lymphocytes 0.81(L) 1.09 - 3.30 K/cmm 07/03/2023 7:58 [facility] Absolute Monocytes 0.88(H) 0.10 - 0.80 K/cmm 07/03/2023 7:58 [facility] Absolute Eosinophils 0.16 0.03 - 0.61 K/cm 07/03/2023 7:58 [facility] ABS Basophils 0.16(H) 0.01 - 0.11 K/cmm 07/03/2023 7:58 [facility] Absolute Myelocytes 0.49(H) <=0.00 K/cmm 07/03/2023 7:58 [facility] Type of Differential: Manual 07/03/2023 7:58 [facility] Blood VENOUS BLOOD / Unknown Venipuncture / Unknown 07/03/2023 6:29 EDT 07/03/2023 6:40 EDT Ayden Jennings HEMATOLOGY & PF4 ORD ERABLES [facility] [address] [place] [address] * LAB CBC SMEAR REVIEW (07/03/2023 6:29 EDT) Differential Comment Slide was examined by a technologist to verify the WBC and/or platelet count. 07/03/2023 7:39 EDT [facility] Blood VENOUS BLOOD / Unknown Venipuncture / Unknown 07/03/2023 6:29 EDT 07/03/2023 6:40 EDT Ayden Jennings HEMATOLOGY & PF4 ORD ERABLES [facility] [address] [place] [address] * TROPONIN I (07/03/2023 6:29 EDT) [facility] Troponin I (ng/mL) <0.034 <0.034 ng/mL 07/03/2023 7:12 EDT [facility] Blood VENOUS BLOOD / Unknown Venipuncture / Unknown 07/03/2023 6:29 EDT 07/03/2023 6:41 EDT Narrative [facility] - 07/03/2023 7:12 EDT The results of this assay can be falsely lowered due to the consumption of Biotin. Zahira Veras MD CHEMISTRY & BLOOD G ORDERABLES Performing Organization Address [facility] de Phone Number [facility] [address] [place] [address] * (ABNORMAL) BASIC METABOLIC PANEL (BMP) (07/03/2023 6:29 EDT) [facility] Sodium 130(L) 136 - 145 mmol/L 07/03/2023 6:58 [facility] Potassium 3.3(L) 3.5 - 5.0 mmol/L 07/03/2023 6:58 [facility] Chloride 95(L) 96 - 110 mmol/L 07/03/2023 6:58 [facility] CO2 Total 27 22 - 32 mmol/L 07/03/2023 6:58 [facility] Anion Gap 8 5 - 14 mmol/L 07/03/2023 6:58 [facility] Glucose 173(H) 70 - 99 mg/dl 07/03/2023 6:58 [facility] Calcium 8.0(L) 8.5 - 10.5 mg/dL 07/03/2023 6:58 [facility] BUN 12 10 - 26 mg/dL 07/03/2023 6:58 [facility] Creatinine 0.47(L) 0.52 - 1.04 mg/dL 07/03/2023 6:58 EDT [facility] eGFR 114 >60 mL/min/1.73 m2 07/03/2023 6:58 EDT [facility] Blood VENOUS BLOOD / Unknown Venipuncture / Unknown 07/03/2023 6:29 EDT 07/03/2023 6:41 EDT Reza Brito MD CHEMISTRY & BLOOD GA S ORDERABLES [facility] [address] [place] [address] * MAGNESIUM (07/03/2023 6:29 EDT) Magnesium 1.9 1.7 - 2.8 mg/dL 07/03/2023 6:58 EDT [facility] Blood VENOUS BLOOD / Unknown Venipuncture / Unknown 07/03/2023 6:29 EDT 07/03/2023 6:41 EDT Reza Brito MD CHEMISTRY & BLOOD GA S ORDERABLES Performing Organization Address City/[facility]/ZIP Co de Phone Number [facility] [address] [place] [address] * PHOSPHORUS (07/03/2023 6:29 EDT) Phosphorus 4.0 2.5 - 4.5 mg/dL 07/03/2023 6:58 EDT [facility] Blood VENOUS BLOOD / Unknown Venipuncture / Unknown 07/03/2023 6:29 EDT 07/03/2023 6:41 EDT Reza Brito MD CHEMISTRY & BLOOD GA S ORDERABLES Performing Organization Address City/[facility]/ZIP Co de Phone Number [facility] [address] [place] [address] * (ABNORMAL) COMPLETE BLOOD COUNT AND DIFFERENTIAL (07/03/2023 6:29 EDT) WBC 9.16 4.00 - 12.40 K/cmm 07/03/2023 7:39 [facility] RBC 2.40(L) 3.86 - 5.04 M/cmm 07/03/2023 7:39 [facility] Hemoglobin 7.1(L) 11.6 - 15.2 g/dL 07/03/2023 7:39 [facility] HCT 21.2(L) 34.9 - 44.4 % 07/03/2023 7:39 [facility] MCV 88 81 - 98 fL 07/03/2023 7:39 [facility] MCH 29.6 26.7 - 33.3 pg 07/03/2023 7:39 [facility] MCHC 33.5 32.1 - 35.9 g/dL 07/03/2023 7:39 [facility] RDW-CV 14.8(H) <14.7 % 07/03/2023 7:39 [facility] RDW-SD 48.0 <50.4 fl 07/03/2023 7:39 [facility] PLT 548(H) 141 - 377 K/cmm 07/03/2023 7:39 [facility] MPV 07/03/2023 7:39 [facility] Comment:Not Available Type of Differential: 07/03/2023 7:39 [facility] Comment:This is an updated r esult. Previous result was Auto on 07/03/2023 at 0707 EDT Blood VENOUS BLOOD / Unknown Venipuncture / Unknown 07/03/2023 6:29 EDT 07/03/2023 6:40 EDT Ayden Jennings PACKAGES & DNA PROBE ORDERABLES [facility] [address] [place] [address] * EKG 12-LEAD (07/03/2023 3:57 EDT) 07/03/2023 3:57 EDT Narrative [facility] EKG - 07/04/2023 13:31 EDT ? The ? Test Date: ?2023-07-03 Pat Name: ? DELLA BROWNING ? Department: ?? [facility] ? Room: ? B683 Gender: ? Female ? 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 [id number] : ?1970 ? Requested By: RITO RODRIGES Order Number: [id number] ? Alicia MD: ?? OTTONIEL STAHL MD ? Measurements Intervals ?[place] ? Rate: ? 89 ? P: ?35 IA: ? 157 ?QRS: ?54 QRSD: ? 83 [...] Electronically Signed On 07-04-2023 13:31:10 EDT by OTTONIEL STAHL MD. Procedure Note Ottoniel Stahl MD PhD - 07/04/2023 The Test Date: 2023-07-03 Pat Name: DELLA BROWNING Department: [place] [address] Room: [facility] Gender: Female President Practicing Urologist: [id number] : 1970 Requested By: RITO RODRIGES Order Number: [id number] Alicia MD: OTTONIEL IGLESIAS Measurements Intervals [place] Rate: 89 P: 35 IA: 157 QRS: 54 QRSD: 83 T: 101 QT: 374 QTc: 456 Interpretive Statements SINUS RHYTHM WITH OCCASIONAL ECTOPIC PREMATURE COMPLEXES POSSIBLE LEFT ATRIAL ENLARGEMENT Automated Interpretation. Provider Interpretation to follow. Compared to ECG 06/28/2023 02:12:29 No significant changes I reviewed the tracing and have either agreed or edited the findings inthis report. Electronically Signed On 07-04-2023 13:31:10 EDT by NELSON MCCLENDON. Zahira Veras MD CARDIAC ECG ORDERAB LES Performing Organization Address City/[facility]/ZIP Co de Phone Number [facility] EKG * (ABNORMAL) POCT GLUCOSE, INTERFACED (07/03/2023 2:44 EDT) Glucose, POC 132(H) 70 - 100 mg/dL 07/03/2023 2:46 EDT [facility] HN LAB POC COMMENT (GLUCOSE) Test Performed by Nursing Services 07/03/2023 2:46 EDT [facility] Blood CAPILLARY BLOOD / Unknown 07/03/2023 2:44 EDT 07/03/2023 2:46 EDT Hira Franklin MD POINT OF CARE TEST O RDERABLES Performing Organization Address [facility] Co de Phone Number [facility] [address] [place] [address] * (ABNORMAL) SODIUM (07/02/2023 23:40 EDT) [facility] Signature Sodium 128(L) 136 - 145 mmol/L 07/03/2023 0:50 EDT [facility] Blood VENOUS BLOOD / Unknown Venipuncture / Unknown 07/02/2023 23:40 EDT 07/03/2023 0:27 EDT Tai Azar MD CHEMISTRY & BLOOD G ORDERABLES Performing Organization Address City/[facility]/ZIP Co de Phone Number [facility] [address] [place] [address] * (ABNORMAL) POCT GLUCOSE, INTERFACED (07/02/2023 20:24 EDT) Glucose, POC 332(H) 70 - 100 mg/dL 07/02/2023 20:25 EDT [facility] HN LAB POC COMMENT (GLUCOSE) Test Performed by Nursing Services 07/02/2023 20:25 EDT [facility] Blood CAPILLARY BLOOD / Unknown 07/02/2023 20:24 EDT 07/02/2023 20:25 EDT Tai Azar MD POINT OF CARE TEST ORDERABLES Performing Organization Address City/[facility] Co de Phone Number [facility] [address], [place] [id number] * (ABNORMAL) SODIUM (07/02/2023 17:47 EDT) Sodium 127(L) 136 - 145 mmol/L 07/02/2023 18:17 EDT [facility] Blood VENOUS BLOOD / Unknown Venipuncture / Unknown 07/02/2023 17:47 EDT 07/02/2023 17:52 EDT Tai Azar MD CHEMISTRY & BLOOD G ORDERABLES Performing Organization Address [facility] Co de Phone Number [facility] [address] [place] [address] * (ABNORMAL) POCT GLUCOSE, INTERFACED (07/02/2023 17:41 EDT) Glucose, POC 207(H) 70 - 100 mg/dL 07/02/2023 17:43 EDT [facility] HN LAB POC COMMENT (GLUCOSE) Test Performed by Nursing Services 07/02/2023 17:43 EDT [facility] Blood CAPILLARY BLOOD / Unknown 07/02/2023 17:41 EDT 07/02/2023 17:42 EDT Tai Azar MD POINT OF CARE TEST ORDERABLES Performing Organization Address City/[facility]/ZIP Co de Phone Number [facility] [address], [place] [id number] * (ABNORMAL) POCT GLUCOSE, INTERFACED (07/02/2023 13:12 EDT) Glucose, POC 180(H) 70 - 100 mg/dL 07/02/2023 13:13 EDT [facility] HN LAB POC COMMENT (GLUCOSE) Test Performed by Nursing Services 07/02/2023 13:13 EDT [facility] Blood CAPILLARY BLOOD / Unknown 07/02/2023 13:12 EDT 07/02/2023 13:13 EDT Tai Azar MD POINT OF CARE TEST ORDERABLES Performing Organization Address [facility] Co de Phone Number [facility] [address] [place] [address] * (ABNORMAL) SODIUM (07/02/2023 12:54 EDT) Sodium 129(L) 136 - 145 mmol/L 07/02/2023 13:44 EDT [facility] Blood VENOUS BLOOD / Unknown Venipuncture / Unknown 07/02/2023 12:54 EDT 07/02/2023 13:13 EDT Tai Azar MD CHEMISTRY & BLOOD G ORDERABLES Performing Organization Address [facility] de Phone Number [facility] [address] [place] [address] * ECG REPORT - SCANNED (07/02/2023 10:05 EDT) 07/02/2023 10:0 5 EDT Scan 2 Nursing Coordinator PROCEDURE/MINOR VI GICAL ORDERABLES * (ABNORMAL) POCT GLUCOSE, INTERFACED (07/02/2023 7:54 EDT) Glucose, POC 157(H) 70 - 100 mg/dL 07/02/2023 7:55 EDT [facility] HN LAB POC COMMENT (GLUCOSE) Test Performed by Nursing Services 07/02/2023 7:55 EDT [facility] Blood CAPILLARY BLOOD / Unknown 07/02/2023 7:54 EDT 07/02/2023 7:55 EDT Tai Azar MD POINT OF CARE TEST ORDERABLES [facility] [address], [place] [address] * (ABNORMAL) DIFFERENTIAL, AUTOMATED MANUAL (07/02/2023 7:42 EDT) % Neutrophils 77.2 Not Indicated % 07/02/2023 9:08 [facility] % Lymphocytes 8.8 Not Indicated % 07/02/2023 9:08 [facility] % Monocytes 3.5 Not Indicated % 07/02/2023 9:08 [facility] % Eosinophils 0.9 Not Indicated % 07/02/2023 9:08 [facility] % Metamyelocytes 3.5 Not Indicated % 07/02/2023 9:08 [facility] % Myelocytes 6.1 Not Indicated % 07/02/2023 9:08 [facility] Absolute Neutrophils 7.72 2.20 - 8.85 K/cmm 07/02/2023 9:08 [facility] Absolute Lymphocytes 0.88(L) 1.09 - 3.30 K/cmm 07/02/2023 9:08 [facility] Absolute Monocytes 0.35 0.10 - 0.80 K/cmm 07/02/2023 9:08 [facility] Absolute Eosinophils 0.09 0.03 - 0.61 K/cmm 07/02/2023 9:08 [facility] Absolute Metamyelocytes 0.35(H) <=0.00 K/cmm 07/02/2023 9:08 [facility] Absolute Myelocytes 0.61(H) <=0.00 K/cmm 07/02/2023 9:08 [facility] Type of Differential: Manual 07/02/2023 9:08 [facility] Blood VENOUS BLOOD / Unknown Venipuncture / Unknown 07/02/2023 7:42 EDT 07/02/2023 7:56 EDT Ayden Jennings HEMATOLOGY & PF4 ORD ERABLES Performing Organization Address [facility]/ZIP Co de Phone Number [facility] [address], [place] [address] * (ABNORMAL) BASIC METABOLIC PANEL (BMP) (07/02/2023 7:42 EDT) Sodium 128(L) 136 - 145 mmol/L 07/02/2023 8:30 EDT [facility] Potassium 4.0 3.5 - 5.0 mmol/L 07/02/2023 8:30 EDT [facility] Chloride 93(L) 96 - 110 mmol/L 07/02/2023 8:30 EDT [facility] CO2 Total 27 22 - 32 mmol/L 07/02/2023 8:30 EDT [facility] Anion Gap 8 5 - 14 mmol/L 07/02/2023 8:30 EDT [facility] Glucose 156(H) 70 - 99 mg/dl 07/02/2023 8:30 EDT [facility] Calcium 8.3(L) 8.5 - 10.5 mg/dL 07/02/2023 8:30 EDT [facility] BUN 12 10 - 26 mg/dL 07/02/2023 8:30 EDT [facility] Creatinine 0.47(L) 0.52 - 1.04 mg/dL 07/02/2023 8:30 EDT [facility] eGFR 114 >60 mL/min/1.73 m2 07/02/2023 8:30 EDT [facility] Blood VENOUS BLOOD / Unknown Venipuncture / Unknown 07/02/2023 7:42 EDT 07/02/2023 7:57 EDT Reza Brito MD CHEMISTRY & BLOOD GA S ORDERABLES Performing Organization Address City/[facility]/ZIP Co de Phone Number [facility] [address] [place] [address] * MAGNESIUM (07/02/2023 7:42 EDT) [facility] Magnesium 1.8 1.7 - 2.8 mg/dL 07/02/2023 8:30 EDT [facility] Blood VENOUS BLOOD / Unknown Venipuncture / Unknown 07/02/2023 7:42 EDT 07/02/2023 7:57 EDT Reza Brito MD CHEMISTRY & BLOOD GA S ORDERABLES [facility] [address] [place] [address] * PHOSPHORUS (07/02/2023 7:42 EDT) [facility] Phosphorus 4.4 2.5 - 4.5 mg/dL 07/02/2023 8:30 EDT [facility] Blood VENOUS BLOOD / Unknown Venipuncture / Unknown 07/02/2023 7:42 EDT 07/02/2023 7:57 EDT Reza Brito MD CHEMISTRY & BLOOD GA S ORDERABLES [facility] [address], [place] [address] * (ABNORMAL) COMPLETE BLOOD COUNT AND DIFFERENTIAL (07/02/2023 7:42 EDT) [facility] WBC 10.00 4.00 - 12.40 K/cmm 07/02/2023 8:17 EDT [facility] RBC 2.57(L) 3.86 - 5.04 M/cmm 07/02/2023 8:17 EDT [facility] Hemoglobin 7.4(L) 11.6 - 15.2 g/dL 07/02/2023 8:17 EDT [facility] HCT 21.5(L) 34.9 - 44.4 % 07/02/2023 8:17 EDT [facility] MCV 84 81 - 98 fL 07/02/2023 8:17 EDT [facility] MCH 28.8 26.7 - 33.3 pg 07/02/2023 8:17 T [facility] MCHC 34.4 32.1 - 35.9 g/dL 07/02/2023 8:17 [facility] RDW-CV 14.7(H) <14.7 % 07/02/2023 8:17 T [facility] RDW-SD 44.9 <50.4 fl 07/02/2023 8:17 [facility] PLT 568(H) 141 - 377 K/cmm 07/02/2023 8:17 [facility] MPV 9.5 9.5 - 12.7 fL 07/02/2023 8:17 T [facility] Blood VENOUS BLOOD / Unknown Venipuncture / Unknown 07/02/2023 7:42 EDT 07/02/2023 7:56 EDT Ayden Jennings PACKAGES & DNA PROBE ORDERABLES Performing Organization Address City/[facility]/ZIP Co de Phone Number [facility] [address] [place] [address] * (ABNORMAL) SODIUM (07/01/2023 23:44 EDT) Sodium 127(L) 136 - 145 mmol/L 07/02/2023 0:05 EDT [facility] Blood VENOUS BLOOD / Unknown Venipuncture / Unknown 07/01/2023 23:44 EDT 07/01/2023 23:48 EDT Tai Azar MD CHEMISTRY & BLOOD G ORDERABLES [facility] [address] [place] [address] * (ABNORMAL) POCT GLUCOSE, INTERFACED (07/01/2023 20:01 EDT) Glucose, POC 246(H) 70 - 100 mg/dL 07/01/2023 20:03 EDT [facility] HN LAB POC COMMENT (GLUCOSE) Test Performed by Nursing Services 07/01/2023 20:03 EDT [facility] Blood CAPILLARY BLOOD / Unknown 07/01/2023 20:01 EDT 07/01/2023 20:03 EDT Tai Azar MD POINT OF CARE TEST ORDERABLES Performing Organization Address City/[facility]/ZIP Co de Phone Number [facility] [address] [place] [address] * (ABNORMAL) SODIUM (07/01/2023 18:10 EDT) Sodium 128(L) 136 - 145 mmol/L 07/01/2023 19:07 EDT [facility] Blood VENOUS BLOOD / Unknown Venipuncture / Unknown 07/01/2023 18:10 EDT 07/01/2023 18:26 EDT Tai Azar MD CHEMISTRY & BLOOD G ORDERABLES Performing Organization Address City/[facility]/ZIP Co de Phone Number [facility] [address] [place] [address] * (ABNORMAL) POCT GLUCOSE, INTERFACED (07/01/2023 17:33 EDT) Glucose, POC 163(H) 70 - 100 mg/dL 07/01/2023 17:34 EDT [facility] HN LAB POC COMMENT (GLUCOSE) Test Performed by Nursing Services 07/01/2023 17:34 EDT [facility] Blood CAPILLARY BLOOD / Unknown 07/01/2023 17:33 EDT 07/01/2023 17:34 EDT Tai Azar MD POINT OF CARE TEST ORDERABLES [facility] [address] [place] [address] * (ABNORMAL) SODIUM (07/01/2023 15:10 EDT) Pathologist [facility] Sodium 130(L) 136 - 145 mmol/L 07/01/2023 15:34 EDT [facility] Blood VENOUS BLOOD / Unknown Venipuncture / Unknown 07/01/2023 15:10 EDT 07/01/2023 15:14 EDT Tai Azar MD CHEMISTRY & BLOOD G ORDERABLES Performing Organization Address [facility] Co de Phone Number [facility] [address] [place] [address] * ECG REPORT - SCANNED (07/01/2023 13:46 EDT) 07/01/2023 13:4 6 EDT Scan 2 Nursing Coordinator PROCEDURE/MINOR VI GICAL ORDERABLES * (ABNORMAL) POCT GLUCOSE, INTERFACED (07/01/2023 12:56 EDT) Glucose, POC 159(H) 70 - 100 mg/dL 07/01/2023 12:57 EDT [facility] HN LAB POC COMMENT (GLUCOSE) Test Performed by Nursing Services 07/01/2023 12:57 EDT [facility] Blood CAPILLARY BLOOD / Unknown 07/01/2023 12:56 EDT 07/01/2023 12:57 EDT Tai Azar MD POINT OF CARE TEST ORDERABLES Performing Organization Address [facility] Co de Phone Number [facility] [address] [place] [address] * XR CHEST 2 VIEWS (07/01/2023 10:22 [...] pna; Comparison: Chest x-ray 06/30/2023, 06/26/2023, CT chest04/2023. Technique: Frontal and lateral views of the [...] MD IMG DIAGNOSTIC IMAG ING ORDERABLES * (ABNORMAL) POCT GLUCOSE, INTERFACED (07/01/2023 8:33 EDT) Glucose, POC 163(H) 70 - 100 mg/dL 07/01/2023 8:35 EDT [facility] HN LAB POC COMMENT (GLUCOSE) Test Performed by Nursing Services 07/01/2023 8:35 EDT [facility] Blood CAPILLARY BLOOD / Unknown 07/01/2023 8:33 EDT 07/01/2023 8:35 EDT Tai Azar MD POINT OF CARE TEST ORDERABLES [facility] [address] [place] [id number] * ECG REPORT - SCANNED (07/01/2023 6:53 EDT) 07/01/2023 6:53 EDT Scan 2 Nursing Coordinator PROCEDURE/MINOR VI GICAL ORDERABLES * (ABNORMAL) DIFFERENTIAL, AUTOMATED MANUAL (07/01/2023 2:29 EDT) % Neutrophils 70.4 Not Indicated % 07/01/2023 3:00 EDT [facility] % Banded Neutrophils 0.9 Not Indicated % 07/01/2023 3:00 EDT [facility] % Lymphocytes 15.6 Not Indicated % 07/01/2023 3:00 EDT [facility] % Monocytes 7.8 Not Indicated % 07/01/2023 3:00 T [facility] % Eosinophils 0.9 Not Indicated % 07/01/2023 3:00 EDT [facility] % Basophils 0.9 Not Indicated % 07/01/2023 3:00 EDT [facility] % Metamyelocytes 0.9 Not Indicated % 07/01/2023 3:00 EDT [facility] % Myelocytes 2.6 Not Indicated % 07/01/2023 3:00 [facility] Toxic Granulation Present 024 3:00 T [facility] Vacuolated Neutrophils Present 07/01/2023 3:00 EDT [facility] Large Platelets Present K/[facility] 3:00 EDT [facility] Absolute Neutrophils 7.90 2.20 - 8.85 K/[facility] 07/01/2023 3:00 EDT [facility] Absolute Bands 0.10 K/[facility] 07/01/2023 3:00 [facility] Absolute Lymphocytes 1.75 1.09 - 3.30 K/[facility] 07/01/2023 3:00 [facility] Absolute Monocytes 0.88(H) 0.10 - 0.80 K/cm 07/01/2023 3:00 EDT [facility] Absolute Eosinophils 0.10 0.03 - 0.61 K/[facility] 07/01/2023 3:00 EDT [facility] ABS Basophils 0.10 0.01 - 0.11 K/cm 07/01/2023 3:00 [facility] Absolute Metamyelocytes 0.10(H) <=0.00 K/cm 07/01/2023 3:00 [facility] Absolute Myelocytes 0.29(H) <=0.00 K/cm 07/01/2023 3:00 T [facility] Type of Differential: Manual 07/01/2023 3:00 [facility] Blood VENOUS BLOOD / Unknown Venipuncture / Unknown 07/01/2023 2:29 EDT 07/01/2023 2:32 EDT Ayden Jennings HEMATOLOGY & PF4 ORD ERABLES [facility] [address] [place] [address] * (ABNORMAL) BASIC METABOLIC PANEL (BMP) (07/01/2023 2:29 EDT) Sodium 130(L) 136 - 145 mmol/L 07/01/2023 3:03 T [facility] Potassium 4.0 3.5 - 5.0 mmol/L 07/01/2023 3:03 [facility] Chloride 97 96 - 110 mmol/L 07/01/2023 3:03 T [facility] [facility] CO2 Total 24 22 - 32 mmol/L 07/01/2023 3:03 [facility] Anion Gap 9 5 - 14 mmol/L 07/01/2023 3:03 [facility] Glucose 191(H) 70 - 99 mg/dl 07/01/2023 3:03 [facility] Calcium 8.4(L) 8.5 - 10.5 mg/dL 07/01/2023 3:03 [facility] BUN 13 10 - 26 mg/dL 07/01/2023 3:03 [facility] Creatinine 0.66 0.52 - 1.04 mg/dL 07/01/2023 3:03 [facility] eGFR 105 >60 mL/min/1.73 m2 07/01/2023 3:03 [facility] Blood VENOUS BLOOD / Unknown Venipuncture / Unknown 07/01/2023 2:29 EDT 07/01/2023 2:32 EDT Reza Brito MD CHEMISTRY & BLOOD GA S ORDERABLES [facility] [address] [place] [address] * MAGNESIUM (07/01/2023 2:29 EDT) Magnesium 1.7 1.7 - 2.8 mg/dL 07/01/2023 3:03 EDT [facility] Blood VENOUS BLOOD / Unknown Venipuncture / Unknown 07/01/2023 2:29 EDT 07/01/2023 2:32 EDT Reza Brito MD CHEMISTRY & BLOOD GA S ORDERABLES Performing Organization Address City/[facility]/ZIP Co de Phone Number [facility] [address], [place] [phone] * PHOSPHORUS (07/01/2023 2:29 EDT) Phosphorus 4.5 2.5 - 4.5 mg/dL 07/01/2023 3:03 EDT [facility] Blood VENOUS BLOOD / Unknown Venipuncture / Unknown 07/01/2023 2:29 EDT 07/01/2023 2:32 EDT Reza Brito MD CHEMISTRY & BLOOD GA S ORDERABLES Performing Organization Address [facility]/ZIP Co de Phone Number [facility] [address], [place] [phone] * (ABNORMAL) COMPLETE BLOOD COUNT AND DIFFERENTIAL (07/01/2023 2:29 EDT) WBC 11.22 4.00 - 12.40 K/cmm 07/01/2023 2:41 T [facility] RBC 2.50(L) 3.86 - 5.04 M/cmm 07/01/2023 2:41 [facility] Hemoglobin 7.4(L) 11.6 - 15.2 g/dL 07/01/2023 2:41 T [facility] HCT 21.7(L) 34.9 - 44.4 % 07/01/2023 2:41 [facility] MCV 87 81 - 98 fL 07/01/2023 2:41 T [facility] MCH 29.6 26.7 - 33.3 pg 07/01/2023 2:41 [facility] MCHC 34.1 32.1 - 35.9 g/dL 07/01/2023 2:41 T [facility] RDW-CV 14.7(H) <14.7 % 07/01/2023 2:41 EDT [facility] RDW-SD 47.2 <50.4 fl 07/01/2023 2:41 EDT [facility] PLT 565(H) 141 - 377 K/cmm 07/01/2023 2:41 EDT [facility] MPV 9.2(L) 9.5 - 12.7 fL 07/01/2023 2:41 EDT [facility] Blood VENOUS BLOOD / Unknown Venipuncture / Unknown 07/01/2023 2:29 EDT 07/01/2023 2:32 EDT Ayden Jennings PACKAGES & DNA PROBE ORDERABLES Performing Organization Address City/[facility]/ZIP Co de Phone Number [facility] [address] [place] [address] * (ABNORMAL) SODIUM (06/30/2023 23:47 EDT) Sodium 129(L) 136 - 145 mmol/L 07/01/2023 0:25 EDT [facility] Blood VENOUS BLOOD / Unknown Venipuncture / Unknown 06/30/2023 23:47 EDT 07/01/2023 0:02 EDT Tai Azar MD CHEMISTRY & BLOOD G ORDERABLES Performing Organization Address City/[facility]/ZIP Co de Phone Number [facility] [address] [place] [address] * (ABNORMAL) POCT GLUCOSE, INTERFACED (06/30/2023 20:59 EDT) Glucose, POC 201(H) 70 - 100 mg/dL 06/30/2023 21:00 EDT [facility] HN LAB POC COMMENT (GLUCOSE) Test Performed by Nursing Services 06/30/2023 21:00 EDT [facility] Blood CAPILLARY BLOOD / Unknown 06/30/2023 20:59 EDT 06/30/2023 21:00 EDT Tai Azar MD POINT OF CARE TEST ORDERABLES [facility] [address], [place] [id number] * (ABNORMAL) SODIUM (06/30/2023 17:51 EDT) Sodium 128(L) 136 - 145 mmol/L 06/30/2023 18:09 EDT [facility] Blood VENOUS BLOOD / Unknown Venipuncture / Unknown 06/30/2023 17:51 EDT 06/30/2023 18:05 EDT Tai Azar MD CHEMISTRY & BLOOD G ORDERABLES Performing Organization Address [facility]/ZIP Co de Phone Number [facility] [address] [place] [address] * (ABNORMAL) POCT GLUCOSE, INTERFACED (06/30/2023 16:57 EDT) Glucose, POC 164(H) 70 - 100 mg/dL 06/30/2023 16:58 EDT [facility] HN LAB POC COMMENT (GLUCOSE) Test Performed by Nursing Services 06/30/2023 16:58 EDT [facility] Blood CAPILLARY BLOOD / Unknown 06/30/2023 16:57 EDT 06/30/2023 16:58 EDT Tai Azar MD POINT OF CARE TEST ORDERABLES [facility] [address] [place] [address] * XR CHEST PORTABLE 1 VIEW (06/30/2023 13:33 EDT) Anatomical Region Laterality Modality Computed Radiogr aphy 06/30/2023 13:4 1 EDT Impressions 06/30/2023 13:41 EDT Left lower lobe opacification with left pleural effusion. The findings could reflect either effusion with passive atelectasis or left lower lobe pneumonia. [id number] Narrative 06/30/2023 13:41 EDT XR CHEST PORTABLE [...] findings: ??Normal. Bones: Normal. Resulting Agency Comment [id number] Procedure Note Redd Washington MD - 06/30/2023 [...] with passive atelectasis or left lower lobepneumonia. [id number] Moo Monique MD IMG DIAGNOSTIC IMAG ING ORDERABLES * (ABNORMAL) POCT GLUCOSE, INTERFACED (06/30/2023 12:55 EDT) Glucose, POC 215(H) 70 - 100 mg/dL 06/30/2023 12:56 EDT [facility] HN LAB POC COMMENT (GLUCOSE) Test Performed by Nursing Services 06/30/2023 12:56 EDT [facility] Blood CAPILLARY BLOOD / Unknown 06/30/2023 12:55 EDT 06/30/2023 12:56 EDT Hira Franklin MD POINT OF CARE TEST O RDERABLES [facility] [address], [place] [id number] * (ABNORMAL) SODIUM (06/30/2023 12:12 EDT) Sodium 129(L) 136 - 145 mmol/L 06/30/2023 12:51 EDT [facility] Blood VENOUS BLOOD / Unknown Venipuncture / Unknown 06/30/2023 12:12 EDT 06/30/2023 12:19 EDT Tai Azar MD CHEMISTRY & BLOOD G ORDERABLES Performing Organization Address [facility] Co de Phone Number [facility] [address] [place] [address] * (ABNORMAL) POCT GLUCOSE, INTERFACED (06/30/2023 11:48 EDT) Glucose, POC 170(H) 70 - 100 mg/dL 06/30/2023 11:49 EDT [facility] HN LAB POC COMMENT (GLUCOSE) Test Performed by Nursing Services 06/30/2023 11:49 EDT [facility] Blood CAPILLARY BLOOD / Unknown 06/30/2023 11:48 EDT 06/30/2023 11:49 EDT Tai Azar MD POINT OF CARE TEST ORDERABLES Performing Organization Address City/[facility]/ZIP Co de Phone Number [facility] [address], [place] [phone] * (ABNORMAL) BASIC METABOLIC PANEL (BMP) (06/30/2023 8:04 EDT) Sodium 130(L) 136 - 145 mmol/L 06/30/2023 8:53 [facility] Potassium 4.1 3.5 - 5.0 mmol/L 06/30/2023 8:53 [facility] Chloride 99 96 - 110 mmol/L 06/30/2023 8:53 [facility] CO2 Total 22 22 - 32 mmol/L 06/30/2023 8:53 [facility] Anion Gap 9 5 - 14 mmol/L 06/30/2023 8:53 [facility] Glucose 125(H) 70 - 99 mg/dl 06/30/2023 8:53 [facility] Calcium 8.3(L) 8.5 - 10.5 mg/dL 06/30/2023 8:53 [facility] BUN 9(L) 10 - 26 mg/dL 06/30/2023 8:53 [facility] Creatinine 0.41(L) 0.52 - 1.04 mg/dL 06/30/2023 8:53 [facility] eGFR 118 >60 mL/min/1.73 m2 06/30/2023 8:53 [facility] Blood VENOUS BLOOD / Unknown Venipuncture / Unknown 06/30/2023 8:04 EDT 06/30/2023 8:34 EDT Reza Brito MD CHEMISTRY & BLOOD GA S ORDERABLES [facility] [address] [place] [address] * MAGNESIUM (06/30/2023 8:04 EDT) Magnesium 1.9 1.7 - 2.8 mg/dL 06/30/2023 8:53 EDT [facility] Blood VENOUS BLOOD / Unknown Venipuncture / Unknown 06/30/2023 8:04 EDT 06/30/2023 8:34 EDT Reza Brito MD CHEMISTRY & BLOOD GA S ORDERABLES [facility] [address] [place] [address] * PHOSPHORUS (06/30/2023 8:04 EDT) Pathologist [facility] Phosphorus 4.0 2.5 - 4.5 mg/dL 06/30/2023 8:53 [facility] Blood VENOUS BLOOD / Unknown Venipuncture / Unknown 06/30/2023 8:04 EDT 06/30/2023 8:34 EDT Reza Brito MD CHEMISTRY & BLOOD GA S ORDERABLES [facility] [address], [place] [phone] * (ABNORMAL) COMPLETE BLOOD COUNT AND DIFFERENTIAL (06/30/2023 8:04 EDT) [facility] WBC 9.18 4.00 - 12.40 K/cmm 06/30/2023 8:52 [facility] RBC 2.41(L) 3.86 - 5.04 M/cmm 06/30/2023 8:52 [facility] Hemoglobin 7.0(L) 11.6 - 15.2 g/dL 06/30/2023 8:52 [facility] HCT 20.7(LL) 34.9 - 44.4 % 06/30/2023 8:52 [facility] MCV 86 81 - 98 fL 06/30/2023 8:52 [facility] MCH 29.0 26.7 - 33.3 pg 06/30/2023 8:52 [facility] MCHC 33.8 32.1 - 35.9 g/dL 06/30/2023 8:52 [facility] RDW-CV 14.7(H) <14.7 % 06/30/2023 8:52 [facility] RDW-SD 46.2 <50.4 fl 06/30/2023 8:52 [facility] PLT 529(H) 141 - 377 K/cmm 06/30/2023 8:52 [facility] MPV 9.5 9.5 - 12.7 fL 06/30/2023 8:52 [facility] % Neutrophils 72.1 % 06/30/2023 8:52 [facility] % Lymphocytes 11.0 % 06/30/2023 8:52 [facility] % Monocytes 10.1 % 06/30/2023 8:52 [facility] % Eosinophils 1.4 % 06/30/2023 8:52 [facility] % Basophils 0.4 % 06/30/2023 8:52 [facility] % Immature Grans 5.0 % 06/30/19 8:52 [facility] Absolute Neutrophils 6.61 2.20 - 8.85 K/cmm 06/30/2023 8:52 [facility] Absolute Lymphocytes 1.01(L) 1.09 - 3.30 K/cmm 06/30/2023 8:52 [facility] Absolute Monocytes 0.93(H) 0.10 - 0.80 K/cmm 06/30/2023 8:52 [facility] Absolute Eosinophils 0.13 0.03 - 0.61 K/cmm 06/30/2023 8:52 [facility] ABS Basophils 0.04 0.01 - 0.11 K/cmm 06/30/2023 8:52 [facility] Absolute Immature Grans 0.46(H) 0.00 - 0.06 K/cmm 06/30/2023 8:52 [facility] Type of Differential: Auto 06/30/2023 8:52 [facility] Blood VENOUS BLOOD / Unknown Venipuncture / Unknown 06/30/2023 8:04 EDT 06/30/2023 8:34 EDT Ayden Jennings PACKAGES & DNA PROBE ORDERABLES [facility] [address] [place] [address] * (ABNORMAL) POCT GLUCOSE, INTERFACED (06/30/2023 7:17 EDT) Glucose, POC 141(H) 70 - 100 mg/dL 06/30/2023 7:18 EDT [facility] HN LAB POC COMMENT (GLUCOSE) Test Performed by Nursing Services 06/30/2023 7:18 EDT [facility] Blood CAPILLARY BLOOD / Unknown 06/30/2023 7:17 EDT 06/30/2023 7:18 EDT Tai Azar MD POINT OF CARE TEST ORDERABLES Performing Organization Address City/[facility]/ZIP Co de Phone Number [facility] [address] [place] [address] * (ABNORMAL) SODIUM (06/29/2023 23:37 EDT) Sodium 130(L) 136 - 145 mmol/L 06/30/2023 0:06 EDT [facility] Blood VENOUS BLOOD / Unknown Venipuncture / Unknown 06/29/2023 23:37 EDT 06/29/2023 23:41 EDT Tai Azar MD CHEMISTRY & BLOOD G ORDERABLES [facility] [address] [place] [address] * (ABNORMAL) POCT GLUCOSE, INTERFACED (06/29/2023 20:45 EDT) Glucose, POC 200(H) 70 - 100 mg/dL 06/29/2023 20:46 EDT [facility] HN LAB POC COMMENT (GLUCOSE) Test Performed by Nursing Services 06/29/2023 20:46 EDT [facility] Blood CAPILLARY BLOOD / Unknown 06/29/2023 20:45 EDT 06/29/2023 20:46 EDT Tai Azar MD POINT OF CARE TEST ORDERABLES Performing Organization Address City/[facility]/ZIP Co de Phone Number [facility] [address], [place] [phone] * (ABNORMAL) SODIUM (06/29/2023 17:45 EDT) Sodium 130(L) 136 - 145 mmol/L 06/29/2023 18:29 EDT [facility] Blood VENOUS BLOOD / Unknown Venipuncture / Unknown 06/29/2023 17:45 EDT 06/29/2023 18:11 EDT Tai Azar MD CHEMISTRY & BLOOD G ORDERABLES Performing Organization Address [facility] Co de Phone Number [facility] [address] [place] [address] * (ABNORMAL) POCT GLUCOSE, INTERFACED (06/29/2023 17:03 EDT) Glucose, POC 122(H) 70 - 100 mg/dL 06/29/2023 17:08 EDT [facility] HN LAB POC COMMENT (GLUCOSE) Test Performed by Nursing Services 06/29/2023 17:08 EDT [facility] Blood CAPILLARY BLOOD / Unknown 06/29/2023 17:03 EDT 06/29/2023 17:08 EDT Tai Azar MD POINT OF CARE TEST ORDERABLES Performing Organization Address City/[facility]/ZIP Co de Phone Number [facility] [address] [place] [address] * (ABNORMAL) SODIUM (06/29/2023 14:33 EDT) Sodium 130(L) 136 - 145 mmol/L 06/29/2023 15:22 [facility] Blood VENOUS BLOOD / Unknown Venipuncture / Unknown 06/29/2023 14:33 EDT 06/29/2023 14:52 EDT Tai Azar MD CHEMISTRY & BLOOD G ORDERABLES [facility] [address] [place] [address] * (ABNORMAL) COMPLETE BLOOD COUNT AND DIFFERENTIAL (06/29/2023 14:33 EDT) WBC 9.81 4.00 - 12.40 K/cmm 06/29/2023 14:58 [facility] RBC 2.63(L) 3.86 - 5.04 M/cmm 06/29/2023 14:58 [facility] Hemoglobin 7.7(L) 11.6 - 15.2 g/dL 06/29/2023 14:58 [facility] HCT 23.2(L) 34.9 - 44.4 % 06/29/2023 14:58 [facility] MCV 88 81 - 98 fL 06/29/2023 14:58 [facility] MCH 29.3 26.7 - 33.3 pg 06/29/2023 14:58 [facility] MCHC 33.2 32.1 - 35.9 g/dL 06/29/2023 14:58 [facility] RDW-CV 14.8(H) <14.7 % 06/29/2023 14:58 [facility] RDW-SD 48.1 <50.4 fl 06/29/2023 14:58 [facility] PLT 488(H) 141 - 377 K/cmm 06/29/2023 14:58 [facility] MPV 9.5 9.5 - 12.7 fL 06/29/2023 14:58 [facility] % Neutrophils 75.2 % 06/29/2023 14:58 [facility] % Lymphocytes 9.8 % 06/29/2023 14:58 [facility] % Monocytes 9.7 % 06/29/2023 14:58 [facility] % Eosinophils 0.9 % 06/29/2023 14:58 [facility] % Basophils 0.5 % 06/29/2023 14:58 [facility] % Immature Grans 3.9 % 06/29/19 14:58 [facility] Absolute Neutrophils 7.38 2.20 - 8.85 K/cmm 06/29/2023 14:58 [facility] Absolute Lymphocytes 0.96(L) 1.09 - 3.30 K/cmm 06/29/2023 14:58 [facility] Absolute Monocytes 0.95(H) 0.10 - 0.80 K/cmm 06/29/2023 14:58 [facility] Absolute Eosinophils 0.09 0.03 - 0.61 K/cmm 06/29/2023 14:58 [facility] ABS Basophils 0.05 0.01 - 0.11 K/cmm 06/29/2023 14:58 [facility] Absolute Immature Grans 0.38(H) 0.00 - 0.06 K/cmm 06/29/2023 14:58 [facility] Type of Differential: Auto 06/29/2023 14:58 [facility] Blood VENOUS BLOOD / Unknown Venipuncture / Unknown 06/29/2023 14:33 EDT 06/29/2023 14:52 EDT Ayden Jennings PACKAGES & DNA PROBE ORDERABLES [facility] [address] [place] [address] * (ABNORMAL) POCT GLUCOSE, INTERFACED (06/29/2023 11:58 EDT) Glucose, POC 141(H) 70 - 100 mg/dL 06/29/2023 11:59 T [facility] HN LAB POC COMMENT (GLUCOSE) Test Performed by Nursing Services 06/29/2023 11:59 [facility] Blood CAPILLARY BLOOD / Unknown 06/29/2023 11:58 EDT 06/29/2023 11:59 EDT Tai Azar MD POINT OF CARE TEST ORDERABLES [facility] [address] [place] [address] * (ABNORMAL) BASIC METABOLIC PANEL (BMP) (06/29/2023 9:15 EDT) Sodium 131(L) 136 - 145 mmol/L 06/29/2023 10:06 [facility] Potassium 4.0 3.5 - 5.0 mmol/L 06/29/2023 10:06 [facility] Chloride 100 96 - 110 mmol/L 06/29/2023 10:06 [facility] CO2 Total 24 22 - 32 mmol/L 06/29/2023 10:06 [facility] Anion Gap 7 5 - 14 mmol/L 06/29/2023 10:06 [facility] Glucose 125(H) 70 - 99 mg/dl 06/29/2023 10:06 [facility] Calcium 8.1(L) 8.5 - 10.5 mg/dL 06/29/2023 10:06 [facility] BUN 10 10 - 26 mg/dL 06/29/2023 10:06 [facility] Creatinine 0.43(L) 0.52 - 1.04 mg/dL 06/29/2023 10:06 [facility] eGFR 117 >60 mL/min/1.73 m2 06/29/2023 10:06 [facility] Blood VENOUS BLOOD / Unknown Venipuncture / Unknown 06/29/2023 9:15 EDT 06/29/2023 9:27 EDT Reza Brito MD CHEMISTRY & BLOOD GA S ORDERABLES Performing Organization Address [facility] Co de Phone Number [facility] [address], [place] [phone] * MAGNESIUM (06/29/2023 9:15 EDT) Magnesium 1.9 1.7 - 2.8 mg/dL 06/29/2023 10:06 EDT [facility] Blood VENOUS BLOOD / Unknown Venipuncture / Unknown 06/29/2023 9:15 EDT 06/29/2023 9:27 EDT Reza Brito MD CHEMISTRY & BLOOD GA S ORDERABLES Performing Organization Address [facility] de Phone Number [facility] [address] [place] [address] * PHOSPHORUS (06/29/2023 9:15 EDT) Phosphorus 4.1 2.5 - 4.5 mg/dL 06/29/2023 10:06 EDT [facility] Blood VENOUS BLOOD / Unknown Venipuncture / Unknown 06/29/2023 9:15 EDT 06/29/2023 9:27 EDT Reza Brito MD CHEMISTRY & BLOOD GA S ORDERABLES Performing Organization Address [facility] Co de Phone Number [facility] [address], [place] [phone] * (ABNORMAL) POCT GLUCOSE, INTERFACED (06/29/2023 8:35 EDT) Glucose, POC 127(H) 70 - 100 mg/dL 06/29/2023 8:36 EDT [facility] HN LAB POC COMMENT (GLUCOSE) Test Performed by Nursing Services 06/29/2023 8:36 EDT [facility] Blood CAPILLARY BLOOD / Unknown 06/29/2023 8:35 EDT 06/29/2023 8:36 EDT Tai Azar MD POINT OF CARE TEST ORDERABLES Performing Organization Address City/[facility]/ZIP Co de Phone Number [facility] [address] [place] [address] * (ABNORMAL) SODIUM (06/29/2023 0:04 EDT) Sodium 129(L) 136 - 145 mmol/L 06/29/2023 0:40 EDT [facility] Blood VENOUS BLOOD / Unknown Venipuncture / Unknown 06/29/2023 0:04 EDT 06/29/2023 0:25 EDT Tai Azar MD CHEMISTRY & BLOOD G ORDERABLES Performing Organization Address [facility]/ZIP Co de Phone Number [facility] [address], [place] [phone] * (ABNORMAL) POCT GLUCOSE, INTERFACED (06/28/2023 20:46 EDT) Glucose, POC 219(H) 70 - 100 mg/dL 06/28/2023 20:49 EDT [facility] HN LAB POC COMMENT (GLUCOSE) Test Performed by Nursing Services 06/28/2023 20:49 EDT [facility] Blood CAPILLARY BLOOD / Unknown 06/28/2023 20:46 EDT 06/28/2023 20:49 EDT Tai Azar MD POINT OF CARE TEST ORDERABLES Performing Organization Address City/[facility]/ZIP Co de Phone Number [facility] [address], [place] [phone] * (ABNORMAL) POCT GLUCOSE, INTERFACED (06/28/2023 18:38 EDT) Glucose, POC 150(H) 70 - 100 mg/dL 06/28/2023 18:40 EDT [facility] HN LAB POC COMMENT (GLUCOSE) Test Performed by Nursing Services 06/28/2023 18:40 EDT [facility] Blood CAPILLARY BLOOD / Unknown 06/28/2023 18:38 EDT 06/28/2023 18:40 EDT Tai Azar MD POINT OF CARE TEST ORDERABLES Performing Organization Address City/[facility]/ZIP Co de Phone Number [facility] [address], [place] [phone] * (ABNORMAL) SODIUM (06/28/2023 18:10 EDT) Sodium 127(L) 136 - 145 mmol/L 06/28/2023 18:29 EDT [facility] Blood VENOUS BLOOD / Unknown Venipuncture / Unknown 06/28/2023 18:10 EDT 06/28/2023 18:14 EDT Tai Azar MD CHEMISTRY & BLOOD G ORDERABLES Performing Organization Address [facility] Co de Phone Number [facility] [address] [place] [address] * (ABNORMAL) SODIUM (06/28/2023 14:43 EDT) Sodium 127(L) 136 - 145 mmol/L 06/28/2023 15:58 EDT [facility] Blood VENOUS BLOOD / Unknown Venipuncture / Unknown 06/28/2023 14:43 EDT 06/28/2023 15:12 EDT Tai Azar MD CHEMISTRY & BLOOD G ORDERABLES Performing Organization Address [facility] Co de Phone Number [facility] [address] [place] [address] * (ABNORMAL) POCT GLUCOSE, INTERFACED (06/28/2023 14:13 EDT) Glucose, POC 152(H) 70 - 100 mg/dL 06/28/2023 14:15 EDT [facility] HN LAB POC COMMENT (GLUCOSE) Test Performed by Nursing Services 06/28/2023 14:15 [facility] Blood CAPILLARY BLOOD / Unknown 06/28/2023 14:13 EDT 06/28/2023 14:15 EDT Tai Azar MD POINT OF CARE TEST ORDERABLES [facility] [address] [place] [address] * (ABNORMAL) BASIC METABOLIC PANEL (BMP) (06/28/2023 9:36 EDT) Sodium 127(L) 136 - 145 mmol/L 06/28/2023 10:34 [facility] Potassium 4.5 3.5 - 5.0 mmol/L 06/28/2023 10:34 [facility] Chloride 96 96 - 110 mmol/L 06/28/2023 10:34 [facility] CO2 Total 24 22 - 32 mmol/L 06/28/2023 10:34 [facility] Anion Gap 7 5 - 14 mmol/L 06/28/2023 10:34 [facility] Glucose 160(H) 70 - 99 mg/dl 06/28/2023 10:34 [facility] Calcium 7.8(L) 8.5 - 10.5 mg/dL 06/28/2023 10:34 [facility] BUN 12 10 - 26 mg/dL 06/28/2023 10:34 [facility] Creatinine 0.52 0.52 - 1.04 mg/dL 06/28/2023 10:34 [facility] eGFR 112 >60 mL/min/1.73 m2 06/28/2023 10:34 [facility] Blood VENOUS BLOOD / Unknown Venipuncture / Unknown 06/28/2023 9:36 EDT 06/28/2023 10:06 EDT Reza Brito MD CHEMISTRY & BLOOD GA S ORDERABLES Performing Organization Address City/[facility]/ZIP Co de Phone Number [facility] [address] [place] [address] * MAGNESIUM (06/28/2023 9:36 EDT) Magnesium 1.8 1.7 - 2.8 mg/dL 06/28/2023 10:34 EDT [facility] Blood VENOUS BLOOD / Unknown Venipuncture / Unknown 06/28/2023 9:36 EDT 06/28/2023 10:06 EDT Reza Brito MD CHEMISTRY & BLOOD GA S ORDERABLES Performing Organization Address [facility] Co de Phone Number [facility] [address] [place] [address] * PHOSPHORUS (06/28/2023 9:36 EDT) Phosphorus 4.0 2.5 - 4.5 mg/dL 06/28/2023 10:34 EDT [facility] Blood VENOUS BLOOD / Unknown Venipuncture / Unknown 06/28/2023 9:36 EDT 06/28/2023 10:06 EDT Narrative Authorizing Provider Result Ambreen Brito MD CHEMISTRY & BLOOD GA S ORDERABLES Performing Organization Address City/[facility]/ZIP Co de Phone Number [facility] [address] [place] [address] * (ABNORMAL) COMPLETE BLOOD COUNT AND DIFFERENTIAL (06/28/2023 9:36 EDT) WBC 10.32 4.00 - 12.40 K/cmm 06/28/2023 11:07 EDT [facility] RBC 2.42(L) 3.86 - 5.04 M/cmm 06/28/2023 11:07 [facility] Hemoglobin 7.3(L) 11.6 - 15.2 g/dL 06/28/2023 11:07 [facility] HCT 21.4(L) 34.9 - 44.4 % 06/28/2023 11:07 [facility] MCV 88 81 - 98 fL 06/28/2023 11:07 [facility] MCH 30.2 26.7 - 33.3 pg 06/28/2023 11:07 [facility] MCHC 34.1 32.1 - 35.9 g/dL 06/28/2023 11:07 [facility] RDW-CV 15.1(H) <14.7 % 06/28/2023 11:07 [facility] RDW-SD 49.0 <50.4 fl 06/28/2023 11:07 [facility] PLT 465(H) 141 - 377 K/[facility] 06/28/2023 11:07 [facility] MPV 10.0 9.5 - 12.7 fL 06/28/2023 11:07 [facility] % Neutrophils 77.8 % 06/28/2023 11:07 [facility] % Lymphocytes 9.0 % 06/28/2023 11:07 [facility] % Monocytes 10.2 % 06/28/2023 11:07 [facility] % Eosinophils 0.9 % 06/28/2023 11:07 [facility] % Basophils 0.5 % 06/28/2023 11:07 [facility] % Immature Grans 1.6 % 06/28/19 11:07 [facility] Absolute Neutrophils 8.04 2.20 - 8.85 K/cmm 06/28/2023 11:07 [facility] Absolute Lymphocytes 0.93(L) 1.09 - 3.30 K/cmm 06/28/2023 11:07 [facility] Absolute Monocytes 1.05(H) 0.10 - 0.80 K/cmm 06/28/2023 11:07 EDT [facility] Absolute Eosinophils 0.09 0.03 - 0.61 K/cmm 06/28/2023 11:07 EDT [facility] ABS Basophils 0.05 0.01 - 0.11 K/cmm 06/28/2023 11:07 EDT [facility] Absolute Immature Grans 0.16(H) 0.00 - 0.06 K/cmm 06/28/2023 11:07 EDT [facility] Type of Differential: Auto 06/28/2023 11:07 T [facility] Blood VENOUS BLOOD / Unknown Venipuncture / Unknown 06/28/2023 9:36 EDT 06/28/2023 10:08 EDT Ayden Jennings PACKAGES & DNA PROBE ORDERABLES Performing Organization Address [facility]/ZIP Co de Phone Number [facility] [address] [place] [address] * (ABNORMAL) POCT GLUCOSE, INTERFACED (06/28/2023 7:33 EDT) Glucose, POC 124(H) 70 - 100 mg/dL 06/28/2023 7:35 EDT [facility] HN LAB POC COMMENT (GLUCOSE) Test Performed by Nursing Services 06/28/2023 7:35 EDT [facility] Blood CAPILLARY BLOOD / Unknown 06/28/2023 7:33 EDT 06/28/2023 7:35 EDT Hira Franklin MD POINT OF CARE TEST O RDERABLES Performing Organization Address City/[facility]/ZIP Co de Phone Number [facility] [address] [place] [address] * (ABNORMAL) POCT GLUCOSE, INTERFACED (06/28/2023 6:13 EDT) Glucose, POC 117(H) 70 - 100 mg/dL 06/28/2023 6:15 EDT [facility] HN LAB POC COMMENT (GLUCOSE) Test Performed by Nursing Services 06/28/2023 6:15 EDT [facility] Blood CAPILLARY BLOOD / Unknown 06/28/2023 6:13 EDT 06/28/2023 6:15 EDT Isabell Nolasco MD POINT OF CARE TEST O RDERABLES [facility] [address] [place] [address] * EKG 12-LEAD (06/28/2023 2:12 EDT) 06/28/2023 2:12 EDT Narrative [facility] EKG - 07/01/2023 13:38 EDT ? The ? Test Date: ?2023-06-28 Pat Name: ? DELLA BROWNING ? Department: ?? [facility] ? Room: ? B620 Gender: ? Female ? 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 [id number] : ?1970 ? Requested By: MARAH WHYTE Order Number: [id number] ? Alicia MCCLENDON: ?? CHIDI BRASHER MD ? Measurements Intervals ?[place] ? Rate: ? 76 ? P: ?34 IA: ? 156 ?QRS: ?40 QRSD: ? 85 ? T: ?90 QT: ? 392 ? QTc: ?442 ? Interpretive Statements SINUS RHYTHM POSSIBLE RIGHT VENTRICULAR CONDUCTION DELAY I reviewed the tracing and have either agreed or edited the findings in this report. Electronically Signed On 07-01-2023 13:38:31 EDT by CHIDI BRASHER MD. Procedure Note Chidi Brasher MD - 07/01/2023 The Test Date: 2023-06-28 Pat Name: DELLA BROWNING Department: [facility] Room: [facility] Gender: Female President Practicing Urologist: [id number] : 1970 Requested By: MARAH WHYTE Order Number: [id number] Reading MD: CHIDI BRASHER MD Measurements Intervals [place] Rate: 76 P: 34 IA: 156 QRS: 40 QRSD: 85 T: 90 QT: 392 QTc: 442 Interpretive Statements SINUS RHYTHM POSSIBLE RIGHT VENTRICULAR CONDUCTION DELAY I reviewed the tracing and have either agreed or edited the findings inthis report. Electronically Signed On 07-01-2023 13:38:31 EDT by CHIDI JURADO MD. Isabell Nolasco MD CARDIAC ECG ORDERABL ES Performing Organization Address City/[facility]/ZIP Co de Phone Number [facility] EKG * (ABNORMAL) POCT GLUCOSE, INTERFACED (06/27/2023 23:46 EDT) Glucose, POC 133(H) 70 - 100 mg/dL 06/27/2023 23:47 EDT [facility] HN LAB POC COMMENT (GLUCOSE) Test Performed by Nursing Services 06/27/2023 23:47 EDT [facility] Blood CAPILLARY BLOOD / Unknown 06/27/2023 23:46 EDT 06/27/2023 23:47 EDT Tai Azar MD POINT OF CARE TEST ORDERABLES Performing Organization Address [facility] Co de Phone Number [facility] [address] [place] [address] * (ABNORMAL) POCT GLUCOSE, INTERFACED (06/27/2023 17:55 EDT) Glucose, POC 185(H) 70 - 100 mg/dL 06/27/2023 17:56 EDT [facility] HN LAB POC COMMENT (GLUCOSE) Test Performed by Nursing Services 06/27/2023 17:56 EDT [facility] Blood CAPILLARY BLOOD / Unknown 06/27/2023 17:55 EDT 06/27/2023 17:56 EDT Tai Azar MD POINT OF CARE TEST ORDERABLES Performing Organization Address [facility]/ZIP Co de Phone Number [facility] [address] [place] [address] * ECG REPORT - SCANNED (06/27/2023 16:14 EDT) 06/27/2023 16:1 4 EDT Scan 2 Nursing Coordinator PROCEDURE/MINOR VI GICAL ORDERABLES * (ABNORMAL) POCT GLUCOSE, INTERFACED (06/27/2023 12:47 EDT) Glucose, POC 155(H) 70 - 100 mg/dL 06/27/2023 12:48 EDT [facility] HN LAB POC COMMENT (GLUCOSE) Test Performed by Nursing Services 06/27/2023 12:48 EDT [facility] Blood CAPILLARY BLOOD / Unknown 06/27/2023 12:47 EDT 06/27/2023 12:48 EDT Tai Azar MD POINT OF CARE TEST ORDERABLES [facility] [address] [place] [phone] * (ABNORMAL) BASIC METABOLIC PANEL (BMP) (06/27/2023 9:06 EDT) Sodium 134(L) 136 - 145 mmol/L 06/27/2023 10:13 [facility] Potassium 4.1 3.5 - 5.0 mmol/L 06/27/2023 10:13 [facility] Chloride 100 96 - 110 mmol/L 06/27/2023 10:13 [facility] CO2 Total 23 22 - 32 mmol/L 06/27/2023 10:13 [facility] Anion Gap 11 5 - 14 mmol/L 06/27/2023 10:13 [facility] Glucose 165(H) 70 - 99 mg/dl 06/27/2023 10:13 [facility] Calcium 7.7(L) 8.5 - 10.5 mg/dL 06/27/2023 10:13 [facility] BUN 14 10 - 26 mg/dL 06/27/2023 10:13 EDT [facility] Creatinine 0.53 0.52 - 1.04 mg/dL 06/27/2023 10:13 EDT [facility] eGFR 111 >60 mL/min/1.73 m2 06/27/2023 10:13 EDT [facility] Blood VENOUS BLOOD / Unknown Venipuncture / Unknown 06/27/2023 9:06 EDT 06/27/2023 9:26 EDT Reza Brito MD CHEMISTRY & BLOOD GA S ORDERABLES [facility] [address], [place] [id number] * MAGNESIUM (06/27/2023 9:06 EDT) Magnesium 1.9 1.7 - 2.8 mg/dL 06/27/2023 10:13 EDT [facility] Blood VENOUS BLOOD / Unknown Venipuncture / Unknown 06/27/2023 9:06 EDT 06/27/2023 9:26 EDT Reza Brito MD CHEMISTRY & BLOOD GA S ORDERABLES Performing Organization Address City/[facility]/ZIP Co de Phone Number [facility] [address] [place] [address] * PHOSPHORUS (06/27/2023 9:06 EDT) Phosphorus 3.7 2.5 - 4.5 mg/dL 06/27/2023 10:13 EDT [facility] Blood VENOUS BLOOD / Unknown Venipuncture / Unknown 06/27/2023 9:06 EDT 06/27/2023 9:26 EDT Reza Brito MD CHEMISTRY & BLOOD GA S ORDERABLES [facility] [address] [place] [phone] * (ABNORMAL) COMPLETE BLOOD COUNT AND DIFFERENTIAL (06/27/2023 9:06 EDT) WBC 8.97 4.00 - 12.40 K/cmm 06/27/2023 9:39 [facility] RBC 2.55(L) 3.86 - 5.04 M/cmm 06/27/2023 9:39 [facility] Hemoglobin 7.6(L) 11.6 - 15.2 g/dL 06/27/2023 9:39 [facility] HCT 22.7(L) 34.9 - 44.4 % 06/27/2023 9:39 [facility] MCV 89 81 - 98 fL 06/27/2023 9:39 [facility] MCH 29.8 26.7 - 33.3 pg 06/27/2023 9:39 [facility] MCHC 33.5 32.1 - 35.9 g/dL 06/27/2023 9:39 [facility] RDW-CV 15.5(H) <14.7 % 06/27/2023 9:39 [facility] RDW-SD 49.8 <50.4 fl 06/27/2023 9:39 [facility] PLT 378(H) 141 - 377 K/cmm 06/27/2023 9:39 [facility] MPV 9.9 9.5 - 12.7 fL 06/27/2023 9:39 [facility] % Neutrophils 76.2 % 06/27/2023 9:39 [facility] % Lymphocytes 10.7 % 06/27/2023 9:39 [facility] % Monocytes 10.4 % 06/27/2023 9:39 [facility] % Eosinophils 0.9 % 06/27/2023 9:39 [facility] % Basophils 0.6 % 06/27/2023 9:39 [facility] % Immature Grans 1.2 % 06/27/19 9:39 EDT [facility] Absolute Neutrophils 6.84 2.20 - 8.85 K/cmm 06/27/2023 9:39 T [facility] Absolute Lymphocytes 0.96(L) 1.09 - 3.30 K/cm 06/27/2023 9:39 T [facility] Absolute Monocytes 0.93(H) 0.10 - 0.80 K/cm 06/27/2023 9:39 T [facility] Absolute Eosinophils 0.08 0.03 - 0.61 K/cm 06/27/2023 9:39 T [facility] ABS Basophils 0.05 0.01 - 0.11 K/cm 06/27/2023 9:39 T [facility] Absolute Immature Grans 0.11(H) 0.00 - 0.06 K/cm 06/27/2023 9:39 T [facility] Type of Differential: Auto 06/27/2023 9:39 T [facility] Blood VENOUS BLOOD / Unknown Venipuncture / Unknown 06/27/2023 9:06 EDT 06/27/2023 9:26 EDT Ayden Jennings PACKAGES & DNA PROBE ORDERABLES [facility] [address], [place] [phone] * (ABNORMAL) POCT GLUCOSE, INTERFACED (06/27/2023 8:16 EDT) Glucose, POC 102(H) 70 - 100 mg/dL 06/27/2023 8:17 EDT [facility] HN LAB POC COMMENT (GLUCOSE) Test Performed by Nursing Services 06/27/2023 8:17 EDT [facility] Blood CAPILLARY BLOOD / Unknown 06/27/2023 8:16 EDT 06/27/2023 8:17 EDT Hira Franklin MD POINT OF CARE TEST O RDERABLES [facility] [address], [place] [phone] * POCT GLUCOSE, INTERFACED (06/27/2023 5:13 EDT) Glucose, POC 88 70 - 100 mg/dL 06/27/2023 5:14 EDT [facility] HN LAB POC COMMENT (GLUCOSE) Test Performed by Nursing Services 06/27/2023 5:14 EDT [facility] Blood CAPILLARY BLOOD / Unknown 06/27/2023 5:13 EDT 06/27/2023 5:14 EDT Tai Azar MD POINT OF CARE TEST ORDERABLES Performing Organization Address City/[facility]/ZIP Co de Phone Number [facility] [address], [place] [phone] * (ABNORMAL) POCT GLUCOSE, INTERFACED (06/26/2023 23:29 EDT) Glucose, POC 107(H) 70 - 100 mg/dL 06/26/2023 23:31 EDT [facility] HN LAB POC COMMENT (GLUCOSE) Test Performed by Nursing Services 06/26/2023 23:31 EDT [facility] Blood CAPILLARY BLOOD / Unknown 06/26/2023 23:29 EDT 06/26/2023 23:30 EDT Tai Azar MD POINT OF CARE TEST ORDERABLES [facility] [address], [place] [phone] * (ABNORMAL) POCT GLUCOSE, INTERFACED (06/26/2023 20:00 EDT) Glucose, POC 113(H) 70 - 100 mg/dL 06/26/2023 20:01 EDT [facility] HN LAB POC COMMENT (GLUCOSE) Test Performed by Nursing Services 06/26/2023 20:01 EDT [facility] Blood CAPILLARY BLOOD / Unknown 06/26/2023 20:00 EDT 06/26/2023 20:01 EDT Hira Franklin MD POINT OF CARE TEST O RDERABLES Performing Organization Address City/[facility]/ZIP Co de Phone Number [facility] [address], [place] [phone] * (ABNORMAL) POCT GLUCOSE, INTERFACED (06/26/2023 17:31 EDT) Glucose, POC 110(H) 70 - 100 mg/dL 06/26/2023 17:32 EDT [facility] HN LAB POC COMMENT (GLUCOSE) Test Performed by Nursing Services 06/26/2023 17:32 EDT [facility] Blood CAPILLARY BLOOD / Unknown 06/26/2023 17:31 EDT 06/26/2023 17:32 EDT Tai Azar MD POINT OF CARE TEST ORDERABLES Performing Organization Address [facility] Co de Phone Number [facility] [address], [place] [phone] * (ABNORMAL) POCT GLUCOSE, INTERFACED (06/26/2023 13:18 EDT) Glucose, POC 145(H) 70 - 100 mg/dL 06/26/2023 13:19 EDT [facility] HN LAB POC COMMENT (GLUCOSE) Test Performed by Nursing Services 06/26/2023 13:19 EDT [facility] Blood CAPILLARY BLOOD / Unknown 06/26/2023 13:18 EDT 06/26/2023 13:19 EDT Hira Franklin MD POINT OF CARE TEST O RDERABLES Performing Organization Address City/[facility]/ZIP Co de Phone Number [facility] [address] [place] [address] * TYPE AND SCREEN (06/26/2023 11:46 EDT) ABO O 06/26/2023 12:44 EDT [facility] BLOOD BANK Rh Factor Positive 06/26/2023 12:44 EDT [facility] B[facility] B[facility] Antibody Screen Negative 06/26/2023 12:44 EDT [facility] BLOOD BANK Specimen Expires: 06/29/2023 @ 23:59 06/26/2023 12:44 EDT [facility] BLOOD BANK Blood VENOUS BLOOD / Unknown Venipuncture / Unknown 06/26/2023 11:46 EDT 06/26/2023 12:02 EDT Isabell Nolasco MD BLOOD BANK TESTS [facility] BLOOD BANK [address] [facility] [place] [address] * (ABNORMAL) POCT GLUCOSE, INTERFACED (06/26/2023 10:49 EDT) Pathologist [facility] Glucose, POC 154(H) 70 - 100 mg/dL 06/26/2023 10:50 EDT [facility] HN LAB POC COMMENT (GLUCOSE) Test Performed by Nursing Services 06/26/2023 10:50 EDT [facility] Blood CAPILLARY BLOOD / Unknown 06/26/2023 10:49 EDT 06/26/2023 10:50 EDT Tai Azar MD POINT OF CARE TEST ORDERABLES [facility] [address] [place] [address] * MRSA PCR (06/26/2023 8:08 EDT) [facility] MRSA/Staph aureus Result No Staphylococcus aureus detected by PCR 06/26/2023 13:54 EDT [facility] Swab BOTH ANTERIOR NARES / Unknown Swab / Unknown 06/26/2023 8:08 EDT 06/26/2023 8:37 EDT Hira Franklin MD MICROBIOLOGY - GENER AL ORDERABLES [facility] [address] [place] [address] * (ABNORMAL) COMPLETE BLOOD COUNT AND DIFFERENTIAL (06/26/2023 8:04 EDT) WBC 9.99 4.00 - 12.40 K/cmm 06/26/2023 8:36 EDT [facility] RBC 2.58(L) 3.86 - 5.04 M/cmm 06/26/2023 8:36 [facility] Hemoglobin 7.4(L) 11.6 - 15.2 g/dL 06/26/2023 8:36 [facility] HCT 22.8(L) 34.9 - 44.4 % 06/26/2023 8:36 [facility] MCV 88 81 - 98 fL 06/26/2023 8:36 [facility] MCH 28.7 26.7 - 33.3 pg 06/26/2023 8:36 [facility] MCHC 32.5 32.1 - 35.9 g/dL 06/26/2023 8:36 [facility] RDW-CV 15.4(H) <14.7 % 06/26/2023 8:36 [facility] RDW-SD 48.9 <50.4 fl 06/26/2023 8:36 [facility] PLT 336 141 - 377 K/cmm 06/26/2023 8:36 [facility] MPV 9.7 9.5 - 12.7 fL 06/26/2023 8:36 [facility] % Neutrophils 82.0 % 06/26/2023 8:36 [facility] % Lymphocytes 8.0 % 06/26/2023 8:36 [facility] % Monocytes 8.3 % 06/26/2023 8:36 EDT [facility] % Eosinophils 0.4 % 06/26/2023 8:36 T [facility] % Basophils 0.4 % 06/26/2023 8:36 [facility] % Immature Grans 0.9 % 06/26/19 8:36 [facility] Absolute Neutrophils 8.19 2.20 - 8.85 K/cm 06/26/2023 8:36 [facility] Absolute Lymphocytes 0.80(L) 1.09 - 3.30 K/cm 06/26/2023 8:36 [facility] Absolute Monocytes 0.83(H) 0.10 - 0.80 K/cm 06/26/2023 8:36 [facility] Absolute Eosinophils 0.04 0.03 - 0.61 K/cm 06/26/2023 8:36 T [facility] ABS Basophils 0.04 0.01 - 0.11 K/cm 06/26/2023 8:36 [facility] Absolute Immature Grans 0.09(H) 0.00 - 0.06 K/cmm 06/26/2023 8:36 [facility] Type of Differential: Auto 06/26/2023 8:36 [facility] Blood VENOUS BLOOD / Unknown Venipuncture / Unknown 06/26/2023 8:04 EDT 06/26/2023 8:14 EDT Hira Franklin MD PACKAGES & DNA PROBE ORDERABLES [facility] [address] [place] [address] * (ABNORMAL) POCT GLUCOSE, INTERFACED (06/26/2023 7:29 EDT) Glucose, POC 138(H) 70 - 100 mg/dL 06/26/2023 13:18 EDT [facility] HN LAB POC COMMENT (GLUCOSE) Test Performed by Nursing Services 06/26/2023 13:18 EDT [facility] Blood CAPILLARY BLOOD / Unknown 06/26/2023 7:29 EDT 06/26/2023 13:18 EDT Tai Azar MD POINT OF CARE TEST ORDERABLES [facility] [address] [place] [address] * XR CHEST PORTABLE 1 VIEW (06/26/2023 [...] above interpretation and agree with the findings. [id number] Narrative 06/26/2023 8:28 EDT XR CHEST PORTABLE [...] of the right shoulder. Resulting Agency Comment [id number] Procedure Note Thong Nagel MD - 06/26/2023 XR CHEST PORTABLE [...] the above interpretation andagree with the findings. [id number] Ayden Jennings [facility] [place] ORDERABLES * (ABNORMAL) BASIC METABOLIC PANEL (BMP) (06/26/2023 6:08 EDT) Sodium 131(L) 136 - 145 mmol/L 06/26/2023 7:58 [facility] Potassium 4.3 3.5 - 5.0 mmol/L 06/26/2023 7:58 [facility] Chloride 99 96 - 110 mmol/L 06/26/2023 7:58 [facility] CO2 Total 23 22 - 32 mmol/L 06/26/2023 7:58 [facility] Anion Gap 9 5 - 14 mmol/L 06/26/2023 7:58 [facility] Glucose 123(H) 70 - 99 mg/dl 06/26/2023 7:58 [facility] Calcium 7.6(L) 8.5 - 10.5 mg/dL 06/26/2023 7:58 [facility] BUN 19 10 - 26 mg/dL 06/26/2023 7:58 [facility] Creatinine 0.48(L) 0.52 - 1.04 mg/dL 06/26/2023 7:58 EDT [facility] eGFR 114 >60 mL/min/1.73 m2 06/26/2023 7:58 EDT [facility] Blood VENOUS BLOOD / Unknown Venipuncture / Unknown 06/26/2023 6:08 EDT 06/26/2023 6:44 EDT Reza Brito MD CHEMISTRY & BLOOD GA S ORDERABLES [facility] [address] [place] [address] * MAGNESIUM (06/26/2023 6:08 EDT) Magnesium 2.0 1.7 - 2.8 mg/dL 06/26/2023 7:58 EDT [facility] Blood VENOUS BLOOD / Unknown Venipuncture / Unknown 06/26/2023 6:08 EDT 06/26/2023 6:44 EDT Reza Brito MD CHEMISTRY & BLOOD GA S ORDERABLES Performing Organization Address City/[facility]/ZIP Co de Phone Number [facility] [address] [place] [address] * (ABNORMAL) PHOSPHORUS (06/26/2023 6:08 EDT) Phosphorus 5.1(H) 2.5 - 4.5 mg/dL 06/26/2023 7:58 EDT [facility] Blood VENOUS BLOOD / Unknown Venipuncture / Unknown 06/26/2023 6:08 EDT 06/26/2023 6:44 EDT Reza Brito MD CHEMISTRY & BLOOD GA S ORDERABLES Performing Organization Address City/[facility]/ZIP Co de Phone Number [facility] [address] [place] [address] * (ABNORMAL) COMPLETE BLOOD COUNT AND DIFFERENTIAL (06/26/2023 6:08 EDT) WBC 10.84 4.00 - 12.40 K/cmm 06/26/2023 6:45 [facility] RBC 2.41(L) 3.86 - 5.04 M/cmm 06/26/2023 6:45 [facility] Hemoglobin 7.3(L) 11.6 - 15.2 g/dL 06/26/2023 6:45 [facility] HCT 21.4(L) 34.9 - 44.4 % 06/26/2023 6:45 [facility] MCV 89 81 - 98 fL 06/26/2023 6:45 [facility] MCH 30.3 26.7 - 33.3 pg 06/26/2023 6:45 [facility] MCHC 34.1 32.1 - 35.9 g/dL 06/26/2023 6:45 [facility] RDW-CV 15.3(H) <14.7 % 06/26/2023 6:45 [facility] RDW-SD 49.9 <50.4 fl 06/26/2023 6:45 [facility] PLT 349 141 - 377 K/cmm 06/26/2023 6:45 [facility] MPV 9.7 9.5 - 12.7 fL 06/26/2023 6:45 [facility] % Neutrophils 79.6 % 06/26/2023 6:45 [facility] % Lymphocytes 9.8 % 06/26/2023 6:45 [facility] % Monocytes 9.0 % 06/26/2023 6:45 [facility] % Eosinophils 0.4 % 06/26/2023 6:45 [facility] % Basophils 0.4 % 06/26/2023 6:45 [facility] % Immature Grans 0.8 % 06/26/19 6:45 [facility] Absolute Neutrophils 8.63 2.20 - 8.85 K/cm 06/26/2023 6:45 [facility] Absolute Lymphocytes 1.06(L) 1.09 - 3.30 K/cm 06/26/2023 6:45 [facility] Absolute Monocytes 0.98(H) 0.10 - 0.80 K/cm 06/26/2023 6:45 T [facility] Absolute Eosinophils 0.04 0.03 - 0.61 K/[facility] 06/26/2023 6:45 T [facility] ABS Basophils 0.04 0.01 - 0.11 K/[facility] 06/26/2023 6:45 [facility] Absolute Immature Grans 0.09(H) 0.00 - 0.06 K/[facility] 06/26/2023 6:45 [facility] Type of Differential: Auto 06/26/2023 6:45 [facility] Blood VENOUS BLOOD / Unknown Venipuncture / Unknown 06/26/2023 6:08 EDT 06/26/2023 6:33 EDT Ayden Jennings PACKAGES & DNA PROBE ORDERABLES [facility] [address] [place] [address] * POCT BLOOD GAS, EG6 I-STAT (06/26/2023 0:37 EDT) pH, Arterial, i-STAT 7.43 7.35 - 7.45 06/26/2023 0:43 EDT [facility] PCO2, Arterial, i-STAT 38 35 - 45 mmHg 06/26/2023 0:43 T [facility] pO2, Arterial, i-STAT 89 80 - 105 mmHg 06/26/2023 0:43 T [facility] TCO2, Arterial, i-STAT 26 22 - 26 mmol/L 06/26/2023 0:43 T [facility] O2 Saturation, Arterial, i-STAT 97 95 - 98 % 06/26/2023 0:43 EDT [facility] Base Excess(+) / Deficit(-), Arterial, i-STAT 1 -2 - 3 mmol/L 06/26/2023 0:43 EDT [facility] Blood ARTERIAL BLOOD / Unknown 06/26/2023 0:37 EDT 06/26/2023 0:43 EDT Narrative [facility] - 06/26/2023 0:43 EDT Test Performed by Respiratory For arterial collection, the Laboratory recommends that the Modified Ashutosh test be performed to determine that collateral circulation is present from the ulnar artery in the event that thrombosis of the radial artery should occur. Performance of the Modified Ashutosh test should be documented in the patients' chart Ashlie Valentine MD PhD POINT OF CARE TEST ORDERABLES Performing Organization Address City/State/[facility] Co de Phone Number [facility] [address] [place] [address] * EKG 12-LEAD (06/25/2023 23:32 EDT) 06/25/2023 23:3 2 EDT Narrative [facility] EKG - 06/28/2023 17:45 EDT ? The ? Test Date: ?2023-06-25 Pat Name: ? DELLA BROWNING ? Department: ?? [facility] ? Room: ? B690 Gender: ? Female ? 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 : ?1970 ? Requested By: BARBY MONTANEZ Order Number: [id number] ? Alicia MCCLENDON: ?? OTTONIEL STAHL MD ? Measurements Intervals ?[place] ? Rate: ? 117 ?P: ?0 IA: ? 0 ?QRS: ?72 QRSD: ? 89 [...] Electronically Signed On 06-28-2023 17:45:05 EDT by OTTONIEL STAHL MD. Procedure Note Ottoniel Stahl MD PhD - 06/28/2023 The Test Date: 2023-06-25 Pat Name: DELLA BROWNING Department: [place] [address] Room: [facility] Gender: Female President Practicing Urologist: : 1970 Requested By: BARBY MONTANEZ Order Number: [id number] Reading MD: OTTONIEL IGLESIAS Measurements Intervals [place] Rate: 117 P: 0 IA: 0 QRS: 72 QRSD: 89 T: 73 [...] Chrissie Rea MD CARDIAC ECG ORDERABL ES [facility] EKG * (ABNORMAL) POCT GLUCOSE, INTERFACED (06/25/2023 23:14 EDT) Glucose, POC 200(H) 70 - 100 mg/dL 06/25/2023 23:15 EDT [facility] HN LAB POC COMMENT (GLUCOSE) Test Performed by Nursing Services 06/25/2023 23:15 EDT [facility] Blood CAPILLARY BLOOD / Unknown 06/25/2023 23:14 EDT 06/25/2023 23:15 EDT Tai Azar MD POINT OF CARE TEST ORDERABLES [facility] [address] [place] [address] * (ABNORMAL) POCT BLOOD GAS, EG6 I-STAT (06/25/2023 23:11 EDT) pH, Arterial, i-STAT 7.33(L) 7.35 - 7.45 06/25/2023 23:16 EDT [facility] PCO2, Arterial, i-STAT 53(H) 35 - 45 mmHg 06/25/2023 23:16 T [facility] pO2, Arterial, i-STAT 107(H) 80 - 105 mmHg 06/25/2023 23:16 T [facility] TCO2, Arterial, i-STAT 30(H) 22 - 26 mmol/L 06/25/2023 23:16 [facility] O2 Saturation, Arterial, i-STAT 98 95 - 98 % 06/25/2023 23:16 [facility] Base Excess(+) / Deficit(-), Arterial, i-STAT 2 -2 - 3 mmol/L 06/25/2023 23:16 [facility] Blood ARTERIAL BLOOD / Unknown 06/25/2023 23:11 EDT 06/25/2023 23:16 EDT Narrative [facility] - 06/25/2023 23:16 EDT Test Performed by Respiratory For arterial collection, the Laboratory recommends that the Modified Ashutosh test be performed to determine that collateral circulation is present from the ulnar artery in the event that thrombosis of the radial artery should occur. Performance of the Modified Ashutosh test should be documented in the patients' chart Chrissie Rea MD POINT OF CARE TEST O RDERABLES [facility] [address] [place] [address] * XR CHEST PORTABLE 1 VIEW (06/25/2023 22:40 EDT) Anatomical Region Laterality Modality Computed Radiogr aphy 06/26/2023 8:42 EDT Impressions 06/26/2023 8:42 EDT 1. ??Hydrostatic edema and likely bilateral effusions, definitive on the left. 2. ??Left lower lobe consolidation, presumably atelectasis. [id number] Narrative 06/26/2023 8:42 EDT XR CHEST PORTABLE [...] findings: ??Normal. Bones: Normal. Resulting Agency Comment [id number] Procedure Note Thong Nagel MD - 06/26/2023 XR CHEST PORTABLE [...] 2. Left lower lobe consolidation, presumably atelectasis. [id number] Chrissie Rea MD IMG DIAGNOSTIC IMAGI NG ORDERABLES * SLIDE REQUEST (06/25/2023 22:38 EDT) Note A smear is filed in the Hematology lab. 06/26/2023 0:03 EDT [facility] Blood VENOUS BLOOD / Unknown Venipuncture / Unknown 06/25/2023 22:38 EDT 06/25/2023 22:42 EDT Chrissie Rea MD HEMATOLOGY & PF4 ORD ERABLES Performing Organization Address City/State/[facility] Co de Phone Number [facility] [address] [place] [address] * (ABNORMAL) TROPONIN I (06/25/2023 22:38 EDT) [facility] Troponin I (ng/mL) 0.080(H) <0.034 ng/mL 06/25/2023 23:21 EDT [facility] Comment:Slight hemolysis miky ntified, interpret with caution as results may be affected due to hemolysis. Blood VENOUS BLOOD / Unknown Venipuncture / Unknown 06/25/2023 22:38 EDT 06/25/2023 22:42 EDT Narrative [facility] - 06/25/2023 23:21 EDT The results of this assay can be falsely lowered due to the consumption of Biotin. Chrissie Rea MD CHEMISTRY & BLOOD GA S ORDERABLES Performing Organization Address [facility] Co de Phone Number [facility] [address] [place] [phone] * (ABNORMAL) BASIC METABOLIC PANEL (BMP) (06/25/2023 22:38 EDT) [facility] Sodium 132(L) 136 - 145 mmol/L 06/25/2023 23:00 EDT [facility] Potassium 5.0 3.5 - 5.0 mmol/L 06/25/2023 23:00 EDT [facility] Comment:Slight hemolysis miky ntified, interpret with caution as hemolysis will elevate potassium result. Chloride 98 96 - 110 mmol/L 06/25/2023 23:00 EDT [facility] CO2 Total 22 22 - 32 mmol/L 06/25/2023 23:00 EDT [facility] Anion Gap 12 5 - 14 mmol/L 06/25/2023 23:00 EDT [facility] Glucose 171(H) 70 - 99 mg/dl 06/25/2023 23:00 EDT [facility] Calcium 8.5 8.5 - 10.5 mg/dL 06/25/2023 23:00 EDT [facility] BUN 19 10 - 26 mg/dL 06/25/2023 23:00 T [facility] Comment: Slight hemolysis identified, interpret with caution as results may be affected due to hemolysis. Creatinine 0.45(L) 0.52 - 1.04 mg/dL 06/25/2023 23:00 T [facility] eGFR 116 >60 mL/min/1.7 3m2 06/25/2023 23:00 T [facility] Blood VENOUS BLOOD / Unknown Venipuncture / Unknown 06/25/2023 22:38 EDT 06/25/2023 22:42 EDT Chrissie Rea MD CHEMISTRY & BLOOD GA S ORDERABLES [facility] [address] [place] [address] * (ABNORMAL) COMPLETE BLOOD COUNT (06/25/2023 22:38 EDT) WBC 20.32(H) 4.00 - 12.40 K/cmm 06/25/2023 23:48 [facility] RBC 3.43(L) 3.86 - 5.04 M/cmm 06/25/2023 23:48 [facility] Hemoglobin 10.4(L) 11.6 - 15.2 g/dL 06/25/2023 23:48 [facility] HCT 30.8(L) 34.9 - 44.4 % 06/25/2023 23:48 [facility] MCV 90 81 - 98 fL 06/25/2023 23:48 [facility] MCH 30.3 26.7 - 33.3 pg 06/25/2023 23:48 [facility] MCHC 33.8 32.1 - 35.9 g/dL 06/25/2023 23:48 [facility] RDW-CV 15.9(H) <14.7 % 06/25/2023 23:48 [facility] RDW-SD 51.8(H) <50.4 fl 06/25/2023 23:48 EDT [facility] PLT 592(H) 141 - 377 K/cmm 06/25/2023 23:48 EDT [facility] MPV 10.2 9.5 - 12.7 fL 06/25/2023 23:48 EDT [facility] Blood VENOUS BLOOD / Unknown Venipuncture / Unknown 06/25/2023 22:38 EDT 06/25/2023 22:42 EDT Chrissie Rea MD HEMATOLOGY & PF4 ORD ERABLES Performing Organization Address City/[facility]/ZIP Co de Phone Number [facility] [address] [place] [address] * (ABNORMAL) POCT GLUCOSE, INTERFACED (06/25/2023 17:07 EDT) Glucose, POC 169(H) 70 - 100 mg/dL 06/25/2023 17:09 EDT [facility] HN LAB POC COMMENT (GLUCOSE) Test Performed by Nursing Services 06/25/2023 17:09 EDT [facility] Blood CAPILLARY BLOOD / Unknown 06/25/2023 17:07 EDT 06/25/2023 17:09 EDT Tai Azar MD POINT OF CARE TEST ORDERABLES Performing Organization Address City/[facility]/ZIP Co de Phone Number [facility] [address] [place] [address] * (ABNORMAL) POCT GLUCOSE, INTERFACED (06/25/2023 12:05 EDT) Glucose, POC 187(H) 70 - 100 mg/dL 06/25/2023 12:06 EDT [facility] HN LAB POC COMMENT (GLUCOSE) Test Performed by Nursing Services 06/25/2023 12:06 EDT [facility] Blood CAPILLARY BLOOD / Unknown 06/25/2023 12:05 EDT 06/25/2023 12:06 EDT Tai Azar MD POINT OF CARE TEST ORDERABLES [facility] [address] [place] [address] * (ABNORMAL) BASIC METABOLIC PANEL (BMP) (06/25/2023 8:33 EDT) Sodium 132(L) 136 - 145 mmol/L 06/25/2023 9:29 EDT [facility] Potassium 4.5 3.5 - 5.0 mmol/L 06/25/2023 9:29 EDT [facility] Chloride 99 96 - 110 mmol/L 06/25/2023 9:29 [facility] CO2 Total 24 22 - 32 mmol/L 06/25/2023 9:29 EDT [facility] Anion Gap 9 5 - 14 mmol/L 06/25/2023 9:29 [facility] Glucose 138(H) 70 - 99 mg/dl 06/25/2023 9:29 T [facility] Calcium 8.0(L) 8.5 - 10.5 mg/dL 06/25/2023 9:29 T [facility] BUN 17 10 - 26 mg/dL 06/25/2023 9:29 [facility] Creatinine 0.40(L) 0.52 - 1.04 mg/dL 06/25/2023 9:29 T [facility] eGFR 119 >60 mL/min/1.73 m2 06/25/2023 9:29 [facility] Blood VENOUS BLOOD / Unknown Venipuncture / Unknown 06/25/2023 8:33 EDT 06/25/2023 9:01 EDT Reza Brito MD CHEMISTRY & BLOOD GA S ORDERABLES [facility] [address] [place] [id number] * MAGNESIUM (06/25/2023 8:33 EDT) [facility] Magnesium 1.9 1.7 - 2.8 mg/dL 06/25/2023 9:29 EDT [facility] Blood VENOUS BLOOD / Unknown Venipuncture / Unknown 06/25/2023 8:33 EDT 06/25/2023 9:01 EDT Reza Brito MD CHEMISTRY & BLOOD GA S ORDERABLES [facility] [address] [place] [address] * (ABNORMAL) PHOSPHORUS (06/25/2023 8:33 EDT) [facility] Phosphorus 5.4(H) 2.5 - 4.5 mg/dL 06/25/2023 9:29 EDT [facility] Blood VENOUS BLOOD / Unknown Venipuncture / Unknown 06/25/2023 8:33 EDT 06/25/2023 9:01 EDT Reza Brito MD CHEMISTRY & BLOOD GA S ORDERABLES [facility] [address] [place] [address] * (ABNORMAL) COMPLETE BLOOD COUNT AND DIFFERENTIAL (06/25/2023 8:33 EDT) [facility] WBC 10.99 4.00 - 12.40 K/cmm 06/25/2023 9:01 EDT [facility] RBC 2.74(L) 3.86 - 5.04 M/cmm 06/25/2023 9:01 [facility] Hemoglobin 8.2(L) 11.6 - 15.2 g/dL 06/25/2023 9:01 [facility] HCT 24.2(L) 34.9 - 44.4 % 06/25/2023 9:01 [facility] MCV 88 81 - 98 fL 06/25/2023 9:01 [facility] MCH 29.9 26.7 - 33.3 pg 06/25/2023 9:01 [facility] MCHC 33.9 32.1 - 35.9 g/dL 06/25/2023 9:01 [facility] RDW-CV 15.9(H) <14.7 % 06/25/2023 9:01 [facility] RDW-SD 50.2 <50.4 fl 06/25/2023 9:01 [facility] PLT 389(H) 141 - 377 K/cmm 06/25/2023 9:01 [facility] MPV 9.7 9.5 - 12.7 fL 06/25/2023 9:01 [facility] % Neutrophils 82.4 % 06/25/2023 9:01 [facility] % Lymphocytes 8.4 % 06/25/2023 9:01 [facility] % Monocytes 7.1 % 06/25/2023 9:01 [facility] % Eosinophils 0.4 % 06/25/2023 9:01 [facility] % Basophils 0.5 % 06/25/2023 9:01 [facility] % Immature Grans 1.2 % 06/25/19 9:01 [facility] Absolute Neutrophils 9.06(H) 2.20 - 8.85 K/cmm 06/25/2023 9:01 [facility] Absolute Lymphocytes 0.92(L) 1.09 - 3.30 K/cmm 06/25/2023 9:01 [facility] Absolute Monocytes 0.78 0.10 - 0.80 K/cmm 06/25/2023 9:01 [facility] Absolute Eosinophils 0.04 0.03 - 0.61 K/cmm 06/25/2023 9:01 [facility] ABS Basophils 0.06 0.01 - 0.11 K/cmm 06/25/2023 9:01 EDT [facility] Absolute Immature Grans 0.13(H) 0.00 - 0.06 K/cmm 06/25/2023 9:01 EDT [facility] Type of Differential: Auto 06/25/2023 9:01 EDT [facility] Blood VENOUS BLOOD / Unknown Venipuncture / Unknown 06/25/2023 8:33 EDT 06/25/2023 8:40 EDT Ayden Jane Jennings PACKAGES & DNA PROBE ORDERABLES Performing Organization Address City/[facility]/ZIP Co de Phone Number [facility] [address] [place] [address] * (ABNORMAL) POCT GLUCOSE, INTERFACED (06/25/2023 5:15 EDT) Glucose, POC 161(H) 70 - 100 mg/dL 06/25/2023 5:15 EDT [facility] HN LAB POC COMMENT (GLUCOSE) Test Performed by Nursing Services 06/25/2023 5:15 EDT [facility] Blood CAPILLARY BLOOD / Unknown 06/25/2023 5:15 EDT 06/25/2023 5:15 EDT Tai Azar MD POINT OF CARE TEST ORDERABLES Performing Organization Address City/[facility]/ZIP Co de Phone Number [facility] [address] [place] [phone] * (ABNORMAL) POCT GLUCOSE, INTERFACED (06/24/2023 23:25 EDT) Glucose, POC 128(H) 70 - 100 mg/dL 06/24/2023 23:26 EDT [facility] HN LAB POC COMMENT (GLUCOSE) Test Performed by Nursing Services 06/24/2023 23:26 EDT [facility] Blood CAPILLARY BLOOD / Unknown 06/24/2023 23:25 EDT 06/24/2023 23:26 EDT Tai Azar MD POINT OF CARE TEST ORDERABLES [facility] [address], [place] [phone] * (ABNORMAL) POCT GLUCOSE, INTERFACED (06/24/2023 17:57 EDT) Glucose, POC 257(H) 70 - 100 mg/dL 06/24/2023 17:58 EDT [facility] HN LAB POC COMMENT (GLUCOSE) Test Performed by Nursing Services 06/24/2023 17:58 EDT [facility] Blood CAPILLARY BLOOD / Unknown 06/24/2023 17:57 EDT 06/24/2023 17:58 EDT Tai Azar MD POINT OF CARE TEST ORDERABLES Performing Organization Address City/[facility]/ZIP Co de Phone Number [facility] [address], [place] [phone] * (ABNORMAL) POCT GLUCOSE, INTERFACED (06/24/2023 12:45 EDT) Glucose, POC 235(H) 70 - 100 mg/dL 06/24/2023 12:46 EDT [facility] HN LAB POC COMMENT (GLUCOSE) Test Performed by Nursing Services 06/24/2023 12:46 EDT [facility] Blood CAPILLARY BLOOD / Unknown 06/24/2023 12:45 EDT 06/24/2023 12:46 EDT Tai Azar MD POINT OF CARE TEST ORDERABLES Performing Organization Address City/[facility]/ZIP Co de Phone Number [facility] [address], [place] [phone] * EKG 12-LEAD (06/24/2023 5:20 EDT) 06/24/2023 5:20 EDT Narrative [facility] E[facility] - 07/02/2023 9:54 EDT ? The ? Test Date: ?2023-06-24 Pat Name: ? DELLA BROWNING ? Department: ?? [facility] [address] ? Room: ? B690 Gender: ? Female ? 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 [id number] : ?1970 ? Requested By: MARAH WHYTE Order Number: [id number] ? Reading MD: ?? LILLIAM FAN MD ? Measurements Intervals ?[place] ? Rate: ? 94 ? P: ?38 IA: ? 161 ?QRS: ?51 QRSD: ? 84 ? T: ?78 QT: ? 347 ? QTc: ?436 ? Interpretive Statements SINUS RHYTHM POOR R WAVE PROGRESSION ABNORMAL EKG I reviewed the tracing and have either agreed or edited the findings in this report. Electronically Signed On 07-02-2023 09:54:12 EDT by LILLIAM FAN MD. Procedure Note Lilliam Fan MD - 07/02/2023 The Test Date: 2023-06-24 Pat Name: DELLA BROWNING Department: [place] [address] Room: [facility] Gender: Female President Practicing Urologist: [id number] : 1970 Requested By: MARAH WHYTE Order Number: [id number] Reading MD: LILLIAM FAN MD Measurements Intervals [place] Rate: 94 P: 38 IA: 161 QRS: 51 QRSD: 84 T: 78 QT: 347 QTc: 436 Interpretive Statements SINUS RHYTHM POOR R WAVE PROGRESSION ABNORMAL EKG I reviewed the tracing and have either agreed or edited the findings inthis report. Electronically Signed On 07-02-2023 09:54:12 EDT by GAYATRI MCCLENDON. Isabell Nolasco MD CARDIAC ECG ORDERABL ES [facility] EKG * (ABNORMAL) TROPONIN I (06/24/2023 5:07 EDT) Troponin I (ng/mL) 0.161(H) <0.034 ng/mL 06/24/2023 5:39 [facility] Blood VENOUS BLOOD / Unknown Venipuncture / Unknown 06/24/2023 5:07 EDT 06/24/2023 5:11 EDT Narrative [facility] - 06/24/2023 5:39 EDT The results of this assay can be falsely lowered due to the consumption of Biotin. Isabell Nolasco MD CHEMISTRY & BLOOD GA S ORDERABLES [facility] [address] [place] [address] * (ABNORMAL) BASIC METABOLIC PANEL (BMP) (06/24/2023 5:07 EDT) Sodium 130(L) 136 - 145 mmol/L 06/24/2023 5:26 [facility] Potassium 4.7 3.5 - 5.0 mmol/L 06/24/2023 5:26 [facility] Chloride 97 96 - 110 mmol/L 06/24/2023 5:26 [facility] CO2 Total 27 22 - 32 mmol/L 06/24/2023 5:26 [facility] Anion Gap 6 5 - 14 mmol/L 06/24/2023 5:26 [facility] Glucose 257(H) 70 - 99 mg/dl 06/24/2023 5:26 [facility] Calcium 8.4(L) 8.5 - 10.5 mg/dL 06/24/2023 5:26 [facility] BUN 17 10 - 26 mg/dL 06/24/2023 5:26 [facility] Creatinine 0.39(L) 0.52 - 1.04 mg/dL 06/24/2023 5:26 [facility] eGFR 120 >60 mL/min/1.73 m2 06/24/2023 5:26 [facility] Blood VENOUS BLOOD / Unknown Venipuncture / Unknown 06/24/2023 5:07 EDT 06/24/2023 5:11 EDT Reza Brito MD CHEMISTRY & BLOOD GA S ORDERABLES Performing Organization Address City/[facility]/ZIP Co de Phone Number [facility] [address], [place] [phone] * MAGNESIUM (06/24/2023 5:07 EDT) Magnesium 1.9 1.7 - 2.8 mg/dL 06/24/2023 5:26 EDT [facility] Blood VENOUS BLOOD / Unknown Venipuncture / Unknown 06/24/2023 5:07 EDT 06/24/2023 5:11 EDT Reza Brito MD CHEMISTRY & BLOOD GA S ORDERABLES Performing Organization Address [facility] Co de Phone Number [facility] [address], [place] [phone] * (ABNORMAL) PHOSPHORUS (06/24/2023 5:07 EDT) Phosphorus 4.8(H) 2.5 - 4.5 mg/dL 06/24/2023 5:26 EDT [facility] Blood VENOUS BLOOD / Unknown Venipuncture / Unknown 06/24/2023 5:07 EDT 06/24/2023 5:11 EDT Reza Brito MD CHEMISTRY & BLOOD GA S ORDERABLES Performing Organization Address City/[facility]/ZIP Co de Phone Number [facility] [address], [place] [phone] * (ABNORMAL) COMPLETE BLOOD COUNT AND DIFFERENTIAL (06/24/2023 5:07 EDT) WBC 14.87(H) 4.00 - 12.40 K/cmm 06/24/2023 5:17 EDT [facility] RBC 3.08(L) 3.86 - 5.04 M/cmm 06/24/2023 5:17 [facility] Hemoglobin 9.2(L) 11.6 - 15.2 g/dL 06/24/2023 5:17 [facility] HCT 26.6(L) 34.9 - 44.4 % 06/24/2023 5:17 [facility] MCV 86 81 - 98 fL 06/24/2023 5:17 [facility] MCH 29.9 26.7 - 33.3 pg 06/24/2023 5:17 [facility] MCHC 34.6 32.1 - 35.9 g/dL 06/24/2023 5:17 [facility] RDW-CV 15.7(H) <14.7 % 06/24/2023 5:17 [facility] RDW-SD 48.8 <50.4 fl 06/24/2023 5:17 [facility] PLT 411(H) 141 - 377 K/cmm 06/24/2023 5:17 [facility] MPV 9.3(L) 9.5 - 12.7 fL 06/24/2023 5:17 [facility] % Neutrophils 87.2 % 06/24/2023 5:17 [facility] % Lymphocytes 6.1 % 06/24/2023 5:17 [facility] % Monocytes 5.0 % 06/24/2023 5:17 [facility] % Eosinophils 0.1 % 06/24/2023 5:17 [facility] % Basophils 0.3 % 06/24/2023 5:17 [facility] % Immature Grans 1.3 % 06/24/19 5:17 [facility] Absolute Neutrophils 12.96(H) 2.20 - 8.85 K/cmm 06/24/2023 5:17 [facility] Absolute Lymphocytes 0.91(L) 1.09 - 3.30 K/cmm 06/24/2023 5:17 [facility] Absolute Monocytes 0.75 0.10 - 0.80 K/cmm 06/24/2023 5:17 EDT [facility] Absolute Eosinophils 0.02(L) 0.03 - 0.61 K/cmm 06/24/2023 5:17 EDT [facility] ABS Basophils 0.04 0.01 - 0.11 K/cmm 06/24/2023 5:17 EDT [facility] Absolute Immature Grans 0.19(H) 0.00 - 0.06 K/cmm 06/24/2023 5:17 EDT [facility] Type of Differential: Auto 06/24/2023 5:17 EDT [facility] Blood VENOUS BLOOD / Unknown Venipuncture / Unknown 06/24/2023 5:07 EDT 06/24/2023 5:10 EDT Ayden Jennings PACKAGES & DNA PROBE ORDERABLES [facility] [address], [place] [phone] * (ABNORMAL) POCT GLUCOSE, INTERFACED (06/24/2023 5:07 EDT) Glucose, POC 248(H) 70 - 100 mg/dL 06/24/2023 5:10 EDT [facility] HN LAB POC COMMENT (GLUCOSE) Test Performed by Nursing Services 06/24/2023 5:10 EDT [facility] Blood CAPILLARY BLOOD / Unknown 06/24/2023 5:07 EDT 06/24/2023 5:10 EDT Tai Azar MD POINT OF CARE TEST ORDERABLES [facility] [address] [place] [address] * ECG REPORT - SCANNED (06/24/2023 3:47 EDT) 06/24/2023 3:47 EDT Scan 2 Nursing Coordinator PROCEDURE/MINOR VI GICAL ORDERABLES * ECG REPORT - SCANNED (06/24/2023 3:47 EDT) 06/24/2023 3:47 EDT Scan 2 Nursing Coordinator PROCEDURE/MINOR VI GICAL ORDERABLES * (ABNORMAL) POCT GLUCOSE, INTERFACED (06/24/2023 0:15 EDT) Glucose, POC 202(H) 70 - 100 mg/dL 06/24/2023 0:43 EDT [facility] HN LAB POC COMMENT (GLUCOSE) Test Performed by Nursing Services 06/24/2023 0:43 EDT [facility] Blood CAPILLARY BLOOD / Unknown 06/24/2023 0:15 EDT 06/24/2023 0:43 EDT Tai Azar MD POINT OF CARE TEST ORDERABLES Performing Organization Address City/[facility]/ZIP Co de Phone Number [facility] [address] [place] [address] * (ABNORMAL) POCT GLUCOSE, INTERFACED (06/23/2023 17:44 EDT) Glucose, POC 129(H) 70 - 100 mg/dL 06/23/2023 17:46 EDT [facility] HN LAB POC COMMENT (GLUCOSE) Test Performed by Nursing Services 06/23/2023 17:46 EDT [facility] Blood CAPILLARY BLOOD / Unknown 06/23/2023 17:44 EDT 06/23/2023 17:46 EDT Tai Azar MD POINT OF CARE TEST ORDERABLES Performing Organization Address City/[facility]/ZIP Co de Phone Number [facility] [address] [place] [address] * (ABNORMAL) POCT GLUCOSE, INTERFACED (06/23/2023 11:56 EDT) Glucose, POC 161(H) 70 - 100 mg/dL 06/23/2023 12:02 EDT [facility] HN LAB POC COMMENT (GLUCOSE) Test Performed by Nursing Services 06/23/2023 12:02 EDT [facility] Blood CAPILLARY BLOOD / Unknown 06/23/2023 11:56 EDT 06/23/2023 12:01 EDT Tai Azar MD POINT OF CARE TEST ORDERABLES [facility] [address] [place] [address] * (ABNORMAL) POCT GLUCOSE, INTERFACED (06/23/2023 5:52 EDT) Glucose, POC 225(H) 70 - 100 mg/dL 06/23/2023 5:53 EDT [facility] HN LAB POC COMMENT (GLUCOSE) Test Performed by Nursing Services 06/23/2023 5:53 EDT [facility] Blood CAPILLARY BLOOD / Unknown 06/23/2023 5:52 EDT 06/23/2023 5:53 EDT Tai Azar MD POINT OF CARE TEST ORDERABLES [facility] [address] [place] [address] * (ABNORMAL) BASIC METABOLIC PANEL (BMP) (06/23/2023 5:44 EDT) Sodium 132(L) 136 - 145 mmol/L 06/23/2023 6:29 EDT [facility] Potassium 4.8 3.5 - 5.0 mmol/L 06/23/2023 6:29 EDT [facility] Chloride 98 96 - 110 mmol/L 06/23/2023 6:29 EDT [facility] CO2 Total 25 22 - 32 mmol/L 06/23/2023 6:29 EDT [facility] Anion Gap 9 5 - 14 mmol/L 06/23/2023 6:29 EDT [facility] Glucose 231(H) 70 - 99 mg/dl 06/23/2023 6:29 EDT [facility] Calcium 8.5 8.5 - 10.5 mg/dL 06/23/2023 6:29 T [facility] BUN 17 10 - 26 mg/dL 06/23/2023 6:29 T [facility] Creatinine 0.36(L) 0.52 - 1.04 mg/dL 06/23/2023 6:29 T [facility] eGFR 122 >60 mL/min/1.73 m2 06/23/2023 6:29 EDT [facility] Blood VENOUS BLOOD / Unknown Venipuncture / Unknown 06/23/2023 5:44 EDT 06/23/2023 5:49 EDT Reza Brito MD CHEMISTRY & BLOOD GA S ORDERABLES Performing Organization Address City/[facility]/ZIP Co de Phone Number [facility] [address] [place] [address] * (ABNORMAL) MAGNESIUM (06/23/2023 5:44 EDT) Magnesium 1.6(L) 1.7 - 2.8 mg/dL 06/23/2023 6:29 EDT [facility] Blood VENOUS BLOOD / Unknown Venipuncture / Unknown 06/23/2023 5:44 EDT 06/23/2023 5:49 EDT Reza Brito MD CHEMISTRY & BLOOD GA S ORDERABLES [facility] [address] [place] [address] * PHOSPHORUS (06/23/2023 5:44 EDT) Phosphorus 3.6 2.5 - 4.5 mg/dL 06/23/2023 6:29 T [facility] Blood VENOUS BLOOD / Unknown Venipuncture / Unknown 06/23/2023 5:44 EDT 06/23/2023 5:49 EDT Reza Brito MD CHEMISTRY & BLOOD GA S ORDERABLES [facility] [address] [place] [address] * (ABNORMAL) COMPLETE BLOOD COUNT AND DIFFERENTIAL (06/23/2023 5:44 EDT) WBC 16.19(H) 4.00 - 12.40 K/cmm 06/23/2023 6:24 [facility] RBC 3.11(L) 3.86 - 5.04 M/cmm 06/23/2023 6:24 [facility] Hemoglobin 9.3(L) 11.6 - 15.2 g/dL 06/23/2023 6:24 [facility] HCT 27.7(L) 34.9 - 44.4 % 06/23/2023 6:24 [facility] MCV 89 81 - 98 fL 06/23/2023 6:24 [facility] MCH 29.9 26.7 - 33.3 pg 06/23/2023 6:24 [facility] MCHC 33.6 32.1 - 35.9 g/dL 06/23/2023 6:24 [facility] RDW-CV 15.9(H) <14.7 % 06/23/2023 6:24 [facility] RDW-SD 51.1(H) <50.4 fl 06/23/2023 6:24 [facility] PLT 484(H) 141 - 377 K/cmm 06/23/2023 6:24 [facility] MPV 9.4(L) 9.5 - 12.7 fL 06/23/2023 6:24 EDT [facility] % Neutrophils 88.3 % 06/23/2023 6:24 [facility] % Lymphocytes 5.4 % 06/23/2023 6:24 [facility] % Monocytes 4.1 % 06/23/2023 6:24 [facility] % Eosinophils 0.1 % 06/23/2023 6:24 [facility] % Basophils 0.2 % 06/23/2023 6:24 [facility] % Immature Grans 1.9 % 06/23/19 6:24 [facility] Absolute Neutrophils 14.29(H) 2.20 - 8.85 K/cmm 06/23/2023 6:24 [facility] Absolute Lymphocytes 0.87(L) 1.09 - 3.30 K/cmm 06/23/2023 6:24 [facility] Absolute Monocytes 0.66 0.10 - 0.80 K/cmm 06/23/2023 6:24 [facility] Absolute Eosinophils 0.02(L) 0.03 - 0.61 K/cmm 06/23/2023 6:24 [facility] ABS Basophils 0.04 0.01 - 0.11 K/cmm 06/23/2023 6:24 [facility] Absolute Immature Grans 0.31(H) 0.00 - 0.06 K/cmm 06/23/2023 6:24 [facility] Type of Differential: Auto 06/23/2023 6:24 [facility] Blood VENOUS BLOOD / Unknown Venipuncture / Unknown 06/23/2023 5:44 EDT 06/23/2023 5:49 EDT Ayden Jennings PACKAGES & DNA PROBE ORDERABLES [facility] [address] [place] [address] * (ABNORMAL) POCT GLUCOSE, INTERFACED (06/22/2023 23:48 EDT) Glucose, POC 243(H) 70 - 100 mg/dL 06/22/2023 23:49 EDT [facility] HN LAB POC COMMENT (GLUCOSE) Test Performed by Nursing Services 06/22/2023 23:49 EDT [facility] Blood CAPILLARY BLOOD / Unknown 06/22/2023 23:48 EDT 06/22/2023 23:49 EDT Tai Azar MD POINT OF CARE TEST ORDERABLES Performing Organization Address City/[facility]/ZIP Co de Phone Number [facility] [address], [place] [phone] * (ABNORMAL) POCT GLUCOSE, INTERFACED (06/22/2023 17:05 EDT) Glucose, POC 214(H) 70 - 100 mg/dL 06/22/2023 17:13 EDT [facility] HN LAB POC COMMENT (GLUCOSE) Test Performed by Nursing Services 06/22/2023 17:13 EDT [facility] Blood CAPILLARY BLOOD / Unknown 06/22/2023 17:05 EDT 06/22/2023 17:13 EDT Tai Azar MD POINT OF CARE TEST ORDERABLES Performing Organization Address City/[facility]/ZIP Co de Phone Number [facility] [address], [place] [phone] * (ABNORMAL) POCT GLUCOSE, INTERFACED (06/22/2023 11:50 EDT) Glucose, POC 234(H) 70 - 100 mg/dL 06/22/2023 11:54 EDT [facility] HN LAB POC COMMENT (GLUCOSE) Test Performed by Nursing Services 06/22/2023 11:54 EDT [facility] Blood CAPILLARY BLOOD / Unknown 06/22/2023 11:50 EDT 06/22/2023 11:54 EDT Tai Azar MD POINT OF CARE TEST ORDERABLES Performing Organization Address City/[facility]/ZIP Co de Phone Number [facility] [address] [place] [address] * (ABNORMAL) POCT GLUCOSE, INTERFACED (06/22/2023 9:12 EDT) Glucose, POC 170(H) 70 - 100 mg/dL 06/22/2023 9:13 EDT [facility] HN LAB POC COMMENT (GLUCOSE) Test Performed by Nursing Services 06/22/2023 9:13 EDT [facility] Blood CAPILLARY BLOOD / Unknown 06/22/2023 9:12 EDT 06/22/2023 9:13 EDT Tai Azar MD POINT OF CARE TEST ORDERABLES Performing Organization Address [facility] Co de Phone Number [facility] [address] [place] [address] * (ABNORMAL) TROPONIN I (06/22/2023 8:04 EDT) Troponin I (ng/mL) 0.348(H) <0.034 ng/mL 06/22/2023 8:49 EDT [facility] Blood VENOUS BLOOD / Unknown Venipuncture / Unknown 06/22/2023 8:04 EDT 06/22/2023 8:11 EDT Narrative [facility] - 06/22/2023 8:49 EDT The results of this assay can be falsely lowered due to the consumption of Biotin. Tai Azar MD CHEMISTRY & BLOOD G ORDERABLES Performing Organization Address City/[facility]/ZIP Co de Phone Number [facility] [address] [place] [address] * (ABNORMAL) POCT GLUCOSE, INTERFACED (06/22/2023 8:03 EDT) Glucose, POC 194(H) 70 - 100 mg/dL 06/22/2023 8:04 EDT [facility] HN LAB POC COMMENT (GLUCOSE) Test Performed by Nursing Services 06/22/2023 8:04 EDT [facility] Blood CAPILLARY BLOOD / Unknown 06/22/2023 8:03 EDT 06/22/2023 8:04 EDT Tai Azar MD POINT OF CARE TEST ORDERABLES [facility] [address] [place] [address] * EKG 12-LEAD (06/22/2023 7:49 EDT) 06/22/2023 7:49 EDT Narrative [facility] EKG - 07/05/2023 11:23 EDT ? The ? Test Date: ?2023-06-22 Pat Name: ? DELLA BROWNING ? Department: ?? [facility] ? Room: ? M316 Gender: ? Female ? 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 [id number] : ?1970 ? Requested By: LUCIUS LUJAN Order Number: [id number] ? Reading : ?? TRUNG ESPITIA MD ? Measurements Intervals ?[place] ? Rate: ? 91 ? P: ?46 IA: ? 161 ?QRS: ?58 QRSD: ? 84 [...] Signed On 07-05-2023 11:23:17 EDT by TRUNG ESPITIA MD. Procedure Note Trung Espitia MD - 07/05/2023 The Test Date: 2023-06-22 Pat Name: DELLA BROWNING Department: [place] [address] Room: [facility] [place] Gender: Female President Practicing Urologist: [id number] : 1970 Requested By: LUCIUS LUJAN Order Number: [id number] Reading MD: TRUNG ESPITIA MD Measurements Intervals [place] Rate: 91 P: 46 IA: 161 QRS: 58 QRSD: 84 T: 92 [...] Tai Azar MD CARDIAC ECG ORDERAB LES Performing Organization Address City/[facility]/ZIP Co de Phone Number [facility] EKG * (ABNORMAL) POCT GLUCOSE, INTERFACED (06/22/2023 7:30 EDT) Pathologist [facility] Glucose, POC 183(H) 70 - 100 mg/dL 06/22/2023 7:31 EDT [facility] LABORATORY SERVICES HN LAB POC COMMENT (GLUCOSE) Test Performed by Nursing Services 06/22/2023 7:31 EDT [facility] Blood CAPILLARY BLOOD / Unknown 06/22/2023 7:30 EDT 06/22/2023 7:31 EDT Tai Azar MD POINT OF CARE TEST ORDERABLES [facility] [address] [place] [phone] * (ABNORMAL) BASIC METABOLIC PANEL (BMP) (06/22/2023 6:04 EDT) Sodium 136 136 - 145 mmol/L 06/22/2023 6:55 EDT [facility] Potassium 4.8 3.5 - 5.0 mmol/L 06/22/2023 6:55 EDT [facility] Chloride 102 96 - 110 mmol/L 06/22/2023 6:55 EDT [facility] CO2 Total 25 22 - 32 mmol/L 06/22/2023 6:55 EDT [facility] Anion Gap 9 5 - 14 mmol/L 06/22/2023 6:55 EDT [facility] Glucose 220(H) 70 - 99 mg/dl 06/22/2023 6:55 EDT [facility] Calcium 8.5 8.5 - 10.5 mg/dL 06/22/2023 6:55 EDT [facility] BUN 15 10 - 26 mg/dL 06/22/2023 6:55 EDT [facility] Creatinine 0.38(L) 0.52 - 1.04 mg/dL 06/22/2023 6:55 EDT [facility] eGFR 120 >60 mL/min/1.73 m2 06/22/2023 6:55 EDT [facility] Blood VENOUS BLOOD / Unknown Venipuncture / Unknown 06/22/2023 6:04 EDT 06/22/2023 6:19 EDT Reza Brito MD CHEMISTRY & BLOOD GA S ORDERABLES [facility] [address], [place] [id number] * MAGNESIUM (06/22/2023 6:04 EDT) Magnesium 1.8 1.7 - 2.8 mg/dL 06/22/2023 6:55 EDT [facility] Blood VENOUS BLOOD / Unknown Venipuncture / Unknown 06/22/2023 6:04 EDT 06/22/2023 6:19 EDT Reza Brito MD CHEMISTRY & BLOOD GA S ORDERABLES [facility] [address], [place] [id number] * PHOSPHORUS (06/22/2023 6:04 EDT) Pathologist [facility] Phosphorus 2.8 2.5 - 4.5 mg/dL 06/22/2023 6:55 [facility] Blood VENOUS BLOOD / Unknown Venipuncture / Unknown 06/22/2023 6:04 EDT 06/22/2023 6:19 EDT Reza Brito MD CHEMISTRY & BLOOD GA S ORDERABLES Performing Organization Address City/State/[facility] Co de Phone Number [facility] [address] [place] [address] * (ABNORMAL) COMPLETE BLOOD COUNT AND DIFFERENTIAL (06/22/2023 6:04 EDT) [facility] WBC 14.26(H) 4.00 - 12.40 K/cmm 06/22/2023 6:36 [facility] RBC 3.14(L) 3.86 - 5.04 M/cmm 06/22/2023 6:36 [facility] Hemoglobin 9.1(L) 11.6 - 15.2 g/dL 06/22/2023 6:36 [facility] HCT 28.1(L) 34.9 - 44.4 % 06/22/2023 6:36 [facility] MCV 90 81 - 98 fL 06/22/2023 6:36 [facility] MCH 29.0 26.7 - 33.3 pg 06/22/2023 6:36 [facility] MCHC 32.4 32.1 - 35.9 g/dL 06/22/2023 6:36 [facility] RDW-CV 15.8(H) <14.7 % 06/22/2023 6:36 [facility] RDW-SD 50.5(H) <50.4 fl 06/22/2023 6:36 [facility] PLT 483(H) 141 - 377 K/cmm 06/22/2023 6:36 [facility] MPV 9.1(L) 9.5 - 12.7 fL 06/22/2023 6:36 [facility] % Neutrophils 83.6 % 06/22/2023 6:36 [facility] % Lymphocytes 8.5 % 06/22/2023 6:36 [facility] % Monocytes 3.9 % 06/22/2023 6:36 [facility] % Eosinophils 0.3 % 06/22/2023 6:36 [facility] % Basophils 0.4 % 06/22/2023 6:36 [facility] % Immature Grans 3.3 % 06/22/19 6:36 [facility] Absolute Neutrophils 11.94(H) 2.20 - 8.85 K/cmm 06/22/2023 6:36 [facility] Absolute Lymphocytes 1.21 1.09 - 3.30 K/cmm 06/22/2023 6:36 [facility] Absolute Monocytes 0.55 0.10 - 0.80 K/cmm 06/22/2023 6:36 [facility] Absolute Eosinophils 0.04 0.03 - 0.61 K/cmm 06/22/2023 6:36 [facility] ABS Basophils 0.05 0.01 - 0.11 K/cmm 06/22/2023 6:36 [facility] Absolute Immature Grans 0.47(H) 0.00 - 0.06 K/cmm 06/22/2023 6:36 [facility] Type of Differential: Auto 06/22/2023 6:36 [facility] Blood VENOUS BLOOD / Unknown Venipuncture / Unknown 06/22/2023 6:04 EDT 06/22/2023 6:19 EDT Ayden Jennings PACKAGES & DNA PROBE ORDERABLES [facility] [address] [place] [address] * (ABNORMAL) POCT GLUCOSE, INTERFACED (06/22/2023 5:36 EDT) Glucose, POC 225(H) 70 - 100 mg/dL 06/22/2023 5:37 EDT [facility] HN LAB POC COMMENT (GLUCOSE) Test Performed by Nursing Services 06/22/2023 5:37 EDT [facility] Blood CAPILLARY BLOOD / Unknown 06/22/2023 5:36 EDT 06/22/2023 5:37 EDT Tai Azar MD POINT OF CARE TEST ORDERABLES Performing Organization Address City/[facility]/ZIP Co de Phone Number [facility] [address] [place] [address] * (ABNORMAL) POCT GLUCOSE, INTERFACED (06/22/2023 0:20 EDT) Glucose, POC 206(H) 70 - 100 mg/dL 06/22/2023 0:23 EDT [facility] HN LAB POC COMMENT (GLUCOSE) Test Performed by Nursing Services 06/22/2023 0:23 EDT [facility] Blood CAPILLARY BLOOD / Unknown 06/22/2023 0:20 EDT 06/22/2023 0:23 EDT Tai Azar MD POINT OF CARE TEST ORDERABLES [facility] [address] [place] [address] * (ABNORMAL) POCT GLUCOSE, INTERFACED (06/21/2023 16:42 EDT) Glucose, POC 170(H) 70 - 100 mg/dL 06/21/2023 16:53 EDT [facility] HN LAB POC COMMENT (GLUCOSE) Test Performed by Nursing Services 06/21/2023 16:53 EDT [facility] Blood CAPILLARY BLOOD / Unknown 06/21/2023 16:42 EDT 06/21/2023 16:53 EDT Tai Azar MD POINT OF CARE TEST ORDERABLES [facility] [address] [place] [address] * (ABNORMAL) POCT GLUCOSE, INTERFACED (06/21/2023 11:30 EDT) Glucose, POC 194(H) 70 - 100 mg/dL 06/21/2023 11:32 EDT [facility] HN LAB POC COMMENT (GLUCOSE) Test Performed by Nursing Services 06/21/2023 11:32 EDT [facility] Blood CAPILLARY BLOOD / Unknown 06/21/2023 11:30 EDT 06/21/2023 11:31 EDT Tai Azar MD POINT OF CARE TEST ORDERABLES Performing Organization Address City/[facility]/ZIP Co de Phone Number [facility] [address] [place] [address] * (ABNORMAL) POCT GLUCOSE, INTERFACED (06/21/2023 9:41 EDT) Glucose, POC 184(H) 70 - 100 mg/dL 06/21/2023 9:43 EDT [facility] HN LAB POC COMMENT (GLUCOSE) Test Performed by Nursing Services 06/21/2023 9:43 EDT [facility] Blood CAPILLARY BLOOD / Unknown 06/21/2023 9:41 EDT 06/21/2023 9:43 EDT Tai Azar MD POINT OF CARE TEST ORDERABLES [facility] [address] [place] [address] * (ABNORMAL) POCT GLUCOSE, INTERFACED (06/21/2023 5:09 EDT) Glucose, POC 163(H) 70 - 100 mg/dL 06/21/2023 5:31 EDT [facility] HN LAB POC COMMENT (GLUCOSE) Test Performed by Nursing Services 06/21/2023 5:31 [facility] Blood CAPILLARY BLOOD / Unknown 06/21/2023 5:09 EDT 06/21/2023 5:31 EDT Reza Brito MD POINT OF CARE TEST O RDERABLES [facility] [address] [place] [address] * (ABNORMAL) DIFFERENTIAL, AUTOMATED MANUAL (06/21/2023 5:07 EDT) [facility] % Neutrophils 83.3 Not Indicated % 06/21/2023 7:32 [facility] % Banded Neutrophils 0.9 Not Indicated % 06/21/2023 7:32 [facility] % Lymphocytes 7.9 Not Indicated % 06/21/2023 7:32 [facility] % Atypical Lymphocytes 0.9 Not Indicated % 06/21/2023 7:32 [facility] % Monocytes 3.5 Not Indicated % 06/21/2023 7:32 [facility] % Eosinophils 0.9 Not Indicated % 06/21/2023 7:32 [facility] % Metamyelocytes 1.7 Not Indicated % 06/21/2023 7:32 [facility] % Myelocytes 0.9 Not Indicated % 06/21/2023 7:32 [facility] Absolute Neutrophils 12.91(H) 2.20 - 8.85 K/cmm 06/21/2023 7:32 [facility] Absolute Bands 0.14 K/cmm 06/21/2023 7:32 [facility] Absolute Lymphocytes 1.22 1.09 - 3.30 K/cmm 06/21/2023 7:32 [facility] Absolute Atypical Lymphocytes 0.14 K/cmm 06/21/2023 7:32 [facility] Absolute Monocytes 0.54 0.10 - 0.80 K/cmm 06/21/2023 7:32 [facility] Absolute Eosinophils 0.14 0.03 - 0.61 K/cmm 06/21/2023 7:32 [facility] Absolute Metamyelocytes 0.26(H) <=0.00 K/cmm 06/21/2023 7:32 [facility] Absolute Myelocytes 0.14(H) <=0.00 K/cmm 06/21/2023 7:32 [facility] Type of Differential: Manual 06/21/2023 7:32 [facility] Blood VENOUS BLOOD / Unknown Venipuncture / Unknown 06/21/2023 5:07 EDT 06/21/2023 5:11 EDT Ayden Jnenings HEMATOLOGY & PF4 ORD ERABLES [facility] [address] [place] [address] * (ABNORMAL) BASIC METABOLIC PANEL (BMP) (06/21/2023 5:07 EDT) Sodium 139 136 - 145 mmol/L 06/21/2023 5:49 [facility] Potassium 5.2(H) 3.5 - 5.0 mmol/L 06/21/2023 5:49 [facility] Chloride 106 96 - 110 mmol/L 06/21/2023 5:49 [facility] CO2 Total 24 22 - 32 mmol/L 06/21/2023 5:49 [facility] Anion Gap 9 5 - 14 mmol/L 06/21/2023 5:49 [facility] Glucose 161(H) 70 - 99 mg/dl 06/21/2023 5:49 [facility] Calcium 8.4(L) 8.5 - 10.5 mg/dL 06/21/2023 5:49 EDT [facility] BUN 20 10 - 26 mg/dL 06/21/2023 5:49 EDT [facility] Creatinine 0.32(L) 0.52 - 1.04 mg/dL 06/21/2023 5:49 EDT [facility] eGFR 126 >60 mL/min/1.73 m2 06/21/2023 5:49 EDT [facility] Blood VENOUS BLOOD / Unknown Venipuncture / Unknown 06/21/2023 5:07 EDT 06/21/2023 5:11 EDT Reza Brito MD CHEMISTRY & BLOOD GA S ORDERABLES [facility] [address] [place] [address] * MAGNESIUM (06/21/2023 5:07 EDT) Magnesium 2.1 1.7 - 2.8 mg/dL 06/21/2023 5:49 EDT [facility] Blood VENOUS BLOOD / Unknown Venipuncture / Unknown 06/21/2023 5:07 EDT 06/21/2023 5:11 EDT Reza Brito MD CHEMISTRY & BLOOD GA S ORDERABLES Performing Organization Address City/[facility]/ZIP Co de Phone Number [facility] [address] [place] [address] * PHOSPHORUS (06/21/2023 5:07 EDT) Phosphorus 2.5 2.5 - 4.5 mg/dL 06/21/2023 5:49 EDT [facility] Blood VENOUS BLOOD / Unknown Venipuncture / Unknown 06/21/2023 5:07 EDT 06/21/2023 5:11 EDT Reza Brito MD CHEMISTRY & BLOOD GA S ORDERABLES [facility] [address] [place] [address] * (ABNORMAL) COMPLETE BLOOD COUNT AND DIFFERENTIAL (06/21/2023 5:07 EDT) WBC 15.50(H) 4.00 - 12.40 K/cmm 06/21/2023 5:25 EDT [facility] RBC 3.08(L) 3.86 - 5.04 M/cmm 06/21/2023 5:25 EDT [facility] Hemoglobin 9.4(L) 11.6 - 15.2 g/dL 06/21/2023 5:25 EDT [facility] HCT 27.7(L) 34.9 - 44.4 % 06/21/2023 5:25 EDT [facility] MCV 90 81 - 98 fL 06/21/2023 5:25 EDT [facility] MCH 30.5 26.7 - 33.3 pg 06/21/2023 5:25 EDT [facility] MCHC 33.9 32.1 - 35.9 g/dL 06/21/2023 5:25 T [facility] RDW-CV 16.3(H) <14.7 % 06/21/2023 5:25 EDT [facility] RDW-SD 53.0(H) <50.4 fl 06/21/2023 5:25 EDT [facility] PLT 475(H) 141 - 377 K/cmm 06/21/2023 5:25 EDT [facility] MPV 9.2(L) 9.5 - 12.7 fL 06/21/2023 5:25 EDT [facility] Blood VENOUS BLOOD / Unknown Venipuncture / Unknown 06/21/2023 5:07 EDT 06/21/2023 5:11 EDT Ayden Jennings PACKAGES & DNA PROBE ORDERABLES [facility] [address], [place] [id number] * (ABNORMAL) POCT GLUCOSE, INTERFACED (06/20/2023 23:55 EDT) Glucose, POC 198(H) 70 - 100 mg/dL 06/20/2023 23:59 EDT [facility] HN LAB POC COMMENT (GLUCOSE) Test Performed by Nursing Services 06/20/2023 23:59 EDT [facility] Blood CAPILLARY BLOOD / Unknown 06/20/2023 23:55 EDT 06/20/2023 23:59 EDT Reza Brito MD POINT OF CARE TEST O NANCY Performing Organization Address [facility] Co de Phone Number [facility] [address], [place] [id number] * (ABNORMAL) POCT GLUCOSE, INTERFACED (06/20/2023 18:51 EDT) Glucose, POC 214(H) 70 - 100 mg/dL 06/20/2023 18:52 EDT [facility] HN LAB POC COMMENT (GLUCOSE) Test Performed by Nursing Services 06/20/2023 18:52 EDT [facility] Blood CAPILLARY BLOOD / Unknown 06/20/2023 18:51 EDT 06/20/2023 18:52 EDT Reza Brito MD POINT OF CARE TEST O NANCY Performing Organization Address [facility]/ZIP Co de Phone Number [facility] [address], [place] [id number] * XR CHEST PORTABLE 1 VIEW (06/20/2023 15:03 EDT) Anatomical Region Laterality Modality Computed Radiogr aphy 06/20/2023 15:0 9 EDT Impressions 06/20/2023 15:09 EDT Findings of improving left lower lobe atelectasis and persistent interstitial pulmonary edema. [id number] Narrative 06/20/2023 15:09 EDT XR CHEST PORTABLE [...] lower lobe atelectasis and persistentinterstitial pulmonary edema. [id number] Reza Brito MD IMG DIAGNOSTIC IMAGI NG ORDERABLES * [...] view is needed, formal films are recommended. [id number] Narrative 06/20/2023 14:35 EDT XR FEEDING TUBE PLACEMENT ??06/20/2023 2:05 PM Signs and Symptoms/Comments: NGT placement verification; Comparison: None. Procedure Note Lilli Morales MD - 06/20/2023 XR FEEDING TUBE [...] view is needed, formal films are recommended. [id number] Reza Brito MD IMG DIAGNOSTIC IMAGI NG ORDERABLES * (ABNORMAL) POCT GLUCOSE, INTERFACED (06/20/2023 12:23 EDT) [facility] Glucose, POC 185(H) 70 - 100 mg/dL 06/20/2023 12:24 EDT [facility] HN LAB POC COMMENT (GLUCOSE) Test Performed by Nursing Services 06/20/2023 12:24 EDT [facility] Blood CAPILLARY BLOOD / Unknown 06/20/2023 12:23 EDT 06/20/2023 12:24 EDT Reza Brito MD POINT OF CARE TEST O RDERABLES [facility] [address] [place] [address] * ECG REPORT - SCANNED (06/20/2023 9:33 EDT) 06/20/2023 9:33 EDT Scan 2 Nursing Coordinator PROCEDURE/MINOR VI GICAL ORDERABLES * (ABNORMAL) DIFFERENTIAL, AUTOMATED MANUAL (06/20/2023 5:01 EDT) % Neutrophils 89.5 Not Indicated % 06/20/2023 5:54 [facility] % Banded Neutrophils 1.7 Not Indicated % 06/20/2023 5:54 [facility] % Lymphocytes 5.3 Not Indicated % 06/20/2023 5:54 [facility] % Monocytes 2.6 Not Indicated % 06/20/2023 5:54 [facility] % Metamyelocytes 0.9 Not Indicated % 06/20/2023 5:54 [facility] Stomatocytes 2+ 06/20/2023 5:54 [facility] Basophilic Stippling Present in <2% of RBCs 06/20/2023 5:54 [facility] Absolute Neutrophils 17.43(H) 2.20 - 8.85 K/cmm 06/20/2023 5:54 EDT [facility] Absolute Bands 0.33 K/cmm 06/20/2023 5:54 [facility] Absolute Lymphocytes 1.03(L) 1.09 - 3.30 K/cmm 06/20/2023 5:54 [facility] Absolute Monocytes 0.51 0.10 - 0.80 K/cmm 06/20/2023 5:54 [facility] Absolute Metamyelocytes 0.18(H) <=0.00 K/cmm 06/20/2023 5:54 [facility] Type of Differential: Manual 06/20/2023 5:54 [facility] Blood VENOUS BLOOD / Unknown Venipuncture / Unknown 06/20/2023 5:01 EDT 06/20/2023 5:06 EDT Ayden Jennings HEMATOLOGY & PF4 ORD ERABLES [facility] [address] [place] [address] * (ABNORMAL) BASIC METABOLIC PANEL (BMP) (06/20/2023 5:01 EDT) Sodium 139 136 - 145 mmol/L 06/20/2023 5:27 EDT [facility] Potassium 5.3(H) 3.5 - 5.0 mmol/L 06/20/2023 5:27 [facility] Chloride 108 96 - 110 mmol/L 06/20/2023 5:27 [facility] CO2 Total 23 22 - 32 mmol/L 06/20/2023 5:27 [facility] Anion Gap 8 5 - 14 mmol/L 06/20/2023 5:27 [facility] Glucose 202(H) 70 - 99 mg/dl 06/20/2023 5:27 [facility] Calcium 8.2(L) 8.5 - 10.5 mg/dL 06/20/2023 5:27 [facility] BUN 27(H) 10 - 26 mg/dL 06/20/2023 5:27 [facility] Creatinine 0.54 0.52 - 1.04 mg/dL 06/20/2023 5:27 [facility] eGFR 111 >60 mL/min/1.73 m2 06/20/2023 5:27 [facility] Blood VENOUS BLOOD / Unknown Venipuncture / Unknown 06/20/2023 5:01 EDT 06/20/2023 5:06 EDT Reza Brito MD CHEMISTRY & BLOOD GA S ORDERABLES [facility] [address], [place] [id number] * MAGNESIUM (06/20/2023 5:01 EDT) Magnesium 2.1 1.7 - 2.8 mg/dL 06/20/2023 5:27 [facility] Blood VENOUS BLOOD / Unknown Venipuncture / Unknown 06/20/2023 5:01 EDT 06/20/2023 5:06 EDT Reza Brito MD CHEMISTRY & BLOOD GA S ORDERABLES Performing Organization Address City/[facility]/ZIP Co de Phone Number [facility] [address] [place] [address] * PHOSPHORUS (06/20/2023 5:01 EDT) Phosphorus 3.5 2.5 - 4.5 mg/dL 06/20/2023 5:27 EDT [facility] Blood VENOUS BLOOD / Unknown Venipuncture / Unknown 06/20/2023 5:01 EDT 06/20/2023 5:06 EDT Reza Brito MD CHEMISTRY & BLOOD GA S ORDERABLES Performing Organization Address [facility]/ZIP Co de Phone Number [facility] [address], [place] [address] * (ABNORMAL) COMPLETE BLOOD COUNT AND DIFFERENTIAL (06/20/2023 5:01 EDT) WBC 19.47(H) 4.00 - 12.40 K/cmm 06/20/2023 5:19 [facility] RBC 3.23(L) 3.86 - 5.04 M/cmm 06/20/2023 5:19 [facility] Hemoglobin 9.5(L) 11.6 - 15.2 g/dL 06/20/2023 5:19 [facility] HCT 28.8(L) 34.9 - 44.4 % 06/20/2023 5:19 [facility] MCV 89 81 - 98 fL 06/20/2023 5:19 [facility] MCH 29.4 26.7 - 33.3 pg 06/20/2023 5:19 [facility] MCHC 33.0 32.1 - 35.9 g/dL 06/20/2023 5:19 [facility] RDW-CV 16.5(H) <14.7 % 06/20/2023 5:19 EDT [facility] RDW-SD 53.1(H) <50.4 fl 06/20/2023 5:19 EDT [facility] PLT 455(H) 141 - 377 K/cmm 06/20/2023 5:19 EDT [facility] MPV 9.3(L) 9.5 - 12.7 fL 06/20/2023 5:19 EDT [facility] Blood VENOUS BLOOD / Unknown Venipuncture / Unknown 06/20/2023 5:01 EDT 06/20/2023 5:06 EDT Ayden Jennings PACKAGES & DNA PROBE ORDERABLES Performing Organization Address [facility]/ZIP Co de Phone Number [facility] [address] [place] [address] * (ABNORMAL) POCT GLUCOSE, INTERFACED (06/20/2023 5:00 EDT) Glucose, POC 208(H) 70 - 100 mg/dL 06/20/2023 5:04 EDT [facility] HN LAB POC COMMENT (GLUCOSE) Test Performed by Nursing Services 06/20/2023 5:04 EDT [facility] Blood CAPILLARY BLOOD / Unknown 06/20/2023 5:00 EDT 06/20/2023 5:04 EDT Reza Brito MD POINT OF CARE TEST O RDERABLES Performing Organization Address City/[facility]/ZIP Co de Phone Number [facility] [address] [place] [address] * (ABNORMAL) POCT GLUCOSE, INTERFACED (06/20/2023 2:03 EDT) Glucose, POC 215(H) 70 - 100 mg/dL 06/20/2023 2:06 EDT [facility] HN LAB POC COMMENT (GLUCOSE) Test Performed by Nursing Services 06/20/2023 2:06 EDT [facility] Blood CAPILLARY BLOOD / Unknown 06/20/2023 2:03 EDT 06/20/2023 2:06 EDT Reza Brito MD POINT OF CARE TEST O LORENAERAMICHAEL Performing Organization Address [facility]/ZIP Co de Phone Number [facility] [address], [place] [phone] * (ABNORMAL) POCT GLUCOSE, INTERFACED (06/19/2023 18:06 EDT) Glucose, POC 135(H) 70 - 100 mg/dL 06/19/2023 18:07 EDT [facility] HN LAB POC COMMENT (GLUCOSE) Test Performed by Nursing Services 06/19/2023 18:07 EDT [facility] Blood CAPILLARY BLOOD / Unknown 06/19/2023 18:06 EDT 06/19/2023 18:07 EDT Reza Brito MD POINT OF CARE TEST O NANCY Performing Organization Address [facility]/ZIP Co de Phone Number [facility] [address], [place] [id number] * (ABNORMAL) BASIC METABOLIC PANEL (BMP) (06/19/2023 12:28 EDT) Sodium 137 136 - 145 mmol/L 06/19/2023 13:09 T [facility] Potassium 4.9 3.5 - 5.0 mmol/L 06/19/2023 13:[address] ST[address] [facility] Chloride 107 96 - 110 mmol/L 06/19/2023 13:09 [facility] CO2 Total 18(L) 22 - 32 mmol/L 06/19/2023 13:09 [facility] Anion Gap 12 5 - 14 mmol/L 06/19/2023 13:09 [facility] Glucose 122(H) 70 - 99 mg/dl 06/19/2023 13:09 [facility] Calcium 8.3(L) 8.5 - 10.5 mg/dL 06/19/2023 13:09 EDT [facility] BUN 27(H) 10 - 26 mg/dL 06/19/2023 13:09 EDT [facility] Creatinine 0.45(L) 0.52 - 1.04 mg/dL 06/19/2023 13:09 EDT [facility] eGFR 116 >60 mL/min/1.73 m2 06/19/2023 13:09 EDT [facility] Blood VENOUS BLOOD / Unknown Venipuncture / Unknown 06/19/2023 12:28 EDT 06/19/2023 12:34 EDT Ayden Jennings CHEMISTRY & BLOOD GA S ORDERABLES Performing Organization Address [facility]/ZIP Co de Phone Number [facility] [address] [place] [address] * (ABNORMAL) POCT GLUCOSE, INTERFACED (06/19/2023 11:51 EDT) Glucose, POC 121(H) 70 - 100 mg/dL 06/19/2023 11:53 EDT [facility] HN LAB POC COMMENT (GLUCOSE) Test Performed by Nursing Services 06/19/2023 11:53 EDT [facility] Blood CAPILLARY BLOOD / Unknown 06/19/2023 11:51 EDT 06/19/2023 11:53 EDT Reza Brito MD POINT OF CARE TEST O RDERABLES Performing Organization Address City/[facility]/ZIP Co de Phone Number [facility] [address] [place] [address] * TRANSFUSION RECORD - SCANNED (06/19/2023 11:42 EDT) 06/19/2023 11:4 2 EDT Scan 2 Nursing Coordinator LAB INFO SERVICE AN D SUPPORT & PHONE RESULT * (ABNORMAL) POCT GLUCOSE, INTERFACED (06/19/2023 10:12 EDT) Glucose, POC 112(H) 70 - 100 mg/dL 06/19/2023 10:14 EDT [facility] HN LAB POC COMMENT (GLUCOSE) Test Performed by Nursing Services 06/19/2023 10:14 EDT [facility] Blood CAPILLARY BLOOD / Unknown 06/19/2023 10:12 EDT 06/19/2023 10:14 EDT Ayden Jane Jennings POINT OF CARE TEST O RDERAMICHAEL [facility] [address] [place] [address] * TRANSTHORACIC ECHO (TTE) COMPLETE W/DOPPLER W/CF NO CONTRAST (06/19/2023 9:46 EDT) Pathologist [facility] Mitral deceleration time 141 ms [facility] POINT [...] color Doppler.The study was interpreted by [facility]. Pertinent images and digital data are archived for permanent storage and are available for subsequent review. Scanning was performed from the apical, parasternal, subcostal and suprasternal acoustic windows. Overall the study quality was adequate. The study was difficult due to patient clinical status and body habitus. Images were obtained using cardiac ultrasound machine EPIQ #21. Reza Brito MD CARDIAC ECHO ORDERAB LES * EKG 12-LEAD (06/19/2023 9:07 EDT) 06/19/2023 9:07 EDT [facility] EKG - 06/23/2023 15:27 EDT ? The ? Test Date: ?2023-06-19 Pat Name: ? DELLA BROWNING ? Department: ?? [facility] ? Room: ? M316 Gender: ? Female ? 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 PIANO PROFESSOR : ?1970 ? Requested By: YI AYDEN Lara Order Number: [id number] ? Alicia MD: ?? ROBB EDEN MD ? Measurements Intervals ?[place] ? Rate: ? 100 ?P: ?39 IA: ? 178 ?QRS: ?19 QRSD: ? 72 [...] Signed On 06-23-2023 15:27:18 EDT by ROBB EDEN MD. Procedure Note Robb Eden MD - 06/23/2023 The Test Date: 2023-06-19 Pat Name: DELLA BROWNING Department: [place] [address] Room: [facility] Gender: Female President Practicing Urologist: ANAND : 1970 Requested By: YI Lara Order Number: [id number] Reading MD: RBOB EDEN MD Measurements Intervals [place] Rate: 100 P: 39 IA: 178 QRS: 19 QRSD: 72 T: 54 QT: 325 QTc: 419 Interpretive Statements SINUS TACHYCARDIA LOW QRS VOLTAGE IN PRECORDIAL LEADS ANTEROSEPTAL MYOCARDIAL INFARCTION , OF INDETERMINATE AGE Compared to ECG 06/19/2023 02:03:28 Myocardial infarct finding still present I reviewed the tracing and have either agreed or edited the findings inthis report. Electronically Signed On 06-23-2023 15:27:18 EDT by ROBB FIGUEREDO. Ayden Jennings CARDIAC ECG ORDERABL ES [facility] EKG * (ABNORMAL) POCT GLUCOSE, INTERFACED (06/19/2023 8:06 EDT) Glucose, POC 159(H) 70 - 100 mg/dL 06/19/2023 8:07 EDT [facility] HN LAB POC COMMENT (GLUCOSE) Test Performed by Nursing Services 06/19/2023 8:07 EDT [facility] Blood CAPILLARY BLOOD / Unknown 06/19/2023 8:06 EDT 06/19/2023 8:07 EDT Ayden Jennings POINT OF CARE TEST O RDERABLES [facility] [address] [place] [address] * (ABNORMAL) DIFFERENTIAL, AUTOMATED MANUAL (06/19/2023 5:04 EDT) % Neutrophils 87.1 Not Indicated % 06/19/2023 6:00 EDT [facility] % Lymphocytes 6.0 Not Indicated % 06/19/2023 6:00 EDT [facility] % Monocytes 2.6 Not Indicated % 06/19/2023 6:00 EDT [facility] % Basophils 0.9 Not Indicated % 06/19/2023 6:00 EDT [facility] % Metamyelocytes 1.7 Not Indicated % 06/19/2023 6:00 EDT [facility] % Myelocytes 1.7 Not Indicated % 06/19/2023 6:00 T [facility] Absolute Neutrophils 22.47(H) 2.20 - 8.85 K/cmm 06/19/2023 6:00 EDT [facility] Absolute Lymphocytes 1.55 1.09 - 3.30 K/cmm 06/19/2023 6:00 EDT [facility] Absolute Monocytes 0.67 0.10 - 0.80 K/cmm 06/19/2023 6:00 EDT [facility] ABS Basophils 0.23(H) 0.01 - 0.11 K/cmm 06/19/2023 6:00 T [facility] Absolute Metamyelocytes 0.44(H) <=0.00 K/cmm 06/19/2023 6:00 EDT [facility] Absolute Myelocytes 0.44(H) <=0.00 K/cmm 06/19/2023 6:00 T [facility] Type of Differential: Manual 06/19/2023 6:00 [facility] Blood VENOUS BLOOD / Unknown Venipuncture / Unknown 06/19/2023 5:04 EDT 06/19/2023 5:13 EDT Ayden Jennings HEMATOLOGY & PF4 ORD ERABLES [facility] [address] [place] [address] * (ABNORMAL) COMPLETE BLOOD COUNT AND DIFFERENTIAL (06/19/2023 5:04 EDT) WBC 25.80(H) 4.00 - 12.40 K/cmm 06/19/2023 5:28 EDT [facility] RBC 3.49(L) 3.86 - 5.04 M/cmm 06/19/2023 5:28 [facility] Hemoglobin 10.5(L) 11.6 - 15.2 g/dL 06/19/2023 5:28 [facility] HCT 31.0(L) 34.9 - 44.4 % 06/19/2023 5:28 [facility] MCV 89 81 - 98 fL 06/19/2023 5:28 [facility] MCH 30.1 26.7 - 33.3 pg 06/19/2023 5:28 [facility] MCHC 33.9 32.1 - 35.9 g/dL 06/19/2023 5:28 [facility] RDW-CV 16.8(H) <14.7 % 06/19/2023 5:28 [facility] RDW-SD 53.4(H) <50.4 fl 06/19/2023 5:28 [facility] PLT 521(H) 141 - 377 K/cmm 06/19/2023 5:28 [facility] MPV 9.3(L) 9.5 - 12.7 fL 06/19/2023 5:28 [facility] Blood VENOUS BLOOD / Unknown Venipuncture / Unknown 06/19/2023 5:04 EDT 06/19/2023 5:13 EDT Ayden Jennings PACKAGES & DNA PROBE ORDERABLES [facility] [address], [place] [id number] * (ABNORMAL) BASIC METABOLIC PANEL (BMP) (06/19/2023 5:03 EDT) Sodium 136 136 - 145 mmol/L 06/19/2023 5:49 EDT [facility] Potassium 5.6(H) 3.5 - 5.0 mmol/L 06/19/2023 5:49 EDT [facility] Chloride 107 96 - 110 mmol/L 06/19/2023 5:49 EDT [facility] CO2 Total 20(L) 22 - 32 mmol/L 06/19/2023 5:49 T [facility] Anion Gap 9 5 - 14 mmol/L 06/19/2023 5:49 T [facility] Glucose 180(H) 70 - 99 mg/dl 06/19/2023 5:49 [facility] Calcium 8.4(L) 8.5 - 10.5 mg/dL 06/19/2023 5[facility] BUN 31(H) 10 - 26 mg/dL 06/19/2023 5:49 [facility] Creatinine 0.52 0.52 - 1.04 mg/dL 06/19/2023 5:49 [facility] eGFR 112 >60 mL/min/1.73 m2 06/19/2023 5:49 T [facility] Blood VENOUS BLOOD / Unknown Venipuncture / Unknown 06/19/2023 5:03 EDT 06/19/2023 5:13 EDT Reza Brito MD CHEMISTRY & BLOOD GA S ORDERABLES [facility] [address], [place] [id number] * MAGNESIUM (06/19/2023 5:03 EDT) Magnesium 2.1 1.7 - 2.8 mg/dL 06/19/2023 5:49 EDT [facility] Blood VENOUS BLOOD / Unknown Venipuncture / Unknown 06/19/2023 5:03 EDT 06/19/2023 5:13 EDT Reza Brito MD CHEMISTRY & BLOOD GA S ORDERABLES Performing Organization Address [facility] Co de Phone Number [facility] [address] [place] [address] * (ABNORMAL) PHOSPHORUS (06/19/2023 5:03 EDT) Phosphorus 4.8(H) 2.5 - 4.5 mg/dL 06/19/2023 5:49 EDT [facility] Blood VENOUS BLOOD / Unknown Venipuncture / Unknown 06/19/2023 5:03 EDT 06/19/2023 5:13 EDT Reza Brito MD CHEMISTRY & BLOOD GA S ORDERABLES Performing Organization Address [facility] de Phone Number [facility] [address] [place] [address] * (ABNORMAL) POCT BLOOD GAS, EG6 I-STAT (06/19/2023 2:58 EDT) pH, Arterial, i-STAT 7.26(L) 7.35 - 7.45 06/19/2023 3:15 T [facility] PCO2, Arterial, i-STAT 46(H) 35 - 45 mmHg 06/19/2023 3:15 EDT [facility] pO2, Arterial, i-STAT 162(H) 80 - 105 mmHg 06/19/2023 3:15 T [facility] TCO2, Arterial, i-STAT 22 22 - 26 mmol/L 06/19/2023 3:15 [facility] O2 Saturation, Arterial, i-STAT 99(H) 95 - 98 % 06/19/2023 3:15 T [facility] Base Excess(+) / Deficit(-), Arterial, i-STAT -6(L) -2 - 3 mmol/L 06/19/2023 3:15 EDT [facility] Blood ARTERIAL BLOOD / Unknown 06/19/2023 2:58 EDT 06/19/2023 3:14 EDT Narrative [facility] - 06/19/2023 3:15 EDT Test Performed by Respiratory For arterial collection, the Laboratory recommends that the Modified Ashutosh test be performed to determine that collateral circulation is present from the ulnar artery in the event that thrombosis of the radial artery should occur. Performance of the Modified Ashutosh test should be documented in the patients' chart Paulette Hoover MD POINT OF CARE T EST ORDERABLES [facility] [address] [place] [address] * EKG 12-LEAD (06/19/2023 2:03 EDT) 06/19/2023 2:03 EDT Narrative [facility] EKG - 06/23/2023 15:24 EDT ? The ? Test Date: ?2023-06-19 Pat Name: ? DELLA BROWNING ? Department: ?? [address] ? Room: ? M316 Gender: ? Female ? 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 [id number] : ?1970 ? Requested By: DIANNA CRAFT Order Number: [id number] ? Reading MD: ?? ROBB EDEN MD ? Measurements Intervals ?[place] ? Rate: ? 116 ?P: ?44 IA: ? 180 ?QRS: ?-6 QRSD: ? 69 [...] Signed On 06-23-2023 15:24:34 EDT by ROBB EDEN MD. Procedure Note Robb Eden MD - 06/23/2023 The Test Date: 2023-06-19 Pat Name: DELLA BROWNING Department: [facility] Room: [facility] Gender: Female President Practicing Urologist: [id number] : 1970 Requested By: DIANNA CRAFT Order Number: [id number] Reading MD: ROBB EDEN MD Measurements Intervals [place] Rate: 116 P: 44 IA: 180 QRS: -6 QRSD: 69 T: 22 [...] 06-23-2023 15:24:34 EDT by ROBB FIGUEREDO. Ángel Bustamante MD CARDIAC ECG ORDERABL ES Performing Organization Address City/[facility]/ZIP Co de Phone Number [facility] EKG * (ABNORMAL) POCT GLUCOSE, INTERFACED (06/19/2023 1:20 EDT) [facility] Glucose, POC 150(H) 70 - 100 mg/dL 06/19/2023 1:21 EDT [facility] HN LAB POC COMMENT (GLUCOSE) Test Performed by Nursing Services 06/19/2023 1:21 EDT [facility] Blood CAPILLARY BLOOD / Unknown 06/19/2023 1:20 EDT 06/19/2023 1:21 EDT Tai Azar MD POINT OF CARE TEST ORDERABLES [facility] [address] [place] [address] * (ABNORMAL) POCT GLUCOSE, INTERFACED (06/18/2023 17:20 EDT) Glucose, POC 145(H) 70 - 100 mg/dL 06/18/2023 17:21 EDT [facility] HN LAB POC COMMENT (GLUCOSE) Test Performed by Nursing Services 06/18/2023 17:21 EDT [facility] Blood CAPILLARY BLOOD / Unknown 06/18/2023 17:20 EDT 06/18/2023 17:21 EDT Tai Azar MD POINT OF CARE TEST ORDERABLES [facility] [address] [place] [address] * XR FEEDING TUBE PLACEMENT (06/18/2023 15:42 [...] above interpretation and agree with the findings. [id number] Narrative 06/18/2023 16:08 EDT XR FEEDING TUBE PLACEMENT ??06/18/2023 3:36 PM Signs and Symptoms/Comments: KO placed; Comparison: Feeding tube radiograph 06/15/2023, same day chest radiograph Procedure Note Lilli Morales MD - 06/18/2023 XR FEEDING TUBE [...] the above interpretation andagree with the findings. [id number] Rui Gomez MD IMG DIAGNOSTIC IM AGING ORDERABLES * XR CHEST PORTABLE LINE PLACEMENT (06/18/2023 15:41 EDT) Anatomical Region Laterality Modality Chest Computed Radiogr aphy 06/18/2023 15:4 8 EDT Impressions 06/18/2023 15:48 EDT Right internal jugular temporary pacemaker wire lead in right ventricle. Dense left lower lobe atelectasis. Probable bilateral pleural effusions. [id number] Narrative 06/18/2023 15:48 EDT XR CHEST PORTABLE [...] lower lobe atelectasis. Probable bilateral pleural effusions. [id number] Ángel Bustamante MD IMG DIAGNOSTIC IMAGI NG ORDERABLES * IA INSJ NON-TUNNELED CENTRAL VENOUS CATH AGE 5 YR/>, HC - INSJ NON-TUNNELED CENTRAL VENOUS CATH AGE 5 YR/> (06/18/2023 13:30 EDT) [facility]ative [facility] 06/18/2023 13:30 EDT Ángel Bustamante MD ? 06/19/2023 ??3:22 Insert Central Line (Non-Tunneled) Date/Time: 06/18/2023 13:30 Performed by: Ángel Bustamante MD Authorized by: Moo Monique MD ??Consent: The procedure was performed in an emergent situation. Verbal consent not obtained. Written consent not obtained. Patient identity confirmed: arm band Time out: Immediately prior to procedure a time out was called to verify the correct patient, procedure, equipment, business support assistant and site/side marked as required. Indications: Pacer [...] than the patient's intrinsic rate of 80. Moo Monique MD PROCEDURE/MINOR VI GICAL ORDERABLES [facility] POINT OF CARE * (ABNORMAL) POCT GLUCOSE, INTERFACED (06/18/2023 11:53 EDT) Glucose, POC 127(H) 70 - 100 mg/dL 06/18/2023 11:54 EDT [facility] HN LAB POC COMMENT (GLUCOSE) Test Performed by Nursing Services 06/18/2023 11:54 EDT [facility] Blood CAPILLARY BLOOD / Unknown 06/18/2023 11:53 EDT 06/18/2023 11:54 EDT Reza Brito MD POINT OF CARE TEST O RDERABLES Performing Organization Address City/[facility]/ZIP Co de Phone Number [facility] [address] [place] [address] * (ABNORMAL) POCT BLOOD GAS, EG6 I-STAT (06/18/2023 9:19 EDT) pH, Venous, i-STAT 7.28(L) 7.31 - 7.41 06/18/2023 9:27 [facility] pCO2, Venous, i-STAT 43 41 - 51 mmHg 06/18/2023 9:27 [facility] pO2, Venous, i-STAT 64(H) 30 - 50 mmHg 06/18/2023 9:27 [facility] TCO2, Venous, i-STAT 22 22 - 28 mmol/L 06/18/2023 9:27 [facility] O2 Saturation, Venous, i-STAT 89(H) 60 - 85 % 06/18/2023 9:27 [facility] Base Excess(+) / Deficit(-), Venous, i-STAT -6(L) -2 - 3 mmol/L 06/18/2023 9:27 [facility] Blood ARTERIAL BLOOD / Unknown 06/18/2023 9:19 EDT 06/18/2023 9:27 EDT Narrative [facility] - 06/18/2023 9:27 EDT Test Performed by Respiratory Tai Azar MD POINT OF CARE TEST ORDERABLES [facility] [address] [place] [address] * CT CHEST WO CONTRAST (06/18/2023 9:07 [...] above interpretation and agree with the findings. [id number] Narrative 06/18/2023 10:[address] CHEST WO [...] Acute nondisplaced sternal body fracture. Procedure Note Thong Nagel MD - 06/18/2023 CT CHEST WO [...] the above interpretation andagree with the findings. [id number] Rui Gomez MD IMG CT ORDERABLES * (ABNORMAL) TROPONIN I (06/18/2023 8:16 EDT) Troponin I (ng/mL) 0.643(H) <0.034 ng/mL 06/18/2023 8:51 EDT [facility] Blood VENOUS BLOOD / Unknown Venipuncture / Unknown 06/18/2023 8:16 EDT 06/18/2023 8:23 EDT Narrative [facility] - 06/18/2023 8:51 EDT The results of this assay can be falsely lowered due to the consumption of Biotin. Ashlie Valentine MD PhD CHEMISTRY & BLOOD G ORDERABLES [facility] [address] [place] [address] * (ABNORMAL) POCT BLOOD GAS, EG6 I-STAT (06/18/2023 4:39 EDT) pH, Arterial, i-STAT 7.28(L) 7.35 - 7.45 06/18/2023 4:42 EDT [facility] PCO2, Arterial, i-STAT 44 35 - 45 mmHg 06/18/2023 4:42 EDT [facility] pO2, Arterial, i-STAT 38(L) 80 - 105 mmHg 06/18/2023 4:42 EDT [facility] TCO2, Arterial, i-STAT 22 22 - 26 mmol/L 06/18/2023 4:42 EDT [facility] O2 Saturation, Arterial, i-STAT 66(L) 95 - 98 % 06/18/2023 4:42 T [facility] Base Excess(+) / Deficit(-), Arterial, i-STAT -6(L) -2 - 3 mmol/L 06/18/2023 4:42 EDT [facility] Blood ARTERIAL BLOOD / Unknown 06/18/2023 4:39 EDT 06/18/2023 4:42 EDT Narrative [facility] - 06/18/2023 4:42 EDT Test Performed by Respiratory For arterial collection, the Laboratory recommends that the Modified Ashutosh test be performed to determine that collateral circulation is present from the ulnar artery in the event that thrombosis of the radial artery should occur. Performance of the Modified Ashutosh test should be documented in the patients' chart Tai Azar MD POINT OF CARE TEST ORDERABLES [facility] [address] [place] [address] * (ABNORMAL) DIFFERENTIAL, AUTOMATED MANUAL (06/18/2023 4:32 EDT) % Neutrophils 85.2 Not Indicated % 06/18/2023 5:59 EDT [facility] % Lymphocytes 3.5 Not Indicated % 06/18/2023 5:59 [facility] % Atypical Lymphocytes 0.9 Not Indicated % 06/18/2023 5:59 [facility] % Monocytes 6.1 Not Indicated % 06/18/2023 5:59 [facility] % Metamyelocytes 0.9 Not Indicated % 06/18/2023 5:59 [facility] % Myelocytes 1.7 Not Indicated % 06/18/2023 5:59 [facility] % Promyelocytes 1.7 Not Indicated % 06/18/2023 5:59 [facility] Large Platelets Present K/cm 5:59 [facility] Absolute Neutrophils 21.52(H) 2.20 - 8.85 K/cmm 06/18/2023 5:59 [facility] Absolute Lymphocytes 0.88(L) 1.09 - 3.30 K/cmm 06/18/2023 5:59 [facility] Absolute Atypical Lymphocytes 0.23 K/cmm 06/18/2023 5:59 [facility] Absolute Monocytes 1.54(H) 0.10 - 0.80 K/cmm 06/18/2023 5:59 [facility] Absolute Metamyelocytes 0.23(H) <=0.00 K/cmm 06/18/2023 5:59 [facility] Absolute Myelocytes 0.43(H) <=0.00 K/cmm 06/18/2023 5:59 [facility] Absolute Promyelocytes 0.43(H) <=0.00 K/cmm 06/18/2023 5:59 [facility] Type of Differential: Manual 06/18/2023 5:59 [facility] Blood VENOUS BLOOD / Unknown Venipuncture / Unknown 06/18/2023 4:32 EDT 06/18/2023 4:36 EDT Ayden Jennings HEMATOLOGY & PF4 ORD ERABLES [facility] [address] [place] [address] * MAGNESIUM (06/18/2023 4:32 EDT) Pathologist [facility] Magnesium 1.9 1.7 - 2.8 mg/dL 06/18/2023 5:08 EDT [facility] Blood VENOUS BLOOD / Unknown Venipuncture / Unknown 06/18/2023 4:32 EDT 06/18/2023 4:36 EDT Reza Brito MD CHEMISTRY & BLOOD GA S ORDERABLES Performing Organization Address [facility] Co de Phone Number [facility] [address] [place] [address] * (ABNORMAL) PHOSPHORUS (06/18/2023 4:32 EDT) Pathologist [facility] Phosphorus 6.1(H) 2.5 - 4.5 mg/dL 06/18/2023 5:08 EDT [facility] Blood VENOUS BLOOD / Unknown Venipuncture / Unknown 06/18/2023 4:32 EDT 06/18/2023 4:36 EDT Reza Brito MD CHEMISTRY & BLOOD GA S ORDERABLES Performing Organization Address [facility] [facility] Co de Phone Number [facility] [address] [place] [address] * (ABNORMAL) COMPLETE BLOOD COUNT AND DIFFERENTIAL (06/18/2023 4:32 EDT) WBC 25.26(H) 4.00 - 12.40 K/cmm 06/18/2023 4:50 EDT [facility] RBC 3.33(L) 3.86 - 5.04 M/cmm 06/18/2023 4:50 EDT [facility] Hemoglobin 10.0(L) 11.6 - 15.2 g/dL 06/18/2023 4:50 EDT [facility] HCT 29.0(L) 34.9 - 44.4 % 06/18/2023 4:50 [facility] MCV 87 81 - 98 fL 06/18/2023 4:50 EDT [facility] MCH 30.0 26.7 - 33.3 pg 06/18/2023 4:50 [facility] MCHC 34.5 32.1 - 35.9 g/dL 06/18/2023 4:50 [facility] RDW-CV 16.9(H) <14.7 % 06/18/2023 4:50 [facility] RDW-SD 52.0(H) <50.4 fl 06/18/2023 4:50 [facility] PLT 432(H) 141 - 377 K/cmm 06/18/2023 4:50 [facility] MPV 9.4(L) 9.5 - 12.7 fL 06/18/2023 4:50 [facility] Blood VENOUS BLOOD / Unknown Venipuncture / Unknown 06/18/2023 4:32 EDT 06/18/2023 4:36 EDT Ayden Jennings PACKAGES & DNA PROBE ORDERABLES [facility] [address], [place] [phone] * (ABNORMAL) BASIC METABOLIC PANEL (BMP) (06/18/2023 4:32 EDT) Sodium 134(L) 136 - 145 mmol/L 06/18/2023 5:08 [facility] Potassium 5.1(H) 3.5 - 5.0 mmol/L 06/18/2023 5:08 [facility] Chloride 109 96 - 110 mmol/L 06/18/2023 5:08 [facility] CO2 Total 18(L) 22 - 32 mmol/L 06/18/2023 5:08 [facility] Anion Gap 7 5 - 14 mmol/L 06/18/2023 5:08 EDT [facility] Glucose 126(H) 70 - 99 mg/dl 06/18/2023 5:08 EDT [facility] Calcium 8.5 8.5 - 10.5 mg/dL 06/18/2023 5:08 EDT [facility] BUN 35(H) 10 - 26 mg/dL 06/18/2023 5:08 EDT [facility] Creatinine 0.63 0.52 - 1.04 mg/dL 06/18/2023 5:08 EDT [facility] eGFR 107 >60 mL/min/1.73 m2 06/18/2023 5:08 EDT [facility] Blood VENOUS BLOOD / Unknown Venipuncture / Unknown 06/18/2023 4:32 EDT 06/18/2023 4:36 EDT Titus Kenny MD CHEMISTRY & BLOOD GA S ORDERABLES Performing Organization Address City/[facility] Co de Phone Number [facility] [address] [place] [address] * (ABNORMAL) TRIGLYCERIDE (06/18/2023 4:32 EDT) Triglyceride 335(H) <=150 mg/dL 06/18/2023 5:08 EDT [facility] Comment:Note that therapeuti c goals will differ between patients based on cardiac risk factors and current medical therapy. Blood VENOUS BLOOD / Unknown Venipuncture / Unknown 06/18/2023 4:32 EDT 06/18/2023 4:36 EDT Paulette Hoover MD CHEMISTRY & BLO OD GAS ORDERABLES Performing Organization Address [facility]/ZIP Co de Phone Number [facility] [address], [place] [phone] * XR CHEST PORTABLE 1 VIEW (06/18/2023 1:23 EDT) Anatomical Region Laterality Modality Computed Radiogr aphy 06/18/2023 9:16 EDT Impressions 06/18/2023 9:16 EDT Interval extubation and removal of NG tube. Transvenous pacemaker wire tip in right ventricular apex. Interval development of left lower lobe atelectasis. Probable developing right lower lobe atelectasis. [id number] Narrative 06/18/2023 9:16 EDT XR CHEST PORTABLE [...] lobeatelectasis. Probable developing right lower lobe atelectasis. [id number] Ashlie Valentine MD PhD IMG DIAGNOSTIC IMAG ING ORDERABLES * (ABNORMAL) POCT BLOOD GAS, EG6 I-STAT (06/18/2023 0:39 EDT) pH, Arterial, i-STAT 7.32(L) 7.35 - 7.45 06/18/2023 0:43 EDT [facility] PCO2, Arterial, i-STAT 39 35 - 45 mmHg 06/18/2023 0:43 EDT [facility] pO2, Arterial, i-STAT 80 80 - 105 mmHg 06/18/2023 0:43 EDT [facility] TCO2, Arterial, i-STAT 21(L) 22 - 26 mmol/L 06/18/2023 0:43 EDT [facility] O2 Saturation, Arterial, i-STAT 95 95 - 98 % 06/18/2023 0:43 EDT [facility] Base Excess(+) / Deficit(-), Arterial, i-STAT -6(L) -2 - 3 mmol/L 06/18/2023 0:43 EDT [facility] Blood ARTERIAL BLOOD / Unknown 06/18/2023 0:39 EDT 06/18/2023 0:43 EDT Narrative [facility] - 06/18/2023 0:43 EDT Test Performed by Respiratory For arterial collection, the Laboratory recommends that the Modified Ashutosh test be performed to determine that collateral circulation is present from the ulnar artery in the event that thrombosis of the radial artery should occur. Performance of the Modified Ashutosh test should be documented in the patients' chart Paulette Hoover MD POINT OF CARE T EST ORDERABLES [facility] [address] [place] [address] * (ABNORMAL) TROPONIN I (06/18/2023 0:13 EDT) Troponin I (ng/mL) 0.700(H) <0.034 ng/mL 06/18/2023 0:56 EDT [facility] Blood VENOUS BLOOD / Unknown Venipuncture / Unknown 06/18/2023 0:13 EDT 06/18/2023 0:17 EDT Narrative [facility] - 06/18/2023 0:56 EDT The results of this assay can be falsely lowered due to the consumption of Biotin. Ashlie Valentine MD PhD CHEMISTRY & BLOOD G ORDERABLES Performing Organization Address [facility]/State/ZIP Co de Phone Number [facility] [address] [place] [address] * EKG 12-LEAD (06/18/2023 0:08 EDT) 06/18/2023 0:08 EDT Narrative [facility] - 06/27/2023 16:04 EDT ? The ? Test Date: ?2023-06-18 Pat Name: ? DELLA BROWNING ? Department: ?? [facility] ? Room: ? M316 Gender: ? Female ? 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 [id number] : ?1970 ? Requested By: AKILA DAILEY Order Number: [id number] ? Reading MD: ?? BETO CRAWFORD MD ? Measurements Intervals ?[place] ? Rate: ? 86 ? P: ?45 IA: ? 185 ?QRS: ?28 QRSD: ? 83 [...] Note Beto Crawford MD - 06/27/2023 The Test Date: 2023-06-18 Pat Name: DELLA BROWNING Department: [place] [address] Room: [facility] Gender: Female President Practicing Urologist: [id number] : 1970 Requested By: AKILA DAILEY Order Number: [id number] Reading MD: BETO CORONA Measurements Intervals [place] Rate: 86 P: 45 IA: 185 QRS: 28 QRSD: 83 T: 31 [...] 06-27-2023 16:04:42 EDT by BETO CRAWFORD MD. Ashlie Valentine MD PhD CARDIAC ECG ORDERAB LES Performing Organization Address City/[facility]/ZIP Co de Phone Number [facility] E[facility] * (ABNORMAL) POCT GLUCOSE, INTERFACED (06/17/2023 23:46 EDT) Glucose, POC 156(H) 70 - 100 mg/dL 06/17/2023 23:47 EDT [facility] HN LAB POC COMMENT (GLUCOSE) Test Performed by Nursing Services 06/17/2023 23:47 EDT [facility] Blood CAPILLARY BLOOD / Unknown 06/17/2023 23:46 EDT 06/17/2023 23:47 EDT Reza Brito MD POINT OF CARE TEST O RDERABLES Performing Organization Address City/[facility]/ZIP Co de Phone Number [facility] [address] [place] [address] * CALCIUM, IONIZED (06/17/2023 23:43 EDT) Calcium, Ionized 1.18 1.14 - 1.35 mmol/L 06/18/2023 0:00 EDT [facility] Blood VENOUS BLOOD / Unknown Venipuncture / Unknown 06/17/2023 23:43 EDT 06/17/2023 23:46 EDT Ashlie Valentine MD PhD CHEMISTRY & BLOOD G ORDERABLES Performing Organization Address City/[facility]/ZIP Co de Phone Number [facility] [address] [place] [address] * (ABNORMAL) BASIC METABOLIC PANEL (BMP) (06/17/2023 23:43 EDT) Sodium 134(L) 136 - 145 mmol/L 06/18/2023 0:23 EDT [facility] Potassium 4.9 3.5 - 5.0 mmol/L 06/18/2023 0:23 EDT [facility] Chloride 109 96 - 110 mmol/L 06/18/2023 0:23 EDT [facility] CO2 Total 16(L) 22 - 32 mmol/L 06/18/2023 0:23 EDT [facility] Anion Gap 9 5 - 14 mmol/L 06/18/2023 0:23 EDT [facility] Glucose 153(H) 70 - 99 mg/dl 06/18/2023 0:23 EDT [facility] Calcium 8.4(L) 8.5 - 10.5 mg/dL 06/18/2023 0:23 T [facility] BUN 37(H) 10 - 26 mg/dL 06/18/2023 0:23 T [facility] Creatinine 0.61 0.52 - 1.04 mg/dL 06/18/2023 0:23 T [facility] eGFR 108 >60 mL/min/1.73 m2 06/18/2023 0:23 T [facility] Blood VENOUS BLOOD / Unknown Venipuncture / Unknown 06/17/2023 23:43 EDT 06/17/2023 23:46 EDT Titus Kenny MD CHEMISTRY & BLOOD GA S ORDERABLES [facility] [address] [place] [address] * (ABNORMAL) COMPLETE BLOOD COUNT (06/17/2023 17:34 EDT) WBC 20.00(H) 4.00 - 12.40 K/cmm 06/17/2023 17:57 EDT [facility] RBC 2.89(L) 3.86 - 5.04 M/cmm 06/17/2023 17:57 [facility] Hemoglobin 8.5(L) 11.6 - 15.2 g/dL 06/17/2023 17:57 T [facility] HCT 25.1(L) 34.9 - 44.4 % 06/17/2023 17:57 T [facility] MCV 87 81 - 98 fL 06/17/2023 17:57 T [facility] MCH 29.4 26.7 - 33.3 pg 06/17/2023 17:57 [facility] MCHC 33.9 32.1 - 35.9 g/dL 06/17/2023 17:57 [facility] RDW-CV 16.8(H) <14.7 % 06/17/2023 17:57 T [facility] RDW-SD 53.1(H) <50.4 fl 06/17/2023 17:57 [facility] PLT 332 141 - 377 K/cmm 06/17/2023 17:57 [facility] MPV 9.7 9.5 - 12.7 fL 06/17/2023 17:57 [facility] Blood VENOUS BLOOD / Unknown Venipuncture / Unknown 06/17/2023 17:34 EDT 06/17/2023 17:38 EDT Ayden Jennings HEMATOLOGY & PF4 ORD ERABLES [facility] [address] [place] [address] * (ABNORMAL) BASIC METABOLIC PANEL (BMP) (06/17/2023 17:34 EDT) Pathologist [facility] Sodium 131(L) 136 - 145 mmol/L 06/17/2023 17:53 [facility] Potassium 4.6 3.5 - 5.0 mmol/L 06/17/2023 17:53 [facility] Chloride 109 96 - 110 mmol/L 06/17/2023 17:53 [facility] CO2 Total 17(L) 22 - 32 mmol/L 06/17/2023 17:53 [facility] Anion Gap 5 5 - 14 mmol/L 06/17/2023 17:53 [facility] Glucose 141(H) 70 - 99 mg/dl 06/17/2023 17:53 [facility] Calcium 8.0(L) 8.5 - 10.5 mg/dL 06/17/2023 17:53 [facility] BUN 40(H) 10 - 26 mg/dL 06/17/2023 17:53 [facility] Creatinine 0.61 0.52 - 1.04 mg/dL 06/17/2023 17:53 [facility] eGFR 108 >60 mL/min/1.73 m2 06/17/2023 17:53 [facility] Blood VENOUS BLOOD / Unknown Venipuncture / Unknown 06/17/2023 17:34 EDT 06/17/2023 17:38 EDT Titus Kenny MD CHEMISTRY & BLOOD GA S ORDERABLES Performing Organization Address City/State/[facility] Co de Phone Number [facility] [address], [place] [phone] * (ABNORMAL) POCT GLUCOSE, INTERFACED (06/17/2023 17:33 EDT) Glucose, POC 139(H) 70 - 100 mg/dL 06/17/2023 17:35 T [facility] HN LAB POC COMMENT (GLUCOSE) Test Performed by Nursing Services 06/17/2023 17:35 [facility] Blood CAPILLARY BLOOD / Unknown 06/17/2023 17:33 EDT 06/17/2023 17:35 EDT Reza Brito MD POINT OF CARE TEST O RDERABLES Performing Organization Address City/[facility]/ZIP Co de Phone Number [facility] [address] [place] [address] * ECG REPORT - SCANNED (06/17/2023 12:52 EDT) 06/17/2023 12:5 2 EDT Scan 2 Nursing Coordinator PROCEDURE/MINOR VI GICAL ORDERABLES * (ABNORMAL) POCT GLUCOSE, INTERFACED (06/17/2023 11:31 EDT) Glucose, POC 163(H) 70 - 100 mg/dL 06/17/2023 11:32 EDT [facility] HN LAB POC COMMENT (GLUCOSE) Test Performed by Nursing Services 06/17/2023 11:32 EDT [facility] Blood CAPILLARY BLOOD / Unknown 06/17/2023 11:31 EDT 06/17/2023 11:32 EDT Reza Brito MD POINT OF CARE TEST O RDERAMICHAEL Performing Organization Address City/[facility]/ZIP Co de Phone Number [facility] [address], [place] [phone] * (ABNORMAL) BASIC METABOLIC PANEL (BMP) (06/17/2023 11:31 EDT) Sodium 132(L) 136 - 145 mmol/L 06/17/2023 12:13 EDT [facility] Potassium 4.7 3.5 - 5.0 mmol/L 06/17/2023 12:13 EDT [facility] Chloride 109 96 - 110 mmol/L 06/17/2023 12:13 EDT [facility] CO2 Total 17(L) 22 - 32 mmol/L 06/17/2023 12:13 EDT [facility] Anion Gap 6 5 - 14 mmol/L 06/17/2023 12:13 EDT [facility] Glucose 159(H) 70 - 99 mg/dl 06/17/2023 12:13 EDT [facility] Calcium 8.6 8.5 - 10.5 mg/dL 06/17/2023 12:13 T [facility] BUN 40(H) 10 - 26 mg/dL 06/17/2023 12:13 EDT [facility] Creatinine 0.69 0.52 - 1.04 mg/dL 06/17/2023 12:13 EDT [facility] eGFR 104 >60 mL/min/1.73 m2 06/17/2023 12:13 EDT [facility] Blood VENOUS BLOOD / Unknown Venipuncture / Unknown 06/17/2023 11:31 EDT 06/17/2023 11:40 EDT Titus Kenny MD CHEMISTRY & BLOOD GA S ORDERABLES Performing Organization Address City/State/[facility] Co de Phone Number [facility] [address] [place] [phone] * TRANSFUSE RED BLOOD CELLS (06/17/2023 10:53 EDT) Blood Ashlie Valentine MD PhD NURSING TREATMENT - BLOOD ADMINISTRATION * TRANSFUSE RED BLOOD CELLS (06/17/2023 10:53 EDT) Blood Ashlie Valentine MD PhD NURSING TREATMENT - BLOOD ADMINISTRATION * CALCIUM, IONIZED (06/17/2023 8:06 EDT) Calcium, Ionized 1.19 1.14 - 1.35 mmol/L 06/17/2023 8:23 EDT [facility] Comment: Tube not filled to capacity. Ionized calcium results may be falsely decreased. Interpret results with caution. Blood VENOUS BLOOD / Unknown Venipuncture / Unknown 06/17/2023 8:06 EDT 06/17/2023 8:11 EDT Ángel Bustamante MD CHEMISTRY & BLOOD GA S ORDERABLES Performing Organization Address City/[facility]/ZIP Co de Phone Number [facility] [address] [place] [address] * PREPARE RED BLOOD CELLS (06/17/2023 7:40 EDT) [facility] Product Code [id number] [facility] Donor Number [id number] U [facility] B[facility]OD [facility] Unit ABO O [facility] B[facility]OD [facility] Unit Rh POS [facility] Unit Status RE^Released From [employer] [facility] Product Expiration Date [id number] [facility] B[facility] Unit Blood Type Code 5100 [facility] Volume 289 [facility] Coding System [id number] [facility] Blood 06/17/2023 7:40 EDT Ashlie Valentine MD PhD BLOOD BANK ORDERABL ES Performing Organization Address City/[facility]/ZIP Co de Phone Number [facility] [address] [place] [address] * (ABNORMAL) POCT GLUCOSE, INTERFACED (06/17/2023 6:09 EDT) [facility] Glucose, POC 150(H) 70 - 100 mg/dL 06/17/2023 6:10 EDT [facility] HN LAB POC COMMENT (GLUCOSE) Test Performed by Nursing Services 06/17/2023 6:10 EDT [facility] Blood CAPILLARY BLOOD / Unknown 06/17/2023 6:09 EDT 06/17/2023 6:10 EDT Reza Brito MD POINT OF CARE TEST O RDERABLES [facility] [address] [place] [address] * (ABNORMAL) TRIGLYCERIDE (06/17/2023 4:06 EDT) Triglyceride 400(H) <=150 mg/dL 06/17/2023 7:14 [facility] Comment:Note that therapeuti c goals will differ between patients based on cardiac risk factors and current medical therapy. Blood VENOUS BLOOD / Unknown Venipuncture / Unknown 06/17/2023 4:06 EDT 06/17/2023 4:11 EDT Joan Menon MD CHEMISTRY & BLOOD GA S ORDERABLES [facility] [address] [place] [address] * (ABNORMAL) DIFFERENTIAL, AUTOMATED MANUAL (06/17/2023 4:06 EDT) Pathologist [facility] % Neutrophils 77.2 % 06/17/2023 5:32 [facility] % Banded Neutrophils 1.7 % 06/17/2023 5:32 [facility] % Lymphocytes 8.8 % 06/17/2023 5:32 [facility] % Monocytes 2.6 % 06/17/2023 5:32 [facility] % Eosinophils 0.9 % 06/17/2023 5:32 [facility] % Metamyelocytes 6.1 % 06/17/19 5:32 [facility] % Myelocytes 1.8 % 06/17/2023 5:32 [facility] % Promyelocytes 0.9 % 5:32 [facility] Target Cells 2+ 06/17/2023 5:32 [facility] Vacuolated Neutrophils Present 06/17/2023 5:32 [facility] Absolute Neutrophils 15.48(H) 2.20 - 8.85 K/cmm 06/17/2023 5:32 [facility] Absolute Bands 0.34 K/cmm 06/17/2023 5:32 [facility] Absolute Lymphocytes 1.76 1.09 - 3.30 K/cmm 06/17/2023 5:32 EDT [facility] Absolute Monocytes 0.52 0.10 - 0.80 K/cmm 06/17/2023 5:32 EDT [facility] Absolute Eosinophils 0.18 0.03 - 0.61 K/cmm 06/17/2023 5:32 EDT [facility] Absolute Metamyelocytes 1.22(H) <=0.00 K/cmm 06/17/2023 5:32 EDT [facility] Absolute Myelocytes 0.36(H) <=0.00 K/cmm 06/17/2023 5:32 EDT [facility] Absolute Promyelocytes 0.18(H) <=0.00 K/cmm 06/17/2023 5:32 [facility] Type of Differential: Manual 06/17/2023 5:32 [facility] Blood VENOUS BLOOD / Unknown Venipuncture / Unknown 06/17/2023 4:06 EDT 06/17/2023 4:11 EDT Narrative [facility] - 06/17/2023 5:32 EDT Differential performed on albumin made slide. Ayden Jennings HEMATOLOGY & PF4 ORD ERABLES [facility] [address] [place] [phone] * (ABNORMAL) POCT BLOOD GAS, EG6 I-STAT (06/17/2023 4:06 EDT) pH, Venous, i-STAT 7.30(L) 7.31 - 7.41 06/17/2023 4:08 EDT [facility] pCO2, Venous, i-STAT 40(L) 41 - 51 mmHg 06/17/2023 4:08 EDT [facility] pO2, Venous, i-STAT 41 30 - 50 mmHg 06/17/2023 4:08 EDT [facility] TCO2, Venous, i-STAT 21(L) 22 - 28 mmol/L 06/17/2023 4:08 EDT [facility] O2 Saturation, Venous, i-STAT 71 60 - 85 % 06/17/2023 4:08 EDT [facility] Base Excess(+) / Deficit(-), Venous, i-STAT -6(L) -2 - 3 mmol/L 06/17/2023 4:08 EDT [facility] Blood VENOUS BLOOD / Unknown 06/17/2023 4:06 EDT 06/17/2023 4:08 EDT Narrative [facility] - 06/17/2023 4:08 EDT Test Performed by Respiratory Paulette Hoover MD POINT OF CARE T EST ORDERABLES Performing Organization Address City/[facility]/ZIP Co de Phone Number [facility] [address], [place] [phone] * MAGNESIUM (06/17/2023 4:06 EDT) Magnesium 1.9 1.7 - 2.8 mg/dL 06/17/2023 4:42 EDT [facility] Blood VENOUS BLOOD / Unknown Venipuncture / Unknown 06/17/2023 4:06 EDT 06/17/2023 4:11 EDT Reza Brito MD CHEMISTRY & BLOOD GA S ORDERABLES Performing Organization Address City/[facility]/ZIP Co de Phone Number [facility] [address] [place] [address] * (ABNORMAL) PHOSPHORUS (06/17/2023 4:06 EDT) Phosphorus 6.4(H) 2.5 - 4.5 mg/dL 06/17/2023 4:42 EDT [facility] Blood VENOUS BLOOD / Unknown Venipuncture / Unknown 06/17/2023 4:06 EDT 06/17/2023 4:11 EDT Reza Brito MD CHEMISTRY & BLOOD GA S ORDERABLES Performing Organization Address City/[facility]/ZIP Co de Phone Number [facility] [address], [place] [id number] * (ABNORMAL) COMPLETE BLOOD COUNT AND DIFFERENTIAL (06/17/2023 4:06 EDT) WBC 20.05(H) 4.00 - 12.40 K/cmm 06/17/2023 4:19 EDT [facility] RBC 2.47(L) 3.86 - 5.04 M/cmm 06/17/2023 4:19 [facility] Hemoglobin 7.5(L) 11.6 - 15.2 g/dL 06/17/2023 4:19 [facility] HCT 21.1(L) 34.9 - 44.4 % 06/17/2023 4:19 [facility] MCV 85 81 - 98 fL 06/17/2023 4:19 [facility] MCH 30.4 26.7 - 33.3 pg 06/17/2023 4:19 [facility] MCHC 35.5 32.1 - 35.9 g/dL 06/17/2023 4:19 [facility] RDW-CV 15.8(H) <14.7 % 06/17/2023 4:19 [facility] RDW-SD 49.0 <50.4 fl 06/17/2023 4:19 [facility] PLT 349 141 - 377 K/cmm 06/17/2023 4:19 [facility] MPV 9.7 9.5 - 12.7 fL 06/17/2023 4:19 [facility] Blood VENOUS BLOOD / Unknown Venipuncture / Unknown 06/17/2023 4:06 EDT 06/17/2023 4:11 EDT Ayden Jennings PACKAGES & DNA PROBE ORDERABLES [facility] [address], [place] [id number] * (ABNORMAL) BASIC METABOLIC PANEL (BMP) (06/17/2023 4:06 EDT) Sodium 129(L) 136 - 145 mmol/L 06/17/2023 4:42 EDT [facility] Potassium 4.6 3.5 - 5.0 mmol/L 06/17/2023 4:42 T [facility] Chloride 105 96 - 110 mmol/L 06/17/2023 4:42 T [facility] CO2 Total 18(L) 22 - 32 mmol/L 06/17/2023 4:42 [facility] Anion Gap 6 5 - 14 mmol/L 06/17/2023 4:42 [facility] Glucose 148(H) 70 - 99 mg/dl 06/17/2023 4:42 [facility] Calcium 8.7 8.5 - 10.5 mg/dL 06/17/2023 4:42 [facility] BUN 41(H) 10 - 26 mg/dL 06/17/2023 4:42 [facility] Creatinine 0.85 0.52 - 1.04 mg/dL 06/17/2023 4:42 [facility] eGFR 82 >60 mL/min/1.73 m2 06/17/2023 4:42 [facility] Blood VENOUS BLOOD / Unknown Venipuncture / Unknown 06/17/2023 4:06 EDT 06/17/2023 4:11 EDT Titus Kenny MD CHEMISTRY & BLOOD GA S ORDERABLES [facility] [address], [place] [phone] * (ABNORMAL) BASIC METABOLIC PANEL (BMP) (06/16/2023 23:51 EDT) Sodium 128(L) 136 - 145 mmol/L 06/17/2023 0:13 EDT [facility] Potassium 4.7 3.5 - 5.0 mmol/L 06/17/2023 0:13 [facility] Chloride 105 96 - 110 mmol/L 06/17/2023 0:13 [facility] CO2 Total 17(L) 22 - 32 mmol/L 06/17/2023 0:13 [facility] Anion Gap 6 5 - 14 mmol/L 06/17/2023 0:13 [facility] Glucose 135(H) 70 - 99 mg/dl 06/17/2023 0:13 [facility] Calcium 9.0 8.5 - 10.5 mg/dL 06/17/2023 0:13 [facility] BUN 41(H) 10 - 26 mg/dL 06/17/2023 0:13 [facility] Creatinine 0.87 0.52 - 1.04 mg/dL 06/17/2023 0:13 [facility] eGFR 80 >60 mL/min/1.73 m2 06/17/2023 0:13 [facility] Blood VENOUS BLOOD / Unknown Venipuncture / Unknown 06/16/2023 23:51 EDT 06/17/2023 0:02 EDT Titus Kenny MD CHEMISTRY & BLOOD GA S ORDERABLES [facility] [address], [place] [id number] * (ABNORMAL) POCT GLUCOSE, INTERFACED (06/16/2023 23:50 EDT) Glucose, POC 139(H) 70 - 100 mg/dL 06/16/2023 23:52 EDT [facility] HN LAB POC COMMENT (GLUCOSE) Test Performed by Nursing Services 06/16/2023 23:52 EDT [facility] Blood CAPILLARY BLOOD / Unknown 06/16/2023 23:50 EDT 06/16/2023 23:52 EDT Reza Brito MD POINT OF CARE TEST O RDERABLES Performing Organization Address [facility] Co de Phone Number [facility] [address] [place] [address] * (ABNORMAL) CALCIUM, IONIZED (06/16/2023 21:26 EDT) Calcium, Ionized 1.13(L) 1.14 - 1.35 mmol/L 06/16/2023 21:37 EDT [facility] Comment:Tube not filled to c apacity. Ionized calcium results may be falsely decreased. Interpret results with caution. Blood VENOUS BLOOD / Unknown Venipuncture / Unknown 06/16/2023 21:26 EDT 06/16/2023 21:30 EDT Narrative [facility] - 06/16/2023 21:37 EDT Reza Brito MD CHEMISTRY & BLOOD GA S ORDERABLES Performing Organization Address [facility] Co de Phone Number [facility] [address] [place] [address] * XR CHEST PORTABLE LINE PLACEMENT (06/16/2023 19:30 EDT) Anatomical Region Laterality Modality Chest Computed Radiogr aphy 06/17/2023 9:39 EDT Impressions 06/17/2023 9:39 EDT Slight retraction of pacemaker lead tip, now projecting just beyond tricuspid valve within the right ventricle. ET tube and NG tube as seen previously. Dense left lower lobe atelectasis and probable subsegmental atelectasis at the right lung base. [id number] Narrative 06/17/2023 9:39 EDT XR CHEST PORTABLE [...] probable subsegmental atelectasis atthe right lung base. [id number] Reza Brito MD IMG DIAGNOSTIC IMAGI NG ORDERABLES * (ABNORMAL) POCT GLUCOSE, INTERFACED (06/16/2023 18:08 EDT) Glucose, POC 109(H) 70 - 100 mg/dL 06/16/2023 18:09 EDT [facility] HN LAB POC COMMENT (GLUCOSE) Test Performed by Nursing Services 06/16/2023 18:09 EDT [facility] Blood CAPILLARY BLOOD / Unknown 06/16/2023 18:08 EDT 06/16/2023 18:09 EDT Reza Brito MD POINT OF CARE TEST O RDERABLES Performing Organization Address City/[facility]/ZIP Co de Phone Number [facility] [address] [place] [address] * (ABNORMAL) PHOSPHORUS (06/16/2023 18:06 EDT) Phosphorus 7.5(H) 2.5 - 4.5 mg/dL 06/16/2023 18:29 EDT [facility] Blood VENOUS BLOOD / Unknown Venipuncture / Unknown 06/16/2023 18:06 EDT 06/16/2023 18:12 EDT Reza Brito MD CHEMISTRY & BLOOD GA S ORDERABLES Performing Organization Address [facility] Co de Phone Number [facility] [address] [place] [address] * (ABNORMAL) BASIC METABOLIC PANEL (BMP) (06/16/2023 18:06 EDT) Sodium 129(L) 136 - 145 mmol/L 06/16/2023 18:29 [facility] Potassium 4.8 3.5 - 5.0 mmol/L 06/16/2023 18:29 [facility] Chloride 105 96 - 110 mmol/L 06/16/2023 18:29 [facility] CO2 Total 17(L) 22 - 32 mmol/L 06/16/2023 18:29 [facility] Anion Gap 7 5 - 14 mmol/L 06/16/2023 18:29 [facility] Glucose 104(H) 70 - 99 mg/dl 06/16/2023 18:29 [facility] Calcium 8.1(L) 8.5 - 10.5 mg/dL 06/16/2023 18:29 [facility] BUN 41(H) 10 - 26 mg/dL 06/16/2023 18:29 [facility] Creatinine 0.97 0.52 - 1.04 mg/dL 06/16/2023 18:29 EDT [facility] eGFR 70 >60 mL/min/1.73 m2 06/16/2023 18:29 EDT [facility] Blood VENOUS BLOOD / Unknown Venipuncture / Unknown 06/16/2023 18:06 EDT 06/16/2023 18:12 EDT Titus Kenny MD CHEMISTRY & BLOOD GA S ORDERABLES Performing Organization Address City/[facility]/ZIP Co de Phone Number [facility] [address] [place] [address] * BACTERIAL CULTURE, BLOOD (06/16/2023 12:56 EDT) Organism ID No Growth at 5 days 06/21/2023 13:15 EDT [facility] Blood VENOUS BLOOD / Unknown Venipuncture / Unknown 06/16/2023 12:56 EDT 06/16/2023 13:13 EDT Reza Brito MD MICROBIOLOGY - GENER AL ORDERABLES Performing Organization Address City/[facility] Co de Phone Number [facility] [address] [place] [id number] * BACTERIAL CULTURE, BLOOD (06/16/2023 12:46 EDT) Organism ID No Growth at 5 days 06/21/2023 13:15 EDT [facility] Blood VENOUS BLOOD / Unknown Venipuncture / Unknown 06/16/2023 12:46 EDT 06/16/2023 13:13 EDT Reza Brito MD MICROBIOLOGY - GENER AL ORDERABLES Performing Organization Address [facility] Co de Phone Number [facility] [address] [place] [address] * (ABNORMAL) POCT GLUCOSE, INTERFACED (06/16/2023 11:36 EDT) Glucose, POC 200(H) 70 - 100 mg/dL 06/16/2023 11:43 EDT [facility] HN LAB POC COMMENT (GLUCOSE) Test Performed by Nursing Services 06/16/2023 11:43 [facility] Blood CAPILLARY BLOOD / Unknown 06/16/2023 11:36 EDT 06/16/2023 11:43 EDT Paulette Hoover MD POINT OF CARE T EST ORDERABLES [facility] [address] [place] [address] * (ABNORMAL) BASIC METABOLIC PANEL (BMP) (06/16/2023 11:33 EDT) Sodium 128(L) 136 - 145 mmol/L 06/16/2023 12:10 [facility] Potassium 4.7 3.5 - 5.0 mmol/L 06/16/2023 12:10 [facility] Chloride 103 96 - 110 mmol/L 06/16/2023 12:10 [facility] CO2 Total 14(L) 22 - 32 mmol/L 06/16/2023 12:10 [facility] Anion Gap 11 5 - 14 mmol/L 06/16/2023 12:10 [facility] Glucose 174(H) 70 - 99 mg/dl 06/16/2023 12:10 [facility] Calcium 8.5 8.5 - 10.5 mg/dL 06/16/2023 12:10 [facility] BUN 39(H) 10 - 26 mg/dL 06/16/2023 12:10 [facility] Creatinine 1.11(H) 0.52 - 1.04 mg/dL 06/16/2023 12:10 [facility] eGFR 60(L) >60 mL/min/1.73 m2 06/16/2023 12:10 [facility] Blood VENOUS BLOOD / Unknown Venipuncture / Unknown 06/16/2023 11:33 EDT 06/16/2023 11:42 EDT Titus Kenny MD CHEMISTRY & BLOOD WA S ORDERABLES Performing Organization Address [facility]/ZIP Co de Phone Number [facility] [address], [place] [phone] * (ABNORMAL) TROPONIN I (06/16/2023 11:33 EDT) Pathologist [facility] Troponin I (ng/mL) 1.370(H) <0.034 ng/mL 06/16/2023 12:21 EDT [facility] Blood VENOUS BLOOD / Unknown Venipuncture / Unknown 06/16/2023 11:33 EDT 06/16/2023 11:42 EDT Narrative [facility] - 06/16/2023 12:21 EDT The results of this assay can be falsely lowered due to the consumption of Biotin. Ayden Jennings CHEMISTRY & BLOOD GA S ORDERABLES Performing Organization Address [facility] Co de Phone Number [facility] [address] [place] [address] * (ABNORMAL) POCT BLOOD GAS, EG6 I-STAT (06/16/2023 10:58 EDT) pH, Venous, i-STAT 7.25(L) 7.31 - 7.41 06/16/2023 11:02 EDT [facility] pCO2, Venous, i-STAT 36(L) 41 - 51 mmHg 06/16/2023 11:02 EDT [facility] pO2, Venous, i-STAT 50 30 - 50 mmHg 06/16/2023 11:02 EDT [facility] TCO2, Venous, i-STAT 17(L) 22 - 28 mmol/L 06/16/2023 11:02 EDT [facility] O2 Saturation, Venous, i-STAT 79 60 - 85 % 06/16/2023 11:02 EDT [facility] Base Excess(+) / Deficit(-), Venous, i-STAT -11(L) -2 - 3 mmol/L 06/16/2023 11:02 EDT [facility] Blood VENOUS BLOOD / Unknown 06/16/2023 10:58 EDT 06/16/2023 11:02 EDT Narrative [facility] - 06/16/2023 11:02 EDT Test Performed by Respiratory Paulette Hoover MD POINT OF CARE T EST ORDERABLES Performing Organization Address City/[facility]/ZIP Co de Phone Number [facility] [address] [place] [address] * (ABNORMAL) POCT GLUCOSE, INTERFACED (06/16/2023 10:57 EDT) Glucose, POC 199(H) 70 - 100 mg/dL 06/16/2023 11:35 EDT [facility] HN LAB POC COMMENT (GLUCOSE) Test Performed by Nursing Services 06/16/2023 11:35 EDT [facility] Blood CAPILLARY BLOOD / Unknown 06/16/2023 10:57 EDT 06/16/2023 11:35 EDT Reza Brito MD POINT OF CARE TEST O RDERABLES Performing Organization Address [facility] Co de Phone Number [facility] [address] [place] [address] * XR CHEST PORTABLE LINE PLACEMENT (06/16/2023 10:55 EDT) Anatomical Region Laterality Modality Chest Computed Radiogr aphy 06/16/2023 11:0 0 EDT Impressions 06/16/2023 11:00 EDT Lines and tubes as described. Improving left lower lobe atelectasis. [id number] Narrative 06/16/2023 11:00 EDT XR CHEST PORTABLE [...] as described. Improving left lower lobe atelectasis. [id number] Reza Brito MD IMG DIAGNOSTIC IMAGI NG ORDERABLES * XR CHEST PORTABLE LINE PLACEMENT (06/16/2023 8:57 EDT) Anatomical Region Laterality Modality Chest Computed Radiogr aphy 06/16/2023 10:2 1 EDT Impressions 06/16/2023 10:21 EDT Improving left lower lobe atelectasis. Endotracheal tube in the midthoracic trachea. Apparent kink of the proximal portion of the subclavian catheter which is likely projectional. [id number] Narrative 06/16/2023 10:21 EDT XR CHEST PORTABLE [...] of the subclavian catheter which islikely projectional. [id number] Reza Brito MD IMG DIAGNOSTIC IMAGI NG ORDERABLES * HOLD [facility] (06/16/2023 8:20 EDT) Hold Hold 06/16/2023 9:31 EDT [facility] Blood VENOUS BLOOD / Unknown 06/16/2023 8:20 EDT 06/16/2023 8:20 EDT Paulette Hoover MD LAB INFO SERVIC E AND SUPPORT & PHONE RESULT [facility] [address] [place] [address] * HOLD BLUE TOP (06/16/2023 8:20 EDT) Hold Hold 06/16/2023 9:31 EDT [facility] Blood VENOUS BLOOD / Unknown 06/16/2023 8:20 EDT 06/16/2023 8:20 EDT Paulette Hoover MD LAB INFO SERVIC E AND SUPPORT & PHONE RESULT Performing Organization Address City/[facility]/ZIP Co de Phone Number [facility] [address] [place] [address] * LYME AB (06/16/2023 8:20 EDT) [facility] Lyme Ab Negative Negative 06/17/2023 11:26 EDT [facility] Blood VENOUS BLOOD / Unknown 06/16/2023 8:20 EDT 06/16/2023 8:20 EDT Reza Brito MD IMMUNOLOGY AND SEROL OGY ORDERABLES Performing Organization Address [facility] Co de Phone Number [facility] [address] [place] [address] * (ABNORMAL) POCT BLOOD GAS, EG6 I-STAT (06/16/2023 8:16 EDT) [facility] pH, Venous, i-STAT 7.17(L) 7.31 - 7.41 06/16/2023 8:19 EDT [facility] pCO2, Venous, i-STAT 55(H) 41 - 51 mmHg 06/16/2023 8:19 [facility] pO2, Venous, i-STAT 35 30 - 50 mmHg 06/16/2023 8:19 [facility] TCO2, Venous, i-STAT 22 22 - 28 mmol/L 06/16/2023 8:19 T [facility] O2 Saturation, Venous, i-STAT 52(L) 60 - 85 % 06/16/2023 8:19 EDT [facility] Base Excess(+) / Deficit(-), Venous, i-STAT -9(L) -2 - 3 mmol/L 06/16/2023 8:19 EDT [facility] Blood VENOUS BLOOD / Unknown 06/16/2023 8:16 EDT 06/16/2023 8:19 EDT Narrative [facility] - 06/16/2023 8:19 EDT Test Performed by Respiratory Paulette Hoover MD POINT OF CARE T EST ORDERABLES Performing Organization Address City/[facility]/ZIP Co de Phone Number [facility] [address] [place] [address] * SLIDE REQUEST (06/16/2023 8:05 EDT) Pathologist [facility] Note A smear is filed in the Hematology lab. 06/16/2023 9:28 EDT [facility] Blood VENOUS BLOOD / Unknown Venipuncture / Unknown 06/16/2023 8:05 EDT 06/16/2023 8:19 EDT Reza Brito MD HEMATOLOGY & PF4 ORD ERABLES Performing Organization Address [facility] Co de Phone Number [facility] [address] [place] [address] * (ABNORMAL) COMPLETE BLOOD COUNT (06/16/2023 8:05 EDT) WBC 35.99(H) 4.00 - 12.40 K/cmm 06/16/2023 8:25 EDT [facility] RBC 3.11(L) 3.86 - 5.04 M/cmm 06/16/2023 8:25 EDT [facility] Hemoglobin 9.4(L) 11.6 - 15.2 g/dL 06/16/2023 8:25 EDT [facility] HCT 27.4(L) 34.9 - 44.4 % 06/16/2023 8:25 EDT [facility] MCV 88 81 - 98 fL 06/16/2023 8:25 EDT [facility] MCH 30.2 26.7 - 33.3 pg 06/16/2023 8:25 EDT [facility] MCHC 34.3 32.1 - 35.9 g/dL 06/16/2023 8:25 EDT [facility] RDW-CV 16.4(H) <14.7 % 06/16/2023 8:25 EDT [facility] RDW-SD 53.1(H) <50.4 fl 06/16/2023 8:25 EDT [facility] PLT 370 141 - 377 K/cmm 06/16/2023 8:25 EDT [facility] MPV 10.0 9.5 - 12.7 fL 06/16/2023 8:25 EDT [facility] Blood VENOUS BLOOD / Unknown Venipuncture / Unknown 06/16/2023 8:05 EDT 06/16/2023 8:19 EDT Reza Brito MD HEMATOLOGY & PF4 ORD ERABLES [facility] [address] [place] [address] * (ABNORMAL) PHOSPHORUS (06/16/2023 8:05 EDT) Phosphorus 8.0(H) 2.5 - 4.5 mg/dL 06/16/2023 8:39 EDT [facility] Blood VENOUS BLOOD / Unknown Venipuncture / Unknown 06/16/2023 8:05 EDT 06/16/2023 8:19 EDT Reza Brito MD CHEMISTRY & BLOOD GA S ORDERABLES Performing Organization Address City/[facility]/ZIP Co de Phone Number [facility] [address] [place] [address] * CALCIUM, IONIZED (06/16/2023 8:05 EDT) Calcium, Ionized 1.24 1.14 - 1.35 mmol/L 06/16/2023 8:32 EDT [facility] Blood VENOUS BLOOD / Unknown Venipuncture / Unknown 06/16/2023 8:05 EDT 06/16/2023 8:19 EDT Reza Brito MD CHEMISTRY & BLOOD GA S ORDERABLES Performing Organization Address City/[facility]/ZIP Co de Phone Number [facility] [address] [place] [address] * LACTIC ACID (06/16/2023 8:05 EDT) Pathologist [facility] Lactic Acid 1.9 <=2.0 mmol/L 06/16/2023 8:39 EDT [facility] Blood VENOUS BLOOD / Unknown Venipuncture / Unknown 06/16/2023 8:05 EDT 06/16/2023 8:19 EDT Reza Brito MD CHEMISTRY & BLOOD GA S ORDERABLES Performing Organization Address City/[facility]/ZIP Co de Phone Number [facility] [address] [place] [address] * (ABNORMAL) BASIC METABOLIC PANEL (BMP) (06/16/2023 8:05 EDT) Sodium 129(L) 136 - 145 mmol/L 06/16/2023 8:39 EDT [facility] Potassium 5.3(H) 3.5 - 5.0 mmol/L 06/16/2023 8:39 T [facility] Chloride 103 96 - 110 mmol/L 06/16/2023 8:39 T [facility] CO2 Total 17(L) 22 - 32 mmol/L 06/16/2023 8:39 T [facility] Anion Gap 9 5 - 14 mmol/L 06/16/2023 8:39 [facility] Glucose 155(H) 70 - 99 mg/dl 06/16/2023 8:39 EDT [facility] Calcium 9.0 8.5 - 10.5 mg/dL 06/16/2023 8:39 EDT [facility] BUN 39(H) 10 - 26 mg/dL 06/16/2023 8:39 EDT [facility] Creatinine 1.17(H) 0.52 - 1.04 mg/dL 06/16/2023 8:39 EDT [facility] eGFR 56(L) >60 mL/min/1.73 m2 06/16/2023 8:39 EDT [facility] Blood VENOUS BLOOD / Unknown Venipuncture / Unknown 06/16/2023 8:05 EDT 06/16/2023 8:19 EDT Reza Brito MD CHEMISTRY & BLOOD WA S ORDERABLES Performing Organization Address [facility] Co de Phone Number [facility] [address] [place] [address] * (ABNORMAL) TROPONIN I (06/16/2023 5:51 EDT) Troponin I (ng/mL) 2.000(H) <0.034 ng/mL 06/16/2023 6:34 EDT [facility] Blood VENOUS BLOOD / Unknown Venipuncture / Unknown 06/16/2023 5:51 EDT 06/16/2023 5:55 EDT Narrative [facility] - 06/16/2023 6:34 EDT The results of this assay can be falsely lowered due to the consumption of Biotin. Ayden Jennings CHEMISTRY & BLOOD GA S ORDERABLES Performing Organization Address [facility] Hospital/[facility] Co de Phone Number [facility] [address] [place] [address] * EKG 12-LEAD (06/16/2023 5:50 EDT) 06/16/2023 5:50 EDT Narrative [facility] EKG - 06/17/2023 12:45 EDT ? The ? Test Date: ?2023-06-16 Pat Name: ? DELLA BROWNING ? Department: ?? [facility] ? Room: ? M316 Gender: ? Female ? 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 : ?1970 ? Requested By: YI HENSLEY G Order Number: [id number] ? Reading MD: ?? VILMA LAHOUD MD ? Measurements Intervals ?[place] ? Rate: ? 69 ? P: ?33 IA: ? 200 ?QRS: ?17 QRSD: ? 84 [...] Note Vilma Oliveira MD - 06/17/2023 The Test Date: 2023-06-16 Pat Name: DELLA BROWNING Department: [place] [address] Room: M316 Gender: Female President Practicing Urologist: : 1970 Requested By: YI Lara Order Number: [id number] Reading MD: VILMA OLIVEIRA MD Measurements Intervals [place] Rate: 69 P: 33 IA: 200 QRS: 17 QRSD: 84 T: 34 [...] On 06-17-2023 12:45:07 EDT by VILMA BRIONES. Ayden Jennings CARDIAC ECG ORDERABL ES [facility] EKG * (ABNORMAL) DIFFERENTIAL, AUTOMATED MANUAL (06/16/2023 4:57 EDT) % Neutrophils 94.7 % 06/16/2023 6:21 [facility] % Banded Neutrophils 0.9 % 06/16/2023 6:21 [facility] % Lymphocytes 2.6 % 06/16/2023 6:21 [facility] % Monocytes 0.9 % 06/16/2023 6:21 [facility] % Metamyelocytes 0.9 % 06/16/19 6:21 [facility] Vacuolated Neutrophils Present 06/16/2023 6:21 [facility] Absolute Neutrophils 27.43(H) 2.20 - 8.85 K/cmm 06/16/2023 6:21 [facility] Absolute Bands 0.26 K/cmm 06/16/2023 6:21 [facility] Absolute Lymphocytes 0.75(L) 1.09 - 3.30 K/cmm 06/16/2023 6:21 [facility] Absolute Monocytes 0.26 0.10 - 0.80 K/cmm 06/16/2023 6:21 [facility] Absolute Metamyelocytes 0.26(H) <=0.00 K/cmm 06/16/2023 6:21 [facility] Type of Differential: Manual 06/16/2023 6:21 [facility] Blood VENOUS BLOOD / Unknown Venipuncture / Unknown 06/16/2023 4:57 EDT 06/16/2023 5:03 EDT Ayden Jennings HEMATOLOGY & PF4 ORD ERABLES [facility] [address] [place] [address] * (ABNORMAL) COMPLETE BLOOD COUNT AND DIFFERENTIAL (06/16/2023 4:57 EDT) WBC 28.97(H) 4.00 - 12.40 K/cmm 06/16/2023 5:14 [facility] RBC 2.86(L) 3.86 - 5.04 M/cmm 06/16/2023 5:14 [facility] Hemoglobin 8.8(L) 11.6 - 15.2 g/dL 06/16/2023 5:14 [facility] HCT 24.4(L) 34.9 - 44.4 % 06/16/2023 5:14 [facility] MCV 85 81 - 98 fL 06/16/2023 5:14 [facility] MCH 30.8 26.7 - 33.3 pg 06/16/2023 5:14 [facility] MCHC 36.1(H) 32.1 - 35.9 g/dL 06/16/2023 5:14 [facility] RDW-CV 15.9(H) <14.7 % 06/16/2023 5:14 [facility] RDW-SD 49.2 <50.4 fl 06/16/2023 5:14 [facility] PLT 323 141 - 377 K/cmm 06/16/2023 5:14 [facility] MPV 10.0 9.5 - 12.7 fL 06/16/2023 5:14 [facility] Blood VENOUS BLOOD / Unknown Venipuncture / Unknown 06/16/2023 4:57 EDT 06/16/2023 5:03 EDT Ayden Jennings PACKAGES & DNA PROBE ORDERABLES [facility] [address] [place] [address] * (ABNORMAL) BASIC METABOLIC PANEL (BMP) (06/16/2023 4:57 EDT) Sodium 129(L) 136 - 145 mmol/L 06/16/2023 5:55 EDT [facility] Potassium 4.9 3.5 - 5.0 mmol/L 06/16/2023 5:55 EDT [facility] Chloride 103 96 - 110 mmol/L 06/16/2023 5:55 EDT [facility] CO2 Total 16(L) 22 - 32 mmol/L 06/16/2023 5:55 EDT [facility] Anion Gap 10 5 - 14 mmol/L 06/16/2023 5:55 EDT [facility] Glucose 145(H) 70 - 99 mg/dl 06/16/2023 5:55 EDT [facility] Calcium 8.3(L) 8.5 - 10.5 mg/dL 06/16/2023 5:55 EDT [facility] BUN 38(H) 10 - 26 mg/dL 06/16/2023 5:55 T [facility] Creatinine 1.05(H) 0.52 - 1.04 mg/dL 06/16/2023 5:55 EDT [facility] eGFR 64 >60 mL/min/1.73 m2 06/16/2023 5:55 EDT [facility] Blood VENOUS BLOOD / Unknown Venipuncture / Unknown 06/16/2023 4:57 EDT 06/16/2023 5:03 EDT Titus Kenny MD CHEMISTRY & BLOOD GA S ORDERABLES [facility] [address] [place] [address] * (ABNORMAL) POCT GLUCOSE, INTERFACED (06/16/2023 4:56 EDT) Glucose, POC 160(H) 70 - 100 mg/dL 06/16/2023 5:05 EDT [facility] HN LAB POC COMMENT (GLUCOSE) Test Performed by Nursing Services 06/16/2023 5:05 EDT [facility] Blood CAPILLARY BLOOD / Unknown 06/16/2023 4:56 EDT 06/16/2023 5:05 EDT Ayden Jennings POINT OF CARE TEST O RDERABLES Performing Organization Address City/[facility]/ZIP Co de Phone Number [facility] [address] [place] [address] * (ABNORMAL) BASIC METABOLIC PANEL (BMP) (06/16/2023 0:15 EDT) Sodium 130(L) 136 - 145 mmol/L 06/16/2023 1:15 EDT [facility] Potassium 4.7 3.5 - 5.0 mmol/L 06/16/2023 1:15 EDT [facility] Chloride 103 96 - 110 mmol/L 06/16/2023 1:15 T [facility] CO2 Total 16(L) 22 - 32 mmol/L 06/16/2023 1:15 EDT [facility] Anion Gap 11 5 - 14 mmol/L 06/16/2023 1:15 T [facility] Glucose 147(H) 70 - 99 mg/dl 06/16/2023 1:15 EDT [facility] Calcium 8.5 8.5 - 10.5 mg/dL 06/16/2023 1:15 [facility] BUN 37(H) 10 - 26 mg/dL 06/16/2023 1:15 [facility] Creatinine 1.09(H) 0.52 - 1.04 mg/dL 06/16/2023 1:15 [facility] eGFR 61 >60 mL/min/1.73 m2 06/16/2023 1:15 T [facility] Blood VENOUS BLOOD / Unknown Venipuncture / Unknown 06/16/2023 0:15 EDT 06/16/2023 0:18 EDT Titus Kenny MD CHEMISTRY & BLOOD GA S ORDERABLES Performing Organization Address City/[facility]/ZIP Co de Phone Number [facility] [address] [place] [address] * (ABNORMAL) POCT GLUCOSE, INTERFACED (06/16/2023 0:14 EDT) Glucose, POC 164(H) 70 - 100 mg/dL 06/16/2023 4:15 EDT [facility] HN LAB POC COMMENT (GLUCOSE) Test Performed by Nursing Services 06/16/2023 4:15 EDT [facility] Blood CAPILLARY BLOOD / Unknown 06/16/2023 0:14 EDT 06/16/2023 4:15 EDT Ayden G Yi POINT OF CARE TEST O RDERABLES Performing Organization Address [facility]/ZIP Co de Phone Number [facility] [address], [place] [phone] * (ABNORMAL) POCT GLUCOSE, INTERFACED (06/15/2023 20:23 EDT) Glucose, POC 155(H) 70 - 100 mg/dL 06/15/2023 20:24 EDT [facility] HN LAB POC COMMENT (GLUCOSE) Test Performed by Nursing Services 06/15/2023 20:24 EDT [facility] Blood CAPILLARY BLOOD / Unknown 06/15/2023 20:23 EDT 06/15/2023 20:24 EDT Ayden Jane Yi POINT OF CARE TEST O RDERABLES Performing Organization Address [facility] Co de Phone Number [facility] [address], [place] [address] * (ABNORMAL) POCT BLOOD GAS, EG6 I-STAT (06/15/2023 20:07 EDT) pH, Arterial, i-STAT 7.27(L) 7.35 - 7.45 06/15/2023 20:12 EDT [facility] PCO2, Arterial, i-STAT 40 35 - 45 mmHg 06/15/2023 20:12 EDT [facility] pO2, Arterial, i-STAT 70(L) 80 - 105 mmHg 06/15/2023 20:12 EDT [facility] TCO2, Arterial, i-STAT 19(L) 22 - 26 mmol/L 06/15/2023 20:12 EDT [facility] O2 Saturation, Arterial, i-STAT 91(L) 95 - 98 % 06/15/2023 20:12 EDT [facility] Base Excess(+) / Deficit(-), Arterial, i-STAT -8(L) -2 - 3 mmol/L 06/15/2023 20:12 EDT [facility] Blood ARTERIAL BLOOD / Unknown 06/15/2023 20:07 EDT 06/15/2023 20:12 EDT Narrative [facility] - 06/15/2023 20:12 EDT Test Performed by Respiratory For arterial collection, the Laboratory recommends that the Modified Ashutosh test be performed to determine that collateral circulation is present from the ulnar artery in the event that thrombosis of the radial artery should occur. Performance of the Modified Ashutosh test should be documented in the patients' chart Ayden Jennings POINT OF CARE TEST Sunshine CRUZ Performing Organization Address City/[facility]/ZIP Co de Phone Number [facility] [address] [place] [address] * (ABNORMAL) POCT GLUCOSE, INTERFACED (06/15/2023 18:42 EDT) Glucose, POC 117(H) 70 - 100 mg/dL 06/15/2023 18:43 EDT [facility] HN LAB POC COMMENT (GLUCOSE) Test Performed by Nursing Services 06/15/2023 18:43 EDT [facility] Blood CAPILLARY BLOOD / Unknown 06/15/2023 18:42 EDT 06/15/2023 18:43 EDT Ayden Jennings POINT OF CARE TEST O NANCY Performing Organization Address City/[facility]/ZIP Co de Phone Number [facility] [address] [place] [address] * (ABNORMAL) POCT BLOOD GAS, EG6 I-STAT (06/15/2023 17:41 EDT) pH, Arterial, i-STAT 7.22(L) 7.35 - 7.45 06/15/2023 17:45 EDT [facility] PCO2, Arterial, i-STAT 50(H) 35 - 45 mmHg 06/15/2023 17:45 EDT [facility] pO2, Arterial, i-STAT 70(L) 80 - 105 mmHg 06/15/2023 17:45 T [facility] TCO2, Arterial, i-STAT 22 22 - 26 mmol/L 06/15/2023 17:45 T [facility] O2 Saturation, Arterial, i-STAT 90(L) 95 - 98 % 06/15/2023 17:45 [facility] Base Excess(+) / Deficit(-), Arterial, i-STAT -7(L) -2 - 3 mmol/L 06/15/2023 17:45 [facility] Blood ARTERIAL BLOOD / Unknown 06/15/2023 17:41 EDT 06/15/2023 17:45 EDT Narrative [facility] - 06/15/2023 17:45 EDT Test Performed by Respiratory For arterial collection, the Laboratory recommends that the Modified Ashutosh test be performed to determine that collateral circulation is present from the ulnar artery in the event that thrombosis of the radial artery should occur. Performance of the Modified Ashutosh test should be documented in the patients' chart Paulette Hoover MD POINT OF CARE T EST ORDERABLES [facility] [address] [place] [address] * (ABNORMAL) DIFFERENTIAL, AUTOMATED MANUAL (06/15/2023 17:40 EDT) Pathologist [facility] % Neutrophils 77.4 % 06/15/2023 18:30 [facility] % Banded Neutrophils 1.7 % 06/15/2023 18:30 [facility] % Lymphocytes 6.1 % 06/15/2023 18:30 [facility] % Atypical Lymphocytes 0.9 % 06/15/2023 18:30 [facility] % Monocytes 4.4 % 06/15/2023 18:30 [facility] % Eosinophils 1.7 % 06/15/2023 18:30 [facility] % Metamyelocytes 5.2 % 06/15/19 18:30 [facility] % Myelocytes 1.7 % 06/15/2023 18:30 [facility] % Promyelocytes 0.9 % 18:30 [facility] Bryan Cells 2+ 06/15/2023 18:30 [facility] Absolute Neutrophils 28.41(H) 2.20 - 8.85 K/cmm 06/15/2023 18:30 [facility] Absolute Bands 0.62 K/cmm 06/15/2023 18:30 [facility] Absolute Lymphocytes 2.24 1.09 - 3.30 K/cmm 06/15/2023 18:30 [facility] Absolute Atypical Lymphocytes 0.33 K/cmm 06/15/2023 18:30 [facility] Absolute Monocytes 1.61(H) 0.10 - 0.80 K/cmm 06/15/2023 18:30 [facility] Absolute Eosinophils 0.62(H) 0.03 - 0.61 K/cmm 06/15/2023 18:30 [facility] Absolute Metamyelocytes 1.91(H) <=0.00 K/cmm 06/15/2023 18:30 [facility] Absolute Myelocytes 0.62(H) <=0.00 K/cmm 06/15/2023 18:30 [facility] Absolute Promyelocytes 0.33(H) <=0.00 K/cmm 06/15/2023 18:30 [facility] Type of Differential: Manual 06/15/2023 18:30 [facility] Blood VENOUS BLOOD / Unknown Venipuncture / Unknown 06/15/2023 17:40 EDT 06/15/2023 17:47 EDT Ayden Jennings HEMATOLOGY & PF4 ORD ERABLES Performing Organization Address City/[facility]/ZIP Co de Phone Number [facility] [address], [place] [phone] * LACTIC ACID (06/15/2023 17:40 EDT) Lactic Acid 0.7 <=2.0 mmol/L 06/15/2023 17:59 EDT [facility] Blood VENOUS BLOOD / Unknown Venipuncture / Unknown 06/15/2023 17:40 EDT 06/15/2023 17:45 EDT Ayden Jennings CHEMISTRY & BLOOD GA S ORDERABLES Performing Organization Address [facility] de Phone Number [facility] [address], [place] [phone] * (ABNORMAL) COMPLETE BLOOD COUNT AND DIFFERENTIAL (06/15/2023 17:40 EDT) WBC 36.70(H) 4.00 - 12.40 K/cmm 06/15/2023 18:09 [facility] RBC 3.25(L) 3.86 - 5.04 M/cmm 06/15/2023 18:09 [facility] Hemoglobin 10.0(L) 11.6 - 15.2 g/dL 06/15/2023 18:09 [facility] HCT 27.5(L) 34.9 - 44.4 % 06/15/2023 18:09 [facility] MCV 85 81 - 98 fL 06/15/2023 18:09 [facility] MCH 30.8 26.7 - 33.3 pg 06/15/2023 18:09 [facility] MCHC 36.4(H) 32.1 - 35.9 g/dL 06/15/2023 18:09 [facility] RDW-CV 15.9(H) <14.7 % 06/15/2023 18:09 [facility] RDW-SD 48.3 <50.4 fl 06/15/2023 18:09 [facility] PLT 352 141 - 377 K/cmm 06/15/2023 18:09 [facility] MPV 10.3 9.5 - 12.7 fL 06/15/2023 18:09 [facility] Blood VENOUS BLOOD / Unknown Venipuncture / Unknown 06/15/2023 17:40 EDT 06/15/2023 17:47 EDT Ayden Jennings PACKAGES & DNA PROBE ORDERABLES [facility] [address] [place] [address] * (ABNORMAL) BASIC METABOLIC PANEL (BMP) (06/15/2023 17:40 EDT) Sodium 128(L) 136 - 145 mmol/L 06/15/2023 18:01 [facility] Potassium 4.8 3.5 - 5.0 mmol/L 06/15/2023 18:01 [facility] Comment:Slight hemolysis miky ntified, interpret with caution as hemolysis will elevate potassium result. Chloride 102 96 - 110 mmol/L 06/15/2023 18:01 [facility] CO2 Total 17(L) 22 - 32 mmol/L 06/15/2023 18:01 [facility] Anion Gap 9 5 - 14 mmol/L 06/15/2023 18:01 [facility] Glucose 121(H) 70 - 99 mg/dl 06/15/2023 18:01 [facility] Calcium 8.9 8.5 - 10.5 mg/dL 06/15/2023 18:01 [facility] BUN 38(H) 10 - 26 mg/dL 06/15/2023 18:01 [facility] Comment: Slight hemolysis identified, interpret with caution as results may be affected due to hemolysis. Creatinine 1.02 0.52 - 1.04 mg/dL 06/15/2023 18:01 EDT [facility] eGFR 66 >60 mL/min/1.7 3m2 06/15/2023 18:01 EDT [facility] Blood VENOUS BLOOD / Unknown Venipuncture / Unknown 06/15/2023 17:40 EDT 06/15/2023 17:45 EDT Titus Kenny MD CHEMISTRY & BLOOD GA S ORDERABLES Performing Organization Address [facility] Co de Phone Number [facility] [address] [place] [address] * (ABNORMAL) POCT GLUCOSE, INTERFACED (06/15/2023 17:39 EDT) Glucose, POC 131(H) 70 - 100 mg/dL 06/15/2023 17:40 EDT [facility] HN LAB POC COMMENT (GLUCOSE) Test Performed by Nursing Services 06/15/2023 17:40 EDT [facility] Blood CAPILLARY BLOOD / Unknown 06/15/2023 17:39 EDT 06/15/2023 17:40 EDT Ayden Jennings POINT OF CARE TEST O RDERABLES Performing Organization Address City/[facility]/ZIP Co de Phone Number [facility] [address], [place] [phone] * POCT GLUCOSE, INTERFACED (06/15/2023 16:18 EDT) Glucose, POC 97 70 - 100 mg/dL 06/15/2023 16:19 EDT [facility] HN LAB POC COMMENT (GLUCOSE) Test Performed by Nursing Services 06/15/2023 16:19 EDT [facility] Blood CAPILLARY BLOOD / Unknown 06/15/2023 16:18 EDT 06/15/2023 16:19 EDT Ayden Jennings POINT OF CARE TEST O RDERABLES Performing Organization Address City/[facility]/ZIP Co de Phone Number [facility] [address], [place] [phone] * (ABNORMAL) POCT GLUCOSE, INTERFACED (06/15/2023 14:59 EDT) Glucose, POC 117(H) 70 - 100 mg/dL 06/15/2023 15:01 EDT [facility] HN LAB POC COMMENT (GLUCOSE) Test Performed by Nursing Services 06/15/2023 15:01 EDT [facility] Blood CAPILLARY BLOOD / Unknown 06/15/2023 14:59 EDT 06/15/2023 15:01 EDT Ayden Jennings POINT OF CARE TEST O RDERABLES Performing Organization Address [facility] Co de Phone Number [facility] [address], [place] [phone] * (ABNORMAL) POCT GLUCOSE, INTERFACED (06/15/2023 13:53 EDT) Glucose, POC 119(H) 70 - 100 mg/dL 06/15/2023 13:54 EDT [facility] HN LAB POC COMMENT (GLUCOSE) Test Performed by Nursing Services 06/15/2023 13:54 EDT [facility] Blood CAPILLARY BLOOD / Unknown 06/15/2023 13:53 EDT 06/15/2023 13:54 EDT Ayden Jennings POINT OF CARE TEST O RDERABLES Performing Organization Address City/[facility] Co de Phone Number [facility] [address], [place] [phone] * (ABNORMAL) POCT GLUCOSE, INTERFACED (06/15/2023 12:58 EDT) Glucose, POC 103(H) 70 - 100 mg/dL 06/15/2023 12:59 EDT [facility] HN LAB POC COMMENT (GLUCOSE) Test Performed by Nursing Services 06/15/2023 12:59 EDT [facility] Blood CAPILLARY BLOOD / Unknown 06/15/2023 12:58 EDT 06/15/2023 12:59 EDT Ayden Jennings POINT OF CARE TEST O RDERABLES Performing Organization Address [facility]/ZIP Co de Phone Number [facility] [address] [place] [address] * (ABNORMAL) POCT GLUCOSE, INTERFACED (06/15/2023 11:58 EDT) Glucose, POC 111(H) 70 - 100 mg/dL 06/15/2023 11:59 EDT [facility] HN LAB POC COMMENT (GLUCOSE) Test Performed by Nursing Services 06/15/2023 11:59 EDT [facility] Blood CAPILLARY BLOOD / Unknown 06/15/2023 11:58 EDT 06/15/2023 11:59 EDT Ayden Jennings POINT OF CARE TEST O LORENAERAMICHAEL Performing Organization Address [facility] de Phone Number [facility] [address], [place] [id number] * CALCIUM, IONIZED (06/15/2023 11:52 EDT) Calcium, Ionized 1.22 1.14 - 1.35 mmol/L 06/15/2023 12:18 EDT [facility] Comment: Tube not filled to capacity. Ionized calcium results may be falsely decreased. Interpret results with caution. Blood VENOUS BLOOD / Unknown Venipuncture / Unknown 06/15/2023 11:52 EDT 06/15/2023 12:04 EDT Chato Serrano MD CHEMISTRY & BLOOD GA S ORDERABLES Performing Organization Address [facility]/ZIP Co de Phone Number [facility] [address] [place] [address] * (ABNORMAL) BASIC METABOLIC PANEL (BMP) (06/15/2023 11:49 EDT) Sodium 128(L) 136 - 145 mmol/L 06/15/2023 12:43 T [facility] Potassium 4.3 3.5 - 5.0 mmol/L 06/15/2023 12:43 [facility] Chloride 105 96 - 110 mmol/L 06/15/2023 12:43 [facility] CO2 Total 15(L) 22 - 32 mmol/L 06/15/2023 12:43 [facility] Anion Gap 8 5 - 14 mmol/L 06/15/2023 12:43 [facility] Glucose 100(H) 70 - 99 mg/dl 06/15/2023 12:43 [facility] Calcium 9.1 8.5 - 10.5 mg/dL 06/15/2023 12:43 [facility] BUN 37(H) 10 - 26 mg/dL 06/15/2023 12:43 [facility] Creatinine 0.92 0.52 - 1.04 mg/dL 06/15/2023 12:43 [facility] eGFR 75 >60 mL/min/1.73 m2 06/15/2023 12:43 [facility] Blood VENOUS BLOOD / Unknown Venipuncture / Unknown 06/15/2023 11:49 EDT 06/15/2023 12:17 EDT Titus Kenny MD CHEMISTRY & BLOOD GA S ORDERABLES [facility] [address] [place] [address] * (ABNORMAL) POCT GLUCOSE, INTERFACED (06/15/2023 10:58 EDT) Glucose, POC 117(H) 70 - 100 mg/dL 06/15/2023 10:59 EDT [facility] HN LAB POC COMMENT (GLUCOSE) Test Performed by Nursing Services 06/15/2023 10:59 EDT [facility] Blood CAPILLARY BLOOD / Unknown 06/15/2023 10:58 EDT 06/15/2023 10:59 EDT Ayden Jennings POINT OF CARE TEST O RDERABLES [facility] [address] [place] [address] * XR FEEDING TUBE PLACEMENT (06/15/2023 10:41 [...] view is needed, formal films are recommended. [id number] Narrative 06/15/2023 10:51 EDT XR FEEDING TUBE [...] view is needed, formal films are recommended. [id number] Ayden Jennings IMG DIAGNOSTIC IMAGI NG ORDERABLES * (ABNORMAL) POCT GLUCOSE, INTERFACED (06/15/2023 9:56 EDT) Glucose, POC 116(H) 70 - 100 mg/dL 06/15/2023 9:57 EDT [facility] HN LAB POC COMMENT (GLUCOSE) Test Performed by Nursing Services 06/15/2023 9:57 EDT [facility] Blood CAPILLARY BLOOD / Unknown 06/15/2023 9:56 EDT 06/15/2023 9:57 EDT Ayden G Yi POINT OF CARE TEST O RDERABLES Performing Organization Address [facility]/ZIP Co de Phone Number [facility] [address] [place] [address] * (ABNORMAL) POCT GLUCOSE, INTERFACED (06/15/2023 8:43 EDT) Glucose, POC 146(H) 70 - 100 mg/dL 06/15/2023 8:44 EDT [facility] HN LAB POC COMMENT (GLUCOSE) Test Performed by Nursing Services 06/15/2023 8:44 EDT [facility] Blood CAPILLARY BLOOD / Unknown 06/15/2023 8:43 EDT 06/15/2023 8:44 EDT Ayden G Yi POINT OF CARE TEST O RDERABLES Performing Organization Address [facility]/ZIP Co de Phone Number [facility] [address], [place] [phone] * (ABNORMAL) POCT GLUCOSE, INTERFACED (06/15/2023 7:41 EDT) Glucose, POC 164(H) 70 - 100 mg/dL 06/15/2023 7:42 EDT [facility] HN LAB POC COMMENT (GLUCOSE) Test Performed by Nursing Services 06/15/2023 7:42 EDT [facility] Blood CAPILLARY BLOOD / Unknown 06/15/2023 7:41 EDT 06/15/2023 7:42 EDT Paulette Hoover MD POINT OF CARE T EST ORDERABLES Performing Organization Address City/[facility]/ZIP Co de Phone Number [facility] [address] [place] [address] * (ABNORMAL) CALCIUM, IONIZED (06/15/2023 7:21 EDT) Calcium, Ionized 1.05(L) 1.14 - 1.35 mmol/L 06/15/2023 7:33 EDT [facility] Comment: Tube not filled to capacity. Ionized calcium results may be falsely decreased. Interpret results with caution. Blood VENOUS BLOOD / Unknown Venipuncture / Unknown 06/15/2023 7:21 EDT 06/15/2023 7:26 EDT Ayden Alexander MD CHEMISTRY & BLOOD GA S ORDERABLES Performing Organization Address [facility] Co de Phone Number [facility] [address] [place] [phone] * (ABNORMAL) POCT GLUCOSE, INTERFACED (06/15/2023 6:52 EDT) Glucose, POC 190(H) 70 - 100 mg/dL 06/15/2023 6:56 EDT [facility] HN LAB POC COMMENT (GLUCOSE) Test Performed by Nursing Services 06/15/2023 6:56 EDT [facility] Blood CAPILLARY BLOOD / Unknown 06/15/2023 6:52 EDT 06/15/2023 6:56 EDT Paulette Hoover MD POINT OF CARE T EST ORDERABLES Performing Organization Address City/[facility]/ZIP Co de Phone Number [facility] [address], [place] [phone] * (ABNORMAL) POCT GLUCOSE, INTERFACED (06/15/2023 5:55 EDT) Glucose, POC 206(H) 70 - 100 mg/dL 06/15/2023 5:59 EDT [facility] HN LAB POC COMMENT (GLUCOSE) Test Performed by Nursing Services 06/15/2023 5:59 EDT [facility] Blood CAPILLARY BLOOD / Unknown 06/15/2023 5:55 EDT 06/15/2023 5:59 EDT Paulette Hoover MD POINT OF CARE T EST ORDERABLES [facility] [address] [place] [phone] * (ABNORMAL) POCT BLOOD GAS, EG6 I-STAT (06/15/2023 5:25 EDT) pH, Arterial, i-STAT 7.36 7.35 - 7.45 06/15/2023 5:30 EDT [facility] PCO2, Arterial, i-STAT 31(L) 35 - 45 mmHg 06/15/2023 5:30 EDT [facility] pO2, Arterial, i-STAT 185(H) 80 - 105 mmHg 06/15/2023 5:30 EDT [facility] TCO2, Arterial, i-STAT 18(L) 22 - 26 mmol/L 06/15/2023 5:30 EDT [facility] O2 Saturation, Arterial, i-STAT 100(H) 95 - 98 % 06/15/2023 5:30 EDT [facility] Base Excess(+) / Deficit(-), Arterial, i-STAT -7(L) -2 - 3 mmol/L 06/15/2023 5:30 EDT [facility] Blood VENOUS BLOOD / Unknown 06/15/2023 5:25 EDT 06/15/2023 5:30 EDT Narrative [facility] - 06/15/2023 5:30 EDT Test Performed by Respiratory For arterial collection, the Laboratory recommends that the Modified Ashutosh test be performed to determine that collateral circulation is present from the ulnar artery in the event that thrombosis of the radial artery should occur. Performance of the Modified Ashutosh test should be documented in the patients' chart Carlos Jennings DO POINT OF CARE TEST O RDERABLES Performing Organization Address City/[facility]/ZIP Co de Phone Number [facility] [address] [place] [address] * (ABNORMAL) POCT GLUCOSE, INTERFACED (06/15/2023 5:10 EDT) Glucose, POC 222(H) 70 - 100 mg/dL 06/15/2023 5:54 EDT [facility] HN LAB POC COMMENT (GLUCOSE) Test Performed by Nursing Services 06/15/2023 5:54 EDT [facility] Blood CAPILLARY BLOOD / Unknown 06/15/2023 5:10 EDT 06/15/2023 5:54 EDT Paulette Hoover MD POINT OF CARE T EST ORDERABLES Performing Organization Address [facility] Co de Phone Number [facility] [address] [place] [phone] * (ABNORMAL) DIFFERENTIAL, AUTOMATED MANUAL (06/15/2023 5:10 EDT) [facility] % Neutrophils 92.2 % 06/15/2023 7:04 [facility] % Banded Neutrophils 1.7 % 06/15/2023 7:04 [facility] % Lymphocytes 2.6 % 06/15/2023 7:04 [facility] % Monocytes 1.7 % 06/15/2023 7:04 [facility] % Metamyelocytes 0.9 % 06/15/19 7:04 [facility] % Myelocytes 0.9 % 06/15/2023 7:04 [facility] Absolute Neutrophils 35.40(H) 2.20 - 8.85 K/cmm 06/15/2023 7:04 [facility] Absolute Bands 0.65 K/cmm 06/15/2023 7:04 [facility] Absolute Lymphocytes 1.00(L) 1.09 - 3.30 K/cmm 06/15/2023 7:04 [facility] Absolute Monocytes 0.65 0.10 - 0.80 K/cmm 06/15/2023 7:04 [facility] Absolute Metamyelocytes 0.35(H) <=0.00 K/cmm 06/15/2023 7:04 [facility] Absolute Myelocytes 0.35(H) <=0.00 K/cmm 06/15/2023 7:04 [facility] Type of Differential: Manual 06/15/2023 7:04 [facility] Blood VENOUS BLOOD / Unknown Venipuncture / Unknown 06/15/2023 5:10 EDT 06/15/2023 5:17 EDT Carlos Jennings DO HEMATOLOGY & PF4 ORD ERABLES Performing Organization Address City/State/[facility] Co de Phone Number [facility] [address] [place] [phone] * (ABNORMAL) COMPLETE BLOOD COUNT AND DIFFERENTIAL (06/15/2023 5:10 EDT) WBC 38.40(H) 4.00 - 12.40 K/cmm 06/15/2023 5:29 [facility] RBC 3.24(L) 3.86 - 5.04 M/cmm 06/15/2023 5:29 [facility] Hemoglobin 9.9(L) 11.6 - 15.2 g/dL 06/15/2023 5:29 [facility] HCT 27.0(L) 34.9 - 44.4 % 06/15/2023 5:29 [facility] MCV 83 81 - 98 fL 06/15/2023 5:29 [facility] MCH 30.6 26.7 - 33.3 pg 06/15/2023 5:29 [facility] MCHC 36.7(H) 32.1 - 35.9 g/dL 06/15/2023 5:29 EDT [facility] RDW-CV 14.9(H) <14.7 % 06/15/2023 5:29 EDT [facility] RDW-SD 45.6 <50.4 fl 06/15/2023 5:29 EDT [facility] PLT 329 141 - 377 K/cmm 06/15/2023 5:29 EDT [facility] MPV 10.2 9.5 - 12.7 fL 06/15/2023 5:29 EDT [facility] Blood VENOUS BLOOD / Unknown Venipuncture / Unknown 06/15/2023 5:10 EDT 06/15/2023 5:17 EDT Carlos Jennings DO PACKAGES & DNA PROBE ORDERABLES Performing Organization Address City/[facility] Co de Phone Number [facility] [address] [place] [address] * (ABNORMAL) PHOSPHORUS (06/15/2023 5:10 EDT) Phosphorus 6.0(H) 2.5 - 4.5 mg/dL 06/15/2023 5:36 EDT [facility] Blood VENOUS BLOOD / Unknown Venipuncture / Unknown 06/15/2023 5:10 EDT 06/15/2023 5:17 EDT Carlos Jennings DO CHEMISTRY & BLOOD GA S ORDERABLES Performing Organization Address City/[facility]/ZIP Co de Phone Number [facility] [address], [place] [phone] * MAGNESIUM (06/15/2023 5:10 EDT) Magnesium 1.9 1.7 - 2.8 mg/dL 06/15/2023 5:36 EDT [facility] Blood VENOUS BLOOD / Unknown Venipuncture / Unknown 06/15/2023 5:10 EDT 06/15/2023 5:17 EDT Carlos Jennings DO CHEMISTRY & BLOOD WA S ORDERABLES Performing Organization Address City/[facility]/ZIP Co de Phone Number [facility] [address] [place] [address] * LACTIC ACID (06/15/2023 5:10 EDT) Lactic Acid 0.9 <=2.0 mmol/L 06/15/2023 5:29 EDT [facility] Blood VENOUS BLOOD / Unknown Venipuncture / Unknown 06/15/2023 5:10 EDT 06/15/2023 5:16 EDT Carlos Jennings DO CHEMISTRY & BLOOD WA S ORDERABLES Performing Organization Address [facility] Co de Phone Number [facility] [address] [place] [address] * (ABNORMAL) BASIC METABOLIC PANEL (BMP) (06/15/2023 5:10 EDT) Sodium 125(L) 136 - 145 mmol/L 06/15/2023 5:36 T [facility] Potassium 4.3 3.5 - 5.0 mmol/L 06/15/2023 5:36 [facility] Chloride 102 96 - 110 mmol/L 06/15/2023 5:36 [facility] CO2 Total 16(L) 22 - 32 mmol/L 06/15/2023 5:36 [facility] Anion Gap 7 5 - 14 mmol/L 06/15/2023 5:36 [facility] Glucose 200(H) 70 - 99 mg/dl 06/15/2023 5:36 [facility] Calcium 7.5(L) 8.5 - 10.5 mg/dL 06/15/2023 5:36 [facility] BUN 38(H) 10 - 26 mg/dL 06/15/2023 5:36 [facility] Creatinine 0.97 0.52 - 1.04 mg/dL 06/15/2023 5:36 EDT [facility] eGFR 70 >60 mL/min/1.73 m2 06/15/2023 5:36 EDT [facility] Blood VENOUS BLOOD / Unknown Venipuncture / Unknown 06/15/2023 5:10 EDT 06/15/2023 5:17 EDT Titus Kenny MD CHEMISTRY & BLOOD GA S ORDERABLES Performing Organization Address [facility] Co de Phone Number [facility] [address] [place] [address] * VANCOMYCIN, RANDOM (06/15/2023 5:10 EDT) Pathologist [facility] Vancomycin Random 14.3 See Note ??g/mL 06/15/2023 5:43 EDT [facility] Comment: NOTE: Reference Ranges: Trough: ??10.0 - 20.0 ug/mL Peak: ??25.0 - 50.0 ug/mL Blood VENOUS BLOOD / Unknown Venipuncture / Unknown 06/15/2023 5:10 EDT 06/15/2023 5:17 EDT Paulette Hoover MD CHEMISTRY & BLO OD GAS ORDERABLES Performing Organization Address [facility] Co de Phone Number [facility] [address] [place] [address] * (ABNORMAL) POCT GLUCOSE, INTERFACED (06/15/2023 4:04 EDT) Glucose, POC 251(H) 70 - 100 mg/dL 06/15/2023 4:05 EDT [facility] HN LAB POC COMMENT (GLUCOSE) Test Performed by Nursing Services 06/15/2023 4:05 EDT [facility] Blood CAPILLARY BLOOD / Unknown 06/15/2023 4:04 EDT 06/15/2023 4:05 EDT Paulette Hoover MD POINT OF CARE T EST ORDERABLES Performing Organization Address [facility] Co de Phone Number [facility] [address] [place] [address] * (ABNORMAL) POCT GLUCOSE, INTERFACED (06/15/2023 3:35 EDT) Glucose, POC 237(H) 70 - 100 mg/dL 06/15/2023 3:36 EDT [facility] HN LAB POC COMMENT (GLUCOSE) Test Performed by Nursing Services 06/15/2023 3:36 EDT [facility] Blood CAPILLARY BLOOD / Unknown 06/15/2023 3:35 EDT 06/15/2023 3:36 EDT Paulette Hoover MD POINT OF CARE T EST ORDERABLES Performing Organization Address [facility] Co de Phone Number [facility] [address] [place] [address] * EKG 12-LEAD (06/15/2023 1:38 EDT) 06/15/2023 1:38 EDT Narrative [facility] EKG - 06/20/2023 9:25 EDT ? The ? Test Date: ?2023-06-15 Pat Name: ? DELLA BROWNING ? Department: ?? [facility] ? Room: ? M316 Gender: ? Female ? 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 : ?1970 ? Requested By: YI GONZALEZ Order Number: [id number] ? Reading MD: ?? HALIE FAIR MD ? Measurements Intervals ?[place] ? Rate: ? 88 ? P: ?49 IA: ? 195 ?QRS: ?30 QRSD: ? 85 [...] Electronically Signed On 06-20-2023 09:25:55 EDT by HALIE FAIR MD. Procedure Note Halie Fair MD - 06/20/2023 The Test Date: 2023-06-15 Pat Name: DELLA BROWNING Department: [place] [address] Room: [facility] Gender: Female President Practicing Urologist: : 1970 Requested By: YI GONZALEZ Order Number: [id number] Reading MD: HALIE FAIR MD Measurements Intervals [place] Rate: 88 P: 49 IA: 195 QRS: 30 QRSD: 85 T: 32 [...] Electronically Signed On 06-20-2023 09:25:55 EDT by HALIE BRISENO. Carlos Jennings DO CARDIAC ECG ORDERABL ES [facility] EKG * XR CHEST PORTABLE LINE PLACEMENT [...] above interpretation and agree with the findings. [id number] Narrative 06/15/2023 13:05 EDT XR CHEST PORTABLE [...] of atelectasis. Apices not completely included in [id number]. The pulmonary vasculature is unremarkable. Pleura: Suboptimally evaluated on nonupright radiograph, but no visible abnormality. Cardiac and mediastinal contours: Within normal limits for technique. Soft tissues and extrathoracic findings: No significant abnormalities. Bones: No obvious displaced rib fractures. Hira Franklin MD IMG DIAGNOSTIC IMAGI NG ORDERABLES * PROTIME (06/15/2023 1:10 EDT) [facility] I.N.R. 1.0 0.9 - 1.1 Ratio 06/15/2023 1:57 EDT [facility] Pro Time 11.4 9.7 - 12.8 secs 06/15/2023 1:57 EDT [facility] Blood VENOUS BLOOD / Unknown Venipuncture / Unknown 06/15/2023 1:10 EDT 06/15/2023 1:35 EDT Narrative [facility] - 06/15/2023 1:57 EDT Moderate Intensity Coumadin INR = 2.0-3.0 Adjustments in anticoagulant therapy dose should be based on the INR and NOT on the Protime. Carlos Jennings DO HEMATOLOGY & PF4 ORD ERABLES [facility] [address] [place] [address] * PTT (06/15/2023 1:10 EDT) PTT 27 26 - 37 secs 06/15/2023 1:57 EDT [facility] Blood VENOUS BLOOD / Unknown Venipuncture / Unknown 06/15/2023 1:10 EDT 06/15/2023 1:35 EDT Carlos Jennings DO HEMATOLOGY & PF4 ORD ERABLES Performing Organization Address [facility] Co de Phone Number [facility] [address] [place] [address] * (ABNORMAL) POCT GLUCOSE, INTERFACED (06/15/2023 1:07 EDT) Glucose, POC 263(H) 70 - 100 mg/dL 06/15/2023 1:10 EDT [facility] HN LAB POC COMMENT (GLUCOSE) Test Performed by Nursing Services 06/15/2023 1:10 EDT [facility] Blood CAPILLARY BLOOD / Unknown 06/15/2023 1:07 EDT 06/15/2023 1:10 EDT Ayden Alexander MD POINT OF CARE TEST O RDERABLES Performing Organization Address [facility] Co de Phone Number [facility] [address] [place] [address] * (ABNORMAL) DIFFERENTIAL, AUTOMATED MANUAL (06/15/2023 1:01 EDT) % Neutrophils 75.9 % 06/15/2023 2:09 EDT [facility] % Banded Neutrophils 6.9 % 06/15/2023 2:09 [facility] % Lymphocytes 3.5 % 06/15/2023 2:09 [facility] % Monocytes 3.4 % 06/15/2023 2:09 [facility] % Eosinophils 0.9 % 06/15/2023 2:09 [facility] % Basophils 0.9 % 06/15/2023 2:09 [facility] % Metamyelocytes 3.4 % 06/15/19 2:09 [facility] % Myelocytes 3.4 % 06/15/2023 2:09 [facility] % Promyelocytes 1.7 % 2:09 [facility] Hypersegmented Neutrophils Present 06/15/2023 2:09 [facility] Vacuolated Neutrophils Present 06/15/2023 2:09 [facility] Absolute Neutrophils 37.84(H) 2.20 - 8.85 K/cmm 06/15/2023 2:09 [facility] Absolute Bands 3.44 K/cmm 06/15/2023 2:09 [facility] Absolute Lymphocytes 1.74 1.09 - 3.30 K/cmm 06/15/2023 2:09 [facility] Absolute Monocytes 1.69(H) 0.10 - 0.80 K/cmm 06/15/2023 2:09 [facility] Absolute Eosinophils 0.45 0.03 - 0.61 K/cmm 06/15/2023 2:09 [facility] ABS Basophils 0.45(H) 0.01 - 0.11 K/cmm 06/15/2023 2:09 [facility] Absolute Metamyelocytes 1.69(H) <=0.00 K/cmm 06/15/2023 2:09 [facility] Absolute Myelocytes 1.69(H) <=0.00 K/cmm 06/15/2023 2:09 [facility] Absolute Promyelocytes 0.85(H) <=0.00 K/cmm 06/15/2023 2:09 [facility] Comment 06/15/2023 2:09 [facility] Comment:Differential perform ed on albumin made slide Smudge Cells Present 06/15/2023 2:09 [facility] Type of Differential: Manual 06/15/2023 2:09 [facility] Blood VENOUS BLOOD / Unknown Venipuncture / Unknown 06/15/2023 1:01 EDT 06/15/2023 1:08 EDT Tai Azar MD HEMATOLOGY & PF4 OR DERABLES [facility] [address] [place] [address] * (ABNORMAL) POCT BLOOD GAS, CG8 I-STAT (06/15/2023 1:01 EDT) pH, Arterial, i-STAT 7.27(L) 7.35 - 7.45 06/15/2023 1:06 [facility] PCO2, Arterial, i-STAT 43 35 - 45 mmHg 06/15/2023 1:06 [facility] pO2, Arterial, i-STAT 35(L) 80 - 105 mmHg 06/15/2023 1:06 [facility] TCO2, Arterial, i-STAT 21(L) 22 - 26 mmol/L 06/15/2023 1:06 [facility] O2 Saturation, Arterial, i-STAT 58(L) 95 - 98 % 06/15/2023 1:06 [facility] Sodium, Arterial, i-STAT 128(L) 136 - 145 mmol/L 06/15/2023 1:06 [facility] Potassium, Arterial, i-STAT 4.5 3.5 - 5 mmol/L 06/15/2023 1:06 [facility] Glucose, Arterial, i-STAT 254(H) 70 - 100 mg/dL 06/15/2023 1:06 [facility] Hematocrit, Arterial, i-STAT 34(L) 35 - 44 %PCV 06/15/2023 1:06 [facility] Ionized Calcium, Arterial, i-STAT 1.24 1.12 - 1.32 mmol/L 06/15/2023 1:06 [facility] Base Excess(+) / Deficit(-), Arterial, i-STAT -7(L) -2 - 3 mmol/L 06/15/2023 1:06 [facility] Blood ARTERIAL BLOOD / Unknown 06/15/2023 1:01 EDT 06/15/2023 1:06 EDT Narrative [facility] - 06/15/2023 1:06 EDT Test Performed by Respiratory For arterial collection, the Laboratory recommends that the Modified Ashutosh test be performed to determine that collateral circulation is present from the ulnar artery in the event that thrombosis of the radial artery should occur. Performance of the Modified Ashutosh test should be documented in the patients' chart Paulette Hoover MD POINT OF CARE T EST ORDERABLES Performing Organization Address City/[facility]/ZIP Co de Phone Number [facility] [address] [place] [address] * LACTIC ACID (06/15/2023 1:01 EDT) Lactic Acid 2.0 <=2.0 mmol/L 06/15/2023 1:19 EDT [facility] Blood VENOUS BLOOD / Unknown Venipuncture / Unknown 06/15/2023 1:01 EDT 06/15/2023 1:07 EDT Carlos Jennings DO CHEMISTRY & BLOOD GA S ORDERABLES Performing Organization Address City/[facility]/ZIP Co de Phone Number [facility] [address], [place] [id number] * (ABNORMAL) COMPLETE BLOOD COUNT AND DIFFERENTIAL (06/15/2023 1:01 EDT) WBC 49.85(H) 4.00 - 12.40 K/cmm 06/15/2023 1:16 EDT [facility] RBC 3.64(L) 3.86 - 5.04 M/cmm 06/15/2023 1:16 T [facility] Hemoglobin 11.1(L) 11.6 - 15.2 g/dL 06/15/2023 1:16 EDT [facility] HCT 30.6(L) 34.9 - 44.4 % 06/15/2023 1:16 [facility] MCV 84 81 - 98 fL 06/15/2023 1:16 [facility] MCH 30.5 26.7 - 33.3 pg 06/15/2023 1:16 [facility] MCHC 36.3(H) 32.1 - 35.9 g/dL 06/15/2023 1:16 [facility] RDW-CV 14.7(H) <14.7 % 06/15/2023 1:16 [facility] RDW-SD 45.3 <50.4 fl 06/15/2023 1:16 [facility] PLT 388(H) 141 - 377 K/cmm 06/15/2023 1:16 [facility] MPV 10.2 9.5 - 12.7 fL 06/15/2023 1:16 [facility] Blood VENOUS BLOOD / Unknown Venipuncture / Unknown 06/15/2023 1:01 EDT 06/15/2023 1:08 EDT Tai Azar MD PACKAGES & DNA PROB E ORDERABLES Performing Organization Address City/State/[facility] Co de Phone Number [facility] [address] [place] [address] * (ABNORMAL) BASIC METABOLIC PANEL (BMP) (06/15/2023 1:01 EDT) Sodium 126(L) 136 - 145 mmol/L 06/15/2023 1:19 [facility] Potassium 4.5 3.5 - 5.0 mmol/L 06/15/2023 1:19 [facility] Chloride 99 96 - 110 mmol/L 06/15/2023 1:19 [facility] CO2 Total 20(L) 22 - 32 mmol/L 06/15/2023 1:19 [facility] Anion Gap 7 5 - 14 mmol/L 06/15/2023 1:19 [facility] Glucose 243(H) 70 - 99 mg/dl 06/15/2023 1:19 EDT [facility] Calcium 7.9(L) 8.5 - 10.5 mg/dL 06/15/2023 1:19 EDT [facility] BUN 38(H) 10 - 26 mg/dL 06/15/2023 1:19 EDT [facility] Creatinine 0.93 0.52 - 1.04 mg/dL 06/15/2023 1:19 EDT [facility] eGFR 74 >60 mL/min/1.73 m2 06/15/2023 1:19 EDT [facility] Blood VENOUS BLOOD / Unknown Venipuncture / Unknown 06/15/2023 1:01 EDT 06/15/2023 1:07 EDT Titus Kenny MD CHEMISTRY & BLOOD GA S ORDERABLES Performing Organization Address City/State/[facility] Co de Phone Number [facility] [address] [place] [address] * TRANSFUSE RED BLOOD CELLS (06/14/2023 22:57 EDT) Blood Tra Branham MD NURSING TREATMENT - BLOOD ADMINISTRATION * (ABNORMAL) ANAEROBE CULTURE/SMEAR(INC. AEROBES), OTHER (06/14/2023 22:51 EDT) Organism ID Moderate mixed gram positive growth including anaerobes. Bacteroides fragilis group is not present. 06/19/2023 8:08 EDT [facility] Smear Moderate Neutrophils Present(A) 06/19/2023 8:08 EDT [facility] Smear Moderate Mixed gram positive and gram negative organisms(A) 06/19/2023 8:08 EDT [facility] Comment:Results reviewed by supervisory staff. Tissue SOFT TISSUE / Unknown 06/14/2023 22:51 EDT 06/14/2023 23:34 EDT Moo Monique MD MICROBIOLOGY - GENE RAL ORDERABLES Performing Organization Address City/[facility]/ZIP Co de Phone Number [facility] [address] [place] [address] * FUNGUS CULTURE/SMEAR (06/14/2023 22:51 EDT) Organism ID No fungi isolated 07/12/2023 11:15 EDT [facility] Fungal Smear No Fungi Seen 07/12/2023 11:15 EDT [facility] Tissue SOFT TISSUE / Unknown 06/14/2023 22:51 EDT 06/14/2023 23:34 EDT Moo Monique MD MICROBIOLOGY - GENE RAL ORDERABLES Performing Organization Address [facility]/ZIP Co de Phone Number [facility] [address] [place] [address] * TRANSFUSE RED BLOOD CELLS (06/14/2023 22:35 EDT) Blood Titus Kenny MD NURSING TREATMENT - BLOOD ADMINISTRATION * TRANSFUSE RED BLOOD CELLS (06/14/2023 22:35 EDT) Blood Titus Kenny MD NURSING TREATMENT - BLOOD ADMINISTRATION * (ABNORMAL) POCT GLUCOSE, INTERFACED (06/14/2023 22:00 EDT) Glucose, POC 170(H) 70 - 100 mg/dL 06/14/2023 22:02 EDT [facility] HN LAB POC COMMENT (GLUCOSE) Test Performed by Nursing Services 06/14/2023 22:02 EDT [facility] Blood CAPILLARY BLOOD / Unknown 06/14/2023 22:00 EDT 06/14/2023 22:02 EDT Ayden Alexander MD POINT OF CARE TEST O RDERABLES Performing Organization Address City/[facility]/ZIP Co de Phone Number [facility] [address], [place] [phone] * PREPARE RED BLOOD CELLS (06/14/2023 19:55 EDT) Product Code [id number] [facility] BLOOD BANK Donor Number [id number] [facility] BLOOD BANK Unit [facility] Unit Rh POS [facility] BLOOD BANK Unit Status TR^Transfuse [facility] BLOOD BANK Product Expiration Date [id number] [facility] Unit Blood Type Code 5100 [facility] Volume [facility] BLOOD BANK Coding System [id number] [facility] BLOOD BANK 06/14/2023 19:5 5 EDT Carlos Jennings BLOOD BANK ORDERABLE S Performing Organization Address City/[facility]/ZIP Co de Phone Number [facility] [address] [facility] [place] [address] * PREPARE RED BLOOD CELLS (06/14/2023 19:55 EDT) Product Code [id number] [facility] BLOOD BANK Donor Number [id number] [facility] BLOOD BANK Unit ABO O [facility] BLOOD BANK Unit Rh [facility] Unit Status RE^Released From Crossmatch [facility] B[facility] Product Expiration Date [id number] [facility] Unit Blood Type Code 5100 [facility] B[facility] Volume 297 [facility] BLOOD BANK Coding System [id number] [facility] BLOOD BANK 06/14/2023 19:5 5 EDT Carlos Jennings DO BLOOD BANK ORDERABLE S [facility] [address] [facility] [place] [address] * PREPARE RED BLOOD CELLS (06/14/2023 19:55 EDT) Product Code [id number] [facility] BLOOD BANK Donor Number [id number] U [facility] BLOOD BANK Unit [facility] B[facility]OD [facility] Unit Rh POS [facility] BLOOD [facility] Unit Status RE^Released From [employer]match [facility] BLOOD [facility] Product Expiration Date [id number] [facility] BLOOD [facility] Unit Blood Type Code 5100 [facility] BLOOD [facility] Volume 288 [facility] BLOOD BANK Coding System [id number] [facility] BLOOD BANK 06/14/2023 19:5 5 EDT Carlos Jennings BLOOD BANK ORDERABLE S [facility] BLOOD [facility]ANK [address] [place] [address] * PREPARE RED BLOOD CELLS (06/14/2023 19:55 EDT) Product Code [id number] [facility] BLOOD BANK Donor Number [id number] [facility] BLOOD BANK Unit ABO O [facility] BLOOD B[facility] Unit Rh POS [facility] BLOOD BANK Unit Status TR^Transfuse [facility] BLOOD BANK Product Expiration Date [id number] [facility] BLOOD BANK Unit Blood Type Code 5100 [facility] BLOOD [facility]ANK Volume 289 [facility] BLOOD BANK Coding System [id number] [facility] BLOOD BANK Blood 06/14/2023 19:5 5 EDT Carloslong Jennings BLOOD BANK ORDERABLE S [facility] BLOOD [facility]ANK [address] [place] [address] * PREPARE RED BLOOD CELLS (06/14/2023 18:47 EDT) Product Code [id number] [facility] BLOOD BANK Donor Number [id number] [facility] BLOOD BANK Unit [facility] B[facility]OD [facility] Unit Rh POS [facility] BLOOD BANK Unit Status TR^Transfuse [facility] BLOOD BANK Product Expiration Date [id number] [facility] BLOOD BANK Unit Blood Type Code 5100 [facility] BLOOD BANK Volume 289 [facility] BLOOD BANK Coding System [id number] [facility] BLOOD BANK 06/14/2023 18:4 7 EDT Paulette Hoover MD BLOOD BANK ORDKirby STEVENSSHAVON Performing Organization Address [facility] de Phone Number [facility] [address] [facility] [place] [place] [address] * PREPARE RED BLOOD CELLS (06/14/2023 18:47 EDT) Product Code [id number] [facility] BLOOD BANK Donor Number [id number] U [facility] BLOOD BANK Unit ABO O [facility] BLOOD BANK Unit Rh POS [facility] BLOOD BANK Unit Status RE^Released From [employer]match [facility] BLOOD [facility] Product Expiration Date [id number] [facility] BLOOD [facility] Unit Blood Type Code 5100 [facility] BLOOD [facility] Volume 292 [facility] BLOOD BANK Coding System [id number] [facility] BLOOD BANK Blood 06/14/2023 18:4 7 EDT Paulette Hoover MD BLOOD BANK TIFFANY KELSEY Performing Organization Address [facility] de Phone Number [facility] [address] [place] [address] * (ABNORMAL) DIFFERENTIAL, AUTOMATED MANUAL (06/14/2023 18:42 EDT) % Neutrophils 93.1 % 06/14/2023 19:36 EDT [facility] % Banded Neutrophils 2.6 % 06/14/2023 19:36 EDT [facility] % Atypical Lymphocytes 0.8 % 06/14/2023 19:36 EDT [facility] % Monocytes 2.6 % 06/14/2023 19:36 EDT [facility] % Metamyelocytes 0.9 % 06/14/19 19:36 [facility] Schistocytes Increased schistocytes are seen but less than 1% (1+) of the RBCs 06/14/2023 19:36 [facility] Bryan Cells 2+ 06/14/2023 19:36 [facility] Basophilic Stippling Present in <2% of RBCs 06/14/2023 19:36 [facility] Dohle Bodies Present 06/14/2023 19:36 [facility] Toxic Granulation Present 024 19:36 [facility] Large Platelets Present K/cmm 19:36 [facility] Clumped Platelets Few platelet clumps present 06/14/2023 19:36 [facility] Absolute Neutrophils 29.75(H) 2.20 - 8.85 K/cmm 06/14/2023 19:36 [facility] Absolute Bands 0.83 K/cmm 06/14/2023 19:36 [facility] Absolute Atypical Lymphocytes 0.26 K/cmm 06/14/2023 19:36 [facility] Absolute Monocytes 0.83(H) 0.10 - 0.80 K/cmm 06/14/2023 19:36 [facility] Absolute Metamyelocytes 0.29(H) <=0.00 K/cmm 06/14/2023 19:36 [facility] Type of Differential: Manual 06/14/2023 19:36 [facility] Blood VENOUS BLOOD / Unknown Venipuncture / Unknown 06/14/2023 18:42 EDT 06/14/2023 18:47 EDT Tai Azar MD HEMATOLOGY & PF4 OR DERABLES [facility] [address] [place] [address] * (ABNORMAL) COMPLETE BLOOD COUNT AND DIFFERENTIAL (06/14/2023 18:42 EDT) Pathologist [facility] WBC 31.96(H) 4.00 - 12.40 K/cmm 06/14/2023 18:57 EDT [facility] RBC 2.28(L) 3.86 - 5.04 M/cmm 06/14/2023 18:57 [facility] Hemoglobin 7.1(L) 11.6 - 15.2 g/dL 06/14/2023 18:57 T [facility] HCT 19.8(LL) 34.9 - 44.4 % 06/14/2023 18:57 T [facility] MCV 87 81 - 98 fL 06/14/2023 18:57 T [facility] MCH 31.1 26.7 - 33.3 pg 06/14/2023 18:57 [facility] MCHC 35.9 32.1 - 35.9 g/dL 06/14/2023 18:57 [facility] RDW-CV 14.8(H) <14.7 % 06/14/2023 18:57 [facility] RDW-SD 47.3 <50.4 fl 06/14/2023 18:57 [facility] PLT 354 141 - 377 K/cmm 06/14/2023 18:57 [facility] MPV 10.4 9.5 - 12.7 fL 06/14/2023 18:57 [facility] Blood VENOUS BLOOD / Unknown Venipuncture / Unknown 06/14/2023 18:42 EDT 06/14/2023 18:47 EDT Tai Azar MD PACKAGES & DNA PROB E ORDERABLES [facility] [address] [place] [address] * (ABNORMAL) BASIC METABOLIC PANEL (BMP) (06/14/2023 17:27 EDT) Pathologist [facility] Sodium 121(LL) 136 - 145 mmol/L 06/14/2023 17:52 [facility] Potassium 4.2 3.5 - 5.0 mmol/L 06/14/2023 17:52 [facility] Chloride 98 96 - 110 mmol/L 06/14/2023 17:52 [facility] CO2 Total 16(L) 22 - 32 mmol/L 06/14/2023 17:52 [facility] Anion Gap 7 5 - 14 mmol/L 06/14/2023 17:52 [facility] Glucose 185(H) 70 - 99 mg/dl 06/14/2023 17:52 [facility] Calcium 6.8(L) 8.5 - 10.5 mg/dL 06/14/2023 17:52 [facility] BUN 41(H) 10 - 26 mg/dL 06/14/2023 17:52 [facility] Creatinine 0.98 0.52 - 1.04 mg/dL 06/14/2023 17:52 [facility] eGFR 69 >60 mL/min/1.73 m2 06/14/2023 17:52 [facility] Blood VENOUS BLOOD / Unknown Venipuncture / Unknown 06/14/2023 17:27 EDT 06/14/2023 17:31 EDT Titus Kenny MD CHEMISTRY & BLOOD GA S ORDERABLES Performing Organization Address City/State/[facility] Co de Phone Number [facility] [address] [place] [phone] * (ABNORMAL) POCT GLUCOSE, INTERFACED (06/14/2023 17:25 EDT) Glucose, POC 217(H) 70 - 100 mg/dL 06/14/2023 17:26 EDT [facility] HN LAB POC COMMENT (GLUCOSE) Test Performed by Nursing Services 06/14/2023 17:26 [facility] Blood CAPILLARY BLOOD / Unknown 06/14/2023 17:25 EDT 06/14/2023 17:26 EDT Ayden Alexander MD POINT OF CARE TEST O RDERABLES Performing Organization Address [facility] Co de Phone Number [facility] [address] [place] [address] * PREPARE RED BLOOD CELLS (06/14/2023 15:17 EDT) Product Code [id number] [facility] BLOOD BANK Donor Number [id number] U [facility] BLOOD BANK Unit ABO O [facility] BLOOD BANK Unit Rh POS [facility] BLOOD BANK Unit Status TR^Transfuse [facility] BLOOD BANK Product Expiration Date [id number] [facility] BLOOD BANK Unit Blood Type Code 5100 [facility] BLOOD BANK Volume 290 [facility] BLOOD BANK Coding System [id number] [facility] BLOOD BANK Blood 06/14/2023 15:1 7 EDT Reza Norwood PA-C BLOOD BANK ORDERA BLES Performing Organization Address [facility] de Phone Number [facility] BLOOD BANK [address] [place] [address] * VANCOMYCIN, RANDOM (06/14/2023 14:49 EDT) [facility] Vancomycin Random 18.7 See Note ??g/mL 06/14/2023 15:42 EDT [facility] Comment: NOTE: Reference Ranges: Trough: ??10.0 - 20.0 ug/mL Peak: ??25.0 - 50.0 ug/mL Blood VENOUS BLOOD / Unknown Venipuncture / Unknown 06/14/2023 14:49 EDT 06/14/2023 14:58 EDT Paulette Hoover MD CHEMISTRY & BLO OD GAS ORDERABLES Performing Organization Address City/[facility]/ZIP Co de Phone Number [facility] [address] [place] [address] * (ABNORMAL) DIFFERENTIAL, AUTOMATED MANUAL (06/14/2023 13:49 EDT) Pathologist [facility] % Neutrophils 93.8 % 06/14/2023 14:34 [facility] % Lymphocytes 2.6 % 06/14/2023 14:34 [facility] % Monocytes 2.7 % 06/14/2023 14:34 [facility] % Metamyelocytes 0.9 % 06/14/19 14:34 [facility] Sydnee Cells 2+ 06/14/2023 14:34 [facility] Absolute Neutrophils 31.96(H) 2.20 - 8.85 K/cmm 06/14/2023 14:34 [facility] Absolute Lymphocytes 0.89(L) 1.09 - 3.30 K/cmm 06/14/2023 14:34 [facility] Absolute Monocytes 0.92(H) 0.10 - 0.80 K/cmm 06/14/2023 14:34 [facility] Absolute Metamyelocytes 0.31(H) <=0.00 K/cmm 06/14/2023 14:34 [facility] Type of Differential: Manual 06/14/2023 14:34 [facility] Blood VENOUS BLOOD / Unknown Venipuncture / Unknown 06/14/2023 13:49 EDT 06/14/2023 13:59 EDT Tai Azar MD HEMATOLOGY & PF4 OR DERABLES [facility] [address] [place] [address] * (ABNORMAL) COMPLETE BLOOD COUNT AND DIFFERENTIAL (06/14/2023 13:49 EDT) Pathologist [facility] WBC 34.07(H) 4.00 - 12.40 K/cmm 06/14/2023 14:14 [facility] RBC 1.98(L) 3.86 - 5.04 M/cmm 06/14/2023 14:14 [facility] Hemoglobin 6.4(LL) 11.6 - 15.2 g/dL 06/14/2023 14:14 [facility] HCT 17.6(LL) 34.9 - 44.4 % 06/14/2023 14:14 [facility] MCV 89 81 - 98 fL 06/14/2023 14:14 [facility] MCH 32.3 26.7 - 33.3 pg 06/14/2023 14:14 [facility] MCHC 36.4(H) 32.1 - 35.9 g/dL 06/14/2023 14:14 [facility] RDW-CV 14.0 <14.7 % 06/14/2023 14:14 [facility] RDW-SD 45.7 <50.4 fl 06/14/2023 14:14 [facility] PLT 334 141 - 377 K/cmm 06/14/2023 14:14 [facility] MPV 10.5 9.5 - 12.7 fL 06/14/2023 14:14 [facility] Blood VENOUS BLOOD / Unknown Venipuncture / Unknown 06/14/2023 13:49 EDT 06/14/2023 13:59 EDT Tai Azar MD PACKAGES & DNA PROB E ORDERABLES [facility] [address] [place] [address] * (ABNORMAL) BASIC METABOLIC PANEL (BMP) (06/14/2023 12:52 EDT) Sodium 119(LL) 136 - 145 mmol/L 06/14/2023 14:04 [facility] Potassium 4.4 3.5 - 5.0 mmol/L 06/14/2023 14:04 [facility] Chloride 97 96 - 110 mmol/L 06/14/2023 14:04 [facility] CO2 Total 15(L) 22 - 32 mmol/L 06/14/2023 14:04 [facility] Anion Gap 7 5 - 14 mmol/L 06/14/2023 14:04 [facility] Glucose 274(H) 70 - 99 mg/dl 06/14/2023 14:04 [facility] Calcium 6.7(L) 8.5 - 10.5 mg/dL 06/14/2023 14:04 [facility] BUN 41(H) 10 - 26 mg/dL 06/14/2023 14:04 [facility] Creatinine 0.99 0.52 - 1.04 mg/dL 06/14/2023 14:04 [facility] eGFR 69 >60 mL/min/1.73 m2 06/14/2023 14:04 [facility] Blood VENOUS BLOOD / Unknown Venipuncture / Unknown 06/14/2023 12:52 EDT 06/14/2023 13:28 EDT Titus Kenny MD CHEMISTRY & BLOOD GA S ORDERABLES [facility] [address] [place] [address] * (ABNORMAL) POCT GLUCOSE, INTERFACED (06/14/2023 12:50 EDT) Glucose, POC 263(H) 70 - 100 mg/dL 06/14/2023 12:52 EDT [facility] HN LAB POC COMMENT (GLUCOSE) Test Performed by Nursing Services 06/14/2023 12:52 T [facility] Blood CAPILLARY BLOOD / Unknown 06/14/2023 12:50 EDT 06/14/2023 12:52 EDT Ayden Alexander MD POINT OF CARE TEST O RDERABLES [facility] [address] [place] [address] * TRANSFUSE RED BLOOD CELLS (06/14/2023 12:38 EDT) Blood Reza Norwood PA-C NURSING TREATMENT - BLOOD ADMINISTRATION * TRANSFUSE RED BLOOD CELLS (06/14/2023 12:38 EDT) Blood Reza Norwood PA-C NURSING TREATMENT - BLOOD ADMINISTRATION * PREPARE RED BLOOD CELLS (06/14/2023 10:15 EDT) Product Code [id number] [facility] BLOOD BANK Donor Number [id number] U [facility] BLOOD BANK Unit ABO O [facility] BLOOD BANK Unit Rh POS [facility] BLOOD BANK Unit Status TR^Transfuse [facility] BLOOD BANK Product Expiration Date [id number] [facility] BLOOD BANK Unit Blood Type Code 5100 [facility] BLOOD BANK Volume 304 [facility] BLOOD BANK Coding System [id number] [facility] BLOOD BANK Blood 06/14/2023 10:1 5 EDT Reza Norwood PA-C BLOOD BANK ORDERA BLES Performing Organization Address City/[facility]/ZIP Co de Phone Number [facility] BLOOD BANK [address] [place] [id number] * SLIDE REQUEST (06/14/2023 9:36 EDT) Note A smear is filed in the Hematology lab. 06/14/2023 10:14 EDT [facility] LABORATORY SERVICES Blood VENOUS BLOOD / Unknown Venipuncture / Unknown 06/14/2023 9:36 EDT 06/14/2023 9:47 EDT Paulette Hoover MD HEMATOLOGY & PF 4 ORDERABLES [facility] LABORATORY SERVICES [address], [place] [id number] * (ABNORMAL) COMPLETE BLOOD COUNT (06/14/2023 9:36 EDT) WBC 32.49(H) 4.00 - 12.40 K/cmm 06/14/2023 10:00 EDT [facility] RBC 2.02(L) 3.86 - 5.04 M/cmm 06/14/2023 10:00 EDT [facility] Hemoglobin 6.5(LL) 11.6 - 15.2 g/dL 06/14/2023 10:00 EDT [facility]ORY [facility] HCT 18.2(LL) 34.9 - 44.4 % 06/14/2023 10:00 EDT [facility] MCV 90 81 - 98 fL 06/14/2023 10:00 EDT [facility] MCH 32.2 26.7 - 33.3 pg 06/14/2023 10:00 EDT [facility] MCHC 35.7 32.1 - 35.9 g/dL 06/14/2023 10:00 EDT [facility] RDW-CV 14.3 <14.7 % 06/14/2023 10:00 EDT [facility]ORY SERVICES RDW-SD 47.8 <50.4 fl 06/14/2023 10:00 EDT [facility]ORY SERVICES PLT 352 141 - 377 K/cmm 06/14/2023 10:00 EDT [facility]ORY SERVICES MPV 10.3 9.5 - 12.7 fL 06/14/2023 10:00 T [facility] Blood VENOUS BLOOD / Unknown Venipuncture / Unknown 06/14/2023 9:36 EDT 06/14/2023 9:47 EDT Paulette Hoover MD HEMATOLOGY & PF 4 ORDERABLES [facility]ORY [facility] [address] [place] [address] * TRANSFUSE RED BLOOD CELLS (06/14/2023 8:03 EDT) Blood Titus Kenny MD NURSING TREATMENT - BLOOD ADMINISTRATION * TRANSFUSE RED BLOOD CELLS (06/14/2023 8:03 EDT) Blood Titus Kenny MD NURSING TREATMENT - BLOOD ADMINISTRATION * (ABNORMAL) POCT BLOOD GAS, CG8 I-STAT (06/14/2023 6:58 EDT) Hematocrit, Venous, i-STAT 19(LL) 35 - 44 % 06/14/2023 7:02 EDT [facility] SERVICES Blood VENOUS BLOOD / Unknown 06/14/2023 6:58 EDT 06/14/2023 7:02 EDT Narrative [facility]ORY SERVICES - 06/14/2023 7:02 EDT Test Performed by Respiratory Paulette Hoover MD POINT OF CARE T EST ORDERABLES [facility]ORY [facility] [address] [place] [address] * PATIENT RE-TYPE (06/14/2023 6:35 EDT) ABO O 06/14/2023 7:18 EDT [facility] BLOOD BANK Rh Factor Positive 06/14/2023 7:18 EDT [facility] BLOOD BANK Blood VENOUS BLOOD / Unknown Venipuncture / Unknown 06/14/2023 6:35 EDT 06/14/2023 7:00 EDT Chato Patel MD BLOOD BANK TESTS [facility] BLOOD BANK [address] [place] [address] * PREPARE RED BLOOD CELLS (06/14/2023 6:14 EDT) Product Code [id number] [facility] BLOOD BANK Donor Number [id number] U [facility] BLOOD BANK Unit ABO O [facility] BLOOD BANK Unit Rh POS [facility] BLOOD BANK Unit Status TR^Transfuse [facility] BLOOD BANK Product Expiration Date [id number] [facility] BLOOD BANK Unit Blood Type Code 5100 [facility] BLOOD BANK Volume 281 [facility] BLOOD BANK Coding System [id number] [facility] BLOOD BANK 06/14/2023 6:14 EDT Titus Kenny MD BLOOD BANK ORDERABLE S Performing Organization Address City/[facility]/ZIP Co de Phone Number [facility] BLOOD BANK [address] [place] [address] * TYPE AND SCREEN (06/14/2023 5:51 EDT) ABO O 06/14/2023 6:49 EDT [facility] BLOOD BANK Rh Factor Positive 06/14/2023 6:49 EDT [facility] BLOOD BANK Antibody Screen Negative 06/14/2023 6:49 EDT [facility] BLOOD BANK Specimen Expires: 06/17/2023 @ 23:59 06/14/2023 6:49 EDT [facility] BLOOD BANK Blood VENOUS BLOOD / Unknown Venipuncture / Unknown 06/14/2023 5:51 EDT 06/14/2023 6:01 EDT Ángel Godinez MD BLOOD BANK TESTS [facility] BLOOD BANK [address] [place] [address] * (ABNORMAL) POCT GLUCOSE, INTERFACED (06/14/2023 5:41 EDT) Glucose, POC 194(H) 70 - 100 mg/dL 06/14/2023 5:42 EDT [facility] LABORATORY SERVICES HN LAB POC COMMENT (GLUCOSE) Test Performed by Nursing Services 06/14/2023 5:42 EDT [facility]ORY SERVICES Blood CAPILLARY BLOOD / Unknown 06/14/2023 5:41 EDT 06/14/2023 5:42 EDT Paulette Hoover MD POINT OF CARE T EST ORDERABLES Performing Organization Address City/[facility]/ZIP Co de Phone Number [facility]ORY [facility] [address] [place] [address] * PREPARE RED BLOOD CELLS (06/14/2023 5:20 EDT) Product Code [id number] [facility] BLOOD BANK Donor Number [id number] U [facility] BLOOD BANK Unit ABO O [facility] BLOOD B[facility] Unit Rh POS [facility] BLOOD [facility] Unit Status TR^Transfuse [facility] Product Expiration Date [id number] [facility] BLOOD BANK Unit Blood Type Code 5100 [facility] BLOOD BANK Volume 281 [facility] Coding System [id number] [facility] BLOOD BANK 06/14/2023 5:20 EDT Ángel Godinez MD BLOOD BANK ORDERABL ES Performing Organization Address [facility] Co de Phone Number [facility] BLOOD BANK [address] [place] [address] * PREPARE RED BLOOD CELLS (06/14/2023 5:20 EDT) Product Code [id number] [facility] BLOOD BANK Donor Number [id number] U [facility] BLOOD BANK Unit ABO O [facility] BLOOD B[facility] Unit Rh POS [facility] Unit Status TR^Transfuse [facility] BLOOD BANK Product Expiration Date [id number] [facility] BLOOD BANK Unit Blood Type Code 5100 [facility] BLOOD BANK Volume 286 [facility] BLOOD BANK Coding System [id number] [facility] BLOOD BANK Blood 06/14/2023 5:20 EDT Ángel Godinez MD BLOOD BANK ORDERABL ES [facility] BLOOD BANK [address] [place] [address] * (ABNORMAL) DIFFERENTIAL, AUTOMATED MANUAL (06/14/2023 4:55 EDT) % Neutrophils 85.7 % 06/14/2023 5:53 EDT [facility]ATORY SERVICES % Banded Neutrophils 1.8 % 06/14/2023 5:53 EDT [facility]ORY SERVICES % Lymphocytes 4.5 % 06/14/2023 5:53 EDT [facility]ORY SERVICES % Monocytes 7.1 % 06/14/2023 5:53 EDT [facility]ORY SERVICES % Myelocytes 0.9 % 06/14/2023 5:53 EDT [facility]ORY SERVICES Vacuolated Neutrophils Present 06/14/2023 5:53 EDT [facility] LAB[facility]ORY SERVICES Absolute Neutrophils 27.65(H) 2.20 - 8.85 K/cmm 06/14/2023 5:53 EDT [facility] LABORATORY SERVICES Absolute Bands 0.58 K/cmm 06/14/2023 5:53 EDT [facility]ORY SERVICES Absolute Lymphocytes 1.45 1.09 - 3.30 K/cmm 06/14/2023 5:53 EDT [facility]ORATORY SERVICES Absolute Monocytes 2.29(H) 0.10 - 0.80 K/cmm 06/14/2023 5:53 EDT [facility]ATORY SERVICES Absolute Myelocytes 0.29(H) <=0.00 K/cmm 06/14/2023 5[facility] Smudge Cells Present 06/14/2023 5:53 EDT [facility]ORY SERVICES Type of Differential: Manual 06/14/2023 5:53 [facility]ATORY SERVICES Blood VENOUS BLOOD / Unknown Venipuncture / Unknown 06/14/2023 4:55 EDT 06/14/2023 4:59 EDT Narrative [facility] LABORATORY SERVICES - 06/14/2023 5:53 EDT Differential performed on albumin made slide. Ángel Godinez MD HEMATOLOGY & PF4 OR DERABLES Performing Organization Address City/[facility]/ZIP Co de Phone Number [facility]ORATORY SERVICES [address] [place] [address] * (ABNORMAL) BASIC METABOLIC PANEL (BMP) (06/14/2023 4:55 EDT) [facility] Sodium 120(LL) 136 - 145 mmol/L 06/14/2023 5:36 EDT [facility]ORY SERVICES Potassium 4.0 3.5 - 5.0 mmol/L 06/14/2023 5:36 T [facility]ORY SERVICES Chloride 96 96 - 110 mmol/L 06/14/2023 5:36 [facility] CO2 Total 16(L) 22 - 32 mmol/L 06/14/2023 5:36 [facility] Anion Gap 8 5 - 14 mmol/L 06/14/2023 5:36 [facility] Glucose 174(H) 70 - 99 mg/dl 06/14/2023 5:36 [facility] Calcium 7.1(L) 8.5 - 10.5 mg/dL 06/14/2023 5:36 [facility] BUN 41(H) 10 - 26 mg/dL 06/14/2023 5:36 [facility] Creatinine 1.13(H) 0.52 - 1.04 mg/dL 06/14/2023 5:36 [facility] eGFR 59(L) >60 mL/min/1.73 m2 06/14/2023 5:36 [facility] Blood VENOUS BLOOD / Unknown Venipuncture / Unknown 06/14/2023 4:55 EDT 06/14/2023 5:04 EDT Titus Kenny MD CHEMISTRY & BLOOD GA S ORDERABLES [facility]ORATORY SERVICES [address] [place] [address] * (ABNORMAL) COMPLETE BLOOD COUNT AND DIFFERENTIAL (06/14/2023 4:55 EDT) WBC 32.26(H) 4.00 - 12.40 K/cmm 06/14/2023 5:17 [facility] RBC 1.55(L) 3.86 - 5.04 M/cmm 06/14/2023 5:17 [facility] Hemoglobin 5.1(LL) 11.6 - 15.2 g/dL 06/14/2023 5:17 [facility] HCT 13.8(LL) 34.9 - 44.4 % 06/14/2023 5:17 [facility] MCV 89 81 - 98 fL 06/14/2023 5:17 [facility] MCH 32.9 26.7 - 33.3 pg 06/14/2023 5:17 [facility] MCHC 37.0(H) 32.1 - 35.9 g/dL 06/14/2023 5:17 [facility] RDW-CV 14.1 <14.7 % 06/14/2023 5:17 [facility] RDW-SD 45.4 <50.4 fl 06/14/2023 5:17 [facility] PLT 332 141 - 377 K/cmm 06/14/2023 5:17 [facility] MPV 10.3 9.5 - 12.7 fL 06/14/2023 5:17 [facility] Blood VENOUS BLOOD / Unknown Venipuncture / Unknown 06/14/2023 4:55 EDT 06/14/2023 4:59 EDT Ángel Godinez MD PACKAGES & DNA PROB E ORDERABLES [facility] [address] [place] [address] * (ABNORMAL) HEMOGLOBIN A1C (06/14/2023 4:55 EDT) Hemoglobin A1c 8.2(H) <5.7 % 06/14/2023 11:46 [facility] Comment: Glycemic Status References: Normal: ??<5.7% Pre-Diabetes: ??5.7% - 6.4% Diagnostic of Diabetes: ??> or = 6.5% (if confirmed) Est Avg Glucose 189 mg/dL 11:46 EDT [facility] Comment:The eAG represents t he A1c result expressed as average glucose in mg/dL. Blood VENOUS BLOOD / Unknown Venipuncture / Unknown 06/14/2023 4:55 EDT 06/14/2023 4:59 EDT Ángel Godinez MD CHEMISTRY & BLOOD G ORDERABLES Performing Organization Address [facility] Phone Number [facility] [address] [place] [address] * MRSA PCR (06/14/2023 1:23 EDT) MRSA/Staph aureus Result No Staphylococcus aureus detected by PCR 06/14/2023 14:19 EDT [facility]ORY SERVICES Swab BOTH ANTERIOR NARES / Unknown Swab / Unknown 06/14/2023 1:23 EDT 06/14/2023 8:00 EDT Ángel Godinez MD MICROBIOLOGY - GENE RAL ORDERABLES Performing Organization Address [facility] de Phone Number [facility]ORY [facility] [address] [place] [address] * VANCOMYCIN, RANDOM (06/14/2023 1:22 EDT) Vancomycin Random 14.1 See Note ??g/mL 06/14/2023 2:34 EDT [facility]ORY SERVICES Comment: NOTE: Reference Ranges: Trough: ??10.0 - 20.0 ug/mL Peak: ??25.0 - 50.0 ug/mL Blood VENOUS BLOOD / Unknown Finger/Heel Stick / Unknown 06/14/2023 1:22 EDT 06/14/2023 1:26 EDT Paulette Hoover MD CHEMISTRY & BLO OD GAS ORDERABLES Performing Organization Address City/[facility]/ZIP Co de Phone Number [facility]ORATORY SERVICES [address] [place] [address] * (ABNORMAL) BASIC METABOLIC PANEL (BMP) (06/14/2023 1:22 EDT) Sodium 119(LL) 136 - 145 mmol/L 06/14/2023 2:34 T [facility]ORY SERVICES Potassium 4.4 3.5 - 5.0 mmol/L 06/14/2023 2:34 [facility] Chloride 95(L) 96 - 110 mmol/L 06/14/2023 2:34 [facility] CO2 Total 16(L) 22 - 32 mmol/L 06/14/2023 2:34 [facility] Anion Gap 8 5 - 14 mmol/L 06/14/2023 2:34 [facility] Glucose 249(H) 70 - 99 mg/dl 06/14/2023 2:34 [facility] Calcium 6.7(L) 8.5 - 10.5 mg/dL 06/14/2023 2:34 [facility] BUN 42(H) 10 - 26 mg/dL 06/14/2023 2:34 [facility] Creatinine 1.03 0.52 - 1.04 mg/dL 06/14/2023 2:34 [facility] eGFR 65 >60 mL/min/1.73 m2 06/14/2023 2:34 [facility] Blood VENOUS BLOOD / Unknown Finger/Heel Stick / Unknown 06/14/2023 1:22 EDT 06/14/2023 1:26 EDT Ángel Godinez MD CHEMISTRY & BLOOD G ORDERABLES [facility] [address] [place], [place] [address] * (ABNORMAL) POCT GLUCOSE, INTERFACED (06/14/2023 0:58 EDT) Glucose, POC 269(H) 70 - 100 mg/dL 06/14/2023 0:59 EDT [facility]ORATORY SERVICES HN LAB POC COMMENT (GLUCOSE) Test Performed by Nursing Services 06/14/2023 0:59 EDT [facility] SERVICES Blood CAPILLARY BLOOD / Unknown 06/14/2023 0:58 EDT 06/14/2023 0:59 EDT Ayden Alexander MD POINT OF CARE TEST O RDERABLES Performing Organization Address City/[facility]/ZIP Co de Phone Number [facility] [address] [place], [place] [phone] documented in this encounter Visit Diagnoses Diagnosis Necrotizing fasciitis ([facility])- Primary Necrotizing fasciitis Necrotizing soft tissue infection Cardiopulmonary arrest with successful resuscitation ([facility]) Complete heart block ([facility]) Atrioventricular block, complete Palliative care by specialist [Z51.5] Type 2 diabetes mellitus without complication, without long-term current use of insulin ([facility]) Insufficiency, respiratory, acute [R06.89] Other pulmonary insufficiency, not elsewhere classified Electrolyte and fluid disorder [E87.8] Electrolyte and fluid disorders not elsewhere classified Acute respiratory failure with hypoxia ([facility]) Acute respiratory failure Respiratory insufficiency Other dyspnea and respiratory abnormality Type 2 diabetes mellitus with hyperglycemia, unspecified whether buttermaker continuous churn insulin use ([facility]) [E11.65] Type 2 diabetes mellitus with peripheral neuropathy ([facility]) [E11.42] Type 2 diabetes with complication ([facility]) [E11.8] Type II or unspecified type diabetes mellitus with unspecified complication, not stated as uncontrolled Necrotizing fasciitis ([facility]) [M72.6] Necrotizing fasciitis Type 2 diabetes mellitus with hyperglycemia, with long-term current use of insulin ([facility]) Type 2 diabetes mellitus with other skin ulcer, with long-term current use of insulin ([facility]) Necrotizing soft tissue infection Cardiopulmonary arrest with successful resuscitation ([facility]) Type 2 diabetes mellitus Type II or unspecified type diabetes mellitus without mention of complication, not stated as uncontrolled Complete heart block ([facility]) Atrioventricular block, complete Palliative care by specialist Insufficiency, respiratory, acute Other pulmonary insufficiency, not elsewhere classified Electrolyte and fluid disorder Electrolyte and fluid disorders not elsewhere classified Acute respiratory failure with hypoxia ([facility]) Acute respiratory failure Necrotizing soft tissue infection documented in this encounter Admitting Diagnoses Diagnosis Necrotizing fasciitis ([facility]) Necrotizing fasciitis documented in this encounter Administered Medications Inactive Administered Medications - up to 3 most recent administrations Medication Order MAR Action Action Date Dose Rate Site acetaminophen (TYLENOL) tablet 1,000 mg 1,000 mg, oral, EVERY 6 HOURS, First dose on Sat08/04/23 at 1200, Until Discontinued, Routine Given 08/22/2023 4:15 EDT 1,000 mg Given 08/21/2023 17:35 EDT 1,000 mg Given 08/21/2023 12:08 EDT 1,000 mg albuterol inhaler 180 mcg 180 mcg (2 Puff), inhalation, EVERY 4 HOURS PRN, Starting on 06/29/23 at 1936, Until Dina 08/22/23 at 1315, Wheezing, Routine Given 07/08/2023 2:52 EDT 180 mcg Given 07/03/2023 16:09 EDT 180 mcg Given 07/01/2023 10:39 EDT 180 mcg alteplase (CATHFLO ACTIVASE) injection 2 mg 2 mg, intercatheter, PRN, Starting on Sat06/14/23 at 1128, Until Dina 08/22/23 at 1315, Line Care, Routine amLODIPine (NORVASC) tablet 10 mg 10 mg, oral, DAILY, First dose (after last modification) on Dina 06/20/23 at 1130, Until Discontinued, Routine Given 08/22/2023 9:22 EDT 10 mg Given 08/21/2023 9:15 EDT 10 mg Given 08/20/2023 9:11 EDT 10 mg cholecalciferol (Vitamin D3) tablet 2,000 Units 2,000 Units, oral, DAILY, First dose on Sat08/02/23 at 0900, Until Discontinued, Routine Given 08/22/2023 9:21 EDT 2,000 Units Given 08/21/2023 9:15 EDT 2,000 Units Given 08/20/2023 9:11 EDT 2,000 Units cloNIDine (CATAPRES) 0.2 mg/24 hr patch 1 Patch 1 Patch, transdermal, Administer over 7 Days, WEEKLY, First dose on Sat07/09/23 at 1230, Until Discontinued, Routine Patch Applied 08/20/2023 12:26 EDT 1 Patch Left A rm Patch Applied 08/13/2023 13:54 EDT 1 Patch R ight Arm Patch Applied 08/06/2023 12:16 EDT 1 Patch L eft Arm dextrose 50 % solution 12.5 g 12.5 g (25 mL), intravenous, PRN, Starting on Sat06/21/23 at 1014, Until Dina 08/22/23 at 1315, Low Blood Sugar, Routine docusate sodium (COLACE) capsule 100 mg 100 mg, oral, 2 TIMES DAILY PRN, Starting on Sat08/09/23 at 1015, Until Dina 08/22/23 at 1314, Constipation, Routine Given 08/13/2023 9:01 EDT 100 mg Given 08/11/2023 20:48 EDT 100 mg Given 08/11/2023 10:34 EDT 100 mg enoxaparin (LOVENOX) injection 40 mg 40 mg, subcutaneous, DAILY, First dose on Sat06/15/23 at 0900, Until Discontinued, Routine Given 08/22/2023 9:24 EDT 40 mg Given 08/21/2023 9:17 EDT 40 mg Given 08/20/2023 9:11 EDT 40 mg furosemide (LASIX) tablet 40 mg 40 mg, oral, DAILY, First dose (after last modification) on Sat07/02/23 at 0900, Until Discontinued, Routine Given 08/22/2023 9:21 EDT 40 mg Given 08/21/2023 9:16 EDT 40 mg Given 08/20/2023 9:11 EDT 40 mg glucagon injection 1 mg 1 mg, intramuscular, As needed, Starting on Sat06/21/23 at 1014, Until Dina 08/22/23 at 1315, Low Blood Sugar, Routine HYDROmorphone-bupivacaine 10 mcg/ml-0.125% in NS 250 ml epidural 1 dose, Starting on Sat08/16/23 at 0615, Until Dina /27/24 at 1314, Ghassan Crawford: cabinet override insulin aspart U-100 (NOVOLOG FLEXPEN) injection 6 Units 6 Units, subcutaneous, 3 TIMES DAILY WITH MEALS, First dose (after last modification) on Sat08/22/23 at 1200, Until Discontinued, Routine insulin aspart U-100 (NOVOLOG FLEXPEN) injection subcutaneous, AT BEDTIME, First dose on Sat07/12/23 at 2100, Until Discontinued, Routine Given 07/13/2023 20:30 ED T 5 Units insulin aspart U-100 (NOVOLOG FLEXPEN) injection subcutaneous, 3 TIMES DAILY WITH MEALS, First dose (after last modification) on Sat08/01/23 at 0800, Until Discontinued, Routine, Indications: SUPPLEMENTAL INSULIN Given 08/22/2023 8:04 EDT 2 Units Given 08/21/2023 12:03 EDT 2 Units Given 08/20/2023 18:40 EDT 2 Units insulin glargine injection pen 48 Units 48 Units, subcutaneous, ONCE DAILY L.A. INSULIN, First dose (after last modification) on Sat08/15/23 at 1000, Until Discontinued, Routine Given 08/22/2023 9:29 EDT 48 Units Given 08/21/2023 10:48 EDT 48 Units Given 08/20/2023 9:46 EDT 48 Units ipratropium-albuteroL (DUONEB) 0.5 mg-3 mg(2.5 mg base)/3 mL nebulizer solution 3 mL 3 mL, nebulization, EVERY 4 HOURS PRN, Starting on Sat07/14/23 at 1600, Until Sat08/22/23 at 1314, Wheezing, Routine Given 2023 15:36 EDT 3 mL lidocaine 5 % (LIDODERM) patch 2 Patch 2 Patch, transdermal, Administer over 12 Hours, DAILY, First dose (after last modification) on Sat08/03/23 at 0900, Until Discontinued, Routine Patch Applied 08/22/2023 9:23 EDT 2 Patches Back Patch Applied 08/21/2023 9:18 EDT 2 Patches Ba ck Patch Applied 08/20/2023 9:22 EDT 2 Patches Ba ck LORazepam (ATIVAN) tablet 0.5 mg 0.5 mg, oral, DAILY, First dose (after last modification) on Sat08/03/23 at 0900, Until Discontinued, Routine Given 08/22/2023 9:22 EDT 0.5 mg Given 08/21/2023 9:15 EDT 0.5 mg Given 08/20/2023 9:11 EDT 0.5 mg LORazepam (ATIVAN) tablet 0.5 mg 0.5 mg, oral, DAILY PRN, Starting on Sat08/02/23 at 1642, Until Sat08/22/23 at 1314, Anxiety, Routine Given 08/18/2023 12:15 EDT 0.5 mg Given 08/16/2023 17:10 EDT 0.5 mg Given 08/13/2023 20:33 EDT 0.5 mg melatonin tablet 6 mg 6 mg, oral, AT BEDTIME, First dose on Sat07/10/23 at 2100, Until Discontinued, Routine Given 08/21/2023 21:48 EDT 6 mg Given 08/20/2023 20:53 EDT 6 mg Given 08/19/2023 20:58 EDT 6 mg metFORMIN (GLUCOPHAGE-XR) ER tablet 1,000 mg 1,000 mg, oral, 2 TIMES DAILY WITH BREAKFAST & DINNER, First dose (after last modification) on Sat08/21/23 at 1700, Until Discontinued, Routine Given 08/22/2023 8:09 EDT 1,000 mg Given 08/21/2023 17:35 EDT 1,000 mg methocarbamoL (ROBAXIN) tablet 1,000 mg 1,000 mg, oral, 4 TIMES DAILY, First dose (after last modification) on Sat07/13/23 at 1200, Until Discontinued, Routine Given 08/22/2023 8:09 EDT 1,000 mg Given 08/21/2023 21:48 EDT 1,000 mg Given 08/21/2023 17:35 EDT 1,000 mg bjsvbsrd-iip-fsfc fum-folic ac 7.5 mg iron-400 mcg tablet 1 Tablet 1 Tablet, oral, DAILY, First dose on Sat06/30/23 at 0900, Until Discontinued, Routine Given 08/22/2023 9:22 EDT 1 T ablet Given 08/21/2023 9:16 EDT 1 Tablet Given 08/20/2023 9:11 EDT 1 Tablet naloxone (NARCAN) injection 0.1 mg 0.1 mg, intravenous, PRN, Starting on Sat06/14/23 at 0026, Until Dina 08/22/23 at 1315, Opioid Reversal, Routine nicotine (NICODERM CQ) 21 mg/24 hr patch 1 Patch 1 Patch, transdermal, DAILY, First dose on Sat07/01/23 at 0900, Until Discontinued, Routine Patch Applied 08/22/2023 9:22 EDT 1 Patch Right A rm Patch Applied 08/21/2023 9:17 EDT 1 Patch Ba ck Patch Applied 08/20/2023 9:11 EDT 1 Patch Ri ght Arm oxyCODONE (ROXICODONE) immediate release tablet 10 mg 10 mg, oral, EVERY 4 HOURS PRN, Starting on Sat08/04/23 at 0639, Until Sat08/22/23 at 1314, Pain, Routine Given 08/22/2023 9:22 EDT 10 mg Given 08/22/2023 4:15 EDT 10 mg Given 08/21/2023 21:48 EDT 10 mg oxyCODONE (ROXICODONE) immediate release tablet 5 mg 5 mg, oral, EVERY 4 HOURS PRN, Starting on Sat08/04/23 at 0639, Until Sat08/22/23 at 1314, Pain, Routine Given 08/20/2023 12:00 EDT 5 mg Given 08/09/2023 6:09 EDT 5 mg Given 08/08/2023 9:48 EDT 5 mg QUEtiapine (SEROQUEL) tablet 25 mg 25 mg, oral, AT BEDTIME, First dose on Sat07/01/23 at 2100, Until Discontinued, Routine Given 08/21/2023 21:48 EDT 25 mg Given 08/20/2023 20:53 EDT 25 mg Given 08/19/2023 20:57 EDT 25 mg Sodium chloride - hypochlorus acid 0.033% solution (aka Vashe) (VASHE) 0.033 % external solution topical, DAILY, First dose (after last modification) on Sat08/07/23 at 1430, Until Discontinued Given 08/20/2023 9:46 EDT Given 08/19/2023 8:09 EDT Given 08/18/2023 8:10 EDT sodium chloride soluble tablet 1,000 mg 1,000 mg (1 g), oral, 3 TIMES DAILY, First dose (after last modification) on Sat07/12/23 at 0900, Until Discontinued, Routine Given 08/22/2023 9:22 EDT 1,000 mg Given 08/21/2023 21:48 EDT 1,000 mg Given 08/21/2023 14:02 EDT 1,000 mg documented in this encounter Discontinued Medications Medication Sig Discontinue Reason Start Date End Da te Blood-Glucose Sensor (DEXCOM G7 SENSOR) deviceIndications:Type 2 diabetes mellitus with other skin ulcer, with long-term current use of insulin ([facility]-CMS) 1 Device by misc (non-drug; combo route) route every 10 days. 08/12/2023 08/22/2023 Blood-Glucose Meter,Continuous (DEXCOM G7 PLANT PROPAGATOR) miscIndications:Type 2 diabetes mellitus with hyperglycemia, with long-term current use of insulin (Chrends-CMS) 1 Device by misc (non-drug; combo route) route Once for 1 dose. 08/19/2023 08/22/2023 insulin aspart U-100 (NOVOLOG FLEXPEN) 100 unit/mL (3 mL) injectable penIndications:SUPPLEME NTAL INSULIN Aspart SSI: Dosing regimen weight between 76-100 kg BG Units 66-140 0 141-180 2 181-210 3 211-250 5 251-299 7 > 299 11 08/22/2023 08/22/2023 insulin aspart U-100 (NOVOLOG FLEXPEN) 100 unit/mL (3 mL) injectable pen Inject 5 Units into the skin at bedtime. if BG > 250 and recheck BG at midnight 08/22/2023 08/22/2023 metFORMIN (GLUCOPHAGE-XR) 500 mg ER tablet Take 2 Tablets by mouth 2 times daily with breakfast and dinner. 08/22/2023 08/22/2023 methocarbamoL (ROBAXIN) 500 mg tablet Take 2 Tablets by mouth 4 times daily for 7 days. 08/22/2023 08/22/2023 furosemide (LASIX) 40 mg tablet Take 1 Tablet by mouth daily for 30 days. 08/23/2023 08/22/2023 docusate sodium (COLACE) 100 mg capsule Take 1 Capsule by mouth 2 times daily as needed for Constipation. 08/22/2023 08/22/2023 amLODIPine (NORVASC) 10 mg tablet Take 1 Tablet by mouth daily for 30 days. 08/23/2023 08/22/2023 acetaminophen (TYLENOL) 500 mg tablet Take 2 Tablets by mouth every 6 hours as needed for Pain. 08/22/2023 08/22/2023 sodium chloride 1,000 mg soluble tablet Take 1 Tablet by mouth 3 times daily for 30 days. 08/22/2023 08/22/2023 hgqyrdjr-tfp-illt fum-folic ac 7.5 mg iron-400 mcg tablet Take 1 Tablet by mouth daily for 30 days. 08/23/2023 08/22/2023 insulin glargine 100 unit/mL (3 mL) injection pen Inject 48 Units into the skin once daily. 08/23/2023 08/22/2023 insulin aspart U-100 (NOVOLOG FLEXPEN) 100 unit/mL (3 mL) injectable pen Inject 6 Units into the skin 3 times daily with meals. 08/22/2023 08/22/2023 cloNIDine (CATAPRES) 0.2 mg/[address] 1 Patch onto the skin once a week. 08/27/2023 08/22/2023 insulin pen needles 31G x 3/16 Brand: BD Ultra Fine Mini 08/22/2023 08/22/2023 documented as of this encounter Active and Recently Administered Medications Times are shown in EDT. Scheduled Medication Order 08/20/2023 08/21/2023 08/22/2023 acetaminophen (TYLENOL) tablet 1,000 mg 1,000 mg, oral, EVERY 6 HOURS, First dose on 08/04/23 at 1200, Until Discontinued, Routine 0056 (Given - Provider: Stan Leigh RN)0546 (Given - Provider: Stan Leigh RN)1200 (Given - Provider: Siri Vásquez RN)1812 (Given - Provider: Sushila Abraham RN) 0228 (Given - Provider: Stan Leigh RN - Comment: pt asleep earlier)0509 (Not Given - Provider: Stan Leigh RN - Reason: Other - Comment: last dose given at 0230)1208 (Given - Provider: Parisa Bowman RN)1735 (Given - Provider: Parisa Bowman RN) 0415 (Given - Provider: Stan Leigh RN)0500 (Not Given - Provider: Stan Leigh RN - Reason: Other - Comment: Last dose given late)1200 (Canceled Entry - Provider: Batch Job User Admin - Comment: Automatically canceled at discontinue of medication order) amLODIPine (NORVASC) tablet 10 mg 10 mg, oral, DAILY, First dose (after last modification) on Sat06/20/23 at 1130, Until Discontinued, Routine 0911 (Given - Provider: Siri Vásquez RN) 0915 (Given - Provider: Parisa Bowman RN) 0922 (Given - Provider: Parisa Bowman RN) cholecalciferol (Vitamin D3) tablet 2,000 Units 2,000 Units, oral, DAILY, First dose on Sat08/02/23 at 0900, Until Discontinued, Routine 0911 (Given - Provider: Siri Vásquez RN) 0915 (Given - Provider: Parisa Bowman RN) 0921 (Given - Provider: Parisa Bowman RN) cloNIDine (CATAPRES) 0.2 mg/24 hr patch 1 Patch 1 Patch, transdermal, Administer over 7 Days, WEEKLY, First dose on Sat07/09/23 at 1230, Until Discontinued, Routine 1202 (Patch Removed - Provider: Siri Vásquez RN)1226 (Patch Applied - Provider: Siri Vásquez RN) 1114 (Due: Patch Removed - Provider: Batch Job User Admin - Comment: Time automatically adjusted from order being discontinued) enoxaparin (LOVENOX) injection 40 mg 40 mg, subcutaneous, DAILY, First dose on Sat06/15/23 at 0900, Until Discontinued, Routine 0911 (Given - Provider: Siri Vásquez RN) 0917 (Given - Provider: Parisa Bowman RN) 0924 (Given - Provider: Parisa Bowman RN) furosemide (LASIX) tablet 40 mg 40 mg, oral, DAILY, First dose (after last modification) on Sat07/02/23 at 0900, Until Discontinued, Routine 0911 (Given - Provider: Siri Vásquez RN) 0916 (Given - Provider: Parisa Bowman RN) 0921 (Given - Provider: Parisa Bowman RN) insulin aspart U-100 (NOVOLOG FLEXPEN) injection 6 Units 6 Units, subcutaneous, 3 TIMES DAILY WITH MEALS, First dose (after last modification) on Sat08/22/23 at 1200, Until Discontinued, Routine 1200 (Canceled Entry - Provider: Batch Job User Admin - Comment: Automatically canceled at discontinue of medication order) insulin aspart U-100 (NOVOLOG FLEXPEN) injection 6-12 Units (CANCELED) 6-12 Units, subcutaneous, 3 TIMES DAILY WITH MEALS, First dose (after last modification) on Sat08/16/23 at 1230, Until Discontinued, Routine 0916 (Given - Provider: Siri Vásquez RN)1229 (Given - Provider: Siri Vásquez RN)1841 (Given - Provider: Siri Vásquez RN) 0817 (Given - Provider: Parisa Bowman RN)1209 (Not Given - Provider: Parisa Bowman RN - Reason: Other - Comment: Skipped her meal, so not given)1740 (Given - Provider: Parisa Bowman RN) 0805 (Given - Provider: Parisa Bowman RN) insulin aspart U-100 (NOVOLOG FLEXPEN) injection subcutaneous, AT BEDTIME, First dose on Sat07/12/23 at 2100, Until Discontinued, Routine 2057 (Not Given - Provider: Stan Leigh RN - Reason: Order parameters not met) 214 (Not Given - Provider: Stan Leigh RN - Reason: Order parameters not met) insulin aspart U-100 (NOVOLOG FLEXPEN) injection subcutaneous, 3 TIMES DAILY WITH MEALS, First dose (after last modification) on Sat08/01/23 at 0800, Until Discontinued, Routine, Indications: SUPPLEMENTAL INSULIN 0905 (Not Given - Provider: Siri Vásquez RN - Reason: Order parameters not met)1209 (Not Given - Provider: Siri Vásquez RN - Reason: Order parameters not met)1840 (Given - Provider: Siri Vásquez RN) 0811 (Not Given - Provider: Parisa Bowman RN - Reason: Order parameters not met)1203 (Given - Provider: Parisa Bowman RN)1738 (Not Given - Provider: Parisa Bowman RN - Reason: Order parameters not met) 0804 (Given - Provider: Parisa Bowman RN)1200 (Canceled Entry - Provider: Batch Job User Admin - Comment: Automatically canceled at discontinue of medication order) insulin glargine injection pen 48 Units 48 Units, subcutaneous, ONCE DAILY L.A. INSULIN, First dose (after last modification) on Dina 08/15/23 at 1000, Until Discontinued, Routine 0946 (Given - Provider: Siri Vásquez RN) 1048 (Given - Provider: Parisa Bowman RN) 0929 (Given - Provider: Parisa Bowman RN) lidocaine 5 % (LIDODERM) patch 2 Patch 2 Patch, transdermal, Administer over 12 Hours, DAILY, First dose (after last modification) on 08/03/23 at 0900, Until Discontinued, Routine 0922 (Patch Applied - Provider: Siri Vásquez RN)2052 (Patch Removed - Provider: Stan Leigh RN) 09 (Patch Applied - Provider: Parisa Bowman RN)214 (Patch Removed - Provider: Stan Leigh RN) 0923 (Patch Applied - Provider: Parisa Bowman RN)1114 (Due: Patch Removed - Provider: Batch Job User Admin - Comment: Time automatically adjusted from order being discontinued) LORazepam (ATIVAN) tablet 0.5 mg(Linked Group 1) 0.5 mg, oral, DAILY, First dose (after last modification) on 08/03/23 at 0900, Until Discontinued, Routine 0911 (Given - Provider: Siri Vásquez RN) 0915 (Given - Provider: Parisa Bowman RN) 0922 (Given - Provider: Parisa Bowman RN) melatonin tablet 6 mg 6 mg, oral, AT BEDTIME, First dose on Sat07/10/23 at 2100, Until Discontinued, Routine 2052 (Given - Provider: Stan Leigh RN) 2147 (Given - Provider: Stan Leigh RN) metFORMIN (GLUCOPHAGE-XR) ER tablet 1,000 mg 1,000 mg, oral, 2 TIMES DAILY WITH BREAKFAST & DINNER, First dose (after last modification) on Sat08/21/23 at 1700, Until Discontinued, Routine 1735 (Given - Provider: Parisa Bowman RN) 0809 (Given - Provider: Parisa Bowman RN) metFORMIN (GLUCOPHAGE-XR) ER tablet 500 mg (CANCELED) 500 mg, oral, 2 TIMES DAILY WITH BREAKFAST & DINNER, First dose on Dina 08/15/23 at 1015, Until Discontinued, Routine 0911 (Given - Provider: Siri Vásquez RN)1812 (Given - Provider: Sushila Abraham RN) 0821 (Given - Provider: Parisa Bowman RN) metFORMIN (GLUCOPHAGE-XR) ER tablet 500 mg (COMPLETED) 500 mg, oral, Once (Time Specified), 1 dose, On Sat08/21/23 at 1130, Routine 1205 (Given - Provider: Parisa Bowman RN) methocarbamoL (ROBAXIN) tablet 1,000 mg 1,000 mg, oral, 4 TIMES DAILY, First dose (after last modification) on 07/13/23 at 1200, Until Discontinued, Routine 0911 (Given - Provider: Siri Vásquez RN)1200 (Given - Provider: Siri Vásquez RN)1812 (Given - Provider: Sushila Abraham RN)2053 (Not Given - Provider: Stan Leigh RN - Reason: Other - Comment: too close to last dose) 0821 (Given - Provider: Parisa Bowman RN)1206 (Given - Provider: Parisa Bowman RN)1735 (Given - Provider: Parisa Bowman RN)2148 (Given - Provider: Stan Leigh RN) 0809 (Given - Provider: Parisa Bowman RN)1200 (Canceled Entry - Provider: Batch Job User Admin - Comment: Automatically canceled at discontinue of medication order) rqprrcsk-skt-bmev fum-folic ac 7.5 mg iron-400 mcg tablet 1 Tablet 1 Tablet, oral, DAILY, First dose on Sat06/30/23 at 0900, Until Discontinued, Routine 0911 (Given - Provider: Siri Vásquez RN) 0916 (Given - Provider: Parisa Bowman RN) 0922 (Given - Provider: Parisa Bowman RN) nicotine (NICODERM CQ) 21 mg/24 hr patch 1 Patch 1 Patch, transdermal, DAILY, First dose on 07/01/23 at 0900, Until Discontinued, Routine 0911 (Patch Applied - Provider: Siri Vásquez RN) 0916 (Patch Removed - Provider: Parisa Bowman RN)0917 (Patch Applied - Provider: Parisa Bowman RN) 0811 (Patch Removed - Provider: Parisa Bowman RN)0922 (Patch Applied - Provider: Parisa Bowman RN)1114 (Due: Patch Removed - Provider: Batch Job User Admin - Comment: Time automatically adjusted from order being discontinued) oxyCODONE (ROXICODONE) immediate release tablet 10 mg (COMPLETED) 10 mg, oral, NOW X1, 1 dose, On Sat08/20/23 at 1530, Routine 1513 (Given - Provider: Siri Vásquez RN) QUEtiapine (SEROQUEL) tablet 25 mg 25 mg, oral, AT BEDTIME, First dose on Sat07/01/23 at 2100, Until Discontinued, Routine 2052 (Given - Provider: Stan Leigh RN) 2147 (Given - Provider: Stan Leigh RN) Sodium chloride - hypochlorus acid 0.033% solution (aka Vashe) (VASHE) 0.033 % external solution topical, DAILY, First dose (after last modification) on Sat08/07/23 at 1430, Until Discontinued 0946 (Given - Provider: Siri Vásquez RN) 1034 (Not Given - Provider: Parisa Bowman RN - Reason: Other - Comment: Pt wound change routine is changed to PRN.) 0900 (Canceled Entry - Provider: Batch Job User Admin - Comment: Automatically canceled at discontinue of medication order) sodium chloride soluble tablet 1,000 mg 1,000 mg (1 g), oral, 3 TIMES DAILY, First dose (after last modification) on Sat07/12/23 at 0900, Until Discontinued, Routine 0911 (Given - Provider: Siri Vásquez RN)1414 (Given - Provider: Siri Vásquez RN)2053 (Given - Provider: Stan Leigh RN) 0916 (Given - Provider: Parisa Bowman RN)1402 (Given - Provider: Parisa Bowman RN)2148 (Given - Provider: Stan Leigh RN) 0922 (Given - Provider: Parisa Bowman RN) PRN Medication Order 08/20/2023 08/21/2023 08/22/2023 albuterol inhaler 180 mcg 180 mcg (2 Puff), inhalation, EVERY 4 HOURS PRN, Starting on 06/29/23 at 1936, Until Dina 08/22/23 at 1315, Wheezing, Routine alteplase (CATHFLO ACTIVASE) injection 2 mg 2 mg, intercatheter, PRN, Starting on Sat06/14/23 at 1128, Until Dina 08/22/23 at 1315, Line Care, Routine dextrose 50 % solution 12.5 g 12.5 g (25 mL), intravenous, PRN, Starting on Sat06/21/23 at 1014, Until Dina 08/22/23 at 1315, Low Blood Sugar, Routine docusate sodium (COLACE) capsule 100 mg 100 mg, oral, 2 TIMES DAILY PRN, Starting on Sat08/09/23 at 1015, Until Dina 08/22/23 at 1314, Constipation, Routine glucagon injection 1 mg 1 mg, intramuscular, As needed, Starting on Sat06/21/23 at 1014, Until Dina 08/22/23 at 1315, Low Blood Sugar, Routine ipratropium-albuteroL (DUONEB) 0.5 mg-3 mg(2.5 mg base)/3 mL nebulizer solution 3 mL 3 mL, nebulization, EVERY 4 HOURS PRN, Starting on Sat07/14/23 at 1600, Until Dina 08/22/23 at 1314, Wheezing, Routine LORazepam (ATIVAN) tablet 0.5 mg(Linked Group 1) 0.5 mg, oral, DAILY PRN, Starting on Sat08/02/23 at 1642, Until Dina 08/22/23 at 1314, Anxiety, Routine naloxone (NARCAN) injection 0.1 mg 0.1 mg, intravenous, PRN, Starting on Sat06/14/23 at 0026, Until Dina 08/22/23 at 1315, Opioid Reversal, Routine oxyCODONE (ROXICODONE) immediate release tablet 10 mg(Linked Group 2) 10 mg, oral, EVERY 4 HOURS PRN, Starting on Sat08/04/23 at 0639, Until Dina 08/22/23 at 1314, Pain, Routine 0056 (Given - Provider: Stan Leigh RN)0546 (Given - Provider: Stan Leigh RN)1200 (See Alternative - Provider: Siri Vásquez RN)2052 (Given - Provider: Stan Leigh RN) 0227 (Given - Provider: Stan Leigh RN)0823 (Given - Provider: Parisa Bowman RN)121 (Given - Provider: Parisa Bowman RN)173 (Given - Provider: Parisa Bowman RN)214 (Given - Provider: Stan Leigh RN) 041 (Given - Provider: Stan Leigh RN)0922 (Given - Provider: Parisa Bowman RN) oxyCODONE (ROXICODONE) immediate release tablet 5 mg(Linked Group 2) 5 mg, oral, EVERY 4 HOURS PRN, Starting on Sat08/04/23 at 0639, Until Dina 08/22/23 at 1314, Pain, Routine 0056 (See Alternative - Provider: Stan Leigh RN)0546 (See Alternative - Provider: Stan Leigh RN)1200 (Given - Provider: Siri Vásquez RN)2052 (See Alternative - Provider: Stan Leigh RN) 022 (See Alternative - Provider: Stan Leigh RN)0823 (See Alternative - Provider: Parisa Bowman RN)121 (See Alternative - Provider: Parisa Bowman RN)173 (See Alternative - Provider: Parisa Bowman RN)214 (See Alternative - Provider: Stan Leigh RN) 041 (See Alternative - Provider: Stan Leigh RN)0922 (See Alternative - Provider: Parisa Bowman RN) No Frequency Medication Order 08/20/2023 08/21/2023 08/22/2023 HYDROmorphone-bupivacaine 10 mcg/ml-0.125% in NS 250 ml epidural 1 dose, Starting on Sat08/16/23 at 0615, Until Dina 08/22/23 at 1314, Ghassan Crawford: cabinet override Linked Groups Order Group 1: LORazepam (ATIVAN) tablet 0.5 mgJump to med 0.5 mg, oral, DAILY, First dose (after last modification) on 08/03/23 at 0900, Until Discontinued, Routine And LORazepam (ATIVAN) tablet 0.5 mgJump to med 0.5 mg, oral, DAILY PRN, Starting on Sat08/02/23 at 1642, Until Dina 08/22/23 at 1314, Anxiety, Routine Group 2: oxyCODONE (ROXICODONE) immediate release tablet 5 mgJump to med 5 mg, oral, EVERY 4 HOURS PRN, Starting on 08/04/23 at 0639, Until Dina 08/22/23 at 1314, Pain, Routine Or oxyCODONE (ROXICODONE) immediate release tablet 10 mgJump to med 10 mg, oral, EVERY 4 HOURS PRN, Starting on 08/04/23 at 0639, Until Dina 08/22/23 at 1314, Pain, Routine documented in this encounter Orders Medications Ordered That Frederic ht Not Have Been Administered Count Last Ordered Date First Ordered Date insulin aspart U-100 (NOVOLO G FLEXPEN) injection 6 Units 1 08/22/2023 metFORMIN (GLUCOPHAGE-XR) ER tablet 1,000 mg 1 08/21/2023 metFORMIN (GLUCOPHAGE-XR) ER tablet 500 mg 2 08/21/2023 08/15/2023 oxyCODONE (ROXICODONE) immed iate release tablet 10 mg 6 08/20/2023 07/17/2023 HYDROmorphone-bupivacaine 10 mcg/ml-0.125% in NS 250 ml epidural 1 08/16/2023 insulin aspart U-100 (NOVOLO G FLEXPEN) injection 4-8 Units 4 08/16/2023 07/12/2023 insulin aspart U-100 (NOVOLO G FLEXPEN) injection 6-12 Units 3 08/16/2023 08/14/2023 insulin aspart U-100 (NOVOLO G FLEXPEN) injection 7-14 Units 1 08/15/2023 insulin glargine injection pen 48 Units 1 0 08/15/2023 insulin glargine injection pen 46 Units 2 0 08/14/2023 07/24/2023 insulin glargine injection pen 44 Units 2 0 08/13/2023 07/21/2023 insulin glargine injection pen 40 Units 2 0 08/12/2023 07/19/2023 potassium chloride SA (KLOR- CON M20) tablet 20 mEq 3 08/12/2023 07/06/2023 bisacodyL (DULCOLAX) suppository 10 mg 1 docusate sodium (COLACE) capsule 100 mg 1 0 08/09/2023 insulin aspart U-100 (NOVOLO G FLEXPEN) injection 5-10 Units 2 08/09/2023 07/21/2023 insulin aspart U-100 (NOVOLO G FLEXPEN) injection 6-11 Units 1 08/09/2023 insulin glargine injection pen 36 Units 1 0 08/09/2023 insulin glargine injection pen 38 Units 2 0 08/09/2023 07/17/2023 insulin glargine injection pen 32 Units 1 0 08/08/2023 insulin glargine injection pen 33 Units 1 0 08/07/2023 Sodium chloride - hypochloru s acid 0.033% solution (aka Vashe) (VASHE) 0.033 % external solution 3 08/07/2023 06/17/2023 fluconazole (DIFLUCAN) tablet 150 mg 3 07/2607/05/2023 potassium chloride (KLOR-CON ) packet 40 mEq 1 08/06/2023 HYDROmorphone (PF) (DILAUDID ) 0.5 mg/0.5 mL syringe 1 mg 1 08/05/2023 acetaminophen (TYLENOL) tablet 1,000 mg 7 0 08/04/2023 06/13/2023 insulin glargine injection pen 30 Units 4 0 08/04/2023 07/09/2023 oxyCODONE (ROXICODONE) immed iate release tablet 5 mg 5 08/04/2023 07/17/2023 insulin aspart U-100 (NOVOLO G FLEXPEN) injection 5-9 Units 1 2023 insulin glargine injection pen 28 Units 1 0 2023 lidocaine 5 % (LIDODERM) patch 2 Patch 5 06/15/2023 LORazepam (ATIVAN) tablet 0.5 mg 6 08/02/19 24 07/03/2023 acetaminophen (TYLENOL) solu tion unit dose cup 995 mg 4 08/01/2023 06/17/2023 cholecalciferol (Vitamin D3) tablet 2,000 Units 1 08/01/2023 HYDROmorphone (PF) (DILAUDID ) 0.5 mg/0.5 mL syringe 0.25 mg 1 08/01/2023 insulin glargine injection pen 25 Units 2 0 08/01/2023 07/31/2023 lactulose (CHRONULAC) 20 gra m/30 mL solution 45 mL 1 08/01/2023 magnesium hydroxide (MILK OF MAGNESIA) 400 mg/5 mL suspension 30 mL 1 08/01/2023 atropine 0.1 mg/mL syringe 0.5 mg 4 024 06/15/2023 ceFAZolin (ANCEF) syringe 2 g 1 07/31/2023 dextrose 5 %-0.45 % sodium c hloride infusion 2 07/31/2023 07/30/2023 diphenhydrAMINE (BENADRYL) i njection 12.5 mg 2 07/31/2023 06/26/2023 fentaNYL citrate (PF) injection 25-50 mcg 3 07/31/2023 06/26/2023 HYDROmorphone (PF) (DILAUDID ) 0.5 mg/0.5 mL syringe 0.3-0.5 mg 3 07/31/2023 06/26/2023 insulin aspart U-100 (NOVOLO G FLEXPEN) injection 9 07/31/2023 06/14/2023 insulin aspart U-100 (NOVOLO G FLEXPEN) injection 4-7 Units 2 07/31/2023 07/25/2023 insulin glargine injection pen 50 Units 2 0 07/31/2023 07/30/2023 lactated ringers (LR) infusion 3 07/31/2023 06/26/2023 metoclopramide (REGLAN) injection 10 mg 1 0 07/31/2023 naloxone (NARCAN) injection 0.2 mg 3 202306/26/2023 ondansetron (PF) (ZOFRAN) injection 4 mg 2 07/31/2023 06/26/2023 sodium chloride 0.9 % 2,000 mL with EPINEPHrine (ADRENALIN) 60 mL 1 07/31/2023 sodium chloride 0.9 % irrigation 5 07/31/1906/14/2023 lactulose (CHRONULAC) 20 gra m/30 mL solution 30 mL 3 07/29/2023 07/05/2023 HYDROmorphone (PF) (DILAUDID ) 0.5 mg/0.5 mL syringe 1 07/25/2023 HYDROmorphone (PF) (DILAUDID ) 0.5 mg/0.5 mL syringe 0.5 mg 5 07/25/2023 06/15/2023 magnesium oxide (MAG-OX) tablet 800 mg 1 magnesium sulfate 2 g in water 50 mL 7 06/2606/18/2023 pantoprazole (PROTONIX) injection 40 mg 4 0 07/22/2023 06/15/2023 pantoprazole (PROTONIX) tablet 40 mg 1 06/26 lidocaine 5 % (LIDODERM) patch 1 Patch 2 07/12/2023 ipratropium-albuteroL (DUONE B) 0.5 mg-3 mg(2.5 mg base)/3 mL nebulizer solution 3 mL 18 07/14/2023 06/21/2023 methocarbamoL (ROBAXIN) tablet 1,000 mg 1 0 07/13/2023 insulin aspart U-100 (NOVOLO G FLEXPEN) injection 3-5 Units 1 07/12/2023 insulin aspart U-100 (NOVOLO G FLEXPEN) injection 3-6 Units 1 07/12/2023 insulin glargine injection pen 35 Units 2 0 07/12/2023 sodium chloride soluble tablet 1,000 mg 2 0 07/12/2023 07/08/2023 HYDROmorphone (DILAUDID) tablet 2-4 mg 3 06/18/2023 melatonin tablet 6 mg 1 07/10/2023 sodium chloride soluble tablet 2,000 mg 1 0 07/10/2023 cloNIDine (CATAPRES) 0.2 mg/ 24 hr patch 1 Patch 2 07/09/2023 06/22/2023 metroNIDAZOLE (FLAGYL) tablet 500 mg 1 06/25 ascorbic acid (vitamin C) (V ITAMIN C) tablet 250 mg 1 07/05/2023 docusate sodium (COLACE) capsule 200 mg 2 0 07/05/2023 07/02/2023 furosemide (LASIX) injection 40 mg 8 202306/25/2023 senna (SENOKOT) tablet 2 Tablet 2 4 06/15/2023 EPINEPHrine 0.1 mg/mL injection 1 glycopyrrolate (ROBINUL) injection 0.2 mg 1 07/04/2023 LORazepam (ATIVAN) injection 0.5 mg 1 07/03 phenylephrine HCl in 0.9% Na Cl (NEO_SYNEPHRINE) 20 mg/250 mL (80 mcg/mL) infusion solution 2 07/04/2023 06/15/2023 propOFol (DIPRIVAN) 1000 mg in 100 mL infusion 3 07/04/2023 06/15/2023 rocuronium (ZEMURON) injection 100 mg 1 10/2023 sugammadex (BRIDION) injection 184 mg 1 10/2023 droNABinol (MARINOL) capsule 2.5 mg 2 07/0207/02/2023 furosemide (LASIX) 10 mg/mL injection 1 09/2023 hydrALAZINE (APRESOLINE) 10 mg in sodium chloride (NS) 0.9 % 50 mL IVPB 1 07/03/2023 iohexoL (OMNIPAQUE 350) solution 100 mL 1 0 07/03/2023 nystatin (MYCOSTATIN) powder 4 07/03/2023 06/26/2023 potassium chloride in water infusion 20 mEq 1 07/03/2023 potassium chloride SA (KLOR- CON M20) tablet 40 mEq 1 07/03/2023 furosemide (LASIX) tablet 40 mg 4 4 06/29/2023 ipratropium-albuteroL (DUONE B) 0.5 mg-3 mg(2.5 mg base)/3 mL nebulizer solution 2 07/02/2023 06/30/2023 megestroL (MEGACE) tablet 20 mg 1 polyethylene glycol 3350 ([place] RALAX) packet 17 g 3 07/02/2023 06/15/2023 QUEtiapine (SEROQUEL) tablet 25 mg 1 2023 [id number] fum-folic ac 7.5 mg iron-400 mcg tablet 1 Tablet 1 06/30/2023 nicotine (NICODERM CQ) 21 mg /24 hr patch 1 Patch 1 06/30/2023 albuterol inhaler 180 mcg 1 06/29/2023 furosemide (LASIX) injection 20 mg 3 202306/18/2023 acetaminophen (OFIRMEV) IV s olution 1,000 mg 18 06/26/2023 06/14/2023 calcium GLUconate 100 mg/mL (10%) injection 1,000 mg 2 06/26/2023 06/16/2023 Multivitamins with minerals + ferrous gluconate (CENTRUM) oral solution 15 mL 3 06/26/2023 06/16/2023 fentaNYL citrate (PF) injection 50 mcg 8 06/15/2023 insulin glargine injection pen 22 Units 1 0 06/24/2023 insulin glargine injection pen 18 Units 1 0 06/23/2023 LORazepam (ATIVAN) injection 1 mg 2 06/22/ 024 06/20/2023 promote 4 06/23/2023 06/16/2023 cloNIDine (CATAPRES) 0.3 mg/ 24 hr patch 1 Patch 1 06/22/2023 dextrose 10 % (D10W) infusion 2 06/22/2023 06/15/2023 insulin glargine injection pen 16 Units 1 0 06/22/2023 insulin regular (HUMULIN R, NOVOLIN R) 2 Units infusion pump bolus 2 06/22/2023 06/15/2023 insulin regular (NOVOLIN R) 100 Units in sodium chloride (NS) 0.9 % 100 mL infusion 2 06/22/2023 06/15/2023 sodium chloride 0.9 % (NS) infusion 3 06/2106/14/2023 dextrose 50 % solution 12.5 g 3 06/21/2023 06/14/2023 glucagon injection 1 mg 4 06/21/2023 04/10/2023 insulin glargine injection pen 10 Units 1 0 06/21/2023 insulin glargine injection pen 7 Units 1 amLODIPine (NORVASC) tablet 10 mg 1 024 atropine 0.1 mg/mL syringe 2 06/20/2023 0 06/18/2023 cloNIDine (CATAPRES) 0.1 mg/ 24 hr patch 1 Patch 2 06/20/2023 folic acid 1 mg in sodium ch loride (NS) 0.9 % 50 mL IVPB 2 06/20/2023 Free Water (bolus dose) 60 mL 2 06/20/2023 06/16/2023 hydrALAZINE (APRESOLINE) injection 10 mg 1 06/20/2023 labetaloL (TRANDATE) injection 20 mg 3 05/2706/19/2023 lidocaine (XYLOCAINE) 2 % vi scous solution 5 mL 2 06/20/2023 06/15/2023 phenylephrine-lidocaine 0.25 %-3 % (CO-PHENYLCAINE) topical solution 5 mL 2 06/20/2023 0 06/15/2023 thiamine (VITAMIN B-1) 100 m g in sodium chloride (NS) 0.9 % 50 mL IVPB 2 06/20/2023 thiamine (VITAMIN B-1) 500 m g in sodium chloride (NS) 0.9 % 50 mL IVPB 2 06/20/2023 thiamine (VITAMIN B-1) injection 500 mg 2 0 06/20/2023 thiamine (VITAMIN B1) tablet 100 mg 2 06/19 amLODIPine (NORVASC) tablet 5 mg 1 06/19/19 cholecalciferol (VITAMIN D3) oral drops 1,000 Units 1 06/19/2023 dextrose 50 % solution 0-50 g 1 06/19/2023 hydrALAZINE (APRESOLINE) injection 5 mg 1 0 06/19/2023 insulin regular (NOVOLIN R) injection 10 Units 1 06/19/2023 LORazepam (ATIVAN) tablet 1 mg 4 06/19/2023 06/18/2023 nitroglycerin (NITROSTAT) SL tablet 0.4 mg 2 06/19/2023 06/18/2023 sodium hypochlorite (DAKINS) 0.25 % external solution 3 06/19/2023 06/14/2023 amino acids-protein hydrolys ate (PRO SOURCE NOCARB) packet 30 mL 3 06/18/2023 06/17/2023 Free Water (bolus dose) 120 mL 1 06/18/2023 Free Water (bolus dose) 240 mL 1 06/18/2023 papain-alpha amylase-cellula se (CLOG ZAPPER) 2-5 mL 3 06/18/2023 06/16/2023 peptamen intense VHP 2 06/18/2023 phenylephrine-lidocaine 0.25 %-3 % (CO-PHENYLCAINE) topical solution 1 Bottle 1 06/18/2023 sodium chloride 0.9 % 120 mL 1 06/18/2023 ascorbic acid (vitamin C) (V ITAMIN C) tablet 500 mg 1 06/17/2023 zinc sulfate (ZINCATE) capsule 220 mg 1 amino acids-protein hydrolys ate (PRO SOURCE NOCARB) packet 60 mL 1 06/16/2023 calcium CHLORide 100 mg/mL ( 10%) injection 1,000 mg 1 06/16/2023 EPINEPHrine 5 mg/250 mL in NS infusion 1 fentaNYL citrate (PF) injection 100 mcg 1 0 06/16/2023 Free Water (bolus dose) 30 mL 1 06/16/2023 insulin aspart U-100 (NOVOLO G FLEXPEN) injection 0-20 Units 1 06/16/2023 ketAMINE (KETALAR) 250 mg in NaCl 0.9% 25 mL syringe 1 06/16/2023 ketAMINE in NaCl, iso-osmoti c (KETALAR) 50 mg/5 mL (10 mg/mL) IV injection 1 06/16/2023 lactulose (CHRONULAC) 20 gra m/30 mL solution 15 mL 1 06/16/2023 midazolam (PF) (VERSED) injection 2 mg 1 calcium CHLORide 100 mg/mL ( 10%) injection 2,000 mg 2 06/15/2023 dexmedeTOMIDine in 0.9 % NaC L (PRECEDEX) 400 mcg/100 mL infusion 1 06/15/2023 dextrose 50 % solution 12.5-25 g 1 06/15/19 electrolyte-A (PLASMALYTE-A) bolus 500 mL 06/15/2023 enoxaparin (LOVENOX) injection 40 mg 2 05/2706/13/2023 LORazepam (ATIVAN) 2 mg/mL injection 2 05/27 methocarbamoL (ROBAXIN) tablet 750 mg 1 norepinephrine (LEVOPHED) 8 mg in NS 250 mL infusion 2 06/15/2023 OLANZapine (ZYPREXA) tablet 10 mg 1 024 OLANZapine (ZYPREXA) tablet 5 mg 2 06/15/19 oxyCODONE (ROXICODONE) immed iate release tablet 5-10 mg 1 06/15/2023 sodium bicarbonate 8.4 % injection 100 mEq 1 06/15/2023 vancomycin 1,500 mg central line syringe 1 06/15/2023 alteplase (CATHFLO ACTIVASE) injection 2 mg 1 06/14/2023 calcium GLUconate 100 mg/mL (10%) injection 2,000 mg 06/14/2023 calcium GLUconate 3,000 mg i n dextrose 5% (D5W) 100 mL IVPB 06/14/2023 HYDROmorphone (PF) (DILAUDID ) 0.5 mg/0.5 mL syringe 0.25-0.5 mg 3 06/14/2023 06/13/2023 hydrOXYzine (ATARAX) tablet 12.5 mg 1 06/13 lidocaine (PF) 10 mg/mL (1 % ) injection 2 mg 06/14/2023 lidocaine (PF) 10 mg/mL (1 % ) injection 5 mg 06/14/2023 meropenem (MERREM) 1 g in so dium chloride (NS DDDS) 0.9% 50 ml IVPB 06/14/2023 naloxone (NARCAN) injection 0.1 mg 2023 sodium chloride 0.9 % BOLUS 500 mL 2023 sodium chloride 3 % infusion 1 06/14/2023 vancomycin (VANCOCIN) 1,250 mg in sodium chloride (NS) 0.9 % 250 mL IVPB 2 06/14/2023 cefepime (MAXIPIME) 2,000 mg in sodium chloride (NS MBP) 50 mL IVPB 1 06/13/2023 clindamycin in dextrose 5 % (CLEOCIN) IVPB 900 mg 06/13/2023 electrolyte-A (PLASMALYTE-A) solution vancomycin (VANCOCIN) 20 mg/ kg in sodium chloride (NS) 0.9 % 500 mL IVPB 1 06/13/2023 Lab Orders Without Results Count Last Ordered D ate First Ordered Date POCT GLUCOSE, INTERFACED 2 06/19/2023 PREPARE UNCROSSMATCHED RBCS 1 06/14/2023 EKG Orders Without Results Count Last Ordered D ate First Ordered Date EKG 12-LEAD 1 06/25/2023 Diet Count Last Ordered Date First Orde red Date DISCHARGE DIET 1 08/22/2023 Nursing Count Last Ordered Date First Orde red Date ACTIVITY INSTRUCTIONS 1 08/22/2023 BATHING INSTRUCTIONS 2 08/22/2023 DRIVING INSTRUCTIONS 2 08/22/2023 WOUND CARE INSTRUCTIONS 1 08/22/[address] PL[address] SEQUENTIAL COMPRESSION DEVICE 1 07/30 INFO WOUND VAC TO BEDSIDE 1 07/10/2023 REMOVE DRAINS/TUBES 1 06/29/2023 VITAL SIGNS 2 06/26/2023 06/23/2023 NURSING COMMUNICATION 7 06/22/20232023 INSERT SMALL BORE FEEDING TUBE 1 06/20/2023 BED POSITION 1 06/18/2023 FLUSH ENTERAL TUBE MEDICATIONS 1 06/18/2023 NASOGASTRIC TUBE INSERTION 1 06/15/2023 REMOVE ARTERIAL LINE 1 06/15/2023 REPLACE OROGASTRIC TUBE 1 06/15/2023 PULSE OXIMETRY 1 06/13/2023 VTE PHARMACOLOGIC PROPHYLAXI S CURRENTLY ORDERED OR ON ALTERNATIVE THER 1 06/13/2023 Consult Count Last Ordered Date First Orde red Date CONSULT DIABETES EDUCATION 2 08/09/2023 0 07/12/2023 CONSULT NUTRITION 3 07/15/2023 06/16/2023 CONSULT PALLIATIVE CARE 1 06/20/2023 CONSULT ENDOCRINOLOGY 1 06/16/2023 Respiratory Care Count Last Ordered Date First Ordered Date AIRWAY CLEARANCE THERAPY 10 07/03/202302/2023 NEBULIZER TX INTERMITTENT 6 07/03/2023 RESPIRATORY CARE EVALUATION ONLY 1 07/03/19 DRY POWDERED OR METERED DOSE INHALER 1 05/0 05/2023 EXTUBATION 3 06/17/2023 06/15/2023 PROCESS MANAGER Count Last Ordered Date First Orde red Date PROCESS MANAGER CLINICAL SWALLOW EVALUATION AND TREAT 1 06/23/2023 IV Count Last Ordered Date First Orde red Date IV REQUEST 13 08/04/2023 06/14/2023 PICC COVER INSPECTOR 1 06/14/2023 Admission Count Last Ordered Date First Orde red Date ADMIT TO INPATIENT 1 06/13/2023 Transfer Count Last Ordered Date First Orde red Date TRANSFER PATIENT 4 07/04/2023 06/23/2023 Discharge Count Last Ordered Date First Orde red Date DISCHARGE PATIENT 1 08/22/2023 Legal Count Last Ordered Date First Orde red Date MISCELLANEOUS DISCHARGE INSTRUCTIONS 1 07/27 Case Request Count Last Ordered Date First Orde red Date CASE REQUEST OPERATING ROOM 6 07/29/2023 06/14/2023 ADT Patient Update Count Last Ordered Date Firs t Ordered Date UPDATE PATIENT STATUS 1 08/09/2023 documented in this encounter Care Teams Manager Motor Relationship Specialty Start Date End Date Unknown, Provider, PCP - General 06/13/23 documented as of this encounter
--- OUTSIDE RECORDS SUMMARY | 2023-09-11 15:38 | XMS_ITS | Encounter Summary ---
Author Organization [facility] [place] Address [address] [place] [address] Care Team Providers Care Ammunition And Explosives Handler Name Role Phone Unknown, Provider Primary Care Provider [phone] Reason for Visit * Auth/Cert (Routine) Specialty Diagnoses / Procedures Referred By Jaja auguste Referred To Contact Diagnoses Necrotizing fasciitis ([facility]) necrotizing fasciitis Referral ID Status Reason Start Date Expiration Date Visits Re quested Visits Authorized [id number] 1 1 Encounter Details Date Type Department Care Team ([facility] st Contact Info) Description 06/19/2023 13:09 EDT Anesthesia Event [facility] OR [address], [place] [address] Tigre Olmos MD PhD [address] [phone] Mary Conti AA [address] [phone] Anesthesia Record Procedure Summary Procedure Name Responsible Anesthesiologist Anesthesia Start Time Anesthesia Stop Time Incision & drainage gluteal wound (Right: Buttocks) Tigre Olmos MD PhD 06/19/23 1309 06/19/23 1510 Events Date Time Event Comment 06/19/2023 1309 An Start The patient was re-evaluated immediately before moderate or deep sedation use, before anesthesia induction, or before the anesthesia procedure. 1309 An Start Data 1325 An Induction The patient was reevaluated immediately before moderate or deep sedation use and before anesthesia induction. 1330 An Intubation 1346 Anesthesia Ready 1447 An Extubation 1449 an stop data 1510 Handoff to RN I completed my handoff to the receiving nurse during which we: 1. Identified the patient 2. Identified the responsible provider 3. Reviewed the pertinent medical history 4. Discussed the surgical course 5. Reviewed intra-op anesthesia management and issues during anesthesia 6. Set expectations for post-procedure period 7. Allowed opportunity for questions and acknowledgement of understanding. 1510 An Stop Meds Name Total fentanyl citrate (PF) injection 25 mcg ondansetron (PF) (ZOFRAN) injection 4 mg propOFol (DIPRIVAN) injection 130 mg rocuronium 10 mg/mL vial 50 mg sugammadex 100 mg/mL 2 mL vial 200 mg albuterol inhaler 8 Puff acetaminophen 10 mg/ml 100 mL infusion 1 ,000 mg lactated ringers (LR) infusion 700 mL * [...] Harper Hutchinson RN 07/15/23 0000 by Paz Barth, KIESHA Rectal Tube 06/13/23; Patient ar rived with LDA; With balloon; 07/04/23; (1999 Rectal tube fully inflated and out upon assessment) 06/13/23 0000 by Harper Hutchinson RN 07/04/23 0000 by Karley Patton, KIESHA Peripheral IV 06/14/23; 0157; 05/27 08/18; 20; 2.5; B Khoury Introcan; Anterior, Left; Upper Arm; Inserted by RN, Ultrasound Guided; 1; None; 2% Chlorhexidine with IPA; 06/24/23; 0400; Removed unobserved; No complications 06/14/23 0157 by Juliet Gomez, KIESHA 06/24/23 0400 by Grace CruzKIESHA CVC Single Lumen 06/16/23; 1104; Introducer; Right; Subclavian vein; At bedside by Provider; 6; 06/22/23; 1000; Per order; No complications, Catheter intact, Dressing applied 06/16/23 1104 by Danya Vang RN 06/22/23 1000 by Shelly Gaytan, KIESHA Peripheral IV 06/17/23; 0825; 05/27 11/18; 22; 1.25; B Khoury Introcan; Anterior, Left; Forearm; Inserted by RN, Ultrasound Guided; 1; None; 2% Chlorhexidine with IPA; 06/24/23; 0400; Removed unobserved; No complications 06/17/23 0825 by Geovanny Tavarez RN 06/24/23 0400 by Grace Cruz RN NG/OG Tube 06/18/23; 1200; Inse rted by RN, Ultrasound Guided; Nasoduodenal; 12 fr; Left nostril; 95 cm; Yes; 06/20/23; 0645 06/18/23 1200 by Nacho Ozuna RN 06/20/23 0645 by Claus Gillespie RN Wound 06/19/23; 0700; Left ; Elbow; small blanchable wound; (unknown); 06/23/23; 0800; Other 06/19/23 0700 by Tomas Alarcon RN 06/23/23 0800 by Shelly Gaytan, KIESHA Non-Surgical Airway 06/19/23; 1349 (gia oleary via procedure documentation); 06/19/23; 1447 06/19/23 1349 by Tadeo Seals AA 06/19/23 1447 by Tadeo Seals AA documented in this encounter Social History Tobacco [...] OR Notes * Anesthesia Postprocedure Evaluation - Tadeo Seals AA - 06/19/2023 1510 EDT Patient: Jennifer James Vital signs were reviewed with the recovery nurse. Complete vitals history is available in the Epicflowsheets. Vitals Value Taken Time BP 195/81 06/19/23 1500 Temp 36.0 06/19/23 1510 Resp 39 06/19/23 1510 Pulse From Oximetry 99 BPM 06/19/23 1510 SpO2 95 % 06/19/23 1510 Heart Rate 100 BPM 06/19/23 1510 Vitals shown include unvalidated device data. Last Pain Score - Numeric Pain Level (Scale 1-10): 7 Type of Anesthesia - general Anesthesia Post Evaluation Post-procedure vitals reviewed and are stable. Level of consciousness: alert and oriented and awake Temperature status: normothermia Respiratory status: airway patent, face mask and stable Cardiovascular status: acceptable, stable, within patient's normal range and appropriate for condition Hydration status: adequate Nausea/Vomiting: none Pain management: adequate Post-Op Assessment: patient tolerated procedure well with no complications Patient participation: unable to participate due to mental status Disposition: inpatient Anesthesia Complications: No apparent anesthesia complications * Anesthesia Procedure Notes - Tadeo Seals AA - 06/19/2023 1348 EDT Associated Order(s): Airway Airway Date/Time: 06/19/2023 13:30 Urgency: elective Airway not difficult General Information and Staff Patient location during procedure: OR Anesthesiologist: Tigre Olmos MD PhD Resident/PHOTOGRAPHY SPOTTER: Tadeo Seals AA Performed: resident/PHOTOGRAPHY SPOTTER/AA Performed by: Tadeo Seals AA Authorized by: Tigre Olmos MD PhD Indications and Patient Condition Indications for airway [...] 21 Number of attempts at approach: 1 * Anesthesia Preprocedure Evaluation - Tigre Olmos MD PhD - 06/19/2023 0914 EDT Anesthesia Preprocedure Evaluation Patient Medical History, including Anesthesia History reviewed. Chart and Nursing Notes reviewed, including NPO status and Medication History. Additional ROS/History Findings: Jennifer James is a 52 year old female presenting for I&D of gluteal wound. From Surgery note: 52 y.o. female with a history of HTN and T2DM who presented as a transfer from [facility] on 06/12 with necrotizing fasciitis. S/p debridement x2 at OSH and s/p debridement at [facility] on 06/14. Post-operative bradycardic arrest with ROSC after 2 rounds CPP (cardiology suspect 2/2 third degree HB from manipulation of ETT). Coded a second time following extubation while she was on dexmedetomidine. Has transvenous pacing wires in place now. Ongoing serial debridements with hope for partial closure and wound vac placement today or this week. Currently extubated on 4 LPM NC . Access: Central line, 22G L arm, 20G Left arm Per SICU, patient does not have the capacity to sign her own consents. Attempted to call her partner Teja at [phone], but the call was not answered. Plan to obtain serial consent for I&D of gluteal wound. Anesthesia Record: 06/17/23 - I&D rectal abscess - GA (already intubated) 06/16/23 - Intubation - [place] 4 used (3 is preferable per note) 7.5 tube, OPA for masking 06/14/23 - Negative pressure wound therapy - GA OPA used, [place] 4 grade 2a view 7.0 tube Transfused RBC Latest Reference Range & Units 06/19/23 02:58 pH, Arterial, i-STAT 7.35 - 7.45 7.26 (L) PCO2, Arterial, i-STAT 35 - 45 mmHg 46 (H) pO2, Arterial, i-STAT 80 - 105 mmHg 162 (H) TCO2, Arterial, i-STAT 22 - 26 mmol/L 22 O2 Saturation, Arterial, i-STAT 95 - 98 % 99 (H) Base Excess(+) / Deficit(-), Arterial, i-STAT -2 - 3 mmol/L -6 (L) Latest Reference Range & Units 06/19/23 05:03 Sodium 136 - 145 mmol/L 136 Potassium 3.5 - 5.0 mmol/L 5.6 (H) Chloride 96 - 110 mmol/L 107 CO2 22 - 32 mmol/L 20 (L) Anion Gap 5 - 14 mmol/L 9 BUN 10 - 26 mg/dL 31 (H) Creatinine 0.52 - 1.04 mg/dL 0.52 GFR, Calculated >60 mL/min/1.73m2 112 Glucose, Serum 70 - 99 mg/dl 180 (H) Calcium 8.5 - 10.5 mg/dL 8.4 (L) Latest Reference Range & Units 06/19/23 05:04 Hemoglobin 11.6 - 15.2 g/dL 10.5 (L) HCT 34.9 - 44.4 % 31.0 (L) Allergies Allergen Reactions Aspirin Hives Cymbalta [Duloxetine] Other (See Comments) Depression, suicidal ideation Lyrica [Pregabalin] Nausea And Vomiting Penicillins Hives Review of Systems Respiratory: Positive for cough and shortness of breath. All other systems reviewed and are negative. No past medical history on file. Relevant Problems CARDIOVASCULAR (+) Cardiopulmonary arrest with successful resuscitation (HCC-CMS) (+) Complete heart block (HCC-CMS) ENDO/GI (+) Type 2 diabetes mellitus Physical Exam Airway Mallampati: II TM distance: >3 FB Neck ROM: full Cardiovascular Rhythm: regular Rate: normal Dental - normal exam (+) upper dentures, lower dentures Comments: edentulous Pulmonary Breath sounds clear to auscultation (+) rhonchi Comments: Loud adventitious breath sounds Abdominal (+) obese Anesthesia Plan ASA 4 Anesthesia Type - general Block for post-op pain? No Anesthesia plan and risks discussed. Informed consent obtained from patient and legal guardian (discussed care with son and partner). Specific risks discussed were nausea, vomiting and dental injury (possible allergic reaction). Code status discussed? No The preoperative history and physical which was performed within 30 days of this procedure, has been reviewed and the clinically appropriate elements of the physical examination have been repeated. There are no changes to the documented history and physical or, if so, such changes are documented inthis note Risk of aspiration or allergic reaction discussed.Discussed plan with appropriate SAGAR/ Director Of Partnerships when involved. PAT Note Notes from 05/20/23 through 06/19/23 No notes of this type exist for this encounter. documented in this encounter Plan of Treatment Not on file documented as of this encounter Procedures Procedure Name Priority Date/Time Associated Diagnosis Comments ANESTHESIA INTUBATION Routine 06/19/2023 13:30 EDT documented in this encounter Results * CT AN ELECTIVE ENDOTRACHEAL AIRWAY (06/19/2023 13:30 EDT) Narrative Tadeo Seals AA - 06/19/2023 13:30 EDT Tadeo Seals AA ? 06/19/2023 13:49 Airway Date/Time: 06/19/2023 13:30 Urgency: elective Airway not difficult General Information and Staff Patient location during procedure: OR Anesthesiologist: Tigre Olmos MD PhD Resident/PHOTOGRAPHY SPOTTER: Tadeo Seals AA Performed: resident/PHOTOGRAPHY SPOTTER/AA Performed by: Tadeo Seals AA Authorized by: [...] Tigre Olmos MD PhD ANESTHE HOLLAND ORDERABLES documented in this encounter Visit Diagnoses Not on filedocumented in this encounter Administered Medications Inactive Administered Medications - up to 3 most recent administrations Medication Order MAR Action Action Date Dose Rate Site acetaminophen (OFIRMEV) IV solution intravenous, PRN, Starting on Sat06/19/23 at 1446, Until Sat06/19/23 at 1510, Routine, Anesthesia Intraprocedure Given 06/19/2023 14:46 EDT 1,000 mg albuterol inhaler inhalation, PRN, Starting on Sat06/19/23 at 1332, Until Sat06/19/23 at 1510, Routine, Anesthesia Intraprocedure Given 06/19/2023 13:32 EDT 8 Puffs fentaNYL citrate (PF) injection intravenous, PRN, Starting on Sat06/19/23 at 1400, Until Sat06/19/23 at 1510, Routine, Anesthesia Intraprocedure Given 06/19/2023 14:00 EDT 25 mcg lactated ringers (LR) infusion intravenous, FA IP EQF CONTINUOUS PRN FOR ONE STEP MEDS, Starting on Sat06/19/23 at 1309, Until Sat06/19/23 at 1510, Routine, Anesthesia Intraprocedure New Bag 06/19/2023 13:09 EDT ondansetron (PF) (ZOFRAN) injection intravenous, PRN, Starting on Sat06/19/23 at 1418, Until Sat06/19/23 at 1510, Routine, Anesthesia Intraprocedure Given 06/19/2023 14:18 EDT 4 mg propOFol (DIPRIVAN) injection intravenous, PRN, Starting on Sat06/19/23 at 1325, Until Sat06/19/23 at 1510, Routine, Anesthesia Intraprocedure Given 06/19/2023 13:32 EDT 50 mg Given 06/19/2023 13:25 EDT 80 mg rocuronium (ZEMURON) injection intravenous, PRN, Starting on Sat06/19/23 at 1325, Until Sat06/19/23 at 1510, Routine, Anesthesia Intraprocedure Given 06/19/2023 13:25 EDT 50 mg sugammadex (BRIDION) injection intravenous, PRN, Starting on Sat06/19/23 at 1444, Until Sat06/19/23 at 1510, Routine, Anesthesia Intraprocedure Given 06/19/2023 14:44 EDT 200 mg documented in this encounter Care Teams Ammunition And Explosives Handler Relationship Specialty Start Date End Date Unknown, Provider, PCP - General 06/13/23 documented as of this encounter
--- OUTSIDE RECORDS SUMMARY | 2023-09-11 15:42 | XMS_ITS | Encounter Summary ---
Author Organization [facility] Address [address] [place] [address] Care Team Providers Care Kitchen Lead Name Role Phone Unknown, Provider Primary Care Provider [phone] Reason for Visit * Auth/Cert (Routine) Specialty Diagnoses / Procedures Referred By Jaja auguste Referred To Contact Diagnoses Necrotizing fasciitis ([facility]) necrotizing fasciitis Referral ID Status Reason Start Date Expiration Date Visits Re quested Visits Authorized [id number] 1 1 Encounter Details Date Type Department Care Team (Late st Contact Info) Description 06/17/2023 13:06 EDT - 06/17/2023 14:16 EDT Surgery [facility] OR [address] [place] [address] [id number] Kyle Mars MD [address] [place] [address], [facility], [address] [place] [phone] INCISION AND DRAINAGE, ABSCESS, ISCHIORECTAL OR PERIRECTAL [65877 (CPT??)] Surgery Details Date/Time Status Location OR Service Patient Class Case Class Case Type Trauma Case? 06/17/23 1306 Posted [facility] OR [facility] Trauma Inpatient G - Less than 48 hours Panel 1 Procedure LRB Anes Op Region Wound Class Comments INCISION AND DRAINAGE, ABSCESS, ISCHIORECTAL OR PERIRECTAL N/A General Class IV/ Dirty or Infected Surgeon Surgeon Role Service Panel Kyle Mars MD Primary Trauma 1 Dana Miner MD Resident - Assisting General 1 documented in this encounter Social History Tobacco Use Types Packs/Day Years Used Date Smoking Tobacco: Former Cigarettes 1.5 38.3 1 986 - 06/12/2023 Smokeless Tobacco: Never Tobacco Cessation:Counseling Given: Not Answered Sex and Gender Information Value Date Recorded Sex Assigned at Not on file Gender Identity Female 06/15/2023 0:35 EDT Sexual Orientation Not on file documented as of this encounter Last Filed Vital Signs Vital Sign Reading Time Taken Comments Blood Pressure 146/77 06/17/2023 1300 EDT Pulse 82 06/14/2023 2013 EDT Temperature 36.8 ??C (98.2 ??F) 06/17/2023 1200 EDT Respiratory Rate 14 06/17/2023 1355 EDT Oxygen Saturation 100% 06/17/2023 1355 EDT Inhaled Oxygen Concentration - - Weight 86.2 kg (190 lb) 06/14/2023 0000 EDT Height 160 cm (5' 3) 06/14/2023 0000 EDT Body Mass Index 31.54 07/31/2023 1029 [...] Hospital Problems Diagnosis Date Noted *Necrotizing fasciitis ([facility]) 06/13/2023 Type 2 diabetes with complication ([facility]) 07/12/2023 Type 2 diabetes mellitus with peripheral neuropathy ([facility]) 07/12/2023 Respiratory insufficiency 07/04/2023 Insufficiency, respiratory, acute 06/26/2023 Electrolyte and fluid disorder 06/26/2023 Acute respiratory failure with hypoxia ([facility]) 06/26/2023 Palliative care by specialist 06/20/2023 Complete heart block ([facility]) 06/17/2023 Cardiopulmonary arrest with successful resuscitation ([facility]) 06/15/2023 Type 2 diabetes mellitus [...] and T2DM [facility] with right gluteal necrotizing fasciitis. On 06/13 [...] placement to the wound bed with a group sales representative from their company. On 07/02 [...] medications from the pharmacy. Re-routed prescriptions to [facility] in [facility]. Allergies and Immunizations Allergies Allergen Reactions Apple [...] ??C (97.7 ??F) 97 % -- -- 08/21/23 2040 127/75 20 36.8 ??C (98.3 ??F) -- [...] results for input(s): PHISTAT, PCOISTAT, POISTAT, POCTCO2, F8YAUTAD, POCFIO2 in the last 72 hours. No results for input(s): CK, MB, CKMBINDEX, TROPONINI in the last 72 hours. Discharge Follow Up Home with Home Health for Physical Therapy, nursing home ACS follow up in clinic PCP follow [...] you for your participation. Authorizing Provider: Meaghan Ramírez PA-C Amb Consult/Follow Up Acute Care Surgery/Trauma/Burn Reason for Request: p/o STSG 07/30. Authorizing Provider: Meaghan Ramírez PA-C Amb Consult/Follow Up Primary Care Physician Outside of Network Reason for Request: hospital discharge, new insulin, metformin, hypertension medications and pain medications Authorizing Provider: Meaghan Ramírez PA-C [facility] ([place] [facility]) I certify that this patient is under my care and that I, or another Medicare allowed practitioner (, DO, MADELINE) working with me, had a byls-rc-itgy encounter with this patient on this date: 08/22/2023 The discharge summary or progress note will provide further details that support the need for the home health services and the plan of care.: Yes Enter the allowed practitioner (DO DANELLE, MADELINE) who will provide oversight of this patient's home heatlh care needs and plan of care: PCP, [facility] clinic Some payers require a patient to [...] management/education, wound care) Acute therapies (includes PT, BANKING ANALYST) Nursing skilled care requested: Nursing assessment Wound care prison assessment needed related to this encounter: Skin Integrity Wound, Ostomy or Incontinence Assessment Long Term Referral - Wound Care: (Please include care [...] Site 2: Other Additional services available with nursing home: Occupational therapy Social work Occupational Therapy (Long Term/PT referral req'd): Yes Occupational Therapy for: ADL Training Social work (Long Term/PT referral req'd): Yes Social Work Referral: Assess Residential Planning Needs Therapies skilled care requested: Physical Therapy Physical therapy is needed for: Evaluation Safety Gait/Mobility Assessment and Training Post Surgical Additional services available with PT/BANKING ANALYST: Occupational therapy Social work Authorizing Provider: Meaghan [...] Tablet 08/23/2023 09/22/2023 Blood-Glucose Meter,Continuous (DEXCOM G7 FIELD ARTILLERY TARGETING TECHNICIAN) miscIndications:Type 2 diabetes mellitus with hyperglycemia, with long-term current use of insulin (HCC-CMS) [...] x 3/16 Brand: BD Ultra Fine Mini 4 pen needles to [...] breakfast and dinner. . 120 Tablet 08/22/2023 bmfjrezj-phr-scoj fum-folic ac 7.5 mg iron-400 mcg tablet [...] skin once a week. 3 Patch 08/27/2023 uhzdpjlo-tpo-wmkz fum-folic ac 7.5 mg iron-400 mcg tablet [...] x 3/16 Brand: BD Ultra Fine Mini 4 pen needles to [...] ulcer, with long-term current use of insulin ([facility]) 1 Device by misc (non-drug; combo route) route every 10 days. 3 Each 1 08/22/2023 Blood-Glucose Meter,Continuous (DEXCOM G7 FIELD ARTILLERY TARGETING TECHNICIAN) miscIndications:Type 2 diabetes mellitus with hyperglycemia, with long-term current use of insulin ([facility]) 1 Device by misc (non-drug; [...] skin once daily. 15 mL 08/23/2023 08/22/2023 ycsbrlmm-qby-aaos fum-folic ac 7.5 mg iron-400 mcg tablet [...] Departure Means Destination Comment s [facility] documented in this encounter Progress Notes * Sam Seay OT - 08/22/2023 1114 EDT [facility] Rehabilitation Therapy Acute Therapy [facility] Occupational Therapy Discontinue/Discharge Note Date: 08/23/2023 SUBJECTIVE: None OBJECTIVE: The patient has been discharged from the hospital. Please refer to the Occupational Therapy Initial Evaluation Note for details. ASSESSMENT: Unable to assess her current status as the patient was not seen for any additional therapy sessions. GOALS: All goals discontinued. PLAN: Discontinue occupational therapy. Alejo Emmanuel) WAYLON Seay 08/23/2023 12:46 * Nabila [place] NP - 08/22/2023 0985 EDT Endocrine/Diabetes Follow Up/Progress Note Admit Date: [...] Consistent Carb) Social Information: Single, Lives in [facility], has male partner. 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 Unsure of family history [...] 2055 08/21/23 0733 08/21/23 1201 08/21/23 1729 08/21/238 08/22/23 0734 GLUCOSEPOC 130* 85 139* 114* [...] 5. FS: AC/HS/PRN, 6. Has met with life educator and is using a Dexcom 7 CGM. [...] supports at bedside. Friend Sarah and partner Carey to provide transportation and arrive today by 1100. Referred to [facility] for Long Term/ PT/ OT/ SW services. Team to please include specific dressing orders to TIME CLOCK REPAIRER. Nursing to please call report to [phone]. Patient has recommended DME at home. Will provide scripts for any additional equipment needs. Nursing to please provide all recommended dressing supplies for home. Prescription medications to be sent to [facility]. Patient referred to 'Meds to Beds' program; Pharmacy to deliver/ review any prescription medications with patient at bedside prior to discharge. Nursing to please notify Pharmacy once discharge orders received in order to schedule delivery (Meds to Beds [id number]). Nedra Armendariz RN CM [facility] Department (Available via [employer]xia) * Nabila [place] NP - 08/21/2023 1635 EDT Endocrine/Diabetes Follow Up/Progress Note Admit Date: [...] Consistent Carb) Social Information: Single, Lives in [facility], has male partner. 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 Unsure of family history [...] Data Review: Labs: Recent Labs 08/18/23 1735 08/18/23205008/19/23 0735 08/19/23 1126 08/19/23 2141 08/20/23 0745 08/20/23 1206 08/20/23 1819 08/20/23205408/21/23 0733 08/21/23 1201 GLUCOSEPOC 97 142* 139* [...] 5. FS: AC/HS/PRN 6. Has met with life educator and is using a Dexcom 7 CGM. [...] Nabila [place] NP 08/21/2023 16:35 * Grupo Hawley, OT - 08/21/2023 1140 EDT [facility] Rehabilitation Therapy Acute Therapy [facility] Occupational Therapy Encounter Note Date of Service: [...] Present for the Therapy Session Comments: Nurse, TABLET COATER, CM Interventions Included Procedures: Therapeutic activities Skilled [...] does not require w/c for household mobility Director Emergency Department Shaun erwin Discussion with patient and CM re: accessibility [...] the End of the Therapy Session Comments: TABLET COATER present Patient/Family Education: Education Topics Topics: d/c planning, DME recommendations Safety: Fall prevention Learner Learner: Patient, Other (CM) Method: Verbal Team Communication Communicated with: Nurse, land surveying survey worker, Other (TABLET COATER) When: Prior to therapy session, After therapy session By: Fpfb-px-wyiv communication, Other (secure chat) About: Nurse: plan for session TABLET COATER/CM: barriers to d/c, progress in therapy, DME recommendations ASSESSMENT: Della Kalyn Browning was received for OT treatment session [...] with walk in shower, BSC) Dressing/Grooming/Feeding Equipment: Director Emergency Department Mobility Equipment: Walker, Wheelchair (walker tray) Walker [...] 15:02 * Nedra Armendariz RN - 08/20/2023 0734 EDT [facility] Department of Case Management and Social Work Case Management Progress Note Patient Name Level of Care and Accommodation Code: Patient Class: Medically Ready: Y/N Della Browning Acute Long Term Level 1 Inpatient N Primary Dx: Decisional Capacity: Y/N Primary Support/ CareGiver: Advance Directive Necrotizing fasciitis (HCC-CMS) Y N/a Advance Directives (For Healthcare) Healthcare [...] with goal for home with home services. /Abisai CM Plan Chart reviewed and updates received from Primary team this morning in rounds. Met with patient at bedside to provide check-in and to discuss pending discharge plan for home by end of week. Discussed having friend/ partner present at bedside on Tuesday 08/22 for wound care education prior to discharge. Will also require Home Health for Long Term/ PT/ OT services for home. Goal for HH Nursing x3/ week for wound care assessment and dressing changes. This CM will continue to follow. Please reach out with any additional questions/ concerns regardingeventual dispo plan for home. /LeonorN CM E-Signature Nedra Armendariz RN CM [facility] Department (Available via [employer]) 08/20/23 16:49 * Grupo Hawley, OT - 08/20/2023 1431 EDT [facility] Rehabilitation Therapy Acute Therapy [facility] Occupational Therapy Encounter Note Date of Service: [...] to therapy session, After therapy session By: Vlvz-rb-fthz communication, Other (secure chat) About: Nurse: plan [...] recommendation is home with home health and 24/ assist from significant other once plan is [...] Consistent Carb) Social Information: Single, Lives in [facility], has male partner. 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 Unsure of family history [...] today. Pt looking forward tostarting CGM with PABLITO later this afternoon. Will continue to monitor [...] midnight 5. FS: AC/HS/PRN 6. Ordered Dexcom buffing wheel presser 08/19/2023, had sensors in room already, as [...] Teresita Mcneal, PT - 08/20/2023 1032 EDT [facility] Rehabilitation Therapy Acute Therapies [facility] Physical Therapy Encounter Note Date of Service: [...] other consults recommended at this time Pager: [phone] TERESITA MCNEAL PT 08/20/2023 10:32 * Caremn Vernon NP - 08/19/2023 1543 EDT Endocrine/Diabetes Follow Up/Progress Note Admit Date: [...] Consistent Carb) Social Information: Single, Lives in [facility], has male partner. 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 Unsure of family history [...] Hawley OT - 08/19/2023 1043 EDT [facility] Therapy Acute Therapy [facility] Occupational Therapy Encounter Note Date of Service: [...] Interventions Included Procedures: Self-care/home management, Therapeutic activities [place] Cognitive Assessment (MoCA) The [place] Cognitive Assessment (MoCA)^ is a rapid screening [...] of <26 is considered indicative of MCI (Yamilexine, 2005). Memory Index Score (MIS) of <7 [...] date LB dressing: doffing compression stockings, donning cuff matcher socks, donning darco shoes Set up: from seated EOB Assist: [place] Compression stockings: figure 4 position EOB with supervision Donning Staff Reporter socks: same as above Donning Darco shoes: [...] to therapy session, After therapy session By: Ojte-yc-ungt communication, Other (secure chat) About: Nurse: plan [...] results for input(s): PHISTAT, PCOISTAT, POISTAT, POCTCO2, S1ANJFHX, POCFIO2 in the last 72 hours. No results for input(s): CK, MB, CKMBINDEX, TROPONINI in the last 72 hours. Assessment 52 y.o. female with a history of HTN and T2DM who presented as a transfer from [facility] on 06/12 with necrotizing fasciitis. S/p [...] course Eduardo Duval PA-C 08/19/2023 8:50 Pager #[phone] * Melinda Lassiter, PT - 08/19/2023 0849 EDT [facility] Rehabilitation Therapy Acute Therapy [facility] Physical Therapy Contact Note Date of Service: 08/19/2023 Ms Browning was working with OT when PT attempted to see her at 0825. She reports her right leg remains painful but she has been out of bed to the wheelchair each day. PT will follow up in the next couple of days Melinda Lassiter PT 08/19/2023 8:49 * Adali Jackson, DO - 08/17/2023 0958 EDT Endocrine/Diabetes Follow Up/Progress Note Admit Date: [...] Consistent Carb) Social Information: Single, Lives in [facility], has male partner. 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 Unsure of family history [...] thickness skin graft to buttock wound on 6/5. Mid dose metformin began yesterday, tolerating w/o [...] Hawley OT - 08/16/2023 1220 EDT [facility] Rehabilitation Therapy Acute Therapy [facility] Occupational Therapy Encounter Note Date of Service: [...] to therapy session, After therapy session By: Swea-mx-emxw communication, Other (secure chat) About: Nurse: plan [...] Consistent Carb) Social Information: Single, Lives in [facility], has male partner. 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 Unsure of family history [...] TBD Nabila [place] NP 08/16/2023 12:16 * LynetteTeodoromaciej, - 08/16/2023 1114 EDT Acute Care Surgery [...] T2DM who presented as a transfer from [facility] on 06/12 with necrotizing fasciitis. S/p [...] w/ Kerlix RT for airway clearance Q4H, DuoNebs Consistent [...] LOGAN OJEDA DO 08/16/2023 11:14 ACS; Pager: [phone] * Melinda Lassiter, PT - 08/15/2023 1501 EDT [facility] Therapy Acute Therapies [facility] Physical Therapy Encounter Note Date of Service: [...] recommended at this time Primary Therapist: Pager: [phone] Melinda Lassiter, PT 08/15/2023 15:01 * Isabell Nolasco MD [...] T2DM who presented as a transfer from [facility] on 06/12 with necrotizing fasciitis. S/p [...] course ISABELL NOLASCO MD 08/15/2023 12:31 Pager: [phone] * Nabila [place] NP - 08/15/2023 1107 EDT Endocrine/Diabetes Follow Up/Progress Note Admit Date: [...] Consistent Carb) Social Information: Single, Lives in [facility], has male partner. 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 Unsure of family history [...] Consistent Carb) Social Information: Single, Lives in [facility], has male partner. 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 Unsure of family history [...] Hawley OT - 08/14/2023 1142 EDT [facility] Rehabilitation Therapy Acute Therapy [facility] Occupational Therapy Encounter Note Date of Service: [...] to therapy session, After therapy session By: Nifw-jg-mozo communication, Other (secure chat) About: Nurse: results [...] GRUPO HAWLEY OT, 08/14/2023, 14:40 * Alix Blakely, KIESHA - 08/13/2023 0985 EDT Case Management progress note Chart reviewed: PT note 08/12 Given her level of progress and 17/09 home support, discussed potentialdc directly home when able. Await OT input [facility] Department of Case Management and Social Work Case Management Progress Note Patient Name Level of Care and Accommodation Code: Patient Class: Medically Ready: Y/N Della Browning Acute Long Term Level 1 Inpatient n Primary Dx: Decisional Capacity: Y/N Primary Support/ CareGiver: Advance Directive Necrotizing fasciitis (HCC-CMS) y N Advance Directives (For Healthcare) Healthcare [...] medically acute for continued IP admission at [facility] Admit Date: 06/13/2023 23:23 Procedure(s): ?? Nec fasc debridement x2 (OSH) ?? Serial debridement, repair rectal injury (06/14) ?? Additional debridement, washout (06/16) ?? Additional debridement, washout, partial closure (06/18) ?? Washout, wound vac change (06/25) ?? Wound vac change (07/09) ?? Split thickness skin graft (07/30) Plan Level of Care: Acute/ IP Admission Point of Origin: [facility] Appropriate for Transfer Return vs Alternative Facility: N/a (reviewed with team 07/07, 07/10, week of 07/14, week of 07/22, week of 08/04). Discharge plan/ Estimated date: TBD Insurance/ LTC Medicaid Status: Medicaid Support Network: [facility] germain Lezama ([phone]); Henrietta Randall ([phone]) (CM note 08/12) PT note 08/12 Given [...] following skin graft. (Patient's residence is in [facility] with partner [place]). (CM Note 07/25:) Remains medically acute for continued inpatient care at [facility]. Last wound vac change with Acell application [...] medically acute for ongoing wound management at [facility]. (CM Note 07/16:) Patient with Wound Vac change this morning (please refer to KATY Duval progress note). Replaced WV; using acellular matrix overlying wound bed with vendor following on site. May require another week of WV prior to further determination of treatment care plan. Per ongoing discussions with Primary team, patient is Not a candidate for transfer return to [facility] hospital due to acuity of wound care [...] Consistent Carb) Social Information: Single, Lives in [facility], has male partner. 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 Unsure of family history [...] diabetes education and ordered Dexcom G7 through [facility] pharmacy, if covered, can start inpatient so CDE can help with getting started, spoke with nursing to encourage pt to administer her insulin injections 7. Consider introduction of non-insulin agents (GLP1/SGLT2) as adjunct therapy to insulin, once closer to discharge, perhaps CGM 8. Will continue to follow with you. Discharge Plan: TBD Carmen Vernon NP 08/13/2023 11:17 * Teresita Mcneal, PT - 08/13/2023 0958 EDT [facility] Rehabilitation Therapy Acute Therapies [facility] Physical Therapy Encounter Note Date of Service: [...] Communication: RN pre/post PT. Secure chat with TABLET COATER Aura re; pt status . Secure chat with CM re; dc Assessment/Plan Assessment Pt is doing [...] necessary equipment Other recommendations: OT f/u Pager: [phone] TERESITA MCNEAL, PT 08/13/2023 9:58 * Carmen Vernon NP - 08/12/2023 1326 EDT Endocrine/Diabetes Follow Up/Progress Note Admit Date: [...] Consistent Carb) Social Information: Single, Lives in [facility], has male partner. 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 Unsure of family history [...] Data Review: Labs: Recent Labs 08/09/23 1800 08/09/23202608/10/23 0807 08/10/23 1127 08/10/23 1822 08/10/23 2140 08/11/23 0829 08/11/23 1134 08/11/23 1715 08/11/23202308/12/23 0651 08/12/23 1119 GLUCOSEPOC 115* 135* 152* [...] T2DM who presented as a transfer from [facility] on 06/12 with necrotizing fasciitis. S/p [...] dressing replaced RT for airway clearance Q4H, DuoNebs Consistent [...] course ISABELL NOLASCO MD 08/12/2023 12:00 Pager: [phone] Associated attestation - Efraín Rueda MD - 08/12/2023 1339 EDT Attending attestation statement: I saw and examined the patient and agree with the findings and plans as documented. Doing well today, continue PT. Awaiting rehab. Take down donor site dressings today, possibly redress with either xeroform or tegaderm absorb pending wound appearnce. Darien Rueda MD Acute Care Surgery Pager #[phone] * Ruby Lassiterry, PT - 08/09/2023 1612 EDT [facility] Therapy Acute [facility] Physical Therapy Encounter Note Date of Service: [...] recommended at this time Primary Therapist: Pager: [phone] Melinda Lassiter PT 08/09/2023 16:12 * Nedra Armendariz RN - 08/09/2023 5737 EDT [facility] Department of Case Management and Social Work [...] N 57 08/13 N Primary Care Provider: MATHEW/ANDRES/SNF referred: Y/N Bed Offers: Y/N Escalated to [...] medically acute for continued IP admission at [facility] Nec fasc debridement x2 (OSH) Serial debridement, repair rectal injury (06/14) Additional debridement, washout (06/16) Additional debridement, washout, partial closure (06/18) Wound vac application (06/21) Wound debridement with WV replacement in OR (07/09) STSG (07/30) Plan Level of Care: Acute/ IP Admission Point of Origin: [facility] Appropriate for Transfer Return vs Alternative Facility: N/a (reviewed with team 07/07, 07/10, week of 07/14, week of 07/22, week of 08/04). Discharge plan/ Estimated date: TBD Insurance/ LTC Medicaid Status: Medicaid Support Network: anya Lezama ([phone]); Annettekade Ayden ([phone]) (CM Note 08/08:) Chart reviewed and updates [...] following skin graft. (Patient's residence is in [facility] with partner [place]). (CM Note 07/25:) Remains medically acute for continued inpatient care at [facility]. Last wound vac change with Acell application [...] medically acute for ongoing wound management at [facility]. (CM Note 07/16:) Patient with Wound Vac change this morning (please refer to KATY Duval progress note). Replaced WV; using acellular matrix overlying wound bed with vendor following on site. May require another week of WV prior to further determination of treatment care plan. Per ongoing discussions with Primary team, patient is Not a candidate for transfer return to [facility] due to acuity of wound care [...] Armendariz RN CM CMSW Department (Available via [employer]) * Nabila English NP - 08/09/2023 1219 [...] Says she is waiting for placement in [place]. Diabetes History: Onset: ~ 10-15 yr ago Control: A1C 8.2 on 06/13 Complications: Peripheral Neuropathy, infected wound Home Regimen: On no meds at home Says previously she had taken insulin Tries to watch diet SBGM and Self Care: Stopped taking FS Current Diet: Regular (added Consistent Carb) Social Information: Single, Lives in [facility], has male partner. 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 Unsure of family history [...] is now on list for discharge to [facility]. 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 Unsure if seen by RN, CDE will [...] open groin wound unless she will have longterm vuong catheter w discharge 8. Will continue [...] T2DM who presented as a transfer from [facility] on 06/12 with necrotizing fasciitis. S/p [...] ROSA ISELA CAMPBELL MD 08/09/2023 10:38 Pager: [phone] Attestation: I performed or was present during [...] Paulette Hoover MD 08/09/2023 15:24 * Melinda Lassiter, PT - 08/08/2023 1531 EDT [facility] Rehabilitation Therapy Acute Therapies [facility] Physical Therapy Encounter Note Date of Service: [...] recommended at this time Primary Therapist: Pager: [phone] Melinda Lassiter, PT 08/08/2023 15:31 * Ayden Ackerman RD - 08/08/2023 1133 EDT Images from the original note were not included. Nutrition Assessment Note: Reassessment BACKGROUND DATA Della Browning is a 53 y.o. female admitted for Necrotizing fasciitis ([facility]) S/p debridement x2 at OSH and s/p [...] Not assessed (06/14/23 1520) Muscle Mass Assessment Mandaen Region: Well-nourished (06/14/23 1520) Clavicle Region: Well-nourished [...] methocarbamoL (ROBAXIN) tablet 1,000 mg oral QID heinrhse-nzn-vnot fum-folic ac 7.5 mg iron-400 mcg tablet [...] RD, CD, CNSC (Call PAS or use [employer] (OpDemand) to page RD covering this unit) * [...] Consistent Carb) Social Information: Single, Lives in [facility], has male partner. 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 Unsure of family history [...] open groin wound unless she will have longterm vuong catheter w discharge 8. Will continue to follow with you. Discharge Plan: TBD Nabila English NP 08/08/2023 10:33 * Elsa Beckford, OT - 08/08/2023 1023 EDT [facility] Rehabilitation Therapy Acute Therapies [facility] - Occupational Therapy Encounter Note Date [...] Timed code treatment minutes:n/a Date: 07/31/2023 Location: [facility] OR Name: Della Browning, : 1970, Diagnosis Pre-Op Diagnosis Codes: * Necrotizing soft tissue infection [M79.89] Post-op Diagnosis * Necrotizing soft tissue infection [M79.89] Procedures * Split thickness skin graft to perineum Surgeons * Moo Monique MD - Primary * Isabell Nolasco MD - Resident - Assisting Interventions included: Self-Care/Home Management: LB dressing: -Pt donned b/l cuff matcher socks with mod I using figure 4 [...] A x 1 to stand from leander stedy. Marching place form leander stedy with Min contact A -Stand>sit: Min contact [...] be determined by next care provider Pager: [phone] Elsa Beckford OT, 08/08/2023, 10:23 * Rosa [...] Intake/Output Summary (Last 24 hours) at 08/08/2023 06 Last data filed at 08/08/2023 0600 Gross [...] T2DM who presented as a transfer from [facility] on 06/12 with necrotizing fasciitis. S/p [...] ROSA ISELA CAMPBELL MD 08/08/2023 6:47 Pager: [phone] * Nabila English NP - 08/07/2023 1420 [...] Consistent Carb) Social Information: Single, Lives in [facility], has male partner. 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 Unsure of family history [...] as adjunct therapy to insulin, [facility], perhaps CGM. Would avoid SGLT-2 with open groin wound unless she will have longterm vuong catheter w discharge 8. Will continue to follow with you. Discharge Plan: TBD Nabila English NP 08/07/2023 14:20 * Nedra Armendariz RN - 08/07/2023 7615 EDT [facility] Department of Case Management and Social Work Case Management Progress Note Patient Name Level of Care and Accommodation Code: Patient Class: Medically Ready: Y/N Della Browning Acute General Inpatient N Primary Dx: Decisional Capacity: Y/N Primary Support/ CareGiver: Advance Directive Necrotizing fasciitis ([facility]) Y N Advance Directives (For Healthcare) Healthcare [...] medically acute for continued IP admission at [facility] Nec fasc debridement x2 (OSH) Serial debridement, repair rectal injury (06/14) Additional debridement, washout (06/16) Additional debridement, washout, partial closure (06/18) Wound vac application (06/21) Wound debridement with WV replacement in OR (07/09) STSG (07/30) Plan Level of Care: Acute/ IP Admission Point of Origin: [facility] Appropriate for Transfer Return vs Alternative Facility: N/a (reviewed with team 07/07, 07/10, week of 07/14, week of 07/22, week of 08/04). Discharge plan/ Estimated date: TBD Insurance/ LTC Medicaid Status: Medicaid Support Network: sig other [place] ([phone]); Henrietta Randall ([phone]) (CM Note 08/06:) One week out today [...] following skin graft. (Patient's residence is in [facility] with partner [place]). (CM Note 07/25:) Remains medically acute for continued inpatient care at [facility]. Last wound vac change with Acell application [...] medically acute for ongoing wound management at [facility]. (CM Note 07/16:) Patient with Wound Vac change this morning (please refer to KATY Duval progress note). Replaced WV; using acellular matrix overlying wound bed with vendor following on site. May require another week of WV prior to further determination of treatment care plan. Per ongoing discussions with Primary team, patient is Not a candidate for transfer return to [facility] due to acuity of wound care [...] adequate supports. E-Signature Nedra Armendariz RN CM [facility] Department (Available via [employer]) * Rosa Isela Campbell MD - 08/07/2023 [...] Intake/Output Summary (Last 24 hours) at 08/07/2023 08 Last data filed at 08/07/2023 0628 Gross [...] T2DM who presented as a transfer from [facility] on 06/12 with necrotizing fasciitis. S/p [...] ROSA ISELA CAMPBELL MD 08/07/2023 8:22 Pager: [phone] * Carmen Vernon NP - 08/06/2023 0053 EDT Endocrine/Diabetes Follow Up/Progress Note Admit Date: [...] Consistent Carb) Social Information: Single, Lives in [facility], has male partner. 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 Unsure of family history [...] Teresita Mcneal, PT - 08/06/2023 1238 EDT [facility] Rehabilitation Therapy Acute Therapies [facility] Physical Therapy Progress Note Date of Service: [...] provided by physical therapist and/or physical therapist inside sales assistant when medically appropriate Frequency: daily for [...] other consults recommended at this time Pager: [phone] TERESITA MCNEAL PT 08/06/2023 12:38 * Isabell Nolasco MD - 08/06/2023 1150 EDT Acute Care Surgery Progress Note Service Date: 08/06/2023 Admit Date: 06/13/2023 23:23 Procedure(s): Nec fasc debridement x2 (OSH) Serial debridement, repair rectal injury (4/20) Additional debridement, washout (06/16) Additional debridement, washout, [...] T2DM who presented as a transfer from [facility] on 06/12 with necrotizing fasciitis. S/p [...] course ISABELL NOLASCO MD 08/06/2023 11:50 Pager: [phone] Associated attestation - Ramón Peraza MD - [...] openings. Continue current wound care * Nedra Armendariz, RN - 08/05/2023 2247 EDT [facility] Department of Case Management and Social Work Case Management Progress Note Patient Name Level of Care and Accommodation Code: Patient Class: Medically Ready: Y/N Della Browning Acute General Inpatient N Primary Dx: Decisional Capacity: Y/N Primary Support/ CareGiver: Advance Directive Necrotizing fasciitis ([facility]) Y N Advance Directives (For [...] medically acute for continued IP admission at [facility] Nec fasc debridement x2 (OSH) Serial debridement, repair rectal injury (06/14) Additional debridement, washout (06/16) Additional debridement, washout, partial closure (06/18) Wound vac application (06/21) Wound debridement with WV replacement in OR (07/09) STSG (07/30) Plan Level of Care: Acute/ IP Admission Point of Origin: [facility] Appropriate for Transfer Return vs Alternative Facility: N/a (reviewed with team 07/07, 07/10, week of 07/14, week of 07/22, week of 08/04). Discharge plan/ Estimated date: TBD Insurance/ LTC Medicaid Status: Medicaid Support Network: sig other [place] ([phone]); Henrietta Randall ([phone]) (CM Note 08/04:) Provided check-in with patient [...] following skin graft. (Patient's residence is in [facility] with partner [place]). (CM Note 07/25:) Remains medically acute for continued inpatient care at [facility]. Last wound vac change with Acell application [...] medically acute for ongoing wound management at [facility]. (CM Note 07/16:) Patient with Wound Vac [...] Armendariz RN CM CMSW Department (Available via [employer]) * Isabell Nolasco MD - 08/05/2023 1423 [...] T2DM who presented as a transfer from [facility] on 06/12 with necrotizing fasciitis. S/p [...] course ISABELL NOLASCO MD 08/05/2023 14:23 Pager: [phone] * Carmen Vernon NP - 08/05/2023 5999 EDT Endocrine/Diabetes Follow Up/Progress Note Admit Date: [...] Consistent Carb) Social Information: Single, Lives in [facility], has male partner. 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 Unsure of family history [...] Carmen Vernon NP 08/05/2023 12:40 * Elsa Beckford, OT - 08/05/2023 1051 EDT [facility] Rehabilitation Therapy Acute Therapy [facility] Occupational Therapy Contact Note Date of Service: [...] T2DM who presented as a transfer from [facility] on 06/12 with necrotizing fasciitis. S/p [...] course ISABELL NOLASCO MD 08/04/2023 12:06 Pager: [phone] Attestation: I performed or was present during [...] T2DM who presented as a transfer from [facility] on 06/12 with necrotizing fasciitis. S/p [...] course LOGAN OJEDA DO 08/03/2023 12:16 Pager: [phone] Attestation: I performed or was present during the cooper or critical portions of the visit and participated in the management of the patient on 08/03/2023. I agree with the findings and plan of care documented in the resident's/fellow's note. Paulette Hoover MD 08/03/2023 14:52 * Moo Monique MD - 2023 6619 EDT Acute Care Surgery Progress Note Service [...] Intake/Output Summary (Last 24 hours) at 2023 1519 Last data filed at 2023 1345 Gross per 24 hour Intake 3030 ml Output 4625 ml Net -1595 ml I&O By Type - 3 Shifts Including Current In: 1830 [P.O.:1800; Other:30] Out: 3775 [Urine:1775; Drains:2000] Physical Exam: Gen: alert, awake, cooperative Resp: [...] T2DM who presented as a transfer from [facility] on 06/12 with necrotizing fasciitis. S/p [...] course LOGAN OJEDA DO 2023 15:19 Pager: [phone] Attestation: I performed or was present during the cooper or critical portions of the visit and participated in the management of the patient on 2023. I agree with the findings and plan of care documented in the resident's/fellow's note. Moo Monique MD 2023 17:11 * Melinda Lassiter, PT - 2023 1421 EDT [facility] Rehabilitation Therapy Acute Therapy [facility] Physical Therapy Contact Note Date of Service: [...] strength and mobility perspective to try Leander De Guzman for bed to chair transfer. PT will follow up next week. Encourage pt to sit edge of bed for meals with feet supported on foot stool Melinda Lassiter PT 2023 14:21 * Nabila English, MYRNA - 2023 1357 EDT Endocrine/Diabetes Follow Up/Progress [...] NPO 07/30 Social Information: Single, Lives in [facility], has male partner. 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 Unsure of family history [...] 13:58 * Isabell Nolasco MD - 08/01/2023 1648 EDT Acute Care Surgery Progress Note Service [...] T2DM who presented as a transfer from [facility] on 06/12 with necrotizing fasciitis. S/p [...] course ISABELL NOLASCO MD 08/01/2023 16:48 Pager: [phone] * Ashleigh Stout, RD - 08/01/2023 7540 EDT Images from the original note were not included. Nutrition Assessment Note: Reassessment Admission date: 06/13/2023 23:23 BACKGROUND DATA Della Browning is a 52 y.o. female admitted for Necrotizing fasciitis ([facility]) S/p debridement x2 at OSH and s/p [...] Not assessed (06/14/23 1520) Muscle Mass Assessment Mandaen Region: Well-nourished (06/14/23 1520) Clavicle Region: Well-nourished [...] 152) Physical Findings: Net IO Since Admission: -68,[id number] [...] methocarbamoL (ROBAXIN) tablet 1,000 mg oral QID xsiwnwsh-uzq-bijd fum-folic ac 7.5 mg iron-400 mcg tablet [...] RD, CD, CNSC (Call PAS or use [employer] (OpDem[employer]) to page RD covering this unit) * Nabila English, TABLET COATER - 08/01/2023 1048 EDT Endocrine/Diabetes Follow Up/Progress [...] NPO 07/30 Social Information: Single, Lives in [facility], has male partner. 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 Unsure of family history [...] SKINNER MD 07/31/23 22:03 ACS Service Pager #[phone] * Quique Berger RN - 07/31/2023 2019 EDT FOUR EYES SKIN ASSESSMENT Four Eyes [...] Add LDA for any identified wounds Add [place] image for any suspected PI or non surgical wounds Order wound consult if suspected PI identified If Jerson is < or = to 16, initiate Pressure Injury Prevention Bundle ([id number]). 07/31/2023 20:19 * Elsa Beckford OT - 07/31/2023 6590 EDT [facility] Rehabilitation Therapy Acute Therapy [facility] Occupational Therapy Contact Note Date of Service: [...] NPO 07/30 Social Information: Single, Lives in [facility], has male partner. 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 Unsure of family history [...] 0711 07/29/23 1120 07/29/23 1813 07/29/23201307/30/23 0822 07/30/23 1240 07/30/23 1701 07/30/23 2120 [...] Lassiter, PT - 07/31/2023 0810 EDT [facility] Rehabilitation Therapy [facility] Physical Therapy Contact Note Date of Service: 07/31/2023 PT has been following pt; Per chart, she is scheduled for STSG surgery today. PT will follow up post op. Anticipate she will need subacute rehab when medically ready for discharge Melinda Lassiter, PT 07/31/2023 8:10 * Moo Monique MD - 07/31/2023 0651 EDT Acute Care [...] T2DM who presented as a transfer from [facility] on 06/12 with necrotizing fasciitis. S/p [...] course DANA MINER MD 07/31/2023 6:51 Pager: [phone] Attestation: I performed or was present during the cooper or critical portions of the visit and participated in the management of the patient on 07/31/2023. I agree with the findings and plan of care documented in the resident's/fellow's note.Plan for OR today for STSG when OR available. Moo Monique MD 07/31/2023 22:02 * Moo Monique MD - 07/30/2023 1228 EDT Acute Care Surgery Progress Note Service [...] T2DM who presented as a transfer from [facility] on 06/12 with necrotizing fasciitis. S/p [...] care documented in the resident's/fellow's note. Moo oMnique MD 07/30/2023 16:23 * Carmen Vernon NP [...] Consistent Carb) Social Information: Single, Lives in [facility], has male partner. 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 Unsure of family history [...] 11:03 * Nedra Armendariz RN - 07/30/2023 1055 EDT [facility] Department of Case Management and Social Work Case Management Progress Note Patient Name Level of Care and Accommodation Code: Patient Class: Medically Ready: Y/N Della Browning Acute General Inpatient N Primary Dx: Decisional Capacity: Y/N Primary Support/ CareGiver: Advance Directive Necrotizing fasciitis ([facility]) Y N Advance Directives (For Healthcare) Healthcare Directive: No, patient does not have advance directive for healthcare treatment Information Provided on Healthcare Directives: Yes Information on Healthcare Directives Requested: No Disposition Information Appropriate to transfer back: Y/N Length of Stay (in days): Estimated Date of D/C: LTC Medicaid Status: N 47 6/14 N Primary Care Provider: AR/ANDRES/SNF referred: Y/N [...] medically acute for continued IP admission at [facility] Nec fasc debridement x2 (OSH) Serial debridement, repair rectal injury (06/14) Additional debridement, washout (06/16) Additional debridement, washout, partial closure (06/18) Wound vac application (06/21) Wound debridement with WV replacement in OR (07/09) Plan Level of Care: Acute/ IP Admission Point of Origin: [facility] Appropriate for Transfer Return vs Alternative Facility: N/a (reviewed with team 07/07, 07/10, week of 07/14, week of 07/22). Discharge plan/ Estimated date: TBD Insurance/ LTC Medicaid Status: Medicaid Support Network: anya Lezama ([phone]); Henrietta Randall ([phone]) (CM Note 07/29:) Chart reviewed and current [...] following skin graft. (Patient's residence is in [facility] with partner [place]). (CM Note 07/25:) Remains medically acute for continued inpatient care at [facility]. Last wound vac change with Acell application [...] medically acute for ongoing wound management at [facility]. (CM Note 07/16:) Patient with Wound Vac change this morning (please refer to KATY Duval progress note). Replaced WV; using acellular matrix overlying wound bed with vendor following on site. May require another week of WV prior to further determination of treatment care plan. Per ongoing discussions with Primary team, patient is Not a candidate for transfer return to [facility] due to acuity of wound care [...] adequate supports. E-Signature Nedra Armendariz RN CM [facility] Department (Available via [employer]) * Carmen Vernon NP - 07/29/2023 1121 [...] Consistent Carb) Social Information: Single, Lives in [facility], has male partner. 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 Unsure of family history [...] T2DM who presented as a transfer from [facility] on 06/12 with necrotizing fasciitis. S/p [...] pending clinical course LOGAN OJEDA DO, PGY1 07/29/2023 9:11 ACS Pager #[phone] Attestation: I performed or was present during [...] Consistent Carb) Social Information: Single, Lives in [facility], has male partner. 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 Unsure of family history [...] T2DM who presented as a transfer from [facility] on 06/12 with necrotizing fasciitis. S/p [...] KENNY MD, PGY1 07/28/2023 7:04 ACS Pager #[phone] Associated attestation - Hira Franklin MD - [...] (07/09) Chief Complaint: NSTI 24 Hour Events: -NAKirbyON Subjective Wishes for some of her pain [...] T2DM who presented as a transfer from [facility] on 06/12 with necrotizing fasciitis. S/p [...] KENNY MD, PGY1 07/27/2023 7:37 ACS Pager #[phone] Attestation: I performed or was present during the cooper or critical portions of the visit and participated in the management of the patient on 07/27/2023. I agree with the findings and plan of care documented in the resident's/fellow's note. Moo Monique MD 07/27/2023 22:36 * Nedra Armendariz, KIESHA - 07/26/2023 1223 EDT [facility] Department of Case Management and Social Work [...] (wk of 07/21) N Primary Care Provider: MATHEW/ANDRES/SNF referred: Y/N Bed Offers: Y/N Escalated to [...] medically acute for continued IP admission at [facility] Nec fasc debridement x2 (OSH) Serial debridement, repair rectal injury (06/14) Additional debridement, washout (06/16) Additional debridement, washout, partial closure (06/18) Wound vac application (06/21) Wound debridement with WV replacement in OR (07/09) Plan Level of Care: Acute/ IP Admission Point of Origin: [facility] Appropriate for Transfer Return vs Alternative Facility: N/a (reviewed with team 07/07, 07/10, week of 07/14, week of 07/22). Discharge plan/ Estimated date: TBD Insurance/ LTC Medicaid Status: Medicaid Support Network: anya Lezama ([phone]); Henrietta Randall ([phone]) (CM Note 07/25:) Remains medically acute for continued inpatient care at [facility]. Last wound vac change with Acell application [...] medically acute for ongoing wound management at [facility]. (CM Note 07/16:) Patient with Wound Vac change this morning (please refer to KATY Duval progress note). Replaced WV; using acellular matrix overlying wound bed with vendor following on site. May require another week of WV prior to further determination of treatment care plan. Per ongoing discussions with Primary team, patient is Not a candidate for transfer return to [facility] due to acuity of wound care [...] adequate supports. E-Signature Nedra Armendariz RN CM [facility] Department (Available via [employer]) * Brittani Rinaldi, - 07/26/2023 1203 EDT [...] Consistent Carb) Social Information: Single, Lives in [facility], has male partner. 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 Unsure of family history [...] Beckford OT - 07/26/2023 1032 EDT [facility] Rehabilitation Therapy Acute Therapies [facility] Occupational Therapy Initial Evaluation Note Date of [...] admitted on 06/13/2023 secondary to Necrotizing fasciitis ([facility]) [M72.6] The patient lives at [address] [place] [address] History of Present Illness/Injury: Summary assessment on 06/28/[address] Chato Beckwith 52 y.o. female with a history of HTN and T2DM who presented as a transfer from [facility] on 06/12 with necrotizing fasciitis. 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 Work/Leisure: Disabled Medical/Surgical History: CURRENT: The patient has Necrotizing fasciitis ([facility]); Necrotizing soft tissue infection; Cardiopulmonary arrest with successful resuscitation ([facility]); Type 2 diabetes mellitus; Complete heart block ([facility]); Palliative care by specialist; Insufficiency, respiratory, acute; Electrolyte and fluid disorder; Acute respiratory failure with hypoxia ([facility]); Respiratory insufficiency; Type 2 diabetes with complication ([facility]); and Type 2 diabetes mellitus with peripheral neuropathy ([facility]) on their problem list. PAST: The patient [...] service recommendations. GOALS: Short Term Goals: N/A Molder Pipe Covering Goals: 2-4 weeks Pt will be modified [...] be determined by next care provider Pager: [phone] Elsa Beckford OT, 07/26/2023, 10:32 * Leesa [...] T2DM who presented as a transfer from [facility] on 06/12 with necrotizing fasciitis. S/p [...] BUENROSTRO MD, PGY1 07/26/2023 9:04 ACS Pager #[phone] Associated attestation - Kyle Mars MD - 07/28/2023 1057 EDT Attending Note I examined/discussed this pt with the residents on 07/26/23 and agree with the above note Wound vacc and a cell placed yesterday , wound looking good, plan change next Sat/ Kyle Mars MD 1290 * Tiff Aviles MD - 07/25/2023 1633 [...] T2DM who presented as a transfer from [facility] on 06/12 with necrotizing fasciitis. S/p [...] AVILES MD, PGY1 07/25/2023 16:33 ACS Pager #[phone] Associated attestation - Kyle Mars MD - 07/25/2023 4304 EDT Attending note I examined/discussed this pt with the residents on 07/25/23 and agree with the above note Wound vacc and acell admin today, wound looks improved Kyle Mars MD 5672 * Good Gloria, RN - 07/25/2023 3879 EDT GAVIN Note Name:Della Browning SHIFT UPDATE [...] Lassiter, PT - 07/25/2023 1419 EDT [facility] Rehabilitation [facility] Therapy [facility] Physical Therapy Contact Note Date of Service: 07/25/2023 PT attempted x 2 to see Ms Browning today; she was sleeping soundly both times. Per chart she had wound vac changed this afternoon, so PT did not attempt to wake her. Anticipate she is ready to attempt leander talib transfer bed to chair with 2 assist. PT will follow up early next week. Melinda Lassiter, PT 07/25/2023 14:19 * Elsa Beckford OT - 07/25/2023 1401 EDT [facility] Rehabilitation [facility] Occupational Therapy Contact Note Date [...] Consistent Carb) Social Information: Single, Lives in [facility], has male partner. 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 Unsure of family history [...] Nabila English NP 07/25/2023 11:00 * Ayden Ackerman, LORENA - 07/24/2023 1304 EDT Images from the original note were not included. Nutrition Assessment Note: Reassessment BACKGROUND DATA Della Browning is a 52 y.o. female admitted for Necrotizing fasciitis ([facility]) S/p debridement x2 at OSH and s/p [...] Not assessed (06/14/23 1520) Muscle Mass Assessment Mandaen Region: Well-nourished (06/14/23 1520) Clavicle Region: Well-nourished [...] 1520) Physical Findings: Net IO Since Admission: -53,705.28 [...] methocarbamoL (ROBAXIN) tablet 1,000 mg oral QID weitzoxn-zfw-hnrc fum-folic ac 7.5 mg iron-400 mcg tablet [...] RD, CD, CNSC (Call PAS or use [employer] Web (OpDemand) to page RD covering this unit) * [...] 10-15 yr ago Control: A1C 8.2 on 4/19 Complications: Peripheral Neuropathy, infected wound Home Regimen: On no meds at home Says previously she had taken insulin Tries to watch diet SBGM and Self Care: Stopped taking FS Current Diet: Regular (added Consistent Carb) Social Information: Single, Lives in [facility], has male partner. 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 Unsure of family history [...] 1701 07/23/23 2035 07/24/23 0753 07/24/23 1137 GLUCOSEPOC 102* 125* 147* [...] T2DM who presented as a transfer from [facility] on 06/12 with necrotizing fasciitis. S/p [...] AVILES MD, PGY1 07/24/2023 11:01 ACS Pager #[phone] Associated attestation - Kyle Mars MD - 07/24/2023 1335 EDT Attending Note I examined/discussed this pt with the residents on 07/24/23 and agree with the above note Wound vacc change when acell arrives Kyle Mars MD 5633 * Nedra Armendariz, RN - 07/23/2023 1647 EDT [facility] Department of Case Management and Social Work [...] medically acute for continued IP admission at [facility] Nec fasc debridement x2 (OSH) Serial debridement, repair rectal injury (06/14) Additional debridement, washout (06/16) Additional debridement, washout, partial closure (06/18) Wound vac application (06/21) Wound debridement with WV replacement in OR (07/09) Plan Level of Care: Acute/ IP Admission Point of Origin: [facility] Appropriate for Transfer Return vs Alternative Facility: N/a (reviewed with team 07/07, 07/10, week of 07/14, week of 07/22). Discharge plan/ Estimated date: TBD Insurance/ LTC Medicaid Status: Medicaid Support Network: anya Lezama ([phone]); eHnrietta Randall ([phone]) (CM Note 07/22:) Chart reviewed and updates received from Primary team in morning rounds. Patient with necrotizing fasciitis with Wound vac application. Last change 07/16 with next change planned for tomorrow 07/23. Receiving Acell application to wound bed. Remains medically acute for ongoing wound management at [facility]. (CM Note 07/16:) Patient with Wound Vac [...] Armendariz RN CM CMSW Department (Available via [employer]) * Melinda Lassiter, PT - 07/23/2023 1207 EDT [facility] Therapy Acute Therapies [facility] Physical Therapy Encounter Note Date of Service: [...] Discussed progress with mobility; trial of leander de guzman for sit to stand later this week [...] on stool for eating meals. Assessment/Plan Assessment Nallely Wilcox demonstrates improved activity tolerance and sitting [...] Other recommendations: Occupational Therapy Primary Therapist: Pager: [phone] Melinda Lassiter PT 07/23/2023 12:07 * Carmen Vernon NP - 07/23/2023 1100 EDT Endocrine/Diabetes Follow Up/Progress [...] Consistent Carb) Social Information: Single, Lives in [facility], has male partner. 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 Unsure of family history [...] T2DM who presented as a transfer from [facility] on 06/12 with necrotizing fasciitis. S/p [...] AVILES MD, PGY1 07/23/2023 10:13 ACS Pager #[phone] Associated attestation - Kyle Mars MD - 07/23/2023 7360 EDT Attending Note I examined/discussed this pt with the residents on 07/23/23 and agree with the above note Wound vacc in place, change tomorrow with more acell application Kyle Mars MD 9411 * Brittani Rinaldi DO - 07/22/2023 1500 EDT Endocrine/Diabetes Follow Up/Progress Note Admit Date: [...] Consistent Carb) Social Information: Single, Lives in [facility], has male partner. 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 Unsure of family history [...] T2DM who presented as a transfer from [facility] on 06/12 with necrotizing fasciitis. S/p [...] VERAS MD, PGY1 07/22/2023 15:04 ACS Pager #[phone] * Carmen Vernon, TABLET COATER - 07/21/2023 1332 EDT Endocrine/Diabetes Follow Up/Progress [...] Consistent Carb) Social Information: Single, Lives in [facility], has male partner. 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 Unsure of family history [...] T2DM who presented as a transfer from [facility] on 06/12 with necrotizing fasciitis. S/p [...] pain control RT for airway clearance Q4H, Greta Consistent carbohydrate diet, appreciate Endocrine recs No [...] AVILES MD, PGY1 07/21/2023 7:43 ACS Pager #[phone] Associated attestation - Kyle Mars MD - 07/21/20232027 EDT Attending note I examined/discussed this pt with the residents on 07/21/23 and agree with the above note Wound vacc in place, plan for change later this week Kyle Mars MD 5633 * Joan Menon MD - 07/20/2023 0958 EDT Acute Care Surgery Progress Note Service [...] Intake/Output Summary (Last 24 hours) at 07/20/2023 0922 Last data filed at 07/20/2023 0808 Gross [...] T2DM who presented as a transfer from [facility] on 06/12 with necrotizing fasciitis. S/p [...] VERAS MD, PGY1 07/20/2023 9:58 ACS Pager #[phone] Attestation statement: I performed or was present during the cooper or critical portions of the visit and participated in the management of the patient. I agree with the findings and plan of care documented in the resident's/fellow's note. Joan Menon MD Acute Care Surgery Pager #[phone] 07/20/23 * Nabila English NP - 07/19/2023 [...] Consistent Carb) Social Information: Single, Lives in [facility], has male partner. 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 Unsure of family history [...] 07/17/23 0759 07/17/23 1147 07/17/23 1749 07/17/23 20207/18/23 0717 07/18/23 0836 07/18/23 1142 07/18/23 1820 [...] 13:04 * Melinda Lassiter, PT - 07/19/2023 5247 EDT [facility] Therapy Acute Therapies [facility] Physical Therapy Encounter Note Date of Service: [...] with mechanical lift devices. Assessment/Plan Assessment Ms Nallely demonstrates improved sitting balance and bed mobility. [...] recommended at this time Primary Therapist: Pager: [phone] Melinda Lassiter PT 07/19/2023 12:27 * Zahira Veras MD [...] Pulse From Oximetry: [74 BPM-84 BPM] Resp: [-] BP: (115-150)/(54-75) SpO2: [99 %-100 %] I/O: [...] T2DM who presented as a transfer from [facility] on 06/12 with necrotizing fasciitis. S/p [...] VERAS MD, PGY1 07/19/2023 11:29 ACS Pager #[phone] Associated attestation - Ramón Peraza MD - 07/22/2023 5516 EDT I saw and examined this patient with the residents and agree with the above note as it relates to the observations that were made and the treatment plan that was proposed. My specific comments follow: Satisfactory wound progress with VAC. Continue current care * Zahira Veras MD - 07/18/2023 1434 EDT Acute Care Surgery Progress Note Service [...] - 3 Shifts Including Current In: 2160 [P.O.:2160] Out: 2500 [Urine:2024; Drains:475] Physical Exam: Gen: [...] T2DM who presented as a transfer from [facility] on 06/12 with necrotizing fasciitis. S/p debridement x2 at OSH and s/p debridement at [facility] on 4/20.Post-operative bradycardic arrest x2 early in hospital course, [...] VERAS MD, PGY1 07/18/2023 13:57 ACS Pager #[phone] Associated attestation - Ramón Peraza MD - [...] Consistent Carb) Social Information: Single, Lives in [facility], has male partner. 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 Unsure of family history [...] place Data Review: Labs: Recent Labs 07/15/23 20307/16/23 0743 07/16/23 1135 07/16/23 1652 07/16/23 2131 07/17/23 0759 07/17/23 1147 07/17/23 1749 07/17/23202307/18/23 0717 07/18/23 0836 07/18/23 1142 GLUCOSEPOC 194* [...] Consistent Carb) Social Information: Single, Lives in [facility], has male partner. 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 Unsure of family history [...] Armendariz RN - 07/17/2023 1234 EDT [facility] Department of Case Management and Social Work Case Management Progress Note Patient Name Level of Care and Accommodation Code: Patient Class: Medically Ready: Y/N Della Browning Acute General Inpatient N Primary Dx: Decisional Capacity: Y/N Primary Support/ CareGiver: Advance Directive Necrotizing fasciitis ([facility]) Y N Advance Directives (For [...] (wk of 07/21) N Primary Care Provider: MATHEW/ANDRES/SNF referred: Y/N Bed Offers: Y/N Escalated to [...] medically acute for continued IP admission at [facility] Nec fasc debridement x2 (OSH) Serial debridement, repair rectal injury (06/14) Additional debridement, washout (06/16) Additional debridement, washout, partial closure (06/18) Wound vac application (06/21) Wound debridement with WV replacement in OR (07/09) Plan Level of Care: Acute/ IP Admission Point of Origin: [facility] Appropriate for Transfer Return vs Alternative Facility: N/a (reviewed with team 07/07, 07/10, week of 07/14) Discharge plan/ Estimated date: TBD Insurance/ LTC Medicaid Status: Medicaid Support Network: anya Lezama ([phone]); Henrietta Randall ([phone]) (CM Note 07/16:) Patient with Wound Vac [...] Armendariz RN CM CMSW Department (Available via [employer]) * Melinda Lassiter, PT - 07/17/2023 1151 EDT [facility] Therapy Acute Therapy [facility] Physical Therapy Contact Note Date of Service: 07/17/2023 PT met with Ms Browning at 11:30. She reports having wound dressing change this morning and requests PT return later this week as she is in too much pain to mobilize at this time. PT will follow up in the next 1-2 days Melinda Lassiter, PT 07/17/2023 11:51 * Zahira Veras MD [...] T2DM who presented as a transfer from [facility] on 06/12 with necrotizing fasciitis. S/p [...] change today Plan Principal Problem: Necrotizing fasciitis (HCC-CMS) Wound [...] VERAS MD, PGY1 07/17/2023 11:17 ACS Pager #[phone] Associated attestation - Ramón Peraza MD - [...] Consistent Carb) Social Information: Single, Lives in [facility], has male partner. 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 Unsure of family history [...] 1707 07/13/23202507/14/23 0653 07/14/23 1159 07/14/23 1648 07/14/23 2042 07/15/23 0716 07/15/23 1120 07/15/23 1704 07/15/23 2031 07/16/23 0743 GLUCOSEPOC 184* 257* 251* 179* 187* [...] Chief Complaint: NSTI 24 Hour Events: GAEL PEREZ cleaned, reinforced Subjective Pain well controlled, wasn't [...] Intake/Output Summary (Last 24 hours) at 07/16/2023 0556 Last data filed at 07/16/2023 0516 Gross [...] T2DM who presented as a transfer from [facility] on 06/12 with necrotizing fasciitis. S/p [...] VERAS MD, PGY1 07/16/2023 5:56 ACS Pager #[phone] * Nedra Armendariz RN - 07/15/2023 1420 EDT [facility] Department of Case Management and Social Work [...] (wk of 07/21) N Primary Care Provider: MATHEW/ANDRES/SNF referred: Y/N Bed Offers: Y/N Escalated to [...] medically acute for continued IP admission at [facility] Nec fasc debridement x2 (OSH) Serial debridement, repair rectal injury (06/14) Additional debridement, washout (06/16) Additional debridement, washout, partial closure (06/18) Wound vac application (06/21) Wound debridement with WV replacement in OR (07/09) Plan Level of Care: Acute/ IP Admission Point of Origin: [facility] Appropriate for Transfer Return vs Alternative Facility: N/a (reviewed with team 07/07, 07/10) Discharge plan/ Estimated date: TBD Insurance/ LTC Medicaid Status: Medicaid Support Network: sig other Carey ([phone]); Henrietta Randall ([phone]) (CM Note 07/14:) Chart reviewed and updates [...] Armendariz RN CM CMSW Department (Available via [employer]) 07/15/23 14:20 * Carmen Vernon NP - [...] Consistent Carb) Social Information: Single, Lives in [facility], has male partner. 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 Unsure of family history [...] T2DM who presented as a transfer from [facility] on 06/12 with necrotizing fasciitis. S/p [...] clinical course Elsa Ann, MS4 07/15/2023 10:56 ACS Pager #[phone] Attestation statement: I was present with the medical student for the history, exam, and medical decision making documented. I have personally performed my own physical exam and medical decision making. I have verified and agree with (or, as indicated, have edited) the medical student's documentation. ZHAIRA VERAS MD 07/15/2023 13:09 Associated attestation - [...] T2DM who presented as a transfer from [facility] on 06/12 with necrotizing fasciitis. S/p [...] Dispo: PT eval, pending wound evolution TIFF AVILES MD PGY1 ACS #[id number] Associated attestation - Kyle Mars MD - 07/14/2023 2307 EDT Attending Note I examined and discussed this pt with the residents on 07/14/23 and agree with the above note Wound vacc in place, plan for change early next week Kyle Mars MD 5745 * Justin Tovar, RT - 07/13/2023 1377 EDT Respiratory Consult/Progress Note Indications for Respiratory [...] decreased Response: Mild response, increase subjective per WAISTLINE JOINER OVERLOCK Pulse: <100 Resp Rate: 18-25 SOB: With [...] Chief Complaint: NSTI 24 Hour Events: - YVONNEO Subjective Feeling okay this morning, although she feels her pain regimen is not enough. Otherwise comfortableand just finished a breathing treatment. Objective Vital Signs Temp: [36.6 ??C (97.8 ??F)-37.4 ??C (99.4 ??F)] , Heart Rate: [79 BPM-92 BPM] , Pulse: [82-89] , Pulse From Oximetry: [73 BPM-92 BPM] , Resp: [16-] , BP: (129-162)/(59-80) , SpO2: [98 %-100 [...] T2DM who presented as a transfer from [facility] on 06/12 with necrotizing fasciitis. S/p [...] wound evolution LEESA MD PORTER PGY1 ACS #[id number] Associated attestation - Ramón Peraza MD - 07/13/2023 1301 EDT I saw and examined this patient with the residents and agree with the above note as it relates to the observations that were made and the treatment plan that was proposed. My specific comments follow: Satisfactory progress. Continue VAC therapy * Almita Hayes, RT - 07/12/2023 0773 EDT Respiratory Consult/Progress Note Indications for Respiratory [...] decreased Response: Mild response, increase subjective per WAISTLINE JOINER OVERLOCK Pulse: <100 Resp Rate: 18-25 SOB: With [...] airway clearance. PRN neb as scheduled. ALMITA HAYES RT 07/12/23 * Nedra Armendariz, RN - 07/11/2023 1640 EDT CASE MANAGEMENT UPDATE: Level of Care: Acute/ IP Admission Point of Origin: [facility] Appropriate for Transfer Return vs Alternative Facility: N/a (reviewed with team 07/07, 07/10) Discharge plan/ Estimated date: TBD Insurance/ LTC Medicaid Status: Medicaid Barriers to d/c: N/a; medically complex Support Network: sig germain Lezama ([phone]); Henrietta Randall ([phone]) Additional Needs/ Next Steps: Nec fasc debridement [...] in order toprovide patient with adequate supports. Nerda Armendariz RN CM CMSW Department (Available via [employer]) * Melinda Lassiter, PT - 07/11/2023 1402 EDT [facility] Therapy Acute Therapies [facility] Physical Therapy Encounter Note Date of Service: [...] not have correct sling for lift device. CASH SALES AUDIT CLERK assisted throughout bed mobility and sitting; assisted [...] recommendations: Occupational Therapy consult Primary Therapist: Pager: [phone] Melinda Lassiter, PT 07/11/2023 14:02 * Ashleigh Stout, RD - 07/11/2023 1317 EDT Nutrition Assessment Note: Reassessment Admission date: [...] Not assessed (06/14/23 1520) Muscle Mass Assessment Mandaen Region: Well-nourished (06/14/23 1520) Clavicle Region: Well-nourished [...] metroNIDAZOLE (FLAGYL) tablet 500 mg oral Q8H uhptkhwm-pmz-fyhv fum-folic ac 7.5 mg iron-400 mcg tablet [...] Stout RD, CD (Call PAS or use [employer] (OpDemand) to page RD covering this unit) * [...] yesterday PM, reinforced, held suction - NAEO Subjective Seen lying down in bed this [...] T2DM who presented as a transfer from [facility] on 06/12 with necrotizing fasciitis. S/p [...] wound evolution MARQUES KENNY MD PGY1 ACS #[id number] Attestation statement: I performed or was present [...] Joan Menon MD Acute Care Surgery Pager #[phone] 07/10/23 * Rivka Diehl, PT - 07/09/2023 1136 EDT [facility] Therapy Acute Therapy [facility] Physical Therapy Contact Note Date of Service: [...] T2DM who presented as a transfer from [facility] on 06/12 with necrotizing fasciitis. S/p [...] wound evolution MARQUES KENNY MD PGY1 ACS #[id number] Attestation statement: I performed or was present during the cooper or critical portions of the visit and participated in the management of the patient. I agree with the findings and plan of care documented in the resident's/fellow's note. Joan Menon MD Acute Care Surgery Pager #[phone] 07/09/23 * Su Peña, RT - 07/09/2023 2461 EDT Respiratory Consult/Progress Note Indications for Respiratory [...] this time. RT ESTELA 07/09/23 * Nedra Armendariz RN - 07/08/2023 5663 EDT CASE MANAGEMENT UPDATE: Level of Care: Acute/ IP Admission Point of Origin: [facility] Appropriate for Transfer Return vs Alternative Facility: N/a (reviewed with team 07/07) Discharge plan/ Estimated date: TBD Insurance/ LTC Medicaid Status: Medicaid Barriers to d/c: N/a; medically complex Support Network: anya Lezama ([phone]); Henrietta Ayden ([phone]) Additional Needs/ Next Steps: Nec fasc debridement [...] with adequate supports. Nedra Armendariz RN CM [facility] (Available via [employer]) * Jona Porras RT - 07/08/2023 1401 [...] REJI 07/08/23 * Paulette Hoover - 07/08/2023 0929 EDT Images from the original note were [...] T2DM who presented as a transfer from [facility] on 06/12 with necrotizing fasciitis. S/p [...] ppx: lovenox 40 mg qhs Dispo: PT tomás, pending wound evolution MARQUES KENNY MD PGY1 ACS #[id number] Attestation: I performed or was present during [...] Paulette Hoover MD 07/08/2023 9:38 * Su Peña, RT - 07/08/2023 0411 EDT Respiratory Consult/Progress [...] T2DM who presented as a transfer from [facility] on 06/12 with necrotizing fasciitis. S/p [...] wound evolution MARQUES KENNY MD PGY1 ACS #[id number] * Justin Tovar, RT - 07/06/2023 1158 [...] T2DM who presented as a transfer from [facility] on 06/12 with necrotizing fasciitis. S/p [...] wound evolution LEESA MD PORTER PGY1 ACS #[id number] Attestation: I performed or was present during [...] throughout Response: Mild response, increase subjective per WAISTLINE JOINER OVERLOCK Pulse: <100 Resp Rate: 18-25 SOB: With [...] with RT until cough strength improves. RT MARY 07/05/23 * Ashleigh Stout, RD - 07/05/2023 1511 EDT Nutrition Assessment [...] Not assessed (06/14/23 1520) Muscle Mass Assessment Mandaen Region: Well-nourished (06/14/23 1520) Clavicle Region: Well-nourished [...] methocarbamoL (ROBAXIN) tablet 750 mg oral QID zaursqjb-mkb-yeif fum-folic ac 7.5 mg iron-400 mcg tablet [...] Stout RD, CD (Call PAS or use [employer] (OpDemand) to page RD covering this unit) * [...] throughout Response: Mild response, increase subjective per WAISTLINE JOINER OVERLOCK Pulse: <100 Resp Rate: 18-25 SOB: With [...] 07/05/23 * Moo Monique MD - 07/05/2023 0889 EDT Surgery Progress Note Service Date: 07/05/2023 [...] T2DM who presented as a transfer from [facility] on 06/12 with necrotizing fasciitis. S/p [...] status post bronch. Found on 4L NC. 194: Patient did duoneb tx, vest therapy and [...] Encourage patient to use Vpep and cough. REZA BOWERS, 07/04/23 * Reza Bowers, RT - 07/04/2023 0858 EDT Respiratory Extubation [...] T2DM who presented as a transfer from [facility] on 06/12 with necrotizing fasciitis. S/p [...] Dispo: PT tomás Miner MD PGY-5 Pager: #[phone] 07/04/2023 16:48 Attestation: I performed or was [...] diet. Moo Monique MD 07/04/2023 16:57 * Zaira High RN - 07/04/2023 0627 EDT Pt [...] and extubate pending patient condition. Lilli Garrison Flask Carrier PGY3 07/04/2023 6:28 * Ban Guerrero, RT - 07/04/2023 0559 EDT Respiratory Progress [...] ventilation well. RT MEJIA 07/04/23 * Gardenia Brewster, KIESHA - 07/04/2023 0504 EDT Pt will need [...] assessment and plan. Principal Problem: Necrotizing fasciitis ([facility]) Active Problems: Necrotizing soft tissue infection Cardiopulmonary arrest with successful resuscitation ([facility]) Type 2 diabetes mellitus Complete heart block (HCC-CMS) Palliative care by specialist Insufficiency, respiratory, acute Electrolyte and fluid disorder Acute respiratory failure with hypoxia ([facility]) 52 yo in Hx for approx 3 [...] and Toleration of treatments; See detailed notes. BAN GUERRERO, 07/04/23 * Zaira High RN - 07/04/2023 [...] Add LDA for any identified wounds Add [place] image for any suspected PI or non surgical wounds Order wound consult if suspected PI identified If Jerson is < or = to 16, initiate Pressure Injury Prevention Bundle ([id number]). 07/03/2023 22:39 * Michelle Schaefer RN - 07/03/2023 7973 EDT Rapid Response Team Nursing Note (SBAR) Team Times: Call Type: RN Only Call Time: 160 Call Date: 07/03/23 Call Originator: Nurse SAY Callback Time: 1607 SAY Arrival at Bedside: 1612 Team Completion Time: 1700 SAY Completion Time: 1715 Code Status: Full Initial Vitals: BP Source: [...] (Name): Michelle Schaefer RN Respiratory (Name): Alayna RT/Linda RN Patient Support (Name): Eloisa Martinez RN [...] return to 50% ventimask, handoff to Jairo Photoresist Contact Printer RN 1350 update plan is to transfer to SICU [...] Care: Acute/ IP Admission Point of Origin: [facility] [place] Appropriate for Transfer Return vs Alternative Facility: N/a per team Discharge plan/ Estimated date: TBD Insurance/ LTC Medicaid Status: Medicaid Barriers to d/c: N/a; medically complex Support Network: anya Lezama ([phone]); Henrietta Randall ([phone]) Additional Needs/ Next Steps: Nec fasc debridement [...] with adequate supports. Nedra Armendariz RN [facility] (Available via [employer]) * Sandy Chang RN - 07/03/2023 1515 EDT Data: Assumed care @0700. Wound vac to necrotizing fascitis wound, rectal and vuong in for healing,coarse crackles in both lungs, switched from nasal canula to venti mask at shift change this morning. Action: Chest x-ray done at bedside, medicated per APR, encouraged turns and IS and coughing. Had to put venti mask to highest setting and pt going between high 80's and low 90's at this setting. Went down for chest CT. Response: Pt being transferred to SICU for closer monitoring of respiratory status. SANDY CHANG RN 07/03/2023 15:15 * Moo Monique MD - 07/03/2023 0826 EDT Surgery Progress Note Service Date: 07/03/2023 [...] T2DM who presented as a transfer from [facility] on 06/12 with necrotizing fasciitis. S/p [...] mg qhs Wound vac change 07/07 (MWF) Respiratory therapy evaluation for increasing O2 requirement, likely mucous plugging on chest x-ray, encourage I-S and pulmonary toilet DVT ppx: lovenox 40 mg qhs Dispo: PT tomás KENNY MD 07/03/2023 8:59 PGY1 [facility] #[id number] Attestation: I performed or was present during [...] lasix. Pt may need a repeat CXR. Elinagiven, no change. Pt too sleepy to participate [...] if not showing much improvement DAMASO DHILLON, 07/03/23 * Linda Salinas RT - 07/03/2023 0556 EDT Respiratory Consult/Progress [...] decreased Response: Mild response, increase subjective per WAISTLINE JOINER OVERLOCK Pulse: <100 Resp Rate: 26-32 SOB: With [...] Rodriges and RN notified of changes. WCTM. RT TOM 07/03/23 * Ramón Peraza MD - 07/02/2023 9348 EDT Request for Documentation Clarification [facility] Della Browning ; VISIT [id number]; ACCT [id number] Query Response Sent: 07/02/23 11:23 EDT From: [...] From: FOREIGN MIRANDA To: DANA MINER, RAMÓN PERAZA MD Please further clarify the nature of [...] with ABDs and metapore tape. * Melinda Lassiter, PT - 07/02/2023 9208 EDT [facility] Rehabilitation Therapy Acute Therapies [facility] Physical Therapy Encounter Note Date of Service: [...] recommendations: Occupational Therapy consult Primary Therapist: Pager: [phone] Melinda Lassiter, PT 07/02/2023 15:38 * Damaso Dhillon, RT - 07/02/2023 7116 EDT Respiratory Consult/Progress Note Indications for Respiratory [...] Lassiter, PT - 07/02/2023 1245 EDT [facility] Rehabilitation Therapy Acute Therapy [facility] Physical Therapy Contact Note Date of Service: [...] T2DM who presented as a transfer from [facility] on 06/12 with necrotizing fasciitis. S/p [...] tomás KENNY MD 07/02/2023 12:17 PGY1 [facility] #[id number] Attestation: I performed or was present during the cooper or critical portions of the visit and participated in the management of the patient on 07/02/2023. I agree with the findings and plan of care documented in the resident's/fellow's note.No new complaints. I like having a logistic specialist. Vac changedyest, Acell placed to wound. Plan to change on Saturday. Increase bowel meds, continue daily diuresis. Moo Monique MD 07/02/2023 14:39 * Linda Salinas, RT - 07/02/2023 0511 EDT Respiratory Consult/Progress [...] decreased Response: Mild response, increase subjective per WAISTLINE JOINER OVERLOCK Pulse: >100 Resp Rate: 18-25 SOB: With [...] non productive cough, no secretions produced overnight. RT TOM 07/02/23 * Gentry Henderson, RT - 07/01/2023 [...] decreased Response: Mild response, increase subjective per WAISTLINE JOINER OVERLOCK Pulse: >100 Resp Rate: 18-25 SOB: With [...] at Holden's bedside since she moved to [place] [address]. I was told he has transportation issues and was not able to get to [place] last week. Carey answered my call and shared that he is worried that Holden is mad at him, he shared that in the hurry to leave when she was admitted to [facility], he forgot to lock the doorsto their [...] not been able to get transportation to [place] but has decided to travelby bus on Saturday from [facility]. He expects it will take many hours but wants to see Holden. He will discuss his visit with nursing staff on [place] [address] as he does not have a place [...] patient/family hopes, fears and/or concerns Trina Heredia, [facility], [facility] Palliative Care Cloth Printing Utility Worker Epic Chat Only * Katelyn Luna, RN - 07/01/2023 0335 EDT 0110 - Pt reporting SOB, appearing very labored, tachypneic, difficulty tolerating conversation, restless. Requesting inhaler. Attempted to give pt inhaler, pt unable to follow inhalation instructions. Very wet, coarse breath sounds throughout. patternmaker apprentice wood notified, RT paged for eval and breathing tx.Pt desatting to 87-88, NC increased to 6L and sat up, work of breathing unrelieved. Pt placed on simple mask, o2 sats up to 92 but still tachypeneic 35 - 40 RR. Pt placed on nonrebreather, sats increased to mid 90's but no change in WOB. Rapid RN and provider notified by charge hand, RT at bedside and breathing tx given.=, [...] 0936 06/28/23 1443 06/29/23 0915 06/29/23 1433 06/30/23 0804 06/30/23 1212 06/30/23 1751 06/30/23 2347 NA 127* [...] T2DM who presented as a transfer from [facility] on 06/12 with necrotizing fasciitis. S/p [...] tomás AZAR MD 07/01/2023 2:43 PGY3 [facility] #[id number] Attestation: I performed or [...] earlier this shift. Duoneb administered by RT ELECTRIC MELT OPERATOR. Patient reporting increased ease of breathing. Lung sounds coarse, minimally productive cough. Endorses central chest pain with inspiration. MD called to bedside. Order obtained for IV lasix (see MAR). Morning labs drawn early. Patient to remain on B6 at this time with low threshold for PLASTIC DESIGN APPLIER call. ERNs available for assistance. * Fabian [...] or has increased oxygen demand. * Taniya Jason, CCC-BANKING ANALYST - 06/30/2023 1418 EDT Speech-Language Pathology Clinical Swallow Consult Name: Della Browning Address: [address] [place] [id number] (home) Date of : 1970 Primary Physician: UNKNOWN,PROVIDER Referring Physician: John Dooley MD BANKING ANALYST Diagnosis: Dysphagia, unspecified difficulty: Medical Diagnosis: Necrotizing fasciitis ([facility]) [M72.6] Date of Onset: 06/13/2023 Date of Referral: 06/23/23 Date of Service: 06/30/2023 Total Treatment Time: 20 min Name of Provider: Taniya Jason MS CCC-BANKING ANALYST Subjective/Objective SUBJECTIVE: Not very re: appetite OBJECTIVE: BANKING ANALYST returns to address oral-pharyngeal swallowing Current Precautions: none identified other than significant wound on buttocks 24o Events Relevant to BANKING ANALYST: EN tube removed due to improved intake [...] feeding.ongoing RT interventions for wheeziness- mitigated by neb txs; Clinical Swallowing: Patient/Family: consented to completing [...] able to self administer all items with BANKING ANALYST assistance using a spoon, cup and straw. [...] 52 y.o. female admitted with Necrotizing fasciitis ([facility]) [M72.6] A clinical swallow consult was completed [...] patient will tolerate current recommendations. No further BANKING ANALYST. PLANS/RECOMMENDATIONS: Food and Liquid Textures: Continue Mechanical Soft diet textures to ease chewing/swallowing effort in setting of not wearing dentures, compromised respiratory status and positioning constraints due to wound on buttocks Defer to MD and RD to determine nutritional parameters Medication Administration: Whole in a bite of pureed food Feeding/Eating Strategies: Please assist with tray set up and upright positioning for PO BANKING ANALYST to follow up : No Anticipated BANKING ANALYST needs at discharge from Acute Medical Setting: see below Recommended Discharge Setting based on current status: anticipate likely need for intensive rehab at discharge. May benefit from formal Communication- Cognitive evaluation if demonstrating residual impairments as she strengthens medically. Taniya Jason MS CCC-BANKING ANALYST 06/30/2023 14:18 Speech-Language Pathologist Acute Rehabilitation Therapy (BANKING ANALYST/OT/PT) Secure Chat preferred #[phone] (Saturday- from [phone]) Float BANKING ANALYST Pager #[phone] (Daily from [phone]) * Moo Monique MD - 06/30/2023 0949 [...] T2DM who presented as a transfer from [facility] on 06/12 with necrotizing fasciitis. S/p [...] 21:02 * Fabian May, RT - 06/30/2023 0443 EDT Respiratory Consult/Progress Note Indications for Respiratory [...] throughout Response: Mild response, increase subjective per WAISTLINE JOINER OVERLOCK Pulse: <100 Resp Rate: 18-25 SOB: At [...] neb. Pt maintained QID per scoring protocol. RT ADALGISA 06/30/23 * Mell Martinez, RT - 06/29/2023 [...] decreased Response: Mild response, increase subjective per WAISTLINE JOINER OVERLOCK Pulse: <100 Resp Rate: 18-25 SOB: With [...] distress noted. Plan Wean oxygen as tolerated. RT KIKI 06/29/23 * Chato Patel MD - 06/29/2023 [...] T2DM who presented as a transfer from [facility] on 06/12 with necrotizing fasciitis. S/p [...] PATEL MD 06/29/2023 8:49 PGY2 [facility] pager #[phone] Associated attestation - Jorge Ba MD - [...] Jorge Ba MD Acute Care Surgery Pager: [phone] * Fabian May, RT - 06/29/2023 4696 EDT Respiratory Consult/Progress Note Indications for Respiratory [...] throughout Response: Mild response, increase subjective per WAISTLINE JOINER OVERLOCK Pulse: <100 Resp Rate: 18-25 SOB: With [...] Not assessed (06/14/23 1520) Muscle Mass Assessment [place] Region: Well-nourished (06/14/23 1520) Clavicle Region: Well-nourished [...] Stout RD, CD (Call PAS or use [employer] (OpDem[employer]) to page RD covering this unit) * Brittani Heredia - 06/28/2023 1255 EDT Palliative care SW unable to reach Holden's partner Carey for a check in. Will follow next week and if Carey is at bedside will conduct visit and provide psychosocial supportduring stay, otherwise will follow with calls to family Trina Heredia, PODIATRY DOCTOR, RESEARCH ASSOCIATE Palliative Care Cloth Printing Utility Worker Epic Chat Only * Melinda Lassiter, PT - 06/28/2023 1229 EDT [facility] Rehabilitation Therapy Acute Therapies [facility] Physical Therapy Initial Evaluation Note Date of [...] admitted on 06/13/2023 secondary to Necrotizing fasciitis ([facility]) [M72.6] The patient lives at [address] [place] [address] Summary assessment on 06/28/[address] Chato Beckwith 52 y.o. female with a history of HTN and T2DM who presented as a transfer from [facility] on 06/12 with necrotizing fasciitis. S/p [...] Patient Active Problem List Diagnosis Necrotizing fasciitis ([facility]) Necrotizing soft tissue infection Cardiopulmonary arrest with successful resuscitation ([facility]) Type 2 diabetes mellitus Complete heart block ([facility]) Palliative care by specialist Insufficiency, respiratory, acute Electrolyte and fluid disorder Acute respiratory failure with hypoxia ([facility]) Past: No past medical history on file. [...] provided by physical therapist and/or physical therapist inside sales assistant when medically appropriate. Frequency: Frequency: daily [...] provider Other recommendations: Occupational Therapy consult Pager: [phone] Melinda Lassiter, PT 06/28/2023 12:32 * Almita [...] Response/Results Change nebs to Q4 as requested. RT BRANDON 06/28/23 * Moo Monique MD - 06/28/2023 [...] T2DM who presented as a transfer from [facility] on 06/12 with necrotizing fasciitis. S/p [...] qhs Dispo: PT eval CHATO PATEL MD 06/28/2023 8:27 PGY2 [facility] pager #[phone] Attestation: I performed or was present during [...] Lassiter, PT - 06/27/2023 1009 EDT [facility] Rehabilitation Therapy Acute Therapy [facility] Physical Therapy Contact Note Date of Service: 06/27/2023 PT met with Ms Browning at 0955 and reviewed role of PT in her [...] next few days for PT evaluation. Melinda Lassiter PT 06/27/2023 10:09 * Robb Ojeda, RT - 06/27/2023 0846 EDT Patient given VPEP and will use independently * Aura Morris, RN - 06/27/2023 0838 EDT Received pt from PACU. O2 at [...] applied Labs: CBC: Recent Labs 06/25/23 0833 06/25/23 2238 06/26/23 0608 06/26/23 0804 WBC 10.99 20.32* 10.84 9.99 RBC 2.74* 3.43* 2.41* 2.58* HGB 8.2* 10.4* 7.3* 7.4* HCT 24.2* 30.8* 21.4* 22.8* MCV 88 90 89 88 MCH 29.9 30.3 30.3 28.7 MCHC 33.9 33.8 34.1 32.5 PLT 389* 592* 349 336 NEUTROABS 9.06* -- 8.63 8.19 BMP: Recent Labs 06/25/23 0833 06/25/23 2238 06/26/23 0608 NA 132* 132* 131* K 4.5 5.0 4.3 CL 99 98 99 CO2 23 BUN CREATININE 0.40* 0.45* 0.48* CALCIUM 8.0* 8.5 [...] T2DM who presented as a transfer from [facility] on 06/12 with necrotizing fasciitis. S/p [...] cc, mechanical soft diet. Bowel regimen. Appreciate BANKING ANALYST. No abx due to adequate source control Rectal tube for wound hygiene Nystatin powder BID ordered to perianal/gluteal cleft skin Continue gentle diuresis daily DVT ppx: lovenox 40 mg qhs Dispo: PT tomás AZAR MD 06/27/2023 7:22 PGY3 [facility] pager #[phone] Associated attestation - Hira Franklin MD - 06/27/2023 1206 EDT I examined the patient with the resident/MADELINE I agree with the above findings and plan. Additional comments: Continuing wound care. Negative pressure dressing. Planning for closure once wound stable. * Aura Morris RN - 06/27/2023 0315 EDT FOUR EYES SKIN [...] palliative care team and I will follow ancheck in with her and her family Recommendation and/or follow up plan: Plan to follow for psychosocial support Interventions: explore patient/family understanding of medical condition/hospital stay Trina Heredia, PODIATRY DOCTOR, RESEARCH ASSOCIATE Palliative Care Cloth Printing Utility Worker Epic Chat Only * Damaso Dhillon, RT [...] with encouragement for small to moderate secretions. [place] in color. Plan is for pt to go to OR for a wash out sometime today and possibly out tothe floors after. Will continue to follow for airway clearance. Decreased oxygen from 3L to 2L. 1553: decreased oxygen to 1L. Pt has been getting diuresed daily. Pt still waiting to go to OR but has transfer orders to the floors in the meantime. RT BRANDIE 06/26/23 * Tai Azar MD - 06/26/2023 [...] T2DM who presented as a transfer from [facility] on 06/12 with necrotizing fasciitis. S/p [...] AZAR MD 06/26/2023 7:59 PGY3 [facility] pager #[phone] Associated attestation - Hira Franklin MD - 06/26/2023 1310 EDT I examined the patient with the resident/MADELINE I agree with the above findings and plan. Additional comments: Planning excisional debridement. and major dressing change today. * Karley Patton RN - 06/26/2023 0652 EDT FOUR EYES SKIN ASSESSMENT Four Eyes [...] Add LDA for any identified wounds Add [place] image for any suspected PI or non surgical wounds Order wound consult if suspected PI identified If Jerson is < or = to 16, initiate Pressure Injury Prevention Bundle ([id number]). 06/26/2023 6:53 * Jona Ocampo, RT - [...] weaned tonight, several ABGs drawn most recent 7.43/38/89/26/1 Will attempt trials off bipap this AM. [...] [82 %-100 %] I/O: Current Shift: 06/25 0700 - 06/25 1459 In: - Out: 250 [Urine:250] 24 hours: 06/24 0700 - 06/25 0659 In: 360 Out: 2425 [...] 2. Left lower lobe consolidation, presumably atelectasis. [id number] XR CHEST PORTABLE 1 VIEW Result Date: 06/26/2023 1. Persistent findings of pulmonary edema with progressive left basilar opacity felt to reflect enlarging pleural fluid and adjacent lower lobe consolidation. 2. Increasing hazy opacity in the right lung base may reflect additional layering pleural fluid. I have personally reviewed the images and the above interpretation and agree with the findings. [id number] Labs: CBC: Recent Labs 06/25/23 0833 06/25/23223706/26/23 [...] results for input(s): PHISTAT, PCOISTAT, POISTAT, POCTCO2, U0PQJIXB, POCFIO2 in the last 72 hours.Cardiac Markers: Recent Labs 06/24/23 0507 06/25/232237 TROPONINI 0.161* 0.080* Lactic: No results for input(s): LACTICACID in the last 72 hours. Assessment: 52 y.o. female with a history of HTN and T2DM who presented as a transfer from [facility] on 06/12 with necrotizing fasciitis. S/p [...] ÁNGEL BUSTAMANTE MD 06/26/2023 09:08 SICU Housestaff #[phone] (Service Pager) Associated attestation - Edgar Thomas [...] procedures. Edgar Thomas MD 0:07 * Emma Marcum, - 06/26/2023 0031 EDT Respiratory Rapid Response [...] 06/26/23 * Miquel Jaime RN - 06/25/2023 231 EDT Rapid Response Team Nursing Note (SBAR) Team Times: Call Type: PLASTIC DESIGN APPLIER Call Time: 2224 Call Date: 06/25/23 Call [...] Call debriefed with: Nurse;Doctor;Charge Nurse;ANC Additional Detail: PLASTIC DESIGN APPLIER called for acute oxygen desaturation. Arrive to patient sitting in bed, tachypneic on NRB 15L, O2 sat 83%. Hypertensive 200s/100s, HR 110s. Unable to recover O2 >85% on 100% O2, increasingly drowsy throughout call. Labs drawn, ABG attempted, CXR completed, transferred to SICU for respiratorysupport. * Mary Pendleton RN - 06/25/20230 EDT Pt transferred to SICU after RN noted pt to be in respiratory distress, pt's sat 70% on RA, tachypneic, anxious, restless, trying to climb oob, stating she can't breathe, 6L NC applied while awaitingmask, venti mask applied then non rebreather, sat only improved to 78%, charge hand aware, rapid response was called, report given [...] tach, grossly unchanged from prior, no significant Joe/d CT PE Reviewed and confirmed Code Status [...] service: 06/25/2023 Sabas Lancaster MD * Hill Kim, RT - 06/25/20232021 EDT Respiratory Consult/Progress Note [...] Vitals remain stable. Plan of care ongoing. HILL KIM RT 06/25/23 * So Anne, RD - 06/25/2023 1208 EDT Nutrition Assessment [...] Not assessed (06/14/23 1520) Muscle Mass Assessment [place]anda[place] Region: Well-nourished (06/14/23 1520) Clavicle Region: Well-nourished [...] 1520) Physical Findings: Digestive Systems: Last BM RT [...] Anne RD, CD (Call PAS or use [employer] ([employer]) to page RD covering this unit) * Elizabeth Soriano - 06/25/2023 1151 EDT Inpatient Palliative Care Initial Spiritual Assessment Re: Della Browning : 1970, AGE: 52 y.o. ROOM: [place] [address] BACKGROUND Palliative Care was consulted to assist with clarifying goals of care. Present for visit: Della and this drag down Della at times seemed confused during visit. ASSESSMENT Beliefs & Values No confucianist affiliation Connections At first, Della stated that she has no family. Later she stated she lives with [place] but did not disclose their relationship. It is well documented this is her significant other and that Della does have other family members. Recommend reading Palliative Care social worker palliative care's notes for psychosocial assessment. Coping Della is unsure what helps her through difficult times. Meaning Making Della was unsure what is most important to her now. She stated she has been hospitalized since March. INTERVENTIONS Active and empathetic listening, validation of feelings, exploration of support systems CARE PLAN Palliative Care will continue to follow. Pomology Teacher will attempt to connect with patient's spouse to offer spiritual and emotional support. RECOMMENDATIONS Request Spiritual Care support should patient/family show signs of spiritual/emotional distress. TIME STAMP: 15 minutes Elizabeth Soriano [facility] Pomology Teacher, Palliative Care * Reza Bowers RT - 06/25/2023 1047 EDT Respiratory Consult/Progress [...] T2DM who presented as a transfer from [facility] on 06/12 with necrotizing fasciitis. S/p [...] GODINEZ MD 06/25/2023 9:09 PGY3 [facility] pager #[phone] Associated attestation - Hira Franklin MD - 06/25/2023 1502 EDT I examined the patient with the resident/MADELINE I agree with the above findings and plan. Additional comments: Local wound care, glucose control. Needs debridement tomorrow. * Su Peña, RT - 06/25/2023 0600 EDT Respiratory Consult/Progress [...] 06/24/2023 1450 EDT Request for Documentation Clarification [facility] Della Browning ; VISIT [id number]; ACCT [id number] Final Query Response Sent: 06/24/23 14:50 EDT [...] was on dexmedetomidine * Taniya Jason, MS [facility]-BANKING ANALYST - 06/24/2023 1411 EDT Speech-Language Pathology Clinical Swallow Evaluation Name: Della Browning Address: [address] [place] [address] [address] [facility] [address]home) Date of : 1970 Primary Physician: UNKNOWN,PROVIDER Referring Physician: John Dooley MD BANKING ANALYST Diagnosis: Dysphagia, unspecified difficulty: Medical Diagnosis: Necrotizing fasciitis ([facility]) [M72.6] Date of Onset: 06/13/2023 Date of Referral: 06/23/23 Date of Service: 06/24/2023 Total Treatment Time: 20 min Name of Provider: Taniya Jason, CCC-BANKING ANALYST Subjective/Objective SUBJECTIVE: I got 'em on top and bottom; dentures I'm gearing up to tackle more of my tuna sandwich OBJECTIVE: BANKING ANALYST was consulted to assess oral-pharyngeal swallowing Current Precautions: none identified History: Per provider notes with information relevant to BANKING ANALYST evaluation, Ms Della Browning is a 52 y.o. female with a history of HTN and T2DM who presented as a transfer from [facility] on 06/12 with necrotizing fasciitis. S/p [...] feeds. SLPevaluation today 24o Events Relevant to BANKING ANALYST: per MD, concerns expressed by SICU RN [...] able to self administer all items with BANKING ANALYST assistance using a spoon, cup and straw. [...] 52 y.o. female admitted with Necrotizing fasciitis ([facility]) [M72.6] A clinical swallow evaluation was completed [...] course. Anticipate patient will tolerate current recommendations. BANKING ANALYST to follow. GOALS: Patient will swallow bites of food consistencies without signs of aspiration during all BANKING ANALYST sessions Patient will swallow sips of liquids without signs of aspiration during all BANKING ANALYST sessions. Patient will demonstrate understanding of rationale [...] set up and upright positioning for PO BANKING ANALYST to follow up : Yes, will follow up under a consult model of care. May benefit from formal Communication-Cognitive evaluation if demonstrating residual impairments as she strengthens medically. Next BANKING ANALYST session: Confirm tolerance of diet and advance as appropriate Anticipated BANKING ANALYST needs at discharge from Acute Medical Setting: To be determined Recommended Discharge Setting based on current status: anticipate likely need for intensive rehab at discharge. Taniya Jason MS CCC-BANKING ANALYST 06/24/2023 14:11 Speech-Language Pathologist Acute Rehabilitation Therapy (BANKING ANALYST/OT/PT) Secure Chat preferred #[phone] (Saturday- from [phone]) Float BANKING ANALYST Pager #[phone] (Daily from [phone]) * Reza Bowers, RT - 06/24/2023 1242 [...] technique. REZA BOWERS, RT 06/24/23 * Monica Sagastume DPT - 06/24/2023 1141 EDT [facility] Rehabilitation Therapy Acute Therapy [facility] Physical Therapy Contact Note Date of Service: [...] Care: Acute/ IP Admission Point of Origin: [facility] Appropriate for Transfer Return vs Alternative Facility: N/a per team Discharge plan/ Estimated date: TBD Insurance/ LTC Medicaid Status: Medicaid Barriers to d/c: N/a; medically complex Support Network: anya Lezama ([phone]); Henrietta Randall ([phone]) Additional Needs/ Next Steps: Nec fasc debridement x2 (OSH) Serial debridement, repair rectal injury (06/14) Additional debridement, washout (06/16) Additional debridement, washout, partial closure (06/18) (CM Note 06/23:) Patient transferred from ICU to gen surgery unit. Remains acute for continued IP hospitalization. LDAs: David/ ngt, urinary catheter, rectal tube, PIV, WV (change M/W/F) Infusions: TF (Promote @ 106ml/ hr) Pending BANKING ANALYST evaluation today. Care Team: ACS (primary team), Cardiology, Palliative Care, PT, BANKING ANALYST, This CM will continue to follow and assist with coordination of disposition plan dependent on clinical course/ care team recommendations. Please reach out with any additional questions/ concerns, or acute changes in care plan in order toprovide patient with adequate supports. Nedra Armendariz RN CM CMSW Department (Available via Lyxia) * Chato Patel MD - 06/24/2023 0852 EDT Surgery Progress Note Service Date: 06/24/2023 [...] T2DM who presented as a transfer from [facility] on 06/12 with necrotizing fasciitis. S/p [...] PATEL MD 06/24/2023 8:52 PGY3 ACS pager #[phone] Associated attestation - Hira Franklin MD - 06/24/2023 1442 EDT I examined the patient with the resident/MADELINE I agree with the above findings and plan. Additional comments: Recovering appropriately. Managing medical co morbidities and providing major wound care. * Christy Porras, RT - 06/23/2023 1803 EDT Respiratory Consult/Progress Note Indications for Respiratory [...] decreased Response: Mild response, increase subjective per WAISTLINE JOINER OVERLOCK Pulse: >100 Resp Rate: 26-32 SOB: At [...] RT ALEISHA 06/23/23 * Taniya Jason MS CCC-BANKING ANALYST - 06/23/2023 1706 EDT Speech-Language Pathology Contact Note BANKING ANALYST consult received for: Clinical Bedside Swallow Evaluation. Will follow up to provide interventions as appropriate. Taniya Jason MS CCC-BANKING ANALYST 06/23/2023 17:06 Speech-Language Pathologist Acute Rehabilitation Therapy (BANKING ANALYST/OT/PT) Secure Chat preferred Float BANKING ANALYST Pager #[phone] (Daily from [phone]) * Reza Poon RT - 06/23/2023 1312 EDT Respiratory Consult/Progress [...] decreased Response: Mild response, increase subjective per WAISTLINE JOINER OVERLOCK Pulse: <100 Resp Rate: 18-25 SOB: With [...] T2DM who presented as a transfer from [facility] on 06/12 with necrotizing fasciitis. S/p [...] Will have nursing bedside swallow eval +/- BANKING ANALYST assessment Continue tube feeds and FW boluses. No abx due to adequate source control--F/U WBC tomorrow Wound vac change tomorrow (MWF) Rectal tube for wound hygiene Transfer to floor today DVT ppx: lovenox 40 mg qhs Dispo: transfer to floor TAI AZAR MD 06/23/2023 10:17 PGY3 ACS pager #[phone] * Abebe Stewart RN - 06/23/2023 0512 [...] STEWART RN 06/23/2023 5:12 * Shelly Yancey, - 06/23/2023 5733 EDT Respiratory Progress Note Indications for Respiratory [...] but initially stated that she was in [place] where she normally receives care but did indicate understanding when was informed that she is now in [facility]. Holden was able to verbalize that she [...] verbalized that she would like her partner Lezama and her niece Leander to make decisions for her and approved of their initial decision to make her DNR/DNI based on her condition at that time. When Holden was informed that her wound would likely take several months of intensive rehab, likely inside of a intensive rehab facility/correction, Holden verbalized that she would be okay [...] CODE STATUS will be reinitiated. Leander and Lezama are both amenable to ongoinggoals of care conversations with palliative care. Ángel Bustamante MD 06/22/23 14:39 Emergency Medicine Resident, PGY1 SICU House Staff #[phone] (Service Pager) * Tai Azar MD - [...] T2DM who presented as a transfer from [facility] on 06/12 with necrotizing fasciitis. S/p [...] AZAR MD 06/22/2023 12:50 PGY3 ACS pager #[phone] Associated attestation - Efraín Rueda MD - 06/22/2023 8774 EDT Attending attestation statement: I saw and examined the patient and agree with the findings and plans as documented. Doing well, will attempt wound vac placement today. Appreciate SICU management. Darien Rueda MD Acute Care Surgery Pager #[phone] * Moo Monique MD - 06/22/2023 0704 [...] [93 %-100 %] I/O: Current Shift: 06/21 0600 - 06/21 1459 In: 147.6 [I.V.:7.6] Out: [...] June, and [place] [facility] [place] [facility]. 4/5 strength in the [...] lobe atelectasis and persistent interstitial pulmonary edema. [id number] XR FEEDING TUBE PLACEMENT Result Date: 06/20/2023 Findings/Impression: Portable AP view centered over the lower chest upper abdomen demonstrates thatthe feeding tube tip projects over the 2nd-3rd portion of the duodenum. This is neither a complete view of the chest nor of the abdomen. If either view is needed, formal films are recommended. [id number] XR FEEDING TUBE PLACEMENT Result Date: 06/18/2023 [...] above interpretation and agree with the findings. [id number] XR CHEST PORTABLE LINE PLACEMENT Result Date: 06/18/2023 Right internal jugular temporary pacemaker wire lead in right ventricle. Dense left lower lobe atelectasis. Probable bilateral pleural effusions. [id number] CT CHEST WO CONTRAST Result Date: 06/18/2023 [...] above interpretation and agree with the findings. [id number] XR CHEST PORTABLE 1 VIEW Result Date: 06/18/2023 Interval extubation and removal of NG tube. Transvenous pacemaker wire tip in right ventricular apex. Interval development of left lower lobe atelectasis. Probable developing right lower lobe atelectasis. [id number] XR CHEST PORTABLE LINE PLACEMENT Result Date: 06/17/2023 Slight retraction of pacemaker lead tip, now projecting just beyond tricuspid valve within the right ventricle. ET tube and NG tube as seen previously. Dense left lower lobe atelectasis and probable subsegmental atelectasis at the right lung base. [id number] XR CHEST PORTABLE LINE PLACEMENT Result Date: 06/16/2023 Lines and tubes as described. Improving left lower lobe atelectasis. [id number] XR CHEST PORTABLE LINE PLACEMENT Result Date: 06/16/2023 Improving left lower lobe atelectasis. Endotracheal tube in the midthoracic trachea. Apparent kink of the proximal portion of the subclavian catheter which is likely projectional. [id number] XR CHEST PORTABLE 1 VIEW Result Date: [...] above interpretation and agree with the findings. [id number] XR FEEDING TUBE PLACEMENT Result Date: 06/15/2023 [...] view is needed, formal films are recommended. [id number] Labs: CBC: Recent Labs 06/20/23 0501 06/21/23 [...] Check CBCs daily Lovenox DVT ppx ID: [facility] cultures with 1/4 bottles growing gram positive [...] Emergency Medicine Resident, PGY1 SICU House Staff #[phone] (Service Pager) Attestation: I performed or was present during the cooper or critical portions of the visit and participated in the management of the patient on 06/22/2023. I agree with the findings and plan of care documented in the resident's/fellow's note.Looks much better today, eating breakfast, on RA, Lezama at bedside. Will d/c insulin gtt, increase [...] and assess RT MITZI 06/22/23 * Antonio Vasquez, RT - 06/21/2023 1544 EDT Respiratory Progress [...] further Community/Support System: Holden's support system is Lezama & her niece Leander. Carey shared that [...] able to do in quite some time. Spiritual/Adventist Considerations (FICA assessment): see drag down's notes Living Arrangements/Care Needs: Della lives in an apartment with her significant other Carey. Whitney requires assistance with ADL's and IADL's for quite some time and Lezama has purchased equipment for home and made [...] for ADL's and IADL's as she recovers. Lezama shared that he feels equipped to care [...] like to be in a hospital or correction. A restorative path forward would require some time in a facility which is not aligned with her goals. We will continue to explore this with Della and her family, we are hoping Della will be able to participate in some of these conversations pending clinical progress. Needs/barriers to achieve stated goals: Della's recovery is likely to require nursing home care in a facility which is not aligned with her goals to remain at home. We will continue to explore this with her and her family. Recommendations and Follow up Plan Palliative care team to follow Trina Heredia, PODIATRY DOCTOR, RESEARCH ASSOCIATE Palliative Care Cloth Printing Utility Worker Epic Chat Only' * Tai Azar MD [...] T2DM who presented as a transfer from [facility] on 06/12 with necrotizing fasciitis. S/p [...] AZAR MD 06/21/2023 12:01 PGY3 ACS pager #[phone] Associated attestation - Efraín Rueda MD - 06/21/2023 1520 EDT Attending attestation statement: I saw and examined the patient and agree with the findings and plans as documented. Dressing changed without need for repeat I&D at present. Will attempt WV placement today. WBC downtrending to 15k. Darien Rueda MD Acute Care Surgery Pager #[phone] * Dayan Ulloa, LORENA - 06/21/2023 0905 EDT Nutrition Assessment Note: [...] Not assessed (06/14/23 1520) Muscle Mass Assessment [place] Region: Well-nourished (06/14/23 1520) Clavicle Region: Well-nourished [...] of wasting (06/14/23 1520) Physical Findings: Pulmonary: HFNC Digestive Systems: Last [...] Needs: MSJ x1.0-1.2 (using 86.2 kg) = 4992-1075 kcals/day 1.5 g/kg protein (using 65.9 kg [...] ULLOA RD, CD (Call PAS or use [employer] (OpDemand) to page RD covering this unit) * [...] to self, month/year, and that sheis in [place] but states that she is in a cabin in the [facility]. 4/5 strength in the LUE, 5/5 strength [...] lobe atelectasis and persistent interstitial pulmonary edema. [id number] XR FEEDING TUBE PLACEMENT Result Date: 06/20/2023 Findings/Impression: Portable AP view centered over the lower chest upper abdomen demonstrates thatthe feeding tube tip projects over the 2nd-3rd portion of the duodenum. This is neither a complete view of the chest nor of the abdomen. If either view is needed, formal films are recommended. [id number] XR FEEDING TUBE PLACEMENT Result Date: 06/18/2023 [...] above interpretation and agree with the findings. [id number] XR CHEST PORTABLE LINE PLACEMENT Result Date: 06/18/2023 Right internal jugular temporary pacemaker wire lead in right ventricle. Dense left lower lobe atelectasis. Probable bilateral pleural effusions. [id number] CT CHEST WO CONTRAST Result Date: 06/18/2023 [...] edema. Correlate with physical exam. Follow-up with [facility] is recommended if these findings are not felt to be acute. I have personally reviewed the images and the above interpretation and agree with the findings. [id number] XR CHEST PORTABLE 1 VIEW Result Date: 06/18/2023 Interval extubation and removal of NG tube. Transvenous pacemaker wire tip in right ventricular apex. Interval development of left lower lobe atelectasis. Probable developing right lower lobe atelectasis. [id number] XR CHEST PORTABLE LINE PLACEMENT Result Date: 06/17/2023 Slight retraction of pacemaker lead tip, now projecting just beyond tricuspid valve within the right ventricle. ET tube and NG tube as seen previously. Dense left lower lobe atelectasis and probable subsegmental atelectasis at the right lung base. [id number] XR CHEST PORTABLE LINE PLACEMENT Result Date: 06/16/2023 Lines and tubes as described. Improving left lower lobe atelectasis. [id number] XR CHEST PORTABLE LINE PLACEMENT Result Date: 06/16/2023 Improving left lower lobe atelectasis. Endotracheal tube in the midthoracic trachea. Apparent kink of the proximal portion of the subclavian catheter which is likely projectional. [id number] XR CHEST PORTABLE 1 VIEW Result Date: [...] above interpretation and agree with the findings. [id number] XR FEEDING TUBE PLACEMENT Result Date: 06/15/2023 [...] view is needed, formal films are recommended. [id number] Labs: CBC: Recent Labs 06/19/23 0504 06/20/23 [...] Emergency Medicine Resident, PGY1 SICU House Staff #[phone] (Service Pager) Attestation: I performed or was [...] mins Moo Monique MD 06/21/2023 14:50 * Mary Cho - 06/21/2023 3184 EDT Respiratory Progress Note Indications for Respiratory [...] assess for sxn/AWC. MARY CHO 06/21/23 * Antonia Rodriguez RN - 06/20/2023 1439 EDT [facility]rack Feeding Tube Placement Procedure Note Title of Procedure: Cortrack Feeding Tube Placement Date Performed: 06/20/2023 Time Performed: 1329 Performed by: Mary Rodriguez RN Indications and/or [...] Brito MD Palliative Care: Vicente Longoria NP Executive Assistant: John Vallejo Nurse: Red Norton RN Significant other: Carey Victor Niece: Leander Meeting: A goals of care [...] from there. HOLDEN'S PREVIOUSLY STATED WISHES: AVOID [employer] WORK[employer] HALF-WAY CARE. 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 Over the past couple months since this occurred, Carey has had to install ramps, handles, get her a walker, and even install a shower chair around his house because her deficits are so severe, but again, Holden did not want to seek medical care for fear of being transition to a correction. On the night that Holden finally came [...] spending significant amounts of time in a correction, but states I do not want to [...] her goals of care decision making personally. Carey and Leander expressed gratitude for this conversation and would like to have more of these conversations as her clinical course progresses. Ángel Bustamante MD 06/20/23 18:45 Emergency Medicine Resident, PGY1 [facility] Staff #[phone] (Service Pager) * Jona Porras RT - [...] Damon DPT - 06/20/2023 1136 EDT [facility] Rehabilitation Therapy Acute Therapy [facility] Physical Therapy Contact Note Date of Service: [...] Level of Care: Acute Point of origin: [facility] Appropriate to transfer back or to an [...] present at bedside. Hotel room wasoffered to Lezama yesterday but was declined due to not having reliable transport to and from the hotel. Cm will offer additional supports as needed and appropriate. Update. CM met Lezama outside the SICU and checked in again on support needs for meals and or a hotelroom. Both offers were declined. CM will continue to offer supports. CMSW John Vallejo SQL PROGRAMMER ANALYST * Tai Azar MD - 06/20/2023 0937 [...] T2DM who presented as a transfer from [facility] on 06/12 with necrotizing fasciitis. S/p [...] AZAR MD 06/20/2023 9:37 PGY3 ACS pager #[phone] Associated attestation - Efraín Rueda MD - 06/20/2023 1630 EDT Attending attestation statement: I saw and examined the patient and agree with the findings and plans as documented. Appreciate ongoing SICU care. Henrietta will be available today, recommend palliative care consultationto discuss goals of care. Darien Rueda MD Acute Care Surgery Pager #[phone] * Moo Monique MD - 06/20/2023 6275 EDT SICU Daily Progress Note Admit Date: [...] no significant hypoxic events Able to contact henrietta who noted that she has always avoided [...] [92 %-100 %] I/O: Current Shift: 06/19 0700 - 06/19 1459 In: 117.5 Out: 725 [...] above interpretation and agree with the findings. [id number] XR CHEST PORTABLE LINE PLACEMENT Result Date: 06/18/2023 Right internal jugular temporary pacemaker wire lead in right ventricle. Dense left lower lobe atelectasis. Probable bilateral pleural effusions. [id number] CT CHEST WO CONTRAST Result Date: 06/18/2023 [...] above interpretation and agree with the findings. [id number] XR CHEST PORTABLE 1 VIEW Result Date: 06/18/2023 Interval extubation and removal of NG tube. Transvenous pacemaker wire tip in right ventricular apex. Interval development of left lower lobe atelectasis. Probable developing right lower lobe atelectasis. [id number] XR CHEST PORTABLE LINE PLACEMENT Result Date: 06/17/2023 Slight retraction of pacemaker lead tip, now projecting just beyond tricuspid valve within the right ventricle. ET tube and NG tube as seen previously. Dense left lower lobe atelectasis and probable subsegmental atelectasis at the right lung base. [id number] XR CHEST PORTABLE LINE PLACEMENT Result Date: 06/16/2023 Lines and tubes as described. Improving left lower lobe atelectasis. [id number] XR CHEST PORTABLE LINE PLACEMENT Result Date: 06/16/2023 Improving left lower lobe atelectasis. Endotracheal tube in the midthoracic trachea. Apparent kink of the proximal portion of the subclavian catheter which is likely projectional. [id number] XR CHEST PORTABLE 1 VIEW Result Date: [...] above interpretation and agree with the findings. [id number] XR FEEDING TUBE PLACEMENT Result Date: 06/15/2023 [...] view is needed, formal films are recommended. [id number] Labs: CBC: Recent Labs 06/18/23 0432 06/19/23 [...] Vuong catheter indicated Communication: Updates: Family updated today;land surveying survey worker involved;Palliative care involved;Spiritual care offered Interdisciplinary Items: Patient Eligible For Transfer: No Daily Goals: Tube feeds restart, wean O2, up to chair, control BP, follow K Ángel Bustamante MD 06/20/23 12:07 Emergency Medicine Resident, PGY1 SICU House Staff #[phone] (Service Pager) Attestation: I performed or was [...] abx's. Thiamine/folate added given alcohol use hx. DELIO, Carey, at bedside, questions answered. Palliative consulted and plan for family meeting today when Ayden overton arrives. I participated in the direct delivery [...] Ordered 06/20/23 0500 High Flow Nasal Cannula [[id number]] RT Continuous Discontinue References: Adult Specialty O2 Devices Adult Respiratory Care Consult 06/20/23 0212 Resp Care Orders Start Ordered 06/20/23 0400 Airway Clearance Therapy [[id number]] EVERY 4 HOURS Discontinue Reschedule Comments: Or cough assist 06/20/23 0140 06/20/23 0400 Airway Clearance Therapy [[id number]] EVERY 4 HOURS Discontinue Reschedule 06/20/23 0204 Unscheduled Non-invasive Ventilation [[id number]] PRN Discontinue 06/19/23 1635 Unscheduled Airway Clearance Therapy [[id number]] PRN Discontinue Protocol Scoring: Bronchodilator/Inhalation Therapy Frequency [...] titration of respiratory support as indicated. ALAN ROSENTHAL RT 06/20/23 * John Vallejo - 06/19/2023 1551 EDT CM Note TC with patients henrietta Alcantara who is on her way back to [place] from [place] and is planning on being on site [...] she was afraid of going to a correction. JOZEF has made the MD team aware of this development. CM will meet with Leander and carey tomorrow when they are here on site. [facility] John Vallejo SQL PROGRAMMER ANALYST * Deepthi Mujica RT - 06/19/2023 1531 EDT Respiratory Consult/Progress [...] Fani Paul - 06/19/2023 1400 EDT [facility] Spiritual Care Note Re: Della Browning : 1970, AGE: 52 y.o. ROOM: OR/[facility] OR Spirituality: None BACKGROUND Request for drag down support from nurse ASSESSMENT Holden is critically [...] prayer and family support CARE PLAN Continued drag down support RECOMMENDATIONS None TIME STAMP: 15 minutes Thank you for the opportunity to provide for this patient's/family's spiritual needs. FANI PAUL, [facility] Pomology Teacher/Senior Civil Engineer * John Vallejo - 06/19/2023 1210 EDT Initial Case Management/Social Work Assessment and Discharge Plan/Readmission Risk Assessment REASON FOR ADMISSION: Necrotizing fasciitis ([facility]) Patient understands reason for admission: PATIENT INFO VERIFIED: PCP not verified Type of housing (single family, condo, apartment, assisted, single room occupancy, [facility] funded hotel room, group custodial) - apartment Who does the patient live with? Does the patient have access to their own bedroom/bathroom/kitchen - or is it shared with others? shared Name of housing complex (ex [place], [facility], etc)- n/a Housing Authority/Managing Organization - n/a Community Care Providers (classification case manager, [facility] nurse, etc) name and contact information- n/a [...] Family member(s), Children, Friends / neighbors Is 17/09 care available? No ADVANCED DIRECTIVES, POA &/or [...] discharged to: TBD pending clinnical course. CULTURAL, PENTECOSTALISM and/or LANGUAGE factors affecting health care/discharge planning: [...] SBIRT: Unable to assess-SASQ: (S) Other (Comment) (patientiwsigifredo pollardwn ETOH Hx but unable to partisipate inacreening [...] eventual DC planning. Hotel assist offered to [place] but was declined. JOHN VALLEJO 06/19/2023 12:10 [...] Not assessed (06/14/23 1520) Muscle Mass Assessment [place] Region: Well-nourished (06/14/23 1520) Clavicle Region: Well-nourished [...] No results found for: CRP, LABALBU, PALBS, [id number] Estimated Nutrition Needs: Using 86.2 kg MSJ [...] and perative) in the setting of recent DE and elevated potassium. Goal tube feeding: Promote [...] feeding tolerance,labs and changes in medical condition. Asheligh Stout RD, CD (Call PAS or use [employer] (Op[employer]) to page RD covering this unit) * [...] 180 Out: 95 [Urine:95] 24 hours: 06/17 699 - 06/18 0659 In: 899.8 [P.O.:620] Out: [...] above interpretation and agree with the findings. [id number] XR CHEST PORTABLE LINE PLACEMENT Result Date: 06/18/2023 Right internal jugular temporary pacemaker wire lead in right ventricle. Dense left lower lobe atelectasis. Probable bilateral pleural effusions. [id number] CT CHEST WO CONTRAST Result Date: 06/18/2023 [...] above interpretation and agree with the findings. [id number] XR CHEST PORTABLE 1 VIEW Result Date: 06/18/2023 Interval extubation and removal of NG tube. Transvenous pacemaker wire tip in right ventricular apex. Interval development of left lower lobe atelectasis. Probable developing right lower lobe atelectasis. [id number] XR CHEST PORTABLE LINE PLACEMENT Result Date: 06/17/2023 Slight retraction of pacemaker lead tip, now projecting just beyond tricuspid valve within the right ventricle. ET tube and NG tube as seen previously. Dense left lower lobe atelectasis and probable subsegmental atelectasis at the right lung base. [id number] XR CHEST PORTABLE LINE PLACEMENT Result Date: 06/16/2023 Lines and tubes as described. Improving left lower lobe atelectasis. [id number] XR CHEST PORTABLE LINE PLACEMENT Result Date: 06/16/2023 Improving left lower lobe atelectasis. Endotracheal tube in the midthoracic trachea. Apparent kink of the proximal portion of the subclavian catheter which is likely projectional. [id number] XR CHEST PORTABLE 1 VIEW Result Date: [...] above interpretation and agree with the findings. [id number] XR FEEDING TUBE PLACEMENT Result Date: 06/15/2023 [...] view is needed, formal films are recommended. [id number] Labs: CBC: Recent Labs 06/17/23 0406 06/17/23 [...] Lovenox DVT ppx ID: [facility] cultures with 1/ bottles growing gram positive cocci in anaerobic [...] Vuong catheter indicated Communication: Updates: Family updated today;land surveying survey worker involved Interdisciplinary Items: Patient Eligible For Transfer: No Daily Goals: To OR today, family coming in Stefania Jennings MD Anesthesiology PGY2 06/19/2023 11:04 SICU pager [phone] Attestation: I performed or was present during [...] * John Vallejo - 06/19/2023 0933 EDT JOZEF Note JOZEF received request for assistance contacting family member for consenting info. JOZEF attempted calling the patients henrietta Alcantara and got no answer. From chart review she is en rout to the hospital from [place] and does not have contact info for the patients Dtr. Jozef called Lezama the patients SO who was already on his way in from [facility] via ride from a friend. There is concern he is intoxicated and has a long Hx of ETOH UD. Carey is unable to navigate his cell phone to retrieve the contact info for Renetta the patients Dtr. Unclear if the the patient and Renetta are in regular contact. hopes to assist Carey when here in retrieving Renetta's phone number. [facility] John Vallejo SQL PROGRAMMER ANALYST * Tai Azar MD - 06/19/2023 0649 [...] T2DM who presented as a transfer from [facility] on 06/12 with necrotizing fasciitis. S/p [...] AZAR MD 06/19/2023 6:49 PGY3 ACS pager #[phone] * Claus Gillespie RN - 06/19/2023 8831 EDT Pt. Henrietta Leander, called in from [place] via telephone number [phone]. Leander stated that she has not been updated on Holden's care since 06/11 or 06/12. She affirmed that she has not been able to reach Lezama, patient's significant other, and finally was able to this morning, prompting her call into this unit. Leander is upset to learn of Holden's current status and inability to connect with Carey previously. She confirmed that Holden is very unhealthy at home and hasn't taken care of herself in years. She also stated that Carey is a terrible alcoholic and that we would only be able to reach him in a coherant state early in the morning. Leander states that Della has a child or children that she is estranged with;the name Renetta was mentioned as daughter. Leander does not have their contact, but affirms that Lezama does. Leander stated thatshe would be available for the team to [...] Patient weaned off HFNC to 3L NC. 1899 - Assumed care of patient on 3L. Patient sleeping comfortably earlier in shift and VPEP treatment deferred. RR while asleep is in the high teens. 2124 - Patient awake now and tolerated VPEP [...] Damon DPT - 06/18/2023 1341 EDT [facility] Rehabilitation Therapy Acute Therapy [facility] Physical Therapy Contact Note Date of Service: [...] T2DM who presented as a transfer from [facility] on 06/12 with necrotizing fasciitis. S/p [...] TAI AZAR MD 06/18/2023 10:26 ACS pager #[phone] Associated attestation - Efraín Rueda MD - 06/18/2023 1156 EDT Attending attestation statement: I saw and examined the patient and agree with the findings and plans as documented. OR yesterday with additional skin debridement and a perirectal collection washout. RTOR Tomorrow for dressing change, may be able to start to primarily close portions of wound. Darien Rueda MD Acute Care Surgery Pager #[phone] * Deepthi Mujica, RT - 06/18/2023 0820 EDT Respiratory Consult/Progress [...] 1U PRBCs given pre-op (prophylactic) Extubated to [facility] Acute chest pain at [place], EKG unremarkable. Got IV Dilaudid 0.5 mg [...] Correlate with physical exam. Follow-up with breast [facility] center is recommended if these findings are not felt to be acute. I have personally reviewed the images and the above interpretation and agree with the findings. [id number] XR CHEST PORTABLE 1 VIEW Result Date: 06/18/2023 Interval extubation and removal of NG tube. Transvenous pacemaker wire tip in right ventricular apex. Interval development of left lower lobe atelectasis. Probable developing right lower lobe atelectasis. [id number] XR CHEST PORTABLE LINE PLACEMENT Result Date: 06/17/2023 Slight retraction of pacemaker lead tip, now projecting just beyond tricuspid valve within the right ventricle. ET tube and NG tube as seen previously. Dense left lower lobe atelectasis and probable subsegmental atelectasis at the right lung base. [id number] XR CHEST PORTABLE LINE PLACEMENT Result Date: 06/16/2023 Lines and tubes as described. Improving left lower lobe atelectasis. [id number] XR CHEST PORTABLE LINE PLACEMENT Result Date: 06/16/2023 Improving left lower lobe atelectasis. Endotracheal tube in the midthoracic trachea. Apparent kink of the proximal portion of the subclavian catheter which is likely projectional. [id number] XR CHEST PORTABLE 1 VIEW Result Date: [...] above interpretation and agree with the findings. [id number] XR FEEDING TUBE PLACEMENT Result Date: 06/15/2023 [...] view is needed, formal films are recommended. [id number] Labs: CBC: Recent Labs 06/16/23 0457 06/16/23 [...] results for input(s): PHISTAT, PCOISTAT, POISTAT, POCTCO2, T9PIDQJV, POCFIO2 in the last 72 hours. Cardiac [...] Emergency Medicine Resident, PGY1 SICU House Staff #[phone] (Service Pager) Attestation: I performed or was [...] following concerns for respiratory failure. Patient c/o 10 of chest pain, tachypneic and shallow breathing. [...] days: 1 RT KALIN 06/17/23 * Ashleigh Stout RD - 06/17/2023 1103 EDT Nutrition Assessment Note: Reassessment Admit Date: 06/13/2023 23:23 BACKGROUND DATA Clinical Course Since Last RD Visit: Per 's note today: 52 y.o. female with a history of HTN and T2DM who presented as a transfer from [facility] on 06/12 with necrotizing fasciitis. S/p [...] Not assessed (06/14/23 1520) Muscle Mass Assessment Mandaen Region: Well-nourished (06/14/23 1520) Clavicle Region: Well-nourished [...] No results found for: CRP, LABALBU, PALBS, [id number] Estimated Nutrition Needs: Using 86.2 kg PSU [...] calorie and protein needs. Provide supplemental vitamin Physical Therapy Aid meet needs for healing. Pt. Also in [...] Stout RD, CD (Call PAS or use [employer] (Op[employer]) to page RD covering this unit) * Tai Azar MD - 06/17/2023 0919 EDT Surgery Progress Note Service Date: 06/17/2023 [...] T2DM who presented as a transfer from [facility] on 06/12 with necrotizing fasciitis. S/p [...] TAI AZAR MD 06/17/2023 9:40 ACS pager #[phone] * Deepthi Mujica, RT - 06/17/2023 0402 EDT Respiratory Progress Note Indications for Respiratory [...] started for pain 1/4 blood cultures from [facility] growing gram postive cocci in anaerobic bottle on the , nogrowth yet on plate over 2 days Subjective: Intubated and sedated, opens eyes to voice Objective: Temp: [36.6 ??C (97.8 ??F)-36.9 ??C (98.5 ??F)] , Heart Rate: [70 BPM-91 BPM] , Resp: [11-23] , BP:(97-162)/(49-99) , SpO2: [92 %-100 %] I/O: Current Shift: 06/16 07 - 06/16 1459 In: 580.9 [I.V.:92.9] Out: 1335 [Urine:385; Drains:950] 24 hours: 06/15 0700 - 06/16 0659 In: 1982.6 [I.V.:659.6] Out: [...] subsegmental atelectasis at the right lung base. [id number] XR CHEST PORTABLE LINE PLACEMENT Result Date: 06/16/2023 Lines and tubes as described. Improving left lower lobe atelectasis. [id number] XR CHEST PORTABLE LINE PLACEMENT Result Date: 06/16/2023 Improving left lower lobe atelectasis. Endotracheal tube in the midthoracic trachea. Apparent kink of the proximal portion of the subclavian catheter which is likely projectional. [id number] XR CHEST PORTABLE 1 VIEW Result Date: [...] above interpretation and agree with the findings. [id number] XR FEEDING TUBE PLACEMENT Result Date: 06/15/2023 [...] view is needed, formal films are recommended. [id number] Labs: CBC: Recent Labs 06/15/23 1740 06/16/23 [...] results for input(s): PHISTAT, PCOISTAT, POISTAT, POCTCO2, Q0QDMOXY, POCFIO2 in the last 72 hours. Cardiac [...] Emergency Medicine Resident, PGY1 SICU House Staff #[phone] (Service Pager) Attestation: I performed or was [...] Moo Monique MD 06/17/2023 13:00 * Jona Ocampo RT - 06/17/2023 0425 EDT Respiratory Progress [...] white clear secretions. AM VBG done results 7. -6 Wean held this AM plan for pt to OR today. Response/Results Weaning and Toleration of treatments; Will continue to follow RT RBAYDON 06/17/23 * Danya Tinoco RN - 06/16/2023 9631 EDT Data: Pt admitted 06/12 after debridement [...] 17:35 * Chato Patel MD - 06/16/2023 0981 EDT Surgery Progress Note Service Date: 06/16/2023 [...] T2DM who presented as a transfer from [facility] on 06/12 with necrotizing fasciitis. S/p debridement x2 at OSH and s/p debridement at [facility] on 06/14.Post-operative bradycardic arrest with ROSC after 2 rounds CPP (cardiology suspect 2/2 third degreeHB from manipulation of ETT). Plan -Appreciate SICU care -Continue Vanc/Clinda/Meropenem -potential debridement today (if stable) otherwise, plan for tomorrow -will perform dressing change CHATO PATEL MD 06/16/2023 9:47 * Teresita Alegre, RT - 06/16/2023 0901 EDT Respiratory Endotracheal [...] neg Prn zyprexa added for agitation [place] removed Central chest pain in morning, EKG and trop obtained Subjective: Intubated and sedated. Objective: Temp: [36.5 ??C (97.7 ??F)-36.9 ??C (98.4 ??F)] , Heart Rate: [0 BPM-109 BPM] , Resp: [0-52] , BP: (69-167)/(33-112) , SpO2: [64 %-100 %] I/O: Current Shift: 06/15 0700 - 06/15 1459 In: 112.2 [I.V.:62.2] Out: 400 [Urine:300] 24 hours: 06/14 0700 - 06/15 0659 In: 2209.1 [I.V.:909.1] Out: [...] as described. Improving left lower lobe atelectasis. [id number] XR CHEST PORTABLE LINE PLACEMENT Result Date: 06/16/2023 Improving left lower lobe atelectasis. Endotracheal tube in the midthoracic trachea. Apparent kink of the proximal portion of the subclavian catheter which is likely projectional. [id number] XR CHEST PORTABLE 1 VIEW Result Date: [...] above interpretation and agree with the findings. [id number] XR FEEDING TUBE PLACEMENT Result Date: 06/15/2023 [...] view is needed, formal films are recommended. [id number] Labs: CBC: Recent Labs 06/15/23 0510 06/15/23 [...] results for input(s): PHISTAT, PCOISTAT, POISTAT, POCTCO2, S7PVGDKN, POCFIO2 in the last 72 hours. Cardiac [...] REZA BRITO MD 06/16/2023 11:16 SICU Housestaff #[phone] (Service Pager) Associated attestation - Chato Serrano [...] SUBCUTANEOUS TISSUE (N/A) Principal Problem: Necrotizing fasciitis (HCC-CMS) Active Problems: Necrotizing soft tissue infection Cardiopulmonary arrest with successful resuscitation (HCC-CMS) Type 2 diabetes mellitus I have seen [...] Critical Care Medicine 06/16/2023 11:41 * Omi Thomas RN - 06/16/2023 0802 EDT Images from the original note were not included. Code Blue called. * Teresita Mcneal, PT - 06/16/2023 0618 EDT [facility] Rehabilitation Therapy Acute Therapy [facility] [place] Physical Therapy Contact Note Date of Service: [...] Orders: Continuous RT Orders Ordered Non-invasive Ventilation [[id number]] RT Continuous Discontinue References: Noninvasive Mechanical Ventilation (NIV) Adult Respiratory Care Consult Question Answer Comment Type: BiPAP Inspiratory Pressure 12 Expiratory Pressure 8 06/15/23 1806 Resp Care Orders Ordered Respiratory Care Evaluation Only [[id number]] EVERY 4 HOURS Discontinue Reschedule 06/15/23 0924 High Flow Nasal Cannula [[id number]] PRN Discontinue Action/Events Respiratory events; 2006: ABG obtained on BIPAP 12/8 30% (7.27/40/70/19/91%/-8). Titration of FiO2 to 40% Overall good tolerance of above BIPAP settings overnight. Brief trial on NC per patient request forbreak from BIPAP. Given trending tachypnea while on NC, patient placed back on BIPAP with good tolerance. Response/Results Weaning and Toleration of treatments; Continued titration of respiratory support as indicated. ALAN ROSENTHAL RT 06/16/23 * Abigail Heredia - 06/15/2023 1607 EDT SOCIAL WORK CASE MANAGEMENT NOTE: Reached out by REAL ESTATE REPRESENTATIVE Adali to assist finding pt's family contact as there was no family memberlisted in face sheet. SHADE JACOBS reached out to [facility] and inquired if they had demographics information they could share. Carey Victor at [phone] (partner) information provided. Added to face sheet and updated REAL ESTATE REPRESENTATIVE. Johana Heredia LMSW [employer] Weekend CM * Teresita Alegre RT - 06/15/2023 0962 EDT Respiratory Extubation Note Pre-procedure - The [...] HFNC weaned at 1600 to nasal cannula. 1740 ABG 7.22/50/70/22. MD Jennings notified. Placed on BIPAP 02/01 x 16 +40% Plan for return to [...] T2DM who presented as a transfer from [facility] on 06/12 with necrotizing fasciitis. S/p debridement x2 at OSH and s/p debridement at [facility] on 06/14.Post-operative bradycardic arrest with ROSC after 2 rounds CPP (cardiology suspect 2/2 third degreeHB from manipulation of ETT). Plan Appreciate SICU care Continue Vanc/Clinda/Meropenem. ACS will call [facility] today to obtain OR cultures in order tonarrow abx OR for second look/re-debridement 06/15. Booked & serial consent done Agree with cardiology consultation for cardiopulmonary arrest DANA MINER MD 06/15/2023 9:08 Associated attestation - Jorge Ba MD - 06/15/2023 9787 EDT Images from the original note were [...] Jorge Ba MD Acute Care Surgery Pager: [phone] * Carlos Jennings, - 06/15/2023 0847 EDT SICU Daily Progress Note Admit Date: [...] [83 %-100 %] I/O: Current Shift: 06/14 07 - 06/14 1459 In: 151.3 [I.V.:151.3] Out: [...] results for input(s): PHISTAT, PCOISTAT, POISTAT, POCTCO2, X8LYBHAZ, POCFIO2 in the last 72 hours. Cardiac [...] Goals: extubate, observe wound, electolyte replentishment CARLOS DO YI 06/15/2023 08:51 SICU Housestaff #[phone] (Service Pager) Associated attestation - Chato Serrano [...] SUBCUTANEOUS TISSUE (N/A) Principal Problem: Necrotizing fasciitis (HCC-CMS) Active Problems: Necrotizing soft tissue infection Cardiopulmonary arrest with successful resuscitation (HCC-CMS) Type 2 diabetes mellitus I have seen [...] Critical Care Medicine 06/15/2023 10:13 * Sagar Rivas RPH - 06/15/2023 0552 EDT Pharmacy Note: Vancomycin [...] Orders (From admission, onward) Ordered Mechanical Ventilation-Invasive [[id number]] RT Continuous Discontinue References: ARDS/ALI Protocol Post [...] transitioned to 50%, PEEP to 10 cmH2O. RT CONSTANCE 06/15/23 * Moo Monique MD - 06/15/2023 [...] mins Moo Monique MD * Gardenia Redmond RPH - 06/14/2023 1615 EDT Pharmacy Note: Vancomycin [...] renal function, CBC, In/Out, Tm. GARDENIA REDMOND RPH Secure chat * Ashleigh Stout RD - 06/14/2023 1514 EDT Nutrition Assessment Note: Initial Visit Reason for Visit: Identified at risk due to skin integrity Admit Date: 06/13/2023 23:[address] Patel's note today: 52 y.o. female with a history of HTN and T2DM who presented as a transfer from [facility] on 06/13/23 in [facility] with necrotizing fasciitis. 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 Awake, [...] Well-nourished (06/14/23 1520) Midaxillary Line: Not assessed (06/14/231519) Muscle Mass Assessment Mandaen Region: Well-nourished (06/14/23 1520) Clavicle Region: Well-nourished (06/14/23 1520) Shoulder/Acromion/Clavicle Region: Well-nourished (06/14/23 152) Scapula Region: Not assessed (06/14/23 152) Hand Region: Not assessed (06/14/23 152) Thigh/Patellar Region: Not assessed (06/14/231519) Calf Region: Not assessed (06/14/231519) NFPE Assessment Summary of Fat Wasting: No significant evidence of wasting (06/14/231519) Summary of Muscle Wasting: No significant evidence of wasting (06/14/231519) Anthropometrics: Height: 160 cm (63) IBW: 52.4 [...] No results found for: CRP, LABALBU, PALBS, [id number] No results found for: ZINC, COPPER, SELENIUM, THIAMINE, FOLATE, [id number], METMMETHY, VITEALPH, RETINOL, VITD Estimated Nutrition Needs: 25 kcal/kg (using 69.3 kg) = 1800 kcals/day 1.5 g/kg protein (using 69.3 kg) = 104 g protein/day Estimated Nutrition Intake: 100% breakfast today ASSESSMENT: RD Malnutrition Assessment No evidence of malnutrition at this time. Elevated A1c indicates poor glycemic control prior to admission. Pt. With poor antioxidant status d/t longterm smoking Likely with vitamin D deficiency r/t [...] Stout RD, CD (Call PAS or use [employer] ([employer]) to page RD covering this unit) * [...] at bedside THONG TRAYLOR RN * Teresita Alegre, RT - 06/14/2023 1205 EDT Respiratory Consult/Progress [...] T2DM who presented as a transfer from [facility] on 06/13/23 in [facility] with necrotizing fasciitis. S/p debridement x2 at [...] Jorge Ba MD Acute Care Surgery Pager: [phone] * Le Gomez RN - 06/14/2023 0158 [...] LE GOMEZ RN 06/14/2023 1:58 * [facility]/14/[facility]23 0145 EDT Pharmacy Note: Vancomycin [...] trend, fever curve, and culture results. Timmy Murcia PharmD Pharmacist (Nights) - Emergency Medicine/Critical Care Secure Chat [phone] documented in this encounter H&P Notes * Paulette Hoover - 06/13/2023 8764 EDT Images from the original note were not included. Acute Care Surgery - Admission H&P Date: 06/13/23 CC: Necrotizing fasciitis HPI Della Browning is a 52 y.o. female with a history of HTN and T2DM [facility]. She states her pain initiall started about 1.5 weeks ago and felt like a burning sensation, similar to when she was bit by a spider many years ago. She initially tried to manage the pain at home but went to the ED as the pain and weakness progressed. She uinderwent two debridements at the OSH and was then transferred to [facility] for definitive management. 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 Name of director group sales: Katelyn Cheng RN LDAINFO BLOCK Peripheral IV [...] WITH NEW SPONGE SYSTEM Performed by: Reza Norwood PA-C ASSISTANTS: Leesa Norwood PA-C WOUND SIZE: [...] was applied. The system was connected tot [employer] on the wound vac console and the [...] was applied. The system was connected tot [employer] MEMSister on the wound vac console and the vacuum was set at 125 mmHg.The seal on the dressing was intact. Total Time with patient 60 mins * Gardenia Brewster RN - 07/04/2023 0504 EDT Ultrasound dynamic guidance was used for peripheral line insertion. Name of director group sales: Gardenia Brewster RN LDAINFO BLOCK Peripheral IV 07/04/23 050 Right;Anterior;Medial;Distal Upper Arm (Active) 07/04/23 050 Upper Arm Dressing Change Due: 07/11/23 Size (Gauge): 20 Catheter Length (Inches): 1.75 Catheter Brand: B Khoury Cover Lockscreencan Orientation: Right;Anterior;Medial;Distal Site: basilic, 0.3cm wide, 1.1cm deep approximately Inserted by: Inserted by RN;Ultrasound Guided Insertion attempts: 1 Local Anesthetic: None Skin Antisepsis: 2% Chlorhexidine with IPA Removal Reason : Post Removal Assessment/Care: Size (Gauge): Catheter Length: IV Change Due: Orientation: Criteria to continue met? (chart all reasons) Telemetry class I;Other (must comment reason) 07/04/23 050 Date Dressing Changed 07/04/23 07/04/23 050 Dressing date clearly marked on PIV site? Yes 07/04/23 050 Site Assessment Clean/Dry/Intact 07/04/23 050 Line Status Blood returned;Flushed;Capped 07/04/23 050 Dressing Status/Care Site Cleaned;Changed/New;Clean/Dry/Intact 07/04/23 050 Dressing Type Transparent 07/04/23 050 Patient response: tolerated well Patient education: at [...] applied. The system was connected tot he iwoca on the wound vac console and the [...] ACELL. * Reza Norwood PA-C - 06/28/2023 4807 EDT Images from the original note were [...] PA-C * Tai Azar MD - 06/24/2023 9488 EDT Images from the original note were [...] None Keep NG to LCWS. Page ACS #8898 for any bloody or feculent output from [...] None Keep NG to LCWS. Page ACS #8819 for any bloody or feculent output from [...] to verify the correct patient, procedure, equipment, program support specialist and site/side marked as required. Indications: Pacer [...] Emergency Medicine Resident, PGY1 SICU House Staff #[phone] (Service Pager) * Isabela Victor RN - [...] used for peripheral line insertion. Name of director group sales: Willie Tavarez RN LDAINFO BLOCK Peripheral IV [...] depth, vein size, compressibility, patency, in-plane vs. [id number], surrounding structures and post procedure available on the images, accessed via the imaging tab.) WILLIE TVAAREZ RN 06/17/2023 * Reza Brito MD - 06/16/2023 1047 EDT PROCEDURE NOTE: Central Line and transvenous pacer wire placement Procedure: Removal of right IJ and placement of Right Subclavian Central Line with transvenous pacer wire Indication: pressor requirements, bradycardia with third degree AV block breaker operator(s): Dana Miner MD Description: Patient was prepped/draped [...] MD PGY-1 Orthopedic Surgery Resident SICU Pager #[phone] 06/16/2023 10:55 Associated attestation - Chato Serrano MD - 06/16/2023 1141 EDT I have seen and evaluated this patient and I agree with the findings and plan of care documented inthe resident's note. I was present for the entire procedure. Chato Serrano MD 11:40 06/16/2023 * Reza Brito MD - 06/16/2023 0830 EDT Intubation Name: Della Browning :: Age: [...] MD PGY-1 Orthopedic Surgery Resident SICU Pager [phone] 06/16/2023 8:45AM Associated attestation - Chato Serrano [...] Line Operators: Number Of Operators: 2 First Tow Truck Operator's Name: Moo Monique First Tow Truck Operator's Title: Attending Internal Affairs Investigator's Name: Ayden Alexander Internal Affairs Investigator's Title: Resident Unless otherwise noted, there were no complications, no blood loss and no cultures obtained. AYDEN ALEXANDER MD 06/15/2023 1:43 * Thong Traylor RN - 06/14/2023 1442 EDT Ultrasound dynamic guidance was used for peripheral line insertion. Name of director group sales: Thong Traylor LDAINFO BLOCK Peripheral IV 06/14/23 [...] 06/14/23 1441 Date Dressing Changed 06/14/23 06/14/23 1441 Site Assessment Clean/Dry/Intact 06/14/23 1441 Line Status Blood returned;Flushed 06/14/23 1441 Dressing Status/Care Changed/New;Site Cleaned 06/14/23 1441 Dressing Type Transparent 06/14/23 1441 Patient response: tolerated well Patient education: completed at bedside Additional study information (vein depth, vein size, compressibility, patency, in-plane vs. ezc-[id number], surrounding structures and post procedure available on the images, accessed via the imaging tab.) THONG TRAYLOR RN 06/14/2023 * Le Gomez RN - 06/14/2023 0158 EDT Ultrasound dynamic guidance was used for peripheral line insertion. Name of director group sales: Le Gomez RN LDAINFO BLOCK Peripheral IV 06/14/23156 Anterior;Left [...] for hypoglycemic rescue medication. Maite Hua RN [facility] Diabetes Nurse Clinician Contact via secure chat [...] stores 750 test results. Refer to the Steam Drier Operator's Booklet for acquiring control solution from your pharmacy see page 68, 74, 76 for more details. A new feature of this meter provides the ColorSure Dynamic Range Indicator and Blood Sugar [place] Messages along with other feature you can explore in your detector car operator's manual. Insulin Pen Injection six step method [...] just prior to your meal. * Ashleigh Stout RD - 07/15/2023 1204 EDTAssociated Order(s): CONSULT NUTRITION [...] Not assessed (06/14/23 1520) Muscle Mass Assessment Mandaen Region: Well-nourished (06/14/23 1520) Clavicle Region: Well-nourished [...] metroNIDAZOLE (FLAGYL) tablet 500 mg oral Q8H fpzkjanx-zcl-kktc fum-folic ac 7.5 mg iron-400 mcg tablet [...] Stout RD, CD (Call PAS or use [employer] ([employer]) to page RD covering this unit) * Maite Hua RN - 07/15/2023 3605 EDTAssociated Order(s): CONSULT DIABETES EDUCATION Diabetes Nurse [...] ready to accept education. Maite Hua RN [facility] Diabetes Nurse Clinician Contact via secure chat or page (Micheline Hua) * Nabila English, MYRNA - 07/12/2023 1523 EDTAssociated Order(s): CONSULT ENDOCRINOLOGY [...] Consistent Carb) Social Information: Single, Lives in [facility], has male partner. 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 Unsure of family history [...] metroNIDAZOLE (FLAGYL) tablet 500 mg oral Q8H ljnanbli-roz-iohy fum-folic ac 7.5 mg iron-400 mcg tablet [...] HTN and Dm2, who presented originally to [facility] as a transfer from [facility] on 06/13/23 [...] [84 %-98 %] I/O: Current Shift: 07/02 2300 - 07/03 0659 In: - Out: 775 [Urine:775] 24 hrs: 07/01 2300 - 07/02 2258 In: 1590 [P.O.:1340] Out: 3920 [Urine:3750; Drains:170] [...] results for input(s): PHISTAT, PCOISTAT, POISTAT, POCTCO2, Q1TSUDXV, POCFIO2 in the last 72 hours.Coags: No [...] T2DM who [facility] Hospital on [facility] with necrotizing fasciitis. S/p [...] Shift: No intake/output data recorded. 24 hrs: 06/230 - 06/249 In: 440 Out: 2350 [Urine:2350] OR totals: [...] results for input(s): PHISTAT, PCOISTAT, POISTAT, POCTCO2, Y5GUDBWK, POCFIO2 in the last 72 hours.Coags: No results for input(s): PROTIME, INR, PTT in the last 72 hours. Assessment: 52 y.o. female with a history of HTN and T2DM who presented as a transfer from [facility] on 06/12 with necrotizing fasciitis. S/p [...] VALENTINE MD PhD 06/25/2023 23:22 SICU Housestaff [phone] (Service Pager) Associated attestation - Kyle Mars [...] stabilizes, aggressive pulm toilet Kyle Mars MD [id number] * Lazaro Longoria NP - 06/20/2023 8555 EDT Inpatient Palliative Care Consultation Date of Service: 06/20/2023 Referring Service: Surgical ICU Site of Visit: Intensive Care Unit Reason for Referral: Goals of care Della Browning is a 52-year-old woman with a history of alcohol use disorder, hypertension, and type 2 diabetes who presented to [facility] on 06/12 as a transfer from [facility] in [place] after being treated there for necrotizing fasciitis [...] Leander, Dr Bustamante, Dr Brito, John Vallejo , pr Narrative: We shared with Carey and Leander [...] she would ultimately be placed in a correction). In light of the fact that Holden's current path will certainly require her to be in a correction for some period of time (and very [...] be home. At the same time, however, Lezama stated that he cannot give up on her, and believes that shehas the willpower and strength required to recover from this. It is worth noting that Holden's niece Leander was an invaluable support to Carey throughout the conversation today, and I would recommend that she be included in any future [facility] conversations. Burdensome Symptoms Pain: Unable to assess [...] Lazaro Longoria NP 06/20/2023 14:25 * Brooke Rinaldi, LORENA - 06/16/2023 1433 EDTAssociated Order(s): CONSULT NUTRITION Brief Nutrition Note 52 y.o. female with a history of HTN and T2DM who presented as a transfer from [facility] on 06/12 with necrotizing fasciitis. S/p [...] RINALDI RD, CD (Call PAS or use Opentopic Web (OpDemand) to page RD covering this unit) * [...] Interval events Extubated Recurrent CHB/bradycardic arrest Re-intubated PMH PSH No past medical history on [...] 91/63 68 BPM 14 100 % -- 06/16/23 0630 95/63 69 BPM 12 100 % [...] Mobitz 1 (Wenkebach) 0036 Progression to CHB Scientology of NSR- on 3mcg/min norepinephrine Associated attestation - Saran Bekcham MD - 06/16/20232033 EDT I saw and [...] call with any questions. Foreign Pastor MD Cutting Department Supervisor HPI: 52yoF with PMH HTN, DM, who presented as a transfer on 06/13/23 for treatment of necrotizing fasciitis. Per chart review, patient had reported roughly 1/5 weeks of worsening pain in R gluteal area. When the pain became intolerable, she presented to [facility] where two attempts at debridement were made, but ultimately it was felt patient required transfer to [facility] for definitive treatment. She has been managed in SICU with Clinda/Merrem/Vanc. Razo at ~0030 patient suffered a bradycardic arrest [...] Heart Rate Resp Temp SpO2 O2 Device 06/15/23 0135 130/69 -- 89 BPM 10 37.1 ??C (98.7 ??F) 100 % -- 06/15/23 0130 135/65 -- 89 BPM 12 -- 100 % -- 06/15/23 0128 136/66 -- 90 BPM 13 -- 100 % -- 06/15/23 0126 137/66 -- 90 BPM (!) 2 -- 100 % -- 06/15/23 0124 140/66 -- 91 BPM 17 -- 100 % -- 06/15/23 0122 138/67 -- 92 BPM 16 -- 100 [...] 97 BPM 25 -- 93 % -- 06/15/23 0108 113/88 -- 98 BPM 19 -- 93 % -- 06/15/23 0105 (!) 149/139 -- 94 BPM 19 -- 94 % -- 06/15/23 0102 105/62 -- 93 BPM 22 -- 93 [...] 36.6 ??C (97.9 ??F) 100 % Intubated 06/14/232099 123/74 -- 83 BPM 16 -- 97 [...] 1st deg avb, then to Mobitz 1 (Edilberto) 0036 Progression to CHB Scientology of NSR- on 3mcg/min norepinephrine ADDENDUM: Patient [...] documented in the resident's/fellow's note. * Carlos Jennings, - 06/15/2023 0002 EDT SICU Admit Note Admit Date: 06/13/2023 Primary team: ACS CC: NSTI LLE Procedures: Debridement HPI: Della Browning is a 52 y.o. female with history s/f HTN, T2DM (diet controlled) admitted forNSTI of the right gluteal region as a transfer from [facility]. Stated on presentation that she had symptoms starting about a week and a half ago with a burning sensation that was similar to a previous spider bite. She stated that due to progressive pain and weakness she made the decision to present to the ED. She is s/p debridement x2 as the outside hospital. She is now POD#0 s/p debridement at [facility]. She arrives to SICU intubated, sedate and [...] [83 %-100 %] I/O: Current Shift: 06/13 2299 - 06/14 0659 In: 1678 [I.V.:1239] Out: [...] results for input(s): PHISTAT, PCOISTAT, POISTAT, POCTCO2, G4LLUUTL, POCFIO2 in the last 72 hours.Coags: Recent [...] while intubated Code status: Full Code CARLOS JENNINGS DO 06/15/2023 5:52 SICU Housestaff [phone] (Service Pager) documented in this encounter OR [...] 162 cm2 grafted. SURGEON: Moo Monique MD SEPTIC TANK SERVICER: Isabell Nolasco MD ANESTHESIA: General endotracheal anesthesia. [...] strips of skin were harvested using the Scott dermatome to a 0.1 inch thickness. The [...] retained. Moo Monique MD / RA/EC Confirmation: [id number] Dictation ID: [id number] cc: * OR Surgeon - Zahira Veras MD - 07/10/2023 1659 EDT WOUND VAC I&D PERINEUM (R) Operative Note Date: 07/10/2023 Location: [facility] OR Name: Della Browning, : 1970, Diagnosis [...] Buttock (Active) [REMOVED] Non-Surgical Airway (Removed) Staff: Photoresist Contact Printer: Liat Denise RN Scrub Person: Ryan Hampton Patient Critical Care Nurse: Adrian Dumont Indications: Della Browning is an [...] stable Specimens:None Implants: Wound vac, xeroform ZAHIRA VREAS MD 07/16/2023 6:19 Surgery PGY1 * OR Surgeon - Zahira Veras MD - 06/26/2023 2330 EDT Images from the original note were not included. debridement of perianal wound, wound vac placement Operative Note Date: 06/26/2023 Location: [facility] OR Name: Della Browning, : 1970, Diagnosis [...] underwent serial debridement. She was transferred to [facility] for further care and was initially anemic on arrival with ongoing bleeding from her surgical siterequiring transfusion. She was last taken to the OR at [facility] on 06/18 for serial debridement where largely [...] underwent serial debridement. She was transferred to [facility] for further care and was initially anemic on arrival with ongoing bleeding from her surgical siterequiring transfusion. She was taken to the OR at [facility] on 06/14 for hemostasis and was found [...] Surgeon - Kyle Mars MD - 06/17/2023 8660 EDT Images from the original note were [...] underwent serial debridement. She was transferred to [facility] for further care and was initially anemic on arrival with ongoing bleeding from her surgical siterequiring transfusion. She was taken to the OR at [facility] on 06/14 for hemostasis and was found [...] Surgeon - Moo Monique MD - 06/14/2023 2465 EDT OPERATIVE REPORT SERVICE DATE: 06/14/23 PREOPERATIVE [...] there twice. She was subsequently transferred to [facility] for further management. She was anemicon arrival [...] with perirectal fascia. Final wound dimensions measuring [id number] cm. NARRATIVE: The patient was identified in [...] 3 mm and was repaired primarily using [id number] 3-0 silk suture. The surrounding perirectal fascia [...] Care - Stan Leigh RN - 08/22/2023 0453 EDT Problem: Daily Care Plan Goals Goal: Care Plan Documentation Flowsheets (Taken 08/21/2023 1910) Area of Focus: Sleep Goal This Shift: rest Note: Data: HD#70. Pt admitted with nec fas s/p multiple I&D's and skin graft. Dressings to graft anddonor site CDI. Pt reports pain 8-9/10. Independently walking to BR with walker. Action: Meds given per MAR. PRN [...] reports 7-8/10. Action: Meds are administered per APR. Walks to the bathroom to void. Hourly rounds and checks continue. Response: Pt worked with OT. Pt also working with dietetic nurse for more insulin education for discharge. PARISA BOWMAN RN 08/21/2023 16:30 * Diabetes Education - Maite Hua RN - 08/21/2023 6877 EDT Diabetes Nurse Clinician Education Note: Assessment/Education: f/u with Holden today to check on Dexcom status. She calibrated this morning with Endocrinology TABLET COATER and that was helpful. Reviewed insulin regimen [...] be ordered through pharmacy as well. Maite Hua, KIESHA [facility] Diabetes Nurse Clinician Contact via secure chat [...] - [facility] , Remind provider to place Home Health Consult order? Yes (Long Term/ PT/ OT/ SW) Nedra Armendariz RN CM [facility] Department (Available via [employer]xia) * Plan of Care - Stan Leigh RN - 08/21/2023 0555 EDT Problem: Daily Care Plan Goals Goal: Care Plan Documentation Flowsheets (Taken 08/20/2023 2300) Area of Focus: Pain/ Comfort Goal This Shift: adequate pain control Note: Data: HD#69. Pt admitted with nec fas s/p multiple I&D's and skin graft. Receiving wound care treatment to donor and graft site. Dressings CDI. Pt reports pain 8-9/10. Independently walking to BRwith walker. Action: Meds given per APR. PRN [...] support while she went through prompts on buffing wheel presser to obtain Dexcom CGM education and initiate [...] of a Dexcom G7 Reviewed use of buffing wheel presser and completed buffing wheel presser set-up Reviewed site preparation Reviewed sensor insertion [...] for hypoglycemic rescue medication. Maite Hua RN [facility] Diabetes Nurse Clinician Contact via secure chat or page (Micheline Hua) * Plan of Care - Stan Leigh RN - 08/20/2023 7463 EDT Problem: Daily Care Plan Goals Goal: Care Plan Documentation Flowsheets (Taken 08/19/2023 1900) Area of Focus: Sleep Goal This Shift: rest Note: Data: HD#68. Pt admitted with nec fas s/p multiple I&D's and skin graft. Receiving wound care treatment to donor and graft site. Pt reports pain 8-9/10. Independently using commode and walking toBR. Action: Meds given per APR. Dressings changed. Vitals monitored. Hourly checked. Response: Pt slept well this shift with no complaints. Call marroquin within reach. STAN LEIGH RN 08/20/2023 5:22 * Diabetes Education - Maite Hua RN - 08/19/2023 1150 EDT Diabetes Nurse Clinician Education Note: Meds to beds to deliver Dexcom sensors to patients bedsidetoday and [facility] to support Della with application tomorrow. Reminder: CGM will be for patient personal use only and while in hospital, POCT FS are still required. Maite Hua RN [facility] Diabetes Nurse Clinician Contact via secure chat [...] administration under nursing supervision. Action: Medicated per APR. Response: Patient is currently resting comfortably in bed with call light within reach. ELAINE TURNER RN 08/16/2023 15:46 * Plan of Care - Ghassan Crawford RN - 08/16/2023 0353 EDT Data: Pt is HD#64. Pt is A&Ox3, Respirations even on RA.. Pt c/o 9/10 pain to right leg. Action: Dressing change/wound care on sacrum done per orders. Medications administered per APR. Encouraged activity as tolerated. Assisted pt OOB [...] for delivery early next week and this [facility] will support her to get this started prior to d/c. Recommendations: Ongoing nursing education and documentation of response. Maite Hua, KIESHA [facility] Diabetes Nurse Clinician Contact via secure chat [...] well. Still waiting for BM. Jorge A Winter 08/12/2023 13:18 * Plan of Care - Paolo Sanchez, KIESHA - 08/12/2023 0430 EDT Problem: Daily Care Plan Goals Goal: Care Plan Documentation Outcome: Ongoing Flowsheets (Taken 08/11/2023 1920) Area of Focus: Sleep Goal This Shift: Pt will sleep inbetween care Note: AOx3, VSS on RA. Voiding in bedside commode. No BM since rectal tube removal, passing gas, abdomen distended and firm. CG OOB to commode/. Rectal dressing changed overnight due to soiling. [...] Care - Alyce Allison RN - 08/10/2023 5176 EDT Problem: Daily Care Plan Goals Goal: Care Plan Documentation Flowsheets (Taken 08/10/2023 6848) Area of Focus: GI//Elimination Goal This Shift: [...] 08/10/2023 17:26 * Plan of Care - Taniya Benitez RN - 08/10/2023 0700 EDT Assumed care from 2906-7066: Data: Pt with extended hospitalization r/t multiple [...] Care - Ayden Draper RN - 08/09/2023 1598 EDT Problem: Daily Care Plan Goals Goal: [...] Plan Documentation Outcome: Ongoing Flowsheets (Taken 08/09/2023 0154) Area of Focus: Pain/ Comfort Goal This [...] Care - Ayden Draper RN - 08/08/2023 9056 EDT Problem: Daily Care Plan Goals Goal: [...] Plan Documentation Outcome: Ongoing Flowsheets (Taken 08/08/2023 012) Area of Focus: Pain/ Comfort Goal This [...] removed and replaced. Medicated for pain per mar. Response: Tolerating movement well. Pain managed with [...] Lyrica (Pregabalin), Penicillins. Action: Meds given per MAR, Q4 vitals, BG taken before meals Response: PT resting in bed, call marroquin is with in reach. Able to make needs known Reza Rodriguez 08/06/2023 13:25 * Plan of Care - David Flynn RN - 08/05/2023 2353 EDT Problem: Daily Care Plan Goals Goal: [...] Outcome: Met This Shift Flowsheets (Taken 08/03/2023 07) Area of Focus: Skin Integrity Goal This [...] HD 50 for nec fasc. Skin graft 6/5 w dressing to remain in place until [...] Care - Mini Porter RN - 2023 0559 EDT Data: Assumed care @ 1900. Necrotizing [...] Care - Le Gonsalez RN - 08/01/2023 7981 EDT Problem: Daily Care Plan Goals Goal: [...] rectal tube in place. Action: Medicated per MAR. Pt vuong clogged early afternoon w 1000cc [...] diet. A/Ox3. Gave pain medications per the MAR. Donor site on right thigh.Dressing clean, dry, and intact.Right thigh/buttocks areas wrapped. Response: Patient resting comfortably in bed with personal items and call light within reach. SCOTT ANDRADE RN 08/01/2023 7:41 Problem: Daily Care Plan Goals Goal: Care Plan Documentation 08/01/2023 0741 by Scott Andraed RN Outcome: Ongoing 08/01/2023 0559 by Scott Andrade RN Outcome: Ongoing 08/01/2023 0558 by Scott Andrade RN Outcome: Met This Shift Problem: High Fall Risk: Goal: Patient will Remain Free of Falls due to Altered Mobility 08/01/2023 0741 by Scott Andrade RN Outcome: [...] for vision loss will be supported 08/01/2023 07 by Scott Andrade RN Outcome: Ongoing 08/01/2023 0559 by Scott Andrade RN Outcome: Ongoing 08/01/2023 0558 by Scott Andrade RN Outcome: Met This Shift Problem: SKIN INTEGRITY Goal: Skin integrity will improve or be maintained 08/01/2023 07 by Scott Andrade RN Outcome: Ongoing 08/01/2023 0559 by Scott Andrade RN Outcome: Ongoing 08/01/2023 0558 by Scott Andrade RN Outcome: Met This Shift Problem: Pressure Ulcer Prevention Goal: Absence Of Pressure Ulcer 08/01/2023 07 by Scott Andrade RN Outcome: Ongoing 08/01/2023 0559 by Scott Andrade RN Outcome: Ongoing 08/01/2023 0558 by Scott Andrade RN Outcome: Met This Shift Problem: High Fall Risk: Goal: Patient will Remain Free of Falls due to Med. Side Effects 08/01/2023 0741 by Scott Andrade RN Outcome: Ongoing 08/01/2023 0559 by Scott Andrade RN Outcome: Ongoing 08/01/2023 0558 by Scott Andrade RN Outcome: Met This Shift Problem: High Fall Risk: Goal: Patient will Remain Free of Falls due to Altered Elimination 08/01/2023 0741 by Scott Andrade RN Outcome: [...] Remain Free of Falls due to Dizziness/Vertigo 08/01/2023 07 by Scott Andrade RN Outcome: Ongoing 08/01/2023 0559 by Scott Andrade RN Outcome: Ongoing 08/01/2023 0558 by Soctt Andrade RN Outcome: Met This Shift Problem: [...] be within normal limits for the patient 08/01/2023740 by Scott Andrade RN Outcome: Ongoing 08/01/2023 0559 by Scott Andrade RN Outcome: Ongoing 08/01/2023 0558 by Scott Andrade RN Outcome: Met This Shift Problem: NUTRITION Description: Patient unable to self-regulate blood glucose level Goal: Blood Glucose Control Description: Maintain plasma glucose levels within expected range. 08/01/2023 0741 by Scott Andrade RN Outcome: [...] Indication Of Glycemia Balance Is Achieved 08/01/2023 07 by Scott Andrade RN Outcome: Ongoing 08/01/2023 0559 by Scott Andrade RN Outcome: Ongoing 08/01/2023 05 by Scott Andrade RN Outcome: Met This Shift Goal: Patient's Continuum Of Care Needs Are Met 08/01/2023 07 by Scott Andrade RN Outcome: [...] coverage provided as appropriate. Action: Medicated per MAR. Response: Pt left floor for surgery at approximately 1400. Currently in PACU. ELAINE TURNER RN 07/31/2023 17:55 * Brief Op Note - Isabell Nolasco MD - 07/31/2023 1735 EDT Date: 07/31/2023 Location: [facility] OR Name: Della Browning, : 1970, Diagnosis [...] SEALANT 4ML ARTISS FORZEN DILUTED TISSEEL - [id number] Implanted [id number] Staff: Photoresist Contact Printer: Ellyn Echevarria RN Relief Photoresist Contact Printer: Odalys Morrison RN Relief Scrub: Jasmyne Hilario RN; Elaine Mcintyre Scrub Person: Paolo Penn Patient Critical Care Nurse: Alicia Guajardo Indications: Della Browning is an [...] 07/31/23 * Plan of Care - Melly Kumar, KIESHA - 07/31/2023 0522 EDT Problem: Daily Care [...] skin graft surgery tomorrow. Action: Medicated per MAR. Response: Pt is resting comfortably in bed [...] Goal: Care Plan Documentation Flowsheets (Taken 07/24/2023 9163) Area of Focus: Other Goal This Shift: [...] Sanchez RN Outcome: Ongoing Flowsheets (Taken 07/22/2023 192) Area of Focus: Pain/ Comfort Goal This Shift: Pt will report adequate pain control 07/23/2023358 by Paolo Sanchez RN Outcome: Ongoing * [...] or absorb education. D/C destination plan is [facility] once medically ready. Diabetes nurse [...] just needs the supplies. Maite Hua RN [facility] Diabetes Nurse Clinician Contact via secure chat [...] at bedside to work with pt. Gareth banksot to LLE for foot drop per PT. [...] drain wound. Action: Meds given according to APR. Dressing did not have a good seal d/t tegaderm peeling off butreinforced with MD at bedside. Very little drainage (most likely d/t poor seal). PRN ativan given at 2300 and again at 0630. Response: Patient resting in bed with call light in reach. Able to make needs known. Plan is for dressing change today by MD. DAVID FLYNN RN 07/17/2023 6:56 * Plan [...] ACHS FS, regular diet. Action: Medicated per APR. PRN ativan given for anxiety per pt request. Removed vuong and placed new 14 fr vuong. Assisted pt with maintaining rectal tube and WV area clean. WV with small leak, team aware. Pt met with life educator this morning. Response: Pt resting comfortably in [...] Documentation Outcome: Met This Shift Flowsheets (Taken 07/13/20231922 by Paolo Sanchez RN) Area of Focus: [...] Plan Documentation Outcome: Ongoing Flowsheets (Taken 07/12/2023 1915 by Paolo Sanchez, KIESHA) Area of Focus: [...] Patient rings appropriately. Call marroquin within reach. [id number]. LAMIN ROBLES RN 07/12/2023 14:01 * Plan [...] Patient rings appropriately. Call marroquin within reach. [id number]. LAMIN ROBLES RN 07/11/2023 17:41 * Plan of Care - Chrissie Mcqueen RN - 07/10/2023 1549 EDT Data: Assumed care of patient at [...] within reach, able to make needs known. HCRISSIE MCQUEEN RN 07/10/2023 15:50 Problem: Daily Care Plan Goals Goal: Care Plan Documentation Outcome: Ongoing Flowsheets (Taken 07/10/2023 0700) Area of Focus: Pain/ Comfort Goal This Shift: Patient will have pain at a tolerable level today * Brief Op Note - Zahira Veras MD - 07/10/2023 1201 EDT Date: 07/10/2023 Location: [facility] OR Name: Della Browning, : 1970, Diagnosis [...] Buttock (Active) [REMOVED] Non-Surgical Airway (Removed) Staff: Photoresist Contact Printer: Liat Denise RN Scrub Person: Ryan Hampton Patient Critical Care Nurse: Adrian Dumont Indications: Della Browning is an [...] Plan Documentation Outcome: Ongoing Flowsheets (Taken 07/08/2023 2394) Area of Focus: Skin Integrity Goal This [...] bradyarrest x2. Transfer back to [facility] from [place] [address] 07/02 for increasing o2 requirements. Patient transitioned [...] Response: Maintained 4 liters nc. Transfer to [place] [address]. ANTONIA RODRIGUEZ RN 07/05/2023 7:17 * Plan [...] recent discontinuation of pressors, would recommend holding ELECTRIC MELT OPERATOR antihypertensives and restarting when deemed appropriate Pulm: [...] Documentation Flowsheets (Taken 07/03/20231999 by Zaira High, RN) Area of Focus: Respiratory Goal This Shift: Pt will maintain O2 sat at goal or above 92 Data: Admitted to hospital 06/12 for nec fac, s/p multiple debridements and vac placement, c/b bradyarrest x2. Transfer back to [facility] from [place] [address] 07/02 @ 1900 for increasing o2 requirements. [...] Goals Goal: Care Plan Documentation Flowsheets (Taken 07/02/2023 2200) Area of Focus: Safety Goal This Shift: [...] for impulsiveness Action: Administered scheduled/PRN medications per MAR, Q2hr reposition, monitor BS, hourly rounding for [...] Goals Goal: Care Plan Documentation Flowsheets (Taken 06/29/2023 1840) Area of Focus: Pain/ Comfort Data: HD [...] Care Plan Documentation Outcome: Ongoing Flowsheets (Taken 06/28/2023 0852 by Kaity Smith) Area of Focus: Skin [...] Goal: Care Plan Documentation Flowsheets (Taken 06/28/2023 0852) Area of Focus: Skin Integrity Goal This [...] Plan Documentation Outcome: Ongoing Flowsheets (Taken 06/27/2023 0739) Area of Focus: Pain/ Comfort Goal This Shift: Adequate pain control this shift Data: Assumed care at 0700. Pt Drowsy, oriented x3. HD #14 w/ necrotizing fasciitis wound to buttocks. Last debridement last night. Rectal tube in place, Vuong in place and draining. NG tube to left nare, no feeds ordered. Q2 turns. Wound vac to LC wall suction w/ sanguinous output. 10/ pain. Action: Medication administered as ordered (see MAR). Repositioning encouraged. PO nutrition intakeencouraged. PRN Ativan given for anxiety. Q1h safety checks completed. Response: Pt continued to report pain throughout shift, improved w/ PRN pain medication. Tolerated breakfast and dinner PO. Currently resting in bed with call light in reach. TARA CASTANON RN 06/27/2023 14:44 * Plan of Care - Shreyas Hampton RN - 06/26/2023 1533 EDT Data: [...] - 06/26/2023 1120 EDT Date: 06/26/2023 Location: [facility] OR Name: Della Browning, : 1970, Diagnosis [...] Nasoduodenal 12 fr Left nostril (Removed) Staff: Photoresist Contact Printer: Brooke Rivera RN Scrub Person: Perry Flores RN Patient Critical Care Nurse: Red Morrell Indications: Della Browning is an [...] ~2245 Patient s/p rapid response on Derek Rivera d/t respiratory distress. Patient transferred to SICU [...] repositioned PRN. Response: Will continue to monitor FOELIA SALINAS RN 06/25/2023 5:32 * Plan of [...] 18:39 * Plan of Care - Davey Washington RN - 06/24/2023 0609 EDT Problem: SKIN [...] Add LDA for any identified wounds Add [place] image for any suspected PI or non surgical wounds Order wound consult if suspected PI identified If Jerson is < or = to 16, initiate Pressure Injury Prevention Bundle ([id number]). 06/23/2023 15:40 * Plan of Care - [...] Care - Reza Brito MD - 06/20/2023 8207 EDT Pacing wire removed per discussion earlier today. Tip intact. No perceived complications. Reza Brito MD Pager #[phone] 06/20/2023 22:58 * Plan of Care - Tomas Alarcon RN - 06/20/2023 1838 EDT Assumed nursing care of patient at 0700. Patient resting in bed on HFNC, resting quietly, in no apparent pain or acute respiratory distress. Patient assessed. PLAN to monitor hemodynamics, labs, I&O within parameters. Assess for pain and manage for comfort. Reposition as tolerated to enhance recovery and preserve skin integrity. Keep patient and family updated. Notify HO of changes. Henrietta Alcantara to be bedside today, to discuss plan of care 0800- SO Carey at bedside 0900- Discussion w/ Shoaib Bustamante [...] comfortably * Plan of Care - Red Norton, KIESHA - 06/20/2023 0908 EDT Assumed nursing care of patient at 0700 with nurse internal control specialist Tomas. Patient lying semi-fowlers in bed, resting [...] Monique. 1230- Family meeting with this nurse, manager statistics John, SICU Dr Bustamante, henrietta Alcantara and Carey. 1300- Palliative TABLET COATER Vicente joins family meeting. 1430- Family at [...] 1428 EDT Date: 06/13/2023 - 06/19/2023 Location: [facility] [place] Name: Della Browning, : 1970, Diagnosis [...] Orogastric 14 fr Center mouth (Removed) Staff: Photoresist Contact Printer: Tania Galindo RN Relief Photoresist Contact Printer: Jessi Cardozo, KIESHA Scrub Person: Liat Denise RN Patient Critical Care Nurse: Doretha Barth Sarah Indications: Della Browning is an 52 y.o. [...] consent at this time 1000- pts fiance [place] whom the patient lives with and pts assisted friend also at bedside 1300- Pt to OR 1500-Pt returned, pt placed on bipap and given labetalol for HTN 1530- Pts niece updated-CM discussed plan and will be present tomorrow 1530-Pt on cpap, work of breathing improved 1800-Tube feeding resumed * Plan of Care - Red Norton RN - 06/19/2023 0757 EDT Assumed nursing care of patient at 0700 with nurse internal control specialist Tomas. Patient lying left lateral recumbent in [...] Dr Monique, presented by Dr Jennings. 1105- [place], and family friend/little brother to her Jona, [...] of Care - Claus Gillespie RN - 06/17/20232057 EDT Images from the original note were [...] 1441 EDT Date: 06/13/2023 - 06/17/2023 Location: [facility] [place] Name: Della Browning, : 1970, Diagnosis [...] Nasogastric 16 fr Left nostril (Removed) Staff: Photoresist Contact Printer: Chrissie Olivarez RN Relief Photoresist Contact Printer: Bethany Puente RN Scrub Person: Brayden Moralez Jr., RN; Paolo Penn Patient Critical Care Nurse: Adrian Dumont Indications: Della Browning is an [...] Ongoing * Plan of Care - Lisbeth Shreidan RN - 06/15/2023 1830 EDT Problem: High [...] 1050 EDT Brief ACS Update Note [facility] contacted regarding OR cultures. From 4/17, buttock tissue culture with gram positiveflora (mixed). [...] 2341 EDT Date: 06/13/2023 - 06/14/2023 Location: [facility] [place] Name: Della Browning, : 1970, Diagnosis [...] Peripheral IV 06/13/23 Right Antecubital (Removed) Staff: Photoresist Contact Printer: Perry Flores RN Scrub Person: Willie Haney [...] only block results from tests performed at [facility] and does not apply for Miscellaneous Test Order) Immediate ANAEROBE CULTURE/SMEAR(INC. AEROBES), OTHER Soft Tissue Collected By: Moo Monique MD 06/14/2023 22:51 Is the specimen associated with a prosthetic joint? (If yes, the lab will hold the culture for 10 days) No Results Release to Patient (Note: Choosing Manual Release will only block results from tests performed at [facility] and does not apply for Miscellaneous Test Order) Immediate PREPARE RED BLOOD CELLS 06/14/2023 18:47 Number of RBC units to keep ahead: 0 Attending Attestation: Dr. Monique was present and scrubbed for the entire procedure. AYDEN ALEXANDER MD 06/15/2023 1:47 General Surgery, PGY-4 #0160 * Plan of Care - Harper Sandoval RN - 06/14/2023 0249 EDT Data: Pt arrived 0000 from [facility] for wound care needs d/t Necrotizing fasciitis. [...] Add LDA for any identified wounds Add [place] image for any suspected PI or non surgical wounds Order wound consult if suspected PI identified If Jerson is < or = to 16, initiate Pressure Injury Prevention Bundle ([id number]). 06/14/2023 2:50 HARPER SANDOVAL RN 06/14/2023 2:49 [...] complication, without long-term current use of insulin ([facility]) Expected: 08/29/2023 (Approximate), Expires: 08/21/2024 AMB CONS/FOLLOW UP ACUTE CARE SURGERY/TRAUMA/BURN Outpatient Referral Routine/Next Available Necrotizing soft tissue infection Expected: 08/29/2023 (Approximate), Expires: 08/21/2024 PROVIDER FOLLOW-UP INSTRUCTIONS Outpatient Referral Routine Ordered: 08/22/2023 PROVIDER FOLLOW-UP INSTRUCTIONS Outpatient Referral Routine Ordered: 08/22/2023 AMB CONS/FOLLOW UP PRIMARY CARE PHYSICIAN - EXTERNAL Outpatient Referral Routine/Next Available Necrotizing soft tissue infection Complete heart block ([facility]) Type 2 diabetes mellitus without complication, without long-term current use of insulin ([facility]) Expected: 08/29/2023 (Approximate), Expires: 08/21/2024 documented as [...] POCT GLUCOSE, INTERFACED Routine 06/26/2023 23:29 EDT POCT GLUCOSE, INTERFACED Routine 06/26/2023 20:00 EDT [...] 9:57 EDT) 08/27/2023 9:57 EDT Scan 2 Process Designer PROCEDURE/MINOR VI GICAL ORDERABLES * ECG REPORT - SCANNED (08/26/2023 11:11 EDT) 08/26/2023 11:1 1 EDT Scan 2 Process Designer PROCEDURE/MINOR VI GICAL ORDERABLES * (ABNORMAL) POCT GLUCOSE, INTERFACED (08/22/2023 7:34 EDT) Glucose, POC 148(H) 70 - 100 mg/dL 08/22/2023 7:35 EDT [facility] HN LAB POC COMMENT (GLUCOSE) Test Performed by Nursing Services 08/22/2023 7:35 EDT [facility] Blood CAPILLARY BLOOD / Unknown 08/22/2023 7:34 EDT 08/22/2023 7:35 EDT Aura Howell NP POINT OF CARE TEST O RDERABLES [facility] [address] [place] [address] * (ABNORMAL) COMPLETE BLOOD COUNT AND DIFFERENTIAL (08/22/2023 5:43 EDT) WBC 9.52 4.00 - 12.40 K/cmm 08/22/2023 6:37 EDT [facility] RBC 3.19(L) 3.86 - 5.04 M/cmm 08/22/2023 6:37 [facility] Hemoglobin 8.8(L) 11.6 - 15.2 g/dL 08/22/2023 6:37 [facility] HCT 26.2(L) 34.9 - 44.4 % 08/22/2023 6:37 [facility] MCV 82 81 - 98 fL 08/22/2023 6:37 [facility] MCH 27.6 26.7 - 33.3 pg 08/22/2023 6:37 [facility] MCHC 33.6 32.1 - 35.9 g/dL 08/22/2023 6:37 [facility] RDW-CV 14.0 <14.7 % 08/22/2023 6:37 [facility] RDW-SD 41.9 <50.4 fl 08/22/2023 6:37 [facility] PLT 317 141 - 377 K/cmm 08/22/2023 6:37 [facility] MPV 10.7 9.5 - 12.7 fL 08/22/2023 6:37 [facility] % Neutrophils 68.8 % 08/22/2023 6:37 [facility] % Lymphocytes 19.1 % 08/22/2023 6:37 [facility] % Monocytes 8.2 % 08/22/2023 6:37 [facility] % Eosinophils 2.3 % 08/22/2023 6:37 [facility] % Basophils 0.4 % 08/22/2023 6:37 [facility] % Immature Grans 1.2 % 08/22/19 6:37 [facility] Absolute Neutrophils 6.55 2.20 - 8.85 K/cmm 08/22/2023 6:37 [facility] Absolute Lymphocytes 1.82 1.09 - 3.30 K/cmm 08/22/2023 6:37 [facility] Absolute Monocytes 0.78 0.10 - 0.80 K/cmm 08/22/2023 6:37 T [facility] Absolute Eosinophils 0.22 0.03 - 0.61 K/cm 08/22/2023 6:37 T [facility] ABS Basophils 0.04 0.01 - 0.11 K/cm 08/22/2023 6:37 [facility] Absolute Immature Grans 0.11(H) 0.00 - 0.06 K/critical access hospital 08/22/2023 6:37 [facility] Type of Differential: Auto 08/22/2023 6:37 [facility] Blood VENOUS BLOOD / Unknown Venipuncture / Unknown 08/22/2023 5:43 EDT 08/22/2023 6:29 EDT Joan Menon MD PACKAGES & DNA PROBE ORDERABLES [facility] [address] [place] [address] * (ABNORMAL) BASIC METABOLIC PANEL (BMP) (08/22/2023 5:43 EDT) Sodium 134(L) 136 - 145 mmol/L 08/22/2023 7:02 [facility] Potassium 4.4 3.5 - 5.0 mmol/L 08/22/2023 7:02 [facility] Chloride 99 96 - 110 mmol/L 08/22/2023 7:02 [facility] CO2 Total 22 22 - 32 mmol/L 08/22/2023 7:02 [facility] Anion Gap 13 5 - 14 mmol/L 08/22/2023 7:02 [facility] Glucose 164(H) 70 - 99 mg/dl 08/22/2023 7:02 [facility] Calcium 9.9 8.5 - 10.5 mg/dL 08/22/2023 7:02 [facility] BUN 30(H) 10 - 26 mg/dL 08/22/2023 7:02 [facility] Creatinine 0.74 0.52 - 1.04 mg/dL 08/22/2023 7:02 EDT [facility] eGFR 97 >60 mL/min/1.73 m2 08/22/2023 7:02 EDT [facility] Blood VENOUS BLOOD / Unknown Venipuncture / Unknown 08/22/2023 5:43 EDT 08/22/2023 6:30 EDT Joan Menon MD CHEMISTRY & BLOOD GA S ORDERABLES Performing Organization Address [facility] Co de Phone Number [facility] [address] [place] [address] * (ABNORMAL) POCT GLUCOSE, INTERFACED (08/21/2023 20:38 EDT) Glucose, POC 124(H) 70 - 100 mg/dL 08/21/2023 20:39 EDT [facility] HN LAB POC COMMENT (GLUCOSE) Test Performed by Nursing Services 08/21/2023 20:39 EDT [facility] Blood CAPILLARY BLOOD / Unknown 08/21/2023 20:38 EDT 08/21/2023 20:39 EDT Aura Howell TABLET COATER POINT OF CARE TEST O RDERABLES Performing Organization Address [facility] Co de Phone Number [facility] [address] [place] [address] * POCT GLUCOSE, INTERFACED (08/21/2023 17:29 EDT) Glucose, POC 80 70 - 100 mg/dL 08/21/2023 17:31 EDT [facility] HN LAB POC COMMENT (GLUCOSE) Test Performed by Nursing Services 08/21/2023 17:31 EDT [facility] Blood CAPILLARY BLOOD / Unknown 08/21/2023 17:29 EDT 08/21/2023 17:31 EDT Aura Howell TABLET COATER POINT OF CARE TEST O RDERABLES Performing Organization Address [facility]/ZIP Co de Phone Number [facility] [address], [place] [phone] * (ABNORMAL) POCT GLUCOSE, INTERFACED (08/21/2023 12:01 EDT) Glucose, POC 179(H) 70 - 100 mg/dL 08/21/2023 12:02 EDT [facility] HN LAB POC COMMENT (GLUCOSE) Test Performed by Nursing Services 08/21/2023 12:02 EDT [facility] Blood CAPILLARY BLOOD / Unknown 08/21/2023 12:01 EDT 08/21/2023 12:02 EDT Ayla Lynda TABLET COATER POINT OF CARE TEST O RDERABLES Performing Organization Address [facility] Co de Phone Number [facility] [address], [place] [phone] * (ABNORMAL) POCT GLUCOSE, INTERFACED (08/21/2023 7:33 EDT) Glucose, POC 140(H) 70 - 100 mg/dL 08/21/2023 7:35 EDT [facility] HN LAB POC COMMENT (GLUCOSE) Test Performed by Nursing Services 08/21/2023 7:35 EDT [facility] Blood CAPILLARY BLOOD / Unknown 08/21/2023 7:33 EDT 08/21/2023 7:34 EDT Aura Altman Lynda TABLET COATER POINT OF CARE TEST O RDERABLES Performing Organization Address [facility] Co de Phone Number [facility] [address], [place] [phone] * (ABNORMAL) POCT GLUCOSE, INTERFACED (08/20/2023 20:55 EDT) Glucose, POC 147(H) 70 - 100 mg/dL 08/20/2023 20:56 EDT [facility] HN LAB POC COMMENT (GLUCOSE) Test Performed by Nursing Services 08/20/2023 20:56 EDT [facility] Blood CAPILLARY BLOOD / Unknown 08/20/2023 20:55 EDT 08/20/2023 20:56 EDT Aura Howell TABLET COATER POINT OF CARE TEST O RDERABLES Performing Organization Address City/[facility]/ZIP Co de Phone Number [facility] [address], [place] [phone] * (ABNORMAL) POCT GLUCOSE, INTERFACED (08/20/2023 18:19 EDT) Glucose, POC 145(H) 70 - 100 mg/dL 08/20/2023 18:20 EDT [facility] HN LAB POC COMMENT (GLUCOSE) Test Performed by Nursing Services 08/20/2023 18:20 EDT [facility] Blood CAPILLARY BLOOD / Unknown 08/20/2023 18:19 EDT 08/20/2023 18:20 EDT Aura Howell TABLET COATER POINT OF CARE TEST O LORENAERAMICHAEL Performing Organization Address City/[facility]/ZIP Co de Phone Number [facility] [address] [place] [address] * (ABNORMAL) POCT GLUCOSE, INTERFACED (08/20/2023 12:06 EDT) Glucose, POC 114(H) 70 - 100 mg/dL 08/20/2023 12:07 EDT [facility] HN LAB POC COMMENT (GLUCOSE) Test Performed by Nursing Services 08/20/2023 12:07 EDT [facility] Blood CAPILLARY BLOOD / Unknown 08/20/2023 12:06 EDT 08/20/2023 12:07 EDT Aura Howell TABLET COATER POINT OF CARE TEST O RDERABLES Performing Organization Address City/[facility]/ZIP Co de Phone Number [facility] [address] [place] [address] * (ABNORMAL) POCT GLUCOSE, INTERFACED (08/20/2023 7:45 EDT) Glucose, POC 139(H) 70 - 100 mg/dL 08/20/2023 7:47 EDT [facility] HN LAB POC COMMENT (GLUCOSE) Test Performed by Nursing Services 08/20/2023 7:47 EDT [facility] Blood CAPILLARY BLOOD / Unknown 08/20/2023 7:45 EDT 08/20/2023 7:47 EDT Aura Howell TABLET COATER POINT OF CARE TEST O RDERAMICHAEL [facility] [address], [place] [phone] * POCT GLUCOSE, INTERFACED (08/19/2023 21:41 EDT) Glucose, POC 85 70 - 100 mg/dL 08/19/2023 21:55 EDT [facility] HN LAB POC COMMENT (GLUCOSE) Test Performed by Nursing Services 08/19/2023 21:55 EDT [facility] Blood CAPILLARY BLOOD / Unknown 08/19/2023 21:41 EDT 08/19/2023 21:55 EDT Aura Howell TABLET COATER POINT OF CARE TEST O RDERAMICHAEL [facility] [address], [place] [phone] * (ABNORMAL) POCT GLUCOSE, INTERFACED (08/19/2023 11:26 EDT) Glucose, POC 130(H) 70 - 100 mg/dL 08/19/2023 11:28 EDT [facility] HN LAB POC COMMENT (GLUCOSE) Test Performed by Nursing Services 08/19/2023 11:28 EDT [facility] Blood CAPILLARY BLOOD / Unknown 08/19/2023 11:26 EDT 08/19/2023 11:28 EDT Aura Howell TABLET COATER POINT OF CARE TEST O NANCY Performing Organization Address [facility] de Phone Number [facility] [address] [place] [address] * (ABNORMAL) POCT GLUCOSE, INTERFACED (08/19/2023 7:35 EDT) Glucose, POC 139(H) 70 - 100 mg/dL 08/19/2023 7:39 EDT [facility] HN LAB POC COMMENT (GLUCOSE) Test Performed by Nursing Services 08/19/2023 7:39 EDT [facility] Blood CAPILLARY BLOOD / Unknown 08/19/2023 7:35 EDT 08/19/2023 7:39 EDT Aura Howlel TABLET COATER POINT OF CARE TEST O NANCY Performing Organization Address [facility] de Phone Number [facility] [address], [place] [phone] * (ABNORMAL) COMPLETE BLOOD COUNT AND DIFFERENTIAL (08/19/2023 7:34 EDT) [facility] WBC 7.82 4.00 - 12.40 K/cmm 08/19/2023 8:01 [facility] RBC 3.45(L) 3.86 - 5.04 M/cmm 08/19/2023 8:01 [facility] Hemoglobin 9.6(L) 11.6 - 15.2 g/dL 08/19/2023 8:01 [facility] HCT 28.6(L) 34.9 - 44.4 % 08/19/2023 8:01 [facility] MCV 83 81 - 98 fL 08/19/2023 8:01 [facility] MCH 27.8 26.7 - 33.3 pg 08/19/2023 8:01 [facility] MCHC 33.6 32.1 - 35.9 g/dL 08/19/2023 8:01 [facility] RDW-CV 14.0 <14.7 % 08/19/2023 8:01 [facility] RDW-SD 42.2 <50.4 fl 08/19/2023 8:01 [facility] PLT 325 141 - 377 K/cmm 08/19/2023 8:01 [facility] MPV 10.7 9.5 - 12.7 fL 08/19/2023 8:01 [facility] % Neutrophils 59.5 % 08/19/2023 8:01 [facility] % Lymphocytes 28.4 % 08/19/2023 8:01 [facility] % Monocytes 7.5 % 08/19/2023 8:01 [facility] % Eosinophils 3.2 % 08/19/2023 8:01 [facility] % Basophils 0.5 % 08/19/2023 8:01 [facility] % Immature Grans 0.9 % 08/19/19 8:01 [facility] Absolute Neutrophils 4.65 2.20 - 8.85 K/cmm 08/19/2023 8:01 [facility] Absolute Lymphocytes 2.22 1.09 - 3.30 K/cmm 08/19/2023 8:01 [facility] Absolute Monocytes 0.59 0.10 - 0.80 K/cmm 08/19/2023 8:01 [facility] Absolute Eosinophils 0.25 0.03 - 0.61 K/cmm 08/19/2023 8:01 [facility] ABS Basophils 0.04 0.01 - 0.11 K/cmm 08/19/2023 8:01 [facility] Absolute Immature Grans 0.07(H) 0.00 - 0.06 K/cmm 08/19/2023 8:01 [facility] Type of Differential: Auto 08/19/2023 8:01 [facility] Blood VENOUS BLOOD / Unknown Venipuncture / Unknown 08/19/2023 7:34 EDT 08/19/2023 7:49 EDT Joan Menon MD PACKAGES & DNA PROBE ORDERABLES Performing Organization Address [facility]/ZIP Co de Phone Number [facility] [address] [place] [address] * (ABNORMAL) BASIC METABOLIC PANEL (BMP) (08/19/2023 7:34 EDT) Sodium 136 136 - 145 mmol/L 08/19/2023 8:23 EDT [facility] Potassium 4.5 3.5 - 5.0 mmol/L 08/19/2023 8:23 [facility] Chloride 101 96 - 110 mmol/L 08/19/2023 8:23 [facility] CO2 Total 22 22 - 32 mmol/L 08/19/2023 8:23 [facility] Anion Gap 13 5 - 14 mmol/L 08/19/2023 8:23 [facility] Glucose 141(H) 70 - 99 mg/dl 08/19/2023 8:23 [facility] Calcium 9.9 8.5 - 10.5 mg/dL 08/19/2023 8:23 [facility] BUN 26 10 - 26 mg/dL 08/19/2023 8:23 [facility] Creatinine 0.56 0.52 - 1.04 mg/dL 08/19/2023 8:23 [facility] eGFR 109 >60 mL/min/1.73 m2 08/19/2023 8:23 [facility] Blood VENOUS BLOOD / Unknown Venipuncture / Unknown 08/19/2023 7:34 EDT 08/19/2023 7:55 EDT Joan Menon MD CHEMISTRY & BLOOD GA S ORDERABLES [facility] [address], [place] [phone] * (ABNORMAL) POCT GLUCOSE, INTERFACED (08/18/2023 20:51 EDT) Glucose, POC 142(H) 70 - 100 mg/dL 08/18/2023 20:53 EDT [facility] HN LAB POC COMMENT (GLUCOSE) Test Performed by Nursing Services 08/18/2023 20:53 EDT [facility] Blood CAPILLARY BLOOD / Unknown 08/18/2023 20:51 EDT 08/18/2023 20:53 EDT Aura Howell TABLET COATER POINT OF CARE TEST O RDERABLES Performing Organization Address City/[facility]/ZIP Co de Phone Number [facility] [address], [place] [phone] * POCT GLUCOSE, INTERFACED (08/18/2023 17:35 EDT) Glucose, POC 97 70 - 100 mg/dL 08/18/2023 17:36 EDT [facility] HN LAB POC COMMENT (GLUCOSE) Test Performed by Nursing Services 08/18/2023 17:36 EDT [facility] Blood CAPILLARY BLOOD / Unknown 08/18/2023 17:35 EDT 08/18/2023 17:36 EDT Aura Howell TABLET COATER POINT OF CARE TEST O RDERABLES Performing Organization Address City/[facility]/ZIP Co de Phone Number [facility] [address], [place] [phone] * (ABNORMAL) POCT GLUCOSE, INTERFACED (08/18/2023 7:28 EDT) Glucose, POC 151(H) 70 - 100 mg/dL 08/18/2023 7:29 EDT [facility] HN LAB POC COMMENT (GLUCOSE) Test Performed by Nursing Services 08/18/2023 7:29 EDT [facility] Blood CAPILLARY BLOOD / Unknown 08/18/2023 7:28 EDT 08/18/2023 7:29 EDT Ayla Lynda TABLET COATER POINT OF CARE TEST O RDERABLES Performing Organization Address [facility]/ZIP Co de Phone Number [facility] [address], [place] [phone] * (ABNORMAL) POCT GLUCOSE, INTERFACED (08/17/2023 21:28 EDT) Glucose, POC 134(H) 70 - 100 mg/dL 08/17/2023 21:29 EDT [facility] HN LAB POC COMMENT (GLUCOSE) Test Performed by Nursing Services 08/17/2023 21:29 EDT [facility] Blood CAPILLARY BLOOD / Unknown 08/17/2023 21:28 EDT 08/17/2023 21:29 EDT Narrative Authorizing Provider Result Ambreen Howell TABLET COATER POINT OF CARE TEST O LORENAERAMICHAEL Performing Organization Address [facility] Co de Phone Number [facility] [address] [place] [address] * (ABNORMAL) POCT GLUCOSE, INTERFACED (08/17/2023 17:32 EDT) Glucose, POC 115(H) 70 - 100 mg/dL 08/17/2023 17:34 EDT [facility] HN LAB POC COMMENT (GLUCOSE) Test Performed by Nursing Services 08/17/2023 17:34 EDT [facility] Blood CAPILLARY BLOOD / Unknown 08/17/2023 17:32 EDT 08/17/2023 17:34 EDT Aura Howell TABLET COATER POINT OF CARE TEST O RDERABLES Performing Organization Address [facility] Co de Phone Number [facility] [address] [place] [address] * (ABNORMAL) POCT GLUCOSE, INTERFACED (08/17/2023 11:35 EDT) Glucose, POC 156(H) 70 - 100 mg/dL 08/17/2023 11:36 EDT [facility] HN LAB POC COMMENT (GLUCOSE) Test Performed by Nursing Services 08/17/2023 11:36 EDT [facility] Blood CAPILLARY BLOOD / Unknown 08/17/2023 11:35 EDT 08/17/2023 11:36 EDT Aura Howell TABLET COATER POINT OF CARE TEST O RDERABLES Performing Organization Address [facility]/ZIP Co de Phone Number [facility] [address] [place] [address] * (ABNORMAL) POCT GLUCOSE, INTERFACED (08/17/2023 7:02 EDT) Glucose, POC 150(H) 70 - 100 mg/dL 08/17/2023 7:03 EDT [facility] HN LAB POC COMMENT (GLUCOSE) Test Performed by Nursing Services 08/17/2023 7:03 EDT [facility] Blood CAPILLARY BLOOD / Unknown 08/17/2023 7:02 EDT 08/17/2023 7:03 EDT Aura Howell TABLET COATER POINT OF CARE TEST O RDERABLES Performing Organization Address [facility] Co de Phone [facility] [facility] [address], [place] [id number] * (ABNORMAL) POCT GLUCOSE, INTERFACED (08/16/2023 21:59 EDT) Glucose, POC 177(H) 70 - 100 mg/dL 08/16/2023 22:00 EDT [facility] HN LAB POC COMMENT (GLUCOSE) Test Performed by Nursing Services 08/16/2023 22:00 EDT [facility] Blood CAPILLARY BLOOD / Unknown 08/16/2023 21:59 EDT 08/16/2023 22:00 EDT Aura Howell NP POINT OF CARE TEST O RDERABLES Performing Organization Address City/[facility]/ZIP Co de Phone Number [facility] [address] [place] [address] * (ABNORMAL) POCT GLUCOSE, INTERFACED (08/16/2023 17:48 EDT) Glucose, POC 143(H) 70 - 100 mg/dL 08/16/2023 17:49 EDT [facility] HN LAB POC COMMENT (GLUCOSE) Test Performed by Nursing Services 08/16/2023 17:49 EDT [facility] Blood CAPILLARY BLOOD / Unknown 08/16/2023 17:48 EDT 08/16/2023 17:49 EDT Moo Monique MD POINT OF CARE TEST ORDERABLES Performing Organization Address [facility]/ZIP Co de Phone Number [facility] [address] [place] [address] * (ABNORMAL) POCT GLUCOSE, INTERFACED (08/16/2023 17:08 EDT) Glucose, POC 104(H) 70 - 100 mg/dL 08/16/2023 17:13 EDT [facility] HN LAB POC COMMENT (GLUCOSE) Test Performed by Nursing Services 08/16/2023 17:13 EDT [facility] Blood CAPILLARY BLOOD / Unknown 08/16/2023 17:08 EDT 08/16/2023 17:13 EDT Aura Howell NP POINT OF CARE TEST O RDERABLES Performing Organization Address City/[facility]/ZIP Co de Phone Number [facility] [address] [place] [address] * (ABNORMAL) POCT GLUCOSE, INTERFACED (08/16/2023 11:59 EDT) Glucose, POC 215(H) 70 - 100 mg/dL 08/16/2023 12:00 EDT [facility] HN LAB POC COMMENT (GLUCOSE) Test Performed by Nursing Services 08/16/2023 12:00 EDT [facility] Blood CAPILLARY BLOOD / Unknown 08/16/2023 11:59 EDT 08/16/2023 12:00 EDT Ayla Lynda TABLET COATER POINT OF CARE TEST O RDERABLES Performing Organization Address City/[facility]/ZIP Co de Phone Number [facility] [address], [place] [phone] * (ABNORMAL) POCT GLUCOSE, INTERFACED (08/16/2023 8:18 EDT) Glucose, POC 140(H) 70 - 100 mg/dL 08/16/2023 8:19 EDT [facility] HN LAB POC COMMENT (GLUCOSE) Test Performed by Nursing Services 08/16/2023 8:19 EDT [facility] Blood CAPILLARY BLOOD / Unknown 08/16/2023 8:18 EDT 08/16/2023 8:19 EDT Aura Howell TABLET COATER POINT OF CARE TEST O RDERABLES Performing Organization Address [facility] Co de Phone Number [facility] [address] [place] [address] * (ABNORMAL) POCT GLUCOSE, INTERFACED (08/15/2023 21:20 EDT) Glucose, POC 130(H) 70 - 100 mg/dL 08/15/2023 21:21 EDT [facility] HN LAB POC COMMENT (GLUCOSE) Test Performed by Nursing Services 08/15/2023 21:21 EDT [facility] Blood CAPILLARY BLOOD / Unknown 08/15/2023 21:20 EDT 08/15/2023 21:21 EDT Aura Howell TABLET COATER POINT OF CARE TEST O RDERABLES Performing Organization Address City/[facility]/ZIP Co de Phone Number [facility] [address], [place] [phone] * (ABNORMAL) POCT GLUCOSE, INTERFACED (08/15/2023 18:06 EDT) Glucose, POC 153(H) 70 - 100 mg/dL 08/15/2023 18:08 EDT [facility] HN LAB POC COMMENT (GLUCOSE) Test Performed by Nursing Services 08/15/2023 18:08 EDT [facility] Blood CAPILLARY BLOOD / Unknown 08/15/2023 18:06 EDT 08/15/2023 18:08 EDT Aura Howell TABLET COATER POINT OF CARE TEST O RDERAMICHAEL Performing Organization Address [facility] Co de Phone Number [facility] [address], [place] [phone] * (ABNORMAL) POCT GLUCOSE, INTERFACED (08/15/2023 11:38 EDT) Glucose, POC 107(H) 70 - 100 mg/dL 08/15/2023 11:39 EDT [facility] HN LAB POC COMMENT (GLUCOSE) Test Performed by Nursing Services 08/15/2023 11:39 EDT [facility] Blood CAPILLARY BLOOD / Unknown 08/15/2023 11:38 EDT 08/15/2023 11:38 EDT Aura Howell TABLET COATER POINT OF CARE TEST O NANCY Performing Organization Address City/[facility]/ZIP Co de Phone Number [facility] [address], [place] [phone] * (ABNORMAL) POCT GLUCOSE, INTERFACED (08/15/2023 8:05 EDT) Glucose, POC 166(H) 70 - 100 mg/dL 08/15/2023 8:06 EDT [facility] HN LAB POC COMMENT (GLUCOSE) Test Performed by Nursing Services 08/15/2023 8:06 EDT [facility] Blood CAPILLARY BLOOD / Unknown 08/15/2023 8:05 EDT 08/15/2023 8:06 EDT Aura Howell NP POINT OF CARE TEST O RDERABLES [facility] [address] [place] [address] * (ABNORMAL) COMPLETE BLOOD COUNT AND DIFFERENTIAL (08/15/2023 7:50 EDT) WBC 7.27 4.00 - 12.40 K/cmm 08/15/2023 8:10 [facility] RBC 3.14(L) 3.86 - 5.04 M/cmm 08/15/2023 8:10 [facility] Hemoglobin 8.8(L) 11.6 - 15.2 g/dL 08/15/2023 8:10 [facility] HCT 26.1(L) 34.9 - 44.4 % 08/15/2023 8:10 [facility] MCV 83 81 - 98 fL 08/15/2023 8:10 [facility] MCH 28.0 26.7 - 33.3 pg 08/15/2023 8:10 [facility] MCHC 33.7 32.1 - 35.9 g/dL 08/15/2023 8:10 [facility] RDW-CV 14.3 <14.7 % 08/15/2023 8:10 [facility] RDW-SD 43.1 <50.4 fl 08/15/2023 8:10 [facility] PLT 281 141 - 377 K/cmm 08/15/2023 8:10 [facility] MPV 10.4 9.5 - 12.7 fL 08/15/2023 8:10 [facility] % Neutrophils 59.0 % 08/15/2023 8:10 [facility] % Lymphocytes 26.5 % 08/15/2023 8:10 [facility] % Monocytes 9.2 % 08/15/2023 8:10 [facility] % Eosinophils 3.7 % 08/15/2023 8:10 [facility] % Basophils 0.6 % 08/15/2023 8:10 [facility] % Immature Grans 1.0 % 08/15/19 8:10 [facility] Absolute Neutrophils 4.29 2.20 - 8.85 K/cmm 08/15/2023 8:10 [facility] Absolute Lymphocytes 1.93 1.09 - 3.30 K/cmm 08/15/2023 8:10 [facility] Absolute Monocytes 0.67 0.10 - 0.80 K/cmm 08/15/2023 8:10 [facility] Absolute Eosinophils 0.27 0.03 - 0.61 K/cmm 08/15/2023 8:10 [facility] ABS Basophils 0.04 0.01 - 0.11 K/cmm 08/15/2023 8:10 [facility] Absolute Immature Grans 0.07(H) 0.00 - 0.06 K/cmm 08/15/2023 8:10 [facility] Type of Differential: Auto 08/15/2023 8:10 [facility] Blood VENOUS BLOOD / Unknown Venipuncture / Unknown 08/15/2023 7:50 EDT 08/15/2023 8:02 EDT Joan Menon MD PACKAGES & DNA PROBE ORDERABLES [facility] [address] [place] [address] * (ABNORMAL) BASIC METABOLIC PANEL (BMP) (08/15/2023 7:50 EDT) Sodium 137 136 - 145 mmol/L 08/15/2023 8:33 EDT [facility] Potassium 4.3 3.5 - 5.0 mmol/L 08/15/2023 8:33 EDT [facility] Chloride 103 96 - 110 mmol/L 08/15/2023 8:33 EDT [facility] CO2 Total 23 22 - 32 mmol/L 08/15/2023 8:33 T [facility] Anion Gap 11 5 - 14 mmol/L 08/15/2023 8:33 EDT [facility] Glucose 166(H) 70 - 99 mg/dl 08/15/2023 8:33 EDT [facility] Calcium 9.6 8.5 - 10.5 mg/dL 08/15/2023 8:33 T [facility] BUN 24 10 - 26 mg/dL 08/15/2023 8:33 [facility] Creatinine 0.54 0.52 - 1.04 mg/dL 08/15/2023 8:33 [facility] eGFR 110 >60 mL/min/1.73 m2 08/15/2023 8:33 T [facility] Blood VENOUS BLOOD / Unknown Venipuncture / Unknown 08/15/2023 7:50 EDT 08/15/2023 7:59 EDT Joan Menon MD CHEMISTRY & BLOOD GA S ORDERABLES [facility] [address] [place] [address] * (ABNORMAL) POCT GLUCOSE, INTERFACED (08/14/2023 20:43 EDT) Glucose, POC 225(H) 70 - 100 mg/dL 08/14/2023 20:44 EDT [facility] HN LAB POC COMMENT (GLUCOSE) Test Performed by Nursing Services 08/14/2023 20:44 EDT [facility] Blood CAPILLARY BLOOD / Unknown 08/14/2023 20:43 EDT 08/14/2023 20:44 EDT Aura Howell NP POINT OF CARE TEST O RDERABLES [facility] [address], [place] [phone] * (ABNORMAL) POCT GLUCOSE, INTERFACED (08/14/2023 17:44 EDT) Glucose, POC 143(H) 70 - 100 mg/dL 08/14/2023 17:45 EDT [facility] HN LAB POC COMMENT (GLUCOSE) Test Performed by Nursing Services 08/14/2023 17:45 EDT [facility] Blood CAPILLARY BLOOD / Unknown 08/14/2023 17:44 EDT 08/14/2023 17:44 EDT Aura Howell TABLET COATER POINT OF CARE TEST O RDERAMICHAEL Performing Organization Address [facility] Co de Phone Number [facility] [address], [place] [phone] * (ABNORMAL) POCT GLUCOSE, INTERFACED (08/14/2023 11:38 EDT) Glucose, POC 155(H) 70 - 100 mg/dL 08/14/2023 11:39 EDT [facility] HN LAB POC COMMENT (GLUCOSE) Test Performed by Nursing Services 08/14/2023 11:39 EDT [facility] Blood CAPILLARY BLOOD / Unknown 08/14/2023 11:38 EDT 08/14/2023 11:39 EDT Aura Howell TABLET COATER POINT OF CARE TEST O LORENAERAMICHAEL Performing Organization Address City/[facility]/ZIP Co de Phone Number [facility] [address], [place] [phone] * (ABNORMAL) POCT GLUCOSE, INTERFACED (08/14/2023 7:43 EDT) Glucose, POC 166(H) 70 - 100 mg/dL 08/14/2023 7:45 EDT [facility] HN LAB POC COMMENT (GLUCOSE) Test Performed by Nursing Services 08/14/2023 7:45 EDT [facility] Blood CAPILLARY BLOOD / Unknown 08/14/2023 7:43 EDT 08/14/2023 7:45 EDT Aura Howell TABLET COATER POINT OF CARE TEST O RDERABLES Performing Organization Address City/[facility]/ZIP Co de Phone Number [facility] [address], [place] [phone] * (ABNORMAL) POCT GLUCOSE, INTERFACED (08/13/2023 22:09 EDT) Glucose, POC 206(H) 70 - 100 mg/dL 08/13/2023 22:10 EDT [facility] HN LAB POC COMMENT (GLUCOSE) Test Performed by Nursing Services 08/13/2023 22:10 EDT [facility] Blood CAPILLARY BLOOD / Unknown 08/13/2023 22:09 EDT 08/13/2023 22:10 EDT Aura Howell TABLET COATER POINT OF CARE TEST O RDERABLES Performing Organization Address [facility] Co de Phone Number [facility] [address] [place] [address] * (ABNORMAL) POCT GLUCOSE, INTERFACED (08/13/2023 17:44 EDT) Glucose, POC 144(H) 70 - 100 mg/dL 08/13/2023 17:45 EDT [facility] HN LAB POC COMMENT (GLUCOSE) Test Performed by Nursing Services 08/13/2023 17:45 EDT [facility] Blood CAPILLARY BLOOD / Unknown 08/13/2023 17:44 EDT 08/13/2023 17:45 EDT Aura Altman Lynda TABLET COATER POINT OF CARE TEST O RDERABLES Performing Organization Address [facility]/ZIP Co de Phone Number [facility] [address] [place] [address] * (ABNORMAL) POCT GLUCOSE, INTERFACED (08/13/2023 11:36 EDT) Glucose, POC 132(H) 70 - 100 mg/dL 08/13/2023 11:40 EDT [facility] HN LAB POC COMMENT (GLUCOSE) Test Performed by Nursing Services 08/13/2023 11:40 EDT [facility] Blood CAPILLARY BLOOD / Unknown 08/13/2023 11:36 EDT 08/13/2023 11:40 EDT AylaAnupama Howell TABLET COATER POINT OF CARE TEST O RDERABLES Performing Organization Address [facility] Co de Phone Number [facility] [address] [place] [address] * (ABNORMAL) POCT GLUCOSE, INTERFACED (08/13/2023 7:17 EDT) Glucose, POC 191(H) 70 - 100 mg/dL 08/13/2023 7:18 EDT [facility] HN LAB POC COMMENT (GLUCOSE) Test Performed by Nursing Services 08/13/2023 7:18 EDT [facility] Blood CAPILLARY BLOOD / Unknown 08/13/2023 7:17 EDT 08/13/2023 7:18 EDT Aura Howell TABLET COATER POINT OF CARE TEST O RDERABLES Performing Organization Address City/[facility]/ZIP Co de Phone Number [facility] [address] [place] [address] * (ABNORMAL) POCT GLUCOSE, INTERFACED (08/12/2023 21:35 EDT) Glucose, POC 153(H) 70 - 100 mg/dL 08/12/2023 21:36 EDT [facility] HN LAB POC COMMENT (GLUCOSE) Test Performed by Nursing Services 08/12/2023 21:36 EDT [facility] Blood CAPILLARY BLOOD / Unknown 08/12/2023 21:35 EDT 08/12/2023 21:36 EDT Ayla Lynda TABLET COATER POINT OF CARE TEST O RDERABLES Performing Organization Address [facility] Co de Phone Number [facility] [address], [place] [phone] * (ABNORMAL) POCT GLUCOSE, INTERFACED (08/12/2023 17:37 EDT) Glucose, POC 149(H) 70 - 100 mg/dL 08/12/2023 17:39 EDT [facility] HN LAB POC COMMENT (GLUCOSE) Test Performed by Nursing Services 08/12/2023 17:39 EDT [facility] Blood CAPILLARY BLOOD / Unknown 08/12/2023 17:37 EDT 08/12/2023 17:39 EDT Ayla Lynda TABLET COATER POINT OF CARE TEST O RDERABLES Performing Organization Address [facility] Co de Phone Number [facility] [address] [place] [address] * (ABNORMAL) POCT GLUCOSE, INTERFACED (08/12/2023 11:19 EDT) Glucose, POC 141(H) 70 - 100 mg/dL 08/12/2023 11:20 EDT [facility] HN LAB POC COMMENT (GLUCOSE) Test Performed by Nursing Services 08/12/2023 11:20 EDT [facility] Blood CAPILLARY BLOOD / Unknown 08/12/2023 11:19 EDT 08/12/2023 11:20 EDT Aura Howell TABLET COATER POINT OF CARE TEST O RDERABLES Performing Organization Address [facility] Co de Phone Number [facility] [address], [place] [phone] * (ABNORMAL) POCT GLUCOSE, INTERFACED (08/12/2023 6:51 EDT) Glucose, POC 168(H) 70 - 100 mg/dL 08/12/2023 6:52 T [facility] HN LAB POC COMMENT (GLUCOSE) Test Performed by Nursing Services 08/12/2023 6:52 [facility] Blood CAPILLARY BLOOD / Unknown 08/12/2023 6:51 EDT 08/12/2023 6:52 EDT Aura Howell NP POINT OF CARE TEST O RDERABLES Performing Organization Address City/State/[facility] Co de Phone Number [facility] [address] [place] [address] * (ABNORMAL) COMPLETE BLOOD COUNT AND DIFFERENTIAL (08/12/2023 6:21 EDT) WBC 7.96 4.00 - 12.40 K/cmm 08/12/2023 6:42 [facility] RBC 3.16(L) 3.86 - 5.04 M/cmm 08/12/2023 6:42 [facility] Hemoglobin 8.7(L) 11.6 - 15.2 g/dL 08/12/2023 6:42 [facility] HCT 26.0(L) 34.9 - 44.4 % 08/12/2023 6:42 [facility] MCV 82 81 - 98 fL 08/12/2023 6:42 [facility] MCH 27.5 26.7 - 33.3 pg 08/12/2023 6:42 [facility] MCHC 33.5 32.1 - 35.9 g/dL 08/12/2023 6:42 [facility] RDW-CV 13.9 <14.7 % 08/12/2023 6:42 [facility] RDW-SD 41.5 <50.4 fl 08/12/2023 6:42 [facility] PLT 289 141 - 377 K/cmm 08/12/2023 6:42 [facility] MPV 10.4 9.5 - 12.7 fL 08/12/2023 6:42 [facility] % Neutrophils 59.6 % 08/12/2023 6:42 [facility] % Lymphocytes 26.3 % 08/12/2023 6:42 [facility] % Monocytes 8.4 % 08/12/2023 6:42 [facility] % Eosinophils 3.9 % 08/12/2023 6:42 [facility] % Basophils 0.8 % 08/12/2023 6:42 [facility] % Immature Grans 1.0 % 08/12/19 6:42 [facility] Absolute Neutrophils 4.75 2.20 - 8.85 K/cmm 08/12/2023 6:42 [facility] Absolute Lymphocytes 2.09 1.09 - 3.30 K/cmm 08/12/2023 6:42 [facility] Absolute Monocytes 0.67 0.10 - 0.80 K/cmm 08/12/2023 6:42 [facility] Absolute Eosinophils 0.31 0.03 - 0.61 K/cmm 08/12/2023 6:42 [facility] ABS Basophils 0.06 0.01 - 0.11 K/cmm 08/12/2023 6:42 [facility] Absolute Immature Grans 0.08(H) 0.00 - 0.06 K/cmm 08/12/2023 6:42 [facility] Type of Differential: Auto 08/12/2023 6:42 [facility] Blood VENOUS BLOOD / Unknown Venipuncture / Unknown 08/12/2023 6:21 EDT 08/12/2023 6:25 EDT Joan Menon MD PACKAGES & DNA PROBE ORDERABLES [facility] [address] [place] [address] * (ABNORMAL) BASIC METABOLIC PANEL (BMP) (08/12/2023 6:21 EDT) Sodium 137 136 - 145 mmol/L 08/12/2023 7:00 EDT [facility] Potassium 3.8 3.5 - 5.0 mmol/L 08/12/2023 7:00 T [facility] Chloride 105 96 - 110 mmol/L 08/12/2023 7:00 [facility] CO2 Total 21(L) 22 - 32 mmol/L 08/12/2023 7:00 T [facility] Anion Gap 11 5 - 14 mmol/L 08/12/2023 7:00 [facility] Glucose 164(H) 70 - 99 mg/dl 08/12/2023 7:00 [facility] Calcium 9.5 8.5 - 10.5 mg/dL 08/12/2023 7:00 [facility] BUN 17 10 - 26 mg/dL 08/12/2023 7:00 [facility] Creatinine 0.40(L) 0.52 - 1.04 mg/dL 08/12/2023 7:00 [facility] eGFR 118 >60 mL/min/1.73 m2 08/12/2023 7:00 [facility] Blood VENOUS BLOOD / Unknown Venipuncture / Unknown 08/12/2023 6:21 EDT 08/12/2023 6:25 EDT Joan Menon MD CHEMISTRY & BLOOD GA S ORDERABLES [facility] [address], [place] [phone] * (ABNORMAL) POCT GLUCOSE, INTERFACED (08/11/2023 20:24 EDT) Glucose, POC 189(H) 70 - 100 mg/dL 08/11/2023 20:26 EDT [facility] HN LAB POC COMMENT (GLUCOSE) Test Performed by Nursing Services 08/11/2023 20:26 T [facility] Blood CAPILLARY BLOOD / Unknown 08/11/2023 20:24 EDT 08/11/2023 20:26 EDT Aura Altman Lynda TABLET COATER POINT OF CARE TEST O RDERABLES Performing Organization Address City/[facility]/ZIP Co de Phone Number [facility] [address] [place] [address] * (ABNORMAL) POCT GLUCOSE, INTERFACED (08/11/2023 17:15 EDT) Glucose, POC 119(H) 70 - 100 mg/dL 08/11/2023 17:17 EDT [facility] HN LAB POC COMMENT (GLUCOSE) Test Performed by Nursing Services 08/11/2023 17:17 EDT [facility] Blood CAPILLARY BLOOD / Unknown 08/11/2023 17:15 EDT 08/11/2023 17:17 EDT Aura Howell TABLET COATER POINT OF CARE TEST O RDERABLES Performing Organization Address [facility] Co de Phone Number [facility] [address] [place] [address] * (ABNORMAL) POCT GLUCOSE, INTERFACED (08/11/2023 11:34 EDT) Glucose, POC 194(H) 70 - 100 mg/dL 08/11/2023 11:35 EDT [facility] HN LAB POC COMMENT (GLUCOSE) Test Performed by Nursing Services 08/11/2023 11:35 EDT [facility] Blood CAPILLARY BLOOD / Unknown 08/11/2023 11:34 EDT 08/11/2023 11:35 EDT Aura Howell TABLET COATER POINT OF CARE TEST O RDERABLES Performing Organization Address [facility]/ZIP Co de Phone Number [facility] [address] [place] [address] * (ABNORMAL) POCT GLUCOSE, INTERFACED (08/11/2023 8:29 EDT) Glucose, POC 174(H) 70 - 100 mg/dL 08/11/2023 8:30 EDT [facility] HN LAB POC COMMENT (GLUCOSE) Test Performed by Nursing Services 08/11/2023 8:30 EDT [facility] Blood CAPILLARY BLOOD / Unknown 08/11/2023 8:29 EDT 08/11/2023 8:30 EDT Aura Howell TABLET COATER POINT OF CARE TEST O RDERABLES Performing Organization Address [facility] Co de Phone Number [facility] [address] [place] [address] * (ABNORMAL) POCT GLUCOSE, INTERFACED (08/10/2023 21:40 EDT) Glucose, POC 141(H) 70 - 100 mg/dL 08/10/2023 21:41 EDT [facility] HN LAB POC COMMENT (GLUCOSE) Test Performed by Nursing Services 08/10/2023 21:41 EDT [facility] Blood CAPILLARY BLOOD / Unknown 08/10/2023 21:40 EDT 08/10/2023 21:41 EDT Aura Howell NP POINT OF CARE TEST O RDERABLES Performing Organization Address [facility] Co de Phone Number [facility] [address], [place] [phone] * (ABNORMAL) POCT GLUCOSE, INTERFACED (08/10/2023 18:22 EDT) Glucose, POC 157(H) 70 - 100 mg/dL 08/10/2023 18:23 EDT [facility] HN LAB POC COMMENT (GLUCOSE) Test Performed by Nursing Services 08/10/2023 18:23 EDT [facility] Blood CAPILLARY BLOOD / Unknown 08/10/2023 18:22 EDT 08/10/2023 18:23 EDT Aura Howell TABLET COATER POINT OF CARE TEST O RDERABLES Performing Organization Address [facility]/ZIP Co de Phone Number [facility] [address] [place] [address] * (ABNORMAL) POCT GLUCOSE, INTERFACED (08/10/2023 11:27 EDT) Glucose, POC 123(H) 70 - 100 mg/dL 08/10/2023 11:29 EDT [facility] HN LAB POC COMMENT (GLUCOSE) Test Performed by Nursing Services 08/10/2023 11:29 EDT [facility] Blood CAPILLARY BLOOD / Unknown 08/10/2023 11:27 EDT 08/10/2023 11:29 EDT Aura Howell TABLET COATER POINT OF CARE TEST O RDERABLES Performing Organization Address [facility] Co de Phone Number [facility] [address] [place] [address] * (ABNORMAL) POCT GLUCOSE, INTERFACED (08/10/2023 8:07 EDT) Glucose, POC 152(H) 70 - 100 mg/dL 08/10/2023 8:10 EDT [facility] HN LAB POC COMMENT (GLUCOSE) Test Performed by Nursing Services 08/10/2023 8:10 EDT [facility] Blood CAPILLARY BLOOD / Unknown 08/10/2023 8:07 EDT 08/10/2023 8:10 EDT Aura Howell TABLET COATER POINT OF CARE TEST O RDERABLES Performing Organization Address City/[facility]/ZIP Co de Phone Number [facility] [address], [place] [phone] * (ABNORMAL) POCT GLUCOSE, INTERFACED (08/09/2023 20:27 EDT) Glucose, POC 135(H) 70 - 100 mg/dL 08/09/2023 20:29 EDT [facility] HN LAB POC COMMENT (GLUCOSE) Test Performed by Nursing Services 08/09/2023 20:29 EDT [facility] Blood CAPILLARY BLOOD / Unknown 08/09/2023 20:27 EDT 08/09/2023 20:29 EDT Aura Altman Lynda TABLET COATER POINT OF CARE TEST O RDERABLES Performing Organization Address City/[facility]/ZIP Co de Phone Number [facility] [address], [place] [phone] * (ABNORMAL) POCT GLUCOSE, INTERFACED (08/09/2023 18:00 EDT) Glucose, POC 115(H) 70 - 100 mg/dL 08/09/2023 18:01 EDT [facility] HN LAB POC COMMENT (GLUCOSE) Test Performed by Nursing Services 08/09/2023 18:01 EDT [facility] Blood CAPILLARY BLOOD / Unknown 08/09/2023 18:00 EDT 08/09/2023 18:01 EDT Aura Howell TABLET COATER POINT OF CARE TEST O RDERABLES Performing Organization Address [facility] Co de Phone Number [facility] [address] [place] [address] * (ABNORMAL) POCT GLUCOSE, INTERFACED (08/09/2023 11:44 EDT) Glucose, POC 152(H) 70 - 100 mg/dL 08/09/2023 11:45 EDT [facility] HN LAB POC COMMENT (GLUCOSE) Test Performed by Nursing Services 08/09/2023 11:45 EDT [facility] Blood CAPILLARY BLOOD / Unknown 08/09/2023 11:44 EDT 08/09/2023 11:45 EDT Aura Howell TABLET COATER POINT OF CARE TEST O RDERABLES Performing Organization Address City/[facility]/ZIP Co de Phone Number [facility] [address], [place] [phone] * (ABNORMAL) POCT GLUCOSE, INTERFACED (08/09/2023 8:52 EDT) Glucose, POC 193(H) 70 - 100 mg/dL 08/09/2023 8:53 EDT [facility] HN LAB POC COMMENT (GLUCOSE) Test Performed by Nursing Services 08/09/2023 8:53 EDT [facility] Blood CAPILLARY BLOOD / Unknown 08/09/2023 8:52 EDT 08/09/2023 8:53 EDT Aura Howell TABLET COATER POINT OF CARE TEST O LORENAERAMICHAEL Performing Organization Address [facility] Co de Phone Number [facility] [address], [place] [phone] * (ABNORMAL) POCT GLUCOSE, INTERFACED (08/08/2023 19:45 EDT) Glucose, POC 180(H) 70 - 100 mg/dL 08/08/2023 19:46 EDT [facility] HN LAB POC COMMENT (GLUCOSE) Test Performed by Nursing Services 08/08/2023 19:46 EDT [facility] Blood CAPILLARY BLOOD / Unknown 08/08/2023 19:45 EDT 08/08/2023 19:46 EDT Aura Howell TABLET COATER POINT OF CARE TEST O NANCY Performing Organization Address City/[facility]/ZIP Co de Phone Number [facility] [address], [place] [phone] * (ABNORMAL) POCT GLUCOSE, INTERFACED (08/08/2023 16:48 EDT) Glucose, POC 182(H) 70 - 100 mg/dL 08/08/2023 16:49 EDT [facility] HN LAB POC COMMENT (GLUCOSE) Test Performed by Nursing Services 08/08/2023 16:49 EDT [facility] Blood CAPILLARY BLOOD / Unknown 08/08/2023 16:48 EDT 08/08/2023 16:49 EDT Aura Howell TABLET COATER POINT OF CARE TEST O LORENAERAMICHAEL Performing Organization Address [facility] Co de Phone Number [facility] [address] [place] [address] * (ABNORMAL) POCT GLUCOSE, INTERFACED (08/08/2023 12:37 EDT) Glucose, POC 167(H) 70 - 100 mg/dL 08/08/2023 12:38 EDT [facility] HN LAB POC COMMENT (GLUCOSE) Test Performed by Nursing Services 08/08/2023 12:38 EDT [facility] Blood CAPILLARY BLOOD / Unknown 08/08/2023 12:37 EDT 08/08/2023 12:38 EDT Aura Altman Lynda TABLET COATER POINT OF CARE TEST O LORENAYUAN Performing Organization Address [facility] de Phone Number [facility] [address] [place] [address] * ECG REPORT - SCANNED (08/08/2023 11:03 EDT) 08/08/2023 11:0 3 EDT Scan 2 Process Designer PROCEDURE/MINOR VI GICAL ORDERABLES * (ABNORMAL) POCT GLUCOSE, INTERFACED (08/08/2023 7:23 EDT) Glucose, POC 158(H) 70 - 100 mg/dL 08/08/2023 7:24 EDT [facility] HN LAB POC COMMENT (GLUCOSE) Test Performed by Nursing Services 08/08/2023 7:24 EDT [facility] Blood CAPILLARY BLOOD / Unknown 08/08/2023 7:23 EDT 08/08/2023 7:24 EDT Aura Howell TABLET COATER POINT OF CARE TEST O RDERABLES [facility] [address] [place] [address] * (ABNORMAL) COMPLETE BLOOD COUNT AND DIFFERENTIAL (08/08/2023 6:54 EDT) WBC 8.24 4.00 - 12.40 K/cmm 08/08/2023 7:11 [facility] RBC 3.37(L) 3.86 - 5.04 M/cmm 08/08/2023 7:11 [facility] Hemoglobin 9.4(L) 11.6 - 15.2 g/dL 08/08/2023 7:11 [facility] HCT 27.7(L) 34.9 - 44.4 % 08/08/2023 7:11 [facility] MCV 82 81 - 98 fL 08/08/2023 7:11 [facility] MCH 27.9 26.7 - 33.3 pg 08/08/2023 7:11 [facility] MCHC 33.9 32.1 - 35.9 g/dL 08/08/2023 7:11 [facility] RDW-CV 13.6 <14.7 % 08/08/2023 7:11 [facility] RDW-SD 41.0 <50.4 fl 08/08/2023 7:11 [facility] PLT 314 141 - 377 K/cmm 08/08/2023 7:11 [facility] MPV 9.9 9.5 - 12.7 fL 08/08/2023 7:11 [facility] % Neutrophils 60.1 % 08/08/2023 7:11 [facility] % Lymphocytes 27.4 % 08/08/2023 7:11 [facility] % Monocytes 7.0 % 08/08/2023 7:11 [facility] % Eosinophils 3.4 % 08/08/2023 7:11 [facility] % Basophils 0.6 % 08/08/2023 7:11 [facility] % Immature Grans 1.5 % 08/08/19 7:11 [facility] Absolute Neutrophils 4.95 2.20 - 8.85 K/cmm 08/08/2023 7:11 [facility] Absolute Lymphocytes 2.26 1.09 - 3.30 K/cmm 08/08/2023 7:11 [facility] Absolute Monocytes 0.58 0.10 - 0.80 K/cmm 08/08/2023 7:11 [facility] Absolute Eosinophils 0.28 0.03 - 0.61 K/cmm 08/08/2023 7:11 [facility] ABS Basophils 0.05 0.01 - 0.11 K/cmm 08/08/2023 7:11 [facility] Absolute Immature Grans 0.12(H) 0.00 - 0.06 K/cmm 08/08/2023 7:11 [facility] Type of Differential: Auto 08/08/2023 7:11 [facility] Blood VENOUS BLOOD / Unknown Venipuncture / Unknown 08/08/2023 6:54 EDT 08/08/2023 7:00 EDT Joan Menon MD PACKAGES & DNA PROBE ORDERABLES [facility] [address] [place] [phone] * (ABNORMAL) BASIC METABOLIC PANEL (BMP) (08/08/2023 6:54 EDT) Sodium 140 136 - 145 mmol/L 08/08/2023 7:41 [facility] Potassium 3.8 3.5 - 5.0 mmol/L 08/08/2023 7:41 [facility] Chloride 108 96 - 110 mmol/L 08/08/2023 7:41 [facility] CO2 Total 20(L) 22 - 32 mmol/L 08/08/2023 7:41 EDT [facility] Anion Gap 12 5 - 14 mmol/L 08/08/2023 7:41 EDT [facility] Glucose 168(H) 70 - 99 mg/dl 08/08/2023 7:41 EDT [facility] Calcium 10.1 8.5 - 10.5 mg/dL 08/08/2023 7:41 T [facility] BUN 12 10 - 26 mg/dL 08/08/2023 7:41 T [facility] Creatinine 0.38(L) 0.52 - 1.04 mg/dL 08/08/2023 7:41 T [facility] eGFR 120 >60 mL/min/1.73 m2 08/08/2023 7:41 T [facility] Blood VENOUS BLOOD / Unknown Venipuncture / Unknown 08/08/2023 6:54 EDT 08/08/2023 7:05 EDT Joan Menon MD CHEMISTRY & BLOOD GA S ORDERABLES [facility] [address] [place] [address] * (ABNORMAL) POCT GLUCOSE, INTERFACED (08/07/2023 21:03 EDT) Glucose, POC 164(H) 70 - 100 mg/dL 08/07/2023 21:04 EDT [facility] HN LAB POC COMMENT (GLUCOSE) Test Performed by Nursing Services 08/07/2023 21:04 EDT [facility] Blood CAPILLARY BLOOD / Unknown 08/07/2023 21:03 EDT 08/07/2023 21:04 EDT Moo Monique MD POINT OF CARE TEST ORDERABLES Performing Organization Address City/[facility]/ZIP Co de Phone Number [facility] [address] [place] [address] * (ABNORMAL) POCT GLUCOSE, INTERFACED (08/07/2023 18:35 EDT) Glucose, POC 171(H) 70 - 100 mg/dL 08/07/2023 18:36 EDT [facility] HN LAB POC COMMENT (GLUCOSE) Test Performed by Nursing Services 08/07/2023 18:36 EDT [facility] Blood CAPILLARY BLOOD / Unknown 08/07/2023 18:35 EDT 08/07/2023 18:36 EDT Arua Howell TABLET COATER POINT OF CARE TEST O RDERABLES Performing Organization Address [facility] Co de Phone Number [facility] [address], [place] [phone] * (ABNORMAL) POCT GLUCOSE, INTERFACED (08/07/2023 16:53 EDT) Glucose, POC 168(H) 70 - 100 mg/dL 08/07/2023 16:55 EDT [facility] HN LAB POC COMMENT (GLUCOSE) Test Performed by Nursing Services 08/07/2023 16:55 EDT [facility] Blood CAPILLARY BLOOD / Unknown 08/07/2023 16:53 EDT 08/07/2023 16:55 EDT Aura Howell TABLET COATER POINT OF CARE TEST O RDERABLES Performing Organization Address City/[facility]/ZIP Co de Phone Number [facility] [address] [place] [phone] * (ABNORMAL) POCT GLUCOSE, INTERFACED (08/07/2023 12:55 EDT) Glucose, POC 136(H) 70 - 100 mg/dL 08/07/2023 12:56 EDT [facility] HN LAB POC COMMENT (GLUCOSE) Test Performed by Nursing Services 08/07/2023 12:56 EDT [facility] Blood CAPILLARY BLOOD / Unknown 08/07/2023 12:55 EDT 08/07/2023 12:56 EDT Moo Monique MD POINT OF CARE TEST ORDERABLES Performing Organization Address [facility] Co de Phone Number [facility] [address] [place] [address] * (ABNORMAL) POCT GLUCOSE, INTERFACED (08/07/2023 10:19 EDT) Glucose, POC 189(H) 70 - 100 mg/dL 08/07/2023 10:20 EDT [facility] HN LAB POC COMMENT (GLUCOSE) Test Performed by Nursing Services 08/07/2023 10:20 EDT [facility] Blood CAPILLARY BLOOD / Unknown 08/07/2023 10:19 EDT 08/07/2023 10:20 EDT Aura Howell NP POINT OF CARE TEST O NANCY Performing Organization Address [facility] Co de Phone Number [facility] [address] [place] [address] * (ABNORMAL) POCT GLUCOSE, INTERFACED (08/07/2023 9:15 EDT) Glucose, POC 167(H) 70 - 100 mg/dL 08/07/2023 9:16 EDT [facility] HN LAB POC COMMENT (GLUCOSE) Test Performed by Nursing Services 08/07/2023 9:16 EDT [facility] Blood CAPILLARY BLOOD / Unknown 08/07/2023 9:15 EDT 08/07/2023 9:16 EDT Aura Howell NP POINT OF CARE TEST O LORENAERAMICHAEL Performing Organization Address [facility] Co de Phone Number [facility] [address] [place] [address] * (ABNORMAL) POCT GLUCOSE, INTERFACED (08/06/2023 21:37 EDT) Glucose, POC 154(H) 70 - 100 mg/dL 08/06/2023 21:46 EDT [facility] HN LAB POC COMMENT (GLUCOSE) Test Performed by Nursing Services 08/06/2023 21:46 EDT [facility] Blood CAPILLARY BLOOD / Unknown 08/06/2023 21:37 EDT 08/06/2023 21:46 EDT Aura Howell TABLET COATER POINT OF CARE TEST O RDERABLES Performing Organization Address [facility] Co de Phone Number [facility] [address], [place] [phone] * (ABNORMAL) POCT GLUCOSE, INTERFACED (08/06/2023 18:13 EDT) Glucose, POC 159(H) 70 - 100 mg/dL 08/06/2023 18:15 EDT [facility] HN LAB POC COMMENT (GLUCOSE) Test Performed by Nursing Services 08/06/2023 18:15 EDT [facility] Blood CAPILLARY BLOOD / Unknown 08/06/2023 18:13 EDT 08/06/2023 18:15 EDT Aura Howell TABLET COATER POINT OF CARE TEST O LORENAERAMICHAEL Performing Organization Address [facility] Co de Phone Number [facility] [address] [place] [address] * (ABNORMAL) POCT GLUCOSE, INTERFACED (08/06/2023 12:46 EDT) Glucose, POC 162(H) 70 - 100 mg/dL 08/06/2023 12:48 EDT [facility] HN LAB POC COMMENT (GLUCOSE) Test Performed by Nursing Services 08/06/2023 12:48 EDT [facility] Blood CAPILLARY BLOOD / Unknown 08/06/2023 12:46 EDT 08/06/2023 12:48 EDT Aura Howell TABLET COATER POINT OF CARE TEST O RDERABLES Performing Organization Address City/[facility]/ZIP Co de Phone Number [facility] [address] [place] [address] * (ABNORMAL) POCT GLUCOSE, INTERFACED (08/06/2023 7:32 EDT) Glucose, POC 186(H) 70 - 100 mg/dL 08/06/2023 7:33 EDT [facility] HN LAB POC COMMENT (GLUCOSE) Test Performed by Nursing Services 08/06/2023 7:33 EDT [facility] Blood CAPILLARY BLOOD / Unknown 08/06/2023 7:32 EDT 08/06/2023 7:33 EDT Aura Howell TABLET COATER POINT OF CARE TEST O RDERABLES Performing Organization Address [facility] Co de Phone Number [facility] [address], [place] [phone] * (ABNORMAL) POCT GLUCOSE, INTERFACED (08/05/2023 21:13 EDT) Glucose, POC 190(H) 70 - 100 mg/dL 08/05/2023 21:15 EDT [facility] HN LAB POC COMMENT (GLUCOSE) Test Performed by Nursing Services 08/05/2023 21:15 EDT [facility] Blood CAPILLARY BLOOD / Unknown 08/05/2023 21:13 EDT 08/05/2023 21:15 EDT Aura Howell TABLET COATER POINT OF CARE TEST O RDERABLES Performing Organization Address City/[facility]/ZIP Co de Phone Number [facility] [address], [place] [phone] * (ABNORMAL) POCT GLUCOSE, INTERFACED (08/05/2023 16:52 EDT) Glucose, POC 192(H) 70 - 100 mg/dL 08/05/2023 16:53 EDT [facility] HN LAB POC COMMENT (GLUCOSE) Test Performed by Nursing Services 08/05/2023 16:53 EDT [facility] Blood CAPILLARY BLOOD / Unknown 08/05/2023 16:52 EDT 08/05/2023 16:53 EDT Aura Howell TABLET COATER POINT OF CARE TEST O RDERABLES Performing Organization Address [facility]/ZIP Co de Phone Number [facility] [address] [place] [address] * (ABNORMAL) POCT GLUCOSE, INTERFACED (08/05/2023 11:25 EDT) Glucose, POC 140(H) 70 - 100 mg/dL 08/05/2023 11:27 EDT [facility] HN LAB POC COMMENT (GLUCOSE) Test Performed by Nursing Services 08/05/2023 11:27 EDT [facility] Blood CAPILLARY BLOOD / Unknown 08/05/2023 11:25 EDT 08/05/2023 11:27 EDT Aura Howell TABLET COATER POINT OF CARE TEST O RDERABLES Performing Organization Address [facility] Co de Phone Number [facility] [address] [place] [address] * (ABNORMAL) POCT GLUCOSE, INTERFACED (08/05/2023 7:32 EDT) Glucose, POC 169(H) 70 - 100 mg/dL 08/05/2023 7:33 EDT [facility] HN LAB POC COMMENT (GLUCOSE) Test Performed by Nursing Services 08/05/2023 7:33 EDT [facility] Blood CAPILLARY BLOOD / Unknown 08/05/2023 7:32 EDT 08/05/2023 7:33 EDT Aura Altman Lynda TABLET COATER POINT OF CARE TEST O RDERABLES Performing Organization Address [facility]/ZIP Co de Phone Number [facility] [address] [place] [address] * (ABNORMAL) COMPLETE BLOOD COUNT AND DIFFERENTIAL (08/05/2023 6:48 EDT) WBC 8.42 4.00 - 12.40 K/cmm 08/05/2023 7:21 [facility] RBC 3.38(L) 3.86 - 5.04 M/cmm 08/05/2023 7:21 [facility] Hemoglobin 9.4(L) 11.6 - 15.2 g/dL 08/05/2023 7:21 [facility] HCT 28.4(L) 34.9 - 44.4 % 08/05/2023 7:21 [facility] MCV 84 81 - 98 fL 08/05/2023 7:21 [facility] MCH 27.8 26.7 - 33.3 pg 08/05/2023 7:21 [facility] MCHC 33.1 32.1 - 35.9 g/dL 08/05/2023 7:21 [facility] RDW-CV 13.5 <14.7 % 08/05/2023 7:21 [facility] RDW-SD 41.9 <50.4 fl 08/05/2023 7:21 [facility] PLT 327 141 - 377 K/cmm 08/05/2023 7:21 [facility] MPV 10.0 9.5 - 12.7 fL 08/05/2023 7:21 [facility] % Neutrophils 61.5 % 08/05/2023 7:21 [facility] % Lymphocytes 25.5 % 08/05/2023 7:21 [facility] % Monocytes 7.7 % 08/05/2023 7:21 [facility] % Eosinophils 3.3 % 08/05/2023 7:21 [facility] % Basophils 0.6 % 08/05/2023 7:21 [facility] % Immature Grans 1.4 % 08/05/19 7:21 [facility] Absolute Neutrophils 5.17 2.20 - 8.85 K/cmm 08/05/2023 7:21 [facility] Absolute Lymphocytes 2.15 1.09 - 3.30 K/cmm 08/05/2023 7:21 [facility] Absolute Monocytes 0.65 0.10 - 0.80 K/cmm 08/05/2023 7:21 [facility] Absolute Eosinophils 0.28 0.03 - 0.61 K/cmm 08/05/2023 7:21 [facility] ABS Basophils 0.05 0.01 - 0.11 K/cmm 08/05/2023 7:21 [facility] Absolute Immature Grans 0.12(H) 0.00 - 0.06 K/cmm 08/05/2023 7:21 [facility] Type of Differential: Auto 08/05/2023 7:21 [facility] Blood VENOUS BLOOD / Unknown Venipuncture / Unknown 08/05/2023 6:48 EDT 08/05/2023 7:07 EDT Joan Menon MD PACKAGES & DNA PROBE ORDERABLES Performing Organization Address City/State/[facility] Co de Phone Number [facility] [address] [place] [address] * (ABNORMAL) BASIC METABOLIC PANEL (BMP) (08/05/2023 6:48 EDT) Sodium 137 136 - 145 mmol/L [facility]2023 [facility] Potassium 3.9 3.5 - 5.0 mmol/L 08/05/2023 7:39 [facility] Chloride 105 96 - 110 mmol/L 08/05/2023 7:39 [facility] CO2 Total 21(L) 22 - 32 mmol/L 08/05/2023 7:39 [facility] Anion Gap 11 5 - 14 mmol/L 08/05/2023 7:39 [facility] Glucose 157(H) 70 - 99 mg/dl 08/05/2023 7:39 EDT [facility] Calcium 10.1 8.5 - 10.5 mg/dL 08/05/2023 7:39 EDT [facility] BUN 13 10 - 26 mg/dL 08/05/2023 7:39 EDT [facility] Creatinine 0.43(L) 0.52 - 1.04 mg/dL 08/05/2023 7:39 EDT [facility] eGFR 116 >60 mL/min/1.73 m2 08/05/2023 7:39 EDT [facility] Blood VENOUS BLOOD / Unknown Venipuncture / Unknown 08/05/2023 6:48 EDT 08/05/2023 7:12 EDT Joan Menon MD CHEMISTRY & BLOOD GA S ORDERABLES Performing Organization Address [facility] Co de Phone Number [facility] [address] [place] [address] * (ABNORMAL) POCT GLUCOSE, INTERFACED (08/04/2023 21:24 EDT) Glucose, POC 180(H) 70 - 100 mg/dL 08/04/2023 21:25 EDT [facility] HN LAB POC COMMENT (GLUCOSE) Test Performed by Nursing Services 08/04/2023 21:25 EDT [facility] Blood CAPILLARY BLOOD / Unknown 08/04/2023 21:24 EDT 08/04/2023 21:25 EDT Aura Howell NP POINT OF CARE TEST O RDERABLES Performing Organization Address City/[facility]/ZIP Co de Phone Number [facility] [address] [place] [address] * (ABNORMAL) POCT GLUCOSE, INTERFACED (08/04/2023 18:38 EDT) Glucose, POC 165(H) 70 - 100 mg/dL 08/04/2023 18:40 EDT [facility] HN LAB POC COMMENT (GLUCOSE) Test Performed by Nursing Services 08/04/2023 18:40 EDT [facility] Blood CAPILLARY BLOOD / Unknown 08/04/2023 18:38 EDT 08/04/2023 18:40 EDT Aura Howell TABLET COATER POINT OF CARE TEST O RDERABLES Performing Organization Address City/[facility]/ZIP Co de Phone Number [facility] LAB[facility]ATORY SERVICES [address] [place] [address] * (ABNORMAL) POCT GLUCOSE, INTERFACED (08/04/2023 12:58 EDT) Glucose, POC 121(H) 70 - 100 mg/dL 08/04/2023 12:59 EDT [facility] HN LAB POC COMMENT (GLUCOSE) Test Performed by Nursing Services 08/04/2023 12:59 EDT [facility] Blood CAPILLARY BLOOD / Unknown 08/04/2023 12:58 EDT 08/04/2023 12:59 EDT Aura Howell TABLET COATER POINT OF CARE TEST O LORENAERAMICHAEL Performing Organization Address [facility] Co de Phone Number [facility] [address], [place] [phone] * (ABNORMAL) POCT GLUCOSE, INTERFACED (08/04/2023 7:51 EDT) Glucose, POC 194(H) 70 - 100 mg/dL 08/04/2023 7:53 EDT [facility] HN LAB POC COMMENT (GLUCOSE) Test Performed by Nursing Services 08/04/2023 7:53 EDT [facility] Blood CAPILLARY BLOOD / Unknown 08/04/2023 7:51 EDT 08/04/2023 7:52 EDT Aura Howell TABLET COATER POINT OF CARE TEST O RDERABLES Performing Organization Address City/[facility]/ZIP Co de Phone Number [facility] [address], [place] [address] * (ABNORMAL) POCT GLUCOSE, INTERFACED (08/03/2023 19:51 EDT) Glucose, POC 159(H) 70 - 100 mg/dL 08/03/2023 19:53 EDT [facility] HN LAB POC COMMENT (GLUCOSE) Test Performed by Nursing Services 08/03/2023 19:53 EDT [facility] Blood CAPILLARY BLOOD / Unknown 08/03/2023 19:51 EDT 08/03/2023 19:53 EDT Aura Howell TABLET COATER POINT OF CARE TEST O RDERAMICHAEL Performing Organization Address [facility]/ZIP Co de Phone Number [facility] [address], [place] [address] * (ABNORMAL) POCT GLUCOSE, INTERFACED (08/03/2023 18:04 EDT) Glucose, POC 173(H) 70 - 100 mg/dL 08/03/2023 18:05 EDT [facility] HN LAB POC COMMENT (GLUCOSE) Test Performed by Nursing Services 08/03/2023 18:05 EDT [facility] Blood CAPILLARY BLOOD / Unknown 08/03/2023 18:04 EDT 08/03/2023 18:05 EDT Aura Howell TABLET COATER POINT OF CARE TEST O NANCY [facility] [address], [place] [address] * (ABNORMAL) POCT GLUCOSE, INTERFACED (08/03/2023 11:29 EDT) Glucose, POC 126(H) 70 - 100 mg/dL 08/03/2023 11:30 EDT [facility] HN LAB POC COMMENT (GLUCOSE) Test Performed by Nursing Services 08/03/2023 11:30 EDT [facility] Blood CAPILLARY BLOOD / Unknown 08/03/2023 11:29 EDT 08/03/2023 11:30 EDT Aura Altman Lynda TABLET COATER POINT OF CARE TEST O RDERABLES Performing Organization Address City/[facility]/ZIP Co de Phone Number [facility] [address] [place] [address] * (ABNORMAL) POCT GLUCOSE, INTERFACED (08/03/2023 7:39 EDT) Glucose, POC 157(H) 70 - 100 mg/dL 08/03/2023 7:40 EDT [facility] HN LAB POC COMMENT (GLUCOSE) Test Performed by Nursing Services 08/03/2023 7:40 EDT [facility] Blood CAPILLARY BLOOD / Unknown 08/03/2023 7:39 EDT 08/03/2023 7:40 EDT Ayla Lynda TABLET COATER POINT OF CARE TEST O LORENAERABLES Performing Organization Address [facility] Co de Phone Number [facility] [address] [place] [address] * (ABNORMAL) POCT GLUCOSE, INTERFACED (2023 21:13 EDT) Glucose, POC 168(H) 70 - 100 mg/dL 2023 21:14 EDT [facility] HN LAB POC COMMENT (GLUCOSE) Test Performed by Nursing Services 2023 21:14 EDT [facility] Blood CAPILLARY BLOOD / Unknown 2023 21:13 EDT 2023 21:14 EDT Aura Altman Lynda TABLET COATER POINT OF CARE TEST O RDERABLES Performing Organization Address [facility] Co de Phone Number [facility] [address] [place] [address] * (ABNORMAL) POCT GLUCOSE, INTERFACED (2023 18:04 EDT) Glucose, POC 187(H) 70 - 100 mg/dL 2023 18:06 EDT [facility] HN LAB POC COMMENT (GLUCOSE) Test Performed by Nursing Services 2023 18:06 EDT [facility] Blood CAPILLARY BLOOD / Unknown 2023 18:04 EDT 2023 18:05 EDT Aura Howell TABLET COATER POINT OF CARE TEST O RDERABLES [facility] [address] [place] [address] * EKG 12-LEAD (2023 16:05 EDT) 2023 16:0 5 EDT Narrative [facility] EKG - 08/08/2023 10:55 EDT ? [facility] ? Test Date: ?2023 Pat Name: ? DELLA BROWNING ? Department: ?? [facility] [address] ? Room: ? B694 Gender: ? Female ? 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 Requested By: LYNETTE MANDEL Order Number: [id number] ? Reading : ?? SANTOS GOULD MD ? Measurements Intervals ?[place] ? Rate: ? 85 ? P: ?48 MS: ? 167 ?QRS: ?32 QRSD: ? 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: [id number] : 1970 Requested By: LYNETTE MANDEL Order Number: [id number] Reading MD: SANTOS GOULD MD Measurements Intervals [place] Rate: 85 P: 48 MS: 167 QRS: 32 QRSD: 83 T: 71 [...] Logan Ojeda DO CARDIAC ECG ORDERABL ES Performing Organization Address City/[facility]/ZIP Co de Phone Number [facility] EKG * (ABNORMAL) POCT GLUCOSE, INTERFACED (2023 11:42 EDT) Glucose, POC 171(H) 70 - 100 mg/dL 2023 11:43 EDT [facility] HN LAB POC COMMENT (GLUCOSE) Test Performed by Nursing Services 2023 11:43 EDT [facility] Blood CAPILLARY BLOOD / Unknown 2023 11:42 EDT 2023 11:43 EDT Aura Howell TABLET COATER POINT OF CARE TEST O RDERABLES Performing Organization Address City/[facility]/ZIP Co de Phone Number [facility] [address] [place] [address] * (ABNORMAL) POCT GLUCOSE, INTERFACED (2023 7:52 EDT) Glucose, POC 176(H) 70 - 100 mg/dL 2023 7:52 EDT [facility] HN LAB POC COMMENT (GLUCOSE) Test Performed by Nursing Services 2023 7:52 EDT [facility] Blood CAPILLARY BLOOD / Unknown 2023 7:52 EDT 2023 7:52 EDT Aura Howell TABLET COATER POINT OF CARE TEST O RDERABLES Performing Organization Address [facility] Co de Phone Number [facility] [address] [place] [address] * (ABNORMAL) POCT GLUCOSE, INTERFACED (08/01/2023 22:07 EDT) Glucose, POC 178(H) 70 - 100 mg/dL 08/01/2023 22:08 EDT [facility] HN LAB POC COMMENT (GLUCOSE) Test Performed by Nursing Services 08/01/2023 22:08 EDT [facility] Blood CAPILLARY BLOOD / Unknown 08/01/2023 22:07 EDT 08/01/2023 22:08 EDT Aura Howell TABLET COATER POINT OF CARE TEST O LORENAERAMICHAEL Performing Organization Address [facility] de Phone Number [facility] [address] [place] [address] * (ABNORMAL) POCT GLUCOSE, INTERFACED (08/01/2023 17:33 EDT) Glucose, POC 194(H) 70 - 100 mg/dL 08/01/2023 17:35 EDT [facility] HN LAB POC COMMENT (GLUCOSE) Test Performed by Nursing Services 08/01/2023 17:35 EDT [facility] Blood CAPILLARY BLOOD / Unknown 08/01/2023 17:33 EDT 08/01/2023 17:35 EDT Aura Howell TABLET COATER POINT OF CARE TEST O RDERABLES Performing Organization Address [facility] de Phone Number [facility] [address] [place] [address] * (ABNORMAL) VAGINAL CTGC AND VAGINITIS/VAGINOSIS MOLECULAR DETECTION (08/01/2023 16:31 EDT) Franny glabrata Negative Negative 2023 13:31 EDT [facility] Trichomonas Vaginalis Negative Negative 2023 13:31 EDT [facility] BV (Bacterial vaginosis) Negative Negative 2023 13:31 EDT [facility] Neisseria gonorrhoeae Result Negative Negative 2023 13:31 EDT [facility] Chlamydia trachomatis Result Negative Negative 2023 13:31 EDT [facility] Franny Species Positive(A) Negative 08/02/19 13:31 EDT [facility] Swab VAGINAL STRUCTURE / Unknown Swab / Unknown 08/01/2023 16:31 EDT 08/01/2023 16:38 EDT Leesa Norwood PA-C MICROBIOLOGY - GE NERAL ORDERABLES Performing Organization Address City/[facility]/ZIP Co de Phone Number [facility] [address], [place] [phone] * (ABNORMAL) POCT GLUCOSE, INTERFACED (08/01/2023 11:24 EDT) Glucose, POC 169(H) 70 - 100 mg/dL 08/01/2023 11:25 EDT [facility] HN LAB POC COMMENT (GLUCOSE) Test Performed by Nursing Services 08/01/2023 11:25 EDT [facility] Blood CAPILLARY BLOOD / Unknown 08/01/2023 11:24 EDT 08/01/2023 11:25 EDT Logan Ojeda DO POINT OF CARE TEST O RDERABLES Performing Organization Address City/[facility]/ZIP Co de Phone Number [facility] [address], [place] [phone] * (ABNORMAL) POCT GLUCOSE, INTERFACED (08/01/2023 7:03 EDT) Glucose, POC 137(H) 70 - 100 mg/dL 08/01/2023 7:04 EDT [facility] HN LAB POC COMMENT (GLUCOSE) Test Performed by Nursing Services 08/01/2023 7:04 T [facility] Blood CAPILLARY BLOOD / Unknown 08/01/2023 7:03 EDT 08/01/2023 7:04 EDT Logan Ojeda DO POINT OF CARE TEST O RDERABLES Performing Organization Address City/State/[facility] Co de Phone Number [facility] [address] [place] [address] * (ABNORMAL) COMPLETE BLOOD COUNT AND DIFFERENTIAL (08/01/2023 6:15 EDT) WBC 9.42 4.00 - 12.40 K/cmm 08/01/2023 6:53 [facility] RBC 3.04(L) 3.86 - 5.04 M/cmm 08/01/2023 6:53 [facility] Hemoglobin 8.6(L) 11.6 - 15.2 g/dL 08/01/2023 6:53 [facility] HCT 26.1(L) 34.9 - 44.4 % 08/01/2023 6:53 [facility] MCV 86 81 - 98 fL 08/01/2023 6:53 [facility] MCH 28.3 26.7 - 33.3 pg 08/01/2023 6:53 [facility] MCHC 33.0 32.1 - 35.9 g/dL 08/01/2023 6:53 [facility] RDW-CV 13.8 <14.7 % 08/01/2023 6:53 [facility] RDW-SD 43.4 <50.4 fl 08/01/2023 6:53 [facility] PLT 355 141 - 377 K/cmm 08/01/2023 6:53 [facility] MPV 9.8 9.5 - 12.7 fL 08/01/2023 6:53 [facility] % Neutrophils 66.2 % 08/01/2023 6:53 [facility] % Lymphocytes 23.2 % 08/01/2023 6:53 [facility] % Monocytes 6.5 % 08/01/2023 6:53 [facility] % Eosinophils 2.3 % 08/01/2023 6:53 [facility] % Basophils 0.4 % 08/01/2023 6:53 [facility] % Immature Grans 1.4 % 08/01/19 6:53 [facility] Absolute Neutrophils 6.23 2.20 - 8.85 K/cmm 08/01/2023 6:53 [facility] Absolute Lymphocytes 2.19 1.09 - 3.30 K/cmm 08/01/2023 6:53 [facility] Absolute Monocytes 0.61 0.10 - 0.80 K/cmm 08/01/2023 6:53 [facility] Absolute Eosinophils 0.22 0.03 - 0.61 K/cmm 08/01/2023 6:53 [facility] ABS Basophils 0.04 0.01 - 0.11 K/cmm 08/01/2023 6:53 [facility] Absolute Immature Grans 0.13(H) 0.00 - 0.06 K/cmm 08/01/2023 6:53 [facility] Type of Differential: Auto 08/01/2023 6:53 [facility] Blood VENOUS BLOOD / Unknown Venipuncture / Unknown 08/01/2023 6:15 EDT 08/01/2023 6:35 EDT Joan Menon MD PACKAGES & DNA PROBE ORDERABLES [facility] [address] [place] [address] * (ABNORMAL) BASIC METABOLIC PANEL (BMP) (08/01/2023 6:15 EDT) Sodium 136 136 - 145 mmol/L 08/01/2023 7:10 [facility] Potassium 4.6 3.5 - 5.0 mmol/L 08/01/2023 7:10 [facility] Chloride 101 96 - 110 mmol/L 08/01/2023 7:10 [facility] CO2 Total 21(L) 22 - 32 mmol/L 08/01/2023 7:10 [facility] Anion Gap 14 5 - 14 mmol/L 08/01/2023 7:10 [facility] Glucose 132(H) 70 - 99 mg/dl 08/01/2023 7:10 [facility] Calcium 9.7 8.5 - 10.5 mg/dL 08/01/2023 7:10 [facility] BUN 18 10 - 26 mg/dL 08/01/2023 7:10 [facility] Creatinine 0.54 0.52 - 1.04 mg/dL 08/01/2023 7:10 [facility] eGFR 111 >60 mL/min/1.73 m2 08/01/2023 7:10 [facility] Blood VENOUS BLOOD / Unknown Venipuncture / Unknown 08/01/2023 6:15 EDT 08/01/2023 6:39 EDT Joan Menon MD CHEMISTRY & BLOOD GA S ORDERABLES [facility] [address] [place] [address] * (ABNORMAL) POCT GLUCOSE, INTERFACED (08/01/2023 4:07 EDT) Glucose, POC 153(H) 70 - 100 mg/dL 08/01/2023 4:09 T [facility] HN LAB POC COMMENT (GLUCOSE) Test Performed by Nursing Services 08/01/2023 4:09 [facility] Blood CAPILLARY BLOOD / Unknown 08/01/2023 4:07 EDT 08/01/2023 4:09 EDT Logan Ojeda DO POINT OF CARE TEST O RDERABLES Performing Organization Address City/[facility]/ZIP Co de Phone Number [facility] [address] [place] [address] * (ABNORMAL) POCT GLUCOSE, INTERFACED (07/31/2023 21:31 EDT) Glucose, POC 178(H) 70 - 100 mg/dL 07/31/2023 21:31 EDT [facility] HN LAB POC COMMENT (GLUCOSE) Test Performed by Nursing Services 07/31/2023 21:31 EDT [facility] Blood CAPILLARY BLOOD / Unknown 07/31/2023 21:31 EDT 07/31/2023 21:31 EDT Moo Monique MD POINT OF CARE TEST ORDERABLES Performing Organization Address [facility]/ZIP Co de Phone Number [facility] [address] [place] [address] * (ABNORMAL) POCT GLUCOSE, INTERFACED (07/31/2023 18:06 EDT) Glucose, POC 144(H) 70 - 100 mg/dL 07/31/2023 18:08 EDT [facility] HN LAB POC COMMENT (GLUCOSE) Test Performed by Nursing Services 07/31/2023 18:08 EDT [facility] Blood CAPILLARY BLOOD / Unknown 07/31/2023 18:06 EDT 07/31/2023 18:08 EDT Moo Monique MD POINT OF CARE TEST ORDERABLES Performing Organization Address [facility]/ZIP Co de Phone Number [facility] [address] [place] [address] * (ABNORMAL) POCT GLUCOSE, INTERFACED (07/31/2023 14:33 EDT) Glucose, POC 125(H) 70 - 100 mg/dL 07/31/2023 14:34 EDT [facility] HN LAB POC COMMENT (GLUCOSE) Test Performed by Nursing Services 07/31/2023 14:34 EDT [facility] Blood CAPILLARY BLOOD / Unknown 07/31/2023 14:33 EDT 07/31/2023 14:34 EDT Loften Fansler DO POINT OF CARE TEST O RDERABLES Performing Organization Address [facility]/ZIP Co de Phone Number [facility] [address] [place] [address] * (ABNORMAL) POCT GLUCOSE, INTERFACED (07/31/2023 12:30 EDT) Glucose, POC 178(H) 70 - 100 mg/dL 07/31/2023 12:32 EDT [facility] HN LAB POC COMMENT (GLUCOSE) Test Performed by Nursing Services 07/31/2023 12:32 EDT [facility] Blood CAPILLARY BLOOD / Unknown 07/31/2023 12:30 EDT 07/31/2023 12:32 EDT Loften Fansler DO POINT OF CARE TEST O RDERABLES Performing Organization Address City/[facility]/ZIP Co de Phone Number [facility] [address], [place] [phone] * (ABNORMAL) POCT GLUCOSE, INTERFACED (07/31/2023 9:57 EDT) Glucose, POC 176(H) 70 - 100 mg/dL 07/31/2023 9:58 EDT [facility] HN LAB POC COMMENT (GLUCOSE) Test Performed by Nursing Services 07/31/2023 9:58 EDT [facility] Blood CAPILLARY BLOOD / Unknown 07/31/2023 9:57 EDT 07/31/2023 9:58 EDT Moo Monique MD POINT OF CARE TEST ORDERABLES [facility] [address], [place] [phone] * (ABNORMAL) POCT GLUCOSE, INTERFACED (07/31/2023 8:48 EDT) Glucose, POC 151(H) 70 - 100 mg/dL 07/31/2023 8:49 EDT [facility] HN LAB POC COMMENT (GLUCOSE) Test Performed by Nursing Services 07/31/2023 8:49 EDT [facility] Blood CAPILLARY BLOOD / Unknown 07/31/2023 8:48 EDT 07/31/2023 8:49 EDT Moo Monique MD POINT OF CARE TEST ORDERABLES Performing Organization Address City/[facility]/ZIP Co de Phone Number [facility] [address] [place] [address] * (ABNORMAL) POCT GLUCOSE, INTERFACED (07/30/2023 21:20 EDT) Glucose, POC 187(H) 70 - 100 mg/dL 07/30/2023 21:25 EDT [facility] HN LAB POC COMMENT (GLUCOSE) Test Performed by Nursing Services 07/30/2023 21:25 EDT [facility] Blood CAPILLARY BLOOD / Unknown 07/30/2023 21:20 EDT 07/30/2023 21:25 EDT Nabila English NP POINT OF CARE TEST ORDERABLES [facility] [address], [place] [phone] * (ABNORMAL) POCT GLUCOSE, INTERFACED (07/30/2023 17:01 EDT) Glucose, POC 176(H) 70 - 100 mg/dL 07/30/2023 17:02 EDT [facility] HN LAB POC COMMENT (GLUCOSE) Test Performed by Nursing Services 07/30/2023 17:02 EDT [facility] Blood CAPILLARY BLOOD / Unknown 07/30/2023 17:01 EDT 07/30/2023 17:02 EDT Nabila English NP POINT OF CARE TEST ORDERABLES Performing Organization Address City/[facility] Co de Phone Number [facility] [address] [place] [address] * (ABNORMAL) POCT GLUCOSE, INTERFACED (07/30/2023 12:40 EDT) Glucose, POC 183(H) 70 - 100 mg/dL 07/30/2023 12:41 EDT [facility] HN LAB POC COMMENT (GLUCOSE) Test Performed by Nursing Services 07/30/2023 12:41 EDT [facility] Blood CAPILLARY BLOOD / Unknown 07/30/2023 12:40 EDT 07/30/2023 12:41 EDT Tai Azar MD POINT OF CARE TEST ORDERABLES Performing Organization Address [facility] de Phone Number [facility] [address] [place] [address] * (ABNORMAL) POCT GLUCOSE, INTERFACED (07/30/2023 8:22 EDT) Glucose, POC 177(H) 70 - 100 mg/dL 07/30/2023 8:24 EDT [facility] HN LAB POC COMMENT (GLUCOSE) Test Performed by Nursing Services 07/30/2023 8:24 EDT [facility] Blood CAPILLARY BLOOD / Unknown 07/30/2023 8:22 EDT 07/30/2023 8:24 EDT Tia Azar MD POINT OF CARE TEST ORDERABLES Performing Organization Address City/[facility]/ZIP Co de Phone Number [facility] [address], [place] [phone] * (ABNORMAL) POCT GLUCOSE, INTERFACED (07/29/2023 20:14 EDT) Glucose, POC 166(H) 70 - 100 mg/dL 07/29/2023 20:15 EDT [facility] HN LAB POC COMMENT (GLUCOSE) Test Performed by Nursing Services 07/29/2023 20:15 EDT [facility] Blood CAPILLARY BLOOD / Unknown 07/29/2023 20:14 EDT 07/29/2023 20:15 EDT Tai Azar MD POINT OF CARE TEST ORDERABLES Performing Organization Address [facility] Co de Phone Number [facility] [address], [place] [phone] * (ABNORMAL) POCT GLUCOSE, INTERFACED (07/29/2023 18:13 EDT) Glucose, POC 188(H) 70 - 100 mg/dL 07/29/2023 18:16 EDT [facility] HN LAB POC COMMENT (GLUCOSE) Test Performed by Nursing Services 07/29/2023 18:16 EDT [facility] Blood CAPILLARY BLOOD / Unknown 07/29/2023 18:13 EDT 07/29/2023 18:16 EDT Nabila English NP POINT OF CARE TEST ORDERABLES Performing Organization Address City/[facility]/ZIP Co de Phone Number [facility] [address], [place] [phone] * POC US VAT LINE PLACEMENT (07/29/2023 15:04 EDT) Narrative 07/29/2023 15:04 EDT This is a non-reportable exam. Moo Monique MD IMG US POC ORDERABL ES * (ABNORMAL) POCT GLUCOSE, INTERFACED (07/29/2023 11:20 EDT) Glucose, POC 173(H) 70 - 100 mg/dL 07/29/2023 11:22 EDT [facility] HN LAB POC COMMENT (GLUCOSE) Test Performed by Nursing Services 07/29/2023 11:22 T [facility] Blood CAPILLARY BLOOD / Unknown 07/29/2023 11:20 EDT 07/29/2023 11:22 EDT Tai Azar MD POINT OF CARE TEST ORDERABLES [facility] [address] [place] [id number] * (ABNORMAL) COMPLETE BLOOD COUNT AND DIFFERENTIAL (07/29/2023 7:50 EDT) WBC 6.95 4.00 - 12.40 K/cmm 07/29/2023 8:20 [facility] RBC 3.02(L) 3.86 - 5.04 M/cmm 07/29/2023 8:20 [facility] Hemoglobin 8.5(L) 11.6 - 15.2 g/dL 07/29/2023 8:20 [facility] HCT 25.0(L) 34.9 - 44.4 % 07/29/2023 8:20 [facility] MCV 83 81 - 98 fL 07/29/2023 8:20 [facility] MCH 28.1 26.7 - 33.3 pg 07/29/2023 8:20 [facility] MCHC 34.0 32.1 - 35.9 g/dL 07/29/2023 8:20 [facility] RDW-CV 13.8 <14.7 % 07/29/2023 8:20 [facility] RDW-SD 41.6 <50.4 fl 07/29/2023 8:20 [facility] PLT 337 141 - 377 K/cmm 07/29/2023 8:20 [facility] MPV 9.9 9.5 - 12.7 fL 07/29/2023 8:20 [facility] % Neutrophils 54.0 % 07/29/2023 8:20 [facility] % Lymphocytes 32.7 % 07/29/2023 8:20 [facility] % Monocytes 8.2 % 07/29/2023 8:20 [facility] % Eosinophils 2.6 % 07/29/2023 8:20 [facility] % Basophils 0.9 % 07/29/2023 8:20 [facility] % Immature Grans 1.6 % 07/29/19 8:20 [facility] Absolute Neutrophils 3.76 2.20 - 8.85 K/cmm 07/29/2023 8:20 [facility] Absolute Lymphocytes 2.27 1.09 - 3.30 K/cmm 07/29/2023 8:20 [facility] Absolute Monocytes 0.57 0.10 - 0.80 K/cmm 07/29/2023 8:20 [facility] Absolute Eosinophils 0.18 0.03 - 0.61 K/cmm 07/29/2023 8:20 [facility] ABS Basophils 0.06 0.01 - 0.11 K/cmm 07/29/2023 8:20 [facility] Absolute Immature Grans 0.11(H) 0.00 - 0.06 K/cmm 07/29/2023 8:20 [facility] Type of Differential: Auto 07/29/2023 8:20 [facility] Blood VENOUS BLOOD / Unknown Venipuncture / Unknown 07/29/2023 7:50 EDT 07/29/2023 8:01 EDT Joan Menon MD PACKAGES & DNA PROBE ORDERABLES [facility] [address] [place] [address] * (ABNORMAL) BASIC METABOLIC PANEL (BMP) (07/29/2023 7:50 EDT) Sodium 130(L) 136 - 145 mmol/L 07/29/2023 8:36 EDT [facility] Potassium 4.3 3.5 - 5.0 mmol/L 07/29/2023 8:36 [facility] Chloride 100 96 - 110 mmol/L 07/29/2023 8:36 [facility] CO2 Total 17(L) 22 - 32 mmol/L 07/29/2023 8:36 [facility] Anion Gap 13 5 - 14 mmol/L 07/29/2023 8:36 [facility] Glucose 218(H) 70 - 99 mg/dl 07/29/2023 8:36 [facility] Calcium 9.5 8.5 - 10.5 mg/dL 07/29/2023 8:36 [facility] BUN 20 10 - 26 mg/dL 07/29/2023 8:36 [facility] Creatinine 0.45(L) 0.52 - 1.04 mg/dL 07/29/2023 8:36 [facility] eGFR 116 >60 mL/min/1.73 m2 07/29/2023 8:36 [facility] Blood VENOUS BLOOD / Unknown Venipuncture / Unknown 07/29/2023 7:50 EDT 07/29/2023 8:02 EDT Joan Menon MD CHEMISTRY & BLOOD GA S ORDERABLES [facility] [address] [place] [address] * (ABNORMAL) POCT GLUCOSE, INTERFACED (07/29/2023 7:11 EDT) Glucose, POC 184(H) 70 - 100 mg/dL 07/29/2023 7:12 EDT [facility] HN LAB POC COMMENT (GLUCOSE) Test Performed by Nursing Services 07/29/2023 7:12 EDT [facility] Blood CAPILLARY BLOOD / Unknown 07/29/2023 7:11 EDT 07/29/2023 7:12 EDT Nabila English NP POINT OF CARE TEST ORDERABLES Performing Organization Address City/[facility]/ZIP Co de Phone Number [facility] [address] [place] [address] * (ABNORMAL) POCT GLUCOSE, INTERFACED (07/28/2023 21:47 EDT) Glucose, POC 159(H) 70 - 100 mg/dL 07/28/2023 21:48 EDT [facility] HN LAB POC COMMENT (GLUCOSE) Test Performed by Nursing Services 07/28/2023 21:48 EDT [facility] Blood CAPILLARY BLOOD / Unknown 07/28/2023 21:47 EDT 07/28/2023 21:48 EDT Nabila English NP POINT OF CARE TEST ORDERABLES Performing Organization Address City/[facility]/ZIP Co de Phone Number [facility] [address], [place] [phone] * (ABNORMAL) POCT GLUCOSE, INTERFACED (07/28/2023 18:03 EDT) Glucose, POC 139(H) 70 - 100 mg/dL 07/28/2023 18:04 EDT [facility] HN LAB POC COMMENT (GLUCOSE) Test Performed by Nursing Services 07/28/2023 18:04 EDT [facility] Blood CAPILLARY BLOOD / Unknown 07/28/2023 18:03 EDT 07/28/2023 18:04 EDT Nabila English NP POINT OF CARE TEST ORDERABLES [facility] [address], [place] [phone] * (ABNORMAL) POCT GLUCOSE, INTERFACED (07/28/2023 11:49 EDT) Glucose, POC 129(H) 70 - 100 mg/dL 07/28/2023 11:50 EDT [facility] HN LAB POC COMMENT (GLUCOSE) Test Performed by Nursing Services 07/28/2023 11:50 EDT [facility] Blood CAPILLARY BLOOD / Unknown 07/28/2023 11:49 EDT 07/28/2023 11:50 EDT Tai Azar MD POINT OF CARE TEST ORDERABLES Performing Organization Address City/[facility]/ZIP Co de Phone Number [facility] [address], [place] [phone] * (ABNORMAL) POCT GLUCOSE, INTERFACED (07/28/2023 7:31 EDT) Glucose, POC 127(H) 70 - 100 mg/dL 07/28/2023 7:32 EDT [facility] HN LAB POC COMMENT (GLUCOSE) Test Performed by Nursing Services 07/28/2023 7:32 EDT [facility] Blood CAPILLARY BLOOD / Unknown 07/28/2023 7:31 EDT 07/28/2023 7:32 EDT Tai Azar MD POINT OF CARE TEST ORDERABLES Performing Organization Address City/[facility]/ZIP Co de Phone Number [facility] [address], [place] [phone] * (ABNORMAL) POCT GLUCOSE, INTERFACED (07/27/2023 21:56 EDT) Glucose, POC 149(H) 70 - 100 mg/dL 07/27/2023 21:57 EDT [facility] HN LAB POC COMMENT (GLUCOSE) Test Performed by Nursing Services 07/27/2023 21:57 EDT [facility] Blood CAPILLARY BLOOD / Unknown 07/27/2023 21:56 EDT 07/27/2023 21:57 EDT Nabila English NP POINT OF CARE TEST ORDERABLES Performing Organization Address City/[facility]/ZIP Co de Phone Number [facility] [address], [place] [phone] * (ABNORMAL) POCT GLUCOSE, INTERFACED (07/27/2023 17:51 EDT) Glucose, POC 165(H) 70 - 100 mg/dL 07/27/2023 17:53 EDT [facility] HN LAB POC COMMENT (GLUCOSE) Test Performed by Nursing Services 07/27/2023 17:53 EDT [facility] Blood CAPILLARY BLOOD / Unknown 07/27/2023 17:51 EDT 07/27/2023 17:53 EDT Nabila English NP POINT OF CARE TEST ORDERABLES Performing Organization Address [facility]/ZIP Co de Phone Number [facility] [address] [place] [address] * (ABNORMAL) POCT GLUCOSE, INTERFACED (07/27/2023 11:48 EDT) Glucose, POC 118(H) 70 - 100 mg/dL 07/27/2023 11:49 EDT [facility] HN LAB POC COMMENT (GLUCOSE) Test Performed by Nursing Services 07/27/2023 11:49 EDT [facility] Blood CAPILLARY BLOOD / Unknown 07/27/2023 11:48 EDT 07/27/2023 11:49 EDT Tai Azar MD POINT OF CARE TEST ORDERABLES Performing Organization Address [facility]/ZIP Co de Phone Number [facility] [address] [place] [address] * (ABNORMAL) POCT GLUCOSE, INTERFACED (07/27/2023 8:13 EDT) Glucose, POC 133(H) 70 - 100 mg/dL 07/27/2023 8:15 EDT [facility] HN LAB POC COMMENT (GLUCOSE) Test Performed by Nursing Services 07/27/2023 8:15 EDT [facility] Blood CAPILLARY BLOOD / Unknown 07/27/2023 8:13 EDT 07/27/2023 8:14 EDT Tai Azar MD POINT OF CARE TEST ORDERABLES Performing Organization Address City/[facility]/ZIP Co de Phone Number [facility] [address] [place] [address] * (ABNORMAL) POCT GLUCOSE, INTERFACED (07/26/2023 21:41 EDT) Glucose, POC 173(H) 70 - 100 mg/dL 07/26/2023 21:42 EDT [facility] HN LAB POC COMMENT (GLUCOSE) Test Performed by Nursing Services 07/26/2023 21:42 EDT [facility] Blood CAPILLARY BLOOD / Unknown 07/26/2023 21:41 EDT 07/26/2023 21:42 EDT Nabila English NP POINT OF CARE TEST ORDERABLES Performing Organization Address City/[facility]/ZIP Co de Phone Number [facility] [address] [place] [address] * (ABNORMAL) POCT GLUCOSE, INTERFACED (07/26/2023 18:08 EDT) Glucose, POC 177(H) 70 - 100 mg/dL 07/26/2023 18:09 EDT [facility] HN LAB POC COMMENT (GLUCOSE) Test Performed by Nursing Services 07/26/2023 18:09 EDT [facility] Blood CAPILLARY BLOOD / Unknown 07/26/2023 18:08 EDT 07/26/2023 18:09 EDT Nabila English NP POINT OF CARE TEST ORDERABLES [facility] [address], [place] [phone] * (ABNORMAL) POCT GLUCOSE, INTERFACED (07/26/2023 11:26 EDT) Glucose, POC 131(H) 70 - 100 mg/dL 07/26/2023 11:27 EDT [facility] HN LAB POC COMMENT (GLUCOSE) Test Performed by Nursing Services 07/26/2023 11:27 EDT [facility] Blood CAPILLARY BLOOD / Unknown 07/26/2023 11:26 EDT 07/26/2023 11:27 EDT Tai Azar MD POINT OF CARE TEST ORDERABLES Performing Organization Address City/[facility]/ZIP Co de Phone Number [facility] [address] [place] [address] * (ABNORMAL) POCT GLUCOSE, INTERFACED (07/26/2023 7:40 EDT) Glucose, POC 146(H) 70 - 100 mg/dL 07/26/2023 7:42 EDT [facility] HN LAB POC COMMENT (GLUCOSE) Test Performed by Nursing Services 07/26/2023 7:42 EDT [facility] Blood CAPILLARY BLOOD / Unknown 07/26/2023 7:40 EDT 07/26/2023 7:42 EDT Tai Azar MD POINT OF CARE TEST ORDERABLES [facility] [address] [place] [address] * (ABNORMAL) POCT GLUCOSE, INTERFACED (07/25/2023 20:42 EDT) Glucose, POC 159(H) 70 - 100 mg/dL 07/25/2023 20:43 EDT [facility] HN LAB POC COMMENT (GLUCOSE) Test Performed by Nursing Services 07/25/2023 20:43 EDT [facility] Blood CAPILLARY BLOOD / Unknown 07/25/2023 20:42 EDT 07/25/2023 20:43 EDT Tai Azar MD POINT OF CARE TEST ORDERABLES Performing Organization Address City/[facility]/ZIP Co de Phone Number [facility] [address], [place] [phone] * (ABNORMAL) POCT GLUCOSE, INTERFACED (07/25/2023 18:15 EDT) Glucose, POC 142(H) 70 - 100 mg/dL 07/25/2023 18:16 EDT [facility] HN LAB POC COMMENT (GLUCOSE) Test Performed by Nursing Services 07/25/2023 18:16 EDT [facility] Blood CAPILLARY BLOOD / Unknown 07/25/2023 18:15 EDT 07/25/2023 18:16 EDT Nabila English NP POINT OF CARE TEST ORDERABLES Performing Organization Address [facility] Co de Phone Number [facility] [address], [place] [phone] * ECG REPORT - SCANNED (07/25/2023 13:55 EDT) 07/25/2023 13:5 5 EDT Scan 2 Process Designer PROCEDURE/MINOR VI GICAL ORDERABLES * (ABNORMAL) POCT GLUCOSE, INTERFACED (07/25/2023 11:22 EDT) Glucose, POC 144(H) 70 - 100 mg/dL 07/25/2023 11:24 EDT [facility] HN LAB POC COMMENT (GLUCOSE) Test Performed by Nursing Services 07/25/2023 11:24 [facility] Blood CAPILLARY BLOOD / Unknown 07/25/2023 11:22 EDT 07/25/2023 11:24 EDT Tai Azar MD POINT OF CARE TEST ORDERABLES [facility] [address] [place] [address] * (ABNORMAL) COMPLETE BLOOD COUNT AND DIFFERENTIAL (07/25/2023 8:59 EDT) WBC 6.96 4.00 - 12.40 K/cmm 07/25/2023 9:41 [facility] RBC 3.10(L) 3.86 - 5.04 M/cmm 07/25/2023 9:41 [facility] Hemoglobin 8.9(L) 11.6 - 15.2 g/dL 07/25/2023 9:41 [facility] HCT 26.5(L) 34.9 - 44.4 % 07/25/2023 9:41 [facility] MCV 86 81 - 98 fL 07/25/2023 9:41 [facility] MCH 28.7 26.7 - 33.3 pg 07/25/2023 9:41 [facility] MCHC 33.6 32.1 - 35.9 g/dL 07/25/2023 9:41 [facility] RDW-CV 14.3 <14.7 % 07/25/2023 9:41 [facility] RDW-SD 44.6 <50.4 fl 07/25/2023 9:41 [facility] PLT 374 141 - 377 K/cmm 07/25/2023 9:41 [facility] MPV 9.9 9.5 - 12.7 fL 07/25/2023 9:41 [facility] % Neutrophils 54.6 % 07/25/2023 9:41 [facility] % Lymphocytes 27.6 % 07/25/2023 9:41 [facility] % Monocytes 9.9 % 07/25/2023 9:41 [facility] % Eosinophils 3.2 % 07/25/2023 9:41 [facility] % Basophils 1.1 % 07/25/2023 9:41 [facility] % Immature Grans 3.6 % 07/25/19 9:41 [facility] Absolute Neutrophils 3.80 2.20 - 8.85 K/cmm 07/25/2023 9:41 [facility] Absolute Lymphocytes 1.92 1.09 - 3.30 K/cm 07/25/2023 9:41 [facility] Absolute Monocytes 0.69 0.10 - 0.80 K/cm 07/25/2023 9:41 [facility] Absolute Eosinophils 0.22 0.03 - 0.61 K/cmm 07/25/2023 9:41 [facility] ABS Basophils 0.08 0.01 - 0.11 K/cmm 07/25/2023 9:41 [facility] Absolute Immature Grans 0.25(H) 0.00 - 0.06 K/cmm 07/25/2023 9:41 [facility] Type of Differential: Auto 07/25/2023 9:41 [facility] Blood VENOUS BLOOD / Unknown Venipuncture / Unknown 07/25/2023 8:59 EDT 07/25/2023 9:29 EDT Joan Menon MD PACKAGES & DNA PROBE ORDERABLES [facility] [address] [place] [address] * (ABNORMAL) BASIC METABOLIC PANEL (BMP) (07/25/2023 8:58 EDT) Sodium 135(L) 136 - 145 mmol/L 07/25/2023 10:17 [facility] Potassium 3.9 3.5 - 5.0 mmol/L 07/25/2023 10:17 [facility] Chloride 102 96 - 110 mmol/L 07/25/2023 10:17 [facility] CO2 Total 21(L) 22 - 32 mmol/L 07/25/2023 10:17 [facility] Anion Gap 12 5 - 14 mmol/L 07/25/2023 10:17 [facility] Glucose 119(H) 70 - 99 mg/dl 07/25/2023 10:17 [facility] Calcium 9.3 8.5 - 10.5 mg/dL 07/25/2023 10:17 [facility] BUN 18 10 - 26 mg/dL 07/25/2023 10:17 [facility] Creatinine 0.49(L) 0.52 - 1.04 mg/dL 07/25/2023 10:17 [facility] eGFR 113 >60 mL/min/1.73 m2 07/25/2023 10:17 [facility] Blood VENOUS BLOOD / Unknown Venipuncture / Unknown 07/25/2023 8:58 EDT 07/25/2023 9:36 EDT Joan Menon MD CHEMISTRY & BLOOD GA S ORDERABLES [facility] [address] [place] [address] * (ABNORMAL) VITAMIN D (25,OH) (07/25/2023 8:58 EDT) 25OH Vitamin D Tot 22(L) 30 - 100 ng/mL 07/25/2023 11:37 [facility] Comment: Vitamin D 25,OH Interpretive Ranges: Deficiency: ??<10.0 ng/mL Insufficiency: ??10.0 - 30.0 ng/mL Sufficiency: ??30.0 - 100.0 ng/mL Toxicity: ??>100.0 ng/mL Blood VENOUS BLOOD / Unknown Venipuncture / Unknown 07/25/2023 8:58 EDT 07/25/2023 9:36 EDT Tiff Aviles MD CHEMISTRY & BLOOD GA S ORDERABLES Performing Organization Address City/[facility]/ZIP Co de Phone Number [facility] [address] [place] [address] * (ABNORMAL) POCT GLUCOSE, INTERFACED (07/25/2023 6:48 EDT) Glucose, POC 131(H) 70 - 100 mg/dL 07/25/2023 6:49 EDT [facility] HN LAB POC COMMENT (GLUCOSE) Test Performed by Nursing Services 07/25/2023 6:49 EDT [facility] Blood CAPILLARY BLOOD / Unknown 07/25/2023 6:48 EDT 07/25/2023 6:49 EDT Nabila English NP POINT OF CARE TEST ORDERABLES Performing Organization Address [facility] Co de Phone Number [facility] [address] [place] [address] * (ABNORMAL) POCT GLUCOSE, INTERFACED (07/24/2023 20:46 EDT) Glucose, POC 142(H) 70 - 100 mg/dL 07/24/2023 20:47 EDT [facility] HN LAB POC COMMENT (GLUCOSE) Test Performed by Nursing Services 07/24/2023 20:47 EDT [facility] Blood CAPILLARY BLOOD / Unknown 07/24/2023 20:46 EDT 07/24/2023 20:47 EDT Tai Azar MD POINT OF CARE TEST ORDERABLES Performing Organization Address City/[facility]/ZIP Co de Phone Number [facility] [address], [place] [phone] * (ABNORMAL) POCT GLUCOSE, INTERFACED (07/24/2023 18:09 EDT) Glucose, POC 133(H) 70 - 100 mg/dL 07/24/2023 18:10 EDT [facility] HN LAB POC COMMENT (GLUCOSE) Test Performed by Nursing Services 07/24/2023 18:10 EDT [facility] Blood CAPILLARY BLOOD / Unknown 07/24/2023 18:09 EDT 07/24/2023 18:10 EDT Nabila English NP POINT OF CARE TEST ORDERABLES Performing Organization Address [facility] Co de Phone Number [facility] [address], [place] [phone] * (ABNORMAL) POCT GLUCOSE, INTERFACED (07/24/2023 11:37 EDT) Glucose, POC 150(H) 70 - 100 mg/dL 07/24/2023 11:38 EDT [facility] HN LAB POC COMMENT (GLUCOSE) Test Performed by Nursing Services 07/24/2023 11:38 EDT [facility] Blood CAPILLARY BLOOD / Unknown 07/24/2023 11:37 EDT 07/24/2023 11:38 EDT Tai Azar MD POINT OF CARE TEST ORDERABLES Performing Organization Address City/[facility]/ZIP Co de Phone Number [facility] [address], [place] [phone] * (ABNORMAL) POCT GLUCOSE, INTERFACED (07/24/2023 7:53 EDT) Glucose, POC 173(H) 70 - 100 mg/dL 07/24/2023 7:54 EDT [facility] HN LAB POC COMMENT (GLUCOSE) Test Performed by Nursing Services 07/24/2023 7:54 EDT [facility] Blood CAPILLARY BLOOD / Unknown 07/24/2023 7:53 EDT 07/24/2023 7:54 EDT Tai Azar MD POINT OF CARE TEST ORDERABLES [facility] [address] [place] [address] * (ABNORMAL) POCT GLUCOSE, INTERFACED (07/23/2023 20:35 EDT) Glucose, POC 164(H) 70 - 100 mg/dL 07/23/2023 20:37 EDT [facility] HN LAB POC COMMENT (GLUCOSE) Test Performed by Nursing Services 07/23/2023 20:37 EDT [facility] Blood CAPILLARY BLOOD / Unknown 07/23/2023 20:35 EDT 07/23/2023 20:37 EDT Tai Azar MD POINT OF CARE TEST ORDERABLES Performing Organization Address City/[facility]/ZIP Co de Phone Number [facility] [address] [place] [address] * (ABNORMAL) POCT GLUCOSE, INTERFACED (07/23/2023 17:01 EDT) Glucose, POC 211(H) 70 - 100 mg/dL 07/23/2023 17:03 EDT [facility] HN LAB POC COMMENT (GLUCOSE) Test Performed by Nursing Services 07/23/2023 17:03 EDT [facility] Blood CAPILLARY BLOOD / Unknown 07/23/2023 17:01 EDT 07/23/2023 17:03 EDT Nabila English NP POINT OF CARE TEST ORDERABLES [facility] [address] [place] [address] * (ABNORMAL) POCT GLUCOSE, INTERFACED (07/23/2023 12:56 EDT) Glucose, POC 150(H) 70 - 100 mg/dL 07/23/2023 12:58 EDT [facility] HN LAB POC COMMENT (GLUCOSE) Test Performed by Nursing Services 07/23/2023 12:58 EDT [facility] Blood CAPILLARY BLOOD / Unknown 07/23/2023 12:56 EDT 07/23/2023 12:58 EDT Tai Azar MD POINT OF CARE TEST ORDERABLES [facility] [address], [place] [phone] * (ABNORMAL) POCT GLUCOSE, INTERFACED (07/23/2023 9:23 EDT) Glucose, POC 134(H) 70 - 100 mg/dL 07/23/2023 9:24 EDT [facility] HN LAB POC COMMENT (GLUCOSE) Test Performed by Nursing Services 07/23/2023 9:24 EDT [facility] Blood CAPILLARY BLOOD / Unknown 07/23/2023 9:23 EDT 07/23/2023 9:24 EDT Tai Azar MD POINT OF CARE TEST ORDERABLES [facility] [address], [place] [phone] * (ABNORMAL) POCT GLUCOSE, INTERFACED (07/22/2023 22:41 EDT) Glucose, POC 179(H) 70 - 100 mg/dL 07/22/2023 22:42 EDT [facility] HN LAB POC COMMENT (GLUCOSE) Test Performed by Nursing Services 07/22/2023 22:42 EDT [facility] Blood CAPILLARY BLOOD / Unknown 07/22/2023 22:41 EDT 07/22/2023 22:42 EDT Nabila English NP POINT OF CARE TEST ORDERABLES Performing Organization Address City/[facility]/ZIP Co de Phone Number [facility] [address], [place] [phone] * (ABNORMAL) POCT GLUCOSE, INTERFACED (07/22/2023 18:09 EDT) Pathologist [facility] Glucose, POC 139(H) 70 - 100 mg/dL 07/22/2023 18:10 EDT [facility] HN LAB POC COMMENT (GLUCOSE) Test Performed by Nursing Services 07/22/2023 18:10 EDT [facility] Blood CAPILLARY BLOOD / Unknown 07/22/2023 18:09 EDT 07/22/2023 18:10 EDT Nabila English NP POINT OF CARE TEST ORDERABLES Performing Organization Address [facility] Co de Phone Number [facility] [address] [place] [address] * TROPONIN I (07/22/2023 16:21 EDT) [facility] Troponin I (ng/mL) <0.034 <0.034 ng/mL 07/22/2023 17:12 EDT [facility] Comment:Turbid sample identi fied, interpret with caution as turbidity may affect result. Blood VENOUS BLOOD / Unknown Venipuncture / Unknown 07/22/2023 16:21 EDT 07/22/2023 16:24 EDT Narrative [facility] - 07/22/2023 17:12 EDT The results of this assay can be falsely lowered due to the consumption of Biotin. Zahira Veras MD CHEMISTRY & BLOOD G ORDERABLES Performing Organization Address City/[facility]/ZIP Co de Phone Number [facility] [address] [place] [address] * EKG 12-LEAD (07/22/2023 16:16 EDT) 07/22/2023 16:1 6 EDT Narrative [facility] - 07/25/2023 13:47 EDT ? [facility] ? Test Date: ?2023-07-22 Pat Name: ? DELLA BROWNING ? Department: ?? [facility] [address] ? Room: ? B694 Gender: ? Female ? 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 Requested By: RITO RODRIGES Order Number: [id number] ? Reading MD: ?? TRACE HERNÁNDEZ MD ? Measurements Intervals ?[place] ? Rate: ? 86 ? P: ?46 MS: ? 180 ?QRS: ?34 QRSD: ? 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 Electronically Signed On 07-25-2023 13:47:41 EDT by KOURTNEY AL. Zahira Veras MD CARDIAC ECG ORDERAB LES [facility] EKG * (ABNORMAL) POCT GLUCOSE, INTERFACED (07/22/2023 11:26 EDT) Glucose, POC 128(H) 70 - 100 mg/dL 07/22/2023 11:27 EDT [facility] HN LAB POC COMMENT (GLUCOSE) Test Performed by Nursing Services 07/22/2023 11:27 EDT [facility] Blood CAPILLARY BLOOD / Unknown 07/22/2023 11:26 EDT 07/22/2023 11:27 EDT Tai Azar MD POINT OF CARE TEST ORDERABLES Performing Organization Address City/[facility]/ZIP Co de Phone Number [facility] [address] [place] [address] * (ABNORMAL) POCT GLUCOSE, INTERFACED (07/22/2023 7:25 EDT) Glucose, POC 147(H) 70 - 100 mg/dL 07/22/2023 7:26 EDT [facility] HN LAB POC COMMENT (GLUCOSE) Test Performed by Nursing Services 07/22/2023 7:26 EDT [facility] Blood CAPILLARY BLOOD / Unknown 07/22/2023 7:25 EDT 07/22/2023 7:26 EDT Tai Azar MD POINT OF CARE TEST ORDERABLES [facility] [address] [place] [address] * (ABNORMAL) PHOSPHORUS (07/22/2023 6:51 EDT) Phosphorus 6.5(H) 2.5 - 4.5 mg/dL 07/22/2023 16:32 EDT [facility] Blood VENOUS BLOOD / Unknown Venipuncture / Unknown 07/22/2023 6:51 EDT 07/22/2023 7:06 EDT Zahira Veras MD CHEMISTRY & BLOOD G ORDERABLES Performing Organization Address City/[facility]/ZIP Co de Phone Number [facility] [address], [place] [phone] * MAGNESIUM (07/22/2023 6:51 EDT) Pathologist [facility] Magnesium 1.7 1.7 - 2.8 mg/dL 07/22/2023 16:32 EDT [facility] Blood VENOUS BLOOD / Unknown Venipuncture / Unknown 07/22/2023 6:51 EDT 07/22/2023 7:06 EDT Zahira Veras MD CHEMISTRY & BLOOD G ORDERABLES Performing Organization Address [facility] Co de Phone Number [facility] [address], [place] [phone] * (ABNORMAL) COMPLETE BLOOD COUNT AND DIFFERENTIAL (07/22/2023 6:51 EDT) [facility] WBC 7.68 4.00 - 12.40 K/cmm 07/22/2023 7:28 [facility] RBC 3.11(L) 3.86 - 5.04 M/cmm 07/22/2023 7:28 [facility] Hemoglobin 8.9(L) 11.6 - 15.2 g/dL 07/22/2023 7:28 [facility] HCT 26.7(L) 34.9 - 44.4 % 07/22/2023 7:28 [facility] MCV 86 81 - 98 fL 07/22/2023 7:28 [facility] MCH 28.6 26.7 - 33.3 pg 07/22/2023 7:28 [facility] MCHC 33.3 32.1 - 35.9 g/dL 07/22/2023 7:28 [facility] RDW-CV 14.5 <14.7 % 07/22/2023 7:28 [facility] RDW-SD 44.4 <50.4 fl 07/22/2023 7:28 [facility] PLT 390(H) 141 - 377 K/cmm 07/22/2023 7:28 [facility] MPV 9.9 9.5 - 12.7 fL 07/22/2023 7:28 [facility] % Neutrophils 58.2 % 07/22/2023 7:28 [facility] % Lymphocytes 23.8 % 07/22/2023 7:28 [facility] % Monocytes 9.8 % 07/22/2023 7:28 [facility] % Eosinophils 2.5 % 07/22/2023 7:28 [facility] % Basophils 0.8 % 07/22/2023 7:28 [facility] % Immature Grans 4.9 % 07/22/19 7:28 [facility] Absolute Neutrophils 4.47 2.20 - 8.85 K/cmm 07/22/2023 7:28 [facility] Absolute Lymphocytes 1.83 1.09 - 3.30 K/cmm 07/22/2023 7:28 [facility] Absolute Monocytes 0.75 0.10 - 0.80 K/cmm 07/22/2023 7:28 [facility] Absolute Eosinophils 0.19 0.03 - 0.61 K/cmm 07/22/2023 7:28 [facility] ABS Basophils 0.06 0.01 - 0.11 K/cmm 07/22/2023 7:28 [facility] Absolute Immature Grans 0.38(H) 0.00 - 0.06 K/cmm 07/22/2023 7:28 [facility] Type of Differential: Auto 07/22/2023 7:28 [facility] Blood VENOUS BLOOD / Unknown Venipuncture / Unknown 07/22/2023 6:51 EDT 07/22/2023 7:06 EDT Joan Menon MD PACKAGES & DNA PROBE ORDERABLES Performing Organization Address City/[facility]/ZIP Co de Phone Number [facility] [address] [place] [address] * (ABNORMAL) BASIC METABOLIC PANEL (BMP) (07/22/2023 6:51 EDT) Sodium 135(L) 136 - 145 mmol/L 07/22/2023 7:47 EDT [facility] Potassium 4.6 3.5 - 5.0 mmol/L 07/22/2023 7:47 EDT [facility] Chloride 102 96 - 110 mmol/L 07/22/2023 7:47 T [facility] CO2 Total 23 22 - 32 mmol/L 07/22/2023 7:47 T [facility] Anion Gap 10 5 - 14 mmol/L 07/22/2023 7:47 [facility] Glucose 140(H) 70 - 99 mg/dl 07/22/2023 7:47 T [facility] Calcium 9.4 8.5 - 10.5 mg/dL 07/22/2023 7:47 [facility] BUN 15 10 - 26 mg/dL 07/22/2023 7:47 [facility] Creatinine 0.42(L) 0.52 - 1.04 mg/dL 07/22/2023 7:47 [facility] eGFR 118 >60 mL/min/1.73 m2 07/22/2023 7:47 [facility] Blood VENOUS BLOOD / Unknown Venipuncture / Unknown 07/22/2023 6:51 EDT 07/22/2023 7:06 EDT Joan Menon MD CHEMISTRY & BLOOD GA S ORDERABLES [facility] [address] [place] [address] * (ABNORMAL) POCT GLUCOSE, INTERFACED (07/21/2023 21:23 EDT) Glucose, POC 125(H) 70 - 100 mg/dL 07/21/2023 21:24 EDT [facility] HN LAB POC COMMENT (GLUCOSE) Test Performed by Nursing Services 07/21/2023 21:24 EDT [facility] Blood CAPILLARY BLOOD / Unknown 07/21/2023 21:23 EDT 07/21/2023 21:24 EDT Nabila English NP POINT OF CARE TEST ORDERABLES Performing Organization Address City/[facility]/ZIP Co de Phone Number [facility] [address] [place] [address] * (ABNORMAL) POCT GLUCOSE, INTERFACED (07/21/2023 17:42 EDT) Glucose, POC 102(H) 70 - 100 mg/dL 07/21/2023 17:43 EDT [facility] HN LAB POC COMMENT (GLUCOSE) Test Performed by Nursing Services 07/21/2023 17:43 EDT [facility] Blood CAPILLARY BLOOD / Unknown 07/21/2023 17:42 EDT 07/21/2023 17:43 EDT Nabila English NP POINT OF CARE TEST ORDERABLES Performing Organization Address City/[facility]/ZIP Co de Phone Number [facility] [address], [place] [phone] * (ABNORMAL) POCT GLUCOSE, INTERFACED (07/21/2023 12:30 EDT) Glucose, POC 119(H) 70 - 100 mg/dL 07/21/2023 12:32 EDT [facility] HN LAB POC COMMENT (GLUCOSE) Test Performed by Nursing Services 07/21/2023 12:32 EDT [facility] Blood CAPILLARY BLOOD / Unknown 07/21/2023 12:30 EDT 07/21/2023 12:32 EDT Tai Azar MD POINT OF CARE TEST ORDERABLES [facility] [address] [place] [address] * (ABNORMAL) POCT GLUCOSE, INTERFACED (07/21/2023 7:52 EDT) Glucose, POC 248(H) 70 - 100 mg/dL 07/21/2023 7:52 EDT [facility] HN LAB POC COMMENT (GLUCOSE) Test Performed by Nursing Services 07/21/2023 7:52 EDT [facility] Blood CAPILLARY BLOOD / Unknown 07/21/2023 7:52 EDT 07/21/2023 7:52 EDT Tai Azar MD POINT OF CARE TEST ORDERABLES Performing Organization Address City/[facility]/ZIP Co de Phone Number [facility] [address] [place] [address] * (ABNORMAL) POCT GLUCOSE, INTERFACED (07/20/2023 19:59 EDT) Glucose, POC 214(H) 70 - 100 mg/dL 07/20/2023 20:01 EDT [facility] HN LAB POC COMMENT (GLUCOSE) Test Performed by Nursing Services 07/20/2023 20:01 EDT [facility] Blood CAPILLARY BLOOD / Unknown 07/20/2023 19:59 EDT 07/20/2023 20:01 EDT Tai Azar MD POINT OF CARE TEST ORDERABLES [facility] [address] [place] [address] * (ABNORMAL) POCT GLUCOSE, INTERFACED (07/20/2023 18:12 EDT) Glucose, POC 171(H) 70 - 100 mg/dL 07/20/2023 18:13 EDT [facility] HN LAB POC COMMENT (GLUCOSE) Test Performed by Nursing Services 07/20/2023 18:13 EDT [facility] Blood CAPILLARY BLOOD / Unknown 07/20/2023 18:12 EDT 07/20/2023 18:13 EDT Nabila English NP POINT OF CARE TEST ORDERABLES Performing Organization Address City/[facility]/ZIP Co de Phone Number [facility] [address] [place] [address] * (ABNORMAL) POCT GLUCOSE, INTERFACED (07/20/2023 12:05 EDT) Glucose, POC 152(H) 70 - 100 mg/dL 07/20/2023 12:06 EDT [facility] HN LAB POC COMMENT (GLUCOSE) Test Performed by Nursing Services 07/20/2023 12:06 EDT [facility] Blood CAPILLARY BLOOD / Unknown 07/20/2023 12:05 EDT 07/20/2023 12:06 EDT Tai Azar MD POINT OF CARE TEST ORDERABLES Performing Organization Address [facility] Co de Phone Number [facility] [address] [place] [phone] * (ABNORMAL) POCT GLUCOSE, INTERFACED (07/20/2023 7:13 EDT) Glucose, POC 141(H) 70 - 100 mg/dL 07/20/2023 7:14 EDT [facility] HN LAB POC COMMENT (GLUCOSE) Test Performed by Nursing Services 07/20/2023 7:14 EDT [facility] Blood CAPILLARY BLOOD / Unknown 07/20/2023 7:13 EDT 07/20/2023 7:14 EDT Nabila English NP POINT OF CARE TEST ORDERABLES Performing Organization Address City/[facility]/ZIP Co de Phone Number [facility] [address], [place] [phone] * (ABNORMAL) POCT GLUCOSE, INTERFACED (07/19/2023 20:49 EDT) Glucose, POC 183(H) 70 - 100 mg/dL 07/19/2023 20:50 EDT [facility] HN LAB POC COMMENT (GLUCOSE) Test Performed by Nursing Services 07/19/2023 20:50 EDT [facility] Blood CAPILLARY BLOOD / Unknown 07/19/2023 20:49 EDT 07/19/2023 20:50 EDT Tai Azar MD POINT OF CARE TEST ORDERABLES [facility] [address] [place] [phone] * (ABNORMAL) POCT GLUCOSE, INTERFACED (07/19/2023 17:09 EDT) Glucose, POC 145(H) 70 - 100 mg/dL 07/19/2023 17:10 EDT [facility] HN LAB POC COMMENT (GLUCOSE) Test Performed by Nursing Services 07/19/2023 17:10 EDT [facility] Blood CAPILLARY BLOOD / Unknown 07/19/2023 17:09 EDT 07/19/2023 17:10 EDT Nabila English NP POINT OF CARE TEST ORDERABLES [facility] [address], [place] [phone] * (ABNORMAL) POCT GLUCOSE, INTERFACED (07/19/2023 11:36 EDT) Glucose, POC 145(H) 70 - 100 mg/dL 07/19/2023 11:38 EDT [facility] HN LAB POC COMMENT (GLUCOSE) Test Performed by Nursing Services 07/19/2023 11:38 EDT [facility] Blood CAPILLARY BLOOD / Unknown 07/19/2023 11:36 EDT 07/19/2023 11:38 EDT Tai Azar MD POINT OF CARE TEST ORDERABLES Performing Organization Address City/[facility]/ZIP Co de Phone Number [facility] [address] [place] [address] * (ABNORMAL) POCT GLUCOSE, INTERFACED (07/19/2023 7:30 EDT) Glucose, POC 171(H) 70 - 100 mg/dL 07/19/2023 7:31 EDT [facility] HN LAB POC COMMENT (GLUCOSE) Test Performed by Nursing Services 07/19/2023 7:31 EDT [facility] Blood CAPILLARY BLOOD / Unknown 07/19/2023 7:30 EDT 07/19/2023 7:31 EDT Tai Azar MD POINT OF CARE TEST ORDERABLES Performing Organization Address [facility]/ZIP Co de Phone Number [facility] [address] [place] [address] * (ABNORMAL) POCT GLUCOSE, INTERFACED (07/18/2023 20:33 EDT) Glucose, POC 217(H) 70 - 100 mg/dL 07/18/2023 20:35 EDT [facility] HN LAB POC COMMENT (GLUCOSE) Test Performed by Nursing Services 07/18/2023 20:35 EDT [facility] Blood CAPILLARY BLOOD / Unknown 07/18/2023 20:33 EDT 07/18/2023 20:35 EDT Tai Azar MD POINT OF CARE TEST ORDERABLES Performing Organization Address [facility]/ZIP Co de Phone Number [facility] [address] [place] [address] * (ABNORMAL) POCT GLUCOSE, INTERFACED (07/18/2023 18:20 EDT) Glucose, POC 161(H) 70 - 100 mg/dL 07/18/2023 18:21 EDT [facility] HN LAB POC COMMENT (GLUCOSE) Test Performed by Nursing Services 07/18/2023 18:21 EDT [facility] Blood CAPILLARY BLOOD / Unknown 07/18/2023 18:20 EDT 07/18/2023 18:21 EDT Nabila English NP POINT OF CARE TEST ORDERABLES Performing Organization Address City/[facility]/ZIP Co de Phone Number [facility] [address] [place] [address] * (ABNORMAL) POCT GLUCOSE, INTERFACED (07/18/2023 11:42 EDT) Glucose, POC 166(H) 70 - 100 mg/dL 07/18/2023 11:43 EDT [facility] HN LAB POC COMMENT (GLUCOSE) Test Performed by Nursing Services 07/18/2023 11:43 EDT [facility] Blood CAPILLARY BLOOD / Unknown 07/18/2023 11:42 EDT 07/18/2023 11:43 EDT Tai Azar MD POINT OF CARE TEST ORDERABLES [facility] [address] [place] [address] * (ABNORMAL) POCT GLUCOSE, INTERFACED (07/18/2023 8:36 EDT) Glucose, POC 195(H) 70 - 100 mg/dL 07/18/2023 8:37 EDT [facility] HN LAB POC COMMENT (GLUCOSE) Test Performed by Nursing Services 07/18/2023 8:37 EDT [facility] Blood CAPILLARY BLOOD / Unknown 07/18/2023 8:36 EDT 07/18/2023 8:37 EDT Nabila English NP POINT OF CARE TEST ORDERABLES [facility] [address] [place] [address] * (ABNORMAL) COMPLETE BLOOD COUNT AND DIFFERENTIAL (07/18/2023 8:20 EDT) WBC 7.06 4.00 - 12.40 K/cmm 07/18/2023 8:58 EDT [facility] RBC 3.01(L) 3.86 - 5.04 M/cmm 07/18/2023 8:58 [facility] Hemoglobin 8.6(L) 11.6 - 15.2 g/dL 07/18/2023 8:58 [facility] HCT 25.8(L) 34.9 - 44.4 % 07/18/2023 8:58 [facility] MCV 86 81 - 98 fL [facility]23 [facility] MCH 28.6 26.7 - 33.3 pg 07/18/2023 8:58 [facility] MCHC 33.3 32.1 - 35.9 g/dL 07/18/2023 8:58 [facility] RDW-CV 14.6 <14.7 % 07/18/2023 8:58 [facility] RDW-SD 45.2 <50.4 fl 07/18/2023 8:58 [facility] PLT 342 141 - 377 K/cmm 07/18/2023 8:58 [facility] MPV 9.7 9.5 - 12.7 fL 07/18/2023 8:58 [facility] % Neutrophils 60.1 % 07/18/2023 8:58 [facility] % Lymphocytes 24.5 % 07/18/2023 8:58 [facility] % Monocytes 8.8 % 07/18/2023 8:58 [facility] % Eosinophils 1.7 % 07/18/2023 8:58 EDT [facility] % Basophils 0.7 % 07/18/2023 8:58 EDT [facility] % Immature Grans 4.2 % 07/18/19 8:58 [facility] Absolute Neutrophils 4.24 2.20 - 8.85 K/cmm 07/18/2023 8:58 T [facility] Absolute Lymphocytes 1.73 1.09 - 3.30 K/cmm 07/18/2023 8:58 T [facility] Absolute Monocytes 0.62 0.10 - 0.80 K/cmm 07/18/2023 8:58 T [facility] Absolute Eosinophils 0.12 0.03 - 0.61 K/cmm 07/18/2023 8:58 EDT [facility] ABS Basophils 0.05 0.01 - 0.11 K/cmm 07/18/2023 8:58 T [facility] Absolute Immature Grans 0.30(H) 0.00 - 0.06 K/cmm 07/18/2023 8:58 EDT [facility] Type of Differential: Auto 07/18/2023 8:58 [facility] Blood VENOUS BLOOD / Unknown Venipuncture / Unknown 07/18/2023 8:20 EDT 07/18/2023 8:51 EDT Joan Menon MD PACKAGES & DNA PROBE ORDERABLES [facility] [address] [place] [address] * (ABNORMAL) BASIC METABOLIC PANEL (BMP) (07/18/2023 8:20 EDT) Sodium 132(L) 136 - 145 mmol/L 07/18/2023 9:30 EDT [facility] Potassium 4.2 3.5 - 5.0 mmol/L 07/18/2023 9:30 EDT [facility] Chloride 99 96 - 110 mmol/L 07/18/2023 9:30 EDT [facility] CO2 Total 22 22 - 32 mmol/L 07/18/2023 9:30 EDT [facility] Anion Gap 11 5 - 14 mmol/L 07/18/2023 9:30 EDT [facility] Glucose 180(H) 70 - 99 mg/dl 07/18/2023 9:30 EDT [facility] Calcium 8.8 8.5 - 10.5 mg/dL 07/18/2023 9:30 EDT [facility] BUN 14 10 - 26 mg/dL 07/18/2023 9:30 EDT [facility] Creatinine 0.41(L) 0.52 - 1.04 mg/dL 07/18/2023 9:30 EDT [facility] eGFR 118 >60 mL/min/1.73 m2 07/18/2023 9:30 EDT [facility] Blood VENOUS BLOOD / Unknown Venipuncture / Unknown 07/18/2023 8:20 EDT 07/18/2023 8:51 EDT Joan Menon MD CHEMISTRY & BLOOD GA S ORDERABLES [facility] [address] [place] [address] * (ABNORMAL) POCT GLUCOSE, INTERFACED (07/18/2023 7:17 EDT) Glucose, POC 153(H) 70 - 100 mg/dL 07/18/2023 7:18 EDT [facility] HN LAB POC COMMENT (GLUCOSE) Test Performed by Nursing Services 07/18/2023 7:18 EDT [facility] Blood CAPILLARY BLOOD / Unknown 07/18/2023 7:17 EDT 07/18/2023 7:18 EDT Tai Azar MD POINT OF CARE TEST ORDERABLES [facility] [address], [place] [phone] * (ABNORMAL) POCT GLUCOSE, INTERFACED (07/17/2023 20:24 EDT) Glucose, POC 244(H) 70 - 100 mg/dL 07/17/2023 20:25 EDT [facility] HN LAB POC COMMENT (GLUCOSE) Test Performed by Nursing Services 07/17/2023 20:25 EDT [facility] Blood CAPILLARY BLOOD / Unknown 07/17/2023 20:24 EDT 07/17/2023 20:25 EDT Tai Azar MD POINT OF CARE TEST ORDERABLES [facility] [address], [place] [phone] * (ABNORMAL) POCT GLUCOSE, INTERFACED (07/17/2023 17:49 EDT) Glucose, POC 114(H) 70 - 100 mg/dL 07/17/2023 17:50 EDT [facility] HN LAB POC COMMENT (GLUCOSE) Test Performed by Nursing Services 07/17/2023 17:50 EDT [facility] Blood CAPILLARY BLOOD / Unknown 07/17/2023 17:49 EDT 07/17/2023 17:50 EDT Nabila English NP POINT OF CARE TEST ORDERABLES [facility] [address], [place] [phone] * (ABNORMAL) POCT GLUCOSE, INTERFACED (07/17/2023 11:47 EDT) Glucose, POC 207(H) 70 - 100 mg/dL 07/17/2023 11:49 EDT [facility] HN LAB POC COMMENT (GLUCOSE) Test Performed by Nursing Services 07/17/2023 11:49 EDT [facility] Blood CAPILLARY BLOOD / Unknown 07/17/2023 11:47 EDT 07/17/2023 11:49 EDT Tai Azar MD POINT OF CARE TEST ORDERABLES Performing Organization Address City/[facility]/ZIP Co de Phone Number [facility] [address] [place] [address] * (ABNORMAL) POCT GLUCOSE, INTERFACED (07/17/2023 7:59 EDT) Glucose, POC 163(H) 70 - 100 mg/dL 07/17/2023 8:01 EDT [facility] HN LAB POC COMMENT (GLUCOSE) Test Performed by Nursing Services 07/17/2023 8:01 EDT [facility] Blood CAPILLARY BLOOD / Unknown 07/17/2023 7:59 EDT 07/17/2023 8:01 EDT Tai Azar MD POINT OF CARE TEST ORDERABLES Performing Organization Address [facility]/ZIP Co de Phone Number [facility] [address] [place] [address] * (ABNORMAL) POCT GLUCOSE, INTERFACED (07/16/2023 21:31 EDT) Glucose, POC 201(H) 70 - 100 mg/dL 07/16/2023 21:38 EDT [facility] HN LAB POC COMMENT (GLUCOSE) Test Performed by Nursing Services 07/16/2023 21:38 EDT [facility] Blood CAPILLARY BLOOD / Unknown 07/16/2023 21:31 EDT 07/16/2023 21:38 EDT Nabila English NP POINT OF CARE TEST ORDERABLES Performing Organization Address City/[facility]/ZIP Co de Phone Number [facility] [address] [place] [address] * (ABNORMAL) POCT GLUCOSE, INTERFACED (07/16/2023 16:52 EDT) Glucose, POC 174(H) 70 - 100 mg/dL 07/16/2023 16:53 EDT [facility] HN LAB POC COMMENT (GLUCOSE) Test Performed by Nursing Services 07/16/2023 16:53 EDT [facility] Blood CAPILLARY BLOOD / Unknown 07/16/2023 16:52 EDT 07/16/2023 16:53 EDT Nabila English NP POINT OF CARE TEST ORDERABLES Performing Organization Address City/[facility]/ZIP Co de Phone Number [facility] [address] [place] [address] * (ABNORMAL) POCT GLUCOSE, INTERFACED (07/16/2023 11:35 EDT) Glucose, POC 158(H) 70 - 100 mg/dL 07/16/2023 11:37 EDT [facility] HN LAB POC COMMENT (GLUCOSE) Test Performed by Nursing Services 07/16/2023 11:37 EDT [facility] Blood CAPILLARY BLOOD / Unknown 07/16/2023 11:35 EDT 07/16/2023 11:37 EDT Tai Azar MD POINT OF CARE TEST ORDERABLES [facility] [address] [place] [address] * (ABNORMAL) POCT GLUCOSE, INTERFACED (07/16/2023 7:43 EDT) Glucose, POC 145(H) 70 - 100 mg/dL 07/16/2023 7:44 EDT [facility] HN LAB POC COMMENT (GLUCOSE) Test Performed by Nursing Services 07/16/2023 7:44 EDT [facility] [facility] Blood CAPILLARY BLOOD / Unknown 07/16/2023 7:43 EDT 07/16/2023 7:44 EDT Tai Azar MD POINT OF CARE TEST ORDERABLES [facility] [address], [place] [phone] * (ABNORMAL) POCT GLUCOSE, INTERFACED (07/15/2023 20:31 EDT) Glucose, POC 194(H) 70 - 100 mg/dL 07/15/2023 20:34 EDT [facility] HN LAB POC COMMENT (GLUCOSE) Test Performed by Nursing Services 07/15/2023 20:34 EDT [facility] Blood CAPILLARY BLOOD / Unknown 07/15/2023 20:31 EDT 07/15/2023 20:34 EDT Tai Azar MD POINT OF CARE TEST ORDERABLES Performing Organization Address City/[facility]/ZIP Co de Phone Number [facility] [address] [place] [address] * (ABNORMAL) POCT GLUCOSE, INTERFACED (07/15/2023 17:04 EDT) Glucose, POC 188(H) 70 - 100 mg/dL 07/15/2023 17:05 EDT [facility] HN LAB POC COMMENT (GLUCOSE) Test Performed by Nursing Services 07/15/2023 17:05 EDT [facility] Blood CAPILLARY BLOOD / Unknown 07/15/2023 17:04 EDT 07/15/2023 17:05 EDT Nabila English NP POINT OF CARE TEST ORDERABLES Performing Organization Address City/[facility]/ZIP Co de Phone Number [facility] [address] [place] [address] * (ABNORMAL) POCT GLUCOSE, INTERFACED (07/15/2023 11:20 EDT) Glucose, POC 174(H) 70 - 100 mg/dL 07/15/2023 11:21 EDT [facility] HN LAB POC COMMENT (GLUCOSE) Test Performed by Nursing Services 07/15/2023 11:21 T [facility] Blood CAPILLARY BLOOD / Unknown 07/15/2023 11:20 EDT 07/15/2023 11:21 EDT Tai Azar MD POINT OF CARE TEST ORDERABLES [facility] [address] [place] [address] * (ABNORMAL) COMPLETE BLOOD COUNT AND DIFFERENTIAL (07/15/2023 9:26 EDT) WBC 8.00 4.00 - 12.40 K/cmm 07/15/2023 9:50 [facility] RBC 2.91(L) 3.86 - 5.04 M/cmm 07/15/2023 9:50 [facility] Hemoglobin 8.3(L) 11.6 - 15.2 g/dL 07/15/2023 9:50 [facility] HCT 25.1(L) 34.9 - 44.4 % 07/15/2023 9:50 [facility] MCV 86 81 - 98 fL 07/15/2023 9:50 [facility] MCH 28.5 26.7 - 33.3 pg 07/15/2023 9:50 [facility] MCHC 33.1 32.1 - 35.9 g/dL 07/15/2023 9:50 [facility] RDW-CV 14.4 <14.7 % 07/15/2023 9:50 [facility] RDW-SD 44.7 <50.4 fl 07/15/2023 9:50 [facility] PLT 387(H) 141 - 377 K/cmm 07/15/2023 9:50 [facility] MPV 9.8 9.5 - 12.7 fL 07/15/2023 9:50 [facility] % Neutrophils 67.7 % 07/15/2023 9:50 [facility] % Lymphocytes 16.1 % 07/15/2023 9:50 [facility] % Monocytes 9.5 % 07/15/2023 9:50 [facility] % Eosinophils 1.8 % 07/15/2023 9:50 [facility] % Basophils 0.8 % 07/15/2023 9:50 [facility] % Immature Grans 4.1 % 07/15/19 9:50 [facility] Absolute Neutrophils 5.42 2.20 - 8.85 K/cmm 07/15/2023 9:50 [facility] Absolute Lymphocytes 1.29 1.09 - 3.30 K/cmm 07/15/2023 9:50 [facility] Absolute Monocytes 0.76 0.10 - 0.80 K/cmm 07/15/2023 9:50 [facility] Absolute Eosinophils 0.14 0.03 - 0.61 K/cmm 07/15/2023 9:50 [facility] ABS Basophils 0.06 0.01 - 0.11 K/cmm 07/15/2023 9:50 [facility] Absolute Immature Grans 0.33(H) 0.00 - 0.06 K/cmm 07/15/2023 9:50 [facility] Type of Differential: Auto 07/15/2023 9:50 [facility] Blood VENOUS BLOOD / Unknown Venipuncture / Unknown 07/15/2023 9:26 EDT 07/15/2023 9:41 EDT Joan Menon MD PACKAGES & DNA PROBE ORDERABLES [facility] [address] [place] [address] * (ABNORMAL) BASIC METABOLIC PANEL (BMP) (07/15/2023 9:26 EDT) Sodium 131(L) 136 - 145 mmol/L 07/15/2023 10:26 [facility] Potassium 4.1 3.5 - 5.0 mmol/L 07/15/2023 10:26 [facility] Chloride 96 96 - 110 mmol/L 07/15/2023 10:26 [facility] CO2 Total 23 22 - 32 mmol/L 07/15/2023 10:26 [facility] Anion Gap 12 5 - 14 mmol/L 07/15/2023 10:26 [facility] Glucose 240(H) 70 - 99 mg/dl 07/15/2023 10:26 [facility] Calcium 8.5 8.5 - 10.5 mg/dL 07/15/2023 10:26 [facility] BUN 14 10 - 26 mg/dL 07/15/2023 10:26 [facility] Creatinine 0.40(L) 0.52 - 1.04 mg/dL 07/15/2023 10:26 [facility] eGFR 119 >60 mL/min/1.73 m2 07/15/2023 10:26 [facility] Blood VENOUS BLOOD / Unknown Venipuncture / Unknown 07/15/2023 9:26 EDT 07/15/2023 9:48 EDT Joan Menon MD CHEMISTRY & BLOOD GA S ORDERABLES [facility] [address] [place] [address] * (ABNORMAL) POCT GLUCOSE, INTERFACED (07/15/2023 7:16 EDT) Glucose, POC 150(H) 70 - 100 mg/dL 07/15/2023 7:17 [facility] HN LAB POC COMMENT (GLUCOSE) Test Performed by Nursing Services 07/15/2023 7:17 EDT [facility] Blood CAPILLARY BLOOD / Unknown 07/15/2023 7:16 EDT 07/15/2023 7:17 EDT Tai Azar MD POINT OF CARE TEST ORDERABLES [facility] [address] [place] [address] * (ABNORMAL) POCT GLUCOSE, INTERFACED (07/14/2023 20:42 EDT) Glucose, POC 164(H) 70 - 100 mg/dL 07/14/2023 20:43 EDT [facility] HN LAB POC COMMENT (GLUCOSE) Test Performed by Nursing Services 07/14/2023 20:43 EDT [facility] Blood CAPILLARY BLOOD / Unknown 07/14/2023 20:42 EDT 07/14/2023 20:43 EDT Tai Azar MD POINT OF CARE TEST ORDERABLES Performing Organization Address City/[facility]/ZIP Co de Phone Number [facility] [address] [place] [address] * (ABNORMAL) POCT GLUCOSE, INTERFACED (07/14/2023 16:48 EDT) Glucose, POC 172(H) 70 - 100 mg/dL 07/14/2023 16:49 EDT [facility] HN LAB POC COMMENT (GLUCOSE) Test Performed by Nursing Services 07/14/2023 16:49 EDT [facility] Blood CAPILLARY BLOOD / Unknown 07/14/2023 16:48 EDT 07/14/2023 16:49 EDT Nabila English NP POINT OF CARE TEST ORDERABLES [facility] [address] [place] [address] * (ABNORMAL) POCT GLUCOSE, INTERFACED (07/14/2023 11:59 EDT) Glucose, POC 187(H) 70 - 100 mg/dL 07/14/2023 12:00 EDT [facility] HN LAB POC COMMENT (GLUCOSE) Test Performed by Nursing Services 07/14/2023 12:00 EDT [facility] Blood CAPILLARY BLOOD / Unknown 07/14/2023 11:59 EDT 07/14/2023 12:00 EDT Tai Azar MD POINT OF CARE TEST ORDERABLES Performing Organization Address City/[facility]/ZIP Co de Phone Number [facility] [address], [place] [phone] * (ABNORMAL) POCT GLUCOSE, INTERFACED (07/14/2023 6:53 EDT) Glucose, POC 179(H) 70 - 100 mg/dL 07/14/2023 6:54 EDT [facility] HN LAB POC COMMENT (GLUCOSE) Test Performed by Nursing Services 07/14/2023 6:54 EDT [facility] Blood CAPILLARY BLOOD / Unknown 07/14/2023 6:53 EDT 07/14/2023 6:54 EDT Nabila English NP POINT OF CARE TEST ORDERABLES Performing Organization Address City/[facility]/ZIP Co de Phone Number [facility] [address], [place] [phone] * (ABNORMAL) POCT GLUCOSE, INTERFACED (07/13/2023 20:26 EDT) Glucose, POC 251(H) 70 - 100 mg/dL 07/13/2023 20:28 EDT [facility] HN LAB POC COMMENT (GLUCOSE) Test Performed by Nursing Services 07/13/2023 20:28 EDT [facility] Blood CAPILLARY BLOOD / Unknown 07/13/2023 20:26 EDT 07/13/2023 20:28 EDT Tai Azar MD POINT OF CARE TEST ORDERABLES Performing Organization Address City/[facility]/ZIP Co de Phone Number [facility] [address] [place] [address] * (ABNORMAL) POCT GLUCOSE, INTERFACED (07/13/2023 17:07 EDT) Glucose, POC 257(H) 70 - 100 mg/dL 07/13/2023 17:08 EDT [facility] HN LAB POC COMMENT (GLUCOSE) Test Performed by Nursing Services 07/13/2023 17:08 EDT [facility] Blood CAPILLARY BLOOD / Unknown 07/13/2023 17:07 EDT 07/13/2023 17:08 EDT Naibla English NP POINT OF CARE TEST ORDERABLES Performing Organization Address [facility]/ZIP Co de Phone Number [facility] [address] [place] [address] * (ABNORMAL) POCT GLUCOSE, INTERFACED (07/13/2023 11:23 EDT) Glucose, POC 184(H) 70 - 100 mg/dL 07/13/2023 11:24 EDT [facility] HN LAB POC COMMENT (GLUCOSE) Test Performed by Nursing Services 07/13/2023 11:24 EDT [facility] Blood CAPILLARY BLOOD / Unknown 07/13/2023 11:23 EDT 07/13/2023 11:24 EDT Tai Azar MD POINT OF CARE TEST ORDERABLES Performing Organization Address City/[facility]/ZIP Co de Phone Number [facility] [address] [place] [address] * (ABNORMAL) POCT GLUCOSE, INTERFACED (07/13/2023 7:06 EDT) Glucose, POC 151(H) 70 - 100 mg/dL 07/13/2023 7:08 EDT [facility] HN LAB POC COMMENT (GLUCOSE) Test Performed by Nursing Services 07/13/2023 7:08 EDT [facility] Blood CAPILLARY BLOOD / Unknown 07/13/2023 7:06 EDT 07/13/2023 7:08 EDT Nabila English NP POINT OF CARE TEST ORDERABLES Performing Organization Address City/[facility]/ZIP Co de Phone Number [facility] [address] [place] [address] * (ABNORMAL) POCT GLUCOSE, INTERFACED (07/12/2023 21:13 EDT) Glucose, POC 209(H) 70 - 100 mg/dL 07/12/2023 21:15 EDT [facility] HN LAB POC COMMENT (GLUCOSE) Test Performed by Nursing Services 07/12/2023 21:15 EDT [facility] Blood CAPILLARY BLOOD / Unknown 07/12/2023 21:13 EDT 07/12/2023 21:15 EDT Nabila English NP POINT OF CARE TEST ORDERABLES Performing Organization Address City/[facility]/ZIP Co de Phone Number [facility] [address], [place] [phone] * (ABNORMAL) POCT GLUCOSE, INTERFACED (07/12/2023 16:52 EDT) Glucose, POC 221(H) 70 - 100 mg/dL 07/12/2023 16:53 EDT [facility] HN LAB POC COMMENT (GLUCOSE) Test Performed by Nursing Services 07/12/2023 16:53 EDT [facility] Blood CAPILLARY BLOOD / Unknown 07/12/2023 16:52 EDT 07/12/2023 16:53 EDT Nabila English NP POINT OF CARE TEST ORDERABLES [facility] [address], [place] [phone] * (ABNORMAL) POCT GLUCOSE, INTERFACED (07/12/2023 11:18 EDT) Glucose, POC 241(H) 70 - 100 mg/dL 07/12/2023 11:18 EDT [facility] HN LAB POC COMMENT (GLUCOSE) Test Performed by Nursing Services 07/12/2023 11:18 EDT [facility] Blood CAPILLARY BLOOD / Unknown 07/12/2023 11:18 EDT 07/12/2023 11:18 EDT Tai Azar MD POINT OF CARE TEST ORDERABLES Performing Organization Address City/[facility]/ZIP Co de Phone Number [facility] [address], [place] [phone] * (ABNORMAL) POCT GLUCOSE, INTERFACED (07/12/2023 7:32 EDT) Glucose, POC 153(H) 70 - 100 mg/dL 07/12/2023 7:34 EDT [facility] HN LAB POC COMMENT (GLUCOSE) Test Performed by Nursing Services 07/12/2023 7:34 EDT [facility] Blood CAPILLARY BLOOD / Unknown 07/12/2023 7:32 EDT 07/12/2023 7:34 EDT Tai Azar MD POINT OF CARE TEST ORDERABLES [facility] [address], [place] [phone] * (ABNORMAL) POCT GLUCOSE, INTERFACED (07/11/2023 21:54 EDT) Glucose, POC 250(H) 70 - 100 mg/dL 07/11/2023 22:03 EDT [facility] HN LAB POC COMMENT (GLUCOSE) Test Performed by Nursing Services 07/11/2023 22:03 EDT [facility] Blood CAPILLARY BLOOD / Unknown 07/11/2023 21:54 EDT 07/11/2023 22:03 EDT Moo Monique MD POINT OF CARE TEST ORDERABLES [facility] [address], [place] [phone] * (ABNORMAL) POCT GLUCOSE, INTERFACED (07/11/2023 20:43 EDT) Glucose, POC 282(H) 70 - 100 mg/dL 07/11/2023 20:45 EDT [facility] HN LAB POC COMMENT (GLUCOSE) Test Performed by Nursing Services 07/11/2023 20:45 EDT [facility] Blood CAPILLARY BLOOD / Unknown 07/11/2023 20:43 EDT 07/11/2023 20:44 EDT Tai Azar MD POINT OF CARE TEST ORDERABLES Performing Organization Address City/[facility]/ZIP Co de Phone Number [facility] [address] [place] [address] * (ABNORMAL) POCT GLUCOSE, INTERFACED (07/11/2023 17:54 EDT) Glucose, POC 169(H) 70 - 100 mg/dL 07/11/2023 17:55 EDT [facility] HN LAB POC COMMENT (GLUCOSE) Test Performed by Nursing Services 07/11/2023 17:55 EDT [facility] Blood CAPILLARY BLOOD / Unknown 07/11/2023 17:54 EDT 07/11/2023 17:55 EDT Tai Azar MD POINT OF CARE TEST ORDERABLES Performing Organization Address City/[facility]/ZIP Co de Phone Number [facility] [address] [place] [phone] * (ABNORMAL) POCT GLUCOSE, INTERFACED (07/11/2023 13:06 EDT) Glucose, POC 156(H) 70 - 100 mg/dL 07/11/2023 13:08 EDT [facility] HN LAB POC COMMENT (GLUCOSE) Test Performed by Nursing Services 07/11/2023 13:08 EDT [facility] Blood CAPILLARY BLOOD / Unknown 07/11/2023 13:06 EDT 07/11/2023 13:08 EDT Tai Azar MD POINT OF CARE TEST ORDERABLES Performing Organization Address [facility]/ZIP Co de Phone Number [facility] [address] [place] [phone] * (ABNORMAL) POCT GLUCOSE, INTERFACED (07/11/2023 7:48 EDT) Glucose, POC 140(H) 70 - 100 mg/dL 07/11/2023 7:49 EDT [facility] HN LAB POC COMMENT (GLUCOSE) Test Performed by Nursing Services 07/11/2023 7:49 EDT [facility] Blood CAPILLARY BLOOD / Unknown 07/11/2023 7:48 EDT 07/11/2023 7:49 EDT Tai Azar MD POINT OF CARE TEST ORDERABLES [facility] [address] [place] [phone] * (ABNORMAL) DIFFERENTIAL, AUTOMATED MANUAL (07/11/2023 6:36 EDT) % Neutrophils 56.5 Not Indicated % 07/11/2023 8:03 EDT [facility] % Lymphocytes 20.0 Not Indicated % 07/11/2023 8:03 EDT [facility] % Monocytes 15.6 Not Indicated % 07/11/2023 8:03 [facility] % Eosinophils 0.9 Not Indicated % 07/11/2023 8:03 [facility] % Basophils 0.9 Not Indicated % 07/11/2023 8:03 [facility] % Metamyelocytes 5.2 Not Indicated % 07/11/2023 8:03 [facility] % Myelocytes 0.9 Not Indicated % 07/11/2023 8:03 [facility] Basophilic Stippling Present in <2% of RBCs 07/11/2023 8:03 [facility] Absolute Neutrophils 3.93 2.20 - 8.85 K/cm 07/11/2023 8:03 [facility] Absolute Lymphocytes 1.39 1.09 - 3.30 K/cmm 07/11/2023 8:03 [facility] Absolute Monocytes 1.09(H) 0.10 - 0.80 K/cmm 07/11/2023 8:03 [facility] Absolute Eosinophils 0.06 0.03 - 0.61 K/cmm 07/11/2023 8:03 [facility] ABS Basophils 0.06 0.01 - 0.11 K/cmm 07/11/2023 8:03 [facility] Absolute Metamyelocytes 0.36(H) <=0.00 K/cmm 07/11/2023 8:03 [facility] Absolute Myelocytes 0.06(H) <=0.00 K/cmm 07/11/2023 8:03 [facility] Type of Differential: Manual 07/11/2023 8:03 [facility] Blood VENOUS BLOOD / Unknown Venipuncture / Unknown 07/11/2023 6:36 EDT 07/11/2023 7:10 EDT Joan Menon MD HEMATOLOGY & PF4 ORD ERABLES [facility] [address], [place] [phone] * (ABNORMAL) COMPLETE BLOOD COUNT AND DIFFERENTIAL (07/11/2023 6:36 EDT) WBC 6.96 4.00 - 12.40 K/cmm 07/11/2023 7:30 EDT [facility] RBC 2.61(L) 3.86 - 5.04 M/cmm 07/11/2023 7:30 EDT [facility] Hemoglobin 7.4(L) 11.6 - 15.2 g/dL 07/11/2023 7:30 EDT [facility] HCT 22.6(L) 34.9 - 44.4 % 07/11/2023 7:30 EDT [facility] MCV 87 81 - 98 fL 07/11/2023 7:30 EDT [facility] MCH 28.4 26.7 - 33.3 pg 07/11/2023 7:30 EDT [facility] MCHC 32.7 32.1 - 35.9 g/dL 07/11/2023 7:30 EDT [facility] RDW-CV 14.4 <14.7 % 07/11/2023 7:30 EDT [facility] RDW-SD 45.9 <50.4 fl 07/11/2023 7:30 EDT [facility] PLT 364 141 - 377 K/cmm 07/11/2023 7:30 EDT [facility] MPV 10.0 9.5 - 12.7 fL 07/11/2023 7:30 EDT [facility] Blood VENOUS BLOOD / Unknown Venipuncture / Unknown 07/11/2023 6:36 EDT 07/11/2023 7:10 EDT Joan Menon MD PACKAGES & DNA PROBE ORDERABLES [facility] [address] [place] [address] * (ABNORMAL) BASIC METABOLIC PANEL (BMP) (07/11/2023 6:36 EDT) Sodium 130(L) 136 - 145 mmol/L 07/11/2023 7:48 EDT [facility] Potassium 4.5 3.5 - 5.0 mmol/L 07/11/2023 7:48 EDT [facility] Chloride 98 96 - 110 mmol/L 07/11/2023 7:48 EDT [facility] CO2 Total 23 22 - 32 mmol/L 07/11/2023 7:48 EDT [facility] Anion Gap 9 5 - 14 mmol/L 07/11/2023 7:48 EDT [facility] Glucose 143(H) 70 - 99 mg/dl 07/11/2023 7:48 T [facility] Calcium 8.2(L) 8.5 - 10.5 mg/dL 07/11/2023 7:48 EDT [facility] BUN 17 10 - 26 mg/dL 07/11/2023 7:48 T [facility] Creatinine 0.49(L) 0.52 - 1.04 mg/dL 07/11/2023 7:48 T [facility] eGFR 113 >60 mL/min/1.73 m2 07/11/2023 7:48 T [facility] Blood VENOUS BLOOD / Unknown Venipuncture / Unknown 07/11/2023 6:36 EDT 07/11/2023 7:11 EDT Joan Menon MD CHEMISTRY & BLOOD GA S ORDERABLES [facility] [address] [place] [address] * OSMOLALITY (07/11/2023 6:36 EDT) Osmolality, Serum 276 275 - 295 mOsm/kg 07/11/2023 8:16 EDT [facility] Blood VENOUS BLOOD / Unknown Venipuncture / Unknown 07/11/2023 6:36 EDT 07/11/2023 7:11 EDT Narrative Authorizing Provider Result Ambreen Buenrostro MD CHEMISTRY & BLOOD GA S ORDERABLES Performing Organization Address [facility] Co de Phone Number [facility] [address] [place] [address] * CREATININE, URINE RANDOM (07/11/2023 4:58 EDT) Creatinine, Urine 58.3 See Note mg/dL 07/11/2023 5:34 EDT [facility] Comment: NOTE: Reference range has not been established for creatinine concentration in random urine specimens. Urine URINE / Unknown Urine Collect / Unknown 07/11/2023 4:58 EDT 07/11/2023 5:09 EDT Leesa Buenrostro MD URINALYSIS ORDERABLE S Performing Organization Address [facility] de Phone Number [facility] [address] [place] [address] * UREA NITROGEN, URINE RANDOM (07/11/2023 4:58 EDT) Urea Nitrogen, Urine 576 See Note mg/dL 07/11/2023 5:34 EDT [facility] Comment: NOTE: Reference range has not been established for urea nitrogen concentration in random urine specimens. Urine URINE / Unknown Urine Collect / Unknown 07/11/2023 4:58 EDT 07/11/2023 5:09 EDT Leesa Buenrostro MD URINALYSIS ORDERABLE S Performing Organization Address [facility] Co de Phone Number [facility] [address] [place] [address] * OSMOLALITY, URINE (07/11/2023 4:58 EDT) Osmolality, Urine 336 150 - 1,150 mOsm/kg 07/11/2023 5:36 EDT [facility] Urine URINE / Unknown Urine Collect / Unknown 07/11/2023 4:58 EDT 07/11/2023 5:09 EDT Leesa Buenrostro MD URINALYSIS ORDERABLE S Performing Organization Address City/[facility]/ZIP Co de Phone Number [facility] [address], [place] [id number] * (ABNORMAL) POCT GLUCOSE, INTERFACED (07/10/2023 21:29 EDT) Glucose, POC 305(H) 70 - 100 mg/dL 07/10/2023 21:30 EDT [facility] HN LAB POC COMMENT (GLUCOSE) Test Performed by Nursing Services 07/10/2023 21:30 EDT [facility] Blood CAPILLARY BLOOD / Unknown 07/10/2023 21:29 EDT 07/10/2023 21:30 EDT Moo Monique MD POINT OF CARE TEST ORDERABLES Performing Organization Address [facility] Co de Phone Number [facility] [address] [place] [address] * (ABNORMAL) POCT GLUCOSE, INTERFACED (07/10/2023 19:30 EDT) Glucose, POC 176(H) 70 - 100 mg/dL 07/10/2023 19:37 EDT [facility] HN LAB POC COMMENT (GLUCOSE) Test Performed by Nursing Services 07/10/2023 19:37 EDT [facility] Blood CAPILLARY BLOOD / Unknown 07/10/2023 19:30 EDT 07/10/2023 19:37 EDT Moo Monique MD POINT OF CARE TEST ORDERABLES Performing Organization Address [facility] Co de Phone Number [facility] [address] [place] [address] * (ABNORMAL) POCT GLUCOSE, INTERFACED (07/10/2023 18:20 EDT) Glucose, POC 216(H) 70 - 100 mg/dL 07/10/2023 18:21 EDT [facility] HN LAB POC COMMENT (GLUCOSE) Test Performed by Nursing Services 07/10/2023 18:21 EDT [facility] Blood CAPILLARY BLOOD / Unknown 07/10/2023 18:20 EDT 07/10/2023 18:21 EDT Tai Azar MD POINT OF CARE TEST ORDERABLES Performing Organization Address City/[facility]/ZIP Co de Phone Number [facility] [address] [place] [address] * (ABNORMAL) POCT GLUCOSE, INTERFACED (07/10/2023 14:36 EDT) Glucose, POC 207(H) 70 - 100 mg/dL 07/10/2023 14:38 EDT [facility] HN LAB POC COMMENT (GLUCOSE) Test Performed by Nursing Services 07/10/2023 14:38 EDT [facility] Blood CAPILLARY BLOOD / Unknown 07/10/2023 14:36 EDT 07/10/2023 14:38 EDT Tai Azar MD POINT OF CARE TEST ORDERABLES Performing Organization Address [facility] Co de Phone Number [facility] [address] [place] [address] * (ABNORMAL) POCT GLUCOSE, INTERFACED (07/10/2023 11:59 EDT) Glucose, POC 157(H) 70 - 100 mg/dL 07/10/2023 12:01 EDT [facility] HN LAB POC COMMENT (GLUCOSE) Test Performed by Nursing Services 07/10/2023 12:01 EDT [facility] Blood CAPILLARY BLOOD / Unknown 07/10/2023 11:59 EDT 07/10/2023 12:00 EDT Tai Azar MD POINT OF CARE TEST ORDERABLES [facility] [address] [place] [address] * (ABNORMAL) POCT GLUCOSE, INTERFACED (07/10/2023 8:32 EDT) Glucose, POC 225(H) 70 - 100 mg/dL 07/10/2023 8:33 EDT [facility] HN LAB POC COMMENT (GLUCOSE) Test Performed by Nursing Services 07/10/2023 8:33 EDT [facility] Blood CAPILLARY BLOOD / Unknown 07/10/2023 8:32 EDT 07/10/2023 8:33 EDT Tai Azar MD POINT OF CARE TEST ORDERABLES Performing Organization Address City/[facility]/ZIP Co de Phone Number [facility] [address] [place] [address] * (ABNORMAL) POCT GLUCOSE, INTERFACED (07/09/2023 20:38 EDT) Glucose, POC 268(H) 70 - 100 mg/dL 07/09/2023 20:43 EDT [facility] HN LAB POC COMMENT (GLUCOSE) Test Performed by Nursing Services 07/09/2023 20:43 EDT [facility] Blood CAPILLARY BLOOD / Unknown 07/09/2023 20:38 EDT 07/09/2023 20:43 EDT Tai Azra MD POINT OF CARE TEST ORDERABLES [facility] [address] [place] [address] * (ABNORMAL) POCT GLUCOSE, INTERFACED (07/09/2023 17:06 EDT) Glucose, POC 189(H) 70 - 100 mg/dL 07/09/2023 17:07 EDT [facility] HN LAB POC COMMENT (GLUCOSE) Test Performed by Nursing Services 07/09/2023 17:07 EDT [facility] Blood CAPILLARY BLOOD / Unknown 07/09/2023 17:06 EDT 07/09/2023 17:07 EDT Tai Azar MD POINT OF CARE TEST ORDERABLES Performing Organization Address City/[facility]/ZIP Co de Phone Number [facility] [address], [place] [phone] * (ABNORMAL) POCT GLUCOSE, INTERFACED (07/09/2023 11:59 EDT) Glucose, POC 235(H) 70 - 100 mg/dL 07/09/2023 12:00 EDT [facility] HN LAB POC COMMENT (GLUCOSE) Test Performed by Nursing Services 07/09/2023 12:00 EDT [facility] Blood CAPILLARY BLOOD / Unknown 07/09/2023 11:59 EDT 07/09/2023 12:00 EDT Tai Azar MD POINT OF CARE TEST ORDERABLES Performing Organization Address [facility] Co de Phone Number [facility] [address] [place] [phone] * (ABNORMAL) POCT GLUCOSE, INTERFACED (07/09/2023 7:44 EDT) Glucose, POC 212(H) 70 - 100 mg/dL 07/09/2023 7:45 EDT [facility] HN LAB POC COMMENT (GLUCOSE) Test Performed by Nursing Services 07/09/2023 7:45 EDT [facility] Blood CAPILLARY BLOOD / Unknown 07/09/2023 7:44 EDT 07/09/2023 7:45 EDT Tai Azar MD POINT OF CARE TEST ORDERABLES Performing Organization Address City/[facility]/ZIP Co de Phone Number [facility] [address] [place] [address] * (ABNORMAL) DIFFERENTIAL, AUTOMATED MANUAL (07/09/2023 6:37 EDT) % Neutrophils 72.2 Not Indicated % 07/09/2023 7:36 EDT [facility] % Lymphocytes 15.7 Not Indicated % 07/09/2023 7:36 [facility] % Monocytes 7.8 Not Indicated % 07/09/2023 7:36 [facility] % Eosinophils 1.7 Not Indicated % 07/09/2023 7:36 [facility] % Myelocytes 2.6 Not Indicated % 07/09/2023 7:36 [facility] Absolute Neutrophils 6.95 2.20 - 8.85 K/cmm 07/09/2023 7:36 [facility] Absolute Lymphocytes 1.51 1.09 - 3.30 K/cmm 07/09/2023 7:36 [facility] Absolute Monocytes 0.75 0.10 - 0.80 K/cmm 07/09/2023 7:36 [facility] Absolute Eosinophils 0.16 0.03 - 0.61 K/cmm 07/09/2023 7:36 [facility] Absolute Myelocytes 0.25(H) <=0.00 K/cmm 07/09/2023 7:36 [facility] Type of Differential: Manual 07/09/2023 7:36 [facility] Blood VENOUS BLOOD / Unknown Venipuncture / Unknown 07/09/2023 6:37 EDT 07/09/2023 6:49 EDT Ayden Jennings HEMATOLOGY & PF4 ORD ERABLES [facility] [address], [place] [phone] * (ABNORMAL) BASIC METABOLIC PANEL (BMP) (07/09/2023 6:37 EDT) Sodium 125(L) 136 - 145 mmol/L 07/09/2023 8:02 T [facility] Potassium 4.3 3.5 - 5.0 mmol/L 07/09/2023 8:02 [facility] Chloride 92(L) 96 - 110 mmol/L 07/09/2023 8:02 [facility] CO2 Total 24 22 - 32 mmol/L 07/09/2023 8:02 [facility] Anion Gap 9 5 - 14 mmol/L 07/09/2023 8:02 [facility] Glucose 234(H) 70 - 99 mg/dl 07/09/2023 8:02 [facility] Calcium 8.3(L) 8.5 - 10.5 mg/dL 07/09/2023 8:02 [facility] BUN 19 10 - 26 mg/dL 07/09/2023 8:02 [facility] Creatinine 0.47(L) 0.52 - 1.04 mg/dL 07/09/2023 8:02 [facility] eGFR 114 >60 mL/min/1.73 m2 07/09/2023 8:02 [facility] Blood VENOUS BLOOD / Unknown Venipuncture / Unknown 07/09/2023 6:37 EDT 07/09/2023 7:34 EDT Reza Brito MD CHEMISTRY & BLOOD GA S ORDERABLES [facility] [address], [place] [phone] * MAGNESIUM (07/09/2023 6:37 EDT) Magnesium 1.9 1.7 - 2.8 mg/dL 07/09/2023 8:02 [facility] Blood VENOUS BLOOD / Unknown Venipuncture / Unknown 07/09/2023 6:37 EDT 07/09/2023 7:34 EDT Reza Brito MD CHEMISTRY & BLOOD GA S ORDERABLES Performing Organization Address City/[facility]/ZIP Co de Phone Number [facility] [address] [place] [address] * PHOSPHORUS (07/09/2023 6:37 EDT) Phosphorus 4.2 2.5 - 4.5 mg/dL 07/09/2023 8:02 EDT [facility] Blood VENOUS BLOOD / Unknown Venipuncture / Unknown 07/09/2023 6:37 EDT 07/09/2023 7:34 EDT Reza Brito MD CHEMISTRY & BLOOD GA S ORDERABLES Performing Organization Address [facility]/ZIP Co de Phone Number [facility] [address] [place] [address] * (ABNORMAL) COMPLETE BLOOD COUNT AND DIFFERENTIAL (07/09/2023 6:37 EDT) Pathologist [facility] WBC 9.62 4.00 - 12.40 K/cmm 07/09/2023 7:03 [facility] RBC 2.69(L) 3.86 - 5.04 M/cmm 07/09/2023 7:03 [facility] Hemoglobin 7.6(L) 11.6 - 15.2 g/dL 07/09/2023 7:03 [facility] HCT 22.8(L) 34.9 - 44.4 % 07/09/2023 7:03 [facility] MCV 85 81 - 98 fL 07/09/2023 7:03 [facility] MCH 28.3 26.7 - 33.3 pg 07/09/2023 7:03 [facility] MCHC 33.3 32.1 - 35.9 g/dL 07/09/2023 7:03 [facility] RDW-CV 14.3 <14.7 % 07/09/2023 7:03 [facility] RDW-SD 44.3 <50.4 fl 07/09/2023 7:03 EDT [facility] PLT 401(H) 141 - 377 K/cmm 07/09/2023 7:03 EDT [facility] MPV 9.6 9.5 - 12.7 fL 07/09/2023 7:03 EDT [facility] Blood VENOUS BLOOD / Unknown Venipuncture / Unknown 07/09/2023 6:37 EDT 07/09/2023 6:49 EDT Ayden Jennings PACKAGES & DNA PROBE ORDERABLES Performing Organization Address City/[facility]/ZIP Co de Phone Number [facility] [address] [place] [address] * (ABNORMAL) SODIUM (07/08/2023 23:31 EDT) Sodium 125(L) 136 - 145 mmol/L 07/09/2023 0:30 EDT [facility] Blood VENOUS BLOOD / Unknown Venipuncture / Unknown 07/08/2023 23:31 EDT 07/09/2023 0:03 EDT Tai Azar MD CHEMISTRY & BLOOD G ORDERABLES Performing Organization Address City/[facility]/ZIP Co de Phone Number [facility] [address] [place] [phone] * (ABNORMAL) POCT GLUCOSE, INTERFACED (07/08/2023 21:52 EDT) Glucose, POC 206(H) 70 - 100 mg/dL 07/08/2023 21:54 EDT [facility] HN LAB POC COMMENT (GLUCOSE) Test Performed by Nursing Services 07/08/2023 21:54 EDT [facility] Blood CAPILLARY BLOOD / Unknown 07/08/2023 21:52 EDT 07/08/2023 21:54 EDT Tai Azar MD POINT OF CARE TEST ORDERABLES Performing Organization Address [facility]/ZIP Co de Phone Number [facility] [address] [place] [address] * (ABNORMAL) SODIUM (07/08/2023 18:49 EDT) Sodium 125(L) 136 - 145 mmol/L 07/08/2023 20:07 EDT [facility] Blood VENOUS BLOOD / Unknown Venipuncture / Unknown 07/08/2023 18:49 EDT 07/08/2023 19:39 EDT Tai Azar MD CHEMISTRY & BLOOD G ORDERABLES Performing Organization Address [facility]/ZIP Co de Phone Number [facility] [address] [place] [address] * (ABNORMAL) POCT GLUCOSE, INTERFACED (07/08/2023 17:41 EDT) [facility] Glucose, POC 209(H) 70 - 100 mg/dL 07/08/2023 17:42 EDT [facility] HN LAB POC COMMENT (GLUCOSE) Test Performed by Nursing Services 07/08/2023 17:42 EDT [facility] Blood CAPILLARY BLOOD / Unknown 07/08/2023 17:41 EDT 07/08/2023 17:42 EDT Tai Azar MD POINT OF CARE TEST ORDERABLES Performing Organization Address City/[facility]/ZIP Co de Phone Number [facility] [address], [place] [phone] * (ABNORMAL) POCT GLUCOSE, INTERFACED (07/08/2023 13:03 EDT) Glucose, POC 185(H) 70 - 100 mg/dL 07/08/2023 13:04 EDT [facility] HN LAB POC COMMENT (GLUCOSE) Test Performed by Nursing Services 07/08/2023 13:04 EDT [facility] Blood CAPILLARY BLOOD / Unknown 07/08/2023 13:03 EDT 07/08/2023 13:04 EDT Tai Azar MD POINT OF CARE TEST ORDERABLES Performing Organization Address City/[facility]/ZIP Co de Phone Number [facility] [address] [place] [address] * (ABNORMAL) SODIUM (07/08/2023 12:03 EDT) [facility] Sodium 126(L) 136 - 145 mmol/L 07/08/2023 13:13 EDT [facility] Blood VENOUS BLOOD / Unknown Venipuncture / Unknown 07/08/2023 12:03 EDT 07/08/2023 12:31 EDT Tai Azar MD CHEMISTRY & BLOOD G ORDERABLES Performing Organization Address City/[facility]/ZIP Co de Phone Number [facility] [address] [place] [address] * (ABNORMAL) POCT GLUCOSE, INTERFACED (07/08/2023 7:32 EDT) [facility] Glucose, POC 192(H) 70 - 100 mg/dL 07/08/2023 7:33 EDT [facility] HN LAB POC COMMENT (GLUCOSE) Test Performed by Nursing Services 07/08/2023 7:33 EDT [facility] Blood CAPILLARY BLOOD / Unknown 07/08/2023 7:32 EDT 07/08/2023 7:33 EDT Tai Azar MD POINT OF CARE TEST ORDERABLES Performing Organization Address City/[facility]/ZIP Co de Phone Number [facility] [address] [place] [address] * (ABNORMAL) DIFFERENTIAL, AUTOMATED MANUAL (07/08/2023 6:20 EDT) [facility] % Neutrophils 71.3 Not Indicated % 07/08/2023 7:28 [facility] % Lymphocytes 18.3 Not Indicated % 07/08/2023 7:28 [facility] % Monocytes 4.3 Not Indicated % 07/08/2023 7:28 [facility] % Eosinophils 0.9 Not Indicated % 07/08/2023 7:28 [facility] % Basophils 1.7 Not Indicated % 07/08/2023 7:28 [facility] % Metamyelocytes 2.6 Not Indicated % 07/08/2023 7:28 [facility] % Myelocytes 0.9 Not Indicated % 07/08/2023 7:28 [facility] Absolute Neutrophils 6.53 2.20 - 8.85 K/cmm 07/08/2023 7:28 [facility] Absolute Lymphocytes 1.68 1.09 - 3.30 K/cmm 07/08/2023 7:28 [facility] Absolute Monocytes 0.39 0.10 - 0.80 K/cmm 07/08/2023 7:28 [facility] Absolute Eosinophils 0.08 0.03 - 0.61 K/cmm 07/08/2023 7:28 [facility] ABS Basophils 0.16(H) 0.01 - 0.11 K/cmm 07/08/2023 7:28 [facility] Absolute Metamyelocytes 0.24(H) <=0.00 K/cmm 07/08/2023 7:28 [facility] Absolute Myelocytes 0.08(H) <=0.00 K/cmm 07/08/2023 7:28 [facility] Type of Differential: Manual 07/08/2023 7:28 [facility] Blood VENOUS BLOOD / Unknown Venipuncture / Unknown 07/08/2023 6:20 EDT 07/08/2023 6:35 EDT Ayden Jennings HEMATOLOGY & PF4 ORD ERABLES [facility] [address] [place] [address] * (ABNORMAL) BASIC METABOLIC PANEL (BMP) (07/08/2023 6:20 EDT) Sodium 126(L) 136 - 145 mmol/L 07/08/2023 7:19 [facility] Potassium 4.1 3.5 - 5.0 mmol/L 07/08/2023 7:19 [facility] Chloride 93(L) 96 - 110 mmol/L 07/08/2023 7:19 [facility] CO2 Total 23 22 - 32 mmol/L 07/08/2023 7:19 [facility] Anion Gap 10 5 - 14 mmol/L 07/08/2023 7:19 [facility] Glucose 191(H) 70 - 99 mg/dl 07/08/2023 7:19 [facility] Calcium 8.5 8.5 - 10.5 mg/dL 07/08/2023 7:19 [facility] BUN 16 10 - 26 mg/dL 07/08/2023 7:19 [facility] Creatinine 0.47(L) 0.52 - 1.04 mg/dL 07/08/2023 7:19 [facility] eGFR 114 >60 mL/min/1.73 m2 07/08/2023 7:19 [facility] Blood VENOUS BLOOD / Unknown Venipuncture / Unknown 07/08/2023 6:20 EDT 07/08/2023 6:37 EDT Reza Brito MD CHEMISTRY & BLOOD GA S ORDERABLES [facility] [address] [place] [address] * MAGNESIUM (07/08/2023 6:20 EDT) Magnesium 1.8 1.7 - 2.8 mg/dL 07/08/2023 7:19 EDT [facility] Blood VENOUS BLOOD / Unknown Venipuncture / Unknown 07/08/2023 6:20 EDT 07/08/2023 6:37 EDT Reza Brito MD CHEMISTRY & BLOOD GA S ORDERABLES Performing Organization Address City/[facility]/ZIP Co de Phone Number [facility] [address] [place] [address] * PHOSPHORUS (07/08/2023 6:20 EDT) Phosphorus 4.5 2.5 - 4.5 mg/dL 07/08/2023 7:19 EDT [facility] Blood VENOUS BLOOD / Unknown Venipuncture / Unknown 07/08/2023 6:20 EDT 07/08/2023 6:37 EDT Reza Brito MD CHEMISTRY & BLOOD GA S ORDERABLES Performing Organization Address City/[facility]/ZIP Co de Phone Number [facility] [address] [place] [address] * (ABNORMAL) COMPLETE BLOOD COUNT AND DIFFERENTIAL (07/08/2023 6:20 EDT) WBC 9.16 4.00 - 12.40 K/cmm 07/08/2023 6:44 EDT [facility] RBC 2.81(L) 3.86 - 5.04 M/cmm 07/08/2023 6:44 EDT [facility] Hemoglobin 8.2(L) 11.6 - 15.2 g/dL 07/08/2023 6:44 T [facility] HCT 24.1(L) 34.9 - 44.4 % 07/08/2023 6:44 EDT [facility] MCV 86 81 - 98 fL 07/08/2023 6:44 EDT [facility] MCH 29.2 26.7 - 33.3 pg 07/08/2023 6:44 EDT [facility] MCHC 34.0 32.1 - 35.9 g/dL 07/08/2023 6:44 EDT [facility] RDW-CV 14.3 <14.7 % 07/08/2023 6:44 EDT [facility] RDW-SD 44.8 <50.4 fl 07/08/2023 6:44 EDT [facility] PLT 447(H) 141 - 377 K/cmm 07/08/2023 6:44 EDT [facility] MPV 9.3(L) 9.5 - 12.7 fL 07/08/2023 6:44 EDT [facility] Blood VENOUS BLOOD / Unknown Venipuncture / Unknown 07/08/2023 6:20 EDT 07/08/2023 6:35 EDT Ayden Jennings PACKAGES & DNA PROBE ORDERABLES Performing Organization Address [facility] Co de Phone Number [facility] [address], [place] [phone] * (ABNORMAL) SODIUM (07/07/2023 23:48 EDT) Sodium 126(L) 136 - 145 mmol/L 07/08/2023 0:19 EDT [facility] Blood VENOUS BLOOD / Unknown Venipuncture / Unknown 07/07/2023 23:48 EDT 07/07/2023 23:57 EDT Tai Azar MD CHEMISTRY & BLOOD G ORDERABLES Performing Organization Address [facility]/ZIP Co de Phone Number [facility] [address] [place] [address] * (ABNORMAL) POCT GLUCOSE, INTERFACED (07/07/2023 21:15 EDT) Glucose, POC 195(H) 70 - 100 mg/dL 07/07/2023 21:17 EDT [facility] HN LAB POC COMMENT (GLUCOSE) Test Performed by Nursing Services 07/07/2023 21:17 EDT [facility] Blood CAPILLARY BLOOD / Unknown 07/07/2023 21:15 EDT 07/07/2023 21:17 EDT Tai Azar MD POINT OF CARE TEST ORDERABLES [facility] [address] [place] [address] * (ABNORMAL) SODIUM (07/07/2023 18:01 EDT) Sodium 127(L) 136 - 145 mmol/L 07/07/2023 18:22 EDT [facility] Blood VENOUS BLOOD / Unknown Venipuncture / Unknown 07/07/2023 18:01 EDT 07/07/2023 18:11 EDT Tai Azar MD CHEMISTRY & BLOOD G ORDERABLES [facility] [address] [place] [address] * (ABNORMAL) POCT GLUCOSE, INTERFACED (07/07/2023 17:31 EDT) Glucose, POC 217(H) 70 - 100 mg/dL 07/07/2023 17:32 EDT [facility] HN LAB POC COMMENT (GLUCOSE) Test Performed by Nursing Services 07/07/2023 17:32 EDT [facility] Blood CAPILLARY BLOOD / Unknown 07/07/2023 17:31 EDT 07/07/2023 17:32 EDT Tai Azar MD POINT OF CARE TEST ORDERABLES [facility] [address] [place] [address] * (ABNORMAL) SODIUM (07/07/2023 12:45 EDT) Sodium 129(L) 136 - 145 mmol/L 07/07/2023 13:19 EDT [facility] Blood VENOUS BLOOD / Unknown Venipuncture / Unknown 07/07/2023 12:45 EDT 07/07/2023 12:57 EDT Tai Azar MD CHEMISTRY & BLOOD G ORDERABLES Performing Organization Address City/[facility] Co de Phone Number [facility] [address] [place] [address] * (ABNORMAL) POCT GLUCOSE, INTERFACED (07/07/2023 11:49 EDT) Glucose, POC 199(H) 70 - 100 mg/dL 07/07/2023 11:51 EDT [facility] HN LAB POC COMMENT (GLUCOSE) Test Performed by Nursing Services 07/07/2023 11:51 EDT [facility] Blood CAPILLARY BLOOD / Unknown 07/07/2023 11:49 EDT 07/07/2023 11:51 EDT Tai Azar MD POINT OF CARE TEST ORDERABLES Performing Organization Address [facility] Co de Phone Number [facility] [address] [place] [phone] * (ABNORMAL) POCT GLUCOSE, INTERFACED (07/07/2023 6:54 EDT) Glucose, POC 194(H) 70 - 100 mg/dL 07/07/2023 6:56 EDT [facility] HN LAB POC COMMENT (GLUCOSE) Test Performed by Nursing Services 07/07/2023 6:56 EDT [facility] Blood CAPILLARY BLOOD / Unknown 07/07/2023 6:54 EDT 07/07/2023 6:56 EDT Tai Azar MD POINT OF CARE TEST ORDERABLES [facility] [address] [place] [address] * (ABNORMAL) DIFFERENTIAL, AUTOMATED MANUAL (07/07/2023 6:45 EDT) % Neutrophils 73.0 Not Indicated % 07/07/2023 7:37 [facility] % Lymphocytes 14.8 Not Indicated % 07/07/2023 7:37 [facility] % Monocytes 3.5 Not Indicated % 07/07/2023 7:37 [facility] % Eosinophils 3.5 Not Indicated % 07/07/2023 7:37 [facility] % Basophils 0.9 Not Indicated % 07/07/2023 7:37 [facility] % Metamyelocytes 2.6 Not Indicated % 07/07/2023 7:37 [facility] % Myelocytes 1.7 Not Indicated % 07/07/2023 7:37 [facility] Absolute Neutrophils 7.46 2.20 - 8.85 K/cmm 07/07/2023 7:37 [facility] Absolute Lymphocytes 1.51 1.09 - 3.30 K/cmm 07/07/2023 7:37 [facility] Absolute Monocytes 0.36 0.10 - 0.80 K/cmm 07/07/2023 7:37 [facility] Absolute Eosinophils 0.36 0.03 - 0.61 K/cmm 07/07/2023 7:37 [facility] ABS Basophils 0.09 0.01 - 0.11 K/cmm 07/07/2023 7:37 [facility] Absolute Metamyelocytes 0.27(H) <=0.00 K/cmm 07/07/2023 7:37 [facility] Absolute Myelocytes 0.17(H) <=0.00 K/cmm 07/07/2023 7:37 [facility] Type of Differential: Manual 07/07/2023 7:37 [facility] Blood VENOUS BLOOD / Unknown Venipuncture / Unknown 07/07/2023 6:45 EDT 07/07/2023 7:04 EDT Ayden Jane Jennings HEMATOLOGY & PF4 ORD ERABLES [facility] [address] [place] [address] * (ABNORMAL) BASIC METABOLIC PANEL (BMP) (07/07/2023 6:45 EDT) Sodium 128(L) 136 - 145 mmol/L 07/07/2023 7:41 [facility] Potassium 4.0 3.5 - 5.0 mmol/L 07/07/2023 7:41 [facility] Chloride 95(L) 96 - 110 mmol/L 07/07/2023 7:41 [facility] CO2 Total 25 22 - 32 mmol/L 07/07/2023 7:41 [facility] Anion Gap 8 5 - 14 mmol/L 07/07/2023 7:41 [facility] Glucose 186(H) 70 - 99 mg/dl 07/07/2023 7:41 [facility] Calcium 8.5 8.5 - 10.5 mg/dL 07/07/2023 7:41 [facility] BUN 15 10 - 26 mg/dL 07/07/2023 7:41 [facility] Creatinine 0.46(L) 0.52 - 1.04 mg/dL 07/07/2023 7:41 [facility] eGFR 115 >60 mL/min/1.73 m2 07/07/2023 7:41 [facility] Blood VENOUS BLOOD / Unknown Venipuncture / Unknown 07/07/2023 6:45 EDT 07/07/2023 7:07 EDT Reza Brito MD CHEMISTRY & BLOOD GA S ORDERABLES [facility] [address] [place] [address] * MAGNESIUM (07/07/2023 6:45 EDT) Magnesium 1.7 1.7 - 2.8 mg/dL 07/07/2023 7:41 EDT [facility] Blood VENOUS BLOOD / Unknown Venipuncture / Unknown 07/07/2023 6:45 EDT 07/07/2023 7:07 EDT Reza Brito MD CHEMISTRY & BLOOD GA S ORDERABLES Performing Organization Address City/[facility]/ZIP Co de Phone Number [facility] [address] [place], [place] [phone] * (ABNORMAL) PHOSPHORUS (07/07/2023 6:45 EDT) Pathologist [facility] Phosphorus 4.6(H) 2.5 - 4.5 mg/dL 07/07/2023 7:41 EDT [facility] Blood VENOUS BLOOD / Unknown Venipuncture / Unknown 07/07/2023 6:45 EDT 07/07/2023 7:07 EDT Reza Brito MD CHEMISTRY & BLOOD GA S ORDERABLES Performing Organization Address [facility] Co de Phone Number [facility] [address] [place], [place] [phone] * (ABNORMAL) COMPLETE BLOOD COUNT AND DIFFERENTIAL (07/07/2023 6:45 EDT) WBC 10.22 4.00 - 12.40 K/cmm 07/07/2023 7:15 EDT [facility] RBC 2.80(L) 3.86 - 5.04 M/cmm 07/07/2023 7:15 EDT [facility] Hemoglobin 8.2(L) 11.6 - 15.2 g/dL 07/07/2023 7:15 EDT [facility] HCT 23.8(L) 34.9 - 44.4 % 07/07/2023 7:15 EDT [facility] MCV 85 81 - 98 fL 07/07/2023 7:15 EDT [facility] MCH 29.3 26.7 - 33.3 pg 07/07/2023 7:15 EDT [facility] MCHC 34.5 32.1 - 35.9 g/dL 07/07/2023 7:15 EDT [facility] RDW-CV 14.7(H) <14.7 % 07/07/2023 7:15 T [facility] RDW-SD 45.6 <50.4 fl 07/07/2023 7:15 T [facility] PLT 493(H) 141 - 377 K/cmm 07/07/2023 7:15 EDT [facility] MPV 9.3(L) 9.5 - 12.7 fL 07/07/2023 7:15 EDT [facility] Blood VENOUS BLOOD / Unknown Venipuncture / Unknown 07/07/2023 6:45 EDT 07/07/2023 7:04 EDT Ayden Jennings PACKAGES & DNA PROBE ORDERABLES Performing Organization Address City/[facility]/ZIP Co de Phone Number [facility] [address] [place] [address] * (ABNORMAL) SODIUM (07/07/2023 0:23 EDT) Sodium 126(L) 136 - 145 mmol/L 07/07/2023 0:49 EDT [facility] Blood VENOUS BLOOD / Unknown Venipuncture / Unknown 07/07/2023 0:23 EDT 07/07/2023 0:26 EDT Tai Azar MD CHEMISTRY & BLOOD G ORDERABLES Performing Organization Address City/[facility]/ZIP Co de Phone Number [facility] [address] [place] [address] * (ABNORMAL) POCT GLUCOSE, INTERFACED (07/06/2023 20:31 EDT) Glucose, POC 185(H) 70 - 100 mg/dL 07/06/2023 20:44 EDT [facility] HN LAB POC COMMENT (GLUCOSE) Test Performed by Nursing Services 07/06/2023 20:44 EDT [facility] Blood CAPILLARY BLOOD / Unknown 07/06/2023 20:31 EDT 07/06/2023 20:44 EDT Tai Azar MD POINT OF CARE TEST ORDERABLES Performing Organization Address City/[facility]/ZIP Co de Phone Number [facility] [address] [place] [address] * (ABNORMAL) SODIUM (07/06/2023 17:48 EDT) Sodium 129(L) 136 - 145 mmol/L 07/06/2023 18:29 EDT [facility] Blood VENOUS BLOOD / Unknown Venipuncture / Unknown 07/06/2023 17:48 EDT 07/06/2023 18:14 EDT Tai Azar MD CHEMISTRY & BLOOD G ORDERABLES Performing Organization Address City/[facility]/ZIP Co de Phone Number [facility] [address] [place] [address] * (ABNORMAL) POCT GLUCOSE, INTERFACED (07/06/2023 17:48 EDT) Glucose, POC 188(H) 70 - 100 mg/dL 07/06/2023 17:49 EDT [facility] HN LAB POC COMMENT (GLUCOSE) Test Performed by Nursing Services 07/06/2023 17:49 EDT [facility] Blood CAPILLARY BLOOD / Unknown 07/06/2023 17:48 EDT 07/06/2023 17:49 EDT Tai Azar MD POINT OF CARE TEST ORDERABLES Performing Organization Address [facility]/ZIP Co de Phone Number [facility] [address] [place] [address] * (ABNORMAL) SODIUM (07/06/2023 12:36 EDT) [facility] Sodium 129(L) 136 - 145 mmol/L 07/06/2023 13:32 EDT [facility] Blood VENOUS BLOOD / Unknown Venipuncture / Unknown 07/06/2023 12:36 EDT 07/06/2023 12:55 EDT Tai Azar MD CHEMISTRY & BLOOD G ORDERABLES Performing Organization Address [facility] Co de Phone Number [facility] [address] [place] [address] * (ABNORMAL) POCT GLUCOSE, INTERFACED (07/06/2023 11:35 EDT) [facility] Glucose, POC 210(H) 70 - 100 mg/dL 07/06/2023 11:36 EDT [facility] HN LAB POC COMMENT (GLUCOSE) Test Performed by Nursing Services 07/06/2023 11:36 EDT [facility] Blood CAPILLARY BLOOD / Unknown 07/06/2023 11:35 EDT 07/06/2023 11:36 EDT Tai Azar MD POINT OF CARE TEST ORDERABLES Performing Organization Address City/[facility]/ZIP Co de Phone Number [facility] [address] [place] [address] * (ABNORMAL) DIFFERENTIAL, AUTOMATED MANUAL (07/06/2023 7:25 EDT) [facility] % Neutrophils 74.6 Not Indicated % 07/06/2023 8:09 EDT [facility] % Lymphocytes 13.1 Not Indicated % 07/06/2023 8:09 EDT [facility] % Monocytes 8.8 Not Indicated % 07/06/2023 8:09 [facility] % Eosinophils 0.9 Not Indicated % 07/06/2023 8:09 [facility] % Myelocytes 2.6 Not Indicated % 07/06/2023 8:09 [facility] Stomatocytes 2+ 07/06/2023 8:09 [facility] Basophilic Stippling Present in <2% of RBCs 07/06/2023 8:09 [facility] Clumped Platelets Few platelet clumps present 07/06/2023 8:09 [facility] Absolute Neutrophils 8.91(H) 2.20 - 8.85 K/cmm 07/06/2023 8:09 [facility] Absolute Lymphocytes 1.56 1.09 - 3.30 K/cmm 07/06/2023 8:09 [facility] Absolute Monocytes 1.05(H) 0.10 - 0.80 K/cmm 07/06/2023 8:09 [facility] Absolute Eosinophils 0.11 0.03 - 0.61 K/cmm 07/06/2023 8:09 [facility] Absolute Myelocytes 0.31(H) <=0.00 K/cmm 07/06/2023 8:09 [facility] Type of Differential: Manual 07/06/2023 8:09 [facility] Blood VENOUS BLOOD / Unknown Venipuncture / Unknown 07/06/2023 7:25 EDT 07/06/2023 7:29 EDT Ayden Jennings HEMATOLOGY & PF4 ORD ERABLES [facility] [address] [place] [address] * (ABNORMAL) BASIC METABOLIC PANEL (BMP) (07/06/2023 7:25 EDT) Sodium 129(L) 136 - 145 mmol/L 07/06/2023 8:03 EDT [facility] Potassium 3.7 3.5 - 5.0 mmol/L 07/06/2023 8:03 [facility] Chloride 94(L) 96 - 110 mmol/L 07/06/2023 8:03 [facility] CO2 Total 24 22 - 32 mmol/L 07/06/2023 8:03 [facility] Anion Gap 11 5 - 14 mmol/L 07/06/2023 8:03 [facility] Glucose 163(H) 70 - 99 mg/dl 07/06/2023 8:03 [facility] Calcium 8.5 8.5 - 10.5 mg/dL 07/06/2023 8:03 [facility] BUN 12 10 - 26 mg/dL 07/06/2023 8:03 [facility] Creatinine 0.44(L) 0.52 - 1.04 mg/dL 07/06/2023 8:03 [facility] eGFR 116 >60 mL/min/1.73 m2 07/06/2023 8:03 [facility] Blood VENOUS BLOOD / Unknown Venipuncture / Unknown 07/06/2023 7:25 EDT 07/06/2023 7:29 EDT Reza Brito MD CHEMISTRY & BLOOD GA S ORDERABLES [facility] [address] [place] [phone] * MAGNESIUM (07/06/2023 7:25 EDT) Magnesium 1.9 1.7 - 2.8 mg/dL 07/06/2023 8:03 EDT [facility] Blood VENOUS BLOOD / Unknown Venipuncture / Unknown 07/06/2023 7:25 EDT 07/06/2023 7:29 EDT Reza Brito MD CHEMISTRY & BLOOD GA S ORDERABLES [facility] [address] [place], [place] [phone] * PHOSPHORUS (07/06/2023 7:25 EDT) [facility] Phosphorus 4.2 2.5 - 4.5 mg/dL 07/06/2023 8:03 EDT [facility] Blood VENOUS BLOOD / Unknown Venipuncture / Unknown 07/06/2023 7:25 EDT 07/06/2023 7:29 EDT Reza Brito MD CHEMISTRY & BLOOD GA S ORDERABLES Performing Organization Address City/[facility] Co de Phone Number [facility] [address] [place], [place] [phone] * (ABNORMAL) COMPLETE BLOOD COUNT AND DIFFERENTIAL (07/06/2023 7:25 EDT) [facility] WBC 11.94 4.00 - 12.40 K/cmm 07/06/2023 7:57 [facility] RBC 3.11(L) 3.86 - 5.04 M/cmm 07/06/2023 7:57 [facility] Hemoglobin 9.2(L) 11.6 - 15.2 g/dL 07/06/2023 7:57 [facility] HCT 26.3(L) 34.9 - 44.4 % 07/06/2023 7:57 [facility] MCV 85 81 - 98 fL 07/06/2023 7:57 [facility] MCH 29.6 26.7 - 33.3 pg 07/06/2023 7:57 [facility] MCHC 35.0 32.1 - 35.9 g/dL 07/06/2023 7:57 [facility] RDW-CV 14.8(H) <14.7 % 07/06/2023 7:57 [facility] RDW-SD 45.7 <50.4 fl 07/06/2023 7:57 [facility] PLT 587(H) 141 - 377 K/cmm 07/06/2023 7:57 EDT [facility] MPV 9.2(L) 9.5 - 12.7 fL 07/06/2023 7:57 EDT [facility] Blood VENOUS BLOOD / Unknown Venipuncture / Unknown 07/06/2023 7:25 EDT 07/06/2023 7:29 EDT Ayden Jennings PACKAGES & DNA PROBE ORDERABLES Performing Organization Address [facility] Co de Phone Number [facility] [address] [place] [address] * (ABNORMAL) POCT GLUCOSE, INTERFACED (07/06/2023 6:22 EDT) Glucose, POC 141(H) 70 - 100 mg/dL 07/06/2023 6:27 EDT [facility] HN LAB POC COMMENT (GLUCOSE) Test Performed by Nursing Services 07/06/2023 6:27 EDT [facility] Blood CAPILLARY BLOOD / Unknown 07/06/2023 6:22 EDT 07/06/2023 6:26 EDT Tai Azar MD POINT OF CARE TEST ORDERABLES Performing Organization Address [facility] Co de Phone Number [facility] [address] [place], [place] [phone] * (ABNORMAL) SODIUM (07/05/2023 23:46 EDT) Sodium 129(L) 136 - 145 mmol/L 07/06/2023 0:15 EDT [facility] Blood VENOUS BLOOD / Unknown Venipuncture / Unknown 07/05/2023 23:46 EDT 07/06/2023 0:03 EDT Tai Azar MD CHEMISTRY & BLOOD G ORDERABLES [facility] [address] [place] [address] * (ABNORMAL) POCT GLUCOSE, INTERFACED (07/05/2023 20:38 EDT) Glucose, POC 156(H) 70 - 100 mg/dL 07/05/2023 22:03 EDT [facility] HN LAB POC COMMENT (GLUCOSE) Test Performed by Nursing Services 07/05/2023 22:03 EDT [facility] Blood CAPILLARY BLOOD / Unknown 07/05/2023 20:38 EDT 07/05/2023 22:03 EDT Tai Azar MD POINT OF CARE TEST ORDERABLES [facility] [address] [place] [address] * (ABNORMAL) SODIUM (07/05/2023 17:53 EDT) Pathologist [facility] Sodium 129(L) 136 - 145 mmol/L 07/05/2023 18:26 EDT [facility] Blood VENOUS BLOOD / Unknown Venipuncture / Unknown 07/05/2023 17:53 EDT 07/05/2023 17:59 EDT Tai Azar MD CHEMISTRY & BLOOD G ORDERABLES [facility] [address] [place] [address] * (ABNORMAL) POCT GLUCOSE, INTERFACED (07/05/2023 17:10 EDT) Glucose, POC 284(H) 70 - 100 mg/dL 07/05/2023 17:11 EDT [facility] HN LAB POC COMMENT (GLUCOSE) Test Performed by Nursing Services 07/05/2023 17:11 EDT [facility] Blood CAPILLARY BLOOD / Unknown 07/05/2023 17:10 EDT 07/05/2023 17:11 EDT Tai Azar MD POINT OF CARE TEST ORDERABLES Performing Organization Address [facility] Co de Phone Number [facility] [address] [place], [place] [phone] * (ABNORMAL) POCT GLUCOSE, INTERFACED (07/05/2023 13:46 EDT) Glucose, POC 152(H) 70 - 100 mg/dL 07/05/2023 13:48 EDT [facility] HN LAB POC COMMENT (GLUCOSE) Test Performed by Nursing Services 07/05/2023 13:48 EDT [facility] Blood CAPILLARY BLOOD / Unknown 07/05/2023 13:46 EDT 07/05/2023 13:47 EDT Moo Monique MD POINT OF CARE TEST ORDERABLES Performing Organization Address [facility] Co de Phone Number [facility] [address] [place] [address] * (ABNORMAL) SODIUM (07/05/2023 11:48 EDT) [facility] Sodium 129(L) 136 - 145 mmol/L 07/05/2023 12:41 EDT [facility] Blood VENOUS BLOOD / Unknown Venipuncture / Unknown 07/05/2023 11:48 EDT 07/05/2023 12:17 EDT Tai Azar MD CHEMISTRY & BLOOD G ORDERABLES Performing Organization Address City/[facility]/ZIP Co de Phone Number [facility] [address] [place] [address] * ECG REPORT - SCANNED (07/05/2023 11:36 EDT) 07/05/2023 11:3 6 EDT Scan 2 Process Designer PROCEDURE/MINOR VI GICAL ORDERABLES * (ABNORMAL) POCT GLUCOSE, INTERFACED (07/05/2023 10:36 EDT) Glucose, POC 212(H) 70 - 100 mg/dL 07/05/2023 11:23 EDT [facility] HN LAB POC COMMENT (GLUCOSE) Test Performed by Nursing Services 07/05/2023 11:23 EDT [facility] Blood CAPILLARY BLOOD / Unknown 07/05/2023 10:36 EDT 07/05/2023 11:23 EDT Tai Azar MD POINT OF CARE TEST ORDERABLES Performing Organization Address City/[facility]/ZIP Co de Phone Number [facility] [address] [place] [address] * TYPE AND SCREEN (07/05/2023 9:17 EDT) [facility] ABO O 07/05/2023 10:31 EDT [facility] Rh Factor Positive 07/05/2023 10:31 EDT [facility] Antibody Screen Negative 07/05/2023 10:31 EDT [facility] Specimen Expires: 07/08/2023 @ 23:59 07/05/2023 10:31 EDT [facility] Blood VENOUS BLOOD / Unknown Venipuncture / Unknown 07/05/2023 9:17 EDT 07/05/2023 9:32 EDT Leesa Buenrostro MD BLOOD BANK TESTS [facility] [address] [place] [address] * (ABNORMAL) POCT GLUCOSE, INTERFACED (07/05/2023 8:43 EDT) [facility] Signature Glucose, POC 128(H) 70 - 100 mg/dL 07/05/2023 8:44 EDT [facility] HN LAB POC COMMENT (GLUCOSE) Test Performed by Nursing Services 07/05/2023 8:44 EDT [facility] Blood CAPILLARY BLOOD / Unknown 07/05/2023 8:43 EDT 07/05/2023 8:44 EDT Tai Azar MD POINT OF CARE TEST ORDERABLES Performing Organization Address [facility]/ZIP Co de Phone Number [facility] [address] [place] [address] * PREPARE RED BLOOD CELLS (07/05/2023 8:17 EDT) Product Code [id number] [facility] BLOOD BANK Donor Number [id number] U [facility] BLOOD BANK Unit ABO O [facility] BLOOD B[facility] Unit Rh POS [facility] BLOOD B[facility] Unit Status TR^Transfuse [facility] BLOOD [facility] Product Expiration Date [id number] [facility] Unit Blood Type Code 5100 [facility] Volume 330 [facility] BLOOD BANK Coding System [id number] [facility] BLOOD BANK Blood 07/05/2023 8:17 EDT Leesa Buenrostro MD BLOOD BANK ORDERABLE S Performing Organization Address [facility]/ZIP Co de Phone Number [facility] [address] [place] [address] * (ABNORMAL) COMPLETE BLOOD COUNT (07/05/2023 7:44 EDT) WBC 8.56 4.00 - 12.40 K/cmm 07/05/2023 8:05 EDT [facility] RBC 2.29(L) 3.86 - 5.04 M/cmm 07/05/2023 8:05 EDT [facility] Hemoglobin 6.7(LL) 11.6 - 15.2 g/dL 07/05/2023 8:05 EDT [facility] HCT 20.1(LL) 34.9 - 44.4 % 07/05/2023 8:05 [facility] MCV 88 81 - 98 fL 07/05/2023 8:05 [facility] MCH 29.3 26.7 - 33.3 pg 07/05/2023 8:05 [facility] MCHC 33.3 32.1 - 35.9 g/dL 07/05/2023 8:05 [facility] RDW-CV 14.8(H) <14.7 % 07/05/2023 8:05 [facility] RDW-SD 48.2 <50.4 fl 07/05/2023 8:05 [facility] PLT 538(H) 141 - 377 K/cmm 07/05/2023 8:05 [facility] MPV 9.2(L) 9.5 - 12.7 fL 07/05/2023 8:05 [facility] Blood VENOUS BLOOD / Unknown Venipuncture / Unknown 07/05/2023 7:44 EDT 07/05/2023 7:49 EDT Leesa Porter MCCLENDON HEMATOLOGY & PF4 ORD ERABLES [facility] [address] [place] [address] * (ABNORMAL) DIFFERENTIAL, AUTOMATED MANUAL (07/05/2023 6:25 EDT) % Neutrophils 67.0 Not Indicated % 07/05/2023 7:33 [facility] % Lymphocytes 15.6 Not Indicated % 07/05/2023 7:33 [facility] % Monocytes 9.6 Not Indicated % 07/05/2023 7:33 [facility] % Eosinophils 1.7 Not Indicated % 07/05/2023 7:33 [facility] % Basophils 0.9 Not Indicated % 07/05/2023 7:33 [facility] % Metamyelocytes 1.7 Not Indicated % 07/05/2023 7:33 [facility] % Myelocytes 3.5 Not Indicated % 07/05/2023 7:33 [facility] Absolute Neutrophils 5.90 2.20 - 8.85 K/cmm 07/05/2023 7:33 [facility] Absolute Lymphocytes 1.37 1.09 - 3.30 K/cmm 07/05/2023 7:33 [facility] Absolute Monocytes 0.85(H) 0.10 - 0.80 K/cmm 07/05/2023 7:33 [facility] Absolute Eosinophils 0.15 0.03 - 0.61 K/cm 07/05/2023 7:33 [facility] ABS Basophils 0.08 0.01 - 0.11 K/cm 07/05/2023 7:33 [facility] Absolute Metamyelocytes 0.15(H) <=0.00 K/cmm 07/05/2023 7:33 [facility] Absolute Myelocytes 0.31(H) <=0.00 K/cmm 07/05/2023 7:33 [facility] Type of Differential: Manual 07/05/2023 7:33 [facility] Blood VENOUS BLOOD / Unknown Venipuncture / Unknown 07/05/2023 6:25 EDT 07/05/2023 6:40 EDT Ayden Jennings HEMATOLOGY & PF4 ORD ERABLES [facility] [address] [place] [id number] * (ABNORMAL) COMPLETE BLOOD COUNT AND DIFFERENTIAL (07/05/2023 6:25 EDT) WBC 8.81 4.00 - 12.40 K/cmm 07/05/2023 6:52 EDT [facility] RBC 2.26(L) 3.86 - 5.04 M/cmm 07/05/2023 6:52 [facility] Hemoglobin 6.6(LL) 11.6 - 15.2 g/dL 07/05/2023 6:52 EDT [facility] Comment:Pre-analytical varia bles cannot be excluded, suggest redraw where clinically indicated. HCT 19.6(LL) 34.9 - 44.4 % 07/05/2023 6:52 EDT [facility] Comment:Pre-analytical varia bles cannot be excluded, suggest redraw where clinically indicated. MCV 87 81 - 98 fL 07/05/2023 6:52 EDT [facility] MCH 29.2 26.7 - 33.3 pg 07/05/2023 6:52 EDT [facility] MCHC 33.7 32.1 - 35.9 g/dL 07/05/2023 6:52 EDT [facility] RDW-CV 14.8(H) <14.7 % 07/05/2023 6:52 EDT [facility] RDW-SD 47.4 <50.4 fl 07/05/2023 6:52 EDT [facility] PLT 548(H) 141 - 377 K/cmm 07/05/2023 6:52 T [facility] MPV 9.2(L) 9.5 - 12.7 fL 07/05/2023 6:52 EDT [facility] Blood VENOUS BLOOD / Unknown Venipuncture / Unknown 07/05/2023 6:25 EDT 07/05/2023 6:40 EDT Ayden Jennings PACKAGES & DNA PROBE ORDERABLES [facility] [address] [place] [address] * (ABNORMAL) ALBUMIN (07/05/2023 6:24 EDT) Albumin 2.5(L) 3.4 - 4.9 g/dL 07/05/2023 10:39 EDT [facility] Blood VENOUS BLOOD / Unknown Venipuncture / Unknown 07/05/2023 6:24 EDT 07/05/2023 6:50 EDT Tiff Aviles MD CHEMISTRY & BLOOD GA S ORDERABLES [facility] [address] [place] [address] * (ABNORMAL) BASIC METABOLIC PANEL (BMP) (07/05/2023 6:24 EDT) Sodium 130(L) 136 - 145 mmol/L 07/05/2023 7:27 EDT [facility] Potassium 4.0 3.5 - 5.0 mmol/L 07/05/2023 7:27 [facility] Chloride 96 96 - 110 mmol/L 07/05/2023 7:27 [facility] [facility] CO2 Total 27 22 - 32 mmol/L 07/05/2023 7:27 [facility] Anion Gap 7 5 - 14 mmol/L 07/05/2023 7:27 [facility] Glucose 105(H) 70 - 99 mg/dl 07/05/2023 7:27 [facility] Calcium 8.1(L) 8.5 - 10.5 mg/dL 07/05/2023 7:27 [facility] BUN 12 10 - 26 mg/dL 07/05/2023 7:27 [facility] Creatinine 0.51(L) 0.52 - 1.04 mg/dL 07/05/2023 7:27 [facility] eGFR 112 >60 mL/min/1.73 m2 07/05/2023 7:27 [facility] Blood VENOUS BLOOD / Unknown Venipuncture / Unknown 07/05/2023 6:24 EDT 07/05/2023 6:50 EDT Reza Brito MD CHEMISTRY & BLOOD GA S ORDERABLES [facility] [address] [place] [address] * MAGNESIUM (07/05/2023 6:24 EDT) Magnesium 2.0 1.7 - 2.8 mg/dL 07/05/2023 7:27 EDT [facility] Blood VENOUS BLOOD / Unknown Venipuncture / Unknown 07/05/2023 6:24 EDT 07/05/2023 6:50 EDT Reza Brito MD CHEMISTRY & BLOOD GA S ORDERABLES [facility] [address] [place] [address] * (ABNORMAL) PHOSPHORUS (07/05/2023 6:24 EDT) Phosphorus 5.1(H) 2.5 - 4.5 mg/dL 07/05/2023 7:27 EDT [facility] Blood VENOUS BLOOD / Unknown Venipuncture / Unknown 07/05/2023 6:24 EDT 07/05/2023 6:50 EDT Reza Brito MD CHEMISTRY & BLOOD GA S ORDERABLES Performing Organization Address [facility]/ZIP Co de Phone Number [facility] [address] [place] [address] * (ABNORMAL) SODIUM (07/05/2023 0:29 EDT) Sodium 131(L) 136 - 145 mmol/L 07/05/2023 1:05 EDT [facility] Blood VENOUS BLOOD / Unknown Venipuncture / Unknown 07/05/2023 0:29 EDT 07/05/2023 0:40 EDT Tai Azar MD CHEMISTRY & BLOOD G ORDERABLES Performing Organization Address [facility]/ZIP Co de Phone Number [facility] [address] [place] [address] * (ABNORMAL) POCT GLUCOSE, INTERFACED (07/04/2023 22:46 EDT) Glucose, POC 218(H) 70 - 100 mg/dL 07/04/2023 22:47 EDT [facility] HN LAB POC COMMENT (GLUCOSE) Test Performed by Nursing Services 07/04/2023 22:47 EDT [facility] Blood CAPILLARY BLOOD / Unknown 07/04/2023 22:46 EDT 07/04/2023 22:47 EDT Moo Monique MD POINT OF CARE TEST ORDERABLES Performing Organization Address City/[facility]/ZIP Co de Phone Number [facility] [address] [place] [address] * (ABNORMAL) POCT GLUCOSE, INTERFACED (07/04/2023 21:46 EDT) Glucose, POC 264(H) 70 - 100 mg/dL 07/04/2023 22:46 EDT [facility] HN LAB POC COMMENT (GLUCOSE) Test Performed by Nursing Services 07/04/2023 22:46 EDT [facility] Blood CAPILLARY BLOOD / Unknown 07/04/2023 21:46 EDT 07/04/2023 22:46 EDT Tai Azar MD POINT OF CARE TEST ORDERABLES [facility] [address] [place] [address] * (ABNORMAL) SODIUM (07/04/2023 17:41 EDT) Sodium 130(L) 136 - 145 mmol/L 07/04/2023 18:50 EDT [facility] Blood VENOUS BLOOD / Unknown Venipuncture / Unknown 07/04/2023 17:41 EDT 07/04/2023 17:51 EDT Tai Azar MD CHEMISTRY & BLOOD G ORDERABLES Performing Organization Address [facility] Co de Phone Number [facility] [address] [place] [address] * (ABNORMAL) POCT GLUCOSE, INTERFACED (07/04/2023 16:58 EDT) Glucose, POC 135(H) 70 - 100 mg/dL 07/04/2023 21:44 EDT [facility] HN LAB POC COMMENT (GLUCOSE) Test Performed by Nursing Services 07/04/2023 21:44 EDT [facility] Blood CAPILLARY BLOOD / Unknown 07/04/2023 16:58 EDT 07/04/2023 21:44 EDT Tai Azar MD POINT OF CARE TEST ORDERABLES Performing Organization Address [facility] Co de Phone Number [facility] [address] [place] [phone] * (ABNORMAL) SODIUM (07/04/2023 14:01 EDT) Sodium 128(L) 136 - 145 mmol/L 07/04/2023 14:56 EDT [facility] Blood VENOUS BLOOD / Unknown Venipuncture / Unknown 07/04/2023 14:01 EDT 07/04/2023 14:17 EDT Tai Azar MD CHEMISTRY & BLOOD G ORDERABLES Performing Organization Address City/[facility]/ZIP Co de Phone Number [facility] [address], [place] [phone] * ECG REPORT - SCANNED (07/04/2023 13:42 EDT) 07/04/2023 13:4 2 EDT Scan 2 Process Designer PROCEDURE/MINOR VI GICAL ORDERABLES * (ABNORMAL) POCT GLUCOSE, INTERFACED (07/04/2023 12:22 EDT) Glucose, POC 200(H) 70 - 100 mg/dL 07/04/2023 16:59 EDT [facility] HN LAB POC COMMENT (GLUCOSE) Test Performed by Nursing Services 07/04/2023 16:59 EDT [facility] Blood CAPILLARY BLOOD / Unknown 07/04/2023 12:22 EDT 07/04/2023 16:58 EDT Tai Azar MD POINT OF CARE TEST ORDERABLES Performing Organization Address City/[facility]/ZIP Co de Phone Number [facility] [address] [place] [address] * (ABNORMAL) BACTERIAL CULTURE/SMEAR, RESPIRATORY (07/04/2023 8:03 EDT) Organism ID Few mixed gram positive and gram negative organisms. No Staphylococcus aureus or Pseudomonas species isolated.(A) 07/06/2023 8:16 EDT [facility] Smear Few Neutrophils Present(A) 07/06/2023 8:16 EDT [facility] Smear No bacteria seen(A) 07/06/2023 8:16 EDT [facility] Sputum LEFT LUNG STRUCTURE / Unknown 07/04/2023 8:03 EDT 07/04/2023 8:41 EDT Lilli Garrison MD MICROBIOLOGY - GENER AL ORDERABLES [facility] [address] [place] [address] * (ABNORMAL) POCT GLUCOSE, INTERFACED (07/04/2023 7:11 EDT) Glucose, POC 189(H) 70 - 100 mg/dL 07/04/2023 7:12 EDT [facility] HN LAB POC COMMENT (GLUCOSE) Test Performed by Nursing Services 07/04/2023 7:12 EDT [facility] Blood CAPILLARY BLOOD / Unknown 07/04/2023 7:11 EDT 07/04/2023 7:12 EDT Tai Azar MD POINT OF CARE TEST ORDERABLES [facility] [address] [place] [address] * XR CHEST PORTABLE 1 VIEW (07/04/2023 [...] above interpretation and agree with the findings. [id number] Narrative 07/04/2023 9:31 EDT XR CHEST PORTABLE [...] on comparison cross-sectional imaging. Resulting Agency Comment [id number] Procedure Note Thong Nagel MD - 07/04/2023 [...] the above interpretation andagree with the findings. [id number] Lilli Garrison MD IMG DIAGNOSTIC IMAGI NG ORDERABLES * (ABNORMAL) BASIC METABOLIC PANEL (BMP) (07/04/2023 6:30 EDT) Sodium 130(L) 136 - 145 mmol/L 07/04/2023 7:19 [facility] Potassium 4.8 3.5 - 5.0 mmol/L 07/04/2023 7:19 [facility] Chloride 95(L) 96 - 110 mmol/L 07/04/2023 7:19 [facility] CO2 Total 25 22 - 32 mmol/L 07/04/2023 7:19 [facility] Anion Gap 10 5 - 14 mmol/L 07/04/2023 7:19 [facility] Glucose 188(H) 70 - 99 mg/dl 07/04/2023 7:19 [facility] Calcium 8.4(L) 8.5 - 10.5 mg/dL 07/04/2023 7:19 [facility] BUN 13 10 - 26 mg/dL 07/04/2023 7:19 [facility] Creatinine 0.47(L) 0.52 - 1.04 mg/dL 07/04/2023 7:19 [facility] eGFR 114 >60 mL/min/1.73 m2 07/04/2023 7:19 EDT [facility] Blood VENOUS BLOOD / Unknown Venipuncture / Unknown 07/04/2023 6:30 EDT 07/04/2023 6:43 EDT Reza Brito MD CHEMISTRY & BLOOD GA S ORDERABLES Performing Organization Address City/[facility]/ZIP Co de Phone Number [facility] [address] [place] [address] * MAGNESIUM (07/04/2023 6:30 EDT) Magnesium 2.0 1.7 - 2.8 mg/dL 07/04/2023 7:19 EDT [facility] Blood VENOUS BLOOD / Unknown Venipuncture / Unknown 07/04/2023 6:30 EDT 07/04/2023 6:43 EDT Reza Brito MD CHEMISTRY & BLOOD GA S ORDERABLES Performing Organization Address [facility] Co de Phone Number [facility] [address] [place] [address] * (ABNORMAL) PHOSPHORUS (07/04/2023 6:30 EDT) Phosphorus 4.8(H) 2.5 - 4.5 mg/dL 07/04/2023 7:19 EDT [facility] Blood VENOUS BLOOD / Unknown Venipuncture / Unknown 07/04/2023 6:30 EDT 07/04/2023 6:43 EDT Reza Brito MD CHEMISTRY & BLOOD GA S ORDERABLES Performing Organization Address City/[facility] Co de Phone Number [facility] [address] [place] [address] * (ABNORMAL) COMPLETE BLOOD COUNT AND DIFFERENTIAL (07/04/2023 6:30 EDT) WBC 15.69(H) 4.00 - 12.40 K/cmm 07/04/2023 6:50 [facility] RBC 2.63(L) 3.86 - 5.04 M/cmm 07/04/2023 6:50 [facility] Hemoglobin 7.6(L) 11.6 - 15.2 g/dL 07/04/2023 6:50 [facility] HCT 23.0(L) 34.9 - 44.4 % 07/04/2023 6:50 [facility] MCV 88 81 - 98 fL 07/04/2023 6:50 [facility] MCH 28.9 26.7 - 33.3 pg 07/04/2023 6:50 [facility] MCHC 33.0 32.1 - 35.9 g/dL 07/04/2023 6:50 [facility] RDW-CV 15.1(H) <14.7 % 07/04/2023 6:50 [facility] RDW-SD 48.4 <50.4 fl 07/04/2023 6:50 [facility] PLT 679(H) 141 - 377 K/cmm 07/04/2023 6:50 [facility] MPV 9.2(L) 9.5 - 12.7 fL 07/04/2023 6:50 [facility] % Neutrophils 79.7 % 07/04/2023 6:50 [facility] % Lymphocytes 6.3 % 07/04/2023 6:50 [facility] % Monocytes 7.5 % 07/04/2023 6:50 [facility] % Eosinophils 0.9 % 07/04/2023 6:50 [facility] % Basophils 0.6 % 07/04/2023 6:50 [facility] % Immature Grans 5.0 % 07/04/19 6:50 [facility] Absolute Neutrophils 12.52(H) 2.20 - 8.85 K/cmm 07/04/2023 6:50 EDT [facility] Absolute Lymphocytes 0.99(L) 1.09 - 3.30 K/cmm 07/04/2023 6:50 T [facility] Absolute Monocytes 1.17(H) 0.10 - 0.80 K/cmm 07/04/2023 6:50 T [facility] Absolute Eosinophils 0.14 0.03 - 0.61 K/cmm 07/04/2023 6:50 T [facility] ABS Basophils 0.09 0.01 - 0.11 K/cmm 07/04/2023 6:50 [facility] Absolute Immature Grans 0.78(H) 0.00 - 0.06 K/cmm 07/04/2023 6:50 T [facility] Type of Differential: Auto 07/04/2023 6:50 T [facility] Blood VENOUS BLOOD / Unknown Venipuncture / Unknown 07/04/2023 6:30 EDT 07/04/2023 6:42 EDT Ayden Jennings PACKAGES & DNA PROBE ORDERABLES [facility] [address], [place] [phone] * XR CHEST PORTABLE 1 VIEW (07/04/2023 4:14 EDT) Anatomical Region Laterality Modality Computed Radiogr aphy 07/04/2023 9:11 EDT Impressions 07/04/2023 9:11 EDT Interval increased opacification of the left lung reflecting a combination of left lower lobe pneumonia, left upper lobe atelectasis and large pleural effusion. I have personally reviewed the images and the above interpretation and agree with the findings. [id number] Narrative 07/04/2023 9:11 EDT XR CHEST PORTABLE [...] aside from degenerative changes Resulting Agency Comment [id number] Procedure Note Thong Nagel MD - 07/04/2023 [...] the above interpretation andagree with the findings. [id number] Lilli Garrison MD IMG DIAGNOSTIC IMAGI NG [...] above interpretation and agree with the findings. [id number] Narrative 07/04/2023 9:10 EDT XR CHEST PORTABLE [...] in the right shoulder. Resulting Agency Comment [id number] Procedure Note Thong Nagel MD - 07/04/2023 [...] the above interpretation andagree with the findings. [id number] Tiara Keller MD IMG DIAGNOSTIC IM AGING ORDERABLES * (ABNORMAL) SODIUM (07/03/2023 23:56 EDT) Sodium 129(L) 136 - 145 mmol/L 07/04/2023 0:24 EDT [facility] Blood VENOUS BLOOD / Unknown Venipuncture / Unknown 07/03/2023 23:56 EDT 07/04/2023 0:00 EDT Tai Azar MD CHEMISTRY & BLOOD G ORDERABLES [facility] [address] [place] [address] * (ABNORMAL) POCT GLUCOSE, INTERFACED (07/03/2023 21:14 EDT) Glucose, POC 173(H) 70 - 100 mg/dL 07/03/2023 21:15 EDT [facility] HN LAB POC COMMENT (GLUCOSE) Test Performed by Nursing Services 07/03/2023 21:15 EDT [facility] Blood CAPILLARY BLOOD / Unknown 07/03/2023 21:14 EDT 07/03/2023 21:15 EDT Tai Azar MD POINT OF CARE TEST ORDERABLES Performing Organization Address City/[facility]/ZIP Co de Phone Number [facility] [address] [place] [address] * (ABNORMAL) SODIUM (07/03/2023 17:44 EDT) Sodium 130(L) 136 - 145 mmol/L 07/03/2023 18:25 EDT [facility] Blood VENOUS BLOOD / Unknown Venipuncture / Unknown 07/03/2023 17:44 EDT 07/03/2023 17:52 EDT Tai Azar MD CHEMISTRY & BLOOD G ORDERABLES [facility] [address], [place] [phone] * (ABNORMAL) POCT GLUCOSE, INTERFACED (07/03/2023 17:18 EDT) Glucose, POC 194(H) 70 - 100 mg/dL 07/03/2023 17:23 EDT [facility] HN LAB POC COMMENT (GLUCOSE) Test Performed by Nursing Services 07/03/2023 17:23 EDT [facility] Blood CAPILLARY BLOOD / Unknown 07/03/2023 17:18 EDT 07/03/2023 17:23 EDT Tai Azar MD POINT OF CARE TEST ORDERABLES Performing Organization Address [facility] Co de Phone Number [facility] [address] [place] [address] * CT CHEST W CONTRAST (07/03/2023 16:47 [...] sternal fracture. Mild coronary artery atherosclerotic calcification. [id number] Narrative 07/03/2023 16:[address] CHEST W [...] body of the sternum. Resulting Agency Comment [id number] Procedure Note Redd Washington MD - 07/03/2023 [...] sternal fracture. Mild coronary artery atherosclerotic calcification. [id number] Leesa Buenrostro MD IMG CT ORDERABLES * (ABNORMAL) SODIUM (07/03/2023 15:35 EDT) Sodium 130(L) 136 - 145 mmol/L 07/03/2023 16:36 EDT [facility] Blood VENOUS BLOOD / Unknown Venipuncture / Unknown 07/03/2023 15:35 EDT 07/03/2023 15:42 EDT Tai Azar MD CHEMISTRY & BLOOD G ORDERABLES [facility] [address] [place] [address] * (ABNORMAL) POCT GLUCOSE, INTERFACED (07/03/2023 11:47 EDT) Glucose, POC 265(H) 70 - 100 mg/dL 07/03/2023 11:49 EDT [facility] HN LAB POC COMMENT (GLUCOSE) Test Performed by Nursing Services 07/03/2023 11:49 EDT [facility] Blood CAPILLARY BLOOD / Unknown 07/03/2023 11:47 EDT 07/03/2023 11:48 EDT Tai Azar MD POINT OF CARE TEST ORDERABLES [facility] [address], [place] [phone] * XR CHEST PORTABLE 1 VIEW (07/03/2023 8:44 EDT) Anatomical Region Laterality Modality Computed Radiogr aphy 07/03/2023 10:0 0 EDT Impressions 07/03/2023 10:00 EDT Increased left-sided pleural effusion. Progressive atelectasis of the left lung. No change in diffuse interstitial abnormalities in the right lung likely reflecting edema. I have personally reviewed the images and the above interpretation and agree with the findings. [id number] Narrative 07/03/2023 10:00 EDT XR CHEST PORTABLE 1 VIEW ??07/03/2023 8:37 AM Clinical History/comments: Sob; Comparison: Chest x-ray 07/01/2023, 06/30/2023, 06/26/2023, CT chest/20 04/2023. Technique: Single portable AP view of the [...] Right shoulder calcific tendinosis. Resulting Agency Comment [id number] Procedure Note Redd Washington MD - 07/03/2023 [...] the above interpretation andagree with the findings. [id number] Leesa Buenrostro MD IMG DIAGNOSTIC IMAGI NG ORDERABLES * (ABNORMAL) POCT GLUCOSE, INTERFACED (07/03/2023 8:19 EDT) [facility] Glucose, POC 169(H) 70 - 100 mg/dL 07/03/2023 8:21 EDT [facility] HN LAB POC COMMENT (GLUCOSE) Test Performed by Nursing Services 07/03/2023 8:21 EDT [facility] Blood CAPILLARY BLOOD / Unknown 07/03/2023 8:19 EDT 07/03/2023 8:21 EDT Hira Franklin MD POINT OF CARE TEST O RDERABLES [facility] [address] [place] [address] * (ABNORMAL) POCT GLUCOSE, INTERFACED (07/03/2023 6:59 EDT) [facility] Glucose, POC 163(H) 70 - 100 mg/dL 07/03/2023 7:00 EDT [facility] HN LAB POC COMMENT (GLUCOSE) Test Performed by Nursing Services 07/03/2023 7:00 [facility] Blood CAPILLARY BLOOD / Unknown 07/03/2023 6:59 EDT 07/03/2023 7:00 EDT Tai Azar MD POINT OF CARE TEST ORDERABLES [facility] [address] [place] [address] * (ABNORMAL) DIFFERENTIAL, AUTOMATED MANUAL (07/03/2023 6:29 EDT) [facility] % Neutrophils 72.8 Not Indicated % 07/03/2023 7:58 [facility] % Lymphocytes 8.8 Not Indicated % 07/03/2023 7:58 [facility] % Monocytes 9.6 Not Indicated % 07/03/2023 7:58 [facility] % Eosinophils 1.7 Not Indicated % 07/03/2023 7:58 [facility] % Basophils 1.8 Not Indicated % 07/03/2023 7:58 [facility] % Myelocytes 5.3 Not Indicated % 07/03/2023 7:58 [facility] Absolute Neutrophils 6.67 2.20 - 8.85 K/cmm 07/03/2023 7:58 [facility] Absolute Lymphocytes 0.81(L) 1.09 - 3.30 K/cmm 07/03/2023 7:58 [facility] Absolute Monocytes 0.88(H) 0.10 - 0.80 K/cmm 07/03/2023 7:58 [facility] Absolute Eosinophils 0.16 0.03 - 0.61 K/cmm 07/03/2023 7:58 [facility] ABS Basophils 0.16(H) 0.01 - 0.11 K/cmm 07/03/2023 7:58 EDT [facility] Absolute Myelocytes 0.49(H) <=0.00 K/cmm 07/03/2023 7:58 EDT [facility] Type of Differential: Manual 07/03/2023 7:58 EDT [facility] Blood VENOUS BLOOD / Unknown Venipuncture / Unknown 07/03/2023 6:29 EDT 07/03/2023 6:40 EDT Ayden Jane Jennings HEMATOLOGY & PF4 ORD ERABLES Performing Organization Address City/[facility]/ZIP Co de Phone Number [facility] [address] [place] [address] * HN LAB CBC SMEAR REVIEW (07/03/2023 6:29 EDT) Differential Comment Slide was examined by a technologist to verify the WBC and/or platelet count. 07/03/2023 7:39 EDT [facility] Blood VENOUS BLOOD / Unknown Venipuncture / Unknown 07/03/2023 6:29 EDT 07/03/2023 6:40 EDT Ayden Jane Jennings HEMATOLOGY & PF4 ORD ERABLES Performing Organization Address City/[facility]/ZIP Co de Phone Number [facility] [address] [place] [address] * TROPONIN I (07/03/2023 6:29 EDT) Troponin I (ng/mL) <0.034 <0.034 ng/mL 07/03/2023 7:12 EDT [facility] Blood VENOUS BLOOD / Unknown Venipuncture / Unknown 07/03/2023 6:29 EDT 07/03/2023 6:41 EDT Narrative [facility] - 07/03/2023 7:12 EDT The results of this assay can be falsely lowered due to the consumption of Biotin. Zahira Veras MD CHEMISTRY & BLOOD G ORDERABLES Performing Organization Address City/[facility]/ZIP Co de Phone Number [facility] [address] [place] [address] * (ABNORMAL) BASIC METABOLIC PANEL (BMP) (07/03/2023 6:29 EDT) Sodium 130(L) 136 - 145 mmol/L 07/03/2023 6:58 EDT [facility] Potassium 3.3(L) 3.5 - 5.0 mmol/L 07/03/2023 6:58 EDT [facility] Chloride 95(L) 96 - 110 mmol/L 07/03/2023 6:58 EDT [facility] CO2 Total 27 22 - 32 mmol/L 07/03/2023 6:58 EDT [facility] Anion Gap 8 5 - 14 mmol/L 07/03/2023 6:58 EDT [facility] Glucose 173(H) 70 - 99 mg/dl 07/03/2023 6:58 EDT [facility] Calcium 8.0(L) 8.5 - 10.5 mg/dL 07/03/2023 6:58 EDT [facility] BUN 12 10 - 26 mg/dL 07/03/2023 6:58 EDT [facility] Creatinine 0.47(L) 0.52 - 1.04 mg/dL 07/03/2023 6:58 EDT [facility] eGFR 114 >60 mL/min/1.73 m2 07/03/2023 6:58 EDT [facility] Blood VENOUS BLOOD / Unknown Venipuncture / Unknown 07/03/2023 6:29 EDT 07/03/2023 6:41 EDT Reza Brito MD CHEMISTRY & BLOOD GA S ORDERABLES [facility] [address] [place] [address] * MAGNESIUM (07/03/2023 6:29 EDT) Pathologist [facility] Magnesium 1.9 1.7 - 2.8 mg/dL 07/03/2023 6:58 EDT [facility] Blood VENOUS BLOOD / Unknown Venipuncture / Unknown 07/03/2023 6:29 EDT 07/03/2023 6:41 EDT Reza Brito MD CHEMISTRY & BLOOD GA S ORDERABLES Performing Organization Address City/[facility]/ZIP Co de Phone Number [facility] [address] [place] [address] * PHOSPHORUS (07/03/2023 6:29 EDT) Pathologist [facility] Phosphorus 4.0 2.5 - 4.5 mg/dL 07/03/2023 6:58 EDT [facility] Blood VENOUS BLOOD / Unknown Venipuncture / Unknown 07/03/2023 6:29 EDT 07/03/2023 6:41 EDT Reza Brito MD CHEMISTRY & BLOOD GA S ORDERABLES Performing Organization Address City/[facility]/ZIP Co de Phone Number [facility] [address] [place] [phone] * (ABNORMAL) COMPLETE BLOOD COUNT AND DIFFERENTIAL (07/03/2023 6:29 EDT) [facility] WBC 9.16 4.00 - 12.40 K/cmm 07/03/2023 7:39 T [facility] RBC 2.40(L) 3.86 - 5.04 M/cmm 07/03/2023 7:39 [facility] Hemoglobin 7.1(L) 11.6 - 15.2 g/dL 07/03/2023 7:39 T [facility] HCT 21.2(L) 34.9 - 44.4 % 07/03/2023 7:39 [facility] MCV 88 81 - 98 fL 07/03/2023 7:39 [facility] [facility] MCH 29.6 26.7 - 33.3 pg 07/03/2023 7:39 EDT [facility] MCHC 33.5 32.1 - 35.9 g/dL 07/03/2023 7:39 EDT [facility] RDW-CV 14.8(H) <14.7 % 07/03/2023 7:39 EDT [facility] RDW-SD 48.0 <50.4 fl 07/03/2023 7:39 EDT [facility] PLT 548(H) 141 - 377 K/cmm 07/03/2023 7:39 EDT [facility] MPV 07/03/2023 7:39 EDT [facility] Comment:Not Available Type of Differential: 07/03/2023 7:39 EDT [facility] Comment:This is an updated r esult. Previous result was Auto on 07/03/2023 at 0707 EDT Blood VENOUS BLOOD / Unknown Venipuncture / Unknown 07/03/2023 6:29 EDT 07/03/2023 6:40 EDT Ayden Jennings PACKAGES & DNA PROBE ORDERABLES Performing Organization Address [facility]/State/[facility] Co de Phone Number [facility] [address] [place] [address] * EKG 12-LEAD (07/03/2023 3:57 EDT) 07/03/2023 3:57 EDT Narrative [facility] E[facility] - 07/04/2023 13:31 EDT ? [facility] ? Test Date: ?2023-07-03 Pat Name: ? DELLA BROWNING ? Department: ?? [facility] [address] ? Room: ? B683 Gender: ? Female ? 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 [id number] : ?1970 ? Requested By: RITO RODRIGES Order Number: [id number] ? Alicia MD: ?? OTTONIEL STAHL MD ? Measurements Intervals ?[place] ? Rate: ? 89 ? P: ?35 MS: ? 157 ?QRS: ?54 QRSD: ? 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: [id number] : 1970 Requested By: RITO RODRIGES Order Number: [id number] Reading MD: OTTONIEL IGLESIAS Measurements Intervals [place] Rate: 89 P: 35 MS: 157 QRS: 54 QRSD: 83 T: 101 [...] Zahira Veras MD CARDIAC ECG ORDERAB LES [facility] E[facility] * (ABNORMAL) POCT GLUCOSE, INTERFACED (07/03/2023 2:44 EDT) Glucose, POC 132(H) 70 - 100 mg/dL 07/03/2023 2:46 EDT [facility] HN LAB POC COMMENT (GLUCOSE) Test Performed by Nursing Services 07/03/2023 2:46 EDT [facility] Blood CAPILLARY BLOOD / Unknown 07/03/2023 2:44 EDT 07/03/2023 2:46 EDT Hira Franklin MD POINT OF CARE TEST O RDERABLES Performing Organization Address [facility] Co de Phone Number [facility] [address] [place] [address] * (ABNORMAL) SODIUM (07/02/2023 23:40 EDT) Sodium 128(L) 136 - 145 mmol/L 07/03/2023 0:50 EDT [facility] Blood VENOUS BLOOD / Unknown Venipuncture / Unknown 07/02/2023 23:40 EDT 07/03/2023 0:27 EDT Tai Azar MD CHEMISTRY & BLOOD G ORDERABLES Performing Organization Address [facility] Co de Phone Number [facility] [address] [place] [address] * (ABNORMAL) POCT GLUCOSE, INTERFACED (07/02/2023 20:24 EDT) Glucose, POC 332(H) 70 - 100 mg/dL 07/02/2023 20:25 EDT [facility] HN LAB POC COMMENT (GLUCOSE) Test Performed by Nursing Services 07/02/2023 20:25 EDT [facility] Blood CAPILLARY BLOOD / Unknown 07/02/2023 20:24 EDT 07/02/2023 20:25 EDT Tai Azar MD POINT OF CARE TEST ORDERABLES Performing Organization Address [facility]/ZIP Co de Phone Number [facility] [address] [place] [address] * (ABNORMAL) SODIUM (07/02/2023 17:47 EDT) Sodium 127(L) 136 - 145 mmol/L 07/02/2023 18:17 EDT [facility] Blood VENOUS BLOOD / Unknown Venipuncture / Unknown 07/02/2023 17:47 EDT 07/02/2023 17:52 EDT Tai Azar MD CHEMISTRY & BLOOD G ORDERABLES [facility] [address] [place] [address] * (ABNORMAL) POCT GLUCOSE, INTERFACED (07/02/2023 17:41 EDT) Glucose, POC 207(H) 70 - 100 mg/dL 07/02/2023 17:43 EDT [facility] HN LAB POC COMMENT (GLUCOSE) Test Performed by Nursing Services 07/02/2023 17:43 EDT [facility] Blood CAPILLARY BLOOD / Unknown 07/02/2023 17:41 EDT 07/02/2023 17:42 EDT Tai Azar MD POINT OF CARE TEST ORDERABLES Performing Organization Address City/[facility]/ZIP Co de Phone Number [facility] [address] [place] [address] * (ABNORMAL) POCT GLUCOSE, INTERFACED (07/02/2023 13:12 EDT) Glucose, POC 180(H) 70 - 100 mg/dL 07/02/2023 13:13 EDT [facility] HN LAB POC COMMENT (GLUCOSE) Test Performed by Nursing Services 07/02/2023 13:13 EDT [facility] Blood CAPILLARY BLOOD / Unknown 07/02/2023 13:12 EDT 07/02/2023 13:13 EDT Tai Azar MD POINT OF CARE TEST ORDERABLES [facility] [address] [place] [address] * (ABNORMAL) SODIUM (07/02/2023 12:54 EDT) Sodium 129(L) 136 - 145 mmol/L 07/02/2023 13:44 EDT [facility] Blood VENOUS BLOOD / Unknown Venipuncture / Unknown 07/02/2023 12:54 EDT 07/02/2023 13:13 EDT Tai Azar MD CHEMISTRY & BLOOD G ORDERABLES Performing Organization Address [facility] Co de Phone Number [facility] [address], [place] [id number] * ECG REPORT - SCANNED (07/02/2023 10:05 EDT) 07/02/2023 10:0 5 EDT Scan 2 Process Designer PROCEDURE/MINOR VI GICAL ORDERABLES * (ABNORMAL) POCT GLUCOSE, INTERFACED (07/02/2023 7:54 EDT) Glucose, POC 157(H) 70 - 100 mg/dL 07/02/2023 7:55 EDT [facility] HN LAB POC COMMENT (GLUCOSE) Test Performed by Nursing Services 07/02/2023 7:55 EDT [facility] Blood CAPILLARY BLOOD / Unknown 07/02/2023 7:54 EDT 07/02/2023 7:55 EDT Tai Azar MD POINT OF CARE TEST ORDERABLES Performing Organization Address City/[facility] Co de Phone Number [facility] [address] [place] [address] * (ABNORMAL) DIFFERENTIAL, AUTOMATED MANUAL (07/02/2023 7:42 EDT) % Neutrophils 77.2 Not Indicated % 07/02/2023 9:08 EDT [facility] % Lymphocytes 8.8 Not Indicated % 07/02/2023 9:08 EDT [facility] % Monocytes 3.5 Not Indicated % 07/02/2023 9:08 [facility] % Eosinophils 0.9 Not Indicated % 07/02/2023 9:08 [facility] % Metamyelocytes 3.5 Not Indicated % 07/02/2023 9:08 [facility] % Myelocytes 6.1 Not Indicated % 07/02/2023 9:08 [facility] Absolute Neutrophils 7.72 2.20 - 8.85 K/cmm 07/02/2023 9:08 [facility] Absolute Lymphocytes 0.88(L) 1.09 - 3.30 K/cmm 07/02/2023 9:08 [facility] Absolute Monocytes 0.35 0.10 - 0.80 K/cm 07/02/2023 9:08 [facility] Absolute Eosinophils 0.09 0.03 - 0.61 K/cmm 07/02/2023 9:08 [facility] Absolute Metamyelocytes 0.35(H) <=0.00 K/cmm 07/02/2023 9:08 [facility] Absolute Myelocytes 0.61(H) <=0.00 K/cmm 07/02/2023 9:08 [facility] Type of Differential: Manual 07/02/2023 9:08 [facility] Blood VENOUS BLOOD / Unknown Venipuncture / Unknown 07/02/2023 7:42 EDT 07/02/2023 7:56 EDT Ayden Jennings HEMATOLOGY & PF4 ORD ERABLES [facility] [address] [place] [address] * (ABNORMAL) BASIC METABOLIC PANEL (BMP) (07/02/2023 7:42 EDT) Sodium 128(L) 136 - 145 mmol/L 07/02/2023 8:30 EDT [facility] Potassium 4.0 3.5 - 5.0 mmol/L 07/02/2023 8:30 EDT [facility] Chloride 93(L) 96 - 110 mmol/L 07/02/2023 8:30 EDT [facility] CO2 Total 27 22 - 32 mmol/L 07/02/2023 8:30 EDT [facility] Anion Gap 8 5 - 14 mmol/L 07/02/2023 8:30 EDT [facility] Glucose 156(H) 70 - 99 mg/dl 07/02/2023 8:30 EDT [facility] Calcium 8.3(L) 8.5 - 10.5 mg/dL 07/02/2023 8:30 EDT [facility] BUN 12 10 - 26 mg/dL 07/02/2023 8:30 EDT [facility] Creatinine 0.47(L) 0.52 - 1.04 mg/dL 07/02/2023 8:30 EDT [facility] eGFR 114 >60 mL/min/1.73 m2 07/02/2023 8:30 EDT [facility] Blood VENOUS BLOOD / Unknown Venipuncture / Unknown 07/02/2023 7:42 EDT 07/02/2023 7:57 EDT Reza Brito MD CHEMISTRY & BLOOD GA S ORDERABLES [facility] [address] [place] [address] * MAGNESIUM (07/02/2023 7:42 EDT) Magnesium 1.8 1.7 - 2.8 mg/dL 07/02/2023 8:30 EDT [facility] Blood VENOUS BLOOD / Unknown Venipuncture / Unknown 07/02/2023 7:42 EDT 07/02/2023 7:57 EDT Reza Brito MD CHEMISTRY & BLOOD GA S ORDERABLES [facility] [address] [place] [address] * PHOSPHORUS (07/02/2023 7:42 EDT) Pathologist [facility] Phosphorus 4.4 2.5 - 4.5 mg/dL 07/02/2023 8:30 [facility] Blood VENOUS BLOOD / Unknown Venipuncture / Unknown 07/02/2023 7:42 EDT 07/02/2023 7:57 EDT Reza Brito MD CHEMISTRY & BLOOD GA S ORDERABLES [facility] [address] [place] [address] * (ABNORMAL) COMPLETE BLOOD COUNT AND DIFFERENTIAL (07/02/2023 7:42 EDT) [facility] WBC 10.00 4.00 - 12.40 K/cmm 07/02/2023 8:17 [facility] RBC 2.57(L) 3.86 - 5.04 M/cmm 07/02/2023 8:17 [facility] Hemoglobin 7.4(L) 11.6 - 15.2 g/dL 07/02/2023 8:17 [facility] HCT 21.5(L) 34.9 - 44.4 % 07/02/2023 8:17 [facility] MCV 84 81 - 98 fL 07/02/2023 8:17 [facility] MCH 28.8 26.7 - 33.3 pg 07/02/2023 8:17 [facility] MCHC 34.4 32.1 - 35.9 g/dL 07/02/2023 8:17 [facility] RDW-CV 14.7(H) <14.7 % 07/02/2023 8:17 [facility] RDW-SD 44.9 <50.4 fl 07/02/2023 8:17 [facility] PLT 568(H) 141 - 377 K/cmm 07/02/2023 8:17 [facility] MPV 9.5 9.5 - 12.7 fL 07/02/2023 8:17 EDT [facility] Blood VENOUS BLOOD / Unknown Venipuncture / Unknown 07/02/2023 7:42 EDT 07/02/2023 7:56 EDT Ayden Jennings PACKAGES & DNA PROBE ORDERABLES Performing Organization Address City/[facility]/ZIP Co de Phone Number [facility] [address] [place] [address] * (ABNORMAL) SODIUM (07/01/2023 23:44 EDT) Sodium 127(L) 136 - 145 mmol/L 07/02/2023 0:05 EDT [facility] Blood VENOUS BLOOD / Unknown Venipuncture / Unknown 07/01/2023 23:44 EDT 07/01/2023 23:48 EDT Tai Azar MD CHEMISTRY & BLOOD G ORDERABLES Performing Organization Address [facility]/ZIP Co de Phone Number [facility] [address] [place] [address] * (ABNORMAL) POCT GLUCOSE, INTERFACED (07/01/2023 20:01 EDT) Glucose, POC 246(H) 70 - 100 mg/dL 07/01/2023 20:03 EDT [facility] HN LAB POC COMMENT (GLUCOSE) Test Performed by Nursing Services 07/01/2023 20:03 EDT [facility] Blood CAPILLARY BLOOD / Unknown 07/01/2023 20:01 EDT 07/01/2023 20:03 EDT Tai Azar MD POINT OF CARE TEST ORDERABLES Performing Organization Address [facility]/ZIP Co de Phone Number [facility] [address] [place] [address] * (ABNORMAL) SODIUM (07/01/2023 18:10 EDT) Sodium 128(L) 136 - 145 mmol/L 07/01/2023 19:07 EDT [facility] Blood VENOUS BLOOD / Unknown Venipuncture / Unknown 07/01/2023 18:10 EDT 07/01/2023 18:26 EDT Tai Azar MD CHEMISTRY & BLOOD G ORDERABLES [facility] [address] [place] [address] * (ABNORMAL) POCT GLUCOSE, INTERFACED (07/01/2023 17:33 EDT) Glucose, POC 163(H) 70 - 100 mg/dL 07/01/2023 17:34 EDT [facility] HN LAB POC COMMENT (GLUCOSE) Test Performed by Nursing Services 07/01/2023 17:34 EDT [facility] Blood CAPILLARY BLOOD / Unknown 07/01/2023 17:33 EDT 07/01/2023 17:34 EDT Tai Azar MD POINT OF CARE TEST ORDERABLES Performing Organization Address [facility] Co de Phone Number [facility] [address] [place] [address] * (ABNORMAL) SODIUM (07/01/2023 15:10 EDT) Sodium 130(L) 136 - 145 mmol/L 07/01/2023 15:34 EDT [facility] Blood VENOUS BLOOD / Unknown Venipuncture / Unknown 07/01/2023 15:10 EDT 07/01/2023 15:14 EDT Tai Azar MD CHEMISTRY & BLOOD G ORDERABLES Performing Organization Address City/[facility]/ZIP Co de Phone Number [facility] [address] [place] [address] * ECG REPORT - SCANNED (07/01/2023 13:46 EDT) 07/01/2023 13:4 6 EDT Scan 2 Process Designer PROCEDURE/MINOR VI GICAL ORDERABLES * (ABNORMAL) POCT GLUCOSE, INTERFACED (07/01/2023 12:56 EDT) Glucose, POC 159(H) 70 - 100 mg/dL 07/01/2023 12:57 EDT [facility] HN LAB POC COMMENT (GLUCOSE) Test Performed by Nursing Services 07/01/2023 12:57 EDT [facility] Blood CAPILLARY BLOOD / Unknown 07/01/2023 12:56 EDT 07/01/2023 12:57 EDT Tai Azar MD POINT OF CARE TEST ORDERABLES [facility] [address] [place] [address] * XR CHEST 2 VIEWS (07/01/2023 10:22 [...] 70 - 100 mg/dL 07/01/2023 8:35 EDT [facility] HN LAB POC COMMENT (GLUCOSE) Test Performed by Nursing Services 07/01/2023 8:35 EDT [facility] Blood CAPILLARY BLOOD / Unknown 07/01/2023 8:33 EDT 07/01/2023 8:35 EDT Tai Azar MD POINT OF CARE TEST ORDERABLES [facility] [address] [place] [address] * ECG REPORT - SCANNED (07/01/2023 6:53 EDT) 07/01/2023 6:53 EDT Scan 2 Process Designer PROCEDURE/MINOR VI GICAL ORDERABLES * (ABNORMAL) DIFFERENTIAL, AUTOMATED MANUAL (07/01/2023 2:29 EDT) % Neutrophils 70.4 Not Indicated % 07/01/2023 3:00 EDT [facility] % Banded Neutrophils 0.9 Not Indicated % 07/01/2023 3:00 EDT [facility] % Lymphocytes 15.6 Not Indicated % 07/01/2023 3:00 EDT [facility] % Monocytes 7.8 Not Indicated % 07/01/2023 3:00 EDT [facility] % Eosinophils 0.9 Not Indicated % 07/01/2023 3:00 EDT [facility] % Basophils 0.9 Not Indicated % 07/01/2023 3:00 EDT [facility] % Metamyelocytes 0.9 Not Indicated % 07/01/2023 3:00 EDT [facility] % Myelocytes 2.6 Not Indicated % 07/01/2023 3:00 EDT [facility] Toxic Granulation Present 024 3:00 EDT [facility] Vacuolated Neutrophils Present 07/01/2023 3:00 EDT [facility] Large Platelets Present K/cmm 3:00 T [facility] Absolute Neutrophils 7.90 2.20 - 8.85 K/cmm 07/01/2023 3:00 EDT [facility] Absolute Bands 0.10 K/cmm 07/01/2023 3:00 EDT [facility] Absolute Lymphocytes 1.75 1.09 - 3.30 K/cmm 07/01/2023 3:00 EDT [facility] Absolute Monocytes 0.88(H) 0.10 - 0.80 K/cm 07/01/2023 3:00 EDT [facility] Absolute Eosinophils 0.10 0.03 - 0.61 K/critical access hospital 07/01/2023 3:00 T [facility] ABS Basophils 0.10 0.01 - 0.11 K/critical access hospital 07/01/2023 3:00 [facility] Absolute Metamyelocytes 0.10(H) <=0.00 K/critical access hospital 07/01/2023 3:00 [facility] Absolute Myelocytes 0.29(H) <=0.00 K/critical access hospital 07/01/2023 3:00 [facility] Type of Differential: Manual 07/01/2023 3:00 [facility] Blood VENOUS BLOOD / Unknown Venipuncture / Unknown 07/01/2023 2:29 EDT 07/01/2023 2:32 EDT Ayden Jennings HEMATOLOGY & PF4 ORD ERABLES [facility] [address] [place] [address] * (ABNORMAL) BASIC METABOLIC PANEL (BMP) (07/01/2023 2:29 EDT) Sodium 130(L) 136 - 145 mmol/L 07/01/2023 3:03 T [facility] Potassium 4.0 3.5 - 5.0 mmol/L 07/01/2023 3:03 [facility] Chloride 97 96 - 110 mmol/L 07/01/2023 3:03 [facility] CO2 Total 24 22 - 32 mmol/L 07/01/2023 3:03 [facility] Anion Gap 9 5 - 14 mmol/L 07/01/2023 3:03 [facility] Glucose 191(H) 70 - 99 mg/dl 07/01/2023 3:03 EDT [facility] Calcium 8.4(L) 8.5 - 10.5 mg/dL 07/01/2023 3:03 EDT [facility] BUN 13 10 - 26 mg/dL 07/01/2023 3:03 EDT [facility] Creatinine 0.66 0.52 - 1.04 mg/dL 07/01/2023 3:03 EDT [facility] eGFR 105 >60 mL/min/1.73 m2 07/01/2023 3:03 EDT [facility] Blood VENOUS BLOOD / Unknown Venipuncture / Unknown 07/01/2023 2:29 EDT 07/01/2023 2:32 EDT Reza Brito MD CHEMISTRY & BLOOD GA S ORDERABLES Performing Organization Address City/[facility] Co de Phone Number [facility] [address], [place] [phone] * MAGNESIUM (07/01/2023 2:29 EDT) Magnesium 1.7 1.7 - 2.8 mg/dL 07/01/2023 3:03 EDT [facility] Blood VENOUS BLOOD / Unknown Venipuncture / Unknown 07/01/2023 2:29 EDT 07/01/2023 2:32 EDT Reza Brito MD CHEMISTRY & BLOOD GA S ORDERABLES [facility] [address], [place] [id number] * PHOSPHORUS (07/01/2023 2:29 EDT) Phosphorus 4.5 2.5 - 4.5 mg/dL 07/01/2023 3:03 EDT [facility] Blood VENOUS BLOOD / Unknown Venipuncture / Unknown 07/01/2023 2:29 EDT 07/01/2023 2:32 EDT Reza Brito MD CHEMISTRY & BLOOD GA S ORDERABLES Performing Organization Address City/State/[facility] Co de Phone Number [facility] [address] [place] [address] * (ABNORMAL) COMPLETE BLOOD COUNT AND DIFFERENTIAL (07/01/2023 2:29 EDT) WBC 11.22 4.00 - 12.40 K/cmm 07/01/2023 2:41 EDT [facility] RBC 2.50(L) 3.86 - 5.04 M/cmm 07/01/2023 2:41 [facility] Hemoglobin 7.4(L) 11.6 - 15.2 g/dL 07/01/2023 2:41 [facility] HCT 21.7(L) 34.9 - 44.4 % 07/01/2023 2:41 [facility] MCV 87 81 - 98 fL 07/01/2023 2:41 [facility] MCH 29.6 26.7 - 33.3 pg 07/01/2023 2:41 [facility] MCHC 34.1 32.1 - 35.9 g/dL 07/01/2023 2:41 [facility] RDW-CV 14.7(H) <14.7 % 07/01/2023 2:41 [facility] RDW-SD 47.2 <50.4 fl 07/01/2023 2:41 [facility] PLT 565(H) 141 - 377 K/cmm 07/01/2023 2:41 [facility] MPV 9.2(L) 9.5 - 12.7 fL 07/01/2023 2:41 [facility] Blood VENOUS BLOOD / Unknown Venipuncture / Unknown 07/01/2023 2:29 EDT 07/01/2023 2:32 EDT Ayden Jennings PACKAGES & DNA PROBE ORDERABLES Performing Organization Address City/[facility]/ZIP Co de Phone Number [facility] [address] [place] [address] * (ABNORMAL) SODIUM (06/30/2023 23:47 EDT) Sodium 129(L) 136 - 145 mmol/L 07/01/2023 0:25 EDT [facility] Blood VENOUS BLOOD / Unknown Venipuncture / Unknown 06/30/2023 23:47 EDT 07/01/2023 0:02 EDT Tai Azar MD CHEMISTRY & BLOOD G ORDERABLES Performing Organization Address City/[facility]/ZIP Co de Phone Number [facility] [address], [place] [phone] * (ABNORMAL) POCT GLUCOSE, INTERFACED (06/30/2023 20:59 EDT) Glucose, POC 201(H) 70 - 100 mg/dL 06/30/2023 21:00 EDT [facility] HN LAB POC COMMENT (GLUCOSE) Test Performed by Nursing Services 06/30/2023 21:00 EDT [facility] Blood CAPILLARY BLOOD / Unknown 06/30/2023 20:59 EDT 06/30/2023 21:00 EDT Tai Azar MD POINT OF CARE TEST ORDERABLES Performing Organization Address City/[facility]/ZIP Co de Phone Number [facility] [address], [place] [phone] * (ABNORMAL) SODIUM (06/30/2023 17:51 EDT) Sodium 128(L) 136 - 145 mmol/L 06/30/2023 18:09 EDT [facility] Blood VENOUS BLOOD / Unknown Venipuncture / Unknown 06/30/2023 17:51 EDT 06/30/2023 18:05 EDT Tai Azar MD CHEMISTRY & BLOOD G ORDERABLES Performing Organization Address City/[facility]/ZIP Co de Phone Number [facility] [address] [place] [address] * (ABNORMAL) POCT GLUCOSE, INTERFACED (06/30/2023 16:57 EDT) Glucose, POC 164(H) 70 - 100 mg/dL 06/30/2023 16:58 EDT [facility] HN LAB POC COMMENT (GLUCOSE) Test Performed by Nursing Services 06/30/2023 16:58 EDT [facility] Blood CAPILLARY BLOOD / Unknown 06/30/2023 16:57 EDT 06/30/2023 16:58 EDT Tai Azar MD POINT OF CARE TEST ORDERABLES Performing Organization Address [facility] Co de Phone Number [facility] [address] [place] [address] * XR CHEST PORTABLE 1 VIEW (06/30/2023 13:33 EDT) Anatomical Region Laterality Modality Computed Radiogr aphy 06/30/2023 13:4 1 EDT Impressions 06/30/2023 13:41 EDT Left lower lobe opacification with left pleural effusion. The findings could reflect either effusion with passive atelectasis or left lower lobe pneumonia. [id number] Narrative 06/30/2023 13:41 EDT XR CHEST PORTABLE 1 VIEW ??06/30/2023 1:00 PM Clinical History/comments: increased rhonchi; Comparison: Chest radiographs June 24 of June 26, 2023.. Technique: Single portable AP view of the chest. Findings: Lines/tubes/devices: The NG tube seen on the prior examination has been removed. Lungs: The lungs show dense opacification of the left lower lobe of lung as seen previously. Pleura: There is a left pleural effusion present. Cardiac and mediastinal contours: Normal. Soft tissues and extrathoracic findings: ??Normal. Bones: Normal. Resulting Agency Comment [id number] Procedure Note Redd Washington MD - 06/30/2023 XR CHEST PORTABLE 1 VIEW 06/30/2023 1:00 PM Clinical History/comments: increased rhonchi; Comparison: Chest radiographs June 24 of June 26, 2023.. Technique: Single portable AP view [...] with passive atelectasis or left lower lobepneumonia. [id number] Moo Monique MD IMG DIAGNOSTIC IMAG ING ORDERABLES * (ABNORMAL) POCT GLUCOSE, INTERFACED (06/30/2023 12:55 EDT) Pathologist [facility] Glucose, POC 215(H) 70 - 100 mg/dL 06/30/2023 12:56 EDT [facility] HN LAB POC COMMENT (GLUCOSE) Test Performed by Nursing Services 06/30/2023 12:56 EDT [facility] Blood CAPILLARY BLOOD / Unknown 06/30/2023 12:55 EDT 06/30/2023 12:56 EDT Hira Franklin MD POINT OF CARE TEST O RDERABLES [facility] [address], [place] [id number] * (ABNORMAL) SODIUM (06/30/2023 12:12 EDT) Sodium 129(L) 136 - 145 mmol/L 06/30/2023 12:51 EDT [facility] Blood VENOUS BLOOD / Unknown Venipuncture / Unknown 06/30/2023 12:12 EDT 06/30/2023 12:19 EDT Tai Azar MD CHEMISTRY & BLOOD G ORDERABLES Performing Organization Address City/[facility]/ZIP Co de Phone Number [facility] [address] [place] [address] * (ABNORMAL) POCT GLUCOSE, INTERFACED (06/30/2023 11:48 EDT) Glucose, POC 170(H) 70 - 100 mg/dL 06/30/2023 11:49 EDT [facility] HN LAB POC COMMENT (GLUCOSE) Test Performed by Nursing Services 06/30/2023 11:49 EDT [facility] Blood CAPILLARY BLOOD / Unknown 06/30/2023 11:48 EDT 06/30/2023 11:49 EDT Tai Azar MD POINT OF CARE TEST ORDERABLES Performing Organization Address [facility] Co de Phone Number [facility] [address] [place] [address] * (ABNORMAL) BASIC METABOLIC PANEL (BMP) (06/30/2023 8:04 EDT) Sodium 130(L) 136 - 145 mmol/L 06/30/2023 8:53 T [facility] Potassium 4.1 3.5 - 5.0 mmol/L 06/30/2023 8:53 [facility] Chloride 99 96 - 110 mmol/L 06/30/2023 8:53 [facility] CO2 Total 22 22 - 32 mmol/L 06/30/2023 8:53 [facility] Anion Gap 9 5 - 14 mmol/L 06/30/2023 8:53 [facility] Glucose 125(H) 70 - 99 mg/dl 06/30/2023 8:53 [facility] Calcium 8.3(L) 8.5 - 10.5 mg/dL 06/30/2023 8:53 [facility] BUN 9(L) 10 - 26 mg/dL 06/30/2023 8:53 EDT [facility] Creatinine 0.41(L) 0.52 - 1.04 mg/dL 06/30/2023 8:53 EDT [facility] eGFR 118 >60 mL/min/1.73 m2 06/30/2023 8:53 EDT [facility] Blood VENOUS BLOOD / Unknown Venipuncture / Unknown 06/30/2023 8:04 EDT 06/30/2023 8:34 EDT Reza Brito MD CHEMISTRY & BLOOD GA S ORDERABLES [facility] [address] [place] [address] * MAGNESIUM (06/30/2023 8:04 EDT) Magnesium 1.9 1.7 - 2.8 mg/dL 06/30/2023 8:53 EDT [facility] Blood VENOUS BLOOD / Unknown Venipuncture / Unknown 06/30/2023 8:04 EDT 06/30/2023 8:34 EDT Reza Brito MD CHEMISTRY & BLOOD GA S ORDERABLES [facility] [address] [place] [address] * PHOSPHORUS (06/30/2023 8:04 EDT) Phosphorus 4.0 2.5 - 4.5 mg/dL 06/30/2023 8:53 EDT [facility] Blood VENOUS BLOOD / Unknown Venipuncture / Unknown 06/30/2023 8:04 EDT 06/30/2023 8:34 EDT Reza Brito MD CHEMISTRY & BLOOD GA S ORDERABLES [facility] [address] [place] [address] * (ABNORMAL) COMPLETE BLOOD COUNT AND DIFFERENTIAL (06/30/2023 8:04 EDT) WBC 9.18 4.00 - 12.40 K/cmm 06/30/2023 8:52 [facility] RBC 2.41(L) 3.86 - 5.04 M/cmm 06/30/2023 8:52 [facility] Hemoglobin 7.0(L) 11.6 - 15.2 g/dL 06/30/2023 8:52 [facility] HCT 20.7(LL) 34.9 - 44.4 % 06/30/2023 8:52 [facility] MCV 86 81 - 98 fL 06/30/2023 8:52 [facility] MCH 29.0 26.7 - 33.3 pg 06/30/2023 8:52 [facility] MCHC 33.8 32.1 - 35.9 g/dL 06/30/2023 8:52 [facility] RDW-CV 14.7(H) <14.7 % 06/30/2023 8:52 [facility] RDW-SD 46.2 <50.4 fl 06/30/2023 8:52 [facility] PLT 529(H) 141 - 377 K/cmm 06/30/2023 8:52 [facility] MPV 9.5 9.5 - 12.7 fL 06/30/2023 8:52 [facility] % Neutrophils 72.1 % 06/30/2023 8:52 [facility] % Lymphocytes 11.0 % 06/30/2023 8:52 [facility] % Monocytes 10.1 % 06/30/2023 8:52 [facility] % Eosinophils 1.4 % 06/30/2023 8:52 [facility] % Basophils 0.4 % 06/30/2023 8:52 [facility] % Immature Grans 5.0 % 06/30/19 8:52 [facility] Absolute Neutrophils 6.61 2.20 - 8.85 K/cmm 06/30/2023 8:52 [facility] Absolute Lymphocytes 1.01(L) 1.09 - 3.30 K/cmm 06/30/2023 8:52 [facility] Absolute Monocytes 0.93(H) 0.10 - 0.80 K/cmm 06/30/2023 8:52 [facility] Absolute Eosinophils 0.13 0.03 - 0.61 K/cmm 06/30/2023 8:52 [facility] ABS Basophils 0.04 0.01 - 0.11 K/cmm 06/30/2023 8:52 [facility] Absolute Immature Grans 0.46(H) 0.00 - 0.06 K/cmm 06/30/2023 8:52 [facility] Type of Differential: Auto 06/30/2023 8:52 [facility] Blood VENOUS BLOOD / Unknown Venipuncture / Unknown 06/30/2023 8:04 EDT 06/30/2023 8:34 EDT Ayden Jennings PACKAGES & DNA PROBE ORDERABLES [facility] [address] [place] [address] * (ABNORMAL) POCT GLUCOSE, INTERFACED (06/30/2023 7:17 EDT) Glucose, POC 141(H) 70 - 100 mg/dL 06/30/2023 7:18 EDT [facility] HN LAB POC COMMENT (GLUCOSE) Test Performed by Nursing Services 06/30/2023 7:18 [facility] Blood CAPILLARY BLOOD / Unknown 06/30/2023 7:17 EDT 06/30/2023 7:18 EDT Tai Azar MD POINT OF CARE TEST ORDERABLES Performing Organization Address [facility]/ZIP Co de Phone Number [facility] [address] [place] [address] * (ABNORMAL) SODIUM (06/29/2023 23:37 EDT) Sodium 130(L) 136 - 145 mmol/L 06/30/2023 0:06 EDT [facility] Blood VENOUS BLOOD / Unknown Venipuncture / Unknown 06/29/2023 23:37 EDT 06/29/2023 23:41 EDT Tai Azar MD CHEMISTRY & BLOOD G ORDERABLES Performing Organization Address [facility] Co de Phone Number [facility] [address] [place] [address] * (ABNORMAL) POCT GLUCOSE, INTERFACED (06/29/2023 20:45 EDT) Glucose, POC 200(H) 70 - 100 mg/dL 06/29/2023 20:46 EDT [facility] HN LAB POC COMMENT (GLUCOSE) Test Performed by Nursing Services 06/29/2023 20:46 EDT [facility] Blood CAPILLARY BLOOD / Unknown 06/29/2023 20:45 EDT 06/29/2023 20:46 EDT Tai Azar MD POINT OF CARE TEST ORDERABLES Performing Organization Address City/[facility]/ZIP Co de Phone Number [facility] [address], [place] [id number] * (ABNORMAL) SODIUM (06/29/2023 17:45 EDT) Sodium 130(L) 136 - 145 mmol/L 06/29/2023 18:29 EDT [facility] Blood VENOUS BLOOD / Unknown Venipuncture / Unknown 06/29/2023 17:45 EDT 06/29/2023 18:11 EDT Tai Azar MD CHEMISTRY & BLOOD G ORDERABLES Performing Organization Address City/[facility] Co de Phone Number [facility] [address] [place] [address] * (ABNORMAL) POCT GLUCOSE, INTERFACED (06/29/2023 17:03 EDT) Glucose, POC 122(H) 70 - 100 mg/dL 06/29/2023 17:08 EDT [facility] HN LAB POC COMMENT (GLUCOSE) Test Performed by Nursing Services 06/29/2023 17:08 EDT [facility] Blood CAPILLARY BLOOD / Unknown 06/29/2023 17:03 EDT 06/29/2023 17:08 EDT Tai Azar MD POINT OF CARE TEST ORDERABLES Performing Organization Address [facility] Co de Phone Number [facility] [address] [place] [address] * (ABNORMAL) SODIUM (06/29/2023 14:33 EDT) Pathologist [facility] Sodium 130(L) 136 - 145 mmol/L 06/29/2023 15:22 EDT [facility] Blood VENOUS BLOOD / Unknown Venipuncture / Unknown 06/29/2023 14:33 EDT 06/29/2023 14:52 EDT Tai Azar MD CHEMISTRY & BLOOD G ORDERABLES Performing Organization Address [facility]/ZIP Co de Phone Number [facility] [address] [place] [address] * (ABNORMAL) COMPLETE BLOOD COUNT AND DIFFERENTIAL (06/29/2023 14:33 EDT) WBC 9.81 4.00 - 12.40 K/cmm 06/29/2023 14:58 EDT [facility] RBC 2.63(L) 3.86 - 5.04 M/cmm 06/29/2023 14:58 [facility] Hemoglobin 7.7(L) 11.6 - 15.2 g/dL 06/29/2023 14:58 [facility] HCT 23.2(L) 34.9 - 44.4 % 06/29/2023 14:58 [facility] MCV 88 81 - 98 fL 06/29/2023 14:58 [facility] MCH 29.3 26.7 - 33.3 pg 06/29/2023 14:58 [facility] MCHC 33.2 32.1 - 35.9 g/dL 06/29/2023 14:58 [facility] RDW-CV 14.8(H) <14.7 % 06/29/2023 14:58 [facility] RDW-SD 48.1 <50.4 fl 06/29/2023 14:58 [facility] PLT 488(H) 141 - 377 K/cmm 06/29/2023 14:58 [facility] MPV 9.5 9.5 - 12.7 fL 06/29/2023 14:58 [facility] % Neutrophils 75.2 % 06/29/2023 14:58 [facility] % Lymphocytes 9.8 % 06/29/2023 14:58 [facility] % Monocytes 9.7 % 06/29/2023 14:58 [facility] % Eosinophils 0.9 % 06/29/2023 14:58 [facility] % Basophils 0.5 % 06/29/2023 14:58 [facility] % Immature Grans 3.9 % 06/29/19 14:58 [facility] Absolute Neutrophils 7.38 2.20 - 8.85 K/cmm 06/29/2023 14:58 [facility] Absolute Lymphocytes 0.96(L) 1.09 - 3.30 K/cmm 06/29/2023 14:58 EDT [facility] Absolute Monocytes 0.95(H) 0.10 - 0.80 K/cmm 06/29/2023 14:58 EDT [facility] Absolute Eosinophils 0.09 0.03 - 0.61 K/cm 06/29/2023 14:58 EDT [facility] ABS Basophils 0.05 0.01 - 0.11 K/cm 06/29/2023 14:58 EDT [facility] Absolute Immature Grans 0.38(H) 0.00 - 0.06 K/cm 06/29/2023 14:58 EDT [facility] Type of Differential: Auto 06/29/2023 14:58 EDT [facility] Blood VENOUS BLOOD / Unknown Venipuncture / Unknown 06/29/2023 14:33 EDT 06/29/2023 14:52 EDT Ayden Jennings PACKAGES & DNA PROBE ORDERABLES [facility] [address] [place] [address] * (ABNORMAL) POCT GLUCOSE, INTERFACED (06/29/2023 11:58 EDT) [facility] Glucose, POC 141(H) 70 - 100 mg/dL 06/29/2023 11:59 EDT [facility] HN LAB POC COMMENT (GLUCOSE) Test Performed by Nursing Services 06/29/2023 11:59 EDT [facility] Blood CAPILLARY BLOOD / Unknown 06/29/2023 11:58 EDT 06/29/2023 11:59 EDT Tai Azar MD POINT OF CARE TEST ORDERABLES [facility] [address] [place] [address] * (ABNORMAL) BASIC METABOLIC PANEL (BMP) (06/29/2023 9:15 EDT) Sodium 131(L) 136 - 145 mmol/L 06/29/2023 10:06 [facility] Potassium 4.0 3.5 - 5.0 mmol/L 06/29/2023 10:06 [facility] Chloride 100 96 - 110 mmol/L 06/29/2023 10:06 [facility] CO2 Total 24 22 - 32 mmol/L 06/29/2023 10:06 [facility] Anion Gap 7 5 - 14 mmol/L 06/29/2023 10:06 [facility] Glucose 125(H) 70 - 99 mg/dl 06/29/2023 10:06 [facility] Calcium 8.1(L) 8.5 - 10.5 mg/dL 06/29/2023 10:06 [facility] BUN 10 10 - 26 mg/dL 06/29/2023 10:06 [facility] Creatinine 0.43(L) 0.52 - 1.04 mg/dL 06/29/2023 10:06 [facility] eGFR 117 >60 mL/min/1.73 m2 06/29/2023 10:06 [facility] Blood VENOUS BLOOD / Unknown Venipuncture / Unknown 06/29/2023 9:15 EDT 06/29/2023 9:27 EDT Reza Brito MD CHEMISTRY & BLOOD GA S ORDERABLES [facility] [address] [place] [address] * MAGNESIUM (06/29/2023 9:15 EDT) Magnesium 1.9 1.7 - 2.8 mg/dL 06/29/2023 10:06 [facility] Blood VENOUS BLOOD / Unknown Venipuncture / Unknown 06/29/2023 9:15 EDT 06/29/2023 9:27 EDT Reza Brito MD CHEMISTRY & BLOOD GA S ORDERABLES Performing Organization Address City/[facility]/ZIP Co de Phone Number [facility] [address] [place] [address] * PHOSPHORUS (06/29/2023 9:15 EDT) [facility] Phosphorus 4.1 2.5 - 4.5 mg/dL 06/29/2023 10:06 EDT [facility] Blood VENOUS BLOOD / Unknown Venipuncture / Unknown 06/29/2023 9:15 EDT 06/29/2023 9:27 EDT Reza Brito MD CHEMISTRY & BLOOD GA S ORDERABLES Performing Organization Address [facility] Co de Phone Number [facility] [address] [place] [address] * (ABNORMAL) POCT GLUCOSE, INTERFACED (06/29/2023 8:35 EDT) [facility] Glucose, POC 127(H) 70 - 100 mg/dL 06/29/2023 8:36 EDT [facility] HN LAB POC COMMENT (GLUCOSE) Test Performed by Nursing Services 06/29/2023 8:36 EDT [facility] Blood CAPILLARY BLOOD / Unknown 06/29/2023 8:35 EDT 06/29/2023 8:36 EDT Tai Azar MD POINT OF CARE TEST ORDERABLES [facility] [address], [place] [id number] * (ABNORMAL) SODIUM (06/29/2023 0:04 EDT) [facility] Sodium 129(L) 136 - 145 mmol/L 06/29/2023 0:40 EDT [facility] Blood VENOUS BLOOD / Unknown Venipuncture / Unknown 06/29/2023 0:04 EDT 06/29/2023 0:25 EDT Tai Azar MD CHEMISTRY & BLOOD G ORDERABLES [facility] [address] [place] [address] * (ABNORMAL) POCT GLUCOSE, INTERFACED (06/28/2023 20:46 EDT) Glucose, POC 219(H) 70 - 100 mg/dL 06/28/2023 20:49 EDT [facility] HN LAB POC COMMENT (GLUCOSE) Test Performed by Nursing Services 06/28/2023 20:49 EDT [facility] Blood CAPILLARY BLOOD / Unknown 06/28/2023 20:46 EDT 06/28/2023 20:49 EDT Tai Azar MD POINT OF CARE TEST ORDERABLES Performing Organization Address City/[facility]/ZIP Co de Phone Number [facility] [address] [place] [address] * (ABNORMAL) POCT GLUCOSE, INTERFACED (06/28/2023 18:38 EDT) Glucose, POC 150(H) 70 - 100 mg/dL 06/28/2023 18:40 EDT [facility] HN LAB POC COMMENT (GLUCOSE) Test Performed by Nursing Services 06/28/2023 18:40 EDT [facility] Blood CAPILLARY BLOOD / Unknown 06/28/2023 18:38 EDT 06/28/2023 18:40 EDT Tai Azar MD POINT OF CARE TEST ORDERABLES Performing Organization Address City/[facility]/ZIP Co de Phone Number [facility] [address] [place] [address] * (ABNORMAL) SODIUM (06/28/2023 18:10 EDT) Sodium 127(L) 136 - 145 mmol/L 06/28/2023 18:29 EDT [facility] Blood VENOUS BLOOD / Unknown Venipuncture / Unknown 06/28/2023 18:10 EDT 06/28/2023 18:14 EDT Tai Azar MD CHEMISTRY & BLOOD G ORDERABLES Performing Organization Address City/[facility]/ZIP Co de Phone Number [facility] [address] [place] [address] * (ABNORMAL) SODIUM (06/28/2023 14:43 EDT) Sodium 127(L) 136 - 145 mmol/L 06/28/2023 15:58 EDT [facility] Blood VENOUS BLOOD / Unknown Venipuncture / Unknown 06/28/2023 14:43 EDT 06/28/2023 15:12 EDT Tai Azar MD CHEMISTRY & BLOOD G ORDERABLES Performing Organization Address City/[facility]/ZIP Co de Phone Number [facility] [address] [place] [address] * (ABNORMAL) POCT GLUCOSE, INTERFACED (06/28/2023 14:13 EDT) Glucose, POC 152(H) 70 - 100 mg/dL 06/28/2023 14:15 EDT [facility] HN LAB POC COMMENT (GLUCOSE) Test Performed by Nursing Services 06/28/2023 14:15 EDT [facility] Blood CAPILLARY BLOOD / Unknown 06/28/2023 14:13 EDT 06/28/2023 14:15 EDT Tai Azar MD POINT OF CARE TEST ORDERABLES Performing Organization Address City/[facility]/ZIP Co de Phone Number [facility] [address] [place] [address] * (ABNORMAL) BASIC METABOLIC PANEL (BMP) (06/28/2023 9:36 EDT) Sodium 127(L) 136 - 145 mmol/L 06/28/2023 10:34 [facility] Potassium 4.5 3.5 - 5.0 mmol/L 06/28/2023 10:34 [facility] Chloride 96 96 - 110 mmol/L 06/28/2023 10:34 [facility] CO2 Total 24 22 - 32 mmol/L 06/28/2023 10:34 [facility] Anion Gap 7 5 - 14 mmol/L 06/28/2023 10:34 [facility] Glucose 160(H) 70 - 99 mg/dl 06/28/2023 10:34 [facility] Calcium 7.8(L) 8.5 - 10.5 mg/dL 06/28/2023 10:34 [facility] BUN 12 10 - 26 mg/dL 06/28/2023 10:34 [facility] Creatinine 0.52 0.52 - 1.04 mg/dL 06/28/2023 10:34 [facility] eGFR 112 >60 mL/min/1.73 m2 06/28/2023 10:34 [facility] Blood VENOUS BLOOD / Unknown Venipuncture / Unknown 06/28/2023 9:36 EDT 06/28/2023 10:06 EDT Reza Brito MD CHEMISTRY & BLOOD GA S ORDERABLES [facility] [address] [place] [address] * MAGNESIUM (06/28/2023 9:36 EDT) Magnesium 1.8 1.7 - 2.8 mg/dL 06/28/2023 10:34 [facility] Blood VENOUS BLOOD / Unknown Venipuncture / Unknown 06/28/2023 9:36 EDT 06/28/2023 10:06 EDT Reza Brito MD CHEMISTRY & BLOOD GA S ORDERABLES Performing Organization Address City/[facility]/ZIP Co de Phone Number [facility] [address], [place] [id number] * PHOSPHORUS (06/28/2023 9:36 EDT) Phosphorus 4.0 2.5 - 4.5 mg/dL 06/28/2023 10:34 EDT [facility] Blood VENOUS BLOOD / Unknown Venipuncture / Unknown 06/28/2023 9:36 EDT 06/28/2023 10:06 EDT Reza Brito MD CHEMISTRY & BLOOD GA S ORDERABLES Performing Organization Address [facility] Co de Phone Number [facility] [address], [place] [id number] * (ABNORMAL) COMPLETE BLOOD COUNT AND DIFFERENTIAL (06/28/2023 9:36 EDT) WBC 10.32 4.00 - 12.40 K/cmm 06/28/2023 11:07 [facility] RBC 2.42(L) 3.86 - 5.04 M/cmm 06/28/2023 11:07 [facility] Hemoglobin 7.3(L) 11.6 - 15.2 g/dL 06/28/2023 11:07 [facility] HCT 21.4(L) 34.9 - 44.4 % 06/28/2023 11:07 [facility] MCV 88 81 - 98 fL 06/28/2023 11:07 [facility] MCH 30.2 26.7 - 33.3 pg 06/28/2023 11:07 [facility] MCHC 34.1 32.1 - 35.9 g/dL 06/28/2023 11:07 [facility] RDW-CV 15.1(H) <14.7 % 06/28/2023 11:07 [facility] RDW-SD 49.0 <50.4 fl 06/28/2023 11:07 [facility] PLT 465(H) 141 - 377 K/cmm 06/28/2023 11:07 [facility] MPV 10.0 9.5 - 12.7 fL 06/28/2023 11:07 [facility] % Neutrophils 77.8 % 06/28/2023 11:07 [facility] % Lymphocytes 9.0 % 06/28/2023 11:07 [facility] % Monocytes 10.2 % 06/28/2023 11:07 [facility] % Eosinophils 0.9 % 06/28/2023 11:07 [facility] % Basophils 0.5 % 06/28/2023 11:07 [facility] % Immature Grans 1.6 % 06/28/19 24 11:07 [facility] Absolute Neutrophils 8.04 2.20 - 8.85 K/cmm 06/28/2023 11:07 [facility] Absolute Lymphocytes 0.93(L) 1.09 - 3.30 K/cmm 06/28/2023 11:07 [facility] Absolute Monocytes 1.05(H) 0.10 - 0.80 K/cmm 06/28/2023 11:07 [facility] Absolute Eosinophils 0.09 0.03 - 0.61 K/cmm 06/28/2023 11:07 [facility] ABS Basophils 0.05 0.01 - 0.11 K/cmm 06/28/2023 11:07 [facility] Absolute Immature Grans 0.16(H) 0.00 - 0.06 K/cmm 06/28/2023 11:07 [facility] Type of Differential: Auto 06/28/2023 11:07 [facility] Blood VENOUS BLOOD / Unknown Venipuncture / Unknown 06/28/2023 9:36 EDT 06/28/2023 10:08 EDT Ayden Jennings PACKAGES & DNA PROBE ORDERABLES Performing Organization Address [facility]/ZIP Co de Phone Number [facility] [address], [place] [id number] * (ABNORMAL) POCT GLUCOSE, INTERFACED (06/28/2023 7:33 EDT) Glucose, POC 124(H) 70 - 100 mg/dL 06/28/2023 7:35 EDT [facility] HN LAB POC COMMENT (GLUCOSE) Test Performed by Nursing Services 06/28/2023 7:35 EDT [facility] [facility] Blood CAPILLARY BLOOD / Unknown 06/28/2023 7:33 EDT 06/28/2023 7:35 EDT Hira Franklin MD POINT OF CARE TEST O NANCY Performing Organization Address [facility] Co de Phone Number [facility] [address] [place] [address] * (ABNORMAL) POCT GLUCOSE, INTERFACED (06/28/2023 6:13 EDT) Glucose, POC 117(H) 70 - 100 mg/dL 06/28/2023 6:15 EDT [facility] HN LAB POC COMMENT (GLUCOSE) Test Performed by Nursing Services 06/28/2023 6:15 EDT [facility] Blood CAPILLARY BLOOD / Unknown 06/28/2023 6:13 EDT 06/28/2023 6:15 EDT Isabell Nolasco MD POINT OF CARE TEST O RDERAMICHAEL Performing Organization Address City/[facility] Co de Phone Number [facility] [address] [place] [address] * EKG 12-LEAD (06/28/2023 2:12 EDT) 06/28/2023 2:12 EDT Narrative [facility] - 07/01/2023 13:38 EDT ? [facility] ? Test Date: ?2023-06-28 Pat Name: ? DELLA BROWNIGN ? Department: ?? [facility] [address] ? Room: ? B620 Gender: ? Female ? 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 Requested By: MARAH WHYTE Order Number: [id number] ? Reading MD: ?? CHIDI BRASHER MD ? Measurements Intervals ?[place] ? Rate: ? 76 ? P: ?34 MS: ? 156 ?QRS: ?40 QRSD: ? 85 ? T: ?90 QT: ? 392 ? QTc: ?442 ? Interpretive Statements SINUS RHYTHM POSSIBLE RIGHT VENTRICULAR CONDUCTION DELAY I reviewed the tracing and have either agreed or edited the findings in this report. Electronically Signed On 07-01-2023 13:38:31 EDT by CHIDI BRASHER MD. 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 Electronically Signed On 07-01-2023 13:38:31 EDT by CHIDI JURADO MD. Isabell Nolasco MD CARDIAC ECG ORDERABL ES [facility] * (ABNORMAL) POCT GLUCOSE, INTERFACED (06/27/2023 23:46 EDT) Glucose, POC 133(H) 70 - 100 mg/dL 06/27/2023 23:47 EDT [facility] HN LAB POC COMMENT (GLUCOSE) Test Performed by Nursing Services 06/27/2023 23:47 EDT [facility] Blood CAPILLARY BLOOD / Unknown 06/27/2023 23:46 EDT 06/27/2023 23:47 EDT Tai Azar MD POINT OF CARE TEST ORDERABLES Performing Organization Address [facility] Co de Phone Number [facility] [address] [place] [address] * (ABNORMAL) POCT GLUCOSE, INTERFACED (06/27/2023 17:55 EDT) Glucose, POC 185(H) 70 - 100 mg/dL 06/27/2023 17:56 EDT [facility] HN LAB POC COMMENT (GLUCOSE) Test Performed by Nursing Services 06/27/2023 17:56 EDT [facility] Blood CAPILLARY BLOOD / Unknown 06/27/2023 17:55 EDT 06/27/2023 17:56 EDT Tai Azar MD POINT OF CARE TEST ORDERABLES Performing Organization Address [facility] de Phone Number [facility] [address] [place] [id number] * ECG REPORT - SCANNED (06/27/2023 16:14 EDT) 06/27/2023 16:1 4 EDT Scan 2 Process Designer PROCEDURE/MINOR VI GICAL ORDERABLES * (ABNORMAL) POCT GLUCOSE, INTERFACED (06/27/2023 12:47 EDT) Glucose, POC 155(H) 70 - 100 mg/dL 06/27/2023 12:48 EDT [facility] HN LAB POC COMMENT (GLUCOSE) Test Performed by Nursing Services 06/27/2023 12:48 EDT [facility] Blood CAPILLARY BLOOD / Unknown 06/27/2023 12:47 EDT 06/27/2023 12:48 EDT Tai Azar MD POINT OF CARE TEST ORDERABLES [facility] [address] [place] [address] * (ABNORMAL) BASIC METABOLIC PANEL (BMP) (06/27/2023 9:06 EDT) Sodium 134(L) 136 - 145 mmol/L 06/27/2023 10:13 T [facility] Potassium 4.1 3.5 - 5.0 mmol/L 06/27/2023 10:13 [facility] Chloride 100 96 - 110 mmol/L 06/27/2023 10:13 [facility] CO2 Total 23 22 - 32 mmol/L 06/27/2023 10:13 [facility] Anion Gap 11 5 - 14 mmol/L 06/27/2023 10:13 [facility] Glucose 165(H) 70 - 99 mg/dl 06/27/2023 10:13 [facility] Calcium 7.7(L) 8.5 - 10.5 mg/dL 06/27/2023 10:13 [facility] BUN 14 10 - 26 mg/dL 06/27/2023 10:13 [facility] Creatinine 0.53 0.52 - 1.04 mg/dL 06/27/2023 10:13 [facility] eGFR 111 >60 mL/min/1.73 m2 06/27/2023 10:13 [facility] Blood VENOUS BLOOD / Unknown Venipuncture / Unknown 06/27/2023 9:06 EDT 06/27/2023 9:26 EDT Reza Brito MD CHEMISTRY & BLOOD GA S ORDERABLES [facility] [address] [place] [address] * MAGNESIUM (06/27/2023 9:06 EDT) Pathologist [facility] Magnesium 1.9 1.7 - 2.8 mg/dL 06/27/2023 10:13 EDT [facility] Blood VENOUS BLOOD / Unknown Venipuncture / Unknown 06/27/2023 9:06 EDT 06/27/2023 9:26 EDT Reza Brito MD CHEMISTRY & BLOOD GA S ORDERABLES [facility] [address] [place] [address] * PHOSPHORUS (06/27/2023 9:06 EDT) [facility] Phosphorus 3.7 2.5 - 4.5 mg/dL 06/27/2023 10:13 EDT [facility] Blood VENOUS BLOOD / Unknown Venipuncture / Unknown 06/27/2023 9:06 EDT 06/27/2023 9:26 EDT Reza Brito MD CHEMISTRY & BLOOD GA S ORDERABLES [facility] [address] [place] [address] * (ABNORMAL) COMPLETE BLOOD COUNT AND DIFFERENTIAL (06/27/2023 9:06 EDT) Pathologist [facility] WBC 8.97 4.00 - 12.40 K/cmm 06/27/2023 9:39 EDT [facility] RBC 2.55(L) 3.86 - 5.04 M/cmm 06/27/2023 9:39 EDT [facility] Hemoglobin 7.6(L) 11.6 - 15.2 g/dL 06/27/2023 9:39 T [facility] HCT 22.7(L) 34.9 - 44.4 % 06/27/2023 9:39 EDT [facility] MCV 89 81 - 98 fL 06/27/2023 9:39 [facility] MCH 29.8 26.7 - 33.3 pg 06/27/2023 9:39 [facility] MCHC 33.5 32.1 - 35.9 g/dL 06/27/2023 9:39 [facility] RDW-CV 15.5(H) <14.7 % 06/27/2023 9:39 [facility] RDW-SD 49.8 <50.4 fl 06/27/2023 9:39 [facility] PLT 378(H) 141 - 377 K/cm 06/27/2023 9:39 [facility] MPV 9.9 9.5 - 12.7 fL 06/27/2023 9:39 [facility] % Neutrophils 76.2 % 06/27/2023 9:39 [facility] % Lymphocytes 10.7 % 06/27/2023 9:39 [facility] % Monocytes 10.4 % 06/27/2023 9:39 [facility] % Eosinophils 0.9 % 06/27/2023 9:39 [facility] % Basophils 0.6 % 06/27/2023 9:39 [facility] % Immature Grans 1.2 % 06/27/19 9:39 [facility] Absolute Neutrophils 6.84 2.20 - 8.85 K/cmm 06/27/2023 9:39 [facility] Absolute Lymphocytes 0.96(L) 1.09 - 3.30 K/cmm 06/27/2023 9:39 [facility] Absolute Monocytes 0.93(H) 0.10 - 0.80 K/cmm 06/27/2023 9:39 [facility] Absolute Eosinophils 0.08 0.03 - 0.61 K/cmm 06/27/2023 9:39 [facility] ABS Basophils 0.05 0.01 - 0.11 K/cm 06/27/2023 9:39 EDT [facility] Absolute Immature Grans 0.11(H) 0.00 - 0.06 K/cmm 06/27/2023 9:39 EDT [facility] Type of Differential: Auto 06/27/2023 9:39 EDT [facility] Blood VENOUS BLOOD / Unknown Venipuncture / Unknown 06/27/2023 9:06 EDT 06/27/2023 9:26 EDT Ayden Jane Jennings PACKAGES & DNA PROBE ORDERABLES Performing Organization Address City/[facility]/ZIP Co de Phone Number [facility] [address] [place] [address] * (ABNORMAL) POCT GLUCOSE, INTERFACED (06/27/2023 8:16 EDT) Glucose, POC 102(H) 70 - 100 mg/dL 06/27/2023 8:17 EDT [facility] HN LAB POC COMMENT (GLUCOSE) Test Performed by Nursing Services 06/27/2023 8:17 EDT [facility] Blood CAPILLARY BLOOD / Unknown 06/27/2023 8:16 EDT 06/27/2023 8:17 EDT Hira Franklin MD POINT OF CARE TEST O RDERABLES Performing Organization Address City/[facility]/ZIP Co de Phone Number [facility] [address] [place] [address] * POCT GLUCOSE, INTERFACED (06/27/2023 5:13 EDT) Glucose, POC 88 70 - 100 mg/dL 06/27/2023 5:14 EDT [facility] HN LAB POC COMMENT (GLUCOSE) Test Performed by Nursing Services 06/27/2023 5:14 EDT [facility] Blood CAPILLARY BLOOD / Unknown 06/27/2023 5:13 EDT 06/27/2023 5:14 EDT Tai Azar MD POINT OF CARE TEST ORDERABLES [facility] [address] [place] [address] * (ABNORMAL) POCT GLUCOSE, INTERFACED (06/26/2023 23:29 EDT) Glucose, POC 107(H) 70 - 100 mg/dL 06/26/2023 23:31 EDT [facility] HN LAB POC COMMENT (GLUCOSE) Test Performed by Nursing Services 06/26/2023 23:31 EDT [facility] Blood CAPILLARY BLOOD / Unknown 06/26/2023 23:29 EDT 06/26/2023 23:30 EDT Tai Azar MD POINT OF CARE TEST ORDERABLES Performing Organization Address City/[facility]/ZIP Co de Phone Number [facility] [address], [place] [id number] * (ABNORMAL) POCT GLUCOSE, INTERFACED (06/26/2023 20:00 EDT) Glucose, POC 113(H) 70 - 100 mg/dL 06/26/2023 20:01 EDT [facility] HN LAB POC COMMENT (GLUCOSE) Test Performed by Nursing Services 06/26/2023 20:01 EDT [facility] Blood CAPILLARY BLOOD / Unknown 06/26/2023 20:00 EDT 06/26/2023 20:01 EDT Hira Franklin MD POINT OF CARE TEST O RDERABLES [facility] [address], [place] [id number] * (ABNORMAL) POCT GLUCOSE, INTERFACED (06/26/2023 17:31 EDT) Glucose, POC 110(H) 70 - 100 mg/dL 06/26/2023 17:32 EDT [facility] HN LAB POC COMMENT (GLUCOSE) Test Performed by Nursing Services 06/26/2023 17:32 EDT [facility] Blood CAPILLARY BLOOD / Unknown 06/26/2023 17:31 EDT 06/26/2023 17:32 EDT Tai Azar MD POINT OF CARE TEST ORDERABLES Performing Organization Address [facility] Co de Phone Number [facility] [address] [place] [address] * (ABNORMAL) POCT GLUCOSE, INTERFACED (06/26/2023 13:18 EDT) Glucose, POC 145(H) 70 - 100 mg/dL 06/26/2023 13:19 EDT [facility] HN LAB POC COMMENT (GLUCOSE) Test Performed by Nursing Services 06/26/2023 13:19 EDT [facility] Blood CAPILLARY BLOOD / Unknown 06/26/2023 13:18 EDT 06/26/2023 13:19 EDT Hira Franklin MD POINT OF CARE TEST O RDERABLES Performing Organization Address [facility] Co de Phone Number [facility] [address] [place] [address] * TYPE AND SCREEN (06/26/2023 11:46 EDT) ABO O 06/26/2023 12:44 EDT [facility] Rh Factor Positive 06/26/2023 12:44 EDT [facility] Antibody Screen Negative 06/26/2023 12:44 EDT [facility] Specimen Expires: 06/29/2023 @ 23:59 06/26/2023 12:44 EDT [facility] Blood VENOUS BLOOD / Unknown Venipuncture / Unknown 06/26/2023 11:46 EDT 06/26/2023 12:02 EDT Isabell Nolasco MD BLOOD BANK TESTS Performing Organization Address City/[facility]/ZIP Co de Phone Number [facility] [address] [place] [address] * (ABNORMAL) POCT GLUCOSE, INTERFACED (06/26/2023 10:49 EDT) Glucose, POC 154(H) 70 - 100 mg/dL 06/26/2023 10:50 EDT [facility] HN LAB POC COMMENT (GLUCOSE) Test Performed by Nursing Services 06/26/2023 10:50 EDT [facility] Blood CAPILLARY BLOOD / Unknown 06/26/2023 10:49 EDT 06/26/2023 10:50 EDT Tai Azar MD POINT OF CARE TEST ORDERABLES Performing Organization Address [facility] Co de Phone Number [facility] [address] [place] [address] * MRSA PCR (06/26/2023 8:08 EDT) [facility] MRSA/Staph aureus Result No Staphylococcus aureus detected by PCR 06/26/2023 13:54 EDT [facility] Swab BOTH ANTERIOR NARES / Unknown Swab / Unknown 06/26/2023 8:08 EDT 06/26/2023 8:37 EDT Hira Franklin MD MICROBIOLOGY - GENER AL ORDERABLES Performing Organization Address City/[facility]/ZIP Co de Phone Number [facility] [address], [place] [phone] * (ABNORMAL) COMPLETE BLOOD COUNT AND DIFFERENTIAL (06/26/2023 8:04 EDT) WBC 9.99 4.00 - 12.40 K/cmm 06/26/2023 8:36 EDT [facility] RBC 2.58(L) 3.86 - 5.04 M/cmm 06/26/2023 8:36 [facility] Hemoglobin 7.4(L) 11.6 - 15.2 g/dL 06/26/2023 8:36 [facility] HCT 22.8(L) 34.9 - 44.4 % 06/26/2023 8:36 [facility] MCV 88 81 - 98 fL 06/26/2023 8:36 [facility] MCH 28.7 26.7 - 33.3 pg 06/26/2023 8:36 [facility] MCHC 32.5 32.1 - 35.9 g/dL 06/26/2023 8:36 [facility] RDW-CV 15.4(H) <14.7 % 06/26/2023 8:36 [facility] RDW-SD 48.9 <50.4 fl 06/26/2023 8:36 [facility] PLT 336 141 - 377 K/cmm 06/26/2023 8:36 [facility] MPV 9.7 9.5 - 12.7 fL 06/26/2023 8:36 [facility] % Neutrophils 82.0 % 06/26/2023 8:36 [facility] % Lymphocytes 8.0 % 06/26/2023 8:36 [facility] % Monocytes 8.3 % 06/26/2023 8:36 [facility] % Eosinophils 0.4 % 06/26/2023 8:36 [facility] % Basophils 0.4 % 06/26/2023 8:36 [facility] % Immature Grans 0.9 % 06/26/19 8:36 [facility] Absolute Neutrophils 8.19 2.20 - 8.85 K/cmm 06/26/2023 8:36 [facility] Absolute Lymphocytes 0.80(L) 1.09 - 3.30 K/cmm 06/26/2023 8:36 [facility] Absolute Monocytes 0.83(H) 0.10 - 0.80 K/cmm 06/26/2023 8:36 EDT [facility] Absolute Eosinophils 0.04 0.03 - 0.61 K/cmm 06/26/2023 8:36 EDT [facility] ABS Basophils 0.04 0.01 - 0.11 K/cm 06/26/2023 8:36 EDT [facility] Absolute Immature Grans 0.09(H) 0.00 - 0.06 K/cm 06/26/2023 8:36 EDT [facility] Type of Differential: Auto 06/26/2023 8:36 EDT [facility] Blood VENOUS BLOOD / Unknown Venipuncture / Unknown 06/26/2023 8:04 EDT 06/26/2023 8:14 EDT Hira Franklin MD PACKAGES & DNA PROBE ORDERABLES [facility] [address] [place] [address] * (ABNORMAL) POCT GLUCOSE, INTERFACED (06/26/2023 7:29 EDT) Glucose, POC 138(H) 70 - 100 mg/dL 06/26/2023 13:18 EDT [facility] HN LAB POC COMMENT (GLUCOSE) Test Performed by Nursing Services 06/26/2023 13:18 EDT [facility] Blood CAPILLARY BLOOD / Unknown 06/26/2023 7:29 EDT 06/26/2023 13:18 EDT Tai Azar MD POINT OF CARE TEST ORDERABLES [facility] [address] [place] [address] * XR CHEST PORTABLE 1 [...] above interpretation and agree with the findings. [id number] Narrative 06/26/2023 8:28 EDT XR CHEST PORTABLE [...] of the right shoulder. Resulting Agency Comment [id number] Procedure Note Thong Nagel MD - 06/26/2023 [...] the above interpretation andagree with the findings. [id number] Ayden Jennings [facility] DIAGNOSTIC IMAGI NG ORDERABLES * (ABNORMAL) BASIC METABOLIC PANEL (BMP) (06/26/2023 6:08 EDT) Sodium 131(L) 136 - 145 mmol/L 06/26/2023 7:58 EDT [facility] Potassium 4.3 3.5 - 5.0 mmol/L 06/26/2023 7:58 EDT [facility] Chloride 99 96 - 110 mmol/L 06/26/2023 7:58 EDT [facility] CO2 Total 23 22 - 32 mmol/L 06/26/2023 7:58 EDT [facility] Anion Gap 9 5 - 14 mmol/L 06/26/2023 7:58 EDT [facility] Glucose 123(H) 70 - 99 mg/dl 06/26/2023 7:58 T [facility] Calcium 7.6(L) 8.5 - 10.5 mg/dL 06/26/2023 7:58 T [facility] BUN 19 10 - 26 mg/dL 06/26/2023 7:58 EDT [facility] Creatinine 0.48(L) 0.52 - 1.04 mg/dL 06/26/2023 7:58 T [facility] eGFR 114 >60 mL/min/1.73 m2 06/26/2023 7:58 EDT [facility] Blood VENOUS BLOOD / Unknown Venipuncture / Unknown 06/26/2023 6:08 EDT 06/26/2023 6:44 EDT Reza Brito MD CHEMISTRY & BLOOD GA S ORDERABLES [facility] [address] [place] [address] * MAGNESIUM (06/26/2023 6:08 EDT) Pathologist [facility] Magnesium 2.0 1.7 - 2.8 mg/dL 06/26/2023 7:58 EDT [facility] Blood VENOUS BLOOD / Unknown Venipuncture / Unknown 06/26/2023 6:08 EDT 06/26/2023 6:44 EDT Reza Brito MD CHEMISTRY & BLOOD GA S ORDERABLES Performing Organization Address City/[facility] Co de Phone Number [facility] [address] [place] [address] * (ABNORMAL) PHOSPHORUS (06/26/2023 6:08 EDT) [facility] Phosphorus 5.1(H) 2.5 - 4.5 mg/dL 06/26/2023 7:58 EDT [facility] Blood VENOUS BLOOD / Unknown Venipuncture / Unknown 06/26/2023 6:08 EDT 06/26/2023 6:44 EDT Reza Brito MD CHEMISTRY & BLOOD GA S ORDERABLES Performing Organization Address City/[facility] Co de Phone Number [facility] [address] [place] [address] * (ABNORMAL) COMPLETE BLOOD COUNT AND DIFFERENTIAL (06/26/2023 6:08 EDT) [facility] WBC 10.84 4.00 - 12.40 K/cmm 06/26/2023 6:45 EDT [facility] RBC 2.41(L) 3.86 - 5.04 M/cmm 06/26/2023 6:45 EDT [facility] Hemoglobin 7.3(L) 11.6 - 15.2 g/dL 06/26/2023 6:45 EDT [facility] HCT 21.4(L) 34.9 - 44.4 % 06/26/2023 6:45 EDT [facility] MCV 89 81 - 98 fL 06/26/2023 6:45 [facility] MCH 30.3 26.7 - 33.3 pg 06/26/2023 6:45 [facility] MCHC 34.1 32.1 - 35.9 g/dL 06/26/2023 6:45 [facility] RDW-CV 15.3(H) <14.7 % 06/26/2023 6:45 [facility] RDW-SD 49.9 <50.4 fl 06/26/2023 6:45 [facility] PLT 349 141 - 377 K/cm 06/26/2023 6:45 [facility] MPV 9.7 9.5 - 12.7 fL 06/26/2023 6:45 [facility] % Neutrophils 79.6 % 06/26/2023 6:45 [facility] % Lymphocytes 9.8 % 06/26/2023 6:45 [facility] % Monocytes 9.0 % 06/26/2023 6:45 [facility] % Eosinophils 0.4 % 06/26/2023 6:45 [facility] % Basophils 0.4 % 06/26/2023 6:45 [facility] % Immature Grans 0.8 % 06/26/19 6:45 [facility] Absolute Neutrophils 8.63 2.20 - 8.85 K/cmm 06/26/2023 6:45 [facility] Absolute Lymphocytes 1.06(L) 1.09 - 3.30 K/cm 06/26/2023 6:45 [facility] Absolute Monocytes 0.98(H) 0.10 - 0.80 K/cmm 06/26/2023 6:45 [facility] Absolute Eosinophils 0.04 0.03 - 0.61 K/cm 06/26/2023 6:45 [facility] ABS Basophils 0.04 0.01 - 0.11 K/cm 06/26/2023 6:45 [facility] Absolute Immature Grans 0.09(H) 0.00 - 0.06 K/cmm 06/26/2023 6:45 EDT [facility] Type of Differential: Auto 06/26/2023 6:45 EDT [facility] Blood VENOUS BLOOD / Unknown Venipuncture / Unknown 06/26/2023 6:08 EDT 06/26/2023 6:33 EDT Ayden Lara Yi PACKAGES & DNA PROBE ORDERABLES [facility] [address], [place] [id number] * POCT BLOOD GAS, EG6 I-STAT (06/26/2023 0:37 EDT) pH, Arterial, i-STAT 7.43 7.35 - 7.45 06/26/2023 0:43 EDT [facility] PCO2, Arterial, i-STAT 38 35 - 45 mmHg 06/26/2023 0:43 EDT [facility] pO2, Arterial, i-STAT 89 80 - 105 mmHg 06/26/2023 0:43 EDT [facility] TCO2, Arterial, i-STAT 26 22 - 26 mmol/L 06/26/2023 0:43 EDT [facility] O2 Saturation, Arterial, i-STAT 97 95 - 98 % 06/26/2023 0:43 EDT [facility] Base Excess(+) / Deficit(-), Arterial, i-STAT 1 -2 - 3 mmol/L 06/26/2023 0:43 EDT [facility] Blood ARTERIAL BLOOD / Unknown 06/26/2023 0:37 EDT 06/26/2023 0:43 EDT Narrative [facility] - 06/26/2023 0:43 EDT Test [...] MD PhD POINT OF CARE TEST ORDERABLES [facility] [address] [place] [id number] * EKG 12-LEAD (06/25/2023 23:32 EDT) 06/25/2023 23:3 2 EDT Narrative [facility] E[facility] - 06/28/2023 17:45 EDT ? [facility] ? Test Date: ?2023-06-25 Pat Name: ? DELLA BROWNING ? Department: ?? [facility] ? Room: ? B690 Gender: ? Female ? 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 Requested By: BARBY MONTANEZ Order Number: [id number] ? Alicia MCCLENDON: ?? OTTONIEL TSAHL MD ? Measurements Intervals ?[place] ? Rate: ? 117 ?P: ?0 MS: ? 0 ?QRS: ?72 QRSD: ? 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: : 1970 Requested By: BARBY MONTANEZ Order Number: [id number] Alicia MD: OTTONIEL IGLESIAS Measurements Intervals [place] Rate: 117 P: 0 MS: 0 QRS: 72 QRSD: 89 T: 73 [...] Chrissie Rea MD CARDIAC ECG ORDERABL ES [facility] EKG * (ABNORMAL) POCT GLUCOSE, INTERFACED (06/25/2023 23:14 EDT) Glucose, POC 200(H) 70 - 100 mg/dL 06/25/2023 23:15 EDT [facility] HN LAB POC COMMENT (GLUCOSE) Test Performed by Nursing Services 06/25/2023 23:15 EDT [facility] Blood CAPILLARY BLOOD / Unknown 06/25/2023 23:14 EDT 06/25/2023 23:15 EDT Tai Azar MD POINT OF CARE TEST ORDERABLES [facility] [address] [place] [address] * (ABNORMAL) POCT BLOOD GAS, EG6 I-STAT (06/25/2023 23:11 EDT) pH, Arterial, i-STAT 7.33(L) 7.35 - 7.45 06/25/2023 23:16 T [facility] PCO2, Arterial, i-STAT 53(H) 35 - 45 mmHg 06/25/2023 23:16 [facility] pO2, Arterial, i-STAT 107(H) 80 - 105 mmHg 06/25/2023 23:16 [facility] TCO2, Arterial, i-STAT 30(H) 22 - 26 mmol/L 06/25/2023 23:16 T [facility] O2 Saturation, Arterial, i-STAT 98 95 - 98 % 06/25/2023 23:16 EDT [facility] Base Excess(+) / Deficit(-), Arterial, i-STAT 2 -2 - 3 mmol/L 06/25/2023 23:16 EDT [facility] Blood ARTERIAL BLOOD / Unknown 06/25/2023 23:11 EDT 06/25/2023 23:16 EDT Narrative [facility] - 06/25/2023 23:16 EDT Test [...] MD POINT OF CARE TEST O RDERABLES [facility] [address] [place] [address] * XR CHEST PORTABLE 1 VIEW (06/25/2023 22:40 EDT) Anatomical Region Laterality Modality Computed Radiogr aphy 06/26/2023 8:42 EDT Impressions 06/26/2023 8:42 EDT 1. ??Hydrostatic edema and likely bilateral effusions, definitive on the left. 2. ??Left lower lobe consolidation, presumably atelectasis. [id number] Narrative 06/26/2023 8:42 EDT XR CHEST PORTABLE [...] findings: ??Normal. Bones: Normal. Resulting Agency Comment [id number] Procedure Note Thong Nagel MD - 06/26/2023 [...] 2. Left lower lobe consolidation, presumably atelectasis. [id number] Chrissie Rea MD IMG DIAGNOSTIC IMAGI NG ORDERABLES * SLIDE REQUEST (06/25/2023 22:38 EDT) Note A smear is filed in the Hematology lab. 06/26/2023 0:03 EDT [facility] Blood VENOUS BLOOD / Unknown Venipuncture / Unknown 06/25/2023 22:38 EDT 06/25/2023 22:42 EDT Chrissie Rea MD HEMATOLOGY & PF4 ORD ERABLES [facility] [address] [place] [address] * (ABNORMAL) TROPONIN I (06/25/2023 22:38 EDT) Troponin I (ng/mL) 0.080(H) <0.034 ng/mL 06/25/2023 23:21 EDT [facility] Comment:Slight hemolysis miky ntified, interpret with caution as results may be affected due to hemolysis. Blood VENOUS BLOOD / Unknown Venipuncture / Unknown 06/25/2023 22:38 EDT 06/25/2023 22:42 EDT Narrative [facility] - 06/25/2023 23:21 EDT The results of this assay can be falsely lowered due to the consumption of Biotin. Chrissie Rea MD CHEMISTRY & BLOOD GA S ORDERABLES [facility] [address] [place] [address] * (ABNORMAL) BASIC METABOLIC PANEL (BMP) (06/25/2023 22:38 EDT) Sodium 132(L) 136 - 145 mmol/L 06/25/2023 23:00 EDT [facility] Potassium 5.0 3.5 - 5.0 mmol/L 06/25/2023 23:00 EDT [facility] Comment:Slight hemolysis miky ntified, interpret with caution as hemolysis will elevate potassium result. Chloride 98 96 - 110 mmol/L 06/25/2023 23:00 EDT [facility] CO2 Total 22 22 - 32 mmol/L 06/25/2023 23:00 T [facility] Anion Gap 12 5 - 14 mmol/L 06/25/2023 23:00 T [facility] Glucose 171(H) 70 - 99 mg/dl 06/25/2023 23:00 T [facility] Calcium 8.5 8.5 - 10.5 mg/dL 06/25/2023 23:00 T [facility] BUN 19 10 - 26 mg/dL 06/25/2023 23:00 T [facility] Comment: Slight hemolysis identified, interpret with caution as results may be affected due to hemolysis. Creatinine 0.45(L) 0.52 - 1.04 mg/dL 06/25/2023 23:00 EDT [facility] eGFR 116 >60 mL/min/1.7 3m2 06/25/2023 23:00 [facility] Blood VENOUS BLOOD / Unknown Venipuncture / Unknown 06/25/2023 22:38 EDT 06/25/2023 22:42 EDT Chrissie Rea MD CHEMISTRY & BLOOD GA S ORDERABLES Performing Organization Address [facility]/ZIP Co de Phone Number [facility] [address], [place] [phone] * (ABNORMAL) COMPLETE BLOOD COUNT (06/25/2023 22:38 EDT) WBC 20.32(H) 4.00 - 12.40 K/cmm 06/25/2023 23:48 EDT [facility] RBC 3.43(L) 3.86 - 5.04 M/cmm 06/25/2023 23:48 EDT [facility] Hemoglobin 10.4(L) 11.6 - 15.2 g/dL 06/25/2023 23:48 EDT [facility] HCT 30.8(L) 34.9 - 44.4 % 06/25/2023 23:48 EDT [facility] MCV 90 81 - 98 fL 06/25/2023 23:48 EDT [facility] MCH 30.3 26.7 - 33.3 pg 06/25/2023 23:48 EDT [facility] MCHC 33.8 32.1 - 35.9 g/dL 06/25/2023 23:48 EDT [facility] RDW-CV 15.9(H) <14.7 % 06/25/2023 23:48 EDT [facility] RDW-SD 51.8(H) <50.4 fl 06/25/2023 23:48 EDT [facility] PLT 592(H) 141 - 377 K/cmm 06/25/2023 23:48 EDT [facility] MPV 10.2 9.5 - 12.7 fL 06/25/2023 23:48 EDT [facility] Blood VENOUS BLOOD / Unknown Venipuncture / Unknown 06/25/2023 22:38 EDT 06/25/2023 22:42 EDT Chrissie Rea MD HEMATOLOGY & PF4 ORD ERABLES [facility] [address], [place] [phone] * (ABNORMAL) POCT GLUCOSE, INTERFACED (06/25/2023 17:07 EDT) Glucose, POC 169(H) 70 - 100 mg/dL 06/25/2023 17:09 EDT [facility] HN LAB POC COMMENT (GLUCOSE) Test Performed by Nursing Services 06/25/2023 17:09 EDT [facility] Blood CAPILLARY BLOOD / Unknown 06/25/2023 17:07 EDT 06/25/2023 17:09 EDT Tai Azar MD POINT OF CARE TEST ORDERABLES [facility] [address] [place] [phone] * (ABNORMAL) POCT GLUCOSE, INTERFACED (06/25/2023 12:05 EDT) Glucose, POC 187(H) 70 - 100 mg/dL 06/25/2023 12:06 EDT [facility] HN LAB POC COMMENT (GLUCOSE) Test Performed by Nursing Services 06/25/2023 12:06 EDT [facility] Blood CAPILLARY BLOOD / Unknown 06/25/2023 12:05 EDT 06/25/2023 12:06 EDT Tai Azar MD POINT OF CARE TEST ORDERABLES [facility] [address], [place] [phone] * (ABNORMAL) BASIC METABOLIC PANEL (BMP) (06/25/2023 8:33 EDT) Sodium 132(L) 136 - 145 mmol/L 06/25/2023 9:29 EDT [facility] Potassium 4.5 3.5 - 5.0 mmol/L 06/25/2023 9:29 EDT [facility] Chloride 99 96 - 110 mmol/L 06/25/2023 9:29 EDT [facility] CO2 Total 24 22 - 32 mmol/L 06/25/2023 9:29 EDT [facility] Anion Gap 9 5 - 14 mmol/L 06/25/2023 9:29 EDT [facility] Glucose 138(H) 70 - 99 mg/dl 06/25/2023 9:29 EDT [facility] Calcium 8.0(L) 8.5 - 10.5 mg/dL 06/25/2023 9:29 EDT [facility] BUN 17 10 - 26 mg/dL 06/25/2023 9:29 [facility] Creatinine 0.40(L) 0.52 - 1.04 mg/dL 06/25/2023 9:29 EDT [facility] eGFR 119 >60 mL/min/1.73 m2 06/25/2023 9:29 EDT [facility] Blood VENOUS BLOOD / Unknown Venipuncture / Unknown 06/25/2023 8:33 EDT 06/25/2023 9:01 EDT Reza Brito MD CHEMISTRY & BLOOD GA S ORDERABLES Performing Organization Address City/[facility]/ZIP Co de Phone Number [facility] [address], [place] [phone] * MAGNESIUM (06/25/2023 8:33 EDT) Magnesium 1.9 1.7 - 2.8 mg/dL 06/25/2023 9:29 EDT [facility] Blood VENOUS BLOOD / Unknown Venipuncture / Unknown 06/25/2023 8:33 EDT 06/25/2023 9:01 EDT Reza Brito MD CHEMISTRY & BLOOD GA S ORDERABLES Performing Organization Address City/[facility]/ZIP Co de Phone Number [facility] [address], [place] [phone] * (ABNORMAL) PHOSPHORUS (06/25/2023 8:33 EDT) Phosphorus 5.4(H) 2.5 - 4.5 mg/dL 06/25/2023 9:29 [facility] Blood VENOUS BLOOD / Unknown Venipuncture / Unknown 06/25/2023 8:33 EDT 06/25/2023 9:01 EDT Reza Brito MD CHEMISTRY & BLOOD GA S ORDERABLES [facility] [address] [place] [address] * (ABNORMAL) COMPLETE BLOOD COUNT AND DIFFERENTIAL (06/25/2023 8:33 EDT) Pathologist [facility] WBC 10.99 4.00 - 12.40 K/cmm 06/25/2023 9:01 [facility] RBC 2.74(L) 3.86 - 5.04 M/cmm 06/25/2023 9:01 [facility] Hemoglobin 8.2(L) 11.6 - 15.2 g/dL 06/25/2023 9:01 [facility] HCT 24.2(L) 34.9 - 44.4 % 06/25/2023 9:01 [facility] MCV 88 81 - 98 fL 06/25/2023 9:01 [facility] MCH 29.9 26.7 - 33.3 pg 06/25/2023 9:01 [facility] MCHC 33.9 32.1 - 35.9 g/dL 06/25/2023 9:01 [facility] RDW-CV 15.9(H) <14.7 % 06/25/2023 9:01 [facility] RDW-SD 50.2 <50.4 fl 06/25/2023 9:01 [facility] PLT 389(H) 141 - 377 K/cmm 06/25/2023 9:01 [facility] MPV 9.7 9.5 - 12.7 fL 06/25/2023 9:01 [facility] % Neutrophils 82.4 % 06/25/2023 9:01 [facility] % Lymphocytes 8.4 % 06/25/2023 9:01 [facility] % Monocytes 7.1 % 06/25/2023 9:01 [facility] % Eosinophils 0.4 % 06/25/2023 9:01 [facility] % Basophils 0.5 % 06/25/2023 9:01 [facility] % Immature Grans 1.2 % 06/25/19 9:01 [facility] Absolute Neutrophils 9.06(H) 2.20 - 8.85 K/cmm 06/25/2023 9:01 [facility] Absolute Lymphocytes 0.92(L) 1.09 - 3.30 K/cmm 06/25/2023 9:01 [facility] Absolute Monocytes 0.78 0.10 - 0.80 K/cmm 06/25/2023 9:01 [facility] Absolute Eosinophils 0.04 0.03 - 0.61 K/cmm 06/25/2023 9:01 [facility] ABS Basophils 0.06 0.01 - 0.11 K/cmm 06/25/2023 9:01 [facility] Absolute Immature Grans 0.13(H) 0.00 - 0.06 K/cmm 06/25/2023 9:01 [facility] Type of Differential: Auto 06/25/2023 9:01 [facility] Blood VENOUS BLOOD / Unknown Venipuncture / Unknown 06/25/2023 8:33 EDT 06/25/2023 8:40 EDT Ayden Jennings PACKAGES & DNA PROBE ORDERABLES [facility] [address] [place] [address] * (ABNORMAL) POCT GLUCOSE, INTERFACED (06/25/2023 5:15 EDT) Glucose, POC 161(H) 70 - 100 mg/dL 06/25/2023 5:15 EDT [facility] HN LAB POC COMMENT (GLUCOSE) Test Performed by Nursing Services 06/25/2023 5:15 EDT [facility] Blood CAPILLARY BLOOD / Unknown 06/25/2023 5:15 EDT 06/25/2023 5:15 EDT Tai Azar MD POINT OF CARE TEST ORDERABLES [facility] [address], [place] [phone] * (ABNORMAL) POCT GLUCOSE, INTERFACED (06/24/2023 23:25 EDT) Glucose, POC 128(H) 70 - 100 mg/dL 06/24/2023 23:26 EDT [facility] HN LAB POC COMMENT (GLUCOSE) Test Performed by Nursing Services 06/24/2023 23:26 EDT [facility] Blood CAPILLARY BLOOD / Unknown 06/24/2023 23:25 EDT 06/24/2023 23:26 EDT Tai Azar MD POINT OF CARE TEST ORDERABLES [facility] [address], [place] [address] * (ABNORMAL) POCT GLUCOSE, INTERFACED (06/24/2023 17:57 EDT) Glucose, POC 257(H) 70 - 100 mg/dL 06/24/2023 17:58 EDT [facility] HN LAB POC COMMENT (GLUCOSE) Test Performed by Nursing Services 06/24/2023 17:58 EDT [facility] Blood CAPILLARY BLOOD / Unknown 06/24/2023 17:57 EDT 06/24/2023 17:58 EDT Tai Azar MD POINT OF CARE TEST ORDERABLES Performing Organization Address [facility] Co de Phone Number [facility] [address] [place] [address] * (ABNORMAL) POCT GLUCOSE, INTERFACED (06/24/2023 12:45 EDT) Glucose, POC 235(H) 70 - 100 mg/dL 06/24/2023 12:46 EDT [facility] HN LAB POC COMMENT (GLUCOSE) Test Performed by Nursing Services 06/24/2023 12:46 EDT [facility] Blood CAPILLARY BLOOD / Unknown 06/24/2023 12:45 EDT 06/24/2023 12:46 EDT Tai Azar MD POINT OF CARE TEST ORDERABLES Performing Organization Address [facility] Co de Phone Number [facility] [address] [place] [address] * EKG 12-LEAD (06/24/2023 5:20 EDT) 06/24/2023 5:20 EDT Narrative [facility] EKG - 07/02/2023 9:54 EDT ? [facility] ? Test Date: ?2023-06-24 Pat Name: ? DELLA NALLELY ? Department: ?? Derek Rivera ? Room: ? B690 Gender: ? Female ? 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 [id number] : ?1970 ? Requested By: MARAH WHYTE Order Number: [id number] ? Reading MD: ?? LILLIAM FAN MD ? Measurements Intervals ?[place] ? Rate: ? 94 ? P: ?38 MS: ? 161 ?QRS: ?51 QRSD: ? 84 ? T: ?78 QT: ? 347 ? QTc: ?436 ? Interpretive Statements SINUS RHYTHM POOR R WAVE PROGRESSION ABNORMAL EKG I reviewed the tracing and have either agreed or edited the findings in this report. Electronically Signed On 07-02-2023 09:54:12 EDT by LILLIAM FAN MD. Procedure Note Lilliam Fan MD - 07/02/2023 [facility] Test Date: 2023-06-24 Pat Name: DELLA BROWNING Department: [place] [address] Room: [facility] Gender: Female Automobile Mechanic Assistant: [id number] : 1970 Requested By: MARAH WHYTE Order Number: [id number] Reading MD: LILLIAM FAN MD Measurements Intervals [place] Rate: 94 P: 38 MS: 161 QRS: 51 QRSD: 84 T: 78 QT: 347 QTc: 436 Interpretive Statements SINUS RHYTHM POOR R WAVE PROGRESSION ABNORMAL EKG I reviewed the tracing and have either agreed or edited the findings inthis report. Electronically Signed On 07-02-2023 09:54:12 EDT by GAYATRI MCCLENDON. Isabell Nolasco MD CARDIAC ECG ORDERABL ES [facility] EKG * (ABNORMAL) TROPONIN I (06/24/2023 5:07 EDT) Troponin I (ng/mL) 0.161(H) <0.034 ng/mL 06/24/2023 5:39 EDT [facility] Blood VENOUS BLOOD / Unknown Venipuncture / Unknown 06/24/2023 5:07 EDT 06/24/2023 5:11 EDT Narrative [facility] - 06/24/2023 5:39 EDT The results of this assay can be falsely lowered due to the consumption of Biotin. Isabell Nolasco MD CHEMISTRY & BLOOD GA S ORDERABLES [facility] [address] [place] [address] * (ABNORMAL) BASIC METABOLIC PANEL (BMP) (06/24/2023 5:07 EDT) Sodium 130(L) 136 - 145 mmol/L 06/24/2023 5:26 EDT [facility] Potassium 4.7 3.5 - 5.0 mmol/L 06/24/2023 5:26 [facility] Chloride 97 96 - 110 mmol/L 06/24/2023 5:26 [facility] CO2 Total 27 22 - 32 mmol/L 06/24/2023 5:26 T [facility] Anion Gap 6 5 - 14 mmol/L 06/24/2023 5:26 [facility] Glucose 257(H) 70 - 99 mg/dl 06/24/2023 5:26 [facility] Calcium 8.4(L) 8.5 - 10.5 mg/dL 06/24/2023 5:26 [facility] BUN 17 10 - 26 mg/dL 06/24/2023 5:26 [facility] Creatinine 0.39(L) 0.52 - 1.04 mg/dL 06/24/2023 5:26 [facility] eGFR 120 >60 mL/min/1.73 m2 06/24/2023 5:26 [facility] Blood VENOUS BLOOD / Unknown Venipuncture / Unknown 06/24/2023 5:07 EDT 06/24/2023 5:11 EDT Reza Brito MD CHEMISTRY & BLOOD GA S ORDERABLES [facility] [address] [place] [address] * MAGNESIUM (06/24/2023 5:07 EDT) Magnesium 1.9 1.7 - 2.8 mg/dL 06/24/2023 5:26 EDT [facility] Blood VENOUS BLOOD / Unknown Venipuncture / Unknown 06/24/2023 5:07 EDT 06/24/2023 5:11 EDT Reza Brito MD CHEMISTRY & BLOOD GA S ORDERABLES Performing Organization Address City/[facility]/ZIP Co de Phone Number [facility] [address] [place] [address] * (ABNORMAL) PHOSPHORUS (06/24/2023 5:07 EDT) Phosphorus 4.8(H) 2.5 - 4.5 mg/dL 06/24/2023 5:26 EDT [facility] Blood VENOUS BLOOD / Unknown Venipuncture / Unknown 06/24/2023 5:07 EDT 06/24/2023 5:11 EDT Reza Brito MD CHEMISTRY & BLOOD GA S ORDERABLES Performing Organization Address [facility]/ZIP Co de Phone Number [facility] [address] [place] [address] * (ABNORMAL) COMPLETE BLOOD COUNT AND DIFFERENTIAL (06/24/2023 5:07 EDT) WBC 14.87(H) 4.00 - 12.40 K/cmm 06/24/2023 5:17 [facility] RBC 3.08(L) 3.86 - 5.04 M/cmm 06/24/2023 5:17 [facility] Hemoglobin 9.2(L) 11.6 - 15.2 g/dL 06/24/2023 5:17 [facility] HCT 26.6(L) 34.9 - 44.4 % 06/24/2023 5:17 [facility] MCV 86 81 - 98 fL 06/24/2023 5:17 [facility] MCH 29.9 26.7 - 33.3 pg 06/24/2023 5:17 [facility] MCHC 34.6 32.1 - 35.9 g/dL 06/24/2023 5:17 [facility] RDW-CV 15.7(H) <14.7 % 06/24/2023 5:17 [facility] RDW-SD 48.8 <50.4 fl 06/24/2023 5:17 [facility] PLT 411(H) 141 - 377 K/cmm 06/24/2023 5:17 [facility] MPV 9.3(L) 9.5 - 12.7 fL 06/24/2023 5:17 [facility] % Neutrophils 87.2 % 06/24/2023 5:17 [facility] % Lymphocytes 6.1 % 06/24/2023 5:17 [facility] % Monocytes 5.0 % 06/24/2023 5:17 [facility] % Eosinophils 0.1 % 06/24/2023 5:17 [facility] % Basophils 0.3 % 06/24/2023 5:17 [facility] % Immature Grans 1.3 % 06/24/19 5:17 [facility] Absolute Neutrophils 12.96(H) 2.20 - 8.85 K/cmm 06/24/2023 5:17 [facility] Absolute Lymphocytes 0.91(L) 1.09 - 3.30 K/cmm 06/24/2023 5:17 [facility] Absolute Monocytes 0.75 0.10 - 0.80 K/cmm 06/24/2023 5:17 [facility] Absolute Eosinophils 0.02(L) 0.03 - 0.61 K/cmm 06/24/2023 5:17 [facility] ABS Basophils 0.04 0.01 - 0.11 K/cmm 06/24/2023 5:17 [facility] Absolute Immature Grans 0.19(H) 0.00 - 0.06 K/cmm 06/24/2023 5:17 [facility] Type of Differential: Auto 06/24/2023 5:17 [facility] Blood VENOUS BLOOD / Unknown Venipuncture / Unknown 06/24/2023 5:07 EDT 06/24/2023 5:10 EDT Ayden Jane Jennings PACKAGES & DNA PROBE ORDERABLES Performing Organization Address [facility] Co de Phone Number [facility] [address] [place] [address] * (ABNORMAL) POCT GLUCOSE, INTERFACED (06/24/2023 5:07 EDT) Glucose, POC 248(H) 70 - 100 mg/dL 06/24/2023 5:10 EDT [facility] HN LAB POC COMMENT (GLUCOSE) Test Performed by Nursing Services 06/24/2023 5:10 EDT [facility] Blood CAPILLARY BLOOD / Unknown 06/24/2023 5:07 EDT 06/24/2023 5:10 EDT Tai Azar MD POINT OF CARE TEST ORDERABLES Performing Organization Address [place]/[facility] Co de Phone Number [facility] [address] [place] [address] * ECG REPORT - SCANNED (06/24/2023 3:47 EDT) 06/24/2023 3:47 EDT Scan 2 Process Designer PROCEDURE/MINOR VI GICAL ORDERABLES * ECG REPORT - SCANNED (06/24/2023 3:47 EDT) 06/24/2023 3:47 EDT Scan 2 Process Designer PROCEDURE/MINOR VI GICAL ORDERABLES * (ABNORMAL) POCT GLUCOSE, INTERFACED (06/24/2023 0:15 EDT) Glucose, POC 202(H) 70 - 100 mg/dL 06/24/2023 0:43 EDT [facility] HN LAB POC COMMENT (GLUCOSE) Test Performed by Nursing Services 06/24/2023 0:43 EDT [facility] Blood CAPILLARY BLOOD / Unknown 06/24/2023 0:15 EDT 06/24/2023 0:43 EDT Tai Azar MD POINT OF CARE TEST ORDERABLES Performing Organization Address City/[facility]/ZIP Co de Phone Number [facility] [address] [place] [address] * (ABNORMAL) POCT GLUCOSE, INTERFACED (06/23/2023 17:44 EDT) Glucose, POC 129(H) 70 - 100 mg/dL 06/23/2023 17:46 EDT [facility] HN LAB POC COMMENT (GLUCOSE) Test Performed by Nursing Services 06/23/2023 17:46 EDT [facility] Blood CAPILLARY BLOOD / Unknown 06/23/2023 17:44 EDT 06/23/2023 17:46 EDT Tai Azar MD POINT OF CARE TEST ORDERABLES Performing Organization Address [facility]/ZIP Co de Phone Number [facility] [address] [place] [phone] * (ABNORMAL) POCT GLUCOSE, INTERFACED (06/23/2023 11:56 EDT) Glucose, POC 161(H) 70 - 100 mg/dL 06/23/2023 12:02 EDT [facility] HN LAB POC COMMENT (GLUCOSE) Test Performed by Nursing Services 06/23/2023 12:02 EDT [facility] Blood CAPILLARY BLOOD / Unknown 06/23/2023 11:56 EDT 06/23/2023 12:01 EDT Tai Azar MD POINT OF CARE TEST ORDERABLES Performing Organization Address City/[facility]/ZIP Co de Phone Number [facility] [address] [place] [address] * (ABNORMAL) POCT GLUCOSE, INTERFACED (06/23/2023 5:52 EDT) Glucose, POC 225(H) 70 - 100 mg/dL 06/23/2023 5:53 EDT [facility] HN LAB POC COMMENT (GLUCOSE) Test Performed by Nursing Services 06/[facility]23 [facility] Blood CAPILLARY BLOOD / Unknown 06/23/2023 5:52 EDT 06/23/2023 5:53 EDT Tai Azar MD POINT OF CARE TEST ORDERABLES Performing Organization Address City/State/[facility] Co de Phone Number [facility] [address] [place] [phone] * (ABNORMAL) BASIC METABOLIC PANEL (BMP) (06/23/2023 5:44 EDT) Pathologist [facility] Sodium 132(L) 136 - 145 mmol/L 06/23/2023 6:29 [facility] Potassium 4.8 3.5 - 5.0 mmol/L 06/23/2023 6:29 [facility] Chloride 98 96 - 110 mmol/L 06/23/2023 6:29 [facility] CO2 Total 25 22 - 32 mmol/L 06/23/2023 6:29 [facility] Anion Gap 9 5 - 14 mmol/L 06/23/2023 6:29 [facility] Glucose 231(H) 70 - 99 mg/dl 06/23/2023 6:29 [facility] Calcium 8.5 8.5 - 10.5 mg/dL 06/23/2023 6:29 [facility] BUN 17 10 - 26 mg/dL 06/23/2023 6:29 [facility] Creatinine 0.36(L) 0.52 - 1.04 mg/dL 06/23/2023 6:29 [facility] eGFR 122 >60 mL/min/1.73 m2 06/23/2023 6:29 EDT [facility] Blood VENOUS BLOOD / Unknown Venipuncture / Unknown 06/23/2023 5:44 EDT 06/23/2023 5:49 EDT Reza Brito MD CHEMISTRY & BLOOD GA S ORDERABLES Performing Organization Address City/[facility]/ZIP Co de Phone Number [facility] [address] [place] [address] * (ABNORMAL) MAGNESIUM (06/23/2023 5:44 EDT) Magnesium 1.6(L) 1.7 - 2.8 mg/dL 06/23/2023 6:29 EDT [facility] Blood VENOUS BLOOD / Unknown Venipuncture / Unknown 06/23/2023 5:44 EDT 06/23/2023 5:49 EDT Reza Brito MD CHEMISTRY & BLOOD GA S ORDERABLES Performing Organization Address [facility] Co de Phone Number [facility] [address] [place] [address] * PHOSPHORUS (06/23/2023 5:44 EDT) Phosphorus 3.6 2.5 - 4.5 mg/dL 06/23/2023 6:29 EDT [facility] Blood VENOUS BLOOD / Unknown Venipuncture / Unknown 06/23/2023 5:44 EDT 06/23/2023 5:49 EDT Reza Brito MD CHEMISTRY & BLOOD GA S ORDERABLES Performing Organization Address [facility] Co de Phone Number [facility] [address] [place] [address] * (ABNORMAL) COMPLETE BLOOD COUNT AND DIFFERENTIAL (06/23/2023 5:44 EDT) WBC 16.19(H) 4.00 - 12.40 K/cmm 06/23/2023 6:24 [facility] RBC 3.11(L) 3.86 - 5.04 M/cmm 06/23/2023 6:24 [facility] Hemoglobin 9.3(L) 11.6 - 15.2 g/dL 06/23/2023 6:24 [facility] HCT 27.7(L) 34.9 - 44.4 % 06/23/2023 6:24 [facility] MCV 89 81 - 98 fL 06/23/2023 6:24 [facility] MCH 29.9 26.7 - 33.3 pg 06/23/2023 6:24 [facility] MCHC 33.6 32.1 - 35.9 g/dL 06/23/2023 6:24 [facility] RDW-CV 15.9(H) <14.7 % 06/23/2023 6:24 [facility] RDW-SD 51.1(H) <50.4 fl 06/23/2023 6:24 [facility] PLT 484(H) 141 - 377 K/cm 06/23/2023 6:24 [facility] MPV 9.4(L) 9.5 - 12.7 fL 06/23/2023 6:24 [facility] % Neutrophils 88.3 % 06/23/2023 6:24 [facility] % Lymphocytes 5.4 % 06/23/2023 6:24 [facility] % Monocytes 4.1 % 06/23/2023 6:24 [facility] % Eosinophils 0.1 % 06/23/2023 6:24 [facility] % Basophils 0.2 % 06/23/2023 6:24 [facility] % Immature Grans 1.9 % 06/23/19 6:24 [facility] Absolute Neutrophils 14.29(H) 2.20 - 8.85 K/cmm 06/23/2023 6:24 [facility] Absolute Lymphocytes 0.87(L) 1.09 - 3.30 K/cmm 06/23/2023 6:24 T [facility] Absolute Monocytes 0.66 0.10 - 0.80 K/cmm 06/23/2023 6:24 EDT [facility] Absolute Eosinophils 0.02(L) 0.03 - 0.61 K/cmm 06/23/2023 6:24 T [facility] ABS Basophils 0.04 0.01 - 0.11 K/cmm 06/23/2023 6:24 T [facility] Absolute Immature Grans 0.31(H) 0.00 - 0.06 K/cmm 06/23/2023 6:24 T [facility] Type of Differential: Auto 06/23/2023 6:24 T [facility] Blood VENOUS BLOOD / Unknown Venipuncture / Unknown 06/23/2023 5:44 EDT 06/23/2023 5:49 EDT Ayden Jennings PACKAGES & DNA PROBE ORDERABLES [facility] [address] [place] [address] * (ABNORMAL) POCT GLUCOSE, INTERFACED (06/22/2023 23:48 EDT) Glucose, POC 243(H) 70 - 100 mg/dL 06/22/2023 23:49 EDT [facility] HN LAB POC COMMENT (GLUCOSE) Test Performed by Nursing Services 06/22/2023 23:49 EDT [facility] Blood CAPILLARY BLOOD / Unknown 06/22/2023 23:48 EDT 06/22/2023 23:49 EDT Tai Azar MD POINT OF CARE TEST ORDERABLES [facility] [address] [place] [address] * (ABNORMAL) POCT GLUCOSE, INTERFACED (06/22/2023 17:05 EDT) Glucose, POC 214(H) 70 - 100 mg/dL 06/22/2023 17:13 EDT [facility] HN LAB POC COMMENT (GLUCOSE) Test Performed by Nursing Services 06/22/2023 17:13 EDT [facility] Blood CAPILLARY BLOOD / Unknown 06/22/2023 17:05 EDT 06/22/2023 17:13 EDT Tai Azar MD POINT OF CARE TEST ORDERABLES [facility] [address], [place] [phone] * (ABNORMAL) POCT GLUCOSE, INTERFACED (06/22/2023 11:50 EDT) Glucose, POC 234(H) 70 - 100 mg/dL 06/22/2023 11:54 EDT [facility] HN LAB POC COMMENT (GLUCOSE) Test Performed by Nursing Services 06/22/2023 11:54 EDT [facility] Blood CAPILLARY BLOOD / Unknown 06/22/2023 11:50 EDT 06/22/2023 11:54 EDT Tai Azar MD POINT OF CARE TEST ORDERABLES [facility] [address] [place] [phone] * (ABNORMAL) POCT GLUCOSE, INTERFACED (06/22/2023 9:12 EDT) Glucose, POC 170(H) 70 - 100 mg/dL 06/22/2023 9:13 EDT [facility] HN LAB POC COMMENT (GLUCOSE) Test Performed by Nursing Services 06/22/2023 9:13 EDT [facility] Blood CAPILLARY BLOOD / Unknown 06/22/2023 9:12 EDT 06/22/2023 9:13 EDT Tai Azar MD POINT OF CARE TEST ORDERABLES Performing Organization Address City/[facility]/ZIP Co de Phone Number [facility] [address], [place] [phone] * (ABNORMAL) TROPONIN I (06/22/2023 8:04 EDT) Pathologist [facility] Troponin I (ng/mL) 0.348(H) <0.034 ng/mL 06/22/2023 8:49 EDT [facility] Blood VENOUS BLOOD / Unknown Venipuncture / Unknown 06/22/2023 8:04 EDT 06/22/2023 8:11 EDT Narrative [facility] - 06/22/2023 8:49 EDT The results of this assay can be falsely lowered due to the consumption of Biotin. Tai Azar MD CHEMISTRY & BLOOD G ORDERABLES Performing Organization Address [facility] Co de Phone Number [facility] [address] [place] [address] * (ABNORMAL) POCT GLUCOSE, INTERFACED (06/22/2023 8:03 EDT) Glucose, POC 194(H) 70 - 100 mg/dL 06/22/2023 8:04 EDT [facility] HN LAB POC COMMENT (GLUCOSE) Test Performed by Nursing Services 06/22/2023 8:04 EDT [facility] Blood CAPILLARY BLOOD / Unknown 06/22/2023 8:03 EDT 06/22/2023 8:04 EDT Tai Azar MD POINT OF CARE TEST ORDERABLES Performing Organization Address City/[facility]/ZIP Co de Phone Number [facility] [address], [place] [phone] * EKG 12-LEAD (06/22/2023 7:49 EDT) 06/22/2023 7:49 EDT Narrative [facility] - 07/05/2023 11:23 EDT ? [facility] ? Test Date: ?2023-06-22 Pat Name: ? DELLA BROWNING ? Department: ?? [facility] [address] ? Room: ? M316 Gender: ? Female ? 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 Requested By: LUCIUS LUJAN Order Number: [id number] ? Reading MD: ?? TRUNG OMKAR MD ? Measurements Intervals ?[place] ? Rate: ? 91 ? P: ?46 MS: ? 161 ?QRS: ?58 QRSD: ? 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 : 1970 Requested By: LUCIUS LUJAN Order Number: [id number] Reading MD: TRUNG ESPITIA MD Measurements Intervals [place] Rate: 91 P: 46 MS: 161 QRS: 58 QRSD: 84 T: 92 [...] Tai Azar MD CARDIAC ECG ORDERAB LES [facility] * (ABNORMAL) POCT GLUCOSE, INTERFACED (06/22/2023 7:30 EDT) Glucose, POC 183(H) 70 - 100 mg/dL 06/22/2023 7:31 EDT [facility] HN LAB POC COMMENT (GLUCOSE) Test Performed by Nursing Services 06/22/2023 7:31 EDT [facility] Blood CAPILLARY BLOOD / Unknown 06/22/2023 7:30 EDT 06/22/2023 7:31 EDT Tai Azar MD POINT OF CARE TEST ORDERABLES [facility] [address] [place] [address] * (ABNORMAL) BASIC METABOLIC PANEL (BMP) (06/22/2023 6:04 EDT) Sodium 136 136 - 145 mmol/L 06/22/2023 6:55 [facility] Potassium 4.8 3.5 - 5.0 mmol/L 06/22/2023 6:55 [facility] Chloride 102 96 - 110 mmol/L 06/22/2023 6:55 [facility] CO2 Total 25 22 - 32 mmol/L 06/22/2023 6:55 [facility] Anion Gap 9 5 - 14 mmol/L 06/22/2023 6:55 [facility] Glucose 220(H) 70 - 99 mg/dl 06/22/2023 6:55 [facility] Calcium 8.5 8.5 - 10.5 mg/dL 06/22/2023 6:55 [facility] BUN 15 10 - 26 mg/dL 06/22/2023 6:55 [facility] Creatinine 0.38(L) 0.52 - 1.04 mg/dL 06/22/2023 6:55 [facility] eGFR 120 >60 mL/min/1.73 m2 06/22/2023 6:55 EDT [facility] Blood VENOUS BLOOD / Unknown Venipuncture / Unknown 06/22/2023 6:04 EDT 06/22/2023 6:19 EDT Reza Brito MD CHEMISTRY & BLOOD GA S ORDERABLES Performing Organization Address City/[facility]/ZIP Co de Phone Number [facility] [address], [place] [phone] * MAGNESIUM (06/22/2023 6:04 EDT) Magnesium 1.8 1.7 - 2.8 mg/dL 06/22/2023 6:55 EDT [facility] Blood VENOUS BLOOD / Unknown Venipuncture / Unknown 06/22/2023 6:04 EDT 06/22/2023 6:19 EDT Reza Brito MD CHEMISTRY & BLOOD GA S ORDERABLES Performing Organization Address City/[facility] Co de Phone Number [facility] [address], [place] [phone] * PHOSPHORUS (06/22/2023 6:04 EDT) Phosphorus 2.8 2.5 - 4.5 mg/dL 06/22/2023 6:55 EDT [facility] Blood VENOUS BLOOD / Unknown Venipuncture / Unknown 06/22/2023 6:04 EDT 06/22/2023 6:19 EDT Reza Brito MD CHEMISTRY & BLOOD GA S ORDERABLES Performing Organization Address City/[facility] Co de Phone Number [facility] [address], [place] [phone] * (ABNORMAL) COMPLETE BLOOD COUNT AND DIFFERENTIAL (06/22/2023 6:04 EDT) WBC 14.26(H) 4.00 - 12.40 K/cmm 06/22/2023 6:36 [facility] RBC 3.14(L) 3.86 - 5.04 M/cmm 06/22/2023 6:36 [facility] Hemoglobin 9.1(L) 11.6 - 15.2 g/dL 06/22/2023 6:36 [facility] HCT 28.1(L) 34.9 - 44.4 % 06/22/2023 6:36 [facility] MCV 90 81 - 98 fL 06/22/2023 6:36 [facility] MCH 29.0 26.7 - 33.3 pg 06/22/2023 6:36 [facility] MCHC 32.4 32.1 - 35.9 g/dL 06/22/2023 6:36 [facility] RDW-CV 15.8(H) <14.7 % 06/22/2023 6:36 [facility] RDW-SD 50.5(H) <50.4 fl 06/22/2023 6:36 [facility] PLT 483(H) 141 - 377 K/cmm 06/22/2023 6:36 [facility] MPV 9.1(L) 9.5 - 12.7 fL 06/22/2023 6:36 [facility] % Neutrophils 83.6 % 06/22/2023 6:36 [facility] % Lymphocytes 8.5 % 06/22/2023 6:36 [facility] % Monocytes 3.9 % 06/22/2023 6:36 [facility] % Eosinophils 0.3 % 06/22/2023 6:36 [facility] % Basophils 0.4 % 06/22/2023 6:36 [facility] % Immature Grans 3.3 % 06/22/19 6:36 [facility] Absolute Neutrophils 11.94(H) 2.20 - 8.85 K/cmm 06/22/2023 6:36 EDT [facility] Absolute Lymphocytes 1.21 1.09 - 3.30 K/cmm 06/22/2023 6:36 EDT [facility] Absolute Monocytes 0.55 0.10 - 0.80 K/cmm 06/22/2023 6:36 EDT [facility] Absolute Eosinophils 0.04 0.03 - 0.61 K/cmm 06/22/2023 6:36 EDT [facility] ABS Basophils 0.05 0.01 - 0.11 K/cmm 06/22/2023 6:36 T [facility] Absolute Immature Grans 0.47(H) 0.00 - 0.06 K/cmm 06/22/2023 6:36 T [facility] Type of Differential: Auto 06/22/2023 6:36 T [facility] Blood VENOUS BLOOD / Unknown Venipuncture / Unknown 06/22/2023 6:04 EDT 06/22/2023 6:19 EDT Ayden Jennings PACKAGES & DNA PROBE ORDERABLES [facility] [address] [place] [phone] * (ABNORMAL) POCT GLUCOSE, INTERFACED (06/22/2023 5:36 EDT) Glucose, POC 225(H) 70 - 100 mg/dL 06/22/2023 5:37 EDT [facility] HN LAB POC COMMENT (GLUCOSE) Test Performed by Nursing Services 06/22/2023 5:37 EDT [facility] Blood CAPILLARY BLOOD / Unknown 06/22/2023 5:36 EDT 06/22/2023 5:37 EDT Tai Azar MD POINT OF CARE TEST ORDERABLES [facility] [address] [place] [address] * (ABNORMAL) POCT GLUCOSE, INTERFACED (06/22/2023 0:20 EDT) Glucose, POC 206(H) 70 - 100 mg/dL 06/22/2023 0:23 EDT [facility] HN LAB POC COMMENT (GLUCOSE) Test Performed by Nursing Services 06/22/2023 0:23 EDT [facility] Blood CAPILLARY BLOOD / Unknown 06/22/2023 0:20 EDT 06/22/2023 0:23 EDT Tai Azar MD POINT OF CARE TEST ORDERABLES [facility] [address], [place] [phone] * (ABNORMAL) POCT GLUCOSE, INTERFACED (06/21/2023 16:42 EDT) Glucose, POC 170(H) 70 - 100 mg/dL 06/21/2023 16:53 EDT [facility] HN LAB POC COMMENT (GLUCOSE) Test Performed by Nursing Services 06/21/2023 16:53 EDT [facility] Blood CAPILLARY BLOOD / Unknown 06/21/2023 16:42 EDT 06/21/2023 16:53 EDT Tai Azar MD POINT OF CARE TEST ORDERABLES [facility] [address], [place] [address] * (ABNORMAL) POCT GLUCOSE, INTERFACED (06/21/2023 11:30 EDT) Glucose, POC 194(H) 70 - 100 mg/dL 06/21/2023 11:32 EDT [facility] HN LAB POC COMMENT (GLUCOSE) Test Performed by Nursing Services 06/21/2023 11:32 EDT [facility] Blood CAPILLARY BLOOD / Unknown 06/21/2023 11:30 EDT 06/21/2023 11:31 EDT Tai Azar MD POINT OF CARE TEST ORDERABLES Performing Organization Address City/[facility]/ZIP Co de Phone Number [facility] [address] [place] [address] * (ABNORMAL) POCT GLUCOSE, INTERFACED (06/21/2023 9:41 EDT) Glucose, POC 184(H) 70 - 100 mg/dL 06/21/2023 9:43 EDT [facility] HN LAB POC COMMENT (GLUCOSE) Test Performed by Nursing Services 06/21/2023 9:43 EDT [facility] Blood CAPILLARY BLOOD / Unknown 06/21/2023 9:41 EDT 06/21/2023 9:43 EDT Tai Azar MD POINT OF CARE TEST ORDERABLES Performing Organization Address [facility]/ZIP Co de Phone Number [facility] [address] [place] [address] * (ABNORMAL) POCT GLUCOSE, INTERFACED (06/21/2023 5:09 EDT) Glucose, POC 163(H) 70 - 100 mg/dL 06/21/2023 5:31 EDT [facility] HN LAB POC COMMENT (GLUCOSE) Test Performed by Nursing Services 06/21/2023 5:31 EDT [facility] Blood CAPILLARY BLOOD / Unknown 06/21/2023 5:09 EDT 06/21/2023 5:31 EDT Reza Brito MD POINT OF CARE TEST O RDERABLES Performing Organization Address City/[facility]/ZIP Co de Phone Number [facility] [address] [place] [address] * (ABNORMAL) DIFFERENTIAL, AUTOMATED MANUAL (06/21/2023 5:07 EDT) % Neutrophils 83.3 Not Indicated % 06/21/2023 7:32 [facility] % Banded Neutrophils 0.9 Not Indicated % 06/21/2023 7:32 [facility] % Lymphocytes 7.9 Not Indicated % 06/21/2023 7:32 [facility] % Atypical Lymphocytes 0.9 Not Indicated % 06/21/2023 7:32 [facility] % Monocytes 3.5 Not Indicated % 06/21/2023 7:32 [facility] % Eosinophils 0.9 Not Indicated % 06/21/2023 7:32 [facility] % Metamyelocytes 1.7 Not Indicated % 06/21/2023 7:32 [facility] % Myelocytes 0.9 Not Indicated % 06/21/2023 7:32 [facility] Absolute Neutrophils 12.91(H) 2.20 - 8.85 K/cmm 06/21/2023 7:32 [facility] Absolute Bands 0.14 K/cmm 06/21/2023 7:32 [facility] Absolute Lymphocytes 1.22 1.09 - 3.30 K/cmm 06/21/2023 7:32 [facility] Absolute Atypical Lymphocytes 0.14 K/cmm 06/21/2023 7:32 [facility] Absolute Monocytes 0.54 0.10 - 0.80 K/cmm 06/21/2023 7:32 [facility] Absolute Eosinophils 0.14 0.03 - 0.61 K/cmm 06/21/2023 7:32 [facility] Absolute Metamyelocytes 0.26(H) <=0.00 K/cmm 06/21/2023 7:32 [facility] Absolute Myelocytes 0.14(H) <=0.00 K/cmm 06/21/2023 7:32 [facility] Type of Differential: Manual 06/21/2023 7:32 [facility] Blood VENOUS BLOOD / Unknown Venipuncture / Unknown 06/21/2023 5:07 EDT 06/21/2023 5:11 EDT Ayden Jennings HEMATOLOGY & PF4 ORD ERABLES [facility] [address] [place] [address] * (ABNORMAL) BASIC METABOLIC PANEL (BMP) (06/21/2023 5:07 EDT) Sodium 139 136 - 145 mmol/L 06/21/2023 5:49 EDT [facility] Potassium 5.2(H) 3.5 - 5.0 mmol/L 06/21/2023 5:49 EDT [facility] Chloride 106 96 - 110 mmol/L 06/21/2023 5:49 EDT [facility] CO2 Total 24 22 - 32 mmol/L 06/21/2023 5:49 EDT [facility] Anion Gap 9 5 - 14 mmol/L 06/21/2023 5:49 EDT [facility] Glucose 161(H) 70 - 99 mg/dl 06/21/2023 5:49 EDT [facility] Calcium 8.4(L) 8.5 - 10.5 mg/dL 06/21/2023 5:49 T [facility] BUN 20 10 - 26 mg/dL 06/21/2023 5:49 T [facility] Creatinine 0.32(L) 0.52 - 1.04 mg/dL 06/21/2023 5:49 T [facility] eGFR 126 >60 mL/min/1.73 m2 06/21/2023 5:49 T [facility] Blood VENOUS BLOOD / Unknown Venipuncture / Unknown 06/21/2023 5:07 EDT 06/21/2023 5:11 EDT Reza Brito MD CHEMISTRY & BLOOD GA S ORDERABLES [facility] [address], [place] [id number] * MAGNESIUM (06/21/2023 5:07 EDT) Pathologist [facility] Magnesium 2.1 1.7 - 2.8 mg/dL 06/21/2023 5:49 EDT [facility] Blood VENOUS BLOOD / Unknown Venipuncture / Unknown 06/21/2023 5:07 EDT 06/21/2023 5:11 EDT Reza Brito MD CHEMISTRY & BLOOD GA S ORDERABLES [facility] [address] [place] [address] * PHOSPHORUS (06/21/2023 5:07 EDT) Pathologist [facility] Phosphorus 2.5 2.5 - 4.5 mg/dL 06/21/2023 5:49 EDT [facility] Blood VENOUS BLOOD / Unknown Venipuncture / Unknown 06/21/2023 5:07 EDT 06/21/2023 5:11 EDT Reza Brito MD CHEMISTRY & BLOOD GA S ORDERABLES [facility] [address], [place] [id number] * (ABNORMAL) COMPLETE BLOOD COUNT AND DIFFERENTIAL (06/21/2023 5:07 EDT) WBC 15.50(H) 4.00 - 12.40 K/cmm 06/21/2023 5:25 EDT [facility] RBC 3.08(L) 3.86 - 5.04 M/cmm 06/21/2023 5:25 EDT [facility] Hemoglobin 9.4(L) 11.6 - 15.2 g/dL 06/21/2023 5:25 EDT [facility] HCT 27.7(L) 34.9 - 44.4 % 06/21/2023 5:25 EDT [facility] MCV 90 81 - 98 fL 06/21/2023 5:25 EDT [facility] MCH 30.5 26.7 - 33.3 pg 06/21/2023 5:25 EDT [facility] MCHC 33.9 32.1 - 35.9 g/dL 06/21/2023 5:25 EDT [facility] RDW-CV 16.3(H) <14.7 % 06/21/2023 5:25 EDT [facility] RDW-SD 53.0(H) <50.4 fl 06/21/2023 5:25 EDT [facility] PLT 475(H) 141 - 377 K/cmm 06/21/2023 5:25 EDT [facility] MPV 9.2(L) 9.5 - 12.7 fL 06/21/2023 5:25 EDT [facility] [facility] Blood VENOUS BLOOD / Unknown Venipuncture / Unknown 06/21/2023 5:07 EDT 06/21/2023 5:11 EDT Ayden Jennings PACKAGES & DNA PROBE ORDERABLES Performing Organization Address City/[facility]/ZIP Co de Phone Number [facility] [address] [place] [phone] * (ABNORMAL) POCT GLUCOSE, INTERFACED (06/20/2023 23:55 EDT) Glucose, POC 198(H) 70 - 100 mg/dL 06/20/2023 23:59 EDT [facility] HN LAB POC COMMENT (GLUCOSE) Test Performed by Nursing Services 06/20/2023 23:59 EDT [facility] Blood CAPILLARY BLOOD / Unknown 06/20/2023 23:55 EDT 06/20/2023 23:59 EDT Reza Brito MD POINT OF CARE TEST O RDERABLES [facility] [address] [place] [address] * (ABNORMAL) POCT GLUCOSE, INTERFACED (06/20/2023 18:51 EDT) Glucose, POC 214(H) 70 - 100 mg/dL 06/20/2023 18:52 EDT [facility] HN LAB POC COMMENT (GLUCOSE) Test Performed by Nursing Services 06/20/2023 18:52 EDT [facility] Blood CAPILLARY BLOOD / Unknown 06/20/2023 18:51 EDT 06/20/2023 18:52 EDT Reza Brito MD POINT OF CARE TEST O RDERABLES [facility] [address] [place] [address] * XR CHEST PORTABLE 1 VIEW (06/20/2023 15:03 EDT) Anatomical Region Laterality Modality Computed Radiogr aphy 06/20/2023 15:0 9 EDT Impressions 06/20/2023 15:09 EDT Findings of improving left lower lobe atelectasis and persistent interstitial pulmonary edema. [id number] Narrative 06/20/2023 15:09 EDT XR CHEST PORTABLE [...] lower lobe atelectasis and persistentinterstitial pulmonary edema. [id number] Reza Brito MD IMG DIAGNOSTIC IMAGI NG [...] view is needed, formal films are recommended. [id number] Narrative 06/20/2023 14:35 EDT XR FEEDING TUBE [...] view is needed, formal films are recommended. [id number] Reza Brito MD IMG DIAGNOSTIC IMAGI NG ORDERABLES * (ABNORMAL) POCT GLUCOSE, INTERFACED (06/20/2023 12:23 EDT) Glucose, POC 185(H) 70 - 100 mg/dL 06/20/2023 12:24 EDT [facility] HN LAB POC COMMENT (GLUCOSE) Test Performed by Nursing Services 06/20/2023 12:24 EDT [facility] Blood CAPILLARY BLOOD / Unknown 06/20/2023 12:23 EDT 06/20/2023 12:24 EDT Reza Brito MD POINT OF CARE TEST O RDERABLES [facility] [address] [place] [phone] * ECG REPORT - SCANNED (06/20/2023 9:33 EDT) 06/20/2023 9:33 EDT Scan 2 Process Designer PROCEDURE/MINOR VI GICAL ORDERABLES * (ABNORMAL) DIFFERENTIAL, AUTOMATED MANUAL (06/20/2023 5:01 EDT) % Neutrophils 89.5 Not Indicated % 06/20/2023 5:54 EDT [facility] % Banded Neutrophils 1.7 Not Indicated % 06/20/2023 5:54 T [facility] % Lymphocytes 5.3 Not Indicated % 06/20/2023 5:54 T [facility] % Monocytes 2.6 Not Indicated % 06/20/2023 5:54 T [facility] % Metamyelocytes 0.9 Not Indicated % 06/20/2023 5:54 T [facility] Stomatocytes 2+ 06/20/2023 5:54 T [facility] Basophilic Stippling Present in <2% of RBCs 06/20/2023 5:54 [facility] Absolute Neutrophils 17.43(H) 2.20 - 8.85 K/cmm 06/20/2023 5:54 T [facility] Absolute Bands 0.33 K/cmm 06/20/2023 5:54 [facility] Absolute Lymphocytes 1.03(L) 1.09 - 3.30 K/cmm 06/20/2023 5:54 [facility] Absolute Monocytes 0.51 0.10 - 0.80 K/cmm 06/20/2023 5:54 [facility] Absolute Metamyelocytes 0.18(H) <=0.00 K/cmm 06/20/2023 5:54 [facility] Type of Differential: Manual 06/20/2023 5:54 [facility] Blood VENOUS BLOOD / Unknown Venipuncture / Unknown 06/20/2023 5:01 EDT 06/20/2023 5:06 EDT Ayden Jennings HEMATOLOGY & PF4 ORD ERABLES [facility] [address] [place] [address] * (ABNORMAL) BASIC METABOLIC PANEL (BMP) (06/20/2023 5:01 EDT) Sodium 139 136 - 145 mmol/L 06/20/2023 5:27 T [facility] Potassium 5.3(H) 3.5 - 5.0 mmol/L 06/20/2023 5:27 [facility] Chloride 108 96 - 110 mmol/L 06/20/2023 5:27 [facility] CO2 Total 23 22 - 32 mmol/L 06/20/2023 5:27 [facility] Anion Gap 8 5 - 14 mmol/L 06/20/2023 5:27 [facility] Glucose 202(H) 70 - 99 mg/dl 06/20/2023 5:27 EDT [facility] Calcium 8.2(L) 8.5 - 10.5 mg/dL 06/20/2023 5:27 EDT [facility] BUN 27(H) 10 - 26 mg/dL 06/20/2023 5:27 EDT [facility] Creatinine 0.54 0.52 - 1.04 mg/dL 06/20/2023 5:27 EDT [facility] eGFR 111 >60 mL/min/1.73 m2 06/20/2023 5:27 EDT [facility] Blood VENOUS BLOOD / Unknown Venipuncture / Unknown 06/20/2023 5:01 EDT 06/20/2023 5:06 EDT Reza Brito MD CHEMISTRY & BLOOD GA S ORDERABLES Performing Organization Address City/[facility] Co de Phone Number [facility] [address] [place] [phone] * MAGNESIUM (06/20/2023 5:01 EDT) Magnesium 2.1 1.7 - 2.8 mg/dL 06/20/2023 5:27 EDT [facility] Blood VENOUS BLOOD / Unknown Venipuncture / Unknown 06/20/2023 5:01 EDT 06/20/2023 5:06 EDT Reza Brito MD CHEMISTRY & BLOOD GA S ORDERABLES [facility] [address] [place] [address] * PHOSPHORUS (06/20/2023 5:01 EDT) Phosphorus 3.5 2.5 - 4.5 mg/dL 06/20/2023 5:27 EDT [facility] Blood VENOUS BLOOD / Unknown Venipuncture / Unknown 06/20/2023 5:01 EDT 06/20/2023 5:06 EDT Reza Brito MD CHEMISTRY & BLOOD GA S ORDERABLES [facility] [address], [place] [phone] * (ABNORMAL) COMPLETE BLOOD COUNT AND DIFFERENTIAL (06/20/2023 5:01 EDT) WBC 19.47(H) 4.00 - 12.40 K/cmm 06/20/2023 5:19 T [facility] RBC 3.23(L) 3.86 - 5.04 M/cmm 06/20/2023 5:19 [facility] Hemoglobin 9.5(L) 11.6 - 15.2 g/dL 06/20/2023 5:19 [facility] HCT 28.8(L) 34.9 - 44.4 % 06/20/2023 5:19 [facility] MCV 89 81 - 98 fL 06/20/2023 5:19 [facility] MCH 29.4 26.7 - 33.3 pg 06/20/2023 5:19 [facility] MCHC 33.0 32.1 - 35.9 g/dL 06/20/2023 5:19 [facility] RDW-CV 16.5(H) <14.7 % 06/20/2023 5:19 [facility] RDW-SD 53.1(H) <50.4 fl 06/20/2023 5:19 [facility] PLT 455(H) 141 - 377 K/cmm 06/20/2023 5:19 [facility] MPV 9.3(L) 9.5 - 12.7 fL 06/20/2023 5:19 [facility] Blood VENOUS BLOOD / Unknown Venipuncture / Unknown 06/20/2023 5:01 EDT 06/20/2023 5:06 EDT Ayden Jennings PACKAGES & DNA PROBE ORDERABLES Performing Organization Address City/[facility]/ZIP Co de Phone Number [facility] [address], [place] [phone] * (ABNORMAL) POCT GLUCOSE, INTERFACED (06/20/2023 5:00 EDT) Glucose, POC 208(H) 70 - 100 mg/dL 06/20/2023 5:04 EDT [facility] HN LAB POC COMMENT (GLUCOSE) Test Performed by Nursing Services 06/20/2023 5:04 EDT [facility] Blood CAPILLARY BLOOD / Unknown 06/20/2023 5:00 EDT 06/20/2023 5:04 EDT Reza Brito MD POINT OF CARE TEST O RDERABLES Performing Organization Address [facility] Co de Phone Number [facility] [address], [place] [address] * (ABNORMAL) POCT GLUCOSE, INTERFACED (06/20/2023 2:03 EDT) Glucose, POC 215(H) 70 - 100 mg/dL 06/20/2023 2:06 EDT [facility] HN LAB POC COMMENT (GLUCOSE) Test Performed by Nursing Services 06/20/2023 2:06 EDT [facility] Blood CAPILLARY BLOOD / Unknown 06/20/2023 2:03 EDT 06/20/2023 2:06 EDT Reza Brito MD POINT OF CARE TEST O RDERAMICHAEL Performing Organization Address City/[facility]/ZIP Co de Phone Number [facility] [address], [place] [phone] * (ABNORMAL) POCT GLUCOSE, INTERFACED (06/19/2023 18:06 EDT) Glucose, POC 135(H) 70 - 100 mg/dL 06/19/2023 18:07 EDT [facility] HN LAB POC COMMENT (GLUCOSE) Test Performed by Nursing Services 06/19/2023 18:07 [facility] Blood CAPILLARY BLOOD / Unknown 06/19/2023 18:06 EDT 06/19/2023 18:07 EDT Reza Brito MD POINT OF CARE TEST O RDERABLES [facility] [address] [place] [address] * (ABNORMAL) BASIC METABOLIC PANEL (BMP) (06/19/2023 12:28 EDT) Sodium 137 136 - 145 mmol/L 06/19/2023 13:09 [facility] Potassium 4.9 3.5 - 5.0 mmol/L 06/19/2023 13:09 [facility] Chloride 107 96 - 110 mmol/L 06/19/2023 13:09 [facility] CO2 Total 18(L) 22 - 32 mmol/L 06/19/2023 13:09 [facility] Anion Gap 12 5 - 14 mmol/L 06/19/2023 13:09 [facility] Glucose 122(H) 70 - 99 mg/dl 06/19/2023 13:09 [facility] Calcium 8.3(L) 8.5 - 10.5 mg/dL 06/19/2023 13:09 [facility] BUN 27(H) 10 - 26 mg/dL 06/19/2023 13:09 [facility] Creatinine 0.45(L) 0.52 - 1.04 mg/dL 06/19/2023 13:09 [facility] eGFR 116 >60 mL/min/1.73 m2 06/19/2023 13:09 [facility] Blood VENOUS BLOOD / Unknown Venipuncture / Unknown 06/19/2023 12:28 EDT 06/19/2023 12:34 EDT Ayden Jennings CHEMISTRY & BLOOD GA S ORDERABLES Performing Organization Address City/[facility]/ZIP Co de Phone Number [facility] [address] [place] [address] * (ABNORMAL) POCT GLUCOSE, INTERFACED (06/19/2023 11:51 EDT) Glucose, POC 121(H) 70 - 100 mg/dL 06/19/2023 11:53 EDT [facility] HN LAB POC COMMENT (GLUCOSE) Test Performed by Nursing Services 06/19/2023 11:53 EDT [facility] Blood CAPILLARY BLOOD / Unknown 06/19/2023 11:51 EDT 06/19/2023 11:53 EDT Reza Brito MD POINT OF CARE TEST O RDERABLES Performing Organization Address [facility] Co de Phone Number [facility] [address] [place] [address] * TRANSFUSION RECORD - SCANNED (06/19/2023 11:42 EDT) 06/19/2023 11:4 2 EDT Scan 2 Process Designer LAB INFO SERVICE AN D SUPPORT & PHONE RESULT * (ABNORMAL) POCT GLUCOSE, INTERFACED (06/19/2023 10:12 EDT) Glucose, POC 112(H) 70 - 100 mg/dL 06/19/2023 10:14 EDT [facility] HN LAB POC COMMENT (GLUCOSE) Test Performed by Nursing Services 06/19/2023 10:14 EDT [facility] Blood CAPILLARY BLOOD / Unknown 06/19/2023 10:12 EDT 06/19/2023 10:14 EDT Ayden Jennings POINT OF CARE TEST O RDERABLES Performing Organization Address City/[facility]/ZIP Co de Phone Number [facility] [address] [place] [address] * TRANSTHORACIC ECHO (TTE) COMPLETE W/DOPPLER W/CF NO CONTRAST (06/19/2023 9:46 EDT) [facility] Mitral deceleration time 141 ms [facility] POINT OF CARE [place] 1.4 cm2/m2 [facility] PO INT OF CARE AV DOI 0.89 [facility] POIN T OF CARE LV Diastolic Volume 79 mL [facility] POINT OF CARE LV Systolic Volume 35 mL [facility] POINT OF CARE Mitral A-wave peak velocity [...] ES, PLAX 2.5 2.1 - 4.0 cm [facility] POINT OF CARE LV PW thickness, ED, PLAX 1.0 0.6 - 1.1 cm [facility] POINT OF CARE LV ID, ED, PLAX 4.4 3.5 - 6.0 cm [facility] POINT OF CARE LVIDD BY MMODE 4.4 cm [facility] POINT OF CARE LA volume/bsa, ES, BP 17.0 ml/m2 [facility] POINT OF CARE LA volume, ES, BP 32.0 ml [facility] POINT OF CARE LA volume/bsa, ES, A4C 15.0 ml/m2 [facility] POINT OF CARE LA Atrial Area A2C 11.6 cm2 [facility] POINT OF CARE LA Atrial Length A2C 4.6 cm [facility] POINT OF CARE LA volumes, ES, A4C 28.0 ml [facility]INT [facility] LA Atrial Area A4C 11.6 cm2 U [facility] POINT OF CARE LA Atrial Length A4C 3.9 cm [facility] POINT OF CARE Pulmonic valve mean velocity, S 1 cm/s [facility] POINT OF CARE LA ID, A-P, ES 2.8 cm [facility] POINT OF CARE LV end-diastolic volume, 1-p A4C 70 ml [facility] POINT OF CARE LV end diastolic volume 1-p A2C 69 ml [facility] POINT OF CARE Stroke index (SV/bsa) LVOT DP 34.0 ml/m2 [facility] POINT OF CARE LA/aortic root ratio 1.04 [facility] POINT OF CARE LV E/e', medial 10.0 [facility] N POINT OF CARE LV e', lateral 0.13 m/s [facility] POINT OF CARE LV e', medial 0.10 m/s [facility] POINT OF CARE LVOT mean velocity, S 0.8 m/s [facility] POINT OF CARE Interventricular Septum to Posterior Wall Thickness Ratio 1 [facility] P OINT OF CARE IVS thickness, ED, PLAX 0.9 cm [facility] POINT OF CARE LV E/e', lateral 7.1 [...] color Doppler.The study was interpreted by [facility]. Pertinent images and digital [...] (06/19/2023 9:07 EDT) 06/19/2023 9:07 EDT Narrative [facility] - 06/23/2023 15:27 EDT ? [facility] ? Test Date: ?2023-06-19 Pat Name: ? DELLA BROWNING ? Department: ?? [facility]essa 3 ? Room: ? M316 Gender: ? Female ? 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 Requested By: YI Lara Order Number: [id number] ? Alicia MCCLENDON: ?? ROBB EDEN MD ? Measurements Intervals ?[place] ? Rate: ? 100 ?P: ?39 MS: ? 178 ?QRS: ?19 QRSD: ? 72 [...] Note Robb Eden MD - 06/23/2023 [facility] Test Date: 2023-06-19 Pat Name: DELLA BROWNING Department: [place] Room: 16 Gender: Female Automobile Mechanic Assistant: ANAND : 1970 Requested By: YI Lara Order Number: [id number] Reading MD: ROBB EDEN MD Measurements Intervals [place] Rate: 100 P: 39 MS: 178 QRS: 19 QRSD: 72 T: 54 [...] FIGUEREDO. Ayden Jennings CARDIAC ECG ORDERABL ES Performing Organization Address City/[facility]/ZIP Co de Phone Number [facility] * (ABNORMAL) POCT GLUCOSE, INTERFACED (06/19/2023 8:06 EDT) Glucose, POC 159(H) 70 - 100 mg/dL 06/19/2023 8:07 EDT [facility] HN LAB POC COMMENT (GLUCOSE) Test Performed by Nursing Services 06/19/2023 8:07 EDT [facility] Blood CAPILLARY BLOOD / Unknown 06/19/2023 8:06 EDT 06/19/2023 8:07 EDT Ayden Jennings POINT OF CARE TEST O RDERABLES Performing Organization Address [facility] Co de Phone Number [facility] [address] [place] [phone] * (ABNORMAL) DIFFERENTIAL, AUTOMATED MANUAL (06/19/2023 5:04 EDT) % Neutrophils 87.1 Not Indicated % 06/19/2023 6:00 EDT [facility] % Lymphocytes 6.0 Not Indicated % 06/19/2023 6:00 EDT [facility] % Monocytes 2.6 Not Indicated % 06/19/2023 6:00 EDT [facility] % Basophils 0.9 Not Indicated % 06/19/2023 6:00 EDT [facility] % Metamyelocytes 1.7 Not Indicated % 06/19/2023 6:00 EDT [facility] % Myelocytes 1.7 Not Indicated % 06/19/2023 6:00 EDT [facility] Absolute Neutrophils 22.47(H) 2.20 - 8.85 K/cmm 06/19/2023 6:00 EDT [facility] Absolute Lymphocytes 1.55 1.09 - 3.30 K/cmm 06/19/2023 6:00 EDT [facility] Absolute Monocytes 0.67 0.10 - 0.80 K/cmm 06/19/2023 6:00 T [facility] ABS Basophils 0.23(H) 0.01 - 0.11 K/cmm 06/19/2023 6:00 T [facility] Absolute Metamyelocytes 0.44(H) <=0.00 K/cmm 06/19/2023 6:00 T [facility] Absolute Myelocytes 0.44(H) <=0.00 K/cmm 06/19/2023 6:00 [facility] Type of Differential: Manual 06/19/2023 6:00 [facility] Blood VENOUS BLOOD / Unknown Venipuncture / Unknown 06/19/2023 5:04 EDT 06/19/2023 5:13 EDT Ayden Jennings HEMATOLOGY & PF4 ORD ERABLES [facility] [address] [place] [address] * (ABNORMAL) COMPLETE BLOOD COUNT AND DIFFERENTIAL (06/19/2023 5:04 EDT) WBC 25.80(H) 4.00 - 12.40 K/cmm 06/19/2023 5:28 EDT [facility] RBC 3.49(L) 3.86 - 5.04 M/cmm 06/19/2023 5:28 T [facility] Hemoglobin 10.5(L) 11.6 - 15.2 g/dL 06/19/2023 5:28 T [facility] HCT 31.0(L) 34.9 - 44.4 % 06/19/2023 [facility] M[facility] 89 81 - 98 fL 06/19/2023 5:28 [facility] MCH 30.1 26.7 - 33.3 pg 06/19/2023 5:28 [facility] MCHC 33.9 32.1 - 35.9 g/dL 06/19/2023 5:28 [facility] RDW-CV 16.8(H) <14.7 % 06/19/2023 5:28 [facility] RDW-SD 53.4(H) <50.4 fl 06/19/2023 5:28 [facility] PLT 521(H) 141 - 377 K/cmm 06/19/2023 5:28 [facility] MPV 9.3(L) 9.5 - 12.7 fL 06/19/2023 5:28 [facility] Blood VENOUS BLOOD / Unknown Venipuncture / Unknown 06/19/2023 5:04 EDT 06/19/2023 5:13 EDT Ayden Jennings PACKAGES & DNA PROBE ORDERABLES [facility] [address] [place] [address] * (ABNORMAL) BASIC METABOLIC PANEL (BMP) (06/19/2023 5:03 EDT) Sodium 136 136 - 145 mmol/L 06/19/2023 5:49 [facility] Potassium 5.6(H) 3.5 - 5.0 mmol/L 06/19/2023 5:49 [facility] Chloride 107 96 - 110 mmol/L 06/19/2023 5:49 [facility] CO2 Total 20(L) 22 - 32 mmol/L 06/19/2023 5:49 [facility] Anion Gap 9 5 - 14 mmol/L 06/19/2023 5:49 [facility] Glucose 180(H) 70 - 99 mg/dl 06/19/2023 5:49 EDT [facility] Calcium 8.4(L) 8.5 - 10.5 mg/dL 06/19/2023 5:49 EDT [facility] BUN 31(H) 10 - 26 mg/dL 06/19/2023 5:49 EDT [facility] Creatinine 0.52 0.52 - 1.04 mg/dL 06/19/2023 5:49 EDT [facility] eGFR 112 >60 mL/min/1.73 m2 06/19/2023 5:49 EDT [facility] Blood VENOUS BLOOD / Unknown Venipuncture / Unknown 06/19/2023 5:03 EDT 06/19/2023 5:13 EDT Reza Brito MD CHEMISTRY & BLOOD GA S ORDERABLES Performing Organization Address City/[facility]/ZIP Co de Phone Number [facility] [address] [place] [address] * MAGNESIUM (06/19/2023 5:03 EDT) Magnesium 2.1 1.7 - 2.8 mg/dL 06/19/2023 5:49 EDT [facility] Blood VENOUS BLOOD / Unknown Venipuncture / Unknown 06/19/2023 5:03 EDT 06/19/2023 5:13 EDT Reza Brito MD CHEMISTRY & BLOOD GA S ORDERABLES [facility] [address], [place] [address] * (ABNORMAL) PHOSPHORUS (06/19/2023 5:03 EDT) Phosphorus 4.8(H) 2.5 - 4.5 mg/dL 06/19/2023 5:49 EDT [facility] Blood VENOUS BLOOD / Unknown Venipuncture / Unknown 06/19/2023 5:03 EDT 06/19/2023 5:13 EDT Reza Brito MD CHEMISTRY & BLOOD GA S ORDERABLES Performing Organization Address City/[facility]/ZIP Co de Phone Number [facility] [address], [place] [phone] * (ABNORMAL) POCT BLOOD GAS, EG6 I-STAT (06/19/2023 2:58 EDT) pH, Arterial, i-STAT 7.26(L) 7.35 - 7.45 06/19/2023 3:15 EDT [facility] PCO2, Arterial, i-STAT 46(H) 35 - 45 mmHg 06/19/2023 3:15 EDT [facility] pO2, Arterial, i-STAT 162(H) 80 - 105 mmHg 06/19/2023 3:15 EDT [facility] TCO2, Arterial, i-STAT 22 22 - 26 mmol/L 06/19/2023 3:15 EDT [facility] O2 Saturation, Arterial, i-STAT 99(H) 95 - 98 % 06/19/2023 3:15 EDT [facility] Base Excess(+) / Deficit(-), Arterial, i-STAT -6(L) -2 - 3 mmol/L 06/19/2023 3:15 EDT [facility] Blood ARTERIAL BLOOD / Unknown 06/19/2023 2:58 EDT 06/19/2023 3:14 EDT Narrative [facility] - 06/19/2023 3:15 EDT Test [...] CARE T EST ORDERABLES Performing Organization Address City/[facility]/ZIP Co de Phone Number [facility] [address] [place] [address] * EKG 12-LEAD (06/19/2023 2:03 EDT) 06/19/2023 2:03 EDT Narrative [facility] EKG - 06/23/2023 15:24 EDT ? [facility] ? Test Date: ?2023-06-19 Pat Name: ? DELLA BROWNING ? Department: ?? [facility] [address] ? Room: ? M316 Gender: ? Female ? 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 [id number] : ?1970 ? Requested By: DIANNA ÁNGEL Order Number: [id number] ? Alicia MD: ?? ROBB EDEN MD ? Measurements Intervals ?[place] ? Rate: ? 116 ?P: ?44 MS: ? 180 ?QRS: ?-6 QRSD: ? 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: [id number] : 1970 Requested By: DIANNA CRAFT Order Number: [id number] Reading MD: ROBB EDEN MD Measurements Intervals [place] Rate: 116 P: 44 MS: 180 QRS: -6 QRSD: 69 T: 22 [...] CARDIAC ECG ORDERABL ES Performing Organization Address City/[facility]/ZIP Co de Phone Number [facility] E[facility] * (ABNORMAL) POCT GLUCOSE, INTERFACED (06/19/2023 1:20 EDT) Glucose, POC 150(H) 70 - 100 mg/dL 06/19/2023 1:21 EDT [facility] HN LAB POC COMMENT (GLUCOSE) Test Performed by Nursing Services 06/19/2023 1:21 EDT [facility] Blood CAPILLARY BLOOD / Unknown 06/19/2023 1:20 EDT 06/19/2023 1:21 EDT Tai Azar MD POINT OF CARE TEST ORDERABLES Performing Organization Address [facility] Co de Phone Number [facility] [address] [place] [address] * (ABNORMAL) POCT GLUCOSE, INTERFACED (06/18/2023 17:20 EDT) Glucose, POC 145(H) 70 - 100 mg/dL 06/18/2023 17:21 EDT [facility] HN LAB POC COMMENT (GLUCOSE) Test Performed by Nursing Services 06/18/2023 17:21 EDT [facility] Blood CAPILLARY BLOOD / Unknown 06/18/2023 17:20 EDT 06/18/2023 17:21 EDT Tai Azar MD POINT OF CARE TEST ORDERABLES Performing Organization Address [facility]/ZIP Co de Phone Number [facility] [address], [place] [phone] * XR FEEDING TUBE PLACEMENT (06/18/2023 15:42 [...] above interpretation and agree with the findings. [id number] Narrative 06/18/2023 16:08 EDT XR FEEDING TUBE [...] the above interpretation andagree with the findings. [id number] Rui Gomez MD IMG DIAGNOSTIC IM AGING ORDERABLES * XR CHEST PORTABLE LINE PLACEMENT (06/18/2023 15:41 EDT) Anatomical Region Laterality Modality Chest Computed Radiogr aphy 06/18/2023 15:4 8 EDT Impressions 06/18/2023 15:48 EDT Right internal jugular temporary pacemaker wire lead in right ventricle. Dense left lower lobe atelectasis. Probable bilateral pleural effusions. [id number] Narrative 06/18/2023 15:48 EDT XR CHEST PORTABLE [...] lower lobe atelectasis. Probable bilateral pleural effusions. [id number] Ángel Bustamante MD IMG DIAGNOSTIC IMAGI NG ORDERABLES * MS INSJ NON-TUNNELED CENTRAL VENOUS CATH AGE 5 YR/>, HC - INSJ NON-TUNNELED CENTRAL VENOUS CATH AGE 5 YR/> (06/18/2023 13:30 EDT) [facility]ative [facility] - 06/18/2023 13:30 EDT [...] to verify the correct patient, procedure, equipment, program support specialist and site/side marked as required. Indications: Pacer [...] Moo Monique MD PROCEDURE/MINOR VI GICAL ORDERABLES [facility] POINT OF CARE * (ABNORMAL) POCT GLUCOSE, INTERFACED (06/18/2023 11:53 EDT) Glucose, POC 127(H) 70 - 100 mg/dL 06/18/2023 11:54 EDT [facility] HN LAB POC COMMENT (GLUCOSE) Test Performed by Nursing Services 06/18/2023 11:54 EDT [facility] Blood CAPILLARY BLOOD / Unknown 06/18/2023 11:53 EDT 06/18/2023 11:54 EDT Reza Brito MD POINT OF CARE TEST O RDERABLES Performing Organization Address [facility]/ZIP Co de Phone Number [facility] [address] [place] [address] * (ABNORMAL) POCT BLOOD GAS, EG6 I-STAT (06/18/2023 9:19 EDT) pH, Venous, i-STAT 7.28(L) 7.31 - 7.41 06/18/2023 9:27 EDT [facility] pCO2, Venous, i-STAT 43 41 - 51 mmHg 06/18/2023 9:27 EDT [facility] pO2, Venous, i-STAT 64(H) 30 - 50 mmHg 06/18/2023 9:27 EDT [facility] TCO2, Venous, i-STAT 22 22 - 28 mmol/L 06/18/2023 9:27 EDT [facility] O2 Saturation, Venous, i-STAT 89(H) 60 - 85 % 06/18/2023 9:27 EDT [facility] Base Excess(+) / Deficit(-), Venous, i-STAT -6(L) -2 - 3 mmol/L 06/18/2023 9:27 EDT [facility] Blood ARTERIAL BLOOD / Unknown 06/18/2023 9:19 EDT 06/18/2023 9:27 EDT Narrative [facility] - 06/18/2023 9:27 EDT Test Performed by Respiratory Tai Azar MD POINT OF CARE TEST ORDERABLES Performing Organization Address City/[facility]/ZIP Co de Phone Number [facility] [address] [place] [address] * CT CHEST WO CONTRAST (06/18/2023 9:07 [...] Correlate with physical exam. Follow-up with [facility] is recommended if these findings are not felt to be acute. I have personally reviewed the images and the above interpretation and agree with the findings. [id number] Narrative 06/18/2023 10:[address] CHEST WO [...] the above interpretation andagree with the findings. [id number] Rui Gomez MD IMG CT ORDERABLES * (ABNORMAL) TROPONIN I (06/18/2023 8:16 EDT) [facility] Troponin I (ng/mL) 0.643(H) <0.034 ng/mL 06/18/2023 8:51 EDT [facility] Blood VENOUS BLOOD / Unknown Venipuncture / Unknown 06/18/2023 8:16 EDT 06/18/2023 8:23 EDT Narrative [facility] - 06/18/2023 8:51 EDT The results of this assay can be falsely lowered due to the consumption of Biotin. Ashlie Valentine MD PhD CHEMISTRY & BLOOD G ORDERABLES [facility] [address] [place] [address] * (ABNORMAL) POCT BLOOD GAS, EG6 I-STAT (06/18/2023 4:39 EDT) [facility] pH, Arterial, i-STAT 7.28(L) 7.35 - 7.45 06/18/2023 4:42 EDT [facility] PCO2, Arterial, i-STAT 44 35 - 45 mmHg 06/18/2023 4:42 EDT [facility] pO2, Arterial, i-STAT 38(L) 80 - 105 mmHg 06/18/2023 4:42 EDT [facility] TCO2, Arterial, i-STAT 22 22 - 26 mmol/L 06/18/2023 4:42 EDT [facility] O2 Saturation, Arterial, i-STAT 66(L) 95 - 98 % 06/18/2023 4:42 EDT [facility] Base Excess(+) / Deficit(-), Arterial, i-STAT -6(L) -2 - 3 mmol/L 06/18/2023 4:42 EDT [facility] Blood ARTERIAL BLOOD / Unknown 06/18/2023 4:39 EDT 06/18/2023 4:42 EDT Narrative [facility] - 06/18/2023 4:42 EDT Test [...] Azar MD POINT OF CARE TEST ORDERABLES [facility] [address] [place] [id number] * (ABNORMAL) DIFFERENTIAL, AUTOMATED MANUAL (06/18/2023 4:32 EDT) % Neutrophils 85.2 Not Indicated % 06/18/2023 5:59 [facility] % Lymphocytes 3.5 Not Indicated % 06/18/2023 5:59 [facility] % Atypical Lymphocytes 0.9 Not Indicated % 06/18/2023 5:59 [facility] % Monocytes 6.1 Not Indicated % 06/18/2023 5:59 [facility] % Metamyelocytes 0.9 Not Indicated % 06/18/2023 5:59 [facility] % Myelocytes 1.7 Not Indicated % 06/18/2023 5:59 [facility] % Promyelocytes 1.7 Not Indicated % 06/18/2023 5:59 [facility] Large Platelets Present K/cmm 5:59 [facility] Absolute Neutrophils 21.52(H) 2.20 - 8.85 K/cmm 06/18/2023 5:59 EDT [facility] Absolute Lymphocytes 0.88(L) 1.09 - 3.30 K/cmm 06/18/2023 5:59 EDT [facility] Absolute Atypical Lymphocytes 0.23 K/cmm 06/18/2023 5:59 EDT [facility] Absolute Monocytes 1.54(H) 0.10 - 0.80 K/cmm 06/18/2023 5:59 EDT [facility] Absolute Metamyelocytes 0.23(H) <=0.00 K/cmm 06/18/2023 5:59 EDT [facility] Absolute Myelocytes 0.43(H) <=0.00 K/cmm 06/18/2023 5:59 EDT [facility] Absolute Promyelocytes 0.43(H) <=0.00 K/cm 06/18/2023 5:59 EDT [facility] Type of Differential: Manual 06/18/2023 5:59 EDT [facility] Blood VENOUS BLOOD / Unknown Venipuncture / Unknown 06/18/2023 4:32 EDT 06/18/2023 4:36 EDT Ayden Jennings HEMATOLOGY & PF4 ORD ERABLES Performing Organization Address City/[facility] Co de Phone Number [facility] [address] [place] [address] * MAGNESIUM (06/18/2023 4:32 EDT) Magnesium 1.9 1.7 - 2.8 mg/dL 06/18/2023 5:08 EDT [facility] Blood VENOUS BLOOD / Unknown Venipuncture / Unknown 06/18/2023 4:32 EDT 06/18/2023 4:36 EDT Reza Brito MD CHEMISTRY & BLOOD GA S ORDERABLES Performing Organization Address City/[facility]/ZIP Co de Phone Number [facility] [address] [place] [address] * (ABNORMAL) PHOSPHORUS (06/18/2023 4:32 EDT) Pathologist [facility] Phosphorus 6.1(H) 2.5 - 4.5 mg/dL 06/18/2023 5:08 EDT [facility] Blood VENOUS BLOOD / Unknown Venipuncture / Unknown 06/18/2023 4:32 EDT 06/18/2023 4:36 EDT Reza Brito MD CHEMISTRY & BLOOD GA S ORDERABLES [facility] [address] [place] [address] * (ABNORMAL) COMPLETE BLOOD COUNT AND DIFFERENTIAL (06/18/2023 4:32 EDT) [facility] WBC 25.26(H) 4.00 - 12.40 K/cmm 06/18/2023 4:50 [facility] RBC 3.33(L) 3.86 - 5.04 M/cmm 06/18/2023 4:50 [facility] Hemoglobin 10.0(L) 11.6 - 15.2 g/dL 06/18/2023 4:50 [facility] HCT 29.0(L) 34.9 - 44.4 % 06/18/2023 4:50 [facility] MCV 87 81 - 98 fL 06/18/2023 4:50 [facility] MCH 30.0 26.7 - 33.3 pg 06/18/2023 4:50 [facility] MCHC 34.5 32.1 - 35.9 g/dL 06/18/2023 4:50 [facility] RDW-CV 16.9(H) <14.7 % 06/18/2023 4:50 [facility] RDW-SD 52.0(H) <50.4 fl 06/18/2023 4:50 [facility] PLT 432(H) 141 - 377 K/cmm 06/18/2023 4:50 T [facility] MPV 9.4(L) 9.5 - 12.7 fL 06/18/2023 4:50 [facility] Blood VENOUS BLOOD / Unknown Venipuncture / Unknown 06/18/2023 4:32 EDT 06/18/2023 4:36 EDT Ayden Jennings PACKAGES & DNA PROBE ORDERABLES [facility] [address] [place] [address] * (ABNORMAL) BASIC METABOLIC PANEL (BMP) (06/18/2023 4:32 EDT) Sodium 134(L) 136 - 145 mmol/L 06/18/2023 5:08 [facility] Potassium 5.1(H) 3.5 - 5.0 mmol/L 06/18/2023 5:08 [facility] Chloride 109 96 - 110 mmol/L 06/18/2023 5:08 [facility] CO2 Total 18(L) 22 - 32 mmol/L 06/18/2023 5:08 [facility] Anion Gap 7 5 - 14 mmol/L 06/18/2023 5:08 [facility] Glucose 126(H) 70 - 99 mg/dl 06/18/2023 5:08 [facility] Calcium 8.5 8.5 - 10.5 mg/dL 06/18/2023 5:08 [facility] BUN 35(H) 10 - 26 mg/dL 06/18/2023 5:08 [facility] Creatinine 0.63 0.52 - 1.04 mg/dL 06/18/2023 5:08 [facility] eGFR 107 >60 mL/min/1.73 m2 06/18/2023 5:08 [facility] Blood VENOUS BLOOD / Unknown Venipuncture / Unknown 06/18/2023 4:32 EDT 06/18/2023 4:36 EDT Titus Kenny MD CHEMISTRY & BLOOD GA S ORDERABLES Performing Organization Address [facility]/ZIP Co de Phone Number [facility] [address] [place] [address] * (ABNORMAL) TRIGLYCERIDE (06/18/2023 4:32 EDT) Triglyceride 335(H) <=150 mg/dL 06/18/2023 5:08 EDT [facility] Comment:Note that therapeuti c goals will differ between patients based on cardiac risk factors and current medical therapy. Blood VENOUS BLOOD / Unknown Venipuncture / Unknown 06/18/2023 4:32 EDT 06/18/2023 4:36 EDT Paulette Hoover MD CHEMISTRY & BLO OD GAS ORDERABLES Performing Organization Address City/[facility]/ZIP Co de Phone Number [facility] [address] [place] [address] * XR CHEST PORTABLE 1 VIEW (06/18/2023 1:23 EDT) Anatomical Region Laterality Modality Computed Radiogr aphy 06/18/2023 9:16 EDT Impressions 06/18/2023 9:16 EDT Interval extubation and removal of NG tube. Transvenous pacemaker wire tip in right ventricular apex. Interval development of left lower lobe atelectasis. Probable developing right lower lobe atelectasis. [id number] Narrative 06/18/2023 9:16 EDT XR CHEST PORTABLE [...] lobeatelectasis. Probable developing right lower lobe atelectasis. [id number] Ashlie Valentine MD PhD IMG DIAGNOSTIC IMAG ING ORDERABLES * (ABNORMAL) POCT BLOOD GAS, EG6 I-STAT (06/18/2023 0:39 EDT) pH, Arterial, i-STAT 7.32(L) 7.35 - 7.45 06/18/2023 0:43 EDT [facility] PCO2, Arterial, i-STAT 39 35 - 45 mmHg 06/18/2023 0:43 EDT [facility] pO2, Arterial, i-STAT 80 80 - 105 mmHg 06/18/2023 0:43 EDT [facility] TCO2, Arterial, i-STAT 21(L) 22 - 26 mmol/L 06/18/2023 0:43 EDT [facility] O2 Saturation, Arterial, i-STAT 95 95 - 98 % 06/18/2023 0:43 EDT [facility] Base Excess(+) / Deficit(-), Arterial, i-STAT -6(L) -2 - 3 mmol/L 06/18/2023 0:43 EDT [facility] Blood ARTERIAL BLOOD / Unknown 06/18/2023 0:39 EDT 06/18/2023 0:43 EDT Narrative [facility] - 06/18/2023 0:43 EDT Test [...] CARE T EST ORDERABLES Performing Organization Address City/[facility] Co de Phone Number [facility] [address] [place] [address] * (ABNORMAL) TROPONIN I (06/18/2023 0:13 EDT) Troponin I (ng/mL) 0.700(H) <0.034 ng/mL 06/18/2023 0:56 EDT [facility] Blood VENOUS BLOOD / Unknown Venipuncture / Unknown 06/18/2023 0:13 EDT 06/18/2023 0:17 EDT Narrative [facility] - 06/18/2023 0:56 EDT The results of this assay can be falsely lowered due to the consumption of Biotin. Ashlie Valentine MD PhD CHEMISTRY & BLOOD G ORDERABLES Performing Organization Address [facility]/ZIP Co de Phone Number [facility] [address] [place] [address] * EKG 12-LEAD (06/18/2023 0:08 EDT) 06/18/2023 0:08 EDT Narrative [facility] - 06/27/2023 16:04 EDT ? [facility] ? Test Date: ?2023-06-18 Pat Name: ? DELLA BROWNING ? Department: ?? Vanessa 3 ? Room: ? M316 Gender: ? Female ? 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 [id number] : ?1970 ? Requested By: AKILA DAILEY Order Number: [id number] ? Reading MD: ?? BETO TY MD ? Measurements Intervals ?[place] ? Rate: ? 86 ? P: ?45 MS: ? 185 ?QRS: ?28 QRSD: ? 83 [...] Note Beto [place] MD - 06/27/2023 [facility] Test Date: 2023-06-18 Pat Name: DELLA BROWNING Department: [place] [address] Room: [facility] Gender: Female Automobile Mechanic Assistant: [id number] : 1970 Requested By: AKILA DAILEY Order Number: [id number] Alicia MD: BETO CORONA Measurements Intervals [place] Rate: 86 P: 45 MS: 185 QRS: 28 QRSD: 83 T: 31 [...] Valentine MD PhD CARDIAC ECG ORDERAB LES [facility] * (ABNORMAL) POCT GLUCOSE, INTERFACED (06/17/2023 23:46 EDT) Glucose, POC 156(H) 70 - 100 mg/dL 06/17/2023 23:47 EDT [facility] HN LAB POC COMMENT (GLUCOSE) Test Performed by Nursing Services 06/17/2023 23:47 EDT [facility] Blood CAPILLARY BLOOD / Unknown 06/17/2023 23:46 EDT 06/17/2023 23:47 EDT Reza Brito MD POINT OF CARE TEST O RDERABLES Performing Organization Address City/[facility]/ZIP Co de Phone Number [facility] [address] [place] [address] * CALCIUM, IONIZED (06/17/2023 23:43 EDT) Pathologist [facility] Calcium, Ionized 1.18 1.14 - 1.35 mmol/L 06/18/2023 0:00 EDT [facility] Blood VENOUS BLOOD / Unknown Venipuncture / Unknown 06/17/2023 23:43 EDT 06/17/2023 23:46 EDT Ashlie Valentine MD PhD CHEMISTRY & BLOOD G ORDERABLES Performing Organization Address City/[facility]/ZIP Co de Phone Number [facility] [address] [place] [address] * (ABNORMAL) BASIC METABOLIC PANEL (BMP) (06/17/2023 23:43 EDT) Sodium 134(L) 136 - 145 mmol/L 06/18/2023 0:23 EDT [facility] Potassium 4.9 3.5 - 5.0 mmol/L 06/18/2023 0:23 EDT [facility] Chloride 109 96 - 110 mmol/L 06/18/2023 0:23 EDT [facility] CO2 Total 16(L) 22 - 32 mmol/L 06/18/2023 0:23 [facility] Anion Gap 9 5 - 14 mmol/L 06/18/2023 0:23 [facility] Glucose 153(H) 70 - 99 mg/dl 06/18/2023 0:23 [facility] Calcium 8.4(L) 8.5 - 10.5 mg/dL 06/18/2023 0:23 [facility] BUN 37(H) 10 - 26 mg/dL 06/18/2023 0:23 [facility] Creatinine 0.61 0.52 - 1.04 mg/dL 06/18/2023 0:23 [facility] eGFR 108 >60 mL/min/1.73 m2 06/18/2023 0:23 [facility] Blood VENOUS BLOOD / Unknown Venipuncture / Unknown 06/17/2023 23:43 EDT 06/17/2023 23:46 EDT Titus Kenny MD CHEMISTRY & BLOOD GA S ORDERABLES Performing Organization Address City/State/[facility] Co de Phone Number [facility] [address], [place] [id number] * (ABNORMAL) COMPLETE BLOOD COUNT (06/17/2023 17:34 EDT) WBC 20.00(H) 4.00 - 12.40 K/cmm 06/17/2023 17:57 [facility] RBC 2.89(L) 3.86 - 5.04 M/cmm 06/17/2023 17:57 [facility] Hemoglobin 8.5(L) 11.6 - 15.2 g/dL 06/17/2023 17:57 [facility] HCT 25.1(L) 34.9 - 44.4 % 06/17/2023 17:57 [facility] MCV 87 81 - 98 fL 06/17/2023 17:57 [facility] MCH 29.4 26.7 - 33.3 pg 06/17/2023 17:57 EDT [facility] MCHC 33.9 32.1 - 35.9 g/dL 06/17/2023 17:57 T [facility] RDW-CV 16.8(H) <14.7 % 06/17/2023 17:57 [facility] RDW-SD 53.1(H) <50.4 fl 06/17/2023 17:57 T [facility] PLT 332 141 - 377 K/cmm 06/17/2023 17:57 [facility] MPV 9.7 9.5 - 12.7 fL 06/17/2023 17:57 [facility] Blood VENOUS BLOOD / Unknown Venipuncture / Unknown 06/17/2023 17:34 EDT 06/17/2023 17:38 EDT Ayden Jennings HEMATOLOGY & PF4 ORD ERABLES [facility] [address], [place] [id number] * (ABNORMAL) BASIC METABOLIC PANEL (BMP) (06/17/2023 17:34 EDT) Sodium 131(L) 136 - 145 mmol/L 06/17/2023 17:53 [facility] Potassium 4.6 3.5 - 5.0 mmol/L 06/17/2023 17:53 [facility] Chloride 109 96 - 110 mmol/L 06/17/2023 17:53 [facility] CO2 Total 17(L) 22 - 32 mmol/L 06/17/2023 17:53 [facility] Anion Gap 5 5 - 14 mmol/L 06/17/2023 17:53 [facility] Glucose 141(H) 70 - 99 mg/dl 06/17/2023 17:53 [facility] Calcium 8.0(L) 8.5 - 10.5 mg/dL 06/17/2023 17:53 [facility] BUN 40(H) 10 - 26 mg/dL 06/17/2023 17:53 EDT [facility] Creatinine 0.61 0.52 - 1.04 mg/dL 06/17/2023 17:53 EDT [facility] eGFR 108 >60 mL/min/1.73 m2 06/17/2023 17:53 EDT [facility] Blood VENOUS BLOOD / Unknown Venipuncture / Unknown 06/17/2023 17:34 EDT 06/17/2023 17:38 EDT Titus Kenny MD CHEMISTRY & BLOOD GA S ORDERABLES Performing Organization Address [facility] Co de Phone Number [facility] [address] [place] [address] * (ABNORMAL) POCT GLUCOSE, INTERFACED (06/17/2023 17:33 EDT) Glucose, POC 139(H) 70 - 100 mg/dL 06/17/2023 17:35 EDT [facility] HN LAB POC COMMENT (GLUCOSE) Test Performed by Nursing Services 06/17/2023 17:35 EDT [facility] Blood CAPILLARY BLOOD / Unknown 06/17/2023 17:33 EDT 06/17/2023 17:35 EDT Reza Brito MD POINT OF CARE TEST O RDERABLES Performing Organization Address City/[facility]/ZIP Co de Phone Number [facility] [address] [place] [address] * ECG REPORT - SCANNED (06/17/2023 12:52 EDT) 06/17/2023 12:5 2 EDT Scan 2 Process Designer PROCEDURE/MINOR VI GICAL ORDERABLES * (ABNORMAL) POCT GLUCOSE, INTERFACED (06/17/2023 11:31 EDT) Glucose, POC 163(H) 70 - 100 mg/dL 06/17/2023 11:32 EDT [facility] HN LAB POC COMMENT (GLUCOSE) Test Performed by Nursing Services 06/17/2023 11:32 [facility] Blood CAPILLARY BLOOD / Unknown 06/17/2023 11:31 EDT 06/17/2023 11:32 EDT Reza Brito MD POINT OF CARE TEST O RDERABLES [facility] [address] [place] [address] * (ABNORMAL) BASIC METABOLIC PANEL (BMP) (06/17/2023 11:31 EDT) [facility] Sodium 132(L) 136 - 145 mmol/L 06/17/2023 12:13 [facility] Potassium 4.7 3.5 - 5.0 mmol/L 06/17/2023 12:13 [facility] Chloride 109 96 - 110 mmol/L 06/17/2023 12:13 [facility] CO2 Total 17(L) 22 - 32 mmol/L 06/17/2023 12:13 [facility] Anion Gap 6 5 - 14 mmol/L 06/17/2023 12:13 [facility] Glucose 159(H) 70 - 99 mg/dl 06/17/2023 12:13 [facility] Calcium 8.6 8.5 - 10.5 mg/dL 06/17/2023 12:13 [facility] BUN 40(H) 10 - 26 mg/dL 06/17/2023 12:13 [facility] Creatinine 0.69 0.52 - 1.04 mg/dL 06/17/2023 12:13 [facility] eGFR 104 >60 mL/min/1.73 m2 06/17/2023 12:13 [facility] Blood VENOUS BLOOD / Unknown Venipuncture / Unknown 06/17/2023 11:31 EDT 06/17/2023 11:40 EDT Titus Kenny MD CHEMISTRY & BLOOD GA S ORDERABLES Performing Organization Address [facility]/ZIP Co de Phone Number [facility] [address] [place] [address] * TRANSFUSE RED BLOOD CELLS (06/17/2023 10:53 EDT) Blood Ashlie Valentine MD PhD NURSING TREATMENT - BLOOD ADMINISTRATION * TRANSFUSE RED BLOOD CELLS (06/17/2023 10:53 EDT) Blood Ashlie Valentine MD PhD NURSING TREATMENT - BLOOD ADMINISTRATION * CALCIUM, IONIZED (06/17/2023 8:06 EDT) Calcium, Ionized 1.19 1.14 - 1.35 mmol/L 06/17/2023 8:23 EDT [facility] Comment: Tube not filled to capacity. Ionized calcium results may be falsely decreased. Interpret results with caution. Blood VENOUS BLOOD / Unknown Venipuncture / Unknown 06/17/2023 8:06 EDT 06/17/2023 8:11 EDT Ángel Bustamante MD CHEMISTRY & BLOOD GA S ORDERABLES Performing Organization Address [facility]/ZIP Co de Phone Number [facility] [address] [place] [address] * PREPARE RED BLOOD CELLS (06/17/2023 7:40 EDT) Product Code [id number] [facility] Donor Number [id number] U [facility] Unit [facility] Unit Rh POS [facility] Unit Status RE^Released From Crossmatch [facility] Product Expiration Date [id number] [facility] Unit Blood Type Code 5100 [facility] Volume 289 [facility]oding System [id number] [facility] [facility] Blood 06/17/2023 7:40 EDT Ashlie Valentine MD PhD BLOOD BANK ORDERABL ES Performing Organization Address [facility]/ZIP Co de Phone Number [facility] [address] [place] [address] * (ABNORMAL) POCT GLUCOSE, INTERFACED (06/17/2023 6:09 EDT) Glucose, POC 150(H) 70 - 100 mg/dL 06/17/2023 6:10 EDT [facility] HN LAB POC COMMENT (GLUCOSE) Test Performed by Nursing Services 06/17/2023 6:10 EDT [facility] Blood CAPILLARY BLOOD / Unknown 06/17/2023 6:09 EDT 06/17/2023 6:10 EDT Reza Brito MD POINT OF CARE TEST O RDERABLES Performing Organization Address [facility] Co de Phone Number [facility] [address] [place] [address] * (ABNORMAL) TRIGLYCERIDE (06/17/2023 4:06 EDT) Triglyceride 400(H) <=150 mg/dL 06/17/2023 7:14 EDT [facility] Comment:Note that therapeuti c goals will differ between patients based on cardiac risk factors and current medical therapy. Blood VENOUS BLOOD / Unknown Venipuncture / Unknown 06/17/2023 4:06 EDT 06/17/2023 4:11 EDT Joan Menon MD CHEMISTRY & BLOOD GA S ORDERABLES Performing Organization Address [facility]/ZIP Co de Phone Number [facility] [address] [place] [address] * (ABNORMAL) DIFFERENTIAL, AUTOMATED MANUAL (06/17/2023 4:06 EDT) % Neutrophils 77.2 % 06/17/2023 5:32 [facility] % Banded Neutrophils 1.7 % 06/17/2023 5:32 [facility] % Lymphocytes 8.8 % 06/17/2023 5:32 [facility] % Monocytes 2.6 % 06/17/2023 5:32 [facility] % Eosinophils 0.9 % 06/17/2023 5:32 [facility] % Metamyelocytes 6.1 % 06/17/19 5:32 [facility] % Myelocytes 1.8 % 06/17/2023 5:32 [facility] % Promyelocytes 0.9 % 5:32 [facility] Target Cells 2+ 06/17/2023 5:32 [facility] Vacuolated Neutrophils Present 06/17/2023 5:32 [facility] Absolute Neutrophils 15.48(H) 2.20 - 8.85 K/cmm 06/17/2023 5:32 [facility] Absolute Bands 0.34 K/cmm 06/17/2023 5:32 [facility] Absolute Lymphocytes 1.76 1.09 - 3.30 K/cmm 06/17/2023 5:32 [facility] Absolute Monocytes 0.52 0.10 - 0.80 K/cmm 06/17/2023 5:32 [facility] Absolute Eosinophils 0.18 0.03 - 0.61 K/cmm 06/17/2023 5:32 [facility] Absolute Metamyelocytes 1.22(H) <=0.00 K/cmm 06/17/2023 5:32 [facility] Absolute Myelocytes 0.36(H) <=0.00 K/cmm 06/17/2023 5:32 [facility] Absolute Promyelocytes 0.18(H) <=0.00 K/cmm 06/17/2023 5:32 EDT [facility] Type of Differential: Manual 06/17/2023 5:32 EDT [facility] Blood VENOUS BLOOD / Unknown Venipuncture / Unknown 06/17/2023 4:06 EDT 06/17/2023 4:11 EDT Narrative [facility] - 06/17/2023 5:32 EDT Differential performed on albumin made slide. Ayden Jennings HEMATOLOGY & PF4 ORD ERABLES Performing Organization Address [facility]/State/ZIP Co de Phone Number [facility] [address] [place] [address] * (ABNORMAL) POCT BLOOD GAS, EG6 I-STAT (06/17/2023 4:06 EDT) pH, Venous, i-STAT 7.30(L) 7.31 - 7.41 06/17/2023 4:08 EDT [facility] pCO2, Venous, i-STAT 40(L) 41 - 51 mmHg 06/17/2023 4:08 EDT [facility] pO2, Venous, i-STAT 41 30 - 50 mmHg 06/17/2023 4:08 EDT [facility] TCO2, Venous, i-STAT 21(L) 22 - 28 mmol/L 06/17/2023 4:08 EDT [facility] O2 Saturation, Venous, i-STAT 71 60 - 85 % 06/17/2023 4:08 EDT [facility] Base Excess(+) / Deficit(-), Venous, i-STAT -6(L) -2 - 3 mmol/L 06/17/2023 4:08 EDT [facility] Blood VENOUS BLOOD / Unknown 06/17/2023 4:06 EDT 06/17/2023 4:08 EDT Narrative [facility] - 06/17/2023 4:08 EDT Test Performed by Respiratory Paulette Hoover MD POINT OF CARE T EST ORDERABLES [facility] [address], [place] [id number] * MAGNESIUM (06/17/2023 4:06 EDT) Magnesium 1.9 1.7 - 2.8 mg/dL 06/17/2023 4:42 EDT [facility] Blood VENOUS BLOOD / Unknown Venipuncture / Unknown 06/17/2023 4:06 EDT 06/17/2023 4:11 EDT Reza Brito MD CHEMISTRY & BLOOD GA S ORDERABLES Performing Organization Address City/[facility]/ZIP Co de Phone Number [facility] [address], [place] [id number] * (ABNORMAL) PHOSPHORUS (06/17/2023 4:06 EDT) Pathologist [facility] Phosphorus 6.4(H) 2.5 - 4.5 mg/dL 06/17/2023 4:42 EDT [facility] Blood VENOUS BLOOD / Unknown Venipuncture / Unknown 06/17/2023 4:06 EDT 06/17/2023 4:11 EDT Reza Brito MD CHEMISTRY & BLOOD GA S ORDERABLES Performing Organization Address [facility] Co de Phone Number [facility] [address] [place] [address] * (ABNORMAL) COMPLETE BLOOD COUNT AND DIFFERENTIAL (06/17/2023 4:06 EDT) WBC 20.05(H) 4.00 - 12.40 K/cmm 06/17/2023 4:19 EDT [facility] RBC 2.47(L) 3.86 - 5.04 M/cmm 06/17/2023 4:19 EDT [facility] Hemoglobin 7.5(L) 11.6 - 15.2 g/dL 06/17/2023 4:19 EDT [facility] HCT 21.1(L) 34.9 - 44.4 % 06/17/2023 4:19 [facility] MCV 85 81 - 98 fL 06/17/2023 4:19 [facility] MCH 30.4 26.7 - 33.3 pg 06/17/2023 4:19 [facility] MCHC 35.5 32.1 - 35.9 g/dL 06/17/2023 4:19 [facility] RDW-CV 15.8(H) <14.7 % 06/17/2023 4:19 [facility] RDW-SD 49.0 <50.4 fl 06/17/2023 4:19 [facility] PLT 349 141 - 377 K/cmm 06/17/2023 4:19 [facility] MPV 9.7 9.5 - 12.7 fL 06/17/2023 4:19 [facility] Blood VENOUS BLOOD / Unknown Venipuncture / Unknown 06/17/2023 4:06 EDT 06/17/2023 4:11 EDT Ayden Jennings PACKAGES & DNA PROBE ORDERABLES [facility] [address] [place] [address] * (ABNORMAL) BASIC METABOLIC PANEL (BMP) (06/17/2023 4:06 EDT) Sodium 129(L) 136 - 145 mmol/L 06/17/2023 4:42 T [facility] Potassium 4.6 3.5 - 5.0 mmol/L 06/17/2023 4:42 [facility] Chloride 105 96 - 110 mmol/L 06/17/2023 4:42 [facility] CO2 Total 18(L) 22 - 32 mmol/L 06/17/2023 4:42 [facility] Anion Gap 6 5 - 14 mmol/L 06/17/2023 4:42 [facility] Glucose 148(H) 70 - 99 mg/dl 06/17/2023 4:42 EDT [facility] Calcium 8.7 8.5 - 10.5 mg/dL 06/17/2023 4:42 T [facility] BUN 41(H) 10 - 26 mg/dL 06/17/2023 4:42 EDT [facility] Creatinine 0.85 0.52 - 1.04 mg/dL 06/17/2023 4:42 EDT [facility] eGFR 82 >60 mL/min/1.73 m2 06/17/2023 4:42 T [facility] Blood VENOUS BLOOD / Unknown Venipuncture / Unknown 06/17/2023 4:06 EDT 06/17/2023 4:11 EDT Titus Kenny MD CHEMISTRY & BLOOD GA S ORDERABLES Performing Organization Address City/State/[facility] Co de Phone Number [facility] [address], [place] [address] * (ABNORMAL) BASIC METABOLIC PANEL (BMP) (06/16/2023 23:51 EDT) Sodium 128(L) 136 - 145 mmol/L 06/17/2023 0:13 [facility] Potassium 4.7 3.5 - 5.0 mmol/L 06/17/2023 0:13 [facility] Chloride 105 96 - 110 mmol/L 06/17/2023 0:13 [facility] CO2 Total 17(L) 22 - 32 mmol/L 06/17/2023 0:13 [facility] Anion Gap 6 5 - 14 mmol/L 06/17/2023 0:13 [facility] Glucose 135(H) 70 - 99 mg/dl 06/17/2023 0:13 [facility] Calcium 9.0 8.5 - 10.5 mg/dL 06/17/2023 0:13 [facility] BUN 41(H) 10 - 26 mg/dL 06/17/2023 0:13 EDT [facility] Creatinine 0.87 0.52 - 1.04 mg/dL 06/17/2023 0:13 EDT [facility] eGFR 80 >60 mL/min/1.73 m2 06/17/2023 0:13 EDT [facility] Blood VENOUS BLOOD / Unknown Venipuncture / Unknown 06/16/2023 23:51 EDT 06/17/2023 0:02 EDT Titus Kenny MD CHEMISTRY & BLOOD GA S ORDERABLES Performing Organization Address [facility] Co de Phone Number [facility] [address] [place] [address] * (ABNORMAL) POCT GLUCOSE, INTERFACED (06/16/2023 23:50 EDT) Glucose, POC 139(H) 70 - 100 mg/dL 06/16/2023 23:52 EDT [facility] HN LAB POC COMMENT (GLUCOSE) Test Performed by Nursing Services 06/16/2023 23:52 EDT [facility] Blood CAPILLARY BLOOD / Unknown 06/16/2023 23:50 EDT 06/16/2023 23:52 EDT Reza Brito MD POINT OF CARE TEST O RDERABLES Performing Organization Address City/[facility] Co de Phone Number [facility] [address] [place] [address] * (ABNORMAL) CALCIUM, IONIZED (06/16/2023 21:26 EDT) Calcium, Ionized 1.13(L) 1.14 - 1.35 mmol/L 06/16/2023 21:37 EDT [facility] Comment:Tube not filled to c apacity. Ionized calcium results may be falsely decreased. Interpret results with caution. Blood VENOUS BLOOD / Unknown Venipuncture / Unknown 06/16/2023 21:26 EDT 06/16/2023 21:30 EDT Narrative [facility] - 06/16/2023 21:37 EDT Reza Brito MD CHEMISTRY & BLOOD GA S ORDERABLES [facility] [address] [place] [address] * XR CHEST PORTABLE LINE PLACEMENT (06/16/2023 19:30 EDT) Anatomical Region Laterality Modality Chest Computed Radiogr aphy 06/17/2023 9:39 EDT Impressions 06/17/2023 9:39 EDT Slight retraction of pacemaker lead tip, now projecting just beyond tricuspid valve within the right ventricle. ET tube and NG tube as seen previously. Dense left lower lobe atelectasis and probable subsegmental atelectasis at the right lung base. [id number] Narrative 06/17/2023 9:39 EDT XR CHEST PORTABLE [...] probable subsegmental atelectasis atthe right lung base. [id number] Reza Brito MD IMG DIAGNOSTIC IMAGI NG ORDERABLES * (ABNORMAL) POCT GLUCOSE, INTERFACED (06/16/2023 18:08 EDT) Glucose, POC 109(H) 70 - 100 mg/dL 06/16/2023 18:09 EDT [facility] HN LAB POC COMMENT (GLUCOSE) Test Performed by Nursing Services 06/16/2023 18:09 EDT [facility] Blood CAPILLARY BLOOD / Unknown 06/16/2023 18:08 EDT 06/16/2023 18:09 EDT Reza Brito MD POINT OF CARE TEST O RDERABLES [facility] [address] [place] [address] * (ABNORMAL) PHOSPHORUS (06/16/2023 18:06 EDT) Phosphorus 7.5(H) 2.5 - 4.5 mg/dL 06/16/2023 18:29 EDT [facility] Blood VENOUS BLOOD / Unknown Venipuncture / Unknown 06/16/2023 18:06 EDT 06/16/2023 18:12 EDT Reza Brito MD CHEMISTRY & BLOOD GA S ORDERABLES Performing Organization Address City/[facility]/ZIP Co de Phone Number [facility] [address] [place] [address] * (ABNORMAL) BASIC METABOLIC PANEL (BMP) (06/16/2023 18:06 EDT) Sodium 129(L) 136 - 145 mmol/L 06/16/2023 18:29 EDT [facility] Potassium 4.8 3.5 - 5.0 mmol/L 06/16/2023 18:29 EDT [facility] Chloride 105 96 - 110 mmol/L 06/16/2023 18:29 T [facility] CO2 Total 17(L) 22 - 32 mmol/L 06/16/2023 18:29 [facility] Anion Gap 7 5 - 14 mmol/L 06/16/2023 18:29 [facility] Glucose 104(H) 70 - 99 mg/dl 06/16/2023 18:29 T [facility] Calcium 8.1(L) 8.5 - 10.5 mg/dL 06/16/2023 18:29 [facility] BUN 41(H) 10 - 26 mg/dL 06/16/2023 18:29 [facility] Creatinine 0.97 0.52 - 1.04 mg/dL 06/16/2023 18:29 [facility] eGFR 70 >60 mL/min/1.73 m2 06/16/2023 18:29 [facility] Blood VENOUS BLOOD / Unknown Venipuncture / Unknown 06/16/2023 18:06 EDT 06/16/2023 18:12 EDT Titus Kenny MD CHEMISTRY & BLOOD FL S ORDERABLES Performing Organization Address City/[facility]/ZIP Co de Phone Number [facility] [address] [place] [address] * BACTERIAL CULTURE, BLOOD (06/16/2023 12:56 EDT) Organism ID No Growth at 5 days 06/21/2023 13:15 EDT [facility] Blood VENOUS BLOOD / Unknown Venipuncture / Unknown 06/16/2023 12:56 EDT 06/16/2023 13:13 EDT Reza Brito MD MICROBIOLOGY - GENER AL ORDERABLES Performing Organization Address City/[facility]/ZIP Co de Phone Number [facility] [address] [place] [address] * BACTERIAL CULTURE, BLOOD (06/16/2023 12:46 EDT) Organism ID No Growth at 5 days 06/21/2023 13:15 EDT [facility] Blood VENOUS BLOOD / Unknown Venipuncture / Unknown 06/16/2023 12:46 EDT 06/16/2023 13:13 EDT Reza Brito MD MICROBIOLOGY - GENER AL ORDERABLES Performing Organization Address [facility]/ZIP Co de Phone Number [facility] [address] [place] [address] * (ABNORMAL) POCT GLUCOSE, INTERFACED (06/16/2023 11:36 EDT) Pathologist [facility] Glucose, POC 200(H) 70 - 100 mg/dL 06/16/2023 11:43 EDT [facility] HN LAB POC COMMENT (GLUCOSE) Test Performed by Nursing Services 06/16/2023 11:43 EDT [facility] Blood CAPILLARY BLOOD / Unknown 06/16/2023 11:36 EDT 06/16/2023 11:43 EDT Paulette Hoover MD POINT OF CARE T EST ORDERABLES Performing Organization Address City/[facility]/ZIP Co de Phone Number [facility] [address] [place] [address] * (ABNORMAL) BASIC METABOLIC PANEL (BMP) (06/16/2023 11:33 EDT) Pathologist [facility] Sodium 128(L) 136 - 145 mmol/L 06/16/2023 12:10 [facility] Potassium 4.7 3.5 - 5.0 mmol/L 06/16/2023 12:10 [facility] Chloride 103 96 - 110 mmol/L 06/16/2023 12:10 [facility] CO2 Total 14(L) 22 - 32 mmol/L 06/16/2023 12:10 [facility] Anion Gap 11 5 - 14 mmol/L 06/16/2023 12:10 [facility] Glucose 174(H) 70 - 99 mg/dl 06/16/2023 12:10 [facility] Calcium 8.5 8.5 - 10.5 mg/dL 06/16/2023 12:10 [facility] BUN 39(H) 10 - 26 mg/dL 06/16/2023 12:10 [facility] Creatinine 1.11(H) 0.52 - 1.04 mg/dL 06/16/2023 12:10 [facility] eGFR 60(L) >60 mL/min/1.73 m2 06/16/2023 12:10 [facility] Blood VENOUS BLOOD / Unknown Venipuncture / Unknown 06/16/2023 11:33 EDT 06/16/2023 11:42 EDT Titus Kenny MD CHEMISTRY & BLOOD GA S ORDERABLES [facility] [address] [place] [address] * (ABNORMAL) TROPONIN I (06/16/2023 11:33 EDT) Pathologist [facility] Troponin I (ng/mL) 1.370(H) <0.034 ng/mL 06/16/2023 12:21 T [facility] Blood VENOUS BLOOD / Unknown Venipuncture / Unknown 06/16/2023 11:33 EDT 06/16/2023 11:42 EDT Narrative [facility] - 06/16/2023 12:21 EDT The results of this assay can be falsely lowered due to the consumption of Biotin. Ayden Jennings CHEMISTRY & BLOOD GA S ORDERABLES Performing Organization Address [facility] Co de Phone Number [facility] [address] [place] [address] * (ABNORMAL) POCT BLOOD GAS, EG6 I-STAT (06/16/2023 10:58 EDT) pH, Venous, i-STAT 7.25(L) 7.31 - 7.41 06/16/2023 11:02 EDT [facility] pCO2, Venous, i-STAT 36(L) 41 - 51 mmHg 06/16/2023 11:02 EDT [facility] pO2, Venous, i-STAT 50 30 - 50 mmHg 06/16/2023 11:02 EDT [facility] TCO2, Venous, i-STAT 17(L) 22 - 28 mmol/L 06/16/2023 11:02 EDT [facility] O2 Saturation, Venous, i-STAT 79 60 - 85 % 06/16/2023 11:02 EDT [facility] Base Excess(+) / Deficit(-), Venous, i-STAT -11(L) -2 - 3 mmol/L 06/16/2023 11:02 [facility] Blood VENOUS BLOOD / Unknown 06/16/2023 10:58 EDT 06/16/2023 11:02 EDT Narrative [facility] - 06/16/2023 11:02 EDT Test Performed by Respiratory Paulette Hoover MD POINT OF CARE T EST ORDERABLES Performing Organization Address [facility]/ZIP Co de Phone Number [facility] [address] [place] [address] * (ABNORMAL) POCT GLUCOSE, INTERFACED (06/16/2023 10:57 EDT) Glucose, POC 199(H) 70 - 100 mg/dL 06/16/2023 11:35 EDT [facility] HN LAB POC COMMENT (GLUCOSE) Test Performed by Nursing Services 06/16/2023 11:35 EDT [facility] Blood CAPILLARY BLOOD / Unknown 06/16/2023 10:57 EDT 06/16/2023 11:35 EDT Reza Brito MD POINT OF CARE TEST O RDERABLES [facility] [address] [place] [address] * XR CHEST PORTABLE LINE PLACEMENT (06/16/2023 10:55 EDT) Anatomical Region Laterality Modality Chest Computed Radiogr aphy 06/16/2023 11:0 0 EDT Impressions 06/16/2023 11:00 EDT Lines and tubes as described. Improving left lower lobe atelectasis. [id number] Narrative 06/16/2023 11:00 EDT XR CHEST PORTABLE [...] as described. Improving left lower lobe atelectasis. [id number] Reza Brito MD IMG DIAGNOSTIC IMAGI NG ORDERABLES * XR CHEST PORTABLE LINE PLACEMENT (06/16/2023 8:57 EDT) Anatomical Region Laterality Modality Chest Computed Radiogr aphy 06/16/2023 10:2 1 EDT Impressions 06/16/2023 10:21 EDT Improving left lower lobe atelectasis. Endotracheal tube in the midthoracic trachea. Apparent kink of the proximal portion of the subclavian catheter which is likely projectional. [id number] Narrative 06/16/2023 10:21 EDT XR CHEST PORTABLE [...] of the subclavian catheter which islikely projectional. [id number] Reza Brito MD IMG DIAGNOSTIC IMAGI NG ORDERABLES * HOLD SST (06/16/2023 8:20 EDT) Hold Hold 06/16/2023 9:31 EDT [facility] Blood VENOUS BLOOD / Unknown 06/16/2023 8:20 EDT 06/16/2023 8:20 EDT Paulette Hoover MD LAB INFO SERVIC E AND SUPPORT & PHONE RESULT Performing Organization Address City/[facility]/ZIP Co de Phone Number [facility] [address] [place] [address] * HOLD BLUE TOP (06/16/2023 8:20 EDT) Hold Hold 06/16/2023 9:31 EDT [facility] Blood VENOUS BLOOD / Unknown 06/16/2023 8:20 EDT 06/16/2023 8:20 EDT Paulette Hoover MD LAB INFO SERVIC E AND SUPPORT & PHONE RESULT Performing Organization Address City/[facility]/ZIP Co de Phone Number [facility] [address] [place] [address] * LYME AB (06/16/2023 8:20 EDT) [facility] Lyme Ab Negative Negative 06/17/2023 11:26 EDT [facility] Blood VENOUS BLOOD / Unknown 06/16/2023 8:20 EDT 06/16/2023 8:20 EDT Reza Brito MD IMMUNOLOGY AND SEROL OGY ORDERABLES Performing Organization Address [facility] Co de Phone Number [facility] [address] [place] [address] * (ABNORMAL) POCT BLOOD GAS, EG6 I-STAT (06/16/2023 8:16 EDT) pH, Venous, i-STAT 7.17(L) 7.31 - 7.41 06/16/2023 8:19 EDT [facility] pCO2, Venous, i-STAT 55(H) 41 - 51 mmHg 06/16/2023 8:19 EDT [facility] pO2, Venous, i-STAT 35 30 - 50 mmHg 06/16/2023 8:19 EDT [facility] TCO2, Venous, i-STAT 22 22 - 28 mmol/L 06/16/2023 8:19 EDT [facility] O2 Saturation, Venous, i-STAT 52(L) 60 - 85 % 06/16/2023 8:19 EDT [facility] Base Excess(+) / Deficit(-), Venous, i-STAT -9(L) -2 - 3 mmol/L 06/16/2023 8:19 EDT [facility] Blood VENOUS BLOOD / Unknown 06/16/2023 8:16 EDT 06/16/2023 8:19 EDT Narrative [facility] - 06/16/2023 8:19 EDT Test Performed by Respiratory Paulette Hoover MD POINT OF CARE T EST ORDERABLES Performing Organization Address [facility]/ZIP Co de Phone Number [facility] [address] [place] [address] * SLIDE REQUEST (06/16/2023 8:05 EDT) Pathologist [facility] Note A smear is filed in the Hematology lab. 06/16/2023 9:28 [facility] Blood VENOUS BLOOD / Unknown Venipuncture / Unknown 06/16/2023 8:05 EDT 06/16/2023 8:19 EDT Reza Brito MD HEMATOLOGY & PF4 ORD ERABLES [facility] [address] [place] [address] * (ABNORMAL) COMPLETE BLOOD COUNT (06/16/2023 8:05 EDT) [facility] WBC 35.99(H) 4.00 - 12.40 K/cmm 06/16/2023 8:25 [facility] RBC 3.11(L) 3.86 - 5.04 M/cmm 06/16/2023 8:25 [facility] Hemoglobin 9.4(L) 11.6 - 15.2 g/dL 06/16/2023 8:25 [facility] HCT 27.4(L) 34.9 - 44.4 % 06/16/2023 8:25 [facility] MCV 88 81 - 98 fL 06/16/2023 8:25 [facility] MCH 30.2 26.7 - 33.3 pg 06/16/2023 8:25 [facility] MCHC 34.3 32.1 - 35.9 g/dL 06/16/2023 8:25 [facility] RDW-CV 16.4(H) <14.7 % 06/16/2023 8:25 [facility] RDW-SD 53.1(H) <50.4 fl 06/16/2023 8:25 [facility] SERVICES PLT 370 141 - 377 K/cmm 06/16/2023 8:25 [facility] MPV 10.0 9.5 - 12.7 fL 06/16/2023 8:25 EDT [facility] Blood VENOUS BLOOD / Unknown Venipuncture / Unknown 06/16/2023 8:05 EDT 06/16/2023 8:19 EDT Reza Brito MD HEMATOLOGY & PF4 ORD ERABLES Performing Organization Address City/[facility]/ZIP Co de Phone Number [facility] [address] [place] [address] * (ABNORMAL) PHOSPHORUS (06/16/2023 8:05 EDT) Phosphorus 8.0(H) 2.5 - 4.5 mg/dL 06/16/2023 8:39 EDT [facility] Blood VENOUS BLOOD / Unknown Venipuncture / Unknown 06/16/2023 8:05 EDT 06/16/2023 8:19 EDT Reza Brito MD CHEMISTRY & BLOOD GA S ORDERABLES Performing Organization Address [facility] Co de Phone Number [facility] [address] [place] [address] * CALCIUM, IONIZED (06/16/2023 8:05 EDT) Calcium, Ionized 1.24 1.14 - 1.35 mmol/L 06/16/2023 8:32 EDT [facility] Blood VENOUS BLOOD / Unknown Venipuncture / Unknown 06/16/2023 8:05 EDT 06/16/2023 8:19 EDT Reza Brito MD CHEMISTRY & BLOOD GA S ORDERABLES Performing Organization Address City/[facility]/ZIP Co de Phone Number [facility] [address] [place] [address] * LACTIC ACID (06/16/2023 8:05 EDT) Lactic Acid 1.9 <=2.0 mmol/L 06/16/2023 8:39 EDT [facility] Blood VENOUS BLOOD / Unknown Venipuncture / Unknown 06/16/2023 8:05 EDT 06/16/2023 8:19 EDT Reza Brito MD CHEMISTRY & BLOOD GA S ORDERABLES [facility] [address] [place] [address] * (ABNORMAL) BASIC METABOLIC PANEL (BMP) (06/16/2023 8:05 EDT) Sodium 129(L) 136 - 145 mmol/L 06/16/2023 8:39 T [facility] Potassium 5.3(H) 3.5 - 5.0 mmol/L 06/16/2023 8:39 [facility] Chloride 103 96 - 110 mmol/L 06/16/2023 8:39 [facility] CO2 Total 17(L) 22 - 32 mmol/L 06/16/2023 8:39 [facility] Anion Gap 9 5 - 14 mmol/L 06/16/2023 8:39 [facility] Glucose 155(H) 70 - 99 mg/dl 06/16/2023 8:39 [facility] Calcium 9.0 8.5 - 10.5 mg/dL 06/16/2023 8:39 [facility] BUN 39(H) 10 - 26 mg/dL 06/16/2023 8:39 [facility] Creatinine 1.17(H) 0.52 - 1.04 mg/dL 06/16/2023 8:39 [facility] eGFR 56(L) >60 mL/min/1.73 m2 06/16/2023 8:39 [facility] Blood VENOUS BLOOD / Unknown Venipuncture / Unknown 06/16/2023 8:05 EDT 06/16/2023 8:19 EDT Reza Brito MD CHEMISTRY & BLOOD FL S ORDERABLES Performing Organization Address [facility] de Phone Number [facility] [address] [place] [address] * (ABNORMAL) TROPONIN I (06/16/2023 5:51 EDT) Troponin I (ng/mL) 2.000(H) <0.034 ng/mL 06/16/2023 6:34 EDT [facility] Blood VENOUS BLOOD / Unknown Venipuncture / Unknown 06/16/2023 5:51 EDT 06/16/2023 5:55 EDT Narrative [facility] - 06/16/2023 6:34 EDT The results of this assay can be falsely lowered due to the consumption of Biotin. Ayden Jennings CHEMISTRY & BLOOD FL S ORDERABLES Performing Organization Address [facility] de Phone Number [facility] [address] [place] [address] * EKG 12-LEAD (06/16/2023 5:50 EDT) 06/16/2023 5:50 EDT Narrative [facility] EKG - 06/17/2023 12:45 EDT ? [facility] ? Test Date: ?2023-06-16 Pat Name: ? DELLA BROWNING ? Department: ?? [place] [facility] ? Room: ? M316 Gender: ? Female ? 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 Requested By: YI Lara Order Number: [id number] ? Reading MD: ?? VILMA OLIVEIRA MD ? Measurements Intervals ?[place] ? Rate: ? 69 ? P: ?33 MS: ? 200 ?QRS: ?17 QRSD: ? 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 Ayden Jennings CARDIAC ECG ORDERABL ES [facility] EKG * (ABNORMAL) DIFFERENTIAL, AUTOMATED MANUAL (06/16/2023 4:57 EDT) % Neutrophils 94.7 % 06/16/2023 6:21 EDT [facility] % Banded Neutrophils 0.9 % 06/16/2023 6:21 EDT [facility] % Lymphocytes 2.6 % 06/16/2023 6:21 EDT [facility] % Monocytes 0.9 % 06/16/2023 6:21 EDT [facility] % Metamyelocytes 0.9 % 06/16/19 6:21 EDT [facility] Vacuolated Neutrophils Present 06/16/2023 6:21 EDT [facility] Absolute Neutrophils 27.43(H) 2.20 - 8.85 K/cmm 06/16/2023 6:21 EDT [facility] Absolute Bands 0.26 K/cmm 06/16/2023 6:21 T [facility] Absolute Lymphocytes 0.75(L) 1.09 - 3.30 K/cmm 06/16/2023 6:21 EDT [facility] Absolute Monocytes 0.26 0.10 - 0.80 K/cmm 06/16/2023 6:21 [facility] Absolute Metamyelocytes 0.26(H) <=0.00 K/cmm 06/16/2023 6:21 T [facility] Type of Differential: Manual 06/16/2023 6:21 [facility] Blood VENOUS BLOOD / Unknown Venipuncture / Unknown 06/16/2023 4:57 EDT 06/16/2023 5:03 EDT Ayden Jennings HEMATOLOGY & PF4 ORD ERABLES [facility] [address], [place] [id number] * (ABNORMAL) COMPLETE BLOOD COUNT AND DIFFERENTIAL (06/16/2023 4:57 EDT) WBC 28.97(H) 4.00 - 12.40 K/cmm 06/16/2023 5:14 [facility] RBC 2.86(L) 3.86 - 5.04 M/cmm 06/16/2023 5:14 [facility] Hemoglobin 8.8(L) 11.6 - 15.2 g/dL 06/16/2023 5:14 [facility] HCT 24.4(L) 34.9 - 44.4 % 06/16/2023 5:14 [facility] MCV 85 81 - 98 fL 06/16/2023 5:14 [facility] MCH 30.8 26.7 - 33.3 pg 06/16/2023 5:14 [facility] MCHC 36.1(H) 32.1 - 35.9 g/dL 06/16/2023 5:14 [facility] RDW-CV 15.9(H) <14.7 % 06/16/2023 5:14 [facility] RDW-SD 49.2 <50.4 fl 06/16/2023 5:14 [facility] PLT 323 141 - 377 K/cmm 06/16/2023 5:14 [facility] MPV 10.0 9.5 - 12.7 fL 06/16/2023 5:14 [facility] Blood VENOUS BLOOD / Unknown Venipuncture / Unknown 06/16/2023 4:57 EDT 06/16/2023 5:03 EDT Ayden Jennings PACKAGES & DNA PROBE ORDERABLES [facility] [address] [place] [address] * (ABNORMAL) BASIC METABOLIC PANEL (BMP) (06/16/2023 4:57 EDT) Sodium 129(L) 136 - 145 mmol/L 06/16/2023 5:55 [facility] Potassium 4.9 3.5 - 5.0 mmol/L 06/16/2023 5:55 [facility] Chloride 103 96 - 110 mmol/L 06/16/2023 5:55 [facility] CO2 Total 16(L) 22 - 32 mmol/L 06/16/2023 5:55 [facility] Anion Gap 10 5 - 14 mmol/L 06/16/2023 5:55 [facility] Glucose 145(H) 70 - 99 mg/dl 06/16/2023 5:55 [facility] Calcium 8.3(L) 8.5 - 10.5 mg/dL 06/16/2023 5:55 [facility] BUN 38(H) 10 - 26 mg/dL 06/16/2023 5:55 [facility] Creatinine 1.05(H) 0.52 - 1.04 mg/dL 06/16/2023 5:55 EDT [facility] eGFR 64 >60 mL/min/1.73 m2 06/16/2023 5:55 EDT [facility] Blood VENOUS BLOOD / Unknown Venipuncture / Unknown 06/16/2023 4:57 EDT 06/16/2023 5:03 EDT Titus Kenny MD CHEMISTRY & BLOOD GA S ORDERABLES Performing Organization Address [facility]/ZIP Co de Phone Number [facility] [address] [place] [address] * (ABNORMAL) POCT GLUCOSE, INTERFACED (06/16/2023 4:56 EDT) Glucose, POC 160(H) 70 - 100 mg/dL 06/16/2023 5:05 EDT [facility] HN LAB POC COMMENT (GLUCOSE) Test Performed by Nursing Services 06/16/2023 5:05 EDT [facility] Blood CAPILLARY BLOOD / Unknown 06/16/2023 4:56 EDT 06/16/2023 5:05 EDT Ayden Jennings POINT OF CARE TEST O RDERABLES Performing Organization Address [facility]/ZIP Co de Phone Number [facility] [address] [place] [address] * (ABNORMAL) BASIC METABOLIC PANEL (BMP) (06/16/2023 0:15 EDT) Sodium 130(L) 136 - 145 mmol/L 06/16/2023 1:15 EDT [facility] Potassium 4.7 3.5 - 5.0 mmol/L 06/16/2023 1:15 EDT [facility] Chloride 103 96 - 110 mmol/L 06/16/2023 1:15 EDT [facility] CO2 Total 16(L) 22 - 32 mmol/L 06/16/2023 1:15 EDT [facility] Anion Gap 11 5 - 14 mmol/L 06/16/2023 1:15 EDT [facility] Glucose 147(H) 70 - 99 mg/dl 06/16/2023 1:15 EDT [facility] Calcium 8.5 8.5 - 10.5 mg/dL 06/16/2023 1:15 EDT [facility] BUN 37(H) 10 - 26 mg/dL 06/16/2023 1:15 EDT [facility] Creatinine 1.09(H) 0.52 - 1.04 mg/dL 06/16/2023 1:15 EDT [facility] eGFR 61 >60 mL/min/1.73 m2 06/16/2023 1:15 EDT [facility] Blood VENOUS BLOOD / Unknown Venipuncture / Unknown 06/16/2023 0:15 EDT 06/16/2023 0:18 EDT Titus Kenny MD CHEMISTRY & BLOOD GA S ORDERABLES Performing Organization Address City/[facility] Co de Phone Number [facility] [address] [place] [address] * (ABNORMAL) POCT GLUCOSE, INTERFACED (06/16/2023 0:14 EDT) Glucose, POC 164(H) 70 - 100 mg/dL 06/16/2023 4:15 EDT [facility] HN LAB POC COMMENT (GLUCOSE) Test Performed by Nursing Services 06/16/2023 4:15 EDT [facility] Blood CAPILLARY BLOOD / Unknown 06/16/2023 0:14 EDT 06/16/2023 4:15 EDT Ayden Jennings POINT OF CARE TEST O RDERABLES Performing Organization Address City/[facility]/ZIP Co de Phone Number [facility] [address] [place] [address] * (ABNORMAL) POCT GLUCOSE, INTERFACED (06/15/2023 20:23 EDT) Glucose, POC 155(H) 70 - 100 mg/dL 06/15/2023 20:24 EDT [facility] HN LAB POC COMMENT (GLUCOSE) Test Performed by Nursing Services 06/15/2023 20:24 T [facility] Blood CAPILLARY BLOOD / Unknown 06/15/2023 20:23 EDT 06/15/2023 20:24 EDT Ayden Lara Yi POINT OF CARE TEST O RDERABLES [facility] [address] [place] [address] * (ABNORMAL) POCT BLOOD GAS, EG6 I-STAT (06/15/2023 20:07 EDT) pH, Arterial, i-STAT 7.27(L) 7.35 - 7.45 06/15/2023 20:12 [facility] PCO2, Arterial, i-STAT 40 35 - 45 mmHg 06/15/2023 20:12 [facility] pO2, Arterial, i-STAT 70(L) 80 - 105 mmHg 06/15/2023 20:12 [facility] TCO2, Arterial, i-STAT 19(L) 22 - 26 mmol/L 06/15/2023 20:12 [facility] O2 Saturation, Arterial, i-STAT 91(L) 95 - 98 % 06/15/2023 20:12 [facility] Base Excess(+) / Deficit(-), Arterial, i-STAT -8(L) -2 - 3 mmol/L 06/15/2023 20:12 [facility] Blood ARTERIAL BLOOD / Unknown 06/15/2023 20:07 EDT 06/15/2023 20:12 EDT Narrative [facility] - 06/15/2023 20:12 EDT Test [...] Ayden Jennings POINT OF CARE TEST Sunshine CARRILLOVIVEKMICHAEL Performing Organization Address [facility]/ZIP Co de Phone Number [facility] [address], [place] [address] * (ABNORMAL) POCT GLUCOSE, INTERFACED (06/15/2023 18:42 EDT) Glucose, POC 117(H) 70 - 100 mg/dL 06/15/2023 18:43 EDT [facility] HN LAB POC COMMENT (GLUCOSE) Test Performed by Nursing Services 06/15/2023 18:43 EDT [facility] Blood CAPILLARY BLOOD / Unknown 06/15/2023 18:42 EDT 06/15/2023 18:43 EDT Ayden Jennings POINT OF CARE TEST Sunshine CRUZ Performing Organization Address [facility] Co de Phone Number [facility] [address], [place] [address] * (ABNORMAL) POCT BLOOD GAS, EG6 I-STAT (06/15/2023 17:41 EDT) pH, Arterial, i-STAT 7.22(L) 7.35 - 7.45 06/15/2023 17:45 EDT [facility] PCO2, Arterial, i-STAT 50(H) 35 - 45 mmHg 06/15/2023 17:45 T [facility] pO2, Arterial, i-STAT 70(L) 80 - 105 mmHg 06/15/2023 17:45 T [facility] TCO2, Arterial, i-STAT 22 22 - 26 mmol/L 06/15/2023 17:45 EDT [facility] O2 Saturation, Arterial, i-STAT 90(L) 95 - 98 % 06/15/2023 17:45 EDT [facility] Base Excess(+) / Deficit(-), Arterial, i-STAT -7(L) -2 - 3 mmol/L 06/15/2023 17:45 EDT [facility] Blood ARTERIAL BLOOD / Unknown 06/15/2023 17:41 EDT 06/15/2023 17:45 EDT Narrative [facility] - 06/15/2023 17:45 EDT Test [...] MD POINT OF CARE T EST ORDERABLES [facility] [address], [place] [id number] * (ABNORMAL) DIFFERENTIAL, AUTOMATED MANUAL (06/15/2023 17:40 EDT) % Neutrophils 77.4 % 06/15/2023 18:30 [facility] % Banded Neutrophils 1.7 % 06/15/2023 18:30 [facility] % Lymphocytes 6.1 % 06/15/2023 18:30 [facility] % Atypical Lymphocytes 0.9 % 06/15/2023 18:30 [facility] % Monocytes 4.4 % 06/15/2023 18:30 [facility] % Eosinophils 1.7 % 06/15/2023 18:30 [facility] % Metamyelocytes 5.2 % 06/15/19 18:30 [facility] % Myelocytes 1.7 % 06/15/2023 18:30 [facility] % Promyelocytes 0.9 % 18:30 [facility] Sydnee Cells 2+ 06/15/2023 18:30 [facility] Absolute Neutrophils 28.41(H) 2.20 - 8.85 K/cmm 06/15/2023 18:30 EDT [facility] Absolute Bands 0.62 K/cmm 06/15/2023 18:30 EDT [facility] Absolute Lymphocytes 2.24 1.09 - 3.30 K/cmm 06/15/2023 18:30 EDT [facility] Absolute Atypical Lymphocytes 0.33 K/cmm 06/15/2023 18:30 EDT [facility] Absolute Monocytes 1.61(H) 0.10 - 0.80 K/cmm 06/15/2023 18:30 EDT [facility] Absolute Eosinophils 0.62(H) 0.03 - 0.61 K/cmm 06/15/2023 18:30 [facility] Absolute Metamyelocytes 1.91(H) <=0.00 K/cmm 06/15/2023 18:30 EDT [facility] Absolute Myelocytes 0.62(H) <=0.00 K/cmm 06/15/2023 18:30 EDT [facility] Absolute Promyelocytes 0.33(H) <=0.00 K/cmm 06/15/2023 18:30 [facility] Type of Differential: Manual 06/15/2023 18:30 EDT [facility] Blood VENOUS BLOOD / Unknown Venipuncture / Unknown 06/15/2023 17:40 EDT 06/15/2023 17:47 EDT Ayden Jennings HEMATOLOGY & PF4 ORD ERABLES [facility] [address], [place] [id number] * LACTIC ACID (06/15/2023 17:40 EDT) Lactic Acid 0.7 <=2.0 mmol/L 06/15/2023 17:59 EDT [facility] Blood VENOUS BLOOD / Unknown Venipuncture / Unknown 06/15/2023 17:40 EDT 06/15/2023 17:45 EDT Ayden Jennings CHEMISTRY & BLOOD GA S ORDERABLES [facility] [address] [place] [address] * (ABNORMAL) COMPLETE BLOOD COUNT AND DIFFERENTIAL (06/15/2023 17:40 EDT) WBC 36.70(H) 4.00 - 12.40 K/cmm 06/15/2023 18:09 EDT [facility] RBC 3.25(L) 3.86 - 5.04 M/cmm 06/15/2023 18:09 [facility] Hemoglobin 10.0(L) 11.6 - 15.2 g/dL 06/15/2023 18:09 [facility] HCT 27.5(L) 34.9 - 44.4 % 06/15/2023 18:09 [facility] MCV 85 81 - 98 fL 06/15/2023 18:09 [facility] MCH 30.8 26.7 - 33.3 pg 06/15/2023 18:09 [facility] MCHC 36.4(H) 32.1 - 35.9 g/dL 06/15/2023 18:09 [facility] RDW-CV 15.9(H) <14.7 % 06/15/2023 18:09 [facility] RDW-SD 48.3 <50.4 fl 06/15/2023 18:09 [facility] PLT 352 141 - 377 K/cmm 06/15/2023 18:09 [facility] MPV 10.3 9.5 - 12.7 fL 06/15/2023 18:09 [facility] Blood VENOUS BLOOD / Unknown Venipuncture / Unknown 06/15/2023 17:40 EDT 06/15/2023 17:47 EDT Ayden Jennings PACKAGES & DNA PROBE ORDERABLES [facility] [address] [place] [address] * (ABNORMAL) BASIC METABOLIC PANEL (BMP) (06/15/2023 17:40 EDT) Sodium 128(L) 136 - 145 mmol/L 06/15/2023 18:01 [facility] Potassium 4.8 3.5 - 5.0 mmol/L 06/15/2023 18:01 [facility] Comment:Slight hemolysis miky ntified, interpret with caution as hemolysis will elevate potassium result. Chloride 102 96 - 110 mmol/L 06/15/2023 18:01 [facility] CO2 Total 17(L) 22 - 32 mmol/L 06/15/2023 18:01 [facility] Anion Gap 9 5 - 14 mmol/L 06/15/2023 18:01 [facility] Glucose 121(H) 70 - 99 mg/dl 06/15/2023 18:01 [facility] Calcium 8.9 8.5 - 10.5 mg/dL 06/15/2023 18:01 [facility] BUN 38(H) 10 - 26 mg/dL 06/15/2023 18:01 [facility] Comment: Slight hemolysis identified, interpret with caution as results may be affected due to hemolysis. Creatinine 1.02 0.52 - 1.04 mg/dL 06/15/2023 18:01 [facility] eGFR 66 >60 mL/min/1.7 3m2 06/15/2023 18:01 [facility] Blood VENOUS BLOOD / Unknown Venipuncture / Unknown 06/15/2023 17:40 EDT 06/15/2023 17:45 EDT Titus Kenny MD CHEMISTRY & BLOOD GA S ORDERABLES Performing Organization Address City/[facility]/ZIP Co de Phone Number [facility] [address] [place] [address] * (ABNORMAL) POCT GLUCOSE, INTERFACED (06/15/2023 17:39 EDT) Glucose, POC 131(H) 70 - 100 mg/dL 06/15/2023 17:40 EDT [facility] HN LAB POC COMMENT (GLUCOSE) Test Performed by Nursing Services 06/15/2023 17:40 EDT [facility] Blood CAPILLARY BLOOD / Unknown 06/15/2023 17:39 EDT 06/15/2023 17:40 EDT Ayden Jennings POINT OF CARE TEST O NANCY [facility] [address], [place] [id number] * POCT GLUCOSE, INTERFACED (06/15/2023 16:18 EDT) Glucose, POC 97 70 - 100 mg/dL 06/15/2023 16:19 EDT [facility] HN LAB POC COMMENT (GLUCOSE) Test Performed by Nursing Services 06/15/2023 16:19 EDT [facility] Blood CAPILLARY BLOOD / Unknown 06/15/2023 16:18 EDT 06/15/2023 16:19 EDT Ayden Jennings POINT OF CARE TEST O NANCY [facility] [address], [place] [address] * (ABNORMAL) POCT GLUCOSE, INTERFACED (06/15/2023 14:59 EDT) Glucose, POC 117(H) 70 - 100 mg/dL 06/15/2023 15:01 EDT [facility] HN LAB POC COMMENT (GLUCOSE) Test Performed by Nursing Services 06/15/2023 15:01 EDT [facility] Blood CAPILLARY BLOOD / Unknown 06/15/2023 14:59 EDT 06/15/2023 15:01 EDT Ayden G Yi POINT OF CARE TEST O RDERAMICHAEL Performing Organization Address [facility] Co de Phone Number [facility] [address], [place] [phone] * (ABNORMAL) POCT GLUCOSE, INTERFACED (06/15/2023 13:53 EDT) Glucose, POC 119(H) 70 - 100 mg/dL 06/15/2023 13:54 EDT [facility] HN LAB POC COMMENT (GLUCOSE) Test Performed by Nursing Services 06/15/2023 13:54 EDT [facility] Blood CAPILLARY BLOOD / Unknown 06/15/2023 13:53 EDT 06/15/2023 13:54 EDT Ayden Jennings POINT OF CARE TEST O LORENAERAMICHAEL Performing Organization Address [facility] Co de Phone Number [facility] [address], [place] [phone] * (ABNORMAL) POCT GLUCOSE, INTERFACED (06/15/2023 12:58 EDT) Glucose, POC 103(H) 70 - 100 mg/dL 06/15/2023 12:59 EDT [facility] HN LAB POC COMMENT (GLUCOSE) Test Performed by Nursing Services 06/15/2023 12:59 EDT [facility] Blood CAPILLARY BLOOD / Unknown 06/15/2023 12:58 EDT 06/15/2023 12:59 EDT Ayden Jennings POINT OF CARE TEST O LORENAERAMICHAEL Performing Organization Address [facility] Co de Phone Number [facility] [address], [place] [phone] * (ABNORMAL) POCT GLUCOSE, INTERFACED (06/15/2023 11:58 EDT) Glucose, POC 111(H) 70 - 100 mg/dL 06/15/2023 11:59 EDT [facility] HN LAB POC COMMENT (GLUCOSE) Test Performed by Nursing Services 06/15/2023 11:59 EDT [facility] Blood CAPILLARY BLOOD / Unknown 06/15/2023 11:58 EDT 06/15/2023 11:59 EDT Ayden Jennings POINT OF CARE TEST O RDERABLES Performing Organization Address [facility] Co de Phone Number [facility] [address] [place] [address] * CALCIUM, IONIZED (06/15/2023 11:52 EDT) Pathologist [facility] Calcium, Ionized 1.22 1.14 - 1.35 mmol/L 06/15/2023 12:18 EDT [facility] Comment: Tube not filled to capacity. Ionized calcium results may be falsely decreased. Interpret results with caution. Blood VENOUS BLOOD / Unknown Venipuncture / Unknown 06/15/2023 11:52 EDT 06/15/2023 12:04 EDT Chato Serrano MD CHEMISTRY & BLOOD GA S ORDERABLES Performing Organization Address [facility] Co de Phone Number [facility] [address] [place] [address] * (ABNORMAL) BASIC METABOLIC PANEL (BMP) (06/15/2023 11:49 EDT) Sodium 128(L) 136 - 145 mmol/L 06/15/2023 12:43 EDT [facility] Potassium 4.3 3.5 - 5.0 mmol/L 06/15/2023 12:43 EDT [facility] Chloride 105 96 - 110 mmol/L 06/15/2023 12:43 EDT [facility] CO2 Total 15(L) 22 - 32 mmol/L 06/15/2023 12:43 EDT [facility] Anion Gap 8 5 - 14 mmol/L 06/15/2023 12:43 EDT [facility] Glucose 100(H) 70 - 99 mg/dl 06/15/2023 12:43 EDT [facility] Calcium 9.1 8.5 - 10.5 mg/dL 06/15/2023 12:43 EDT [facility] BUN 37(H) 10 - 26 mg/dL 06/15/2023 12:43 EDT [facility] Creatinine 0.92 0.52 - 1.04 mg/dL 06/15/2023 12:43 EDT [facility] eGFR 75 >60 mL/min/1.73 m2 06/15/2023 12:43 EDT [facility] Blood VENOUS BLOOD / Unknown Venipuncture / Unknown 06/15/2023 11:49 EDT 06/15/2023 12:17 EDT Titus Kenny MD CHEMISTRY & BLOOD GA S ORDERABLES Performing Organization Address City/[facility]/ZIP Co de Phone Number [facility] [address] [place] [address] * (ABNORMAL) POCT GLUCOSE, INTERFACED (06/15/2023 10:58 EDT) Glucose, POC 117(H) 70 - 100 mg/dL 06/15/2023 10:59 EDT [facility] HN LAB POC COMMENT (GLUCOSE) Test Performed by Nursing Services 06/15/2023 10:59 EDT [facility] Blood CAPILLARY BLOOD / Unknown 06/15/2023 10:58 EDT 06/15/2023 10:59 EDT Ayden Jennings POINT OF CARE TEST O RDERABLES Performing Organization Address City/[facility]/ZIP Co de Phone Number [facility] [address] [place] [address] * XR FEEDING TUBE PLACEMENT (06/15/2023 10:41 [...] view is needed, formal films are recommended. [id number] Narrative 06/15/2023 10:51 EDT XR FEEDING TUBE [...] view is needed, formal films are recommended. [id number] Ayden Jennings IMG DIAGNOSTIC IMAGI NG ORDERABLES * (ABNORMAL) POCT GLUCOSE, INTERFACED (06/15/2023 9:56 EDT) Glucose, POC 116(H) 70 - 100 mg/dL 06/15/2023 9:57 EDT [facility] HN LAB POC COMMENT (GLUCOSE) Test Performed by Nursing Services 06/15/2023 9:57 EDT [facility] Blood CAPILLARY BLOOD / Unknown 06/15/2023 9:56 EDT 06/15/2023 9:57 EDT Ayden Jennings POINT OF CARE TEST O RDERABLES [facility] [address], [place] [phone] * (ABNORMAL) POCT GLUCOSE, INTERFACED (06/15/2023 8:43 EDT) Glucose, POC 146(H) 70 - 100 mg/dL 06/15/2023 8:44 EDT [facility] HN LAB POC COMMENT (GLUCOSE) Test Performed by Nursing Services 06/15/2023 8:44 EDT [facility] Blood CAPILLARY BLOOD / Unknown 06/15/2023 8:43 EDT 06/15/2023 8:44 EDT Ayden Jennings POINT OF CARE TEST O RDERABLES Performing Organization Address City/[facility]/ZIP Co de Phone Number [facility] [address] [place] [phone] * (ABNORMAL) POCT GLUCOSE, INTERFACED (06/15/2023 7:41 EDT) Glucose, POC 164(H) 70 - 100 mg/dL 06/15/2023 7:42 EDT [facility] HN LAB POC COMMENT (GLUCOSE) Test Performed by Nursing Services 06/15/2023 7:42 EDT [facility] Blood CAPILLARY BLOOD / Unknown 06/15/2023 7:41 EDT 06/15/2023 7:42 EDT Paulette Hoover MD POINT OF CARE T EST ORDERABLES Performing Organization Address [facility]/ZIP Co de Phone Number [facility] [address] [place] [address] * (ABNORMAL) CALCIUM, IONIZED (06/15/2023 7:21 EDT) Calcium, Ionized 1.05(L) 1.14 - 1.35 mmol/L 06/15/2023 7:33 EDT [facility] Comment: Tube not filled to capacity. Ionized calcium results may be falsely decreased. Interpret results with caution. Blood VENOUS BLOOD / Unknown Venipuncture / Unknown 06/15/2023 7:21 EDT 06/15/2023 7:26 EDT Ayden Alexander MD CHEMISTRY & BLOOD GA S ORDERABLES Performing Organization Address City/[facility]/ZIP Co de Phone Number [facility] [address], [place] [phone] * (ABNORMAL) POCT GLUCOSE, INTERFACED (06/15/2023 6:52 EDT) Glucose, POC 190(H) 70 - 100 mg/dL 06/15/2023 6:56 EDT [facility] HN LAB POC COMMENT (GLUCOSE) Test Performed by Nursing Services 06/15/2023 6:56 EDT [facility] Blood CAPILLARY BLOOD / Unknown 06/15/2023 6:52 EDT 06/15/2023 6:56 EDT Paulette Hoover MD POINT OF CARE T EST ORDERABLES Performing Organization Address City/[facility]/ZIP Co de Phone Number [facility] [address] [place] [phone] * (ABNORMAL) POCT GLUCOSE, INTERFACED (06/15/2023 5:55 EDT) Glucose, POC 206(H) 70 - 100 mg/dL 06/15/2023 5:59 EDT [facility] HN LAB POC COMMENT (GLUCOSE) Test Performed by Nursing Services 06/15/2023 5:59 EDT [facility] Blood CAPILLARY BLOOD / Unknown 06/15/2023 5:55 EDT 06/15/2023 5:59 EDT Paulette Hoover MD POINT OF CARE T EST ORDERABLES Performing Organization Address City/[facility]/ZIP Co de Phone Number [facility] [address], [place] [phone] * (ABNORMAL) POCT BLOOD GAS, EG6 I-STAT (06/15/2023 5:25 EDT) pH, Arterial, i-STAT 7.36 7.35 - 7.45 06/15/2023 5:30 EDT [facility] PCO2, Arterial, i-STAT 31(L) 35 - 45 mmHg 06/15/2023 5:30 EDT [facility] pO2, Arterial, i-STAT 185(H) 80 - 105 mmHg 06/15/2023 5:30 EDT [facility] TCO2, Arterial, i-STAT 18(L) 22 - 26 mmol/L 06/15/2023 5:30 EDT [facility] O2 Saturation, Arterial, i-STAT 100(H) 95 - 98 % 06/15/2023 5:30 EDT [facility] Base Excess(+) / Deficit(-), Arterial, i-STAT -7(L) -2 - 3 mmol/L 06/15/2023 5:30 EDT [facility] Blood VENOUS BLOOD / Unknown 06/15/2023 5:25 EDT 06/15/2023 5:30 EDT Narrative [facility] - 06/15/2023 5:30 EDT Test [...] DO POINT OF CARE TEST O RDERABLES [facility] [address] [place] [phone] * (ABNORMAL) POCT GLUCOSE, INTERFACED (06/15/2023 5:10 EDT) Glucose, POC 222(H) 70 - 100 mg/dL 06/15/2023 5:54 EDT [facility] HN LAB POC COMMENT (GLUCOSE) Test Performed by Nursing Services 06/15/2023 5:54 EDT [facility] Blood CAPILLARY BLOOD / Unknown 06/15/2023 5:10 EDT 06/15/2023 5:54 EDT Paulette Hoover MD POINT OF CARE T EST ORDERABLES [facility] [address], [place] [phone] * (ABNORMAL) DIFFERENTIAL, AUTOMATED MANUAL (06/15/2023 5:10 EDT) % Neutrophils 92.2 % 06/15/2023 7:04 [facility] % Banded Neutrophils 1.7 % 06/15/2023 7:04 [facility] % Lymphocytes 2.6 % 06/15/2023 7:04 [facility] % Monocytes 1.7 % 06/15/2023 7:04 [facility] % Metamyelocytes 0.9 % 06/15/19 7:04 [facility] % Myelocytes 0.9 % 06/15/2023 7:04 [facility] Absolute Neutrophils 35.40(H) 2.20 - 8.85 K/cmm 06/15/2023 7:04 [facility] Absolute Bands 0.65 K/cmm 06/15/2023 7:04 [facility] Absolute Lymphocytes 1.00(L) 1.09 - 3.30 K/cmm 06/15/2023 7:04 [facility] Absolute Monocytes 0.65 0.10 - 0.80 K/cmm 06/15/2023 7:04 [facility] Absolute Metamyelocytes 0.35(H) <=0.00 K/cmm 06/15/2023 7:04 [facility] Absolute Myelocytes 0.35(H) <=0.00 K/cmm 06/15/2023 7:04 [facility] Type of Differential: Manual 06/15/2023 7:04 [facility] Blood VENOUS BLOOD / Unknown Venipuncture / Unknown 06/15/2023 5:10 EDT 06/15/2023 5:17 EDT Carlos Jennings DO HEMATOLOGY & PF4 ORD ERABLES [facility] [address], [place] [phone] * (ABNORMAL) COMPLETE BLOOD COUNT AND DIFFERENTIAL (06/15/2023 5:10 EDT) WBC 38.40(H) 4.00 - 12.40 K/cmm 06/15/2023 5:29 EDT [facility] RBC 3.24(L) 3.86 - 5.04 M/cmm 06/15/2023 5:29 [facility] Hemoglobin 9.9(L) 11.6 - 15.2 g/dL 06/15/2023 5:29 [facility] HCT 27.0(L) 34.9 - 44.4 % 06/15/2023 5:29 [facility] MCV 83 81 - 98 fL 06/15/2023 5:29 [facility] MCH 30.6 26.7 - 33.3 pg 06/15/2023 5:29 [facility] MCHC 36.7(H) 32.1 - 35.9 g/dL 06/15/2023 5:29 [facility] RDW-CV 14.9(H) <14.7 % 06/15/2023 5:29 [facility] RDW-SD 45.6 <50.4 fl 06/15/2023 5:29 [facility] PLT 329 141 - 377 K/cmm 06/15/2023 5:29 [facility] MPV 10.2 9.5 - 12.7 fL 06/15/2023 5:29 [facility] Blood VENOUS BLOOD / Unknown Venipuncture / Unknown 06/15/2023 5:10 EDT 06/15/2023 5:17 EDT Carlos Jennings DO PACKAGES & DNA PROBE ORDERABLES Performing Organization Address City/[facility]/ZIP Co de Phone Number [facility] [address] [place] [address] * (ABNORMAL) PHOSPHORUS (06/15/2023 5:10 EDT) Phosphorus 6.0(H) 2.5 - 4.5 mg/dL 06/15/2023 5:36 EDT [facility] Blood VENOUS BLOOD / Unknown Venipuncture / Unknown 06/15/2023 5:10 EDT 06/15/2023 5:17 EDT Carlos Jennings DO CHEMISTRY & BLOOD GA S ORDERABLES Performing Organization Address [facility] Co de Phone Number [facility] [address] [place] [address] * MAGNESIUM (06/15/2023 5:10 EDT) Magnesium 1.9 1.7 - 2.8 mg/dL 06/15/2023 5:36 EDT [facility] Blood VENOUS BLOOD / Unknown Venipuncture / Unknown 06/15/2023 5:10 EDT 06/15/2023 5:17 EDT Carlos Jennings DO CHEMISTRY & BLOOD GA S ORDERABLES Performing Organization Address City/[facility]/ZIP Co de Phone Number [facility] [address] [place] [address] * LACTIC ACID (06/15/2023 5:10 EDT) Lactic Acid 0.9 <=2.0 mmol/L 06/15/2023 5:29 EDT [facility] Blood VENOUS BLOOD / Unknown Venipuncture / Unknown 06/15/2023 5:10 EDT 06/15/2023 5:16 EDT Carlos Jennings DO CHEMISTRY & BLOOD GA S ORDERABLES [facility] [address] [place] [address] * (ABNORMAL) BASIC METABOLIC PANEL (BMP) (06/15/2023 5:10 EDT) Pathologist [facility] Sodium 125(L) 136 - 145 mmol/L 06/15/2023 5:36 EDT [facility] Potassium 4.3 3.5 - 5.0 mmol/L 06/15/2023 5:36 EDT [facility] Chloride 102 96 - 110 mmol/L 06/15/2023 5:36 EDT [facility] CO2 Total 16(L) 22 - 32 mmol/L 06/15/2023 5:36 EDT [facility] Anion Gap 7 5 - 14 mmol/L 06/15/2023 5:36 EDT [facility] Glucose 200(H) 70 - 99 mg/dl 06/15/2023 5:36 EDT [facility] Calcium 7.5(L) 8.5 - 10.5 mg/dL 06/15/2023 5:36 EDT [facility] BUN 38(H) 10 - 26 mg/dL 06/15/2023 5:36 T [facility] Creatinine 0.97 0.52 - 1.04 mg/dL 06/15/2023 5:36 EDT [facility] eGFR 70 >60 mL/min/1.73 m2 06/15/2023 5:36 EDT [facility] Blood VENOUS BLOOD / Unknown Venipuncture / Unknown 06/15/2023 5:10 EDT 06/15/2023 5:17 EDT Titus Kenny MD CHEMISTRY & BLOOD GA S ORDERABLES Performing Organization Address City/[facility]/ZIP Co de Phone Number [facility] [address] [place] [address] * VANCOMYCIN, RANDOM (06/15/2023 5:10 EDT) Pathologist [facility] Vancomycin Random 14.3 See Note ??g/mL 06/15/2023 5:43 EDT [facility] Comment: NOTE: Reference Ranges: Trough: ??10.0 - 20.0 ug/mL Peak: ??25.0 - 50.0 ug/mL Blood VENOUS BLOOD / Unknown Venipuncture / Unknown 06/15/2023 5:10 EDT 06/15/2023 5:17 EDT Paulette Hoover MD CHEMISTRY & BLO OD GAS ORDERABLES Performing Organization Address City/[facility]/ZIP Co de Phone Number [facility] [address] [place] [address] * (ABNORMAL) POCT GLUCOSE, INTERFACED (06/15/2023 4:04 EDT) Glucose, POC 251(H) 70 - 100 mg/dL 06/15/2023 4:05 EDT [facility] HN LAB POC COMMENT (GLUCOSE) Test Performed by Nursing Services 06/15/2023 4:05 EDT [facility] Blood CAPILLARY BLOOD / Unknown 06/15/2023 4:04 EDT 06/15/2023 4:05 EDT Paulette Hoover MD POINT OF CARE T EST ORDERABLES Performing Organization Address City/[facility]/ZIP Co de Phone Number [facility] [address] [place] [phone] * (ABNORMAL) POCT GLUCOSE, INTERFACED (06/15/2023 3:35 EDT) Glucose, POC 237(H) 70 - 100 mg/dL 06/15/2023 3:36 EDT [facility] HN LAB POC COMMENT (GLUCOSE) Test Performed by Nursing Services 06/15/2023 3:36 EDT [facility] Blood CAPILLARY BLOOD / Unknown 06/15/2023 3:35 EDT 06/15/2023 3:36 EDT Paulette Hoover MD POINT OF CARE T EST ORDERABLES [facility] [address] [place] [address] * EKG 12-LEAD (06/15/2023 1:38 EDT) 06/15/2023 1:38 EDT Narrative [facility] EKG - 06/20/2023 9:25 EDT ? [facility] ? Test Date: ?2023-06-15 Pat Name: ? DELLA BROWNING ? Department: ?? [facility] [address] ? Room: ? M316 Gender: ? Female ? 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 Requested By: YI GONZALEZ Order Number: [id number] ? Alicia MCCLENDON: ?? HALIE FAIR MD ? Measurements Intervals ?[place] ? Rate: ? 88 ? P: ?49 MS: ? 195 ?QRS: ?30 QRSD: ? 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 [id number] Narrative 06/15/2023 13:05 EDT XR CHEST PORTABLE [...] of atelectasis. Apices not completely included in [id number]. The pulmonary vasculature is unremarkable. Pleura: Suboptimally evaluated on nonupright radiograph, but no visible abnormality. Cardiac and mediastinal contours: Within normal limits for technique. Soft tissues and extrathoracic findings: No significant abnormalities. Bones: No obvious displaced rib fractures. Hira Franklin MD IMG DIAGNOSTIC IMAGI NG ORDERABLES * PROTIME (06/15/2023 1:10 EDT) [facility] I.N.R. 1.0 0.9 - 1.1 Ratio 06/15/2023 1:57 EDT [facility] Pro Time 11.4 9.7 - 12.8 secs 06/15/2023 1:57 EDT [facility] Blood VENOUS BLOOD / Unknown Venipuncture / Unknown 06/15/2023 1:10 EDT 06/15/2023 1:35 EDT Narrative [facility] - 06/15/2023 1:57 EDT Moderate Intensity Coumadin INR = 2.0-3.0 Adjustments in anticoagulant therapy dose should be based on the INR and NOT on the Protime. Carlos Jennings DO HEMATOLOGY & PF4 ORD ERABLES [facility] [address] [place] [address] * PTT (06/15/2023 1:10 EDT) [facility] PTT 27 26 - 37 secs 06/15/2023 1:57 EDT [facility] Blood VENOUS BLOOD / Unknown Venipuncture / Unknown 06/15/2023 1:10 EDT 06/15/2023 1:35 EDT Carlos Jennings DO HEMATOLOGY & PF4 ORD ERABLES [facility] [address] [place] [address] * (ABNORMAL) POCT GLUCOSE, INTERFACED (06/15/2023 1:07 EDT) [facility] Glucose, POC 263(H) 70 - 100 mg/dL 06/15/2023 1:10 EDT [facility] HN LAB POC COMMENT (GLUCOSE) Test Performed by Nursing Services 06/15/2023 1:10 [facility] Blood CAPILLARY BLOOD / Unknown 06/15/2023 1:07 EDT 06/15/2023 1:10 EDT Adyen Alexander MD POINT OF CARE TEST O RDERABLES [facility] [address] [place] [address] * (ABNORMAL) DIFFERENTIAL, AUTOMATED MANUAL (06/15/2023 1:01 EDT) % Neutrophils 75.9 % 06/15/2023 2:09 [facility] % Banded Neutrophils 6.9 % 06/15/2023 2:09 [facility] % Lymphocytes 3.5 % 06/15/2023 2:09 [facility] % Monocytes 3.4 % 06/15/2023 2:09 [facility] % Eosinophils 0.9 % 06/15/2023 2:09 [facility] % Basophils 0.9 % 06/15/2023 2:09 [facility] % Metamyelocytes 3.4 % 06/15/19 2:09 [facility] % Myelocytes 3.4 % 06/15/2023 2:09 [facility] % Promyelocytes 1.7 % 2:09 [facility] Hypersegmented Neutrophils Present 06/15/2023 2:09 [facility] Vacuolated Neutrophils Present 06/15/2023 2:09 [facility] Absolute Neutrophils 37.84(H) 2.20 - 8.85 K/cmm 06/15/2023 2:09 [facility] Absolute Bands 3.44 K/cmm 06/15/2023 2:09 [facility] Absolute Lymphocytes 1.74 1.09 - 3.30 K/cmm 06/15/2023 2:09 [facility] Absolute Monocytes 1.69(H) 0.10 - 0.80 K/cmm 06/15/2023 2:09 [facility] Absolute Eosinophils 0.45 0.03 - 0.61 K/cmm 06/15/2023 2:09 [facility] ABS Basophils 0.45(H) 0.01 - 0.11 K/cmm 06/15/2023 2:09 [facility] Absolute Metamyelocytes 1.69(H) <=0.00 K/cmm 06/15/2023 2:09 [facility] Absolute Myelocytes 1.69(H) <=0.00 K/cmm 06/15/2023 2:09 [facility] Absolute Promyelocytes 0.85(H) <=0.00 K/cmm 06/15/2023 2:09 [facility] Comment 06/15/2023 2:09 [facility] Comment:Differential perform ed on albumin made slide Smudge Cells Present 06/15/2023 2:09 [facility] Type of Differential: Manual 06/15/2023 2:09 [facility] Blood VENOUS BLOOD / Unknown Venipuncture / Unknown 06/15/2023 1:01 EDT 06/15/2023 1:08 EDT Tai Azar MD HEMATOLOGY & PF4 OR DERABLES [facility] [address] [place] [address] * (ABNORMAL) POCT BLOOD GAS, CG8 I-STAT (06/15/2023 1:01 EDT) pH, Arterial, i-STAT 7.27(L) 7.35 - 7.45 06/15/2023 1:06 EDT [facility] PCO2, Arterial, i-STAT 43 35 - 45 mmHg 06/15/2023 1:06 [facility] pO2, Arterial, i-STAT 35(L) 80 - 105 mmHg 06/15/2023 1:06 [facility] TCO2, Arterial, i-STAT 21(L) 22 - 26 mmol/L 06/15/2023 1:06 [facility] O2 Saturation, Arterial, i-STAT 58(L) 95 - 98 % 06/15/2023 1:06 [facility] Sodium, Arterial, i-STAT 128(L) 136 - 145 mmol/L 06/15/2023 1:06 [facility] Potassium, Arterial, i-STAT 4.5 3.5 - 5 mmol/L 06/15/2023 1:06 [facility] Glucose, Arterial, i-STAT 254(H) 70 - 100 mg/dL 06/15/2023 1:06 [facility] Hematocrit, Arterial, i-STAT 34(L) 35 - 44 %PCV 06/15/2023 1:06 [facility] Ionized Calcium, Arterial, i-STAT 1.24 1.12 - 1.32 mmol/L 06/15/2023 1:06 [facility] Base Excess(+) / Deficit(-), Arterial, i-STAT -7(L) -2 - 3 mmol/L 06/15/2023 1:06 [facility] Blood ARTERIAL BLOOD / Unknown 06/15/2023 1:01 EDT 06/15/2023 1:06 EDT Narrative [facility] - 06/15/2023 1:06 EDT Test [...] MD POINT OF CARE T EST ORDERABLES [facility] [address], [place] [id number] * LACTIC ACID (06/15/2023 1:01 EDT) Pathologist [facility] Lactic Acid 2.0 <=2.0 mmol/L 06/15/2023 1:19 [facility] Blood VENOUS BLOOD / Unknown Venipuncture / Unknown 06/15/2023 1:01 EDT 06/15/2023 1:07 EDT Carlos Jennings DO CHEMISTRY & BLOOD GA S ORDERABLES [facility] [address], [place] [phone] * (ABNORMAL) COMPLETE BLOOD COUNT AND DIFFERENTIAL (06/15/2023 1:01 EDT) [facility] WBC 49.85(H) 4.00 - 12.40 K/cmm 06/15/2023 1:16 [facility] RBC 3.64(L) 3.86 - 5.04 M/cmm 06/15/2023 1:16 [facility] Hemoglobin 11.1(L) 11.6 - 15.2 g/dL 06/15/2023 1:16 [facility] HCT 30.6(L) 34.9 - 44.4 % 06/15/2023 1:16 [facility] MCV 84 81 - 98 fL 06/15/2023 1:16 [facility] MCH 30.5 26.7 - 33.3 pg 06/15/2023 1:16 [facility] MCHC 36.3(H) 32.1 - 35.9 g/dL 06/15/2023 1:16 [facility] RDW-CV 14.7(H) <14.7 % 06/15/2023 1:16 [facility] RDW-SD 45.3 <50.4 fl 06/15/2023 1:16 [facility] PLT 388(H) 141 - 377 K/cmm 06/15/2023 1:16 [facility] MPV 10.2 9.5 - 12.7 fL 06/15/2023 1:16 [facility] Blood VENOUS BLOOD / Unknown Venipuncture / Unknown 06/15/2023 1:01 EDT 06/15/2023 1:08 EDT Tai Azar MD PACKAGES & DNA PROB E ORDERABLES [facility] [address], [place] [id number] * (ABNORMAL) BASIC METABOLIC PANEL (BMP) (06/15/2023 1:01 EDT) Sodium 126(L) 136 - 145 mmol/L 06/15/2023 1:19 [facility] Potassium 4.5 3.5 - 5.0 mmol/L 06/15/2023 1:19 [facility] Chloride 99 96 - 110 mmol/L 06/15/2023 1:19 [facility] CO2 Total 20(L) 22 - 32 mmol/L 06/15/2023 1:19 [facility] Anion Gap 7 5 - 14 mmol/L 06/15/2023 1:19 [facility] Glucose 243(H) 70 - 99 mg/dl 06/15/2023 1:19 [facility] Calcium 7.9(L) 8.5 - 10.5 mg/dL 06/15/2023 1:19 [facility] BUN 38(H) 10 - 26 mg/dL 06/15/2023 1:19 [facility] Creatinine 0.93 0.52 - 1.04 mg/dL 06/15/2023 1:19 [facility] eGFR 74 >60 mL/min/1.73 m2 06/15/2023 1:19 [facility] Blood VENOUS BLOOD / Unknown Venipuncture / Unknown 06/15/2023 1:01 EDT 06/15/2023 1:07 EDT Titus Kenny MD CHEMISTRY & BLOOD GA S ORDERABLES Performing Organization Address [facility] Co de Phone Number [facility] [address] [place] [address] * TRANSFUSE RED BLOOD CELLS (06/14/2023 22:57 EDT) Blood Tra Branham MD NURSING TREATMENT - BLOOD ADMINISTRATION * (ABNORMAL) ANAEROBE CULTURE/SMEAR(INC. AEROBES), OTHER (06/14/2023 22:51 EDT) Organism ID Moderate mixed gram positive growth including anaerobes. Bacteroides fragilis group is not present. 06/19/2023 8:08 EDT [facility] Smear Moderate Neutrophils Present(A) 06/19/2023 8:08 EDT [facility] Smear Moderate Mixed gram positive and gram negative organisms(A) 06/19/2023 8:08 EDT [facility] Comment:Results reviewed by supervisory staff. Tissue SOFT TISSUE / Unknown 06/14/2023 22:51 EDT 06/14/2023 23:34 EDT Moo Monique MD MICROBIOLOGY - GENE RAL ORDERABLES Performing Organization Address [facility] Co de Phone Number [facility] [address] [place] [address] * FUNGUS CULTURE/SMEAR (06/14/2023 22:51 EDT) Organism ID No fungi isolated 07/12/2023 11:15 EDT [facility] Fungal Smear No Fungi Seen 07/12/2023 11:15 EDT [facility] Tissue SOFT TISSUE / Unknown 06/14/2023 22:51 EDT 06/14/2023 23:34 EDT Moo Monique MD MICROBIOLOGY - GENE RAL ORDERABLES Performing Organization Address City/[facility]/ZIP Co de Phone Number [facility] [address] [place] [address] * TRANSFUSE RED BLOOD CELLS (06/14/2023 22:35 EDT) Blood Titus Kenny MD NURSING TREATMENT - BLOOD ADMINISTRATION * TRANSFUSE RED BLOOD CELLS (06/14/2023 22:35 EDT) Blood Titus Kenny MD NURSING TREATMENT - BLOOD ADMINISTRATION * (ABNORMAL) POCT GLUCOSE, INTERFACED (06/14/2023 22:00 EDT) Glucose, POC 170(H) 70 - 100 mg/dL 06/14/2023 22:02 EDT [facility] HN LAB POC COMMENT (GLUCOSE) Test Performed by Nursing Services 06/14/2023 22:02 EDT [facility] Blood CAPILLARY BLOOD / Unknown 06/14/2023 22:00 EDT 06/14/2023 22:02 EDT Ayden Alexander MD POINT OF CARE TEST O RDERABLES Performing Organization Address [facility]/ZIP Co de Phone Number [facility] [address] [place] [address] * PREPARE RED BLOOD CELLS (06/14/2023 19:55 EDT) Product Code [id number] [facility] Donor Number [id number] U [facility] BLOOD [facility] Unit ABO O [facility] BLOOD [facility] Unit Rh POS [facility] BLOOD B[facility] Unit Status TR^Transfuse [facility] BLOOD BANK Product Expiration Date [id number] [facility] Unit Blood Type Code 5100 [facility] Volume 290 [facility] BLOOD BANK Coding System [id number] [facility] BLOOD BANK 06/14/2023 19:5 5 EDT Carlos Jennings DO BLOOD BANK ORDERABLE S [facility] [address] [place] [address] * PREPARE RED BLOOD CELLS (06/14/2023 19:55 EDT) Product Code [id number] [facility] BLOOD BANK Donor Number [id number] U [facility] BLOOD [facility] Unit ABO O [facility] Unit Rh POS [facility] Unit Status RE^Released From [facility] BLOOD BANK Product Expiration Date [id number] [facility] Unit Blood Type Code 5100 [facility] Volume 297 [facility] Coding System [id number] [facility] BLOOD BANK 06/14/2023 19:5 5 EDT Carloslong Jennings DO BLOOD BANK ORDERABLE S [facility] [address] [place] [address] * PREPARE RED BLOOD CELLS (06/14/2023 19:55 EDT) Product Code [id number] [facility] BLOOD BANK Donor Number [id number] [facility] BLOOD B[facility] Unit ABO O [facility] Unit Rh POS [facility] Unit Status RE^Released From [facility] BLOOD BANK Product Expiration Date [id number] [facility] Unit Blood Type Code 5100 [facility] Coding System [id number] [facility] BLOOD BANK 06/14/2023 19:5 5 EDT Carloslong Jennings DO BLOOD BANK ORDERABLE S [facility] [address] [place] [address] * PREPARE RED BLOOD CELLS (06/14/2023 19:55 EDT) Product Code [id number] [facility] BLOOD BANK Donor Number [id number] [facility] BLOOD BANK Unit [facility]BO [facility] Unit Rh POS [facility] Unit Status TR^Transfuse [facility] BLOOD BANK Product Expiration Date [id number] [facility] Unit Blood Type Code 5100 [facility] Volume [facility] B[facility] Coding System [id number] [facility] BLOOD BANK Blood 06/14/2023 19:5 5 EDT Carlos Jennings DO BLOOD BANK ORDERABLE S [facility] [address] [place] [address] * PREPARE RED BLOOD CELLS (06/14/2023 18:47 EDT) Product Code [id number] [facility] BLOOD BANK Donor Number [id number] [facility] BLO[facility] Unit [facility]BO [facility] Unit Rh [facility] Unit Status TR^Transfuse [facility] BLOOD BANK Product Expiration Date [id number] [facility] Unit Blood Type Code 5100 [facility] Volume 289 [facility] BLOOD BANK Coding System [id number] [facility] BLOOD BANK 06/14/2023 18:4 7 EDT Paulette Hoover MD BLOOD BANK TIFFANY KELSEY [facility] [address] [place] [address] * PREPARE RED BLOOD CELLS (06/14/2023 18:47 EDT) Product Code [id number] [facility] BLOOD BANK Donor Number [id number] [facility] BLOOD BANK Unit ABO O [facility] BLOOD BANK Unit Rh POS [facility] BLOOD BANK Unit Status RE^Released From [employer] [facility] Product Expiration Date [id number] [facility] Unit Blood Type Code 5100 [facility] Volume 292 [facility] BLOOD BANK Coding System [id number] [facility] BLOOD BANK Blood 06/14/2023 18:4 7 EDT Paulette Hoover MD BLOOD BANK TIFFANY KELSEY [facility] [address] [facility] [address] * (ABNORMAL) DIFFERENTIAL, AUTOMATED MANUAL (06/14/2023 18:42 EDT) % Neutrophils 93.1 % 06/14/2023 19:36 [facility] % Banded Neutrophils 2.6 % 06/14/2023 19:36 [facility] % Atypical Lymphocytes 0.8 % 06/14/2023 19:36 [facility] % Monocytes 2.6 % 06/14/2023 19:36 [facility] % Metamyelocytes 0.9 % 06/14/19 19:36 [facility] Schistocytes Increased schistocytes are seen but less than 1% (1+) of the RBCs 06/14/2023 19:36 [facility] Sydnee Cells 2+ 06/14/2023 19:36 [facility] Basophilic Stippling Present in <2% of RBCs 06/14/2023 19:36 [facility] Dohle Bodies Present 06/14/2023 19:36 [facility] Toxic Granulation Present 024 19:36 [facility] Large Platelets Present K/cmm 19:36 [facility] Clumped Platelets Few platelet clumps present 06/14/2023 19:36 [facility] Absolute Neutrophils 29.75(H) 2.20 - 8.85 K/cmm 06/14/2023 19:36 EDT [facility] Absolute Bands 0.83 K/cmm 06/14/2023 19:36 T [facility] Absolute Atypical Lymphocytes 0.26 K/cmm 06/14/2023 19:36 EDT [facility] Absolute Monocytes 0.83(H) 0.10 - 0.80 K/cmm 06/14/2023 19:36 T [facility] Absolute Metamyelocytes 0.29(H) <=0.00 K/cmm 06/14/2023 19:36 T [facility] Type of Differential: Manual 06/14/2023 19:36 [facility] Blood VENOUS BLOOD / Unknown Venipuncture / Unknown 06/14/2023 18:42 EDT 06/14/2023 18:47 EDT Tai Azar MD HEMATOLOGY & PF4 OR DERABLES [facility] [address] [place] [id number] * (ABNORMAL) COMPLETE BLOOD COUNT AND DIFFERENTIAL (06/14/2023 18:42 EDT) WBC 31.96(H) 4.00 - 12.40 K/cmm 06/14/2023 18:57 T [facility] RBC 2.28(L) 3.86 - 5.04 M/cmm 06/14/2023 18:57 T [facility] Hemoglobin 7.1(L) 11.6 - 15.2 g/dL 06/14/2023 18:57 T [facility] HCT 19.8(LL) 34.9 - 44.4 % 06/14/2023 18:57 T [facility] MCV 87 81 - 98 fL 06/14/2023 18:57 T [facility] MCH 31.1 26.7 - 33.3 pg 06/14/2023 18:57 EDT [facility] MCHC 35.9 32.1 - 35.9 g/dL 06/14/2023 18:57 T [facility] RDW-CV 14.8(H) <14.7 % 06/14/2023 18:57 T [facility] RDW-SD 47.3 <50.4 fl 06/14/2023 18:57 T [facility] PLT 354 141 - 377 K/cmm 06/14/2023 18:57 T [facility] MPV 10.4 9.5 - 12.7 fL 06/14/2023 18:57 [facility] Blood VENOUS BLOOD / Unknown Venipuncture / Unknown 06/14/2023 18:42 EDT 06/14/2023 18:47 EDT Tai Azar MD PACKAGES & DNA PROB E ORDERABLES [facility] [address], [place] [id number] * (ABNORMAL) BASIC METABOLIC PANEL (BMP) (06/14/2023 17:27 EDT) Sodium 121(LL) 136 - 145 mmol/L 06/14/2023 17:52 [facility] Potassium 4.2 3.5 - 5.0 mmol/L 06/14/2023 17:52 [facility] Chloride 98 96 - 110 mmol/L 06/14/2023 17:52 [facility] CO2 Total 16(L) 22 - 32 mmol/L 06/14/2023 17:52 [facility] Anion Gap 7 5 - 14 mmol/L 06/14/2023 17:52 [facility] Glucose 185(H) 70 - 99 mg/dl 06/14/2023 17:52 [facility] Calcium 6.8(L) 8.5 - 10.5 mg/dL 06/14/2023 17:52 [facility] BUN 41(H) 10 - 26 mg/dL 06/14/2023 17:52 EDT [facility] Creatinine 0.98 0.52 - 1.04 mg/dL 06/14/2023 17:52 EDT [facility] eGFR 69 >60 mL/min/1.73 m2 06/14/2023 17:52 EDT [facility] Blood VENOUS BLOOD / Unknown Venipuncture / Unknown 06/14/2023 17:27 EDT 06/14/2023 17:31 EDT Titus Kenny MD CHEMISTRY & BLOOD GA S ORDERABLES Performing Organization Address [facility] Co de Phone Number [facility] [address] [place] [address] * (ABNORMAL) POCT GLUCOSE, INTERFACED (06/14/2023 17:25 EDT) Glucose, POC 217(H) 70 - 100 mg/dL 06/14/2023 17:26 EDT [facility] HN LAB POC COMMENT (GLUCOSE) Test Performed by Nursing Services 06/14/2023 17:26 EDT [facility] Blood CAPILLARY BLOOD / Unknown 06/14/2023 17:25 EDT 06/14/2023 17:26 EDT Ayden Alexander MD POINT OF CARE TEST O RDERABLES Performing Organization Address City/[facility]/ZIP Co de Phone Number [facility] [address] [place] [address] * PREPARE RED BLOOD CELLS (06/14/2023 15:17 EDT) Product Code [id number] [facility] B[facility]ANK Donor Number [id number] U [facility] BLO[facility] Unit ABO [facility] Unit Rh POS [facility] BLOOD [facility] Unit Status TR^Transfuse [facility] BLOOD BANK Product Expiration Date [id number] [facility] Unit Blood Type Code 5100 [facility] Volume 290 [facility] BLOOD BANK Coding System [id number] [facility] BLOOD BANK Blood 06/14/2023 15:1 7 EDT Reza Norwood PA-C BLOOD BANK ORDERA BLES Performing Organization Address [facility] de Phone Number [facility] [address] [place] [address] * VANCOMYCIN, RANDOM (06/14/2023 14:49 EDT) [facility] Vancomycin Random 18.7 See Note ??g/mL 06/14/2023 15:42 EDT [facility] Comment: NOTE: Reference Ranges: Trough: ??10.0 - 20.0 ug/mL Peak: ??25.0 - 50.0 ug/mL Blood VENOUS BLOOD / Unknown Venipuncture / Unknown 06/14/2023 14:49 EDT 06/14/2023 14:58 EDT Paulette Hoover MD CHEMISTRY & BLO OD GAS ORDERABLES Performing Organization Address [facility] Co de Phone Number [facility] [address] [place] [address] * (ABNORMAL) DIFFERENTIAL, AUTOMATED MANUAL (06/14/2023 13:49 EDT) Pathologist [facility] % Neutrophils 93.8 % 06/14/2023 14:34 EDT [facility] % Lymphocytes 2.6 % 06/14/2023 14:34 EDT [facility] % Monocytes 2.7 % 06/14/2023 14:34 EDT [facility] % Metamyelocytes 0.9 % 06/14/19 14:34 EDT [facility] Sydnee Cells 2+ 06/14/2023 14:34 EDT [facility] Absolute Neutrophils 31.96(H) 2.20 - 8.85 K/cmm 06/14/2023 14:34 [facility] Absolute Lymphocytes 0.89(L) 1.09 - 3.30 K/cmm 06/14/2023 14:34 [facility] Absolute Monocytes 0.92(H) 0.10 - 0.80 K/cmm 06/14/2023 14:34 [facility] Absolute Metamyelocytes 0.31(H) <=0.00 K/cmm 06/14/2023 14:34 [facility] Type of Differential: Manual 06/14/2023 14:34 [facility] Blood VENOUS BLOOD / Unknown Venipuncture / Unknown 06/14/2023 13:49 EDT 06/14/2023 13:59 EDT Tai Azar MD HEMATOLOGY & PF4 OR DERABLES Performing Organization Address City/State/[facility] Co de Phone Number [facility] [address] [place] [phone] * (ABNORMAL) COMPLETE BLOOD COUNT AND DIFFERENTIAL (06/14/2023 13:49 EDT) WBC 34.07(H) 4.00 - 12.40 K/cmm 06/14/2023 14:14 [facility] RBC 1.98(L) 3.86 - 5.04 M/cmm 06/14/2023 14:14 [facility] Hemoglobin 6.4(LL) 11.6 - 15.2 g/dL 06/14/2023 14:14 [facility] HCT 17.6(LL) 34.9 - 44.4 % 06/14/2023 14:14 [facility] MCV 89 81 - 98 fL 06/14/2023 14:14 [facility] MCH 32.3 26.7 - 33.3 pg 06/14/2023 14:14 [facility] MCHC 36.4(H) 32.1 - 35.9 g/dL 06/14/2023 14:14 [facility] RDW-CV 14.0 <14.7 % 06/14/2023 14:14 [facility] RDW-SD 45.7 <50.4 fl 06/14/2023 14:14 [facility] PLT 334 141 - 377 K/cmm 06/14/2023 14:14 [facility] MPV 10.5 9.5 - 12.7 fL 06/14/2023 14:14 [facility] Blood VENOUS BLOOD / Unknown Venipuncture / Unknown 06/14/2023 13:49 EDT 06/14/2023 13:59 EDT Tai Azar MD PACKAGES & DNA PROB E ORDERABLES [facility] [address] [place] [address] * (ABNORMAL) BASIC METABOLIC PANEL (BMP) (06/14/2023 12:52 EDT) Sodium 119(LL) 136 - 145 mmol/L 06/14/2023 14:04 [facility] Potassium 4.4 3.5 - 5.0 mmol/L 06/14/2023 14:04 [facility] Chloride 97 96 - 110 mmol/L 06/14/2023 14:04 [facility] CO2 Total 15(L) 22 - 32 mmol/L 06/14/2023 14:04 [facility] Anion Gap 7 5 - 14 mmol/L 06/14/2023 14:04 [facility] Glucose 274(H) 70 - 99 mg/dl 06/14/2023 14:04 [facility] Calcium 6.7(L) 8.5 - 10.5 mg/dL 06/14/2023 14:04 [facility] BUN 41(H) 10 - 26 mg/dL 06/14/2023 14:04 [facility] Creatinine 0.99 0.52 - 1.04 mg/dL 06/14/2023 14:04 EDT [facility] eGFR 69 >60 mL/min/1.73 m2 06/14/2023 14:04 EDT [facility] Blood VENOUS BLOOD / Unknown Venipuncture / Unknown 06/14/2023 12:52 EDT 06/14/2023 13:28 EDT Titus Kenny MD CHEMISTRY & BLOOD GA S ORDERABLES Performing Organization Address City/[facility]/ZIP Co de Phone Number [facility] [address] [place] [address] * (ABNORMAL) POCT GLUCOSE, INTERFACED (06/14/2023 12:50 EDT) Glucose, POC 263(H) 70 - 100 mg/dL 06/14/2023 12:52 EDT [facility] HN LAB POC COMMENT (GLUCOSE) Test Performed by Nursing Services 06/14/2023 12:52 EDT [facility] Blood CAPILLARY BLOOD / Unknown 06/14/2023 12:50 EDT 06/14/2023 12:52 EDT Ayden Alexander MD POINT OF CARE TEST O RDERABLES Performing Organization Address [facility]/ZIP Co de Phone Number [facility] [address] [place] [address] * TRANSFUSE RED BLOOD CELLS (06/14/2023 12:38 EDT) Blood Reza Norwood PA-C NURSING TREATMENT - BLOOD ADMINISTRATION * TRANSFUSE RED BLOOD CELLS (06/14/2023 12:38 EDT) Blood Reza Norwood PA-C NURSING TREATMENT - BLOOD ADMINISTRATION * PREPARE RED BLOOD CELLS (06/14/2023 10:15 EDT) Product Code [id number] [facility] BLOOD BANK Donor Number [id number] U [facility] BLOOD BANK Unit ABO O [facility] BLOOD BANK Unit Rh POS [facility] BLOOD BANK Unit Status TR^Transfuse [facility] BLOOD [facility] Product Expiration Date [id number] [facility] Unit Blood Type Code 5100 [facility] Volume 304 [facility] BLOOD BANK Coding System [id number] [facility] BLOOD BANK Blood 06/14/2023 10:1 5 EDT Reza Norwood PA-C BLOOD BANK ORDERA BLES Performing Organization Address City/[facility]/ZIP Co de Phone Number [facility] [address] [place] [address] * SLIDE REQUEST (06/14/2023 9:36 EDT) Note A smear is filed in the Hematology lab. 06/14/2023 10:14 EDT [facility] Blood VENOUS BLOOD / Unknown Venipuncture / Unknown 06/14/2023 9:36 EDT 06/14/2023 9:47 EDT Paulette Hoover MD HEMATOLOGY & PF 4 ORDERABLES Performing Organization Address City/[facility]/ZIP Co de Phone Number [facility] [address] [place] [address] * (ABNORMAL) COMPLETE BLOOD COUNT (06/14/2023 9:36 EDT) WBC 32.49(H) 4.00 - 12.40 K/cmm 06/14/2023 10:00 EDT [facility] RBC 2.02(L) 3.86 - 5.04 M/cmm 06/14/2023 10:00 EDT [facility] Hemoglobin 6.5(LL) 11.6 - 15.2 g/dL 06/14/2023 10:00 EDT [facility] HCT 18.2(LL) 34.9 - 44.4 % 06/14/2023 10:00 EDT [facility] MCV 90 81 - 98 fL 06/14/2023 10:00 EDT [facility] MCH 32.2 26.7 - 33.3 pg 06/14/2023 10:00 EDT [facility] MCHC 35.7 32.1 - 35.9 g/dL 06/14/2023 10:00 EDT [facility] RDW-CV 14.3 <14.7 % 06/14/2023 10:00 EDT [facility] RDW-SD 47.8 <50.4 fl 06/14/2023 10:00 EDT [facility] PLT 352 141 - 377 K/cmm 06/14/2023 10:00 EDT [facility] MPV 10.3 9.5 - 12.7 fL 06/14/2023 10:00 EDT [facility] Blood VENOUS BLOOD / Unknown Venipuncture / Unknown 06/14/2023 9:36 EDT 06/14/2023 9:47 EDT Paulette Hoover MD HEMATOLOGY & PF 4 ORDERABLES Performing Organization Address City/State/[facility] Co de Phone Number [facility] [address], [place] [id number] * TRANSFUSE RED BLOOD CELLS (06/14/2023 8:03 EDT) Blood Titus Kenny MD NURSING TREATMENT - BLOOD ADMINISTRATION * TRANSFUSE RED BLOOD CELLS (06/14/2023 8:03 EDT) Blood Titus Kenny MD NURSING TREATMENT - BLOOD ADMINISTRATION * (ABNORMAL) POCT BLOOD GAS, CG8 I-STAT (06/14/2023 6:58 EDT) Hematocrit, Venous, i-STAT 19(LL) 35 - 44 % 06/14/2023 7:02 EDT [facility] Blood VENOUS BLOOD / Unknown 06/14/2023 6:58 EDT 06/14/2023 7:02 EDT Narrative [facility] - 06/14/2023 7:02 EDT Test Performed by Respiratory Paulette Hoover MD POINT OF CARE T EST ORDERABLES Performing Organization Address City/[facility]/ZIP Co de Phone Number [facility] [facility] [address] [place] [address] * PATIENT RE-TYPE (06/14/2023 6:35 EDT) ABO O 06/14/2023 7:18 EDT [facility] Rh Factor Positive 06/14/2023 7:18 EDT [facility] Blood VENOUS BLOOD / Unknown Venipuncture / Unknown 06/14/2023 6:35 EDT 06/14/2023 7:00 EDT Chato Patel MD BLOOD BANK TESTS Performing Organization Address [facility] Co de Phone Number [facility] [address] [place] [address] * PREPARE RED BLOOD CELLS (06/14/2023 6:14 EDT) Product Code [id number] [facility] Donor Number [id number] U [facility] Unit ABO O [facility] Unit Rh POS [facility] Unit Status TR^Transfuse [facility] Product Expiration Date [id number] [facility] Unit Blood Type Code 5100 [facility] Volume 281 [facility] BLOOD [facility] Coding System [id number] [facility] BLOOD BANK 06/14/2023 6:14 EDT Titus Kenny MD BLOOD BANK ORDERABLE S Performing Organization Address City/[facility]/ZIP Co de Phone Number [facility] [address] [place] [address] * TYPE AND SCREEN (06/14/2023 5:51 EDT) ABO O 06/14/2023 6:49 EDT [facility] Rh Factor Positive 06/14/2023 6:49 EDT [facility] Antibody Screen Negative 06/14/2023 6:49 EDT [facility] Specimen Expires: 06/17/2023 @ 23:59 06/14/2023 6:49 EDT [facility] Blood VENOUS BLOOD / Unknown Venipuncture / Unknown 06/14/2023 5:51 EDT 06/14/2023 6:01 EDT Ángel Godinez MD BLOOD BANK TESTS [facility] [address] [place] [address] * (ABNORMAL) POCT GLUCOSE, INTERFACED (06/14/2023 5:41 EDT) Glucose, POC 194(H) 70 - 100 mg/dL 06/14/2023 5:42 EDT [facility] HN LAB POC COMMENT (GLUCOSE) Test Performed by Nursing Services 06/14/2023 5:42 EDT [facility] Blood CAPILLARY BLOOD / Unknown 06/14/2023 5:41 EDT 06/14/2023 5:42 EDT Paulette Hoover MD POINT OF CARE T EST ORDERABLES [facility] [address] [place] [address] * PREPARE RED BLOOD CELLS (06/14/2023 5:20 EDT) Product Code [id number] [facility]OD [facility] Donor Number [id number] U [facility] B[facility]OD [facility] Unit ABO O [facility] Unit Rh POS [facility] BLOOD [facility] Unit Status TR^Transfuse [facility]LOOD [facility] Product Expiration Date [id number] [facility] Unit Blood Type Code 5100 [facility] Volume 281 [facility] BLOOD BANK Coding System [id number] [facility] BLOOD BANK 06/14/2023 5:20 EDT Ángel Godinez MD BLOOD BANK ORDERABL ES Performing Organization Address [facility] de Phone Number [facility] [address] [place] [address] * PREPARE RED BLOOD CELLS (06/14/2023 5:20 EDT) Product Code [id number] [facility] Donor Number [id number] U [facility] Unit ABO O [facility] Unit Rh POS [facility]OD [facility] Unit Status TR^Transfuse [facility] Product Expiration Date [id number] [facility] Unit Blood Type Code 5100 [facility] Volume 286 [facility] BLOOD BANK Coding System [id number] [facility] BLOOD BANK Blood 06/14/2023 5:20 EDT Ángel Godinez MD BLOOD BANK ORDERABL ES Performing Organization Address [facility] de Phone Number [facility] [address] [place] [address] * (ABNORMAL) DIFFERENTIAL, AUTOMATED MANUAL (06/14/2023 4:55 EDT) % Neutrophils 85.7 % 06/14/2023 5:53 EDT [facility] % Banded Neutrophils 1.8 % 06/14/2023 5:53 EDT [facility] % Lymphocytes 4.5 % 06/14/2023 5:53 EDT [facility] % Monocytes 7.1 % 06/14/2023 5:53 EDT [facility] % Myelocytes 0.9 % 06/14/2023 5:53 EDT [facility] Vacuolated Neutrophils Present 06/14/2023 5:53 EDT [facility] Absolute Neutrophils 27.65(H) 2.20 - 8.85 K/cmm 06/14/2023 5:53 EDT [facility] Absolute Bands 0.58 K/cmm 06/14/2023 5:53 [facility] Absolute Lymphocytes 1.45 1.09 - 3.30 K/cmm 06/14/2023 5:53 EDT [facility] Absolute Monocytes 2.29(H) 0.10 - 0.80 K/cmm 06/14/2023 5:53 [facility] Absolute Myelocytes 0.29(H) <=0.00 K/cmm 06/14/2023 5:53 [facility] Smudge Cells Present 06/14/2023 5:53 [facility] Type of Differential: Manual 06/14/2023 5:53 [facility] Blood VENOUS BLOOD / Unknown Venipuncture / Unknown 06/14/2023 4:55 EDT 06/14/2023 4:59 EDT Narrative [facility] - 06/14/2023 5:53 EDT Differential performed on albumin made slide. Ángel Godinez MD HEMATOLOGY & PF4 OR DERABLES [facility] [address] [place], [place] [id number] * (ABNORMAL) BASIC METABOLIC PANEL (BMP) (06/14/2023 4:55 EDT) Sodium 120(LL) 136 - 145 mmol/L 06/14/2023 5:36 T [facility] Potassium 4.0 3.5 - 5.0 mmol/L 06/14/2023 5:36 [facility] Chloride 96 96 - 110 mmol/L 06/14/2023 5:36 T [facility] CO2 Total 16(L) 22 - 32 mmol/L 06/14/2023 5:36 [facility] Anion Gap 8 5 - 14 mmol/L 06/14/2023 5:36 [facility] Glucose 174(H) 70 - 99 mg/dl 06/14/2023 5:36 [facility] Calcium 7.1(L) 8.5 - 10.5 mg/dL 06/14/2023 5:36 [facility] BUN 41(H) 10 - 26 mg/dL 06/14/2023 5:36 [facility] Creatinine 1.13(H) 0.52 - 1.04 mg/dL 06/14/2023 5:36 [facility] eGFR 59(L) >60 mL/min/1.73 m2 06/14/2023 5:36 [facility] Blood VENOUS BLOOD / Unknown Venipuncture / Unknown 06/14/2023 4:55 EDT 06/14/2023 5:04 EDT Titus Kenny MD CHEMISTRY & BLOOD GA S ORDERABLES [facility] [address] [place] [address] * (ABNORMAL) COMPLETE BLOOD COUNT AND DIFFERENTIAL (06/14/2023 4:55 EDT) WBC 32.26(H) 4.00 - 12.40 K/cmm 06/14/2023 5:17 [facility] RBC 1.55(L) 3.86 - 5.04 M/cmm 06/14/2023 5:17 [facility] Hemoglobin 5.1(LL) 11.6 - 15.2 g/dL 06/14/2023 5:17 [facility] HCT 13.8(LL) 34.9 - 44.4 % 06/14/2023 5:17 [facility] MCV 89 81 - 98 fL 06/14/2023 5:17 [facility] MCH 32.9 26.7 - 33.3 pg 06/14/2023 5:17 EDT [facility] MCHC 37.0(H) 32.1 - 35.9 g/dL 06/14/2023 5:17 T [facility] RDW-CV 14.1 <14.7 % 06/14/2023 5:17 EDT [facility] RDW-SD 45.4 <50.4 fl 06/14/2023 5:17 T [facility] PLT 332 141 - 377 K/cmm 06/14/2023 5:17 [facility] MPV 10.3 9.5 - 12.7 fL 06/14/2023 5:17 EDT [facility] Blood VENOUS BLOOD / Unknown Venipuncture / Unknown 06/14/2023 4:55 EDT 06/14/2023 4:59 EDT Ángel Godinez MD PACKAGES & DNA PROB E ORDERABLES [facility] [address] [place] [address] * (ABNORMAL) HEMOGLOBIN A1C (06/14/2023 4:55 EDT) Hemoglobin A1c 8.2(H) <5.7 % 06/14/2023 11:46 EDT [facility] Comment: Glycemic Status References: Normal: ??<5.7% Pre-Diabetes: ??5.7% - 6.4% Diagnostic of Diabetes: ??> or = 6.5% (if confirmed) Est Avg Glucose 189 mg/dL 11:46 EDT [facility] Comment:The eAG represents t he A1c result expressed as average glucose in mg/dL. Blood VENOUS BLOOD / Unknown Venipuncture / Unknown 06/14/2023 4:55 EDT 06/14/2023 4:59 EDT Ángel Godinez MD CHEMISTRY & BLOOD G ORDERABLES Performing Organization Address [facility]/ZIP Co de Phone Number [facility] [address] [place] [address] * MRSA PCR (06/14/2023 1:23 EDT) [facility] MRSA/Staph aureus Result No Staphylococcus aureus detected by PCR 06/14/2023 14:19 EDT [facility] Swab BOTH ANTERIOR NARES / Unknown Swab / Unknown 06/14/2023 1:23 EDT 06/14/2023 8:00 EDT Ángel Godinez MD MICROBIOLOGY - GENE RAL ORDERABLES Performing Organization Address [facility] de Phone Number [facility] [address] [place] [address] * VANCOMYCIN, RANDOM (06/14/2023 1:22 EDT) [facility] Vancomycin Random 14.1 See Note ??g/mL 06/14/2023 2:34 EDT [facility] Comment: NOTE: Reference Ranges: Trough: ??10.0 - 20.0 ug/mL Peak: ??25.0 - 50.0 ug/mL Blood VENOUS BLOOD / Unknown Finger/Heel Stick / Unknown 06/14/2023 1:22 EDT 06/14/2023 1:26 EDT Paulette Hoover MD CHEMISTRY & BLO OD GAS ORDERABLES Performing Organization Address [facility] Co de Phone Number [facility] [address] [place] [address] * (ABNORMAL) BASIC METABOLIC PANEL (BMP) (06/14/2023 1:22 EDT) [facility] Sodium 119(LL) 136 - 145 mmol/L 06/14/2023 2:34 EDT [facility] Potassium 4.4 3.5 - 5.0 mmol/L 06/14/2023 2:34 T [facility] Chloride 95(L) 96 - 110 mmol/L 06/14/2023 2:34 EDT [facility] CO2 Total 16(L) 22 - 32 mmol/L 06/14/2023 2:34 T [facility] Anion Gap 8 5 - 14 mmol/L 06/14/2023 2:34 T [facility] Glucose 249(H) 70 - 99 mg/dl 06/14/2023 2:34 T [facility] Calcium 6.7(L) 8.5 - 10.5 mg/dL 06/14/2023 2:34 [facility] BUN 42(H) 10 - 26 mg/dL 06/14/2023 2:34 [facility] Creatinine 1.03 0.52 - 1.04 mg/dL 06/14/2023 2:34 [facility] eGFR 65 >60 mL/min/1.73 m2 06/14/2023 2:34 T [facility] Blood VENOUS BLOOD / Unknown Finger/Heel Stick / Unknown 06/14/2023 1:22 EDT 06/14/2023 1:26 EDT Ángel Godinez MD CHEMISTRY & BLOOD G ORDERABLES [facility] [address] [place] [address] * (ABNORMAL) POCT GLUCOSE, INTERFACED (06/14/2023 0:58 EDT) Glucose, POC 269(H) 70 - 100 mg/dL 06/14/2023 0:59 EDT [facility] HN LAB POC COMMENT (GLUCOSE) Test Performed by Nursing Services 06/14/2023 0:59 EDT [facility] Blood CAPILLARY BLOOD / Unknown 06/14/2023 0:58 EDT 06/14/2023 0:59 EDT Ayden Alexander MD POINT OF CARE TEST O RDERABLES [facility] [address], [place] [id number] documented in this encounter Visit Diagnoses Diagnosis Necrotizing fasciitis ([facility] Primary Necrotizing fasciitis Necrotizing soft tissue infection Cardiopulmonary arrest with successful resuscitation ([facility]) Complete heart block ([facility]) Atrioventricular block, complete Palliative care by specialist [Z51.5] Type 2 diabetes mellitus without complication, without long-term current use of insulin ([facility]) Insufficiency, respiratory, acute [R06.89] Other pulmonary insufficiency, not elsewhere classified Electrolyte and fluid disorder [E87.8] Electrolyte and fluid disorders not elsewhere classified Acute respiratory failure with hypoxia ([facility]) Acute respiratory failure Respiratory insufficiency Other dyspnea and respiratory abnormality Type 2 diabetes mellitus with hyperglycemia, unspecified whether elderly companion insulin use ([facility]) [E11.65] Type 2 diabetes mellitus with peripheral neuropathy ([facility]) [E11.42] Type 2 diabetes with complication ([facility]) [E11.8] Type II or unspecified type diabetes mellitus with unspecified complication, not stated as uncontrolled Necrotizing fasciitis ([facility]) [M72.6] Necrotizing fasciitis Type 2 diabetes mellitus with hyperglycemia, with long-term current use of insulin ([facility]) Type 2 diabetes mellitus with other skin ulcer, with long-term current use of insulin ([facility]) Necrotizing soft tissue infection Cardiopulmonary arrest with successful resuscitation ([facility]) Type 2 diabetes mellitus Type II or unspecified type diabetes mellitus without mention of complication, not stated as uncontrolled Complete heart block ([facility]) Atrioventricular block, complete Necrotizing soft tissue infection documented in this encounter Admitting Diagnoses Diagnosis Necrotizing fasciitis ([facility]) Necrotizing fasciitis documented in this encounter Administered Medications Inactive Administered Medications - up to 3 most recent administrations Medication Order MAR Action Action Date Dose Rate Site acetaminophen (TYLENOL) tablet 1,000 mg 1,000 mg, oral, EVERY 6 HOURS, First dose on 08/04/23 at 1200, Until Discontinued, Routine Given 08/22/2023 [...] PRN, Starting on Sat06/14/23 at 1128, Until Sat08/22/23 at 1315, Line Care, Routine amLODIPine (NORVASC) tablet 10 mg 10 mg, oral, DAILY, First dose (after last modification) on Sat06/20/23 at 1130, Until Discontinued, Routine Given 08/22/2023 [...] PRN, Starting on Sat06/21/23 at 1014, Until Sat08/22/23 at 1315, Low Blood Sugar, Routine docusate sodium (COLACE) capsule 100 mg 100 mg, oral, 2 TIMES DAILY PRN, Starting on Sat08/09/23 at 1015, Until Sat08/22/23 at 1314, Constipation, Routine Given 08/13/2023 9:01 [...] needed, Starting on Sat06/21/23 at 1014, Until Sat08/22/23 at 1315, Low Blood Sugar, Routine HYDROmorphone-bupivacaine 10 mcg/ml-0.125% in NS 250 ml epidural 1 dose, Starting on Sat08/16/23 at 0615, Until Sat08/22/23 at 1314, Ghassan [place]: cabinet override insulin [...] Dina 08/15/23 at 1000, Until Discontinued, Routine Given 08/22/2023 9:29 EDT 48 Units Given 08/21/2023 10:48 EDT 48 Units Given 08/20/2023 9:46 EDT 48 Units ipratropium-albuteroL (DUONEB) 0.5 mg-3 mg(2.5 mg base)/3 mL nebulizer solution 3 mL 3 mL, nebulization, EVERY 4 HOURS PRN, Starting on Sat07/14/23 at 1600, Until Dina 08/22/23 at 1314, Wheezing, Routine Given 2023 15:36 EDT 3 mL lidocaine 5 % (LIDODERM) patch 2 Patch 2 Patch, transdermal, Administer over 12 Hours, DAILY, First dose (after last modification) on 08/03/23 at 0900, Until Discontinued, Routine Patch Applied 08/22/2023 9:23 EDT 2 Patches Back Patch Applied 08/21/2023 9:18 EDT 2 Patches Ba ck Patch Applied 08/20/2023 9:22 EDT 2 Patches Ba ck LORazepam (ATIVAN) tablet 0.5 mg 0.5 mg, oral, DAILY, First dose (after last modification) on 08/03/23 at 0900, Until Discontinued, Routine Given 08/22/2023 [...] mg Given 08/21/2023 17:35 EDT 1,000 mg lnnwtbei-kjm-ymbp fum-folic ac 7.5 mg iron-400 mcg tablet [...] Until Dina 08/22/23 at 1314, Pain, Routine Given 08/20/2023 12:00 [...] EDT Given 08/18/2023 8:10 EDT sodium chloride 0.9 % irrigation PRN, Starting on Sat06/17/23 at 1451, Until Sat06/17/23 at 1504, Routine, Intraprocedure Given 06/17/2023 14:5 1 EDT 3,000 mL sodium chloride soluble tablet 1,000 mg 1,000 [...] ulcer, with long-term current use of insulin ([facility]) 1 Device by misc (non-drug; combo route) route every 10 days. 08/12/2023 08/22/2023 Blood-Glucose Meter,Continuous (DEXCOM G7 FIELD [employer]ILL[employer]ING TECHNICIAN) miscIndications:Type 2 diabetes mellitus with hyperglycemia, with long-term current use of insulin ([facility]) 1 Device by [facility] (non-drug; combo route) route Once for 1 [...] times daily for 30 days. 08/22/2023 08/22/2023 vnicqiwc-agu-cuom fum-folic ac 7.5 mg iron-400 mcg tablet [...] Dina 06/20/23 at 1130, Until Discontinued, Routine 0911 (Given [...] on Sat08/15/23 at 1000, Until Discontinued, Routine 0946 (Given - Provider: Siri Vásquez RN) 1048 (Given - Provider: Parisa Bowman RN) 0929 (Given - Provider: Parisa Bowman RN) lidocaine 5 % (LIDODERM) patch 2 Patch 2 Patch, transdermal, Administer over 12 Hours, DAILY, First dose (after last modification) on 08/03/23 at 0900, Until Discontinued, Routine 921 (Patch Applied - Provider: Siri Vásquez RN)2052 (Patch Removed - Provider: Stan Leigh RN) 917 (Patch Applied - Provider: Parisa Bowman RN)2148 (Patch Removed - Provider: Stan Leigh RN) 09 (Patch Applied - Provider: Parisa Bowman RN)111 (Due: Patch Removed - Provider: Batch Job User Admin - Comment: Time automatically adjusted from order being discontinued) LORazepam (ATIVAN) tablet 0.5 mg(Linked Group 1) 0.5 mg, oral, DAILY, First dose (after last modification) on 08/03/23 at 0900, Until Discontinued, Routine 09 (Given - Provider: Siri Vásquez RN) 914 (Given - Provider: Parisa Bowman RN) 09 (Given - Provider: Parisa Bowman RN) melatonin [...] WITH BREAKFAST [employer] DINNER, First dose on Sat08/15/23 at 1015, Until Discontinued, Routine 0911 (Given - Provider: Siri Vásquez RN)181 (Given - Provider: Sushila Abraham RN) 0821 (Given - Provider: Parisa Bowman RN) metFORMIN (GLUCOPHAGE-XR) ER tablet 500 mg (COMPLETED) 500 mg, oral, Once (Time Specified), 1 dose, On Sat08/21/23 at 1130, Routine 1205 (Given - Provider: Parisa Bowman RN) methocarbamoL (ROBAXIN) tablet 1,000 mg 1,000 mg, oral, 4 TIMES DAILY, First dose (after last modification) on Sat07/13/23 at 1200, Until Discontinued, Routine 0911 (Given [...] Automatically canceled at discontinue of medication order) zfimsokj-qef-aiep fum-folic ac 7.5 mg iron-400 mcg tablet [...] on Sat07/01/23 at 0900, Until Discontinued, Routine 0911 (Patch [...] Vásquez RN)1414 (Given - Provider: Siri Vásquez RN)2052 (Given - Provider: Stan Leigh RN) 0916 (Given - Provider: Parisa Bowman RN)1402 (Given - Provider: Parisa Bowman RN)214 (Given - Provider: Stan Leigh RN) 0922 [...] PRN, Starting on Sat06/21/23 at 1014, Until Sat08/22/23 at 1315, Low Blood Sugar, Routine docusate sodium (COLACE) capsule 100 mg 100 mg, oral, 2 TIMES DAILY PRN, Starting on Sat08/09/23 at 1015, Until Sat08/22/23 at 1314, Constipation, Routine glucagon injection 1 mg 1 mg, intramuscular, As needed, Starting on Sat06/21/23 at 1014, Until Sat08/22/23 at 1315, Low Blood Sugar, Routine ipratropium-albuteroL (DUONEB) 0.5 mg-3 mg(2.5 mg base)/3 mL nebulizer solution 3 mL 3 mL, nebulization, EVERY 4 HOURS PRN, Starting on Sat07/14/23 at 1600, Until Sat08/22/23 at 1314, Wheezing, Routine LORazepam (ATIVAN) tablet 0.5 mg(Linked Group 1) 0.5 mg, oral, DAILY PRN, Starting on Sat08/02/23 at 1642, Until Sat08/22/23 at 1314, Anxiety, Routine naloxone (NARCAN) injection 0.1 mg 0.1 mg, intravenous, PRN, Starting on Sat06/14/23 at 0026, Until Sat08/22/23 at 1315, Opioid Reversal, Routine oxyCODONE (ROXICODONE) immediate release tablet 10 mg(Linked Group 2) 10 mg, oral, EVERY 4 HOURS PRN, Starting on Sat08/04/23 at 0639, Until Sat08/22/23 at 1314, Pain, Routine 0056 (Given - Provider: Stan Leigh RN)0546 (Given - Provider: Stan Leigh RN)1200 (See Alternative - Provider: Siri Vásquez RN)205 (Given - Provider: Stan Leigh RN) 0227 (Given - Provider: Stan Leigh RN)0823 (Given - Provider: Parisa Bowman RN)1214 (Given - Provider: Parisa Bowman RN)1734 (Given - Provider: Parisa Bowman RN)2148 (Given - Provider: Stan Leigh RN) 0415 (Given - Provider: Stan Leigh RN)0922 (Given - Provider: Parisa Bowman RN) oxyCODONE (ROXICODONE) immediate release tablet 5 mg(Linked Group 2) 5 mg, oral, EVERY 4 HOURS PRN, Starting on 08/04/23 at 0639, Until Dina 08/22/23 at 1314, Pain, Routine 0056 (See Alternative - Provider: Stan Leigh RN)0546 (See Alternative - Provider: Stan Leigh RN)1200 (Given - Provider: Siri Vásquez RN)2053 (See Alternative - Provider: Stan Leigh RN) 0227 (See Alternative - Provider: Stan Leigh RN)0823 (See Alternative - Provider: Parisa Bowman RN)1214 (See Alternative - Provider: Parisa Bowman RN)1734 (See Alternative - Provider: Parisa Bowman RN)2148 (See Alternative - Provider: Stan Leigh RN) 0415 (See Alternative - Provider: Stan Leigh RN)0922 [...] 1 07/31/2023 sodium chloride 0.9 % irrigation 4 07/31/19 24 06/14/2023 lactulose (CHRONULAC) 20 gra m/30 mL solution [...] tablet 20 mg 1 polyethylene glycol 3350 (DE RALAX) packet 17 g 3 07/02/2023 06/15/2023 QUEtiapine (SEROQUEL) tablet 25 mg 1 2023 lewiphzo-izz-mcyk fum-folic ac 7.5 mg iron-400 mcg tablet [...] 06/23/2023 LORazepam (ATIVAN) injection 1 mg 2 024 06/20/2023 promote 4 06/23/2023 06/16/2023 cloNIDine [...] 06/14/2023 glucagon injection 1 mg 4 06/21/2023 0410/2023 insulin glargine injection pen 10 Units 1 [...] 06/18/2023 06/16/2023 peptamen intense VHP 2 06/18/2023 024 phenylephrine-lidocaine 0.25 %-3 % (CO-PHENYLCAINE) topical solution [...] 2 05/27 methocarbamoL (ROBAXIN) tablet 750 mg norepinephrine (LEVOPHED) 8 mg in NS 250 mL infusion 2 06/15/2023 OLANZapine (ZYPREXA) tablet 10 mg 1 OLANZapine (ZYPREXA) tablet 5 mg 2 06/15/19 oxyCODONE (ROXICODONE) immed iate release tablet 5-10 mg 1 06/15/2023 sodium bicarbonate 8.4 % injection 100 mEq 1 06/15/2023 vancomycin 1,500 mg central line syringe 1 06/15/2023 alteplase (CATHFLO ACTIVASE) injection 2 mg 1 06/14/2023 calcium GLUconate 100 mg/mL (10%) injection 2,000 mg 1 06/14/2023 calcium GLUconate 3,000 mg i n dextrose 5% (D5W) 100 mL IVPB 1 06/14/2023 HYDROmorphone (PF) (DILAUDID ) 0.5 mg/0.5 mL syringe 0.25-0.5 mg 3 06/14/2023 06/13/2023 hydrOXYzine (ATARAX) tablet 12.5 mg 1 06/13 lidocaine (PF) 10 mg/mL (1 % ) injection 2 mg 1 06/14/2023 lidocaine (PF) 10 mg/mL (1 % ) injection 5 mg 1 06/14/2023 meropenem (MERREM) 1 g in so dium chloride (NS DDDS) 0.9% 50 ml IVPB 1 06/14/2023 naloxone (NARCAN) injection 0.1 mg 1 2023 sodium chloride 0.9 % BOLUS 500 mL 1 2023 sodium chloride 3 % infusion 1 06/14/2023 vancomycin (VANCOCIN) 1,250 mg in sodium chloride (NS) 0.9 % 250 mL IVPB 2 06/14/2023 cefepime (MAXIPIME) 2,000 mg in sodium chloride (NS MBP) 50 mL IVPB 1 06/13/2023 clindamycin in dextrose 5 % (CLEOCIN) IVPB 900 mg 1 06/13/2023 electrolyte-A (PLASMALYTE-A) solution 1 vancomycin (VANCOCIN) 20 mg/ kg in sodium [...] DRY POWDERED OR METERED DOSE INHALER 1 05/2023 EXTUBATION 3 06/17/2023 06/15/2023 BANKING ANALYST Count Last Ordered Date First Orde red Date BANKING ANALYST CLINICAL SWALLOW EVALUATION AND TREAT 1 06/23/2023 IV Count Last Ordered Date First Orde red Date IV REQUEST 13 08/04/2023 06/14/2023 PICC DIRECTOR MEDICAL SAFETY 1 06/14/2023 Admission Count Last Ordered Date [...] 08/09/2023 documented in this encounter Care Teams Kitchen Lead Relationship Specialty Start Date End Date Unknown, Provider, PCP - General 06/13/23 documented as of this encounter
--- OUTSIDE RECORDS SUMMARY | 2023-09-11 15:43 | XMS_ITS | Encounter Summary ---
Author Organization [facility] Address [facility] [place] [address] Care Team Providers Care Crew Chief Name Role Phone Unknown Primary Care Provider Unavailabl e Reason for Referral * Consultation (Routine) - Closed Specialty Diagnoses / Procedures Referred By Jaja auguste Referred To Contact Otolaryngology Diagnoses Unspecified cholesteatoma, right ear Other specified disorders of eustachian tube, bilateral Mixed conductive and sensorineural hearing loss, bilateral Gage Weston MD [address] [place] [address] [place] [address] Atif Martinez MD [facility] [place] [address] Referral ID Status Reason Start Date Expiration Date V isits Requested Visits Authorized [id number] Closed Consult, Test & Treat 09/29/2021 09/29/2022 1 1 Encounter Details Date Type Department Care Team (Latest Contact Info) Description 09/29/2021 Transcribe Orders eDH Incoming Referrals [phone] Gage Weston MD [address] [place] [address] [address] [place], [place] [id number] Unspecified cholesteatoma, right ear; Other specified disorders of eustachian tube, bilateral; Mixed conductive and sensorineural hearing loss, bilateral Social History Tobacco Use Types Packs/Day Years Used Date Smoking Tobacco: Every Day Cigarettes Smokeless Tobacco: Never Alcohol Use Standard Drinks/Week Comments Yes 1 (1 standard drink = 0.6 oz pur e alcohol) occassionally Sex and Gender Information Value Date Recorded Sex Assigned at Not on file Gender Identity Not on file Sexual Orientation Not on file documented as of this encounter Plan of Treatment Scheduled Referrals Name Type Priority Associated Diagnoses Orde r Schedule Referral to ENT Outpatient Referral Routine Unspecified cholesteatoma, right ear Other specified disorders of eustachian tube, bilateral Mixed conductive and sensorineural hearing loss, bilateral Ordered: 09/29/2021 documented as of this encounter Visit Diagnoses Diagnosis Unspecified cholesteatoma, right ear Other specified disorders of eustachian tube, bilateral Mixed conductive and sensorineural hearing loss, bilateral Mixed hearing loss, bilateral documented in this encounter Care Teams Crew Chief Relationship Specialty Start Date End Date Unknown None PCP - General 04/23/16 documented as of this encounter
--- OUTSIDE RECORDS SUMMARY | 2023-09-11 15:43 | XMS_ITS | Encounter Summary ---
Author Organization [facility] Address [facility] [place] [address] Care Team Providers Care Health Sanitarian Name Role Phone GarciaMey clay [employer] Primary Care Provider [phone]- [phone] Encounter Details Date Type Department Care Team (Late st Contact Info) Description 04/18/2015 Telephone [place] [address] Hoang Perez MD [facility] DR ORAL & [place] [address] Social History Tobacco Use Types Packs/Day Years Used Date Smoking Tobacco: Every Day Cigarettes Smokeless Tobacco: Never Alcohol Use Standard Drinks/Week Comments Yes 1 (1 standard drink = 0.6 oz pur e alcohol) occassionally Sex and Gender Information Value Date Recorded Sex Assigned at Not on file Gender Identity Not on file Sexual Orientation Not on file documented as of this encounter Miscellaneous Notes * Telephone Encounter - Cathi Nicholas - 04/20/2015 12:52 PM EST Jennifer called stating that she is out of the percocet which was prescribed to her post-op on Saturday after debridement and biopsy of the left mandible. She is requesting a refill of this prescription. Dr. Perez has approved the refill and will have it entered by a resident as he is in the OR today. documented in this encounter Plan of Treatment Not on file documented as of this encounter Visit Diagnoses Not on filedocumented in this encounter Care Teams Health Sanitarian Relationship Specialty Start Date End Date Mey Garcia APRN PCP - General 11/25/14 04/22/16 documented as of this encounter
--- OUTSIDE RECORDS SUMMARY | 2023-09-11 15:43 | XMS_ITS | Encounter Summary ---
Author Organization [facility] Address [facility] [place] [address] Care Team Providers Care Throw Out Clerk Name Role Phone GarciaMey APRN Primary Care Provider [phone]- [phone] Reason for Visit * Reason Comments Follow-up s/p debridement of m andible 04/15/15 Encounter Details Date Type Department Care Team (Late st Contact Info) Description 05/05/2015 2:00 PM EST Office Visit [place] [address] Hoang Perez MD [facility] DR ORAL & [place] [address] Jaw pain Social History Tobacco Use Types Packs/Day Years Used Date Smoking Tobacco: Every Day Cigarettes Smokeless Tobacco: Never Alcohol Use Standard Drinks/Week Comments Yes 1 (1 standard drink = 0.6 oz pur e alcohol) occassionally Sex and Gender Information Value Date Recorded Sex Assigned at Not on file Gender Identity Not on file Sexual Orientation Not on file documented as of this encounter Progress Notes * Hoang Perez MD - 05/05/2015 1:59 PM EST Oral & Maxillofacial Surgery Lesion Follow Up Jennifer Kalyn James returns for follow up of possible osteomyelitis of the left mandible s/p debridement 04/15/15. DIAGNOSIS A - Left mandibular ridge, excision: Squamous mucosa, soft tissue and fragments of lamellar bone; no evidence of osteomyelitis. B - Bone core left mandible, excision: Soft tissue and fragments of lamellar bone; no evidence of osteomyelitis. C - Left mandibular ridge #2, excision: Soft tissue and fragments of lamellar bone; no evidence of osteomyelitis. D - Fistual tract left side, resection: Skin with associated subcutaneous chronic inflammation and edema, soft tissue and bone fragment. E - Periosteum, excision: Benign fibrous tissue. Interval History: Jennifer was questioned with regards to new lumps or bumps,intra or extraoral drainage, difficulty chewing or swallowing, oral bleeding, dysarthria or altered oral sensation from prior examination. Weight and appetite were evaluated and pertinent interval changes include: ?? Initial post-op recovery was quite painful; required a refill of her percocet; pain is much better now ?? Continues with soft diet ?? Continues to rinse with salt water 3-4 times daily ?? Down to half a pack of cigarettes daily ?? Pulled extraoral stitch out on Saturday which prompted a greenish discharge from the tract; no other drainage noted during the recovery process ?? No redness or swelling noted ?? Has not worn her lower denture since surgery but would like to see if she can resume this today ?? Diminished hearing Patient Active Problem List Diagnosis Code ??? Pain in lower jaw R68.84 ??? Essential hypertension I10 ??? 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 Tobacco use Z72.0 ??? Chronic osteomyelitis of mandible M27.2 Clinical Examination: Visual and bimanual examination of the head and neck was conducted. Specific attention was given to surgical or pathologically involved sites, symmetry of architecture and function, TMJ function and range of jaw motion, tongue surface appearance and consistency, floor of mouth, labial and buccal mucosa, hard and soft palate and oropharynx. Dentition and supporting structuresas well as occlusion were examined where appropriate. The neck was examined with attention to muscular, vascular and lymphatic anatomy. Pertinent findings include: ?? Intraoral incision over the left crest of ridge appears to be healing well ?? Buccal mucosa appears intact at the depth of the vestibule adjacent to the mental nerve ?? Maxillary denture in place ?? No obvious drainage or fistula intraorally ?? Tethering at the mental nerve region ?? No evidence of marginal mandibular nerve weakness ?? No cervical adenopathy Pertinent imaging studies: Previous panorex radiograph was reviewed. Impression: No evidence of osteomyelitis or foreign body on histology; continues to smoke but has cut back; facial dimple is smaller Recommendations and Plan: Gentle massage extraorally along the inferior border of the mandible to increase blood flow. Minimize smoking to allow for healing. Follow up in one month. Watch for any evidence of drainage; avoid denture for an additional month; no need for antibiotics at present. Time Statement: Fifteen minutes was spent with the patient greater than 12 minutes of which involved direct discussion with the patient reviewing the findings on examination and the implications for treatment or continued observation. Radiographs were reviewed where appropriate and questions regarding today's visit were answered. The patient was reminded to contact us if there were any further concerns. Cathi Romano, CROWNING HAMMER OPERATOR II, am acting as scribe for Dr. Perez. All work documented was performed byDr. Perez. Hoang Romano, performed the above scribed service and agree with the accuracy of the note. documented in this encounter Plan of Treatment Not on file documented as of this encounter Visit Diagnoses Diagnosis Jaw pain documented in this encounter Care Teams Throw Out Clerk Relationship Specialty Start Date End Date Mey Garcia APRN PCP - General 11/25/14 04/22/16 documented as of this encounter
--- OUTSIDE RECORDS SUMMARY | 2023-09-11 15:43 | XMS_ITS | Encounter Summary ---
Author Organization [facility] Address [address] [place] [address] Care Team Providers Care Unionmelt Operator Name Role Phone Unavailable Primary Care Provider Unavailabl e Reason for Referral * (Routine/Next Available) - Receiving Office to Obtain Authorization Specialty Diagnoses / Procedures Referred By Jaja auguste Referred To Contact Procedures CT OUTSIDE IMAGES PELVIS Unknown, ProviderMD Referral ID Status Reason Start Date Expiration Date Visits Requested Visits Authorized [id number] Receiving Office to Obtain Authorization 06/13/2023 1 1 Reason for Visit * (Routine/Next Available) - Receiving Office to Obtain Authorization Specialty Diagnoses / Procedures Referred By Jaja auguste Referred To Contact Procedures CT OUTSIDE IMAGES PELVIS Unknown, MD No Referral ID Status Reason Start Date Expiration Date Visits Requested Visits Authorized [id number] Receiving Office to Obtain Authorization 06/13/2023 1 1 Encounter Details Date Type Department Care Team (Latest Contact Info) Description 06/12/2023 - 06/12/2023 23:59 EDT Hospital Encounter [facility] [place] Discharge Disposition: Home or Self Care Social History Tobacco Use Types Packs/Day Years Used Date Smoking Tobacco: Never Assessed Sex and Gender Information Value Date Recorded Sex Assigned at Not on file Gender Identity Female 06/15/2023 0:35 EDT Sexual Orientation Not on file documented as of this encounter Discharge Disposition Disposition Code Departure Means Destination Home or Self Care documented in this encounter Plan of Treatment Not on file documented as of this encounter Procedures Procedure Name Priority Date/Time Associated Diagnosis Comments CT OUTSIDE IMAGES PELVIS Routine 06/12/2023 16:49 EDT documented in this encounter Results * CT OUTSIDE IMAGES PELVIS (06/12/2023 16:49 EDT) Narrative 06/13/2023 16:49 EDT This is a non-reportable exam. Provider Unknown MD RODRIGUEZ OTHER IMAGING OR DERABLES documented in this encounter Visit Diagnoses Not on filedocumented in this encounter
--- OUTSIDE RECORDS SUMMARY | 2023-09-11 15:43 | XMS_ITS | Encounter Summary ---
Author Organization [facility] Address [facility] [place] [address] Care Team Providers Care Dining Room Attendant Cafeteria Name Role Phone Mey Garcia APRN Primary Care Provider [phone]- [phone] Encounter Details Date Type Department Care Team (Late st Contact Info) Description 04/19/2015 Telephone [place] [phone] Inés Oliveira CMA Social History Tobacco Use Types Packs/Day Years [...] encounter Miscellaneous Notes * Telephone Encounter - Inés Oliveira CMA - 04/19/2015 8:55 AM EST Jennifer called us to see if her PCP could write a prescription for her. She is unable to get a ride to [place] to fern picker the prescription we have written for her today. She was advise her PCP may call us for verification. documented in this encounter Plan of Treatment Not on file documented as of this encounter Visit Diagnoses Not on filedocumented in this encounter Care Teams Dining Room Attendant Cafeteria Relationship Specialty Start Date End Date Mey Garcia APRN PCP - General 11/25/14 04/22/16 documented as of this encounter
--- OUTSIDE RECORDS SUMMARY | 2023-09-11 15:43 | XMS_ITS | Encounter Summary ---
Author Organization [facility] Address [address] [place] [address] Care Team Providers Care Accordion Maker Name Role Phone Unknown, Provider Primary Care Provider [phone] Reason for Visit * Auth/Cert (Routine) Specialty Diagnoses / Procedures Referred By Jaja auguste Referred To Contact Diagnoses Necrotizing fasciitis ([facility]) necrotizing fasciitis Referral ID Status Reason Start Date Expiration Date Visits Re quested Visits Authorized [id number] 1 1 Encounter Details Date Type Department Care Team (Late st Contact Info) Description 06/17/2023 13:54 EDT Anesthesia Event [facility] OR [address] [place], [place] [id number] Edgar Alvarez MD [address] [phone] Claire Ocampo CRNA [address] [phone] Anesthesia Record Procedure Summary Procedure Name Responsible Anesthesiologist Anesthesia Start Time Anesthesia Stop Time INCISION AND DRAINAGE, ABSCESS, ISCHIORECTAL OR PERIRECTAL Edgar Alvarez MD 06/17/23 1354 06/17/23 1511 Events Date Time Event Comment 06/17/2023 1354 An Start The patient was re-evaluated immediately before moderate or deep sedation use, before anesthesia induction, or before the anesthesia procedure. 1354 An Start Data 1404 An Induction The patient was reevaluated immediately before moderate or deep sedation use and before anesthesia induction. 1408 Anesthesia Ready 1503 an stop data 1510 Handoff to RN I completed my handoff to the receiving nurse during which we: 1. Identified the patient 2. Identified the responsible provider 3. Reviewed the pertinent medical history 4. Discussed the surgical course 5. Reviewed intra-op anesthesia management and issues during anesthesia 6. Set expectations for post-procedure period 7. Allowed opportunity for questions and acknowledgement of understanding. 1511 An Stop Meds Name Total fentanyl citrate (PF) injection 200 mcg glycopyrrolate pre-filled syringe 0.3 mg midazolam (versed) 1 mg/mL 2 mL vial 2 m g neostigmine (BLOXIVERZ) injection 1 mg/m L 3 mL syringe 2 mg rocuronium 10 mg/mL vial 50 mg lactated ringers (LR) infusion 400 mL * Agents Name Insp Sevoflurane Exp [...] Juliet Gomez, KIESHA 06/24/23 0400 by Grace Cruz, KIESHA Non-Surgical Airway 06/16/23; 0835; ETT - cuffed; 7.5; Colorimetric EtCO2 device, Auscultation; 06/17/23; 203406/16/23 0835 by Teresita Alegre RT 06/17/232034 by Robles Dawn CRNA NG/OG Tube 06/16/23; 0850; Orogastric; 14 fr; Center mouth; 06/17/23; 2100 06/16/23 0850 by Danya Vang RN 06/17/23 2100 by Claus Gillespie, KIESHA CVC Single Lumen 06/16/23; 1104; Introducer; Right; Subclavian vein; At bedside by Provider; 6; 06/22/23; 1000; Per order; No complications, Catheter intact, Dressing applied 06/16/23 1104 by Danya Vang, KIESHA 06/22/23 1000 by Shelly Gaytan, KIESHA Peripheral IV 06/17/23; 0825; 05/27 11/18; 22; 1.25; B Kohury Introcan; Anterior, Left; Forearm; Inserted by RN, Ultrasound Guided; 1; None; 2% Chlorhexidine with IPA; 06/24/23; 0400; Removed unobserved; No complications 06/17/23 0825 by Geovanny Tavarez, KIESHA 06/24/23 0400 by Grace Cruz, KIESHA documented in this encounter Social History [...] in a detention (including now)? No 06/19/2023 Sex and Gender Information Value Date Recorded Sex Assigned at Not on file Gender Identity Female 06/15/2023 0:35 EDT Sexual Orientation Not on file documented as of this encounter OR Notes * Anesthesia Preprocedure Evaluation - Robles Dawn CRNA - 06/17/2023 1531 EDT Anesthesia Preprocedure Evaluation Patient Medical History, including Anesthesia History reviewed. Chart and Nursing Notes reviewed, including NPO status and Medication History. Additional ROS/History Findings: Allergies Allergen Reactions Aspirin Hives Cymbalta [Duloxetine] Other (See Comments) Depression, suicidal ideation Lyrica [Pregabalin] Nausea And Vomiting Penicillins Hives Review of Systems Unable to perform ROS: Intubated No past medical history on file. Relevant Problems No relevant active problems Physical Exam Airway Mallampati: unable to assess Cardiovascular Rhythm: regular Rate: normal Dental Pulmonary Breath sounds clear to auscultation Abdominal Anesthesia Plan ASA 4 Anesthesia Type - general PAT Note Notes from 05/18/23 through 06/17/23 No notes of this type exist for this encounter. * Anesthesia Postprocedure Evaluation - Robles Dawn CRNA - 06/17/2023 1531 EDT Patient: Jennifer James Vital signs were reviewed with the recovery nurse. Complete vitals history is available in the [facility]. Vitals Value Taken Time BP 129/65 06/17/23 1510 Temp 36.2 ??C (97.1 ??F) 06/17/23 1530 Resp 17 06/17/23 1531 Pulse From Oximetry 70 BPM 06/17/23 1531 SpO2 97 % 06/17/23 1531 Heart Rate 70 BPM 06/17/23 1531 Vitals shown include unvalidated device data. Last Pain Score - Numeric Pain Level (Scale 1-10): 0 Type of Anesthesia - general Anesthesia Post Evaluation Post-procedure vitals reviewed and are stable. Level of consciousness: sedated Temperature status: normothermia Respiratory status: ventilator Cardiovascular status: appropriate for condition Hydration status: adequate Nausea/Vomiting: none Pain management: adequate Post-Op Assessment: patient tolerated procedure well with no complications Patient participation: unable to participate due to sedation Disposition: inpatient Anesthesia Complications: No apparent anesthesia complications documented in this encounter Plan of Treatment Not on file documented as of this encounter Visit Diagnoses Not on filedocumented in this encounter Administered Medications Inactive Administered Medications - up to 3 most recent administrations Medication Order MAR Action Action Date Dose Rate Site fentaNYL citrate (PF) injection intravenous, PRN, Starting on Sat06/17/23 at 1357, Until Sat06/17/23 at 1531, Routine, Anesthesia Intraprocedure Given 06/17/2023 14:50 EDT 100 mcg Given 06/17/2023 13:57 EDT 100 mcg glycopyrrolate (PF) (ROBINUL) 0.4 mg/2 mL (0.2 mg/mL) injection intravenous, PRN, Starting on Sat06/17/23 at 1450, Until Sat06/17/23 at 1531, Routine, Anesthesia Intraprocedure Given 06/17/2023 14:50 EDT 0.3 mg lactated ringers (LR) infusion intravenous, FA IP EQF CONTINUOUS PRN FOR ONE STEP MEDS, Starting on Sat06/17/23 at 1354, Until Sat06/17/23 at 1531, Routine, Anesthesia Intraprocedure New Bag 06/17/2023 13:54 EDT midazolam (PF) (VERSED) injection intravenous, PRN, Starting on Sat06/17/23 at 1450, Until Sat06/17/23 at 1531, Routine, Anesthesia Intraprocedure Given 06/17/2023 14:50 EDT 2 mg neostigmine methylsulfate (BLOXIVERZ) injection intravenous, PRN, Starting on Sat06/17/23 at 1450, Until Sat06/17/23 at 1531, Routine, Anesthesia Intraprocedure Given 06/17/2023 14:50 EDT 2 mg rocuronium (ZEMURON) injection intravenous, PRN, Starting on Sat06/17/23 at 1405, Until Sat06/17/23 at 1531, Routine, Anesthesia Intraprocedure Given 06/17/2023 14:05 EDT 50 mg documented in this encounter Care Teams Accordion Maker Relationship Specialty Start Date End Date Unknown, Provider, PCP - General 06/13/23 documented as of this encounter
--- OUTSIDE RECORDS SUMMARY | 2023-09-11 15:43 | XMS_ITS | Encounter Summary ---
Author Organization [facility] Address [facility] [place] [address] Care Team Providers Care Data Entry Operator Name Role Phone Unknown Primary Care Provider Unavailabl e Reason for Referral * Consultation (Routine) - Duplicate Referral Specialty Diagnoses / Procedures Referred By Jaja auguste Referred To Contact Otolaryngology Diagnoses Unspecified cholesteatoma, right ear Other specified disorders of eustachian tube, bilateral Mixed conductive and sensorineural hearing loss, bilateral Gage Weston MD [address] [place] [address] [place] [address] Atif Martinez MD [facility] [place] [address] Referral ID Status Reason Start Date Expiration Date Visits Requested Visits Authorized [id number] Duplicate Referral Consult, Test & Treat 2 01/04/2023 1 1 Encounter Details Date Type Department Care Team (Latest Contact Info) Description 01/04/2022 Transcribe Orders eDH Incoming Referrals [phone] Gage Weston MD [address] [place] [address] [address] [place], [place] [phone] Unspecified cholesteatoma, right ear; Other specified disorders [...] conductive and sensorineural hearing loss, bilateral Ordered: 01/04/2022 documented as of this encounter Visit Diagnoses Diagnosis Unspecified cholesteatoma, right ear Other specified disorders of eustachian tube, bilateral Mixed conductive and sensorineural hearing loss, bilateral Mixed hearing loss, bilateral documented in this encounter Care Teams Data Entry Operator Relationship Specialty Start Date End Date Unknown None PCP - General 04/23/16 documented as of this encounter
--- OUTSIDE RECORDS SUMMARY | 2023-09-11 15:43 | XMS_ITS | Encounter Summary ---
Author Organization [facility] Address [address] [place] [address] Care Team Providers Care City Distribution Clerk Name Role Phone Unknown, Provider Primary Care Provider [phone] Reason for Visit * Auth/Cert (Routine) Specialty Diagnoses / Procedures Referred By Jaja auguste Referred To Contact Diagnoses Necrotizing fasciitis ([facility]) necrotizing fasciitis Referral ID Status Reason Start Date Expiration Date Visits Re quested Visits Authorized [id number] 1 1 Encounter Details Date Type Department Care Team ([facility] st Contact Info) Description 06/14/2023 21:21 EDT Anesthesia Event [facility] OR [address] [place], [place] [id number] Terrence Branham MD [address] [phone] Reese Franco CRNA [address] [phone] Anesthesia Record Procedure Summary Procedure Name Responsible Anesthesiologist Anesthesia Start Time Anesthesia Stop Time NEGATIVE PRESSURE WOUND THERAPY WITH DISPOSIBLE EQUIPMENT (Buttocks) Terrence Branham MD 06/14/23212006/14/23 2358 Events Date Time Event Comment 06/14/20232120 An Start The patient was re-evaluated immediately before moderate or deep sedation use, before anesthesia induction, or before the anesthesia procedure. 2120 An Start Data 2133 An Induction The patient was reevaluated immediately before moderate or deep sedation use and before anesthesia induction. 2135 An Induction The patient was reevaluated immediately before moderate or deep sedation use and before anesthesia induction. 2135 An Intubation 2135 Anesthesia Ready 2202 Olu FSBG 176 2206 Olu POC HB 7.8 2240 Primary Handoff Primary Anes thesia Provider relieved. Anesthesia care handoff involved joint review of the surgical site and planned procedure, significant past medical history, intraoperative course including but not limited to airway management, anesthetic maintenance, monitors, IV access, fluid management, and postoperative plan. 2343 an stop data 2357 Handoff to RN I completed my handoff to the receiving nurse during which we: 1. Identified the patient 2. Identified the responsible provider 3. Reviewed the pertinent medical history 4. Discussed the surgical course 5. Reviewed intra-op anesthesia management and issues during anesthesia 6. Set expectations for post-procedure period 7. Allowed opportunity for questions and acknowledgement of understanding. 2357 An Stop Meds Name Total fentanyl citrate (PF) injection 100 mcg glycopyrrolate pre-filled syringe 0.2 mg ketAMINE 5 mL prefilled syringe 50 mg lidocaine 2% (PF) injection glass vial 8 0 mg phenylephrine 1 mg/10 mL pre -filled SYRINGE (Bolus or short duration infusion) 4,480 mcg propOFol (DIPRIVAN) injection 122,408 mc g rocuronium 10 mg/mL vial 60 mg ceFAZolin injection 2,000 mg sodium chloride 0.9 % (NS) infusion 0 mL NaCl 0.9% (NS) infusion 1,000 mL * Agents Name Insp Sevoflurane Exp Sevoflurane O2 N2O Air * Blood Name Total TRANSFUSE RED BLOOD CELLS 579 mL Lines, Drains, and Airways Type Details Placement Removal Wound 06/14/23 (came w/ on admission); 1000 (came w/ on admission); Buttock, Rectum 06/14/23 1000 by Danya Vang, RN Urethral Catheter 06/13/23; Patient ar rived with LDA; Critically ill and the need for every 1-2 hour output measurements, Assist in healing open sacral or perineal wound healing in incontinent patient; 07/15/23; Per protocol 06/13/23 0000 by Harper Hutchinson RN 07/15/23 0000 by Paz Barth RN Rectal Tube 06/13/23; Patient ar rived with LDA; With balloon; 07/04/23; (1999 Rectal tube fully inflated and out upon assessment) 06/13/23 0000 by Harper Hutchinson RN 07/04/23 0000 by Karley Patton RN Peripheral IV 06/14/23; 0157; 05/27 08/18; 20; 2.5; B Khoury Introcan; Anterior, Left; Upper Arm; Inserted by RN, Ultrasound Guided; 1; None; 2% Chlorhexidine with IPA; 06/24/23; 0400; Removed unobserved; No complications 06/14/23 0157 by Juliet Gomez RN 06/24/23 0400 by Grace Cruz RN Peripheral IV 06/14/23; 1441; 05/27 08/18; 20; 1.75; B Khoury Introcan; Anterior, Right; Forearm; Inserted by RN, Ultrasound Guided; 1; None; 2% Chlorhexidine with IPA; 06/17/23; 0401; Leaking; Catheter intact, No complications 06/14/23 1441 by Luis Traylor RN 06/17/23 0401 by Claus Gillespie RN Non-Surgical Airway 06/14/23; 2203 (gia oleary via procedure documentation); 06/15/23; 0910; End of therapy 06/14/23 2203 by Reese Franco CRNA 06/15/23 0910 by Teresita Alegre RT NG/OG Tube 06/15/23; 0000; Inse rted by RN; Orogastric; Center mouth; Yes; 06/15/23; 0830 06/15/23 0000 by Claus Gillespie RN 06/15/23 0830 by Lisbeth Sheridan RN documented in this encounter Social History Tobacco Use Types Packs/Day Years Used Date Smoking Tobacco: Never Assessed Sex and Gender Information Value Date Recorded Sex Assigned at Not on file Gender Identity Female 06/15/2023 0:35 EDT Sexual Orientation Not on file documented as of this encounter OR Notes * Anesthesia Postprocedure Evaluation - Arlin Hoang MD - 06/14/2023 2358 EDT Patient: Jennifer James Vital signs were reviewed with the recovery nurse. Complete vitals history is available in the Epicflowsheets. Vitals Value Taken Time BP 134/64 04/19/24 2354 Temp 36.6 ??C (97.9 ??F) 06/14/232353 Resp 23 06/14/232357 Pulse From Oximetry 86 BPM 06/14/232357 SpO2 100 % 06/14/232357 Heart Rate 87 BPM 06/14/232357 Vitals shown include unvalidated device data. Last Pain Score - Numeric Pain Level (Scale 1-10): 5 Type of Anesthesia - general Anesthesia Post Evaluation Post-procedure vitals reviewed and are stable. Level of consciousness: sedated Temperature status: normothermia Respiratory status: ventilator Cardiovascular status: acceptable and within patient's normal range Hydration status: adequate Nausea/Vomiting: none Pain management: adequate Post-Op Assessment: patient tolerated procedure well with no complications Patient participation: unable to participate due to sedation Disposition: inpatient Anesthesia Complications: No apparent anesthesia complications * Anesthesia Procedure Notes - Reese Franco CRNA - 06/14/20232202 EDT Associated Order(s): Airway Airway Date/Time: 06/14/2023 22:03 Urgency: elective Airway not difficult General Information and Staff Patient location during procedure: OR Performed: anesthesiologist Performed by: Reese Franco CRNA Authorized by: Terrence Branham MD Indications and Patient Condition Indications for [...] approach: 1 * Anesthesia Preprocedure Evaluation - Terrence Branham MD - 06/14/20232055 EDT Anesthesia Preprocedure Evaluation 52 y.o. female with a history of HTN and T2DM who presents as a transfer from [facility] with necrotizing fasciitis. She states [...] the OSH and was then transferred to [facility] for definitive management. She currently rates her pain at a 9/10. She states her PMH is significant for HTN and DM2, but that she takes no medications. She states she controls her diabetes with diet. Patient Medical History, including Anesthesia History reviewed. Chart and Nursing Notes reviewed, including NPO status and Medication History. Additional ROS/History Findings: Allergies Allergen Reactions Aspirin Hives Cymbalta [Duloxetine] Other (See Comments) Depression, suicidal ideation Lyrica [Pregabalin] Nausea And Vomiting Penicillins Hives Review of Systems Cardiovascular: HTN Genitourinary: Hyponatremia Endo/Heme/Allergies: Type 2 DM, Diet controlled Acute blood loss anemia-receiving transfusions now. Lab Results Component Value Date HGBA1C 8.2 (H) 06/14/2023 Lab Results Component Value Date NA 121 (LL) 06/14/2023 K 4.2 06/14/2023 CL 98 06/14/2023 CO2 16 (L) 06/14/2023 Lab Results Component Value Date BUN 41 (H) 06/14/2023 Lab Results Component Value Date CREATININE 0.98 06/14/2023 Lab Results Component Value Date WBC 31.96 (H) 06/14/2023 HGB 7.1 (L) 06/14/2023 HCT 19.8 (LL) 06/14/2023 MCV 87 06/14/2023 PLT 354 06/14/2023 PMHx: HTN DM type 2 Newly diagnosed anemia and hyponatremia. Relevant Problems No relevant active problems Physical Exam Airway Mallampati: II Cardiovascular Rhythm: regular Rate: normal Dental (+) upper dentures, lower dentures Pulmonary Breath sounds clear to auscultation Abdominal Anesthesia Plan ASA 3 - emergent Anesthesia Type - general, to include intravenous induction. Anesthesia plan and risks discussed. Informed consent obtained from patient. Use of blood products discussed with patient who consented to blood products. Specific risks discussed were bleeding, dental injury, blindness, , myocardial infarction, stroke, vomiting and nausea. Code status discussed? No The preoperative history and physical which was performed within 30 days of this procedure, has been reviewed and the clinically appropriate elements of the physical examination have been repeated. There are no changes to the documented history and physical or, if so, such changes are documented inthis note PAT Note Notes from 05/15/23 through 06/14/23 No notes of this type exist for this encounter. documented in this encounter Plan of Treatment Not on file documented as of this encounter Procedures Procedure Name Priority Date/Time Associated Diagnosis Comments ANESTHESIA INTUBATION Routine 06/14/2023 22:03 EDT documented in this encounter Results * TX AN ELECTIVE ENDOTRACHEAL AIRWAY (06/14/2023 22:03 EDT) [...] 1 Terrence Branham MD ANESTHESIA ORDERABLE S documented in this encounter Visit Diagnoses Not on filedocumented in this encounter Administered Medications Inactive Administered Medications - up to 3 most recent administrations Medication Order MAR Action Action Date Dose Rate Site ceFAZolin (ANCEF) injection intravenous, PRN, Starting on Sat06/14/23 at 2202, Until Sat06/14/23 at 2358, Routine, Anesthesia Intraprocedure Given 06/14/2023 22:02 EDT 2,000 mg fentaNYL citrate (PF) injection intravenous, PRN, Starting on Sat06/14/23 at 2130, Until Sat06/14/23 at 2358, Routine, Anesthesia Intraprocedure Given 06/14/2023 21:30 EDT 100 mcg glycopyrrolate (PF) (ROBINUL) 0.4 mg/2 mL (0.2 mg/mL) injection intravenous, PRN, Starting on Sat06/14/23 at 2213, Until Sat06/14/23 at 2358, Routine, Anesthesia Intraprocedure Given 06/14/2023 22:13 EDT 0.2 mg ketAMINE in NaCl, iso-osmotic (KETALAR) 50 mg/5 mL (10 mg/mL) IV injection intravenous, PRN, Starting on Sat06/14/23 at 2130, Until Sat06/14/23 at 2358, Routine, Anesthesia Intraprocedure Given 06/14/2023 21:30 EDT 50 mg lidocaine (PF) 20 mg/mL (2 %) injection intravenous, PRN, Starting on Sat06/14/23 at 2130, Until Sat06/14/23 at 2358, Routine, Anesthesia Intraprocedure Given 06/14/2023 21:30 EDT 80 mg phenylephrine HCl in 0.9% NaCl injection intravenous, FA IP EQF CONTINUOUS PRN FOR ONE STEP MEDS, Starting on Sat06/14/23 at 2152, Until Sat06/14/23 at 2358, Routine, Anesthesia Intraprocedure Restarted 06/14/2023 22:24 EDT 40 mcg/min 24 mL/hr New Bag 06/14/2023 21:52 EDT 40 mcg/min 24 mL/hr propOFol (DIPRIVAN) injection intravenous, PRN, Starting on Sat06/14/23 at 2130, Until Sat06/14/23 at 2358, Routine, Anesthesia Intraprocedure New Bag 06/14/2023 23:37 EDT 40 mcg/kg/min 20.688 mL/hr Given 06/14/2023 21:30 EDT 50 mg rocuronium (ZEMURON) injection intravenous, PRN, Starting on Sat06/14/23 at 2130, Until Sat06/14/23 at 2358, Routine, Anesthesia Intraprocedure Given 06/14/2023 22:48 EDT 10 mg Given 06/14/2023 21:30 EDT 50 mg sodium chloride 0.9 % (NS) infusion at 125 mL/hr, intravenous, CONTINUOUS, Starting on Sat06/14/23 at 0300, Until Sat06/15/23 at 1305, Routine Rate Documented 06/15/2023 11:00 EDT 125 mL/hr Rate Documented 06/15/2023 10:00 EDT 125 mL/hr New Bag 06/15/2023 9:50 EDT 125 mL/hr sodium chloride 0.9 % (NS) infusion intravenous, FA IP EQF CONTINUOUS PRN FOR ONE STEP MEDS, Starting on Sat06/14/23 at 2134, Until Sat06/14/23 at 2358, Routine, Anesthesia Intraprocedure New Bag 06/14/2023 21:34 EDT Transfuse Red Blood Cells Routine, Transfusion-related diagnosis: Anemia, Have you discussed the risks, benefits and alternatives to transfusion therapy along with the likely outcomes of each with the patient or appropriate surrogate decision makers and obtained consent for transfusion? No, emergent need prevented obtaining consent., RBC Indications: Falling HCT w/unstable volume, Indications for irradiated blood products: Not Required, RBC transfusion duration per unit (hrs): JHONATAN New Bag 06/14/2023 22:25 EDT Transfuse Red Blood Cells Routine New Bag 06/14/2023 22:57 EDT documented in this encounter Care Teams City Distribution Clerk Relationship Specialty Start Date End Date Unknown, Provider, PCP - General 06/13/23 documented as of this encounter
--- OUTSIDE RECORDS SUMMARY | 2023-09-11 15:43 | XMS_ITS | Clinical Summary ---
Author Organization [facility] Address [address] [facility] [place] [address] Care Team Providers Care Criminal Justice Program Director Name Role Phone Unknown Primary Care Provider Unavailabl e Allergies Active Allergy Reactions Criticality Noted Date Comments Aspirin CIS - Rash, Headaches Codeine Phosphate CIS - Nausea/Vomiting Duloxetine 11/11/2014 Suicidal Pregabalin Hives 11/11/2014 Penicillins CIS - Rash Medications Medication Sig Dispensed Refills Start Date End Date Status PROAIR HFA 90 mcg/actuation HFA Aerosol Inhaler 0 09/14/2014 Active amLODIPine (NORVASC) 5 mg Tablet 0 09/11/2014 Active FREESTYLE LITE STRIPS Strip 0 09/11/2014 Active cyclobenzaprine (FLEXERIL) 10 mg Tablet 0 09/30/2014 Active FREESTYLE LANCETS 28 gauge Misc 0 09/11/2014 Active mupirocin (BACTROBAN) 2 % Ointment 0 08/11/2014 Active PARoxetine (PAXIL) 30 mg Tablet 0 08/11/2014 Active LANTUS SOLOSTAR Insulin Pen 0 12/03/2014 Active LANTUS Solution 0 10/04/2014 Active metFORMIN (GLUCOPHAGE) 500 mg Tablet 0 10/19/2014 Active BD INSULIN PEN NEEDLE UF ORIG 29 gauge x 1/2 Needle 0 10/04/2014 Activ e chlorthalidone (HYGROTEN) 50 mg Tablet Take 50 mg by mouth daily. Active Insulin Lispro (HUMALOG) 100 unit/mL Insulin Pen Inject subcutaneously. Active lisinopril (PRINIVIL;ZESTRIL) 40 mg Tablet Take 40 mg by mouth daily. Active clindamycin (CLEOCIN) 300 mg Capsule Take 1 capsule by mouth 3 times daily. 30 capsule 0 04/15/2015 Active oxyCODONE-acetaminop hen (PERCOCET) 5-325 mg Tablet Take 1 tablet by mouth every 4 hours as needed for Pain. 15 tablet 0 04/18/2015 Active Active Problems Problem Noted Date Diagnosed Date Essential hypertension 01/07/2015 Diabetes mellitus type 2, insulin dependent 12/26 Tobacco use 01/07/2015 Chronic osteomyelitis of mandible 01/07/2015 Pain in lower jaw 10/07/2014 Encounters Date Type Department Care Team Description 06/12/2023 Ancillary Procedure Radiology Library at [facility] [place] [phone] Meliton Esparza MD from Last 3 Months Social History Tobacco Use Types Packs/Day Years Used Date Smoking Tobacco: Every Day Cigarettes Smokeless Tobacco: Never Alcohol Use Standard Drinks/Week Comments Yes 1 (1 standard drink = 0.6 oz pur e alcohol) occassionally Sex and Gender Information Value Date Recorded Sex Assigned at Not on file Gender Identity Not on file Sexual Orientation Not on file Last Filed Vital Signs Vital Sign Reading Time Taken Comments Blood Pressure 132/88 04/15/2015 2:45 PM EST Pulse 74 04/15/2015 9:20 AM EST Temperature 36.4 ??C (97.5 ??F) 04/15/2015 12:[address] Respiratory Rate 17 04/15/2015 2:56 PM EST Oxygen Saturation 97% 04/15/2015 2:56 PM EST Inhaled Oxygen Concentration - - Weight 86.8 kg (191 lb 6.4 oz) 03/29/2015 4:25 P M EST Height 160 cm (5' 3) 11/02/2014 1:59 PM EDT Body Mass Index 33.9 11/02/2014 1:59 PM EDT Plan of Treatment Health Maintenance Due Date Last Done Comments CT Colonography 1970 Colonoscopy 1970 Colorectal Cancer Screening 1970 FIT DNA 1970 FIT 1970 Sigmoidoscopy (10 year) with FIT yearly 1970 Sigmoidoscopy 1970 DM Creatinine yearly 1980 DM Hemoglobin A1c 1980 DM Opthalmology Exam 1980 DM Urine Microalbumin yearly 1980 HIV screen 1988 Hepatitis C Screening 1988 Lipid Screening 1988 Hepatitis B vaccine (0-59 yrs) (1) 1989 Tdap adult 1989 Tetanus vaccine 1989 HPV test 2000 PAP Smear 2000 Breast Cancer Share Decision Needed 2010 Breast Cancer screening 2010 Zoster vaccine (1 of 2) 2020 Covid-19 Vaccine (1 - 2022-24 season) 2022 Influenza (Flu) vaccine (1 o f 1 - Influenza standard series) 10/27/2023 Procedures Procedure Name Priority Date/Time Associated Diagnosis Comments FILM LIBRARY STORAGE ONLY CT PELVIS Routine 06/12/2023 12:00 AM EDT from Last 3 Months Results * Film Library- Storage Only CT Pelvis (06/12/2023 12:00 AM EDT) Narrative RAD - 06/13/2023 3:35 PM EDT This exam is auto-finalizing. It's purpose is for storage only. Meliton Esparza MD IMG FILM LIBRARY OR DERABLES [place], [place] from Last 3 Months Advance Directives * Full Code (Latest Code Status on File) Date Activated Date Inactivated Comments 04/15/2015 9:48 AM 04/15/2015 5:51 PM Question Answer Comments Does patient have capacity to make decision: Yes Care Teams Criminal Justice Program Director Relationship Specialty Start Date End Date Unknown None PCP - General 04/23/16
--- OUTSIDE RECORDS SUMMARY | 2023-09-11 15:43 | XMS_ITS | Encounter Summary ---
Author Organization [facility] Address [facility] [address] Care Team Providers Care Consulting Technical Director Name Role Phone Kiarra Garciapaty Orr APRN Primary Care Provider [phone] Reason for Visit * Auth/Cert Specialty Diagnoses / Procedures Referred By Jaja t Referred To Contact Diagnoses possible osteomyelitis Procedures PRO BONE BIOPSY,TROCAR/NEEDLE SUPERF PRO DEBRIDEMENT BONE, MUSCLE 20 SQCM/< BIOPSY BONE, TROCAR OR NEEDLE, SUPERFICIAL, MANDIBLE DEBRIDEMENT SKIN, SUBCU, MUSCLE, BONE, HEAD/NECK Referral ID Status Reason Start Date Expiration Date Visits Re quested Visits Authorized [id number] 1 1 Encounter Details Date Type Department Care Team (Late st Contact Info) Description 04/15/2015 10:59 AM EST - 04/15/2015 1:57 PM EST [place] [address] Hoang Perez MD [facility] DR ORAL & [place] [address] BIOPSY BONE, TROCAR OR NEEDLE, SUPERFICIAL, MANDIBLE (WRVU 1.65) Social History Tobacco Use Types Packs/Day Years [...] Sign Reading Time Taken Comments Blood Pressure 122/82 04/15/2015 1:45 PM EST Pulse 74 04/15/2015 9:20 AM EST Temperature 36.4 ??C (97.5 ??F) 04/15/2015 12:[address] Respiratory Rate 16 04/15/2015 1:45 PM EST Oxygen Saturation 99% 04/15/2015 1:45 PM EST Inhaled Oxygen Concentration - - Weight - - Height - - Body Mass Index - - documented in this encounter Discharge Instructions * Discharge Instructions* Angelina Gunter RN - 04/15/2015 2:03 PM EST Do not use lower denture til after apt with oral surgery Rinse with saline three times a day Stitches in mouth are resorbable and will fall out by themselves but facial suture will come out inone week to 10 days If you have any questions, you can contact us at [phone] during working hours. If after hours,Dr. Perez can be reached at [phone]. POST ANESTHESIA INSTRUCTIONS Go home, rest, use caution on stairs. Change positions slowly. Do not smoke if you are alone. Diet light to regular as tolerated today. If nausea occurs start with clear liquids and progress slowly. No driving, operating machinery, alcoholic beverages and no important decisions for 24 hours. Monitor IV site for signs and symptoms of infection: increasing redness, swelling, foul drainage, if occurs contact M.D. Patients who have had endotrachial tubes (this tube, used by anesthesia department, is passed down your throat after you are asleep, to ensure safe air passage during your operation). A sore throat is normal due to the tube. Cold liquids or soothing lozenges will help ease the discomfort. The generalized muscle aches are due to the medication given to you just before the tube is inserted. As the medication wears off, you may develop muscle soreness, which usually goes away in 12-24 hours. documented in this encounter Medications at Time of Discharge Medication Sig Dispensed Refills Start Date End Date clindamycin (CLEOCIN) 300 mg Capsule Take 1 capsule by mouth 3 times daily. 30 capsule 0 04/15/2015 LANTUS SOLOSTAR Insulin Pen 0 12/03/2014 LANTUS Solution 0 10/04/2014 metFORMIN (GLUCOPHAGE) 500 mg Tablet 0 10/19/2014 BD INSULIN PEN NEEDLE UF ORIG 29 gauge x 1/2 Needle 0 10/04/2014 chlorthalidone (HYGROTEN) 50 mg Tablet Take 50 mg by mouth daily. Insulin Lispro (HUMALOG) 100 unit/mL Insulin Pen Inject subcutaneously. lisinopril (PRINIVIL;ZESTRIL) 40 mg Tablet Take 40 mg by mouth daily. PROAIR HFA 90 mcg/actuation HFA Aerosol Inhaler 0 09/14/2014 amLODIPine (NORVASC) 5 mg Tablet 0 09/11/2014 FREESTYLE LITE STRIPS Strip 0 09/11/2014 cyclobenzaprine (FLEXERIL) 10 mg Tablet 0 09/30/2014 FREESTYLE LANCETS 28 gauge Misc 0 09/11/2014 mupirocin (BACTROBAN) 2 % Ointment 0 08/11/2014 PARoxetine (PAXIL) 30 mg Tablet 0 08/11/2014 oxyCODONE-acetaminophen (PERCOCET) 5-325 mg Tablet Take 1 tablet by mouth every 4 hours as needed for Pain. 15 tablet 0 04/15/2015 04/18/2015 documented as of this encounter Progress Notes * Angelina Gunter RN - 04/15/2015 3:46 PM EST Same day program - Patient did well post operatively. anesthesia aware of blood sugar readings as documented. Patient voices good understanding of discharge instructions. Sutures left mandible intact - no drge. Oral sutures intact. Patent able to swallow without difficulty. 1540 - patient discharged to home - in w/c, with OFFICE ADMINISTRATION - to pick up truck driver meds at pharmacy and RTC long haul truck driver to pick her up at 4:00PM. documented in this encounter H&P Notes * Hoang Perez MD - 04/15/2015 9:46 AM EST Patient Name: Jennifer James Patient Age: 44 y.o. Birthdate: 1970 Admit date: 04/15/2015 Attending Physician: Hoang Perez MD The patient was seen and examined in the preoperative unit today. I have reviewed and agree with the clinical history, physical exam findings, impressions and plans as described in the original History and Physical Exam note. No new clinically significant changes to patient's health are noted. Jennifer is prepared to proceed with the planned surgical intervention as reviewed in detail. No antibiotics in a year and the swelling and drainage occurs once a month. documented in this encounter Miscellaneous Notes * Op Note - Hoang Perez MD - 04/15/2015 12:50 PM EST [facility] Operative Note Patient Name: Jennifer James : [id number] MR#: [id number] Case Date: 04/15/2015 Surgeon: Surgeon(s) and Role: * Hoang Perez MD - Primary Preoperative diagnosis: possible osteomyelitis Postoperative diagnosis: possible osteomyelitis Procedure(s): BIOPSY BONE, TROCAR OR NEEDLE, SUPERFICIAL, MANDIBLE DEBRIDEMENT SKIN, SUBCU, MUSCLE, BONE, HEAD/NECK EXC BENIGN LESION KIARRA <0.5CM, FACE Anesthesia: Anesthesia type not filed in the log. Estimated Blood Loss: * No values recorded between 04/15/2015 11:03 AM and 04/15/2015 12:31 PM * Specimens removed during surgery: bone biopsy and cultures Drains: Surgical Closure: Primary Closure - closure of ALL tissue levels during the original surgery regardless of wires, wickes, drains, or other devices extruding through the incision Disposition: awakened from anesthesia, extubated and taken to the recovery room in a stable condition, having suffered no apparent untoward event. 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 The patient was prepped and draped in the standard fashion fororal and maxillofacial surgery. The oral cavity was suctioned and an oral pharyngeal pack was placed. 5 cc of 1% Xylocaine with 1-200,000 epinephrine was used to infiltrate the surgical sites. Procedure Description: After the oral cavity was prepared and draped the left facial wound was compressed and a small modicum of apparent keratinaceous fluid exuded. This was cultured aerobically and anaerobically. Attention was then turned intraorally after lacrimal duct probe was easily passed 2-1/2 cm into the fistula meeting into and through the left mandibular ridge. A 15 blade was used to make a crest of ridge incision over the left mandible extending to the retromolar trigone area laterally and up to the parasymphysis area anteriorly. Mucoperiosteum was carefully reflected from the bone, the bone itself appeared quite normal in the posterior and anterior regions. It was somewhat sclerotic in the central area where the probe easily came through the buccal tissue, through periosteum and through the crest of the bone itself. Several bone specimens were obtained with the use of curettage as well as rongeurs. These specimens were sent both for histology as well as microbiology. Tissue cultures were obtained of both hard and soft tissue. A 4 mm trephine bur was then used with a [employer] drill to obtain a core into the left mandible through the crest and into the marrow. The drill was copiously irrigated as we were obtaining the specimen. The specimen was then submitted to Pathology for microscopic evaluation. Continued debridement followed. The fistulous tract itself was carefully excised with an elliptical incision and with the use of Lawanda scissors. The fistula tract was also submitted to Pathology for microscopic evaluation. Soft tissue was carefully released and approximated with two 5-0 Prolene mattressed sutures through the skin. Attention was then turned intraorally, copious irrigation with bacitracin followed and the intraoral mucosa over the ridge was closed with a running as well as interrupted 3-0 chromic suture. Good hemostasis was noted. The oral cavity was then suctioned, the throat pack was removed and patient was extubated and brought to the Recovery Room in satisfactory condition having tolerated the procedure well with a minimal blood loss. We will refrain from use of the lower denture at this time. She was given 600 mg of clindamycin after biopsies and cultures were obtained. No evidence of injury to the inferior alveolar nerve noted. The oral cavity was then carefully suctioned and the oral pharyngeal pack was removed. An oral gastric tube was passed to empty the stomach. The patient was awakened, extubated and brought to the recovery room in satisfactory condition having tolerated the procedure well with a minimum of blood loss. Infection Bundle used? No Attestation: Case Date: 04/15/2015 I performed this procedure without the involvement of a resident. HOANG PEREZ MD 04/15/2015 documented in this encounter Plan of Treatment Not on file documented as of this encounter Procedures Procedure Name Priority Date/Time Associated Diagnosis Comments POCT GLUCOSE Routine 04/15/2015 3:10 PM EST POCT GLUCOSE Routine 04/15/2015 12:51 PM EST EXC BENIGN LESION KIARRA <0.5CM, FACE Routine 04/15/2015 12:48 PM EST Jaw pain SPECIMEN TO PATHOLOGY Routine 04/15/2015 12:05 PM EST POCT GLUCOSE Routine 04/15/2015 12:02 PM EST SPECIMEN TO PATHOLOGY Routine 04/15/2015 12:00 PM EST ANAEROBIC CULTURE Routine 04/15/2015 11: 50 AM EST ANAEROBIC CULTURE Routine 04/15/2015 11: 50 AM EST TISSUE CULTURE, AEROBIC & ANAEROBIC Routine 04/15/2015 11:50 AM EST BONE CULTURE, AEROBIC & ANAEROBIC Routine 04/15/2015 11:50 AM EST BONE CULTURE Routine 04/15/2015 11:50 AM EST TISSUE CULTURE Routine 04/15/2015 11:50 AM EST SPECIMEN TO PATHOLOGY Routine 04/15/2015 11:45 AM EST SPECIMEN TO PATHOLOGY Routine 04/15/2015 11:40 AM EST SURGICAL PATHOLOGY REPORT Routine 04/15/2015 11:37 AM EST SPECIMEN TO PATHOLOGY Routine 04/15/2015 11:37 AM EST EXC BENIGN LESION KIARRA <0.5CM, FACE (WRVU 1.05) 04/15/2015 10:17 AM EST Jaw pain DEBRIDEMENT SKIN, SUBCU, MUSCLE, BONE, HEAD/NECK (WRVU 4.1) 04/15/2015 10:17 AM EST Jaw pain BIOPSY BONE, TROCAR OR NEEDLE, SUPERFICIAL, MANDIBLE (WRVU 1.65) 04/15/2015 10:17 AM EST Jaw pain POCT GLUCOSE Routine 04/15/2015 10:08 AM EST documented in this encounter Results * (ABNORMAL) POCT Glucose (04/15/2015 3:10 PM EST) POC Glucose 273(H) 65 - 199 mg/dL [facility] Comment: Supplemental ranges: <140 mg/dL before meals <180 mg/dL all other times of the day Blood specimen (specimen) 04/15/2015 3:10 PM EST 04/15/2015 3:10 PM EST Hoang Perez MD POINT OF CARE TEST O NANCY Performing Organization Address [facility] Co de Phone Number [facility] * (ABNORMAL) POCT Glucose (04/15/2015 12:51 PM EST) POC Glucose 229(H) 65 - 199 mg/dL [facility] Comment: Supplemental ranges: <140 mg/dL before meals <180 mg/dL all other times of the day Blood specimen (specimen) 04/15/2015 12:51 PM EST 04/15/2015 12:51 PM EST Hoang Perez MD POINT OF CARE TEST O NANCY Performing Organization Address [facility]/State/ZIP Co de Phone Number [facility] * Specimen to Pathology (surgical or derm) (04/15/2015 12:05 PM EST) AP Specimen 04/15/2015 12:0 5 PM EST 04/15/2015 12:05 PM EST [facility]ative [facility] 04/15[facility] 12[facility]05 PM EST Specimen requisition ordered. ??Separate Pathology report to follow Hoang Perez MD PATHOLOGY/CYTOLOGY O RDERABLES Performing Organization Address [facility] Co de Phone Number [facility] * POCT Glucose (04/15/2015 12:02 PM EST) POC Glucose 197 65 - 199 mg/dL [facility] Comment: Supplemental ranges: <140 mg/dL before meals <180 mg/dL all other times of the day Blood specimen (specimen) 04/15/2015 12:02 PM EST 04/15/2015 12:02 PM EST Hoang Perez MD POINT OF CARE TEST O RDERABLES Performing Organization Address [facility]/[place] de Phone Number [facility] * Specimen to Pathology (surgical or derm) (04/15/2015 12:00 PM EST) AP Specimen 04/15/2015 12:0 0 PM EST 04/15/2015 12:00 PM EST Narrative [facility] - 04/15/2015 12:00 PM EST Specimen requisition ordered. ??Separate Pathology report to follow Hoang Perez MD PATHOLOGY/CYTOLOGY O RDERABLES Performing Organization Address [facility]/[place] de Phone Number [facility] * Anaerobic Culture (04/15/2015 11:50 AM EST) Anaerobic Culture No anaerobic organisms isolated [facility] Specimen from bone (specimen) [facility] / Unknown 04/15/2015 11:50 AM EST 04/15/2015 1:09 PM EST Comment:LEFT MANDIBULAR RIDG E, R/O FOREIGN BODY Narrative Resulting Agency Comment Spec In Lab Hoang Perez MD MICROBIOLOGY - GENER AL ORDERABLES Performing Organization Address [facility] Co de Phone Number [facility] [place] [address] * (ABNORMAL) Bone Culture (04/15/2015 11:50 AM EST) Bone Culture Moderate Escherichia coli Moderate Klebsiella pneumoniae Few mixed bacterial morphotypes suggestive of normal oropharyngeal norbert (A) [facility] Gram Stain No WBC's seen. Rare Gram Negative Rods seen (A) [facility] Organism Escherichia coli(A) [facility] Organism Klebsiella pneumoniae(A) [facility] Organism Gram Negative Rods(A) [facility] Specimen from bone (specimen) [facility] / Unknown 04/15/2015 11:50 AM EST 04/15/2015 1:09 PM EST Comment:LEFT MANDIBULAR RIDG E, R/O FOREIGN BODY Narrative Resulting Agency Comment Spec In Lab Organism Antibiotic Method Susceptibility Escherichia coli Amikacin MICROSCAN METHOD Sensitive Escherichia coli Ampicillin MICROSCAN METHOD Sensitive Escherichia coli Ampicillin + Sulbactam MICROSCAN METH OD Sensitive Escherichia coli Aztreonam MICROSCAN METHOD Sensitive Escherichia coli Cefazolin MICROSCAN METHOD Sensitive Escherichia coli Cefepime MICROSCAN METHOD Sensitive Escherichia coli Ceftazidime MICROSCAN METHOD Sensitive Escherichia coli Ceftriaxone MICROSCAN METHOD Sensitive Escherichia coli Cefuroxime MICROSCAN METHOD Sensitive Escherichia coli Ciprofloxacin MICROSCAN METHOD Sensitive Escherichia coli Gentamicin MICROSCAN METHOD Sensitive Escherichia coli Levofloxacin MICROSCAN METHOD Sensitive Escherichia coli Meropenem MICROSCAN METHOD Sensitive Escherichia coli Piperacillin/Tazobactam MICROSCAN MET HOD Sensitive Escherichia coli Tetracycline MICROSCAN METHOD Sensitive Escherichia coli Tigecycline MICROSCAN METHOD Sensitive Escherichia coli Tobramycin MICROSCAN METHOD Sensitive Escherichia coli Trimethoprim/Sulfa MICROSCAN METHOD Sensitive Klebsiella pneumoniae Amikacin MICROSCAN METHOD Sensitive Klebsiella pneumoniae Ampicillin MICROSCAN METHOD Resistant Klebsiella pneumoniae Ampicillin + Sulbactam MICROSCAN METHOD Sensitive Klebsiella pneumoniae Aztreonam MICROSCAN METHOD Sensitive Klebsiella pneumoniae Cefazolin MICROSCAN METHOD Sensitive Klebsiella pneumoniae Cefepime MICROSCAN METHOD Sensitive Klebsiella pneumoniae Ceftazidime MICROSCAN METHOD Sensitive Klebsiella pneumoniae Ceftriaxone MICROSCAN METHOD Sensitive Klebsiella pneumoniae Cefuroxime MICROSCAN METHOD Sensitive Klebsiella pneumoniae Ciprofloxacin MICROSCAN METHOD Sensitive Klebsiella pneumoniae Gentamicin MICROSCAN METHOD Sensitive Klebsiella pneumoniae Levofloxacin MICROSCAN METHOD Sensitive Klebsiella pneumoniae Meropenem MICROSCAN METHOD Sensitive Klebsiella pneumoniae Piperacillin/Tazobactam MICROSCA N METHOD Sensitive Klebsiella pneumoniae Tetracycline MICROSCAN METHOD Sensitive Klebsiella pneumoniae Tigecycline MICROSCAN METHOD Sensitive Klebsiella pneumoniae Tobramycin MICROSCAN METHOD Sensitive Klebsiella pneumoniae Trimethoprim/Sulfa MICROSCAN MET HOD Sensitive Hoang Peerz MD MICROBIOLOGY - GENER AL ORDERABLES Performing Organization Address City/[facility]/ZIP Co de Phone Number [facility] [place] [address] * Anaerobic Culture (04/15/2015 11:50 AM EST) Anaerobic Culture No anaerobic organisms isolated [facility] Bone structure of mandible (body structure) 04/15/2015 11:50 AM EST 04/15/2015 1:11 PM EST Comment:EXUDATE LEFT PERIMAN DIBULAR FISTULA. Narrative Resulting Agency Comment Spec In Lab Hoang Perez MD MICROBIOLOGY - GENER AL ORDERABLES Performing Organization Address [facility] Co de Phone Number [facility] [place] [address] * (ABNORMAL) Tissue culture (04/15/2015 11:50 AM EST) Tissue Culture Many Escherichia coli Susceptibilities previously reported Many Klebsiella pneumoniae Susceptibilities previously reported Many mixed bacterial morphotypes suggestive of normal oropharyngeal norbert (A) [facility] Gram Stain Few White Blood Cells seen Moderate Gram Positive Cocci seen Few Gram Negative Rods seen Rare Gram Positive Rods (A) [facility] Organism Gram Positive Cocci(A) [facility] Organism Gram Negative Rods(A) [facility] Organism Gram Positive Rods(A) [facility] Bone structure of mandible (body structure) 04/15/2015 11:50 AM EST 04/15/2015 1:11 PM EST Comment:EXUDATE LEFT PERIMAN DIBULAR FISTULA. Narrative Resulting Agency Comment Spec In Lab Hoang Perez MD MICROBIOLOGY - GENER AL ORDERABLES Performing Organization Address City/[facility] Co de Phone Number [facility] [place] [address] * Specimen to Pathology (surgical or derm) (04/15/2015 11:45 AM EST) AP Specimen 04/15/2015 11:4 5 AM EST 04/15/2015 11:45 AM EST Narrative [facility] - 04/15/2015 11:45 AM EST Specimen requisition ordered. ??Separate Pathology report to follow Hoang Perez MD PATHOLOGY/CYTOLOGY O NANCY Performing Organization Address [facility] Co de Phone Number [facility] * Specimen to Pathology (surgical or derm) (04/15/2015 11:40 AM EST) AP Specimen 04/15/2015 11:4 0 AM EST 04/15/2015 11:40 AM EST Narrative [facility] - 04/15/2015 11:40 AM EST Specimen requisition ordered. ??Separate Pathology report to follow Hoang Perez MD PATHOLOGY/CYTOLOGY O NANCY Performing Organization Address [facility] Co de Phone Number [facility] * Surgical Pathology Report (04/15/2015 11:37 AM EST) Surgical Pathology Report [id number] ? Location: The signing pathologist has (i) examined the relevant preparation(s) for the specimen(s) and (ii) rendered or confirmed the diagnosis(es). . ?Surgical Pathology DIAGNOSIS A - Left mandibular ridge, excision: [...] E - Periosteum, excision: Benign fibrous tissue. CR-0 04/19/15 APM 04/21/15 Verified by: ? Garo MCCLENDON, Taniya Mccain ?Pathologist ?(Electronic Signature) The attending pathologist whose signature appears on this report has reviewed all diagnostic slides and has edited the gross and/or microscopic portion of the report in rendering the final pathologic diagnosis. CLINICAL INFORMATION Specimen Submitted: A - Left mandibular ridge, r/o foreign body B - Bone core left mandible, r/o osteomyelitis C - Left mandibular ridge, #2, histology please D - Fistual tract left side E - Periostum at the end of the fistula Clinical History: Poss osteomyelitis Clinical Diagnosis: Same SPECIMEN PROCESSING A - Labeled/Fixative: Left mandibular ridge, rule out foreign body, fresh. Quantity/Size: Multiple, 1.5 x 1.0 x 0.4 cm. Tissue Description: Hard, red, bony tissue fragments. Sections/Processi ng: Blocks submitted for decalcification: ??(1). ??(T1) B - Labeled/Fixative: Bone core left mandible, rule out osteomyelitis, fresh. Quantity/Size: Single, 0.7 x 0.5 cm. Tissue Description: Hard, pink-red bone core. Sections/Processi ng: Blocks submitted for decalcification: ??(1). ??(T1) . SPECIMEN PROCESSING C - Labeled/Fixative: Left mandibular ridge #2, fresh. Quantity/Size: Two, averaging 0.6 cm. Tissue Description: Hard, pink-red bone fragments. Sections/Processi ng: Blocks submitted for decalcification: ??(1). ??(T1) D - ??Labeled/Fixativ e: Fistula tract left side, fresh. Quantity/Size: Two, 0.4 and 0.8 cm. Tissue Description: Soft, pink tissues. Sections/Processi ng: The largest piece is bisected. (T1) E - Labeled/Fixative: Periosteum at the end of the fistula, fresh. Quantity/Size: Single, 0.6 cm. Tissue Description: Soft, pink tissue. Sections/Processi ng: (T1) ??[facility] 04/15/2015 11:3 7 AM EST Hoang Perez MD PATHOLOGY/CYTOLOGY O RDERAMICHAEL [facility] [place] [address] * Specimen to Pathology (surgical or derm) (04/15/2015 11:37 AM EST) AP Specimen 04/15/2015 11:3 7 AM EST 04/15/2015 11:37 AM EST Narrative [facility] - 04/15/2015 11:37 AM EST Specimen requisition ordered. ??Separate Pathology report to follow Hoang Perez MD PATHOLOGY/CYTOLOGY O NANCY Performing Organization Address [facility] Co de Phone Number [facility] * (ABNORMAL) POCT Glucose (04/15/2015 10:08 AM EST) POC Glucose 233(H) 65 - 199 mg/dL [facility] Comment: Supplemental ranges: <140 mg/dL before meals <180 mg/dL all other times of the day Blood specimen (specimen) 04/15/2015 10:08 AM EST 04/15/2015 10:08 AM EST Hoang Perez MD POINT OF CARE TEST O NANCY Performing Organization Address [facility] Co de Phone Number [facility] documented in this encounter Visit Diagnoses Diagnosis Jaw pain Jaw pain documented in this encounter Administered Medications Inactive Administered Medications - up to 3 most recent administrations Medication Order MAR Action Action Date Dose Rate Site acetaminophen (TYLENOL) tablet 1,000 mg 1,000 mg, Oral, ONCE, 1 dose, On Sat04/15/15 at 0945, Maximum dose of acetaminophen is 4000 mg from all sources in 24 hours., Day of Surgery (Day of Procedure), Routine Given 04/15/2015 9:44 AM EST 1,000 mg bacitracin injection ONCE PRN, Starting on Sat04/15/15 at 1203, Until Sat04/15/15 at 1544, Intra-Operative (Intra-Procedure), Routine Given 04/15/2015 12:03 PM EST 50,000 Units 19- Surgical Site fentaNYL (PF) 50 mcg/mL 2mL syringe 50 mcg, Intravenous, EVERY 5 MIN PRN, Pain, for 5-10 pain score, Starting on Sat04/15/15 at 1313, Until Sat04/15/15 at 1544, for 5-10 pain score Hold for respiratory rate less than 10 per minute. Maximum dose: 250 mcg over one hour., PACU Recovery Given 04/15/2015 1:53 PM EST 50 mcg Given 04/15/2015 1:25 PM EST 50 mcg insulin aspart (NovoLOG) VIAL injection 2-8 Units 2-8 Units, Subcutaneous, 3 TIMES DAILY BEFORE MEALS, First dose on Sat04/15/15 at 1630, Until Discontinued, CORRECTION BOLUS Moderate BG 140 - 160 Give 2 units BG 161 - 200 Give 4 units BG 201 - 240 Give 6 units BG greater than 240, give 8 units and recheck BG in 2 hours. If BG remains greater than 240, repeat 8 units (no more than three times) & call for new basal insulin orders. If less than 240 after two hours, give no insulin and resume prior schedule., Day of Surgery (Day of Procedure) Given 04/15/2015 1:30 PM EST 6 Units Right Arm lactated ringers infusion 1,000 mL 1,000 mL, at 100 mL/hr, Intravenous, CONTINUOUS, Starting on Sat04/15/15 at 0945, Until Sat04/15/15 at 1544, Day of Surgery (Day of Procedure) New Bag 04/15/2015 12:08 PM EST New Bag 04/15/2015 10:18 AM EST New Bag 04/15/2015 9:41 AM EST 1,000 mLs 100 mL/hr lidocaine-EPINEPHrine 1 %-1:200,000 injection ONCE PRN, Starting on Sat04/15/15 at 1114, Until Sat04/15/15 at 1544, Intra-Operative (Intra-Procedure), Routine Given 04/15/2015 11:14 AM EST 5 mLs 19- Surgical Site oxyCODONE (ROXICODONE) immediate release tablet 5 mg 5 mg, Oral, EVERY 4 HOURS PRN, Starting on Sat04/15/15 at 1247, Until Sat04/15/15 at 1751, Pain, Routine Given 04/15/2015 2:33 PM EST 5 mg documented in this encounter Active and Recently Administered Medications Times are shown in EST. Scheduled Medication Order 04/13/2015 04/14/2015 04/15/2015 acetaminophen (TYLENOL) tablet 1,000 mg (COMPLETED) 1,000 mg, Oral, ONCE, 1 dose, On Sat04/15/15 at 0945, Maximum dose of acetaminophen is 4000 mg from all sources in 24 hours., Day of Surgery (Day of Procedure), Routine 0944 (Given - Provid er: Maricarmen Lepe RN) insulin aspart (NovoLOG) VIAL injection 2-8 Units (CANCELED)(Linked Group 1) 2-8 Units, Subcutaneous, 3 TIMES DAILY BEFORE MEALS, First dose on Sat04/15/15 at 1630, Until Discontinued, CORRECTION BOLUS Moderate BG 140 - 160 Give 2 units BG 161 - 200 Give 4 units BG 201 - 240 Give 6 units BG greater than 240, give 8 units and recheck BG in 2 hours. If BG remains greater than 240, repeat 8 units (no more than three times) & call for new basal insulin orders. If less than 240 after two hours, give no insulin and resume prior schedule., Day of Surgery (Day of Procedure) 1330 (Given - Provid er: Angelina Gunter RN) Continuous Medication Order 04/13/2015 04/14/2015 04/15/2015 lactated ringers infusion 1,000 mL (CANCELED) 1,000 mL, at 100 mL/hr, Intravenous, CONTINUOUS, Starting on Sat04/15/15 at 0945, Until Sat04/15/15 at 1544, Day of Surgery (Day of Procedure) 0941 (New Bag - Prov ider: Maricarmen Lepe RN)1018 (New Bag - Provider: Quinn Barrow MD)1208 (New Bag - Provider: Quinn Barrow MD) PRN Medication Order 04/13/2015 04/14/2015 04/15/2015 bacitracin injection (CANCELED) ONCE PRN, Starting on Sat04/15/15 at 1203, Until Sat04/15/15 at 1544, Intra-Operative (Intra-Procedure), Routine 1203 (Given - Provid er: Hoang Perez MD - Comment: Mixed in 500 ml Normal Saline.) fentaNYL (PF) 50 mcg/mL 2mL syringe (CANCELED)(Linked Group 2) 50 mcg, Intravenous, EVERY 5 MIN PRN, Pain, for 5-10 pain score, Starting on Sat04/15/15 at 1313, Until Sat04/15/15 at 1544, for 5-10 pain score Hold for respiratory rate less than 10 per minute. Maximum dose: 250 mcg over one hour., PACU Recovery 1325 (Given - Provid er: Angelina Gunter RN)1353 (Given - Provider: Angelina Gunter RN) lidocaine-EPINEPHrine 1 %-1:200,000 injection (CANCELED) ONCE PRN, Starting on Sat04/15/15 at 1114, Until Sat04/15/15 at 1544, Intra-Operative (Intra-Procedure), Routine 1114 (Given - Provid er: Hoang Perez MD) oxyCODONE (ROXICODONE) immediate release tablet 5 mg (CANCELED) 5 mg, Oral, EVERY 4 HOURS PRN, Starting on Sat04/15/15 at 1247, Until Sat04/15/15 at 1751, Pain, Routine 1433 (Given - Provid er: Summer Caba RN) Linked Groups Order Group 1: POCT Fingerstick Glucose (CANCELED) Routine, 4 TIMES DAILY BEFORE MEALS & AT BEDTIME, First occurrence on Sat04/15/15 at 1700, Until Specified, Day of Surgery (Day of Procedure), Consider choosing FOUR TIMES A DAY BEFORE MEALS AND AT BEDTIME as frequency for: Patients who have a good hypoglycemia awareness. And insulin aspart (NovoLOG) VIAL injection 2-8 Units (CANCELED)Jump to med 2-8 Units, Subcutaneous, 3 TIMES DAILY BEFORE MEALS, First dose on Sat04/15/15 at 1630, Until Discontinued, CORRECTION BOLUS Moderate BG 140 - 160 Give 2 units BG 161 - 200 Give 4 units BG 201 - 240 Give 6 units BG greater than 240, give 8 units and recheck BG in 2 hours. If BG remains greater than 240, repeat 8 units (no more than three times) & call for new basal insulin orders. If less than 240 after two hours, give no insulin and resume prior schedule., Day of Surgery (Day of Procedure) Group 2: fentaNYL (PF) 50 mcg/mL 2mL syringe (CANCELED) 25 mcg, Intravenous, EVERY 5 MIN PRN, Pain, for 1-4 pain score, Starting on Sat04/15/15 at 1313, Until Sat04/15/15 at 1544, for 1-4 pain score Hold for respiratory rate less than 10 per minute. Maximum dose: 250 mcg over one hour., PACU Recovery Or fentaNYL (PF) 50 mcg/mL 2mL syringe (CANCELED)Jump to med 50 mcg, Intravenous, EVERY 5 MIN PRN, Pain, for 5-10 pain score, Starting on Sat04/15/15 at 1313, Until Sat04/15/15 at 1544, for 5-10 pain score Hold for respiratory rate less than 10 per minute. Maximum dose: 250 mcg over one hour., PACU Recovery documented in this encounter Care Teams Consulting Technical Director Relationship Specialty Start Date End Date Mey Garcia APRN PCP - General 11/25/14 04/22/16 documented as of this encounter
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
--- OUTSIDE RECORDS SUMMARY | 2023-09-11 15:43 | XMS_ITS | Encounter Summary ---
Author Organization [facility] Address [address] [place] [address] Care Team Providers Care Park Ranger Name Role Phone Unknown, Provider Primary Care Provider [phone] Reason for Visit * Auth/Cert (Routine) Specialty Diagnoses / Procedures Referred By Jaja auguste Referred To Contact Diagnoses Necrotizing fasciitis ([facility]) necrotizing fasciitis Referral ID Status Reason Start Date Expiration Date Visits Re quested Visits Authorized [id number] 1 1 Encounter Details Date Type Department Care Team ([facility] st Contact Info) Description 06/16/2023 8:04 EDT Anesthesia Event [facility] ANESTHESIA [address] [place] [address] Chato Serrano MD [address] [facility] [address] [place] [address] Tonia Hardy [address] [place], [place] [address] Anesthesia Record Procedure Summary Procedure Name Responsible Anesthesiologist Anesthesia Start Time Anesthesia Stop Time INTUBATION Chato Serrano MD 06/16/23 0804 Events Date Time Event Comment 06/16/2023 0804 An Start The patient was re-evaluated immediately before moderate or deep sedation use, before anesthesia induction, or before the anesthesia procedure. Meds * Agents No agents on file. [...] thickness 07/31/23 1655 by Ellyn Echevarria RN Urethral Catheter 06/13/23; Patient arrived with LDA; Critically ill and the need for every 1-2 hour output measurements, Assist in healing open sacral or perineal wound healing in incontinent patient; 07/15/23; Per protocol 06/13/23 0000 by Harper Hutchinson RN 07/15/23 0000 by Paz Barth RN Rectal Tube 06/13/23; Patient arrived with LDA; With balloon; 07/04/23; (1999 Rectal tube fully inflated and out upon assessment) 06/13/23 0000 by Harper Hutchinson RN 07/04/23 0000 by Karley Patton RN Peripheral IV 06/14/23; 0157; 06/21/23; 20; 2.5; B Khoury Introcan; Anterior, Left; Upper Arm; Inserted by RN, Ultrasound Guided; 1; None; 2% Chlorhexidine with IPA; 06/24/23; 0400; Removed unobserved; No complications 06/14/23 0157 by Juliet Gomez RN 06/24/23 0400 by Grace Cruz RN Peripheral IV 06/14/23; 1441; 06/21/23; 20; 1.75; B Khoury Introcan; Anterior, Right; Forearm; Inserted by RN, Ultrasound Guided; 1; None; 2% Chlorhexidine with IPA; 06/17/23; 0401; Leaking; Catheter intact, No complications 06/14/23 1441 by Luis Traylor RN 06/17/23 0401 by Claus Gillespie, KIESHA CVC Triple Lumen 06/15/23; 0100; Sheathless catheter; Right; Subclavian vein; At bedside by Provider; Do Not Power Inject; 06/16/23; 1103 06/15/23 0100 by Emma Delgado RN 06/16/23 1103 by Danya Vang RN Non-Surgical Airway 06/16/23; 0835; ETT - cuffed; 7.5; Colorimetric EtCO2 device, Auscultation; 06/17/23; 203406/16/23 0835 by Teresita Alegre, 06/17/232034 by Robles Dawn CRNA NG/OG Tube 06/16/23; 0850; Orogastric; 14 fr; Center mouth; 06/17/23; 2100 06/16/23 0850 by Danya Vang RN 06/17/23 2100 by Claus Gillespie RN CVC Single Lumen 06/16/23; 1104; Introducer; Right; Subclavian vein; At bedside by Provider; 6; 06/22/23; 1000; Per order; No complications, Catheter intact, Dressing applied 06/16/23 1104 by Danya Vang RN 06/22/23 1000 by Shelly Gaytan RN Peripheral IV 06/17/23; 0825; 06/24/23; 22; 1.25; B Khoury Introcan; Anterior, Left; Forearm; Inserted by RN, Ultrasound Guided; 1; None; 2% Chlorhexidine with IPA; 06/24/23; 0400; Removed unobserved; No complications 06/17/23 0825 by Geovanny Tavarez RN 06/24/23 0400 by Grace Cruz RN NG/OG Tube 06/18/23; 1200; Inserted by RN, Ultrasound Guided; Nasoduodenal; 12 fr; Left nostril; 95 cm; Yes; 06/20/23; 0645 06/18/23 1200 by Nacho Ozuna RN 06/20/23 0645 by Claus Gillespie RN Wound 06/19/23; 0700; Left ; Elbow; small blanchable wound; (unknown); 06/23/23; 0800; Other 06/19/23 0700 by Tomas Alarcon RN 06/23/23 0800 by Shelly Gaytan RN Non-Surgical Airway 06/19/23; 1349 (crea mamta via procedure documentation); 06/19/23; 1447 06/19/23 1349 by Tadeo Seals AA 06/19/23 1447 by Tadeo Seals AA NG/OG Tube 06/20/23; 1330; Inserted by RN; Nasogastric; 14 fr; Left nostril; 75 cm; Yes; 06/29/23; 1415 06/20/23 1330 by Ximena Rodriguez RN 06/29/23 1415 by Maria L Diane RN Peripheral IV 06/24/23; 0416; 07/01/23; 22; 1; B Khoury Introcan; Anterior, Right; Forearm; Inserted by RN; 2; None; 2% Chlorhexidine with IPA; 06/25/23; 2330; Leaking; No complications, Catheter intact, Dressing applied 06/24/23 0416 by Tasia Ravi RN 06/25/23 2330 by Karley Patton RN Wound Vac 06/24/23; 0800; At bedside by Provider; Right; buttock; 06/29/23 06/24/23 0800 by Tami Hampton RN 06/29/23 0000 by Sandy Garza, KIESHA Peripheral IV 06/25/23; 2336; 07/02/23; 20; 1.25; B Khoury Introcan; Anterior, Left, Distal; Forearm; Inserted by RN, Ultrasound Guided; 1; None; 2% Chlorhexidine with IPA; 06/29/23; 0040; Removed unobserved 06/25/232335 by Ashia Diehl RN 06/29/23 0040 by Juliet Gomez, KIESHA Peripheral IV 06/25/23; 2336; 07/02/23; 20; 1.25; B Khoury Introcan; Anterior, Left, Proximal; Forearm; Inserted by RN, Ultrasound Guided; 1; None; 2% Chlorhexidine with IPA; 06/29/23; 0040; Removed unobserved 06/25/232335 by Ashia Diehl RN 06/29/23 0040 by Juliet Gomez, KIESHA Non-Surgical Airway 06/26/23; 2144 (crea mamta via procedure documentation); 06/26/23; [id number]/26/232143 by Mahendra Manning 06/26/23 225 by Mahednra Manning Wound Vac 06/26/23; 2221; In O R by ; Right, Medial; buttock; 07/10/23; 11206/26/23 222 by Chastity Rivera RN 07/10/23 112 by Liat Denise, KIESHA Peripheral IV 06/29/23; 0040; 07/06/23; 24; 1.25; B Khoury Introcan; Posterior, Right; Forearm; Inserted by RN; 1; None; 2% Chlorhexidine with IPA; 06/29/23; 0525; Removed unobserved 06/29/23 0040 by Juliet Gomez RN 06/29/23 0525 by Juliet Gomez RN Peripheral IV 06/29/23; 0525; 07/06/23; 24; 1.25; B Khoury Introcan; Anterior, Right; Forearm; Inserted by RN; 1; None; 2% Chlorhexidine with IPA; 07/09/23; 1244; Painful, Patient request; No complications 06/29/23 0525 by Juliet Gomez RN 07/09/23 1244 by Chrissie Marroquin, KIESHA Peripheral IV 07/03/23; 1553; 07/10/23; 20; 1.25; BD Difusics; Anterior, Left, Proximal; Upper Arm; Inserted by RN; 1; None; 2% Chlorhexidine with IPA; 07/04/23; 0845 07/03/23 1553 by Marilee Snider RN 07/04/23 0845 by Ximena Rodriguez, KIESHA Peripheral IV 07/04/23; 0501; 07/11/23; 20; 1.75; B Khoury Introcan; Right, Anterior, Medial, Distal; Upper Arm; basilic, 0.3cm wide, 1.1cm deep approximately; Inserted by RN, Ultrasound Guided; 1; None; 2% Chlorhexidine with IPA; 07/19/23; 1002; Painful, Patient request; No complications 07/04/23 0501 by Gardenia Quezada RN 07/19/23 1002 by Hoa Vásquez RN Non-Surgical Airway 07/04/23; 0520; Othe r (Comment); ETT - cuffed; 8; Auscultation, Colorimetric EtCO2 device, Other (Comment) (Bronchoscopy); 07/04/23; 0857; Other (Comments); End of therapy 07/04/23 0520 by Ban Guerrero, RT 07/04/23 0857 by Reese Bowers, RT Rectal Tube 07/07/23; 2100; Inserted by RN; With balloon; 08/09/23; 1744 07/07/23 2100 by Chrissie Marroquin RN 08/09/23 1744 by Tonia Draper RN Non-Surgical Airway 07/10/23; 1119 (gia oleary via procedure documentation); 07/10/23; 1148 07/10/23 1119 by Jeovanny Gómez MD 07/10/23 1148 by Jeovanny Gómez MD Closed/Suction Drain 07/10/23; 1700; In OR by MD (NGT inserted in wound connected to LCWS); Right, Posterior; Buttock; 07/25/23; 0600 07/10/23 1700 by Jazmin Mirza RN 07/25/23 0600 by Tonia Draper RN Urethral Catheter 07/15/23; Inserted b y RN; 14 fr; 10 ml; Yes; 08/01/23; 1400 07/15/23 0000 by Paz Barth RN 08/01/23 1400 by Juliet Alvarez RN Wound Vac 07/25/23; 1115; At bedside by Provider; Right; buttock; 07/31/23; 1550 07/25/23 1115 by Tonia Draper RN 07/31/23 1550 by Ellyn Echevarria RN Peripheral IV 07/29/23; 1504; 08/05/23; 24; 0.75; B Khoury Introcan; Anterior, Right; Forearm; Inserted by RN, Ultrasound Guided; 1; None; 2% Chlorhexidine with IPA; 08/01/23; 2117; Painful; No complications, Dressing applied 07/29/23 1504 by Katelyn Aparicio RN 08/01/23 2118 by Ronnie Rodriguez RN Non-Surgical Airway 07/31/23; 1534 (crea mamta via procedure documentation); 07/31/23; 1721 07/31/23 1534 by Krystin Tan, TOBACCO STEMMER 07/31/23 1721 by Bertram Hodge AA Peripheral IV 07/31/23; 1542 (crea mamta via procedure documentation); 18; Left; Wrist; wrist; In OR by MD; 07/31/23; 1845; Alternate access, Leaking; No complications, Dressing applied, Catheter intact 07/31/23 1542 by Krystin Tan, TOBACCO STEMMER 07/31/23 1845 by Elo Vang, KIESHA External Urinary Catheter 08/01/23; 1400; 08/02/23; 0230 08/01/23 1400 by Juliet Alvarez RN 08/02/23 0230 by Nikky Dove RN Peripheral IV 08/01/23; 2117; 08/08/23; 22; 1; B Khoury Introcan; Anterior, Proximal, Right; Forearm; Inserted by RN; 1; None; 2% Chlorhexidine with IPA; 08/04/23; 1044; Leaking, Painful, Per protocol; Catheter bent, Leaking, Dressing applied, Pain 08/01/232116 by Ronnie Rodriguez RN 08/04/23 1044 by Stephania Hughes RN Urethral Catheter 08/02/23; 0230; Inserted by RN; Assist in healing open sacral or perineal wound healing in incontinent patient; Straight-tip; 14 fr; 10 ml; Yes; 08/09/23; 1300; Per order 08/02/23 0230 by Nikky Dove RN 08/09/23 1300 by Tonia Draper RN Peripheral IV 08/04/23; 1052; 08/11/23; 22; 1; B Khoury Introcan; Posterior, Right; Forearm; Inserted by RN; 1; None; 2% Chlorhexidine with IPA; 08/19/23; 0958; Leaking; No complications, Dressing applied 08/04/23 1052 by Stephania Hughes RN 08/19/23 0958 by Luman, Nathalie, RN documented in this encounter Social History [...] place to sleep or slept in a jail (including now)? No 06/19/2023 Sex and Gender Information Value Date Recorded Sex Assigned at Not on file Gender Identity Female 06/15/2023 0:35 EDT Sexual Orientation Not on file documented as of this encounter OR Notes * Anesthesia Procedure Notes - Tonia Hardy - 06/16/2023 0841 EDTAssociated Order(s): Airway Airway Date/Time: 06/16/2023 8:30 Urgency: emergent Airway not difficult General Information and Staff Anesthesiologist: Chato Serrano MD Resident/TOBACCO STEMMER: Tonia Hardy Performed: resident/TOBACCO STEMMER/AA and anesthesiologist Performed by: Tonia Hardy Authorized by: Chato Serrano MD Consent for Airway (if performed for an anesthetic, see related documentation for consents) Consent: The procedure was performed in an emergent situation. Verbal consent not obtained. Writtenconsent not obtained. Risks and benefits: risks, benefits and alternatives were not discussed Indications and Patient Condition Indications for airway management: cardiovascular instability Sedation level: GA Preoxygenated: yes Patient position: sniffing MILS Maintained: No Ventilation assessment: 2 - Oral airway inserted Final Airway Details Final airway type: endotracheal airway Successful airway: ETT Cuffed: yes Successful intubation technique: video laryngoscopy Rancocas Facilitating devices/methods: intubating stylet and anterior pressure/BURP Endotracheal tube insertion site: oral Blade size: #4 ETT size (mm): 7.5 Placement verified by: chest auscultation, capnometry and palpation of cuff Number of attempts at approach: 1 Additional Comments Atraumatic Rancocas 4 intubation by Troy MCCLENDON (orthopedics). Size 3 blade preferable if available. documented in this encounter Plan of Treatment Not on file documented as of this encounter Procedures Procedure Name Priority Date/Time Associated Diagnosis Comments ANESTHESIA INTUBATION Routine 06/16/2023 8:30 EDT ANESTHESIA INTUBATION Routine 06/16/2023 8:30 EDT documented in this encounter Results * NM AN EMERGENT ENDOTRACHEAL AIRWAY, NM ANESTHESIA NON-TIMED PLACEHOLDER (06/16/2023 8:30 EDT) Narrative Tonia Hardy - 06/16/2023 8:30 EDT Tonia Hardy ? 06/16/2023 ??8:43 Airway Date/Time: 06/16/2023 8:30 Urgency: emergent Airway not difficult General Information and Staff Anesthesiologist: Chato Serrano MD Resident/TOBACCO STEMMER: Tonia Hardy Performed: resident/TOBACCO STEMMER/AA and anesthesiologist Performed by: Tonia Hardy Authorized [...] Cuffed: yes Successful intubation technique: video laryngoscopy Rancocas Facilitating devices/methods: intubating stylet and anterior pressure/BURP Endotracheal tube insertion site: oral Blade size: #4 ETT size (mm): 7.5 Placement verified by: chest auscultation, capnometry and palpation of cuff Number of attempts at approach: 1 Additional Comments Atraumatic Rancocas 4 intubation by Troy MCCLENDON (orthopedics). Size 3 blade preferable if available. Chato Serrano MD ANESTHESIA ORDERABLE S documented in this encounter Visit Diagnoses Not on filedocumented in this encounter Care Teams Park Ranger Relationship Specialty Start Date End Date Unknown, Provider, PCP - General 06/13/23 documented as of this encounter
--- OUTSIDE RECORDS SUMMARY | 2023-09-11 15:43 | XMS_ITS | Encounter Summary ---
Author Organization [facility] Address [facility] [place] [address] Care Team Providers Care Dietary Aide Name Role Phone Mey Garcia APRN Primary Care Provider [phone] Encounter Details Date Type Department Care Team (Late st Contact Info) Description 06/23/2015 Telephone [place] [phone] Inés Oliveira CMA Social History Tobacco Use [...] Telephone Encounter - Inés Oliveira CMA - 06/23/2015 1:53 PM EDT Attempted to call the patient about her missed appointment using the primary number in her chart. The number is not in service. Tried using the alternate number and that number will not allow messages to be left. documented in this encounter Plan of Treatment Not on file documented as of this encounter Visit Diagnoses Not on filedocumented in this encounter Care Teams Dietary Aide Relationship Specialty Start Date End Date Mey Garcia APRN PCP - General 11/25/14 04/22/16 documented as of this encounter
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
--- OUTSIDE RECORDS SUMMARY | 2023-09-11 15:43 | XMS_ITS | Encounter Summary ---
Author Organization [facility] Address [facility] [place] [address] Care Team Providers Care Discharge Coordinator Name Role Phone Unknown Primary Care Provider Unavailabl e Encounter Details Date Type Department Care Team (Late st Contact Info) Description 06/12/2023 Ancillary Procedure [place] [address] Meliton Esparza MD [facility] [place] [address] Social History Tobacco Use Types Packs/Day Years [...] CT PELVIS Routine 06/12/2023 12:00 AM EDT documented in this encounter Results * Film Library- Storage Only CT Pelvis (06/12/2023 12:00 AM EDT) Narrative QUINTEN - 06/13/2023 3:35 PM EDT This exam is auto-finalizing. It's purpose is for storage only. Meliton Esparza MD IMG FILM LIBRARY OR DERABLES [place], [place] documented in this encounter Visit Diagnoses Not on filedocumented in this encounter Care Teams Discharge Coordinator Relationship Specialty Start Date End Date Unknown None PCP - General 04/23/16 documented as of this encounter
--- OUTSIDE RECORDS SUMMARY | 2023-09-11 15:43 | XMS_ITS | Encounter Summary ---
Author Organization [facility] Address [facility] [place] [address] Care Team Providers Care Perinatal Tech Name Role Phone Mey Garcia APRN Primary Care Provider [phone]- [phone] Encounter Details Date Type Department Care Team (Late st Contact Info) Description 04/18/2015 Orders [place] [address] Chema Baig MD [facility] [place] [address] Social History Tobacco Use Types Packs/Day Years [...] on filedocumented in this encounter Care Teams Perinatal Tech Relationship Specialty Start Date End Date Mey Garcia APRN PCP - General 11/25/14 04/22/16 documented as of this encounter
--- OUTSIDE RECORDS SUMMARY | 2023-09-11 15:43 | XMS_ITS | Encounter Summary ---
Author Organization [facility] Address [address] [place] [address] Care Team Providers Care Sail Cutter Name Role Phone Unknown, Provider Primary Care Provider [phone] Encounter Details Date Type Department Care Team (Latest Contact Info) Description 06/13/2023 Travel Social History Tobacco Use Types Packs/Day Years Used Date Smoking Tobacco: Never Assessed Sex and Gender Information Value Date Recorded Sex Assigned at Not on file Gender Identity Female 06/15/2023 0:35 EDT Sexual Orientation Not on file documented as of this encounter Plan of Treatment Not on file documented as of this encounter Visit Diagnoses Not on filedocumented in this encounter Care Teams Sail Cutter Relationship Specialty Start Date End Date Unknown, Provider, PCP - General 06/13/23 documented as of this encounter
--- OUTSIDE RECORDS SUMMARY | 2023-09-11 15:43 | XMS_ITS | Encounter Summary ---
Author Organization [facility] Address [facility] [place] [address] Care Team Providers Care Software Test Automation Engineer Name Role Phone Garcia Meypaty Orr APRN Primary Care Provider [phone] Encounter Details Date Type Department Care Team (Late st Contact Info) Description 04/19/2015 Telephone [place] [phone] Inés Oliveira CMA Social History Tobacco Use [...] Encounter - Inés Oliveira CMA - 04/19/2015 12:03 PM EST Paz from [facility] called to ask what medication was prescribed by Dr. Perze after Jennifer's surgery. The prescription said Oxycodone-acetaminophen (percocet)5-325 mg tablet, take 1 tablet by mouth every 4 hours as needed for pain, Qty 15, 0 refills. Patient has a follow-up appointment scheduled for 05/05/15 at 2:00 pm. documented in this encounter Plan of Treatment Not on file documented as of this encounter Visit Diagnoses Not on filedocumented in this encounter Care Teams Software Test Automation Engineer Relationship Specialty Start Date End Date Mey Garcia APRN PCP - General 11/25/14 04/22/16 documented as of this encounter
--- OUTSIDE RECORDS SUMMARY | 2023-09-11 15:43 | XMS_ITS | Encounter Summary ---
Author Organization [facility] Address [facility] [place] [address] Care Team Providers Care Top Trimmer Name Role Phone Unavailable Primary Care Provider Unavailabl e Encounter Details Date Type Department Care Team (Latest Contact Info) Description 11/02/2014 4:01 PM EDT - 11/02/2014 11:59 PM EDT [place] [address] Ángel Brown MD [facility] [place] [address] Abscess of left jaw Discharge Disposition: Home Social History Tobacco [...] - Inhaled Oxygen Concentration - - Weight 85.7 kg (189 lb) 11/02/2014 4:44 PM EDT Height - - Body Mass Index 33.48 11/02/2014 1:59 PM EDT documented in this encounter Medications at Time of Discharge Medication Sig Dispensed Refills Start Date End Date LANTUS Solution 0 10/04/2014 metFORMIN (GLUCOPHAGE) 500 mg Tablet 0 09/26 BD INSULIN PEN NEEDLE UF ORIG 29 gauge x 1/2 Needle 0 10/04/2014 PROAIR HFA 90 mcg/actuation HFA Aerosol Inhaler 0 09/14/2014 amLODIPine (NORVASC) 5 mg Tablet 0 09/12/19 15 FREESTYLE LITE STRIPS Strip 0 09/11/2014 cyclobenzaprine (FLEXERIL) 10 mg Tablet 0 0 09/30/2014 FREESTYLE LANCETS 28 gauge Misc 0 5 mupirocin (BACTROBAN) 2 % Ointment 0 2014 PARoxetine (PAXIL) 30 mg Tablet 0 5 documented as of this encounter Plan of Treatment Not on file documented as of this encounter Procedures Procedure Name Priority Date/Time Associated Diagnosis Comments MRI FACE WITH/WO CONTRAST STAT 11/02/2014 5:34 PM EDT documented in this encounter Results * MRI Face With/WO Contrast (11/02/2014 5:34 PM EDT) Anatomical Region Laterality Modality Head Magnetic Resonan ce 11/02/2014 5:34 PM EDT Impressions 11/02/2014 5:58 PM EDT IMPRESSION: Apparent left mandibular osteomyelitis with adjacent cellulitis and a soft tissue tract extending from the mandible to the skin with evidence of decompression to the skin surface. No gross undrained collection identified. Clinical correlation recommended. Narrative 11/02/2014 5:58 PM EDT EXAMINATION: MR FACE WITH/WITHOUT CONTRAST/ANES CLINICAL HISTORY: [...] appreciated on image 12 of series 19. Procedure Note Foreign French MD - 11/02/2014 EXAMINATION: MR FACE WITH/WITHOUT CONTRAST/ANES CLINICAL HISTORY: Left jaw abceses TECHNIQUE: MRI face without with gadolinium 9 cc gadavist COMPARISON: CT of the face dated 03/10/2014 FINDINGS: Examination demonstrates a soft tissue defect projecting in the left shinwhich extends to the left mandible. There is an apparent tract that extends tothe mandible on axial images 12 through 9 of series 18 and on images 12through 14 of series 19. There is small amount of fluid within the tract andabnormal enhancement surrounding the tract. There is distortion of the buccalcortex of the mandible adjacent to the edema and fluid signal abnormality and thereis evidence of thickened soft tissue in the region of the buccal gingiva.This is best appreciated on image 12 of series 19. IMPRESSION IMPRESSION: Apparent left mandibular osteomyelitis with adjacent cellulitis and asoft tissue tract extending from the mandible to the skin with evidence of decompression to the skin surface. No gross undrained collectionidentified. Clinical correlation recommended. Ángel Brown MD IMG MRI ORDERABLES documented in this encounter Visit Diagnoses Diagnosis Abscess of left jaw Inflammatory conditions of jaw documented in this encounter Administered Medications Inactive Administered Medications - up to 3 most recent administrations Medication Order MAR Action Action Date Dose Rate Site gadobutrol (GADAVIST) 1 mMol/mL injection 8.57 mL 8.57 mL (0.1 mL/kg/dose ? 85.7 kg), Intravenous, ONCE PRN, 1 dose, Starting on Sat11/02/14 at 1644, Until Sat11/02/14 at 1658, Per Protocol, Routine Given 11/02/2014 4:58 PM EDT 9 mLs documented in this encounter
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
--- OUTSIDE RECORDS SUMMARY | 2023-09-11 15:43 | XMS_ITS | Encounter Summary ---
Author Organization [facility] Address [facility] [place] [address] Care Team Providers Care Client Experience Consultant Name Role Phone Kiarra Garciapaty Orr APRN Primary Care Provider [phone]- [phone] Reason for Visit * Auth/Cert Specialty Diagnoses / Procedures Referred By Conttri t Referred To Contact Diagnoses possible osteomyelitis Procedures PRO BONE BIOPSY,TROCAR/NEEDLE SUPERF PRO DEBRIDEMENT BONE, MUSCLE 20 SQCM/< BIOPSY BONE, TROCAR OR NEEDLE, SUPERFICIAL, MANDIBLE DEBRIDEMENT SKIN, SUBCU, MUSCLE, BONE, HEAD/NECK Referral ID Status Reason Start Date Expiration Date Visits Re quested Visits Authorized [id number] 1 1 Encounter Details Date Type Department Care Team (Late st Contact Info) Description 04/15/2015 8:56 AM EST - 04/15/2015 3:40 PM EST Hospital Encounter [place] [address] Hoang Perez MD [facility] ORAL [facility] [place] [address] Jaw pain Discharge Disposition: Home Social History Tobacco Use [...] any questions, you can contact us at [phone] during working hours. If after hours,Dr. Perez can be reached at [phone]. POST ANESTHESIA INSTRUCTIONS Go home, rest, use [...] discharged to home - in w/c, with LEVEL VIAL INSIDE GRINDER - to fruit or nut picker meds at pharmacy and RTC hazmat cdl driver to pick her up at 4:00PM. [...] Perez MD - 04/15/2015 12:50 PM EST [facility] Operative Note Patient Name: Jennifer James : [id number] MR#: [id number] Case Date: 04/15/2015 Surgeon: Surgeon(s) and Role: [...] trephine bur was then used with a [employer] drill to obtain a core into the [...] POC Glucose 273(H) 65 - 199 mg/dL [facility] Comment: Supplemental ranges: <140 mg/dL before meals <180 mg/dL all other times of the day Blood specimen (specimen) 04/15/2015 3:10 PM EST 04/15/2015 3:10 PM EST Hoang Perez MD POINT OF CARE TEST O NANCY Performing Organization Address [facility] Co de Phone Number [facility] [email or web address] * (ABNORMAL) POCT Glucose (04/15/2015 12:51 PM EST) POC Glucose 229(H) 65 - 199 mg/dL [facility] Comment: Supplemental ranges: <140 mg/dL before meals <180 mg/dL all other times of the day Blood specimen (specimen) 04/15/2015 12:51 PM EST 04/15/2015 12:51 PM EST Hoang Perez MD POINT OF CARE TEST O NANCY Performing Organization Address [facility] Co de Phone Number [facility] * Specimen to Pathology (surgical or derm) (04/15/2015 12:05 PM EST) AP Specimen 04/15/2015 12:0 5 PM EST 04/15/2015 12:05 PM EST Narrative [facility] - 04/15/2015 12:05 PM EST Specimen requisition ordered. ??Separate Pathology report to follow Hoang Perez MD PATHOLOGY/CYTOLOGY O RDERABLES Performing Organization Address [facility] Co de Phone Number [facility] * POCT Glucose (04/15/2015 12:02 PM EST) POC Glucose 197 65 - 199 mg/dL [facility] Comment: Supplemental ranges: <140 mg/dL before meals <180 mg/dL all other times of the day Blood specimen (specimen) 04/15/2015 12:02 PM EST 04/15/2015 12:02 PM EST Hoang Perez MD POINT OF CARE TEST O RDERABLES Performing Organization Address [facility] Phone Number [facility] * Specimen to Pathology (surgical or derm) (04/15/2015 12:00 PM EST) AP Specimen 04/15/2015 12:0 0 PM EST 04/15/2015 12:00 PM EST Narrative [facility] - 04/15/2015 12:00 PM EST Specimen requisition ordered. ??Separate Pathology report to follow Hoang Perez MD PATHOLOGY/CYTOLOGY O RDERABLES Performing Organization Address [facility] Co de Phone Number [facility] * Anaerobic Culture (04/15/2015 11:50 AM EST) Anaerobic Culture No anaerobic organisms isolated [facility] Specimen from bone (specimen) [facility] STRUCTURE / Unknown 04/15/2015 11:50 AM EST 04/15/2015 1:09 PM EST Comment:LEFT MANDIBULAR RIDG E, R/O FOREIGN BODY Narrative Resulting Agency Comment Spec In Lab Hoang Perez MD MICROBIOLOGY - GENER AL ORDERABLES Performing Organization Address [facility] Co de Phone Number [facility] [place] [place] [address] * (ABNORMAL) Bone Culture (04/15/2015 11:50 AM EST) Bone Culture Moderate Escherichia coli Moderate Klebsiella pneumoniae Few mixed bacterial morphotypes suggestive of normal oropharyngeal norbert (A) [facility] Gram Stain No WBC's seen. Rare Gram Negative Rods seen (A) [facility] Organism Escherichia coli(A) [facility] Organism Klebsiella pneumoniae(A) [facility] Organism Gram Negative Rods(A) [facility] Specimen from bone (specimen) J[facility] REGION [...] Klebsiella pneumoniae Trimethoprim/Sulfa MICROSCAN MET HOD Sensitive Hoanganita Perez MD MICROBIOLOGY - GENER AL ORDERABLES [facility] [place] [place] [address] * Anaerobic Culture (04/15/2015 11:50 AM EST) Anaerobic Culture No anaerobic organisms isolated [facility] Bone structure of mandible (body structure) 04/15/2015 11:50 AM EST 04/15/2015 1:11 PM EST Comment:EXUDATE LEFT PERIMAN DIBULAR FISTULA. Narrative Resulting Agency Comment Spec In Lab Hoang Perez MD MICROBIOLOGY - GENER AL ORDERABLES Performing Organization Address City/[facility]/ZIP Co de Phone Number [facility] [place] [place] [address] * (ABNORMAL) Tissue culture (04/15/2015 11:50 AM EST) Tissue Culture Many Escherichia coli Susceptibilities previously reported Many Klebsiella pneumoniae Susceptibilities previously reported Many mixed bacterial morphotypes suggestive of normal oropharyngeal norbert (A) [facility] Gram Stain Few White Blood Cells seen Moderate Gram Positive Cocci seen Few Gram Negative Rods seen Rare Gram Positive Rods (A) [facility] Organism Gram Positive Cocci(A) [facility] Organism Gram Negative Rods(A) [facility] Organism Gram Positive Rods(A) [facility] Bone structure of mandible (body structure) 04/15/2015 11:50 AM EST 04/15/2015 1:11 PM EST Comment:EXUDATE LEFT PERIMAN DIBULAR FISTULA. Narrative Resulting Agency Comment Spec In Lab Hoang Perez MD MICROBIOLOGY - GENER AL ORDERABLES Performing Organization Address City/[facility]/ZIP Co de Phone Number [facility] [place] [place] [address] * Specimen to Pathology (surgical or derm) (04/15/2015 11:45 AM EST) AP Specimen 04/15/2015 11:4 5 AM EST 04/15/2015 11:45 AM EST Narrative [facility] - 04/15/2015 11:45 AM EST Specimen requisition ordered. ??Separate Pathology report to follow Hoang Perez MD PATHOLOGY/CYTOLOGY O NANCY Performing Organization Address [facility] Co de Phone Number [facility] * Specimen to Pathology (surgical or derm) (04/15/2015 11:40 AM EST) AP Specimen 04/15/2015 11:4 0 AM EST 04/15/2015 11:40 AM EST Narrative [facility] - 04/15/2015 11:40 AM EST Specimen requisition ordered. ??Separate Pathology report to follow Hoang Perez MD PATHOLOGY/CYTOLOGY O NANCY Performing Organization Address [facility] Co de Phone Number [facility] * Surgical Pathology Report (04/15/2015 11:37 AM EST) Surgical Pathology Report [id number] ? Location: The signing pathologist has (i) [...] Description: Soft, pink tissue. Sections/Processi ng: (T1) ??sns [facility] 04/15/2015 11:3 7 AM EST Hoang Perez MD PATHOLOGY/CYTOLOGY O NANCY [facility] [place] [place] [address] * Specimen to Pathology (surgical or derm) (04/15/2015 11:37 AM EST) AP Specimen 04/15/2015 11:3 7 AM EST 04/15/2015 11:37 AM EST Narrative [facility] - 04/15/2015 11:37 AM EST Specimen requisition ordered. ??Separate Pathology report to follow Hoang Perez MD PATHOLOGY/CYTOLOGY O NANCY Performing Organization Address [facility]/ZIP Co de Phone Number [facility] * (ABNORMAL) POCT Glucose (04/15/2015 10:08 AM EST) POC Glucose 233(H) 65 - 199 mg/dL [facility] Comment: Supplemental ranges: <140 mg/dL before meals <180 mg/dL all other times of the day Blood specimen (specimen) 04/15/2015 10:08 AM EST 04/15/2015 10:08 AM EST Hoang Perez MD POINT OF CARE TEST Sunshine CRUZ Performing Organization Address [facility] Co de Phone Number [facility] documented in this encounter Visit Diagnoses Diagnosis Jaw pain documented in this encounter Administered [...] Given 04/15/2015 9:44 AM EST 1,000 mg fentaNYL (PF) 50 mcg/mL 2mL syringe 50 [...] 9:41 AM EST 1,000 mLs 100 mL/hr oxyCODONE (ROXICODONE) immediate release tablet 5 mg [...] Recovery documented in this encounter Care Teams Client Experience Consultant Relationship Specialty Start Date End Date Mey Garcia APRN PCP - General 11/25/14 04/22/16 documented as of this encounter
--- OUTSIDE RECORDS SUMMARY | 2023-09-11 15:43 | XMS_ITS | Encounter Summary ---
Author Organization [facility] Address [facility] [place] [address] Care Team Providers Care Fruit Thinner Name Role Phone Mey Garcia HUBER Primary Care Provider [phone] Reason for Visit * Auth/Cert Specialty Diagnoses / Procedures Referred By Conttri t Referred To Contact Diagnoses possible osteomyelitis Procedures PRO BONE BIOPSY,TROCAR/NEEDLE SUPERF PRO DEBRIDEMENT BONE, MUSCLE 20 SQCM/< BIOPSY BONE, TROCAR OR NEEDLE, SUPERFICIAL, MANDIBLE DEBRIDEMENT SKIN, SUBCU, MUSCLE, BONE, HEAD/NECK Referral ID Status Reason Start Date Expiration Date Visits Re quested Visits Authorized [id number] 1 1 Encounter Details Date Type Department Care Team (Late st Contact Info) Description 04/15/2015 10:18 AM EST Anesthesia Event [place] [address] Titus Stein MD [facility] [place] [address] Quinn Barrow MD [facility] [place] [address] Anesthesia Record Procedure Summary Procedure Name Responsible Anesthesiologist Anesthesia Start Time Anesthesia Stop Time BIOPSY BONE, TROCAR OR NEEDLE, SUPERFICIAL, MANDIBLE (WRVU 1.65) (Left) Titus Stein MD 04/15/15 1018 04/15/15 1250 Events Date Time Event Comment 04/15/2015 0922 1018 AN Verify 1018 Start 1018 An Start Data 1026 An Induction 1028 An Intubation 1029 Anesthesia Ready 1240 Extubation/LMA Out 1242 an stop data 1250 Recovery or ICU Handoff Zee ent care was transferred to the destination unit staff after review of the patient's medical history, current anesthetic/surgical status and plan, according to the Provider Handoff Checklist. 1250 Stop Meds Name Total Midazolam 2 mg fentaNYL 200 mcg IV Lidocaine 50 mg Propofol 200 mg Rocuronium 50 mg PHENYLephrine 560 mcg Ondansetron 8 mg Dexamethasone 10 mg Neostigmine 5 mg Glycopyrrolate 0.8 mg PHENYLephrine INF 3,250 mcg Insulin Regular Human 5 Units Clindamycin 600 mg lactated ringers infusion 1,000 mL 1,000 mL * Agents Name O2 Air N2O Sevoflurane (et) * Blood No blood administrations on file. Lines, Drains, and Airways Type Details Placement Removal Supraglottic Mask Ventilation: No t Attempted (0); LMA Type: iGel; LMA Size: 4; Inserted by: Leeanna; Removal Date: 04/15/15; Removal Time: 1240 11/02/14 1628 by Luis Durán, ASSEMBLER DECK [employer] HULL 04/15/15 1240 by Quinn Barrow MD Incision 04/15/15; jaw; 10/23 (LDA cleanup utility RA#[id number]); 1715 (LDA cleanup utility RA#[id number]) 04/15/15 0000 by Radha Myers RN 10/23/21 1715 by Amado Armstrong (RETIRED) Peripheral IV Line - Single Lumen 04/15/15; 0940; metacarpal vein right (top of hand); [id number] catheter system; 20 gauge, 1 in length; Stacy POP; intradermal injection, tolerated well; no longer indicated, catheter intact, removed per policy/procedure; 04/15/15; 1540 04/15/15 0940 by Maricarmen Lepe RN 04/15/15 1540 by Angelina Gunter RN ETT Mask Ventilation: Adjunct (2); ETT Type: Cuffed, LOU, Nasal; ETT Size: 6.5 mm; Indirect: Video; Notes: Asleep, Pre-O2, Cricoid Pressure; Attempts: >3; Laryngoscopy Grade: 1; ETT Placement Verified By: Auscultation, Capnometry, Visual; Secured at Teeth: 20 cm; Inserted by: Dr. Perez; Removal Date: 04/15/15; Removal Time: 1240 04/15/15 1028 by Quinn Barrow MD 04/15/15 1240 by Quinn Barrow MD documented in this encounter Social History [...] OR Notes * Anesthesia Postprocedure Evaluation - Quinn Barrow MD - 04/15/2015 12:50 PM EST [facility]esthesiology Post-procedure Note Patient: Jennifer James Procedure Summary Date Anesthesia Start Anesthesia Stop Room / Location 04/15/15 1018 1250 [facility] OR 04 / [facility] OR Procedure Diagnosis Surgeon Responsible Provider BIOPSY BONE, TROCAR OR NEEDLE, SUPERFICIAL, MANDIBLE (Left ); DEBRIDEMENT SKIN, SUBCU, MUSCLE, BONE, HEAD/NECK (Left Head); EXC BENIGN LESION KIARRA <0.5CM, FACE (Left Face) Jaw pain (possible osteomyelitis) Hoang Perez MD Mancuso, Aaron J, MD All Anesthesia Providers: Anesthesiologist: Titus Stein MD Bag Machine Operator: Quinn Barrow MD Last (1hr) Vitals: BP Temp Pulse Resp SpO2 Patient Location: PACU/[facility] Level of Consciousness: Awake and Alert Pain Management: Satisfactory Analgesia PONV: None Cardiovascular Status: At Baseline Respiratory Status: Supplemental O2 (NC or FM) Postoperative Fluid Status: Intravascular EUvolemia Possible Anesthetic Complications: NONE apparent at time of evaluation Final Primary Anesthesia Type: General (The anesthetic type performed was the same as planned.) Comments: * Anesthesia Preprocedure Evaluation - Titus Stein MD - 04/14/2015 5:28 PM EST Pre-Anesthesia Evaluation for: Jennifer James a 44 y.o. female. Procedure(s): BIOPSY BONE, TROCAR OR NEEDLE, SUPERFICIAL, MANDIBLE DEBRIDEMENT SKIN, SUBCU, MUSCLE, BONE, HEAD/NECK Patient Active Problem List Diagnosis ??? Essential hypertension ??? Diabetes mellitus type 2, insulin dependent ??? Tobacco use ??? Chronic osteomyelitis of mandible ??? Pain in lower jaw Past Medical History Diagnosis Date ??? Allergic [...] WITH ANESTHESIA performed by CECY WITT at [facility] History Substance Use Topics ??? Smoking status: Current Every Day Smoker -- 1.00 packs/day ??? Smokeless tobacco: Never Used ??? Alcohol Use: 0.6 oz/week 0 Standard drinks or equivalent, 1 Cans of beer per week Comment: occassionally History Drug Use ??? Yes ??? Special: Marijuana Comment: every day x many years Allergies Allergen Reactions ??? Aspirin CIS - Rash, Headaches ??? Codeine Phosphate CIS - Nausea/Vomiting ??? Cymbalta [Duloxetine] Suicidal ??? Lyrica [Pregabalin] Hives ??? Penicillins CIS - Rash Medications: MAR and/or home medications have been reviewed. Physical Exam: There were no vitals filed for this visit. There is no weight on file to calculate BMI. Airway Assessment: Mallampati: II TM distance: >3 FB Neck ROM: full Cardiovascular Assessment: Pulmonary Assessment: Dental Assessment: (+) lower dentures and upper dentures Misc Assessment: Anesthesia Plan: ASA 3 General, with a(n) intravenous induction 44 y.o. Female smoker (1PPD) with pmh significant HTN, IDDM, and previous facial trauma several years ago now with suspected mandibular infection presenting for debridement + biopsy. Patient's documented history was negative for seizures, CVA, cardiopulmonary disease, hepatic/renaldisease or coagulopathy. There is no evidence of any recent URI symptoms, fevers/chills, or other signs of infection. Allergies: -- Aspirin -- CIS - Rash, Headaches -- Codeine Phosphate -- CIS - Nausea/Vomiting -- Cymbalta (Duloxetine) -- Suicidal -- Lyrica (Pregabalin) -- Hives -- Penicillins -- CIS - Rash NPO Status: Appropriate Anesthetic hx: No recorded prior complications with anesthesia Airway hx: no records Anesthetic Plan: GA with Nasal LOU Standard ASA monitoring Adequate IV access Region - Other Informed Consent: Anesthetic plan and risks discussed with patient. Plan discussed with resident. PAT Staff Note documented in this encounter Miscellaneous Notes * Addendum Note - Quinn Barrow MD - 04/18/2015 3:55 PM EST Addendum created 04/18/15 0863 by Quinn Barrow MD Modules edited: Anesthesia Medication Administration documented in this encounter Plan of Treatment Not on file documented as of this encounter Visit Diagnoses Not on filedocumented in this encounter Administered Medications Inactive Administered Medications - up to 3 most recent administrations Medication Order MAR Action Action Date Dose Rate Site clindamycin (CLEOCIN) injection PRN, Starting on Sat04/15/15 at 1209, Until Sat04/15/15 at 1250, Anesthesia Intra-op, Routine Given 04/15/2015 12:09 PM EST 600 mg dexamethasone (DECADRON) injection PRN, Starting on Sat04/15/15 at 1040, Until Sat04/15/15 at 1250, Anesthesia Intra-op, Routine Given 04/15/2015 10:40 AM EST 10 mg fentaNYL 50 mcg/mL multi-dose injection PRN, Starting on Sat04/15/15 at 1043, Until Sat04/15/15 at 1250, Pain, Anesthesia Intra-op, Routine Given 04/15/2015 10:43 AM EST 100 mcg Given 04/15/2015 10:26 AM EST 100 mcg glycopyrrolate (ROBINUL) multi-dose injection PRN, Starting on Sat04/15/15 at 1232, Until Sat04/15/15 at 1250, Anesthesia Intra-op, Routine Given 04/15/2015 12:32 PM EST 0.8 mg insulin regular human VIAL injection PRN, Starting on Sat04/15/15 at 1040, Until Sat04/15/15 at 1250, Anesthesia Intra-op, Routine Given 04/15/2015 10:40 AM EST 5 Units lactated ringers infusion 1,000 mL 1,000 mL, at 100 mL/hr, Intravenous, CONTINUOUS, Starting on Sat04/15/15 at 0945, Until Sat04/15/15 at 1544, Day of Surgery (Day of Procedure) New Bag 04/15/2015 12:08 PM EST New Bag 04/15/2015 10:18 AM EST New Bag 04/15/2015 9:41 AM EST 1,000 mLs 100 mL/hr lidocaine (PF) (XYLOCAINE) 100 mg/5 mL (2 %) injection PRN, Starting on Sat04/15/15 at 1025, Until Sat04/15/15 at 1250, Anesthesia Intra-op, Routine Given 04/15/2015 10:25 AM EST 50 mg midazolam (PF) (VERSED) 1 mg/mL multi-dose injection PRN, Starting on Sat04/15/15 at 1103, Until Sat04/15/15 at 1250, Sleep, Anesthesia Intra-op, Routine Given 04/15/2015 10:18 AM EST 2 mg neostigmine (PROSTIGMINE) multi-dose injection PRN, Starting on Sat04/15/15 at 1232, Until Sat04/15/15 at 1250, Anesthesia Intra-op, Routine Given 04/15/2015 12:32 PM EST 5 mg ondansetron (ZOFRAN) injection PRN, Starting on Sat04/15/15 at 1225, Until Sat04/15/15 at 1250, Nausea, Anesthesia Intra-op, Routine Given 04/15/2015 12:25 PM EST 8 mg PHENYLephrine (NATI-SYNEPHRINE) 20 mg in sodium chloride 250 mL (standard ADULT & Vidhi greater than 20kg) infusion CONTINUOUS PRN, Starting on Sat04/15/15 at 1126, Until Sat04/15/15 at 1250, Anesthesia Intra-op, Routine New Bag 04/15/2015 11:26 AM EST 50 mcg/min 37.5 mL/hr PHENYLephrine HCl in NS (PF) (NATI-SYNEPHRINE) 0.8 mg/10 mL (80 mcg/mL) multi-dose injection Syrg PRN, Starting on Sat04/15/15 at 1050, Until Sat04/15/15 at 1250, Anesthesia Intra-op, Routine Given 04/15/2015 12:18 PM EST 80 mcg Given 04/15/2015 11:31 AM EST 80 mcg Given 04/15/2015 11:24 AM EST 80 mcg propofol (DIPRIVAN) 10 mg/mL bolus injection (Anesthesia) PRN, Starting on Sat04/15/15 at 1026, Until Sat04/15/15 at 1250, Anesthesia Intra-op Given 04/15/2015 10:27 AM EST 50 mg Given 04/15/2015 10:26 AM EST 150 mg rocuronium (ZEMURON) multi-dose injection PRN, Starting on Sat04/15/15 at 1026, Until Sat04/15/15 at 1250, Anesthesia Intra-op, Routine Given 04/15/2015 10:26 AM EST 50 mg documented in this encounter Care Teams Fruit Thinner Relationship Specialty Start Date End Date Mey Garcia ODD TICKET CLERK PCP - General 11/25/14 04/22/16 documented as of this encounter
--- OUTSIDE RECORDS SUMMARY | 2023-09-11 15:44 | XMS_ITS | Encounter Summary ---
Author Organization [facility] Address [facility] [place] [address] Care Team Providers Care Broadcast Journalist Name Role Phone None Primary Care Provider Unavailabl e Encounter Details Date Type Department Care Team ([facility] st Contact Info) Description 03/10/2014 Orders [place] [address] Foreign Lion MD [facility] [place] [address] Social History Tobacco Use Types Packs/Day Years [...] Diagnosis Comments FILM LIBRARY STORAGE ONLY CT HEAD Routine 03/10/2014 9:30 AM EST documented in this encounter Results * Film Library- Storage only CT Head (03/10/2014 9:30 AM EST) Anatomical Region Laterality Modality Head Other 03/10/2014 9:30 AM EST Narrative 03/22/2014 9:14 AM EST This is a Non-reportable exam Procedure Note MARIELA, UNSIGNED REPORT - 03/22/2014 This is a Non-reportable exam Foreign Lion MD G FILM LIBRARY ORD ERABLES documented in this encounter Visit Diagnoses Not on filedocumented in this encounter Care Teams Broadcast Journalist Relationship Specialty Start Date End Date None None PCP - General 01/17/10 03/17/14 documented as of this encounter
--- OUTSIDE RECORDS SUMMARY | 2023-09-11 15:44 | XMS_ITS | Encounter Summary ---
[place] [address] Care Team Providers Care Wind Up Operator Name Role Phone Unavailable Primary Care Provider Unavailabl e Encounter Details Date Type Department Care Team (Late st Contact Info) Description 11/02/2014 3:50 PM EDT - 11/02/2014 4:50 PM [place] [id number] RESOURCE, ANESTHESIA-[place] None MRI WITH ANESTHESIA (WRVU *) Social History Tobacco Use Types Packs/Day Years [...] Sign Reading Time Taken Comments Blood Pressure 140/85 11/02/2014 5:50 PM EDT Pulse 83 11/02/2014 5:50 PM EDT Temperature 36.6 ??C (97.9 ??F) 11/02/2014 5:36 PM ED T Respiratory Rate 17 11/02/2014 5:50 PM EDT Oxygen Saturation 93% 11/02/2014 5:50 PM EDT Inhaled Oxygen Concentration - - Weight 85.7 kg (189 lb) 11/02/2014 1:59 PM EDT Height 160 cm (5' 3) 11/02/2014 1:59 PM EDT Body Mass Index 33.48 11/02/2014 1:59 PM EDT documented in this encounter Discharge Instructions * Discharge Instructions* Foreign Higgins RN - 11/02/2014 5:39 PM EDT POST ANESTHESIA INSTRUCTIONS Go home, rest, use [...] Name Priority Date/Time Associated Diagnosis Comments MRI WITH ANESTHESIA (WRVU *) 11/02/2014 11:50 PM EDT Abcess of left jaw POCT GLUCOSE Routine 11/02/2014 2:02 PM EDT documented in this encounter Results * POCT Glucose (11/02/2014 2:02 PM EDT) POC Glucose 113 65 - 199 mg/dL JUAN DAVID VASQUES Comment: Supplemental ranges: <140 mg/dL before meals <180 mg/dL all other times of the day Blood specimen (specimen) 11/02/2014 2:02 PM EDT 11/02/2014 2:02 PM EDT Luis Bhakta MD POINT OF CARE TEST O RDERABLES JUAN DAVID VASQUES documented in this encounter Visit Diagnoses Not on filedocumented in this encounter Administered Medications Inactive Administered Medications - up to 3 most recent administrations Medication Order MAR Action Action Date Dose Rate Site lactated ringers infusion 1,000 mL 1,000 mL, at 100 mL/hr, Intravenous, CONTINUOUS, Starting on Sat11/02/14 at 1430, Until Sat11/02/14 at 1804, Day of Surgery (Day of Procedure) New Bag 11/02/2014 2:30 PM EDT 1,000 mLs 100 mL/hr documented in this encounter Active and Recently Administered Medications Times are shown in EDT. Continuous Medication Order 10/31/2014 11/01/2014 11/02/2014 lactated ringers infusion 1,000 mL (CANCELED) 1,000 mL, at 100 mL/hr, Intravenous, CONTINUOUS, Starting on Sat11/02/14 at 1430, Until Sat11/02/14 at 1804, Day of Surgery (Day of Procedure) 1430 (New Bag - Prov ider: Silvia Lilly RN)1726 (Stopped - Provider: Luis Durán CRNA) documented in this encounter
--- OUTSIDE RECORDS SUMMARY | 2023-09-11 15:44 | XMS_ITS | Encounter Summary ---
Author Organization [facility] Address [facility] [place] [address] Care Team Providers Care Framing Mill Supervisor Name Role Phone Unavailable Primary Care Provider Unavailabl e Encounter Details Date Type Department Care Team (Late st Contact Info) Description 10/04/2014 Telephone [place] [address] Viviana Morris Social History Tobacco Use Types Packs/Day Years Used Date Smoking Tobacco: Every Day Cigarettes Smokeless Tobacco: Never Alcohol Use Standard Drinks/Week Comments No 0 (1 standard drink = 0.6 oz pur e alcohol) Sex and Gender Information Value Date Recorded Sex Assigned at Not on file Gender Identity Not on file Sexual Orientation Not on file documented as of this encounter Miscellaneous Notes * Telephone Encounter - Viviana Morris - 10/04/2014 3:11 PM EDT 10/04/14 tried to call patient Mailbox is full at this time 1510 documented in this encounter Plan of Treatment Not on file documented as of this encounter Visit Diagnoses Not on filedocumented in this encounter
--- OUTSIDE RECORDS SUMMARY | 2023-09-11 15:44 | XMS_ITS | Continuity of Care Document ---
Author Organization [place] - [facility], [facility] [place] [address] Assessment Encounter Date Assessment Date Assessment LastModified by Organization Details LastModified Time 08/30/2023 08/30/2023 The total time devoted to today's encounter, including both the jzal-hw-crjz time with the patient and/or family/caregi chen and sap-ubej-pe-f kristi time I personally spent is 50 minutes. Not available 08/30/2023 11:35:43 Plan of Treatment Reminders Order Date Submit Date Provider Last Modified By Organization Details Last Modified Time Details Appointments Follow Up 30 2023 01:20P M Janelle Gaitan Not available Not available Not available Lab lipid panel, blood 2023 024 [facility] (Registration), [address] [place] [address] [place], [address], 08/30/2023 17:24:10 CMP, serum or plasma 2023 024 [facility] (Registration), [address] [place] [address] [place], [address], 08/30/2023 15:26:37 HIV (1+2) Ab screen, serum [address] [facility] (Registration), [address] [place] [address] [place], [address], 09/06/2023 08:22:43 HbA1c (hemogl obin A1c), blood 2023 024 [facility] (Registration), [address] [place] [address] [place], [address], 08/30/2023 17:24:42 microal bumin, urine 2023 024 [facility] (Registration), [address] [place] [address] [place], [address], 08/30/2023 17:28:13 hepatit is C virus Ab, serum [email or web address] [place] [address] Laboratory (Registration), [address] [place] [address] [place], [address], 09/06/2023 08:22:50 CBC 2023 024 [facility] (Registration), [address] [place] [address] [place], [address], 08/30/2023 15:07:36 [facility]erral [facility] - New patient to me, but you know her well. Recent long ICU stay at [facility] for necroti zing fasciti s of the right buttock s, needs to re establi sh care for her ears. 2023 024 [facility], [address] [place] [address] , [place], [address], 08/30/2023 15:10:41 wound care referra l - Long hospita l stay at [facility] for right gluteal necroti zing fasciti s, home health is doing dressin g changes , she is not able to get back to [facility] for follow up due to transpo rtation limitat ions. 2023 024 [facility], [address] [place] [address] , [address], [place], [address], 09/09/2023 11:27:11 Procedures None recorde d. Surgeries None recorde d. Imaging None recorde d. Medication Orders insulin aspart (U-100) 100 unit/mL (3 mL) subcuta neous pen 2023 024 [facility], [address] [place] [address], [id number], 08/30/2023 11:25:54 Lantus Solosta r U-100 Insulin 100 unit/mL (3 mL) subcuta neous pen 2023 [facility], [address] [place] [address], [id number], 08/30/2023 11:25:42 metform in 1,000 mg tablet 2023 024 [facility], [address] [place] [address], [id number], 08/30/2023 11:25:44 sertral ine 25 mg tablet 2023 [facility], [address] [place] [address], [id number], 08/30/2023 11:26:20 lorazep am 0.5 mg tablet 2023 024 [facility], [address] [place] [address], [id number], 08/30/2023 11:26:23 amlodip ine 10 mg tablet 2023 024 [facility], [address] [place] [address], [id number], 08/30/2023 11:26:07 clonidi ne 0.2 mg/24 hr weekly transde rmal patch 2023 024 [facility], [address] [place] [address], [id number], 08/30/2023 11:25:57 methoca rbamol 1,000 mg tablet 2023 024 [facility], [address] [place] [address], [id number], 08/30/2023 11:26:19 docusat e sodium 100 mg capsule 2023 [facility], [address] [place] [address], [id number], 08/30/2023 11:26:10 Boost Glucose Control 0.06 gram-1. 1 kcal/mL oral liquid 2023 [facility], [address] [place] [address], [id number], 08/30/2023 11:26:09 furosem miky 40 mg tablet 2023 [facility], [address] [place] [address], [id number], 08/30/2023 11:26:07 Narcan 4 mg/actu ation nasal spray 2023 [facility], [address] [place] [address], [id number], 08/30/2023 11:25:57 oxycodo ne 10 mg tablet 2023 [facility], [address] [place] [address], [id number], 08/30/2023 11:26:22 Patient TargetsNo targets recorded. Patient Instructions Encounter Date Encounter Id Patient Instructions Last Modified By Organization Details Last Modified Time 08/30/2023 [id number] For anxiety- start SERTALINE 25 mg once a day. Cut the lorazepam back to just one pill twice a day. The plan is to wean off of this soon. Cut the oxycodone back to just 2 pills per day- the plan will be to wean off of this soon. I sent a prescription for NARCAN to the pharmacy in case of overdose Not available 08/30/2023 10:01:49 Reason for Referral Long hospital stay at [facility] fo r right gluteal necrotizing fascitis, home health is doing dressing changes, she is not able to get back to [facility] for follow up due to transportation limitations. Referring Physician: Family Chuck [facility], Encounter Date: 08/30/2023 Call Center Director Referral fo r Cholesteatoma New patient to me, but you know her well. Recent long ICU stay at [facility] for necrotizing fascitis of the right buttocks, needs to re establish care for her ears. Referring Physician: Family Carole Woods, Encounter Date: 08/30/2023 Problems Name Status Onset Date Resolution Date Notes Provider Name and Address Organization Details Recorded Time Necrotizing fasciitis Active 2023 right buttock, multiple debridements, wound VAC, primary repair of rectal injury. 07/30 split thickness graft to perineum. MD Stephanie [address], [place], [address], [facility] 4 09:07:31 Type 2 diabetes mellitus Active [address], [place], [address], [facility] 4 09:00:36 Diabetic peripheral neuropathy Active [address], [place], [address], [facility] 4 08:45:37 Heart block Active 2023 during ICU stay for necrotizing fascitis required rescuscitation X2 MD [address], [place], [address], [facility] 4 09:01:15 Essential hypertension Active [address], [place], [address], [facility] 4 08:46:42 Cholesteatoma Active [address], [facility] [address], [facility] 4 09:01:50 Chronic otitis externa Active [address], [facility] [address], [facility] 4 09:02:10 Obesity Active [address], [place] [id number], [facility] 4 09:06:06 Moderate depression Active [address], [place] [address] 1, [facility] 4 09:11:35 Alcohol abuse Active [address], [place] [id number], [facility] 4 09:56:19 Generalized anxiety disorder Active [address], [place] [address] 1, [facility] 4 09:56:50 Edema of lower extremity Active [address], [facility] [address], [facility] 4 10:04:51 Hearing loss Active [address], [facility] [address], [facility] 4 11:32:54 Problem Notes None recorded. Medical Equipment None Reported. Allergies Allergen ID Allergen Name Allergen Category Reaction Reaction Severity Criticality Documentation Date Start Date Code Code System Note Provider Name and Address Organization Details Recorded Time 15494 apple extract food hives mild low 08/30/2023 27580 65 RxNorm This is only with apple juice TIFFANIE ROMERO LPN null, [facility] 4 07:15:22 37694 aspirin medicatio n hives mild low 08/30/2023 1191 RxNorm TIFFANIE ROMERO LPN [facility], [facility] 4 07:15:55 79015 Cymbalta medicatio n other moderate high 08/30/2023 35440 4 RxNorm depre ssion , suici sofi ideat ion TIFFANIE ROMERO LPN [facility], [facility] 4 07:17:30 04792 Lyrica medicatio n nausea mild low 08/30/2023 42568 1 RxNorm N/V SUSU CEE, [facility] 4 07:17:59 00271 Medicinal product containin g penicilli n and acting as antibacte rial agent (product) medicatio n hives mild low 08/30/2023 98449 05 SNOMED [address] ROMERO L[address] [facility], [facility] 4 07:18:22 Medications Name Sig Start Date Stop Date Status Note LastModified by Organization Details LastModified Time furosemide 40 mg tablet Take 1 tablet every day by oral route. 2023 active Not Available Not Available Not Avai lable clonidine 0.2 mg/24 hr weekly transderma l patch Apply 1 patch every week by transderm al route. 2023 active Not Available Not Available Not Avai lable melatonin 3 mg tablet Take 2 tablets every day by oral route at bedtime. active Not Available Not Available No t Available lorazepam 0.5 mg tablet Take 1 tablet twice a day by oral route as needed. 2023 active Not Available Not Available Not Avai lable amlodipine 10 mg tablet Take 1 tablet every day by oral route. 2023 active Not Available Not Available Not Avai lable metformin 1,000 mg tablet Take 1 tablet twice a day by oral route. 2023 active Not Available Not Available Not Avai lable docusate sodium 100 mg capsule Take 1 capsule twice a day by oral route as needed. 2023 active Not Available Not Available Not Avai lable sertraline 25 mg tablet Take 1 tablet every day by oral route. 2023 active Not Available Not Available Not Avai lable acetaminop hen 500 mg capsule Take 2 capsules every 6 hours by oral route as needed. active Not Available Not Available No t Available insulin aspart (U-100) 100 unit/mL (3 mL) subcutaneo us pen inject 6 units TID with meals PLUS correctio n TID:BG 66-180, 0 unitsBG 181-210 2 unitsBG 211-250 3 unitsBG 251-299 5 unitsBG> 299 7units. 2023 active inject 6 units 3x/day with meals PLUS correctio n:BG 66-180, 0 unitsBG 181-210 2 unitsBG 211-250 3 unitsBG 251-299 5 unitsBG> 299 7units.In ject 5 units at bedtime. If BG >250, recheck at midnight Not Available Not Available Not Available BD Ultra-Fine Mini Pen Needle 31 gauge x 3/16 Take 1 needle 4 times a day by miscell. route. active Not Available Not Available No t Available sodium chloride take 1000mg by oral route 3 times daily active Not Available Not Available No t Available multivitam in take 1 daily active multivit- min/iron fum/folic ac 7.5mg iron-400m cg Not Available Not Available Not Available Lantus Solostar U-100 Insulin 100 unit/mL (3 mL) subcutaneo us pen Inject 48 units every day by subcutane ous route in the morning. 2023 active Not Available Not Available Not Avai lable oxycodone 10 mg tablet Take 1 tablet twice a day by oral route as needed, for pain. 2023 active Not Available Not Available Not Avai lable Boost Glucose Control 0.06 gram-1.1 kcal/mL oral liquid 1 can 3 times per day 2023 active Not Available Not Available Not Avai lable Narcan 4 mg/actuati on nasal spray Take 1 spray every day by nasal route as needed. 2023 active Not Available Not Available Not Avai lable methocarba mol 1,000 mg tablet Take 1 tablet 4 times a day by oral route as needed, for muscle cramps. 07/05/ 2024 active Not Available Not Available Not Avai lable Vitals Date Recorded Body height Body mass index (BMI) Body weight Body temperature Oxygen saturation Oxygen saturation in Arterial blood by Pulse oximetry Respiratory rate Heart rate Systolic blood pressure Diastolic blood pressure Provider Name and Address Organization Details Last Updated DateTime 4 160.02 cm 31.9 kg/m2 68570.6 3 g 97.9 [degF] 99 % 99 % 16 /min 104 /min 152 mm[Hg] 78 mm[Hg] TIFFANIE ROMERO LPN [facility] 08:58:44 Social History Question Answer Notes LastModified by Organizat ion Details LastModified Time Tobacco Smoking Status Current Every Day Smoker TIFFANIE ROMERO LPN [facility] 08/30/2023 09:01:09 1) Date Of Last VPMS Check? 08/30/2023 Information not available 08/30/2023 2) VPMS Findings No Concerns Information not available 08/30/2023 What Was The Date Of Your Most Recent Tobacco Screening? 08/30/2023 Information not available 08/30/2023 What Is Your Current Pack Years? 20-29packyear s Information not available 08/30/2023 How Much Tobacco Do You Smoke? 0.25 PPD Information not available 08/30/2023 Has Tobacco Cessation Counseling Been Provided? No Information not available 08/30/2023 Do You Or Have You Ever Used Any Other Forms Of Tobacco Or Nicotine? No Information not available 08/30/2023 Sex: Unknown Functional Status None recorded. Mental Status None recorded. Family History Nothing Reported. Medical History No medical history recorded. Gynecological HistoryNo gynecological history recorded. Obstetrics History GPAL:G 0 P 0 0 0 0 Past Encounters Encounter ID Performer Location Encounter Start Date Encounter Closed Date Diagnosis/Indication Diagnosis SNOMED-CT Code [id number] [facility] [place] [address] 08/30/2023 08:42:21 08/30/2023 11:14:54 Type 2 diabetes mellitus without complication 070606568 Necrotizing fasciitis 52 058531 Wound of skin 034472692 Generalize d anxiety disorder 96150748 Type 2 arlin betes mellitus 15992762 Essential hypertension 97244862 Moderate depression 3104 31596 Edema of l ower extremity 009342405 HIV screening 701394134 Hepatitis C screening 41 0202196 Hyperlipid emia screening 048912695 Cholesteatoma 657417148 Constipation 07801689 Spasm 19708442 Alcohol abuse 48029763 Health Concerns Section Related Observation LastModified by Organization Detai ls LastModified Time None Recorded Concern Status LastModified by Organization Details LastModified Time None Recorded Payers Encounter Date Sequence Insurance Name Policy Number Policy Bowser Covered Member ID Bowser Member ID Guarantor Name 08/30/2023 1 [facility] (MEDICAID) Jennifer James [id number] Jennifer James Notes Date Note Type Note Provider Name and Address Organization Details Recorded Time 08/30/2023 text/html HPI Notes: Beatriz nt not seen here since 2019. She had not been taking any of her medications. She admits to drinking regularly. Patient was admitted to [facility] 06/12 and discharged 08/21, with necrotizing fasciitis rt buttock, required multiple debridement, treated with wound VAC, had split thickness graft to perineum 07/31/2023. Injury to rectum was repaired. She missed her follow up visit at [facility]- finds it difficult to get all the way back and forth to [facility]. Long ICU stay with long intubation, complicated by two episodes of complete heart block required resuscitation, and respiratory failure. She was discharged with services daily d/t wound care, but are scheduled for twice a week. She has been working with home health physical therapy. She continues to have pain in the right gluteal region as well as the right lateral thigh where she had the graft tissue removed. She is having regular dressing changes. She has not been able to get back to [facility] for follow-up due to transportation constraints. She has been noted to have some left leg weakness, she says she was told she may have had a prior stroke. Because of the weakness and the discomfort, she has difficulty ambulating. Her physical therapist has recommended a wheelchair and a wheeled walker. She has normal upper extremity strength, so she is able to manipulate a wheelchair. Her home is accessible by wheelchair. Denies Chest pain, WELLS, or visual issues. SOB. Chronic problems: Diabetes- Had poor control back in 2019 when last seen, was scared off insulin due to prior needle breaking off in her skin, but now back on taking all of her medications. During hospital stay she was started on DEXCOM and both long acting and premeal insulin. She has been taking 48 units of lantus in the morning, and has been using fast acting insulin prior to meals- 6 units for meal coverage plus sliding scale based on premeal glucose level. eating a lot of fruits and vegetables, not much pasta. Hypertension. Home health has been checking BP but she does not know what it has been reading. Diabetic Neuropathy Anxiety- states that it is much much worse than prior to hospital stay, was started on lorazepam, has not been on SSRI. JANELLE GAITAN MD [address], [place], [address], [facility]. 08/30/2023 11:37:14 OBGyn Episode No OBEpisode recorded.
--- OUTSIDE RECORDS SUMMARY | 2023-09-11 15:44 | XMS_ITS | Encounter Summary ---
Author Organization [facility] Address [facility] [place] [address] Care Team Providers Care [place] Administrator Name Role Phone Unavailable Primary Care Provider Unavailabl e Encounter Details Date Type Department Care Team (Latest Contact Info) Description 11/02/2014 1:49 PM EDT - 11/02/2014 6:09 PM EDT Hospital Encounter [place] [phone] RESOURCE, ANESTHESIA-Luis Painting MD [facility] [address] Discharge Disposition: Home Social History Tobacco Use [...] 113 65 - 199 mg/dL JUAN DAVID DESTINYDAVID Comment: Supplemental ranges: <140 mg/dL before meals <180 mg/dL all other times of the day Blood specimen (specimen) 11/02/2014 2:02 PM EDT 11/02/2014 2:02 PM EDT Luis Bhakta MD POINT OF CARE TEST O RDERABLES [facility] documented in this encounter Visit Diagnoses Not on filedocumented in this encounter Administered Medications Inactive Administered Medications - up to 3 most recent administrations Medication Order MAR Action Action Date Dose Rate Site lactated ringers infusion 1,000 mL 1,000 mL, at 100 mL/hr, Intravenous, CONTINUOUS, Starting on 11/02/14 at 1430, Until Tu11/02/14 at 1804, Day of Surgery (Day of Procedure) New Bag 11/02/2014 2:30 PM EDT 1,000 mLs 100 mL/hr documented in this encounter Active and Recently Administered Medications Times are shown in EDT. Continuous Medication Order 10/31/2014 11/01/2014 11/02/2014 lactated ringers infusion 1,000 mL (CANCELED) 1,000 mL, at 100 mL/hr, Intravenous, CONTINUOUS, Starting on 11/02/14 at 1430, Until Tu11/02/14 at 1804, Day of Surgery (Day of Procedure) 1430 (New Bag - Prov ider: Silvia Lilly RN)1726 (Stopped - Provider: Luis Durán CRNA) documented in this encounter
--- OUTSIDE RECORDS SUMMARY | 2023-09-11 15:44 | XMS_ITS | Encounter Summary ---
Author Organization [facility] Address [facility] [place] [address] Care Team Providers Care Airborne Electronics Analyst Name Role Phone Unavailable Primary Care Provider Unavailabl e Encounter Details Date Type Department Care Team (Late st Contact Info) Description 11/02/2014 3:28 PM EDT [place] [address] Luis Bhakta MD [facility] [place] [address] Luis Durán CRNA [facility] [place] [address] Anesthesia Record Procedure Summary Procedure Name Responsible Anesthesiologist Anesthesia Start Time Anesthesia Stop Time MRI WITH ANESTHESIA (WRVU *) (Face) Luis Bhakta MD 11/02/14 1528 11/02/14 1736 Events Date Time Event Comment 11/02/2014 1414 1528 Start 1537 AN Verify 1537 An Start Data 1558 Anesthesia Ready 1622 Quick Note Pt snoring and distorting images, will place LMA. 1626 An Induction 1628 An Intubation 1727 an stop data 1736 Stop Meds Name Total Midazolam 5 mg IV Lidocaine 20 mg Propofol 250 mg Propofol INF 597.76 mg PHENYLephrine 80 mcg lactated ringers infusion 1,000 mL 1,000 mL * Agents Name O2 * Blood No blood administrations on file. Lines, Drains, and Airways Type Details Placement Removal (RETIRED) Peripheral IV Line - Single Lumen 11/02/14; 1420; cephalic vein left (lateral side of arm); vvcz-xoa-ikaciv catheter system; 20 gauge; Tawanda Nix RN; no longer indicated, removed per policy/procedure, catheter intact; 11/02/14; 18011/02/14 1420 by Silvia Lilly RN 11/02/14 180 by Foreign Higgins RN Supraglottic Mask Ventilation: No t Attempted (0); LMA Type: iGel; LMA Size: 4; Inserted by: Leeanna; Removal Date: 04/15/15; Removal Time: 1240 11/02/14 1628 by Luis Durán, TELEPHONE SALES AGENT 04/15/15 1240 by Quinn Barrow MD documented [...] OR Notes * Anesthesia Postprocedure Evaluation - Luis Bhakta MD - 11/02/2014 5:48 PM EDT Patient: Jennifer James Procedure(s) Performed: Procedure(s): MRI WITH ANESTHESIA Actual Anesthetic: MAC, general Patient location: PACU Post-op pain: Adequate analgesia Post-op nausea: no nausea or vomiting Last Vitals: Filed Vitals: 11/02/14 1736 BP: 109/64 Pulse: 85 Temp: 36.6 ??C (97.9 ??F) Resp: 16 Post-op cardiovascular and respiratory status: is stable Level of consciousness: awake, alert and oriented Complications: no apparent complications and tolerated the procedure well Fluid Status: normal * Anesthesia Preprocedure Evaluation - Luis Bhakta MD - 11/02/2014 2:11 PM EDT Pre-Anesthesia Evaluation for: Jennifer James a 44 y.o. female. Procedure(s): MRI WITH ANESTHESIA Patient Active Problem List Diagnosis ??? Pain in lower jaw Past Medical [...] left jaw s/p removal of foreign body History Substance Use Topics ??? Smoking status: Current Every Day Smoker -- 1.00 packs/day ??? Smokeless tobacco: Never Used ??? Alcohol Use: 0.6 oz/week 0 Not specified, 1 Cans of beer per week Comment: occassionally History Drug Use ??? Yes ??? Special: Marijuana Comment: every day x many years Allergies Allergen Reactions ??? Aspirin CIS - Rash, Headaches ??? Codeine Phosphate CIS - Nausea/Vomiting ??? Penicillins CIS - Rash Medications: MAR and/or home medications have been reviewed. Physical Exam: Filed Vitals: 11/02/14 1359 BP: 144/101 Pulse: 79 Temp: 36.9 ??C (98.4 ??F) Resp: 16 Body mass index is 33.49 kg/(m^2). Height: 160 cm (5' 3) Weight - Scale: 85.73 kg (189 lb) Airway Assessment: Mallampati: II TM distance: >3 FB Neck ROM: full Cardiovascular Assessment: cardiovascular exam normal Pulmonary Assessment: pulmonary exam normal Dental Assessment: (+) lower dentures and upper dentures [facility] Assessment: IV access: Peripheral line Anesthesia Plan: ASA 3 MAC and general, with a(n) intravenous induction 44 y/o woman with a history of smoking, HTN, DM, depression and chronic left jaw pain/lesion for MRI of face. Patient is claustrophobic, stated she has done well with MRI and sedation in the past. Tolerated GA/LMA for I&D of facial abcess. Appropriate NPO status. Plan for MAC vs GA. Region - Other Informed Consent: Anesthetic plan and risks discussed with patient. Plan discussed with TELEPHONE SALES AGENT. Misc. Assessment: documented in this encounter Plan of Treatment Not on file documented as of this encounter Visit Diagnoses Not on filedocumented in this encounter Administered Medications Inactive Administered Medications - up to 3 most recent administrations Medication Order MAR Action Action Date Dose Rate Site lidocaine (PF) (XYLOCAINE) 100 mg/5 mL (2 %) injection PRN, Starting on Sat11/02/14 at 1625, Until Tu11/02/14 at 1736, Anesthesia Intra-op, Routine Given 11/02/2014 4:25 PM EDT 20 mg midazolam (PF) (VERSED) 1 mg/mL multi-dose injection PRN, Starting on Sat11/02/14 at 1528, Until Tu11/02/14 at 1736, Sleep, Anesthesia Intra-op, Routine Given 11/02/2014 3:48 PM EDT 1 mg Given 11/02/2014 3:40 PM EDT 1 mg Given 11/02/2014 3:36 PM EDT 1 mg PHENYLephrine HCl in NS (PF) (NATI-SYNEPHRINE) 0.8 mg/10 mL (80 mcg/mL) multi-dose injection Syrg PRN, Starting on Sat11/02/14 at 1713, Until Tu11/02/14 at 1736, Anesthesia Intra-op, Routine Given 11/02/2014 5:13 PM EDT 80 mcg propofol (DIPRIVAN) 10 mg/mL bolus injection (Anesthesia) PRN, Starting on Sat11/02/14 at 1626, Until 11/02/14 at 1736, Anesthesia Intra-op Given 11/02/2014 4:34 PM EDT 50 m g Given 11/02/2014 4:26 PM EDT 200 mg propofol (DIPRIVAN) infusion CONTINUOUS PRN, Starting on Sat11/02/14 at 1625, Until Tu11/02/14 at 1736, Anesthesia Intra-op, Routine Rate/Dose Change 11/02/2014 5:07 PM EDT 75 mcg/kg/min 38.6 mL/hr Rate/Dose Change 11/02/2014 5:02 PM EDT 100 mcg/kg/min 51. 4 mL/hr Rate/Dose Change 11/02/2014 4:35 PM EDT 150 mcg/kg/min 77. 1 mL/hr documented in this encounter
--- OUTSIDE RECORDS SUMMARY | 2023-09-11 15:44 | XMS_ITS | Encounter Summary ---
Author Organization [facility] Address [facility] [place] [address] Care Team Providers Care First Grade Teacher Name Role Phone Unavailable Primary Care Provider Unavailabl e Reason for Visit * Reason Comments Advice Only left facial jaw absc ess Encounter Details Date Type Department Care Team (Late st Contact Info) Description 10/04/2014 1:50 PM EDT Office Visit [place] [address] CLINIC, Ángel Moncada MD [facility] [place] [address] Pain in lower jaw Discharge Disposition: Home Social History Tobacco [...] Sign Reading Time Taken Comments Blood Pressure 155/95 10/04/2014 1:41 PM EDT Pulse 84 10/04/2014 1:41 PM EDT Temperature - - Respiratory Rate - - Oxygen Saturation - - Inhaled Oxygen Concentration - - Weight 89.1 kg (196 lb 6.4 oz) 10/04/2014 1:41 P M EDT Height 160 cm (5' 3) 10/04/2014 1:41 PM EDT Body Mass Index 34.79 10/04/2014 1:41 PM EDT documented in this encounter Progress Notes * Ángel Brown MD - 10/07/2014 12:42 PM EDT Plastic Surgery Consultation Note PCP: PATTIE SAMUELS APRN (General) Requesting physician: None (Regular Care Provider) CC: Facial trauma HPI: Jennifer James is a 44 y.o. old female who is here in consultation at the request of PCP. The patient reports she was involved in an injury sometime ago to the left jaw.. The patient reported to the ED that day where she was sent for imaging and found to have a foeighn body and then had thisremoved but has had ongoing drainage.. She was discharged and is now referred to the [facility] for further treatment. Since the event she reports facial swelling difficulty chewing, pain in the jaw PMHx: Past Medical History Diagnosis Date ??? [...] All other systems reviewed and negative. x PSHx: Past Surgical History Procedure Laterality Date ??? Cranio/maxillofacial surg unlisted 2012? left jaw s/p removal of foreign body SOCHx: History Social History ??? Marital Status: Spouse Name: N/A Number of Children: N/A ??? Years of Education: N/A Occupational History ??? Not on file. Social History Main Topics ??? Smoking status: Current Every Day Smoker -- 1.00 packs/day ??? Smokeless tobacco: Never Used ??? Alcohol Use: No ??? Drug Use: Yes Special: Marijuana Comment: every day x many years ??? Sexual Activity: Not on file Other Topics Concern ??? Exercise: Patient Reported Yes ??? Abuse Or Threat: Physical, Sexual, Verbal No ??? Abuse Or Threat: Help Requested By Patient No Social History Narrative Meds: No current outpatient prescriptions on file prior to visit. No current facility-administered medications on file prior to visit. Examination: BP 155/95 mmHg Pulse 84 Ht 160 cm (5' 3) Wt 89.086 kg (196 lb 6.4 oz) BMI 34.80 kg/m2 Gen: No acute distress, fluent, follows Facial: [...] regular rate, no stridor, no wheezing Radiology: Atrophic appearing mandible left via outside films Impression: Jennifer James is a 44 y.o. y/o female s/p facial trauma with question of osteomyelitis left mandible. CT scan reviewed at today's visit. We discussed need to identify source of problem and will order an MRI to assess for possible osteomyelitis. Plan: Schedule MRI and plan for outpatient visit after this. documented in this encounter Plan of Treatment Not on file documented as of this encounter Visit Diagnoses Diagnosis Pain in lower jaw Jaw pain documented in this encounter
--- OUTSIDE RECORDS SUMMARY | 2023-09-11 15:44 | XMS_ITS | Encounter Summary ---
Author Organization [place] [address] Care Team Providers Care Miter Saw Operator Name Role Phone Unavailable Primary Care Provider Unavailabl e Encounter Details Date Type Department Care Team (Late st Contact Info) Description 10/06/2014 Orders Only [place] [address] Deepthi Cruz RN Abscess of left jaw Social History Tobacco Use Types Packs/Day Years [...] as of this encounter Visit Diagnoses Diagnosis Abscess of left jaw Inflammatory conditions of jaw documented in this encounter
--- OUTSIDE RECORDS SUMMARY | 2023-09-11 15:44 | XMS_ITS | Encounter Summary ---
Author Organization [facility] Address [facility] [place] [address] Care Team Providers Care Mason Liner Name Role Phone None Primary Care Provider Unavailabl e Encounter Details Date Type Department Care Team ([facility] st Contact Info) Description 03/08/2014 Orders [place] [address] Foreign Lion MD [facility] [place] [address] Social History Tobacco Use Types Packs/Day Years [...] FILM LIBRARY STORAGE ONLY CT HEAD Routine 03/08/2014 9:30 AM EST documented in this encounter Results * Film Library- Storage only CT Head (03/08/2014 9:30 AM EST) Anatomical Region Laterality Modality Head Other 03/08/2014 9:30 AM EST Narrative 03/22/2014 9:09 AM EST This is a Non-reportable exam Procedure Note MARIELA, UNSIGNED REPORT - 03/22/2014 This is a Non-reportable exam Foreign Lion MD G FILM LIBRARY ORD ERABLES documented in this encounter Visit Diagnoses Not on filedocumented in this encounter Care Teams Mason Liner Relationship Specialty Start Date End Date None None PCP - General 01/17/10 03/17/14 documented as of this encounter
[2023-09-11 20:56] LABS: Bilirubin Negative (Negative); Blood Negative (Negative); Clarity Clear (Clear); Glucose Negative (Negative); Ketones Negative (Negative); Leukocyte Esterase Negative (Negative); Nitrite Negative (Negative); Specific Gravity 1.015 (1.005-1.025); Urobilinogen 0.2 mg/dL (Up to 0.2); pH 5.5 (5-8)
[2023-09-11 21:12] LABS: Bacteria Moderate HPF (Negative); C & S Indicated? No; Crystals Negative HPF (Negative); Epithelial Cells Moderate HPF (Negative); Mucus Negative (Negative); RBC Negative HPF (0-2)
== END 2023-09-11 15:29 | disposition home or self-care (01) ==
LOC: LBN 15:28
PROVIDERS: PCP Family Medicine; Visit Provider Family Medicine
DX: R82.998 Other abnormal findings in urine (principal); I10 Essential (primary) hypertension; E87.8 Other disorders of electrolyte and fluid balance, not elsewhere classified
CPT/HCPCS: 81003; 81015

== ENCOUNTER 2023-11-15 15:13 | Outpatient (REF) | payer MEDICAID, SELFPAY | END 2023-11-15 15:14 | disposition home or self-care (01) | LOC: NCHCN 15:13 | PROVIDERS: PCP Family Medicine; Visit Provider Student in an Organized Health Care Education/Training Program | DX: L97.511 Non-pressure chronic ulcer of other part of right foot limited to breakdown of skin (principal); B95.62 Methicillin resistant Staphylococcus aureus infection as the cause of diseases classified elsewhere | CPT/HCPCS: 87077; 87070; 87186; 87205 ==

== ENCOUNTER 2023-11-19 14:40 | Emergency (ER) | payer MEDICAID, SELFPAY ==
[2023-11-19 14:41] VITALS: BP 135/82; PULSE 96; TEMP 36.6; O2SAT 97
--- NOTE | 2023-11-19 14:45 | DI.RAD_ITS ---
Exam(s) XR FOOT RT COMPLETE EXAM: XR FOOT RT COMPLETE CLINICAL HISTORY: wound on dorsal surface of foot. TECHNIQUE: 2D digital imaging was performed. COMPARISON: No exams were available for comparison FINDINGS: 3 views There is soft tissue swelling of the dorsal aspect of the foot. There is no evidence of acute fracture or diastasis of the Lisfranc joint. Great toe metatarsophalan geal joint appears unremarkable. No pes planus. No osseous lesions nor erosions. No radiopaque for eign bodies evident. No radiographic evidence of osteomyelitis. There is a moderate size inferior calcaneal spur and there is also a small enthesophyte on the auto repair technician ior calcaneus Achilles insertion site. IMPRESSION: Dorsal soft tissue swelling. No fractures. No radiographic evidence of osteomyelitis. DATA REPOSITORY: RADIATION DOSE DELIVERED:
[2023-11-19 14:46] VITALS: BP 135/82; PULSE 96; TEMP 36.6; O2SAT 97
--- NOTE | 2023-11-19 14:59 | ED.GENADUL_ITS ---
Discharge Plan Disposition Patient Disposition: Home Condition: Stable Discharge Details Clinical Impression: Cellulitis of foot, right Primary Care Provider: Janelle Huitron ED Provider: Reese Hayes Home Meds and New Rx's Prescriptions: New ciprofloxacin HCl 500 mg tablet 500 mg PO BID Qty: 14 0RF Continued acetaminophen 500 mg capsule 1,000 mg PO Q6H PRN amlodipine 10 mg tablet 10 mg PO DAILY clonidine 0.2 mg/24 hr patch weekly 1 patch transdermal QWEEK docusate sodium 100 mg capsule 100 mg PO BID PRN furosemide 40 mg tablet 40 mg PO DAILY insulin aspart U-100 100 unit/mL (3 mL) insulin pen 6 unit subcut TID insulin aspart U-100 100 unit/mL (3 mL) insulin pen 5 unit subcut HS insulin glargine 100 unit/mL solution 48 unit subcut DAILY lorazepam 0.5 mg tablet 0.5 mg PO DAILY PRN melatonin 3 mg capsule 6 mg PO HS PRN metformin 1,000 mg tablet 1,000 mg PO BID methocarbamol 1,000 mg tablet 1,000 mg PO QID multivitamin with iron Tablet 1 tab PO DAILY oxycodone 10 mg tablet 10 mg PO Q4H PRN sertraline 25 mg tablet 100 mg PO DAILY naloxone [Narcan] 4 mg/actuation spray,non-aerosol 4 mg intranasal Q2M PRN Rx Instructions: spray 1 dose into ONE nostril; alternate nostrils w each dose until help arrives doxycycline hyclate 100 mg tablet 100 mg PO BID Patient Comments: TAKE ONE TABLET BY MOUTH TWICE A DAY mupirocin 2 % ointment 1 applic TOPICAL DAILY Patient Comments: APPLY A SMALL AMOUNT TO AFFECTED AREA(S) THREE TIMES A DAY Discharge Instructions Additional Instructions: I am adding ciprofloxacin to your antibiotic regimen. Follow-up with your PCP on as scheduled If you feel more ill or have new symptoms such as high fevers return to the emergency department for reevaluation. HPI General Date/Time Provider Initiated Documentation: 11/19/23 14:42 . Limitations to Documentation: no limitations . Information obtained by: patient . History of Present Illness 53 year old F presents to the emergency department with the chief complaint of right foot wound, described as mild, Quality is described as aching, and is localized to the right and lower extremity. Patient reports no radiation. Patient started experiencing this day(s) (10) and it has been constant. No relieving factors improve symptom(s), No exacerbating factors reported . Patient notes no other symptoms.; denies fever/chills. Related Data Home Medications ?Medication ?Instructions ?Recorded ?Confirmed acetaminophen 500 mg capsule 1,000 mg PO Q6H PRN 09/02/23 11/19/23 amlodipine 10 mg tablet 10 mg PO DAILY 09/02/23 11/19/23 clonidine 0.2 mg/24 hr weekly 1 patch transdermal QWEEK 09/02/23 11/19/23 transdermal patch docusate sodium 100 mg capsule 100 mg PO BID PRN 09/02/23 11/19/23 furosemide 40 mg tablet 40 mg PO DAILY 09/02/23 11/19/23 insulin aspart U-100 100 unit/mL 5 unit subcut HS 09/02/23 11/19/23 (3 mL) subcutaneous pen insulin aspart U-100 100 unit/mL 6 unit subcut TID 09/02/23 11/19/23 (3 mL) subcutaneous pen insulin glargine 100 unit/mL 48 unit subcut DAILY 09/02/23 11/19/23 subcutaneous solution lorazepam 0.5 mg tablet 0.5 mg PO DAILY PRN 09/02/23 11/19/23 melatonin 3 mg capsule 6 mg PO HS PRN 09/02/23 11/19/23 metformin 1,000 mg tablet 1,000 mg PO BID 09/02/23 11/19/23 methocarbamol 1,000 mg tablet 1,000 mg PO QID 09/02/23 11/19/23 multivitamin with iron 1 tab PO DAILY 09/02/23 11/19/23 oxycodone 10 mg tablet 10 mg PO Q4H PRN 09/02/23 11/19/23 naloxone 4 mg/actuation nasal 4 mg intranasal Q2M PRN 09/25/23 11/19/23 spray (Narcan) sertraline 25 mg tablet 100 mg PO DAILY 11/07/23 11/19/23 ciprofloxacin HCl 500 mg tablet 500 mg PO BID #14 tabs 11/19/23 doxycycline hyclate 100 mg tablet 100 mg PO BID 11/19/23 11/19/23 mupirocin 2 % topical ointment 1 applic topical DAILY 11/19/23 11/19/23 Previous Rx's ?Medication ?Instructions ?Recorded ciprofloxacin HCl 500 mg tablet 500 mg PO BID #14 tabs 11/19/23 Allergies Allergy/AdvReac Type Severity Reaction Status Date / Time aspirin Allergy Intermediate lip Unverified 11/19/23 14:43 swelling Penicillins Allergy Intermediate lip Unverified 11/19/23 14:43 swelling duloxetine HCl (From AdvReac Severe suicidal Unverified 11/19/23 14:43 Cymbalta) ideations pregabalin (From Lyrica) AdvReac Severe suidial Unverified 11/19/23 14:43 ideations codeine AdvReac Mild Nausea Unverified 11/19/23 14:43 apple AdvReac Hives Verified 11/19/23 14:43 General Stated Complaint: Cellulitis JESUS: 3 Review of Systems All systems reviewed & are unremarkable except as noted in HPI and below Constitutional Constitutional: Denies chills and Denies fever(s) Cardiovascular Cardiovascular: Denies chest pain and Denies dyspnea Respiratory Respiratory: Denies cough and Denies dyspnea Gastrointestinal Gastrointestinal: Denies abdominal pain, Denies nausea and Denies vomiting Musculoskeletal Musculoskeletal: Denies joint swelling Integumentary/Breasts Skin/Breast: Reports rash Psychiatric Psychiatric: Denies depression Exam Const General: no acute distress Orientation: alert HENMT Head: normal to inspection Ears: external ears normal General nose exam: external nose normal Mouth: moist mucous membranes Eyes General: appearance normal, both eyes and all related structures Neck Neck: normal visual inspection Resp Effort & Inspection: normal respiratory effort and able to speak in complete sentences Cardio Rate: regular rate Skin General skin exam: no rashes or lesions noted Neuro General: patient alert and patient oriented x3 Extrem General: full ROM and capillary refill normal Psych Mental Status: mental status grossly normal Course Vital Signs Vital signs: Vital Signs Temperature 36.6 C 11/19/23 14:41 Pulse 96 H 11/19/23 14:41 Blood Pressure 135/82 11/19/23 14:41 Pulse Oximetry 97 11/19/23 14:41 Temperature 36.6 C 11/19/23 14:46 Temperature Source Oral 11/19/23 14:46 Pulse 96 H 11/19/23 14:46 Respiratory Effort Normal, Non-Labored 11/19/23 14:47 Blood Pressure 135/82 11/19/23 14:46 Pulse Oximetry 97 11/19/23 14:46 Medical Decision Making 53-year-old female who had a prior history of necrotizing fasciitis, diabetes, who is a wound on her right foot for about 10 days. She denies any fevers or systemic symptoms. She started doxycycline on Saturday and home health nursing felt it was not improving today so sent her here for evaluation. She appears well on exam, has stable vital signs. She has a superficial half a centimeter in diameter circular wound on the mid dorsal portion of her foot, there is approximately 2 to 3 mm of surrounding erythema. There is no tunneling wound, she has full range of motion of the foot without significant swelling. Suspect diabetic foot wound, will check inflammatory markers and CBC and obtain an x-ray though my suspicion for osteo or nec fasc is low based on exam. She does have a wound culture from earlier this month that grows MRSA which does not show sensitivities to doxycycline but is susceptible to Bactrim and Cipro. If reassuring workup we will consider adding either 1 of these to her regimen. esr and crp elevated, does have wbc of 14 which she's had previously, x-ray shows soft tissue swelling without visible bony pathology. She is hemodynamically stable and still appears well. Will add Cipro to her regimen and have her follow-up with her PCP which she has scheduled on , return precautions given Differential Diagnosis Differential Diagnosis: Chronic wound, diabetic foot infection Medical Records Medical records reviewed: Yes I reviewed the patient's medical records. Lab Data Lab results reviewed: Yes I reviewed the patient's lab results. Quality:SDOH Health Related Social Needs: Health related social needs inadequate housing, transp o insecurity PFSH All Active Problems (Updated 11/19/23 @ 16:57 by Reese Hayes MD) Cellulitis of foot, right (Acute) Acute respiratory failure with hypoxia (Acute ~06/26/23) Necrotizing fasciitis (Acute) Cholesteatoma of right ear (Acute) Impacted cerumen, left ear (Acute) Chronic otitis externa of right ear (Acute) Chronic serous otitis media (Acute) Chronic dysfunction of both eustachian tubes (Acute) Chronic otitis externa of left ear (Acute) Impacted cerumen, bilateral (Acute) Chronic diffuse otitis externa of both ears (Acute) Otorrhea, right ear (Acute) Mass of left ear canal (Acute) 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 (Acute) Other noninfective acute otitis externa, bilateral (Acute) Tobacco use (Acute) Mixed hearing loss, bilateral (Acute) Medical History Type 2 diabetes mellitus Diabetic neuropathy Heart block Essential hypertension Moderate depressive disorder Generalized anxiety disorder Alcohol abuse Edema of lower extremity Hearing loss Cardiopulmonary arrest with successful resuscitation (~06/15/23) At [facility] Complete heart block (~06/17/23) Obesity Hypertension Chronic abscess of jaw COPD (chronic obstructive pulmonary disease) Neuropathy Depression Diabetes Surgical History History of skin graft (~07/31/23) at [facility] Incision & Drainage, Abscess or Hematoma left jaw-10/07 Social History Smoking/Tobacco Use Status: Current every day Tobacco Type: cigarettes Smoking risk assessment performed?: Yes Alcohol Intake: current Alcohol Intake frequency: 0-2 drinks per day Alcohol type: beer Drug use: Daily Substance use type: marijuana Housing: apartment Do you feel safe in your relationship?: Yes
[2023-11-19 15:50] LABS: Abs Immature Grans 0.13 10^3/uL (0.0-0.06); Absolute Basophil Count 0.09 10^3/uL (0.0-0.2); Absolute Eosinophil Count 0.29 10^3/uL (0.0-0.7); Absolute Lymphocyte Count 2.47 10^3/uL (1.2-3.4); Absolute Monocyte Count 0.61 10^3/uL (0.1-0.8); Basophils % 0.6 %; HCT 34.4 % (36.0-46.0); HGB 11.4 g/dL (11.2-15.7); Immature Grans % 0.9 %; Lymphocytes % 17.1 %; MCH 27.2 pg (27.0-33.0); MCHC 33.1 % (32.0-36.0); MCV 82 fL (80-95); MPV 10.2 fL (8.0-11.0); Monocytes % 4.2 %; Neutrophils % 75.2 %; Platelet Count 350 10^3/uL (130-400); RBC 4.19 10^6/uL (3.93-5.22); RDW 14.5 % (11.7-14.6); RDW-SD 43.2 fL; WBC 14.45 10^3/uL (4.4-10.8)
[2023-11-19 15:58] LABS: Absolute Neutrophil Count 10.87 10^3/uL (1.2-6.7); ESR 42 mm/hr (0-30)
[2023-11-19 16:09] LABS: ALT 22 U/L (14-59); AST 16 U/L (15-37); Albumin 3.6 g/dL (3.4-5.0); Alkaline Phosphatase 97 U/L (46-116); Anion Gap 11.4 mmol/L (3-11); BUN 39 mg/dL (7-18); Bilirubin, Total 0.39 mg/dL (0.2-1.0); C-Reactive Protein 0.92 mg/dL (<or=0.5); CO2 28.6 mmol/L (21.0-32.0); Calcium 9.5 mg/dL (8.5-10.1); Chloride 94 mmol/L (98-107); Estimated GFR 67.36 (mL/min/1.73m2); Glucose 199 mg/dL (74-106); Potassium 3.3 mmol/L (3.5-5.1); Sodium 134 mmol/L (136-145); Total Protein 8.1 g/dL (6.4-8.2)
[2023-11-19 16:19] LABS: Procalcitonin < 0.1 ng/mL
--- NOTE | 2023-11-19 16:52 | NUR.NOTE ---
call Nicki [phone] if cannot find ride Nursing Note:
[2023-11-19] MEDS: Ciprofloxacin 500 MG TAB PO (17:01)
[2023-11-19 17:05] VITALS: BP 158/73; PULSE 80; RESP 16; O2SAT 99
== END 2023-11-19 17:31 | disposition home or self-care (01) ==
PROVIDERS: Emergency Provider Emergency Medicine; PCP Family Medicine
DX: L03.115 Cellulitis of right lower limb (principal)
CPT/HCPCS: 36415; 80053; 84145; 85652; 99283; 73630; 85025; 86140

== ENCOUNTER 2024-01-08 00:52 | Outpatient (CLI) | payer MEDICAID, SELFPAY ==
--- NOTE | 2024-01-08 12:01 | DI.RAD_ITS ---
Exam(s) XR FOOT LT COMPLETE EXAM: XR FOOT LT COMPLETE CLINICAL HISTORY: Comparison views,pain lt foot,m79.672. TECHNIQUE: 2D digital imaging was performed of the left foot. Three images were obtained. AP, obli que and lateral views were obtained. COMPARISON: CR LEFT FOOT COMPLETE from 09/23/2015 FINDINGS: BONES: No acute fracture is present. No bony destructive lesion is seen. There is an enthesophyte at the posterior calcaneus. JOINTS: No dislocation present. Mild degenerative changes are seen at the talonavicular joint. SOFT TISSUE: There is soft tissue swelling of the dorsum of the foot. No soft tissue gas is seen. V ascular calcifications are present. IMPRESSION: Soft tissue swelling of the dorsum of the left foot. No soft tissue gas is seen. No acute fracture or dislocation is present. DATA REPOSITORY: RADIATION DOSE DELIVERED:
--- NOTE | 2024-01-08 12:01 | DI.RAD_ITS ---
Exam(s) XR FOOT RT COMPLETE EXAM: XR FOOT RT COMPLETE CLINICAL HISTORY: Ulcer to the central metatarsal area,diabetic ulcer,e11.621,l97.519. TECHNIQUE: 2D digital imaging was performed of the right foot. Three images were obtained. AP, obl ique and lateral views were obtained. COMPARISON: CR XR FOOT RT COMPLETE from 11/19/2023 FINDINGS: BONES: No acute fracture is present. No bony destructive lesion is seen. There is an enthesophyte at the posterior calcaneus. There is a moderate plantar calcaneal spur. There is a stable deformity se en at the base of the proximal phalanx of the 5th toe. JOINTS: No dislocation present. SOFT TISSUE: There is soft tissue swelling on the dorsum of the foot. No soft tissue gas is identifi ed. IMPRESSION: No radiographic evidence to suggest osteomyelitis. DATA REPOSITORY: RADIATION DOSE DELIVERED:
== END 2024-01-08 01:12 ==
LOC: DI 00:52
PROVIDERS: PCP Family Medicine; Visit Provider Podiatrist
DX: E11.621 Type 2 diabetes mellitus with foot ulcer (principal); L97.519 Non-pressure chronic ulcer of other part of right foot with unspecified severity
CPT/HCPCS: 73630

== ENCOUNTER 2024-01-17 11:15 | Outpatient (REF) | payer MEDICAID, SELFPAY ==
[2024-01-17 11:57] LABS: BUN 30 mg/dL (7-18); CREATININE 0.9 mg/dL (0.55-1.02); Estimated GFR 76.44 (mL/min/1.73m2)
[2024-01-17 11:59] LABS: Abs Immature Grans 0.16 10^3/uL (0.0-0.06); Absolute Basophil Count 0.07 10^3/uL (0.0-0.2); Absolute Eosinophil Count 0.27 10^3/uL (0.0-0.7); Absolute Lymphocyte Count 2.28 10^3/uL (1.2-3.4); Absolute Monocyte Count 0.67 10^3/uL (0.1-0.8); Absolute Neutrophil Count 8.95 10^3/uL (1.2-6.7); Basophils % 0.6 %; Eosinophils % 2.2 %; HCT 35.1 % (36.0-46.0); HGB 11.4 g/dL (11.2-15.7); Immature Grans % 1.3 %; Lymphocytes % 18.4 %; MCH 27.7 pg (27.0-33.0); MCHC 32.5 % (32.0-36.0); MCV 85 fL (80-95); MPV 11.8 fL (8.0-11.0); Monocytes % 5.4 %; Neutrophils % 72.1 %; Platelet Count 294 10^3/uL (130-400); RBC 4.11 10^6/uL (3.93-5.22); RDW 15.3 % (11.7-14.6); RDW-SD 47.5 fL; WBC 12.41 10^3/uL (4.4-10.8)
[2024-01-17 12:05] LABS: Prothrombin Time 9.9 sec (9.1-11.1)
== END 2024-01-17 11:16 | disposition home or self-care (01) ==
LOC: NCHCN 11:15
PROVIDERS: PCP Family Medicine; Visit Provider Family Medicine
DX: M72.6 Necrotizing fasciitis (principal); I10 Essential (primary) hypertension; E87.8 Other disorders of electrolyte and fluid balance, not elsewhere classified; E11.40 Type 2 diabetes mellitus with diabetic neuropathy, unspecified
CPT/HCPCS: 84520; 82565; 85025; 85610

== ENCOUNTER 2024-05-07 02:39 | Outpatient (CLI) | payer MEDICAID, SELFPAY ==
[2024-05-07] MEDS: Levalbuterol HFA 15 GM INH 4 PUFF IH (16:22)
[2024-05-07] MEDS: Inhaler, Assist Device 1 EACH MC (16:22)
--- NOTE | 2024-05-10 16:17 | W.PFT ---
Date of service: 05/07/24 Time of Service: 15:04 Pulmonary Function Test Result Indications: Dyspnea Interpretation Spirometry: There is no airflow limitation. No significant bronchodilator response. Lung Volumes: Normal lung volumes Diffusion Capacity: Decreased diffusion Airway Pressure: Normal airways resistance Impression Isolated diffusion deficit. Clinical Correlation therefore is recommended.
== END 2024-05-07 02:40 | disposition home or self-care (01) ==
LOC: RT 02:40
PROVIDERS: PCP Family Medicine; Visit Provider Student in an Organized Health Care Education/Training Program
DX: F17.210 Nicotine dependence, cigarettes, uncomplicated (principal); R06.00 Dyspnea, unspecified
CPT/HCPCS: 94060; 94726; 94729

== ENCOUNTER 2024-05-22 13:49 | Inpatient (IN) | payer MEDICAID, SELFPAY ==
[2024-05-22] VITALS (22 sets, daily range): BP systolic 106–193; BP diastolic 74–117; PULSE 75–94; RESP 10–22; TEMP 36.4–36.8; O2SAT 98–100
--- NOTE | 2024-05-22 13:45 | RT.EKG_ITS ---
APPROVED REPORT Exam: Resting ECG Reason for Exam: Abdominal Pain Patient Location: E HR:91 bpm ECG Measurements Heart Rate 91 AXIS ND 171 P 64 QRSd 92 QRS 68 QT 378 T 74 QTc 465 Conclusion Sinus rhythm...normal P axis, V-rate 60- 99 Probable left atrial enlargement...P >50mS, <-0.10mV V1 Probable lateral infarct, age indeterminate...Q >35mS, T neg, V5-V6 I aVL Normal [place]/Interval. Anterior Q waves perviously present since 2009. Mild ST depression in inferior leads.
--- NOTE | 2024-05-22 14:04 | ED.GENADUL_ITS ---
Discharge Plan Disposition Patient Disposition: Admit to [facility] Condition: Fair Discharge Details Clinical Impression: Pancreatitis, Dehydration, Constipation Primary Care Provider: Janelle Huitron ED Provider: Tulio Serrano [place] Meds and New Rx's Prescriptions: No Action acetaminophen 500 mg capsule 1,000 mg PO Q6H PRN amlodipine 10 mg tablet 10 mg PO DAILY clonidine 0.2 mg/24 hr patch weekly 1 patch transdermal QWEEK docusate sodium 100 mg capsule 100 mg PO BID PRN furosemide 40 mg tablet 40 mg PO DAILY insulin glargine 100 unit/mL solution 48 unit subcut DAILY melatonin 3 mg capsule 6 mg PO HS PRN metformin 1,000 mg tablet 1,000 mg PO BID methocarbamol 1,000 mg tablet 1,000 mg PO QID multivitamin with iron Tablet 1 tab PO DAILY naloxone [Narcan] 4 mg/actuation spray,non-aerosol 4 mg intranasal Q2M PRN Rx Instructions: spray 1 dose into ONE nostril; alternate nostrils w each dose until help arrives acetylcysteine [NAC] 600 mg capsule 600 mg PO BID rosuvastatin 20 mg tablet 20 mg PO DAILY varenicline tartrate [Chantix] 1 mg tablet 1 mg PO BID clopidogrel 75 mg tablet 75 mg PO DAILY Ozempic 0.25 mg or 0.5 mg(2 mg/1.5 mL) pen injector 0.25 mg subcut QWEEK Rx Instructions: for 4 weeks venlafaxine 150 mg tablet extended release 24hr 75 mg PO DAILY sertraline 50 mg tablet 150 mg PO DAILY Patient Comments: actively being tapered- to be stopped by 04/25/24. HPI General Mode of arrival: EMS . Date/Time Provider Initiated Documentation: 05/22/24 14:02 . Limitations to Documentation: no limitations . Information obtained by: patient, RN notes reviewed and old records reviewed . HPI Narrative: Patient presents to ED by ambulance with complaint of not feeling well. Patient is not providing me anything specific. She reports no bowel movement for 2 weeks but denies having abdominal pain. Does feel like she needs to use the bathroom but is unable to have bowel movement. She began with nausea and vomiting 1 week ago and now reports not able to keep anything down. She reports chest pain but only when she is trying to push and have a bowel movement. She denies cough or shortness of breath. She has back pain which she reports has chronic. Some neck and upper back pain which is new but cannot really give me a timeline. No neurologic changes. Still making some urine. Does not know whether she has had fever or not. Has not been in touch with primary care since developing symptoms. Denies any previous abdominal surgeries but has had debridement and skin grafting for necrotizing fasciitis in the perineal area as well as stent placement and lower extremities for PAD. Related Data Home Medications ?Medication ?Instructions ?Recorded ?Confirmed acetaminophen 500 mg capsule 1,000 mg PO Q6H PRN 09/02/23 05/22/24 amlodipine 10 mg tablet 10 mg PO DAILY 09/02/23 05/22/24 clonidine 0.2 mg/24 hr weekly 1 patch transdermal QWEEK 09/02/23 05/22/24 transdermal patch docusate sodium 100 mg capsule 100 mg PO BID PRN 09/02/23 05/22/24 furosemide 40 mg tablet 40 mg PO DAILY 09/02/23 05/22/24 insulin glargine 100 unit/mL 48 unit subcut DAILY 09/02/23 05/22/24 subcutaneous solution melatonin 3 mg capsule 6 mg PO HS PRN 09/02/23 05/22/24 metformin 1,000 mg tablet 1,000 mg PO BID 09/02/23 05/22/24 methocarbamol 1,000 mg tablet 1,000 mg PO QID 09/02/23 05/22/24 multivitamin with iron 1 tab PO DAILY 09/02/23 05/22/24 naloxone 4 mg/actuation nasal 4 mg intranasal Q2M PRN 09/25/23 05/22/24 spray (Narcan) acetylcysteine 600 mg capsule (NAC) 600 mg PO BID 12/18/23 05/22/24 rosuvastatin 20 mg tablet 20 mg PO DAILY 12/18/23 05/22/24 clopidogrel 75 mg tablet 75 mg PO DAILY 03/18/24 05/22/24 semaglutide 0.25 mg or 0.5 mg (2 0.25 mg subcut QWEEK 03/18/24 05/22/24 mg/1.5 mL) subcutaneous pen injector (Ozempic) venlafaxine 150 mg tablet,extended 75 mg PO DAILY 03/25/24 05/22/24 release 24 hr sertraline 50 mg tablet 150 mg PO DAILY 03/30/24 05/22/24 varenicline tartrate 1 mg tablet 1 mg PO BID 04/23/24 05/22/24 (Chantix) Allergies Allergy/AdvReac Type Severity Reaction Status Date / Time aspirin Allergy Intermediate lip Unverified 05/22/24 14:01 swelling Penicillins Allergy Intermediate lip Unverified 05/22/24 14:01 swelling duloxetine HCl (From AdvReac Severe suicidal Unverified 05/22/24 14:01 Cymbalta) ideations pregabalin (From Lyrica) AdvReac Severe suidial Unverified 05/22/24 14:01 ideations codeine AdvReac Mild Nausea Unverified 05/22/24 14:01 apple AdvReac Hives Verified 05/22/24 14:01 General Stated Complaint: Abd Prob JESUS: 3 Exam Narrative Exam Narrative: Const: WDWN female looks unwell but in NAD. VS per triage. HEENT: NC/AT. Normal facial exam. Neck: Supple. Trachea midline. Lungs: Normal respiratory effort. Lungs are clear. Cor: RRR without murmur. GI: Soft/ND/NT. Neuro: A+O x 3. Normal speech, mentation. Cranial nerves II - XII grossly intact. No gross motor or sensory deficit. Ext: Cold peripherally both upper and lower extremities. Course Vital Signs Vital signs: Vital Signs Temperature 98.2 F 05/22/24 13:55 Pulse 94 H 05/22/24 13:55 Respiratory Rate 22 05/22/24 13:55 Blood Pressure 106/74 05/22/24 13:55 Pulse Oximetry 98 05/22/24 13:55 Temperature 98.2 F 05/22/24 13:55 Pulse 94 H 05/22/24 13:55 Respiratory Rate 22 05/22/24 13:55 Blood Pressure 106/74 05/22/24 13:55 Pulse Oximetry 98 05/22/24 13:55 Pain Level 6 05/22/24 13:55 Medical Decision Making Patient is a 53-year-old diabetic with previous history of necrotizing fasciitis involving the perineal area, peripheral arterial disease with stents in lower extremities, no previous abdominal surgeries presenting with feeling unwell, constipated, vomiting. She denies having abdominal pain. She reports chest pain but only when trying to strain to have a bowel movement. Denies any shortness of breath. Looks unwell but is in no distress, peripherally feels clamped down but has normal blood pressure and heart rate. Received acetaminophen, fentanyl, Zofran from EMS. She does complain of back pain as well as neck pain. IV is in place. Her EKG is sinus rhythm with normal axis and intervals, Q waves anteriorly which are old and present since 2009, some ST depression inferiorly. Will start with a liter of saline, obtain laboratory studies including lactic acid and VBG, obtain CT of the abdomen pelvis. 16:30 - Patient's lab significant for white count of 13.4 with normal hemoglobin. She has a respiratory alkalosis with a venous pH of 7.49, pCO2 36, bicarb 27. Lactate is 2.5. She has some evidence of ESTEBAN likely related to dehydration with a creatinine 1.2, baseline 0.8. Calcium is little high and her magnesium a little low. Her lipase is elevated to 35, liver function unremarkable. Trop is normal. Patient requestioned regarding back pain and it is in the mid consistent with pancreatitis. She reports no alcohol consumption over the last year. CT scan with large amount of stool throughout the colon but no evidence of obstruction, otherwise no acute pathology per radiology. Patient not feeling significantly better. Not really tolerating anything at home in regards to oral intake. She is agreeable to admission. Case discussed with hospitalist. Patient will be seen and admitted by hospitalist service for pancreatitis, dehydration, constipation. Urinalysis is pending. Medical Records Medical records reviewed: Yes I reviewed the patient's medical records. Medical records narrative: outpatient notes, [facility] studies Lab Data Lab results reviewed: Yes I reviewed the patient's lab results. Lab results narrative: see [facility] ECG Data Attestation: I personally reviewed and interpreted this ECG (s) as follows: Prior ECG tracings: available for review (from 2009) Interpretation: see EKG/[facility] PFSH All Active Problems (Updated 05/22/24 @ 16:34 by Tulio Serrano MD) Constipation (Acute) Dehydration (Acute) Pancreatitis (Chronic) Anal skin tag (Acute) Impairment of speech discrimination (Acute) Cellulitis (Acute) Pain in left foot (Acute) Diabetic ulcer of right foot (Acute) Chronic ulcer of right foot (Acute) Non-healing ulcer of right foot (Acute) Ischemic ulcer of right foot (Acute) Pressure ulcer of right foot, unstageable (Acute) Cholesteatoma of right ear (Acute) Impacted cerumen, left ear (Acute) Chronic otitis externa of right ear (Acute) Chronic serous otitis media (Acute) Chronic dysfunction of both eustachian tubes (Acute) Chronic otitis externa of left ear (Acute) Impacted cerumen, bilateral (Acute) Chronic diffuse otitis externa of both ears (Acute) Otorrhea, right ear (Acute) Mass of left ear canal (Acute) 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 (Acute) Other noninfective acute otitis externa, bilateral (Acute) Tobacco use (Acute) Mixed hearing loss, bilateral (Acute) Medical History Necrotizing fasciitis PAD (peripheral artery disease) Type 2 diabetes mellitus Diabetic neuropathy Essential hypertension Moderate depressive disorder Generalized anxiety disorder Alcohol abuse Edema of lower extremity Hearing loss Cardiopulmonary arrest with successful resuscitation (~06/15/23) At [facility] [[email or web address] Complete heart block (~06/17/23) Obesity Chronic abscess of jaw COPD (chronic obstructive pulmonary disease) Surgical History S/P angioplasty with stent 01/27/24 [facility]; R [id number] popliteal and SFA (Innova Stent x 2) History of skin graft (~07/31/23) at [facility] [[email or web address]] Incision & Drainage, Abscess or Hematoma left jaw-10/07 Social History Smoking/Tobacco Use Status: Current every day Tobacco Type: cigarettes Smoking risk assessment performed?: Yes Alcohol Intake: current Alcohol Intake frequency: 0-2 drinks per day Alcohol type: beer Drug use: Daily Substance use type: marijuana Housing: apartment Do you feel safe in your relationship?: Yes
[2024-05-22 14:32] LABS: BE (Venous) 4 mmol/L (-2-3); HCO3 (Venous) 27 mmol/L (23-28); O2 Sat (Venous) 66 %; TCO2 (Venous) 25 mmol/L (24-29); pCO2 (Venous) 36 mmHg (41-51); pH (Venous) 7.49 (7.31-7.41); pO2 (Venous) 33 mmHg
[2024-05-22 14:33] LABS: Lactate 2.5 mmol/L (<or=2.0)
[2024-05-22 14:51] LABS: ALT 21 U/L (14-59); AST 13 U/L (15-37); Albumin 4.3 g/dL (3.4-5.0); Alkaline Phosphatase 111 U/L (46-116); Anion Gap 14.2 mmol/L (3-11); BUN 31 mg/dL (7-18); Bilirubin, Total 0.5 mg/dL (0.2-1.0); CO2 26.8 mmol/L (21.0-32.0); CREATININE 1.2 mg/dL (0.55-1.02); Calcium 10.4 mg/dL (8.5-10.1); Chloride 96 mmol/L (98-107); Estimated GFR 54.13 (mL/min/1.73m2); Glucose 149 mg/dL (74-106); Lipase 235 U/L (<78); Magnesium 1.6 mg/dL (1.8-2.4); Potassium 3.6 mmol/L (3.5-5.1); Sodium 137 mmol/L (136-145); Total Protein 8.5 g/dL (6.4-8.2); Troponin I 9 ng/L (<or=51)
[2024-05-22] MEDS: Normal Saline 1,000 ML 1000 ML IV (14:51)
[2024-05-22 14:54] LABS: Abs Immature Grans 0.06 10^3/uL (0.0-0.06); Absolute Basophil Count 0.07 10^3/uL (0.0-0.2); Absolute Monocyte Count 0.74 10^3/uL (0.1-0.8); Basophils % 0.5 %; HCT 36.1 % (36.0-46.0); HGB 12.6 g/dL (11.2-15.7); Immature Grans % 0.4 %; Lymphocytes % 16.1 %; MCH 28.4 pg (27.0-33.0); MCHC 34.9 % (32.0-36.0); MCV 81 fL (80-95); Monocytes % 5.5 %; Neutrophils % 76.5 %; Platelet Count 357 10^3/uL (130-400); RBC 4.44 10^6/uL (3.93-5.22); RDW 13.2 % (11.7-14.6); RDW-SD 38.7 fL; WBC 13.38 10^3/uL (4.4-10.8)
[2024-05-22 14:55] LABS: Absolute Eosinophil Count 0.13 10^3/uL (0.0-0.7); Absolute Lymphocyte Count 2.15 10^3/uL (1.2-3.4); Absolute Neutrophil Count 10.24 10^3/uL (1.2-6.7)
[2024-05-22] MEDS: Normal Saline - Diluent 50 ML VIAL IJ (15:53)
[2024-05-22] MEDS: Omnipaque 350 MG/ML 100 ML BTL 70 ML IJ (15:54)
--- NOTE | 2024-05-22 15:55 | DI.CT_ITS ---
Exam(s) CT ABDOMEN PELVIS W EXAM: CT ABDOMEN PELVIS W CLINICAL HISTORY: vomiting 1 week; no BM 2 weeks. TECHNIQUE: Imaging Protocol: Axial computed tomography images with coronal and sagittal reformatted images were created and reviewed CONTRAST MATERIAL: Intravenous: Omnipaque 350 Contrast volume:75 ml Oral: no COMPARISON: CT CT PELVIC W from 06/12/2023 FINDINGS: ABDOMEN and PELVIS: Lung Bases: No acute findings. Liver: Normal density. No suspicious mass. Gallbladder and biliary tract: No radiodense calculus. No wall thickening or pericholecystic fluid. No biliary dilation. Pancreas: Normal density. No abnormal calcifications or inflammatory process. No evidence of mass. Spleen: Normal. Kidneys: Normal size, contour and axis. No radiodense stones. No obstructive uropathy. No suspicious masses seen. Adrenal glands: No masses seen. Vasculature: Abdominal aorta non-dilated. Soft tissues: Tiny amount of fat at the umbilicus. Bladder: The stomach and small bowel are unremarkable. There is a large quantity of stool from the c ecum through descending colon at the smaller amount distally. No gross wall thickening. No calculi.N o focal mass. Bowel: No obstruction. No bowel wall thickening. Appendix normal. Peritoneal cavity: No ascites. No focal collection. No mesenteric inflammatory response. No free air . Bones: Degenerative disc changes at L5-S1. Reproductive organs: Unremarkable. Lymph nodes: No pathologically enlarged lymph nodes. IMPRESSION:: Large quantity of stool consistent with constipation. No evidence of small bowel obstr uction. RADIATION DOSE DELIVERED: Total DLP DATA REPOSITORY: All CT scans at this facility are submitted to the National Radiology Data Registry (NRDR) Dose Index Registry (DIR) with the [employer] (ACR). RADIATION OPTIMIZATION: All CT scans at this facility use at least one of these dose optimization te chniques: automated exposure control; mA and/or kV adjustment per patient size (includes targeted exa ms where dose is matched to clinical indication); or iterative reconstruction.
--- NOTE | 2024-05-22 16:39 | HPE_ITS ---
Date of service: 05/22/24 Time of Service: 16:39 Assessment and Plan Assessment and plan (1) Pancreatitis: Status: Chronic Assessment and plan: CT benign, but with symptoms and elevated lipase this is most c/w early pancreatitis. She has several possible causes: -h/o alcohol use disorder, reports abstainance in recent months, confirm with phosphatidylethenol -h/o hypertriglyceridemia, repeat fasting lipids -hypercalcemic. Get ionized to confirm -GLP-1 use. Hold this -imaging not c/w biliary disease. U/s would be nice to confirm but we are going into weekend. For now, NPO. Fluids. Progress diet tomorrow. (2) Constipation: Status: Acute Assessment and plan: This actually appears to be the major contributor to her overall discomfort, preceeded mild pancreatitis. Both issues may have been caused by GLP-1, which is new. Exam benign, not obstructed, no rectal mass. Can use suppository for now. When taking po can try more bowel regimen. (3) Hypercalcemia: Status: Acute Assessment and plan: This can cause abdominal pain directly and contribute to pancreatitis Confirming as above with ionized. Get Vit D (in case overdoing supplement) and PTH to start work up. Consider other testing like SPEP/UPEP/light chains if these normal (4) PAD (peripheral artery disease): Assessment and plan: cotninue home clopidogrel and statin (5) Essential hypertension: Assessment and plan: Continue outpatient therapy (6) Tobacco use: Status: Acute Assessment and plan: Quit x 1 mo, congratulated. Declines NRT. (7) COPD (chronic obstructive pulmonary disease): Assessment and plan: No current exacerbation. Outpatient inhalers, follow. (8) Type 2 diabetes mellitus: Assessment and plan: Holding metformin, use basal/bolus insulin. NPO so cut basal dose (9) ESTEBAN (acute kidney injury): Status: Acute Assessment and plan: Mild. Likely pre=renal, follow (10) DVT prophylaxis: Status: Acute Assessment and plan: enoxaparin History of Present Illness History of Present Illness Chief Complaint: abdominal pain Narrative: 53 yo F with history of CAD, CVA with left hemiparesis, PAD s/p stenting, perineal necrotizing fasciitis, type 2 DM recently started on GLP-1, recent smoker, hypertriglyceridemia who presented with general malaise a/w abdominal discomfort and no bowel movement x 2 weeks. She gets more discomfort in mid/left abdomen when she tried to have BM, also some heart pounding. She has no rectal pain, her scars are well healed. She has some cough with sputum since she quit smoking, not worse this week, not short of breath. In the past week, she has been feeling nauseous after eating and vomiting frequently. She hasn't been able to keep a lot of food and drink down. She has not had fevers or chills. She has not had dysuria, hematuria, or difficulty urinating. She states she started Trulicity about a month ago. She states she hasn't had alcohol for about a year. She quit smoking a month ago and was using Chantix. Review of Systems All systems reviewed & are unremarkable except as noted in HPI and below PFSH All Active Problems (Updated 05/22/24 @ 18:20 by Foreign Carvalho) DVT prophylaxis (Acute) ESTEBAN (acute kidney injury) (Acute) Hypercalcemia (Acute) Constipation (Acute) Dehydration (Acute) Pancreatitis (Chronic) Anal skin tag (Acute) Impairment of speech discrimination (Acute) Cellulitis (Acute) Pain in left foot (Acute) Diabetic ulcer of right foot (Acute) Chronic ulcer of right foot (Acute) Non-healing ulcer of right foot (Acute) Ischemic ulcer of right foot (Acute) Pressure ulcer of right foot, unstageable (Acute) Cholesteatoma of right ear (Acute) Impacted cerumen, left ear (Acute) Chronic otitis externa of right ear (Acute) Chronic serous otitis media (Acute) Chronic dysfunction of both eustachian tubes (Acute) Chronic otitis externa of left ear (Acute) Impacted cerumen, bilateral (Acute) Chronic diffuse otitis externa of both ears (Acute) Otorrhea, right ear (Acute) Mass of left ear canal (Acute) 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 (Acute) Other noninfective acute otitis externa, bilateral (Acute) Tobacco use (Acute) Mixed hearing loss, bilateral (Acute) Medical History (Updated 05/22/24 @ 18:20 by Foreign Carvalho) Hemiparesis affecting left side as late effect of cerebrovascular accident (CVA) PAD (peripheral artery disease) Type 2 diabetes mellitus Diabetic neuropathy Essential hypertension Moderate depressive disorder Generalized anxiety disorder Alcohol abuse Edema of lower extremity Hearing loss Cardiopulmonary arrest with successful resuscitation (~06/15/23) At [facility] Complete heart block (~06/17/23) Necrotizing fasciitis Obesity Chronic abscess of jaw COPD (chronic obstructive pulmonary disease) Surgical History S[facility]; R [id number] popliteal and SFA (Innova Stent x 2) History of skin graft (~07/31/23) at [facility] Incision & Drainage, Abscess or Hematoma left jaw-10/07 Social History (Updated 05/22/24 @ 18:17 by Foreign Carvalho) Smoking/Tobacco Use Status: Former Tobacco Use Quit Date: 04/24/24 Smoking risk assessment performed?: Yes Alcohol Intake: current Alcohol Intake frequency: 0-2 drinks per day Alcohol type: beer Drug use: Daily Substance use type: marijuana Housing: apartment Do you feel safe in your relationship?: Yes Additional Social history: Lives with care home partner Teja Victor in [facility]. One cat at home. Meds Allergies and Home Medications Allergies Allergy/AdvReac Type Severity Reaction Status Date / Time aspirin Allergy Intermediate lip Unverified 05/22/24 14:01 swelling Penicillins Allergy Intermediate lip Unverified 05/22/24 14:01 swelling duloxetine HCl (From AdvReac Severe suicidal Unverified 05/22/24 14:01 Cymbalta) ideations pregabalin (From Lyrica) AdvReac Severe suidial Unverified 05/22/24 14:01 ideations codeine AdvReac Mild Nausea Unverified 05/22/24 14:01 apple AdvReac Hives Verified 05/22/24 14:01 Home Medications ?Medication ?Instructions ?Recorded ?Confirmed ?Type acetaminophen 500 mg capsule 1,000 mg PO Q6H PRN 09/02/23 05/22/24 History amlodipine 10 mg tablet 10 mg PO DAILY 09/02/23 05/22/24 History clonidine 0.2 mg/24 hr weekly 1 patch transdermal QWEEK 09/02/23 05/22/24 History transdermal patch docusate sodium 100 mg capsule 100 mg PO BID PRN 09/02/23 05/22/24 History furosemide 40 mg tablet 40 mg PO DAILY 09/02/23 05/22/24 History insulin glargine 100 unit/mL 48 unit subcut DAILY 09/02/23 05/22/24 History subcutaneous solution melatonin 3 mg capsule 6 mg PO HS PRN 09/02/23 05/22/24 History metformin 1,000 mg tablet 1,000 mg PO BID 09/02/23 05/22/24 History methocarbamol 1,000 mg tablet 1,000 mg PO QID 09/02/23 05/22/24 History multivitamin with iron 1 tab PO DAILY 09/02/23 05/22/24 History naloxone 4 mg/actuation nasal 4 mg intranasal Q2M PRN 09/25/23 05/22/24 History spray (Narcan) acetylcysteine 600 mg capsule (NAC) 600 mg PO BID 12/18/23 05/22/24 History rosuvastatin 20 mg tablet 20 mg PO DAILY 12/18/23 05/22/24 History clopidogrel 75 mg tablet 75 mg PO DAILY 03/18/24 05/22/24 History semaglutide 0.25 mg or 0.5 mg (2 0.25 mg subcut QWEEK 03/18/24 05/22/24 History mg/1.5 mL) subcutaneous pen injector (Ozempic) venlafaxine 150 mg tablet,extended 75 mg PO DAILY 03/25/24 05/22/24 History release 24 hr sertraline 50 mg tablet 150 mg PO DAILY 03/30/24 05/22/24 History varenicline tartrate 1 mg tablet 1 mg PO BID 04/23/24 05/22/24 History (Chantix) Exam Narrative Exam Narrative: GEN: Alert and oriented x 4, pleasant and cooperative, gives linear history. No acute distress at rest. HEENT: Head atraumatic. Conjunctiva clear, no icterus. PEERL, EOMI. no rhinorrhea. MMM, edentulous (dentures) OP benign. Neck is supple with no masses or lymphadenopathy, trachea midline LUNGS: CTAB with normal effort CV: RRR with no murmurs, gallops, or rubs. ABD: hypoactive bowel sounds, soft, nondistended. Tender across mid abdomen, neg murphies. Tender with deep palpation LLQ. No HSM or masses. : Surgical scars well healed, tissue not tender Rectal: external hemorrhoid tags, none inflammed. No rectal masses or large stool in vault, normal tone, not tender. EXT: no cyanosis, clubbing, or edema. Warm. MSK: No joint redness or swelling NEURO: CN 2-12 grossly intact. Subtle 4/5 strength left hand/leg vs right. Normal speech and coordination. No tremor SKIN: No rashes or open wounds. PSYCH: normal mood and affect Results Imaging EKG: report reviewed and image reviewed (NSR, nl axis, intervals. mild ~1mm ST depression inferiorly, anterior q waves. ) Imaging Studies: cT abd/pelvis w/: Large quantity of stool consistent with constipation. No evidence of small bowel obstruction. Pancreas appears normal Labs 05/22/24 14:10 05/22/24 14:10 Labs: Laboratory Results - last 24 hr 05/22/24 14:10 WBC 13.38 H RBC 4.44 Hgb 12.6 Hct 36.1 MCV 81 MCH 28.4 MCHC 34.9 RDW 13.2 Plt Count 357 MPV 11.0 Immature Gran % 0.4 Neutrophils % 76.5 Lymphocytes % 16.1 Monocytes % 5.5 Eosinophils % 1.0 Basophils % 0.5 Nucleated RBC % 0.0 Absolute Neutrophils 10.24 H Absolute Lymphocytes 2.15 Absolute Monocytes 0.74 Absolute Eosinophils 0.13 Absolute Basophils 0.07 VBG pH 7.49 H VBG pCO2 36 L VBG pO2 33 VBG HCO3 27 VBG Total CO2 25 VBG O2 Saturation 66 VBG Base Excess 4 H VBG Lactate 2.5 H* Sodium 137 Potassium 3.6 Chloride 96 L Carbon Dioxide 26.8 Anion Gap 14.2 H BUN 31 H Creatinine 1.2 H Est GFR (CKD-EPI 2020) 54.13 Glucose 149 H Calcium 10.4 H Magnesium 1.6 L Total Bilirubin 0.5 AST 13 L ALT 21 Alkaline Phosphatase 111 Troponin I 9 Total Protein 8.5 H Albumin 4.3 Lipase 235 H Last Vital Signs Temp 36.8 C 05/22/24 14:48 Pulse 75 05/22/24 15:32 Resp 13 05/22/24 15:32 BP 169/75 H 05/22/24 15:32 Pulse Ox 98 05/22/24 15:32 Time Spent Time spent with Patient: 55-74 minutes Time was spent: preparing to see the patient(eg.review tests), obtaining and/or reviewing separately otained hiistory, ordering medications,tests, procedures, referring, communicating with other health caretaker resort, indepentently interpreting results, counseling the patient and care coordination
--- NOTE | 2024-05-22 17:12 | W.PC.ACHO ---
Registration Status: Primary Language: Preferred Language: ED Information & Data Chief Complaint Abd Prob 05/22/24 14:04 Triage Note BIBA 2 weeks of feeling 05/22/24 13:55 poorly, no BM for 2 weeks with OTC stool softeners. began vomiting today with increased abdominal pain. 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 Medical / Surgical History (Last Reviewed 05/22/24 @ 14:42 by Tulio Serrano MD) Necrotizing fasciitis PAD (peripheral artery disease) Type 2 diabetes mellitus Diabetic neuropathy Essential hypertension Moderate depressive disorder Generalized anxiety disorder Alcohol abuse Edema of lower extremity Hearing loss Cardiopulmonary arrest with successful resuscitation (~06/15/23) Complete heart block (~06/17/23) Obesity Chronic abscess of jaw COPD (chronic obstructive pulmonary disease) (Last Reviewed 05/22/24 @ 14:43 by Tulio Serrano MD) S/P angioplasty with stent History of skin graft (~07/31/23) Incision & Drainage, Abscess or Hematoma Most Recent Vital Signs Temperature 36.8 C 05/22/24 14:48 Pulse 79 05/22/24 17:01 Pulse 82 05/22/24 16:20 Respiratory Rate 20 05/22/24 16:20 Blood Pressure 189/80 H 05/22/24 17:01 Blood Pressure Mean 123 05/22/24 17:01 Pulse Oximetry 100 05/22/24 17:01 Oxygen Delivery Method Room Air 05/22/24 15:32 Oxygen Flow Rate 0 05/22/24 15:32 Pain Level 6 05/22/24 14:48 Allergies aspirin Allergy (Intermediate, Unverified 05/22/24 14:01) lip swelling Penicillins Allergy (Intermediate, Unverified 05/22/24 14:01) lip swelling duloxetine HCl (From Cymbalta) Adverse Reaction (Severe, Unverified 05/22/24 14:01) suicidal ideations pregabalin (From Lyrica) Adverse Reaction (Severe, Unverified 05/22/24 14:01) suidial ideations codeine Adverse Reaction (Mild, Unverified 05/22/24 14:01) Nausea apple Adverse Reaction (Verified 05/22/24 14:01) Hives juice Precautions Isolation Standard precaution 05/22/24 14:00 Active Medications Generic Name Dose Route Start Last Admin Trade Name Freq PRN Reason Stop Dose Admin Iohexol 70 ml 05/22/24 16:00 05/22/24 15:54 Omnipaque 350 Mg/Ml 100 Ml Btl IJ 06/21/24 23:59 70 ml DIRECTED JANNA Administration Sodium Chloride 50 ml 05/22/24 16:00 05/22/24 15:53 Normal Saline - Diluent 50 Ml Vial IJ 50 ml .FOR DI USE JANNA Administration IV IV Catheter Type [Right Saline Lock Antecubital] IV Catheter Type [Left Saline Lock Antecubital] IV Catheter Gauge [Right 20 Antecubital] IV Catheter Gauge [Left 20 Antecubital] Diet Orders Category Date Time Status Post Op Diet [DIET] Nutrition 05/22/24 Dinner Active Diagnostics 05/22/24 05/22/24 05/22/24 Range/Units Unknown 16:44 14:10 WBC 13.38 H (4.4-10.8) 10^3/uL RBC 4.44 (3.93-5.22) 10^6/uL Hgb 12.6 (11.2-15.7) g/dL Hct 36.1 (36.0-46.0) % MCV 81 (80-95) fL MCH 28.4 (27.0-33.0) pg MCHC 34.9 (32.0-36.0) % RDW 13.2 (11.7-14.6) % Plt Count 357 (130-400) 10^3/uL MPV 11.0 (8.0-11.0) fL Immature Gran % 0.4 % Neutrophils % 76.5 % Lymphocytes % 16.1 % Monocytes % 5.5 % Eosinophils % 1.0 % Basophils % 0.5 % Nucleated RBC % 0.0 (0.0-0.3) % Absolute Neutrophils 10.24 H (1.2-6.7) 10^3/uL Absolute Lymphocytes 2.15 (1.2-3.4) 10^3/uL Absolute Monocytes 0.74 (0.1-0.8) 10^3/uL Absolute Eosinophils 0.13 (0.0-0.7) 10^3/uL Absolute Basophils 0.07 (0.0-0.2) 10^3/uL VBG pH 7.49 H (7.31-7.41) VBG pCO2 36 L (41-51) mmHg VBG pO2 33 mmHg VBG HCO3 27 (23-28) mmol/L VBG Total CO2 25 (24-29) mmol/L VBG O2 Saturation 66 % VBG Base Excess 4 H (-2-3) mmol/L VBG Lactate 2.5 H* (<or=2.0) mmol/L Sodium 137 (136-145) mmol/L Potassium 3.6 (3.5-5.1) mmol/L Chloride 96 L (98-107) mmol/L Carbon Dioxide 26.8 (21.0-32.0) mmol/L Anion Gap 14.2 H (3-11) mmol/L BUN 31 H (7-18) mg/dL Creatinine 1.2 H (0.55-1.02) mg/dL Est GFR (CKD-EPI 2020) 54.13 (mL/min/1.73m2) Glucose 149 H (74-106) mg/dL Calcium 10.4 H (8.5-10.1) mg/dL Ionized Calcium Pending Magnesium 1.6 L (1.8-2.4) mg/dL Total Bilirubin 0.5 (0.2-1.0) mg/dL AST 13 L (15-37) U/L ALT 21 (14-59) U/L Alkaline Phosphatase 111 (46-116) U/L Troponin I 9 (<or=51) ng/L Total Protein 8.5 H (6.4-8.2) g/dL Albumin 4.3 (3.4-5.0) g/dL Lipase 235 H (<78) U/L 25-OH Vitamin D Total Pending PTH Intact Pending Intake and Output - 24 Hour Total 05/22/24 13:46 thru 05/22/24 15:50 Intake Total 1000 Balance 1000 Weight 80.286 kg Intake: IV 1000 Falls Risk Assessment Contributing Factors Impairments 05/22/24 14:49 Ambulatory Aids Uses ambulatory device 05/22/24 14:49 Tubes/Lines None 05/22/24 14:49 Gait Evaluation W/no contributing factors 05/22/24 14:49 Cognition No cognitive impairment 05/22/24 14:49 Fall Total Score 28 05/22/24 14:49 Level of Risk Moderate Risk 05/22/24 14:49 Problems Hypercalcemia (Acute) Constipation (Acute) Dehydration (Acute) Pancreatitis (Chronic) Tobacco use (Acute) v v v v v v v v v Sending and/or Receiving Nurses: Please use comment section below to note any information pertinent to the patient hand-off not included above. Information / Comments: Report received from: Report received from EILS Ni at 17:12. All questions answered.
[2024-05-22] MEDS: MAGNESIUM SULFATE 2 GM/50 ML BAG IV_INF (18:03)
[2024-05-22 18:24] LABS: Bilirubin Negative (Negative); Blood Negative (Negative); Clarity Clear (Clear); Glucose Negative (Negative); Ketones Negative (Negative); Leukocyte Esterase Negative (Negative); Nitrite Negative (Negative); Specific Gravity 1.015 (1.005-1.025); Urobilinogen 0.2 mg/dL (Up to 0.2); pH 6.5 (5-8)
[2024-05-22 18:26] LABS: Bacteria Negative HPF (Negative); C & S Indicated? No; Casts Negative LPF (Negative); Crystals Negative HPF (Negative); Epithelial Cells Negative HPF (Negative); Mucus Negative (Negative); RBC Negative HPF (0-2); WBC Negative HPF (0-5)
[2024-05-22] MEDS: Lactated Ringers 1,000 ML 1000 ML IV (18:47)
[2024-05-22] MEDS: POTASSIUM CHLORIDE/D5-0.45NACL 1,000 ML 120 MEQ IV (19:05)
[2024-05-22] MEDS: Normal Saline Flush 10 ML SYR IVP (20:05)
[2024-05-22] MEDS: Venlafaxine 75 MG CAPCR (20:05)
[2024-05-22 20:42] LABS: Vitamin D 25 Total 22 ng/mL (30-100)
[2024-05-22] MEDS: amLODIPine 10 MG TAB PO (22:00)
[2024-05-22] MEDS: cloNIDine 0.1 MG PATCH 0.2 MG TD (22:01)
[2024-05-22] MEDS: Acetaminophen 500 MG TAB 1000 MG PO (22:01)
[2024-05-22 23:29] LABS: *AMPHETAMINES SCREEN URINE Negative (Negative); *BARBITURATES SCREEN URINE Negative (Negative); *BENZODIAZEPINES SCREEN URINE Negative (Negative); Cannabinoids THC Positive (Negative); Cocaine Screen,Urine Negative (Negative); METHADONE URINE SCREEN Negative (Negative); OPIATES URINE SCREEN Negative (Negative); Tricyclic Antidepressants Negative (Negative)
[2024-05-23] MEDS: POTASSIUM CHLORIDE/D5-0.45NACL 1,000 ML 120 MEQ IV ×3 (02:46→20:14)
[2024-05-23 03:58] VITALS: BP 138/62; PULSE 71; RESP 18; TEMP 36.5; O2SAT 98
[2024-05-23] MEDS: Acetaminophen 500 MG TAB 1000 MG PO (06:09)
[2024-05-23 06:57] LABS: Lactate 0.8 mmol/L (<or=2.0)
[2024-05-23 07:01] LABS: Abs Immature Grans 0.04 10^3/uL (0.0-0.06); Absolute Basophil Count 0.04 10^3/uL (0.0-0.2); Absolute Eosinophil Count 0.17 10^3/uL (0.0-0.7); Absolute Lymphocyte Count 1.53 10^3/uL (1.2-3.4); Absolute Monocyte Count 0.48 10^3/uL (0.1-0.8); Absolute Neutrophil Count 5.61 10^3/uL (1.2-6.7); Basophils % 0.5 %; Eosinophils % 2.2 %; HCT 32.2 % (36.0-46.0); HGB 11.1 g/dL (11.2-15.7); Immature Grans % 0.5 %; Lymphocytes % 19.4 %; MCH 28.1 pg (27.0-33.0); MCHC 34.5 % (32.0-36.0); MCV 82 fL (80-95); MPV 10.7 fL (8.0-11.0); Monocytes % 6.1 %; Neutrophils % 71.3 %; Platelet Count 237 10^3/uL (130-400); RBC 3.95 10^6/uL (3.93-5.22); RDW 13.2 % (11.7-14.6); RDW-SD 39.4 fL; WBC 7.87 10^3/uL (4.4-10.8)
[2024-05-23 07:19] LABS: ALT 17 U/L (14-59); AST 11 U/L (15-37); Albumin 3.6 g/dL (3.4-5.0); Alkaline Phosphatase 96 U/L (46-116); Anion Gap 5.8 mmol/L (3-11); BUN 14 mg/dL (7-18); Bilirubin, Total 0.2 mg/dL (0.2-1.0); CO2 29.2 mmol/L (21.0-32.0); CREATININE 0.8 mg/dL (0.55-1.02); Calcium 9.3 mg/dL (8.5-10.1); Calculated LDL 18 mg/dL (<100); Chloride 102 mmol/L (98-107); Cholesterol 105 mg/dL (<200); Estimated GFR 88.05 (mL/min/1.73m2); Glucose 177 mg/dL (74-106); HDL Cholesterol 38 mg/dL (>or=50); Magnesium 1.7 mg/dL (1.8-2.4); Potassium 3.8 mmol/L (3.5-5.1); Sodium 137 mmol/L (136-145); Total Protein 7.2 g/dL (6.4-8.2); Triglyceride 246 mg/dL (<150)
[2024-05-23 08:20] VITALS: BP 143/77; PULSE 84; RESP 20; TEMP 36.6; O2SAT 100
[2024-05-23] MEDS: Venlafaxine 75 MG TAB PO ×2 (08:54→20:05)
[2024-05-23] MEDS: Rosuvastatin 20 MG TAB PO (08:55)
[2024-05-23] MEDS: amLODIPine 10 MG TAB PO (08:55)
[2024-05-23] MEDS: Clopidogrel 75 MG TAB PO (08:55)
[2024-05-23] MEDS: MAGNESIUM SULFATE 2 GM/50 ML BAG IV_INF (09:03)
[2024-05-23] MEDS: Magnesium Citrate 300 ML BTL 150 ML PO (09:04)
[2024-05-23] MEDS: Insulin Aspart 300 UNITS/3 ML PEN SC ×3 (09:30→16:59)
[2024-05-23] MEDS: Insulin Glargine 300 UNITS/3 ML PEN 30 UNITS SC (09:31)
--- NOTE | 2024-05-23 09:44 | INITIAL_ITS ---
Date of service: 05/23/24 Time of Service: 09:44 Care Management Initial Assmt Initial Assessment Reason for Hospitalization: pancreatitis Functional Status/Living Situation Patient Presentation: Jennifer lives in an apartment in [facility] with her long time partner Teja Victor. She has 3 children however they are not close and do not keep in regular contact. Earle is disabled however she does not receive SSDI payments and stated she is not sure why. She informed CM that she had a stroke about a year ago and now uses a cane, walker and wheelchair. She has some residual left sided w eakness but stated that she is much improved. Jennifer was admitted with pancreatitis. She stated that she has never had this before and is not sure why she has it now. She did report that the provider told her it can be caused by many different things. Her pain has been managed with Tylenol and she is no longer experiencing nausea and vomiting. Town of Residence: [facility] Resides with: Other (partner Teja Victor) Significant Other/Family: Local Employment Status: Disabled Instrumental Activities of Daily Living (ADLs): Independent Medications Medication Management: No Issues/Barriers identified Physical Functioning/Mobility Assistive Device: cane, walker and wheelchair Advance Directives Advance Directives: Do you have an Advance Directive: AD On File at [facility]: N 04/10/23 15:00 Date Asked 05/03/24 05/03/24 11:02 AD Date Reviewed 05/22/24 05/22/24 16:51 COLST On File at [facility] COLST Date Scanned Code Status Resuscitation Status Full Code Portal Pt does not currently have a portal and education provided: Yes Insurance Coverage/Financial Issues Insurance: Medicaid Care Team Visit Care Team Role Provider Type Janelle Huitron MD Primary Care Provider [facility] STAFF PHYSICIAN Tulio Serrano MD Emergency Provider [facility] STAFF PHYSICIAN Foreign Carvalho Admit Provider [facility] STAFF PHYSICIAN Attending Provider Discharge Potential Discharge Needs: PCP F/U Appt Anticipated Barriers to Discharge: None Identified Patient/Family Education Needs: Review discharge instructions, discuss Ask Me Three Transportation: Private vehicle Plan: Anticipate Jennifer will be discharged home, possibly with new home health services, when medically cleared. She will follow up with her PCP and plan of care and transport with family. CM will follow. Social Determinants of Health Screening Social Determinants of Health last assessed: 05/24/24 Will the Patient Participate in the Screening?: Yes Do you worry about having a steady place to live?: no Problems where you live: pests such as bugs, ants or mice, mold and lead paints of pipes In the past 12 months, have you had to go without electric, gas, oil or water in your home?: no Have you or anyone in your house had to go without enough food to eat?: yes 1. Within the past 12 months, we worried whether our food would run out before we got money to buy more.: Never true 2. Within the past 12 months, the food we bought just didn't last and we didn't have money to get more.: Never true Referred to:: Food Bank (provided with a brochure re: food resources) Has lack of transportation kept you from medical appointments or from doing things needed for daily living?: yes Has anyone in your life made you feel unsafe or unsupported?: no How hard is it for you to pay for the very basics like food, housing, medical care, and heating? Would you say it is:: Very hard Do you want help finding or keeping work or a job?: I do not need or want help If for any reason you need help with day-to-day activities such as bathing, preparing meals, shopping, managing finances, etc., do you get the help you need?: I could use a little more help How often do you feel lonely or isolated from those around you?: Often Do you speak a language other than Lao at home?: No Does the patient want assistance with any of the above?: Yes Health Related Social Needs Health related social needs: inadequate housing (Z59.1), food insecurity (Z59.41), transportation insecurity (Z59.82), problems related to housing/economic circumstances (Z59.89), problems with daily activities (Z73.9) and feeling lonely/isolated (Z60.8) PFSH All Active Problems (Updated 05/22/24 @ 18:20 by Foreign Carvalho) DVT prophylaxis (Acute) ESTEBAN (acute kidney injury) (Acute) Hypercalcemia (Acute) Constipation (Acute) Dehydration (Acute) Pancreatitis (Chronic) Anal skin tag (Acute) Impairment of speech discrimination (Acute) Cellulitis (Acute) Pain in left foot (Acute) Diabetic ulcer of right foot (Acute) Chronic ulcer of right foot (Acute) Non-healing ulcer of right foot (Acute) Ischemic ulcer of right foot (Acute) Pressure ulcer of right foot, unstageable (Acute) Cholesteatoma of right ear (Acute) Impacted cerumen, left ear (Acute) Chronic otitis externa of right ear (Acute) Chronic serous otitis media (Acute) Chronic dysfunction of both eustachian tubes (Acute) Chronic otitis externa of left ear (Acute) Impacted cerumen, bilateral (Acute) Chronic diffuse otitis externa of both ears (Acute) Otorrhea, right ear (Acute) Mass of left ear canal (Acute) 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 (Acute) Other noninfective acute otitis externa, bilateral (Acute) Tobacco use (Acute) Mixed hearing loss, bilateral (Acute) Medical History (Updated 05/22/24 @ 18:20 by Foreign Carvalho) Hemiparesis affecting left side as late effect of cerebrovascular accident (CVA) Necrotizing fasciitis PAD (peripheral artery disease) Type 2 diabetes mellitus Diabetic neuropathy Essential hypertension Moderate depressive disorder Generalized anxiety disorder Alcohol abuse Edema of lower extremity Hearing loss Cardiopulmonary arrest with successful resuscitation (~06/15/23) At [facility] Complete heart block (~06/17/23) Obesity Chronic abscess of jaw COPD (chronic obstructive pulmonary disease) Surgical History S/P angioplasty with stent 01/27/24 [facility]; R arqfy-iom-snal popliteal and SFA (Innova Stent x 2) History of skin graft (~07/31/23) at [facility] Incision & Drainage, Abscess or Hematoma left jaw-10/07 Social History (Updated 05/22/24 @ 18:17 by Foreign Carvalho) Smoking/Tobacco Use Status: Former Tobacco Use Quit Date: 04/24/24 Smoking risk assessment performed?: Yes Alcohol Intake: current Alcohol Intake frequency: 0-2 drinks per day Alcohol type: beer Drug use: Daily Substance use type: marijuana Housing: apartment Do you feel safe in your relationship?: Yes Additional Social history: 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
--- NOTE | 2024-05-23 10:39 | PGE_ITS ---
Date of Service Date of service: 05/23/24 Time of Service: 10:39 Assessment and Plan Assessment and plan (1) Pancreatitis: Status: Chronic Assessment and plan: CT benign, but with symptoms and elevated lipase this is most c/w early pancreatitis. She has several possible causes: -h/o alcohol use disorder, reports abstainance in recent months, confirm with phosphatidylethenol -h/o hypertriglyceridemia, but repeat fasting lipids better, TG 246 not high enough to cause this. -hypercalcemic. ionized pending -GLP-1 use. Holding this -imaging not c/w biliary disease. U/s would be nice to confirm but not available over weekend. Progress diet, low fat diet today. (2) Constipation: Status: Acute Assessment and plan: This actually appears to be the major contributor to her overall discomfort, preceeded mild pancreatitis. Both issues may have been caused by GLP-1, which is new. Should probably stop this Exam benign, not obstructed, no rectal mass. Had bisocodyl. Start bowel regimen with a dose of Mgcitrate, senna, prn PEG. Enema if no working. (3) Hypercalcemia: Status: Acute Assessment and plan: This can cause abdominal pain directly and contribute to pancreatitis Confirming as above with ionized. Mg repleated. Vit D not high, PTH pending. Consider other testing like SPEP/UPEP/light chains if these normal (4) PAD (peripheral artery disease): Assessment and plan: cotninue home clopidogrel and statin (5) Tobacco use: Status: Acute Assessment and plan: Quit x 1 mo, congratulated. Declines NRT. She has been on verenicline, continue this. (6) COPD (chronic obstructive pulmonary disease): Assessment and plan: No current exacerbation. Outpatient inhalers, follow. (7) Type 2 diabetes mellitus: Assessment and plan: Holding metformin, use basal/bolus insulin. NPO so cut basal dose, can increase again today. (8) ESTEBAN (acute kidney injury): Status: Acute Assessment and plan: Mild. Likely prerenal, resovled with hydration (9) DVT prophylaxis: Status: Acute Assessment and plan: enoxaparin Subjective Subjective Patient reports: denies voiding w/o difficulty, diarrhea, vomiting, shortness of breath or fever Interval history since last seen: NPO overnight (even though order wrong), ate breakfast this morning. No BM. Some cramping in right side of abdomen after taking Magnesium citrate this morning. Exam Narrative Exam Narrative: GEN: Alert and oriented x 4, pleasant and cooperative, gives linear history. No acute distress at rest. HEENT: no icterus, MMM LUNGS: CTAB with normal effort CV: RRR with no murmurs, gallops, or rubs. ABD: active bowel sounds, soft, nondistended. Mildly tender across mid abdomen to left side, neg murphies. no guarding/rebound No HSM or masses. EXT: no cyanosis, clubbing, or edema. Warm. PSYCH: normal mood and affect Objective Last Vital Signs Temp 36.6 C 05/23/24 08:20 Pulse 84 05/23/24 08:20 Resp 20 05/23/24 08:20 BP 143/77 H 05/23/24 08:20 Pulse Ox 100 05/23/24 08:20 Laboratory Results - last 24 hr 05/22/24 05/22/24 05/22/24 14:10 17:50 18:43 WBC 13.38 H RBC 4.44 Hgb 12.6 Hct 36.1 MCV 81 MCH 28.4 MCHC 34.9 RDW 13.2 Plt Count 357 MPV 11.0 Immature Gran % 0.4 Neutrophils % 76.5 Lymphocytes % 16.1 Monocytes % 5.5 Eosinophils % 1.0 Basophils % 0.5 Nucleated RBC % 0.0 Absolute Neutrophils 10.24 H Absolute Lymphocytes 2.15 Absolute Monocytes 0.74 Absolute Eosinophils 0.13 Absolute Basophils 0.07 VBG pH 7.49 H VBG pCO2 36 L VBG pO2 33 VBG HCO3 27 VBG Total CO2 25 VBG O2 Saturation 66 VBG Base Excess 4 H VBG Lactate 2.5 H* Sodium 137 Potassium 3.6 Chloride 96 L Carbon Dioxide 26.8 Anion Gap 14.2 H BUN 31 H Creatinine 1.2 H Est GFR (CKD-EPI 2020) 54.13 Glucose 149 H Calcium 10.4 H Magnesium 1.6 L Total Bilirubin 0.5 AST 13 L ALT 21 Alkaline Phosphatase 111 Troponin I 9 Total Protein 8.5 H Albumin 4.3 Triglycerides Total Cholesterol LDL Cholesterol, Calc HDL Cholesterol Lipase 235 H 25-OH Vitamin D Total 22 L Urine Color Yellow Urine Clarity Clear Urine pH 6.5 Ur Specific [place] 1.015 Urine Protein >=300 H Urine Ketones Negative Urine Blood Negative Urine Nitrite Negative Urine Bilirubin Negative Urine Urobilinogen 0.2 Ur Leukocyte Esterase Negative Urine RBC Negative Urine WBC Negative Ur Epithelial Cells Negative Urine Crystals Negative Urine Bacteria Negative Urine Casts Negative Urine Mucus Negative Ur Culture Indicated? No Urine Glucose Negative Urine Opiates Screen Negative Urine Methadone Screen Negative Ur Barbiturates Screen Negative Ur Tricyclics Screen Negative Ur Amphetamines Screen Negative U Benzodiazepines Scrn Negative Urine Cocaine Screen Negative Ur THC Screen Positive A 05/23/24 06:45 WBC 7.87 RBC 3.95 Hgb 11.1 L Hct 32.2 L MCV 82 MCH 28.1 MCHC 34.5 RDW 13.2 Plt Count 237 MPV 10.7 Immature Gran % 0.5 Neutrophils % 71.3 Lymphocytes % 19.4 Monocytes % 6.1 Eosinophils % 2.2 Basophils % 0.5 Nucleated RBC % 0.0 Absolute Neutrophils 5.61 Absolute Lymphocytes 1.53 Absolute Monocytes 0.48 Absolute Eosinophils 0.17 Absolute Basophils 0.04 VBG pH VBG pCO2 VBG pO2 VBG HCO3 VBG Total CO2 VBG O2 Saturation VBG Base Excess VBG Lactate 0.8 Sodium 137 Potassium 3.8 Chloride 102 Carbon Dioxide 29.2 Anion Gap 5.8 BUN 14 Creatinine 0.8 Est GFR (CKD-EPI 2020) 88.05 Glucose 177 H Calcium 9.3 Magnesium 1.7 L Total Bilirubin 0.2 AST 11 L ALT 17 Alkaline Phosphatase 96 Troponin I Total Protein 7.2 Albumin 3.6 Triglycerides 246 H Total Cholesterol 105 LDL Cholesterol, Calc 18 HDL Cholesterol 38 Lipase 25-OH Vitamin D Total Urine Color Urine Clarity Urine pH Ur Specific [place] Urine Protein Urine Ketones Urine Blood Urine Nitrite Urine Bilirubin Urine Urobilinogen Ur Leukocyte Esterase Urine RBC Urine WBC Ur Epithelial Cells Urine Crystals Urine Bacteria Urine Casts Urine Mucus Ur Culture Indicated? Urine Glucose Urine Opiates Screen Urine Methadone Screen Ur Barbiturates Screen Ur Tricyclics Screen Ur Amphetamines Screen U Benzodiazepines Scrn Urine Cocaine Screen Ur THC Screen Time Spent with Patient Time Spent with Patient: 35-49 minutes Time was spent: preparing to see the patient(eg.review tests), obtaining and/or reviewing separately otained hiistory, ordering medications,tests, procedures, referring, communicating with other health respiratory care technician, indepentently interpreting results, counseling the patient and care coordination
[2024-05-23 11:48] VITALS: BP 123/77; PULSE 85; RESP 20; TEMP 36.8; O2SAT 100
[2024-05-23] MEDS: Methocarbamol 500 MG TAB 1000 MG PO ×2 (12:33→16:59)
[2024-05-23] MEDS: Enoxaparin 40 MG/0.4 ML SYR SC (12:33)
--- NOTE | 2024-05-23 12:47 | PHA.REVIEW2 ---
Pharmacy Admission Review Admission Clinical Review Admission Pharmacy Review: DVT prophylaxis (Acute) ESTEBAN (acute kidney injury) (Acute) Hypercalcemia (Acute) Constipation (Acute) Dehydration (Acute) Tobacco use (Acute) aspirin Allergy (Intermediate, Unverified 05/22/24 14:01) lip swelling Penicillins Allergy (Intermediate, Unverified 05/22/24 14:01) lip swelling duloxetine HCl (From Cymbalta) Adverse Reaction (Severe, Unverified 05/22/24 14:01) suicidal ideations pregabalin (From Lyrica) Adverse Reaction (Severe, Unverified 05/22/24 14:01) suidial ideations codeine Adverse Reaction (Mild, Unverified 05/22/24 14:01) Nausea apple Adverse Reaction (Verified 05/22/24 14:01) Hives Resuscitation Status Full Code Height 5 ft 3 in Weight 74.843 kg Pharmacy Admission Review Renal Dosing Renal Dosing: BUN 14 mg/dL (7-18) 05/23/24 06:45 Creatinine 0.8 mg/dL (0.55-1.02) 05/23/24 06:45 Medications needing adjustments: Reviewed (CrCl 78.8 mL/min, BUN decreased from 31 and SCr decreased from 1.2) List of meds needing interventions: Current medications are okay Anticoagulation Anticoagulation: Hgb 11.1 g/dL (11.2-15.7) L 05/23/24 06:45 Hct 32.2 % (36.0-46.0) L 05/23/24 06:45 Plt Count 237 10^3/uL (130-400) 05/23/24 06:45 Creatinine 0.8 mg/dL (0.55-1.02) 05/23/24 06:45 DVT Prophylaxis: Intervened (Was not ordered this morning but H+P did mention enoxaparin. Informed provider during morning meeting and provider then put in order. Hgb decreased from 12.6.) Medications: Enoxaparin (40mg daily) Relevant Labs Relevant Labs: Sodium 137 mmol/L (136-145) 05/23/24 06:45 Potassium 3.8 mmol/L (3.5-5.1) 05/23/24 06:45 Chloride 102 mmol/L (98-107) 05/23/24 06:45 Magnesium 1.7 mg/dL (1.8-2.4) L 05/23/24 06:45 Electrolytes, C-Reactive P, ESR: Reviewed (Mg 1.7 - 2g IV infusion given this morning) DM Control DM Control: Glucose 177 mg/dL (74-106) H 05/23/24 06:45 Finger Stick Blood Glucose 144 1146 Finger Stick Blood Glucose 144 1146 DM Control: Intervened Insulin Dosing, Diabetic Medication: Has orders SS insulin and glargine 30 units daily. Confirmed glargine dose with provider as patients home med list says they use 48 units daily. Per provider decreased dose due to NPO status. Cardiac Review Cardiac Review: Troponin I 9 ng/L (<or=51) 05/22/24 14:10 BP, HR, EF%: Reviewed (HR and BP WNL) List meds needing interventions: Has order for amlodipine 10mg daily QTc Review QTc: Reviewed (465 from 05/22/24) IV to PO Switch IV Medications: Reviewed (ondansetron) Home Meds Home Med List reviewed: Intervened Relevent Home Meds Not ordered & why?: metformin (on hold per H+P), furosemide, multivitamin, Narcan (PRN), Ozempic (has order for SS insulin), sertraline (tapered off) and Chantix Asked provider about furosemide and Chantix. Furosemide on hold and order was put in for Chantix. Recently filled but not on home med list: Incruse, Trulicity and lorazepam. Bottle for lorazepam was brought in, per patient takes as needed prior to tests. I added to patients home med list. I also added Incruse to patients home med list and provider put in order. Have not heard back from nursing yet regarding Trulicity and if patient uses this at home. Current Meds Current Medication Order Review: Reviewed
[2024-05-23 15:19] VITALS: BP 134/94; PULSE 86; RESP 20; TEMP 36.8; O2SAT 100
[2024-05-23] MEDS: Bisacodyl 10 MG SUPP PR (16:47)
[2024-05-23] MEDS: LORazepam 0.5 MG TAB PO (17:35)
[2024-05-23 19:47] VITALS: BP 145/76; PULSE 82; RESP 19; TEMP 36.3; O2SAT 100
[2024-05-23] MEDS: Normal Saline Flush 10 ML SYR IVP (20:06)
[2024-05-23] MEDS: Varenicline 1 MG TAB PO (20:06)
[2024-05-23] MEDS: Acetylcysteine 600 MG CAP PO (20:06)
[2024-05-23] MEDS: Na Phosphate Enema-Adult 133 ML BTL PR (20:58)
[2024-05-23 22:03] LABS: Ionized Calcium 1.15 mmol/L (1.14-1.35)
[2024-05-23 23:15] VITALS: BP 158/79; PULSE 83; RESP 18; TEMP 36.1; O2SAT 98
[2024-05-24 03:33] VITALS: BP 125/75; PULSE 80; RESP 16; TEMP 36.1; O2SAT 98
[2024-05-24] MEDS: POTASSIUM CHLORIDE/D5-0.45NACL 1,000 ML 120 MEQ IV (05:07)
[2024-05-24 07:45] VITALS: BP 160/84; PULSE 92; TEMP 36.9; O2SAT 20
[2024-05-24] MEDS: Clopidogrel 75 MG TAB PO (08:42)
[2024-05-24] MEDS: Rosuvastatin 20 MG TAB PO (08:42)
[2024-05-24] MEDS: amLODIPine 10 MG TAB PO (08:42)
[2024-05-24] MEDS: Acetylcysteine 600 MG CAP PO ×2 (08:42→20:02)
[2024-05-24] MEDS: Polyethylene Glycol 3350 17 GM PACKET PO (08:42)
[2024-05-24] MEDS: Venlafaxine 75 MG TAB PO ×2 (08:42→20:02)
[2024-05-24] MEDS: Umeclidinium 7 CAP INHALER 1 CAP IH (08:54)
[2024-05-24] MEDS: Insulin Aspart 300 UNITS/3 ML PEN SC ×3 (09:42→16:57)
[2024-05-24] MEDS: Acetaminophen 500 MG TAB 1000 MG PO (09:51)
[2024-05-24] MEDS: Insulin Glargine 300 UNITS/3 ML PEN 30 UNITS SC (09:51)
[2024-05-24] MEDS: Docusate Sodium 100 MG CAP PO (09:59)
--- NOTE | 2024-05-24 10:55 | W.PM.PROGNOT ---
Date of Service Date of service: 05/24/24 Time of Service: 10:56 Assessment and Plan Assessment and plan (1) Pancreatitis: Status: Chronic Assessment and plan: -CT benign, but with symptoms and elevated lipase this is most c/w early pancreatitis. - could be caused by history of EtOH use, hypercalcemima, (which is resolved), or GLP-1 use -imaging not c/w biliary disease -tolerating low fat diet (2) Constipation: Status: Acute Assessment and plan: -This actually appears to be the major contributor to her overall discomfort, preceeded mild pancreatitis. -Both issues may have been caused by GLP-1, which is new; Should probably stop this -Exam benign, not obstructed, no rectal mass. -Had bisocody, Mg citrate, senna, and enema with only very small BM since, will continue current regimen (3) Hypercalcemia: Status: Acute Assessment and plan: -This can cause abdominal pain directly and contribute to pancreatitis -Confirming as above with ionized. Mg repleated. -Vit D not high, PTH pending. Consider other testing like SPEP/UPEP/light chains if these normal (4) PAD (peripheral artery disease): Assessment and plan: -continue home clopidogrel and statin (5) Tobacco use: Status: Acute Assessment and plan: -Quit x 1 mo, -Declines NRT. -She has been on verenicline, continue this. (6) COPD (chronic obstructive pulmonary disease): Assessment and plan: -No current exacerbation -continue home inhaler regimen (7) Type 2 diabetes mellitus: Assessment and plan: -Holding metformin, use basal/bolus insulin. -basal dose increased as patient is tolerating PO intake (8) ESTEBAN (acute kidney injury): Status: Acute Assessment and plan: -Mild. -Likely prerenal, resovled with hydration (9) DVT prophylaxis: Status: Acute Assessment and plan: -enoxaparin Subjective Subjective Interval history since last seen: Patient states that she is feeling better and is not experiencing abdominal pain, but that she still has not had a bowel movement in almost two weeks. Exam Narrative Exam Narrative: older appearing female sitting up in the chair in no acute distress, AOx4, heart RRR, lungs CTAB, addomen soft, non-tender, non-distended, small palpable mid-line abdominal hernia present that is easily reducable Objective Last Vital Signs Temp 98.4 F 05/24/24 07:45 Pulse 92 H 05/24/24 07:45 Resp 16 05/24/24 03:33 BP 160/84 H 05/24/24 07:45 Pulse Ox 20 L 05/24/24 07:45 Time Spent with Patient Time Spent with Patient: >50 minutes Time was spent: preparing to see the patient(eg.review tests), obtaining and/or reviewing separately otained hiistory, ordering medications,tests, procedures, referring, communicating with other health customer care specialist, indepentently interpreting results, counseling the patient and care coordination
[2024-05-24 11:32] VITALS: BP 148/83; PULSE 94; RESP 20; TEMP 36.8; O2SAT 100
[2024-05-24 15:27] VITALS: BP 159/90; PULSE 89; RESP 20; TEMP 37; O2SAT 100
[2024-05-24] MEDS: Methocarbamol 500 MG TAB 1000 MG PO (16:56)
[2024-05-24] MEDS: LORazepam 0.5 MG TAB PO (16:56)
[2024-05-24 19:57] VITALS: BP 146/83; PULSE 92; RESP 18; TEMP 36.5; O2SAT 100
[2024-05-24] MEDS: Varenicline 1 MG TAB PO (20:02)
[2024-05-24] MEDS: Enoxaparin 40 MG/0.4 ML SYR SC (20:03)
[2024-05-24] MEDS: Normal Saline Flush 10 ML SYR IVP (20:03)
[2024-05-24] MEDS: Insulin Aspart 100 UNITS/ML UNIT SC (20:37)
[2024-05-24 23:02] VITALS: BP 164/74; PULSE 79; RESP 18; TEMP 36.6; O2SAT 100
[2024-05-25 02:54] VITALS: BP 133/74; PULSE 86; RESP 18; TEMP 37.1; O2SAT 100
[2024-05-25 06:34] LABS: Abs Immature Grans 0.11 10^3/uL (0.0-0.06); Absolute Basophil Count 0.06 10^3/uL (0.0-0.2); Absolute Eosinophil Count 0.25 10^3/uL (0.0-0.7); Absolute Lymphocyte Count 2.09 10^3/uL (1.2-3.4); Absolute Monocyte Count 0.71 10^3/uL (0.1-0.8); Absolute Neutrophil Count 8.74 10^3/uL (1.2-6.7); Basophils % 0.5 %; Eosinophils % 2.1 %; HCT 33.9 % (36.0-46.0); HGB 11.4 g/dL (11.2-15.7); Immature Grans % 0.9 %; Lymphocytes % 17.5 %; MCH 27.8 pg (27.0-33.0); MCHC 33.6 % (32.0-36.0); MCV 83 fL (80-95); MPV 10.9 fL (8.0-11.0); Monocytes % 5.9 %; Neutrophils % 73.1 %; Platelet Count 287 10^3/uL (130-400); RDW 13.2 % (11.7-14.6); RDW-SD 39.8 fL; WBC 11.96 10^3/uL (4.4-10.8)
[2024-05-25 07:15] LABS: Anion Gap 10.6 mmol/L (3-11); BUN 13 mg/dL (7-18); CO2 22.4 mmol/L (21.0-32.0); CREATININE 0.8 mg/dL (0.55-1.02); Calcium 9.9 mg/dL (8.5-10.1); Chloride 106 mmol/L (98-107); Estimated GFR 88.05 (mL/min/1.73m2); Glucose 175 mg/dL (74-106); Potassium 4.4 mmol/L (3.5-5.1); Sodium 139 mmol/L (136-145)
[2024-05-25 07:48] VITALS: BP 139/89; PULSE 84; RESP 20; TEMP 37.4; O2SAT 100
[2024-05-25] MEDS: Venlafaxine 75 MG TAB PO (08:06)
[2024-05-25] MEDS: Acetylcysteine 600 MG CAP PO (08:06)
[2024-05-25] MEDS: Methocarbamol 500 MG TAB 1000 MG PO (08:07)
[2024-05-25] MEDS: amLODIPine 10 MG TAB PO (08:07)
[2024-05-25] MEDS: Rosuvastatin 20 MG TAB PO (08:07)
[2024-05-25] MEDS: Clopidogrel 75 MG TAB PO (08:07)
[2024-05-25] MEDS: Insulin Aspart 300 UNITS/3 ML PEN SC (08:08)
[2024-05-25] MEDS: Normal Saline Flush 10 ML SYR IVP (08:10)
[2024-05-25] MEDS: Umeclidinium 7 CAP INHALER 1 CAP IH (08:12)
[2024-05-25] MEDS: Acetaminophen 500 MG TAB 1000 MG PO (08:17)
[2024-05-25] MEDS: Insulin Glargine 300 UNITS/3 ML PEN 30 UNITS SC (08:18)
--- NOTE | 2024-05-25 08:44 | PDOC.HHF2F ---
Home Health Referral Home Health Orders Clinical synopsis of why skilled professionals are needed: CVA, CAD, pancreatitis, constipation, IDDM Registered Nurse: Check all that apply Instruct on new or changed medication(s)/assess compliance: Ordered [employer] Worker: Assist with community resources: Ordered Assist with shelter care planning: Ordered Encounter Date and Reason: I certify that a FTF encounter for this patient was performed on May 25, 2024 and that such encounter was related to the primary reason the patient requires home health services. The encounter was conducted in the following manner: By me as the certifying physician, RECREATION CENTER DIRECTOR, PA or By an inpatient physician, RECREATION CENTER DIRECTOR or PA during an inpatient stay who communicated findings to me, Certification And Authentication I certify that I composed the above information based on my clinical judgment relating to this patient's medical condition and, if applicable, clinical findings communicated to me by the NPP or inpatient physician who performed the FTF encounter. Name of Provider that will be monitoring home health services: Janelle Huitron
--- NOTE | 2024-05-25 08:45 | DSE_ITS ---
Date of service: 05/25/24 Time of Service: 08:45 DS: Diagnosis Discharge Diagnosis (1) Pancreatitis: Status: Chronic (2) Constipation: Status: Acute (3) Hypercalcemia: Status: Acute (4) PAD (peripheral artery disease): (5) Tobacco use: Status: Acute (6) COPD (chronic obstructive pulmonary disease): (7) Type 2 diabetes mellitus: (8) ESTEBAN (acute kidney injury): Status: Acute (9) DVT prophylaxis: Status: Acute Discharge Plan Disposition Patient Disposition: Home W/Home Health Services Condition: Good Discharge Details Reason For Visit: abdominal pain, pancreatitis Admit Date/Time: 05/22/24 16:28 Admit Provider: Foreign Carvalho Attending Provider: Foreign Carvalho Primary Care Provider: Janelle Huitron Hospital Course Hospital Course: Patient initially presented with abdominal pain that was consistent with a combination of constipation and acute pancreatitis. No definitive etiology was found for pancreatitis, as no significant changes in LFTs, or common bile duct dilation was noted. However, patient is on GLP-1, and is recommended that this be discontinued. Patient's abdominal pain significantly improved with combination of low-fat diet and aggressive bowel regimen resulting and multiple bowel movements. Patient was able to tolerate p.o. liquid and solid intake without nausea, vomiting or worsening abdominal pain, and therefore was determined to be stable for discharge. PCP follow-up -Consider alternate diabetic medication, as GLP-1 has been discontinued as p otential cause of pancreatitis Home Meds and New Rx's Prescriptions: Continued acetaminophen 500 mg capsule 1,000 mg PO Q6H PRN amlodipine 10 mg tablet 10 mg PO DAILY clonidine 0.2 mg/24 hr patch weekly 1 patch transdermal QWEEK docusate sodium 100 mg capsule 100 mg PO BID PRN furosemide 40 mg tablet 40 mg PO DAILY insulin glargine 100 unit/mL solution 48 unit subcut DAILY melatonin 3 mg capsule 6 mg PO HS PRN metformin 1,000 mg tablet 1,000 mg PO BID multivitamin with iron Tablet 1 tab PO DAILY naloxone [Narcan] 4 mg/actuation spray,non-aerosol 4 mg intranasal Q2M PRN Rx Instructions: spray 1 dose into ONE nostril; alternate nostrils w each dose until help arrives acetylcysteine [NAC] 600 mg capsule 600 mg PO BID rosuvastatin 20 mg tablet 20 mg PO DAILY clopidogrel 75 mg tablet 75 mg PO DAILY methocarbamol 500 mg tablet 1,000 mg PO QID PRN Patient Comments: TAKE TWO TABLETS BY MOUTH FOUR TIMES A DAY NEEDED FOR MUSCLE CRAMPS lorazepam 0.5 mg tablet 0.5 mg PO DAILY PRN Patient Comments: TAKE ONE TABLET BY MOUTH EVERY DAY NEEDED +MAX 10 TABLETS PER MONTH+ Discontinued Ozempic 0.25 mg or 0.5 mg(2 mg/1.5 mL) pen injector 0.25 mg subcut QWEEK Rx Instructions: for 4 weeks No Action varenicline tartrate [Chantix] 1 mg tablet 1 mg PO BID venlafaxine 150 mg tablet extended release 24hr 75 mg PO DAILY sertraline 50 mg tablet 150 mg PO DAILY Patient Comments: actively being tapered- to be stopped by 04/25/24. Anoro Ellipta 62.5-25 mcg/actuation blister with device 1 inh INHALATION DAILY Patient Comments: INHALE ONE PUFF BY MOUTH EVERY DAY Discharge Instructions Activity:: Activity as Tolerated Equipment/Supplies:: No Equipment Needed Diet:: As Tolerated Discharge Orders Discharge Orders: Discharge Order (Routine); Ordered 05/25/24 Ordered By: Paolo Nino DS: Summary Time Spent with Patient providing and/or coordinating discharge services: Greater than 30 minutes Status at Discharge Functional status at discharge: independent ambulation Overall status at discharge: patient is back to baseline Mental Status: mental status grossly normal Speech and Movement: speech and movement normal Mood: congruent mood Affect: normal affect Quality:SDOH Health Related Social Needs: Health related social needs inadequate housing (Z59.1) , food insecurity (Z59.41), transportation insecurity (Z59.82), problems related to housing/economic circumstances (Z59.89), problems with daily activities (Z73.9), feeling lonely/isolated (Z60.8) Exam Narrative Exam Narrative: older appearing female sitting up in the chair in no acute distress, AOx4, heart RRR, lungs CTAB, addomen soft, non-tender, non-distended, small palpable mid- line abdominal hernia present that is easily reducable Psych Mental Status: mental status grossly normal Speech and Movement: speech and movement normal Mood: congruent mood Affect: normal affect DS: Data Vitals/I&O Vitals and I&O: Vital Signs Temperature 99.3 F 05/25/24 07:48 Temperature Source Temporal Artery Scan 05/25/24 07:48 Pulse 84 05/25/24 07:48 Pulse Rhythm Regular 05/22/24 17:26 Pulse 82 05/22/24 16:20 Respiratory Rate 20 05/25/24 07:48 Respiratory Effort Normal, Non-Labored 05/22/24 17:26 Respiratory Depth Normal 05/22/24 17:26 Respiratory Pattern Normal 05/22/24 17:26 Blood Pressure 139/89 05/25/24 07:48 Blood Pressure Mean 123 05/22/24 17:01 Pulse Oximetry 100 05/25/24 07:48 Oxygen Delivery Method Room Air 05/25/24 07:48 Oxygen Flow Rate 0 05/25/24 07:48 Pain Level 5 05/25/24 08:17 Intake & Output 05/24/24 05/25/24 05/25/24 17:59 05:59 17:59 Intake Total 1480 / 1480 400 / 1880 Output Total 300 / 300 600 / 900 Balance 1180 / 1180 -200 / 980 Weight 167 lb 8.821 oz Intake: IV 1000 / 1000 Oral 480 / 480 400 / 880 Output: Urine 300 / 300 600 / 900 Other: Urine Color Pale Urine Appearance Cloudy Comment total dumped Stool Size Smear Stool Characteristics Hard Data Completed and Pending Labs on day of discharge: Labs from last 24 hours 05/25/24 06:00 WBC 11.96 H RBC 4.10 Hgb 11.4 Hct 33.9 L MCV 83 MCH 27.8 MCHC 33.6 RDW 13.2 Plt Count 287 MPV 10.9 Immature Gran % 0.9 Neutrophils % 73.1 Lymphocytes % 17.5 Monocytes % 5.9 Eosinophils % 2.1 Basophils % 0.5 Nucleated RBC % 0.0 Absolute Neutrophils 8.74 H Absolute Lymphocytes 2.09 Absolute Monocytes 0.71 Absolute Eosinophils 0.25 Absolute Basophils 0.06 Sodium 139 Potassium 4.4 Chloride 106 Carbon Dioxide 22.4 Anion Gap 10.6 BUN 13 Creatinine 0.8 Est GFR (CKD-EPI 2020) 88.05 Glucose 175 H Calcium 9.9 PFSH All Active Problems (Updated 05/25/24 @ 08:44 by Paolo Nino MD) DVT prophylaxis (Acute) ESTEBAN (acute kidney injury) (Acute) Hypercalcemia (Acute) Constipation (Acute) Dehydration (Acute) Pancreatitis (Chronic) Anal skin tag (Acute) Impairment of speech discrimination (Acute) Cellulitis (Acute) Pain in left foot (Acute) Diabetic ulcer of right foot (Acute) Chronic ulcer of right foot (Acute) Non-healing ulcer of right foot (Acute) Ischemic ulcer of right foot (Acute) Pressure ulcer of right foot, unstageable (Acute) Cholesteatoma of right ear (Acute) Impacted cerumen, left ear (Acute) Chronic otitis externa of right ear (Acute) Chronic serous otitis media (Acute) Chronic dysfunction of both eustachian tubes (Acute) Chronic otitis externa of left ear (Acute) Impacted cerumen, bilateral (Acute) Chronic diffuse otitis externa of both ears (Acute) Otorrhea, right ear (Acute) Mass of left ear canal (Acute) 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 (Acute) Other noninfective acute otitis externa, bilateral (Acute) Tobacco use (Acute) Mixed hearing loss, bilateral (Acute) Medical History (Updated 05/25/24 @ 08:44 by Paolo Nino MD) Hemiparesis affecting left side as late effect of cerebrovascular accident (CVA) Necrotizing fasciitis PAD (peripheral artery disease) Type 2 diabetes mellitus Diabetic neuropathy Essential hypertension Moderate depressive disorder Generalized anxiety disorder Alcohol abuse Edema of lower extremity Hearing loss Cardiopulmonary arrest with successful resuscitation (~06/15/23) At [facility] Complete heart block (~06/17/23) Obesity Chronic abscess of jaw COPD (chronic obstructive pulmonary disease) Surgical History S/P angioplasty with stent 01/27/24 [facility]; R [id number] popliteal and SFA (Innova Stent x 2) History of skin graft (~07/31/23) at [facility] Incision & Drainage, Abscess or Hematoma left jaw-10/07 Social History (Updated 05/22/24 @ 18:17 by Foreign Carvalho) Smoking/Tobacco Use Status: Former Tobacco Use Quit Date: 04/24/24 Smoking risk assessment performed?: Yes Alcohol Intake: current Alcohol Intake frequency: 0-2 drinks per day Alcohol type: beer Drug use: Daily Substance use type: marijuana Housing: apartment Do you feel safe in your relationship?: Yes Additional Social history: Lives with terminal makeup 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 Time Spent with Patient Time Spent with Patient: <45 minutes Time was spent: preparing to see the patient(eg.review tests), obtaining and/or reviewing separately otained hiistory, ordering medications,tests, procedures, referring, communicating with other health home care scheduler, indepentently interpreting results, counseling the patient and care coordination
--- NOTE | 2024-05-25 09:17 | CMDISCH_ITS ---
Date of service: 05/25/24 Time of Service: 09:18 LACE Index Scoring Tool Questions: Length of Stay (in days): 3 Was the patient admitted via the E.D.?: Yes Comorbidities: Cerebrovascular Disease, PVD, Diabetes w/o Complication, Chronic Pulmonary Disease and Liver or Renal Disease E.D. Visits: 1 Answers: Total Score: 12 Risk of Readmission: High Risk Care Management Discharge Plan Reason for Hospitalization: pancreatitis Discharge Plan: Jennifer will be discharged home with new home health services for RN and social work. She will follow up with her PCP and plan of care and transport with family. Patient/Family Education Needs: Review discharge instructions, limitations, discuss Ask Me Three Services Needed at Discharge: Home Health Care Services SDOH Health Related Social Needs: Health related social needs inadequate housing (Z59.1) , food insecurity (Z59.41), transportation insecurity (Z59.82), problems related to housing/economic circumstances (Z59.89), problems with daily activities (Z73.9), feeling lonely/isolated (Z60.8)
[2024-05-25 09:50] LABS: Parathyroid Hormone,Intact 51.7 pg/mL (19.0-88.0)
[2024-05-26 18:42] LABS: PEth 16:0/18:1(POPEth) <10 ng/mL (Cutoff: 10); PEth 16:0/18:2(PLPEth) <10 ng/mL (Cutoff: 10); PEth Interpretation Negative.
== END 2024-05-25 10:05 | disposition home health service (06) | DRG 439 ==
LOC: ER 16:51 → MS 17:23
PROVIDERS: Family Medicine; Admitting Provider Family Medicine; Emergency Provider Emergency Medicine; PCP Family Medicine; Responsible Provider Family Medicine; Visit Provider Family Medicine
DX: K85.30 Drug induced acute pancreatitis without necrosis or infection (principal); I44.2 Atrioventricular block, complete; N17.9 Acute kidney failure, unspecified; K59.03 Drug induced constipation; T38.3X5A Adverse effect of insulin and oral hypoglycemic [antidiabetic] drugs, initial encounter; I10 Essential (primary) hypertension; E83.52 Hypercalcemia; I73.9 Peripheral vascular disease, unspecified; J44.9 Chronic obstructive pulmonary disease, unspecified; E78.1 Pure hyperglyceridemia; Z86.73 Personal history of transient ischemic attack (TIA), and cerebral infarction without residual deficits; I25.10 Atherosclerotic heart disease of native coronary artery without angina pectoris; Z95.828 Presence of other vascular implants and grafts; Z79.85 Long-term (current) use of injectable non-insulin antidiabetic drugs; Z87.891 Personal history of nicotine dependence; H90.6 Mixed conductive and sensorineural hearing loss, bilateral; F41.1 Generalized anxiety disorder; E11.42 Type 2 diabetes mellitus with diabetic polyneuropathy; F32.9 Major depressive disorder, single episode, unspecified; Z86.74 Personal history of sudden cardiac arrest; F10.10 Alcohol abuse, uncomplicated; Z79.4 Long term (current) use of insulin
CPT/HCPCS: 00123; 36415; 80048; 80053; 80061; 80307; 80321; 82306; 82805; 83690; 93005; 94640; 96360; 99285; J1650; 74177; 81003; 81015; 82330; 83605; 83735; 83970; 84484; 85025; 93010; 94664; 99223; 99232; 99233; 99239; J1815; J3475; J3490

== ENCOUNTER 2024-06-10 16:39 | Outpatient (REF) | payer MEDICAID, SELFPAY ==
[2024-06-10 20:45] LABS: Hemoglobin A1C 7.2 % (<5.7)
[2024-06-10 20:52] LABS: ALT 25 U/L (14-59); AST 18 U/L (15-37); Albumin 3.9 g/dL (3.4-5.0); Alkaline Phosphatase 101 U/L (46-116); BUN 21 mg/dL (7-18); Bilirubin, Total 0.5 mg/dL (0.2-1.0); CREATININE 0.8 mg/dL (0.55-1.02); Calcium 10.2 mg/dL (8.5-10.1); Chloride 101 mmol/L (98-107); Estimated GFR 88.05 (mL/min/1.73m2); Glucose 106 mg/dL (74-106); Lipase 331 U/L (<78); Potassium 5.1 mmol/L (3.5-5.1); Sodium 139 mmol/L (136-145); Total Protein 7.4 g/dL (6.4-8.2)
== END 2024-06-10 16:40 | disposition home or self-care (01) ==
LOC: NCHCN 16:39
PROVIDERS: PCP Family Medicine; Visit Provider Family Medicine
DX: E11.9 Type 2 diabetes mellitus without complications (principal); R11.2 Nausea with vomiting, unspecified
CPT/HCPCS: 80053; 83690; 83036

== ENCOUNTER 2024-06-26 06:05 | Day surgery (SDC) | payer MEDICAID, SELFPAY ==
[2024-06-26 06:15] VITALS: BP 125/70; PULSE 80; RESP 18; TEMP 36.3; O2SAT 100
[2024-06-26] MEDS: Lactated Ringers 1,000 ML 80 ML IV (06:55)
--- NOTE | 2024-06-26 07:19 | ANES.PREOP_ITS ---
General Info Date of Service Date Performed: 06/26/24 Height: 5 ft 3 in Weight: 76.5 kg Body Mass Index (BMI): 29.8 Surgical Procedure: Operation Date: 06/26/24 07:40 Proposed Procedure Side Surgeon p Colonoscopy Jaxon Garcia MD s Excision Anal Skin Tag Jaxon Garcia MD Actual Procedure Side Surgeon p Colonoscopy Not Applicable Jaxon Garcia MD s Excision Anal Skin Tag Not Applicable Jaxon Garcia MD Pre-Op Diagnosis Post-Op Diagnosis (1) Anal skin tag: (2) Encounter for screening colonoscopy: Meds Allergies and Home Medications Allergies Allergy/AdvReac Type Severity Reaction Status Date / Time semaglutide (From Ozempic) Allergy Severe Other (See Verified 06/26/24 06:39 Comment) aspirin Allergy Intermediate lip Verified 06/26/24 06:39 swelling Penicillins Allergy Intermediate lip Verified 06/26/24 06:39 swelling duloxetine HCl (From AdvReac Severe suicidal Verified 06/26/24 06:39 Cymbalta) ideations pregabalin (From Lyrica) AdvReac Severe suidial Verified 06/26/24 06:39 ideations codeine AdvReac Mild Nausea Verified 06/26/24 06:39 apple AdvReac Hives Verified 06/26/24 06:39 Home Medication ?Medication ?Instructions ?Recorded acetaminophen 500 mg capsule 1,000 mg PO Q6H PRN 09/02/23 amlodipine 10 mg tablet 10 mg PO DAILY 09/02/23 clonidine 0.2 mg/24 hr weekly 1 patch transdermal QWEEK 09/02/23 transdermal patch docusate sodium 100 mg capsule 100 mg PO BID PRN 09/02/23 furosemide 40 mg tablet 40 mg PO DAILY 09/02/23 insulin glargine 100 unit/mL 50 unit subcut QPM 09/02/23 subcutaneous solution melatonin 3 mg capsule 6 mg PO HS PRN 09/02/23 metformin 1,000 mg tablet 1,000 mg PO BID 09/02/23 multivitamin with iron 1 tab PO DAILY 09/02/23 naloxone 4 mg/actuation nasal 4 mg intranasal Q2M PRN 09/25/23 spray (Narcan) acetylcysteine 600 mg capsule (NAC) 600 mg PO BID 12/18/23 rosuvastatin 20 mg tablet 20 mg PO DAILY 12/18/23 clopidogrel 75 mg tablet 75 mg PO DAILY 03/18/24 venlafaxine 150 mg tablet,extended 75 mg PO DAILY 03/25/24 release 24 hr sertraline 50 mg tablet 150 mg PO DAILY 03/30/24 varenicline tartrate 1 mg tablet 1 mg PO BID 04/23/24 (Chantix) lorazepam 0.5 mg tablet 0.5 mg PO DAILY PRN 05/23/24 methocarbamol 500 mg tablet 1,000 mg PO QID PRN 05/23/24 umeclidinium 62.5 mcg-vilanterol 1 inh inhalation DAILY 05/23/24 25 mcg/actuation powdr for inhalation (Anoro Ellipta) ammonium lactate 12 % topical cream 1 applic topical DAILY #385 grams 06/03/24 bisacodyl 5 mg tablet,delayed 5 mg PO ONCE colonscopy bowel prep 06/22/24 release (Dulcolax (bisacodyl)) #4 tabs polyethylene glycol 3350 17 238 g PO ONCE colonoscopy prep 06/22/24 gram/dose oral powder #238 grams Current Visit Medications: Current Medications Generic Name Dose Route Start Last Admin Trade Name Freq PRN Reason Stop Dose Admin Ringer's Solution 1,000 mls @ 80 mls/hr 06/26/24 06:00 06/26/24 06:55 IV 06/26/24 23:59 80 mls/hr INFUSION JANNA Administration IV Miscellaneous Supplies 1 each 06/26/24 06:00 Iv Access IV 06/26/24 23:59 DIRECTED JANNA Sodium Chloride 0 ml 06/26/24 06:00 Normal Saline Flush 10 Ml Syr IV 06/26/24 23:59 PRN PRN Sodium Chloride 0 ml 06/26/24 06:00 Normal Saline 10 Ml Vial IJ 06/26/24 23:59 DIRECTED PRN Sterile Water 0 ml 06/26/24 06:00 Water,Injection,Sterile 10 Ml Vial IJ 06/26/24 23:59 DIRECTED PRN PFSH Active Problems Active Problems: Problem Status Onset Code Corns and callosities Acute L84 Dystrophia unguium Acute L60.3 Onychomycosis Acute B35.1 Anal skin tag Acute K64.4 Impairment of speech discrimination Acute H93.299 Cellulitis Acute L03.90 Pain in left foot Acute M79.672 Diabetic ulcer of right foot Acute E11.621, L97.519 Chronic ulcer of right foot Acute L97.519 Non-healing ulcer of right foot Acute L97.519 Ischemic ulcer of right foot Acute L97.519 Pressure ulcer of right foot, unstageable Acute L89.890 Cholesteatoma of right ear Acute H71.91 Impacted cerumen, left ear Acute H61.22 Chronic otitis externa of right ear Acute H60.61 Chronic serous otitis media Acute H65.20 Chronic dysfunction of both eustachian tubes Acute H69.83 Chronic otitis externa of left ear Acute H60.62 Impacted cerumen, bilateral Acute H61.23 Chronic diffuse otitis externa of both ears Acute H60.313 Otorrhea, right ear Acute H92.11 Mass of left ear canal Acute H93.8X2 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 Acute H66.13 Other noninfective acute otitis externa, bilateral Acute H60.593 Tobacco use Acute Z72.0 Mixed hearing loss, bilateral Acute H90.6 Medical History Medical History Hemiparesis affecting left side as late effect of cerebrovascular accident (CVA) Necrotizing fasciitis PAD (peripheral artery disease) Type 2 diabetes mellitus Diabetic neuropathy Essential hypertension Moderate depressive disorder Generalized anxiety disorder Alcohol abuse Edema of lower extremity Hearing loss Cardiopulmonary arrest with successful resuscitation (~06/15/23) At [facility] Complete heart block (~06/17/23) Obesity Chronic abscess of jaw COPD (chronic obstructive pulmonary disease) Surgical History Surgical History History of vascular surgery (R) vascular stenting in leg S/P angioplasty with stent 01/27/24 [facility]; R [id number] popliteal and SFA (Innova Stent x 2) History of skin graft (~07/31/23) at [facility] Incision & Drainage, Abscess or Hematoma left jaw-10/07 Tobacco Smoking/Tobacco Use Status: Current-Occasional Tobacco Type: cigarettes Passive smoking exposure: Yes Alcohol Alcohol Intake: former Substance Use Substance use: Daily Substance use type: marijuana Vital Signs and Lab Results Vital Signs Most Recent Vital Signs in EMR: Most Recent Vital Signs Temp Pulse Resp BP Pulse Ox 36.3 C L 80 18 125/70 100 06/26/24 06:15 06/26/24 06:15 06/26/24 06:15 06/26/24 06:15 06/26/24 06:15 Lab Results Blood Type / Crossmatch: No Data to Display Complete Blood Count: No Data to Display Complete Metabolic Panel: Sodium 139 mmol/L (136-145) 06/10/24 14:20 Potassium 5.1 mmol/L (3.5-5.1) 06/10/24 14:20 Chloride 101 mmol/L (98-107) 06/10/24 14:20 Carbon Dioxide 29.0 mmol/L (21.0-32.0) 06/10/24 14:20 BUN 21 mg/dL (7-18) H 06/10/24 14:20 Creatinine 0.8 mg/dL (0.55-1.02) 06/10/24 14:20 Est GFR (CKD-EPI 2020) 88.05 (mL/min/1.73m2) 06/10/24 14:20 Calcium 10.2 mg/dL (8.5-10.1) H 06/10/24 14:20 Albumin 3.9 g/dL (3.4-5.0) 06/10/24 14:20 Glucose 106 mg/dL (74-106) 06/10/24 14:20 Hemoglobin A1c 7.2 % (<5.7) H 06/10/24 14:20 Liver Function Panel: Alanine Aminotransferase (ALT/SGPT) 25 U/L (14-59) 06/10/24 14: 20 Aspartate Amino Transf (AST/SGOT) 18 U/L (15-37) 06/10/24 14:20 Coagulation Panel: No Data to Display Cardiac Panel: No Data to Display Arterial Blood Gas: No Data to Display Venous Blood Gas: No Data to Display Pancreas Panel: Lipase 331 U/L (<78) H 06/10/24 14:20 Thyroid Panel: No Data to Display Infectious Disease: No Data to Display Blood Cultures: No Data to Display Toxicology Panel: No Data to Display Panel: No Data to Display Imaging and Studies Imaging and Studies Study information below may be from another EMR and interpreted by another provider. Please see original notes in EMR for more complete details. EKG Summary: 05/22/24: Exam: Resting ECG Reason for Exam: Abdominal Pain Patient Location: E HR:91 bpm ECG Measurements Heart Rate 91 AXIS NM 171 P 64 QRSd 92 QRS 68 QT 378 T74 QTc 465 Conclusion Sinus rhythm...normal P axis, V-rate 60- 99 Probable left atrial enlargement...P >50mS, <-0.10mV V1 Probable lateral infarct, age indeterminate...Q >35mS, T neg, V5-V6 I aVL Pulmonary Function Summary: 05/10/24: Pulmonary Function Test Result Indications: Dyspnea Interpretation Spirometry: There is no airflow limitation. No significant bronchodilator response. Lung Volumes: Normal lung volumes Diffusion Capacity: Decreased diffusion Airway Pressure: Normal airways resistance Impression Isolated diffusion deficit. Clinical Correlation therefore is recommended. Anesthesia Assessment and Plan Anesthesia History Personal History: No History of Anesthesia Complications Family History: Family History Unknown Exercise Tolerance Exercise Tolerance: Metabolic Equivalents>4 Cardiac & Pulmonary Exam Cardiac Exam: Heart Murmur Present Pulmonary Exam: Clear Bilateral Breath Sounds Implantable Cardiac Device Does patient have a Pacemaker or an ICD?: No Airway Exam Known Difficult Airway: No Mallampati Class: 3 Mouth Opening: Normal (> 3cm) Thyromental Distance: Greater than 3 cm Neck Range of Motion: Full ROM Neck Circumference: Normal Teeth Condition: Generalized Poor Dentition, Removable Dentures/Plates Upper and Removable Dentures/Plates Lower ASA Classification ASA Score: ASA 3 Emergency Case?: No NPO Status NPO Status: NPO Clears >2 hours, Solids >8 hours Status Status: Not Relevant due to Medical History Anesthesia Plan Resuscitation Status: Full Code Anesthesia Technique: General Anesthesia Airway Planned: Natural Airway Monitors Used: Standard Monitors
[2024-06-26 07:21] VITALS: BMI 29.8
--- NOTE | 2024-06-26 07:40 | SCONE_ITS ---
Date of service: 06/26/24 Time of Service: 07:40 Assessment and Plan Assessment and plan (1) Encounter for screening colonoscopy: Status: Acute Assessment and plan: 53-year-old woman due for her for screening colonoscopy. Unclear what we will do about the skin tag but we will assess it under anesthesia. It is probably related to her skin graft and her prior infection in this region and I am not sure we will excise it. I explained this to her carefully and in detail and she expresses an understanding. Overall plan: Screening colonoscopy. History of Present Illness Narrative: 53-year-old woman presents for a screening colonoscopy. No prior colonoscopy. She does not have a family history of colon cancer. She reportedly has a skin tag around her perineum since having necrotizing fasciitis hospitalization and intervention with reported skin graft. FOR[facility]LY [facility] All Active Problems (Updated 06/26/24 @ 07:41 by Jaxon Garcia MD) Encounter for screening colonoscopy (Acute) Corns and callosities (Acute) Dystrophia unguium (Acute) Onychomycosis (Acute) Anal skin tag (Acute) Impairment of speech discrimination (Acute) Cellulitis (Acute) Pain in left foot (Acute) Diabetic ulcer of right foot (Acute) Chronic ulcer of right foot (Acute) Non-healing ulcer of right foot (Acute) Ischemic ulcer of right foot (Acute) Pressure ulcer of right foot, unstageable (Acute) Cholesteatoma of right ear (Acute) Impacted cerumen, left ear (Acute) Chronic otitis externa of right ear (Acute) Chronic serous otitis media (Acute) Chronic dysfunction of both eustachian tubes (Acute) Chronic otitis externa of left ear (Acute) Impacted cerumen, bilateral (Acute) Chronic diffuse otitis externa of both ears (Acute) Otorrhea, right ear (Acute) Mass of left ear canal (Acute) 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 (Acute) Other noninfective acute otitis externa, bilateral (Acute) Tobacco use (Acute) Mixed hearing loss, bilateral (Acute) Medical History (Updated 06/26/24 @ 07:41 by Jaxon Garcia MD) Hemiparesis affecting left side as late effect of cerebrovascular accident (CVA) Necrotizing fasciitis PAD (peripheral artery disease) Type 2 diabetes mellitus Diabetic neuropathy Essential hypertension Moderate depressive disorder Generalized anxiety disorder Alcohol abuse Edema of lower extremity Hearing loss Cardiopulmonary arrest with successful resuscitation (~06/15/23) At [facility] Complete heart block (~06/17/23) Obesity Chronic abscess of jaw COPD (chronic obstructive pulmonary disease) Surgical History History of vascular surgery (R) vascular stenting in leg S/P angioplasty with stent 01/27/24 [facility]; R [id number] popliteal and SFA (Innova Stent x 2) History of skin graft (~07/31/23) at [facility] Incision & Drainage, Abscess or Hematoma left jaw-10/07 Social History Smoking/Tobacco Use Status: Current-Occasional Tobacco Type: cigarettes Smoking risk assessment performed?: Yes Alcohol Intake: former Drug use: Daily Substance use type: marijuana Housing: apartment Do you feel safe at home: Yes Do you feel safe in your relationship?: Yes Additional Social history: Lives with [facility] partner Teja Victor in [facility]. One cat at home. Exam Narrative Exam Narrative: Gen: Non-toxic, comfortable and interactive Neuro: Alert and oriented x3 Psych: Good mood and affect. Good insight and understanding into condition. Chest: Non-labored breathing, no wheezing, no visible shortness of breath. Heart: Regular Results Last Vital Signs Temp 97.3 F L 06/26/24 06:15 Pulse 80 06/26/24 06:15 Resp 18 06/26/24 06:15 BP 125/70 06/26/24 06:15 Pulse Ox 100 06/26/24 06:15
--- NOTE | 2024-06-26 08:10 | BOWEL_PTH ---
PATIENT: Jennifer James LOC: VI U#:[id number] AGE/SX: 53/F ROOM: RE06/26/[address]: Jaxon Garcia : 1970 BED: DIS: 06/26/2024 SPEC #: [id number] RECD: 06/26/24 10:05 STATUS: YOKASTA REAbhay #: [id number] JENNI: 06/26/24 08:[address]: Jaxon Garcia DEPT: Surgical Specimen RECD BY: Kelly La ENTERED: 06/26/24 10:09 SP TYPE: Bowel OTHR DR: Janelle Huitron Tissues: 1 - BIOPSY BOWEL 2 - BIOPSY BOWEL 3 - BIOPSY BOWEL 4 - BIOPSY BOWEL Procedures: GROSS AND MICRO LEVEL 4 Comments: [id number]
[2024-06-26 08:46] VITALS: BP 158/90; PULSE 98; RESP 17; TEMP 36.1; O2SAT 100
--- NOTE | 2024-06-26 09:01 | W.COLOREPORT ---
Date of service: 06/26/24 Time of Service: 09:01 Colonoscopy Report Procedure Description: PROCEDURES PERFORMED: 1. Colonoscopy with hot snare polypectomy x5 2. Ablation/fulguration/destruction of polyps x 8 PREOPERATIVE DIAGNOSIS: Screening colonoscopy, perianal skin tag POSTOPERATIVE DIAGNOSIS: Colon polyps, minimal sigmoid diverticulosis, grade 1 internal hemorrhoids, perineum skin tag(s) and scar tissue SURGEON: Binh Garcia MD INDICATION for procedure: 53-year-old woman due for her for screening colonoscopy. No significant family history of concern. No symptoms of concern. 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 Some of that scar tissue and redundant tissue bothers her and she was hopeful it could be excised. FINDINGS: Normal terminal ileum. In the cecum, 2 polyps were ablated/destroyed with the tip of the hot snare. They were small but adenomatous in appearance. The proximal transverse colon a 3-5 mm sessile polyp was removed with hot snare technique. 2 other small 2-3 mm polyps were ablated/destroyed at the tip of the hot snare. In the distal transverse colon another 3-5 mm sessile polyp was removed with hot snare technique. There are mild diverticular changes in the sigmoid colon only. A 3-5 mm pedunculated polyp was removed with hot snare from the sigmoid colon. 1 small 2-3 mm sessile polyp was ablated with the tip of the hot snare. In the proximal rectum, 2 pedunculated 3-5 mm polyps were removed with hot snare technique. 3 small 2-3 mm flat polyps were ablated with the tip of the hot snare. Grade 1 internal hemorrhoid disease appreciated. The patient has extensive scar tissue and skin grafting in the perineum as well as the perianal regions. Overall everything is healing nicely but there is some redundant tissue as well as some scarred, hypertrophic tissue. It is understandable that this probably affects and bothers her to some extent however considering the history, I do NOT recommend any surgical efforts at revision or excision here considering the possibility of re? developing an infection or simply having more scar tissue formed. If she wants a second opinion, she should go see her tertiary care center surgeons though I am confident their recommendations will be the same. No excision was performed today. SURVEILLANCE interval/FOLLOW-UP: Follow-up in 3 years for another colonoscopy. SPECIMENS: yes EBL: Minimal COMPLICATIONS: None QUALITY of prep: Excellent Procedure in detail: The patient gave written consent and was in agreement with the indications, the potential risks as well as the benefits of the procedure. They were taken to the endoscopy suite and laid in the left lateral decubitus position. A timeout was performed and anesthesia was administered which was tolerated well. I started the procedure. Digital rectal and visual examination was performed. There is significant soft?tissue disfigurement throughout the entire perineum extending well into the right gluteal region and certainly around the perianal region as well. There is visualized skin grafts that are well?healed as well as significant scar tissue present. There is both redundancy as well as expected scar?tissue firmness to various aspects of this new tissue. A well-lubricated flexible colonoscope was then introduced and passed without any notable difficulty all the way to the cecum identified by the ileocecal valve and the appendiceal orifice. The terminal ileum is intubated and looked normal. The scope was then slowly withdrawn with the above-noted findings. I did NOT perform any excision of any tissue around the anus or in the perineum after considering the risks associated with doing such. The patient tolerated the procedure well and was taken to the PACU in hemodynamically stable condition.
--- NOTE | 2024-06-26 09:02 | W.ANESPOSTOP ---
Postoperative Evaluation Date, Time and Location Date Performed: 06/26/24 Time Performed: 09:00 Patient Location: Day Surgery Unit Vital Signs Most Recent Imported Vital Signs: Most Recent Vital Signs Temp Pulse Resp BP Pulse Ox 36.1 C L 98 H 17 158/90 H 100 06/26/24 08:46 06/26/24 08:46 06/26/24 08:46 06/26/24 08:46 06/26/24 08:46 Pain Score Most Recent Pain Score: Most Recent Pain Score Pain Level 5 06/26/24 08:46 Assessment Mental Status: Awake (Alert & Oriented to Patient Baseline) Airway and Respiratory Function: Patent airway with normal (patient baseline) respiratory exam Cardiovascular Function: Hemodynamically Stable Hydration Status: Adequately Hydrated Nausea & Vomiting: No Nausea or Vomiting Pain: Pt. Denies Any Pain Peripheral Nerve Block: Patient did not receive a nerve block
--- NOTE | 2024-06-26 09:04 | W.PM.DSUDISC ---
Date of service: 06/26/24 Discharge Plan Disposition Patient Disposition: Home Condition: Good Discharge Details Attending Provider: Jaxon Garcia Primary Care Provider: Janelle Huitron Home Meds and New Rx's Prescriptions: No Action acetaminophen 500 mg capsule 1,000 mg PO Q6H PRN amlodipine 10 mg tablet 10 mg PO DAILY clonidine 0.2 mg/24 hr patch weekly 1 patch transdermal QWEEK docusate sodium 100 mg capsule 100 mg PO BID PRN furosemide 40 mg tablet 40 mg PO DAILY insulin glargine 100 unit/mL solution 50 unit subcut QPM melatonin 3 mg capsule 6 mg PO HS PRN metformin 1,000 mg tablet 1,000 mg PO BID multivitamin with iron Tablet 1 tab PO DAILY naloxone [Narcan] 4 mg/actuation spray,non-aerosol 4 mg intranasal Q2M PRN Rx Instructions: spray 1 dose into ONE nostril; alternate nostrils w each dose until help arrives ammonium lactate 12 % cream 1 applic topical DAILY Qty: 385 5RF Rx Instructions: Apply to nails and calluses, at opposite time of ketoconazole. If ammonium lactate is not covered purchase OTC Urea 20%. acetylcysteine [NAC] 600 mg capsule 600 mg PO BID rosuvastatin 20 mg tablet 20 mg PO DAILY varenicline tartrate [Chantix] 1 mg tablet 1 mg PO BID clopidogrel 75 mg tablet 75 mg PO DAILY venlafaxine 150 mg tablet extended release 24hr 75 mg PO DAILY sertraline 50 mg tablet 150 mg PO DAILY Patient Comments: actively being tapered- to be stopped by 04/25/24. polyethylene glycol 3350 17 gram/dose powder 238 g PO ONCE Qty: 238 0RF Rx Instructions: take per colonoscopy instructions bisacodyl [Dulcolax (bisacodyl)] 5 mg tablet,delayed release (DR/EC) 5 mg PO ONCE Qty: 4 0RF Rx Instructions: take per colonoscopy instructions methocarbamol 500 mg tablet 1,000 mg PO QID PRN Patient Comments: TAKE TWO TABLETS BY MOUTH FOUR TIMES A DAY NEEDED FOR MUSCLE CRAMPS Anoro Ellipta 62.5-25 mcg/actuation blister with device 1 inh INHALATION DAILY Patient Comments: INHALE ONE PUFF BY MOUTH EVERY DAY lorazepam 0.5 mg tablet 0.5 mg PO DAILY PRN Patient Comments: TAKE ONE TABLET BY MOUTH EVERY DAY NEEDED +MAX 10 TABLETS PER MONTH+ Discharge Instructions Additional Instructions: FINDINGS: A number of polyps were found in your colon today. They are nothing to worry about but this is why we do the colonoscopies. They were removed. They get tested. You need to have another colonoscopy in 3 years because of how many polyps were found. Mild diverticulosis was found. This is extremely common, benign and nothing needs to be done about it. The skin tag which really bothers you is probably related, somewhat, to the skin grafting tissue and the scar tissue from your previous infection. Removing this has some significant risk since that tissue does not have the typical and usual blood supply and is high?risk for having another infection like you had before. At this time I do not recommend removing it without some very serious consideration to the risks of potentially having a surgical procedure in this region. I recommend you follow-up with your physicians at [facility] who did your skin graft to decide whether or not that can be performed safely. Stand Alone Forms: Anesthesia Discharge Inst., Colonoscopy Post Instructions, Hayde Melvin (DSU) Activity:: Activity as Tolerated Diet:: As Tolerated Discharge Orders Discharge Orders: Discharge Order (Routine); Ordered 06/26/24 Ordered By: Jaxon Garcia DS: Diagnosis Discharge Diagnosis (1) Encounter for screening colonoscopy: Status: Acute
[2024-06-26 09:25] VITALS: BP 162/88; PULSE 89; RESP 17; TEMP 36.3; O2SAT 100
== END 2024-06-26 09:34 | disposition home or self-care (01) ==
PROVIDERS: PCP Family Medicine; Visit Provider Student in an Organized Health Care Education/Training Program
PROC: 0DJD8ZZ Inspection of Lower Intestinal Tract, Via Natural or Artificial Opening Endoscopic (ICD-10-PCS; CPT 45378; principal; 2024-06-26 07:30)
DX: Z12.11 Encounter for screening for malignant neoplasm of colon (principal); K57.30 Diverticulosis of large intestine without perforation or abscess without bleeding; K64.0 First degree hemorrhoids; D12.3 Benign neoplasm of transverse colon; K64.4 Residual hemorrhoidal skin tags; D12.5 Benign neoplasm of sigmoid colon; D37.5 Neoplasm of uncertain behavior of rectum
CPT/HCPCS: 45385; 88305; J2003; J2704

== ENCOUNTER 2024-07-21 01:34 | Outpatient (CLI) | payer MEDICAID, SELFPAY ==
--- NOTE | 2024-07-21 09:38 | DI.RAD_ITS ---
Exam(s) XR KNEE LT 3V AP,LAT,SHANKAR EXAM: XR KNEE LT 3V AP,LAT,SHANKAR CLINICAL HISTORY: M25.562 Pain in left knee. TECHNIQUE: 2D digital imaging was performed. COMPARISON: No exams were available for comparison FINDINGS: 3 views No evidence of fracture nor obvious joint effusion. No obvious degenerative changes in the knee. No joint space narrowing. No loose intra-articular bodies. No osteochondral defects. There appears to be an element of osteopenia in the visualized bones. There is also arterial calcifi cation indicating atherosclerotic involvement of the femoral and popliteal arteries. Also calf runof f arteries. IMPRESSION: No acute osseous findings in the knee. However, there are other findings as above. DATA REPOSITORY: RADIATION DOSE DELIVERED:
== END 2024-07-21 01:54 ==
LOC: DI 01:34
PROVIDERS: PCP Family Medicine; Visit Provider Family Medicine
DX: M25.562 Pain in left knee (principal)
CPT/HCPCS: 73562

== ENCOUNTER 2024-08-26 02:21 | Outpatient (CLI) | payer MEDICAID, SELFPAY ==
--- NOTE | 2024-08-26 | DI.CTLCSR_ITS ---
Exam(s) CT CHEST LUNG CANCER SCREEN EXAM: CT CHEST LUNG CANCER SCREEN CLINICAL HISTORY: CURRENT SMOKER, F17.210. TECHNIQUE: Imaging Protocol: Low Dose Technique CONTRAST MATERIAL: None COMPARISON: CR RIGHT RIBS TO INCLUDE CXR from 09/19/[address] ABDOMEN PELVIS W from 05/22/2024 FINDINGS: CHEST: LUNGS: There are no ominous right lung pulmonary nodules. In the left lower lobe there is a 3-4 mm nodule noted. No other left lung nodules. No infiltrates nor pleural effusions. No significant focal findings in the trachea and mainstem bronchi. MEDIASTINUM: There is no obvious hilar nor mediastinal adenopathy. CARDIAC: Heart size is normal. There is no pericardial effusion.Caliber of the thoracic aorta is within normal limits. OTHER: No significant adrenal findings. OSSEOUS: There are multiple healed right-sided rib fractures. There is also a healed mid sternal body fracture. No acute fractures evident. No vertebral fractures. IMPRESSION: 1. There is a solitary 3-4 mm noncalcified nodule in the left lower lobe. Recommend repeat CT scan in 6 months. 2. No other focal lung findings nor pleural effusions nor intrathoracic adenopathy. Multiple healed right-sided rib fractures noted. 3. Lung RADS Cat 3 - Probably Benign: Probably benign finding(s) - short term follow-up suggested; include nodules with a low likelihood of becoming a clinically active cancer. Lung-RADS 1.0 CATEGORIES: Category 0 - Prior chest CT exam(s) being located for comparison. Category 1 - Annual screening in 12 months. No nodules or definitely benign nodules. Category 2 - Annual screening in 12 months. Benign appearance. Nodules with low likelihood of becoming active cancer. Category 3 - 6-month follow-up. Probably benign. Short-term follow-up suggested. Nodules with low likelihood of becoming active cancer. Category 4A - 3-month follow-up and CT/PET if >8 mm in size. Suspicious finding. Findings which require additional testing. Category 4B - Findings which require additional testing and tissue sampling. Category 4X - Category 3 or 4 nodules with additional features or imaging findings that increases the suspicion of malignancy. Modifier S- Potentially clinically significant findings (non lung cancer) RADIATION DOSE DELIVERED: 27.93mGy.cm Total DLP DATA REPOSITORY: All CT scans at this facility are submitted to the National Radiology Data Registry (NRDR) Dose Index Registry (DIR) with the [employer] (A[employer]). RADIATION OPTIMIZATION: All CT scans at this facility use at least one of these dose optimization techniques: automated exposure control; mA and/or kV adjustment per patient size (includes targeted exams where dose is matched to clinical indication); or iterative reconstruction.
--- NOTE | 2024-08-26 | DI.MAMMO_ITS ---
Exam(s) MAMMO SCREENING EXAM: MAMMO SCREENING CLINICAL HISTORY: SCREENING, Z12.31 TECHNIQUE: Mammograms were interpreted according to the usual protocol including computer analysis with CAD system, tomosynthesis and C-view imaging. COMPARISON: No exams were available for comparison. Baseline examination. FINDINGS: The breasts are composed of scattered fibroglandular densities, Breast Density category B. No suspicious masses or suspicious microcalcifications are seen. No skin thickening or abnormal axillary lymph nodes are seen. IMPRESSION: BI-RADS Category 1, Negative mammogram Yearly screening mammography is recommended. Breast Density - Category B - There are scattered areas of fibroglandular density. Breast density Category C or D implies that the patient has dense breast tissue. Dense breast tissue can make it harder to find cancer on a mammogram. Dense breast tissue is also associated with an increased risk of breast cancer. This information about the result of the mammogram report was provided to the patient to raise their awareness. Use this report when you speak with the patient about their risks for breast cancer, which includes their family history. At that time, you may recommend additional screening tests (Ultrasound or MRI) as these tests may add significant information. A negative radiographic report should not delay biopsy if a dominant or clinically suspicious mass is present. Up to ten percent of cancers are not identified on mammography. A negative report may reinforce clinical impression. Adenosis and dense breasts may obscure an underlying neoplasm. False positive reports average 6 to 10%. Patient will receive a letter notifying them of these results.
== END 2024-08-26 02:41 ==
LOC: DI 02:21
PROVIDERS: PCP Family Medicine; Visit Provider Family Medicine
DX: Z12.31 Encounter for screening mammogram for malignant neoplasm of breast (principal); Z12.2 Encounter for screening for malignant neoplasm of respiratory organs; F17.210 Nicotine dependence, cigarettes, uncomplicated; R91.8 Other nonspecific abnormal finding of lung field
CPT/HCPCS: 71271; 77063; 77067

== ENCOUNTER 2024-11-17 16:02 | Outpatient (REF) | payer MEDICAID, SELFPAY ==
[2024-11-17 20:00] LABS: Abs Immature Grans 0.08 10^3/uL (0.0-0.06); HCT 39.6 % (36.0-46.0); HGB 13.1 g/dL (11.2-15.7); Immature Grans % 0.8 %; MCH 28.0 pg (27.0-33.0); MCHC 33.1 % (32.0-36.0); MCV 85 fL (80-95); MPV 11.3 fL (8.0-11.0); Platelet Count 298 10^3/uL (130-400); RBC 4.68 10^6/uL (3.93-5.22); RDW 14.6 % (11.7-14.6); RDW-SD 44.7 fL; WBC 9.49 10^3/uL (4.4-10.8)
[2024-11-17 20:18] LABS: INR 1.0 (0.9-1.1); Prothrombin Time 9.9 sec (9.1-11.1)
[2024-11-17 20:24] LABS: ALT 18 U/L (14-59); AST 9 U/L (15-37); Albumin 3.6 g/dL (3.4-5.0); Alkaline Phosphatase 105 U/L (46-116); Anion Gap 12.6 mmol/L (3-11); BUN 26 mg/dL (7-18); Bilirubin, Total 0.3 mg/dL (0.2-1.0); CO2 27.4 mmol/L (21.0-32.0); Calcium 9.7 mg/dL (8.5-10.1); Chloride 98 mmol/L (98-107); Estimated GFR 87.50 (mL/min/1.73m2); Glucose 109 mg/dL (74-106); Potassium 3.8 mmol/L (3.5-5.1); Sodium 138 mmol/L (136-145); Total Protein 7.2 g/dL (6.4-8.2)
== END 2024-11-17 16:03 | disposition home or self-care (01) ==
LOC: NCHCN 16:02
PROVIDERS: PCP Family Medicine; Visit Provider Family Medicine
DX: I10 Essential (primary) hypertension (principal)
CPT/HCPCS: 80053; 85025; 85610